=== PATIENT | male | born 1945 | race Caucasian/White ===

== ENCOUNTER 2017-01-25 15:38 | Inpatient (IN) ==
[2017-01-25 17:23] LABS: Hematocrit 27.8 % (37.5-50.1); Immature Granulocytes % 0.4 % (0-4); Immature Platelets 3.8 % (1.1-6.1); Lymphocytes % 5.3 %; Mean Corpuscular HGB Conc 28.8 g/dL (31.6-35.5); Mean Corpuscular Hemoglobin 22.5 pg (28.0-33.3); Mean Corpuscular Volume 78.3 fL (83.0-100.0); Mean Platelet Volume 9.2 fL (9.4-12.4); Monocytes % 10.8 %; Platelet Count 487 K/mcL (140-400); Red Blood Count 3.55 M/mcL (4.19-5.50); Red Cell Distribution Width 17.9 % (11.5-14.5)
[2017-01-25 17:24] LABS: Basophils # 0.1 K/mcL (0.0-0.2); Basophils % 0.6 %; Eosinophils # 0.2 K/mcL (0.0-0.6); Eosinophils % 1.9 %; Lymphocytes # 0.5 K/mcL (0.6-4.6); Monocytes # 1.1 K/mcL (0.0-1.3); Neutrophils # 8.1 K/mcL (1.6-8.9); Nucleated Red Blood Cells 0.3 /100 WBC (0)
--- NOTE | 2017-01-25 17:31 | Emergency Department Note ---
Disposition Clinical Impression: Acute congestive heart failure Qualifiers: Congestive heart failure type: unspecified congestive heart failure type Qualified Code(s): I50.9 - Heart failure, unspecified Disposition: Admitted As Inpatient Condition: Critical General Adult HPI - General Chief complaint: ED Shortness of Breath/Dyspnea Stated complaint: Chest Pain Time Seen by Provider: 01/25/17 15:53 Source: patient, family Nursing Notes Reviewed: Yes Vital Signs Reviewed: Yes - History of Present Illness HPI Narrative: Mr. Diaz, 71-year-old male, presents from home by POV with chief complaint of dyspnea and increased swelling. Both dyspnea and increased edema onset 2 days ago. Patient notes dyspnea with light exertion, improved by rest, not improved with this standard inhaler regimen. Patient and daughter note increased swelling such that he has weeping from his umbilicus. Patient also notes melanotic stools 2 days with increased fatigue, worse with light exertion. Patient is a poor historian with daughter providing history with patient corroborating. PMH: A. fib on Xaralto, CHF, hypertension, hyperlipidemia, COPD, history of noncompliance. Belt Fixer = Dr. Long Pain Scale: 0 - Related Data Home Medications Medication Instructions Recorded Confirmed Amiodarone [Cordarone] 200 mg PO DAILY 04/28/15 01/25/17 Aspirin 81 mg PO DAILY 04/28/15 05/10/16 Atorvastatin [Lipitor] 40 mg PO HS 04/28/15 01/25/17 Citalopram [CeleXA] 40 mg PO DAILY 04/28/15 01/25/17 Docosahexanoic Acid/Epa [Fish Oil 1 each PO DAILY 04/28/15 05/10/16 Concentrate Softgel] Ferrous Sulfate 325 mg PO BIDWM 04/28/15 05/10/16 Furosemide [Lasix] 40 mg PO DAILY 04/28/15 01/25/17 Garlic 1,000 mg PO DAILY 04/28/15 05/10/16 GlipiZIDE XL (24 HR) [Glucotrol XL] 20 mg PO QAM 04/28/15 01/25/17 Insulin DETEMIR [Levemir] 70 units SQ QAM AND QHS 04/28/15 01/25/17 Meclizine [Antivert] 12.5 - 25 tab PO Q4HR PRN 04/28/15 01/25/17 Rivaroxaban [Xarelto] 20 mg PO 1700 04/28/15 01/25/17 SitaGLIPtin [Januvia] 100 mg PO DAILY 04/28/15 01/25/17 Solifenacin Succinate [Vesicare] 5 mg PO DAILY 04/28/15 01/25/17 Albuterol Sulfate [Proair Hfa] 2 puff IH Q4H PRN 01/25/17 01/25/17 Budesonide/Formoterol 160/4.5 2 puff IH BIDR 01/25/17 01/25/17 [Symbicort 160/4.5] Metformin HCl [Glucophage] 1,000 mg PO BIDWM 01/25/17 01/25/17 Metoprolol Succinate 200 mg PO DAILY 01/25/17 01/25/17 Tiotropium [Spiriva] 18 mcg IH 0700 01/25/17 01/25/17 Allergies Allergy/AdvReac Type Severity Reaction Status Date / Time bupropion [From Wellbutrin] Allergy Difficulty Verified 04/28/15 08:53 Breathing codeine Allergy Difficulty Verified 04/28/15 08:53 Breathing Opioids-Meperidine and Allergy Difficulty Verified 04/28/15 08:53 Related Breathing [Opioids-Meperidine & Related] All systems ED: reviewed and negative except as stated. Constitutional: Reports: weakness. Denies: fever, chills Cardiovascular: Reports: chest pain, palpitations, dyspnea on exertion, edema. Denies: syncope Respiratory: Reports: cough. Denies: dyspnea, wheezes, hemoptysis Gastrointestinal: Reports: abdominal pain, nausea, melena. Denies: vomiting, diarrhea, constipation, hematemesis, hematochezia Genitourinary: Denies: urgency, dysuria Musculoskeletal: Denies: back pain Neurological: Reports: weakness. Denies: headache, numbness, paresthesias, vertigo Past Medical History - Past Medical History Medical history: Reports: arthritis, atrial fibrillation, CHF, COPD, diabetes, hyperlipidemia, hypertension Surgical history: Reports: pacemaker/AICD Psychiatric history: Reports: no psych history - Social History Smoking Status: Current every day smoker Smokeless Tobacco Status: No Alcohol use: Reports: none Drug use: Reports: none Physical Exam Vital signs reviewed: Patient tachycardic, tachypneic, systolic of 101, appropriate O2 saturation on room air. General: Patient is alert, oriented, and in moderate distress. 5-6 word conversational dyspnea. HEENT: No facial asymmetry. Head is normocephalic and atraumatic. Trachea midline. Cardiovascular: Heart regular rate and rhythm without clicks, rubs, gallops, or murmurs. No JVD. 3+ pitting edema in the bilateral lower extremities this extends just above the umbilicus with weeping evident from the umbilicus. Respiratory: Symmetric chest rise with poor respiratory effort. Bilateral breath sounds have diffuse wheeze without crackles or rhonchi. Abdomen: Morbidly obese. Bowel sounds present normoactive x-4 quadrants. Abdomen is soft, nondistended, and nontender. Able to assess organomegaly given patient's body habitus. Psych: Patient's affect is appropriate for situation. - General General appearance: alert Course Course Narrative: Initial concern was for congestive heart failure with possible component of pulmonary edema as well as upper GI bleed from xaralto. With assistance, patient was laid supine for rectal exam. He became dyspneic but O2 saturation stayed above 92. When raised to a seated position with heavy assistance, patient was dyspneic, O2 saturations drops to the high 80s. He was placed on 2 L nasal cannula where his O2 sats improved to 97-98%. Informal FOBT positive. formal FOBT negative. Patient is anemic with hemoglobin 8.0. BNP 599. Echo O05/11/2016: Technically suboptimal due to body habitus. Normal LV systolic function with LVEF 55-60%. Mild pulmonary hypertension. Patient vital signs remained stable and O2 saturation is maintained on 2 L nasal cannula. Spoke with the hospitalist, , who agrees to accept the patient. Vital Signs Temperature 97.6 F 01/25/17 15:39 Pulse Rate 106 01/25/17 15:39 Respiratory Rate 20 01/25/17 15:39 Blood Pressure 106/71 01/25/17 15:39 O2 Sat by Pulse Oximetry 95 01/25/17 15:39 Temperature 97.6 F 01/25/17 15:39 Pulse Rate 88 01/25/17 20:00 Respiratory Rate 12 01/25/17 20:00 Blood Pressure 111/65 01/25/17 20:00 O2 Sat by Pulse Oximetry 95 01/25/17 20:00 Oxygen Delivery Oxygen Delivery Nasal Cannula Medical Decision Making - Medical Records Medical records reviewed: Yes I reviewed the patient's medical records. - Lab Data Lab results reviewed: Yes I reviewed the patient's lab results. Result diagrams: 01/25/17 17:03 01/25/17 17:03 Lab Results 01/25/17 01/25/17 01/25/17 Range/Units 17:03 17:03 17:03 WBC 10.0 (4.3-11.1) K/mcL RBC 3.55 L (4.19-5.50) M/mcL Hgb 8.0 L (12.9-16.9) g/dL Hct 27.8 L (37.5-50.1) % MCV 78.3 L (83.0-100.0) fL MCH 22.5 L (28.0-33.3) pg MCHC 28.8 L (31.6-35.5) g/dL RDW 17.9 H (11.5-14.5) % Plt Count 487 H (140-400) K/mcL MPV 9.2 L (9.4-12.4) fL Immature Gran % 0.4 (0-4) % Seg Neutrophils % 81.0 % Lymphocytes % 5.3 % Monocytes % 10.8 % Eosinophils % 1.9 % Basophils % 0.6 % Neutrophils # 8.1 (1.6-8.9) K/mcL Lymphocytes # 0.5 L (0.6-4.6) K/mcL Monocytes # 1.1 (0.0-1.3) K/mcL Eosinophils # 0.2 (0.0-0.6) K/mcL Basophils # 0.1 (0.0-0.2) K/mcL Nucleated RBCs/100 WBC 0.3 H (0) /100 WBC Immature Plt Fraction 3.8 (1.1-6.1) % Sodium 140 (136-145) mEq/L Potassium 3.3 L (3.5-4.5) mEq/L Chloride 103 (98-109) mEq/L Carbon Dioxide 27 (19-29) mEq/L BUN 38 H (8-26) mg/dL Creatinine 1.16 (0.72-1.25) mg/dL Est GFR ( Amer) > 60 (> 60) Est GFR (Non-Af Amer) > 60 (> 60) BUN/Creatinine Ratio 33 H (6-26) Glucose 176 H (70-99) mg/dL Calculated Osmolality 303 H (280-300) Calcium 8.4 L (8.6-10.8) mg/dL Troponin I 0.02 (0-0.03) ng/mL B-Natriuretic Peptide (0-100) pg/mL Stool Occult Blood (Negative) Blood Type Antibody Screen 01/25/17 01/25/17 01/25/17 Range/Units 17:03 17:10 18:33 WBC (4.3-11.1) K/mcL RBC (4.19-5.50) M/mcL Hgb (12.9-16.9) g/dL Hct (37.5-50.1) % MCV (83.0-100.0) fL MCH (28.0-33.3) pg MCHC (31.6-35.5) g/dL RDW (11.5-14.5) % Plt Count (140-400) K/mcL MPV (9.4-12.4) fL Immature Gran % (0-4) % Seg Neutrophils % % Lymphocytes % % Monocytes % % Eosinophils % % Basophils % % Neutrophils # (1.6-8.9) K/mcL Lymphocytes # (0.6-4.6) K/mcL Monocytes # (0.0-1.3) K/mcL Eosinophils # (0.0-0.6) K/mcL Basophils # (0.0-0.2) K/mcL Nucleated RBCs/100 WBC (0) /100 WBC Immature Plt Fraction (1.1-6.1) % Sodium (136-145) mEq/L Potassium (3.5-4.5) mEq/L Chloride (98-109) mEq/L Carbon Dioxide (19-29) mEq/L BUN (8-26) mg/dL Creatinine (0.72-1.25) mg/dL Est GFR ( Amer) (> 60) Est GFR (Non-Af Amer) (> 60) BUN/Creatinine Ratio (6-26) Glucose (70-99) mg/dL Calculated Osmolality (280-300) Calcium (8.6-10.8) mg/dL Troponin I (0-0.03) ng/mL B-Natriuretic Peptide 599 H (0-100) pg/mL Stool Occult Blood Negative (Negative) Blood Type O POSITIVE Antibody Screen NEGATIVE - Radiology Data Radiology results reviewed: Yes I reviewed the patient's radiology results. - EKG Data EKG #1 EKG attestation: Yes I reviewed and interpreted this EKG. EKG results narrative: EKG gated 01/25/17 at 15:44 interpreted as sinus tachycardia with rate of 104. [place] deviation with right bundle branch block. Nonspecific ST T changes. Compared to previous dated 05/10/16 shows no acute ischemic changes comparison. Attestation Statement - Attestation Attestation: I examined this patient and my medical decision-making was reviewed with the DIAMOND SETTER/PA/Advanced Practice Nurse/Resident Physician. I agree with the documented findings, disposition and treatment plan as described except to the extent set forth below. 71 yo male presents with SOB and weakness. Pt reports eating a large meal with a large amt of salt 3 days ago. Pt has since developed bilateral LE edema which has reached his abdomen. Family became concerned when his abdomen started to weep fluid. Pt reports loose stools for the past month which are described as dark but denies hematochezia or melena. Rectal exam by resident revealed an empty rectal vault with guiac positive stool. PE shows bilateral + 3 pitting edema to the LE and +2 pitting edema to the lower abdomen. Hgb 8.0. trop negative. elevated BNP. Pt given lasix in the ED and admitted for CHF and GI bleeding on xarelto.
[2017-01-25 17:36] LABS: BUN/Creatinine Ratio 33 (6-26); Blood Urea Nitrogen 38 mg/dL (8-26); Calcium 8.4 mg/dL (8.6-10.8); Carbon Dioxide 27 mEq/L (19-29); Chloride 103 mEq/L (98-109); Glucose 176 mg/dL (70-99); Osmolality,Calculated 303 (280-300); Potassium 3.3 mEq/L (3.5-4.5); Sodium 140 mEq/L (136-145); eGFR For African Americans > 60 (> 60); eGFR For Non-African Americans > 60 (> 60)
[2017-01-25] MEDS ORDERED: Furosemide 40 MG/4 ML VIAL IVP ONE (19:45)
[2017-01-25] MEDS ORDERED: Acetaminophen 325 MG TABLET PO PRN (21:52)
[2017-01-25] MEDS ORDERED: Ondansetron 4 MG/2 ML VIAL IVP PRN (21:52)
[2017-01-25] MEDS ORDERED: Naloxone 0.4 MG/ML INJ IVP PRN (21:52)
[2017-01-25] MEDS ORDERED: *HR* Dextrose 50 % in Water (Syg) 50 ML SYRINGE IVP PRN (21:57)
[2017-01-25] MEDS ORDERED: D5% in Water 1,000 ML IVC PRN (21:57)
[2017-01-25] MEDS ORDERED: Dextrose Gel 15 GM PO PRN ×2 (21:57)
--- NOTE | 2017-01-25 22:15 | Internal Med History&Physical ---
Date of Encounter: 01/25/17 Time of Encounter: 21:00 Assessment and Plan (1) Congestive heart failure Current visit: Yes Status: Acute presents with weight gain, dyspnea, orthopnea, hypoxia, elevated BNP; start IV Lasix along with fluid restriction, urine output monitoring and daily weights. Continue beta june and check 2D Echocardiogram to assess LVEF. Telemetry monitoring and serial Troponin trending; last Echo from 04/2016 shows 55-60% EF , mild concentric LVH, mild LAD, mild-moderate , indeterminate diastolic function; Qualifiers: Congestive heart failure type: diastolic Congestive heart failure chronicity: acute on chronic Qualified Code(s): I50.33 - Acute on chronic diastolic (congestive) heart failure (2) Anemia Current visit: Yes Status: Acute Microcytic anemia, noted to have baseline Hb around 11-12 last year. Fecal occult blood testing negative. Check iron profile, ferritin levels. May benefit from colonoscopy as outpatient; noted to be on ferrous sulfate supplements as outpatient; continue anticoagulation cautiously; Qualifiers: Anemia type: unspecified type Qualified Code(s): D64.9 - Anemia, unspecified (3) Essential hypertension Current visit: Yes Status: Chronic monitor BP closely and continue home meds; (4) COPD (chronic obstructive pulmonary disease) Current visit: Yes Status: Chronic not noted to be in acute exacerbation; continue PRN bronchodilators, inhaled corticosteroids and supplemental O2 as needed; Qualifiers: COPD type: unspecified COPD Qualified Code(s): J44.9 - Chronic obstructive pulmonary disease, unspecified (5) Afib Current visit: Yes Status: Chronic rate-controlled; continue Metoprolol, 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, 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; s/p PPM placement; Qualifiers: Atrial fibrillation type: chronic Qualified Code(s): I48.2 - Chronic atrial fibrillation (6) Nicotine dependence Current visit: Yes Status: Chronic patient not motivated to quit smoking at this time, smoking cessation counseling done; requests Nicotine transdermal patch; Qualifiers: Nicotine product type: cigarettes Substance use status: uncomplicated Qualified Code(s): F17.210 - Nicotine dependence, cigarettes, uncomplicated (7) Diabetes mellitus Current visit: Yes Status: Chronic Check HbA1C; Accucheck blood glucose monitoring with basal bolus insulin regimen ; diabetic diet; Qualifiers: Diabetes mellitus type: type 2 Diabetes mellitus complication status: with unspecified complications Diabetes mellitus custodial insulin use: with custodial use Qualified Code(s): E11.8 - Type 2 diabetes mellitus with unspecified complications; Z79.4 - group home (current) use of insulin Internal Medicine - H&P: HPI Chief complaint: Shortness of breath Admitted From: Emergency Dept Plans for Post Hospital Care: Home History of present illness: Mr. Diaz is a 71 year old male with history of A. fib status post pacemaker placement, congestive heart failure presents with 2 day history of worsening shortness of breath associated with leg swelling and anasarca. Patient reports no associated chest pain, fever/chills, cough but he does have shortness of breath both at rest and on minimal exertion. He does not use oxygen at home, however he will use an active smoker, with at least 120 pack years of smoking history. He reports taking Lasix at home, however does not remember to take all his medications every day. He does have significant weight gain in the last few days. His last cardiac catheterization has been 2 years ago which has been normal according to the patient. Past Med Surg Social Fam HX - Past Medical History Medical history: arthritis, atrial fibrillation, CHF, COPD, diabetes, hyperlipidemia, hypertension Psychiatric history: no psych history - Past Surgical History Surgical History: orthopedic, other (left femoral ORIF), pacemaker/AICD - Social History Smoking Status: Current every day smoker Packs per day: 2 packs per day for at least 60years Smokeless Tobacco Status: No Alcohol use: none Drug use: none Occupational status: retired Current living situation: Home, With Family Activity Level: Uses cane/walker Recent Out of Country Travel Within the Last 8 Weeks: No Exposure or Possible Exposure to Illness During Travel: No - Family History Mother Family Member Ethnicity: Non- Living Status: Father Hx Family Cardiac Disorders: Yes Internal Medicine - H&P: Meds Amiodarone [Cordarone] 200 mg PO DAILY 04/28/15 [History] Aspirin 81 mg PO DAILY 04/28/15 [History] Atorvastatin [Lipitor] 40 mg PO HS 04/28/15 [History] Citalopram [CeleXA] 40 mg PO DAILY 04/28/15 [History] Docosahexanoic Acid/Epa [Fish Oil Concentrate Softgel] 1 each PO DAILY 04/28/15 [History] Ferrous Sulfate 325 mg PO BIDWM 04/28/15 [History] Furosemide [Lasix] 40 mg PO DAILY 04/28/15 [History] Garlic 1,000 mg PO DAILY 04/28/15 [History] GlipiZIDE XL (24 HR) [Glucotrol XL] 20 mg PO QAM 04/28/15 [History] Insulin DETEMIR [Levemir] 70 units SQ QAM AND QHS 04/28/15 [History] Meclizine [Antivert] 12.5 - 25 tab PO Q4HR PRN 04/28/15 [History] Rivaroxaban [Xarelto] 20 mg PO 1700 04/28/15 [History] SitaGLIPtin [Januvia] 100 mg PO DAILY 04/28/15 [History] Solifenacin Succinate [Vesicare] 5 mg PO DAILY 04/28/15 [History] Albuterol Sulfate [Proair Hfa] 2 puff IH Q4H PRN 01/25/17 [History] Budesonide/Formoterol 160/4.5 [Symbicort 160/4.5] 2 puff IH BIDR 01/25/17 [ History] Metformin HCl [Glucophage] 1,000 mg PO BIDWM 01/25/17 [History] Metoprolol Succinate 200 mg PO DAILY 01/25/17 [History] Tiotropium [Spiriva] 18 mcg IH 0700 01/25/17 [History] Allergies bupropion [From Wellbutrin] Allergy (Verified 04/28/15 08:53) Difficulty Breathing codeine Allergy (Verified 04/28/15 08:53) Difficulty Breathing Opioids-Meperidine and Related [Opioids-Meperidine & Related] Allergy (Verified 04/28/15 08:53) Difficulty Breathing All Systems PM: A 10-system review of systems was performed and is negative for pertinent findings except as documented above in the HPI. - Constitutional Constitutional: weight gain - EENT Eyes: no change in vision, no discharge, no pain, no photophobia Ears: no ear discharge, no ear pain, no tinnitus Nose, mouth and throat: no dysphagia, no nasal discharge, no neck pain, no sore throat - Cardiovascular Cardiovascular ROS IM: dyspnea, dyspnea on exertion, edema, orthopnea - Respiratory Respiratory: dyspnea on exertion - Gastrointestinal Gastrointestinal: no abdominal pain, no diarrhea, no hematemesis, no hematochezia, no melena, no nausea, no vomiting - Musculoskeletal Musculoskeletal ROS IM: no numbness, no tingling - Integumentary Integumentary IM: no rash, no unusual bruising - Neurological Neurological ROS: no confusion, no convulsions, no focal weakness, no numbness, no tingling, no tremor(s) - Hematologic/Lymphatic Hematologic/Lymphatic: no easy bruising - Constitutional Vitals: Temp Pulse Resp BP Pulse Ox 97.6 F 88 20 117/72 95 01/25/17 15:39 01/25/17 20:00 01/25/17 21:39 01/25/17 21:39 01/25/17 20:00 General appearance: Present: mild distress, A&O X 3, morbidly obese (sitting up in chair due to orthopnea), answers questions appropriately - Respiratory Respiratory exam: Present: CTAB (coarse breth sounds B/L, decreased at B/L bases ). Absent: accessory muscle use, rales, rhonchi, wheezes - Cardiovascular Cardiovascular exam: Present: RRR, +S1, +S2. Absent: diastolic murmur, gallop, rubs, systolic murmur - GI/Abdominal GI/Abdominal exam: Present: normal bowel sounds, soft (obese, nontender), no peritoneal signs. Absent: distended, tenderness - Extremities Exam Extremities exam: Present: full ROM, pedal edema (3+ pedal edema B/L), warm, radial pulses palpable and symetrical. Absent: calf tenderness, cyanotic - Neurological Exam Neurological exam: Present: CN II-XII intact, oriented X3, no focal deficits. Absent: pronater drift, facial droop, speech deficit - Skin Skin exam: Present: dry (B/L legs stasis dermatitis), intact Internal Med - H&P Results - Labs CBC & Chem 7: 01/25/17 17:03 01/25/17 17:03 - Diagnostic Studies Chest x-ray Status: image reviewed by me (cardiomegaly, PPM device leads in place, B/L trace pleural effusions, pulmonary edema)
[2017-01-25] MEDS ORDERED: Albuterol 2.5 MG/3 ML NEBULIZER IH PRN (22:33)
[2017-01-25 23:10] LABS: Hemoglobin A1C 6.9 %
[2017-01-26] MEDS ORDERED: *HR* Heparin 5,000 UNIT/ML VIAL SQ SCH
[2017-01-26] MEDS ORDERED: Potassium Chloride Elixir 20 MEQ/15 ML UDC PO ONE (01:19)
[2017-01-26] MEDS: Nicotine 21 MG PATCH.TD24 TD SCH ×2 (01:40→07:42)
[2017-01-26] MEDS: Budesonide/Formoterol 160/4.5 MDI IH SCH ×3 (04:17→19:47)
[2017-01-26 06:00] LABS: Eosinophils % 1.9 %; Hemoglobin 7.3 g/dL (12.9-16.9); Red Cell Distribution Width 17.8 % (11.5-14.5)
[2017-01-26 06:02] LABS: Basophils # 0.1 K/mcL (0.0-0.2); Basophils % 0.6 %; Eosinophils # 0.2 K/mcL (0.0-0.6); Hematocrit 25.4 % (37.5-50.1); Immature Granulocytes % 0.4 % (0-4); Lymphocytes # 0.7 K/mcL (0.6-4.6); Lymphocytes % 7.4 %; Mean Corpuscular HGB Conc 28.7 g/dL (31.6-35.5); Mean Corpuscular Hemoglobin 22.5 pg (28.0-33.3); Mean Corpuscular Volume 78.2 fL (83.0-100.0); Mean Platelet Volume 9.8 fL (9.4-12.4); Monocytes # 1.3 K/mcL (0.0-1.3); Monocytes % 13.3 %; Nucleated Red Blood Cells 0.6 /100 WBC (0); Platelet Count 433 K/mcL (140-400); Red Blood Count 3.25 M/mcL (4.19-5.50); Segmented Neutrophils % 76.4 %
[2017-01-26 06:21] LABS: % Iron Saturation 4 % (20-55); BUN/Creatinine Ratio 34 (6-26); Blood Urea Nitrogen 40 mg/dL (8-26); Calcium 8.2 mg/dL (8.6-10.8); Carbon Dioxide 28 mEq/L (19-29); Chloride 103 mEq/L (98-109); Chol/HDL Ratio 5.2 (0-4.9); Cholesterol 93 mg/dL (< 200); Glucose 147 mg/dL (70-99); HDL Cholesterol 18 mg/dL (40-59); Iron 15 mcg/dL (65-175); LDL Cholesterol,Calculated 44 mg/dL (0-99); Magnesium 1.9 mg/dL (1.6-2.6); Neutrophils # 7.3 K/mcL (1.6-8.9); Osmolality,Calculated 300 (280-300); Potassium 3.2 mEq/L (3.5-4.5); Sodium 139 mEq/L (136-145); Transferrin 305 mg/dL (174-364); Triglycerides 155 mg/dL (< 150); eGFR For African Americans > 60 (> 60); eGFR For Non-African Americans 60 (> 60)
[2017-01-26 06:43] LABS: Ferritin 44 ng/ml (22-275)
[2017-01-26 06:58] LABS: Hypochromasia Present (Not Present)
[2017-01-26 06:59] LABS: Anisocytosis 1+ (Not Present); Poikilocytosis 1+ (Not Present)
[2017-01-26] MEDS: Insulin LISPRO 300 UNITS/3 ML VIAL SQ SCH ×4 (07:27→21:31)
[2017-01-26] MEDS: Tiotropium 18 MCG inhalation IH SCH (07:30)
[2017-01-26] MEDS: Metoprolol XL (24 HR) Succ 50 MG TAB.ER.24H PO SCH (07:42)
[2017-01-26] MEDS: *HR* Amiodarone 200 MG TABLET PO SCH (07:42)
[2017-01-26] MEDS: Insulin DETEMIR 100 UNIT/ML X5UNITS SQ SCH ×2 (07:42→21:31)
[2017-01-26] MEDS ORDERED: Furosemide 40 MG/4 ML VIAL IVP SCH (09:00)
[2017-01-26] MEDS ORDERED: Perflutren Lipid Microsphere 1.3 ML in 0.9 % Sodium Chloride 8.7 ML IVP ONE (10:04)
--- NOTE | 2017-01-26 12:00 | Gastroenterology Consult Note ---
<GuerreroJarad snell Jayashree - Last Filed: 01/26/17 11:57> Date of Encounter: 01/26/17 Time of Encounter: 11:00 - Assessment and plan (1) Anemia Current Visit: Yes Status: Acute Assessment and plan: Hgb 8 on admission and this morning Hgb 7.3. Fecal occult blood test was negative. Iron low at 15 and ferritin 44. Continue to monitor CBC and transfuse PRBC as needed. Plan for EGD and colonoscopy tomorrow. Clear liquid diet today, no red or purple. NPO at midnight. If unable tolerate NuLytely please use MiraLAX prep. If not clear by 6 AM, give 2 tap water enemas. Qualifiers: Anemia type: unspecified type Qualified Code(s): D64.9 - Anemia, unspecified (2) Congestive heart failure Current Visit: Yes Status: Acute Assessment and plan: Management per primary team. Qualifiers: Congestive heart failure type: diastolic Congestive heart failure chronicity: acute on chronic Qualified Code(s): I50.33 - Acute on chronic diastolic (congestive) heart failure (3) COPD (chronic obstructive pulmonary disease) Current Visit: Yes Status: Chronic Assessment and plan: Management per primary team. Qualifiers: COPD type: unspecified COPD Qualified Code(s): J44.9 - Chronic obstructive pulmonary disease, unspecified - Time Spent With Patient Total time spent is greater than 50% in coordination of care (as documented) at patient's floor/unit and/or counseling patient: GI History of Present Illness - Data of Consult Patient: new to practice Consult date: 01/26/17 Requesting Physician: Jaime Bautista - Consult Narrative Reason for consult: Anemia History of present illness: Mr. Diaz is a 71 year old male with PMHx of Afib s/p pacemaker insertion, CHF, COPD, DM, HLD, and HTN who presented to the ED with 2 day history of worsening shortness of breath associated with leg swelling and anasarca. He denies fever, chills, chest pain, abdominal pain, nausea, vomiting, melena, or hematochezia. He uses oxygen at homoe, but also continues to smoke. We have been consulted to evaluate his anemia. Hgb 8 on admission and dropped to 7.3 this AM, baseline Hgb 12-13 last year. Fecal occult blood test negative. Procedures: None NSAIDs: None Anticoagulation: Xarelto Past Med Surg Social Fam HX - Past Medical History Medical history: arthritis, atrial fibrillation, CHF, COPD, diabetes, hyperlipidemia, hypertension Psychiatric history: no psych history - Past Surgical History Surgical History: orthopedic, other, pacemaker/AICD - Social History Smoking Status: Current every day smoker Packs per day: 2 packs per day for at least 60years Smokeless Tobacco Status: No Alcohol use: none Drug use: none - Family History Father Hx Family Cardiac Disorders: Yes Mother Name: Maty Diaz Family Member Ethnicity: Non- Living Status: Age at : 96 Cause of : old age - Gastrointestinal Gastrointestinal: Present: as per HPI - Constitutional Constitutional: as per HPI - EENT Eyes: as per HPI Ears: Present: as per HPI Nose, mouth and throat: Present: as per HPI - Cardiovascular Cardiovascular ROS: Present: as per HPI - Respiratory Respiratory IM: Present: as per HPI - Genitourinary Genitourinary: Absent: change in color, Urinary frequency - Neurological ROS Neurological GI: Present: as per HPI - Hematologic/Lymphatic Hematologic/Lymphatic pediatric: Present: as per HPI - Musculoskeletal Musculoskeletal ROS GI: Present: as per HPI - Integumentary Integumentary GI: Present: as per HPI - Psychiatric ROS Psychiatric GI: Present: as per HPI - Endocrine Endocrine IM: Present: as per HPI - Constitutional Vitals: Temp Pulse Resp BP Pulse Ox 97.5 F L 103 20 113/70 98 01/26/17 11:16 01/26/17 11:16 01/26/17 11:16 01/26/17 11:16 01/26/17 11:16 General appearance: Present: cooperative, A&O X 3, no acute distress, answers questions appropriately - Head Head exam: Present: atraumatic, normocephalic - Eye Eye exam: Present: normal appearance, sclera anicteric - ENT ENT exam: Present: mucous membranes moist - Neck Neck exam general surgery: Present: normal inspection, trachea midline - Respiratory Respiratory exam: Present: decreased breath sounds, rhonchi - Cardiovascular Cardiovascular exam: Present: RRR, +S1, +S2 - GI/Abdominal GI/Abdominal exam: Present: soft, no peritoneal signs. Absent: distended, firm , guarding, tenderness Additional comments: obese - Rectal Rectal exam: Present: deferred - Extremities Exam Extremities exam: Present: warm - Neurological Exam Neurological exam: Present: no focal deficits - Psychiatric Psychiatric exam: Present: normal affect, normal mood - Skin Skin exam: Present: dry, intact, normal color, warm Results - Labs CBC & Chem 7: 01/26/17 04:55 01/26/17 04:55 Labs: Last Result Calcium 8.2 mg/dL (8.6-10.8) L 01/26/17 04:55 Iron 15 mcg/dL (65-175) L 01/26/17 04:55 % Saturation 4 % (20-55) L 01/26/17 04:55 Transferrin 305 mg/dL (174-364) 01/26/17 04:55 Ferritin 44 ng/ml (22-275) 01/26/17 04:55 Troponin I 0.01 ng/mL (0-0.03) 01/26/17 04:55 Triglycerides 155 mg/dL (< 150) H 01/26/17 04:55 Stool Occult Blood Negative (Negative) 01/25/17 17:10 Entire Visit Hgb 7.3 g/dL (12.9-16.9) L 01/26/17 04:55 Hct 25.4 % (37.5-50.1) L 01/26/17 04:55 Ferritin 44 ng/ml (22-275) 01/26/17 04:55 Consult Discharge Plan - Plan Referrals: N/A [Outside] - 02/08/17 10:00 am (PT HAS APPT WITH [facility] ) <Katiana Woodard - Last Filed: 01/26/17 18:02> Date of Encounter: 01/26/17 Time of Encounter: 17:00 - Time Spent With Patient Total time spent is greater than 50% in coordination of care (as documented) at patient's floor/unit and/or counseling patient: GI History of Present Illness - Data of Consult Requesting Physician: Jaime Bautista - Consult Narrative History of present illness: Mr. Diaz is a 71 year old male - Constitutional Vitals: Temp Pulse Resp BP Pulse Ox 97.6 F 98 18 118/78 100 01/26/17 15:08 01/26/17 15:08 01/26/17 15:08 01/26/17 15:08 01/26/17 15:08 Results - Labs CBC & Chem 7: 01/26/17 04:55 01/26/17 17:17 Labs: Last Result Calcium 8.4 mg/dL (8.6-10.8) L 01/26/17 17:17 Iron 15 mcg/dL (65-175) L 01/26/17 04:55 % Saturation 4 % (20-55) L 01/26/17 04:55 Transferrin 305 mg/dL (174-364) 01/26/17 04:55 Ferritin 44 ng/ml (22-275) 01/26/17 04:55 Troponin I 0.01 ng/mL (0-0.03) 01/26/17 11:04 Triglycerides 155 mg/dL (< 150) H 01/26/17 04:55 Stool Occult Blood Negative (Negative) 01/25/17 17:10 Entire Visit Hgb 7.3 g/dL (12.9-16.9) L 01/26/17 04:55 Hct 25.4 % (37.5-50.1) L 01/26/17 04:55 Ferritin 44 ng/ml (22-275) 01/26/17 04:55 - Attending Attestation I examined this patient and my medical decision-making was reviewed with the PHYSICIAN PRACTICE MANAGER/PA/Advanced Practice Nurse/Resident Physician. I agree with the documented findings, disposition and treatment plan as described except to the extent set forth below.
--- NOTE | 2017-01-26 13:49 | ECHO - Doppler Report ---
Echo with Imaging Enhancement Agent Name: Jaime Diaz Date of Study: 01/26/2017 Date: 1945 Ht: 72.0 in Medical Record#: [id number] Age: 71 Wt: 337.0 lb Gender: Male BSA: 2.66 Order #: [id number] Location: [facility] Room #: 2A26 Reading Physician: Jarad Long MD, [facility] Electrician Apprentice: Freddie Collazo RN Ordering Physician: Meredith Rojo MD Primary Physician: Damian Seymour MD Indications: Shortness of breath Impressions: Mild LV systolic dysfunction, LVEF 45%. There is mild global LV hypokinesis. Mild concentric left ventricular hypertrophy. Normal right ventricular size. Mild RV hypokinesis. A device lead was visualized in the right atrium and right ventricle. Mildly dilated left atrium. Moderately calcified aortic valve leaflets. Valve morphology not well visualized. Mild-moderate aortic stenosis. Mild pulmonary hypertension. Estimated RVSP = 45 mmHg. Left Ventricular Wall Motion: Rest Echo Findings The apex, apical inferior, mid inferior, basal inferior, apical anterior, mid anterior, basal anterior, apical septal, mid inferior septal, basal inferior septal, apical lateral, mid anterior lateral, basal anterior lateral, mid anterior septal, mid inferior lateral, basal anterior septal and basal inferior lateral mcconnell were hypokinetic. Findings: Study Quality * Technically sub-optimal due to poor echocardiographic windows. Echo contrast was used. ECG Findings * Sinus tachycardia. Left Ventricle * Mild LV systolic dysfunction, LVEF 45%. There is mild global LV hypokinesis. * Normal LV chamber size. * Mild concentric left ventricular hypertrophy. * Indeterminate diastolic function. Right Ventricle * Normal right ventricular size. Mild RV hypokinesis. Device lead * A device lead was visualized in the right atrium and right ventricle. Left Atrium * Mildly dilated left atrium. Right Atrium * Normal right atrial size. Aorta * Normally sized aortic root. Pericardium * There is no pericardial effusion present. IVC * The IVC is dilated. * < 50% respiratory change. Aortic Valve * Moderately calcified aortic valve leaflets. Valve morphology not well visualized. * Mild-moderate aortic stenosis. * Trace aortic regurgitation. Mitral Valve * Mild mitral annular calcification * No mitral stenosis. * Trace mitral regurgitation. Tricuspid Valve * Tricuspid valve not well visualized. * No tricuspid stenosis. * Trace tricuspid regurgitation. * Mild pulmonary hypertension. Estimated RVSP = 45 mmHg. Pulmonic Valve * Pulmonic valve not well visualized. * No pulmonic stenosis. * Trace pulmonic regurgitation. History Hypertension Diabetes Hypercholesteremia History of Smoking Years 61 Packs 2 Family History of CAD Congestive Heart Failure Pacer/ICD Implant 05/11/2016 a Previous Echo was performed. Contrast: Definity 1.3 ml in 8.7 ml of saline 2 ml. Measurements: BP: 116/ 79 2D Normal Values RVIDd: 3.40 cm IVSd: 1.20 cm 0.6 - 1.0 cm LVIDd: 5.40 cm 3.7 - 5.6 cm LVPWd: 1.20 cm 0.6 - 1.1 cm LVIDs: 4.20 cm 1.5 - 3.6 cm AO: 3.60 cm < 4.0 cm LVOT Diam: 2.00 cm LA volume: 96 Aortic Valve Peak Gal:2.43 m/sec Mean Gal:1.68 m/sec Peak Grad:24.00 mmHg Mean Grad:13.00 mmHg Valve Area:1.38 cm2 Tricuspid Valve TV Regurg Peak Grad: 30.00mmHg TV Regurg Peak Gal: 2.73m/sec Updated by Jarad Long MD, [facility] on 01/26/2017 1:44:31 PM electronically signed on 01/26/2017 1:45:09 PM with status of Final Wall Motion Lopez: 1=Normal, 2=Hypokinesis, 3=Akinesis, 4=Dyskinesis, 5=Aneurysmal, 6=Hyperkinetic, X=Not Visualized (Blank)=Missing
[2017-01-26] MEDS ORDERED: SODIUM CHLORIDE/NAHCO3/KCL/PEG 4,000 ML SOLN.RECON PO ONE (17:00)
[2017-01-26] MEDS ORDERED: *HR* Rivaroxaban 10 MG TABLET PO SCH (17:00)
[2017-01-26] MEDS ORDERED: Polyethylene Glycol 3350 255 GM POWDER PO ONE (17:07)
--- NOTE | 2017-01-26 17:08 | Internal Med Progress Note ---
Date of Encounter: 01/26/17 Time of Encounter: 11:05 - Assessment and plan (1) Congestive heart failure Current Visit: Yes Status: Acute Assessment and plan: Fluid overload with shortness of breath and clear signs of congestion with bilateral pitting edema of lower extremities. Continue with IV Lasix, monitor input and output. Fluid restriction to Repeat echo has been ordered. 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 Continue with amiodarone. Xarelto on hold due to significant anemia and possible endoscopic studies. Qualifiers: Atrial fibrillation type: chronic Qualified Code(s): I48.2 - Chronic atrial fibrillation (4) Diabetes mellitus Current Visit: Yes Status: Chronic Assessment and plan: Continue with insulin therapy. Monitor fingersticks. Qualifiers: Diabetes mellitus type: type 2 Diabetes mellitus complication status: with unspecified complications Diabetes mellitus termite technician insulin use: with termite technician use Qualified Code(s): E11.8 - Type 2 diabetes mellitus with unspecified complications; Z79.4 - detention (current) use of insulin (5) Essential hypertension Current Visit: Yes Status: Chronic (6) Anemia Current Visit: Yes Status: Acute Assessment and plan: A consultation with gastroenterology has been requested, patient to undergo endoscopic studies tomorrow. Colon prep today. Qualifiers: Anemia type: unspecified type Qualified Code(s): D64.9 - Anemia, unspecified (7) Hypokalemia Current Visit: Yes Status: Acute Assessment and plan: Will supplement potassium today, monitor potassium levels. - Subjective Interval history: First encounter with the patient. Patient is complaining of shortness of breath, he is breathing with a nasal cannula. He has gained significant weight. He states that has had black colored stools at home, he is also taking iron pills. - Constitutional Vitals: Temp Pulse Resp BP Pulse Ox 97.6 F 98 18 118/78 100 01/26/17 15:08 01/26/17 15:08 01/26/17 15:08 01/26/17 15:08 01/26/17 15:08 General appearance: Present: mild distress, A&O X 3, morbidly obese (sitting up in chair due to orthopnea), answers questions appropriately - Head Head exam: Present: atraumatic, normocephalic - Eye Eye exam: Present: PERRL, conjuntiva pink, sclera anicteric Pupils: Present: PERRL - Neck Neck exam general surgery: Present: supple, trachea midline. Absent: lymphadenopathy - Respiratory Respiratory exam: Present: decreased breath sounds, rales. Absent: accessory muscle use, rhonchi, wheezes - Cardiovascular Cardiovascular exam: Present: RRR, +S1, +S2. Absent: diastolic murmur, gallop, rubs, systolic murmur - GI/Abdominal GI/Abdominal exam: Present: normal bowel sounds, soft, no peritoneal signs. Absent: distended, tenderness - Extremities Exam Extremities exam: Present: pedal edema, warm, radial pulses palpable and symetrical. Absent: calf tenderness, cyanotic - Neurological Exam Neurological exam: Present: CN II-XII intact, oriented X3, no focal deficits. Absent: pronater drift, facial droop, speech deficit - Skin Skin exam: Present: dry, intact Internal Medicine: Result - Labs CBC & Chem 7: 01/26/17 04:55 01/26/17 04:55 Labs: Short CBC 01/26/17 Range/Units 04:55 WBC 9.6 (4.3-11.1) K/mcL Hgb 7.3 L (12.9-16.9) g/dL Hct 25.4 L (37.5-50.1) % Plt Count 433 H (140-400) K/mcL Neutrophils # 7.3 (1.6-8.9) K/mcL BMP 01/26/17 04:55 Sodium 139 Potassium 3.2 L Chloride 103 Carbon Dioxide 28 BUN 40 H Creatinine 1.19 Glucose 147 H Calcium 8.2 L Cardiac Enzymes 01/25/17 01/26/17 01/26/17 Range/Units 22:11 04:55 11:04 Troponin I 0.01 0.01 0.01 (0-0.03) ng/mL Consult Discharge Plan - Plan Referrals: N/A [Outside] - 02/08/17 10:00 am (PT HAS APPT WITH [facility] )
[2017-01-26] MEDS: Furosemide 40 MG/4 ML VIAL IVP SCH (17:28)
[2017-01-26 17:55] LABS: BUN/Creatinine Ratio 32 (6-26); Blood Urea Nitrogen 37 mg/dL (8-26); Calcium 8.4 mg/dL (8.6-10.8); Carbon Dioxide 24 mEq/L (19-29); Chloride 104 mEq/L (98-109); Glucose 150 mg/dL (70-99); Osmolality,Calculated 302 (280-300); Sodium 140 mEq/L (136-145); eGFR For African Americans > 60 (> 60); eGFR For Non-African Americans > 60 (> 60)
[2017-01-27 05:44] LABS: BUN/Creatinine Ratio 33 (6-26); Blood Urea Nitrogen 31 mg/dL (8-26); Calcium 8.1 mg/dL (8.6-10.8); Carbon Dioxide 23 mEq/L (19-29); Chloride 105 mEq/L (98-109); Glucose 76 mg/dL (70-99); Magnesium 1.8 mg/dL (1.6-2.6); Osmolality,Calculated 293 (280-300); Potassium 3.8 mEq/L (3.5-4.5); Sodium 139 mEq/L (136-145); eGFR For African Americans > 60 (> 60); eGFR For Non-African Americans > 60 (> 60)
[2017-01-27 06:47] LABS: Basophils # 0.1 K/mcL (0.0-0.2); Basophils % 0.5 %; Eosinophils # 0.3 K/mcL (0.0-0.6); Eosinophils % 2.1 %; Hematocrit 25.7 % (37.5-50.1); Hemoglobin 7.7 g/dL (12.9-16.9); Immature Granulocytes % 0.7 % (0-4); Lymphocytes # 0.8 K/mcL (0.6-4.6); Lymphocytes % 6.8 %; Mean Corpuscular Hemoglobin 23.3 pg (28.0-33.3); Mean Corpuscular Volume 77.6 fL (83.0-100.0); Mean Platelet Volume 10.7 fL (9.4-12.4); Monocytes # 1.5 K/mcL (0.0-1.3); Monocytes % 12.7 %; Neutrophils # 9.3 K/mcL (1.6-8.9); Nucleated Red Blood Cells 0.3 /100 WBC (0); Platelet Count 412 K/mcL (140-400); Red Blood Count 3.31 M/mcL (4.19-5.50); Red Cell Distribution Width 17.8 % (11.5-14.5); Segmented Neutrophils % 77.2 %
[2017-01-27] MEDS: Insulin LISPRO 300 UNITS/3 ML VIAL SQ SCH ×4 (07:48→21:24)
[2017-01-27] MEDS: Tiotropium 18 MCG inhalation IH SCH (08:02)
[2017-01-27] MEDS: Budesonide/Formoterol 160/4.5 MDI IH SCH ×2 (08:04→20:09)
[2017-01-27] MEDS: Furosemide 40 MG/4 ML VIAL IVP SCH ×2 (09:20→17:51)
[2017-01-27] MEDS: Nicotine 21 MG PATCH.TD24 TD SCH (09:22)
[2017-01-27] MEDS: *HR* Amiodarone 200 MG TABLET PO SCH (09:22)
[2017-01-27] MEDS: Insulin DETEMIR 100 UNIT/ML X5UNITS SQ SCH ×2 (09:22→21:24)
[2017-01-27] MEDS: Metoprolol XL (24 HR) Succ 50 MG TAB.ER.24H PO SCH (09:23)
[2017-01-27] MEDS ORDERED: *HR* Etomidate 20 MG/10 ML AMPUL IVP ONE (11:04)
[2017-01-27] MEDS ORDERED: *HR* Phenylephrine 10 MG/ML VIAL IVC ONE (11:04)
--- NOTE | 2017-01-27 11:21 | Anesthesia Evaluation PreOp ---
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 History: Syncope (H/O syncope S/P pacemaker) Other Medical History: Diabetes Type II Anesthesia History: No Prior Anesthetic Complications, Past Anesthesia Alcohol Use: none Drug use: marijuana Medications and Allergies Amiodarone [Cordarone] 200 mg PO DAILY 04/28/15 [History] Aspirin 81 mg PO DAILY 04/28/15 [History] Atorvastatin [Lipitor] 40 mg PO HS 04/28/15 [History] Citalopram [CeleXA] 40 mg PO DAILY 04/28/15 [History] Docosahexanoic Acid/Epa [Fish Oil Concentrate Softgel] 1 each PO DAILY 04/28/15 [History] Ferrous Sulfate 325 mg PO BIDWM 04/28/15 [History] Furosemide [Lasix] 40 mg PO DAILY 04/28/15 [History] Garlic 1,000 mg PO DAILY 04/28/15 [History] GlipiZIDE XL (24 HR) [Glucotrol XL] 20 mg PO QAM 04/28/15 [History] Insulin DETEMIR [Levemir] 70 units SQ QAM AND QHS 04/28/15 [History] Meclizine [Antivert] 12.5 - 25 tab PO Q4HR PRN 04/28/15 [History] Rivaroxaban [Xarelto] 20 mg PO 1700 04/28/15 [History] SitaGLIPtin [Januvia] 100 mg PO DAILY 04/28/15 [History] Solifenacin Succinate [Vesicare] 5 mg PO DAILY 04/28/15 [History] Albuterol Sulfate [Proair Hfa] 2 puff IH Q4H PRN 01/25/17 [History] Budesonide/Formoterol 160/4.5 [Symbicort 160/4.5] 2 puff IH BIDR 01/25/17 [ History] Metformin HCl [Glucophage] 1,000 mg PO BIDWM 01/25/17 [History] Metoprolol Succinate 200 mg PO DAILY 01/25/17 [History] Tiotropium [Spiriva] 18 mcg IH 0700 01/25/17 [History] Allergies bupropion [From Wellbutrin] Allergy (Verified 04/28/15 08:53) Difficulty Breathing codeine Allergy (Verified 04/28/15 08:53) Difficulty Breathing Opioids-Meperidine and Related [Opioids-Meperidine & Related] Allergy (Verified 04/28/15 08:53) Difficulty Breathing - Meds/Allergy Pre-op Review Medications Reviewed: Yes Allergies Reviewed: Yes Beta Blockers on Current Med List: Yes If Beta Blockers taken, Date/Time (Last Dose taken): 01/27/2017 at 0923 Anesthesia Results - Labs 01/27/17 04:28 01/27/17 04:28 - Imaging EKG: report reviewed (05/11/2016 electronic ventricular pacemaker, RBBB, LAFB, ST deviation and T wave abnormality) Additional studies: 01/26/2017 Echo LVEF 45% mild LV systolic dysfunction mild global LV hypokinesis mild concentric LVH mild RV hypokinesis device lead visualized in the RA and RV mildly dilated LA mild-moderate Aortic Stenosis moderately calcified AV leaflets mild pulmonary HTN 02/10/2015 Echo Impressions: Technically sub-optimal due to body habitus and clinical status. Difficult to assess LV function despite use of echo contrast. LVEF estimated at 55-60%. There is atypical septal motion consistent with bundle branch block. Moderate concentric left ventricular hypertrophy. Indeterminate diastolic function. Right ventricle not well seen. Appears grossly normal in size and function. Left atrium not well seen. Appears mildly dilated. Aortic valve not well visualized, but appears moderately calcified with restricted motion. No evidence of significant aortic stenosis based on doppler evaluation. Unable to estimate RVSP due to lack of TR jet. 01/22/2015 Stress Impression: Resting ECG demonstrated atrial fibrillation, RBBB. No significant ECG changes with regadenoson. Gated LVEF = 55%. The left ventricle is borderline dilated. Perfusion imaging was negative for ischemia or infarct. Anesthesia Exam Vital Signs/O2 Sat/Glucose, Most Recent Temp Pulse Resp BP Pulse Ox 97.8 F 103 16 108/71 92 01/27/17 07:01 01/27/17 07:01 01/27/17 08:02 01/27/17 08:02 01/27/17 08:02 Blood Glucose* 89 Height: 6'/1.83 m Weight: 337 lbs/153.2 kg NPO (# of Hours): 8 Pain Scale: 0 Pain Scale Used: Numeric (1 - 10) - HEENT Pupil (Motor): EOMI Mallampati: II Teeth: Missing, Poor dentition (multiple broken teeth) Oral Opening: Greater than 3 - MICROWAVE RADIO TECHNICIAN LOC: Oriented MICROWAVE RADIO TECHNICIAN Motor: Normal RUE, Normal LUE, Normal RLE, Normal LLE, Normal Face MICROWAVE RADIO TECHNICIAN Sensory: Normal: RUE, LUE, Face, Deficit: RLE, LLE - Cardiac Rhythm: Regular Murmur: None - Pulmonary Breath Sounds: bilateral Rhonchi Respiratory Effort: Symmetrical Anesthesia Assess/Plan ASA Score: 4 Modified Jeremiah Scale for Level of Consciousness: Cooperative, oriented, and tranquil Anesthetic Plan: MAC Monitoring Plan: Standard Monitors
--- NOTE | 2017-01-27 13:32 | Electrocardiograph Report ---
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
--- NOTE | 2017-01-27 16:51 | Internal Med Progress Note ---
Date of Encounter: 01/27/17 Time of Encounter: 10:50 - Assessment and plan (1) Congestive heart failure Current Visit: Yes Status: Acute Assessment and plan: Fluid overload with shortness of breath and clear signs of congestion with bilateral pitting edema of lower extremities. Continue with IV Lasix, monitor input and output. Fluid restriction Repeat echo revelaed a decreased EF compared to 2016, ef 45%,. 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 Continue with amiodarone. Xarelto restarted. Qualifiers: Atrial fibrillation type: chronic Qualified Code(s): I48.2 - Chronic atrial fibrillation (4) Diabetes mellitus Current Visit: Yes Status: Chronic Qualifiers: Diabetes mellitus type: type 2 Diabetes mellitus complication status: with unspecified complications Diabetes mellitus retirement insulin use: with retirement use Qualified Code(s): E11.8 - Type 2 diabetes mellitus with unspecified complications; Z79.4 - terminal operations manager (current) use of insulin (5) Essential hypertension Current Visit: Yes Status: Chronic (6) Anemia Current Visit: Yes Status: Acute Assessment and plan: A consultation with gastroenterology has been requested, patient had endoscopic studies today, multiple polyps removed, plan to repeat colonoscopy in 3-6 months. EGD revealed normal stomach and duodenum. Will resume xarelto. Continue mointoring hb and for sings of bleeding. Qualifiers: Anemia type: unspecified type Qualified Code(s): D64.9 - Anemia, unspecified (7) Hypokalemia Current Visit: Yes Status: Acute Assessment and plan: resolved, continue to monitor potassium levels. - Subjective Interval history: Patient is complaining of shortness of breath, he is breathing with a nasal cannula. He has gained significant weight. He states that has had black colored stools at home, he is also taking iron pills. feels just abbout the same compared to yesterday. - Constitutional Vitals: Temp Pulse Resp BP Pulse Ox 98.0 F 98 17 98/61 98 01/27/17 16:14 01/27/17 16:14 01/27/17 16:14 01/27/17 16:14 01/27/17 16:14 General appearance: Present: mild distress, A&O X 3, morbidly obese (sitting up in chair due to orthopnea), answers questions appropriately - Head Head exam: Present: atraumatic, normocephalic - Eye Eye exam: Present: PERRL, conjuntiva pink, sclera anicteric Pupils: Present: PERRL - Neck Neck exam general surgery: Present: supple, trachea midline. Absent: lymphadenopathy - Respiratory Respiratory exam: Present: decreased breath sounds. Absent: accessory muscle use, rales, rhonchi, wheezes - Cardiovascular Cardiovascular exam: Present: RRR, +S1, +S2. Absent: diastolic murmur, gallop, rubs, systolic murmur - GI/Abdominal GI/Abdominal exam: Present: normal bowel sounds, soft, no peritoneal signs. Absent: distended, tenderness - Extremities Exam Extremities exam: Present: pedal edema, warm, radial pulses palpable and symetrical. Absent: calf tenderness, cyanotic - Neurological Exam Neurological exam: Present: CN II-XII intact, oriented X3, no focal deficits. Absent: pronater drift, facial droop, speech deficit - Skin Skin exam: Present: dry, intact Internal Medicine: Result - Labs CBC & Chem 7: 01/27/17 04:28 01/27/17 04:28 Labs: Short CBC 01/27/17 Range/Units 04:28 WBC 12.1 H (4.3-11.1) K/mcL Hgb 7.7 L (12.9-16.9) g/dL Hct 25.7 L (37.5-50.1) % Plt Count 412 H (140-400) K/mcL Neutrophils # 9.3 H (1.6-8.9) K/mcL BMP 01/26/17 01/27/17 17:17 04:28 Sodium 140 139 Potassium 4.0 3.8 Chloride 104 105 Carbon Dioxide 24 23 BUN 37 H 31 H Creatinine 1.17 0.93 Glucose 150 H 76 Calcium 8.4 L 8.1 L Consult Discharge Plan - Plan Referrals: CE QUINONES MD [Other] - 02/08/17 10:00 am
[2017-01-27] MEDS: *HR* Rivaroxaban 10 MG TABLET PO SCH (17:52)
[2017-01-27] MEDS: 0.9 % Sodium Chloride 1,000 ML IVC SCH (21:10)
[2017-01-28 03:22] LABS: Basophils # 0.1 K/mcL (0.0-0.2); Basophils % 0.5 %; Eosinophils # 0.2 K/mcL (0.0-0.6); Eosinophils % 1.2 %; Hematocrit 26.9 % (37.5-50.1); Hemoglobin 7.8 g/dL (12.9-16.9); Immature Granulocytes % 0.4 % (0-4); Lymphocytes # 0.8 K/mcL (0.6-4.6); Lymphocytes % 6.3 %; Mean Corpuscular Hemoglobin 22.6 pg (28.0-33.3); Mean Platelet Volume 9.7 fL (9.4-12.4); Monocytes # 1.4 K/mcL (0.0-1.3); Monocytes % 11.7 %; Neutrophils # 9.6 K/mcL (1.6-8.9); Nucleated Red Blood Cells 0.4 /100 WBC (0); Platelet Count 395 K/mcL (140-400); Red Blood Count 3.45 M/mcL (4.19-5.50); Red Cell Distribution Width 17.9 % (11.5-14.5); Segmented Neutrophils % 79.9 %
[2017-01-28 03:38] LABS: BUN/Creatinine Ratio 27 (6-26); Blood Urea Nitrogen 28 mg/dL (8-26); Calcium 8.2 mg/dL (8.6-10.8); Carbon Dioxide 20 mEq/L (19-29); Chloride 107 mEq/L (98-109); Glucose 145 mg/dL (70-99); Osmolality,Calculated 298 (280-300); Potassium 4.4 mEq/L (3.5-4.5); Sodium 140 mEq/L (136-145); eGFR For African Americans > 60 (> 60); eGFR For Non-African Americans > 60 (> 60)
[2017-01-28] MEDS: Tiotropium 18 MCG inhalation IH SCH (07:45)
[2017-01-28] MEDS: Budesonide/Formoterol 160/4.5 MDI IH SCH ×2 (07:45→21:53)
[2017-01-28] MEDS: Insulin LISPRO 300 UNITS/3 ML VIAL SQ SCH ×4 (08:13→21:56)
[2017-01-28] MEDS: Furosemide 40 MG/4 ML VIAL IVP SCH ×2 (08:13→17:39)
[2017-01-28] MEDS: *HR* Amiodarone 200 MG TABLET PO SCH (08:14)
[2017-01-28] MEDS: Insulin DETEMIR 100 UNIT/ML X5UNITS SQ SCH ×2 (08:14→20:40)
[2017-01-28] MEDS: Nicotine 21 MG PATCH.TD24 TD SCH (08:14)
[2017-01-28] MEDS: Metoprolol XL (24 HR) Succ 50 MG TAB.ER.24H PO SCH (08:14)
[2017-01-28] MEDS: 0.9 % Sodium Chloride 1,000 ML IVC SCH (08:15)
--- NOTE | 2017-01-28 15:48 | Internal Med Progress Note ---
Date of Encounter: 01/28/17 Time of Encounter: 13:00 - Assessment and plan (1) Congestive heart failure Current Visit: Yes Status: Acute Assessment and plan: Fluid overload with shortness of breath and clear signs of congestion with bilateral pitting edema of lower extremities. Continue with IV Lasix, monitor input and output. Fluid restriction. Repeat echo revelaed a decreased EF compared to 2016, ef 45%,. continue heart failure management will try to wean him off oxygen and monitor today. pssible discharge tomorrow if stable. monitor weight daily. He was educated in regards to the importance of fluid restriction. 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 Continue with amiodarone. Xarelto restarted. Qualifiers: Atrial fibrillation type: chronic Qualified Code(s): I48.2 - Chronic atrial fibrillation (4) Diabetes mellitus Current Visit: Yes Status: Chronic Assessment and plan: Continue with insulin therapy. Monitor fingersticks. Qualifiers: Diabetes mellitus type: type 2 Diabetes mellitus complication status: with unspecified complications Diabetes mellitus jail insulin use: with jail use Qualified Code(s): E11.8 - Type 2 diabetes mellitus with unspecified complications; Z79.4 - [facility] (current) use of insulin (5) Essential hypertension Current Visit: Yes Status: Chronic (6) Anemia Current Visit: Yes Status: Acute Assessment and plan: A patient had endoscopic studies yesterday, multiple polyps removed, plan to repeat colonoscopy in 3-6 months. EGD revealed normal stomach and duodenum. back on xarelto. Continue mointoring hb and for sings of bleeding. Qualifiers: Anemia type: unspecified type Qualified Code(s): D64.9 - Anemia, unspecified (7) Hypokalemia Current Visit: Yes Status: Acute Assessment and plan: resolved, continue to monitor potassium levels. - Subjective Interval history: Patient is feeling better today, however he is breathing with a nasal cannula and is not on hoe oxygen He has gained significant weight. He states that has had black colored stools at home, he is also taking iron pills. - Constitutional Vitals: Temp Pulse Resp BP Pulse Ox 98.5 F 104 16 94/61 97 01/28/17 15:39 01/28/17 15:39 01/28/17 15:39 01/28/17 15:39 01/28/17 15:39 General appearance: Present: mild distress, A&O X 3, morbidly obese (sitting up in chair due to orthopnea), answers questions appropriately - Head Head exam: Present: atraumatic, normocephalic - Eye Eye exam: Present: PERRL, conjuntiva pink, sclera anicteric Pupils: Present: PERRL - Neck Neck exam general surgery: Present: supple, trachea midline. Absent: lymphadenopathy - Respiratory Respiratory exam: Present: decreased breath sounds. Absent: accessory muscle use, rales, rhonchi, wheezes - Cardiovascular Cardiovascular exam: Present: RRR, +S1, +S2. Absent: diastolic murmur, gallop, rubs, systolic murmur - GI/Abdominal GI/Abdominal exam: Present: normal bowel sounds, soft, no peritoneal signs. Absent: distended, tenderness - Extremities Exam Extremities exam: Present: pedal edema, warm, radial pulses palpable and symetrical. Absent: calf tenderness, cyanotic - Neurological Exam Neurological exam: Present: CN II-XII intact, oriented X3, no focal deficits. Absent: pronater drift, facial droop, speech deficit - Skin Skin exam: Present: dry, intact Internal Medicine: Result - Labs CBC & Chem 7: 01/28/17 02:54 01/28/17 02:54 Labs: Short CBC 01/28/17 Range/Units 02:54 WBC 12.1 H (4.3-11.1) K/mcL Hgb 7.8 L (12.9-16.9) g/dL Hct 26.9 L (37.5-50.1) % Plt Count 395 (140-400) K/mcL Neutrophils # 9.6 H (1.6-8.9) K/mcL BMP 01/28/17 02:54 Sodium 140 Potassium 4.4 Chloride 107 Carbon Dioxide 20 BUN 28 H Creatinine 1.04 Glucose 145 H Calcium 8.2 L - VTE Documentation of Mechanical Device: Intermittent pneumatic compression device Consult Discharge Plan - Plan Referrals: CE QUINONES MD [Other] - 02/08/17 10:00 am
[2017-01-28] MEDS: *HR* Rivaroxaban 10 MG TABLET PO SCH (17:39)
[2017-01-29 04:19] LABS: Nucleated Red Blood Cells 0.3 /100 WBC (0)
[2017-01-29 04:20] LABS: Basophils % 0.3 %; Eosinophils # 0.2 K/mcL (0.0-0.6); Eosinophils % 1.9 %; Hematocrit 25.1 % (37.5-50.1); Hemoglobin 7.3 g/dL (12.9-16.9); Immature Granulocytes % 0.4 % (0-4); Lymphocytes # 0.7 K/mcL (0.6-4.6); Lymphocytes % 5.7 %; Mean Corpuscular HGB Conc 29.1 g/dL (31.6-35.5); Mean Corpuscular Hemoglobin 23.1 pg (28.0-33.3); Mean Corpuscular Volume 79.4 fL (83.0-100.0); Mean Platelet Volume 10.4 fL (9.4-12.4); Monocytes # 1.4 K/mcL (0.0-1.3); Monocytes % 11.7 %; Platelet Count 402 K/mcL (140-400); Red Blood Count 3.16 M/mcL (4.19-5.50)
[2017-01-29 04:26] LABS: Neutrophils # 9.3 K/mcL (1.6-8.9)
[2017-01-29 04:30] LABS: BUN/Creatinine Ratio 24 (6-26); Blood Urea Nitrogen 30 mg/dL (8-26); Calcium 8.1 mg/dL (8.6-10.8); Carbon Dioxide 24 mEq/L (19-29); Chloride 106 mEq/L (98-109); Glucose 229 mg/dL (70-99); Osmolality,Calculated 303 (280-300); Sodium 140 mEq/L (136-145); eGFR For African Americans > 60 (> 60); eGFR For Non-African Americans 57 (> 60)
[2017-01-29 05:38] LABS: Anisocytosis 2+ (Not Present); Hypochromasia Present (Not Present); Microcytosis Present (Not Present); Poikilocytosis 1+ (Not Present)
[2017-01-29 07:39] VITALS: BP 107/56
[2017-01-29] MEDS: Tiotropium 18 MCG inhalation IH SCH (07:43)
[2017-01-29] MEDS: Budesonide/Formoterol 160/4.5 MDI IH SCH (07:43)
[2017-01-29] MEDS: Insulin LISPRO 300 UNITS/3 ML VIAL SQ SCH ×2 (08:51→12:42)
[2017-01-29] MEDS: Insulin DETEMIR 100 UNIT/ML X5UNITS SQ SCH (08:51)
[2017-01-29] MEDS: *HR* Amiodarone 200 MG TABLET PO SCH (08:51)
[2017-01-29] MEDS: Furosemide 40 MG/4 ML VIAL IVP SCH (08:52)
[2017-01-29] MEDS: Metoprolol XL (24 HR) Succ 50 MG TAB.ER.24H PO SCH (08:52)
[2017-01-29] MEDS: Nicotine 21 MG PATCH.TD24 TD SCH (08:52)
--- NOTE | 2017-01-29 11:38 | Discharge Summary ---
Date of Encounter: 01/29/17 Time of Encounter: 11:37 - Discharge Diagnosis (1) Congestive heart failure Priority: Primary Status: Acute Qualifiers: Congestive heart failure type: diastolic Congestive heart failure chronicity: acute on chronic Qualified Code(s): I50.33 - Acute on chronic diastolic (congestive) heart failure (2) DVT prophylaxis Priority: Secondary Status: Acute (3) Afib Priority: Secondary Status: Chronic Qualifiers: Atrial fibrillation type: chronic Qualified Code(s): I48.2 - Chronic atrial fibrillation (4) Diabetes mellitus Priority: Secondary Status: Chronic Qualifiers: Diabetes mellitus type: type 2 Diabetes mellitus complication status: with unspecified complications Diabetes mellitus halfway insulin use: with termination clerk use Qualified Code(s): E11.8 - Type 2 diabetes mellitus with unspecified complications; Z79.4 - termination clerk (current) use of insulin (5) Essential hypertension Priority: Secondary Status: Chronic (6) Anemia Priority: Secondary Status: Acute Qualifiers: Anemia type: unspecified type Qualified Code(s): D64.9 - Anemia, unspecified (7) Hypokalemia Priority: Secondary Status: Acute - Discharge Medications Prescriptions: Furosemide [Lasix] 40 mg PO BID 7 Days Oxygen 1 each .ROUTE AD #1 each Home Medications: Amiodarone [Cordarone] 200 mg PO DAILY 04/28/15 [History] Aspirin 81 mg PO DAILY 04/28/15 [History] Atorvastatin [Lipitor] 40 mg PO HS 04/28/15 [History] Citalopram [CeleXA] 40 mg PO DAILY 04/28/15 [History] Docosahexanoic Acid/Epa [Fish Oil Concentrate Softgel] 1 each PO DAILY 04/28/15 [History] Ferrous Sulfate 325 mg PO BIDWM 04/28/15 [History] Garlic 1,000 mg PO DAILY 04/28/15 [History] GlipiZIDE XL (24 HR) [Glucotrol XL] 20 mg PO QAM 04/28/15 [History] Insulin DETEMIR [Levemir] 70 units SQ QAM AND QHS 04/28/15 [History] Meclizine [Antivert] 12.5 - 25 tab PO Q4HR PRN 04/28/15 [History] Rivaroxaban [Xarelto] 20 mg PO 1700 04/28/15 [History] SitaGLIPtin [Januvia] 100 mg PO DAILY 04/28/15 [History] Solifenacin Succinate [Vesicare] 5 mg PO DAILY 04/28/15 [History] Albuterol Sulfate [Proair Hfa] 2 puff IH Q4H PRN 01/25/17 [History] Budesonide/Formoterol 160/4.5 [Symbicort 160/4.5] 2 puff IH BIDR 01/25/17 [ History] Metformin HCl [Glucophage] 1,000 mg PO BIDWM 01/25/17 [History] Metoprolol Succinate 200 mg PO DAILY 01/25/17 [History] Tiotropium [Spiriva] 18 mcg IH 0700 01/25/17 [History] Furosemide [Lasix] 40 mg PO BID 7 Days 01/29/17 [Rx] Oxygen 1 each .ROUTE AD #1 each 01/29/17 [Rx] Allergies/Adverse Reactions: Allergies bupropion [From Wellbutrin] Allergy (Verified 04/28/15 08:53) Difficulty Breathing codeine Allergy (Verified 04/28/15 08:53) Difficulty Breathing Opioids-Meperidine and Related [Opioids-Meperidine & Related] Allergy (Verified 04/28/15 08:53) Difficulty Breathing Procedures/tests Complete & Pending: Procedures Performed prior 72 hours Category Date Time Status EV echocardiogram w enhance Routine Y 01/26/17 22:02 Completed Date of admission: 01/25/17 21:52 Primary care physician: Ce Quinones, Consults: 01/26/17 08:46 Consult to Gastroenterology [CONS] Routine Consulting Provider: Gastroenterology Margaret Reason for Consult: anemia, hb drop on xarelto Call Completed: No 01/26/17 11:54 Consult to Occupational Therapy [CONS] Stat Comment: Evaluate, develop and implement POC Reason for Consult: eval and tx Consult to Physical Therapy [CONS] Routine Comment: Evaluate, develop and implement POC Reason for Consult: eval and tx 01/27/17 07:05 Consult to Welding Rod Coater [CONS] Routine Reason for SW Consult: therapy rec ecf Discharging clinician: Jaime Bautista Anticipated date of discharge: 01/29/17 - Patient Status Disposition: Home Health Service Condition: Critical Functional capacity at discharge: uses cane/walker Overall status at discharge: patient is progressing back to baseline - Discharge Instructions Follow Up With: CE QUINONES MD [Other] - 02/08/17 10:00 am Additional Instructions: Follow-up with gastroenterology for a repeat colonoscopy in 3-6 months. Follow-up with PCP within a week. Follow-up with cardiology for evaluation of heart failure. - Diet and Activity Activity: as per physical therapy Diet: low salt diet (fluid restriction ) Interval History: Mr. Diaz is a 71 year old male with history of A. fib status post pacemaker placement, congestive heart failure presents with 2 day history of worsening shortness of breath associated with leg swelling and anasarca. Patient reports no associated chest pain, fever/chills, cough but he does have shortness of breath both at rest and on minimal exertion. He does not use oxygen at home, however he will use an active smoker, with at least 120 pack years of smoking history. He reports taking Lasix at home, however does not remember to take all his medications every day. He does have significant weight gain in the last few days. His last cardiac catheterization has been 2 years ago which has been normal according to the patient. Hospital course: Mr. Diaz is a 71 year old male admitted due to fluid overload and shortness of breath with patient who has an underlying diastolic CHF. He did receive Lasix and his urine output has been acceptable. He is not compliant with his fluid restriction, she does not also adhere to his dietary restrictions. He was a story located about importance of diet and fluid restriction during this admission. He had an ejection fraction of 45% during this admission, he is in heart failure management including beta blockers and diuretics. He is a use of noninvasive mechanical ventilation, we continued with his CPAP during this admission. The patient has improved, he bleeding pattern is better now, however he still needs oxygen supplementation, he qualified for long-term oxygen therapy. We will discharge him home with oxygen supplementation via nasal cannula at 2 L/m. We will continue with Lasix 40 mg by mouth twice a day. He has underlying fibrillation and is on Septra for anticoagulation, he is also on amiodarone. We have continue with both medications during this admission. Incidentally, he was found to be anemic, we did anemia workup including both EGD and colonoscopy. Multiple polyps were removed and the colonoscopy and the plan was to repeat the colonoscopy in 3-6 months. His EGD revealed a normal stomach and duodenum. We continue monitoring his hemoglobin and signs of bleeding, his hemoglobin had remained stable. The patient will be discharged home today, she was offered to go to a rehabilitation center, however he declined. He will go home with home services and supplemental oxygen. The patient is at high risk of hospital readmission due to his heart failure, COPD, morbid obesity, obstructive sleep apnea and his poor adherence with dietary and fluid restrictions. - Time Spent with Patient Total time spent providing and/or coordinating discharge services: - Constitutional Vitals: Temp Pulse Resp BP Pulse Ox 97.8 F 107 18 107/56 97 01/29/17 07:30 01/29/17 07:30 01/29/17 07:30 01/29/17 07:30 01/29/17 10:49 General appearance: Present: mild distress, A&O X 3, morbidly obese (sitting up in chair due to orthopnea), answers questions appropriately - Head Head exam: Present: atraumatic, normocephalic - Eye Eye exam: Present: PERRL, conjuntiva pink, sclera anicteric Pupils: Present: PERRL - Neck Neck exam general surgery: Present: supple, trachea midline. Absent: lymphadenopathy - Respiratory Respiratory exam: Present: CTAB. Absent: accessory muscle use, rales, rhonchi, wheezes - Cardiovascular Cardiovascular exam: Present: RRR, +S1, +S2. Absent: diastolic murmur, gallop, rubs, systolic murmur - GI/Abdominal GI/Abdominal exam: Present: normal bowel sounds, soft, no peritoneal signs. Absent: distended, tenderness - Extremities Exam Extremities exam: Present: pedal edema, warm, radial pulses palpable and symetrical. Absent: calf tenderness, cyanotic - Neurological Exam Neurological exam: Present: CN II-XII intact, oriented X3, no focal deficits. Absent: pronater drift, facial droop, speech deficit - Skin Skin exam: Present: dry, intact - VTE Documentation of Mechanical Device: Intermittent pneumatic compression device
--- NOTE | 2017-01-29 12:23 | Physician Discharge Referral ---
Home Health/Hosp Referral Info Transfer to: Home Health - Diagnosis (1) Congestive heart failure Status: Acute (2) DVT prophylaxis Status: Acute (3) Afib Status: Chronic (4) Diabetes mellitus Status: Chronic (5) Essential hypertension Status: Chronic (6) Anemia Status: Acute (7) Hypokalemia Status: Acute - Respiratory Orders Oxygen / L per min (2) Smoking Cessation: Smoking cessation has been advised. For more information, call the [place] Tobacco Quit Line at 5-651-SIYD-NOW. - Diet/Nutrition Diet/Nutrition Orders: Cardiac (fluid restriction) - Activity Activity Orders: Ambulate - Services Needed Following services are medically necessary services: Nursing, Home Health Aide, Physical Therapy - Transfer Medications Prescriptions: Furosemide [Lasix] 40 mg PO BID 7 Days Oxygen 1 each .ROUTE AD #1 each Home Medications: Amiodarone [Cordarone] 200 mg PO DAILY 04/28/15 [History] Aspirin 81 mg PO DAILY 04/28/15 [History] Atorvastatin [Lipitor] 40 mg PO HS 04/28/15 [History] Citalopram [CeleXA] 40 mg PO DAILY 04/28/15 [History] Docosahexanoic Acid/Epa [Fish Oil Concentrate Softgel] 1 each PO DAILY 04/28/15 [History] Ferrous Sulfate 325 mg PO BIDWM 04/28/15 [History] Garlic 1,000 mg PO DAILY 04/28/15 [History] GlipiZIDE XL (24 HR) [Glucotrol XL] 20 mg PO QAM 04/28/15 [History] Insulin DETEMIR [Levemir] 70 units SQ QAM AND QHS 04/28/15 [History] Meclizine [Antivert] 12.5 - 25 tab PO Q4HR PRN 04/28/15 [History] Rivaroxaban [Xarelto] 20 mg PO 1700 04/28/15 [History] SitaGLIPtin [Januvia] 100 mg PO DAILY 04/28/15 [History] Solifenacin Succinate [Vesicare] 5 mg PO DAILY 04/28/15 [History] Albuterol Sulfate [Proair Hfa] 2 puff IH Q4H PRN 01/25/17 [History] Budesonide/Formoterol 160/4.5 [Symbicort 160/4.5] 2 puff IH BIDR 01/25/17 [ History] Metformin HCl [Glucophage] 1,000 mg PO BIDWM 01/25/17 [History] Metoprolol Succinate 200 mg PO DAILY 01/25/17 [History] Tiotropium [Spiriva] 18 mcg IH 0700 01/25/17 [History] Furosemide [Lasix] 40 mg PO BID 7 Days 01/29/17 [Rx] Oxygen 1 each .ROUTE AD #1 each 01/29/17 [Rx] Allergies/Adverse Reactions: Allergies bupropion [From Wellbutrin] Allergy (Verified 04/28/15 08:53) Difficulty Breathing codeine Allergy (Verified 04/28/15 08:53) Difficulty Breathing Opioids-Meperidine and Related [Opioids-Meperidine & Related] Allergy (Verified 04/28/15 08:53) Difficulty Breathing Certification: Further, I certify that my clinical findings support that this patient is homebound (i.e. absences from home require considerable and taxing effort and are for medical reasons or confucianist services or infrequently or short duration when for other reasons) because: Homebound Reason: Leaving home requires considerable and taxing effort due to condition, Severity of cardiac or pulmonary status limits activity tolerance Attestation: My signature below is to certify that this patient is under my care and that I, or nurse practitioner, or a physician's behavioral health assistant working with me, has a face-to -face encounter with this patient.
== END 2017-01-29 13:28 | disposition home health service (06) | DRG 292 ==
LOC: EMEROO 15:38 → 2ANU 15:38
PROVIDERS: ADMIT Internal Medicine; ATTEND Internal Medicine

== ENCOUNTER 2017-02-03 15:06 | Inpatient (IN) ==
[2017-02-03] MEDS ORDERED: Furosemide 40 MG/4 ML VIAL IVP ONE ×2 (15:16→22:09)
--- NOTE | 2017-02-03 15:18 | Emergency Department Note ---
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 use Qualified Code(s): E11.649 - Type 2 diabetes mellitus with hypoglycemia without coma Disposition: Admitted As Inpatient Condition: Good SOB HPI - General Chief Complaint: ED Shortness of Breath/Dyspnea Stated Complaint: SOB / Edema Time Seen by Provider: 02/03/17 15:10 Source: patient Limitations: no limitations Nursing Notes Reviewed: Yes Vital Signs Reviewed: Yes - Related Data Home Medications Medication Instructions Recorded Confirmed Amiodarone [Cordarone] 200 mg PO DAILY 04/28/15 02/03/17 Aspirin 81 mg PO DAILY 04/28/15 02/03/17 Atorvastatin [Lipitor] 40 mg PO HS 04/28/15 02/03/17 Citalopram [CeleXA] 40 mg PO DAILY 04/28/15 02/03/17 Docosahexanoic Acid/Epa [Fish Oil 1 each PO DAILY 04/28/15 02/03/17 Concentrate Softgel] Ferrous Sulfate 325 mg PO BIDWM 04/28/15 02/03/17 Garlic 1,000 mg PO DAILY 04/28/15 02/03/17 GlipiZIDE XL (24 HR) [Glucotrol XL] 20 mg PO QAM 04/28/15 02/03/17 Insulin DETEMIR [Levemir] 70 units SQ QAM AND QHS 04/28/15 02/03/17 Meclizine [Antivert] 12.5 - 25 tab PO Q4HR PRN 04/28/15 02/03/17 Rivaroxaban [Xarelto] 20 mg PO 1700 04/28/15 02/03/17 SitaGLIPtin [Januvia] 100 mg PO DAILY 04/28/15 02/03/17 Albuterol Sulfate [Proair Hfa] 2 puff IH Q4H PRN 01/25/17 02/03/17 Budesonide/Formoterol 160/4.5 2 puff IH BIDR 01/25/17 02/03/17 [Symbicort 160/4.5] Metformin HCl [Glucophage] 1,000 mg PO BIDWM 01/25/17 02/03/17 Metoprolol Succinate 200 mg PO DAILY 01/25/17 02/03/17 Tiotropium [Spiriva] 18 mcg IH 0700 01/25/17 02/03/17 Oxygen 2 l NS CONT 02/03/17 02/03/17 Previous Rx's Medication Instructions Recorded Furosemide [Lasix] 40 mg PO BID 7 Days 01/29/17 Allergies Allergy/AdvReac Type Severity Reaction Status Date / Time bupropion [From Wellbutrin] Allergy Difficulty Verified 04/28/15 08:53 Breathing codeine Allergy Difficulty Verified 04/28/15 08:53 Breathing Opioids-Meperidine and Allergy Difficulty Verified 04/28/15 08:53 Related Breathing [Opioids-Meperidine & Related] Past Medical History - Past Medical History Medical history: Reports: arthritis, atrial fibrillation, CHF, COPD, diabetes, hyperlipidemia, hypertension Surgical history: Reports: orthopedic, other, pacemaker/AICD Psychiatric history: Reports: no psych history - Social History Smoking Status: Current every day smoker Smokeless Tobacco Status: No Alcohol use: Reports: none Drug use: Reports: marijuana Physical Exam - General Limitations: no limitations General appearance: alert Course Vital Signs Temperature 98.9 F 02/03/17 15:10 Pulse Rate 75 02/03/17 15:10 Respiratory Rate 22 02/03/17 15:10 Blood Pressure 137/80 02/03/17 15:10 O2 Sat by Pulse Oximetry 93 02/03/17 15:10 Temperature 98.9 F 02/03/17 15:10 Pulse Rate 68 02/03/17 17:06 Respiratory Rate 20 02/03/17 17:58 Blood Pressure 125/71 02/03/17 17:58 O2 Sat by Pulse Oximetry 92 02/03/17 17:06 Oxygen Delivery Oxygen Delivery Room Air Shortness of Breath/Dyspnea - MDM Narrative Medical decision making narrative: I examined this patient and my medical decision-making was reviewed with the LITIGATION ASSISTANT/PA/Advanced Practice Nurse/Resident Physician. I agree with the documented findings, disposition and treatment plan as described except to the extent set forth below. I evaluated this patient with Dr. Beaulieu, on arrival with EMS, I agree with her evaluation and management plan, supervise care the patient had stay. Patient was just released from the hospital with CHF and he is continuing the same symptoms dyspnea he has edema in his lower extremities he states she is hungry denies any chest pain or fevers no cough here. We will order a chest x-ray and labs review his previous notes from his last admission to review his progress from the last time used during the hospital and most likely he will need admission. He is in agreement with this plan. Chest X-Ray 02/03/17 15:16 IMPRESSION: 1. Stable pulmonary edema, consistent with CHF. 2. Mild increase in size of a small right pleural effusion. D/ / Julio Musa MD / Julio Musa MD Interpreting Provider: Julio Musa MD 1630 hrs. Patient's blood sugar comes back at 28 were given him some D50 his slightly altered but is awake and talking to us. No one getting some food also. 1647 hrs. patient doing better after getting D50. Labs are back he has chronic anemia. His INR is elevated due to Coumadin. He does have congestive heart failure on his chest x-ray and his BNP is elevated. We will Bring him into the hospital. #1 is acute exacerbation of CHF, she has pulmonary edema, number threes hypoglycemia. Patient's agreement with this plan. His critical care time exclusive of billable procedures is 30 minutes. 1720 hrs.: Social workers talk with family. The patient is on home health care to be a senior care. Patient did not eat today but did have his diabetic meds. Hence the reason for his low blood sugar. Which is struck on the 40s again. We gave him a diet but he did not really eat much of that. Another dose of D50 here talked with the hospital spine will be metastatic from floor and he can be seen there and encourage him to eat or might need a dextrose infusion. His creatinine is normal. 1805 hrs. patient's eat and his mentation has done well. He is agreeing with the admission. - Lab Data Result diagrams: 02/03/17 15:57 02/03/17 15:57 Lab Results 02/03/17 02/03/17 02/03/17 Range/Units 15:57 15:57 15:57 WBC 13.1 H (4.3-11.1) K/mcL RBC 3.45 L (4.19-5.50) M/mcL Hgb 7.6 L (12.9-16.9) g/dL Hct 26.1 L (37.5-50.1) % MCV 75.7 L (83.0-100.0) fL MCH 22.0 L (28.0-33.3) pg MCHC 29.1 L (31.6-35.5) g/dL RDW 17.7 H (11.5-14.5) % Plt Count 513 H (140-400) K/mcL MPV 9.2 L (9.4-12.4) fL Immature Gran % 0.5 (0-4) % Seg Neutrophils % 82.2 % Lymphocytes % 4.6 % Monocytes % 11.6 % Eosinophils % 0.8 % Basophils % 0.3 % Neutrophils # 10.8 H (1.6-8.9) K/mcL Lymphocytes # 0.6 (0.6-4.6) K/mcL Monocytes # 1.5 H (0.0-1.3) K/mcL Eosinophils # 0.1 (0.0-0.6) K/mcL Basophils # 0.0 (0.0-0.2) K/mcL Nucleated RBCs/100 WBC 0.5 H (0) /100 WBC PT (9.4-12.1) Seconds INR APTT (26.0-36.0) Seconds Sodium 142 (136-145) mEq/L Potassium 2.9 L (3.5-4.5) mEq/L Chloride 105 (98-109) mEq/L Carbon Dioxide 26 (19-29) mEq/L BUN 39 H (8-26) mg/dL Creatinine 1.03 (0.72-1.25) mg/dL Est GFR ( Amer) > 60 (> 60) Est GFR (Non-Af Amer) > 60 (> 60) BUN/Creatinine Ratio 38 H (6-26) Glucose 24 L* (70-99) mg/dL POC Glucose (58-89) Calculated Osmolality 299 (280-300) Lactic Acid 1.9 (0.5-2.2) mmol/L Calcium 8.4 L (8.6-10.8) mg/dL Total Bilirubin 0.4 (0.2-1.2) mg/dL Direct Bilirubin 0.3 (0.0-0.5) mg/dL Indirect Bilirubin 0.1 (0.0-1.2) mg/dL AST 31 (5-34) Units/L ALT 23 (0-55) Units/L Alkaline Phosphatase 93 (38-126) Units/L Troponin I (0-0.03) ng/mL B-Natriuretic Peptide (0-100) pg/mL Serum Total Protein 6.1 (6.0-8.3) g/dL Albumin 2.4 L (3.5-5.0) g/dL Globulin 3.7 H (2.4-3.5) g/dL Albumin/Globulin Ratio 0.6 L (1.1-2.2) Urine Color (Yellow) Urine Clarity (Clear) Urine pH (5.0-8.0) pH Units Ur Specific [place] (1.010-1.025) Urine Protein (Neg-Trace) mg/dL Urine Glucose (UA) (Normal) mg/dL Urine Ketones (Negative) mg/dL Urine Blood (Negative) Urine Nitrite (Negative) Urine Bilirubin (Negative) Urine Urobilinogen (Normal) mg/dL Ur Leukocyte Esterase (Negative) Ur Culture Indicated? (NO) 02/03/17 02/03/17 02/03/17 Range/Units 15:57 15:57 15:57 WBC (4.3-11.1) K/mcL RBC (4.19-5.50) M/mcL Hgb (12.9-16.9) g/dL Hct (37.5-50.1) % MCV (83.0-100.0) fL MCH (28.0-33.3) pg MCHC (31.6-35.5) g/dL RDW (11.5-14.5) % Plt Count (140-400) K/mcL MPV (9.4-12.4) fL Immature Gran % (0-4) % Seg Neutrophils % % Lymphocytes % % Monocytes % % Eosinophils % % Basophils % % Neutrophils # (1.6-8.9) K/mcL Lymphocytes # (0.6-4.6) K/mcL Monocytes # (0.0-1.3) K/mcL Eosinophils # (0.0-0.6) K/mcL Basophils # (0.0-0.2) K/mcL Nucleated RBCs/100 WBC (0) /100 WBC PT 34.1 H (9.4-12.1) Seconds INR 3.1 APTT 36.1 H (26.0-36.0) Seconds Sodium (136-145) mEq/L Potassium (3.5-4.5) mEq/L Chloride (98-109) mEq/L Carbon Dioxide (19-29) mEq/L BUN (8-26) mg/dL Creatinine (0.72-1.25) mg/dL Est GFR ( Amer) (> 60) Est GFR (Non-Af Amer) (> 60) BUN/Creatinine Ratio (6-26) Glucose (70-99) mg/dL POC Glucose (58-89) Calculated Osmolality (280-300) Lactic Acid (0.5-2.2) mmol/L Calcium (8.6-10.8) mg/dL Total Bilirubin (0.2-1.2) mg/dL Direct Bilirubin (0.0-0.5) mg/dL Indirect Bilirubin (0.0-1.2) mg/dL AST (5-34) Units/L ALT (0-55) Units/L Alkaline Phosphatase (38-126) Units/L Troponin I 0.01 (0-0.03) ng/mL B-Natriuretic Peptide 676 H (0-100) pg/mL Serum Total Protein (6.0-8.3) g/dL Albumin (3.5-5.0) g/dL Globulin (2.4-3.5) g/dL Albumin/Globulin Ratio (1.1-2.2) Urine Color (Yellow) Urine Clarity (Clear) Urine pH (5.0-8.0) pH Units Ur Specific [place] (1.010-1.025) Urine Protein (Neg-Trace) mg/dL Urine Glucose (UA) (Normal) mg/dL Urine Ketones (Negative) mg/dL Urine Blood (Negative) Urine Nitrite (Negative) Urine Bilirubin (Negative) Urine Urobilinogen (Normal) mg/dL Ur Leukocyte Esterase (Negative) Ur Culture Indicated? (NO) 02/03/17 02/03/17 02/03/17 Range/Units 16:29 16:31 16:47 WBC (4.3-11.1) K/mcL RBC (4.19-5.50) M/mcL Hgb (12.9-16.9) g/dL Hct (37.5-50.1) % MCV (83.0-100.0) fL MCH (28.0-33.3) pg MCHC (31.6-35.5) g/dL RDW (11.5-14.5) % Plt Count (140-400) K/mcL MPV (9.4-12.4) fL Immature Gran % (0-4) % Seg Neutrophils % % Lymphocytes % % Monocytes % % Eosinophils % % Basophils % % Neutrophils # (1.6-8.9) K/mcL Lymphocytes # (0.6-4.6) K/mcL Monocytes # (0.0-1.3) K/mcL Eosinophils # (0.0-0.6) K/mcL Basophils # (0.0-0.2) K/mcL Nucleated RBCs/100 WBC (0) /100 WBC PT (9.4-12.1) Seconds INR APTT (26.0-36.0) Seconds Sodium (136-145) mEq/L Potassium (3.5-4.5) mEq/L Chloride (98-109) mEq/L Carbon Dioxide (19-29) mEq/L BUN (8-26) mg/dL Creatinine (0.72-1.25) mg/dL Est GFR ( Amer) (> 60) Est GFR (Non-Af Amer) (> 60) BUN/Creatinine Ratio (6-26) Glucose (70-99) mg/dL POC Glucose 24 L* 23 L* 104 H (58-89) Calculated Osmolality (280-300) Lactic Acid (0.5-2.2) mmol/L Calcium (8.6-10.8) mg/dL Total Bilirubin (0.2-1.2) mg/dL Direct Bilirubin (0.0-0.5) mg/dL Indirect Bilirubin (0.0-1.2) mg/dL AST (5-34) Units/L ALT (0-55) Units/L Alkaline Phosphatase (38-126) Units/L Troponin I (0-0.03) ng/mL B-Natriuretic Peptide (0-100) pg/mL Serum Total Protein (6.0-8.3) g/dL Albumin (3.5-5.0) g/dL Globulin (2.4-3.5) g/dL Albumin/Globulin Ratio (1.1-2.2) Urine Color (Yellow) Urine Clarity (Clear) Urine pH (5.0-8.0) pH Units Ur Specific [place] (1.010-1.025) Urine Protein (Neg-Trace) mg/dL Urine Glucose (UA) (Normal) mg/dL Urine Ketones (Negative) mg/dL Urine Blood (Negative) Urine Nitrite (Negative) Urine Bilirubin (Negative) Urine Urobilinogen (Normal) mg/dL Ur Leukocyte Esterase (Negative) Ur Culture Indicated? (NO) 02/03/17 Range/Units 17:03 WBC (4.3-11.1) K/mcL RBC (4.19-5.50) M/mcL Hgb (12.9-16.9) g/dL Hct (37.5-50.1) % MCV (83.0-100.0) fL MCH (28.0-33.3) pg MCHC (31.6-35.5) g/dL RDW (11.5-14.5) % Plt Count (140-400) K/mcL MPV (9.4-12.4) fL Immature Gran % (0-4) % Seg Neutrophils % % Lymphocytes % % Monocytes % % Eosinophils % % Basophils % % Neutrophils # (1.6-8.9) K/mcL Lymphocytes # (0.6-4.6) K/mcL Monocytes # (0.0-1.3) K/mcL Eosinophils # (0.0-0.6) K/mcL Basophils # (0.0-0.2) K/mcL Nucleated RBCs/100 WBC (0) /100 WBC PT (9.4-12.1) Seconds INR APTT (26.0-36.0) Seconds Sodium (136-145) mEq/L Potassium (3.5-4.5) mEq/L Chloride (98-109) mEq/L Carbon Dioxide (19-29) mEq/L BUN (8-26) mg/dL Creatinine (0.72-1.25) mg/dL Est GFR ( Amer) (> 60) Est GFR (Non-Af Amer) (> 60) BUN/Creatinine Ratio (6-26) Glucose (70-99) mg/dL POC Glucose (58-89) Calculated Osmolality (280-300) Lactic Acid (0.5-2.2) mmol/L Calcium (8.6-10.8) mg/dL Total Bilirubin (0.2-1.2) mg/dL Direct Bilirubin (0.0-0.5) mg/dL Indirect Bilirubin (0.0-1.2) mg/dL AST (5-34) Units/L ALT (0-55) Units/L Alkaline Phosphatase (38-126) Units/L Troponin I (0-0.03) ng/mL B-Natriuretic Peptide (0-100) pg/mL Serum Total Protein (6.0-8.3) g/dL Albumin (3.5-5.0) g/dL Globulin (2.4-3.5) g/dL Albumin/Globulin Ratio (1.1-2.2) Urine Color Yellow (Yellow) Urine Clarity Clear (Clear) Urine pH 6.0 (5.0-8.0) pH Units Ur Specific [place] 1.011 (1.010-1.025) Urine Protein Negative (Neg-Trace) mg/dL Urine Glucose (UA) Normal (Normal) mg/dL Urine Ketones Negative (Negative) mg/dL Urine Blood Negative (Negative) Urine Nitrite Negative (Negative) Urine Bilirubin Negative (Negative) Urine Urobilinogen Normal (Normal) mg/dL Ur Leukocyte Esterase Negative (Negative) Ur Culture Indicated? NO (NO)
--- NOTE | 2017-02-03 15:25 | Emergency Department Note ---
Disposition Clinical Impression: Hypokalemia Acute congestive heart failure Qualifiers: Congestive heart failure type: systolic Qualified Code(s): I50.21 - Acute systolic (congestive) heart failure Diabetes mellitus Qualifiers: Diabetes mellitus type: type 2 Diabetes mellitus complication status: with hypoglycemia Diabetes mellitus complication detail: without coma Diabetes mellitus ferry terminal agent insulin use: without ferry terminal agent use Qualified Code(s): E11.649 - Type 2 diabetes mellitus with hypoglycemia without coma Disposition: Admitted As Inpatient Condition: Good Referrals: NO,PCP [Non-Partnered Physician] - Forms: ED Satisfaction Letter Time of Disposition: 16:36 General Adult HPI - General Chief complaint: ED Shortness of Breath/Dyspnea Stated complaint: SOB / Edema Time Seen by Provider: 02/03/17 15:10 Source: patient Limitations: no limitations Nursing Notes Reviewed: Yes Vital Signs Reviewed: Yes - History of Present Illness HPI Narrative: Two-day history of increasing shortness of breath. Dyspnea on exertion as well as resting. Denies any chest pain. 7 history of CHF with an ejection fraction of 45%. Was recently discharged and felt better on Tuesday 6 days ago. Does have a nonproductive cough. Pain Scale: 0 - Related Data Home Medications Medication Instructions Recorded Confirmed Amiodarone [Cordarone] 200 mg PO DAILY 04/28/15 02/03/17 Aspirin 81 mg PO DAILY 04/28/15 02/03/17 Atorvastatin [Lipitor] 40 mg PO HS 04/28/15 02/03/17 Citalopram [CeleXA] 40 mg PO DAILY 04/28/15 02/03/17 Docosahexanoic Acid/Epa [Fish Oil 1 each PO DAILY 04/28/15 02/03/17 Concentrate Softgel] Ferrous Sulfate 325 mg PO BIDWM 04/28/15 02/03/17 Garlic 1,000 mg PO DAILY 04/28/15 02/03/17 GlipiZIDE XL (24 HR) [Glucotrol XL] 20 mg PO QAM 04/28/15 02/03/17 Insulin DETEMIR [Levemir] 70 units SQ QAM AND QHS 04/28/15 02/03/17 Meclizine [Antivert] 12.5 - 25 tab PO Q4HR PRN 04/28/15 02/03/17 Rivaroxaban [Xarelto] 20 mg PO 1700 04/28/15 02/03/17 SitaGLIPtin [Januvia] 100 mg PO DAILY 04/28/15 02/03/17 Albuterol Sulfate [Proair Hfa] 2 puff IH Q4H PRN 01/25/17 02/03/17 Budesonide/Formoterol 160/4.5 2 puff IH BIDR 01/25/17 02/03/17 [Symbicort 160/4.5] Metformin HCl [Glucophage] 1,000 mg PO BIDWM 01/25/17 02/03/17 Metoprolol Succinate 200 mg PO DAILY 01/25/17 02/03/17 Tiotropium [Spiriva] 18 mcg IH 0700 01/25/17 02/03/17 Oxygen 2 l NS CONT 02/03/17 02/03/17 Previous Rx's Medication Instructions Recorded Furosemide [Lasix] 40 mg PO BID 7 Days 01/29/17 Allergies Allergy/AdvReac Type Severity Reaction Status Date / Time bupropion [From Wellbutrin] Allergy Difficulty Verified 04/28/15 08:53 Breathing codeine Allergy Difficulty Verified 04/28/15 08:53 Breathing Opioids-Meperidine and Allergy Difficulty Verified 04/28/15 08:53 Related Breathing [Opioids-Meperidine & Related] All systems ED: reviewed and negative except as stated. Constitutional: Denies: fever, chills ENT ED: Denies: congestion Cardiovascular: Reports: dyspnea on exertion. Denies: chest pain, palpitations , syncope Respiratory: Reports: cough (Nonproductive), dyspnea (2 days) Gastrointestinal: Denies: abdominal pain, nausea, vomiting, diarrhea, hematemesis, melena, hematochezia Genitourinary: Denies: urgency, dysuria, frequency, hematuria Musculoskeletal: Denies: back pain, neck pain, joint swelling Neurological: Denies: headache Past Medical History - Past Medical History Medical history: Reports: arthritis, atrial fibrillation, CHF, COPD, diabetes, hyperlipidemia, hypertension Surgical history: Reports: orthopedic, other, pacemaker/AICD Psychiatric history: Reports: no psych history - Social History Smoking Status: Current every day smoker Smokeless Tobacco Status: No Alcohol use: Reports: none Drug use: Reports: marijuana Physical Exam - General Limitations: no limitations General appearance: alert, in distress (In mild respiratory distress) - Head Head exam: atraumatic, normocephalic - Eye Eye exam: Present: normal appearance, PERRL, EOMI, periorbital swelling (Mild). Absent: scleral icterus - ENT ENT exam: normal exam, normal oropharynx, mucous membranes moist - Neck Neck exam: Present: normal inspection, full ROM, trachea midline. Absent: tenderness, meningismus - Chest Chest inspection: Present: normal inspection, symmetric chest wall rise. Absent : tenderness - Respiratory Respiratory exam: Present: respiratory distress ( lung field. mild ), other ( Rales in right lung yanez Are and lower. Rales and lower left) - Cardiovascular Cardiovascular exam: Present: regular rate, normal rhythm, normal heart sounds - Abdominal Exam Abdominal exam: Present: soft, Non-Tender, normal bowel sounds, other (Edema to umbilicus) - Extremities Exam Extremities exam: Present: full ROM, pedal edema (From pedal to umbilicus pitting edema), other (Skin changes consistent with venous stasis.). Absent: tenderness - Back Exam Back exam: Present: normal inspection, full ROM. Absent: tenderness - Neurological Exam Neurological exam: Present: alert, oriented X3 - Psychiatric Psychiatric exam: Present: normal affect, normal mood - Skin Skin exam: Present: warm, dry, intact, normal color. Absent: rash, cyanosis, diaphoresis Course Course Narrative: Male patient presented to the emergency department by EMS. He is complaining of increasing shortness of breath over the past 2 days. Does have a history of CHF. Was recently discharged from this hospital for a CHF exacerbation 6 days ago. States that he initially felt better however has declined over the past 2 days. He states that he is taking his medication as prescribed is unaware of what his medication is. He also states he wears a BiPAP occasionally while at home during the day and night. He does appear edematous on arrival to the room. She also appears mildly dyspneic. He has several requests while I am in there. He is requesting water ice and ice cream. We discussed that we will hold off on feeding him until we get some lab work back. He has rales in his right lung yanez upper and lower. He also has rails in his left lower lung base. Patient is edematous to his umbilicus. His heart tones are normal. His abdomen is soft however does have pitting edema. We will get a cardiac workup on patient as well as a chest x-ray. Will provide him with 40 mg of IV Lasix at this time. I anticipate admission. - Reevaluation(s) Reevaluation #1: Patient is resting at bedside drooling. He is able to make eye contact however is not mentating appropriately. Blood sugar was checked and found to be 24. We will give an amp of D50 in order him a cardiac diet tray. Time: 16:32 Reevaluation #2: Patient appears to be having a CHF exacerbation. He is hypokalemic. We will give him potassium orally is here as well as Lasix due to the fluid overload. We have also provided him with a diet due to his hypoglycemia. We will admit him for this CHF exacerbation. Our health care social worker spoke with the family. They stated that he was given his Levemir and has not been eating very well prior to leaving the house. His blood sugars dropped to 46 again. We did provide him with a diet that he keeps going to go to sleep before he is eating. We have a nurse at bedside and will give him another amp of D50 and encourage him to eat. The to the hospital. Time: 17:22 - Consultations Consultation #1: Natty Mcmanus nurse practitioner except patient stable condition. Time: 17:27 Vital Signs Temperature 98.9 F 02/03/17 15:10 Pulse Rate 75 02/03/17 15:10 Respiratory Rate 22 02/03/17 15:10 Blood Pressure 137/80 02/03/17 15:10 O2 Sat by Pulse Oximetry 93 02/03/17 15:10 Temperature 98.9 F 02/03/17 15:10 Pulse Rate 68 02/03/17 17:06 Respiratory Rate 20 02/03/17 17:06 Blood Pressure 120/47 02/03/17 17:06 O2 Sat by Pulse Oximetry 92 02/03/17 17:06 Oxygen Delivery Oxygen Delivery Room Air Medical Decision Making - Lab Data Result diagrams: 02/03/17 15:57 02/03/17 15:57 Lab Results 02/03/17 02/03/17 02/03/17 Range/Units 15:57 15:57 15:57 WBC 13.1 H (4.3-11.1) K/mcL RBC 3.45 L (4.19-5.50) M/mcL Hgb 7.6 L (12.9-16.9) g/dL Hct 26.1 L (37.5-50.1) % MCV 75.7 L (83.0-100.0) fL MCH 22.0 L (28.0-33.3) pg MCHC 29.1 L (31.6-35.5) g/dL RDW 17.7 H (11.5-14.5) % Plt Count 513 H (140-400) K/mcL MPV 9.2 L (9.4-12.4) fL Immature Gran % 0.5 (0-4) % Seg Neutrophils % 82.2 % Lymphocytes % 4.6 % Monocytes % 11.6 % Eosinophils % 0.8 % Basophils % 0.3 % Neutrophils # 10.8 H (1.6-8.9) K/mcL Lymphocytes # 0.6 (0.6-4.6) K/mcL Monocytes # 1.5 H (0.0-1.3) K/mcL Eosinophils # 0.1 (0.0-0.6) K/mcL Basophils # 0.0 (0.0-0.2) K/mcL Nucleated RBCs/100 WBC 0.5 H (0) /100 WBC PT (9.4-12.1) Seconds INR APTT (26.0-36.0) Seconds Sodium 142 (136-145) mEq/L Potassium 2.9 L (3.5-4.5) mEq/L Chloride 105 (98-109) mEq/L Carbon Dioxide 26 (19-29) mEq/L BUN 39 H (8-26) mg/dL Creatinine 1.03 (0.72-1.25) mg/dL Est GFR ( Amer) > 60 (> 60) Est GFR (Non-Af Amer) > 60 (> 60) BUN/Creatinine Ratio 38 H (6-26) Glucose 24 L* (70-99) mg/dL POC Glucose (58-89) Calculated Osmolality 299 (280-300) Lactic Acid 1.9 (0.5-2.2) mmol/L Calcium 8.4 L (8.6-10.8) mg/dL Total Bilirubin 0.4 (0.2-1.2) mg/dL Direct Bilirubin 0.3 (0.0-0.5) mg/dL Indirect Bilirubin 0.1 (0.0-1.2) mg/dL AST 31 (5-34) Units/L ALT 23 (0-55) Units/L Alkaline Phosphatase 93 (38-126) Units/L Troponin I (0-0.03) ng/mL B-Natriuretic Peptide (0-100) pg/mL Serum Total Protein 6.1 (6.0-8.3) g/dL Albumin 2.4 L (3.5-5.0) g/dL Globulin 3.7 H (2.4-3.5) g/dL Albumin/Globulin Ratio 0.6 L (1.1-2.2) Urine Color (Yellow) Urine Clarity (Clear) Urine pH (5.0-8.0) pH Units Ur Specific [place] (1.010-1.025) Urine Protein (Neg-Trace) mg/dL Urine Glucose (UA) (Normal) mg/dL Urine Ketones (Negative) mg/dL Urine Blood (Negative) Urine Nitrite (Negative) Urine Bilirubin (Negative) Urine Urobilinogen (Normal) mg/dL Ur Leukocyte Esterase (Negative) Ur Culture Indicated? (NO) 02/03/17 02/03/17 02/03/17 Range/Units 15:57 15:57 15:57 WBC (4.3-11.1) K/mcL RBC (4.19-5.50) M/mcL Hgb (12.9-16.9) g/dL Hct (37.5-50.1) % MCV (83.0-100.0) fL MCH (28.0-33.3) pg MCHC (31.6-35.5) g/dL RDW (11.5-14.5) % Plt Count (140-400) K/mcL MPV (9.4-12.4) fL Immature Gran % (0-4) % Seg Neutrophils % % Lymphocytes % % Monocytes % % Eosinophils % % Basophils % % Neutrophils # (1.6-8.9) K/mcL Lymphocytes # (0.6-4.6) K/mcL Monocytes # (0.0-1.3) K/mcL Eosinophils # (0.0-0.6) K/mcL Basophils # (0.0-0.2) K/mcL Nucleated RBCs/100 WBC (0) /100 WBC PT 34.1 H (9.4-12.1) Seconds INR 3.1 APTT 36.1 H (26.0-36.0) Seconds Sodium (136-145) mEq/L Potassium (3.5-4.5) mEq/L Chloride (98-109) mEq/L Carbon Dioxide (19-29) mEq/L BUN (8-26) mg/dL Creatinine (0.72-1.25) mg/dL Est GFR ( Amer) (> 60) Est GFR (Non-Af Amer) (> 60) BUN/Creatinine Ratio (6-26) Glucose (70-99) mg/dL POC Glucose (58-89) Calculated Osmolality (280-300) Lactic Acid (0.5-2.2) mmol/L Calcium (8.6-10.8) mg/dL Total Bilirubin (0.2-1.2) mg/dL Direct Bilirubin (0.0-0.5) mg/dL Indirect Bilirubin (0.0-1.2) mg/dL AST (5-34) Units/L ALT (0-55) Units/L Alkaline Phosphatase (38-126) Units/L Troponin I 0.01 (0-0.03) ng/mL B-Natriuretic Peptide 676 H (0-100) pg/mL Serum Total Protein (6.0-8.3) g/dL Albumin (3.5-5.0) g/dL Globulin (2.4-3.5) g/dL Albumin/Globulin Ratio (1.1-2.2) Urine Color (Yellow) Urine Clarity (Clear) Urine pH (5.0-8.0) pH Units Ur Specific [place] (1.010-1.025) Urine Protein (Neg-Trace) mg/dL Urine Glucose (UA) (Normal) mg/dL Urine Ketones (Negative) mg/dL Urine Blood (Negative) Urine Nitrite (Negative) Urine Bilirubin (Negative) Urine Urobilinogen (Normal) mg/dL Ur Leukocyte Esterase (Negative) Ur Culture Indicated? (NO) 02/03/17 02/03/17 02/03/17 Range/Units 16:29 16:31 16:47 WBC (4.3-11.1) K/mcL RBC (4.19-5.50) M/mcL Hgb (12.9-16.9) g/dL Hct (37.5-50.1) % MCV (83.0-100.0) fL MCH (28.0-33.3) pg MCHC (31.6-35.5) g/dL RDW (11.5-14.5) % Plt Count (140-400) K/mcL MPV (9.4-12.4) fL Immature Gran % (0-4) % Seg Neutrophils % % Lymphocytes % % Monocytes % % Eosinophils % % Basophils % % Neutrophils # (1.6-8.9) K/mcL Lymphocytes # (0.6-4.6) K/mcL Monocytes # (0.0-1.3) K/mcL Eosinophils # (0.0-0.6) K/mcL Basophils # (0.0-0.2) K/mcL Nucleated RBCs/100 WBC (0) /100 WBC PT (9.4-12.1) Seconds INR APTT (26.0-36.0) Seconds Sodium (136-145) mEq/L Potassium (3.5-4.5) mEq/L Chloride (98-109) mEq/L Carbon Dioxide (19-29) mEq/L BUN (8-26) mg/dL Creatinine (0.72-1.25) mg/dL Est GFR ( Amer) (> 60) Est GFR (Non-Af Amer) (> 60) BUN/Creatinine Ratio (6-26) Glucose (70-99) mg/dL POC Glucose 24 L* 23 L* 104 H (58-89) Calculated Osmolality (280-300) Lactic Acid (0.5-2.2) mmol/L Calcium (8.6-10.8) mg/dL Total Bilirubin (0.2-1.2) mg/dL Direct Bilirubin (0.0-0.5) mg/dL Indirect Bilirubin (0.0-1.2) mg/dL AST (5-34) Units/L ALT (0-55) Units/L Alkaline Phosphatase (38-126) Units/L Troponin I (0-0.03) ng/mL B-Natriuretic Peptide (0-100) pg/mL Serum Total Protein (6.0-8.3) g/dL Albumin (3.5-5.0) g/dL Globulin (2.4-3.5) g/dL Albumin/Globulin Ratio (1.1-2.2) Urine Color (Yellow) Urine Clarity (Clear) Urine pH (5.0-8.0) pH Units Ur Specific [place] (1.010-1.025) Urine Protein (Neg-Trace) mg/dL Urine Glucose (UA) (Normal) mg/dL Urine Ketones (Negative) mg/dL Urine Blood (Negative) Urine Nitrite (Negative) Urine Bilirubin (Negative) Urine Urobilinogen (Normal) mg/dL Ur Leukocyte Esterase (Negative) Ur Culture Indicated? (NO) 02/03/17 Range/Units 17:03 WBC (4.3-11.1) K/mcL RBC (4.19-5.50) M/mcL Hgb (12.9-16.9) g/dL Hct (37.5-50.1) % MCV (83.0-100.0) fL MCH (28.0-33.3) pg MCHC (31.6-35.5) g/dL RDW (11.5-14.5) % Plt Count (140-400) K/mcL MPV (9.4-12.4) fL Immature Gran % (0-4) % Seg Neutrophils % % Lymphocytes % % Monocytes % % Eosinophils % % Basophils % % Neutrophils # (1.6-8.9) K/mcL Lymphocytes # (0.6-4.6) K/mcL Monocytes # (0.0-1.3) K/mcL Eosinophils # (0.0-0.6) K/mcL Basophils # (0.0-0.2) K/mcL Nucleated RBCs/100 WBC (0) /100 WBC PT (9.4-12.1) Seconds INR APTT (26.0-36.0) Seconds Sodium (136-145) mEq/L Potassium (3.5-4.5) mEq/L Chloride (98-109) mEq/L Carbon Dioxide (19-29) mEq/L BUN (8-26) mg/dL Creatinine (0.72-1.25) mg/dL Est GFR ( Amer) (> 60) Est GFR (Non-Af Amer) (> 60) BUN/Creatinine Ratio (6-26) Glucose (70-99) mg/dL POC Glucose (58-89) Calculated Osmolality (280-300) Lactic Acid (0.5-2.2) mmol/L Calcium (8.6-10.8) mg/dL Total Bilirubin (0.2-1.2) mg/dL Direct Bilirubin (0.0-0.5) mg/dL Indirect Bilirubin (0.0-1.2) mg/dL AST (5-34) Units/L ALT (0-55) Units/L Alkaline Phosphatase (38-126) Units/L Troponin I (0-0.03) ng/mL B-Natriuretic Peptide (0-100) pg/mL Serum Total Protein (6.0-8.3) g/dL Albumin (3.5-5.0) g/dL Globulin (2.4-3.5) g/dL Albumin/Globulin Ratio (1.1-2.2) Urine Color Yellow (Yellow) Urine Clarity Clear (Clear) Urine pH 6.0 (5.0-8.0) pH Units Ur Specific [place] 1.011 (1.010-1.025) Urine Protein Negative (Neg-Trace) mg/dL Urine Glucose (UA) Normal (Normal) mg/dL Urine Ketones Negative (Negative) mg/dL Urine Blood Negative (Negative) Urine Nitrite Negative (Negative) Urine Bilirubin Negative (Negative) Urine Urobilinogen Normal (Normal) mg/dL Ur Leukocyte Esterase Negative (Negative) Ur Culture Indicated? NO (NO) - EKG Data EKG #1 EKG attestation: Yes I reviewed and interpreted this EKG. EKG results narrative: Atrial rhythm at a rate of 76. Voodoo is 216. QT is 525. QTC is 555. No signs of acute ischemia. No significant changes from previous EKG dated .
[2017-02-03 16:04] LABS: Basophils % 0.3 %; Eosinophils # 0.1 K/mcL (0.0-0.6); Eosinophils % 0.8 %; Hematocrit 26.1 % (37.5-50.1); Immature Granulocytes % 0.5 % (0-4); Lymphocytes # 0.6 K/mcL (0.6-4.6); Lymphocytes % 4.6 %; Mean Corpuscular HGB Conc 29.1 g/dL (31.6-35.5); Mean Corpuscular Volume 75.7 fL (83.0-100.0); Mean Platelet Volume 9.2 fL (9.4-12.4); Monocytes # 1.5 K/mcL (0.0-1.3); Monocytes % 11.6 %; Neutrophils # 10.8 K/mcL (1.6-8.9); Nucleated Red Blood Cells 0.5 /100 WBC (0); Platelet Count 513 K/mcL (140-400); Red Blood Count 3.45 M/mcL (4.19-5.50); Red Cell Distribution Width 17.7 % (11.5-14.5); Segmented Neutrophils % 82.2 %
[2017-02-03 16:13] LABS: INR 3.1; Prothrombin Time 34.1 Seconds (9.4-12.1)
[2017-02-03 16:15] LABS: Activated Partial Thrombo Time 36.1 Seconds (26.0-36.0)
[2017-02-03 16:25] LABS: Alanine Aminotransferase 23 Units/L (0-55); Albumin 2.4 g/dL (3.5-5.0); Albumin/Globulin Ratio 0.6 (1.1-2.2); Alkaline Phosphatase 93 Units/L (38-126); Aspartate Amino Transferase 31 Units/L (5-34); BUN/Creatinine Ratio 38 (6-26); Bilirubin,Direct 0.3 mg/dL (0.0-0.5); Bilirubin,Indirect 0.1 mg/dL (0.0-1.2); Bilirubin,Total 0.4 mg/dL (0.2-1.2); Blood Urea Nitrogen 39 mg/dL (8-26); Calcium 8.4 mg/dL (8.6-10.8); Carbon Dioxide 26 mEq/L (19-29); Chloride 105 mEq/L (98-109); Globulin 3.7 g/dL (2.4-3.5); Osmolality,Calculated 299 (280-300); Potassium 2.9 mEq/L (3.5-4.5); Sodium 142 mEq/L (136-145); Total Protein 6.1 g/dL (6.0-8.3); eGFR For African Americans > 60 (> 60); eGFR For Non-African Americans > 60 (> 60)
[2017-02-03] MEDS ORDERED: *HR* Dextrose 50 % in Water (Syg) 50 ML SYRINGE IVP ONE (16:30)
[2017-02-03 16:31] LABS: Glucose 24 mg/dL (70-99); Hemoglobin 7.6 g/dL (12.9-16.9)
[2017-02-03] MEDS ORDERED: *HR* Dextrose 50 % in Water (Syg) 50 ML SYRINGE ONE (16:32)
[2017-02-03 17:16] LABS: Bilirubin,Urine Negative (Negative); Blood,Urine Negative (Negative); Clarity,Urine Clear (Clear); Color,Urine Yellow (Yellow); Glucose,Urine (UA) Normal (Normal); Ketones,Urine Negative (Negative); Leukocyte Esterase,Urine Negative (Negative); Nitrite,Urine Negative (Negative); Protein,Urine Negative (Neg-Trace); Specific Gravity,Urine 1.011 (1.010-1.025); Urobilinogen,Urine Normal (Normal)
[2017-02-03] MEDS ORDERED: Naloxone 0.4 MG/ML INJ IVP PRN (19:37)
[2017-02-03 20:31] LABS: Amphetamine Screen,Urine Negative ng/mL (Cutoff=1000); Barbiturate Screen,Urine Negative ng/mL (Cutoff=200); Benzodiazepines Screen,Urine Negative ng/mL (Cutoff=200); Cannabinoid Screen,Urine Positive ng/mL (Cutoff = 50); Cocaine Screen,Urine Negative ng/mL (Cutoff= 300); Opiate Screen,Urine Negative ng/mL (Cutoff=300); Phencyclidine Screen,Urine Negative ng/mL (Cutoff=25)
--- NOTE | 2017-02-03 21:01 | Internal Med History&Physical ---
Date of Encounter: 02/03/17 Time of Encounter: 19:30 Assessment and Plan (1) Encephalopathy acute Current visit: Yes Status: Acute Apparently was alert and oriented 4 on arrival in the ED. On my exam he is lethargic and drowsy and difficult to arouse. Etiology unknown at this time, suspect multifactorial with hypoglycemia possibly CO2 retention. He is on Zaroxolyn has elevated INR, we will check stat head CT, stat ABG, stat ammonia. Urine drug screen pending (2) Acute exacerbation of chronic obstructive airways disease Current visit: No Status: Acute Suspected with wheezing on exam. WBC 13 K, lactic acid elevated. Start IV steroids, IV azithromycin and IV Rocephin. De-escalate ATBs is clinically improves. (3) Lactic acid acidosis Current visit: Yes Status: Acute Initial lactic acid 1.9. Repeated for unknown reason but repeat lactic acid 3.3. Possibly secondary to acute COPD exacerbation, gentle IV fluids, repeat lactic acid level. (4) Diabetes mellitus Current visit: Yes Status: Chronic Per history but apparently hypoglycemic in the ED with blood sugars in the 20s to 40s. Received 2 A of dextrose in the ED. Sugars stable on the floor in the 120s. Per ED patient did not eat today but did diabetes medication and insulin. Hold all diabetes medications and insulin at this time monitor blood sugar when necessary dextrose resume insulin once blood sugar stabilized Qualifiers: Diabetes mellitus type: type 2 Diabetes mellitus complication status: with hypoglycemia Diabetes mellitus complication detail: without coma Diabetes mellitus longterm insulin use: without longterm use Qualified Code(s): E11.649 - Type 2 diabetes mellitus with hypoglycemia without coma (5) Congestive heart failure Current visit: No Status: Acute Chronic diastolic heart failure. 01/26/2017 echo with EF 45% and evidence of diastolic dysfunction. He does have significant lower extremity edema on exam, BNP is 676. Chest x-ray with evidence of right pleural effusion and CHF. Does not appear overtly overloaded. Hold home Lasix, IV diuresis for now. Daily weights and I's and O's. Qualifiers: Congestive heart failure type: diastolic Congestive heart failure chronicity: acute on chronic Qualified Code(s): I50.33 - Acute on chronic diastolic (congestive) heart failure (6) Anemia Current visit: No Status: Acute Hgb 7.6 on admission, previous Hgb and 04/2016. Has been slowly decreasing since then. No obvious bleeding on exam. He is on anticoagulation for A. fib. Holding Eliquis, check occult stools. Unclear if he has had previous GI workup in the past. We will consult GI (GI will need to be notified of consult) . Qualifiers: Anemia type: unspecified type Qualified Code(s): D64.9 - Anemia, unspecified (7) Afib Current visit: No Status: Chronic Per history, rate controlled. Continue home beta june and amiodarone. Holding home Eliquis with possible GI bleed and elevated INR. Continue to monitor on telemetry. Resume anticoagulation when able. Qualifiers: Atrial fibrillation type: chronic Qualified Code(s): I48.2 - Chronic atrial fibrillation (8) Hypokalemia Current visit: No Status: Acute Potassium 2.9 in the ED. Replaced, monitor repeat potassium (9) DVT prophylaxis Current visit: No Status: Acute SCDs Internal Medicine - H&P: HPI Chief complaint: shortness of breath Admitted From: Home History of present illness: Mr. Diaz is a 71 year old male with past medical history A. fib, diabetes and GRAZYNA who presented to [facility] on 02/03/2017 with complaints of worsening shortness of breath. He was found to be in any acute CHF exacerbation, hypoglycemic and hypokalemic. He was admitted for IV diuresis and further workup and treatment. Information obtained mostly from chart review as patient has lethargic and does not provide details. Per chart review patient was recently discharged for Theatre F exacerbation went home details are unclear but now patient back with worsening shortness of breath on exam patient was lethargic and drowsy difficult to keep awake he does not answer full sentences and he does shake his head yes when asked having chest pain also shakes his head yes when asked by shortness of breath, he does wears CPAP at home. No other information able to be obtained at this time Past Med Surg Social Fam HX - Past Medical History Medical history: arthritis, atrial fibrillation, CHF, COPD, diabetes, hyperlipidemia, hypertension Psychiatric history: no psych history - Past Surgical History Surgical History: orthopedic, other, pacemaker/AICD - Social History Smoking Status: Current every day smoker Smokeless Tobacco Status: No Alcohol use: none Drug use: marijuana - Family History Father Hx Family Cardiac Disorders: Yes Mother Family Member Ethnicity: Non- Living Status: Internal Medicine - H&P: Meds Amiodarone [Cordarone] 200 mg PO DAILY 04/28/15 [History] Aspirin 81 mg PO DAILY 04/28/15 [History] Atorvastatin [Lipitor] 40 mg PO HS 04/28/15 [History] Citalopram [CeleXA] 40 mg PO DAILY 04/28/15 [History] Docosahexanoic Acid/Epa [Fish Oil Concentrate Softgel] 1 each PO DAILY 04/28/15 [History] Ferrous Sulfate 325 mg PO BIDWM 04/28/15 [History] Garlic 1,000 mg PO DAILY 04/28/15 [History] GlipiZIDE XL (24 HR) [Glucotrol XL] 20 mg PO QAM 04/28/15 [History] Insulin DETEMIR [Levemir] 70 units SQ QAM AND QHS 04/28/15 [History] Meclizine [Antivert] 12.5 - 25 tab PO Q4HR PRN 04/28/15 [History] Rivaroxaban [Xarelto] 20 mg PO 1700 04/28/15 [History] SitaGLIPtin [Januvia] 100 mg PO DAILY 04/28/15 [History] Albuterol Sulfate [Proair Hfa] 2 puff IH Q4H PRN 01/25/17 [History] Budesonide/Formoterol 160/4.5 [Symbicort 160/4.5] 2 puff IH BIDR 01/25/17 [ History] Metformin HCl [Glucophage] 1,000 mg PO BIDWM 01/25/17 [History] Metoprolol Succinate 200 mg PO DAILY 01/25/17 [History] Tiotropium [Spiriva] 18 mcg IH 0700 01/25/17 [History] Furosemide [Lasix] 40 mg PO BID 7 Days 01/29/17 [Rx] Oxygen 2 l NS CONT 02/03/17 [History] Allergies bupropion [From Wellbutrin] Allergy (Verified 04/28/15 08:53) Difficulty Breathing codeine Allergy (Verified 04/28/15 08:53) Difficulty Breathing Opioids-Meperidine and Related [Opioids-Meperidine & Related] Allergy (Verified 04/28/15 08:53) Difficulty Breathing ROS unobtainable: due to mental status All Systems PM: A 10-system review of systems was performed and is negative for pertinent findings except as documented above in the HPI. - Cardiovascular Cardiovascular ROS IM: dyspnea, edema - Constitutional Vitals: Temp Pulse Resp BP Pulse Ox 98.9 F 83 16 124/82 100 02/03/17 15:10 02/03/17 19:37 02/03/17 19:37 02/03/17 19:37 02/03/17 19:37 General appearance: Present: A&O X 1, morbidly obese - Head Head exam: Present: atraumatic, normocephalic - Eye Eye exam: Present: PERRL, conjuntiva pink, sclera anicteric Pupils: Present: PERRL - Neck Neck exam general surgery: Present: supple, trachea midline. Absent: lymphadenopathy - Respiratory Respiratory exam: Present: CTAB, wheezes. Absent: accessory muscle use, rales, rhonchi - Cardiovascular Cardiovascular exam: Present: distant heart sounds, RRR, +S1, +S2. Absent: diastolic murmur, gallop, rubs, systolic murmur Additional comments: bilateral lower ext pitting edema - GI/Abdominal GI/Abdominal exam: Present: normal bowel sounds, soft, no peritoneal signs. Absent: distended, tenderness Additional comments: obese - Additional comments: navarrete - Extremities Exam Extremities exam: Present: warm, radial pulses palpable and symetrical. Absent : calf tenderness, cyanotic, pedal edema - Neurological Exam Neurological exam: Present: CN II-XII intact, oriented X3, no focal deficits. Absent: pronater drift, facial droop, speech deficit - Skin Skin exam: Present: dry, intact Internal Med - H&P Results - Labs CBC & Chem 7: 02/03/17 15:57 02/03/17 15:57 Labs: Cardiac Enzymes 02/03/17 Range/Units 20:08 Troponin I 0.01 (0-0.03) ng/mL - Impressions ITS Impressions Head CT 02/03/17 19:44 IMPRESSION: No acute intracranial abnormality. [id number] cerebral atrophy appropriate for age. Mild to moderate chronic ischemic white matter changes also appropriate for age. No significant change from the prior study. D/ / Chauncey Brown MD / Chauncey Brown MD Interpreting Provider: Chauncey Brown MD
[2017-02-03] MEDS ORDERED: 0.9 % Sodium Chloride 1,000 ML IVC SCH (21:15)
[2017-02-03] MEDS ORDERED: Azithromycin 500 MG in D5% in Water 250 ML IVPB SCH (22:00)
[2017-02-03] MEDS: Budesonide/Formoterol 160/4.5 MDI IH SCH (22:06)
[2017-02-03] MEDS ORDERED: Magnesium Sulfate 2 GM in D5% in Water 100 ML IVPB ONE (22:08)
[2017-02-03] MEDS ORDERED: Potassium Chloride Elixir 20 MEQ/15 ML UDC PO ONE (22:10)
[2017-02-03] MEDS ORDERED: D10% in Water 500 ML IVC SCH (22:15)
[2017-02-03] MEDS: Pantoprazole 40 MG VIAL IVP SCH (22:44)
[2017-02-03] MEDS: MethylPREDNISolone 40 MG/ML VIAL IVP SCH (22:45)
--- NOTE | 2017-02-03 22:46 | Event Note ---
Date of Encounter: 02/03/17 Time of Encounter: 22:42 Patient seen and examined with nurse practitioner. Agree with assessment and plan. Patient presents with acute congestive heart failure exacerbation due to diastolic dysfunction and acute COPD exacerbation. He had severe hypoglycemia on arrival and he is currently on a D10 drip 20 mls an hour. Patient will be started on IV Lasix 60 mg twice a day. Strict intake and output and daily weight. I will also give the patient steroids nebulizer treatment and azithromycin for acute bronchitis. K 2.9 and Mg 1.6 and these will be replaced. Continous telemetry monitoring. Arterial blood gas will be checked. Patient is full code. Inpatient admission
[2017-02-04 00:28] LABS: ABG HCO3 29.8 mEQ/L (21-27); ABG PCO2 46 mmHg (35-45); ABG PH 7.42 pH Units (7.32-7.45); ABG PO2 24 mmHg (85-104)
[2017-02-04 00:29] LABS: ABG Base Excess 4.8 mEq/L (-2.0 to 3.0); ABG Oxygen Saturation 44 % (95-98); ABG TCO2 31.2 mEq/L (20-26); Blood Gas FiO2 36 %; Blood Gas Liter Flow 4 L/MIN
--- NOTE | 2017-02-04 00:42 | Event Note ---
Date of Encounter: 02/04/17 Time of Encounter: 00:39 I was paged by respiratory therapy due to a critical lab results on an ABG. The result reported showed a PaO2 of 24 with an oxygen saturation of 44%. I when examined the patient and the patient was awake, alert, sitting on the side of the bed and was able to converse with me appropriately. Patient had no dyspnea or other signs of respiratory distress and patient did not complain of dyspnea. At the time I examined the patient his SPO2 monitor showed 100% on 4 L of oxygen via nasal cannula with a good waveform. The result that was reported as an ABG appears to be a venous sample.
[2017-02-04 03:25] LABS: Alanine Aminotransferase 22 Units/L (0-55); Albumin 2.3 g/dL (3.5-5.0); Albumin/Globulin Ratio 0.6 (1.1-2.2); Alkaline Phosphatase 89 Units/L (38-126); Aspartate Amino Transferase 29 Units/L (5-34); BUN/Creatinine Ratio 29 (6-26); Bilirubin,Total 0.3 mg/dL (0.2-1.2); Blood Urea Nitrogen 35 mg/dL (8-26); Calcium 8.2 mg/dL (8.6-10.8); Carbon Dioxide 25 mEq/L (19-29); Chloride 104 mEq/L (98-109); Globulin 3.7 g/dL (2.4-3.5); Glucose 122 mg/dL (70-99); Osmolality,Calculated 299 (280-300); Potassium 3.6 mEq/L (3.5-4.5); Sodium 140 mEq/L (136-145); eGFR For African Americans > 60 (> 60); eGFR For Non-African Americans 58 (> 60)
[2017-02-04] MEDS: Ipratropium/Albuterol Neb 3 ML IH SCH ×6 (03:41→20:22)
[2017-02-04 03:42] LABS: Eosinophils % 0.1 %; Immature Granulocytes % 0.4 % (0-4); Lymphocytes % 2.1 %; Nucleated Red Blood Cells 0.7 /100 WBC (0)
[2017-02-04 03:43] LABS: Hematocrit 24.4 % (37.5-50.1); Lymphocytes # 0.3 K/mcL (0.6-4.6); Mean Corpuscular HGB Conc 28.7 g/dL (31.6-35.5); Mean Corpuscular Hemoglobin 21.9 pg (28.0-33.3); Mean Corpuscular Volume 76.5 fL (83.0-100.0); Mean Platelet Volume 10.2 fL (9.4-12.4); Monocytes # 0.2 K/mcL (0.0-1.3); Neutrophils # 11.5 K/mcL (1.6-8.9); Platelet Count 432 K/mcL (140-400); Red Blood Count 3.19 M/mcL (4.19-5.50); Red Cell Distribution Width 17.9 % (11.5-14.5); Segmented Neutrophils % 95.4 %
[2017-02-04 04:17] LABS: Anisocytosis 1+ (Not Present); Hypochromasia Present (Not Present); Platelet Estimate Normal (Normal); Poikilocytosis 1+ (Not Present)
[2017-02-04] MEDS: MethylPREDNISolone 40 MG/ML VIAL IVP SCH ×4 (05:21→22:57)
[2017-02-04] MEDS: Pantoprazole 40 MG VIAL IVP SCH ×2 (05:21→17:38)
[2017-02-04] MEDS ORDERED: Tiotropium 18 MCG inhalation IH SCH (07:00)
[2017-02-04] MEDS: Metoprolol XL (24 HR) Succ 50 MG TAB.ER.24H PO SCH (07:52)
[2017-02-04] MEDS: *HR* Amiodarone 200 MG TABLET PO SCH (07:52)
[2017-02-04] MEDS: Aspirin 81 MG TAB.CHEW PO SCH (07:52)
[2017-02-04] MEDS: Furosemide 20 MG/2 ML VIAL IVP SCH ×2 (07:55→17:37)
[2017-02-04] MEDS: Budesonide/Formoterol 160/4.5 MDI IH SCH ×2 (08:12→20:22)
[2017-02-04] MEDS ORDERED: Metoprolol XL (24 HR) Succ 50 MG TAB.ER.24H PO SCH (09:00)
[2017-02-04] MEDS ORDERED: Furosemide 20 MG/2 ML VIAL IVP SCH (09:00)
[2017-02-04] MEDS ORDERED: 0.9 % Sodium Chloride 500 ML ONE ×2 (11:27→18:18)
--- NOTE | 2017-02-04 13:12 | Internal Med Progress Note ---
<Demond Mcgraw P - Last Filed: 02/04/17 13:46> Date of Encounter: 02/04/17 - Constitutional Vitals: Temp Pulse Resp BP Pulse Ox 97.7 F 94 18 97/66 97 02/04/17 12:02 02/04/17 12:02 02/04/17 12:02 02/04/17 12:02 02/04/17 12:02 Internal Medicine: Result - Labs CBC & Chem 7: 02/04/17 03:04 02/04/17 03:04 Labs: Short CBC 02/04/17 Range/Units 03:04 WBC 12.1 H (4.3-11.1) K/mcL Hgb 7.0 L (12.9-16.9) g/dL Hct 24.4 L (37.5-50.1) % Plt Count 432 H (140-400) K/mcL Neutrophils # 11.5 H (1.6-8.9) K/mcL BMP 02/04/17 03:04 Sodium 140 Potassium 3.6 Chloride 104 Carbon Dioxide 25 BUN 35 H Creatinine 1.22 Glucose 122 H Calcium 8.2 L Cardiac Enzymes 02/04/17 02/04/17 Range/Units 03:04 08:54 Troponin I 0.01 0.01 (0-0.03) ng/mL Liver Function 02/04/17 Range/Units 03:04 Total Bilirubin 0.3 (0.2-1.2) mg/dL AST 29 (5-34) Units/L ALT 22 (0-55) Units/L Alkaline Phosphatase 89 (38-126) Units/L Albumin 2.3 L (3.5-5.0) g/dL - ABG Interpretation ABG results: ABG ABG pH 7.42 pH Units (7.32-7.45) 02/04/17 00:07 ABG pCO2 46 mmHg (35-45) H 02/04/17 00:07 ABG pO2 24 mmHg (85-104) L* 02/04/17 00:07 ABG O2 Saturation 44 % (95-98) L 02/04/17 00:07 PT/INR, D-dimer PT 34.1 Seconds (9.4-12.1) H 02/03/17 15:57 Consult Discharge Plan - Plan Referrals: Damian Seymour MD [Primary Care Provider] - - Attending Attestation I examined this patient and my medical decision-making was reviewed with the KEY ACCOUNT COORDINATOR/PA/Advanced Practice Nurse/Resident Physician. I agree with the documented findings, disposition and treatment plan as described except to the extent set forth below. <Sonja Pickett - Last Filed: 02/04/17 15:29> Date of Encounter: 02/04/17 Time of Encounter: 09:00 - Assessment and plan (1) Acute and chronic respiratory failure Current Visit: No Status: Acute Assessment and plan: - With worsening shortness of breath requiring supplemental oxygen in ED. ( Patient is not on oxygen at home). - Likely secondary to CHF exacerbation and anemia in the setting of COPD and GRAZYNA. - Improves as patient reports breathing much better today compared to yesterday. - Continue diuresis with Lasix for CHF exacerbation. - Will 2 units of pRBC transfusion for anemia. - Bronchodilators, Symbicort and supplemental oxygen for COPD. - CPAP use at night or sleep for GRAZYNA. - Continue to monitor. Qualifiers: Respiratory failure complication: hypoxia Qualified Code(s): J96.21 - Acute and chronic respiratory failure with hypoxia (2) Acute exacerbation of CHF (congestive heart failure) Current Visit: Yes Status: Acute Assessment and plan: - With worsening shortness of breath, bilateral lower extremity edema and significant recent weight gain on initial presentation. - CXR on admission suggests worsening pulmonary edema compared to prior CXR 9 days ago. - Echo on 01/26/17 found LVEF 45% with mild global LV hypokinesis. - Improves as patient reports better breathing after aggressive diuresis with IV Lasix. - Continue diuresis with Lasix. - Continue to monitor. Qualifiers: Congestive heart failure type: systolic Qualified Code(s): I50.23 - Acute on chronic systolic (congestive) heart failure (3) Anemia Current Visit: No Status: Acute Assessment and plan: - Hgb dropped from 7.6 on admission to 7.0 today. - Symptomatic with worsening lightheadedness and shortness of breath. - Concern of GI bleed. Patient had unremarkable EGD and colonoscopy finding of multiple non-bleeding colon polyps on 01/27/17. Patient may need capsule endoscopy for further evaluation. Plan to consult GI once the service is available. - Will type & cross and transfuse 2 units of pRBC. - Closely monitor H&H. Qualifiers: Anemia type: unspecified type Qualified Code(s): D64.9 - Anemia, unspecified (4) Hypokalemia Current Visit: No Status: Acute Assessment and plan: - K as low as 2.9. - Improves after KCl supplement and K 3.6 today. - Continue to monitor and replenish if needed. (5) Afib Current Visit: No Status: Chronic Assessment and plan: - Chronic A-fib s/p pace maker placement. - Currently rate controlled. Continue metoprolol. - Was on Xarelto but will hold anticoagulation at this time given the concern of anemia from GI bleed. Qualifiers: Atrial fibrillation type: chronic Qualified Code(s): I48.2 - Chronic atrial fibrillation (6) COPD (chronic obstructive pulmonary disease) Current Visit: No Status: Chronic Assessment and plan: - Continue bronchodilators, Symbicort and supplemental oxygen. Qualifiers: COPD type: unspecified COPD Qualified Code(s): J44.9 - Chronic obstructive pulmonary disease, unspecified (7) Diabetes mellitus Current Visit: Yes Status: Chronic Assessment and plan: - Patient was noted to have glucose as low as 24 in ED and was started on D10. - Likely secondary to insulin use in the setting of missing meal. - Glucose > 150 as patient tolerates oral food intake. - Continue to monitor glucose closely. - Hold insulin for now and may resume if patient's blood glucose remains elevated without episode of hypoglycemia. Qualifiers: Diabetes mellitus type: type 2 Diabetes mellitus complication status: with hypoglycemia Diabetes mellitus complication detail: without coma Diabetes mellitus flagman insulin use: without halfway use Qualified Code(s): E11.649 - Type 2 diabetes mellitus with hypoglycemia without coma (8) Nicotine dependence Current Visit: No Status: Chronic Assessment and plan: - Patient admits recent smoking and marijuana use. - Smoking cessation counseling. - Okay to give nicotine patch. Qualifiers: Nicotine product type: cigarettes Substance use status: uncomplicated Qualified Code(s): F17.210 - Nicotine dependence, cigarettes, uncomplicated (9) Sleep apnea with use of continuous positive airway pressure (CPAP) Current Visit: Yes Status: Acute Assessment and plan: - With home CPAP use at night. - Continue CPAP use at night or sleep during patient's hospital stay. - Subjective Interval history: Patient was seen and examined this morning. Patient reports breathing much better compared to yesterday. Patient also recalls more lightheadedness recently but denies syncope, chest pain/discomfort, palpitation, fever, chills, nausea, vomiting. - Constitutional Vitals: Temp Pulse Resp BP Pulse Ox 97.7 F 94 18 97/66 97 02/04/17 12:02 02/04/17 12:02 02/04/17 12:02 02/04/17 12:02 02/04/17 12:02 General appearance: Present: cooperative, A&O X 2, morbidly obese, obese - Head Head exam: Present: atraumatic, normocephalic - Eye Eye exam: Present: EOMI, PERRL, conjuntiva pink, sclera anicteric - Neck Neck exam general surgery: Present: supple, trachea midline. Absent: lymphadenopathy - Respiratory Respiratory exam: Present: rales. Absent: accessory muscle use, rhonchi, wheezes - Cardiovascular Cardiovascular exam: Present: irregular rhythm, +S1, +S2. Absent: diastolic murmur, gallop, rubs, systolic murmur - GI/Abdominal GI/Abdominal exam: Present: normal bowel sounds, soft, no peritoneal signs. Absent: distended, tenderness - Extremities Exam Extremities exam: Present: warm, radial pulses palpable and symetrical. Absent : cyanotic Additional comments: Moderate bilateral lower extremity pitting edema - Neurological Exam Neurological exam: Present: CN II-XII intact, no focal deficits. Absent: pronater drift, facial droop, speech deficit - Skin Skin exam: Present: dry, intact, warm Internal Medicine: Result - Labs CBC & Chem 7: 02/04/17 03:04 02/04/17 03:04 Labs: Short CBC 02/04/17 Range/Units 03:04 WBC 12.1 H (4.3-11.1) K/mcL Hgb 7.0 L (12.9-16.9) g/dL Hct 24.4 L (37.5-50.1) % Plt Count 432 H (140-400) K/mcL Neutrophils # 11.5 H (1.6-8.9) K/mcL BMP 02/04/17 03:04 Sodium 140 Potassium 3.6 Chloride 104 Carbon Dioxide 25 BUN 35 H Creatinine 1.22 Glucose 122 H Calcium 8.2 L Cardiac Enzymes 02/04/17 02/04/17 Range/Units 03:04 08:54 Troponin I 0.01 0.01 (0-0.03) ng/mL Liver Function 02/04/17 Range/Units 03:04 Total Bilirubin 0.3 (0.2-1.2) mg/dL AST 29 (5-34) Units/L ALT 22 (0-55) Units/L Alkaline Phosphatase 89 (38-126) Units/L Albumin 2.3 L (3.5-5.0) g/dL - ABG Interpretation ABG results: ABG ABG pH 7.42 pH Units (7.32-7.45) 02/04/17 00:07 ABG pCO2 46 mmHg (35-45) H 02/04/17 00:07 ABG pO2 24 mmHg (85-104) L* 02/04/17 00:07 ABG O2 Saturation 44 % (95-98) L 02/04/17 00:07 PT/INR, D-dimer PT 34.1 Seconds (9.4-12.1) H 02/03/17 15:57
[2017-02-04] MEDS ORDERED: Furosemide 20 MG/2 ML VIAL IVP ONE (14:41)
[2017-02-04] MEDS ORDERED: *HR* Dextrose 50 % in Water (Syg) 50 ML SYRINGE IVP PRN (16:45)
[2017-02-04] MEDS ORDERED: D5% in Water 1,000 ML IVC PRN (16:45)
[2017-02-04] MEDS ORDERED: Dextrose Gel 15 GM PO PRN ×2 (16:45)
[2017-02-04] MEDS: Insulin LISPRO 300 UNITS/3 ML VIAL SQ SCH (17:38)
[2017-02-04] MEDS ORDERED: Insulin LISPRO 300 UNITS/3 ML VIAL SQ SCH (21:00)
[2017-02-05] MEDS: Ipratropium/Albuterol Neb 3 ML IH SCH ×6 (00:11→20:06)
[2017-02-05 04:43] LABS: Hematocrit 27.5 % (37.5-50.1); Hemoglobin 8.2 g/dL (12.9-16.9); Immature Granulocytes % 0.6 % (0-4); Lymphocytes # 0.3 K/mcL (0.6-4.6); Lymphocytes % 2.5 %; Mean Corpuscular HGB Conc 29.8 g/dL (31.6-35.5); Mean Corpuscular Hemoglobin 22.8 pg (28.0-33.3); Mean Corpuscular Volume 76.4 fL (83.0-100.0); Monocytes # 0.4 K/mcL (0.0-1.3); Monocytes % 3.3 %; Neutrophils # 10.5 K/mcL (1.6-8.9); Nucleated Red Blood Cells 1.2 /100 WBC (0); Platelet Count 401 K/mcL (140-400); Segmented Neutrophils % 93.6 %
[2017-02-05 05:00] LABS: Calcium 8.2 mg/dL (8.6-10.8); Potassium 3.5 mEq/L (3.5-4.5)
[2017-02-05] MEDS: MethylPREDNISolone 40 MG/ML VIAL IVP SCH ×4 (05:29→23:00)
[2017-02-05] MEDS: Pantoprazole 40 MG VIAL IVP SCH ×2 (05:29→17:48)
[2017-02-05] MEDS: Budesonide/Formoterol 160/4.5 MDI IH SCH ×2 (08:00→20:07)
[2017-02-05] MEDS: Furosemide 20 MG/2 ML VIAL IVP SCH ×2 (08:02→17:48)
[2017-02-05] MEDS: Metoprolol XL (24 HR) Succ 50 MG TAB.ER.24H PO SCH (08:02)
[2017-02-05] MEDS: Insulin LISPRO 300 UNITS/3 ML VIAL SQ SCH ×4 (08:02→20:19)
[2017-02-05] MEDS: Aspirin 81 MG TAB.CHEW PO SCH (08:03)
[2017-02-05] MEDS: Nicotine 21 MG PATCH.TD24 TD SCH (08:03)
[2017-02-05] MEDS: *HR* Amiodarone 200 MG TABLET PO SCH (08:03)
--- NOTE | 2017-02-05 12:20 | Internal Med Progress Note ---
Date of Encounter: 02/05/17 Time of Encounter: 12:18 - Assessment and plan (1) Acute and chronic respiratory failure Current Visit: No Status: Acute Assessment and plan: - With worsening shortness of breath requiring supplemental oxygen in ED. ( Patient is not on oxygen at home). - Likely secondary to CHF exacerbation and anemia in the setting of COPD and GRAZYNA. - Improves as patient reports breathing much better today compared to yesterday. - Continue diuresis with Lasix for CHF exacerbation. - Will 2 units of pRBC transfusion for anemia. - Bronchodilators, Symbicort and supplemental oxygen for COPD. - CPAP use at night or sleep for GRAZYNA. - Continue to monitor. 02/05/2017 This is likely his admission of CHF exacerbation, secondary to noncompliance. Patient is approaching to his baseline status. We will continue diuresis for now. We will monitor renal function. Noted that creatinine has a port present. Diuresis is Essential. Qualifiers: Respiratory failure complication: hypoxia Qualified Code(s): J96.21 - Acute and chronic respiratory failure with hypoxia (2) Acute congestive heart failure Current Visit: Yes Status: Acute Assessment and plan: exacerbation of her congestive heart failure which is systolic in origin. Patient has issues with his noncompliance. Patient was recently discharged from the hospital. At this point cardiology is on the board. We will follow the recommendation. Qualifiers: Congestive heart failure type: systolic Qualified Code(s): I50.21 - Acute systolic (congestive) heart failure (3) Anemia Current Visit: No Status: Acute Assessment and plan: - Hgb dropped from 7.6 on admission to 7.0 today. - Symptomatic with worsening lightheadedness and shortness of breath. - Concern of GI bleed. Patient had unremarkable EGD and colonoscopy finding of multiple non-bleeding colon polyps on 01/27/17. Patient may need capsule endoscopy for further evaluation. Plan to consult GI once the service is available. - Will type & cross and transfuse 2 units of pRBC. - Closely monitor H&H. 02/05/2017 Hemoglobin stable. We will not transfuse him at this point. Close monitoring of hemoglobin/hematocrit. We will recheck labs tomorrow Qualifiers: Anemia type: unspecified type Qualified Code(s): D64.9 - Anemia, unspecified (4) Diabetes mellitus Current Visit: Yes Status: Chronic Assessment and plan: - Patient was noted to have glucose as low as 24 in ED and was started on D10. - Likely secondary to insulin use in the setting of missing meal. - Glucose > 150 as patient tolerates oral food intake. - Continue to monitor glucose closely. - Hold insulin for now and may resume if patient's blood glucose remains elevated without episode of hypoglycemia. 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 Chart reviewed. Patient is comfortably lying in the bed. Patient denies any shortness of breath, chest pain, dizziness, diarrhea or abdominal pain - Constitutional Vitals: Temp Pulse Resp BP Pulse Ox 97.4 F L 70 16 121/67 97 02/05/17 10:58 02/05/17 10:58 02/05/17 10:58 02/05/17 10:58 02/05/17 10:58 General appearance: Present: cooperative, A&O X 2, morbidly obese, obese - Head Head exam: Present: atraumatic, normocephalic - Eye Eye exam: Present: PERRL, conjuntiva pink, sclera anicteric Pupils: Present: PERRL - Neck Neck exam general surgery: Present: supple, trachea midline. Absent: lymphadenopathy - Respiratory Respiratory exam: Present: CTAB. Absent: accessory muscle use, rales, rhonchi, wheezes - Cardiovascular Cardiovascular exam: Present: RRR, +S1, +S2. Absent: diastolic murmur, gallop, rubs, systolic murmur - GI/Abdominal GI/Abdominal exam: Present: normal bowel sounds, soft, no peritoneal signs. Absent: distended, tenderness - Extremities Exam Extremities exam: Present: warm, radial pulses palpable and symetrical. Absent : calf tenderness, cyanotic, pedal edema - Neurological Exam Neurological exam: Present: CN II-XII intact, oriented X3, no focal deficits. Absent: pronater drift, facial droop, speech deficit - Skin Skin exam: Present: dry, intact Internal Medicine: Result - Labs CBC & Chem 7: 02/05/17 03:48 02/05/17 03:48 Labs: Short CBC 02/05/17 Range/Units 03:48 WBC 11.2 H (4.3-11.1) K/mcL Hgb 8.2 L (12.9-16.9) g/dL Hct 27.5 L (37.5-50.1) % Plt Count 401 H (140-400) K/mcL Neutrophils # 10.5 H (1.6-8.9) K/mcL BMP 02/05/17 03:48 Sodium 134 L Potassium 3.5 Chloride 100 Carbon Dioxide 23 BUN 43 H Creatinine 1.57 H Glucose 456 H Calcium 8.2 L - ABG Interpretation ABG results: ABG ABG pH 7.42 pH Units (7.32-7.45) 02/04/17 00:07 ABG pCO2 46 mmHg (35-45) H 02/04/17 00:07 ABG pO2 24 mmHg (85-104) L* 02/04/17 00:07 ABG O2 Saturation 44 % (95-98) L 02/04/17 00:07 PT/INR, D-dimer PT 34.1 Seconds (9.4-12.1) H 02/03/17 15:57 Consult Discharge Plan - Plan Referrals: Damian Seymour MD [Primary Care Provider] -
[2017-02-05] MEDS ORDERED: *HR* Metformin 500 MG TABLET PO SCH (20:48)
[2017-02-05] MEDS: Insulin DETEMIR 100 UNIT/ML X5UNITS SQ SCH (22:59)
[2017-02-06] MEDS: Ipratropium/Albuterol Neb 3 ML IH SCH ×6 (00:06→20:22)
[2017-02-06] MEDS: MethylPREDNISolone 40 MG/ML VIAL IVP SCH ×3 (05:40→16:54)
[2017-02-06] MEDS: Pantoprazole 40 MG VIAL IVP SCH ×2 (05:40→16:54)
[2017-02-06] MEDS: Budesonide/Formoterol 160/4.5 MDI IH SCH ×2 (07:52→20:22)
[2017-02-06] MEDS: Insulin LISPRO 300 UNITS/3 ML VIAL SQ SCH ×4 (08:21→21:27)
[2017-02-06] MEDS: Furosemide 20 MG/2 ML VIAL IVP SCH ×2 (08:22→16:54)
[2017-02-06] MEDS: Nicotine 21 MG PATCH.TD24 TD SCH (08:23)
[2017-02-06] MEDS: *HR* Amiodarone 200 MG TABLET PO SCH (08:23)
[2017-02-06] MEDS: *HR* SitaGLIPtin 100 MG TABLET PO SCH (08:23)
[2017-02-06] MEDS: Aspirin 81 MG TAB.CHEW PO SCH (08:23)
[2017-02-06] MEDS: Metoprolol XL (24 HR) Succ 50 MG TAB.ER.24H PO SCH (08:23)
[2017-02-06] MEDS: Insulin DETEMIR 100 UNIT/ML X5UNITS SQ SCH ×2 (08:26→21:26)
--- NOTE | 2017-02-06 15:17 | Internal Med Progress Note ---
Date of Encounter: 02/06/17 Time of Encounter: 15:15 - Assessment and plan (1) Acute and chronic respiratory failure Current Visit: No Status: Acute Assessment and plan: - With worsening shortness of breath requiring supplemental oxygen in ED. ( Patient is not on oxygen at home). - Likely secondary to CHF exacerbation and anemia in the setting of COPD and GRAZYNA. - Improves as patient reports breathing much better today compared to yesterday. - Continue diuresis with Lasix for CHF exacerbation. - Will 2 units of pRBC transfusion for anemia. - Bronchodilators, Symbicort and supplemental oxygen for COPD. - CPAP use at night or sleep for GRAZYNA. - Continue to monitor. 02/05/2017 This is likely his admission of CHF exacerbation, secondary to noncompliance. Patient is approaching to his baseline status. We will continue diuresis for now. We will monitor renal function. Noted that creatinine mildly elevated Diuresis is Essential. 02/06/2017 Likely CHF exacerbation. Was recently hospitalized and was discharged prematurely. We will continue diuresis. We will monitor her renal function. Labs for tomorrow. Qualifiers: Respiratory failure complication: hypoxia Qualified Code(s): J96.21 - Acute and chronic respiratory failure with hypoxia (2) Acute congestive heart failure Current Visit: Yes Status: Acute Assessment and plan: exacerbation of her congestive heart failure which is systolic in origin. Patient has issues with his noncompliance. Patient was recently discharged from the hospital. At this point cardiology is on the board. We will follow the recommendation. Qualifiers: Congestive heart failure type: systolic Qualified Code(s): I50.21 - Acute systolic (congestive) heart failure (3) Anemia Current Visit: No Status: Acute Assessment and plan: - Hgb dropped from 7.6 on admission to 7.0 today. - Symptomatic with worsening lightheadedness and shortness of breath. - Concern of GI bleed. Patient had unremarkable EGD and colonoscopy finding of multiple non-bleeding colon polyps on 01/27/17. Patient may need capsule endoscopy for further evaluation. Plan to consult GI once the service is available. - Will type & cross and transfuse 2 units of pRBC. - Closely monitor H&H. 02/05/2017 Hemoglobin stable. We will not transfuse him at this point. Close monitoring of hemoglobin/hematocrit. We will recheck labs tomorrow Qualifiers: Anemia type: unspecified type Qualified Code(s): D64.9 - Anemia, unspecified (4) Diabetes mellitus Current Visit: Yes Status: Chronic Assessment and plan: - Patient was noted to have glucose as low as 24 in ED and was started on D10. - Likely secondary to insulin use in the setting of missing meal. - Glucose > 150 as patient tolerates oral food intake. - Continue to monitor glucose closely. - Hold insulin for now and may resume if patient's blood glucose remains elevated without episode of hypoglycemia. Qualifiers: Diabetes mellitus type: type 2 Diabetes mellitus complication status: with hypoglycemia Diabetes mellitus complication detail: without coma Diabetes mellitus fpc insulin use: without fpc use Qualified Code(s): E11.649 - Type 2 diabetes mellitus with hypoglycemia without coma (5) Essential hypertension Current Visit: No Status: Chronic Assessment and plan: Stable - Subjective Interval history: Seen and examined. Chart reviewed. Patient is comfortably lying in the bed. Patient denies any shortness of breath, chest pain, dizziness, diarrhea or abdominal pain 02/06/2017 Seen and examined. Chart reviewed. Patient is comfortably sitting up in updated. Patient denies any chest pain, abdominal pain, dizziness or diarrhea. - Constitutional Vitals: Temp Pulse Resp BP Pulse Ox 98.0 F 80 16 152/79 98 02/06/17 11:30 02/06/17 11:30 02/06/17 11:30 02/06/17 11:30 02/06/17 11:30 General appearance: Present: cooperative, A&O X 2, morbidly obese, obese - Head Head exam: Present: atraumatic, normocephalic - Eye Eye exam: Present: PERRL, conjuntiva pink, sclera anicteric Pupils: Present: PERRL - Neck Neck exam general surgery: Present: supple, trachea midline. Absent: lymphadenopathy - Respiratory Respiratory exam: Present: CTAB. Absent: accessory muscle use, rales, rhonchi, wheezes - Cardiovascular Cardiovascular exam: Present: RRR, +S1, +S2. Absent: diastolic murmur, gallop, rubs, systolic murmur - GI/Abdominal GI/Abdominal exam: Present: normal bowel sounds, soft, no peritoneal signs. Absent: distended, tenderness - Extremities Exam Extremities exam: Present: warm, radial pulses palpable and symetrical. Absent : calf tenderness, cyanotic, pedal edema - Neurological Exam Neurological exam: Present: CN II-XII intact, oriented X3, no focal deficits. Absent: pronater drift, facial droop, speech deficit - Skin Skin exam: Present: dry, intact Internal Medicine: Result - Labs CBC & Chem 7: 02/05/17 03:48 02/05/17 03:48 - ABG Interpretation ABG results: ABG ABG pH 7.42 pH Units (7.32-7.45) 02/04/17 00:07 ABG pCO2 46 mmHg (35-45) H 02/04/17 00:07 ABG pO2 24 mmHg (85-104) L* 02/04/17 00:07 ABG O2 Saturation 44 % (95-98) L 02/04/17 00:07 PT/INR, D-dimer PT 34.1 Seconds (9.4-12.1) H 02/03/17 15:57 - VTE Documentation of Mechanical Device: Graduated compression elastic hosiery Consult Discharge Plan - Plan Referrals: Damian Seymour MD [Primary Care Provider] -
[2017-02-07] MEDS: Ipratropium/Albuterol Neb 3 ML IH SCH ×7 (00:08→23:32)
[2017-02-07] MEDS: MethylPREDNISolone 40 MG/ML VIAL IVP SCH ×2 (01:16→05:12)
[2017-02-07] MEDS: Pantoprazole 40 MG VIAL IVP SCH ×2 (05:12→18:09)
[2017-02-07 06:10] LABS: Basophils % 0.1 %; Hematocrit 28.3 % (37.5-50.1); Hemoglobin 8.2 g/dL (12.9-16.9); Immature Granulocytes % 0.9 % (0-4); Lymphocytes # 0.2 K/mcL (0.6-4.6); Lymphocytes % 1.4 %; Mean Corpuscular Hemoglobin 22.6 pg (28.0-33.3); Mean Platelet Volume 9.6 fL (9.4-12.4); Monocytes # 0.8 K/mcL (0.0-1.3); Monocytes % 4.8 %; Neutrophils # 15.8 K/mcL (1.6-8.9); Nucleated Red Blood Cells 0.4 /100 WBC (0); Platelet Count 416 K/mcL (140-400); Red Blood Count 3.63 M/mcL (4.19-5.50); Red Cell Distribution Width 18.2 % (11.5-14.5); Segmented Neutrophils % 92.8 %
[2017-02-07 06:28] LABS: Alanine Aminotransferase 26 Units/L (0-55); Albumin 2.4 g/dL (3.5-5.0); Albumin/Globulin Ratio 0.7 (1.1-2.2); Alkaline Phosphatase 86 Units/L (38-126); Aspartate Amino Transferase 17 Units/L (5-34); BUN/Creatinine Ratio 33 (6-26); Bilirubin,Total 0.4 mg/dL (0.2-1.2); Blood Urea Nitrogen 43 mg/dL (8-26); Calcium 8.6 mg/dL (8.6-10.8); Carbon Dioxide 27 mEq/L (19-29); Chloride 99 mEq/L (98-109); Globulin 3.5 g/dL (2.4-3.5); Glucose 300 mg/dL (70-99); Osmolality,Calculated 308 (280-300); Potassium 3.2 mEq/L (3.5-4.5); Sodium 138 mEq/L (136-145); Total Protein 5.9 g/dL (6.0-8.3); eGFR For African Americans > 60 (> 60); eGFR For Non-African Americans 55 (> 60)
[2017-02-07] MEDS: Budesonide/Formoterol 160/4.5 MDI IH SCH ×2 (07:39→19:59)
[2017-02-07 08:13] LABS: Magnesium 2.3 mg/dL (1.6-2.6)
[2017-02-07] MEDS: Insulin LISPRO 300 UNITS/3 ML VIAL SQ SCH ×4 (08:32→19:49)
[2017-02-07] MEDS: *HR* Amiodarone 200 MG TABLET PO SCH (08:33)
[2017-02-07] MEDS: Aspirin 81 MG TAB.CHEW PO SCH (08:33)
[2017-02-07] MEDS: *HR* SitaGLIPtin 100 MG TABLET PO SCH (08:33)
[2017-02-07] MEDS: Metoprolol XL (24 HR) Succ 50 MG TAB.ER.24H PO SCH (08:34)
[2017-02-07] MEDS: Insulin DETEMIR 100 UNIT/ML X5UNITS SQ SCH ×2 (08:35→19:49)
[2017-02-07] MEDS: Nicotine 21 MG PATCH.TD24 TD SCH (08:36)
[2017-02-07] MEDS: Furosemide 20 MG/2 ML VIAL IVP SCH ×2 (08:37→18:12)
--- NOTE | 2017-02-07 10:49 | Discharge Summary ---
<Sonja Pickett - Last Filed: 02/08/17 08:16> Date of Encounter: 02/08/17 Time of Encounter: 07:30 - Discharge Diagnosis (1) Acute and chronic respiratory failure Priority: Primary Status: Acute Qualifiers: Respiratory failure complication: hypoxia Qualified Code(s): J96.21 - Acute and chronic respiratory failure with hypoxia (2) Acute exacerbation of CHF (congestive heart failure) Priority: Secondary Status: Acute Qualifiers: Congestive heart failure type: systolic Qualified Code(s): I50.23 - Acute on chronic systolic (congestive) heart failure (3) Anemia Priority: Secondary Status: Acute Qualifiers: Anemia type: unspecified type Qualified Code(s): D64.9 - Anemia, unspecified (4) Hypokalemia Priority: Secondary Status: Acute (5) Afib Priority: Secondary Status: Chronic Qualifiers: Atrial fibrillation type: chronic Qualified Code(s): I48.2 - Chronic atrial fibrillation (6) COPD (chronic obstructive pulmonary disease) Priority: Secondary Status: Chronic Qualifiers: COPD type: unspecified COPD Qualified Code(s): J44.9 - Chronic obstructive pulmonary disease, unspecified (7) Diabetes mellitus Priority: Secondary Status: Chronic Qualifiers: Diabetes mellitus type: type 2 Diabetes mellitus complication status: with hypoglycemia Diabetes mellitus complication detail: without coma Diabetes mellitus terminal carman insulin use: without terminal carman use Qualified Code(s): E11.649 - Type 2 diabetes mellitus with hypoglycemia without coma (8) Nicotine dependence Priority: Secondary Status: Chronic Qualifiers: Nicotine product type: cigarettes Substance use status: uncomplicated Qualified Code(s): F17.210 - Nicotine dependence, cigarettes, uncomplicated (9) Sleep apnea with use of continuous positive airway pressure (CPAP) Priority: Secondary Status: Acute - Discharge Medications Prescriptions: Furosemide [Lasix] 60 mg PO BID #180 tab predniSONE [PredniSONE] See Taper PO TAPER #21 tablet Home Medications: Amiodarone [Cordarone] 200 mg PO DAILY 04/28/15 [History] Aspirin 81 mg PO DAILY 04/28/15 [History] Atorvastatin [Lipitor] 40 mg PO HS 04/28/15 [History] Citalopram [CeleXA] 40 mg PO DAILY 04/28/15 [History] Docosahexanoic Acid/Epa [Fish Oil Concentrate Softgel] 1 each PO DAILY 04/28/15 [History] Ferrous Sulfate 325 mg PO BIDWM 04/28/15 [History] Garlic 1,000 mg PO DAILY 04/28/15 [History] GlipiZIDE XL (24 HR) [Glucotrol XL] 20 mg PO QAM 04/28/15 [History] Insulin DETEMIR [Levemir] 70 units SQ QAM AND QHS 04/28/15 [History] Meclizine [Antivert] 12.5 - 25 tab PO Q4HR PRN 04/28/15 [History] SitaGLIPtin [Januvia] 100 mg PO DAILY 04/28/15 [History] Albuterol Sulfate [Proair Hfa] 2 puff IH Q4H PRN 01/25/17 [History] Budesonide/Formoterol 160/4.5 [Symbicort 160/4.5] 2 puff IH BIDR 01/25/17 [ History] Metformin HCl [Glucophage] 1,000 mg PO BIDWM 01/25/17 [History] Metoprolol Succinate 200 mg PO DAILY 01/25/17 [History] Tiotropium [Spiriva] 18 mcg IH 0700 01/25/17 [History] Oxygen 2 l NS CONT 02/03/17 [History] Furosemide [Lasix] 60 mg PO BID #180 tab 02/08/17 [Rx] predniSONE [PredniSONE] See Taper PO TAPER #21 tablet 02/08/17 [Rx] Allergies/Adverse Reactions: Allergies bupropion [From Wellbutrin] Allergy (Verified 04/28/15 08:53) Difficulty Breathing codeine Allergy (Verified 04/28/15 08:53) Difficulty Breathing Opioids-Meperidine and Related [Opioids-Meperidine & Related] Allergy (Verified 04/28/15 08:53) Difficulty Breathing Date of admission: 02/03/17 21:38 Primary care physician: Damian Seymour, Consults: 02/04/17 08:41 Consult to Occupational Therapy [CONS] Routine Comment: Evaluate, develop and implement POC Reason for Consult: Referral to [facility] Consult to Physical Therapy [CONS] Routine Comment: Evaluate, develop and implement POC Reason for Consult: Referral to [facility] [facility] 02/04/17 08:43 Consult to Cartographic Engineer [CONS] Routine Reason for SW Consult: Referral to [place] [facility] Discharging clinician: Bor-Waite Nieves Anticipated date of discharge: 02/08/17 - Patient Status Disposition: Transfer Inpatient Rehab Fac Condition: Good Functional capacity at discharge: uses cane/walker Overall status at discharge: patient is progressing back to baseline - Discharge Instructions Follow Up With: Damian Seymour MD [Primary Care Provider] - (Within a week) [facility] [Provider Group] (Unremarkable EGD & colonoscopy finding of multiple non-bleeding colon polyps on 01/27/17. Possible need of capsule endoscopy. Xarelto has been discontinued.) Additional Instructions: Please take by mouth prednisone taper: 40 mg daily for 3 days, then 20 mg daily for 3 days and finally 10 mg daily for 3 days. Please take Lasix 60 mg by mouth twice a day. Please be aware that your Xarelto has been discontinued due to the concern of GI bleed. Please follow up with your primary care physician Dr. Seymour within a week regarding your hospitalization for CHF exacerbation and hypoglycemia. Please follow up with [facility] for possible capsule endoscopy as further work-up for anemia. - Diet and Activity Activity: as per physical therapy Diet: diabetic diet, low fat, low cholesterol, low salt diet Hospital course: Mr. Diaz is a 71 year old male with PMH of A-fib, dCHF, COPD (no home oxygen use), DM and GRAZYNA on home CPAP use. Patient presented with complaint of worsening shortness of breath and was noted to have Hgb 7.6 and glucose 24 in ED with CXR showing pulmonary edema suggestive of CHF. Patient was admitted on for hypoglycemia and acute on chronic respiratory failure with hypoxia secondary to acute CHF exacerbation in the setting of anemia. Patient's Hgb dropped to 7.0 on 02/04/17 but increased to 8.2 on 02/05/17 after receiving 2 units of pRBC transfusion. Xarelto has been held for the concern of possible GI bleed. Patient's respiratory status continues to improve with diuresis using Lasix for CHF (net negative 10.4 L so far), steroid & bronchodilators for COPD and CPAP use for GRAZYNA. Given patient is able to maintain good saturation on room air and remains hemodynamically stable, patient will be discharged to [facility] as recommended by PT/OT. Patient will have his Lasix PO increased to 60 mg PO BID. Patient will also finish PO prednisone taper: 40 mg daily for 3 days, then 20 mg daily for 3 days and finally 10 mg daily for 3 days. Patient's Xarelto will be discontinued at this time for the concern of GI bleed. Patient is instructed to follow up with primary care physician Dr. Seymour within a week regarding his hospitalization for CHF exacerbation and hypoglycemia. Patient will also be referred to [facility] for possible capsule endoscopy as further work-up for anemia/GI bleed. - Time Spent with Patient Total time spent providing and/or coordinating discharge services: Greater than 30 minutes - Constitutional Vitals: Temp Pulse Resp BP Pulse Ox 98.3 F 99 16 138/79 96 02/07/17 05:02 02/07/17 05:02 02/07/17 05:02 02/07/17 05:02 02/07/17 05:02 General appearance: Present: cooperative, A&O X 3, morbidly obese, obese - Head Head exam: Present: atraumatic, normocephalic - Eye Eye exam: Present: EOMI, PERRL, conjuntiva pink, sclera anicteric - Neck Neck exam general surgery: Present: supple, trachea midline. Absent: lymphadenopathy - Respiratory Respiratory exam: Present: CTAB. Absent: accessory muscle use, rales, rhonchi, wheezes - Cardiovascular Cardiovascular exam: Present: +S1, +S2, tachycardia. Absent: diastolic murmur, gallop, rubs, systolic murmur - GI/Abdominal GI/Abdominal exam: Present: normal bowel sounds, soft, no peritoneal signs. Absent: distended, tenderness - Extremities Exam Extremities exam: Present: pedal edema (Moderate BLE pitting edema), warm, radial pulses palpable and symetrical. Absent: calf tenderness, cyanotic - Neurological Exam Neurological exam: Present: CN II-XII intact, oriented X3, no focal deficits. Absent: pronater drift, facial droop, speech deficit - Skin Skin exam: Present: dry, intact, warm - VTE Documentation of Mechanical Device: Venous foot pump, device <Demond Mcgraw P - Last Filed: 02/08/17 17:25> Date of Encounter: 02/08/17 - Discharge Diagnosis (1) Acute and chronic respiratory failure Status: Acute Qualifiers: Respiratory failure complication: hypoxia Qualified Code(s): J96.21 - Acute and chronic respiratory failure with hypoxia (2) Acute congestive heart failure Status: Acute Qualifiers: Congestive heart failure type: systolic Qualified Code(s): I50.21 - Acute systolic (congestive) heart failure (3) Anemia Status: Acute Qualifiers: Anemia type: unspecified type Qualified Code(s): D64.9 - Anemia, unspecified (4) Diabetes mellitus Status: Chronic Qualifiers: Diabetes mellitus type: type 2 Diabetes mellitus complication status: with hypoglycemia Diabetes mellitus complication detail: without coma Diabetes mellitus detention insulin use: without terminal carman use Qualified Code(s): E11.649 - Type 2 diabetes mellitus with hypoglycemia without coma (5) Essential hypertension Status: Chronic Date of admission: 02/03/17 21:38 Primary care physician: Damian Seymour, Consults: 02/04/17 08:41 Consult to Occupational Therapy [CONS] Routine Comment: Evaluate, develop and implement POC Reason for Consult: Referral to [facility] Consult to Physical Therapy [CONS] Routine Comment: Evaluate, develop and implement POC Reason for Consult: Referral to [facility] 02/04/17 08:43 Consult to Cartographic Engineer [CONS] Routine Reason for SW Consult: Referral to [facility] Hospital course: Mr. Diaz is a 71 year old male - Time Spent with Patient Total time spent providing and/or coordinating discharge services: - Constitutional Vitals: Temp Pulse Resp BP Pulse Ox 98.0 F 96 16 113/83 96 02/08/17 11:21 02/08/17 11:21 02/08/17 16:18 02/08/17 11:21 02/08/17 16:18 - Attending Attestation I examined this patient and my medical decision-making was reviewed with the FACILITIES OPERATOR/PA/Advanced Practice Nurse/Resident Physician. I agree with the documented findings, disposition and treatment plan as described except to the extent set forth below.
--- NOTE | 2017-02-07 14:13 | Internal Med Progress Note ---
<Sonja Pickett - Last Filed: 02/07/17 14:36> Date of Encounter: 02/07/17 Time of Encounter: 09:00 - Assessment and plan (1) Acute and chronic respiratory failure Current Visit: No Status: Acute Assessment and plan: - With worsening shortness of breath requiring supplemental oxygen in ED. ( Patient is not on oxygen at home). - Likely secondary to CHF exacerbation (due to non-compliance) and anemia in the setting of COPD and GRAZYNA. - Improves as patient breathes well and is able to maintain good saturation on room air. - Continue diuresis with Lasix for CHF exacerbation while monitoring kidney function. - S/p 2 units of pRBC transfusion for anemia and Hgb stable since. - Steroid, bronchodilators, Symbicort and as needed supplemental oxygen for COPD. - CPAP use at night or sleep for GRAZYNA. - Continue to monitor. - Possible discharge to [facility] tomorrow once it's arranged and the facility is ready to take patient. Qualifiers: Respiratory failure complication: hypoxia Qualified Code(s): J96.21 - Acute and chronic respiratory failure with hypoxia (2) Acute exacerbation of CHF (congestive heart failure) Current Visit: Yes Status: Acute Assessment and plan: - With worsening shortness of breath, bilateral lower extremity edema and significant recent weight gain on initial presentation. - CXR on admission suggests worsening pulmonary edema compared to prior CXR 9 days ago. - Echo on 01/26/17 found LVEF 45% with mild global LV hypokinesis. - Improves as patient reports better breathing after aggressive diuresis with IV Lasix. - SCr improves form 1.57 yesterday to 1.29 today. - Continue diuresis with Lasix. - Continue to monitor respiratory status and kidney function. Qualifiers: Congestive heart failure type: systolic Qualified Code(s): I50.23 - Acute on chronic systolic (congestive) heart failure (3) Anemia Current Visit: No Status: Acute Assessment and plan: - Hgb dropped from 7.6 on admission to 7.0 on 02/04/17 - Symptomatic with worsening lightheadedness and shortness of breath. - Concern of GI bleed. Patient had unremarkable EGD and colonoscopy finding of multiple non-bleeding colon polyps on 01/27/17. Will refer to outpatient GI for possible need of capsule endoscopy as further evaluation. - Status post 2 units of pRBC transfusion on 02/04/17. - Hgb stable at 8.2 today. - Closely monitor H&H. Qualifiers: Anemia type: unspecified type Qualified Code(s): D64.9 - Anemia, unspecified (4) Hypokalemia Current Visit: No Status: Acute Assessment and plan: - K as low as 2.9 on 02/03/17 - K 3.2 today. - Continue to monitor and replenish as needed. (5) Afib Current Visit: No Status: Chronic Assessment and plan: - Chronic A-fib s/p pace maker placement. - Currently rate controlled. Continue metoprolol. - Was on Xarelto but will hold anticoagulation at this time given the concern of anemia from GI bleed. Continue aspirin. - Will have patient follow up with his PCP to discuss about further anticoagulation choice. Qualifiers: Atrial fibrillation type: chronic Qualified Code(s): I48.2 - Chronic atrial fibrillation (6) COPD (chronic obstructive pulmonary disease) Current Visit: No Status: Chronic Assessment and plan: - Continue bronchodilators, Symbicort and as needed supplemental oxygen. - Will switch from Solu-Medrol to prednisone 40 mg PO daily. Will have prednisone taper if patient gets discharged. Qualifiers: COPD type: unspecified COPD Qualified Code(s): J44.9 - Chronic obstructive pulmonary disease, unspecified (7) Diabetes mellitus Current Visit: Yes Status: Chronic Assessment and plan: - Patient was noted to have glucose as low as 24 in ED and was started on D10. - That hypoglycemia episode is likely secondary to insulin use in the setting of missing meal. - Glucose in 300s most of time. Expected to improve as decrease in steroid use. - Continue basal & sliding scale insulin with routine glucose monitoring. Qualifiers: Diabetes mellitus type: type 2 Diabetes mellitus complication status: with hypoglycemia Diabetes mellitus complication detail: without coma Diabetes mellitus prison insulin use: without rat exterminator use Qualified Code(s): E11.649 - Type 2 diabetes mellitus with hypoglycemia without coma (8) Nicotine dependence Current Visit: No Status: Chronic Assessment and plan: - Patient admits recent smoking and marijuana use. - Smoking cessation counseling. - Okay to give nicotine patch. Qualifiers: Nicotine product type: cigarettes Substance use status: uncomplicated Qualified Code(s): F17.210 - Nicotine dependence, cigarettes, uncomplicated (9) Sleep apnea with use of continuous positive airway pressure (CPAP) Current Visit: Yes Status: Acute Assessment and plan: - With home CPAP use at night. - Continue CPAP use at night or sleep during patient's hospital stay. - Subjective Interval history: No significant event noted overnight. Patient was seen and examined this morning. Patient reports breathing well and is able to maintain good saturation on room air throughout this morning. Patient denies syncope, chest pain/ discomfort, palpitation, fever, chills, nausea, vomiting. - Constitutional Vitals: Temp Pulse Resp BP Pulse Ox 98.3 F 99 16 138/79 96 02/07/17 05:02 02/07/17 05:02 02/07/17 11:01 02/07/17 05:02 02/07/17 11:01 General appearance: Present: cooperative, A&O X 2, morbidly obese, obese - Head Head exam: Present: atraumatic, normocephalic - Eye Eye exam: Present: EOMI, PERRL, conjuntiva pink, sclera anicteric - Neck Neck exam general surgery: Present: supple, trachea midline. Absent: lymphadenopathy - Respiratory Respiratory exam: Present: CTAB. Absent: accessory muscle use, rales, rhonchi, wheezes - Cardiovascular Cardiovascular exam: Present: RRR, +S1, +S2. Absent: diastolic murmur, gallop, rubs, systolic murmur - GI/Abdominal GI/Abdominal exam: Present: normal bowel sounds, soft, no peritoneal signs. Absent: distended, tenderness - Extremities Exam Extremities exam: Present: pedal edema (Mild BLE edema), warm, radial pulses palpable and symetrical. Absent: calf tenderness, cyanotic - Neurological Exam Neurological exam: Present: CN II-XII intact, oriented X3, no focal deficits. Absent: pronater drift, facial droop, speech deficit - Skin Skin exam: Present: dry, intact, warm Internal Medicine: Result - Labs CBC & Chem 7: 02/07/17 05:35 02/07/17 05:35 Labs: Short CBC 02/07/17 Range/Units 05:35 WBC 17.0 H D (4.3-11.1) K/mcL Hgb 8.2 L (12.9-16.9) g/dL Hct 28.3 L (37.5-50.1) % Plt Count 416 H (140-400) K/mcL Neutrophils # 15.8 H (1.6-8.9) K/mcL BMP 02/07/17 05:35 Sodium 138 Potassium 3.2 L Chloride 99 Carbon Dioxide 27 BUN 43 H Creatinine 1.29 H Glucose 300 H Calcium 8.6 Liver Function 02/07/17 Range/Units 05:35 Total Bilirubin 0.4 (0.2-1.2) mg/dL AST 17 (5-34) Units/L ALT 26 (0-55) Units/L Alkaline Phosphatase 86 (38-126) Units/L Albumin 2.4 L (3.5-5.0) g/dL - ABG Interpretation ABG results: ABG ABG pH 7.42 pH Units (7.32-7.45) 02/04/17 00:07 ABG pCO2 46 mmHg (35-45) H 02/04/17 00:07 ABG pO2 24 mmHg (85-104) L* 02/04/17 00:07 ABG O2 Saturation 44 % (95-98) L 02/04/17 00:07 PT/INR, D-dimer PT 34.1 Seconds (9.4-12.1) H 02/03/17 15:57 - VTE Documentation of Mechanical Device: Venous foot pump, device Consult Discharge Plan - Plan Referrals: Damian Seymour MD [Primary Care Provider] - <Demond Mcgraw P - Last Filed: 02/07/17 16:54> Date of Encounter: 02/07/17 - Assessment and plan (1) Acute and chronic respiratory failure Current Visit: No Status: Acute Qualifiers: Respiratory failure complication: hypoxia Qualified Code(s): J96.21 - Acute and chronic respiratory failure with hypoxia (2) Acute congestive heart failure Current Visit: Yes Status: Acute Qualifiers: Congestive heart failure type: systolic Qualified Code(s): I50.21 - Acute systolic (congestive) heart failure (3) Anemia Current Visit: No Status: Acute Qualifiers: Anemia type: unspecified type Qualified Code(s): D64.9 - Anemia, unspecified (4) Diabetes mellitus Current Visit: Yes Status: Chronic Qualifiers: Diabetes mellitus type: type 2 Diabetes mellitus complication status: with hypoglycemia Diabetes mellitus complication detail: without coma Diabetes mellitus rat exterminator insulin use: without rat exterminator use Qualified Code(s): E11.649 - Type 2 diabetes mellitus with hypoglycemia without coma (5) Essential hypertension Current Visit: No Status: Chronic - Constitutional Vitals: Temp Pulse Resp BP Pulse Ox 98.3 F 89 12 138/79 99 02/07/17 05:02 02/07/17 15:00 02/07/17 15:48 02/07/17 15:48 02/07/17 15:48 Internal Medicine: Result - Labs CBC & Chem 7: 02/07/17 05:35 02/07/17 05:35 Labs: Short CBC 02/07/17 Range/Units 05:35 WBC 17.0 H D (4.3-11.1) K/mcL Hgb 8.2 L (12.9-16.9) g/dL Hct 28.3 L (37.5-50.1) % Plt Count 416 H (140-400) K/mcL Neutrophils # 15.8 H (1.6-8.9) K/mcL BMP 02/07/17 05:35 Sodium 138 Potassium 3.2 L Chloride 99 Carbon Dioxide 27 BUN 43 H Creatinine 1.29 H Glucose 300 H Calcium 8.6 Liver Function 02/07/17 Range/Units 05:35 Total Bilirubin 0.4 (0.2-1.2) mg/dL AST 17 (5-34) Units/L ALT 26 (0-55) Units/L Alkaline Phosphatase 86 (38-126) Units/L Albumin 2.4 L (3.5-5.0) g/dL - ABG Interpretation ABG results: ABG ABG pH 7.42 pH Units (7.32-7.45) 02/04/17 00:07 ABG pCO2 46 mmHg (35-45) H 02/04/17 00:07 ABG pO2 24 mmHg (85-104) L* 02/04/17 00:07 ABG O2 Saturation 44 % (95-98) L 02/04/17 00:07 PT/INR, D-dimer PT 34.1 Seconds (9.4-12.1) H 02/03/17 15:57 - Attending Attestation I examined this patient and my medical decision-making was reviewed with the SEMIAUTOMATIC STITCHER OPERATOR/PA/Advanced Practice Nurse/Resident Physician. I agree with the documented findings, disposition and treatment plan as described except to the extent set forth below.
[2017-02-08] MEDS: Ipratropium/Albuterol Neb 3 ML IH SCH ×4 (03:56→16:16)
[2017-02-08] MEDS: Pantoprazole 40 MG VIAL IVP SCH (04:46)
[2017-02-08 05:14] LABS: Basophils % 0.1 %; Eosinophils % 0.2 %; Hematocrit 27.7 % (37.5-50.1); Hemoglobin 8.3 g/dL (12.9-16.9); Lymphocytes # 0.5 K/mcL (0.6-4.6); Lymphocytes % 2.8 %; Mean Corpuscular Hemoglobin 23.1 pg (28.0-33.3); Mean Corpuscular Volume 76.9 fL (83.0-100.0); Mean Platelet Volume 9.3 fL (9.4-12.4); Monocytes # 1.5 K/mcL (0.0-1.3); Monocytes % 9.1 %; Neutrophils # 14.4 K/mcL (1.6-8.9); Nucleated Red Blood Cells 0.3 /100 WBC (0); Platelet Count 387 K/mcL (140-400); Red Cell Distribution Width 18.3 % (11.5-14.5); Segmented Neutrophils % 86.8 %
[2017-02-08 05:38] LABS: Alanine Aminotransferase 33 Units/L (0-55); Albumin 2.5 g/dL (3.5-5.0); Albumin/Globulin Ratio 0.8 (1.1-2.2); Alkaline Phosphatase 85 Units/L (38-126); Aspartate Amino Transferase 24 Units/L (5-34); BUN/Creatinine Ratio 36 (6-26); Bilirubin,Total 0.4 mg/dL (0.2-1.2); Blood Urea Nitrogen 37 mg/dL (8-26); Calcium 8.5 mg/dL (8.6-10.8); Carbon Dioxide 31 mEq/L (19-29); Chloride 101 mEq/L (98-109); Globulin 3.3 g/dL (2.4-3.5); Glucose 162 mg/dL (70-99); Osmolality,Calculated 302 (280-300); Potassium 3.3 mEq/L (3.5-4.5); Sodium 140 mEq/L (136-145); Total Protein 5.8 g/dL (6.0-8.3); eGFR For African Americans > 60 (> 60); eGFR For Non-African Americans > 60 (> 60)
[2017-02-08] MEDS: Budesonide/Formoterol 160/4.5 MDI IH SCH (07:58)
[2017-02-08] MEDS: Nicotine 21 MG PATCH.TD24 TD SCH (08:23)
[2017-02-08] MEDS: *HR* SitaGLIPtin 100 MG TABLET PO SCH (08:23)
[2017-02-08] MEDS: Furosemide 20 MG/2 ML VIAL IVP SCH (08:23)
[2017-02-08] MEDS: Aspirin 81 MG TAB.CHEW PO SCH (08:24)
[2017-02-08] MEDS: Metoprolol XL (24 HR) Succ 50 MG TAB.ER.24H PO SCH (08:24)
[2017-02-08] MEDS: *HR* Amiodarone 200 MG TABLET PO SCH (08:24)
[2017-02-08] MEDS: Insulin DETEMIR 100 UNIT/ML X5UNITS SQ SCH (08:25)
[2017-02-08] MEDS: Insulin LISPRO 300 UNITS/3 ML VIAL SQ SCH ×3 (08:26→17:18)
[2017-02-08] MEDS ORDERED: predniSONE 20 MG TABLET PO SCH (09:00)
--- NOTE | 2017-02-08 09:00 | Physician Discharge Referral ---
<Sonja Pickett - Last Filed: 02/08/17 10:21> ExtendedCare Referral Info Transfer To: [facility] Provider in Charge after Transfer: PCP Institutional Level of Care: Skilled - Diagnosis (1) Acute and chronic respiratory failure Priority: Primary Status: Acute (2) Acute exacerbation of CHF (congestive heart failure) Priority: Secondary Status: Acute (3) Anemia Priority: Secondary Status: Acute (4) Hypokalemia Priority: Secondary Status: Acute (5) Afib Priority: Secondary Status: Chronic (6) COPD (chronic obstructive pulmonary disease) Priority: Secondary Status: Chronic (7) Diabetes mellitus Priority: Secondary Status: Chronic (8) Nicotine dependence Priority: Secondary Status: Chronic (9) Sleep apnea with use of continuous positive airway pressure (CPAP) Priority: Secondary Status: Acute Prognosis: Fair Aware of Diagnosis: Patient Aware of Prognosis: Patient - Transfer Medications Prescriptions: Furosemide [Lasix] 60 mg PO BID #180 tab predniSONE [PredniSONE] See Taper PO TAPER #21 tablet Home Medications: Amiodarone [Cordarone] 200 mg PO DAILY 04/28/15 [History] Aspirin 81 mg PO DAILY 04/28/15 [History] Atorvastatin [Lipitor] 40 mg PO HS 04/28/15 [History] Citalopram [CeleXA] 40 mg PO DAILY 04/28/15 [History] Docosahexanoic Acid/Epa [Fish Oil Concentrate Softgel] 1 each PO DAILY 04/28/15 [History] Ferrous Sulfate 325 mg PO BIDWM 04/28/15 [History] Garlic 1,000 mg PO DAILY 04/28/15 [History] GlipiZIDE XL (24 HR) [Glucotrol XL] 20 mg PO QAM 04/28/15 [History] Insulin DETEMIR [Levemir] 70 units SQ QAM AND QHS 04/28/15 [History] Meclizine [Antivert] 12.5 - 25 tab PO Q4HR PRN 04/28/15 [History] SitaGLIPtin [Januvia] 100 mg PO DAILY 04/28/15 [History] Albuterol Sulfate [Proair Hfa] 2 puff IH Q4H PRN 01/25/17 [History] Budesonide/Formoterol 160/4.5 [Symbicort 160/4.5] 2 puff IH BIDR 01/25/17 [ History] Metformin HCl [Glucophage] 1,000 mg PO BIDWM 01/25/17 [History] Metoprolol Succinate 200 mg PO DAILY 01/25/17 [History] Tiotropium [Spiriva] 18 mcg IH 0700 01/25/17 [History] Oxygen 2 l NS CONT 02/03/17 [History] Furosemide [Lasix] 60 mg PO BID #180 tab 02/08/17 [Rx] predniSONE [PredniSONE] See Taper PO TAPER #21 tablet 02/08/17 [Rx] Allergies/Adverse Reactions: Allergies bupropion [From Wellbutrin] Allergy (Verified 04/28/15 08:53) Difficulty Breathing codeine Allergy (Verified 04/28/15 08:53) Difficulty Breathing Opioids-Meperidine and Related [Opioids-Meperidine & Related] Allergy (Verified 04/28/15 08:53) Difficulty Breathing - Respiratory Orders Smoking Cessation: Smoking cessation has been advised. For more information, call the [employer] Line at 4-130-EJEM-NOW. - Mobility Orders Ambulate (With walker) - Rehabiliation Orders Rehab Potential: Good Rehab Orders: Evaluation for Physical Therapy, Evaluation for Occupational Therapy - Diet Orders No Added Salt (LAMINE) (Fluid restriction of 1.5L/day), No Concentrated Sweets, Cardiac CERTIFICATION: I certify that the transfer of the above named patient to an Extended Care Facility is necessary for the continuing treatment of the diagnosis listed. The above information is true and accurate reflection of patient's current condition. Confidential - Redisclosure prohibited without a patient's written consent. <Demond Mcgraw P - Last Filed: 02/08/17 17:26> - Diagnosis (1) Acute and chronic respiratory failure Status: Acute (2) Acute congestive heart failure Status: Acute (3) Anemia Status: Acute (4) Diabetes mellitus Status: Chronic (5) Essential hypertension Status: Chronic - Respiratory Orders Smoking Cessation: Smoking cessation has been advised. For more information, call the [employer] Quit Line at 6-084-VDXB-NOW. CERTIFICATION: I certify that the transfer of the above named patient to an Extended Care Facility is necessary for the continuing treatment of the diagnosis listed. The above information is true and accurate reflection of patient's current condition. Confidential - Redisclosure prohibited without a patient's written consent.
[2017-02-08 11:26] VITALS: BP 113/83
--- NOTE | 2017-02-08 16:53 | Electrocardiograph Report ---
[address] [place], [place] [address] Test Date: 2017-02-03 Pat Name: Jaime Diaz Department: 102 Room: 2NE24 Gender: M Charge Master Coordinator: Kit : 1945 Requested By: Diya Patricio Order Number: [id number] Reading MD: Damian Calderon Measurements Intervals [place] Rate: 76 P: OK: 0 QRS: 118 QRSD: 216 T: -39 QT: 525 QTc: 555 Interpretive Statements ATRIAL FLUTTER/TACHYCARDIA MARKED RIGHT AXIS DEVIATION RIGHT BUNDLE BRANCH BLOCK ST DEPRESSION, CONSIDER SUBENDOCARDIAL INJURY Electronically Signed On 02-08-2017 16:51:34 EDT by Damian Calderon
== END 2017-02-08 18:02 | DRG 291 ==
LOC: 2NENU 15:06 → EMEROO 15:06 → 2NENU 18:56
PROVIDERS: ADMIT Registered Nurse; ATTEND Internal Medicine

== ENCOUNTER 2017-03-15 04:43 | Inpatient (IN) ==
--- NOTE | 2017-03-15 04:51 | Emergency Department Note ---
Disposition Clinical Impression: Pulmonary edema, Hypokalemia Acute exacerbation of CHF (congestive heart failure) Qualifiers: Congestive heart failure type: unspecified congestive heart failure type Qualified Code(s): I50.9 - Heart failure, unspecified GI bleed Qualifiers: GI bleed type/associated pathology: melena Qualified Code(s): K92.1 - Melena Disposition: Admitted As Inpatient Condition: Fair Referrals: NO,PCP [Non-Partnered Physician] - Forms: ED Satisfaction Letter Time of Disposition: 05:59 SOB HPI - General Chief Complaint: ED Shortness of Breath/Dyspnea Stated Complaint: Difficulty in breathing Time Seen by Provider: 03/15/17 04:49 Source: patient, EMS Mode of arrival: EMS Limitations: age Nursing Notes Reviewed: Yes Vital Signs Reviewed: Yes - History of Present Illness Patient presents to the ED via EMS with the chief complaint of shortness of breath. EMS reports that they see this patient often and that he called them this morning for difficulty in breathing. When they arrived they noticed that he was having difficulty breathing and got him in the truck and noticed his oxygen saturations were in the upper 80s. They placed him on increased oxygen from baseline. Noted that he was somewhat confused, which prompted them to check her blood sugar which was in the low 60s. They gave him some orange juice which did not help, so they have then gave him glucagon and his repeat sugar was in the 80s. Patient is a poor historian but does know his name, year and hospital. He states that earlier today he had an episode of melena. Does have a history of GI bleeds. He is unsure if he is on any blood thinners or anticoagulants other than a baby aspirin. He denies any chest pain, but is unsure if he is having any previous coronary artery disease. Denies any headaches. No fevers. No vomiting. States that he takes insulin twice a day, but he is unsure when he ate last. - Related Data Home Medications Medication Instructions Recorded Confirmed Amiodarone [Cordarone] 200 mg PO DAILY 04/28/15 02/08/17 Aspirin 81 mg PO DAILY 04/28/15 02/08/17 Atorvastatin [Lipitor] 40 mg PO HS 04/28/15 02/08/17 Citalopram [CeleXA] 40 mg PO DAILY 04/28/15 02/08/17 Docosahexanoic Acid/Epa [Fish Oil 1 each PO DAILY 04/28/15 02/08/17 Concentrate Softgel] Ferrous Sulfate 325 mg PO BIDWM 04/28/15 02/08/17 Garlic 1,000 mg PO DAILY 04/28/15 02/08/17 GlipiZIDE XL (24 HR) [Glucotrol XL] 20 mg PO QAM 04/28/15 02/08/17 Insulin DETEMIR [Levemir] 70 units SQ QAM AND QHS 04/28/15 02/08/17 Meclizine [Antivert] 12.5 - 25 tab PO Q4HR PRN 04/28/15 02/08/17 SitaGLIPtin [Januvia] 100 mg PO DAILY 04/28/15 02/08/17 Albuterol Sulfate [Proair Hfa] 2 puff IH Q4H PRN 01/25/17 02/08/17 Budesonide/Formoterol 160/4.5 2 puff IH BIDR 01/25/17 02/08/17 [Symbicort 160/4.5] Metformin HCl [Glucophage] 1,000 mg PO BIDWM 01/25/17 02/08/17 Metoprolol Succinate 200 mg PO DAILY 01/25/17 02/08/17 Tiotropium [Spiriva] 18 mcg IH 0700 01/25/17 02/08/17 Oxygen 2 l NS CONT 02/03/17 02/03/17 Previous Rx's Medication Instructions Recorded Furosemide [Lasix] 60 mg PO BID #180 tab 02/08/17 predniSONE [PredniSONE] See Taper PO TAPER #21 tablet 02/08/17 Albuterol Sulfate [Albuterol 2 puff IH Q4H PRN #0 inhaler 02/23/17 Inhaler] Dextrose Gel [Gluctose] 30 gm PO ONCE PRN #0 gel..gram. 02/23/17 GlipiZIDE XL (24 HR) [Glucotrol XL] 20 mg PO QAM tab.er.24 02/23/17 Glucagon, Human Recombinant 1 mg IM ONCE PRN #0 vial 02/23/17 [Glucagen] Insulin DETEMIR [Levemir] 70 unit SQ 0900 [id number] 02/23/17 Insulin LISPRO [HumaLOG] 0 units SQ TIDAC vial 02/23/17 Meclizine [Antivert] 25 mg PO Q4HR PRN #0 tablet 02/23/17 Nicotine Patch [Nicoderm] 21 mg TD DAILY #30 patch.td24 02/23/17 Nitroglycerin 0.4 mg SL Q5MIN PRN #0 tab.subl 02/23/17 Patient Taking Own Medication 0 each PO DAILY each 02/23/17 Patient Taking Own Medication 0 each PO DAILY each 02/23/17 Potassium Chloride 8 meq PO DAILY tablet.er 02/23/17 Tiotropium [Spiriva] 18 mcg IH 0800 #30 inh 02/23/17 metFORMIN [Glucophage] 1,000 mg PO BIDWM tablet 02/23/17 Allergies Allergy/AdvReac Type Severity Reaction Status Date / Time bupropion [From Wellbutrin] Allergy Difficulty Verified 04/28/15 08:53 Breathing codeine Allergy Difficulty Verified 04/28/15 08:53 Breathing Opioids-Meperidine and Allergy Difficulty Verified 04/28/15 08:53 Related Breathing [Opioids-Meperidine & Related] Constitutional: Denies: fever Cardiovascular: Denies: chest pain Gastrointestinal: Reports: melena. Denies: abdominal pain Integumentary: Denies: rash Past Medical History - Past Medical History Attestation: Yes The following information was validated with the patient. Source: old records reviewed Medical history: Reports: arthritis, atrial fibrillation, CHF, COPD, diabetes, hyperlipidemia, hypertension Surgical history: Reports: orthopedic, other, pacemaker/AICD Psychiatric history: Reports: no psych history - Social History Smoking Status: Current every day smoker Smokeless Tobacco Status: No Alcohol use: Reports: none Drug use: Reports: marijuana Physical Exam - General Limitations: age General appearance: alert, in no apparent distress, obese - Head Head exam: atraumatic, normocephalic, normal inspection - Eye Eye exam: Present: normal appearance, PERRL, EOMI - ENT ENT exam: normal exam, normal oropharynx, mucous membranes moist - Chest Chest inspection: Present: normal inspection, symmetric chest wall rise - Respiratory Respiratory exam: Absent: normal lung sounds bilaterally (Decreased breath sounds bilaterally, likely related to body habitus), respiratory distress - Cardiovascular Cardiovascular exam: Present: tachycardia. Absent: systolic murmur - Abdominal Exam Abdominal exam: Present: soft, Non-Tender, distention (The patient's baseline) - Rectal Exam Consulting It Architect present during exam: Yes Rectal exam: Present: normal rectal tone, heme (+) stool, hemorrhoids. Absent: black stool, bloody stool - Extremities Exam Extremities exam: Present: normal capillary refill, pedal edema - Neurological Exam Neurological exam: Present: alert, oriented X3 (Oriented to name, year and hospital) - Skin Skin exam: Present: warm, dry, intact, normal color Course Course Narrative: 71-year-old male presenting with shortness of breath. History of COPD and is on oxygen at home. Also hypoglycemic. Patient is complaining of one episode of melena. We will check labs. Hemoccult chest x-ray, EKG. Disposition pending - Reevaluation(s) Reevaluation #1: Will add on a lactic acid due to his potential pneumonia. He will not get a fluid bolus due to his pulmonary edema. No need for transfusion at this time. We will replace potassium and admitted. Vital Signs Temperature 97.8 F 03/15/17 04:46 Pulse Rate 116 03/15/17 04:46 Respiratory Rate 22 03/15/17 04:46 Blood Pressure 122/74 03/15/17 04:46 O2 Sat by Pulse Oximetry 95 03/15/17 04:46 Temperature 97.8 F 03/15/17 04:46 Pulse Rate 115 03/15/17 04:54 Respiratory Rate 22 03/15/17 04:54 Blood Pressure 122/74 03/15/17 04:54 O2 Sat by Pulse Oximetry 95 03/15/17 05:11 Oxygen Delivery Oxygen Delivery Nasal Cannula Shortness of Breath/Dyspnea - Medical Records Medical records reviewed: Yes I reviewed the patient's medical records. - Lab Data Lab results reviewed: Yes I reviewed the patient's lab results. Result diagrams: 03/15/17 04:55 03/15/17 04:55 Lab Results 03/15/17 03/15/17 03/15/17 Range/Units 04:55 04:55 04:55 WBC 12.5 H (4.3-11.1) K/mcL RBC 3.77 L (4.19-5.50) M/mcL Hgb 9.3 L (12.9-16.9) g/dL Hct 31.7 L (37.5-50.1) % MCV 84.1 (83.0-100.0) fL MCH 24.7 L (28.0-33.3) pg MCHC 29.3 L (31.6-35.5) g/dL RDW 25.1 H (11.5-14.5) % Plt Count 434 H (140-400) K/mcL MPV 8.7 L (9.4-12.4) fL Immature Gran % 0.6 (0-4) % Seg Neutrophils % 81.6 % Lymphocytes % 6.4 % Monocytes % 10.2 % Eosinophils % 0.6 % Basophils % 0.6 % Neutrophils # 10.2 H (1.6-8.9) K/mcL Lymphocytes # 0.8 (0.6-4.6) K/mcL Monocytes # 1.3 (0.0-1.3) K/mcL Eosinophils # 0.1 (0.0-0.6) K/mcL Basophils # 0.1 (0.0-0.2) K/mcL Platelet Estimate Increased H (Normal) Large Platelets Present A (Not Present) Anisocytosis 2+ A (Not Present) PT 15.6 H (9.4-12.1) Seconds INR 1.4 APTT 31.0 (26.0-36.0) Seconds Sodium 139 (136-145) mEq/L Potassium 2.8 L (3.5-4.5) mEq/L Chloride 101 (98-109) mEq/L Carbon Dioxide 26 (19-29) mEq/L BUN 27 H (8-26) mg/dL Creatinine 1.04 (0.72-1.25) mg/dL Est GFR ( Amer) > 60 (> 60) Est GFR (Non-Af Amer) > 60 (> 60) BUN/Creatinine Ratio 26 (6-26) Glucose 79 (70-99) mg/dL Calculated Osmolality 292 (280-300) Calcium 8.4 L (8.6-10.8) mg/dL Troponin I (0-0.03) ng/mL B-Natriuretic Peptide (0-100) pg/mL 03/15/17 03/15/17 Range/Units 04:55 04:55 WBC (4.3-11.1) K/mcL RBC (4.19-5.50) M/mcL Hgb (12.9-16.9) g/dL Hct (37.5-50.1) % MCV (83.0-100.0) fL MCH (28.0-33.3) pg MCHC (31.6-35.5) g/dL RDW (11.5-14.5) % Plt Count (140-400) K/mcL MPV (9.4-12.4) fL Immature Gran % (0-4) % Seg Neutrophils % % Lymphocytes % % Monocytes % % Eosinophils % % Basophils % % Neutrophils # (1.6-8.9) K/mcL Lymphocytes # (0.6-4.6) K/mcL Monocytes # (0.0-1.3) K/mcL Eosinophils # (0.0-0.6) K/mcL Basophils # (0.0-0.2) K/mcL Platelet Estimate (Normal) Large Platelets (Not Present) Anisocytosis (Not Present) PT (9.4-12.1) Seconds INR APTT (26.0-36.0) Seconds Sodium (136-145) mEq/L Potassium (3.5-4.5) mEq/L Chloride (98-109) mEq/L Carbon Dioxide (19-29) mEq/L BUN (8-26) mg/dL Creatinine (0.72-1.25) mg/dL Est GFR ( Amer) (> 60) Est GFR (Non-Af Amer) (> 60) BUN/Creatinine Ratio (6-26) Glucose (70-99) mg/dL Calculated Osmolality (280-300) Calcium (8.6-10.8) mg/dL Troponin I 0.03 (0-0.03) ng/mL B-Natriuretic Peptide 294 H (0-100) pg/mL - Radiology Data Radiology results reviewed: Yes I reviewed the patient's radiology results. - EKG Data EKG attestation: Yes I reviewed and interpreted this EKG. EKG results narrative: Ectopic atrial tachycardia, rate 1:15, NM interval 157, QRS 190, QTC 411 right axis deviation, right bundle branch block, similar morphology to previous
[2017-03-15 05:04] LABS: Basophils # 0.1 K/mcL (0.0-0.2); Basophils % 0.6 %; Eosinophils # 0.1 K/mcL (0.0-0.6); Eosinophils % 0.6 %; Hematocrit 31.7 % (37.5-50.1); Hemoglobin 9.3 g/dL (12.9-16.9); Immature Granulocytes % 0.6 % (0-4); Lymphocytes # 0.8 K/mcL (0.6-4.6); Lymphocytes % 6.4 %; Mean Corpuscular HGB Conc 29.3 g/dL (31.6-35.5); Mean Corpuscular Hemoglobin 24.7 pg (28.0-33.3); Mean Platelet Volume 8.7 fL (9.4-12.4); Monocytes # 1.3 K/mcL (0.0-1.3); Monocytes % 10.2 %; Neutrophils # 10.2 K/mcL (1.6-8.9); Platelet Count 434 K/mcL (140-400); Red Blood Count 3.77 M/mcL (4.19-5.50); Red Cell Distribution Width 25.1 % (11.5-14.5); Segmented Neutrophils % 81.6 %
[2017-03-15 05:07] LABS: Mean Corpuscular Volume 84.1 fL (83.0-100.0)
[2017-03-15 05:10] LABS: INR 1.4; Prothrombin Time 15.6 Seconds (9.4-12.1)
--- NOTE | 2017-03-15 05:12 | Emergency Department Note ---
START Narrative - START START: I examined this patient and my medical decision-making was reviewed with the MAJOR ASSEMBLY LINEMAN/PA/Advanced Practice Nurse/Resident Physician. I agree with the documented findings, disposition and treatment plan as described except to the extent set forth below. ED attending note: Patient seen with emergency medicine resident . Please see a copy of his note for details of the H&P, evaluation, management and disposition of this patient. We independently had [id number] contact with the patient Briefly: 71-year-old male by EMS for shortness of breath and hypoglycemia. Patient has history of GI bleed COPD diabetes was in the low 60s at home was feeling more weak. Takes insulin twice a day but has not been eating too much. Also was complaining of some dark stools. Abdomen surgically benign expiratory wheezing he is hypoxic. ED 6% on room air improved. Monitor oxygen. EKG shows sinus tachycardia dysrhythmia which is not new compared to prior EKG. He she will get a guaiac study for occult fecal blood chest x-ray breathing treatments abnormal oxygen screening labs troponin. Chest x-ray. Disposition pending but admission anticipated. He shows Accu-Chek in the ED was 92.
[2017-03-15 05:17] LABS: BUN/Creatinine Ratio 26 (6-26); Blood Urea Nitrogen 27 mg/dL (8-26); Calcium 8.4 mg/dL (8.6-10.8); Carbon Dioxide 26 mEq/L (19-29); Chloride 101 mEq/L (98-109); Glucose 79 mg/dL (70-99); Osmolality,Calculated 292 (280-300); Potassium 2.8 mEq/L (3.5-4.5); Sodium 139 mEq/L (136-145); eGFR For African Americans > 60 (> 60); eGFR For Non-African Americans > 60 (> 60)
[2017-03-15] MEDS ORDERED: Potassium Chloride 40 MEQ, Lidocaine 1% 2 ML in D5% in Water 500 ML IVPB ONE (05:23)
[2017-03-15 05:26] LABS: Anisocytosis 2+ (Not Present); Large Platelets Present (Not Present); Platelet Estimate Increased (Normal)
[2017-03-15] MEDS ORDERED: Naloxone 0.4 MG/ML INJ IVP PRN (07:09)
[2017-03-15] MEDS ORDERED: Acetaminophen 325 MG TABLET PO PRN (07:09)
[2017-03-15] MEDS ORDERED: Ondansetron 4 MG/2 ML VIAL IVP PRN (07:09)
[2017-03-15] MEDS ORDERED: Nitroglycerin 0.4 MG TAB.SUBL SL PRN (07:18)
[2017-03-15] MEDS ORDERED: *HR* Dextrose 50 % in Water (Syg) 50 ML SYRINGE IVP PRN (07:29)
[2017-03-15] MEDS ORDERED: D5% in Water 1,000 ML IVC PRN (07:29)
[2017-03-15] MEDS ORDERED: Dextrose Gel 15 GM PO PRN ×2 (07:29)
[2017-03-15] MEDS ORDERED: NON-FORMULARY MEDICATION 1 EACH EACH (Oxygen [Oxygen] 2 L) NS SCH (07:30)
[2017-03-15] MEDS: Budesonide/Formoterol 160/4.5 MDI IH SCH ×2 (07:46→21:10)
[2017-03-15] MEDS: Tiotropium 18 MCG inhalation IH SCH (07:46)
[2017-03-15] MEDS: Ipratropium/Albuterol Neb 3 ML IH SCH ×5 (07:46→23:53)
--- NOTE | 2017-03-15 07:49 | Internal Med History&Physical ---
Date of Encounter: 03/15/17 Time of Encounter: 07:20 Assessment and Plan (1) Acute exacerbation of CHF (congestive heart failure) Current visit: Yes Status: Acute Acute exacerbation of systolic CHF with LVEF of 45% Continue IV Lasix, metoprolol Strict I's and O's, fluid restriction, daily weight Ultrasound Doppler of both lower legs for severe edema, rule out DVT Qualifiers: Congestive heart failure type: systolic Qualified Code(s): I50.23 - Acute on chronic systolic (congestive) heart failure (2) Acute exacerbation of chronic obstructive airways disease Current visit: No Status: Acute Acute exacerbation Continue DuoNeb breathing treatment and BiPAP Continue Symbicort (3) Hypokalemia Current visit: No Status: Acute Potassium being replaced (4) Type 2 diabetes mellitus Current visit: Yes Status: Acute Type II, insulin-dependent, hypoglycemia Sliding scale insulin, Levemir, glucose checks Qualifiers: Diabetes mellitus complication status: with unspecified complications Diabetes mellitus long-term insulin use: with strategic planning specialist use Qualified Code(s) : E11.8 - Type 2 diabetes mellitus with unspecified complications; Z79.4 - snf (current) use of insulin (5) Anemia Current visit: No Status: Chronic Chronic anemia - secondary to iron deficiency H&H stable, monitor History of GI bleed - fecal Hemoccult pending Qualifiers: Anemia type: unspecified type Qualified Code(s): D64.9 - Anemia, unspecified (6) Sleep apnea with use of continuous positive airway pressure (CPAP) Current visit: No Status: Chronic Obstructive sleep apnea continue CPAP use Morbid obesity with obesity hypoventilation Continue BiPAP in hospital (7) Afib Current visit: No Status: Chronic Chronic A. fib, with tachycardia Unclear if patient is on anticoagulation Continue home medications including amiodarone and metoprolol Qualifiers: Atrial fibrillation type: chronic Qualified Code(s): I48.2 - Chronic atrial fibrillation (8) Essential hypertension Current visit: No Status: Chronic Controlled, monitor, continue home meds (9) GI bleed Current visit: Yes Status: Chronic Recent colonoscopy by - multiple nonbleeding polyps resected, advised repeat colonoscopy in 3-6 months Qualifiers: GI bleed type/associated pathology: unspecified gastrointestinal hemorrhage type Qualified Code(s): K92.2 - Gastrointestinal hemorrhage, unspecified (10) Physical deconditioning Current visit: No Status: Chronic Needs physical therapy eval (11) Morbid obesity with BMI of 40.0-44.9, adult Current visit: Yes Status: Chronic (12) DVT prophylaxis Current visit: No Status: Acute Continue heparin subcutaneous Internal Medicine - H&P: HPI Chief complaint: Shortness of breath Admitted From: Emergency Dept History of present illness: Mr. Diaz is a 71 year old male with past medical history of CHF, COPD, hypertension, atrial fibrillation, obstructive sleep apnea, diabetes, arthritis , morbid obesity and hyperlipidemia. He presents to the ED with complaints of shortness of breath that started about 24 hours ago. Shortness of breath is worse when lying flat and when he is not on CPAP. No alleviating factors. No other associated symptoms. On examination patient is awake and alert, and able to provide some history. He is not in any acute distress. No family members at bedside. Patient is oriented to place, time and person. Patient does fall asleep during conversation, but wakes up easily. Patient was brought to ED via EMS. Initially his O2 saturation was in the 80s. He was initially placed on increased oxygen from baseline. He was apparently initially confused and his blood sugar was low 60s. He was given glucagon and his blood sugar improved. Patient does have a history of atrial fibrillation but it is unclear whether he is on any anticoagulants. He is unable to provide this history. Patient does also have a history of GI bleeds and is possibly not on anticoagulation because of this. Patient denies chest pain today, denies palpitations denies headaches and denies lightheadedness. Patient denies cough. He states his shortness of breath is worse when he takes his CPAP off. EKG done initially shows atrial tachycardia with right axis deviation and right bundle branch block, which is similar to previous EKG. Patient will be admitted for CHF exacerbation. Initial chest x-ray shows edema. Patient will be on IV Lasix, strict I's and O' s and fluid restriction. Patient has been explained about his guarded condition and plan of care. He understood and agreed. No family members at the time of admission. Past Med Surg Social Fam HX - Past Medical History Medical history: arthritis, atrial fibrillation, CHF, COPD, diabetes, hyperlipidemia, hypertension Psychiatric history: no psych history - Past Surgical History Surgical History: orthopedic, other, pacemaker/AICD - Social History Smoking Status: Current every day smoker Smokeless Tobacco Status: No Alcohol use: none Drug use: marijuana - Family History Father Hx Family Cardiac Disorders: Yes Mother Family Member Ethnicity: Non- Living Status: Internal Medicine - H&P: Meds Amiodarone [Cordarone] 200 mg PO DAILY 04/28/15 [History] Aspirin 81 mg PO DAILY 04/28/15 [History] Atorvastatin [Lipitor] 40 mg PO HS 04/28/15 [History] Citalopram [CeleXA] 40 mg PO DAILY 04/28/15 [History] Docosahexanoic Acid/Epa [Fish Oil Concentrate Softgel] 1 each PO DAILY 04/28/15 [History] Ferrous Sulfate 325 mg PO BIDWM 04/28/15 [History] Garlic 1,000 mg PO DAILY 04/28/15 [History] GlipiZIDE XL (24 HR) [Glucotrol XL] 20 mg PO QAM 04/28/15 [History] Insulin DETEMIR [Levemir] 70 units SQ QAM AND QHS 04/28/15 [History] Meclizine [Antivert] 12.5 - 25 tab PO Q4HR PRN 04/28/15 [History] SitaGLIPtin [Januvia] 100 mg PO DAILY 04/28/15 [History] Albuterol Sulfate [Proair Hfa] 2 puff IH Q4H PRN 01/25/17 [History] Budesonide/Formoterol 160/4.5 [Symbicort 160/4.5] 2 puff IH BIDR 01/25/17 [ History] Metformin HCl [Glucophage] 1,000 mg PO BIDWM 01/25/17 [History] Metoprolol Succinate 200 mg PO DAILY 01/25/17 [History] Tiotropium [Spiriva] 18 mcg IH 0700 01/25/17 [History] Oxygen 2 l NS CONT 02/03/17 [History] Furosemide [Lasix] 60 mg PO BID #180 tab 02/08/17 [Rx] predniSONE [PredniSONE] See Taper PO TAPER #21 tablet 02/08/17 [Rx] Albuterol Sulfate [Albuterol Inhaler] 2 puff IH Q4H PRN #0 inhaler 02/23/17 [Rx] Dextrose Gel [Gluctose] 30 gm PO ONCE PRN #0 gel..gram. 02/23/17 [Rx] GlipiZIDE XL (24 HR) [Glucotrol XL] 20 mg PO QAM tab.er.24 02/23/17 [Rx] Glucagon, Human Recombinant [Glucagen] 1 mg IM ONCE PRN #0 vial 02/23/17 [Rx] Insulin DETEMIR [Levemir] 70 unit SQ 0900 [id number] 02/23/17 [Rx] Insulin LISPRO [HumaLOG] 0 units SQ TIDAC vial 02/23/17 [Rx] Meclizine [Antivert] 25 mg PO Q4HR PRN #0 tablet 02/23/17 [Rx] Nicotine Patch [Nicoderm] 21 mg TD DAILY #30 patch.td24 02/23/17 [Rx] Nitroglycerin 0.4 mg SL Q5MIN PRN #0 tab.subl 02/23/17 [Rx] Patient Taking Own Medication 0 each PO DAILY each 02/23/17 [Rx] Patient Taking Own Medication 0 each PO DAILY each 02/23/17 [Rx] Potassium Chloride 8 meq PO DAILY tablet.er 02/23/17 [Rx] Tiotropium [Spiriva] 18 mcg IH 0800 #30 inh 02/23/17 [Rx] metFORMIN [Glucophage] 1,000 mg PO BIDWM tablet 02/23/17 [Rx] Allergies bupropion [From Wellbutrin] Allergy (Verified 04/28/15 08:53) Difficulty Breathing codeine Allergy (Verified 04/28/15 08:53) Difficulty Breathing Opioids-Meperidine and Related [Opioids-Meperidine & Related] Allergy (Verified 04/28/15 08:53) Difficulty Breathing All Systems PM: A 10-system review of systems was performed and is negative for pertinent findings except as documented above in the HPI. Review of systems: Poor historian - Constitutional Constitutional: fatigue, weakness, no fever(s) - EENT Eyes: no blurry vision - Cardiovascular Cardiovascular ROS IM: dyspnea, dyspnea on exertion, orthopnea, no chest pain, no lightheadedness, no syncope - Respiratory Respiratory: cough, dyspnea, dyspnea on exertion, wheezing, chest congestion, no hemoptysis - Gastrointestinal Gastrointestinal: melena, no abdominal pain, no bloating, no cramping, no diarrhea, no hematochezia, no vomiting - Genitourinary Genitourinary ROS male: no dysuria - Musculoskeletal Musculoskeletal ROS IM: arthralgias - Neurological Neurological ROS: no abnormal gait, no confusion, no dizziness, no focal weakness, no numbness - Constitutional Vitals: Temp Pulse Resp BP Pulse Ox 97.7 F 107 16 120/71 94 03/15/17 07:19 03/15/17 07:19 03/15/17 07:19 03/15/17 07:19 03/15/17 07:19 General appearance: Present: mild distress, A&O X 3, morbidly obese, answers questions appropriately - Head Head exam: Present: atraumatic - Eye Eye exam: Present: EOMI - Neck Neck exam general surgery: Present: supple - Respiratory Respiratory exam: Present: rales (Mild bilateral). Absent: chest wall tenderness, wheezes, tachypnea - Cardiovascular Cardiovascular exam: Present: irregular rhythm, +S1, +S2, systolic murmur, tachycardia - GI/Abdominal GI/Abdominal exam: Present: distended (Obese), soft, no peritoneal signs. Absent: firm, guarding, tenderness - Extremities Exam Extremities exam: Present: pedal edema (Bilateral 4+ pitting), radial pulses palpable and symetrical. Absent: cyanotic, tenderness - Neurological Exam Neurological exam: Present: alert, oriented X3, no focal deficits Internal Med - H&P Results - Labs CBC & Chem 7: 03/15/17 04:55 03/15/17 04:55
[2017-03-15] MEDS ORDERED: INSULIN DETEMIR 70 UNIT SQ SCH (09:00)
[2017-03-15] MEDS ORDERED: *HR* Amiodarone 200 MG TABLET PO SCH (09:00)
[2017-03-15] MEDS: Aspirin 81 MG TAB.CHEW PO SCH (09:30)
[2017-03-15] MEDS: Metoprolol XL (24 HR) Succ 50 MG TAB.ER.24H PO SCH (09:30)
[2017-03-15] MEDS: Nicotine 21 MG PATCH.TD24 TD SCH (09:30)
[2017-03-15] MEDS: Famotidine 20 MG TABLET PO SCH ×2 (09:30→20:16)
[2017-03-15] MEDS: Furosemide 40 MG/4 ML VIAL IVP SCH ×2 (09:31→20:16)
[2017-03-15] MEDS: Insulin DETEMIR 100 UNIT/ML X5UNITS SQ SCH ×2 (09:31→22:58)
--- NOTE | 2017-03-15 09:46 | Cardiology Consult Note ---
Date of Encounter: 03/15/17 Time of Encounter: 09:41 Assessment and Plan (1) Acute exacerbation of CHF (congestive heart failure) Current Visit: Yes Status: Acute Acute on chronic systolic and diastolic CHF exacerbation. Echo 01/2017 EF mildly reduced 45%. (Previously 55-60% 04/2016). CXR edema vs. PNA. BNP only mildly elevated--294. Suspect respiratory component as well. Pt reports worsening dyspnea since yesterday and worsening lower extremity edema. Education discussed. Pt admits to "salting everything". Agree with IV Lasix 40mg BID. Troponin negative x 1. Recommend Strict I/Os, daily weights, Na and fluid restriction. Check limited echo to re-evaluate EF. Qualifiers: Congestive heart failure type: combined Qualified Code(s): I50.43 - Acute on chronic combined systolic (congestive) and diastolic (congestive) heart failure (2) Hypokalemia Current Visit: Yes Status: Acute K 2.8--replace. (3) Afib Current Visit: No Status: Chronic Known hx of A-Fib, on Amiodarone and previously on Xarelto--pt unsure if he has been taking. Current rhythm appears to be atrial tach--HR 110s. On Toprol XL 200mg daily, Amiodarone 200mg daily. H&H currently appear improved from his baseline. However, pt reports dark black stool this AM and he thinks he is bleeding. Hx of GI bleed with recent GI evaluation in January 2017. Hold Xarelto until GI bleed is ruled out. Will discuss with Dr. Rubi regarding any medication changes. Qualifiers: Atrial fibrillation type: unspecified Qualified Code(s): I48.91 - Unspecified atrial fibrillation (4) Cardiomyopathy Current Visit: Yes Status: Acute EF previously 55-60% 04/2016, found to be 45%, mild global hypokinesis 01/2017. NICMP vs. ICMP. Could be tachycardia induced? Although pt does have multiple risk factors for CAD: Morbid obesity, HTN, HLD, DM, tobacco abuse. No known hx of CAD or LHC. Recheck limited echo to re-evaluate EF. Will likely warrant ischemic evaluation at some point once current clinical status improves/possible GI bleeding is addressed. Ischemic evaluation can also be done as outpt. Pt denies any chest pain. Continue BB. Recommend adding JOSE-I after IV diuresis if BP and renal function tolerate. Qualifiers: Cardiomyopathy type: unspecified Qualified Code(s): I42.9 - Cardiomyopathy , unspecified (5) Aortic stenosis Current Visit: Yes Status: Acute Mild-moderate on echo 01/2017. Qualifiers: Cardiac valve disease etiology: nonrheumatic Qualified Code(s): I35.0 - Nonrheumatic aortic (valve) stenosis Discussion w patient/family: The assessment and plan as outlined above was discussed with the patient and/or family members who expressed understanding and agreement. All questions were answered. Thank you for involving us in the care of your patient. Please call with any questions. History of Present Illness Consult date: 03/15/17 Consult reason: CHF Chief complaint: dyspnea History of present illness: Mr. Diaz is a 71 year old male with PMH of CHF, COPD, hypertension, atrial fibrillation, obstructive sleep apnea, diabetes, arthritis, PPM, morbid obesity diastolic CHF, mild CMP, and hyperlipidemia. He presents to the ED with complaints of shortness of breath that started about 24 hours ago. He reports worsened lower extremity edema as well. Shortness of breath is worse when lying flat and when he is not on CPAP. Initially his O2 saturation was in the 80s on arrival. He reports episode of black diarrhea this AM and feels like he may be "bleeding inside". Patient denies chest pain today, denies palpitations. EKG done initially appears to be atrial tachycardia with right axis deviation and right bundle branch block, which is similar to previous EKG. Patient was admitted for CHF exacerbation. Initial chest x-ray shows pna vs edema. Pt reports that he salts "everything". BNP 294, K 2.8. Echo 01/2017 EF 45%, mild LV global systolic dysfunction, mild concentric LVH, mild RV hypokinesis, mild-moderate . Past Med Surg Social Fam HX - Past Medical History Medical history: arthritis, atrial fibrillation, CHF, COPD, diabetes, hyperlipidemia, hypertension Psychiatric history: no psych history - Past Surgical History Surgical History: orthopedic, other, pacemaker/AICD - Social History Smoking Status: Current every day smoker Smokeless Tobacco Status: No Alcohol use: none Drug use: marijuana - Family History Father Hx Family Cardiac Disorders: Yes Mother Family Member Ethnicity: Non- Living Status: Medications and Allergies Amiodarone [Cordarone] 200 mg PO DAILY 04/28/15 [History] Aspirin 81 mg PO DAILY 04/28/15 [History] Atorvastatin [Lipitor] 40 mg PO HS 04/28/15 [History] Citalopram [CeleXA] 40 mg PO DAILY 04/28/15 [History] Docosahexanoic Acid/Epa [Fish Oil Concentrate Softgel] 1 each PO DAILY 04/28/15 [History] Ferrous Sulfate 325 mg PO BIDWM 04/28/15 [History] Garlic 1,000 mg PO DAILY 04/28/15 [History] GlipiZIDE XL (24 HR) [Glucotrol XL] 20 mg PO QAM 04/28/15 [History] Insulin DETEMIR [Levemir] 70 units SQ QAM AND QHS 04/28/15 [History] Meclizine [Antivert] 12.5 - 25 tab PO Q4HR PRN 04/28/15 [History] SitaGLIPtin [Januvia] 100 mg PO DAILY 04/28/15 [History] Albuterol Sulfate [Proair Hfa] 2 puff IH Q4H PRN 01/25/17 [History] Budesonide/Formoterol 160/4.5 [Symbicort 160/4.5] 2 puff IH BIDR 01/25/17 [ History] Metformin HCl [Glucophage] 1,000 mg PO BIDWM 01/25/17 [History] Metoprolol Succinate 200 mg PO DAILY 01/25/17 [History] Tiotropium [Spiriva] 18 mcg IH 0700 01/25/17 [History] Oxygen 2 l NS CONT 02/03/17 [History] Furosemide [Lasix] 60 mg PO BID #180 tab 02/08/17 [Rx] predniSONE [PredniSONE] See Taper PO TAPER #21 tablet 02/08/17 [Rx] Albuterol Sulfate [Albuterol Inhaler] 2 puff IH Q4H PRN #0 inhaler 02/23/17 [Rx] Dextrose Gel [Gluctose] 30 gm PO ONCE PRN #0 gel..gram. 02/23/17 [Rx] GlipiZIDE XL (24 HR) [Glucotrol XL] 20 mg PO QAM tab.er.24 02/23/17 [Rx] Glucagon, Human Recombinant [Glucagen] 1 mg IM ONCE PRN #0 vial 02/23/17 [Rx] Insulin DETEMIR [Levemir] 70 unit SQ 0900 [id number] 02/23/17 [Rx] Insulin LISPRO [HumaLOG] 0 units SQ TIDAC vial 02/23/17 [Rx] Meclizine [Antivert] 25 mg PO Q4HR PRN #0 tablet 02/23/17 [Rx] Nicotine Patch [Nicoderm] 21 mg TD DAILY #30 patch.td24 02/23/17 [Rx] Nitroglycerin 0.4 mg SL Q5MIN PRN #0 tab.subl 02/23/17 [Rx] Patient Taking Own Medication 0 each PO DAILY each 02/23/17 [Rx] Patient Taking Own Medication 0 each PO DAILY each 02/23/17 [Rx] Potassium Chloride 8 meq PO DAILY tablet.er 02/23/17 [Rx] Tiotropium [Spiriva] 18 mcg IH 0800 #30 inh 02/23/17 [Rx] metFORMIN [Glucophage] 1,000 mg PO BIDWM tablet 02/23/17 [Rx] Allergies bupropion [From Wellbutrin] Allergy (Verified 04/28/15 08:53) Difficulty Breathing codeine Allergy (Verified 04/28/15 08:53) Difficulty Breathing Opioids-Meperidine and Related [Opioids-Meperidine & Related] Allergy (Verified 04/28/15 08:53) Difficulty Breathing All Systems Review: A 10-system review of systems was performed and is negative for pertinent findings except as documented above in the HPI. - Cardiovascular Cardiovascular: as per HPI, dyspnea at rest, dyspnea on exertion, leg edema, lightheadedness - Respiratory Respiratory: dyspnea Physical Examination Vital Signs, Last 4 Hours Temp Pulse Resp BP Pulse Ox 03/15/17 07:19 97.7 F 107 16 120/71 94 Vital Signs Temp Pulse Resp BP Pulse Ox 03/15/17 07:42 94 03/15/17 07:19 97.7 F 107 16 120/71 94 03/15/17 06:19 22 122/74 03/15/17 05:11 95 03/15/17 04:54 115 22 122/74 95 03/15/17 04:46 97.8 F 116 22 122/74 95 Intake and Output 03/14/17 03/15/17 03/15/17 23:59 07:59 15:59 Other: Weight 145.15 kg Blood Glucose* 61 Patient Weight 03/15/17 23:59 Weight 145.15 kg General: Conversant HEENT: Atraumatic, Normocephaly, Mucus Membranes Moist Neck: Normal carotid pulses Cardiac: Reg Rate and Rhythm, Other (2/6 JIN) Lungs: Other (mild bibasilar rales) Neuro: Alert and responsive, No focal deficits noted Abdomen: Soft, Non-Tender Skin: No rashes noted on visualized skin Musculoskeletal: No Chest Wall Tenderness Extremities: Other (3+ BLE edema) Results 03/15/17 04:55 03/15/17 04:55 Short CBC 03/15/17 Range/Units 04:55 WBC 12.5 H (4.3-11.1) K/mcL Hgb 9.3 L (12.9-16.9) g/dL Hct 31.7 L (37.5-50.1) % Plt Count 434 H (140-400) K/mcL Neutrophils # 10.2 H (1.6-8.9) K/mcL BMP 03/15/17 Range/Units 04:55 Sodium 139 (136-145) mEq/L Potassium 2.8 L (3.5-4.5) mEq/L Chloride 101 (98-109) mEq/L Carbon Dioxide 26 (19-29) mEq/L BUN 27 H (8-26) mg/dL Creatinine 1.04 (0.72-1.25) mg/dL Glucose 79 (70-99) mg/dL Calcium 8.4 L (8.6-10.8) mg/dL Cardiac Enzymes 03/15/17 Range/Units 04:55 Troponin I 0.03 (0-0.03) ng/mL Impressions Chest X-Ray 03/15/17 04:49 IMPRESSION: Cardiomegaly and interstitial prominence compatible with edema. Patchy right mid lung zone pneumonia versus confluent edema. Small right pleural effusion. Recommend follow-up chest radiograph after treatment to verify improvement. D/ / Marin Scott MD / Marin Scott MD Interpreting Provider: Marin Scott MD Active Medications Acetaminophen (Tylenol) 650 mg PO Q6HR PRN PRN Reason: Mild Pain (1-3) Stop: 09/14/17 07:10 Albuterol/Ipratropium (Duoneb) 3 ml IH [id number] VERONIQUE PRN Reason: Protocol Stop: 09/14/17 08:01 Last Admin: 03/15/17 07:46 Dose: 3 ml Amiodarone HCl (Cordarone) 200 mg PO DAILY [facility] Stop: 09/14/17 09:01 Last Admin: 03/15/17 09:30 Dose: 200 mg Aspirin (Aspirin) 81 mg PO DAILY [facility] Stop: 09/14/17 09:01 Last Admin: 03/15/17 09:30 Dose: 81 mg Atorvastatin Calcium (Lipitor) 40 mg PO HS [facility] Stop: 09/14/17 21:01 Budesonide/Formoterol Fumarate (Symbicort) 2 puff IH BIDR [facility] PRN Reason: Protocol Stop: 09/14/17 10:01 Last Admin: 03/15/17 07:46 Dose: 2 puff Citalopram Hydrobromide (Celexa) 40 mg PO DAILY [facility] Stop: 09/14/17 09:01 Last Admin: 03/15/17 09:30 Dose: 40 mg Dextrose/Water (Dextrose 50% (Syg)) 25 ml IVP AD PRN PRN Reason: Hypoglycemia Stop: 09/14/17 07:30 Famotidine (Pepcid) 20 mg PO BID [facility] Stop: 09/14/17 09:01 Last Admin: 03/15/17 09:30 Dose: 20 mg Ferrous Sulfate (Ferrous Sulfate) 325 mg PO BIDWM [facility] Stop: 09/14/17 08:01 Last Admin: 03/15/17 09:30 Dose: 325 mg Furosemide (Lasix) 40 mg IVP BID [facility] Stop: 09/14/17 09:01 Last Admin: 03/15/17 09:31 Dose: 40 mg Glucagon (Glucagen) 1 mg IM ONCE PRN PRN Reason: Hypoglycemia Stop: 09/14/17 07:30 Glucose (Gluctose) 15 gm PO ONCE PRN PRN Reason: Hypoglycemia Stop: 09/14/17 07:30 Glucose (Gluctose) 30 gm PO ONCE PRN PRN Reason: Hypoglycemia Stop: 09/14/17 07:30 Heparin Sodium (Porcine) (Heparin) 5,000 unit SQ Q12HR [facility] Stop: 09/14/17 18:01 Ceftriaxone Sodium 1,000 mg/ (Dextrose) 100 mls @ 200 mls/hr IVPB DAILY [facility] Stop: 09/14/17 09:01 Last Admin: 03/15/17 09:31 Dose: 200 mls/hr Dextrose (Dextrose 5%) 1,000 mls @ 100 mls/hr IVC .Q10H PRN PRN Reason: HYPOGLYCEMIA Stop: 09/14/17 07:30 Insulin Detemir (Levemir) 70 unit SQ BID [facility] Stop: 09/14/17 09:01 Last Admin: 03/15/17 09:31 Dose: 70 unit Insulin Human Lispro (Humalog) 0 units SQ Q6HR [facility] PRN Reason: Protocol Stop: 09/14/17 12:01 Meclizine HCl (Antivert) 25 mg PO Q4HR PRN PRN Reason: Vertigo Stop: 09/14/17 07:19 Metoprolol Succinate (Toprol Xl) 200 mg PO DAILY [facility] Stop: 09/14/17 09:01 Last Admin: 03/15/17 09:30 Dose: 200 mg Naloxone HCl (Narcan) 0.4 mg IVP Q2MIN PRN PRN Reason: Opioid Reversal Stop: 09/14/17 07:10 Nicotine (Nicoderm) 21 mg TD DAILY [facility] PRN Reason: Protocol Stop: 09/14/17 09:01 Last Admin: 03/15/17 09:30 Dose: 21 mg Nitroglycerin (Nitroglycerin) 0.4 mg SL Q5MIN PRN PRN Reason: Chest Pain Stop: 09/14/17 07:19 Ondansetron HCl (Zofran) 4 mg IVP Q8HR PRN PRN Reason: Nausea And Vomiting Stop: 09/14/17 07:10 Potassium Chloride (Potassium Chloride) 8 meq PO DAILY [facility] PRN Reason: Protocol Stop: 09/14/17 09:01 Tiotropium Green (Spiriva) 18 mcg IH 0800 [facility] PRN Reason: Protocol Stop: 09/14/17 08:01 Last Admin: 03/15/17 07:46 Dose: Not Given - Imaging and Cardiology Echo: report reviewed - EKG Interpretation EKG results cardiology: personally reviewed (Atrial tach) Consult Discharge Plan - Plan Referrals: Damian Seymour MD [Primary Care Provider] -
[2017-03-15] MEDS ORDERED: Insulin LISPRO 300 UNITS/3 ML VIAL SQ SCH (12:00)
[2017-03-15] MEDS: Diltiazem CD (24hr) 120 MG CAPSULE PO SCH (12:48)
[2017-03-15] MEDS ORDERED: Perflutren Lipid Microsphere 1.3 ML in 0.9 % Sodium Chloride 8.7 ML IVP ONE (13:32)
[2017-03-15] MEDS: *HR* Heparin 5,000 UNIT/ML VIAL SQ SCH (17:16)
[2017-03-15] MEDS: Insulin LISPRO 300 UNITS/3 ML VIAL SQ SCH ×2 (17:17→23:00)
[2017-03-16] MEDS: Ipratropium/Albuterol Neb 3 ML IH SCH ×5 (04:56→20:01)
[2017-03-16] MEDS: *HR* Heparin 5,000 UNIT/ML VIAL SQ SCH ×2 (05:30→17:47)
[2017-03-16 06:12] LABS: Basophils # 0.1 K/mcL (0.0-0.2); Basophils % 0.7 %; Eosinophils # 0.1 K/mcL (0.0-0.6); Eosinophils % 1.1 %; Hematocrit 29.5 % (37.5-50.1); Hemoglobin 8.7 g/dL (12.9-16.9); Immature Granulocytes % 0.4 % (0-4); Lymphocytes # 0.9 K/mcL (0.6-4.6); Lymphocytes % 8.7 %; Mean Corpuscular HGB Conc 29.5 g/dL (31.6-35.5); Mean Corpuscular Hemoglobin 25.4 pg (28.0-33.3); Mean Corpuscular Volume 86.3 fL (83.0-100.0); Mean Platelet Volume 9.1 fL (9.4-12.4); Monocytes # 1.3 K/mcL (0.0-1.3); Monocytes % 12.2 %; Neutrophils # 8.2 K/mcL (1.6-8.9); Nucleated Red Blood Cells 0.2 /100 WBC (0); Platelet Count 418 K/mcL (140-400); Red Blood Count 3.42 M/mcL (4.19-5.50); Red Cell Distribution Width 24.9 % (11.5-14.5); Segmented Neutrophils % 76.9 %
[2017-03-16 06:15] LABS: BUN/Creatinine Ratio 25 (6-26); Blood Urea Nitrogen 22 mg/dL (8-26); Calcium 8.2 mg/dL (8.6-10.8); Carbon Dioxide 29 mEq/L (19-29); Chloride 105 mEq/L (98-109); Glucose 49 mg/dL (70-99); Osmolality,Calculated 293 (280-300); Potassium 2.9 mEq/L (3.5-4.5); Sodium 141 mEq/L (136-145); eGFR For African Americans > 60 (> 60); eGFR For Non-African Americans > 60 (> 60)
[2017-03-16 06:46] LABS: Anisocytosis 2+ (Not Present); Platelet Clumps Few (Not Present); Platelet Estimate Normal (Normal)
[2017-03-16] MEDS: Insulin LISPRO 300 UNITS/3 ML VIAL SQ SCH ×4 (07:29→22:12)
[2017-03-16] MEDS: Budesonide/Formoterol 160/4.5 MDI IH SCH ×2 (07:39→20:01)
--- NOTE | 2017-03-16 07:45 | Venous Imaging Report ---
LE Venous Duplex Patient Name:Jaime Diaz Order Number:[id number] Procedure Date:03/15/2017 Date:4Age:71 yrs Gender:Male Location:[facility] Room #: 2NE31 Laborer [place]:Anabel Wan RVT Referring MD:Rajendra Rojo MD food and beverage order clerk:Damian Seymour MD Reading MD:Prosper Zavala MD Secondary Indications: Risk Factors Yes/No Anticoagulants Yes Impressions: Normal bilateral lower extremity deep and superficial venous exam. Recommendations: After imaging the patient returned to their room. Test completed on 03/15/2017 at 10:16:01 am. Critical findings reported to Melissa DANIEL in person at 10:16:06 am on 03/15/2017 by Anabel Wan RVT. Findings Venous Duplex Results: Right: Venous imaging of the lower extremity reveals full patency and normal vessel compressibility of the right distal iliac, right common femoral, right superficial femoral, right popliteal, right posterior tibial, right peroneal, right great saphenous and right lesser saphenous. Doppler signals in the evaluated veins were normal. Left: Venous imaging of the lower extremity reveals full patency and normal vessel compressibility of the left distal iliac, left common femoral, left superficial femoral, left popliteal, left posterior tibial, left peroneal, left great saphenous and left lesser saphenous. Doppler signals in the evaluated veins were normal. Updated by Prosper Zavala MD on 03/16/2017 7:39:22 AM electronically signed on 03/16/2017 7:39:36 AM with status of Final
[2017-03-16] MEDS: Tiotropium 18 MCG inhalation IH SCH (07:49)
[2017-03-16] MEDS ORDERED: Potassium Chloride 40 MEQ, Lidocaine 1% 2 ML in D5% in Water 500 ML IVPB ONE (08:33)
[2017-03-16] MEDS: Furosemide 40 MG/4 ML VIAL IVP SCH ×2 (09:22→17:42)
[2017-03-16] MEDS: Aspirin 81 MG TAB.CHEW PO SCH (09:22)
[2017-03-16] MEDS: Diltiazem CD (24hr) 120 MG CAPSULE PO SCH (09:22)
[2017-03-16] MEDS: Insulin DETEMIR 100 UNIT/ML X5UNITS SQ SCH ×2 (09:26→22:11)
[2017-03-16] MEDS: Nicotine 21 MG PATCH.TD24 TD SCH (09:26)
[2017-03-16] MEDS: Famotidine 20 MG TABLET PO SCH ×2 (09:28→22:11)
[2017-03-16] MEDS: Metoprolol XL (24 HR) Succ 50 MG TAB.ER.24H PO SCH (09:31)
--- NOTE | 2017-03-16 10:02 | Internal Med Progress Note ---
Date of Encounter: 03/16/17 Time of Encounter: 08:35 - Assessment and plan (1) Acute exacerbation of CHF (congestive heart failure) Current Visit: Yes Status: Acute Assessment and plan: Good response to IV Lasix with -1.2 L fluid balance. Continue Lasix. Monitor blood pressure closely. Cardiology consulted and we will follow recommendations. Moderate risk for complications. Qualifiers: Congestive heart failure type: combined Qualified Code(s): I50.43 - Acute on chronic combined systolic (congestive) and diastolic (congestive) heart failure (2) Acute exacerbation of chronic obstructive airways disease Current Visit: Yes Status: Acute Assessment and plan: Continue bronchodilators. Clinically getting better. (3) Afib Current Visit: Yes Status: Chronic Assessment and plan: Rate controlled. Not on anticoagulation due to anemia. On metoprolol and Cardizem. Qualifiers: Atrial fibrillation type: unspecified Qualified Code(s): I48.91 - Unspecified atrial fibrillation (4) Anemia Current Visit: Yes Status: Chronic Assessment and plan: Hemoglobin 8.7 today. Around baseline. Already evaluated with recent colonoscopy. We will monitor blood counts.continue iron supplements. Qualifiers: Anemia type: unspecified type Qualified Code(s): D64.9 - Anemia, unspecified (5) Essential hypertension Current Visit: Yes Status: Chronic Assessment and plan: Blood pressure is currently on the lower side. Will hold antihypertensives for now. Monitor blood pressure closely. (6) GI bleed Current Visit: Yes Status: Suspected Assessment and plan: Possible GI bleed but patient underwent colonoscopy recently without any acute bleeding identified. He did have multiple nonbleeding polyps. Place on PPI. Has been recommended capsule endoscopy as outpatient. Monitor blood counts. Qualifiers: GI bleed type/associated pathology: unspecified gastrointestinal hemorrhage type Qualified Code(s): K92.2 - Gastrointestinal hemorrhage, unspecified (7) Hypokalemia Current Visit: No Status: Acute Assessment and plan: Potassium levels remained low. Will replete orally and intravenously. (8) Morbid obesity with BMI of 40.0-44.9, adult Current Visit: Yes Status: Chronic (9) Physical deconditioning Current Visit: Yes Status: Chronic Assessment and plan: Await evaluation by physical therapy (10) Sleep apnea with use of continuous positive airway pressure (CPAP) Current Visit: Yes Status: Chronic Assessment and plan: Use CPAP at bedtime (11) Type 2 diabetes mellitus Current Visit: Yes Status: Chronic Assessment and plan: Blood sugars are well controlled. We will continue to monitor. Continue current sliding scale insulin Qualifiers: Diabetes mellitus complication status: with unspecified complications Diabetes mellitus fci insulin use: with fci use Qualified Code(s) : E11.8 - Type 2 diabetes mellitus with unspecified complications; Z79.4 - MCFP (current) use of insulin (12) DVT prophylaxis Current Visit: No Status: Acute Assessment and plan: On subcutaneous heparin for prophylaxis - Subjective Interval history: Patient is feeling somewhat better today. Sitting up in chair. Denies any chest pain. Shortness of breath is improving. No dizziness or lightheadedness. No other acute issues overnight. - Constitutional Vitals: Temp Pulse Resp BP Pulse Ox 97.7 F 61 16 91/52 98 03/16/17 07:23 03/16/17 07:23 03/16/17 07:23 03/16/17 07:23 03/16/17 07:23 General appearance: Present: mild distress, A&O X 3, morbidly obese, answers questions appropriately - Neck Neck exam general surgery: Present: supple, trachea midline. Absent: lymphadenopathy - Respiratory Respiratory exam: Present: CTAB, rales. Absent: accessory muscle use, rhonchi, wheezes - Cardiovascular Cardiovascular exam: Present: irregular rhythm, +S1, +S2. Absent: diastolic murmur, gallop, rubs, systolic murmur - GI/Abdominal GI/Abdominal exam: Present: normal bowel sounds, soft, no peritoneal signs. Absent: distended, tenderness - Extremities Exam Extremities exam: Present: pedal edema, warm, radial pulses palpable and symetrical. Absent: calf tenderness, cyanotic - Neurological Exam Neurological exam: Present: alert, CN II-XII intact, oriented X3, no focal deficits, strengths equal and symetr throughout. Absent: facial droop, speech deficit - Skin Skin exam: Present: dry, intact Internal Medicine: Result - Labs CBC & Chem 7: 03/16/17 05:40 03/16/17 05:40 Labs: Short CBC 03/16/17 Range/Units 05:40 WBC 10.7 (4.3-11.1) K/mcL Hgb 8.7 L (12.9-16.9) g/dL Hct 29.5 L (37.5-50.1) % Plt Count 418 H (140-400) K/mcL Neutrophils # 8.2 (1.6-8.9) K/mcL BMP 03/16/17 05:40 Sodium 141 Potassium 2.9 L Chloride 105 Carbon Dioxide 29 BUN 22 Creatinine 0.89 Glucose 49 L Calcium 8.2 L - ABG Interpretation ABG results: PT/INR, D-dimer PT 15.6 Seconds (9.4-12.1) H 03/15/17 04:55 Consult Discharge Plan - Plan Referrals: Damian Seymour MD [Primary Care Provider] -
[2017-03-16] MEDS ORDERED: Perflutren Lipid Microsphere 1.3 ML in 0.9 % Sodium Chloride 8.7 ML IVP ONE (10:42)
--- NOTE | 2017-03-16 12:17 | Cardiology Progress Note ---
Date of Encounter: 03/16/17 Time of Encounter: 12:11 Assessment and Plan (1) Acute exacerbation of CHF (congestive heart failure) Current Visit: Yes Status: Acute Acute on chronic systolic and diastolic CHF exacerbation. Echo 01/2017 EF mildly reduced 45%. (Previously 55-60% 04/2016). Echo yesterday shows EF 45-50%. CXR edema vs. PNA. BNP only mildly elevated--294. Suspect respiratory component as well. Cumulative I/O net negative 1200mL. Pt reports symptoms are improving. Education discussed. Pt admits to "salting everything". Agree with IV Lasix 40mg BID. Troponin negative x 1. Recommend Strict I/Os, daily weights, Na and fluid restriction. \\ Qualifiers: Congestive heart failure type: combined Qualified Code(s): I50.43 - Acute on chronic combined systolic (congestive) and diastolic (congestive) heart failure (2) Hypokalemia Current Visit: Yes Status: Acute K 2.9--replace. (3) Afib Current Visit: Yes Status: Chronic Known hx of A-Fib, on Amiodarone on admission and previously on Xarelto--pt unsure if he has been taking. Current rhythm appears to be atrial tach vs. atypical A-Flutter--HR 110s. On Toprol XL 200mg daily. Yesterday, added Cardizem 120mg daily and stopped Amiodarone. No recent drug monitoring and holding anticoagulation, so rate control strategy recommended. Increase Cardizem. H&H currently near his baseline. However, pt reports dark black stool yesterday AM and he thinks he is bleeding. Hx of GI bleed with recent GI evaluation in January 2017. Outpt capsule endoscopy was recommended. Recommend holding anticoagulation until follows-up/okay with GI. Recommend resuming Xarelto when able. Consult EP as well for his tachycardia and further recommendations. Interrogate PPM. Qualifiers: Atrial fibrillation type: unspecified Qualified Code(s): I48.91 - Unspecified atrial fibrillation (4) Cardiomyopathy Current Visit: Yes Status: Acute EF previously 55-60% 04/2016, found to be 45%, mild global hypokinesis 01/2017. Current limited echo 45-50%, only mildly reduced. NICMP vs. ICMP. Could be tachycardia induced? Although pt does have multiple risk factors for CAD: Morbid obesity, HTN, HLD, DM, tobacco abuse. No known hx of CAD or LHC. Pt denies chest pain. Recommend stress test as outpt after evaluated further by GI. Continue BB. Recommend adding JOSE-I after IV diuresis if BP and renal function tolerate. Qualifiers: Cardiomyopathy type: unspecified Qualified Code(s): I42.9 - Cardiomyopathy , unspecified (5) Aortic stenosis Current Visit: Yes Status: Acute Mild-moderate on echo 01/2017. Qualifiers: Cardiac valve disease etiology: nonrheumatic Qualified Code(s): I35.0 - Nonrheumatic aortic (valve) stenosis (6) Atrial tachycardia Current Visit: Yes Status: Acute Rhythm appears to be atrial tach vs atypical atrial flutter, HR 110s at bedside , 12 hr tele AVG HR 97. Rate control strategy. Attempt to increase Cardizem to 240mg. Continue Toprol XL 200mg daily. Single chamber PPM in place. Has not been interrogated since implant in 2014. Will interrogate. Consult EP for further recommendations. Appreciate their recommendations. (7) Pacemaker Current Visit: Yes Status: Acute Single chamber PPM inserted in 2014. No interrogation since that time. Will interrogate. Discussion w patient/family: The assessment and plan as outlined above was discussed with the patient and/or family members who expressed understanding and agreement. All questions were answered. Thank you for involving us in the care of your patient. Please call with any questions. I will discuss all the above with Dr. Sinclair and make changes as necessary. Subjective Principal diagnosis: CHF Interval history: Limited echo resulted EF 45-50%. Pt denies chest pain. 12 hr tele AVG HR 97, appears to be atrial tach vs atypical atrial flutter. Objective Vital Signs, Last 4 Hours Temp Pulse Resp BP Pulse Ox 03/16/17 12:06 98.2 F 106 16 118/87 99 Vital Signs Temp Pulse Resp BP Pulse Ox 03/16/17 12:06 98.2 F 106 16 118/87 99 03/16/17 07:23 97.7 F 61 16 91/52 98 03/16/17 04:56 22 93 03/16/17 04:00 97.7 F 89 19 113/75 95 03/16/17 00:00 97.9 F 108 18 119/86 92 03/15/17 23:53 19 98 03/15/17 21:11 20 97 03/15/17 18:33 97.8 F 110 18 118/75 97 03/15/17 15:46 98.1 F 109 17 113/72 99 03/15/17 15:35 18 98 Intake and Output 03/15/17 03/16/17 03/16/17 23:59 07:59 15:59 Intake Total 50 / 50 130 / 130 240 / 240 Output Total 150 / 150 1350 / 1350 150 / 150 Balance -100 / -100 -1220 / -1220 90 / 90 Intake: IV Fluids 100 / 100 Rocephin 1,000 MG In 100 / 100 Dextrose 5% (Minibag+) 100 ML 100 ML @ 200 mls/ hr IVPB DAILY [facility] Rx#: [id number] Oral 50 / 50 30 / 30 240 / 240 Output: Urine 150 / 150 Catheter 150 / 150 1350 / 1350 Other: Meal Dinner Breakfast Percent of Meal Consumed 100% 100% Weight 148 kg Blood Glucose* 221 137 164 Patient Weight 03/16/17 23:59 Weight 148 kg General: Conversant, No Apparent Distress HEENT: Atraumatic, Normocephaly, Mucus Membranes Moist Neck: Normal carotid pulses Cardiac: Reg Rate and Rhythm, Normal S1 and S2 Lungs: Normal Breath Sounds, No Wheeze, Rales, Rhonchi Neuro: Alert and responsive, No focal deficits noted Abdomen: Soft, Non-Tender Skin: No rashes noted on visualized skin Musculoskeletal: No Chest Wall Tenderness Extremities: Other (+2 BLE edema) Results 03/16/17 05:40 03/16/17 05:40 Lab Results 03/16/17 03/16/17 05:40 05:40 WBC 10.7 Hgb 8.7 L Hct 29.5 L Plt Count 418 H Sodium 141 Potassium 2.9 L Chloride 105 Carbon Dioxide 29 BUN 22 Creatinine 0.89 Glucose 49 L Calcium 8.2 L - Imaging and Cardiology Echo: report reviewed - EKG Interpretation EKG results cardiology: other (12 hr tele AVG HR 97, atrial tach vs. atypical atrial flutter) Consult Discharge Plan - Plan Referrals: Damian Seymour MD [Primary Care Provider] -
[2017-03-16] MEDS ORDERED: Diltiazem CD (24hr) 120 MG CAPSULE PO ONE (12:54)
[2017-03-16] MEDS ORDERED: Azithromycin 500 MG in D5% in Water 250 ML IVPB SCH (13:00)
--- NOTE | 2017-03-16 13:28 | Electrocardiograph Report ---
[address] [address] Test Date: 2017-03-15 Pat Name: Jaime Diaz Department: 105 Room: [facility] Gender: M Bottle Tester: SHELLI : 1945 Requested By: Keegan Long Order Number: [id number] Reading MD: Michele Santana MD Measurements Intervals [place] Rate: 115 P: 144 ND: 157 QRS: 116 QRSD: 190 T: -68 QT: 343 QTc: 411 Interpretive Statements PROBABLY ATRIAL TACHYCARDIA VERSUS ATYPICAL ATRIAL FLUTTER MARKED RIGHT AXIS DEVIATION IVCD Electronically Signed On 03-16-2017 13:26:36 EDT by Michele Santana MD
--- NOTE | 2017-03-16 15:41 | Cardiology Consult Note ---
Date of Encounter: 03/16/17 Time of Encounter: 15:39 Assessment and Plan (1) Atrial tachycardia Current Visit: Yes Status: Acute Per electrophysiology: EKg reviewed with Dr. Damian Calderon. Atrial tachycardia, HR 115. HR currently 110 bpm. PPM interrogation showed single lead PPM. Implated 02/2015. Last device check was 11/2015. He is 35% paced. HR 110-120 30% of the time. TTE- EF 45-50%%. Mild LVH. Limited study. Echo 01/2017 EF 45%, mild LV global systolic dysfunction, mild concentric LVH, mild RV hypokinesis, mild-moderate . Agree with rate control strategy. Cardizem increased today to 240 mg daily. Increase as tolerated. Continue toprol XL 200 mg daily. H/o afib on xarelto. Restart Xarelto once okay from GI standpoint. Also noted to have blood in urine. May be secondary to navarrete trauma. Hgb currently stable. (2) Afib Current Visit: Yes Status: Chronic EKG shows atrial tachycardia. H/o afib. Started on Amiodarone in 2014 (monitored by [facility]). Amio discontinued during this stay. Continue cardizem and toprol XL. CHADS VASc=5 for CHF, HTN, age 1, DM. Recommend restarting xarelto for CVA prevention once cleared by GI from a bleeding standpoint. Qualifiers: Atrial fibrillation type: paroxysmal Qualified Code(s): I48.0 - Paroxysmal atrial fibrillation (3) Pacemaker Current Visit: Yes Status: Acute Single chamber PPM inserted in 2014. PPM check shows normal functioning device. 35% pacing. Device check report from 2015 states PPM placed for atrial arrhythmia. Discussion w patient/family: The assessment and plan as outlined above was discussed with the patient and/or family members who expressed understanding and agreement. All questions were answered. Thank you for involving us in the care of your patient. Please call with any questions. History of Present Illness Consult date: 03/16/17 Requesting physician: Ludy Sinclair Consult reason: EP consult for atrial tachycardia Chief complaint: SOB, BLE edema, orthopnea History of present illness: Mr. Diaz is a 71 year old male with a history of CHF , atrial fibrillation on xarelto, COPD, hypertension, obstructive sleep apnea, diabetes, arthritis, PPM, morbid obesity, and hyperlipidemia who presented with SOB, orthopnea, and BLE edema for 2 days. He was admitted and is currently being treated for CHF. Electrophysiology consulted for atrial tachycardia. EKG shows atrial tachycardia , RBBB, HR 115 bpm. Unchanged from previous EKG. HR continue to be in the 110' s. He denies chest pain or palpitations. Reports having tachycardia since he was a teenager. States he was unable to play sports due to tachycardia. History of atrial fibrillation on xarelto. Denies previous cardioversion or ablation. Xarelto recently stopped three months ago. Currently on hold d/t black tarry stools. He is awaiting GI work-up. Echo 01/2017 EF 45%, mild LV global systolic dysfunction, mild concentric LVH, mild RV hypokinesis, mild-moderate . Echo this admission, EF 40-45%. Mild LVH. No history of LHC. Past Med Surg Social Fam HX - Past Medical History Medical history: arthritis, atrial fibrillation, CHF, COPD, diabetes, hyperlipidemia, hypertension Psychiatric history: no psych history - Past Surgical History Surgical History: orthopedic, other, pacemaker/AICD - Social History Smoking Status: Current every day smoker Smokeless Tobacco Status: No Alcohol use: none Drug use: marijuana - Family History Father Hx Family Cardiac Disorders: Yes Mother Family Member Ethnicity: Non- Living Status: Medications and Allergies Amiodarone [Cordarone] 200 mg PO DAILY 04/28/15 [History] Aspirin 81 mg PO DAILY 04/28/15 [History] Atorvastatin [Lipitor] 40 mg PO HS 04/28/15 [History] Citalopram [CeleXA] 40 mg PO DAILY 04/28/15 [History] Docosahexanoic Acid/Epa [Fish Oil Concentrate Softgel] 1 each PO DAILY 04/28/15 [History] Ferrous Sulfate 325 mg PO BIDWM 04/28/15 [History] Garlic 1,000 mg PO DAILY 04/28/15 [History] GlipiZIDE XL (24 HR) [Glucotrol XL] 20 mg PO QAM 04/28/15 [History] Insulin DETEMIR [Levemir] 70 units SQ BID 04/28/15 [History] Meclizine [Antivert] 12.5 - 25 tab PO Q4HR PRN 04/28/15 [History] SitaGLIPtin [Januvia] 100 mg PO DAILY 04/28/15 [History] Albuterol Sulfate [Proair Hfa] 2 puff IH Q4H PRN 01/25/17 [History] Budesonide/Formoterol 160/4.5 [Symbicort 160/4.5] 2 puff IH BIDR 01/25/17 [ History] Metformin HCl [Glucophage] 1,000 mg PO BIDWM 01/25/17 [History] Metoprolol Succinate 200 mg PO DAILY 01/25/17 [History] Oxygen 2 l NS CONT 02/03/17 [History] Furosemide [Lasix] 60 mg PO BID #180 tab 02/08/17 [Rx] Dextrose Gel [Gluctose] 30 gm PO ONCE PRN #0 gel..gram. 02/23/17 [Rx] Glucagon, Human Recombinant [Glucagen] 1 mg IM ONCE PRN #0 vial 02/23/17 [Rx] Insulin LISPRO [HumaLOG] 0 units SQ TIDAC vial 02/23/17 [Rx] Nicotine Patch [Nicoderm] 21 mg TD DAILY #30 patch.td24 02/23/17 [Rx] Nitroglycerin 0.4 mg SL Q5MIN PRN #0 tab.subl 02/23/17 [Rx] Potassium Chloride 8 meq PO DAILY tablet.er 02/23/17 [Rx] Tiotropium [Spiriva] 18 mcg IH 0800 #30 inh 02/23/17 [Rx] metFORMIN [Glucophage] 1,000 mg PO BIDWM tablet 02/23/17 [Rx] Allergies bupropion [From Wellbutrin] Allergy (Verified 04/28/15 08:53) Difficulty Breathing codeine Allergy (Verified 04/28/15 08:53) Difficulty Breathing Opioids-Meperidine and Related [Opioids-Meperidine & Related] Allergy (Verified 04/28/15 08:53) Difficulty Breathing All Systems Review: A 10-system review of systems was performed and is negative for pertinent findings except as documented above in the HPI. Physical Examination Vital Signs, Last 4 Hours Temp Pulse Resp BP Pulse Ox 03/16/17 12:06 98.2 F 106 16 118/87 99 General: Conversant, No Apparent Distress, Other (obese male) HEENT: Atraumatic, Normocephaly, Mucus Membranes Moist Neck: No JVD, Normal carotid pulses Cardiac: Normal S1 and S2, No Murmur, Other (atrial tachycardia on telemetry) Lungs: Normal Breath Sounds, No Wheeze, Rales, Rhonchi Neuro: Alert and responsive, No focal deficits noted Abdomen: Soft, Non-Tender Skin: No rashes noted on visualized skin Musculoskeletal: No Chest Wall Tenderness Extremities: No Clubbing, No Cyanosis, Normal Pulses, Other (1+ edema up to his thighs) Results 03/16/17 05:40 03/16/17 05:40 Lab Results 03/16/17 03/16/17 05:40 05:40 WBC 10.7 Hgb 8.7 L Hct 29.5 L Plt Count 418 H Sodium 141 Potassium 2.9 L Chloride 105 Carbon Dioxide 29 BUN 22 Creatinine 0.89 Glucose 49 L Calcium 8.2 L - Imaging and Cardiology Echo: report reviewed - EKG Interpretation EKG results cardiology: personally reviewed, right bundle branch block Consult Discharge Plan - Plan Referrals: Damian Seymour MD [Primary Care Provider] -
[2017-03-17] MEDS: Ipratropium/Albuterol Neb 3 ML IH SCH ×7 (00:34→23:26)
[2017-03-17 05:47] LABS: Basophils # 0.1 K/mcL (0.0-0.2); Basophils % 0.7 %; Eosinophils # 0.2 K/mcL (0.0-0.6); Eosinophils % 1.4 %; Hematocrit 29.7 % (37.5-50.1); Hemoglobin 8.8 g/dL (12.9-16.9); Immature Granulocytes % 0.4 % (0-4); Lymphocytes # 0.9 K/mcL (0.6-4.6); Lymphocytes % 8.1 %; Mean Corpuscular HGB Conc 29.6 g/dL (31.6-35.5); Mean Corpuscular Hemoglobin 25.7 pg (28.0-33.3); Mean Corpuscular Volume 86.8 fL (83.0-100.0); Mean Platelet Volume 9.3 fL (9.4-12.4); Monocytes # 1.3 K/mcL (0.0-1.3); Monocytes % 11.5 %; Neutrophils # 8.7 K/mcL (1.6-8.9); Nucleated Red Blood Cells 0.2 /100 WBC (0); Platelet Count 420 K/mcL (140-400); Red Blood Count 3.42 M/mcL (4.19-5.50); Segmented Neutrophils % 77.9 %
[2017-03-17 06:00] LABS: BUN/Creatinine Ratio 22 (6-26); Blood Urea Nitrogen 22 mg/dL (8-26); Calcium 8.4 mg/dL (8.6-10.8); Carbon Dioxide 27 mEq/L (19-29); Chloride 103 mEq/L (98-109); Glucose 166 mg/dL (70-99); Osmolality,Calculated 295 (280-300); Potassium 3.6 mEq/L (3.5-4.5); Sodium 139 mEq/L (136-145); eGFR For African Americans > 60 (> 60); eGFR For Non-African Americans > 60 (> 60)
[2017-03-17] MEDS: *HR* Heparin 5,000 UNIT/ML VIAL SQ SCH ×2 (06:00→17:11)
[2017-03-17 06:44] LABS: Anisocytosis 3+ (Not Present); Hypochromasia Present (Not Present); Platelet Estimate Normal (Normal); Polychromasia 1+ (Not Present)
[2017-03-17] MEDS: Budesonide/Formoterol 160/4.5 MDI IH SCH ×2 (08:02→20:02)
[2017-03-17] MEDS ORDERED: Diltiazem CD (24hr) 120 MG CAPSULE PO SCH (09:00)
[2017-03-17] MEDS: Furosemide 40 MG/4 ML VIAL IVP SCH ×2 (09:48→16:24)
[2017-03-17] MEDS: Metoprolol XL (24 HR) Succ 50 MG TAB.ER.24H PO SCH (09:48)
[2017-03-17] MEDS: Insulin DETEMIR 100 UNIT/ML X5UNITS SQ SCH ×2 (09:48→20:37)
[2017-03-17] MEDS: Nicotine 21 MG PATCH.TD24 TD SCH (09:49)
[2017-03-17] MEDS: Famotidine 20 MG TABLET PO SCH (09:49)
[2017-03-17] MEDS: Aspirin 81 MG TAB.CHEW PO SCH (09:49)
[2017-03-17] MEDS: Insulin LISPRO 300 UNITS/3 ML VIAL SQ SCH ×4 (09:50→20:38)
[2017-03-17] MEDS ORDERED: Diltiazem CD (24hr) 120 MG CAPSULE PO ONE (12:10)
--- NOTE | 2017-03-17 15:23 | Cardiology Progress Note ---
Date of Encounter: 03/17/17 Time of Encounter: 15:21 Assessment and Plan (1) Atrial tachycardia Current Visit: Yes Status: Acute Per cardiology: EKg reviewed with Dr. Damian Calderon. Atrial tachycardia vs atrial flutter, HR 115. Telemetry review shows avg HR over last 12hr was 109 bpm. HR currently 98-100 bpm. PPM interrogation showed single lead PPM. Implated 02/2015. Last device check was 11/2015. He is 35% paced. HR 110-120 30% of the time. TTE- EF 45-50%%. Mild LVH. Limited study. Echo 01/2017 EF 45%, mild LV global systolic dysfunction, mild concentric LVH, mild RV hypokinesis, mild-moderate . Rate control strategy recommended. Cardizem increased to 360 mg daily. Continue toprol XL 200 mg daily. Goal to keep HR 100 bpm or less. Out-patient f/u with Dr. Calderon and device clinic will be coordinated by [facility]. H/o afib on xarelto. Restart Xarelto once okay from GI standpoint. Also noted to have blood in urine. May be secondary to navarrete trauma. Hgb currently stable. Cardiology will sign off. Please call with questions. (2) Afib Current Visit: Yes Status: Chronic EKG shows atrial tachycardia vs atrial flutter. H/o afib. Started on Amiodarone in 2014 (monitored by [facility]). Amio discontinued during this stay. Continue cardizem and toprol XL. CHADS VASc=5 for CHF, HTN, age 1, DM. Recommend restarting xarelto for CVA prevention once cleared by GI from a bleeding standpoint. Qualifiers: Atrial fibrillation type: paroxysmal Qualified Code(s): I48.0 - Paroxysmal atrial fibrillation (3) Pacemaker Current Visit: Yes Status: Acute Single chamber PPM inserted in 2014. PPM check shows normal functioning device. 35% pacing. Device check report from 2015 states PPM placed for atrial arrhythmia. (4) Acute exacerbation of CHF (congestive heart failure) Current Visit: Yes Status: Acute Acute on chronic systolic and diastolic CHF exacerbation. Echo 01/2017 EF mildly reduced 45%. (Previously 55-60% 04/2016). Echo yesterday shows EF 45-50%. CXR edema vs. PNA. BNP only mildly elevated--294. Suspect respiratory component as well. Negative 2500ml for 24 hours. Symptoms improved. Will need low dose maintenance lasix at discharge. CHF education reviewed. Recommend Strict I/Os, daily weights, Na and fluid restriction. \ Qualifiers: Congestive heart failure type: combined Qualified Code(s): I50.43 - Acute on chronic combined systolic (congestive) and diastolic (congestive) heart failure Discussion w patient/family: The assessment and plan as outlined above was discussed with the patient and/or family members who expressed understanding and agreement. All questions were answered. Thank you for involving us in the care of your patient. Please call with any questions. Subjective Principal diagnosis: CHF, atrial tachycardia Interval history: Mr. Diaz is sitting up in his chair. Denies chest pain or palpitations. SOB improved. Objective Vital Signs, Last 4 Hours Temp Pulse Resp BP Pulse Ox 03/17/17 13:46 108 03/17/17 12:08 98.1 F 81 18 119/64 99 03/17/17 11:38 18 98 General: Conversant, No Apparent Distress HEENT: Atraumatic, Normocephaly, Mucus Membranes Moist Neck: No JVD, Normal carotid pulses Cardiac: Reg Rate and Rhythm, Normal S1 and S2, No Murmur, Other (SR-ST on telemetry) Lungs: Normal Breath Sounds, No Wheeze, Rales, Rhonchi Neuro: Alert and responsive, No focal deficits noted Abdomen: Soft, Non-Tender Skin: No rashes noted on visualized skin Musculoskeletal: No Chest Wall Tenderness Extremities: No Clubbing, No Cyanosis, Normal Pulses, Other (1+ BLE edema with brownish discoloration. ) Results 03/17/17 04:55 03/17/17 04:55 Lab Results 03/17/17 03/17/17 04:55 04:55 WBC 11.1 Hgb 8.8 L Hct 29.7 L Plt Count 420 H Sodium 139 Potassium 3.6 Chloride 103 Carbon Dioxide 27 BUN 22 Creatinine 1.02 Glucose 166 H Calcium 8.4 L Consult Discharge Plan - Plan Referrals: Damian Seymour MD [Primary Care Provider] - 03/28/17 2:30 pm
--- NOTE | 2017-03-17 15:43 | Internal Med Progress Note ---
Date of Encounter: 03/17/17 Time of Encounter: 15:41 - Assessment and plan (1) Acute exacerbation of CHF (congestive heart failure) Current Visit: Yes Status: Acute Assessment and plan: Good response to Lasix. We will change to by mouth Lasix. Continue aspirin, statin and beta june. Has had -2.3 L fluid output since admission. Moderate risk for complications Qualifiers: Qualified Code(s): I50.43 - Acute on chronic combined systolic (congestive) and diastolic (congestive) heart failure (2) Acute exacerbation of chronic obstructive airways disease Current Visit: Yes Status: Acute Assessment and plan: With chronic respiratory failure. Improving. Continue bronchodilators. On chronic home oxygen. Initial x-ray in the ED showed right mid lobe confluent edema versus infiltrate. We will repeat chest x-ray to look for improvement. (3) Afib Current Visit: Yes Status: Chronic Assessment and plan: Uncontrolled. Heart rate has worsened since I saw him yesterday and has been mostly in the 110s. Cardiology and EP are following patient. Patient's Cardizem was increased to 240 yesterday. As heart rate remained uncontrolled, cardiology recommends increasing Cardizem to 360. Patient is not on anticoagulation due to history of anemia needing further GI workup with capsule endoscopy. Qualifiers: Qualified Code(s): I48.0 - Paroxysmal atrial fibrillation (4) Anemia Current Visit: Yes Status: Chronic Assessment and plan: Hemoglobin levels are stable. 8.8 today. On iron supplements. Will need outpatient follow-up with GI for capsule endoscopy. Qualifiers: Qualified Code(s): D64.9 - Anemia, unspecified (5) Essential hypertension Current Visit: Yes Status: Chronic Assessment and plan: Blood pressure is well controlled. (6) GI bleed Current Visit: Yes Status: Suspected Assessment and plan: On PPI. Follow up outpatient with GI for capsule endoscopy. Currently not having any active GI bleed. Hemoglobin levels are stable. Qualifiers: Qualified Code(s): K92.2 - Gastrointestinal hemorrhage, unspecified (7) Hypokalemia Current Visit: No Status: Acute Assessment and plan: Improved with oral and IV repletion. (8) Morbid obesity with BMI of 40.0-44.9, adult Current Visit: Yes Status: Chronic (9) Physical deconditioning Current Visit: Yes Status: Chronic Assessment and plan: Evaluated by physical therapy. Recommended home health. (10) Sleep apnea with use of continuous positive airway pressure (CPAP) Current Visit: Yes Status: Chronic Assessment and plan: Use CPAP while patient is lying down. (11) Type 2 diabetes mellitus Current Visit: Yes Status: Chronic Assessment and plan: No new episodes of hypoglycemia. Overall blood sugars are improving. We will adjust insulin regimen accordingly. 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 Denies any new complaints. Shortness of breath and lower extremity swelling improving. No palpitations. Heart rate has been ranging in the 110s since yesterday afternoon. No chest pain. - Constitutional Vitals: Temp Pulse Resp BP Pulse Ox 98.1 F 108 18 119/64 99 03/17/17 12:08 03/17/17 13:46 03/17/17 15:22 03/17/17 12:08 03/17/17 15:22 General appearance: Present: mild distress, A&O X 3, morbidly obese, answers questions appropriately - Neck Neck exam general surgery: Present: supple, trachea midline. Absent: lymphadenopathy - Respiratory Respiratory exam: Present: CTAB. Absent: accessory muscle use, rales, rhonchi, wheezes - Cardiovascular Cardiovascular exam: Present: irregular rhythm, +S1, +S2, tachycardia. Absent: diastolic murmur, gallop, rubs, systolic murmur - GI/Abdominal GI/Abdominal exam: Present: normal bowel sounds, soft, no peritoneal signs. Absent: distended, tenderness - Extremities Exam Extremities exam: Present: pedal edema, warm, radial pulses palpable and symetrical. Absent: calf tenderness, cyanotic - Neurological Exam Neurological exam: Present: CN II-XII intact, oriented X3, no focal deficits. Absent: facial droop, speech deficit - Skin Skin exam: Present: dry, intact Internal Medicine: Result - Labs CBC & Chem 7: 03/17/17 04:55 03/17/17 04:55 Labs: Short CBC 03/17/17 Range/Units 04:55 WBC 11.1 (4.3-11.1) K/mcL Hgb 8.8 L (12.9-16.9) g/dL Hct 29.7 L (37.5-50.1) % Plt Count 420 H (140-400) K/mcL Neutrophils # 8.7 (1.6-8.9) K/mcL BMP 03/17/17 04:55 Sodium 139 Potassium 3.6 Chloride 103 Carbon Dioxide 27 BUN 22 Creatinine 1.02 Glucose 166 H Calcium 8.4 L - ABG Interpretation ABG results: PT/INR, D-dimer PT 15.6 Seconds (9.4-12.1) H 03/15/17 04:55 Consult Discharge Plan - Plan Referrals: Damian Seymour MD [Primary Care Provider] - 03/28/17 2:30 pm
[2017-03-18] MEDS: Ipratropium/Albuterol Neb 3 ML IH SCH ×5 (04:07→21:02)
[2017-03-18] MEDS: *HR* Heparin 5,000 UNIT/ML VIAL SQ SCH ×2 (05:08→17:39)
[2017-03-18] MEDS: Budesonide/Formoterol 160/4.5 MDI IH SCH ×2 (07:51→21:02)
[2017-03-18] MEDS: Aspirin 81 MG TAB.CHEW PO SCH (08:40)
[2017-03-18] MEDS: Furosemide 40 MG/4 ML VIAL IVP SCH ×3 (08:42→16:31)
[2017-03-18] MEDS: Insulin LISPRO 300 UNITS/3 ML VIAL SQ SCH ×3 (08:42→17:09)
[2017-03-18] MEDS: Metoprolol XL (24 HR) Succ 50 MG TAB.ER.24H PO SCH (08:42)
[2017-03-18] MEDS: Nicotine 21 MG PATCH.TD24 TD SCH (08:43)
[2017-03-18] MEDS ORDERED: Diltiazem CD (24hr) 120 MG CAPSULE PO SCH (09:00)
[2017-03-18] MEDS ORDERED: levoFLOXacin 500 MG TABLET PO SCH (09:00)
[2017-03-18] MEDS: Insulin DETEMIR 100 UNIT/ML X5UNITS SQ SCH ×2 (10:17→20:21)
--- NOTE | 2017-03-18 12:56 | Discharge Summary ---
Date of Encounter: 03/18/17 Time of Encounter: 08:35 - Discharge Diagnosis (1) Acute exacerbation of CHF (congestive heart failure) Priority: Primary Status: Acute Qualifiers: Congestive heart failure type: combined Qualified Code(s): I50.43 - Acute on chronic combined systolic (congestive) and diastolic (congestive) heart failure (2) Acute exacerbation of chronic obstructive airways disease Priority: Secondary Status: Acute (3) Afib Priority: Secondary Status: Chronic Qualifiers: Atrial fibrillation type: paroxysmal Qualified Code(s): I48.0 - Paroxysmal atrial fibrillation (4) Anemia Priority: Secondary Status: Chronic Qualifiers: Anemia type: unspecified type Qualified Code(s): D64.9 - Anemia, unspecified (5) Essential hypertension Priority: Secondary Status: Chronic (6) GI bleed Priority: Secondary Status: Suspected Qualifiers: GI bleed type/associated pathology: unspecified gastrointestinal hemorrhage type Qualified Code(s): K92.2 - Gastrointestinal hemorrhage, unspecified (7) Hypokalemia Priority: Secondary Status: Acute (8) Morbid obesity with BMI of 40.0-44.9, adult Priority: Secondary Status: Chronic (9) Physical deconditioning Priority: Secondary Status: Chronic (10) Sleep apnea with use of continuous positive airway pressure (CPAP) Priority: Secondary Status: Chronic (11) Type 2 diabetes mellitus Priority: Secondary Status: Chronic Qualifiers: Diabetes mellitus complication status: with unspecified complications Diabetes mellitus penitentiary insulin use: with home health aide use Qualified Code(s) : E11.8 - Type 2 diabetes mellitus with unspecified complications; Z79.4 - nursing home (current) use of insulin (12) DVT prophylaxis Priority: Secondary Status: Acute (13) Chronic respiratory failure Priority: Secondary Status: Chronic Qualifiers: Respiratory failure complication: hypoxia Qualified Code(s): J96.11 - Chronic respiratory failure with hypoxia - Discharge Medications Prescriptions: Diltiazem CD (24hr) [Cardizem CD] 360 mg PO DAILY #60 cap.er.24h levoFLOXacin [Levaquin] 500 mg PO DAILY #5 tablet Home Medications: Amiodarone [Cordarone] 200 mg PO DAILY 04/28/15 [History] Aspirin 81 mg PO DAILY 04/28/15 [History] Atorvastatin [Lipitor] 40 mg PO HS 04/28/15 [History] Citalopram [CeleXA] 40 mg PO DAILY 04/28/15 [History] Docosahexanoic Acid/Epa [Fish Oil Concentrate Softgel] 1 each PO DAILY 04/28/15 [History] Ferrous Sulfate 325 mg PO BIDWM 04/28/15 [History] Garlic 1,000 mg PO DAILY 04/28/15 [History] GlipiZIDE XL (24 HR) [Glucotrol XL] 20 mg PO QAM 04/28/15 [History] Insulin DETEMIR [Levemir] 70 units SQ BID 04/28/15 [History] Meclizine [Antivert] 12.5 - 25 tab PO Q4HR PRN 04/28/15 [History] SitaGLIPtin [Januvia] 100 mg PO DAILY 04/28/15 [History] Albuterol Sulfate [Proair Hfa] 2 puff IH Q4H PRN 01/25/17 [History] Budesonide/Formoterol 160/4.5 [Symbicort 160/4.5] 2 puff IH BIDR 01/25/17 [ History] Metformin HCl [Glucophage] 1,000 mg PO BIDWM 01/25/17 [History] Metoprolol Succinate 200 mg PO DAILY 01/25/17 [History] Oxygen 2 l NS CONT 02/03/17 [History] Furosemide [Lasix] 60 mg PO BID #180 tab 02/08/17 [Rx] Dextrose Gel [Gluctose] 30 gm PO ONCE PRN #0 gel..gram. 02/23/17 [Rx] Glucagon, Human Recombinant [Glucagen] 1 mg IM ONCE PRN #0 vial 02/23/17 [Rx] Insulin LISPRO [HumaLOG] 0 units SQ TIDAC vial 02/23/17 [Rx] Nicotine Patch [Nicoderm] 21 mg TD DAILY #30 patch.td24 02/23/17 [Rx] Nitroglycerin 0.4 mg SL Q5MIN PRN #0 tab.subl 02/23/17 [Rx] Potassium Chloride 8 meq PO DAILY tablet.er 02/23/17 [Rx] Tiotropium [Spiriva] 18 mcg IH 0800 #30 inh 02/23/17 [Rx] metFORMIN [Glucophage] 1,000 mg PO BIDWM tablet 02/23/17 [Rx] Diltiazem CD (24hr) [Cardizem CD] 360 mg PO DAILY #60 cap.er.24h 03/18/17 [Rx] levoFLOXacin [Levaquin] 500 mg PO DAILY #5 tablet 03/18/17 [Rx] Allergies/Adverse Reactions: Allergies bupropion [From Wellbutrin] Allergy (Verified 04/28/15 08:53) Difficulty Breathing codeine Allergy (Verified 04/28/15 08:53) Difficulty Breathing Opioids-Meperidine and Related [Opioids-Meperidine & Related] Allergy (Verified 04/28/15 08:53) Difficulty Breathing Procedures/tests Complete & Pending: Procedures Performed prior 72 hours Category Date Time Status EV limited echo w enhance Routine Y 03/16/17 10:18 Completed Date of admission: 03/15/17 07:09 Primary care physician: Damian Seymour, Consults: 03/15/17 08:29 Consult to Cardiology [CONS] Routine Comment: Consulting Provider: [facility] [place] Reason for Consult: atrial fibrillation, chf Call Completed: No 03/16/17 12:55 Consult to Electrophysiology (EP) [CONS] Routine Consulting Provider: Electrophys[facility] [place] Reason for Consult: Atrial tach Call Completed: Yes 03/16/17 13:23 Consult to Occupational Therapy [CONS] Routine Comment: Evaluate, develop and implement POC Reason for Consult: Gen weakness Discharging clinician: Santino Mosquera Anticipated date of discharge: 03/18/17 - Patient Status Disposition: Home Health Service Condition: Good Functional capacity at discharge: uses cane/walker Overall status at discharge: patient is progressing back to baseline - Discharge Instructions Instructions: Diltiazem (By mouth), Levofloxacin (By mouth), Heart Failure (DC) , Rectal Bleeding (DC), Rectal Bleeding (GEN), Chronic Obstructive Pulmonary Disease (DC), Fluid Restriction (DC), Fluid Restriction (GEN), Anemia (GEN), Fluid Restriction, Baby Attendant (GEN) Follow Up With: Damian Seymour MD [Primary Care Provider] - 03/28/17 2:30 pm Katiana Woodard MD [Partnered Physician] - Additional Instructions: Follow-up with GI in 1-2 weeks for further evaluation of anemia and possible GI bleed. Plan was to undergo capsule endoscopy as outpatient - Diet and Activity Activity: as per physical therapy, wear oxygen at all times Diet: diabetic diet, low fat, low cholesterol, low salt diet, other (Fluid restriction to 1.5 L per day) Hospital course: Mr. Diaz is a 71 year old male patient with a history of congestive heart failure, COPD, atrial fibrillation, diabetes mellitus type 2, anemia was admitted here with acute congestive heart failure along with A. fib with RVR. He was treated for these conditions with intravenous Lasix and intravenous Cardizem. After his heart rate was controlled, he was placed on oral Cardizem. Cardiology was consulted. As the patient's heart rate had been in the 110s per his pacemaker interrogation, his Cardizem dose was up titrated and he is currently on 360 mg of Cardizem. His heart rate is now better controlled. His congestive heart failure has improved and he has had good response to Lasix. He was also treated for COPD exacerbation with bronchodilators and that has also improved now. At this time, patient is stable to be discharged home and will follow up with cardiology as outpatient for further management of his A. fib and congestive heart failure. Patient is not on anticoagulation at this time for his A. fib due to his history of possible GI bleed and anemia. Patient has had workup with upper GI endoscopy and colonoscopy in the past and was recommended capsule endoscopy as outpatient. As the patient remains anemic, he will continue to stay off anticoagulation until GI workup is completed. Patient was evaluated with physical therapy and recommended home health. This will be arranged for the patient. Patient also has chronic respiratory failure and will continue to use home oxygen. - Time Spent with Patient Total time spent providing and/or coordinating discharge services: Greater than 30 minutes (40 min) - Constitutional Vitals: Temp Pulse Resp BP Pulse Ox 97.8 F 90 16 114/70 97 03/18/17 11:13 03/18/17 11:13 03/18/17 11:52 03/18/17 11:13 03/18/17 11:52 General appearance: Present: mild distress, A&O X 3, morbidly obese, answers questions appropriately - Neck Neck exam general surgery: Present: supple, trachea midline. Absent: lymphadenopathy - Respiratory Respiratory exam: Present: CTAB. Absent: accessory muscle use, rales, rhonchi, wheezes - Cardiovascular Cardiovascular exam: Present: RRR, +S1, +S2. Absent: diastolic murmur, gallop, rubs, systolic murmur - GI/Abdominal GI/Abdominal exam: Present: normal bowel sounds, soft, no peritoneal signs. Absent: distended, tenderness - Extremities Exam Extremities exam: Present: pedal edema, warm, radial pulses palpable and symetrical. Absent: calf tenderness, cyanotic - Neurological Exam Neurological exam: Present: CN II-XII intact, oriented X3, no focal deficits. Absent: facial droop, speech deficit - Skin Skin exam: Present: dry, intact
--- NOTE | 2017-03-18 13:04 | Physician Discharge Referral ---
Home Health/Hosp Referral Info Transfer to: Home Health Provider in Charge Post Discharge: PCP - Diagnosis (1) Acute exacerbation of CHF (congestive heart failure) Priority: Primary Status: Acute (2) Acute exacerbation of chronic obstructive airways disease Priority: Secondary Status: Acute (3) Afib Priority: Secondary Status: Chronic (4) Anemia Priority: Secondary Status: Chronic (5) Essential hypertension Priority: Secondary Status: Chronic (6) GI bleed Priority: Secondary Status: Suspected (7) Hypokalemia Priority: Secondary Status: Acute (8) Morbid obesity with BMI of 40.0-44.9, adult Priority: Secondary Status: Chronic (9) Physical deconditioning Priority: Secondary Status: Chronic (10) Sleep apnea with use of continuous positive airway pressure (CPAP) Priority: Secondary Status: Chronic (11) Type 2 diabetes mellitus Priority: Secondary Status: Chronic (12) DVT prophylaxis Priority: Secondary Status: Acute - Respiratory Orders Oxygen / L per min Smoking Cessation: Smoking cessation has been advised. For more information, call the [place] Tobacco Quit Line at 6-132-IRSF-NOW. - Diet/Nutrition Diet/Nutrition Orders: Cardiac, No Concentrated Sweets (diabetic) Diet/Nutrition: List: Fluid restriction to 1.5 L per day - Activity Activity Orders: Walker - Services Needed Following services are medically necessary services: Nursing, Physical Therapy, Occupational Therapy - Transfer Medications Prescriptions: Diltiazem CD (24hr) [Cardizem CD] 360 mg PO DAILY #60 cap.er.24h levoFLOXacin [Levaquin] 500 mg PO DAILY #5 tablet Home Medications: Amiodarone [Cordarone] 200 mg PO DAILY 04/28/15 [History] Aspirin 81 mg PO DAILY 04/28/15 [History] Atorvastatin [Lipitor] 40 mg PO HS 04/28/15 [History] Citalopram [CeleXA] 40 mg PO DAILY 04/28/15 [History] Docosahexanoic Acid/Epa [Fish Oil Concentrate Softgel] 1 each PO DAILY 04/28/15 [History] Ferrous Sulfate 325 mg PO BIDWM 04/28/15 [History] Garlic 1,000 mg PO DAILY 04/28/15 [History] GlipiZIDE XL (24 HR) [Glucotrol XL] 20 mg PO QAM 04/28/15 [History] Insulin DETEMIR [Levemir] 70 units SQ BID 04/28/15 [History] Meclizine [Antivert] 12.5 - 25 tab PO Q4HR PRN 04/28/15 [History] SitaGLIPtin [Januvia] 100 mg PO DAILY 04/28/15 [History] Albuterol Sulfate [Proair Hfa] 2 puff IH Q4H PRN 01/25/17 [History] Budesonide/Formoterol 160/4.5 [Symbicort 160/4.5] 2 puff IH BIDR 01/25/17 [ History] Metformin HCl [Glucophage] 1,000 mg PO BIDWM 01/25/17 [History] Metoprolol Succinate 200 mg PO DAILY 01/25/17 [History] Oxygen 2 l NS CONT 02/03/17 [History] Furosemide [Lasix] 60 mg PO BID #180 tab 02/08/17 [Rx] Dextrose Gel [Gluctose] 30 gm PO ONCE PRN #0 gel..gram. 02/23/17 [Rx] Glucagon, Human Recombinant [Glucagen] 1 mg IM ONCE PRN #0 vial 02/23/17 [Rx] Insulin LISPRO [HumaLOG] 0 units SQ TIDAC vial 02/23/17 [Rx] Nicotine Patch [Nicoderm] 21 mg TD DAILY #30 patch.td24 02/23/17 [Rx] Nitroglycerin 0.4 mg SL Q5MIN PRN #0 tab.subl 02/23/17 [Rx] Potassium Chloride 8 meq PO DAILY tablet.er 02/23/17 [Rx] Tiotropium [Spiriva] 18 mcg IH 0800 #30 inh 02/23/17 [Rx] metFORMIN [Glucophage] 1,000 mg PO BIDWM tablet 02/23/17 [Rx] Diltiazem CD (24hr) [Cardizem CD] 360 mg PO DAILY #60 cap.er.24h 03/18/17 [Rx] levoFLOXacin [Levaquin] 500 mg PO DAILY #5 tablet 03/18/17 [Rx] Allergies/Adverse Reactions: Allergies bupropion [From Wellbutrin] Allergy (Verified 04/28/15 08:53) Difficulty Breathing codeine Allergy (Verified 04/28/15 08:53) Difficulty Breathing Opioids-Meperidine and Related [Opioids-Meperidine & Related] Allergy (Verified 04/28/15 08:53) Difficulty Breathing Certification: Further, I certify that my clinical findings support that this patient is homebound (i.e. absences from home require considerable and taxing effort and are for medical reasons or jewish services or infrequently or short duration when for other reasons) because: Homebound Reason: Patient requires assistance of a person or device to safely leave home, Severity of cardiac or pulmonary status limits activity tolerance Attestation: My signature below is to certify that this patient is under my care and that I, or nurse practitioner, or a physician's library services assistant working with me, has a face-to -face encounter with this patient.
[2017-03-18 16:36] VITALS: BP 122/52
== END 2017-03-18 20:40 | disposition home health service (06) | DRG 292 ==
LOC: EMEROO 04:43 → 2NENU 04:43 → SUATTDRO 07:09
PROVIDERS: ADMIT Internal Medicine; ATTEND Internal Medicine

== ENCOUNTER 2017-04-06 15:07 | Inpatient (IN) ==
[2017-04-06] MEDS ORDERED: Ipratropium/Albuterol Neb 3 ML IH ONE (15:16)
[2017-04-06] MEDS ORDERED: Furosemide 40 MG/4 ML VIAL IVP ONE (15:16)
[2017-04-06 15:50] LABS: Bilirubin,Urine Negative (Negative); Blood,Urine Negative (Negative); Clarity,Urine Clear (Clear); Color,Urine Yellow (Yellow); Glucose,Urine (UA) Normal (Normal); Ketones,Urine Negative (Negative); Leukocyte Esterase,Urine Negative (Negative); Nitrite,Urine Negative (Negative); PH,Urine 5.5 pH Units (5.0-8.0); Protein,Urine Negative (Neg-Trace); Specific Gravity,Urine 1.014 (1.010-1.025); Urobilinogen,Urine Normal (Normal)
--- NOTE | 2017-04-06 15:51 | Emergency Department Note ---
Disposition Clinical Impression: Morbid obesity with BMI of 40.0-44.9, adult, Pacemaker Congestive heart failure Qualifiers: Congestive heart failure type: unspecified congestive heart failure type Congestive heart failure chronicity: unspecified congestive heart failure chronicity Qualified Code(s): I50.9 - Heart failure, unspecified Disposition: Admitted As Inpatient Condition: Fair Forms: ED Satisfaction Letter Time of Disposition: 17:31 General Adult HPI - General Chief complaint: ED Shortness of Breath/Dyspnea Stated complaint: CHF/Hypotension Time Seen by Provider: 04/06/17 15:15 Source: EMS Mode of arrival: EMS Limitations: physical limitation Nursing Notes Reviewed: Yes Vital Signs Reviewed: Yes - History of Present Illness HPI Narrative: Patient presents to emergency room with complaints of shortness of breath and weight gain at home. Family was concerned because he said persistently worsening shortness of breath and called squad brought him here to the ED for evaluation. Patient has multiple long-standing medical issues including heart arrhythmia with pacemaker in place congestive heart failure and coronary disease hypertension hyperlipidemia. Patient denies any recent trauma or illness. Denies any medication change. Denies any chest pain fevers chills nausea vomiting or diarrhea. He did disclose that he fell last night and does not remember why and does not remember the fall. No other complaints or symptoms this time. He does say that he is on a blood thinner. Onset (ago): day(s) Location: head, left, right, lower extremity Radiation: non-radiation Pain Severity: moderate Pain Scale: 0 Quality: aching Consistency: constant Worsens with: movement Associated symptoms: Reports: shortness of breath. Denies: confusion, chest pain, cough, diaphoresis, fever/chills, headaches, loss of appetite, malaise, nausea/vomiting, rash, syncope, weakness - Related Data Home Medications Medication Instructions Recorded Confirmed Amiodarone [Cordarone] 200 mg PO DAILY 04/28/15 03/15/17 Aspirin 81 mg PO DAILY 04/28/15 03/15/17 Atorvastatin [Lipitor] 40 mg PO HS 04/28/15 03/15/17 Citalopram [CeleXA] 40 mg PO DAILY 04/28/15 03/15/17 Docosahexanoic Acid/Epa [Fish Oil 1 each PO DAILY 04/28/15 03/15/17 Concentrate Softgel] Ferrous Sulfate 325 mg PO BIDWM 04/28/15 03/15/17 Garlic 1,000 mg PO DAILY 04/28/15 03/15/17 GlipiZIDE XL (24 HR) [Glucotrol XL] 20 mg PO QAM 04/28/15 03/15/17 Insulin DETEMIR [Levemir] 70 units SQ BID 04/28/15 03/15/17 SitaGLIPtin [Januvia] 100 mg PO DAILY 04/28/15 03/15/17 Albuterol Sulfate [Proair Hfa] 2 puff IH Q4H PRN 01/25/17 03/15/17 Budesonide/Formoterol 160/4.5 2 puff IH BIDR 01/25/17 03/15/17 [Symbicort 160/4.5] Metoprolol Succinate 200 mg PO DAILY 01/25/17 03/15/17 Oxygen 2 l NS CONT 02/03/17 03/15/17 Diltiazem HCl [Diltiazem 24Hr Cd] 180 mg PO BID 04/06/17 04/06/17 Insulin LISPRO [HumaLOG] 4 - 16 units SQ TIDAC 04/06/17 04/06/17 Meclizine HCl [Verticalm] 25 - 50 mg PO Q4H PRN 04/06/17 04/06/17 Rivaroxaban [Xarelto] 20 mg PO DAILY 04/06/17 04/06/17 Previous Rx's Medication Instructions Recorded Furosemide [Lasix] 60 mg PO BID #180 tab 02/08/17 Dextrose Gel [Gluctose] 30 gm PO ONCE PRN #0 gel..gram. 02/23/17 Glucagon, Human Recombinant 1 mg IM ONCE PRN #0 vial 02/23/17 [Glucagen] Nicotine Patch [Nicoderm] 21 mg TD DAILY #30 patch.td24 02/23/17 Nitroglycerin 0.4 mg SL Q5MIN PRN #0 tab.subl 02/23/17 Potassium Chloride 8 meq PO DAILY tablet.er 02/23/17 Tiotropium [Spiriva] 18 mcg IH 0800 #30 inh 02/23/17 metFORMIN [Glucophage] 1,000 mg PO BIDWM tablet 02/23/17 Allergies Allergy/AdvReac Type Severity Reaction Status Date / Time bupropion [From Wellbutrin] Allergy Difficulty Verified 04/28/15 08:53 Breathing codeine Allergy Difficulty Verified 04/28/15 08:53 Breathing Opioids-Meperidine and Allergy Difficulty Verified 04/28/15 08:53 Related Breathing [Opioids-Meperidine & Related] All systems ED: reviewed and negative except as stated. Review of Systems: As Per HPI Constitutional: Reports: weight change. Denies: fever, chills, weakness Cardiovascular: Denies: chest pain, palpitations, dyspnea on exertion, orthopnea , edema Respiratory: Denies: cough, dyspnea, wheezes Gastrointestinal: Denies: abdominal pain, nausea, vomiting, diarrhea, constipation Genitourinary: Reports: dysuria, frequency. Denies: urgency Musculoskeletal: Denies: back pain, neck pain Neurological: Denies: headache Psychiatric: Denies: anxiety, depression Hematological/Lymphatic: Denies: easy bleeding Past Medical History - Past Medical History Attestation: Yes The following information was validated with the patient. Source: patient Medical history: Reports: arthritis, atrial fibrillation, CHF, COPD, diabetes, hyperlipidemia, hypertension Surgical history: Reports: orthopedic, other, pacemaker/AICD Psychiatric history: Reports: no psych history - Social History Smoking Status: Current every day smoker Smokeless Tobacco Status: No Alcohol use: Reports: none Drug use: Reports: marijuana Physical Exam - General Limitations: physical limitation General appearance: alert, in no apparent distress - Head Head exam: atraumatic, normocephalic, normal inspection - Eye Eye exam: Present: normal appearance, PERRL, EOMI. Absent: miosis, mydriasis, periorbital swelling, periorbital tenderness - ENT ENT exam: normal exam, normal oropharynx, mucous membranes moist - Neck Neck exam: Present: normal inspection, full ROM, trachea midline. Absent: tenderness, lymphadenopathy - Chest Chest inspection: Present: normal inspection, symmetric chest wall rise - Respiratory Respiratory exam: Present: normal lung sounds bilaterally. Absent: respiratory distress, wheezes, accessory muscle use - Cardiovascular Cardiovascular exam: Present: normal rhythm, tachycardia, normal heart sounds - Abdominal Exam Abdominal exam: Present: soft, Non-Tender, distention, normal bowel sounds. Absent: tenderness, guarding, rebound, rigidity, incision, Kingston's sign, Rovsing's sign, tenderness at [place]Bur[place]'s Point, ascites, pulsatile mass - Male exam: Present: normal inspection, normal testicular lie - Extremities Exam Extremities exam: Present: tenderness, pedal edema (Up to the mid thigh and hip. ) - Back Exam Back exam: Present: normal inspection, full ROM. Absent: tenderness, CVA tenderness (R), CVA tenderness (L) - Neurological Exam Neurological exam: Present: alert, oriented X3, CN II-XII intact - Skin Skin exam: Present: warm, dry, intact, normal color Course Course Narrative: Patient seen and examined the time of arrival by EMS. See history of present illness. 71-year-old male presents by squad from home for evaluation of increased work of breathing shortness of breath and 10 pound weight gain. He has noticed his symptoms over last several days. Squad arrived at the house and the gentleman was in some mild respiratory distress. Placed him on his normal oxygen from home and took his vital signs. His blood pressure was hypotensive there as well as his heart rate being tachycardic. He is afebrile. During transport they noticed a sustained run of V. tach and his pacemaker took over eventually returning back to normal rhythm. On arrival here the patient has no specific distressing movements all from the count to the bed without any significant difficulty. He denies any recent fevers. He did disclose that he fell last night and he does not remember the event and does not remember why he fell. Head is atraumatic pupils are equal round reactive to light. He got no tenderness to the cervical or thoracic spine. His oral mucosa is patent his trachea is midline his lungs are clear he has some mild increased work of breathing secondary to truncal obesity. He does have a distended abdomen but no free fluid wave noted on exam. No peritoneal symptoms no guarding no rigidity. He has bilateral pitting edema up to the mid abdomen that is a +2 in presentation. Both his lower extremities are wrapped secondary to wounds. He also has a large hemorrhagic bulla on his left great toe from the fall last night. Imaging to be completed at this time of his head and chest laboratory workup including CHF exacerbation and evaluation to be completed at this time. Breathing treatment steroids and blood cultures ordered as well as EKG chest x-ray and BiPAP machine. Patient also had imaging of his bilateral feet at this time. No fluids to be given at this point. Single dose of Lasix to be given at this time IV administration. Disposition pending workup and treatment course. - Reevaluation(s) Reevaluation #1: Patient had laboratory workup reviewed. His BNP is elevated here today. Chest x-ray is also consistent with primary congestion. Heart rate has been persistently tachycardic at 102. He is anticoagulated with an INR of 2.3. Low clinical suspicion for possible pulmonary emboli this time. No acute signs of infectious etiology. Patient appears to have fluid overload and CHF exacerbation. [place] catheters placed as well as first dose of IV Lasix to be given. Blood pressure and vital signs are otherwise been stable. Admission process to be completed at this time Time: 16:50 Reevaluation #2: Patient reviewed with the hospitalist nurse practitioner Zoila. Review the presentation symptoms medical intervention as well as the labs imaging completed in the emergency room. No acute concerns or symptoms noted this time. Patient is stable and in good medical condition at the time of admission. We will continue to monitor him in the emergency room his admission process is completed Time: 18:10 Vital Signs Temperature 97.4 F L 04/06/17 15:10 Pulse Rate 103 04/06/17 15:10 Respiratory Rate 20 04/06/17 15:10 Blood Pressure 107/75 04/06/17 15:10 O2 Sat by Pulse Oximetry 100 04/06/17 15:10 Temperature 97.4 F L 04/06/17 15:10 Pulse Rate 103 04/06/17 15:10 Respiratory Rate 20 04/06/17 15:45 Blood Pressure 107/75 04/06/17 15:10 O2 Sat by Pulse Oximetry 100 04/06/17 15:45 Oxygen Delivery Oxygen Delivery Nasal Cannula Medical Decision Making - MDM Narrative Medical decision making narrative: Fluid overload, shortness of breath, CHF exacerbation, cardiac arrhythmia - Medical Records Medical records reviewed: Yes I reviewed the patient's medical records. - Lab Data Lab results reviewed: Yes I reviewed the patient's lab results. - Radiology Data Radiology results reviewed: Yes I reviewed the patient's radiology results. - EKG Data EKG #1 EKG attestation: Yes I reviewed and interpreted this EKG. EKG shows normal: sinus rhythm Rate: tachycardia [place]/QRS: right axis deviation, RBBB Voltage: increased voltage throughout When compared to previous EKG there are: no significant changes Interpretation: no acute changes, unchanged when compared to prior tracing (date ) (03/15/17) Critical Care Time Critical Care Time: Yes Total Critical Care Time: 35 Attestation: Critical care performed: Time is exclusive of separately billable procedures. Time includes: direct patient care, patient reassessment, coordination of patient care, interpretation of data (laboratory data, radiology data, and respiratory data), review of patient's medical records, medical consultation and documentation of patient care. Procedures included in critical care time: Procedures excluded from critical care time:
[2017-04-06 16:58] LABS: Basophils % 0.6 %
[2017-04-06 17:00] LABS: Basophils # 0.1 K/mcL (0.0-0.2); Eosinophils # 0.2 K/mcL (0.0-0.6); Eosinophils % 2.3 %; Hematocrit 35.2 % (37.5-50.1); Hemoglobin 10.3 g/dL (12.9-16.9); Immature Granulocytes % 0.4 % (0-4); Lymphocytes # 0.7 K/mcL (0.6-4.6); Lymphocytes % 6.9 %; Mean Corpuscular HGB Conc 29.3 g/dL (31.6-35.5); Mean Corpuscular Hemoglobin 26.3 pg (28.0-33.3); Mean Platelet Volume 9.1 fL (9.4-12.4); Monocytes # 0.9 K/mcL (0.0-1.3); Platelet Count 446 K/mcL (140-400); Red Blood Count 3.91 M/mcL (4.19-5.50); Red Cell Distribution Width 22.6 % (11.5-14.5); Segmented Neutrophils % 80.8 %
[2017-04-06 17:03] LABS: Neutrophils # 8.3 K/mcL (1.6-8.9)
[2017-04-06 17:14] LABS: BUN/Creatinine Ratio 32 (6-26); Blood Urea Nitrogen 36 mg/dL (8-26); Calcium 8.8 mg/dL (8.6-10.8); Carbon Dioxide 29 mEq/L (19-29); Chloride 104 mEq/L (98-109); Creatine Kinase 101 Units/L (30-200); Glucose 124 mg/dL (70-99); Osmolality,Calculated 304 (280-300); Potassium 3.4 mEq/L (3.5-4.5); Sodium 142 mEq/L (136-145); eGFR For African Americans > 60 (> 60); eGFR For Non-African Americans > 60 (> 60)
[2017-04-06 17:18] LABS: INR 2.3; Prothrombin Time 25.6 Seconds (9.4-12.1)
[2017-04-06 17:20] LABS: Activated Partial Thrombo Time 37.6 Seconds (26.0-36.0)
[2017-04-06 17:23] LABS: Anisocytosis 3+ (Not Present); Hypochromasia Present (Not Present)
[2017-04-06] MEDS ORDERED: Dextrose Gel 15 GM PO PRN ×2 (19:59)
[2017-04-06] MEDS ORDERED: Naloxone 0.4 MG/ML INJ IVP PRN (19:59)
[2017-04-06] MEDS ORDERED: *HR* Dextrose 50 % in Water (Syg) 50 ML SYRINGE IVP PRN (19:59)
[2017-04-06] MEDS ORDERED: D5% in Water 1,000 ML IVC PRN (19:59)
--- NOTE | 2017-04-06 20:34 | Internal Med History&Physical ---
Date of Encounter: 04/06/17 Time of Encounter: 20:31 Assessment and Plan (1) Acute congestive heart failure Current visit: No Status: Acute IV Lasix 40 mg twice a day, input and output measurements with diuretics diuretics. Optimize medical management Qualifiers: Congestive heart failure type: systolic Qualified Code(s): I50.21 - Acute systolic (congestive) heart failure (2) Type 2 diabetes mellitus Current visit: No Status: Chronic Continue home Lantus. Insulin sliding scale Qualifiers: Diabetes mellitus complication status: with unspecified complications Diabetes mellitus intermediate teacher insulin use: with intermediate teacher use Qualified Code(s) : E11.8 - Type 2 diabetes mellitus with unspecified complications; Z79.4 - assisted (current) use of insulin (3) Afib Current visit: No Status: Chronic Continue xarelto and cardiac medications Qualifiers: Atrial fibrillation type: paroxysmal Qualified Code(s): I48.0 - Paroxysmal atrial fibrillation (4) Gangrene of toe Current visit: Yes Status: Acute Consult podiatry on a non-emergent basis. Call consult in the morning (5) COPD (chronic obstructive pulmonary disease) Current visit: No Status: Chronic Continue chronic medications Qualifiers: COPD type: unspecified COPD Qualified Code(s): J44.9 - Chronic obstructive pulmonary disease, unspecified (6) Essential hypertension Current visit: No Status: Chronic Chronic hypertension Internal Medicine - H&P: HPI History of present illness: Mr. Diaz is a 71 year old male with a history of diabetes, CHF, COPD, hyperlipidemia, paroxysmal A. fib who presents with acute on chronic respiratory failure from pulmonary edema. He reports several days' history of worsening shortness of breath worse with exertion and better with rest. He uses oxygen at baseline but is unsure of the amount he uses. He has concentrator at home. Of note he had also developed a left toe early gangrene that was notified to him by his grandkids. In the ED CT head was negative foot x-ray was negative but chest x-ray noted pulmonary edema. Past Med Surg Social Fam HX - Past Medical History Medical history: arthritis, atrial fibrillation, CHF, COPD, diabetes, hyperlipidemia, hypertension Psychiatric history: no psych history - Past Surgical History Surgical History: orthopedic, other, pacemaker/AICD - Social History Smoking Status: Former smoker Smokeless Tobacco Status: No Alcohol use: none Drug use: marijuana - Family History Father Hx Family Cardiac Disorders: Yes (Quadruple Bypass) Mother Family Member Ethnicity: Non- Living Status: Internal Medicine - H&P: Meds Amiodarone [Cordarone] 200 mg PO DAILY 04/28/15 [History] Aspirin 81 mg PO DAILY 04/28/15 [History] Atorvastatin [Lipitor] 40 mg PO HS 04/28/15 [History] Citalopram [CeleXA] 40 mg PO DAILY 04/28/15 [History] Docosahexanoic Acid/Epa [Fish Oil Concentrate Softgel] 1 each PO DAILY 04/28/15 [History] Ferrous Sulfate 325 mg PO BIDWM 04/28/15 [History] Garlic 1,000 mg PO DAILY 04/28/15 [History] GlipiZIDE XL (24 HR) [Glucotrol XL] 20 mg PO QAM 04/28/15 [History] Insulin DETEMIR [Levemir] 70 units SQ BID 04/28/15 [History] SitaGLIPtin [Januvia] 100 mg PO DAILY 04/28/15 [History] Albuterol Sulfate [Proair Hfa] 2 puff IH Q4H PRN 01/25/17 [History] Budesonide/Formoterol 160/4.5 [Symbicort 160/4.5] 2 puff IH BIDR 01/25/17 [ History] Metoprolol Succinate 200 mg PO DAILY 01/25/17 [History] Oxygen 2 l NS CONT 02/03/17 [History] Furosemide [Lasix] 60 mg PO BID #180 tab 02/08/17 [Rx] Dextrose Gel [Gluctose] 30 gm PO ONCE PRN #0 gel..gram. 02/23/17 [Rx] Glucagon, Human Recombinant [Glucagen] 1 mg IM ONCE PRN #0 vial 02/23/17 [Rx] Nicotine Patch [Nicoderm] 21 mg TD DAILY #30 patch.td24 02/23/17 [Rx] Nitroglycerin 0.4 mg SL Q5MIN PRN #0 tab.subl 02/23/17 [Rx] Potassium Chloride 8 meq PO DAILY tablet.er 02/23/17 [Rx] Tiotropium [Spiriva] 18 mcg IH 0800 #30 inh 02/23/17 [Rx] metFORMIN [Glucophage] 1,000 mg PO BIDWM tablet 02/23/17 [Rx] Diltiazem HCl [Diltiazem 24Hr Cd] 180 mg PO BID 04/06/17 [History] Insulin LISPRO [HumaLOG] 4 - 16 units SQ TIDAC 04/06/17 [History] Meclizine HCl [Verticalm] 25 - 50 mg PO Q4H PRN 04/06/17 [History] Rivaroxaban [Xarelto] 20 mg PO DAILY 04/06/17 [History] Allergies bupropion [From Wellbutrin] Allergy (Verified 04/28/15 08:53) Difficulty Breathing codeine Allergy (Verified 04/28/15 08:53) Difficulty Breathing Opioids-Meperidine and Related [Opioids-Meperidine & Related] Allergy (Verified 04/28/15 08:53) Difficulty Breathing All Systems PM: A 10-system review of systems was performed and is negative for pertinent findings except as documented above in the HPI. Review of systems: ROS 14 point review of systems reviewed. Pertinent positive or negative as per HPI or otherwise reviewed as negative - Constitutional Vitals: Temp Pulse Resp BP Pulse Ox 0 F L 102 20 114/70 100 04/06/17 18:44 04/06/17 15:59 04/06/17 18:44 04/06/17 18:44 04/06/17 16:04 Exam: General - AAO x 3 Psych - Appropriate affect/speech. No agitation Eyes - LUIZ. Eye lids intact. No scleral icterus ENT - Oral mucosa pink, dentition intact. External ear clear/dry/intact. No thyromegaly Lymphatics - No cervical/inguinal lympadenopathy Neuro - No gross peripheral or central neuro deficits with intact CN 2-12 exam Heart - Sinus. RRR. S1 and S2 present. No added HS/murmurs appreciated. No elevated JVD appreciated. +2 lower extremity edema with bandage wrapped Lung - Adequate air entry b/l, bibasal crackles no wheezes appreciated GI - Soft, non-tender. No hepatosplenomegaly/ascities. BS+ - No CVA/suprapubic tenderness or palpable bladder distension Skin - Intact. No rash/petechiae/ecchymosis. Warm extremities MSK - left big toe gangrene Internal Med - H&P Results - Labs CBC & Chem 7: 04/06/17 16:49 04/06/17 16:49
[2017-04-06] MEDS ORDERED: INSULIN DETEMIR 70 UNIT SQ SCH (21:00)
[2017-04-06] MEDS: Diltiazem CD (24hr) 180 MG CAPSULE PO SCH (21:59)
[2017-04-06] MEDS: Insulin LISPRO 300 UNITS/3 ML VIAL SQ SCH (21:59)
[2017-04-06] MEDS: Furosemide 40 MG/4 ML VIAL IVP SCH (21:59)
[2017-04-06] MEDS: Insulin DETEMIR 100 UNIT/ML X5UNITS SQ SCH (22:00)
[2017-04-07] MEDS: Budesonide/Formoterol 160/4.5 MDI IH SCH ×3 (00:02→20:30)
[2017-04-07 04:51] LABS: Basophils # 0.1 K/mcL (0.0-0.2); Basophils % 0.7 %; Eosinophils # 0.3 K/mcL (0.0-0.6); Eosinophils % 2.9 %; Hematocrit 32.7 % (37.5-50.1); Hemoglobin 9.5 g/dL (12.9-16.9); Immature Granulocytes % 0.4 % (0-4); Lymphocytes # 0.8 K/mcL (0.6-4.6); Lymphocytes % 7.6 %; Mean Corpuscular HGB Conc 29.1 g/dL (31.6-35.5); Mean Corpuscular Volume 89.6 fL (83.0-100.0); Mean Platelet Volume 9.6 fL (9.4-12.4); Monocytes # 1.1 K/mcL (0.0-1.3); Monocytes % 10.8 %; Neutrophils # 7.7 K/mcL (1.6-8.9); Platelet Count 452 K/mcL (140-400); Red Blood Count 3.65 M/mcL (4.19-5.50); Red Cell Distribution Width 22.5 % (11.5-14.5); Segmented Neutrophils % 77.6 %
[2017-04-07 05:01] LABS: BUN/Creatinine Ratio 30 (6-26); Blood Urea Nitrogen 32 mg/dL (8-26); Calcium 8.7 mg/dL (8.6-10.8); Carbon Dioxide 31 mEq/L (19-29); Chloride 105 mEq/L (98-109); Glucose 63 mg/dL (70-99); Osmolality,Calculated 301 (280-300); Potassium 2.9 mEq/L (3.5-4.5); Sodium 143 mEq/L (136-145); eGFR For African Americans > 60 (> 60); eGFR For Non-African Americans > 60 (> 60)
[2017-04-07] MEDS: Tiotropium 18 MCG inhalation IH SCH (08:11)
[2017-04-07] MEDS: Insulin LISPRO 300 UNITS/3 ML VIAL SQ SCH ×4 (08:53→22:09)
[2017-04-07] MEDS ORDERED: *HR* SitaGLIPtin 100 MG TABLET PO SCH (09:00)
[2017-04-07] MEDS: Insulin DETEMIR 100 UNIT/ML X5UNITS SQ SCH ×2 (09:01→22:08)
[2017-04-07] MEDS: Diltiazem CD (24hr) 180 MG CAPSULE PO SCH ×2 (09:01→22:08)
[2017-04-07] MEDS: *HR* Amiodarone 200 MG TABLET PO SCH (09:02)
[2017-04-07] MEDS: Furosemide 40 MG/4 ML VIAL IVP SCH ×2 (09:02→17:46)
[2017-04-07] MEDS: Metoprolol XL (24 HR) Succ 50 MG TAB.ER.24H PO SCH (09:02)
[2017-04-07] MEDS: Aspirin 81 MG TAB.CHEW PO SCH (09:02)
[2017-04-07] MEDS: *HR* Rivaroxaban 10 MG TABLET PO SCH (09:02)
[2017-04-07] MEDS: Potassium Chloride 40 MEQ, Lidocaine 1% 2 ML in D5% in Water 500 ML IVPB SCH ×2 (09:03→13:33)
--- NOTE | 2017-04-07 11:47 | Internal Med Progress Note ---
Date of Encounter: 04/07/17 Time of Encounter: 11:47 - Assessment and plan (1) Acute exacerbation of CHF (congestive heart failure) Current Visit: No Status: Acute Assessment and plan: Respiratory status improved As per patient he is back to his baseline continue O2 supplementation continue IV diuretics monitor I/Os fluid restriction diet monitor daily weight bipap support as needed Qualifiers: Congestive heart failure type: combined Qualified Code(s): I50.43 - Acute on chronic combined systolic (congestive) and diastolic (congestive) heart failure (2) Foot ulcer Current Visit: Yes Status: Acute Assessment and plan: history of diabetes and diabetic foot ulcers s/p trauma to left big toe appears to be edematous with fluid collection Podiatry consultation requested no clinical signs of infection present at this time, will monitor off abx Qualifiers: Laterality: left Non-pressure ulcer stage: unspecified non-pressure ulcer stage Qualified Code(s): L97.529 - Non-pressure chronic ulcer of other part of left foot with unspecified severity (3) Afib Current Visit: No Status: Chronic Assessment and plan: Rate controlled with Amiodarone anticoagulated with Xarelto Qualifiers: Atrial fibrillation type: paroxysmal Qualified Code(s): I48.0 - Paroxysmal atrial fibrillation (4) COPD (chronic obstructive pulmonary disease) Current Visit: No Status: Chronic Assessment and plan: not in acute exacerbation continue bronchodilator support and O2 supplementation as needed Qualifiers: COPD type: unspecified COPD Qualified Code(s): J44.9 - Chronic obstructive pulmonary disease, unspecified (5) Hypokalemia Current Visit: No Status: Acute Assessment and plan: K supplemented continue to monitor electrolytes and replace as needed (6) Sleep apnea with use of continuous positive airway pressure (CPAP) Current Visit: No Status: Chronic (7) Type 2 diabetes mellitus Current Visit: No Status: Chronic Assessment and plan: continue home insulin dosing added ss insulin algorithm as needed monitor FS and BG as needed Qualifiers: Diabetes mellitus complication status: with unspecified complications Diabetes mellitus residential insulin use: with residential use Qualified Code(s) : E11.8 - Type 2 diabetes mellitus with unspecified complications; Z79.4 - group home (current) use of insulin (8) DVT prophylaxis Current Visit: Yes Status: Acute Assessment and plan: anticoagulated with Xarelto (9) Morbid obesity with BMI of 45.0-49.9, adult Current Visit: Yes Status: Chronic - Subjective Interval history: Pt seen and examined at bedside. Resting in bed and reports of feeling better. States his breathing is back to baseline. Reports of falling off his rolator and injuring his left big toe. Currently bruised and edematous. Denies any pain at this time. - Constitutional Vitals: Temp Pulse Resp BP Pulse Ox 97.9 F 74 16 125/67 95 04/07/17 06:59 04/07/17 06:59 04/07/17 08:12 04/07/17 06:59 04/07/17 08:12 General appearance: Present: A&O X 3, morbidly obese, no acute distress, answers questions appropriately - Head Head exam: Present: atraumatic, normocephalic - Eye Eye exam: Present: conjuntiva pink, sclera anicteric - Respiratory Respiratory exam: Present: decreased breath sounds. Absent: respiratory distress, wheezes - Cardiovascular Cardiovascular exam: Present: RRR, +S1, +S2. Absent: diastolic murmur, gallop, rubs, systolic murmur - GI/Abdominal GI/Abdominal exam: Present: normal bowel sounds, soft, no peritoneal signs. Absent: distended, tenderness - Extremities Exam Extremities exam: Present: warm, radial pulses palpable and symetrical. Absent : calf tenderness Additional comments: b/l LE wrapped in dressing, Lt great toe edematous and bruised s/p trauma to the toe - Neurological Exam Neurological exam: Present: alert, oriented X3 - Psychiatric Psychiatric exam: Present: normal affect, normal mood Internal Medicine: Result - Labs CBC & Chem 7: 04/07/17 04:06 04/07/17 04:06 Labs: Short CBC 04/07/17 Range/Units 04:06 WBC 9.9 (4.3-11.1) K/mcL Hgb 9.5 L (12.9-16.9) g/dL Hct 32.7 L (37.5-50.1) % Plt Count 452 H (140-400) K/mcL Neutrophils # 7.7 (1.6-8.9) K/mcL BMP 04/07/17 04:06 Sodium 143 Potassium 2.9 L Chloride 105 Carbon Dioxide 31 H BUN 32 H Creatinine 1.05 Glucose 63 L Calcium 8.7 - ABG Interpretation ABG results: PT/INR, D-dimer PT 25.6 Seconds (9.4-12.1) H 04/06/17 16:47 Consult Discharge Plan - Plan Referrals: NO,PCP [Primary Care Provider] -
--- NOTE | 2017-04-07 14:09 | Electrocardiograph Report ---
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
--- NOTE | 2017-04-07 14:42 | Electrocardiograph Report ---
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
--- NOTE | 2017-04-07 15:23 | Podiatry Consult Note ---
Date of Encounter: 04/07/17 Time of Encounter: 12:20 Assessment and Plan (1) Foot ulcer Current visit: Yes Status: Acute DFU to the plantar aspect of the left foot and posterior lateral aspect of the right heel. 100% yellow slough to both ulcerations, no probe to bone, no evidence of bacterial infection. Wound care ordered for Santyl ointment to both ulcerations with sterile 4x4 gauze and kerlix. Xrays obtained of both feet and no evidence of bony erosion or OM. Qualifiers: Laterality: left Non-pressure ulcer stage: unspecified non-pressure ulcer stage Qualified Code(s): L97.529 - Non-pressure chronic ulcer of other part of left foot with unspecified severity (2) Blister of toe of left foot Current visit: Yes Status: Acute Large blood filled blister encompassing the distal phalanx of the left great toe sparing the nail bed. Pedal pulses palpable. Xrays obtained and no evidence of bony erosion or OM. Plan will be to drain blister and local wound care. Patient will require a post op surgical shoe. 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 insulin use: unspecified middle or intermediate school principal insulin use status Qualified Code(s): E11.40 - Type 2 diabetes mellitus with diabetic neuropathy, unspecified (4) Congestive heart failure Current visit: Yes Status: Chronic Qualifiers: Congestive heart failure type: unspecified congestive heart failure type Congestive heart failure chronicity: unspecified congestive heart failure chronicity Qualified Code(s): I50.9 - Heart failure, unspecified (5) Morbid obesity with BMI of 45.0-49.9, adult Current visit: Yes Status: Chronic (6) Acute and chronic respiratory failure Current visit: No Status: Acute Qualifiers: Respiratory failure complication: hypoxia Qualified Code(s): J96.21 - Acute and chronic respiratory failure with hypoxia (7) Chronic venous insufficiency Current visit: Yes Status: Acute Clear drainage seeping from BLE, recommend cleansing legs daily with mild soap and water. Apply abd pads to anterior tibial regions of BLE with kerlix from toes to tibia BID. (8) Onychomycosis Current visit: Yes Status: Acute Toe nails #3 through #5 right and #2 through #5 left are thick, elongated and mycotic. Recommend diabetic foot care in Podiatry clinic. History of Present Illness HPI: Mr. Diaz is a 71 year old male 218 on 04/06/2017 for shortness of breath. Patient has a medical history significant for diabetes mellitus with neuropathy , CHF, COPD, hyperlipidemia, atrial fibrillation. Podiatry was consulted for discoloration of the left great toe. Patient states 3 days ago he was sitting on his roller walker and it collapsed. Patient states the next day he he was told that his left great toe was discolored. Patient states his feet are numb and has no complaints of pain. Patient states he has had bilateral lower extremity swelling with drainage that has been managed by his PCP in [place]. Patient has an ulceration to both feet. Patient states the ulcer to the right heel started after he bumped his heel on a chair. Patient states he is not sure how the ulcer occurred to the plantar aspect of the left foot. Patient denies any surgery to his feet in the past. He states he has wounds to his feet in the past. He states he does not see a Workers Compensation Claims Specialist. Patient states a few weeks ago his left great toe nail fell off along with toe nail #1 and #2 of the right foot. No c/o fever or chills. Past Med Surg Social Fam HX - Past Medical History Medical history: arthritis, atrial fibrillation, CHF, COPD, diabetes, hyperlipidemia, hypertension Psychiatric history: no psych history - Past Surgical History Surgical History: orthopedic, other, pacemaker/AICD - Social History Smoking Status: Former smoker Smokeless Tobacco Status: No Alcohol use: none Drug use: marijuana - Family History Father Hx Family Cardiac Disorders: Yes (Quadruple Bypass) Mother Family Member Ethnicity: Non- Living Status: Medications and Allergies Amiodarone [Cordarone] 200 mg PO DAILY 04/28/15 [History] Aspirin 81 mg PO DAILY 04/28/15 [History] Atorvastatin [Lipitor] 40 mg PO HS 04/28/15 [History] Citalopram [CeleXA] 40 mg PO DAILY 04/28/15 [History] Docosahexanoic Acid/Epa [Fish Oil Concentrate Softgel] 1 each PO DAILY 04/28/15 [History] Ferrous Sulfate 325 mg PO BIDWM 04/28/15 [History] Garlic 1,000 mg PO DAILY 04/28/15 [History] GlipiZIDE XL (24 HR) [Glucotrol XL] 20 mg PO QAM 04/28/15 [History] Insulin DETEMIR [Levemir] 70 units SQ BID 04/28/15 [History] SitaGLIPtin [Januvia] 100 mg PO DAILY 04/28/15 [History] Albuterol Sulfate [Proair Hfa] 2 puff IH Q4H PRN 01/25/17 [History] Budesonide/Formoterol 160/4.5 [Symbicort 160/4.5] 2 puff IH BIDR 01/25/17 [ History] Metoprolol Succinate 200 mg PO DAILY 01/25/17 [History] Oxygen 2 l NS CONT 02/03/17 [History] Furosemide [Lasix] 60 mg PO BID #180 tab 02/08/17 [Rx] Dextrose Gel [Gluctose] 30 gm PO ONCE PRN #0 gel..gram. 02/23/17 [Rx] Glucagon, Human Recombinant [Glucagen] 1 mg IM ONCE PRN #0 vial 02/23/17 [Rx] Nicotine Patch [Nicoderm] 21 mg TD DAILY #30 patch.td24 02/23/17 [Rx] Nitroglycerin 0.4 mg SL Q5MIN PRN #0 tab.subl 02/23/17 [Rx] Potassium Chloride 8 meq PO DAILY tablet.er 02/23/17 [Rx] Tiotropium [Spiriva] 18 mcg IH 0800 #30 inh 02/23/17 [Rx] metFORMIN [Glucophage] 1,000 mg PO BIDWM tablet 02/23/17 [Rx] Diltiazem HCl [Diltiazem 24Hr Cd] 180 mg PO BID 04/06/17 [History] Insulin LISPRO [HumaLOG] 4 - 16 units SQ TIDAC 04/06/17 [History] Meclizine HCl [Verticalm] 25 - 50 mg PO Q4H PRN 04/06/17 [History] Rivaroxaban [Xarelto] 20 mg PO DAILY 04/06/17 [History] Allergies bupropion [From Wellbutrin] Allergy (Verified 04/28/15 08:53) Difficulty Breathing codeine Allergy (Verified 04/28/15 08:53) Difficulty Breathing Opioids-Meperidine and Related [Opioids-Meperidine & Related] Allergy (Verified 04/28/15 08:53) Difficulty Breathing All Systems Reviewed: A 10-system review of systems was performed and is negative for pertinent findings except as documented above in the HPI. Physical Exam - Constitutional Vitals: Temp Pulse Resp BP Pulse Ox 97.9 F 74 16 125/67 95 04/07/17 06:59 04/07/17 06:59 04/07/17 08:12 04/07/17 06:59 04/07/17 08:12 General appearance: obese - Vascular Capillary Refill: less than 3 seconds (pedal pulses palpable.) - Ankle & Foot Exam: General appearance: alert awake oriented X 3. Calm and pleasant, no acute distress.. Vascular: Pedal pulses +2/4 DP/PT , Edema graded at 1+/4, Skin Temperature warm , capillary refill time is immediate to digits. Neurologic: Sensation diminished with light touch to both feet. Integument: hemosiderin staining to BLE and feet. Clear fluid seeping from anterior tibial region of BLE. Large blood filled blister to the left great toe encompassing the distal phalanx sparing the nail bed. Ulceration #1 to the left foot plantar aspect measuring 1cm in length x 1 cm in width x 0.3 cm in depth with 100% yellow slough, light periwound erythema, no streaking, no pus, no odor, no probe to bone, no fluctuance, no sinus tracts, no tunneling, no warmth. Ulceration #2 to the right posterior heel lateral aspect measuring 1cm in length x 1 cm in width x 0.3 cm in depth with 100% yellow slough, light periwound erythema, no streaking, no pus, no odor, no probe to bone, no fluctuance, no sinus tracts, no tunneling, no warmth. Dried scab to the left lateral foot and dorsal aspect of toe #2 left foot. No nails present to toe #1 bilaterally and #2 right foot. All other toe nails are thick, elongated and mycotic. Results - Labs Result Diagrams: 04/07/17 04:06 04/07/17 04:06 Labs: Abnormal lab results RBC 3.65 M/mcL (4.19-5.50) L 04/07/17 04:06 Hgb 9.5 g/dL (12.9-16.9) L 04/07/17 04:06 Hct 32.7 % (37.5-50.1) L 04/07/17 04:06 MCH 26.0 pg (28.0-33.3) L 04/07/17 04:06 MCHC 29.1 g/dL (31.6-35.5) L 04/07/17 04:06 RDW 22.5 % (11.5-14.5) H 04/07/17 04:06 Plt Count 452 K/mcL (140-400) H 04/07/17 04:06 Platelet Estimate Slight increase (Normal) H 04/06/17 16:49 Hypochromasia Present (Not Present) A 04/06/17 16:49 Anisocytosis 3+ (Not Present) A 04/06/17 16:49 PT 25.6 Seconds (9.4-12.1) H 04/06/17 16:47 APTT 37.6 Seconds (26.0-36.0) H 04/06/17 16:47 Potassium 2.9 mEq/L (3.5-4.5) L 04/07/17 04:06 Carbon Dioxide 31 mEq/L (19-29) H 04/07/17 04:06 BUN 32 mg/dL (8-26) H 04/07/17 04:06 BUN/Creatinine Ratio 30 (6-26) H 04/07/17 04:06 Glucose 63 mg/dL (70-99) L 04/07/17 04:06 POC Glucose 157 (58-89) H 04/06/17 21:56 Calculated Osmolality 301 (280-300) H 04/07/17 04:06 Lactic Acid 2.4 mmol/L (0.5-2.2) H 04/06/17 18:52 B-Natriuretic Peptide 667 pg/mL (0-100) H 04/06/17 16:49 H & H 04/07/17 Range/Units 04:06 Hgb 9.5 L (12.9-16.9) g/dL Hct 32.7 L (37.5-50.1) % All other labs normal. Consult Discharge Plan - Plan Referrals: NO,PCP [Primary Care Provider] -
--- NOTE | 2017-04-07 18:08 | Procedure Note ---
Date of procedure: 04/07/17 Pre-op diagnosis: Blister of left great toe Post-op diagnosis: other (superficial wound to the left great toe.) Procedure: Bullous lesion of left great toe cleansed with alcohol x 3, small open area made to the most dependent aspect of the lesion to the plantar aspect with a sterile tissue nipper. Moderate amount of bloody drainage expressed. Remaining portion of bullous lesion deroofed with tissue nipper, no complications. Base of wound is red, no active bleeding, no pus, no odor, no exposed bone. Toe irrigated with saline, adaptic applied with 4x4 gauze and kerlix. Patient tolerated procedure well, no complaints of pain. Wound care orders written and will f/u with patient tomorrow. Surgeon: Reese Christian Pathology: none sent Condition: stable Disposition: no change
[2017-04-08 06:26] LABS: Basophils # 0.1 K/mcL (0.0-0.2); Basophils % 0.5 %; Eosinophils # 0.3 K/mcL (0.0-0.6); Eosinophils % 2.8 %; Hematocrit 31.9 % (37.5-50.1); Hemoglobin 9.5 g/dL (12.9-16.9); Immature Granulocytes % 0.3 % (0-4); Lymphocytes # 0.7 K/mcL (0.6-4.6); Lymphocytes % 6.7 %; Mean Corpuscular HGB Conc 29.8 g/dL (31.6-35.5); Mean Corpuscular Hemoglobin 26.4 pg (28.0-33.3); Mean Corpuscular Volume 88.6 fL (83.0-100.0); Mean Platelet Volume 9.4 fL (9.4-12.4); Monocytes # 1.2 K/mcL (0.0-1.3); Monocytes % 11.6 %; Neutrophils # 8.1 K/mcL (1.6-8.9); Platelet Count 438 K/mcL (140-400); Red Cell Distribution Width 22.5 % (11.5-14.5); Segmented Neutrophils % 78.1 %
[2017-04-08 06:42] LABS: BUN/Creatinine Ratio 31 (6-26); Blood Urea Nitrogen 40 mg/dL (8-26); Calcium 8.4 mg/dL (8.6-10.8); Carbon Dioxide 25 mEq/L (19-29); Chloride 104 mEq/L (98-109); Glucose 159 mg/dL (70-99); Magnesium 2.1 mg/dL (1.6-2.6); Osmolality,Calculated 301 (280-300); Phosphorous 4.6 mg/dL (2.3-4.7); Potassium 3.7 mEq/L (3.5-4.5); Sodium 139 mEq/L (136-145); eGFR For African Americans > 60 (> 60); eGFR For Non-African Americans 55 (> 60)
[2017-04-08] MEDS: Budesonide/Formoterol 160/4.5 MDI IH SCH ×2 (08:23→22:39)
[2017-04-08] MEDS: Tiotropium 18 MCG inhalation IH SCH (08:23)
[2017-04-08] MEDS: *HR* Rivaroxaban 10 MG TABLET PO SCH (08:37)
[2017-04-08] MEDS: Diltiazem CD (24hr) 180 MG CAPSULE PO SCH ×2 (08:38→21:51)
[2017-04-08] MEDS: *HR* Amiodarone 200 MG TABLET PO SCH (08:38)
[2017-04-08] MEDS: Aspirin 81 MG TAB.CHEW PO SCH (08:38)
[2017-04-08] MEDS: Metoprolol XL (24 HR) Succ 50 MG TAB.ER.24H PO SCH (08:38)
[2017-04-08] MEDS: Insulin DETEMIR 100 UNIT/ML X5UNITS SQ SCH ×2 (08:39→21:52)
[2017-04-08] MEDS: Furosemide 40 MG/4 ML VIAL IVP SCH ×2 (08:40→16:49)
[2017-04-08] MEDS: Insulin LISPRO 300 UNITS/3 ML VIAL SQ SCH ×4 (08:43→21:50)
--- NOTE | 2017-04-08 12:42 | Internal Med Progress Note ---
Date of Encounter: 04/08/17 Time of Encounter: 12:40 - Assessment and plan (1) Acute exacerbation of CHF (congestive heart failure) Current Visit: No Status: Acute Assessment and plan: Respiratory status improved As per patient he is back to his baseline continue O2 supplementation continue IV diuretics monitor I/Os fluid restriction diet monitor daily weight bipap support as needed Qualifiers: Congestive heart failure type: combined Qualified Code(s): I50.43 - Acute on chronic combined systolic (congestive) and diastolic (congestive) heart failure (2) Foot ulcer Current Visit: Yes Status: Acute Assessment and plan: history of diabetes and diabetic foot ulcers s/p trauma to left big toe s/p I&D by podiatry, consultation requested continue wound care as per podiatry likely d/c in am if cleared by podiatry Qualifiers: Laterality: left Non-pressure ulcer stage: unspecified non-pressure ulcer stage Qualified Code(s): L97.529 - Non-pressure chronic ulcer of other part of left foot with unspecified severity (3) Afib Current Visit: No Status: Chronic Assessment and plan: Rate controlled with Amiodarone anticoagulated with Xarelto Qualifiers: Atrial fibrillation type: paroxysmal Qualified Code(s): I48.0 - Paroxysmal atrial fibrillation (4) COPD (chronic obstructive pulmonary disease) Current Visit: No Status: Chronic Assessment and plan: not in acute exacerbation continue bronchodilator support and O2 supplementation as needed Qualifiers: COPD type: unspecified COPD Qualified Code(s): J44.9 - Chronic obstructive pulmonary disease, unspecified (5) Hypokalemia Current Visit: No Status: Resolved (6) Sleep apnea with use of continuous positive airway pressure (CPAP) Current Visit: No Status: Chronic (7) Type 2 diabetes mellitus Current Visit: No Status: Chronic Assessment and plan: continue home insulin dosing increased to high dose ss insulin algorithm as needed monitor FS and BG as needed Qualifiers: Diabetes mellitus complication status: with unspecified complications Diabetes mellitus intermediate teacher insulin use: with intermediate teacher use Qualified Code(s) : E11.8 - Type 2 diabetes mellitus with unspecified complications; Z79.4 - terminal operator (current) use of insulin (8) DVT prophylaxis Current Visit: Yes Status: Acute Assessment and plan: anticoagulated with Xarelto (9) Morbid obesity with BMI of 45.0-49.9, adult Current Visit: Yes Status: Chronic - Subjective Interval history: Pt seen and examined at bedside. Sitting in bed and eating lunch. Reports of feeling better at this time. s/p I&D of the left great toe blister by surgery. Foot wrapped with dressing and patient denies any pain at this time. Patient reports of having home health prior to hospitalization and states he walks well with a walker. - Constitutional Vitals: Temp Pulse Resp BP Pulse Ox 97.3 F L 104 16 126/79 93 04/08/17 11:37 04/08/17 11:37 04/08/17 11:37 04/08/17 11:37 04/08/17 11:37 General appearance: Present: A&O X 3, morbidly obese, no acute distress, answers questions appropriately - Head Head exam: Present: atraumatic, normocephalic - Eye Eye exam: Present: conjuntiva pink, sclera anicteric - Respiratory Respiratory exam: Absent: respiratory distress, wheezes (diminished breath sounds on bilateral bases) - Cardiovascular Cardiovascular exam: Present: RRR, +S1, +S2. Absent: diastolic murmur, gallop, rubs, systolic murmur - GI/Abdominal GI/Abdominal exam: Present: distended (obese), normal bowel sounds, soft, no peritoneal signs. Absent: tenderness - Extremities Exam Extremities exam: Present: warm, radial pulses palpable and symetrical ( bilateral lower extremities wrapped in dressing, left foot dressing intact ) - Neurological Exam Neurological exam: Present: alert, oriented X3 - Psychiatric Psychiatric exam: Present: normal affect, normal mood Internal Medicine: Result - Labs CBC & Chem 7: 04/08/17 05:45 04/08/17 05:45 Labs: Short CBC 04/08/17 Range/Units 05:45 WBC 10.4 (4.3-11.1) K/mcL Hgb 9.5 L (12.9-16.9) g/dL Hct 31.9 L (37.5-50.1) % Plt Count 438 H (140-400) K/mcL Neutrophils # 8.1 (1.6-8.9) K/mcL BMP 04/08/17 05:45 Sodium 139 Potassium 3.7 Chloride 104 Carbon Dioxide 25 BUN 40 H Creatinine 1.29 H Glucose 159 H Calcium 8.4 L - ABG Interpretation ABG results: PT/INR, D-dimer PT 25.6 Seconds (9.4-12.1) H 04/06/17 16:47 Consult Discharge Plan - Plan Referrals: NONE,PCP [Primary Care Provider] -
--- NOTE | 2017-04-08 16:52 | Podiatry Progress Note ---
Date of Encounter: 04/08/17 Time of Encounter: 16:00 - Assessment and Plan (1) Foot ulcer Current Visit: Yes Status: Acute 04/07/17 DFU to the plantar aspect of the left foot and posterior lateral aspect of the right heel. 100% yellow slough to both ulcerations, no probe to bone, no evidence of bacterial infection. Wound care ordered for Santyl ointment to both ulcerations with sterile 4x4 gauze and kerlix. Xrays obtained of both feet and no evidence of bony erosion or OM. 04/08/17 Continue treatment as listed above Patient continues to complain of pain to right heel Has foot lifted on couch cushion in bed Will order prevalon (santiago) boot to be placed to foot for protection Please place aleven dressing as well as santyl as prescribed Call with any issues Continue with dressing changes to left great toe, please do not allow dressings to become saturated due to maceration of skin Please apply skin prep to all areas of macerated skin Will continue to follow. Qualifiers: Laterality: left Non-pressure ulcer stage: unspecified non-pressure ulcer stage Qualified Code(s): L97.529 - Non-pressure chronic ulcer of other part of left foot with unspecified severity (2) Blister of toe of left foot Current Visit: Yes Status: Acute 04/07/2017 Large blood filled blister encompassing the distal phalanx of the left great toe sparing the nail bed. Pedal pulses palpable. Xrays obtained and no evidence of bony erosion or OM. Plan will be to drain blister and local wound care. Patient will require a post op surgical shoe. 04/07/17 Dressing removed. Appears to be healing without issue. There is no clinical signs of infection. Foot continues to weep a large amount. Applied triple antibiotic ointment, 4x4 and kerlex Ordered post op shoe Continue to monitor for signs of infection or poor healing Apply skin prep to any macerated areas, DO NOT APPLY TO EXPOSED OPEN TISSUE Will need to be seen in clinic 1 week after discharge. Qualifiers: Encounter type: initial encounter Qualified Code(s): S90.425A - Blister ( nonthermal), left lesser toe(s), initial encounter Subjective Interval history: Mr. Diaz is a 71 year old male 218 admitted for shortness of breath. He was seen by JENNIFER hernandes and had debridement of a blood filled blister of the left great toe on 04/07/17. Patient has a medical history significant for diabetes mellitus with neuropathy, CHF, COPD, hyperlipidemia, atrial fibrillation. Patient also has a known ulceration of the right heel, patient states he hit it on a table a few days before coming to the hospital. Upon arrival patient is resting comfortably with cpap on. Patient states he is not having any pain. Dressings are intact to LLE and patient is resting in bed with RLE elevated on a couch cushion. Patient states his right heel is painful with palpation but otherwise is having no issues. Patient states he can tell his legs are continuing to drain a lot. Patient denies any fevers, chills, n/v or flu like symptoms. Objective - Vital Signs Vital Signs: Vital Signs Temp Pulse Resp BP Pulse Ox 04/08/17 15:32 96.3 F L 74 16 104/65 94 04/08/17 11:37 97.3 F L 104 16 126/79 93 04/08/17 08:23 16 96 04/08/17 07:49 97.5 F L 79 16 102/89 94 04/08/17 03:43 97.7 F 80 14 112/86 98 04/07/17 23:58 15 98 04/07/17 20:30 16 90 Intake and Output 04/08/17 04/08/17 04/08/17 07:59 15:59 23:59 Intake Total 1080 / 1080 Output Total 1150 / 1150 Balance -1150 / -1150 1080 / 1080 Intake: Oral 1080 / 1080 Output: Catheter 1150 / 1150 Other: Meal Lunch Percent of Meal Consumed 100% Weight 155.9 kg Blood Glucose* 207 199 371 Patient Weight 04/08/17 23:59 Weight 155.9 kg - Exam Exam: Awake alert and oriented Pulses faint but palpable DP/PT Edema is +2/4 to BLE and BLE are weeping a serous fluid, dressings to BLE are saturated Muscle strength 4/5 and equal bilaterally There is minimal sensation to moderate touch No calf pain with manual compression Cap refill <3 seconds Patient is s/p debridement of left toe blood blister. Upon removal of dressing healthy granulation tissue is noted to the toe. There is serous drainage to foot surrounding toe which is causing maceration to webspace between toes #1 and #2 and to medial aspect of toe #2. Cap refill of debrided toe is immediate. There is no pain, no drainage, no odor, no warmth. No appearance of infection at this time There is a 0.3cmx0.3cmx0.1cm area of ulceration to right here- the bed of the ulceration is 100% covered by yellow fibrous tissue. Area is tender to palpation but there is no fluctuance, erythema, edema or appearance of infection. There is no drainage. No warmth. area is not boggy. - Lab Result Diagrams: 04/11/17 05:46 04/11/17 05:46 Labs: Abnormal lab results RBC 3.60 M/mcL (4.19-5.50) L 04/08/17 05:45 Hgb 9.5 g/dL (12.9-16.9) L 04/08/17 05:45 Hct 31.9 % (37.5-50.1) L 04/08/17 05:45 MCH 26.4 pg (28.0-33.3) L 04/08/17 05:45 MCHC 29.8 g/dL (31.6-35.5) L 04/08/17 05:45 RDW 22.5 % (11.5-14.5) H 04/08/17 05:45 Plt Count 438 K/mcL (140-400) H 04/08/17 05:45 Platelet Estimate Slight increase (Normal) H 04/06/17 16:49 Hypochromasia Present (Not Present) A 04/06/17 16:49 Anisocytosis 3+ (Not Present) A 04/06/17 16:49 PT 25.6 Seconds (9.4-12.1) H 04/06/17 16:47 APTT 37.6 Seconds (26.0-36.0) H 04/06/17 16:47 BUN 40 mg/dL (8-26) H 04/08/17 05:45 Creatinine 1.29 mg/dL (0.72-1.25) H 04/08/17 05:45 Est GFR (Non-Af Amer) 55 (> 60) L 04/08/17 05:45 BUN/Creatinine Ratio 31 (6-26) H 04/08/17 05:45 Glucose 159 mg/dL (70-99) H 04/08/17 05:45 POC Glucose 250 (58-89) H 04/07/17 20:34 Calculated Osmolality 301 (280-300) H 04/08/17 05:45 Lactic Acid 2.4 mmol/L (0.5-2.2) H 04/06/17 18:52 Calcium 8.4 mg/dL (8.6-10.8) L 04/08/17 05:45 B-Natriuretic Peptide 667 pg/mL (0-100) H 04/06/17 16:49 Consult Discharge Plan - Plan Referrals: NONE,PCP [Primary Care Provider] -
[2017-04-09 06:22] LABS: Basophils # 0.1 K/mcL (0.0-0.2); Basophils % 0.4 %; Eosinophils # 0.3 K/mcL (0.0-0.6); Eosinophils % 2.3 %; Hematocrit 33.8 % (37.5-50.1); Immature Granulocytes % 0.3 % (0-4); Immature Platelets 2.4 % (1.1-6.1); Lymphocytes # 0.8 K/mcL (0.6-4.6); Lymphocytes % 6.3 %; Mean Corpuscular HGB Conc 29.6 g/dL (31.6-35.5); Mean Corpuscular Hemoglobin 26.7 pg (28.0-33.3); Mean Corpuscular Volume 90.1 fL (83.0-100.0); Mean Platelet Volume 9.4 fL (9.4-12.4); Monocytes # 1.6 K/mcL (0.0-1.3); Monocytes % 12.7 %; Platelet Count 502 K/mcL (140-400); Red Blood Count 3.75 M/mcL (4.19-5.50); Red Cell Distribution Width 22.8 % (11.5-14.5)
[2017-04-09 06:35] LABS: BUN/Creatinine Ratio 33 (6-26); Blood Urea Nitrogen 45 mg/dL (8-26); Calcium 8.4 mg/dL (8.6-10.8); Carbon Dioxide 26 mEq/L (19-29); Chloride 102 mEq/L (98-109); Glucose 128 mg/dL (70-99); Magnesium 2.5 mg/dL (1.6-2.6); Osmolality,Calculated 295 (280-300); Phosphorous 4.3 mg/dL (2.3-4.7); Potassium 3.9 mEq/L (3.5-4.5); eGFR For African Americans > 60 (> 60); eGFR For Non-African Americans 51 (> 60)
[2017-04-09 06:42] LABS: Sodium 136 mEq/L (136-145)
[2017-04-09] MEDS: *HR* Rivaroxaban 10 MG TABLET PO SCH (07:43)
[2017-04-09] MEDS: Aspirin 81 MG TAB.CHEW PO SCH (07:43)
[2017-04-09] MEDS: *HR* Amiodarone 200 MG TABLET PO SCH (07:43)
[2017-04-09] MEDS: Diltiazem CD (24hr) 180 MG CAPSULE PO SCH ×2 (07:43→22:08)
[2017-04-09] MEDS: Metoprolol XL (24 HR) Succ 50 MG TAB.ER.24H PO SCH (07:43)
[2017-04-09] MEDS: Furosemide 40 MG/4 ML VIAL IVP SCH (07:44)
[2017-04-09] MEDS: Insulin LISPRO 300 UNITS/3 ML VIAL SQ SCH ×4 (07:46→22:11)
[2017-04-09] MEDS: Budesonide/Formoterol 160/4.5 MDI IH SCH ×2 (08:01→20:23)
[2017-04-09] MEDS: Tiotropium 18 MCG inhalation IH SCH (08:01)
--- NOTE | 2017-04-09 10:03 | Internal Med Progress Note ---
Date of Encounter: 04/09/17 Time of Encounter: 09:20 - Assessment and plan (1) Acute exacerbation of CHF (congestive heart failure) Current Visit: No Status: Acute Assessment and plan: Respiratory status improved As per patient he is back to his baseline continue O2 supplementation Will switch to home dose of Lasix this evening (Lasix 60mg PO BID) monitor I/Os fluid restriction diet monitor daily weight bipap support as needed Unclear of patient's baseline O2, will closely monitor Given persistent need for high O2 demand along with worsening renal function, will monitor overnight. If clinically improves, likely d/c in am Qualifiers: Congestive heart failure type: combined Qualified Code(s): I50.43 - Acute on chronic combined systolic (congestive) and diastolic (congestive) heart failure (2) Foot ulcer Current Visit: Yes Status: Acute Assessment and plan: history of diabetes and diabetic foot ulcers s/p trauma to left big toe s/p I&D by podiatry, consultation requested continue wound care as per podiatry Qualifiers: Laterality: left Non-pressure ulcer stage: unspecified non-pressure ulcer stage Qualified Code(s): L97.529 - Non-pressure chronic ulcer of other part of left foot with unspecified severity (3) Afib Current Visit: No Status: Chronic Assessment and plan: Rate controlled with Amiodarone anticoagulated with Xarelto Qualifiers: Atrial fibrillation type: paroxysmal Qualified Code(s): I48.0 - Paroxysmal atrial fibrillation (4) COPD (chronic obstructive pulmonary disease) Current Visit: No Status: Chronic Assessment and plan: not in acute exacerbation continue bronchodilator support and O2 supplementation as needed Qualifiers: COPD type: unspecified COPD Qualified Code(s): J44.9 - Chronic obstructive pulmonary disease, unspecified (5) Hypokalemia Current Visit: No Status: Resolved (6) Sleep apnea with use of continuous positive airway pressure (CPAP) Current Visit: No Status: Chronic (7) Type 2 diabetes mellitus Current Visit: No Status: Chronic Assessment and plan: continue home insulin dosing increased to high dose ss insulin algorithm as needed monitor FS and BG as needed Qualifiers: Diabetes mellitus complication status: with unspecified complications Diabetes mellitus skilled nursing insulin use: with skilled nursing use Qualified Code(s) : E11.8 - Type 2 diabetes mellitus with unspecified complications; Z79.4 - shelter (current) use of insulin (8) DVT prophylaxis Current Visit: Yes Status: Acute Assessment and plan: anticoagulated with Xarelto (9) Morbid obesity with BMI of 45.0-49.9, adult Current Visit: Yes Status: Chronic (10) [id number] kidney injury Current Visit: Yes Status: Acute Assessment and plan: Likely secondary to diuretic support will d/c IV lasix and restart home dose of lasix will continue to closely monitor Qualifiers: Acute renal failure type: unspecified Chronic kidney disease stage: stage 3 (moderate) Qualified Code(s): N17.9 - Acute kidney failure, unspecified; N18.3 - Chronic kidney disease, stage 3 (moderate) - Subjective Interval history: Pt seen and examined at bedside. Sitting in bed and eating breakfast. Reports of feeling better. Respiratory status improving, does not recall how much O2 he uses at home. Pain controlled at this time. - Constitutional Vitals: Temp Pulse Resp BP Pulse Ox 98.6 F 71 16 115/76 95 04/09/17 07:16 04/09/17 07:16 04/09/17 08:01 04/09/17 07:16 04/09/17 08:01 General appearance: Present: A&O X 3, morbidly obese, no acute distress, answers questions appropriately - Head Head exam: Present: atraumatic, normocephalic - Eye Eye exam: Present: conjuntiva pink, sclera anicteric - Respiratory Respiratory exam: Absent: respiratory distress, wheezes - Cardiovascular Cardiovascular exam: Present: RRR, +S1, +S2. Absent: diastolic murmur, gallop, rubs, systolic murmur - GI/Abdominal GI/Abdominal exam: Present: distended (obese), normal bowel sounds, soft, no peritoneal signs. Absent: tenderness - Extremities Exam Extremities exam: Present: pedal edema, warm, radial pulses palpable and symetrical. Absent: calf tenderness (b/l LE wrapped in dressing) - Neurological Exam Neurological exam: Present: alert, oriented X3 - Psychiatric Psychiatric exam: Present: normal affect, normal mood Internal Medicine: Result - Labs CBC & Chem 7: 04/09/17 05:23 04/09/17 05:23 Labs: Short CBC 04/09/17 Range/Units 05:23 WBC 12.8 H (4.3-11.1) K/mcL Hgb 10.0 L (12.9-16.9) g/dL Hct 33.8 L (37.5-50.1) % Plt Count 502 H (140-400) K/mcL Neutrophils # 10.0 H (1.6-8.9) K/mcL BMP 04/09/17 05:23 Sodium 136 Potassium 3.9 Chloride 102 Carbon Dioxide 26 BUN 45 H Creatinine 1.38 H Glucose 128 H Calcium 8.4 L - ABG Interpretation ABG results: PT/INR, D-dimer PT 25.6 Seconds (9.4-12.1) H 04/06/17 16:47 Consult Discharge Plan - Plan Referrals: NONE,PCP [Primary Care Provider] -
[2017-04-09] MEDS: Insulin DETEMIR 100 UNIT/ML X5UNITS SQ SCH ×2 (12:40→22:57)
[2017-04-10 04:46] LABS: Basophils # 0.1 K/mcL (0.0-0.2); Basophils % 0.5 %; Eosinophils # 0.2 K/mcL (0.0-0.6); Eosinophils % 1.7 %; Hematocrit 32.6 % (37.5-50.1); Hemoglobin 9.6 g/dL (12.9-16.9); Immature Granulocytes % 0.5 % (0-4); Lymphocytes # 0.6 K/mcL (0.6-4.6); Lymphocytes % 4.7 %; Mean Corpuscular HGB Conc 29.4 g/dL (31.6-35.5); Mean Corpuscular Hemoglobin 26.2 pg (28.0-33.3); Mean Corpuscular Volume 89.1 fL (83.0-100.0); Mean Platelet Volume 9.1 fL (9.4-12.4); Monocytes # 1.4 K/mcL (0.0-1.3); Monocytes % 10.4 %; Neutrophils # 10.9 K/mcL (1.6-8.9); Platelet Count 469 K/mcL (140-400); Red Blood Count 3.66 M/mcL (4.19-5.50); Red Cell Distribution Width 22.2 % (11.5-14.5); Segmented Neutrophils % 82.2 %
[2017-04-10 04:58] LABS: BUN/Creatinine Ratio 34 (6-26); Blood Urea Nitrogen 47 mg/dL (8-26); Calcium 8.4 mg/dL (8.6-10.8); Carbon Dioxide 26 mEq/L (19-29); Chloride 100 mEq/L (98-109); Glucose 163 mg/dL (70-99); Magnesium 2.5 mg/dL (1.6-2.6); Osmolality,Calculated 294 (280-300); Phosphorous 4.9 mg/dL (2.3-4.7); Sodium 134 mEq/L (136-145); eGFR For African Americans > 60 (> 60); eGFR For Non-African Americans 50 (> 60)
[2017-04-10 05:06] LABS: Potassium 4.1 mEq/L (3.5-4.5)
[2017-04-10] MEDS: Budesonide/Formoterol 160/4.5 MDI IH SCH ×2 (08:00→22:32)
[2017-04-10] MEDS: Tiotropium 18 MCG inhalation IH SCH (08:01)
[2017-04-10] MEDS: Insulin LISPRO 300 UNITS/3 ML VIAL SQ SCH ×4 (10:40→21:29)
[2017-04-10] MEDS: Metoprolol XL (24 HR) Succ 50 MG TAB.ER.24H PO SCH (10:52)
[2017-04-10] MEDS: *HR* Rivaroxaban 10 MG TABLET PO SCH (10:53)
[2017-04-10] MEDS: *HR* Amiodarone 200 MG TABLET PO SCH (10:53)
[2017-04-10] MEDS: Insulin DETEMIR 100 UNIT/ML X5UNITS SQ SCH ×2 (10:53→21:31)
[2017-04-10] MEDS: Aspirin 81 MG TAB.CHEW PO SCH (10:53)
[2017-04-10] MEDS: Diltiazem CD (24hr) 180 MG CAPSULE PO SCH ×2 (10:53→21:24)
[2017-04-10] MEDS ORDERED: Vancomycin 1,000 MG in D5% in Water 250 ML IVPB SCH (12:43)
--- NOTE | 2017-04-10 13:29 | Internal Med Progress Note ---
Date of Encounter: 04/10/17 Time of Encounter: 13:05 - Assessment and plan (1) Acute exacerbation of CHF (congestive heart failure) Current Visit: No Status: Acute Assessment and plan: Respiratory status improved As per patient he is back to his baseline continue O2 supplementation Will switch to home dose of Lasix this evening (Lasix 60mg PO BID) will give one time dose of Lasix 40mg IV in addition to the PO lasix given today 's clinical exam monitor I/Os fluid restriction diet monitor daily weight bipap support as needed Unclear of patient's baseline O2, will closely monitor Given persistent need for high O2 demand along with worsening renal function, will monitor overnight. If clinically improves, likely d/c in am Qualifiers: Congestive heart failure type: combined Qualified Code(s): I50.43 - Acute on chronic combined systolic (congestive) and diastolic (congestive) heart failure (2) Foot ulcer Current Visit: Yes Status: Acute Assessment and plan: history of diabetes and diabetic foot ulcers s/p trauma to left big toe s/p I&D by podiatry, consultation requested continue wound care as per podiatry concern for infectious etiology, given persistent drainage from left foot, will start empiric IV abx and closely monitor Qualifiers: Laterality: left Non-pressure ulcer stage: unspecified non-pressure ulcer stage Qualified Code(s): L97.529 - Non-pressure chronic ulcer of other part of left foot with unspecified severity (3) Afib Current Visit: No Status: Chronic Assessment and plan: Rate controlled with Amiodarone anticoagulated with Xarelto Qualifiers: Atrial fibrillation type: paroxysmal Qualified Code(s): I48.0 - Paroxysmal atrial fibrillation (4) COPD (chronic obstructive pulmonary disease) Current Visit: No Status: Chronic Assessment and plan: not in acute exacerbation continue bronchodilator support and O2 supplementation as needed Qualifiers: COPD type: unspecified COPD Qualified Code(s): J44.9 - Chronic obstructive pulmonary disease, unspecified (5) Hypokalemia Current Visit: No Status: Resolved (6) Sleep apnea with use of continuous positive airway pressure (CPAP) Current Visit: No Status: Chronic (7) Type 2 diabetes mellitus Current Visit: No Status: Chronic Assessment and plan: continue home insulin dosing high dose ss insulin algorithm as needed monitor FS and BG as needed Qualifiers: Diabetes mellitus complication status: with unspecified complications Diabetes 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 dedicated intermodal truck driver insulin use: with dedicated intermodal truck driver use Qualified Code(s) : E11.8 - Type 2 diabetes mellitus with unspecified complications; Z79.4 - intermediate manager (current) use of insulin (8) DVT prophylaxis Current Visit: Yes Status: Acute Assessment and plan: anticoagulated with Xarelto (9) Morbid obesity with BMI of 45.0-49.9, adult Current Visit: Yes Status: Chronic (10) [id number] kidney injury Current Visit: Yes Status: Acute Assessment and plan: Likely secondary to diuretic support will continue to closely monitor Qualifiers: Acute renal failure type: unspecified Chronic kidney disease stage: stage 3 (moderate) Qualified Code(s): N17.9 - Acute kidney failure, unspecified; N18.3 - Chronic kidney disease, stage 3 (moderate) - Subjective Interval history: Pt seen and examined at bedside. Sitting in bed and states his breathing is a bit worst compared to previous day. states even with him turning in bed, he gets short of breath. Reports of left great toe still draining. Noted to have worsening leukocytosis, concern for infectious etiology from the foot ulcer. Will start empiric IV abx at this time - Constitutional Vitals: Temp Pulse Resp BP Pulse Ox 98.9 F 87 20 131/81 98 04/10/17 07:23 04/10/17 11:33 04/10/17 11:33 04/10/17 11:33 04/10/17 11:33 General appearance: Present: A&O X 3, morbidly obese, no acute distress, answers questions appropriately - Head Head exam: Present: atraumatic, normocephalic - Eye Eye exam: Present: normal appearance, conjuntiva pink, sclera anicteric - Respiratory Respiratory exam: Absent: respiratory distress, wheezes (dimished breath sounds and bibasilar crackles ) - Cardiovascular Cardiovascular exam: Present: RRR, +S1, +S2. Absent: diastolic murmur, gallop, rubs, systolic murmur - GI/Abdominal GI/Abdominal exam: Present: normal bowel sounds, soft. Absent: tenderness - Extremities Exam Extremities exam: Present: pedal edema (b/l LE wrapped in dressing), warm, radial pulses palpable and symetrical - Neurological Exam Neurological exam: Present: alert, oriented X3 - Psychiatric Psychiatric exam: Present: normal affect, normal mood Internal Medicine: Result - Labs CBC & Chem 7: 04/10/17 04:31 04/10/17 04:31 Labs: Short CBC 04/10/17 Range/Units 04:31 WBC 13.3 H (4.3-11.1) K/mcL Hgb 9.6 L (12.9-16.9) g/dL Hct 32.6 L (37.5-50.1) % Plt Count 469 H (140-400) K/mcL Neutrophils # 10.9 H (1.6-8.9) K/mcL BMP 04/10/17 04:31 Sodium 134 L Potassium 4.1 Chloride 100 Carbon Dioxide 26 BUN 47 H Creatinine 1.40 H Glucose 163 H Calcium 8.4 L - ABG Interpretation ABG results: PT/INR, D-dimer PT 25.6 Seconds (9.4-12.1) H 04/06/17 16:47 - Impressions Impressions Chest X-Ray 04/10/17 08:26 IMPRESSION: 1. Enlarged cardiac silhouette with prominence of the pulmonary vasculature and bibasilar opacification. 2. Bilateral pleural effusions, right greater than left. D/ / Kameron Portillo MD / Kameron Portillo MD Interpreting Provider: Kameron Portillo MD Consult Discharge Plan - Plan Referrals: NONE,PCP [Primary Care Provider] -
[2017-04-10] MEDS ORDERED: Furosemide 40 MG/4 ML VIAL IVP ONE (13:34)
[2017-04-10] MEDS: Vancomycin 2,000 MG in D5% in Water 500 ML IVPB SCH (14:09)
[2017-04-10] MEDS: Piperacillin/Tazobactam 3.375 GM in D5% in Water (Mini-Bag+) 100 ML IVPB SCH ×2 (14:10→21:25)
[2017-04-11] MEDS: Piperacillin/Tazobactam 3.375 GM in D5% in Water (Mini-Bag+) 100 ML IVPB SCH ×3 (01:14→18:41)
[2017-04-11] MEDS: Vancomycin 2,000 MG in D5% in Water 500 ML IVPB SCH (01:18)
[2017-04-11 06:19] LABS: Basophils # 0.1 K/mcL (0.0-0.2); Basophils % 0.7 %; Eosinophils # 0.3 K/mcL (0.0-0.6); Eosinophils % 2.2 %; Hematocrit 32.4 % (37.5-50.1); Hemoglobin 9.4 g/dL (12.9-16.9); Immature Granulocytes % 0.7 % (0-4); Lymphocytes # 0.7 K/mcL (0.6-4.6); Lymphocytes % 5.6 %; Mean Corpuscular Volume 89.5 fL (83.0-100.0); Mean Platelet Volume 8.9 fL (9.4-12.4); Monocytes # 1.5 K/mcL (0.0-1.3); Monocytes % 12.1 %; Neutrophils # 9.6 K/mcL (1.6-8.9); Platelet Count 452 K/mcL (140-400); Red Blood Count 3.62 M/mcL (4.19-5.50); Red Cell Distribution Width 22.1 % (11.5-14.5); Segmented Neutrophils % 78.7 %
[2017-04-11 06:33] LABS: Calcium 8.5 mg/dL (8.6-10.8); Magnesium 2.3 mg/dL (1.6-2.6); Phosphorous 5.3 mg/dL (2.3-4.7); Potassium 3.8 mEq/L (3.5-4.5)
[2017-04-11] MEDS: Tiotropium 18 MCG inhalation IH SCH (09:34)
[2017-04-11] MEDS: Budesonide/Formoterol 160/4.5 MDI IH SCH ×2 (09:34→20:10)
[2017-04-11] MEDS ORDERED: Furosemide 20 MG TABLET PO ONE (10:55)
[2017-04-11] MEDS: Insulin LISPRO 300 UNITS/3 ML VIAL SQ SCH ×4 (11:10→22:42)
[2017-04-11] MEDS: Diltiazem CD (24hr) 180 MG CAPSULE PO SCH ×2 (11:11→22:41)
[2017-04-11] MEDS: *HR* Amiodarone 200 MG TABLET PO SCH (11:12)
[2017-04-11] MEDS: *HR* Rivaroxaban 10 MG TABLET PO SCH (11:12)
[2017-04-11] MEDS: Aspirin 81 MG TAB.CHEW PO SCH (11:15)
[2017-04-11] MEDS: Insulin DETEMIR 100 UNIT/ML X5UNITS SQ SCH ×2 (11:16→22:42)
--- NOTE | 2017-04-11 12:06 | Internal Med Progress Note ---
Date of Encounter: 04/11/17 Time of Encounter: 12:05 - Assessment and plan (1) Acute exacerbation of CHF (congestive heart failure) Current Visit: No Status: Acute Assessment and plan: Respiratory status improved As per patient he is back to his baseline continue O2 supplementation continue home dose of Lasix this evening (Lasix 60mg PO BID) monitor I/Os fluid restriction diet monitor daily weight bipap support as needed As per records, patient has history of noncompliance and does not take his medications and adhere to a Fluid restriction diet after discharge Qualifiers: Congestive heart failure type: combined Qualified Code(s): I50.43 - Acute on chronic combined systolic (congestive) and diastolic (congestive) heart failure (2) Foot ulcer Current Visit: Yes Status: Acute Assessment and plan: history of diabetes and diabetic foot ulcers s/p trauma to left big toe s/p I&D by podiatry-follow up requested continue wound care as per podiatry concern for infectious etiology, given persistent drainage from left foot, will continue empiric abx d/c pending clearance from podiatry given persistent leukocytosis, will closely monitor Qualifiers: Laterality: left Non-pressure ulcer stage: unspecified non-pressure ulcer stage Qualified Code(s): L97.529 - Non-pressure chronic ulcer of other part of left foot with unspecified severity (3) Afib Current Visit: No Status: Chronic Assessment and plan: Rate controlled with Amiodarone anticoagulated with Xarelto Qualifiers: Atrial fibrillation type: paroxysmal Qualified Code(s): I48.0 - Paroxysmal atrial fibrillation (4) COPD (chronic obstructive pulmonary disease) Current Visit: No Status: Chronic Assessment and plan: not in acute exacerbation continue bronchodilator support and O2 supplementation as needed Qualifiers: COPD type: unspecified COPD Qualified Code(s): J44.9 - Chronic obstructive pulmonary disease, unspecified (5) Hypokalemia Current Visit: No Status: Resolved (6) Sleep apnea with use of continuous positive airway pressure (CPAP) Current Visit: No Status: Chronic (7) Type 2 diabetes mellitus Current Visit: No Status: Chronic Assessment and plan: continue home insulin dosing high dose ss insulin algorithm as needed monitor FS and BG as needed Qualifiers: Diabetes mellitus complication status: with unspecified complications Diabetes mellitus watermaster insulin use: with long-term use Qualified Code(s) : E11.8 - Type 2 diabetes mellitus with unspecified complications; Z79.4 - alf (current) use of insulin (8) DVT prophylaxis Current Visit: Yes Status: Acute Assessment and plan: anticoagulated with Xarelto (9) Morbid obesity with BMI of 45.0-49.9, adult Current Visit: Yes Status: Chronic (10) Svxhj-fq-docjazm kidney injury Current Visit: Yes Status: Acute Assessment and plan: Likely secondary to diuretic support will continue to closely monitor Qualifiers: Acute renal failure type: unspecified Chronic kidney disease stage: stage 3 (moderate) Qualified Code(s): N17.9 - Acute kidney failure, unspecified; N18.3 - Chronic kidney disease, stage 3 (moderate) - Subjective Interval history: Pt seen and examined at bedside. Resting in bed and reports of improvement in his breathing. No overnight issues reported Noted to have improvement in his leukocytosis. Will continue abx for infected foot ulcer-podiatry on board. d/c pending clearance from podiatry - Constitutional Vitals: Temp Pulse Resp BP Pulse Ox 97.9 F 81 16 123/89 93 04/11/17 11:57 04/11/17 11:57 04/11/17 11:57 04/11/17 11:57 04/11/17 11:57 General appearance: Present: A&O X 3, morbidly obese, no acute distress, answers questions appropriately - Head Head exam: Present: atraumatic, normocephalic - Eye Eye exam: Present: conjuntiva pink, sclera anicteric - Respiratory Respiratory exam: Absent: respiratory distress, wheezes (diminshed breath sounds on bilateral bases ) - Cardiovascular Cardiovascular exam: Present: RRR, +S1, +S2. Absent: diastolic murmur, gallop, rubs, systolic murmur - GI/Abdominal GI/Abdominal exam: Present: distended (obese), normal bowel sounds, soft, no peritoneal signs. Absent: tenderness - Extremities Exam Extremities exam: Present: pedal edema, warm, radial pulses palpable and symetrical (b/l LE wrapped in dressing) - Neurological Exam Neurological exam: Present: alert, oriented X3 - Psychiatric Psychiatric exam: Present: normal affect, normal mood Internal Medicine: Result - Labs CBC & Chem 7: 04/11/17 05:46 04/11/17 05:46 Labs: Short CBC 04/11/17 Range/Units 05:46 WBC 12.2 H (4.3-11.1) K/mcL Hgb 9.4 L (12.9-16.9) g/dL Hct 32.4 L (37.5-50.1) % Plt Count 452 H (140-400) K/mcL Neutrophils # 9.6 H (1.6-8.9) K/mcL BMP 04/11/17 05:46 Sodium 137 Potassium 3.8 Chloride 102 Carbon Dioxide 29 BUN 47 H Creatinine 1.44 H Glucose 99 Calcium 8.5 L - ABG Interpretation ABG results: PT/INR, D-dimer PT 25.6 Seconds (9.4-12.1) H 04/06/17 16:47 Consult Discharge Plan - Plan Referrals: NONE,PCP [Primary Care Provider] -
[2017-04-11] MEDS: Metoprolol XL (24 HR) Succ 50 MG TAB.ER.24H PO SCH (14:18)
--- NOTE | 2017-04-11 16:09 | Podiatry Progress Note ---
Date of Encounter: 04/11/17 Time of Encounter: 12:15 - Assessment and Plan (1) Foot ulcer Current Visit: Yes Status: Acute DFU to the plantar aspect of the left foot and posterior lateral aspect of the right heel. 100% yellow slough to both ulcerations, no probe to bone, no evidence of bacterial infection. Wound care ordered for Santyl ointment to both ulcerations with sterile 4x4 gauze and kerlix. Xrays obtained of both feet and no evidence of bony erosion or OM. Continue wound care as ordered. Continue Prevalon boot to right foot while in bed. Qualifiers: Laterality: left Non-pressure ulcer stage: unspecified non-pressure ulcer stage Qualified Code(s): L97.529 - Non-pressure chronic ulcer of other part of left foot with unspecified severity (2) Blister of toe of left foot Current Visit: Yes Status: Acute S/p deroofed blister of the left great toe. Left great toe continues to heal. There is a large amount of serous drainage observed to dressing, the surround wound edges and the interdigital webspaces of toes #1, #2, #3 are macerated. Will discontinue use of Bacitracin and start betadine gauze dressing to the left great toe and to the interdigital webspaces between toes #1,#2, #3 every 6 hours or more if dressing is saturated. Due to amount of drainage and elevated WBC of 12.2 patient was started on empiric IV antibiotics. Recommend patient be discharged on oral Keflex for 10 days. The wound does not appear to be infected. Xrays obtained and no evidence of bony erosion or OM. Patient will require a post op surgical shoe to both feet. Continue wound care to DFU of both feet with Santyl ointment upon discharge. Continue use of Prevalon boot to the right foot while in bed to keep pressure alleviated from the right heel. Patient will need to f/u in Podiatry clinic with Reese oconnor in a week of discharge from the hospital. 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 insulin use: unspecified residential insulin use status Qualified Code(s): E11.40 - Type 2 diabetes mellitus with diabetic neuropathy, unspecified (4) Congestive heart failure Current Visit: Yes Status: Chronic Qualifiers: Congestive heart failure type: unspecified congestive heart failure type Congestive heart failure chronicity: unspecified congestive heart failure chronicity Qualified Code(s): I50.9 - Heart failure, unspecified (5) Morbid obesity with BMI of 45.0-49.9, adult Current Visit: Yes Status: Chronic (6) Acute and chronic respiratory failure Current Visit: No Status: Acute Qualifiers: Respiratory failure complication: hypoxia Qualified Code(s): J96.21 - Acute and chronic respiratory failure with hypoxia (7) Chronic venous insufficiency Current Visit: Yes Status: Acute Clear drainage seeping from BLE, recommend cleansing legs daily with mild soap and water. Apply abd pads to anterior tibial regions of BLE with kerlix from toes to tibia BID. (8) Onychomycosis Current Visit: Yes Status: Acute Toe nails #3 through #5 right and #2 through #5 left are thick, elongated and mycotic. Recommend diabetic foot care in Podiatry clinic. Subjective Interval history: Patient is sitting up in bed with dressings intact to both feet. A prevalon boot is on the right foot. Patient denies any pain to his feet. No c/o fever or chills overnight. Patient had the blister deroofed from his left great toe on 04/07/17. Objective - Vital Signs Vital Signs: Vital Signs Temp Pulse Resp BP Pulse Ox 04/11/17 15:40 97.7 F 74 16 119/69 98 04/11/17 11:57 97.9 F 81 16 123/89 93 04/11/17 09:34 16 93 04/11/17 07:29 98 F 74 16 103/65 98 04/11/17 03:43 97.9 F 79 16 110/69 95 04/10/17 22:32 18 97 04/10/17 21:30 98.0 F 82 15 134/78 95 Intake and Output 04/11/17 04/11/17 04/11/17 07:59 15:59 23:59 Intake Total 100 / 100 1300 / 1300 Output Total 1500 / 1500 Balance -1400 / -1400 1300 / 1300 Intake: IV Fluids 100 / 100 100 / 100 Zosyn 3.375 GM In 100 / 100 100 / 100 Dextrose 5% (Minibag+) 100 ML 100 ML @ 25 mls/hr IVPB Q8HR [facility] Rx#: [id number] Oral 1200 / 1200 Output: Catheter 1500 / 1500 Other: Meal Lunch Percent of Meal Consumed 100% Weight 155.9 kg Blood Glucose* 194 232 Patient Weight 04/11/17 23:59 Weight 155.9 kg - Exam Exam: General appearance: alert awake oriented X 3. Calm and pleasant, no acute distress.. Vascular: Pedal pulses +2/4 DP/PT , Edema graded at 1+/4, Skin Temperature warm , capillary refill time is immediate to digits. Neurologic: Sensation diminished with light touch to both feet. Integument: hemosiderin staining to BLE and feet. Clear fluid seeping from anterior tibial region of BLE. Left great toe: s/p deroofed blister, wound is superficial, base of wound is pink with large amount of serous drainage. Macerated wound edges, skin to the interdigital webspace between toes #1,#2,#3 left foot is macerated. Ulceration #1 to the left foot plantar aspect measuring 1cm in length x 1 cm in width x 0.3 cm in depth with 100% yellow slough, light periwound erythema, no streaking, no pus, no odor, no probe to bone, no fluctuance, no sinus tracts, no tunneling, no warmth. Ulceration #2 to the right posterior heel lateral aspect measuring 1cm in length x 1 cm in width x 0.3 cm in depth with 100% yellow slough, light periwound erythema, no streaking, no pus, no odor, no probe to bone, no fluctuance, no sinus tracts, no tunneling, no warmth. Dried scab to the left lateral foot and dorsal aspect of toe #2 left foot. No nails present to toe #1 bilaterally and #2 right foot. All other toe nails are thick, elongated and mycotic. - Lab Result Diagrams: 04/11/17 05:46 04/11/17 05:46 Labs: Abnormal lab results WBC 12.2 K/mcL (4.3-11.1) H 04/11/17 05:46 RBC 3.62 M/mcL (4.19-5.50) L 04/11/17 05:46 Hgb 9.4 g/dL (12.9-16.9) L 04/11/17 05:46 Hct 32.4 % (37.5-50.1) L 04/11/17 05:46 MCH 26.0 pg (28.0-33.3) L 04/11/17 05:46 MCHC 29.0 g/dL (31.6-35.5) L 04/11/17 05:46 RDW 22.1 % (11.5-14.5) H 04/11/17 05:46 Plt Count 452 K/mcL (140-400) H 04/11/17 05:46 MPV 8.9 fL (9.4-12.4) L 04/11/17 05:46 Neutrophils # 9.6 K/mcL (1.6-8.9) H 04/11/17 05:46 Monocytes # 1.5 K/mcL (0.0-1.3) H 04/11/17 05:46 Platelet Estimate Slight increase (Normal) H 04/06/17 16:49 Hypochromasia Present (Not Present) A 04/06/17 16:49 Anisocytosis 3+ (Not Present) A 04/06/17 16:49 PT 25.6 Seconds (9.4-12.1) H 04/06/17 16:47 APTT 37.6 Seconds (26.0-36.0) H 04/06/17 16:47 BUN 47 mg/dL (8-26) H 04/11/17 05:46 Creatinine 1.44 mg/dL (0.72-1.25) H 04/11/17 05:46 Est GFR ( Amer) 58 (> 60) L 04/11/17 05:46 Est GFR (Non-Af Amer) 48 (> 60) L 04/11/17 05:46 BUN/Creatinine Ratio 33 (6-26) H 04/11/17 05:46 POC Glucose 194 (58-89) H 04/11/17 07:31 Lactic Acid 2.4 mmol/L (0.5-2.2) H 04/06/17 18:52 Calcium 8.5 mg/dL (8.6-10.8) L 04/11/17 05:46 Phosphorus 5.3 mg/dL (2.3-4.7) H 04/11/17 05:46 B-Natriuretic Peptide 667 pg/mL (0-100) H 04/06/17 16:49 Consult Discharge Plan - Plan Referrals: NONE,PCP [Primary Care Provider] -
[2017-04-12] MEDS ORDERED: Vancomycin 2,000 MG in D5% in Water 500 ML IVPB SCH (02:00)
[2017-04-12] MEDS: Piperacillin/Tazobactam 3.375 GM in D5% in Water (Mini-Bag+) 100 ML IVPB SCH ×2 (03:50→12:44)
[2017-04-12] MEDS ORDERED: Ipratropium/Albuterol Neb 3 ML IH PRN (09:54)
[2017-04-12] MEDS: Insulin LISPRO 300 UNITS/3 ML VIAL SQ SCH ×4 (09:56→20:52)
[2017-04-12] MEDS: *HR* Rivaroxaban 10 MG TABLET PO SCH (10:26)
[2017-04-12] MEDS: cephALEXin 500 MG CAPSULE PO SCH ×2 (10:26→19:59)
[2017-04-12] MEDS: Aspirin 81 MG TAB.CHEW PO SCH (10:27)
[2017-04-12] MEDS: Diltiazem CD (24hr) 180 MG CAPSULE PO SCH ×2 (10:27→19:59)
[2017-04-12] MEDS: Metoprolol XL (24 HR) Succ 50 MG TAB.ER.24H PO SCH (10:27)
[2017-04-12] MEDS: *HR* Amiodarone 200 MG TABLET PO SCH (10:27)
[2017-04-12] MEDS: Insulin DETEMIR 100 UNIT/ML X5UNITS SQ SCH ×2 (10:27→20:52)
[2017-04-12] MEDS: Tiotropium 18 MCG inhalation IH SCH (11:00)
[2017-04-12] MEDS: Budesonide/Formoterol 160/4.5 MDI IH SCH ×2 (11:00→22:47)
--- NOTE | 2017-04-12 13:23 | Podiatry Progress Note ---
Date of Encounter: 04/12/17 Time of Encounter: 12:00 - Assessment and Plan (1) Foot ulcer Current Visit: Yes Status: Acute DFU to the plantar aspect of the left foot and posterior lateral aspect of the right heel. 100% yellow slough to both ulcerations, no probe to bone, no evidence of bacterial infection. Wound care ordered for Santyl ointment to both ulcerations with sterile 4x4 gauze and kerlix to the left foot and santyl with Allevyn to the right heel ulcer. Xrays obtained of both feet and no evidence of bony erosion or OM. Continue wound care as ordered. Continue Prevalon boot to right foot while in bed. Patient will need post op shoes bilaterally to off load pressure and allow ulcerations to heal. Qualifiers: Laterality: left Non-pressure ulcer stage: unspecified non-pressure ulcer stage Qualified Code(s): L97.529 - Non-pressure chronic ulcer of other part of left foot with unspecified severity (2) Blister of toe of left foot Current Visit: Yes Status: Acute S/p deroofed blister of the left great toe. Left great toe continues to heal. There is a large amount of serous drainage observed to dressing, the surrounding wound edges and the interdigital webspaces of toes #1, #2, #3 are macerated. Will discontinue use of Bacitracin and start betadine gauze dressing to the left great toe and to the interdigital webspaces between toes #1,#2, #3 every 6 hours or more if dressing is saturated. Due to amount of drainage and elevated WBC of 12.2 patient was started on empiric IV antibiotics. Recommend patient be discharged on oral Keflex for 10 days. The wound does not appear to be infected. Xrays obtained and no evidence of bony erosion or OM. Patient will require a post op surgical shoe to both feet. Continue wound care to DFU of both feet with Santyl ointment upon discharge. Continue use of Prevalon boot to the right foot while in bed to keep pressure alleviated from the right heel. Patient will need to f/u in Podiatry clinic with Reese oconnor in a week of discharge from the hospital. 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 2 Diabetes mellitus half-way insulin use: unspecified half-way insulin use status Qualified Code(s): E11.40 - Type 2 diabetes mellitus with diabetic neuropathy, unspecified (4) Congestive heart failure Current Visit: Yes Status: Chronic Qualifiers: Congestive heart failure type: unspecified congestive heart failure type Congestive heart failure chronicity: unspecified congestive heart failure chronicity Qualified Code(s): I50.9 - Heart failure, unspecified (5) Morbid obesity with BMI of 45.0-49.9, adult Current Visit: Yes Status: Chronic (6) Acute and chronic respiratory failure Current Visit: No Status: Acute Qualifiers: Respiratory failure complication: hypoxia Qualified Code(s): J96.21 - Acute and chronic respiratory failure with hypoxia (7) Chronic venous insufficiency Current Visit: Yes Status: Acute Clear drainage seeping from BLE, recommend cleansing legs daily with mild soap and water. Apply abd pads to anterior tibial regions of BLE with kerlix from toes to tibia BID. (8) Onychomycosis Current Visit: Yes Status: Acute Toe nails #3 through #5 right and #2 through #5 left are thick, elongated and mycotic. Recommend diabetic foot care in Podiatry clinic. Subjective Interval history: Patient is sitting up in bed with dressings removed prior to my arrival to the room. Per nurse patients navarrete catheter was removed and he has urinated on his post op shoe. Patient had the blister of the left great toe deroofed on . Betadine dressings have been ordered to the left great toe and to the interdigital webspace between toes #1,#2,#3 of the left foot. Santyl ointment is being applied to both DFU of both feet. Patient has a prevalon boot for the right foot to keep pressure away from the ulcer of the right heel. Patient has a post op shoe in the room for the left foot. No c/o pain, fever or chills overnight. Objective - Vital Signs Vital Signs: Vital Signs Temp Pulse Resp BP Pulse Ox 04/12/17 11:55 98.1 F 92 16 121/81 95 04/12/17 11:00 18 98 04/12/17 07:39 97.7 F 101 18 118/61 98 04/12/17 05:18 98.7 F 89 15 117/90 94 04/11/17 22:41 133/81 04/11/17 21:46 97.6 F 74 14 111/64 100 04/11/17 20:10 20 100 04/11/17 18:34 98 04/11/17 15:40 97.7 F 74 16 119/69 98 Intake and Output 04/11/17 04/12/17 04/12/17 23:59 07:59 15:59 Intake Total 100 / 100 100 / 100 Output Total 1500 / 1500 Balance 100 / 100 -1400 / -1400 Intake: IV Fluids 100 / 100 100 / 100 Zosyn 3.375 GM In 100 / 100 100 / 100 Dextrose 5% (Minibag+) 100 ML 100 ML @ 25 mls/hr IVPB Q8H [facility] Rx#: [id number] Output: Urine 1500 / 1500 Other: Stool Size Moderate Small Stool Consistency soft formed formed Stool Color Brown # Bowel Movements 1 Blood Glucose* 129 121 136 - Exam Exam: General appearance: alert awake oriented X 3. Calm and pleasant, no acute distress.. Vascular: Pedal pulses +2/4 DP/PT , Edema graded at 1+/4, Skin Temperature warm , capillary refill time is immediate to digits. Neurologic: Sensation diminished with light touch to both feet. Integument: hemosiderin staining to BLE and feet. Clear fluid seeping from anterior tibial region of BLE. Left great toe: s/p deroofed blister, wound is superficial, base of wound is pink with large amount of serous drainage. Macerated wound edges, macerated skin to the interdigital webspace between toes #1,#2,#3 left foot. Ulceration #1 to the left foot plantar aspect measuring 1cm in length x 1 cm in width x 0.3 cm in depth with 100% yellow slough, light periwound erythema, no streaking, no pus, no odor, no probe to bone, no fluctuance, no sinus tracts, no tunneling, no warmth. Ulceration #2 to the right posterior heel lateral aspect measuring 1cm in length x 1 cm in width x 0.3 cm in depth with 100% yellow slough, light periwound erythema, no streaking, no pus, no odor, no probe to bone, no fluctuance, no sinus tracts, no tunneling, no warmth. Dried scab to the left lateral foot and dorsal aspect of toe #2 left foot. Abrasion to the dorsal aspect of toe #2 right foot. No nails present to toe #1 bilaterally and #2 right foot. All other toe nails are thick, elongated and mycotic. - Lab Result Diagrams: 04/11/17 05:46 04/11/17 05:46 Labs: Abnormal lab results WBC 12.2 K/mcL (4.3-11.1) H 04/11/17 05:46 RBC 3.62 M/mcL (4.19-5.50) L 04/11/17 05:46 Hgb 9.4 g/dL (12.9-16.9) L 04/11/17 05:46 Hct 32.4 % (37.5-50.1) L 04/11/17 05:46 MCH 26.0 pg (28.0-33.3) L 04/11/17 05:46 MCHC 29.0 g/dL (31.6-35.5) L 04/11/17 05:46 RDW 22.1 % (11.5-14.5) H 04/11/17 05:46 Plt Count 452 K/mcL (140-400) H 04/11/17 05:46 MPV 8.9 fL (9.4-12.4) L 04/11/17 05:46 Neutrophils # 9.6 K/mcL (1.6-8.9) H 04/11/17 05:46 Monocytes # 1.5 K/mcL (0.0-1.3) H 04/11/17 05:46 Platelet Estimate Slight increase (Normal) H 04/06/17 16:49 Hypochromasia Present (Not Present) A 04/06/17 16:49 Anisocytosis 3+ (Not Present) A 04/06/17 16:49 PT 25.6 Seconds (9.4-12.1) H 04/06/17 16:47 APTT 37.6 Seconds (26.0-36.0) H 04/06/17 16:47 BUN 47 mg/dL (8-26) H 04/11/17 05:46 Creatinine 1.44 mg/dL (0.72-1.25) H 04/11/17 05:46 Est GFR ( Amer) 58 (> 60) L 04/11/17 05:46 Est GFR (Non-Af Amer) 48 (> 60) L 04/11/17 05:46 BUN/Creatinine Ratio 33 (6-26) H 04/11/17 05:46 POC Glucose 136 (58-89) H 04/12/17 11:49 Lactic Acid 2.4 mmol/L (0.5-2.2) H 04/06/17 18:52 Calcium 8.5 mg/dL (8.6-10.8) L 04/11/17 05:46 Phosphorus 5.3 mg/dL (2.3-4.7) H 04/11/17 05:46 B-Natriuretic Peptide 667 pg/mL (0-100) H 04/06/17 16:49 Consult Discharge Plan - Plan Referrals: NONE,PCP [Primary Care Provider] -
--- NOTE | 2017-04-12 19:05 | Internal Med Progress Note ---
Date of Encounter: 04/12/17 Time of Encounter: 19:03 - Assessment and plan (1) COPD (chronic obstructive pulmonary disease) Current Visit: No Status: Chronic Assessment and plan: not in acute exacerbation continue bronchodilator support and O2 supplementation as needed Qualifiers: COPD type: unspecified COPD Qualified Code(s): J44.9 - Chronic obstructive pulmonary disease, unspecified (2) Afib Current Visit: No Status: Chronic Assessment and plan: Rate controlled with Amiodarone anticoagulated with Xarelto Qualifiers: Atrial fibrillation type: paroxysmal Qualified Code(s): I48.0 - Paroxysmal atrial fibrillation (3) Cardiomyopathy Current Visit: No Status: Acute Qualifiers: Cardiomyopathy type: unspecified Qualified Code(s): I42.9 - Cardiomyopathy , unspecified (4) Foot ulcer Current Visit: Yes Status: Acute Assessment and plan: history of diabetes and diabetic foot ulcers s/p trauma to left big toe s/p I&D by podiatry-follow up requested continue wound care as per podiatry concern for infectious etiology, given persistent drainage from left foot, will continue empiric abx d/c pending clearance from podiatry given persistent leukocytosis, will closely monitor Qualifiers: Laterality: left Non-pressure ulcer stage: unspecified non-pressure ulcer stage Qualified Code(s): L97.529 - Non-pressure chronic ulcer of other part of left foot with unspecified severity (5) DVT prophylaxis Current Visit: Yes Status: Acute Assessment and plan: anticoagulated with Xarelto (6) Diabetes mellitus with neuropathy Current Visit: Yes Status: Acute Qualifiers: Diabetes mellitus type: type 2 Diabetes mellitus ranch hand insulin use: unspecified shelter insulin use status Qualified Code(s): E11.40 - Type 2 diabetes mellitus with diabetic neuropathy, unspecified (7) Fridh-cn-ypdkwnk kidney injury Current Visit: Yes Status: Acute Assessment and plan: Likely secondary to diuretic support will continue to closely monitor Qualifiers: Acute renal failure type: unspecified Chronic kidney disease stage: stage 3 (moderate) Qualified Code(s): N17.9 - Acute kidney failure, unspecified; N18.3 - Chronic kidney disease, stage 3 (moderate) - Subjective Interval history: Pt seen and examined at bedside. Resting in bed and reports of improvement in his breathing. No overnight issues reported Noted to have improvement in his leukocytosis. Will continue abx for infected foot ulcer-podiatry on board. d/c pending clearance from podiatry - Constitutional Vitals: Temp Pulse Resp BP Pulse Ox 98 F 95 16 119/69 96 04/12/17 15:50 04/12/17 15:50 04/12/17 15:50 04/12/17 15:50 04/12/17 15:50 General appearance: Present: A&O X 3, morbidly obese, no acute distress, answers questions appropriately - Head Head exam: Present: atraumatic, normocephalic - Eye Eye exam: Present: PERRL, conjuntiva pink, sclera anicteric Pupils: Present: PERRL - Neck Neck exam general surgery: Present: supple, trachea midline. Absent: lymphadenopathy - Respiratory Respiratory exam: Present: CTAB. Absent: accessory muscle use, rales, rhonchi, wheezes - Cardiovascular Cardiovascular exam: Present: RRR, +S1, +S2. Absent: diastolic murmur, gallop, rubs, systolic murmur - GI/Abdominal GI/Abdominal exam: Present: normal bowel sounds, soft, no peritoneal signs. Absent: distended, tenderness - Extremities Exam Extremities exam: Absent: calf tenderness, cyanotic, pedal edema Additional comments: per podiatry - Neurological Exam Neurological exam: Present: CN II-XII intact, oriented X3, no focal deficits. Absent: pronater drift, facial droop, speech deficit - Skin Skin exam: Present: dry, intact Internal Medicine: Result - Labs CBC & Chem 7: 04/11/17 05:46 04/11/17 05:46 - ABG Interpretation ABG results: PT/INR, D-dimer PT 25.6 Seconds (9.4-12.1) H 04/06/17 16:47 Consult Discharge Plan - Plan Referrals: NONE,PCP [Primary Care Provider] -
[2017-04-13] MEDS: Tiotropium 18 MCG inhalation IH SCH (07:47)
[2017-04-13] MEDS: Budesonide/Formoterol 160/4.5 MDI IH SCH ×2 (07:47→20:11)
[2017-04-13] MEDS: Insulin LISPRO 300 UNITS/3 ML VIAL SQ SCH ×3 (07:56→17:58)
[2017-04-13] MEDS: Insulin DETEMIR 100 UNIT/ML X5UNITS SQ SCH ×2 (07:57→22:34)
[2017-04-13] MEDS: *HR* Rivaroxaban 10 MG TABLET PO SCH (07:58)
[2017-04-13] MEDS: cephALEXin 500 MG CAPSULE PO SCH ×2 (07:58→22:34)
[2017-04-13] MEDS: Aspirin 81 MG TAB.CHEW PO SCH (07:58)
[2017-04-13] MEDS: Diltiazem CD (24hr) 180 MG CAPSULE PO SCH ×2 (07:58→22:34)
[2017-04-13] MEDS: *HR* Amiodarone 200 MG TABLET PO SCH (07:58)
[2017-04-13] MEDS: Metoprolol XL (24 HR) Succ 50 MG TAB.ER.24H PO SCH (07:59)
[2017-04-13] MEDS ORDERED: Furosemide 40 MG/4 ML VIAL IVP ONE (11:11)
--- NOTE | 2017-04-13 13:26 | Podiatry Progress Note ---
Date of Encounter: 04/13/17 Time of Encounter: 12:15 - Assessment and Plan (1) Foot ulcer Current Visit: Yes Status: Acute DFU to the plantar aspect of the left foot and posterior lateral aspect of the right heel. 100% yellow slough to both ulcerations, no probe to bone, no evidence of bacterial infection. Wound care ordered for Santyl ointment to both ulcerations with sterile 4x4 gauze and kerlix to the left foot and santyl with Allevyn to the right heel ulcer. Xrays obtained of both feet and no evidence of bony erosion or OM. Continue wound care as ordered. Continue Prevalon boot to right foot while in bed. Patient will need post op shoes bilaterally to off load pressure and allow ulcerations to heal. Qualifiers: Laterality: left Non-pressure ulcer stage: unspecified non-pressure ulcer stage Qualified Code(s): L97.529 - Non-pressure chronic ulcer of other part of left foot with unspecified severity (2) Blister of toe of left foot Current Visit: Yes Status: Acute S/p deroofed blister of the left great toe. Overall significant improvement to the left great toe with decreased drainage. Continue calcium alginate dressing to the left great toe and betadine with 4x4 gauze to the interdigital webspaces between toes #1,#2, #3 BID or more if dressing is saturated. Recommend patient be discharged on oral Keflex for 10 days. Xrays obtained and no evidence of bony erosion or OM. Patient will require a post op surgical shoe to both feet. Continue wound care to DFU of both feet with Santyl ointment upon discharge. Continue use of Prevalon boot to the right foot while in bed to keep pressure alleviated from the right heel. Patient will need to f/u in Podiatry clinic with Reese oconnor in a week of discharge from the hospital. 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 2 Diabetes mellitus intermediate insulin use: unspecified intermission coordinator insulin use status Qualified Code(s): E11.40 - Type 2 diabetes mellitus with diabetic neuropathy, unspecified (4) Congestive heart failure Current Visit: Yes Status: Chronic Qualifiers: Congestive heart failure type: unspecified congestive heart failure type Congestive heart failure chronicity: unspecified congestive heart failure chronicity Qualified Code(s): I50.9 - Heart failure, unspecified (5) Morbid obesity with BMI of 45.0-49.9, adult Current Visit: Yes Status: Chronic (6) Acute and chronic respiratory failure Current Visit: No Status: Acute Qualifiers: Respiratory failure complication: hypoxia Qualified Code(s): J96.21 - Acute and chronic respiratory failure with hypoxia (7) Chronic venous insufficiency Current Visit: Yes Status: Acute Clear drainage seeping from BLE, recommend cleansing legs daily with mild soap and water. Apply abd pads to anterior tibial regions of BLE with kerlix from toes to tibia BID. (8) Onychomycosis Current Visit: Yes Status: Acute Toe nails #3 through #5 right and #2 through #5 left are thick, elongated and mycotic. Recommend diabetic foot care in Podiatry clinic. Subjective Interval history: Patient is sitting up in chair with dressings removed. Patient had a blister of the left great toe deroofed on 04/07/17. Calcium alginate and Betadine dressings have been ordered to the left great toe and to the interdigital webspace between toes #1,#2,#3 of the left foot. Santyl ointment is being applied to both DFU of both feet. Patient has a prevalon boot for the right foot to keep pressure away from the ulcer of the right heel. Patient has a post op shoes in the room for both feet. No c/o pain, fever or chills overnight. Objective - Vital Signs Vital Signs: Vital Signs Temp Pulse Resp BP Pulse Ox 04/13/17 12:02 97.3 F L 72 16 104/61 98 04/13/17 08:15 97 04/13/17 07:48 18 97 04/13/17 07:36 98.5 F 73 16 104/65 98 04/13/17 03:38 76 17 111/76 96 04/12/17 22:48 16 93 04/12/17 20:50 97.9 F 88 17 114/66 95 04/12/17 20:00 96 04/12/17 15:50 98 F 95 16 119/69 96 Intake and Output 04/12/17 04/13/17 04/13/17 23:59 07:59 15:59 Intake Total 75 / 75 360 / 360 Balance 75 / 75 360 / 360 Intake: IV Fluids 75 / 75 Zosyn 3.375 GM In 75 / 75 Dextrose 5% (Minibag+) 100 ML 100 ML @ 25 mls/hr IVPB Q8H [facility] Rx#: [id number] Oral 360 / 360 Other: Meal Breakfast Percent of Meal Consumed 100% Weight 155.9 kg 152.875 kg Blood Glucose* 286 181 240 Patient Weight 04/13/17 23:59 Weight 152.875 kg - Exam Exam: General appearance: alert awake oriented X 3. Calm and pleasant, no acute distress.. Vascular: Pedal pulses +2/4 DP/PT , Edema graded at 1+/4, Skin Temperature warm , capillary refill time is immediate to digits. Neurologic: Sensation diminished with light touch to both feet. Integument: hemosiderin staining to BLE and feet. Clear fluid seeping from anterior tibial region of BLE. Left great toe: s/p deroofed blister, wound is superficial, base of wound is pink with moderate amount of serous drainage. Macerated wound edges, decreased macerated skin to the interdigital webspace between toes #1,#2,#3 left foot. Ulceration #1 to the left foot plantar aspect measuring 1cm in length x 1 cm in width x 0.3 cm in depth with 100% yellow slough, light periwound erythema, no streaking, no pus, no odor, no probe to bone, no fluctuance, no sinus tracts, no tunneling, no warmth. Ulceration #2 to the right posterior heel lateral aspect measuring 1cm in length x 1 cm in width x 0.3 cm in depth with 100% yellow slough, light periwound erythema, no streaking, no pus, no odor, no probe to bone, no fluctuance, no sinus tracts, no tunneling, no warmth. Dried scab to the left lateral foot and dorsal aspect of toe #2 left foot. Abrasion to the dorsal aspect of toe #2 right foot. No nails present to toe #1 bilaterally and #2 right foot. All other toe nails are thick, elongated and mycotic. - Lab Result Diagrams: 04/11/17 05:46 04/11/17 05:46 Labs: Abnormal lab results WBC 12.2 K/mcL (4.3-11.1) H 04/11/17 05:46 RBC 3.62 M/mcL (4.19-5.50) L 04/11/17 05:46 Hgb 9.4 g/dL (12.9-16.9) L 04/11/17 05:46 Hct 32.4 % (37.5-50.1) L 04/11/17 05:46 MCH 26.0 pg (28.0-33.3) L 04/11/17 05:46 MCHC 29.0 g/dL (31.6-35.5) L 04/11/17 05:46 RDW 22.1 % (11.5-14.5) H 04/11/17 05:46 Plt Count 452 K/mcL (140-400) H 04/11/17 05:46 MPV 8.9 fL (9.4-12.4) L 04/11/17 05:46 Neutrophils # 9.6 K/mcL (1.6-8.9) H 04/11/17 05:46 Monocytes # 1.5 K/mcL (0.0-1.3) H 04/11/17 05:46 Platelet Estimate Slight increase (Normal) H 04/06/17 16:49 Hypochromasia Present (Not Present) A 04/06/17 16:49 Anisocytosis 3+ (Not Present) A 04/06/17 16:49 PT 25.6 Seconds (9.4-12.1) H 04/06/17 16:47 APTT 37.6 Seconds (26.0-36.0) H 04/06/17 16:47 BUN 47 mg/dL (8-26) H 04/11/17 05:46 Creatinine 1.44 mg/dL (0.72-1.25) H 04/11/17 05:46 Est GFR ( Amer) 58 (> 60) L 04/11/17 05:46 Est GFR (Non-Af Amer) 48 (> 60) L 04/11/17 05:46 BUN/Creatinine Ratio 33 (6-26) H 04/11/17 05:46 POC Glucose 240 (58-89) H 04/13/17 11:12 Lactic Acid 2.4 mmol/L (0.5-2.2) H 04/06/17 18:52 Calcium 8.5 mg/dL (8.6-10.8) L 04/11/17 05:46 Phosphorus 5.3 mg/dL (2.3-4.7) H 04/11/17 05:46 B-Natriuretic Peptide 667 pg/mL (0-100) H 04/06/17 16:49 Consult Discharge Plan - Plan Referrals: NONE,PCP [Primary Care Provider] -
--- NOTE | 2017-04-13 18:23 | Internal Med Progress Note ---
Date of Encounter: 04/13/17 Time of Encounter: 18:20 - Assessment and plan (1) COPD (chronic obstructive pulmonary disease) Current Visit: No Status: Chronic Qualifiers: COPD type: unspecified COPD Qualified Code(s): J44.9 - Chronic obstructive pulmonary disease, unspecified (2) Afib Current Visit: No Status: Chronic Qualifiers: Atrial fibrillation type: paroxysmal Qualified Code(s): I48.0 - Paroxysmal atrial fibrillation (3) Cardiomyopathy Current Visit: No Status: Acute Qualifiers: Cardiomyopathy type: unspecified Qualified Code(s): I42.9 - Cardiomyopathy , unspecified (4) Foot ulcer Current Visit: Yes Status: Acute Qualifiers: Laterality: left Non-pressure ulcer stage: unspecified non-pressure ulcer stage Qualified Code(s): L97.529 - Non-pressure chronic ulcer of other part of left foot with unspecified severity (5) DVT prophylaxis Current Visit: Yes Status: Acute (6) Diabetes mellitus with neuropathy Current Visit: Yes Status: Acute Qualifiers: Diabetes mellitus type: type 2 Diabetes mellitus long-term insulin use: unspecified termite control 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 Resting in bed and reports of improvement in his breathing. No overnight issues reported Noted to have improvement in his leukocytosis. Will continue abx for infected foot ulcer-podiatry on board. d/c pending clearance from podiatry 04/13 patient complaining of water seeping out of abdominal pannus. His skin is slightly indurated. However lungs are clear. IV Lasix one dose given. Repeat CBC CMP in the morning. Patient is awaiting [place] [facility] placement however has some insurance issues. - Constitutional Vitals: Temp Pulse Resp BP Pulse Ox 97.5 F L 75 16 118/73 98 04/13/17 15:52 04/13/17 15:52 04/13/17 15:52 04/13/17 15:52 04/13/17 15:52 General appearance: Present: A&O X 3, morbidly obese, no acute distress, answers questions appropriately - Head Head exam: Present: atraumatic, normocephalic - Eye Eye exam: Present: PERRL, conjuntiva pink, sclera anicteric Pupils: Present: PERRL - Neck Neck exam general surgery: Present: supple, trachea midline. Absent: lymphadenopathy - Respiratory Respiratory exam: Present: CTAB. Absent: accessory muscle use, rales, rhonchi, wheezes - Cardiovascular Cardiovascular exam: Present: RRR, +S1, +S2. Absent: diastolic murmur, gallop, rubs, systolic murmur - GI/Abdominal GI/Abdominal exam: Present: normal bowel sounds, soft, no peritoneal signs. Absent: distended, tenderness Additional comments: abdominal wall is slightly indurated shows some seeping of serous fluid however no redness or signs of infection - Extremities Exam Extremities exam: Present: warm, radial pulses palpable and symetrical. Absent : calf tenderness, cyanotic, pedal edema - Neurological Exam Neurological exam: Present: CN II-XII intact, oriented X3, no focal deficits. Absent: pronater drift, facial droop, speech deficit - Skin Skin exam: Present: dry, intact Internal Medicine: Result - Labs CBC & Chem 7: 04/11/17 05:46 04/11/17 05:46 - ABG Interpretation ABG results: PT/INR, D-dimer PT 25.6 Seconds (9.4-12.1) H 04/06/17 16:47 Consult Discharge Plan - Plan Referrals: NONE,PCP [Primary Care Provider] -
[2017-04-14] MEDS: Insulin LISPRO 300 UNITS/3 ML VIAL SQ SCH ×3 (01:19→12:01)
[2017-04-14 06:22] LABS: Basophils # 0.1 K/mcL (0.0-0.2); Basophils % 0.5 %; Eosinophils # 0.3 K/mcL (0.0-0.6); Eosinophils % 3.5 %; Hematocrit 30.1 % (37.5-50.1); Hemoglobin 8.8 g/dL (12.9-16.9); Immature Granulocytes % 0.5 % (0-4); Lymphocytes # 0.7 K/mcL (0.6-4.6); Lymphocytes % 7.1 %; Mean Corpuscular HGB Conc 29.2 g/dL (31.6-35.5); Mean Corpuscular Hemoglobin 26.3 pg (28.0-33.3); Mean Corpuscular Volume 90.1 fL (83.0-100.0); Monocytes # 1.2 K/mcL (0.0-1.3); Monocytes % 12.8 %; Neutrophils # 7.2 K/mcL (1.6-8.9); Platelet Count 464 K/mcL (140-400); Red Blood Count 3.34 M/mcL (4.19-5.50); Segmented Neutrophils % 75.6 %
[2017-04-14 06:35] LABS: Alanine Aminotransferase 25 Units/L (0-55); Albumin 2.1 g/dL (3.5-5.0); Albumin/Globulin Ratio 0.6 (1.1-2.2); Alkaline Phosphatase 113 Units/L (38-126); Aspartate Amino Transferase 26 Units/L (5-34); BUN/Creatinine Ratio 45 (6-26); Blood Urea Nitrogen 53 mg/dL (8-26); Calcium 8.4 mg/dL (8.6-10.8); Carbon Dioxide 29 mEq/L (19-29); Chloride 104 mEq/L (98-109); Globulin 3.8 g/dL (2.4-3.5); Glucose 132 mg/dL (70-99); Osmolality,Calculated 302 (280-300); Potassium 4.2 mEq/L (3.5-4.5); Sodium 138 mEq/L (136-145); Total Protein 5.9 g/dL (6.0-8.3); eGFR For African Americans > 60 (> 60); eGFR For Non-African Americans > 60 (> 60)
[2017-04-14 06:36] LABS: Bilirubin,Total < 0.3 mg/dL (0.2-1.2)
[2017-04-14 07:26] VITALS: BP 103/61
[2017-04-14] MEDS: Budesonide/Formoterol 160/4.5 MDI IH SCH (08:07)
[2017-04-14] MEDS: Tiotropium 18 MCG inhalation IH SCH (08:08)
[2017-04-14] MEDS: cephALEXin 500 MG CAPSULE PO SCH (08:35)
[2017-04-14] MEDS: Diltiazem CD (24hr) 180 MG CAPSULE PO SCH (08:35)
[2017-04-14] MEDS: *HR* Rivaroxaban 10 MG TABLET PO SCH (08:35)
[2017-04-14] MEDS: Metoprolol XL (24 HR) Succ 50 MG TAB.ER.24H PO SCH (08:35)
[2017-04-14] MEDS: Aspirin 81 MG TAB.CHEW PO SCH (08:35)
[2017-04-14] MEDS: *HR* Amiodarone 200 MG TABLET PO SCH (08:36)
[2017-04-14] MEDS: Insulin DETEMIR 100 UNIT/ML X5UNITS SQ SCH (08:36)
--- NOTE | 2017-04-14 13:04 | Physician Discharge Referral ---
ExtendedCare Referral Info Transfer To: snf Provider in Charge: everardo Provider in Charge after Transfer: PCP Institutional Level of Care: Skilled - Diagnosis (1) COPD (chronic obstructive pulmonary disease) Status: Chronic (2) Afib Status: Chronic (3) Cardiomyopathy Status: Acute (4) Foot ulcer Status: Acute (5) DVT prophylaxis Status: Acute (6) Diabetes mellitus with neuropathy Status: Acute (7) Kdzcn-do-akvfjki kidney injury Status: Acute - Transfer Medications Home Medications: Amiodarone [Cordarone] 200 mg PO DAILY 04/28/15 [History] Aspirin 81 mg PO DAILY 04/28/15 [History] Atorvastatin [Lipitor] 40 mg PO HS 04/28/15 [History] Citalopram [CeleXA] 40 mg PO DAILY 04/28/15 [History] Docosahexanoic Acid/Epa [Fish Oil Concentrate Softgel] 1 each PO DAILY 04/28/15 [History] Ferrous Sulfate 325 mg PO BIDWM 04/28/15 [History] Garlic 1,000 mg PO DAILY 04/28/15 [History] GlipiZIDE XL (24 HR) [Glucotrol XL] 20 mg PO QAM 04/28/15 [History] Insulin DETEMIR [Levemir] 70 units SQ BID 04/28/15 [History] SitaGLIPtin [Januvia] 100 mg PO DAILY 04/28/15 [History] Albuterol Sulfate [Proair Hfa] 2 puff IH Q4H PRN 01/25/17 [History] Budesonide/Formoterol 160/4.5 [Symbicort 160/4.5] 2 puff IH BIDR 01/25/17 [ History] Metoprolol Succinate 200 mg PO DAILY 01/25/17 [History] Oxygen 2 l NS CONT 02/03/17 [History] Furosemide [Lasix] 60 mg PO BID #180 tab 02/08/17 [Rx] Dextrose Gel [Gluctose] 30 gm PO ONCE PRN #0 gel..gram. 02/23/17 [Rx] Glucagon, Human Recombinant [Glucagen] 1 mg IM ONCE PRN #0 vial 02/23/17 [Rx] Nicotine Patch [Nicoderm] 21 mg TD DAILY #30 patch.td24 02/23/17 [Rx] Nitroglycerin 0.4 mg SL Q5MIN PRN #0 tab.subl 02/23/17 [Rx] Potassium Chloride 8 meq PO DAILY tablet.er 02/23/17 [Rx] Tiotropium [Spiriva] 18 mcg IH 0800 #30 inh 02/23/17 [Rx] metFORMIN [Glucophage] 1,000 mg PO BIDWM tablet 02/23/17 [Rx] Diltiazem HCl [Diltiazem 24Hr Cd] 180 mg PO BID 04/06/17 [History] Insulin LISPRO [HumaLOG] 4 - 16 units SQ TIDAC 04/06/17 [History] Meclizine HCl [Verticalm] 25 - 50 mg PO Q4H PRN 04/06/17 [History] Rivaroxaban [Xarelto] 20 mg PO DAILY 04/06/17 [History] Allergies/Adverse Reactions: Allergies bupropion [From Wellbutrin] Allergy (Verified 04/28/15 08:53) Difficulty Breathing codeine Allergy (Verified 04/28/15 08:53) Difficulty Breathing Opioids-Meperidine and Related [Opioids-Meperidine & Related] Allergy (Verified 04/28/15 08:53) Difficulty Breathing - Respiratory Orders Smoking Cessation: Smoking cessation has been advised. For more information, call the [place] Tobacco Quit Line at 7-431-ESIY-NOW. CERTIFICATION: I certify that the transfer of the above named patient to an Extended Care Facility is necessary for the continuing treatment of the diagnosis listed. The above information is true and accurate reflection of patient's current condition. Confidential - Redisclosure prohibited without a patient's written consent.
--- NOTE | 2017-04-14 13:08 | Discharge Summary ---
Date of Encounter: 04/14/17 Time of Encounter: 13:06 - Discharge Diagnosis (1) COPD (chronic obstructive pulmonary disease) Priority: Secondary Status: Chronic Qualifiers: COPD type: unspecified COPD Qualified Code(s): J44.9 - Chronic obstructive pulmonary disease, unspecified (2) Afib Priority: Secondary Status: Chronic Qualifiers: Atrial fibrillation type: paroxysmal Qualified Code(s): I48.0 - Paroxysmal atrial fibrillation (3) Cardiomyopathy Priority: Secondary Status: Acute Qualifiers: Cardiomyopathy type: unspecified Qualified Code(s): I42.9 - Cardiomyopathy , unspecified (4) Foot ulcer Priority: Primary Status: Acute Qualifiers: Laterality: left Non-pressure ulcer stage: unspecified non-pressure ulcer stage Qualified Code(s): L97.529 - Non-pressure chronic ulcer of other part of left foot with unspecified severity (5) DVT prophylaxis Priority: Secondary Status: Acute (6) Diabetes mellitus with neuropathy Priority: Secondary Status: Acute Qualifiers: Diabetes mellitus type: type 2 Diabetes mellitus 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 terminal insulin use: unspecified 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 terminal insulin use status Qualified Code(s): E11.40 - Type 2 diabetes mellitus with diabetic neuropathy, unspecified (7) Cotlj-ep-llihfyg kidney injury Priority: Secondary Status: Acute Qualifiers: Acute renal failure type: unspecified Chronic kidney disease stage: stage 3 (moderate) Qualified Code(s): N17.9 - Acute kidney failure, unspecified; N18.3 - Chronic kidney disease, stage 3 (moderate) - Discharge Medications Home Medications: Amiodarone [Cordarone] 200 mg PO DAILY 04/28/15 [History] Aspirin 81 mg PO DAILY 04/28/15 [History] Atorvastatin [Lipitor] 40 mg PO HS 04/28/15 [History] Citalopram [CeleXA] 40 mg PO DAILY 04/28/15 [History] Docosahexanoic Acid/Epa [Fish Oil Concentrate Softgel] 1 each PO DAILY 04/28/15 [History] Ferrous Sulfate 325 mg PO BIDWM 04/28/15 [History] Garlic 1,000 mg PO DAILY 04/28/15 [History] GlipiZIDE XL (24 HR) [Glucotrol XL] 20 mg PO QAM 04/28/15 [History] Insulin DETEMIR [Levemir] 70 units SQ BID 08/17/15 [History] SitaGLIPtin [Januvia] 100 mg PO DAILY 04/28/15 [History] Albuterol Sulfate [Proair Hfa] 2 puff IH Q4H PRN 01/25/17 [History] Budesonide/Formoterol 160/4.5 [Symbicort 160/4.5] 2 puff IH BIDR 01/25/17 [ History] Metoprolol Succinate 200 mg PO DAILY 01/25/17 [History] Oxygen 2 l NS CONT 02/03/17 [History] Furosemide [Lasix] 60 mg PO BID #180 tab 02/08/17 [Rx] Dextrose Gel [Gluctose] 30 gm PO ONCE PRN #0 gel..gram. 02/23/17 [Rx] Glucagon, Human Recombinant [Glucagen] 1 mg IM ONCE PRN #0 vial 02/23/17 [Rx] Nicotine Patch [Nicoderm] 21 mg TD DAILY #30 patch.td24 02/23/17 [Rx] Nitroglycerin 0.4 mg SL Q5MIN PRN #0 tab.subl 02/23/17 [Rx] Potassium Chloride 8 meq PO DAILY tablet.er 02/23/17 [Rx] Tiotropium [Spiriva] 18 mcg IH 0800 #30 inh 02/23/17 [Rx] metFORMIN [Glucophage] 1,000 mg PO BIDWM tablet 02/23/17 [Rx] Diltiazem HCl [Diltiazem 24Hr Cd] 180 mg PO BID 04/06/17 [History] Insulin LISPRO [HumaLOG] 4 - 16 units SQ TIDAC 04/06/17 [History] Meclizine HCl [Verticalm] 25 - 50 mg PO Q4H PRN 04/06/17 [History] Rivaroxaban [Xarelto] 20 mg PO DAILY 04/06/17 [History] Budesonide/Formoterol 160/4.5 [Symbicort 160/4.5] 2 puff IH BIDR #10 mg [Rx] Collagenase Oint [Santyl] 1 appl TP DAILY 04/14/17 [Rx] cephALEXin [Keflex] 500 mg PO BID #10 mg 04/14/17 [Rx] Allergies/Adverse Reactions: Allergies bupropion [From Wellbutrin] Allergy (Verified 04/28/15 08:53) Difficulty Breathing codeine Allergy (Verified 04/28/15 08:53) Difficulty Breathing Opioids-Meperidine and Related [Opioids-Meperidine & Related] Allergy (Verified 04/28/15 08:53) Difficulty Breathing Date of admission: 04/06/17 19:59 Primary care physician: PCP NONE Consults: 04/06/17 20:06 Consult to Podiatry [CONS] Routine Consulting Provider: Podiatry [facility] Reason for Consult: left big toe gangrene Call Completed: No 04/10/17 13:35 Consult to Occupational Therapy [CONS] Routine Comment: Evaluate, develop and implement POC Reason for Consult: evaluate for need for Rehab Consult to Physical Therapy [CONS] Routine Comment: Evaluate, develop and implement POC Reason for Consult: evaluate for Rehab Discharging clinician: Silvia Ramos Anticipated date of discharge: 04/14/17 - Patient Status Disposition: Transfer SNF Condition: Fair Overall status at discharge: patient is progressing back to baseline - Discharge Instructions Follow Up With: Reese Christian CNP [Partnered Physician] - 04/25/17 2:00 pm Damian Seymour MD [Non-Partnered Physician] - - Diet and Activity Activity: resume usual activities as tolerated Diet: advance to your usual diet, diabetic diet, low fat, low cholesterol, low salt diet Hospital course: Mr. Diaz is a 71 year old male . He has positive medical history significant for diabetes hypertension diastolic congestive heart failure, morbid obesity and chronic kidney disease. He was admitted for left diabetic foot ulcer and please see details in podiatry notes. He was initially treated with vancomycin and Zosyn and then later switched to Keflex which she will finish in next 5 days. His blood cultures were negative. Podiatry feels that with the wound care his wound should improve. He was diuresed during this admission. At this time he is hemodynamically stable and planned to be sent to [facility]. - Time Spent with Patient Total time spent providing and/or coordinating discharge services: Greater than 30 minutes - Constitutional Vitals: Temp Pulse Resp BP Pulse Ox 98.0 F 82 16 103/61 98 04/14/17 07:00 04/14/17 07:00 04/14/17 08:11 04/14/17 07:00 04/14/17 08:46 General appearance: Present: A&O X 3, morbidly obese, no acute distress, answers questions appropriately - Head Head exam: Present: atraumatic, normocephalic - Eye Eye exam: Present: PERRL, conjuntiva pink, sclera anicteric Pupils: Present: PERRL - Neck Neck exam general surgery: Present: supple, trachea midline. Absent: lymphadenopathy - Respiratory Respiratory exam: Present: CTAB. Absent: accessory muscle use, rales, rhonchi, wheezes - Cardiovascular Cardiovascular exam: Present: RRR, +S1, +S2. Absent: diastolic murmur, gallop, rubs, systolic murmur - GI/Abdominal GI/Abdominal exam: Present: normal bowel sounds, soft, no peritoneal signs. Absent: distended, tenderness - Extremities Exam Extremities exam: Present: warm, radial pulses palpable and symetrical. Absent : calf tenderness, cyanotic, pedal edema Additional comments: Left foot as per podiatry - Neurological Exam Neurological exam: Present: CN II-XII intact, oriented X3, no focal deficits. Absent: pronater drift, facial droop, speech deficit - Skin Skin exam: Present: dry, intact
--- NOTE | 2017-04-14 14:42 | Podiatry Progress Note ---
Date of Encounter: 04/14/17 Time of Encounter: 12:15 - Assessment and Plan (1) Foot ulcer Current Visit: Yes Status: Acute DFU to the plantar aspect of the left foot and posterior lateral aspect of the right heel. 100% yellow slough to both ulcerations, no probe to bone, no evidence of bacterial infection. Wound care ordered for Santyl ointment to both ulcerations with sterile 4x4 gauze and kerlix to the left foot and santyl with Allevyn to the right heel ulcer. Xrays obtained of both feet and no evidence of bony erosion or OM. Continue wound care as ordered. Continue Prevalon boot to right foot while in bed. Patient will need post op shoes bilaterally to off load pressure and allow ulcerations to heal. Qualifiers: Laterality: left Non-pressure ulcer stage: unspecified non-pressure ulcer stage Qualified Code(s): L97.529 - Non-pressure chronic ulcer of other part of left foot with unspecified severity (2) Blister of toe of left foot Current Visit: Yes Status: Acute S/p deroofed blister of the left great toe. Overall significant improvement to the left great toe with decreased drainage. Continue calcium alginate dressing to the left great toe and betadine with 4x4 gauze to the interdigital webspaces between toes #1,#2, #3 BID or more if dressing is saturated. Recommend patient be discharged on oral Keflex for 10 days. Xrays obtained and no evidence of bony erosion or OM. Patient will require a post op surgical shoe to both feet. Continue wound care to DFU of both feet with Santyl ointment upon discharge. Continue use of Prevalon boot to the right foot while in bed to keep pressure alleviated from the right heel. Patient will need to f/u in Podiatry clinic with Reese oconnor in a week of discharge from the hospital. 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 2 Diabetes mellitus retirement insulin use: unspecified retirement insulin use status Qualified Code(s): E11.40 - Type 2 diabetes mellitus with diabetic neuropathy, unspecified (4) Congestive heart failure Current Visit: Yes Status: Chronic Qualifiers: Congestive heart failure type: unspecified congestive heart failure type Congestive heart failure chronicity: unspecified congestive heart failure chronicity Qualified Code(s): I50.9 - Heart failure, unspecified (5) Morbid obesity with BMI of 45.0-49.9, adult Current Visit: Yes Status: Chronic (6) Acute and chronic respiratory failure Current Visit: No Status: Acute Qualifiers: Respiratory failure complication: hypoxia Qualified Code(s): J96.21 - Acute and chronic respiratory failure with hypoxia (7) Chronic venous insufficiency Current Visit: Yes Status: Acute Clear drainage seeping from BLE, recommend cleansing legs daily with mild soap and water. Apply abd pads to anterior tibial regions of BLE with kerlix from toes to tibia BID. (8) Onychomycosis Current Visit: Yes Status: Acute Toe nails #3 through #5 right and #2 through #5 left are thick, elongated and mycotic. Recommend diabetic foot care in Podiatry clinic. Subjective Interval history: Patient is sitting up in bed with dressings removed. Patient had a blister of the left great toe deroofed on 04/07/17. Calcium alginate and Betadine dressings have been ordered to the left great toe and to the interdigital webspace between toes #1,#2,#3 of the left foot. Santyl ointment is being applied to both DFU of both feet. Patient has a prevalon boot for the right foot to keep pressure away from the ulcer of the right heel. Patient has a post op shoes in the room for both feet. No c/o pain, fever or chills overnight. Patient states he is waiting to be accepted at an ECF. Per nurse patient will most likely be discharged today. Objective - Vital Signs Vital Signs: Vital Signs Temp Pulse Resp BP Pulse Ox 04/14/17 08:46 98 04/14/17 08:11 16 98 04/14/17 07:00 98.0 F 82 17 103/61 94 04/14/17 03:50 97.5 F L 89 24 117/77 94 04/13/17 22:35 98 04/13/17 20:12 15 98 04/13/17 19:10 97.8 F 81 18 114/83 95 04/13/17 18:45 97.5 F L 99 12 130/77 96 04/13/17 15:52 97.5 F L 75 16 118/73 98 Intake and Output 04/13/17 04/14/17 04/14/17 23:59 07:59 15:59 Intake Total 0 / 0 600 / 600 960 / 960 Output Total 0 / 0 450 / 450 450 / 450 Balance 0 / 0 150 / 150 510 / 510 Intake: Oral 0 / 0 600 / 600 960 / 960 Output: Urine 0 / 0 450 / 450 450 / 450 Other: Meal Tomatoes, seeds Lunch Percent of Meal Consumed 100% # Urine Diapers 6 1 Blood Glucose* 183 151 217 - Exam Exam: General appearance: alert awake oriented X 3. Calm and pleasant, no acute distress.. Vascular: Pedal pulses +2/4 DP/PT , Edema graded at 1+/4, Skin Temperature warm , capillary refill time is immediate to digits. Neurologic: Sensation diminished with light touch to both feet. Integument: hemosiderin staining to BLE and feet. Clear fluid seeping from anterior tibial region of BLE. Left great toe: s/p deroofed blister, wound is superficial, base of wound is pink with moderate amount of serous drainage. Macerated wound edges, decreased macerated skin to the interdigital webspace between toes #1,#2,#3 left foot. Ulceration #1 to the left foot plantar aspect measuring 1cm in length x 1 cm in width x 0.3 cm in depth with 100% yellow slough, light periwound erythema, no streaking, no pus, no odor, no probe to bone, no fluctuance, no sinus tracts, no tunneling, no warmth. Ulceration #2 to the right posterior heel lateral aspect measuring 1cm in length x 1 cm in width x 0.3 cm in depth with 100% yellow slough, light periwound erythema, no streaking, no pus, no odor, no probe to bone, no fluctuance, no sinus tracts, no tunneling, no warmth. Dried scab to the left lateral foot and dorsal aspect of toe #2 left foot. Abrasion to the dorsal aspect of toe #2 right foot. No nails present to toe #1 bilaterally and #2 right foot. All other toe nails are thick, elongated and mycotic. - Lab Result Diagrams: 04/14/17 06:07 04/14/17 06:07 Labs: Abnormal lab results RBC 3.34 M/mcL (4.19-5.50) L 04/14/17 06:07 Hgb 8.8 g/dL (12.9-16.9) L 04/14/17 06:07 Hct 30.1 % (37.5-50.1) L 04/14/17 06:07 MCH 26.3 pg (28.0-33.3) L 04/14/17 06:07 MCHC 29.2 g/dL (31.6-35.5) L 04/14/17 06:07 RDW 21.0 % (11.5-14.5) H 04/14/17 06:07 Plt Count 464 K/mcL (140-400) H 04/14/17 06:07 MPV 9.0 fL (9.4-12.4) L 04/14/17 06:07 Platelet Estimate Slight increase (Normal) H 04/06/17 16:49 Hypochromasia Present (Not Present) A 04/06/17 16:49 Anisocytosis 3+ (Not Present) A 04/06/17 16:49 PT 25.6 Seconds (9.4-12.1) H 04/06/17 16:47 APTT 37.6 Seconds (26.0-36.0) H 04/06/17 16:47 BUN 53 mg/dL (8-26) H 04/14/17 06:07 BUN/Creatinine Ratio 45 (6-26) H 04/14/17 06:07 Glucose 132 mg/dL (70-99) H 04/14/17 06:07 POC Glucose 229 (58-89) H 04/13/17 16:39 Calculated Osmolality 302 (280-300) H 04/14/17 06:07 Lactic Acid 2.4 mmol/L (0.5-2.2) H 04/06/17 18:52 Calcium 8.4 mg/dL (8.6-10.8) L 04/14/17 06:07 Phosphorus 5.3 mg/dL (2.3-4.7) H 04/11/17 05:46 B-Natriuretic Peptide 667 pg/mL (0-100) H 04/06/17 16:49 Serum Total Protein 5.9 g/dL (6.0-8.3) L 04/14/17 06:07 Albumin 2.1 g/dL (3.5-5.0) L 04/14/17 06:07 Globulin 3.8 g/dL (2.4-3.5) H 04/14/17 06:07 Albumin/Globulin Ratio 0.6 (1.1-2.2) L 04/14/17 06:07 Consult Discharge Plan - Plan Instructions: Diabetes Mellitus Type 2 in Adults (DC) Referrals: Reese Christian CNP [Partnered Physician] - 04/25/17 2:00 pm Damian Seymour MD [Non-Partnered Physician] -
[2017-04-14] MEDS ORDERED: Aminoglycoside Consult 1 EACH MC ONE (16:13)
== END 2017-04-14 16:14 | DRG 291 ==
LOC: EMEROO 15:07 → 2NENU 15:07
PROVIDERS: ADMIT Nurse Practitioner Acute Care; ATTEND Internal Medicine

== ENCOUNTER 2017-04-22 18:55 | Inpatient (IN) ==
--- NOTE | 2017-04-22 19:14 | Emergency Department Note ---
Disposition Clinical Impression: Acute congestive heart failure Qualifiers: Congestive heart failure type: unspecified congestive heart failure type Qualified Code(s): I50.9 - Heart failure, unspecified Disposition: Admitted As Inpatient Condition: Fair Referrals: NONE,PCP [Non-Partnered Physician] - Forms: ED Satisfaction Letter Time of Disposition: 20:54 SOB HPI - General Chief Complaint: ED Shortness of Breath/Dyspnea Stated Complaint: WESLEY, Testicular Swelling Time Seen by Provider: 04/22/17 19:08 Source: patient, EMS Mode of arrival: EMS Limitations: no limitations Nursing Notes Reviewed: Yes Vital Signs Reviewed: Yes - History of Present Illness 71-year-old with history CHF comes in with increasing lower extremity edema and swelling of the scrotum does have some of those increase in size of his testicles were left greater than right. Also complains of increasing shortness of breath. Patient is resident of the [facility] had a chest x-ray today showed old right lower lobe pneumonia. Pt Subjective Complaint: shortness of breath, cough Onset (ago): day(s) Severity: moderate Consistency/Duration: constant Improves with: nothing Worsens with: exertion Known history of: congestive heart failure Associated symptoms: Reports: cough. Denies: fever Treatment prior to arrival: none Cough present: Yes Cough Description: Involuntary Cough Frequency: Intermittent - Related Data Home Medications Medication Instructions Recorded Confirmed Amiodarone [Cordarone] 200 mg PO DAILY 04/28/15 04/06/17 Aspirin 81 mg PO DAILY 04/28/15 04/06/17 Atorvastatin [Lipitor] 40 mg PO HS 04/28/15 04/06/17 Citalopram [CeleXA] 40 mg PO DAILY 04/28/15 04/06/17 Docosahexanoic Acid/Epa [Fish Oil 1 each PO DAILY 04/28/15 04/06/17 Concentrate Softgel] Ferrous Sulfate 325 mg PO BIDWM 04/28/15 04/06/17 Garlic 1,000 mg PO DAILY 04/28/15 04/06/17 GlipiZIDE XL (24 HR) [Glucotrol XL] 20 mg PO QAM 04/28/15 04/06/17 Insulin DETEMIR [Levemir] 70 units SQ BID 04/28/15 04/06/17 SitaGLIPtin [Januvia] 100 mg PO DAILY 04/28/15 04/06/17 Albuterol Sulfate [Proair Hfa] 2 puff IH Q4H PRN 01/25/17 04/06/17 Budesonide/Formoterol 160/4.5 2 puff IH BIDR 01/25/17 04/06/17 [Symbicort 160/4.5] Metoprolol Succinate 200 mg PO DAILY 01/25/17 04/06/17 Oxygen 2 l NS CONT 02/03/17 04/06/17 Diltiazem HCl [Diltiazem 24Hr Cd] 180 mg PO BID 04/06/17 04/06/17 Insulin LISPRO [HumaLOG] 4 - 16 units SQ TIDAC 04/06/17 04/06/17 Meclizine HCl [Verticalm] 25 - 50 mg PO Q4H PRN 04/06/17 04/06/17 Rivaroxaban [Xarelto] 20 mg PO DAILY 04/06/17 04/06/17 Previous Rx's Medication Instructions Recorded Furosemide [Lasix] 60 mg PO BID #180 tab 02/08/17 Dextrose Gel [Gluctose] 30 gm PO ONCE PRN #0 gel..gram. 02/23/17 Glucagon, Human Recombinant 1 mg IM ONCE PRN #0 vial 02/23/17 [Glucagen] Nicotine Patch [Nicoderm] 21 mg TD DAILY #30 patch.td24 02/23/17 Nitroglycerin 0.4 mg SL Q5MIN PRN #0 tab.subl 02/23/17 Potassium Chloride 8 meq PO DAILY tablet.er 02/23/17 Tiotropium [Spiriva] 18 mcg IH 0800 #30 inh 02/23/17 metFORMIN [Glucophage] 1,000 mg PO BIDWM tablet 02/23/17 Budesonide/Formoterol 160/4.5 2 puff IH BIDR #10 mg 04/14/17 [Symbicort 160/4.5] Collagenase Oint [Santyl] 1 appl TP DAILY 04/14/17 cephALEXin [Keflex] 500 mg PO BID #10 mg 04/14/17 Allergies Allergy/AdvReac Type Severity Reaction Status Date / Time bupropion [From Wellbutrin] Allergy Difficulty Verified 04/28/15 08:53 Breathing codeine Allergy Difficulty Verified 04/28/15 08:53 Breathing Opioids-Meperidine and Allergy Difficulty Verified 04/28/15 08:53 Related Breathing [Opioids-Meperidine & Related] All systems ED: reviewed and negative except as stated. Constitutional: Denies: fever, chills, weakness, weight change Eyes: Denies: eye pain, eye discharge, vision change ENT ED: Denies: ear pain, throat pain, dental pain, hearing loss, epistaxis, congestion, dysphagia Cardiovascular: Denies: chest pain, palpitations, dyspnea on exertion, edema, syncope Respiratory: Reports: dyspnea. Denies: cough, wheezes, hemoptysis, stridor Gastrointestinal: Denies: abdominal pain, nausea, vomiting, diarrhea, constipation, hematemesis, melena, hematochezia Genitourinary: Denies: urgency, dysuria, frequency, hematuria Musculoskeletal: Reports: other (Lower extremity swelling). Denies: back pain, neck pain, arthralgia, myalgia Integumentary: Denies: rash, abrasion, lesions Neurological: Denies: headache, weakness, numbness, paresthesias, confusion, abnormal gait, vertigo Psychiatric: Denies: anxiety, depression, suicidal thoughts, homicidal thoughts , auditory hallucinations, visual hallucinations Endocrine: Denies: fatigue Hematological/Lymphatic: Denies: easy bleeding, easy bruising Allergic/Immunologic: Denies: facial swelling, urticaria Past Medical History - Past Medical History Medical history: Reports: arthritis, atrial fibrillation, CHF, COPD, diabetes, hyperlipidemia, hypertension Surgical history: Reports: orthopedic, other, pacemaker/AICD Psychiatric history: Reports: no psych history - Social History Smoking Status: Former smoker Smokeless Tobacco Status: No Alcohol use: Reports: none Drug use: Reports: marijuana Physical Exam - General Limitations: no limitations General appearance: alert - Head Head exam: atraumatic - Eye Eye exam: Present: normal appearance - ENT ENT exam: normal exam, normal oropharynx, mucous membranes moist - Neck Neck exam: Present: normal inspection, full ROM, trachea midline - Chest Chest inspection: Present: normal inspection, symmetric chest wall rise - Respiratory Respiratory exam: Present: prolonged expiratory phase, other (Rales present) - Cardiovascular Cardiovascular exam: Present: regular rate, normal rhythm, normal heart sounds - Abdominal Exam Abdominal exam: Present: soft, Non-Tender. Absent: tenderness, distention, guarding, rebound, rigidity - Male Scrotal exam: testicular swelling: bilateral - Extremities Exam Extremities exam: Present: normal inspection, full ROM. Absent: tenderness, pedal edema - Expanded Lower Extremity Exam Neurovascular/Tendon exam: Absent: motor deficit, sensory deficit, tendon deficit Gait: not tested/not observed - Back Exam Back exam: Present: normal inspection, full ROM. Absent: tenderness - Neurological Exam Neurological exam: Present: alert, oriented X3 - Psychiatric Psychiatric exam: Present: normal affect, normal mood - Skin Skin exam: Present: warm, dry, intact, normal color Course - Reevaluation(s) Reevaluation #1: 71-year-old with increasing shortness of breath with a history of CHF. BNP is elevated chest x-ray shows mild failure. No lower extremity edema scrotal edema. He did cover him for antibiotics although his scrotal edema may be related to failure versus a cellulitis. She will be admitted. Time: 20:53 - Consultations Consultation #1: Discussed with , admit. Time: 20:54 Vital Signs Temperature 98.5 F 04/22/17 18:58 Pulse Rate 85 04/22/17 18:58 Respiratory Rate 16 04/22/17 18:58 Blood Pressure 116/65 04/22/17 18:58 O2 Sat by Pulse Oximetry 100 04/22/17 18:58 Temperature 98.5 F 04/22/17 18:58 Pulse Rate 78 04/22/17 19:39 Respiratory Rate 18 04/22/17 19:39 Blood Pressure 100/55 04/22/17 19:39 O2 Sat by Pulse Oximetry 96 04/22/17 19:39 Oxygen Delivery Oxygen Delivery Nasal Cannula Shortness of Breath/Dyspnea - Lab Data Result diagrams: 04/22/17 19:40 04/22/17 19:40 Lab Results 04/22/17 04/22/17 04/22/17 Range/Units 19:40 19:40 19:40 WBC 11.9 H (4.3-11.1) K/mcL RBC 3.03 L (4.19-5.50) M/mcL Hgb 8.1 L (12.9-16.9) g/dL Hct 27.8 L (37.5-50.1) % MCV 91.7 (83.0-100.0) fL MCH 26.7 L (28.0-33.3) pg MCHC 29.1 L (31.6-35.5) g/dL RDW 19.9 H (11.5-14.5) % Plt Count 462 H (140-400) K/mcL MPV 9.0 L (9.4-12.4) fL Immature Gran % 0.3 (0-4) % Seg Neutrophils % 82.2 % Lymphocytes % 4.8 % Monocytes % 9.7 % Eosinophils % 2.5 % Basophils % 0.5 % Neutrophils # 9.8 H (1.6-8.9) K/mcL Lymphocytes # 0.6 (0.6-4.6) K/mcL Monocytes # 1.2 (0.0-1.3) K/mcL Eosinophils # 0.3 (0.0-0.6) K/mcL Basophils # 0.1 (0.0-0.2) K/mcL Immature Plt Fraction 1.7 (1.1-6.1) % Polychromasia 1+ A (Not Present) Hypochromasia Present A (Not Present) Anisocytosis 1+ A (Not Present) Sodium 142 (136-145) mEq/L Potassium 3.1 L (3.5-4.5) mEq/L Chloride 105 (98-109) mEq/L Carbon Dioxide 26 (19-29) mEq/L BUN 40 H (8-26) mg/dL Creatinine 1.22 (0.72-1.25) mg/dL Est GFR ( Amer) > 60 (> 60) Est GFR (Non-Af Amer) 58 L (> 60) BUN/Creatinine Ratio 33 H (6-26) Glucose 62 L (70-99) mg/dL Calculated Osmolality 302 H (280-300) Lactic Acid 2.8 H (0.5-2.2) mmol/L Calcium 8.5 L (8.6-10.8) mg/dL Troponin I (0-0.03) ng/mL B-Natriuretic Peptide (0-100) pg/mL 04/22/17 04/22/17 Range/Units 19:40 19:40 WBC (4.3-11.1) K/mcL RBC (4.19-5.50) M/mcL Hgb (12.9-16.9) g/dL Hct (37.5-50.1) % MCV (83.0-100.0) fL MCH (28.0-33.3) pg MCHC (31.6-35.5) g/dL RDW (11.5-14.5) % Plt Count (140-400) K/mcL MPV (9.4-12.4) fL Immature Gran % (0-4) % Seg Neutrophils % % Lymphocytes % % Monocytes % % Eosinophils % % Basophils % % Neutrophils # (1.6-8.9) K/mcL Lymphocytes # (0.6-4.6) K/mcL Monocytes # (0.0-1.3) K/mcL Eosinophils # (0.0-0.6) K/mcL Basophils # (0.0-0.2) K/mcL Immature Plt Fraction (1.1-6.1) % Polychromasia (Not Present) Hypochromasia (Not Present) Anisocytosis (Not Present) Sodium (136-145) mEq/L Potassium (3.5-4.5) mEq/L Chloride (98-109) mEq/L Carbon Dioxide (19-29) mEq/L BUN (8-26) mg/dL Creatinine (0.72-1.25) mg/dL Est GFR ( Amer) (> 60) Est GFR (Non-Af Amer) (> 60) BUN/Creatinine Ratio (6-26) Glucose (70-99) mg/dL Calculated Osmolality (280-300) Lactic Acid (0.5-2.2) mmol/L Calcium (8.6-10.8) mg/dL Troponin I 0.00 (0-0.03) ng/mL B-Natriuretic Peptide 490 H (0-100) pg/mL - EKG Data EKG attestation: Yes I reviewed and interpreted this EKG. Rate: Reports: normal Rhythm: Reports: A.Fib When compared to previous EKG there are: no significant changes (04/07/2017) Interpretation: Reports: no acute changes
[2017-04-22 19:47] LABS: Basophils % 0.5 %; Eosinophils % 2.5 %; Hemoglobin 8.1 g/dL (12.9-16.9); Immature Granulocytes % 0.3 % (0-4); Immature Platelets 1.7 % (1.1-6.1)
[2017-04-22 19:50] LABS: Basophils # 0.1 K/mcL (0.0-0.2); Eosinophils # 0.3 K/mcL (0.0-0.6); Hematocrit 27.8 % (37.5-50.1); Lymphocytes # 0.6 K/mcL (0.6-4.6); Lymphocytes % 4.8 %; Mean Corpuscular HGB Conc 29.1 g/dL (31.6-35.5); Mean Corpuscular Hemoglobin 26.7 pg (28.0-33.3); Mean Corpuscular Volume 91.7 fL (83.0-100.0); Monocytes # 1.2 K/mcL (0.0-1.3); Monocytes % 9.7 %; Neutrophils # 9.8 K/mcL (1.6-8.9); Platelet Count 462 K/mcL (140-400); Red Blood Count 3.03 M/mcL (4.19-5.50); Red Cell Distribution Width 19.9 % (11.5-14.5); Segmented Neutrophils % 82.2 %
[2017-04-22 19:59] LABS: BUN/Creatinine Ratio 33 (6-26); Blood Urea Nitrogen 40 mg/dL (8-26); Calcium 8.5 mg/dL (8.6-10.8); Carbon Dioxide 26 mEq/L (19-29); Chloride 105 mEq/L (98-109); Glucose 62 mg/dL (70-99); Osmolality,Calculated 302 (280-300); Potassium 3.1 mEq/L (3.5-4.5); Sodium 142 mEq/L (136-145); eGFR For African Americans > 60 (> 60); eGFR For Non-African Americans 58 (> 60)
[2017-04-22 20:08] LABS: Hypochromasia Present (Not Present); Polychromasia 1+ (Not Present)
[2017-04-22 20:09] LABS: Anisocytosis 1+ (Not Present)
[2017-04-22] MEDS ORDERED: Furosemide 40 MG/4 ML VIAL IVP ONE (20:36)
[2017-04-22] MEDS ORDERED: Piperacillin/Tazobactam 3.375 GM in D5% in Water (Mini-Bag+) 100 ML IVPB ONE (20:36)
[2017-04-22] MEDS ORDERED: Nitroglycerin 0.4 MG TAB.SUBL SL PRN (22:32)
[2017-04-22] MEDS ORDERED: NON-FORMULARY MEDICATION 1 EACH EACH (Oxygen [Oxygen] 2 L) NS SCH (22:45)
[2017-04-22] MEDS ORDERED: Dextrose Gel 15 GM PO PRN ×2 (22:54)
[2017-04-22] MEDS ORDERED: D5% in Water 1,000 ML IVC PRN (22:54)
[2017-04-22] MEDS ORDERED: Naloxone 0.4 MG/ML INJ IVP PRN (22:57)
--- NOTE | 2017-04-22 23:14 | Internal Med History&Physical ---
<Luis Sutherland J - Last Filed: 04/22/17 23:22> Date of Encounter: 04/22/17 Time of Encounter: 23:12 Assessment and Plan (1) Acute exacerbation of CHF (congestive heart failure) Current visit: Yes Status: Acute Acute on chronic exacerbation of congestive heart failure. Presented to emergency department with increased lower extremity edema bilaterally difficulty in breathing and scrotal swelling. Chest x-ray revealed mild CHF. EKG obtained in the ED with no changes from prior EKG Troponin and ED -0.00 continue to cycle troponins Additional dose of Lasix given in the ED Maintain home dose of Lasix and add another 40 mg IV push 3 times a day to help with diuresis Continuous telemetry Continuous SPO2 Patient placed on nasal cannula at 2 L Strict I's and O's with a 1500 mL fluid restriction Daily weights Patton catheter for strict I's and O's Consulting social insurance adviser, PT OT, dietary, care for prevention, Additionally, consult and cardiology due to acute on chronic CHF exacerbation and for medication management. Qualifiers: Congestive heart failure type: combined Qualified Code(s): I50.43 - Acute on chronic combined systolic (congestive) and diastolic (congestive) heart failure (2) Iron deficiency anemia Current visit: Yes Status: Chronic History of iron deficiency anemia. Was at [facility] 01/2017 with hemoglobin less than 8. At that time GI had seen patient and colonoscopy was completed revealing multiple benign polyps. 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 We will continue to monitor hemoglobin and hematocrit with CBCs and continue ferrous sulfate Qualifiers: Iron deficiency anemia type: unspecified iron deficiency Qualified Code(s) : D50.9 - Iron deficiency anemia, unspecified (3) Edema extremities Current visit: Yes Status: Acute New bilateral lower extremity weeping edema. Patient is suffering from anasarca wound care consulted for preventative management. (4) Scrotal edema Current visit: Yes Status: Acute Acute scrotal edema with excoriation ongoing over the last 3 weeks and progressively getting worse. Scrotum and groin all throughout her weeping masslike bilateral lower shortness. Appears to be cellulitis Zosyn started in the ED to cover both gram-positive and gram-negative organisms. Plan is to continue Zosyn 3.75 every 8 hours. We will continue to assess for improvement and adjust antibiotics as necessary (5) Type 2 diabetes mellitus Current visit: Yes Status: Chronic Chronic type 2 diabetes being managed with subcutaneous insulin therapy with 3 times a day dosing with meals and long-acting glargine. We will place patient on sliding scale insulin coverage low corrective scale and monitor before meals and at bedtime. Continue long-acting insulin at home dose Qualifiers: Diabetes mellitus complication status: with unspecified complications Diabetes mellitus long term care phlebotomist insulin use: with long term care phlebotomist use Qualified Code(s) : E11.8 - Type 2 diabetes mellitus with unspecified complications; Z79.4 - retirement (current) use of insulin (6) COPD (chronic obstructive pulmonary disease) Current visit: No Status: Chronic History of COPD. Continue to monitor. Place on continuous pulse ox and on 2 L nasal cannula titrate as needed. Continue patient's Symbicort and place on DuoNeb's every 4 Scheduled Qualifiers: COPD type: unspecified COPD Qualified Code(s): J44.9 - Chronic obstructive pulmonary disease, unspecified (7) Hypokalemia Current visit: No Status: Acute Patient is hypokalemic upon this admission with a potassium of 3.1. We will start potassium 20 meq 3 times a day (8) DVT prophylaxis Current visit: Yes Status: Acute High risk for DVT due to prolonged immobility and atrial fibrillation history. will continue xarelto Internal Medicine - H&P: HPI Chief complaint: CHF, increase in lower extremity edema, difficulty breathing Admitted From: Long-term Nursing Facility Plans for Post Hospital Care: Transfer Inp Rehab Fac History of present illness: Mr. Diaz is a 71 year old male with a PMH of arthritis, A. fib, CHF, COPD, DM, HLD, HTN, and a pacemaker. Presented to [facility] on 04-22-17 with an increase in lower extremity edema and shortness of breath and scrotal swelling. Chest x- ray in the ED indicated mild CHF with loculated right pleural effusion. BNP result of 490. Chemistry unremarkable with the exception of a potassium of 3.1. CBC showed an increase in WBCs 11.9 and anemia with hemoglobin 8.1 hematocrit 27.8. The patient is a former smoker, has many medical comorbidities , and is a high risk for a coronary event. Troponin the ED however, resulted 0.00. At this time we will trend troponins. Additionally, Zosyn was started in the ED due to the scrotal swelling and excoriation. Additionally, the patient appears to be suffering from chronic iron deficiency anemia. Colonoscopy was completed in January 2017, multiple benign neoplasms. Plan is continue ferrous sulfate and continue to monitor. The patient is being admitted with a diagnosis of CHF and will be placed inpatient for further observation and workup. Past Med Surg Social Fam HX - Past Medical History Medical history: arthritis, atrial fibrillation, CHF, COPD, diabetes, hyperlipidemia, hypertension Psychiatric history: no psych history - Past Surgical History Surgical History: orthopedic, other, pacemaker/AICD - Social History Smoking Status: Former smoker Smokeless Tobacco Status: No Alcohol use: none Drug use: marijuana - Family History Father Hx Family Cardiac Disorders: Yes (Quadruple Bypass) Mother Family Member Ethnicity: Non- Living Status: Internal Medicine - H&P: Meds Amiodarone [Cordarone] 200 mg PO DAILY 04/28/15 [History] Aspirin 81 mg PO DAILY 04/28/15 [History] Atorvastatin [Lipitor] 40 mg PO HS 04/28/15 [History] Citalopram [CeleXA] 40 mg PO DAILY 04/28/15 [History] Docosahexanoic Acid/Epa [Fish Oil Concentrate Softgel] 1 each PO DAILY 04/28/15 [History] Ferrous Sulfate 325 mg PO BIDWM 04/28/15 [History] Garlic 1,000 mg PO DAILY 04/28/15 [History] GlipiZIDE XL (24 HR) [Glucotrol XL] 20 mg PO QAM 04/28/15 [History] Insulin DETEMIR [Levemir] 70 units SQ BID 04/28/15 [History] SitaGLIPtin [Januvia] 100 mg PO DAILY 04/28/15 [History] Albuterol Sulfate [Proair Hfa] 2 puff IH Q4H PRN 01/25/17 [History] Budesonide/Formoterol 160/4.5 [Symbicort 160/4.5] 2 puff IH BIDR 01/25/17 [ History] Metoprolol Succinate 200 mg PO DAILY 01/25/17 [History] Oxygen 2 l NS CONT 02/03/17 [History] Furosemide [Lasix] 60 mg PO BID #180 tab 02/08/17 [Rx] Dextrose Gel [Gluctose] 30 gm PO ONCE PRN #0 gel..gram. 02/23/17 [Rx] Glucagon, Human Recombinant [Glucagen] 1 mg IM ONCE PRN #0 vial 02/23/17 [Rx] Nicotine Patch [Nicoderm] 21 mg TD DAILY #30 patch.td24 02/23/17 [Rx] Nitroglycerin 0.4 mg SL Q5MIN PRN #0 tab.subl 02/23/17 [Rx] Potassium Chloride 8 meq PO DAILY tablet.er 02/23/17 [Rx] Tiotropium [Spiriva] 18 mcg IH 0800 #30 inh 02/23/17 [Rx] metFORMIN [Glucophage] 1,000 mg PO BIDWM tablet 02/23/17 [Rx] Diltiazem HCl [Diltiazem 24Hr Cd] 180 mg PO BID 04/06/17 [History] Insulin LISPRO [HumaLOG] 4 - 16 units SQ TIDAC 04/06/17 [History] Meclizine HCl [Verticalm] 25 - 50 mg PO Q4H PRN 04/06/17 [History] Rivaroxaban [Xarelto] 20 mg PO DAILY 04/06/17 [History] Collagenase Oint [Santyl] 1 appl TP DAILY 04/14/17 [Rx] Allergies bupropion [From Wellbutrin] Allergy (Verified 04/28/15 08:53) Difficulty Breathing codeine Allergy (Verified 04/28/15 08:53) Difficulty Breathing Opioids-Meperidine and Related [Opioids-Meperidine & Related] Allergy (Verified 04/28/15 08:53) Difficulty Breathing All Systems PM: A 10-system review of systems was performed and is negative for pertinent findings except as documented above in the HPI. - Constitutional Constitutional: fatigue, lethargy, weakness, weight loss (Of 20 pounds in the last 3 months per patient), no anorexia, no chills, no fever(s), no night sweats - EENT Eyes: no change in vision, no discharge, no pain, no photophobia Ears: no ear discharge, no ear pain, no tinnitus Nose, mouth and throat: no dysphagia, no nasal discharge, no neck pain, no sore throat - Cardiovascular Cardiovascular ROS IM: dyspnea, edema, orthopnea, no chest pain, no diaphoresis , no lightheadedness, no palpitations, no syncope - Respiratory Respiratory: dyspnea, dyspnea on exertion, no cough, no wheezing, no chest congestion, no excessive phlegm production - Gastrointestinal Gastrointestinal: no abdominal pain, no diarrhea, no hematemesis, no hematochezia, no melena, no nausea, no vomiting Additional comments: Admitted to decreased appetite - Genitourinary Genitourinary ROS male: scrotal swelling (Starting in the last few weeks and gradually increasing in size), no difficulty urinating, no dysuria - Musculoskeletal Musculoskeletal ROS IM: no numbness, no tingling - Integumentary Integumentary IM: erythema, other, no rash, no unusual bruising Additional comments: Continuous weeping of bilateral lower extremities and lower abdomen - Neurological Neurological ROS: no confusion, no convulsions, no focal weakness, no numbness, no tingling, no tremor(s) - Psychiatric Psychiatric: change in appetite - Hematologic/Lymphatic Hematologic/Lymphatic: no easy bruising - Constitutional Vitals: Temp Pulse Resp BP Pulse Ox 98.5 F 71 18 105/51 99 04/22/17 18:58 04/22/17 21:32 04/22/17 21:32 04/22/17 21:32 04/22/17 21:32 General appearance: Present: mild distress, A&O X 3, morbidly obese, answers questions appropriately - Head Head exam: Present: atraumatic, normocephalic - Eye Eye exam: Present: EOMI, PERRL, conjuntiva pink, sclera anicteric Pupils: Present: PERRL - Neck Neck exam general surgery: Present: supple, trachea midline. Absent: lymphadenopathy - Respiratory Respiratory exam: Present: CTAB, rales (Fine Rales auscultated anterior posterior lungs throughout), respiratory distress (Mild respiratory distress). Absent: accessory muscle use, rhonchi, wheezes - Cardiovascular Cardiovascular exam: Present: RRR, +S1, +S2. Absent: diastolic murmur, gallop, rubs, systolic murmur - GI/Abdominal GI/Abdominal exam: Present: firm (And round), normal bowel sounds, soft, no peritoneal signs. Absent: distended, tenderness - Extremities Exam Extremities exam: Present: warm, radial pulses palpable and symmetrical. Absent : calf tenderness, cyanotic, pedal edema - Expanded Lower Extremities Exam Lower Leg exam: Present: erythema, swelling (Edema noted bilateral lower extremities with excessive weeping) Ankle exam: Present: erythema, swelling Foot/Toe exam: Present: erythema, swelling - Neurological Exam Neurological exam: Present: CN II-XII intact, oriented X3, no focal deficits. Absent: pronater drift, facial droop, speech deficit - Expanded Neurological Exam Neuro motor strength exam: LUE: 4, RUE: 4, LLE: 4, RLE: 4 Coma Scale Eye Opening: Spontaneous Coma Scale Motor Response: Obeys Commands Coma Scale Verbal Response: Oriented Coma Scale Total: 15 - Skin Skin exam: Present: erythema, excoriation (Scrotal excoriation noted. Additionally, excoriation lower abdomen and laterally into folds of Groin), intact. Absent: diaphoretic Internal Med - H&P Results - Labs CBC & Chem 7: 04/22/17 19:40 04/22/17 19:40 - EKG Data When compared to previous EKG: there is no significant change - Diagnostic Studies Chest x-ray Status: image reviewed by me (Mild CHF noted) <Canelo Becerril - Last Filed: 04/23/17 00:00> Date of Encounter: 04/22/17 Internal Medicine - H&P: HPI History of present illness: Mr. Diaz is a 71 year old male All Systems PM: A 10-system review of systems was performed and is negative for pertinent findings except as documented above in the HPI. - Constitutional Vitals: Temp Pulse Resp BP Pulse Ox 98.5 F 71 18 110/67 99 04/22/17 18:58 04/22/17 21:32 04/22/17 23:15 04/22/17 23:15 04/22/17 21:32 Internal Med - H&P Results - Labs CBC & Chem 7: 04/22/17 19:40 04/22/17 19:40 - Attending Attestation I independently obtained history and examined this patient and my medical decision-making was reviewed with the nurse practitioner, Luis Sutherland. I agree with the documented findings, disposition and treatment plan as described. My findings are summarized below: He is in no acute distress. Heart is regular S1-S2. Lung exam reveals bilateral radials. Extremities with seeping and pitting edema, covered with Good wrapping. Plan: IV Lasix, PT OT, Patton catheter third due to urinary incontinence and high risk for skin breakdown. Daily weights and strict I's and O's, fluid restriction of 1500 mL daily.
[2017-04-22] MEDS ORDERED: Insulin DETEMIR 100 UNIT/ML X5UNITS SQ SCH (23:15)
[2017-04-22] MEDS ORDERED: INSULIN DETEMIR 70 UNIT SQ SCH (23:15)
[2017-04-22] MEDS: Ipratropium/Albuterol Neb 3 ML IH SCH (23:48)
[2017-04-23] MEDS: *HR* Dextrose 50 % in Water (Syg) 50 ML SYRINGE IVP PRN ×2 (00:13→00:47)
[2017-04-23 00:39] LABS: Hemoglobin A1C 5.4 %
[2017-04-23] MEDS: Potassium Chloride Elixir 20 MEQ/15 ML UDC PO SCH ×4 (01:42→21:19)
[2017-04-23] MEDS ORDERED: D10% in Water 500 ML IVC ONE (02:11)
[2017-04-23] MEDS ORDERED: D10% in Water 500 ML IVC SCH (02:15)
[2017-04-23 04:02] LABS: Immature Platelets 1.9 % (1.1-6.1); Lymphocytes % 4.1 %; Monocytes % 7.1 %; Red Cell Distribution Width 19.9 % (11.5-14.5)
[2017-04-23 04:04] LABS: Basophils # 0.1 K/mcL (0.0-0.2); Basophils % 0.4 %; Eosinophils # 0.1 K/mcL (0.0-0.6); Eosinophils % 0.7 %; Hematocrit 27.3 % (37.5-50.1); Hemoglobin 7.9 g/dL (12.9-16.9); Immature Granulocytes % 0.5 % (0-4); Lymphocytes # 0.6 K/mcL (0.6-4.6); Mean Corpuscular HGB Conc 28.9 g/dL (31.6-35.5); Mean Corpuscular Hemoglobin 26.6 pg (28.0-33.3); Mean Corpuscular Volume 91.9 fL (83.0-100.0); Mean Platelet Volume 9.2 fL (9.4-12.4); Monocytes # 1.1 K/mcL (0.0-1.3); Platelet Count 449 K/mcL (140-400); Red Blood Count 2.97 M/mcL (4.19-5.50); Segmented Neutrophils % 87.2 %
[2017-04-23] MEDS: Ipratropium/Albuterol Neb 3 ML IH SCH ×5 (04:13→20:31)
[2017-04-23 04:26] LABS: Alanine Aminotransferase 21 Units/L (0-55); Albumin 2.2 g/dL (3.5-5.0); Albumin/Globulin Ratio 0.6 (1.1-2.2); Alkaline Phosphatase 107 Units/L (38-126); Aspartate Amino Transferase 19 Units/L (5-34); BUN/Creatinine Ratio 32 (6-26); Blood Urea Nitrogen 38 mg/dL (8-26); Calcium 8.2 mg/dL (8.6-10.8); Carbon Dioxide 25 mEq/L (19-29); Chloride 104 mEq/L (98-109); Globulin 3.8 g/dL (2.4-3.5); Glucose 72 mg/dL (70-99); Osmolality,Calculated 298 (280-300); Potassium 3.2 mEq/L (3.5-4.5); Sodium 140 mEq/L (136-145); eGFR For African Americans > 60 (> 60); eGFR For Non-African Americans > 60 (> 60)
[2017-04-23 04:28] LABS: Bilirubin,Total < 0.3 mg/dL (0.2-1.2)
[2017-04-23] MEDS: Piperacillin/Tazobactam 3.375 GM in D5% in Water (Mini-Bag+) 100 ML IVPB SCH ×3 (06:34→21:18)
[2017-04-23 06:49] LABS: Hypochromasia Present (Not Present)
[2017-04-23 06:50] LABS: Anisocytosis 1+ (Not Present); Polychromasia 1+ (Not Present)
[2017-04-23] MEDS: Budesonide/Formoterol 160/4.5 MDI IH SCH ×2 (07:41→20:31)
[2017-04-23] MEDS ORDERED: Furosemide 40 MG TABLET PO SCH (08:00)
[2017-04-23] MEDS: Insulin LISPRO 300 UNITS/3 ML VIAL SQ SCH ×4 (09:36→21:21)
[2017-04-23] MEDS: *HR* Amiodarone 200 MG TABLET PO SCH (09:37)
[2017-04-23] MEDS: Metoprolol XL (24 HR) Succ 50 MG TAB.ER.24H PO SCH (09:37)
[2017-04-23] MEDS: Diltiazem CD (24hr) 180 MG CAPSULE PO SCH ×2 (09:37→21:20)
[2017-04-23] MEDS: *HR* Rivaroxaban 10 MG TABLET PO SCH (09:37)
[2017-04-23] MEDS: Nicotine 21 MG PATCH.TD24 TD SCH (09:37)
[2017-04-23] MEDS: Furosemide 40 MG/4 ML VIAL IVP SCH ×2 (09:37→18:15)
[2017-04-23] MEDS: Aspirin 81 MG TAB.CHEW PO SCH (09:37)
--- NOTE | 2017-04-23 13:02 | Cardiology Consult Note ---
Date of Encounter: 04/23/17 Time of Encounter: 12:59 Assessment and Plan (1) Acute congestive heart failure Current Visit: Yes Status: Acute Probably acute on chronic systolic and diastolic heart failure. LVEF in January was 45%, previously 55-60% - was not seen by Cardiology at that time. Repeat LVEF recent visit was also 45-50%. Unfortunately, because of anemia, he may not be a good candidate for [facility]. He is presently on xarelto and blood counts are trending down which will need to be carefully monitored. Consider GI evaluation if not previously done. Recommend continuing BB and statin. Continue aspirin if tolerated. He is presently receiving 40mg IV BID of lasix - strict I/O's and daily weights. Recommend elevation of scrotum. Qualifiers: Congestive heart failure type: unspecified congestive heart failure type Qualified Code(s): I50.9 - Heart failure, unspecified (2) Afib Current Visit: No Status: Chronic History of Afib, previously on amiodarone which was stopped during last visit presumably because of lack of regular follow up and stopping anticoagulation. Presented then with AFL/Atach and medications were maximized. However amiodarone was included on discharge summary and he is presently on this. Will continue at this time. May consider EP consult Tuesday. Rhythm is primarily now V-paced. Continue cardizem, toprol. On xarelto for anticoagulation ( CHADSVASC 5). Recommend careful watch on blood count. Qualifiers: Atrial fibrillation type: paroxysmal Qualified Code(s): I48.0 - Paroxysmal atrial fibrillation Discussion w patient/family: The assessment and plan as outlined above was discussed with the patient and/or family members who expressed understanding and agreement. All questions were answered. Thank you for involving us in the care of your patient. Please call with any questions. History of Present Illness Consult date: 04/23/17 Requesting physician: Canelo Becerril Consult reason: CHF Chief complaint: SOB, scrotal edema History of present illness: Mr. Diaz is a 71 year old male presenting with worsening dyspnea and scrotal edema. Medical history is significant for morbid obesity, insulin-dependent diabetes, GRAZYNA, HTN, SSS s/p PPM and diastolic heart failure. He was last seen in the Cardiology office by Dr. Kaplan 03/31/2016. He was recently seen by Cardiology as an inpatient in March 2017 for atrial tachycardia vs atrial flutter. His medications were maximized and xarelto was restarted (CHADSVASC 5) . His pacemaker was also interrogated demonstrating normal function. Echo demonstrated EF 45-50% (previously 45% in January 2017, 55-60% in 04/2016). He was diuresed during this visit. He presents today for worsening dyspnea and scrotal edema. He feels this has been progressive since last admission. CXR indicated mild pulmonary congestion , BNP 490. Labs demonstrate normal renal function, hypokalemia and anemia which appears chronic but is slowly trending down since last admission. Troponin x3 negative. ECG demonstrates atrial tachycardia/atrial flutter similar to ECG in March 2017. He reports to me that his legs are chronically edematous but he feels they are better than before. He is most concerned about scrotal edema. He denies chest pain, palpitations, pre syncope or syncope. Past Med Surg Social Fam HX - Past Medical History Attestation: Yes The following information was validated with the patient. Medical history: arthritis, atrial fibrillation, CHF, COPD, diabetes, hyperlipidemia, hypertension Psychiatric history: no psych history - Past Surgical History Surgical History: orthopedic, other, pacemaker/AICD - Social History Smoking Status: Former smoker Smokeless Tobacco Status: No Alcohol use: none Drug use: marijuana - Family History Father History Unknown: Yes Hx Family Cardiac Disorders: Yes (Quadruple Bypass) Mother History Unknown: Yes Family Member Ethnicity: Non- Living Status: Medications and Allergies Amiodarone [Cordarone] 200 mg PO DAILY 04/28/15 [History] Aspirin 81 mg PO DAILY 04/28/15 [History] Atorvastatin [Lipitor] 40 mg PO HS 04/28/15 [History] Citalopram [CeleXA] 40 mg PO DAILY 04/28/15 [History] Docosahexanoic Acid/Epa [Fish Oil Concentrate Softgel] 1 each PO DAILY 04/28/15 [History] Ferrous Sulfate 325 mg PO BIDWM 04/28/15 [History] Garlic 1,000 mg PO DAILY 04/28/15 [History] GlipiZIDE XL (24 HR) [Glucotrol XL] 20 mg PO QAM 04/28/15 [History] Insulin DETEMIR [Levemir] 70 units SQ BID 04/28/15 [History] SitaGLIPtin [Januvia] 100 mg PO DAILY 04/28/15 [History] Albuterol Sulfate [Proair Hfa] 2 puff IH Q4H PRN 01/25/17 [History] Budesonide/Formoterol 160/4.5 [Symbicort 160/4.5] 2 puff IH BIDR 01/25/17 [ History] Metoprolol Succinate 200 mg PO DAILY 01/25/17 [History] Oxygen 2 l NS CONT 02/03/17 [History] Furosemide [Lasix] 60 mg PO BID #180 tab 02/08/17 [Rx] Dextrose Gel [Gluctose] 30 gm PO ONCE PRN #0 gel..gram. 02/23/17 [Rx] Glucagon, Human Recombinant [Glucagen] 1 mg IM ONCE PRN #0 vial 02/23/17 [Rx] Nicotine Patch [Nicoderm] 21 mg TD DAILY #30 patch.td24 02/23/17 [Rx] Nitroglycerin 0.4 mg SL Q5MIN PRN #0 tab.subl 02/23/17 [Rx] Potassium Chloride 8 meq PO DAILY tablet.er 02/23/17 [Rx] Tiotropium [Spiriva] 18 mcg IH 0800 #30 inh 02/23/17 [Rx] metFORMIN [Glucophage] 1,000 mg PO BIDWM tablet 02/23/17 [Rx] Diltiazem HCl [Diltiazem 24Hr Cd] 180 mg PO BID 04/06/17 [History] Insulin LISPRO [HumaLOG] 4 - 16 units SQ TIDAC 04/06/17 [History] Meclizine HCl [Verticalm] 25 - 50 mg PO Q4H PRN 04/06/17 [History] Rivaroxaban [Xarelto] 20 mg PO DAILY 04/06/17 [History] Collagenase Oint [Santyl] 1 appl TP DAILY 04/14/17 [Rx] Allergies bupropion [From Wellbutrin] Allergy (Verified 04/28/15 08:53) Difficulty Breathing codeine Allergy (Verified 04/28/15 08:53) Difficulty Breathing Opioids-Meperidine and Related [Opioids-Meperidine & Related] Allergy (Verified 04/28/15 08:53) Difficulty Breathing All Systems Review: A 10-system review of systems was performed and is negative for pertinent findings except as documented above in the HPI. - Cardiovascular Cardiovascular: as per HPI Physical Examination Vital Signs, Last 4 Hours Temp Pulse Resp BP Pulse Ox 04/23/17 12:29 97.6 F 86 16 105/67 98 04/23/17 11:42 12 94 General: Conversant, No Apparent Distress HEENT: Atraumatic, Normocephaly, Mucus Membranes Moist Neck: Other (JVP difficult to appreciate) Cardiac: Reg Rate and Rhythm, Other (no murmur, no gallop) Lungs: Other (breath sounds are clear bilaterally) Neuro: Alert and responsive, No focal deficits noted Abdomen: Soft, Non-Tender, Other (bowel sounds present, obese abdomen) Extremities: Other (significant bilateral LE edema with wounds that are wrapped , distal pulses could not be palpated) Results 04/23/17 03:26 04/23/17 03:26 Lab Results 04/23/17 04/23/17 04/23/17 03:26 03:26 03:26 WBC 14.9 H Hgb 7.9 L Hct 27.3 L Plt Count 449 H Sodium Potassium Chloride Carbon Dioxide BUN Creatinine Glucose Calcium Magnesium 2.0 Total Bilirubin AST ALT Alkaline Phosphatase Troponin I 0.01 04/23/17 04/23/17 03:26 08:23 WBC Hgb Hct Plt Count Sodium 140 Potassium 3.2 L Chloride 104 Carbon Dioxide 25 BUN 38 H Creatinine 1.18 Glucose 72 Calcium 8.2 L Magnesium Total Bilirubin < 0.3 AST 19 ALT 21 Alkaline Phosphatase 107 Troponin I 0.01 - Imaging and Cardiology Chest Xray: report reviewed Echo: report reviewed - EKG Interpretation EKG results cardiology: personally reviewed (Atrial flutter/tach HR 78 bpm), other (24h telemetry demonstrates primarily vpaced, no concerning dysrhythmia) Consult Discharge Plan - Plan Referrals: Damian Seymour MD [Primary Care Provider] -
[2017-04-23] MEDS ORDERED: Perflutren Lipid Microsphere 1.3 ML in 0.9 % Sodium Chloride 8.7 ML IVP ONE (16:03)
--- NOTE | 2017-04-23 18:51 | Internal Med Progress Note ---
Date of Encounter: 04/23/17 Time of Encounter: 11:30 - Assessment and plan (1) Acute and chronic respiratory failure Current Visit: Yes Status: Acute Assessment and plan: Supplemental oxygen Qualifiers: Respiratory failure complication: hypoxia Qualified Code(s): J96.21 - Acute and chronic respiratory failure with hypoxia (2) Congestive heart failure Current Visit: Yes Status: Acute Assessment and plan: Cardiology evaluation. Continue diuresis as ordered. Echo to be done today. Fluid restriction and I/Os. Qualifiers: Congestive heart failure type: systolic Congestive heart failure chronicity : acute on chronic Qualified Code(s): I50.23 - Acute on chronic systolic ( congestive) heart failure (3) Iron deficiency anemia Current Visit: Yes Status: Chronic Assessment and plan: Endoscopy in January. No source of bleeding. Recheck H/H tomorrow. Qualifiers: Iron deficiency anemia type: unspecified iron deficiency Qualified Code(s) : D50.9 - Iron deficiency anemia, unspecified (4) Diabetes mellitus with neuropathy Current Visit: No Status: Chronic Assessment and plan: Continue meds and coverage with accuchecks. 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 (6) COPD (chronic obstructive pulmonary disease) Current Visit: No Status: Chronic Assessment and plan: Continue home meds and oxygen. Qualifiers: COPD type: unspecified COPD Qualified Code(s): J44.9 - Chronic obstructive pulmonary disease, unspecified (7) Hypokalemia Current Visit: No Status: Acute Assessment and plan: Replace again today and recheck tomorrow. (8) Essential hypertension Current Visit: No Status: Chronic Assessment and plan: Continue home meds. - Subjective Interval history: Mr. Diaz is currently admitted for acute volume overload and exacerbation of CHF. He is moderate to high risk due to potential for cardiac and respiratory worsening. Mr Diaz is up at bedside. He feels about the same and says his swelling is a little better. No fever or chills. No GI issues. Breathing is about the same. - Constitutional Vitals: Temp Pulse Resp BP Pulse Ox 97.9 F 100 18 117/75 90 04/23/17 18:33 04/23/17 18:33 04/23/17 18:33 04/23/17 18:33 04/23/17 18:33 General appearance: Present: A&O X 3, morbidly obese, answers questions appropriately - Head Head exam: Present: normocephalic - Eye Eye exam: Present: conjuntiva pink - ENT ENT exam: Present: mucous membranes dry - Respiratory Respiratory exam: Present: decreased breath sounds, rales. Absent: rhonchi, wheezes - Cardiovascular Cardiovascular exam: Present: distant heart sounds, irregular rhythm. Absent: tachycardia - GI/Abdominal GI/Abdominal exam: Present: soft. Absent: tenderness - Extremities Exam Extremities exam: Present: pedal edema, warm - Neurological Exam Neurological exam: Present: alert, oriented X3 - Skin Skin exam: Present: warm Additional comments: Venous stasis changes in lower extremities. Internal Medicine: Result - Labs CBC & Chem 7: 04/23/17 03:26 04/23/17 03:26 Labs: Short CBC 04/23/17 Range/Units 03:26 WBC 14.9 H (4.3-11.1) K/mcL Hgb 7.9 L (12.9-16.9) g/dL Hct 27.3 L (37.5-50.1) % Plt Count 449 H (140-400) K/mcL Neutrophils # 13.0 H (1.6-8.9) K/mcL BMP 04/23/17 03:26 Sodium 140 Potassium 3.2 L Chloride 104 Carbon Dioxide 25 BUN 38 H Creatinine 1.18 Glucose 72 Calcium 8.2 L Cardiac Enzymes 04/23/17 04/23/17 Range/Units 03:26 08:23 Troponin I 0.01 0.01 (0-0.03) ng/mL Liver Function 04/23/17 Range/Units 03:26 Total Bilirubin < 0.3 (0.2-1.2) mg/dL AST 19 (5-34) Units/L ALT 21 (0-55) Units/L Alkaline Phosphatase 107 (38-126) Units/L Albumin 2.2 L (3.5-5.0) g/dL - Impressions Impressions Chest X-Ray 04/23/17 06:00 IMPRESSION: Stable CHF. D/ / 04/23/2017 11:57:29 Pedro Covarrubias MD / rickie Interpreting Provider: Pedro Covarrubias MD Consult Discharge Plan - Plan Referrals: Damian Seymour MD [Primary Care Provider] -
[2017-04-24] MEDS: Ipratropium/Albuterol Neb 3 ML IH SCH ×7 (00:45→23:13)
[2017-04-24] MEDS: Piperacillin/Tazobactam 3.375 GM in D5% in Water (Mini-Bag+) 100 ML IVPB SCH ×3 (03:29→20:11)
[2017-04-24 04:07] LABS: Hematocrit 24.3 % (37.5-50.1); Hemoglobin 7.2 g/dL (12.9-16.9); Mean Corpuscular HGB Conc 29.6 g/dL (31.6-35.5); Mean Corpuscular Hemoglobin 27.3 pg (28.0-33.3); Mean Platelet Volume 9.5 fL (9.4-12.4); Platelet Count 375 K/mcL (140-400); Red Blood Count 2.64 M/mcL (4.19-5.50); Red Cell Distribution Width 19.8 % (11.5-14.5)
[2017-04-24 04:17] LABS: BUN/Creatinine Ratio 28 (6-26); Blood Urea Nitrogen 38 mg/dL (8-26); Calcium 8.1 mg/dL (8.6-10.8); Carbon Dioxide 28 mEq/L (19-29); Chloride 105 mEq/L (98-109); Glucose 151 mg/dL (70-99); Magnesium 1.9 mg/dL (1.6-2.6); Osmolality,Calculated 302 (280-300); Potassium 3.5 mEq/L (3.5-4.5); Sodium 140 mEq/L (136-145); eGFR For African Americans > 60 (> 60); eGFR For Non-African Americans 52 (> 60)
[2017-04-24] MEDS: Budesonide/Formoterol 160/4.5 MDI IH SCH ×2 (07:55→19:38)
[2017-04-24] MEDS: *HR* Rivaroxaban 10 MG TABLET PO SCH (08:25)
[2017-04-24] MEDS: Insulin LISPRO 300 UNITS/3 ML VIAL SQ SCH ×4 (08:25→20:17)
[2017-04-24] MEDS: Potassium Chloride Elixir 20 MEQ/15 ML UDC PO SCH ×3 (08:25→20:13)
[2017-04-24] MEDS: Nicotine 21 MG PATCH.TD24 TD SCH (08:26)
[2017-04-24] MEDS: Diltiazem CD (24hr) 180 MG CAPSULE PO SCH ×2 (08:26→20:13)
[2017-04-24] MEDS: Furosemide 40 MG/4 ML VIAL IVP SCH (08:26)
[2017-04-24] MEDS: Metoprolol XL (24 HR) Succ 50 MG TAB.ER.24H PO SCH (08:26)
[2017-04-24] MEDS: *HR* Amiodarone 200 MG TABLET PO SCH (08:26)
[2017-04-24] MEDS: Aspirin 81 MG TAB.CHEW PO SCH (08:26)
--- NOTE | 2017-04-24 10:01 | Cardiology Progress Note ---
Date of Encounter: 04/24/17 Time of Encounter: 08:30 Assessment and Plan (1) Acute congestive heart failure Current Visit: Yes Status: Acute Most likely acute on chronic systolic and diastolic heart failure. His LVEF in January was 45%, previously 55-60% - was not seen by Cardiology at that time. Repeat LVEF during a recent visit was also 45-50%. Unfortunately, he's been periodically anemic and doesn't appear to be a good candidate for [facility]. He is presently on xarelto and blood counts continue to trend down. He denies bleeding. Consider GI evaluation if not previously done. Recommend continuing BB and statin. Continue aspirin if tolerated. His renal function has declined while on lasix 40mg IV BID. His presenting CXR demonstrated only mild vascular congestion and initial BNP 490. Not sure of accuracy of I/O's or weights. Given decline in renal function, recommend transitioning to PO lasix at this time. Qualifiers: Congestive heart failure type: unspecified congestive heart failure type Qualified Code(s): I50.9 - Heart failure, unspecified (2) Afib Current Visit: No Status: Chronic History of Afib, previously on amiodarone which was stopped during last visit presumably because of lack of regular follow up and stopping anticoagulation. Presented then with AFL/Atach and medications were maximized. However amiodarone was included on discharge summary and he is presently on this. Unfortunately, blood counts continue to trend down. However, there are no signs of bleeding. Recommend continuing anticoagulation and amiodarone at this time. However, if blood count continues to decline and/or bleeding is present will need to consider stopping anticoagulation at which time may also need to discontinue amiodarone. May consider EP consult Tuesday. Rhythm is primarily now V-paced. Continue cardizem, toprol. Qualifiers: Atrial fibrillation type: paroxysmal Qualified Code(s): I48.0 - Paroxysmal atrial fibrillation Discussion w patient/family: The assessment and plan as outlined above was discussed with the patient and/or family members who expressed understanding and agreement. All questions were answered. Thank you for involving us in the care of your patient. Please call with any questions. Subjective Principal diagnosis: CHF, AFIB Interval history: Mr. Diaz has no new complaints this morning. He feels the SOB has improved and his LE swelling. He denies any bleeding. He does admit to little improvement in scrotal swelling. Objective Vital Signs, Last 4 Hours Temp Pulse Resp BP Pulse Ox 04/24/17 07:57 16 89 04/24/17 07:33 98 F 101 15 99/58 100 General: Conversant, No Apparent Distress HEENT: Atraumatic, Mucus Membranes Moist Neck: Other (JVP difficult to appreciate) Cardiac: Reg Rate and Rhythm, No Murmur Lungs: Other (breath sounds appear clear) Abdomen: Soft, Other (bowel sounds present) Extremities: Other (significant bilateral LE edema with chronic venous stasis changes) Results 04/24/17 03:23 04/24/17 03:23 Lab Results 04/24/17 04/24/17 03:23 03:23 WBC 11.0 Hgb 7.2 L Hct 24.3 L Plt Count 375 Sodium 140 Potassium 3.5 Chloride 105 Carbon Dioxide 28 BUN 38 H Creatinine 1.34 H Glucose 151 H Calcium 8.1 L Magnesium 1.9 - EKG Interpretation EKG results cardiology: other (24h telemetry reviewed; primarily v paced, no concerning dysrhythmia) Consult Discharge Plan - Plan Referrals: Damian Seymour MD [Primary Care Provider] -
--- NOTE | 2017-04-24 11:54 | Internal Med Progress Note ---
<Monalisa Jiang - Last Filed: 04/24/17 14:47> Date of Encounter: 04/24/17 Time of Encounter: 11:52 - Assessment and plan (1) Acute and chronic respiratory failure Current Visit: Yes Status: Acute Assessment and plan: Patient is improving, currently on 3L NC Plan: -Continue Supplemental oxygen -Continue duonebs, symbicort, prn albuterol Qualifiers: Respiratory failure complication: hypoxia Qualified Code(s): J96.21 - Acute and chronic respiratory failure with hypoxia (2) Congestive heart failure Current Visit: Yes Status: Acute Assessment and plan: Chronic, Cardiology consulted. Awaiting ECHO Patient continues to have edema of the UE/LE/Scrotum Plan: -Continue Fluid restriction -Continue diuresis, switch to oral lasix -Strict I/Os. -Daily weights Qualifiers: Congestive heart failure type: systolic Congestive heart failure chronicity : acute on chronic Qualified Code(s): I50.23 - Acute on chronic systolic ( congestive) heart failure (3) Iron deficiency anemia Current Visit: Yes Status: Chronic Assessment and plan: Endoscopy in January. No source of bleeding. Hgb 7.2, decreased from 8.1 at admission. Stated hx of melena Current abd pain Per records had EGD in January suggesting Pryor's esophagus Will consult GI to evaluate him in the AM and make recommendations regarding hgb as the patient may require [facility] Plan: -Check H/H in AM -Consult to GI in the morning -NPO at midnight in the event he should require any procedures tomorrow Qualifiers: Iron deficiency anemia type: unspecified iron deficiency Qualified Code(s) : D50.9 - Iron deficiency anemia, unspecified (4) Diabetes mellitus with neuropathy Current Visit: No Status: Chronic Assessment and plan: Plan: -Continue SSI -accuchecks ACHS. Qualifiers: Diabetes mellitus type: type 2 Diabetes mellitus retirement insulin use: unspecified retirement insulin use status Qualified Code(s): E11.40 - Type 2 diabetes mellitus with diabetic neuropathy, unspecified (5) Scrotal edema Current Visit: Yes Status: Acute Assessment and plan: Elevate scrotum. (6) Essential hypertension Current Visit: No Status: Chronic Assessment and plan: Continue home meds. (7) COPD (chronic obstructive pulmonary disease) Current Visit: No Status: Chronic Assessment and plan: Continue home meds and oxygen. Qualifiers: COPD type: unspecified COPD Qualified Code(s): J44.9 - Chronic obstructive pulmonary disease, unspecified (8) Afib Current Visit: No Status: Chronic Assessment and plan: Hx chronic afib, presented on amiodarone and anticoagulation (xarelto) Plan: -Continue amiodarone and xarelto at this time -continue to monitor H/H Qualifiers: Atrial fibrillation type: paroxysmal Qualified Code(s): I48.0 - Paroxysmal atrial fibrillation - Subjective Interval history: Patient seen and examined. He notes that he is breathing much better, although he is not quite back to his baseline. He states that his skin has been very itchy and he has been scratching at it causing sores and bleeding. He denies any pain. - Constitutional Vitals: Temp Pulse Resp BP Pulse Ox 98 F 101 16 99/58 100 04/24/17 07:33 04/24/17 07:33 04/24/17 11:22 04/24/17 07:33 04/24/17 11:22 General appearance: Present: cooperative, A&O X 3, morbidly obese, pleasant, no acute distress, answers questions appropriately - Head Head exam: Present: atraumatic, normocephalic - Neck Neck exam general surgery: Present: supple, trachea midline - Respiratory Respiratory exam: Present: decreased breath sounds, CTAB. Absent: accessory muscle use, rales, respiratory distress, rhonchi, wheezes, tachypnea - Cardiovascular Cardiovascular exam: Present: irregular rhythm, +S1, +S2. Absent: diastolic murmur, gallop, rubs, systolic murmur - GI/Abdominal GI/Abdominal exam: Present: normal bowel sounds, soft, no peritoneal signs. Absent: distended, tenderness - exam: Present: scrotal swelling (with mild erythema and clear drainage) - Extremities Exam Extremities exam: Present: normal capillary refill, pedal edema, warm, radial pulses palpable and symmetrical. Absent: calf tenderness, cyanotic Additional comments: chronic venous stasis changes to b/l LE, patient has thickened skin with dressing in place on left foot - Neurological Exam Neurological exam: Present: oriented X3, no focal deficits. Absent: facial droop, speech deficit - Expanded Neurological Exam Sensory exam: lower extremity light touch: Abnormal Left, Abnormal Right, lower extremity pin prick: Abnormal Left, Abnormal Right - Psychiatric Psychiatric exam: Present: normal affect, normal mood - Skin Additional comments: multiple excoriations in various stages of healing, some bleeding in b/l UE Internal Medicine: Result - Labs CBC & Chem 7: 04/24/17 03:23 04/24/17 03:23 Labs: Short CBC 04/24/17 Range/Units 03:23 WBC 11.0 (4.3-11.1) K/mcL Hgb 7.2 L (12.9-16.9) g/dL Hct 24.3 L (37.5-50.1) % Plt Count 375 (140-400) K/mcL BMP 04/24/17 03:23 Sodium 140 Potassium 3.5 Chloride 105 Carbon Dioxide 28 BUN 38 H Creatinine 1.34 H Glucose 151 H Calcium 8.1 L - Impressions Impressions Chest X-Ray 04/23/17 06:00 IMPRESSION: Stable CHF. D/ / 04/23/2017 11:57:29 Pedro Covarrubias MD / rickie Interpreting Provider: Pedro Covarrubias MD Consult Discharge Plan - Plan Referrals: Damian Seymour MD [Primary Care Provider] - <Naresh Baldwin - Last Filed: 04/24/17 17:29> Date of Encounter: 04/24/17 - Assessment and plan (1) Acute and chronic respiratory failure Current Visit: Yes Status: Acute Qualifiers: Respiratory failure complication: hypoxia Qualified Code(s): J96.21 - Acute and chronic respiratory failure with hypoxia (2) Congestive heart failure Current Visit: Yes Status: Acute Qualifiers: Congestive heart failure type: systolic Congestive heart failure chronicity : acute on chronic Qualified Code(s): I50.23 - Acute on chronic systolic ( congestive) heart failure (3) Iron deficiency anemia Current Visit: Yes Status: Chronic Qualifiers: Iron deficiency anemia type: unspecified iron deficiency Qualified Code(s) : D50.9 - Iron deficiency anemia, unspecified (4) Diabetes mellitus with neuropathy Current Visit: No Status: Chronic Qualifiers: Diabetes mellitus type: type 2 Diabetes mellitus retirement insulin use: unspecified retirement insulin use status Qualified Code(s): E11.40 - Type 2 diabetes mellitus with diabetic neuropathy, unspecified (5) Scrotal edema Current Visit: Yes Status: Acute (6) COPD (chronic obstructive pulmonary disease) Current Visit: No Status: Chronic Qualifiers: COPD type: unspecified COPD Qualified Code(s): J44.9 - Chronic obstructive pulmonary disease, unspecified (7) Hypokalemia Current Visit: No Status: Acute (8) Essential hypertension Current Visit: No Status: Chronic (9) Morbid obesity with BMI of 45.0-49.9, adult Current Visit: Yes Status: Chronic - Constitutional Vitals: Temp Pulse Resp BP Pulse Ox 97.8 F 94 14 107/70 98 04/24/17 16:35 04/24/17 16:35 04/24/17 16:35 04/24/17 16:35 04/24/17 16:35 Internal Medicine: Result - Labs CBC & Chem 7: 04/24/17 03:23 04/24/17 03:23 Labs: Short CBC 04/24/17 Range/Units 03:23 WBC 11.0 (4.3-11.1) K/mcL Hgb 7.2 L (12.9-16.9) g/dL Hct 24.3 L (37.5-50.1) % Plt Count 375 (140-400) K/mcL BMP 04/24/17 03:23 Sodium 140 Potassium 3.5 Chloride 105 Carbon Dioxide 28 BUN 38 H Creatinine 1.34 H Glucose 151 H Calcium 8.1 L - Impressions Impressions Abdomen/Pelvis CT 04/24/17 15:26 IMPRESSION: 1. At least small to moderate right side pleural effusion and small left pleural effusion. Right lower lobe airspace opacification consistent with atelectasis; however, superimposed right lower lobe pneumonia is also possible. 2. Interstitial thickening in the lung bases compatible with pulmonary edema. 3. Hepatic surface nodularity compatible with hepatic cirrhosis. There is small volume abdominopelvic ascites. 4. Multiple enlarged abdominal, retroperitoneal, and inguinal lymph nodes bilaterally are nonspecific, but raise the possibility for underlying lymphoproliferative disorder or metastatic disease. Clinical correlation is recommended. 5. Prostatic enlargement. Correlation with PSA is recommended. 6. Large hydrocele. 7. Diffuse body wall edema. 8. 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 The findings were sent to the Radiology Results Communication Center at 4:21 pm on 04/24/2017to be communicated to a licensed caregiver. D/ / 04/24/2017 16:27:25 Татьяна Collins MD / rickie Interpreting Provider: Татьяна Collins MD - Attending Attestation I examined this patient and my medical decision-making was reviewed with the Resident Physician on 04/24/17. I agree with the documented findings, disposition and treatment plan as described except to the extent set forth below. Mr Diaz is currently admitted for resp failure and fluid overload. He remains moderate to high risk due to potential for worsening respiratory and cardiac status. Mr. Diaz is somewhat less swollen today. Denies pain. Says his bowels always black (iron). Hemoglobin lower again today. No fever or chills. Exam Alert. Comfortable on edge of bed. Mucus membranes dry Heart distant Lungs diminished Abd soft Still with edema but slightly better. I/P 1. Resp failure 2. Anemia - GI consult tomorrow 3. Fluid overload Further diagnoses and plan as above.
--- NOTE | 2017-04-24 12:46 | Electrocardiograph Report ---
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
--- NOTE | 2017-04-24 12:47 | Electrocardiograph Report ---
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
[2017-04-24] MEDS: Furosemide 40 MG TABLET PO SCH (17:25)
[2017-04-25] MEDS: Piperacillin/Tazobactam 3.375 GM in D5% in Water (Mini-Bag+) 100 ML IVPB SCH ×3 (03:56→20:05)
[2017-04-25] MEDS: Ipratropium/Albuterol Neb 3 ML IH SCH ×5 (04:19→19:47)
[2017-04-25 05:48] LABS: Basophils # 0.1 K/mcL (0.0-0.2); Basophils % 0.5 %; Eosinophils # 0.3 K/mcL (0.0-0.6); Eosinophils % 2.7 %; Hematocrit 26.2 % (37.5-50.1); Hemoglobin 7.6 g/dL (12.9-16.9); Immature Granulocytes % 0.4 % (0-4); Lymphocytes # 0.7 K/mcL (0.6-4.6); Lymphocytes % 5.9 %; Mean Corpuscular Hemoglobin 26.3 pg (28.0-33.3); Mean Corpuscular Volume 90.7 fL (83.0-100.0); Mean Platelet Volume 9.4 fL (9.4-12.4); Monocytes # 1.2 K/mcL (0.0-1.3); Neutrophils # 8.9 K/mcL (1.6-8.9); Platelet Count 420 K/mcL (140-400); Red Blood Count 2.89 M/mcL (4.19-5.50); Segmented Neutrophils % 79.5 %
[2017-04-25 06:17] LABS: Calcium 8.3 mg/dL (8.6-10.8); Potassium 3.9 mEq/L (3.5-4.5)
[2017-04-25] MEDS: Insulin LISPRO 300 UNITS/3 ML VIAL SQ SCH ×4 (09:16→20:42)
[2017-04-25] MEDS: Potassium Chloride Elixir 20 MEQ/15 ML UDC PO SCH ×3 (09:17→20:19)
[2017-04-25] MEDS: Furosemide 40 MG TABLET PO SCH ×2 (09:19→16:45)
[2017-04-25] MEDS: Metoprolol XL (24 HR) Succ 50 MG TAB.ER.24H PO SCH (09:19)
[2017-04-25] MEDS: Diltiazem CD (24hr) 180 MG CAPSULE PO SCH ×2 (09:19→20:22)
[2017-04-25] MEDS: Nicotine 21 MG PATCH.TD24 TD SCH (09:19)
[2017-04-25] MEDS: Aspirin 81 MG TAB.CHEW PO SCH (09:19)
[2017-04-25] MEDS: *HR* Rivaroxaban 10 MG TABLET PO SCH (09:20)
[2017-04-25] MEDS: *HR* Amiodarone 200 MG TABLET PO SCH (09:20)
--- NOTE | 2017-04-25 09:29 | Internal Med Progress Note ---
<Monalisa Jiang - Last Filed: 04/25/17 11:51> Date of Encounter: 04/25/17 Time of Encounter: 09:29 - Assessment and plan (1) Acute and chronic respiratory failure Current Visit: Yes Status: Acute Assessment and plan: Patient is improving, currently on 2L NC Plan: -Continue Supplemental oxygen, wean as tolerated -BiPAP at night -Continue duonebs, symbicort, prn albuterol Qualifiers: Respiratory failure complication: hypoxia Qualified Code(s): J96.21 - Acute and chronic respiratory failure with hypoxia (2) Congestive heart failure Current Visit: Yes Status: Acute Assessment and plan: Acute on Chronic systolic and diastolic HF, Cardiology consulted. ECHO 04/23/17: LVEF 50-55%; LV diastolic dysfunction; atypical septal motion, mild concentric LVH;elevated RA pressures Patient continues to have edema of the UE/LE/Scrotum LHC recommended, but pt has been too anemic, GI consulted Patient less edemetous on exam today Plan: -Continue BB, statin, ASA, PO lasix -Continue Fluid restriction -Continue diuresis -Strict I/Os. -Daily weights Qualifiers: Congestive heart failure type: systolic Congestive heart failure chronicity : acute on chronic Qualified Code(s): I50.23 - Acute on chronic systolic ( congestive) heart failure (3) Iron deficiency anemia Current Visit: Yes Status: Chronic Assessment and plan: Endoscopy in January. No source of bleeding. Hgb 7.6, decreased from 8.1 at admission. Stated hx of melena Stated abd pain during admission Per records had EGD in January suggesting Pryor's esophagus No current obvious source of blood loss Will consult GI to evaluate him in the AM and make recommendations regarding hgb as the patient may require LHC Patient may require a transfusion to be able to have LHC Per GI, colonoscopy Plan: -Check H/H in AM -Consult to GI today -Will hold marlys Matos for scope Qualifiers: Iron deficiency anemia type: unspecified iron deficiency Qualified Code(s) : D50.9 - Iron deficiency anemia, unspecified (4) Diabetes mellitus with neuropathy Current Visit: No Status: Chronic Assessment and plan: Plan: -Continue SSI -accuchecks ACHS. Qualifiers: Diabetes mellitus type: type 2 Diabetes mellitus fpc insulin use: unspecified fpc insulin use status Qualified Code(s): E11.40 - Type 2 diabetes mellitus with diabetic neuropathy, unspecified (5) Scrotal edema Current Visit: Yes Status: Acute Assessment and plan: Elevate scrotum. (6) Essential hypertension Current Visit: No Status: Chronic Assessment and plan: Continue home meds. (7) COPD (chronic obstructive pulmonary disease) Current Visit: No Status: Chronic Assessment and plan: Continue home meds and oxygen. Qualifiers: COPD type: unspecified COPD Qualified Code(s): J44.9 - Chronic obstructive pulmonary disease, unspecified (8) Afib Current Visit: No Status: Chronic Assessment and plan: Hx chronic afib, presented on amiodarone and anticoagulation (xarelto) Plan: -Continue amiodarone and xarelto at this time -continue to monitor H/H Qualifiers: Atrial fibrillation type: paroxysmal Qualified Code(s): I48.0 - Paroxysmal atrial fibrillation - Subjective Interval history: Patient seen and examined. He notes that he is breathing much better, and thinks that his swelling has improved slightly. He denies any pain. - Constitutional Vitals: Temp Pulse Resp BP Pulse Ox 97.4 F L 91 16 102/58 95 04/25/17 07:33 04/25/17 07:33 04/25/17 07:33 04/25/17 07:33 04/25/17 07:33 General appearance: Present: cooperative, A&O X 3, morbidly obese, pleasant, no acute distress, answers questions appropriately - Head Head exam: Present: atraumatic, normocephalic - Respiratory Respiratory exam: Present: CTAB. Absent: accessory muscle use, rales, rhonchi, wheezes - Cardiovascular Cardiovascular exam: Present: RRR, +S1, +S2. Absent: diastolic murmur, gallop, rubs, systolic murmur - GI/Abdominal GI/Abdominal exam: Present: firm, normal bowel sounds, no peritoneal signs. Absent: distended, tenderness Additional comments: Anasarca - exam: Present: scrotal swelling - Extremities Exam Extremities exam: Present: pedal edema, radial pulses palpable and symmetrical. Absent: calf tenderness Additional comments: chronic venous stasis changes to b/l LE, patient has thickened skin with dressing in place on left foot Diffuse edema - Back Exam Back exam: Present: normal inspection - Neurological Exam Neurological exam: Present: oriented X3, no focal deficits. Absent: motor sensory deficit, facial droop, speech deficit - Psychiatric Psychiatric exam: Present: normal affect, normal mood - Skin Skin exam: Present: dry, warm. Absent: erythema Additional comments: multiple excoriations in various stages of healing, some bleeding in b/l UE Internal Medicine: Result - Labs CBC & Chem 7: 04/25/17 03:37 04/25/17 05:48 Labs: Short CBC 04/25/17 Range/Units 03:37 WBC 11.2 H (4.3-11.1) K/mcL Hgb 7.6 L (12.9-16.9) g/dL Hct 26.2 L (37.5-50.1) % Plt Count 420 H (140-400) K/mcL Neutrophils # 8.9 (1.6-8.9) K/mcL BMP 04/25/17 05:48 Sodium 137 Potassium 3.9 Chloride 103 Carbon Dioxide 26 BUN 41 H Creatinine 1.42 H Glucose 175 H Calcium 8.3 L - Impressions Impressions Abdomen/Pelvis CT 04/24/17 15:26 IMPRESSION: 1. At least small to moderate right side pleural effusion and small left pleural effusion. Right lower lobe airspace opacification consistent with atelectasis; however, superimposed right lower lobe pneumonia is also possible. 2. Interstitial thickening in the lung bases compatible with pulmonary edema. 3. Hepatic surface nodularity compatible with hepatic cirrhosis. There is small volume abdominopelvic ascites. 4. Multiple enlarged abdominal, retroperitoneal, and inguinal lymph nodes bilaterally are nonspecific, but raise the possibility for underlying lymphoproliferative disorder or metastatic disease. Clinical correlation is recommended. 5. Prostatic enlargement. Correlation with PSA is recommended. 6. Large hydrocele. 7. Diffuse body wall edema. 8. 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 The findings were sent to the Radiology Results Communication Center at 4:21 pm on 04/24/2017to be communicated to a licensed caregiver. D/ / 04/24/2017 16:27:25 Татьяна Collins MD / rickie Interpreting Provider: Татьяна Collins MD Consult Discharge Plan - Plan Referrals: Damian Seymour MD [Primary Care Provider] - <Naresh Baldwin A - Last Filed: 04/25/17 19:22> Date of Encounter: 04/25/17 - Assessment and plan (1) Acute and chronic respiratory failure Current Visit: Yes Status: Acute Qualifiers: Respiratory failure complication: hypoxia Qualified Code(s): J96.21 - Acute and chronic respiratory failure with hypoxia (2) Congestive heart failure Current Visit: Yes Status: Acute Qualifiers: Congestive heart failure type: systolic Congestive heart failure chronicity : acute on chronic Qualified Code(s): I50.23 - Acute on chronic systolic ( congestive) heart failure (3) Iron deficiency anemia Current Visit: Yes Status: Chronic Qualifiers: Iron deficiency anemia type: unspecified iron deficiency Qualified Code(s) : D50.9 - Iron deficiency anemia, unspecified (4) Diabetes mellitus with neuropathy Current Visit: No Status: Chronic Qualifiers: Diabetes mellitus type: type 2 Diabetes mellitus 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 insulin use: unspecified fpc insulin use status Qualified Code(s): E11.40 - Type 2 diabetes mellitus with diabetic neuropathy, unspecified (5) Scrotal edema Current Visit: Yes Status: Acute (6) COPD (chronic obstructive pulmonary disease) Current Visit: No Status: Chronic Qualifiers: COPD type: unspecified COPD Qualified Code(s): J44.9 - Chronic obstructive pulmonary disease, unspecified (7) Hypokalemia Current Visit: No Status: Acute (8) Essential hypertension Current Visit: No Status: Chronic (9) Morbid obesity with BMI of 45.0-49.9, adult Current Visit: Yes Status: Chronic - Constitutional Vitals: Temp Pulse Resp BP Pulse Ox 97.4 F L 96 16 103/51 94 04/25/17 15:47 04/25/17 15:47 04/25/17 16:53 04/25/17 15:47 04/25/17 16:53 Internal Medicine: Result - Labs CBC & Chem 7: 04/25/17 03:37 04/25/17 05:48 Labs: Short CBC 04/25/17 Range/Units 03:37 WBC 11.2 H (4.3-11.1) K/mcL Hgb 7.6 L (12.9-16.9) g/dL Hct 26.2 L (37.5-50.1) % Plt Count 420 H (140-400) K/mcL Neutrophils # 8.9 (1.6-8.9) K/mcL BMP 04/25/17 05:48 Sodium 137 Potassium 3.9 Chloride 103 Carbon Dioxide 26 BUN 41 H Creatinine 1.42 H Glucose 175 H Calcium 8.3 L Liver Function 04/25/17 Range/Units 12:13 Total Bilirubin < 0.3 (0.2-1.2) mg/dL Direct Bilirubin 0.2 (0.0-0.5) mg/dL AST 15 (5-34) Units/L ALT 18 (0-55) Units/L Alkaline Phosphatase 97 (38-126) Units/L Albumin 2.2 L (3.5-5.0) g/dL - ABG Interpretation ABG results: PT/INR, D-dimer PT 28.3 Seconds (9.4-12.1) H 04/25/17 12:13 - Impressions Impressions Abdomen/Pelvis CT 04/24/17 15:26 IMPRESSION: 1. At least small to moderate right side pleural effusion and small left pleural effusion. Right lower lobe airspace opacification consistent with atelectasis; however, superimposed right lower lobe pneumonia is also possible. 2. Interstitial thickening in the lung bases compatible with pulmonary edema. 3. Hepatic surface nodularity compatible with hepatic cirrhosis. There is small volume abdominopelvic ascites. 4. Multiple enlarged abdominal, retroperitoneal, and inguinal lymph nodes bilaterally are nonspecific, but raise the possibility for underlying lymphoproliferative disorder or metastatic disease. Clinical correlation is recommended. 5. Prostatic enlargement. Correlation with PSA is recommended. 6. Large hydrocele. 7. Diffuse body wall edema. 8. 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 The findings were sent to the Radiology Results Communication Center at 4:21 pm on 04/24/2017to be communicated to a licensed caregiver. D/ / 04/24/2017 16:27:25 Татьяна Collins MD / rickie Interpreting Provider: Татьяна Collins MD - Attending Attestation I examined this patient and my medical decision-making was reviewed with the Resident Physician on 04/25/17. I agree with the documented findings, disposition and treatment plan as described except to the extent set forth below. Mr. Diaz is currently admitted for acute exac CHF, anemia and resp failure. He remains moderate to high risk due to continued volume overload and risk for worsening respiratory status. Mr Diaz is having trouble moving to lie in bed. He is still very edematous. No fever or chills. Thinks his swelling may be slightly better. No GI issues. Exam Alert. moderate distress due to swelling Mucus membranes dry Heart reg distant Lungs diminished Abd soft Scrotum swollen Very edematous I/P 1. Acute exac CHF 2. Anasarca
--- NOTE | 2017-04-25 10:59 | Cardiology Progress Note ---
<Jerome Lund - Last Filed: 04/25/17 17:11> Date of Encounter: 04/25/17 Time of Encounter: 09:15 Assessment and Plan (1) Acute congestive heart failure Current Visit: Yes Status: Acute Most likely acute on chronic systolic and diastolic heart failure. His LVEF in January was 45%, previously 55-60% - was not seen by Cardiology at that time. Repeat LVEF during a recent visit was also 45-50%. Unfortunately, he's been periodically anemic and doesn't appear to be a good candidate for [facility]. Patient will be undergoing a colonoscopy on and per recommendation from GI, Xarelto will start being held tomorrow. Recommend continuing BB and statin. Continue aspirin if tolerated. Given decline in renal function, patient has been switched to PO lasix. Qualifiers: Congestive heart failure type: unspecified congestive heart failure type Qualified Code(s): I50.9 - Heart failure, unspecified (2) Afib Current Visit: No Status: Chronic History of Afib, previously on amiodarone which was stopped during last visit presumably because of lack of regular follow up and stopping anticoagulation. Presented then with AFL/Atach and medications were maximized. However amiodarone was included on discharge summary and he is presently on this. Current Hgb went up from 7.2 to 7.6. Recommend continuing amiodarone at this time. Patient has colonoscopy on so Xarelto will be held starting tomorrow. Continue cardizem, toprol. Qualifiers: Atrial fibrillation type: paroxysmal Qualified Code(s): I48.0 - Paroxysmal atrial fibrillation Discussion w patient/family: The assessment and plan as outlined above was discussed with the patient and/or family members who expressed understanding and agreement. All questions were answered. Thank you for involving us in the care of your patient. Please call with any questions. Subjective Principal diagnosis: CHF, AFIB Interval history: When spoken to today, patient denies any chest pain, shortness of breath, dizziness, syncope, light headedness, or coughing. He is complaining of swelling of his legs and scrotum, which he says has been the same since admission. Objective Vital Signs, Last 4 Hours Temp Pulse Resp BP Pulse Ox 04/25/17 07:33 97.4 F L 91 16 102/58 95 General: Conversant Neck: No JVD, Normal carotid pulses Cardiac: Reg Rate and Rhythm, Normal S1 and S2, No Murmur Lungs: Normal Breath Sounds, No Wheeze, Rales, Rhonchi Neuro: Alert and responsive Musculoskeletal: No Chest Wall Tenderness Extremities: No Clubbing, No Cyanosis, Other (+2 pitting edema bilaterally of the lower extremeties. Left toe has wound with no signs of active bleeding, pus , erythema, or infection. ) Other: Patient has swelling of scrotum. Results 04/25/17 03:37 04/25/17 05:48 Lab Results 04/25/17 04/25/17 03:37 05:48 WBC 11.2 H Hgb 7.6 L Hct 26.2 L Plt Count 420 H Sodium 137 Potassium 3.9 Chloride 103 Carbon Dioxide 26 BUN 41 H Creatinine 1.42 H Glucose 175 H Calcium 8.3 L - Imaging and Cardiology Chest Xray: report reviewed (Mid pulmonary congestion.) - EKG Interpretation EKG results cardiology: personally reviewed (No acute changes from previous EKG on 04/07/2017.) Consult Discharge Plan - Plan Referrals: Damian Seymour MD [Primary Care Provider] - <Zack Garcia - Last Filed: 04/26/17 12:52> Date of Encounter: 04/26/17 Assessment and Plan (1) Congestive heart failure Current Visit: Yes Status: Acute Qualifiers: Congestive heart failure type: systolic Congestive heart failure chronicity : acute on chronic Qualified Code(s): I50.23 - Acute on chronic systolic ( congestive) heart failure Discussion w patient/family: The assessment and plan as outlined above was discussed with the patient and/or family members who expressed understanding and agreement. All questions were answered. Thank you for involving us in the care of your patient. Please call with any questions Pt seen and examined independently, chart reviewed, discussed with housestaff, essential findings above confirmed. CC: Shortness of breath, scrotal edema. Pt some improvement in shortness of breath at rest, from dypnea when sitting upright, is now able to lie flat at 45 degrees without provocation of shortness of breath. He reports some improve in scrotal and lower extremity swelling with decreased pain at rest and with minimal activity. IMP/Plan: 1. Acute on chronic combined systolic and diastolic heart failure, responding to IV diuresis, Lasix dose decreased due to worsening renal failure, JOSE on hold, due to renal failure. 2. Paroxysmal A fib, back in A fib with controlled ventricular responsea, amiodarone has been stopped and resumed several times over last several weeks, have resumed, will continue, goal maintaining NSR. 3. Acute on chronic renal failure, JOSE on hold, will resume when blood pressure and renal function allow. 4. Acute on chronic Anemia, eval for blood loss in progress, Objective Vital Signs, Last 4 Hours Temp Pulse Resp BP Pulse Ox 04/26/17 12:17 97.6 F 102 20 108/68 97 04/26/17 09:26 97 04/26/17 09:01 96.8 F L 104 16 102/68 97 Results 04/26/17 05:40 04/26/17 05:40 Lab Results 04/25/17 04/25/17 04/26/17 12:13 12:13 05:40 WBC 11.2 H Hgb 7.3 L Hct 25.2 L Plt Count 397 INR 2.6 Sodium Potassium Chloride Carbon Dioxide BUN Creatinine Glucose Calcium Total Bilirubin < 0.3 AST 15 ALT 18 Alkaline Phosphatase 97 04/26/17 05:40 WBC Hgb Hct Plt Count INR Sodium 136 Potassium 4.3 Chloride 103 Carbon Dioxide 22 BUN 38 H Creatinine 1.22 Glucose 145 H Calcium 8.2 L Total Bilirubin AST ALT Alkaline Phosphatase
[2017-04-25] MEDS: Budesonide/Formoterol 160/4.5 MDI IH SCH ×2 (11:05→19:47)
--- NOTE | 2017-04-25 11:30 | Gastroenterology Consult Note ---
<Jarad Guerrero Jayashree - Last Filed: 04/25/17 11:53> Date of Encounter: 04/25/17 Time of Encounter: 10:30 - Assessment and plan (1) Iron deficiency anemia Current Visit: Yes Status: Chronic Assessment and plan: Pt is taking iron supplement due to hx of ESTEPHANIA, and Hgb on admission was 8.1, decreased to 7.2 on 04/24, and today Hgb 7.6. Continue to monitor CBC and transfuse PRBC as needed. Continue iron supplement. Plan for colonoscopy . Clear liquid diet Tuesday and Tuesday, no red or purple. NPO at midnight Tuesday night. If unable tolerate NuLytely please use MiraLAX prep. If not clear by 6 AM morning, give 2 tap water enemas. (2) Cirrhosis Current Visit: Yes Status: Acute Assessment and plan: Compensated cirrhosis which could be due to SUN. We will complete liver workup (AFP, alpha-1 antitrypsin, AMA, ANCA, ceruloplasmin, F-Actin, ferritin, hepatitis profile, AMA, PT/INR, and liver ultrasound). Start lactulose PRN and titrate to have 2-4 bowel movements per day. (3) Chronic anticoagulation Current Visit: Yes Status: Acute Assessment and plan: Creatinine 1.42 with GFR 49 today. Will need to hold Xarelto 3 days before colonoscopy. Pt received his Xarelto dose this AM, will start holding tomorrow. (4) Adenoma determined by colorectal biopsy Current Visit: Yes Status: Acute Assessment and plan: Last colonoscopy 01/27/[address] Woodard with multiple colon polyps ranging up to 12 mm size including sessile serrated adenoma, tubulovillous adenoma, and hyperplastic polyps with recommendation to repeat colonoscopy in 3-6 months with 2 day prep. Plan for colonoscopy on with 2 day prep. Will need to hold Xarelto for 3 days before cscope. - Time Spent With Patient Total time spent is greater than 50% in coordination of care (as documented) at patient's floor/unit and/or counseling patient: GI History of Present Illness - Data of Consult Patient: known to practice within the last 3 years Consult date: 04/25/17 Requesting Physician: Naresh Baldwin DO - Consult Narrative Reason for consult: Anemia History of present illness: Mr. Diaz is a 71 year old male with PMHx of Afib s/p pacemaker insertion, ESTEPHANIA, CHF, COPD, DM, HLD, and HTN who presented to the ED with increase in lower extremity edema, shortness of breath, and scrotal swelling. Pt is taking iron supplement due to hx of ESTEPHANIA, and Hgb on admission was 8.1, decreased to 7.2 on , and today Hgb 7.6. CT A/P shows hepatic surface nodularity compatible with cirrhosis, small volume abdominopelvic ascites. Multiple enlarged abdominal, retroperitoneal, and inguinal lymph nodes bilaterally raises the possibility for underlying lymphoproliferative disorder or metastatic disease. The patient denies any alcohol use. Procedures: Colonoscopy 01/27/2017 Dr. Woodard: with multiple colon polyps ranging up to 12 mm size including sessile serrated adenoma, tubulovillous adenoma, and hyperplastic polyps with recommendation to repeat colonoscopy in 3-6 months with 2 day prep. EGD 01/27/2017 Dr. Woodard: With one tongue of salmon mucosa in esophagus NSAIDs: ASA Anticoagulation: Xarelto Past Med Surg Social Fam HX - Past Medical History Medical history: arthritis, atrial fibrillation, CHF, COPD, diabetes, hyperlipidemia, hypertension Psychiatric history: no psych history - Past Surgical History Surgical History: orthopedic, other, pacemaker/AICD - Social History Smoking Status: Former smoker Smokeless Tobacco Status: No Alcohol use: none Drug use: marijuana - Family History Father History Unknown: Yes Hx Family Cardiac Disorders: Yes (Quadruple Bypass) Mother History Unknown: Yes Family Member Ethnicity: Non- Living Status: - Gastrointestinal Gastrointestinal: Present: as per HPI - Constitutional Constitutional: as per HPI - EENT Eyes: as per HPI Ears: Present: as per HPI Nose, mouth and throat: Present: as per HPI - Cardiovascular Cardiovascular ROS: Present: as per HPI - Respiratory Respiratory IM: Present: as per HPI - Genitourinary Genitourinary: Absent: change in color, Urinary frequency - Neurological ROS Neurological GI: Present: as per HPI - Hematologic/Lymphatic Hematologic/Lymphatic pediatric: Present: as per HPI - Musculoskeletal Musculoskeletal ROS GI: Present: as per HPI - Integumentary Integumentary GI: Present: as per HPI - Psychiatric ROS Psychiatric GI: Present: as per HPI - Endocrine Endocrine IM: Present: as per HPI - Constitutional Vitals: Temp Pulse Resp BP Pulse Ox 97.4 F L 96 16 111/65 97 04/25/17 11:14 04/25/17 11:14 04/25/17 11:05 04/25/17 11:14 04/25/17 11:14 General appearance: Present: cooperative, A&O X 3, no acute distress, answers questions appropriately - Head Head exam: Present: atraumatic, normocephalic - Eye Eye exam: Present: normal appearance, sclera anicteric - ENT ENT exam: Present: mucous membranes moist - Neck Neck exam general surgery: Present: normal inspection, trachea midline - Respiratory Respiratory exam: Present: decreased breath sounds, CTAB. Absent: rales, rhonchi - Cardiovascular Cardiovascular exam: Present: RRR, +S1, +S2 - GI/Abdominal GI/Abdominal exam: Present: distended, soft, no peritoneal signs. Absent: firm , guarding, hernia, tenderness Additional comments: obese - Rectal Rectal exam: Present: deferred - Extremities Exam Extremities exam: Present: warm Additional comments: LLE with dressing in place. - Neurological Exam Neurological exam: Present: no focal deficits - Psychiatric Psychiatric exam: Present: normal affect, normal mood - Skin Skin exam: Present: dry, intact, warm Additional comments: multiple excoriations in various stages of healing, some bleeding in bilateral UE Results - Labs CBC & Chem 7: 04/25/17 03:37 04/25/17 05:48 Labs: Last Result Calcium 8.3 mg/dL (8.6-10.8) L 04/25/17 05:48 Troponin I 0.01 ng/mL (0-0.03) 04/23/17 08:23 Entire Visit Hgb 7.6 g/dL (12.9-16.9) L 04/25/17 03:37 Hct 26.2 % (37.5-50.1) L 04/25/17 03:37 Total Bilirubin < 0.3 mg/dL (0.2-1.2) 04/23/17 03:26 AST 19 Units/L (5-34) 04/23/17 03:26 ALT 21 Units/L (0-55) 04/23/17 03:26 - Impressions Impressions Abdomen/Pelvis CT 04/24/17 15:26 IMPRESSION: 1. At least small to moderate right side pleural effusion and small left pleural effusion. Right lower lobe airspace opacification consistent with atelectasis; however, superimposed right lower lobe pneumonia is also possible. 2. Interstitial thickening in the lung bases compatible with pulmonary edema. 3. Hepatic surface nodularity compatible with hepatic cirrhosis. There is small volume abdominopelvic ascites. 4. Multiple enlarged abdominal, retroperitoneal, and inguinal lymph nodes bilaterally are nonspecific, but raise the possibility for underlying lymphoproliferative disorder or metastatic disease. Clinical correlation is recommended. 5. Prostatic enlargement. Correlation with PSA is recommended. 6. Large hydrocele. 7. Diffuse body wall edema. 8. 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 The findings were sent to the Radiology Results Communication [facility] at 4:21 pm on 04/24/2017to be communicated to a licensed caregiver. D/ / 04/24/2017 16:27:25 Татьяна Collins MD / [email or web address] Interpreting Provider: Татьяна Collins MD Consult Discharge Plan - Plan Referrals: Damian Seymour MD [Primary Care Provider] - <Katiana Woodard - Last Filed: 04/25/17 18:35> Date of Encounter: 04/25/17 Time of Encounter: 18:00 - Time Spent With Patient Total time spent is greater than 50% in coordination of care (as documented) at patient's floor/unit and/or counseling patient: GI History of Present Illness - Data of Consult Requesting Physician: Naresh Baldwin DO - Consult Narrative History of present illness: Mr. Diaz is a 71 year old male - Constitutional Vitals: Temp Pulse Resp BP Pulse Ox 97.4 F L 96 16 103/51 94 04/25/17 15:47 04/25/17 15:47 04/25/17 16:53 04/25/17 15:47 04/25/17 16:53 Results - Labs CBC & Chem 7: 04/25/17 03:37 04/25/17 05:48 Labs: Last Result Calcium 8.3 mg/dL (8.6-10.8) L 04/25/17 05:48 Ferritin 72 ng/ml (22-275) 04/25/17 12:13 Troponin I 0.01 ng/mL (0-0.03) 04/23/17 08:23 Entire Visit Hgb 7.6 g/dL (12.9-16.9) L 04/25/17 03:37 Hct 26.2 % (37.5-50.1) L 04/25/17 03:37 PT 28.3 Seconds (9.4-12.1) H 04/25/17 12:13 Ferritin 72 ng/ml (22-275) 04/25/17 12:13 Total Bilirubin < 0.3 mg/dL (0.2-1.2) 04/25/17 12:13 AST 15 Units/L (5-34) 04/25/17 12:13 ALT 18 Units/L (0-55) 04/25/17 12:13 - ABG ABG results: PT/INR, D-dimer PT 28.3 Seconds (9.4-12.1) H 04/25/17 12:13 - Impressions Impressions Abdomen/Pelvis CT 04/24/17 15:26 IMPRESSION: 1. At least small to moderate right side pleural effusion and small left pleural effusion. Right lower lobe airspace opacification consistent with atelectasis; however, superimposed right lower lobe pneumonia is also possible. 2. Interstitial thickening in the lung bases compatible with pulmonary edema. 3. Hepatic surface nodularity compatible with hepatic cirrhosis. There is small volume abdominopelvic ascites. 4. Multiple enlarged abdominal, retroperitoneal, and inguinal lymph nodes bilaterally are nonspecific, but raise the possibility for underlying lymphoproliferative disorder or metastatic disease. Clinical correlation is recommended. 5. Prostatic enlargement. Correlation with PSA is recommended. 6. Large hydrocele. 7. Diffuse body wall edema. 8. 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 The findings were sent to the Radiology Results Communication Center at 4:21 pm on 04/24/2017to be communicated to a licensed caregiver. D/ / 04/24/2017 16:27:25 Татьяна Collins MD / rickie Interpreting Provider: Татьяна Collins MD - Attending Attestation I examined this patient and my medical decision-making was reviewed with the Resident Physician. I agree with the documented findings, disposition and treatment plan as described except to the extent set forth below.
[2017-04-25 12:34] LABS: INR 2.6; Prothrombin Time 28.3 Seconds (9.4-12.1)
[2017-04-25 12:43] LABS: Alanine Aminotransferase 18 Units/L (0-55); Albumin 2.2 g/dL (3.5-5.0); Albumin/Globulin Ratio 0.6 (1.1-2.2); Alkaline Phosphatase 97 Units/L (38-126); Aspartate Amino Transferase 15 Units/L (5-34); Bilirubin,Direct 0.2 mg/dL (0.0-0.5); Bilirubin,Indirect 0.1 mg/dL (0.0-1.2); Globulin 3.6 g/dL (2.4-3.5); Total Protein 5.8 g/dL (6.0-8.3)
[2017-04-25 12:44] LABS: Bilirubin,Total < 0.3 mg/dL (0.2-1.2)
[2017-04-25 13:04] LABS: Ferritin 72 ng/ml (22-275)
[2017-04-25 13:07] LABS: Hepatitis A Antibody IgM Nonreactive (Nonreactive); Hepatitis B Core IgM Nonreactive (Nonreactive); Hepatitis B Surface Antigen Nonreactive (Nonreactive); Hepatitis C Virus Antibody Nonreactive (Nonreactive)
--- NOTE | 2017-04-25 16:31 | Podiatry Consult Note ---
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 Overall significant improvement to the left great toe with decreased drainage. No evidence of bacterial infection. Will order daily dressing changes with Santyl ointment. Continue use of post op surgical shoe to both feet. Continue wound care to DFU of both feet with Santyl ointment. Please keep right heel elevated away from direct pressure while in bed. Patient will need to f/u in Podiatry clinic with Reese oconnor in a week of discharge from the hospital. Qualifiers: Encounter type: subsequent encounter Qualified Code(s): S90.425D - Blister (nonthermal), left lesser toe(s), subsequent encounter (3) Chronic venous insufficiency Current visit: No Status: Acute (4) Foot ulcer Current visit: No Status: Acute DFU to the plantar aspect of the left foot and posterior lateral aspect of the right heel. 100% white fibrous tissue to both ulcerations, no probe to bone, no evidence of bacterial infection. Wound care ordered for Santyl ointment to both ulcerations with sterile 4x4 gauze and kerlix to the left foot and santyl with Allevyn to the right heel ulcer. Keep right heel elevated away from direct pressure while in bed. Patient will need post op shoes bilaterally to off load pressure and allow ulcerations to heal. Qualifiers: Laterality: unspecified laterality Non-pressure ulcer stage: unspecified non-pressure ulcer stage Qualified Code(s): L97.509 - Non-pressure chronic ulcer of other part of unspecified foot with unspecified severity History of Present Illness HPI: Mr. Diaz is a 71 year old male admitted for scrotal swelling. Patient has a medical history significant for diabetes mellitus with neuropathy, CHF, COPD, hyperlipidemia, atrial fibrillation. Podiatry was consulted for management of diabetic foot ulcers to both feet and a wound to the left great toe. Patient was evaluated three weeks ago during his last admission for a blister of the left great toe that formed after was sitting on his roller walker and it collapsed. The blister was deroofed during his last admission on 04/07/17. Patient also has ulcerations to both feet. Patient states the ulcer to the right heel started after he bumped his heel on a chair. Patient states he is not sure how the ulcer occurred to the plantar aspect of the left foot. Patient denies any surgery to his feet in the past. He states he has wounds to his feet in the past. He states he does not see a Computer Science Teacher. Betadine wet to dry dressings were ordered for the left great toe and santyl ointment to the ulcers of both feet. The ECF was ordered to continue the dressing changes daily. Patient was discharged on Oral Keflex and was scheduled to follow up in Podiatry clinic today. No c/o fever or chills. Patients son and grandson are at the bedside. Past Med Surg Social Fam HX - Past Medical History Medical history: arthritis, atrial fibrillation, CHF, COPD, diabetes, hyperlipidemia, hypertension Psychiatric history: no psych history - Past Surgical History Surgical History: orthopedic, other, pacemaker/AICD - Social History Smoking Status: Former smoker Smokeless Tobacco Status: No Alcohol use: none Drug use: marijuana - Family History Father History Unknown: Yes Hx Family Cardiac Disorders: Yes (Quadruple Bypass) Mother History Unknown: Yes Family Member Ethnicity: Non- Living Status: Medications and Allergies Amiodarone [Cordarone] 200 mg PO DAILY 04/28/15 [History] Aspirin 81 mg PO DAILY 04/28/15 [History] Atorvastatin [Lipitor] 40 mg PO HS 04/28/15 [History] Citalopram [CeleXA] 40 mg PO DAILY 04/28/15 [History] Docosahexanoic Acid/Epa [Fish Oil Concentrate Softgel] 1 each PO DAILY 04/28/15 [History] Ferrous Sulfate 325 mg PO BIDWM 04/28/15 [History] Garlic 1,000 mg PO DAILY 04/28/15 [History] GlipiZIDE XL (24 HR) [Glucotrol XL] 20 mg PO QAM 04/28/15 [History] Insulin DETEMIR [Levemir] 70 units SQ BID 04/28/15 [History] SitaGLIPtin [Januvia] 100 mg PO DAILY 04/28/15 [History] Albuterol Sulfate [Proair Hfa] 2 puff IH Q4H PRN 01/25/17 [History] Budesonide/Formoterol 160/4.5 [Symbicort 160/4.5] 2 puff IH BIDR 01/25/17 [ History] Metoprolol Succinate 200 mg PO DAILY 01/25/17 [History] Oxygen 2 l NS CONT 02/03/17 [History] Furosemide [Lasix] 60 mg PO BID #180 tab 02/08/17 [Rx] Dextrose Gel [Gluctose] 30 gm PO ONCE PRN #0 gel..gram. 02/23/17 [Rx] Glucagon, Human Recombinant [Glucagen] 1 mg IM ONCE PRN #0 vial 02/23/17 [Rx] Nicotine Patch [Nicoderm] 21 mg TD DAILY #30 patch.td24 02/23/17 [Rx] Nitroglycerin 0.4 mg SL Q5MIN PRN #0 tab.subl 02/23/17 [Rx] Potassium Chloride 8 meq PO DAILY tablet.er 02/23/17 [Rx] Tiotropium [Spiriva] 18 mcg IH 0800 #30 inh 02/23/17 [Rx] metFORMIN [Glucophage] 1,000 mg PO BIDWM tablet 02/23/17 [Rx] Diltiazem HCl [Diltiazem 24Hr Cd] 180 mg PO BID 04/06/17 [History] Insulin LISPRO [HumaLOG] 4 - 16 units SQ TIDAC 04/06/17 [History] Meclizine HCl [Verticalm] 25 - 50 mg PO Q4H PRN 04/06/17 [History] Rivaroxaban [Xarelto] 20 mg PO DAILY 04/06/17 [History] Collagenase Oint [Santyl] 1 appl TP DAILY 04/14/17 [Rx] Allergies bupropion [From Wellbutrin] Allergy (Verified 04/28/15 08:53) Difficulty Breathing codeine Allergy (Verified 04/28/15 08:53) Difficulty Breathing Opioids-Meperidine and Related [Opioids-Meperidine & Related] Allergy (Verified 04/28/15 08:53) Difficulty Breathing All Systems Reviewed: A 10-system review of systems was performed and is negative for pertinent findings except as documented above in the HPI. Physical Exam - Constitutional Vitals: Temp Pulse Resp BP Pulse Ox 97.4 F L 96 17 103/51 98 04/25/17 15:47 04/25/17 15:47 04/25/17 15:47 04/25/17 15:47 04/25/17 15:47 Exam: General appearance: alert awake oriented X 3. Calm and pleasant, no acute distress.. Vascular: Pedal pulses +2/4 DP/PT , Edema graded at 1+/4, Skin Temperature warm , capillary refill time is immediate to digits. Neurologic: Sensation diminished with light touch to both feet. Integument: hemosiderin staining to BLE and feet. Dried blood observe to right anterior tibial region. Left great toe: s/p deroofed blister, wound to plantar aspect of left great toe measuring cm in lenght x 3 cm in width. base of wound with 100% yellow slough , wound edges are pink and connected. No pus, moderate amount of serous drainage. Ulceration #1 to the left foot plantar aspect measuring 1cm in length x 1 cm in width x 0.1 cm in depth with 100% fibrous tissue, no periwound erythema, no streaking, no pus, no odor, no probe to bone, no fluctuance, no sinus tracts, no tunneling, no warmth. Ulceration #2 to the right posterior heel lateral aspect measuring 1cm in length x 1 cm in width x 0.2 cm in depth with 100% fibrous tissue, light periwound erythema, no streaking, no pus, no odor, no probe to bone, no fluctuance, no sinus tracts, no tunneling, no warmth. No nails present to toe #1 bilaterally and #2 right foot. All other toe nails are thick, elongated and mycotic. Results - Labs Result Diagrams: 04/25/17 03:37 04/25/17 05:48 Labs: Abnormal lab results WBC 11.2 K/mcL (4.3-11.1) H 04/25/17 03:37 RBC 2.89 M/mcL (4.19-5.50) L 04/25/17 03:37 Hgb 7.6 g/dL (12.9-16.9) L 04/25/17 03:37 Hct 26.2 % (37.5-50.1) L 04/25/17 03:37 MCH 26.3 pg (28.0-33.3) L 04/25/17 03:37 MCHC 29.0 g/dL (31.6-35.5) L 04/25/17 03:37 RDW 20.0 % (11.5-14.5) H 04/25/17 03:37 Plt Count 420 K/mcL (140-400) H 04/25/17 03:37 Platelet Estimate Slight increase (Normal) H 04/23/17 03:26 Polychromasia 1+ (Not Present) A 04/23/17 03:26 Hypochromasia Present (Not Present) A 04/23/17 03:26 Anisocytosis 1+ (Not Present) A 04/23/17 03:26 PT 28.3 Seconds (9.4-12.1) H 04/25/17 12:13 BUN 41 mg/dL (8-26) H 04/25/17 05:48 Creatinine 1.42 mg/dL (0.72-1.25) H 04/25/17 05:48 Est GFR ( Amer) 59 (> 60) L 04/25/17 05:48 Est GFR (Non-Af Amer) 49 (> 60) L 04/25/17 05:48 BUN/Creatinine Ratio 29 (6-26) H 04/25/17 05:48 Glucose 175 mg/dL (70-99) H 04/25/17 05:48 POC Glucose 256 (58-89) H 04/24/17 20:09 Lactic Acid 2.4 mmol/L (0.5-2.2) H 04/22/17 21:24 Calcium 8.3 mg/dL (8.6-10.8) L 04/25/17 05:48 B-Natriuretic Peptide 490 pg/mL (0-100) H 04/22/17 19:40 Serum Total Protein 5.8 g/dL (6.0-8.3) L 04/25/17 12:13 Albumin 2.2 g/dL (3.5-5.0) L 04/25/17 12:13 Globulin 3.6 g/dL (2.4-3.5) H 04/25/17 12:13 Albumin/Globulin Ratio 0.6 (1.1-2.2) L 04/25/17 12:13 H & H 04/25/17 Range/Units 03:37 Hgb 7.6 L (12.9-16.9) g/dL Hct 26.2 L (37.5-50.1) % All other labs normal. Consult Discharge Plan - Plan Referrals: Damian Seymour MD [Primary Care Provider] -
[2017-04-26] MEDS: Ipratropium/Albuterol Neb 3 ML IH SCH ×7 (00:20→22:39)
[2017-04-26] MEDS: Piperacillin/Tazobactam 3.375 GM in D5% in Water (Mini-Bag+) 100 ML IVPB SCH ×2 (03:49→11:40)
[2017-04-26 06:53] LABS: Red Cell Distribution Width 19.8 % (11.5-14.5)
[2017-04-26 06:55] LABS: Hematocrit 25.2 % (37.5-50.1); Hemoglobin 7.3 g/dL (12.9-16.9); Mean Corpuscular Hemoglobin 26.8 pg (28.0-33.3); Mean Corpuscular Volume 92.6 fL (83.0-100.0); Mean Platelet Volume 9.5 fL (9.4-12.4); Platelet Count 397 K/mcL (140-400); Red Blood Count 2.72 M/mcL (4.19-5.50)
[2017-04-26 07:10] LABS: BUN/Creatinine Ratio 31 (6-26); Blood Urea Nitrogen 38 mg/dL (8-26); Calcium 8.2 mg/dL (8.6-10.8); Carbon Dioxide 22 mEq/L (19-29); Chloride 103 mEq/L (98-109); Glucose 145 mg/dL (70-99); Osmolality,Calculated 294 (280-300); Sodium 136 mEq/L (136-145); eGFR For African Americans > 60 (> 60); eGFR For Non-African Americans 58 (> 60)
[2017-04-26 07:39] LABS: Potassium 4.3 mEq/L (3.5-4.5)
[2017-04-26] MEDS: Diltiazem CD (24hr) 180 MG CAPSULE PO SCH ×2 (09:09→21:27)
[2017-04-26] MEDS: Nicotine 21 MG PATCH.TD24 TD SCH (09:10)
[2017-04-26] MEDS: Aspirin 81 MG TAB.CHEW PO SCH (09:10)
[2017-04-26] MEDS: *HR* Amiodarone 200 MG TABLET PO SCH (09:10)
[2017-04-26] MEDS: Furosemide 40 MG TABLET PO SCH (09:11)
[2017-04-26] MEDS: Metoprolol XL (24 HR) Succ 50 MG TAB.ER.24H PO SCH (09:11)
[2017-04-26] MEDS: Potassium Chloride Elixir 20 MEQ/15 ML UDC PO SCH ×3 (09:11→21:28)
[2017-04-26] MEDS: Insulin LISPRO 300 UNITS/3 ML VIAL SQ SCH ×4 (09:12→21:33)
--- NOTE | 2017-04-26 09:33 | Internal Med Progress Note ---
<Monalisa Jiang - Last Filed: 04/26/17 14:03> Date of Encounter: 04/26/17 Time of Encounter: 09:31 - Assessment and plan (1) Acute and chronic respiratory failure Current Visit: Yes Status: Acute Assessment and plan: Patient is improving, currently on 2L NC Plan: -Continue Supplemental oxygen, wean as tolerated -BiPAP at night -Continue duonebs, symbicort, prn albuterol Qualifiers: Respiratory failure complication: hypoxia Qualified Code(s): J96.21 - Acute and chronic respiratory failure with hypoxia (2) Congestive heart failure Current Visit: Yes Status: Acute Assessment and plan: Acute on Chronic systolic and diastolic HF, Cardiology consulted. ECHO 04/23/17: LVEF 50-55%; LV diastolic dysfunction; atypical septal motion, mild concentric LVH;elevated RA pressures Patient continues to have edema of the UE/LE/Scrotum [facility] recommended, but pt has been too anemic, GI consulted and plan to scope Scr improving, 1.22<1.42 Increased SOB today, repeat CXR shows increased pulmonary edema Plan: -Will change lasix to IV -Continue BB, statin, ASA, PO lasix -Continue Fluid restriction -Continue diuresis -Strict I/Os. -Daily weights Qualifiers: Congestive heart failure type: systolic Congestive heart failure chronicity : acute on chronic Qualified Code(s): I50.23 - Acute on chronic systolic ( congestive) heart failure (3) Iron deficiency anemia Current Visit: Yes Status: Chronic Assessment and plan: Endoscopy in January. No source of bleeding. Hgb 7.2, decreased from 8.1 at admission. Stated hx of melena Stated abd pain during admission Per records had EGD in January suggesting Pryor's esophagus No current obvious source of blood loss GI consulted, plan to have 2 day prep and colonoscopy on Patient may require a transfusion to be able to have [facility] Plan: -Continue to monitor H/H, transfuse as needed -Bowel prep per GI -Will hold Xarelto, planning for scope Qualifiers: Iron deficiency anemia type: unspecified iron deficiency Qualified Code(s) : D50.9 - Iron deficiency anemia, unspecified (4) Diabetes mellitus with neuropathy Current Visit: No Status: Chronic Assessment and plan: Plan: -Continue SSI -accuchecks ACHS. 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 (6) Essential hypertension Current Visit: No Status: Chronic Assessment and plan: Continue home meds. (7) COPD (chronic obstructive pulmonary disease) Current Visit: No Status: Chronic Assessment and plan: Chronic Plan: -Continue home meds -Continue oxygen -BiPAP at night Qualifiers: COPD type: unspecified COPD Qualified Code(s): J44.9 - Chronic obstructive pulmonary disease, unspecified (8) Afib Current Visit: No Status: Chronic Assessment and plan: Hx chronic afib, presented on amiodarone and anticoagulation (xarelto) Plan: -Xarelto on hold starting today for colonoscopy -Continue amiodarone -Continue to monitor H/H Qualifiers: Atrial fibrillation type: paroxysmal Qualified Code(s): I48.0 - Paroxysmal atrial fibrillation - Subjective Interval history: Patient seen and examined. He notes that he feels more short of breath this morning. - Constitutional Vitals: Temp Pulse Resp BP Pulse Ox 96.8 F L 104 16 102/68 97 04/26/17 09:01 04/26/17 09:01 04/26/17 09:01 04/26/17 09:01 04/26/17 09:26 General appearance: Present: cooperative, A&O X 3, morbidly obese, pleasant, no acute distress, answers questions appropriately - Head Head exam: Present: atraumatic, normocephalic - Respiratory Respiratory exam: Present: decreased breath sounds, rales. Absent: accessory muscle use, respiratory distress - Cardiovascular Cardiovascular exam: Present: RRR, tachycardia - GI/Abdominal GI/Abdominal exam: Present: distended, firm, normal bowel sounds Additional comments: diffuse anasarca - Extremities Exam Extremities exam: Present: pedal edema. Absent: tenderness Additional comments: chronic venous stasis changes to b/l LE, patient has thickened skin with dressing in place on left foot Diffuse edema - Neurological Exam Neurological exam: Present: alert, oriented X3, no focal deficits. Absent: facial droop, speech deficit - Psychiatric Psychiatric exam: Present: normal affect, normal mood - Skin Skin exam: Present: dry Additional comments: chronic venous stasis changes to b/l LE Internal Medicine: Result - Labs CBC & Chem 7: 04/26/17 05:40 04/26/17 05:40 Labs: Short CBC 04/26/17 Range/Units 05:40 WBC 11.2 H (4.3-11.1) K/mcL Hgb 7.3 L (12.9-16.9) g/dL Hct 25.2 L (37.5-50.1) % Plt Count 397 (140-400) K/mcL BMP 04/26/17 05:40 Sodium 136 Potassium 4.3 Chloride 103 Carbon Dioxide 22 BUN 38 H Creatinine 1.22 Glucose 145 H Calcium 8.2 L Liver Function 04/25/17 Range/Units 12:13 Total Bilirubin < 0.3 (0.2-1.2) mg/dL Direct Bilirubin 0.2 (0.0-0.5) mg/dL AST 15 (5-34) Units/L ALT 18 (0-55) Units/L Alkaline Phosphatase 97 (38-126) Units/L Albumin 2.2 L (3.5-5.0) g/dL - ABG Interpretation ABG results: PT/INR, D-dimer PT 28.3 Seconds (9.4-12.1) H 04/25/17 12:13 - Impressions Impressions Abdomen/Pelvis CT 04/24/17 15:26 IMPRESSION: 1. At least small to moderate right side pleural effusion and small left pleural effusion. Right lower lobe airspace opacification consistent with atelectasis; however, superimposed right lower lobe pneumonia is also possible. 2. Interstitial thickening in the lung bases compatible with pulmonary edema. 3. Hepatic surface nodularity compatible with hepatic cirrhosis. There is small volume abdominopelvic ascites. 4. Multiple enlarged abdominal, retroperitoneal, and inguinal lymph nodes bilaterally are nonspecific, but raise the possibility for underlying lymphoproliferative disorder or metastatic disease. Clinical correlation is recommended. 5. Prostatic enlargement. Correlation with PSA is recommended. 6. Large hydrocele. 7. Diffuse body wall edema. 8. 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 The findings were sent to the Radiology Results Communication Center at 4:21 pm on 04/24/2017to be communicated to a licensed caregiver. D/ / 04/24/2017 16:27:25 Татьяна Collins MD / bcarter Interpreting Provider: Татьяна Collins MD Liver Ultrasound 04/25/17 17:30 IMPRESSION: Re-demonstration of findings suggesting underlying cirrhosis. Small perihepatic ascites. Minimal sludge within the dependent gallbladder. No acute gallbladder findings. D/ / 04/25/2017 19:21:01 Yann Evans MD / [email or web address] Interpreting Provider: Yann Evans MD Consult Discharge Plan - Plan Referrals: Damian Seymour MD [Primary Care Provider] - <Dutch Kee H - Last Filed: 04/26/17 14:05> Date of Encounter: 04/26/17 - Constitutional Vitals: Temp Pulse Resp BP Pulse Ox 97.6 F 102 20 108/68 97 04/26/17 12:17 04/26/17 12:17 04/26/17 12:17 04/26/17 12:17 04/26/17 12:17 Internal Medicine: Result - Labs CBC & Chem 7: 04/26/17 05:40 04/26/17 05:40 Labs: Short CBC 04/26/17 Range/Units 05:40 WBC 11.2 H (4.3-11.1) K/mcL Hgb 7.3 L (12.9-16.9) g/dL Hct 25.2 L (37.5-50.1) % Plt Count 397 (140-400) K/mcL BMP 04/26/17 05:40 Sodium 136 Potassium 4.3 Chloride 103 Carbon Dioxide 22 BUN 38 H Creatinine 1.22 Glucose 145 H Calcium 8.2 L - ABG Interpretation ABG results: PT/INR, D-dimer PT 28.3 Seconds (9.4-12.1) H 04/25/17 12:13 - Impressions Impressions Liver Ultrasound 04/25/17 17:30 IMPRESSION: Re-demonstration of findings suggesting underlying cirrhosis. Small perihepatic ascites. Minimal sludge within the dependent gallbladder. No acute gallbladder findings. D/ / 04/25/2017 19:21:01 Yann Evans MD / estrella Interpreting Provider: Yann Evans MD Chest X-Ray 04/26/17 10:11 IMPRESSION: Worsening pulmonary edema and increasing pleural effusions consistent with worsening CHF. D/ / Татьяна Collins MD / Татьяна Collins MD Interpreting Provider: Татьяна Collins MD - Attending Attestation Acute on chronic hypoxic respiratory failure secondary to acute systolic and diastolic CHF exacerbation with bilateral pleural effusions and acute pulmonary edema Resume Lasix IV, strict I's and O's, daily weight Left greater toe ulcer, no signs of infection, discontinue Zosyn Followed by podiatry I examined this patient and my medical decision-making was reviewed with the Resident Physician. I agree with the documented findings, disposition and treatment plan as described except to the extent set forth below.
[2017-04-26] MEDS: Budesonide/Formoterol 160/4.5 MDI IH SCH ×2 (11:18→20:00)
[2017-04-26] MEDS: Furosemide 40 MG/4 ML VIAL IVP SCH ×2 (14:02→21:33)
--- NOTE | 2017-04-26 16:09 | Cardiology Progress Note ---
<Jerome Lund - Last Filed: 04/26/17 17:35> Date of Encounter: 04/26/17 Time of Encounter: 15:45 Assessment and Plan (1) Acute congestive heart failure Current Visit: Yes Status: Acute Most likely acute on chronic systolic and diastolic heart failure. His LVEF in January was 45%, previously 55-60% - was not seen by Cardiology at that time. Repeat LVEF during a recent visit was also 45-50%. Unfortunately, he's been periodically anemic and doesn't appear to be a good candidate for [facility]. Patient will be undergoing a colonoscopy on . Xarelto is currently on hold. Recommend continuing BB and statin. Continue aspirin if tolerated. Patient is reporting increasing shortness of breath. Latest Chest X-ray from 04/26/17 shows worsening pulmonary edema. Patient was switched to IV lasix 40 mg BID. Qualifiers: Congestive heart failure type: unspecified congestive heart failure type Qualified Code(s): I50.9 - Heart failure, unspecified (2) Afib Current Visit: No Status: Chronic History of Afib, previously on amiodarone which was stopped during last visit presumably because of lack of regular follow up and stopping anticoagulation. Presented then with AFL/Atach and medications were maximized. However amiodarone was included on discharge summary and he is presently on this. Current Hgb went down from 7.6 to 7.3. Recommend continuing amiodarone at this time. Patient has colonoscopy on . Xarelto on hold. Continue cardizem, toprol. Qualifiers: Atrial fibrillation type: paroxysmal Qualified Code(s): I48.0 - Paroxysmal atrial fibrillation Discussion w patient/family: The assessment and plan as outlined above was discussed with the patient and/or family members who expressed understanding and agreement. All questions were answered. Thank you for involving us in the care of your patient. Please call with any questions. Subjective Principal diagnosis: CHF, AFIB Interval history: When spoken to today, patient says that when he tries to sit up, his shortness of breath has gotten worse, lasting 20-30 min before he can go back to his baseline. He also admits to heart palpitations when trying to sit up as well, which lasts for a few minutes. He denies any chest pain, numbness/tingling, headaches, vision blurriness, syncope, nausea, or vomiting. Objective Vital Signs, Last 4 Hours Temp Pulse Resp BP Pulse Ox 04/26/17 12:17 97.6 F 102 20 108/68 97 General: Conversant, Other (Displayed labored breathing while supine.) Neck: No JVD Cardiac: No Murmur, Other (Heart sounds were distant and difficult to hear. Slight tachycardia appreciated.) Lungs: Normal Breath Sounds, No Wheeze, Rales, Rhonchi, Other (Patient displayed labored breathing. ) Neuro: Alert and responsive Musculoskeletal: No Chest Wall Tenderness Extremities: No Clubbing, No Cyanosis, Other (+2 bilateral pitting edema of lower extremeties. L foot bandaged. +1 pedal pulses bilaterally.) Other: Presence of scrotal edema. Results 04/26/17 05:40 04/26/17 05:40 Lab Results 04/26/17 04/26/17 05:40 05:40 WBC 11.2 H Hgb 7.3 L Hct 25.2 L Plt Count 397 Sodium 136 Potassium 4.3 Chloride 103 Carbon Dioxide 22 BUN 38 H Creatinine 1.22 Glucose 145 H Calcium 8.2 L - Imaging and Cardiology Chest Xray: report reviewed (Worsening pulmonary edema and increasing pleural effusions.) Other Results: Liver U/S: cirrhosis. perihepatic ascites. No acute gallbadder findings. Consult Discharge Plan - Plan Referrals: Damian Seymour MD [Primary Care Provider] - <Zack Garcia - Last Filed: 04/26/17 20:15> Date of Encounter: 04/26/17 Assessment and Plan (1) Congestive heart failure Current Visit: Yes Status: Acute Qualifiers: Congestive heart failure type: systolic Congestive heart failure chronicity : acute on chronic Qualified Code(s): I50.23 - Acute on chronic systolic ( congestive) heart failure Discussion w patient/family: The assessment and plan as outlined above was discussed with the patient and/or family members who expressed understanding and agreement. All questions were answered. Thank you for involving us in the care of your patient. Please call with any questions. Objective Vital Signs, Last 4 Hours Temp Pulse Resp BP Pulse Ox 04/26/17 20:00 19 92 04/26/17 19:34 97.3 F L 102 18 97/61 96 Results 04/26/17 05:40 04/26/17 05:40 Lab Results 04/26/17 04/26/17 05:40 05:40 WBC 11.2 H Hgb 7.3 L Hct 25.2 L Plt Count 397 Sodium 136 Potassium 4.3 Chloride 103 Carbon Dioxide 22 BUN 38 H Creatinine 1.22 Glucose 145 H Calcium 8.2 L - Attending Attestation PT seen and examined independently, chart reviewed, essentially agree with above findings CC Shortness of breath and scotal swelling Pt reports increased lower extremity and scrotal edema. He has not been up to chair. He notes is more short of breath over the last 24 hours. He is now unable to lie flat past 45 degrees without provocation of dyspnea. IMP/Plan 1. Acute on chronic combined systolic and diastolic heart failure, worsening, agree with switch to IV lasix, monitor diuresis, 2. PAF - in NSR, back on amiodarone, cont at 200 mg q d
[2017-04-27] MEDS: Ipratropium/Albuterol Neb 3 ML IH SCH ×6 (04:08→23:08)
[2017-04-27 07:13] LABS: Hemoglobin 7.2 g/dL (12.9-16.9); Immature Platelets 1.7 % (1.1-6.1); Mean Corpuscular HGB Conc 28.8 g/dL (31.6-35.5); Mean Corpuscular Hemoglobin 26.3 pg (28.0-33.3); Mean Corpuscular Volume 91.2 fL (83.0-100.0); Mean Platelet Volume 9.3 fL (9.4-12.4); Red Blood Count 2.74 M/mcL (4.19-5.50); Red Cell Distribution Width 19.4 % (11.5-14.5)
[2017-04-27 07:26] LABS: Alanine Aminotransferase 22 Units/L (0-55); Albumin 2.3 g/dL (3.5-5.0); Albumin/Globulin Ratio 0.7 (1.1-2.2); Alkaline Phosphatase 106 Units/L (38-126); Aspartate Amino Transferase 18 Units/L (5-34); BUN/Creatinine Ratio 33 (6-26); Bilirubin,Total 0.3 mg/dL (0.2-1.2); Blood Urea Nitrogen 30 mg/dL (8-26); Calcium 8.5 mg/dL (8.6-10.8); Carbon Dioxide 28 mEq/L (19-29); Chloride 103 mEq/L (98-109); Globulin 3.5 g/dL (2.4-3.5); Glucose 162 mg/dL (70-99); Osmolality,Calculated 294 (280-300); Potassium 3.7 mEq/L (3.5-4.5); Sodium 137 mEq/L (136-145); Total Protein 5.8 g/dL (6.0-8.3); eGFR For African Americans > 60 (> 60); eGFR For Non-African Americans > 60 (> 60)
[2017-04-27] MEDS: Budesonide/Formoterol 160/4.5 MDI IH SCH ×2 (07:51→19:27)
[2017-04-27 08:25] LABS: AFP Tumor Marker Non-Pregnant 2 ng/mL (0-9); Alpha-1-Antitrypsin 217 mg/dL (90-200); Ceruloplasmin 27 mg/dL (17-54)
[2017-04-27 08:31] LABS: F-Actin (sm muscle) Ab IgG 29 Units (0-19)
--- NOTE | 2017-04-27 08:52 | Internal Med Progress Note ---
<Monalisa Jiang - Last Filed: 04/27/17 10:25> Date of Encounter: 04/27/17 Time of Encounter: 08:48 - Assessment and plan (1) Acute and chronic respiratory failure Current Visit: Yes Status: Acute Assessment and plan: Currently on 2L NC Patient continues to be SOB intermittently Per nursing he would not wear his BiPAP overnight Tachycardic, dizzy, clinically appears more lethargic and worse today Plan: -Will get orthostatic vitals -ABG -Continue Supplemental oxygen, wean as tolerated -BiPAP at night -Continue duonebs, symbicort, prn albuterol Qualifiers: Respiratory failure complication: hypoxia Qualified Code(s): J96.21 - Acute and chronic respiratory failure with hypoxia (2) Congestive heart failure Current Visit: Yes Status: Acute Assessment and plan: Acute on Chronic systolic and diastolic HF, Cardiology consulted. ECHO 04/23/17: LVEF 50-55%; LV diastolic dysfunction; atypical septal motion, mild concentric LVH;elevated RA pressures Patient continues to have edema of the UE/LE/Scrotum [facility] recommended, but pt has been too anemic, GI consulted and plan to scope Scr improving, 0.92<1.22<1.42 Increased SOB yesterday with CXR showing increased pulmonary edema. Lasix was changed to 40mg IV BID Plan: -Continue BB, statin, ASA, PO lasix -Continue Fluid restriction -Continue diuresis -Strict I/Os. -Daily weights Qualifiers: Congestive heart failure type: systolic Congestive heart failure chronicity : acute on chronic Qualified Code(s): I50.23 - Acute on chronic systolic ( congestive) heart failure (3) Iron deficiency anemia Current Visit: Yes Status: Chronic Assessment and plan: Endoscopy in January. No source of bleeding. Hgb 7.2, decreased from 8.1 at admission but stable Stated hx of melena, abd pain during admission Per records had EGD in January suggesting Pryor's esophagus, numerous polyps No current obvious source of blood loss GI consulted, plan to have 2 day prep and colonoscopy on Patient may require a transfusion to be able to have [facility] Plan: -Continue to monitor H/H, transfuse as needed -Bowel prep per GI -Will hold Xarelto, planning for scope Qualifiers: Iron deficiency anemia type: unspecified iron deficiency Qualified Code(s) : D50.9 - Iron deficiency anemia, unspecified (4) Diabetes mellitus with neuropathy Current Visit: No Status: Chronic Assessment and plan: BS stable 140's-200 Plan: -Continue SSI -accuchecks ACHS. Qualifiers: Diabetes mellitus type: type 2 Diabetes mellitus retirement insulin use: unspecified retirement insulin use status Qualified Code(s): E11.40 - Type 2 diabetes mellitus with diabetic neuropathy, unspecified (5) Scrotal edema Current Visit: Yes Status: Acute Assessment and plan: Elevate scrotum. (6) Essential hypertension Current Visit: No Status: Chronic Assessment and plan: Continue home meds. (7) COPD (chronic obstructive pulmonary disease) Current Visit: No Status: Chronic Assessment and plan: Chronic Plan: -Continue home meds -Continue oxygen -BiPAP at night Qualifiers: COPD type: unspecified COPD Qualified Code(s): J44.9 - Chronic obstructive pulmonary disease, unspecified (8) Afib Current Visit: No Status: Chronic Assessment and plan: Hx chronic afib, presented on amiodarone and anticoagulation (xarelto) Plan: -Xarelto on hold starting today for colonoscopy -Continue amiodarone Qualifiers: Atrial fibrillation type: paroxysmal Qualified Code(s): I48.0 - Paroxysmal atrial fibrillation - Subjective Interval history: Patient seen and examined. He notes that he feels less short of breath this morning compared to yesterday, but that he is very dizzy. He states that he was sitting on the edge of his bed and got dizzy and almost fell out of bed trying to lie back down. He continues to feel dizzy in bed. Denies palpitations, cp. He states nursing staff was unable to insert a navarrete yesterday. Nursing states he was not compliant with wearing BiPAP last night. - Constitutional Vitals: Temp Pulse Resp BP Pulse Ox 97.5 F L 105 20 114/72 99 04/27/17 07:28 04/27/17 07:28 04/27/17 07:28 04/27/17 07:28 04/27/17 07:28 General appearance: Present: cooperative, mild distress, A&O X 3, morbidly obese , pleasant, answers questions appropriately - Head Head exam: Present: atraumatic, normocephalic - Eye Eye exam: Present: EOMI, periorbital swelling, PERRL, conjuntiva pink, sclera anicteric Pupils: Present: PERRL - Neck Neck exam general surgery: Present: supple, trachea midline - Respiratory Respiratory exam: Present: decreased breath sounds, rales (b/l bases). Absent: accessory muscle use, respiratory distress, tachypnea - Cardiovascular Cardiovascular exam: Present: tachycardia - GI/Abdominal GI/Abdominal exam: Present: distended, firm, normal bowel sounds. Absent: tenderness Additional comments: anasarca - exam: Present: scrotal swelling - Extremities Exam Extremities exam: Present: normal capillary refill, pedal edema, warm, radial pulses palpable and symmetrical Additional comments: chronic venous stasis changes Ulcer on left heel, dressing in place - Neurological Exam Neurological exam: Present: alert, oriented X3. Absent: facial droop, speech deficit - Psychiatric Psychiatric exam: Present: normal affect, normal mood - Skin Skin exam: Present: dry, warm Additional comments: chronic venous stasis changes b/l LE excoriations that are scabbed over on arms Internal Medicine: Result - Labs CBC & Chem 7: 04/27/17 06:48 04/27/17 06:48 Labs: Short CBC 04/27/17 Range/Units 06:48 WBC 11.0 (4.3-11.1) K/mcL Hgb 7.2 L (12.9-16.9) g/dL Hct 25.0 L (37.5-50.1) % Plt Count 460 H (140-400) K/mcL BMP 04/27/17 06:48 Sodium 137 Potassium 3.7 Chloride 103 Carbon Dioxide 28 BUN 30 H Creatinine 0.92 Glucose 162 H Calcium 8.5 L Liver Function 04/27/17 Range/Units 06:48 Total Bilirubin 0.3 (0.2-1.2) mg/dL AST 18 (5-34) Units/L ALT 22 (0-55) Units/L Alkaline Phosphatase 106 (38-126) Units/L Albumin 2.3 L (3.5-5.0) g/dL - ABG Interpretation ABG results: PT/INR, D-dimer PT 28.3 Seconds (9.4-12.1) H 04/25/17 12:13 - Impressions Impressions Chest X-Ray 04/26/17 10:11 IMPRESSION: Worsening pulmonary edema and increasing pleural effusions consistent with worsening CHF. D/ / Татьяна Collins MD / Татьяна Collins MD Interpreting Provider: Татьяна Collins MD Consult Discharge Plan - Plan Referrals: Damian Seymour MD [Primary Care Provider] - <Dutch Kee H - Last Filed: 04/27/17 10:51> Date of Encounter: 04/27/17 - Constitutional Vitals: Temp Pulse Resp BP Pulse Ox 97.5 F L 105 20 114/72 96 04/27/17 07:28 04/27/17 07:28 04/27/17 09:07 04/27/17 07:28 04/27/17 09:07 Internal Medicine: Result - Labs CBC & Chem 7: 04/27/17 06:48 04/27/17 06:48 Labs: Short CBC 04/27/17 Range/Units 06:48 WBC 11.0 (4.3-11.1) K/mcL Hgb 7.2 L (12.9-16.9) g/dL Hct 25.0 L (37.5-50.1) % Plt Count 460 H (140-400) K/mcL BMP 04/27/17 06:48 Sodium 137 Potassium 3.7 Chloride 103 Carbon Dioxide 28 BUN 30 H Creatinine 0.92 Glucose 162 H Calcium 8.5 L Liver Function 04/27/17 Range/Units 06:48 Total Bilirubin 0.3 (0.2-1.2) mg/dL AST 18 (5-34) Units/L ALT 22 (0-55) Units/L Alkaline Phosphatase 106 (38-126) Units/L Albumin 2.3 L (3.5-5.0) g/dL - ABG Interpretation ABG results: PT/INR, D-dimer PT 28.3 Seconds (9.4-12.1) H 04/25/17 12:13 - Impressions Impressions Chest X-Ray 04/26/17 10:11 IMPRESSION: Worsening pulmonary edema and increasing pleural effusions consistent with worsening CHF. D/ / Татьяна Collins MD / Татьяна Collins MD Interpreting Provider: Татьяна Collins MD - Attending Attestation Acute on chronic hypoxic respiratory failure secondary to acute systolic and diastolic CHF exacerbation with bilateral pleural effusions and acute pulmonary edema continue Lasix IV, strict I's and O's, daily weight Left greater toe ulcer, no signs of infection, discontinued Zosyn Followed by podiatry I examined this patient and my medical decision-making was reviewed with the Resident Physician. I agree with the documented findings, disposition and treatment plan as described except to the extent set forth below.
[2017-04-27] MEDS: Diltiazem CD (24hr) 180 MG CAPSULE PO SCH ×2 (09:32→20:42)
[2017-04-27] MEDS: Aspirin 81 MG TAB.CHEW PO SCH (09:32)
[2017-04-27] MEDS: Metoprolol XL (24 HR) Succ 50 MG TAB.ER.24H PO SCH (09:32)
[2017-04-27] MEDS: Insulin LISPRO 300 UNITS/3 ML VIAL SQ SCH ×4 (09:33→20:42)
[2017-04-27] MEDS: *HR* Amiodarone 200 MG TABLET PO SCH (09:33)
[2017-04-27] MEDS: Nicotine 21 MG PATCH.TD24 TD SCH (09:34)
[2017-04-27] MEDS: Furosemide 40 MG/4 ML VIAL IVP SCH ×2 (09:34→20:42)
[2017-04-27] MEDS: Potassium Chloride Elixir 20 MEQ/15 ML UDC PO SCH ×3 (09:34→20:42)
[2017-04-27 13:06] LABS: ANA IgG by ELISA NONE DETECTED (None Detected)
[2017-04-27] MEDS ORDERED: SODIUM CHLORIDE/NAHCO3/KCL/PEG 4,000 ML SOLN.RECON PO ONE (17:00)
--- NOTE | 2017-04-27 17:35 | Cardiology Progress Note ---
<Jerome Lund - Last Filed: 04/27/17 17:57> Date of Encounter: 04/27/17 Time of Encounter: 09:30 Assessment and Plan (1) Acute congestive heart failure Current Visit: Yes Status: Acute Most likely acute on chronic systolic and diastolic heart failure. His LVEF in January was 45%, previously 55-60% - was not seen by Cardiology at that time. Repeat LVEF during a recent visit was also 45-50%. Unfortunately, he's been periodically anemic and doesn't appear to be a good candidate for [facility]. Patient will be undergoing a colonoscopy on . Xarelto is currently on hold. Patient weight has dropped from 153 kg to 151 kg since yesterday. Recommend continuing BB and statin. Continue aspirin if tolerated. Latest Chest X-ray from 04/26/17 shows worsening pulmonary edema. Patient says his shortness of breath at rest has improved since yesterday. Continue IV lasix 40 mg BID. Qualifiers: Congestive heart failure type: unspecified congestive heart failure type Qualified Code(s): I50.9 - Heart failure, unspecified (2) Afib Current Visit: No Status: Chronic History of Afib, previously on amiodarone which was stopped during last visit presumably because of lack of regular follow up and stopping anticoagulation. Presented then with AFL/Atach and medications were maximized. However amiodarone was included on discharge summary and he is presently on this. Current Hgb went down from 7.3 to 7.2. Recommend continuing amiodarone at this time. Patient has colonoscopy on . Xarelto on hold. Continue cardizem, toprol. Qualifiers: Atrial fibrillation type: paroxysmal Qualified Code(s): I48.0 - Paroxysmal atrial fibrillation Discussion w patient/family: The assessment and plan as outlined above was discussed with the patient and/or family members who expressed understanding and agreement. All questions were answered. Thank you for involving us in the care of your patient. Please call with any questions. Subjective Principal diagnosis: CHF, AFIB Interval history: When spoken to today, patient says that when he is at rest, his shortness of breath has improved since yesterday. He did mention that early in the morning when he tried to sit up, he became short of breath that lasted for 20-30 min and heart palpitations which lasted a few minutes. He denies any chest pain, numbness/tingling, headaches, vision blurriness, syncope, nausea, or vomiting. Objective Vital Signs, Last 4 Hours Temp Pulse Resp BP Pulse Ox 04/27/17 15:45 97.7 F 88 22 100/63 96 04/27/17 15:05 18 97 General: Conversant, No Apparent Distress Neck: No JVD Cardiac: Other (Slighty tachycardic. ) Lungs: Normal Breath Sounds, No Wheeze, Rales, Rhonchi, Other (Patient displayed less dyspnea at rest compared to yesterday.) Neuro: Alert and responsive Musculoskeletal: No Chest Wall Tenderness Extremities: No Clubbing, No Cyanosis, Other (+1 pitting edema bilaterally of lower extremeties. +1 pedal pulses bilaterally.) Results 04/27/17 06:48 04/27/17 06:48 Lab Results 04/27/17 04/27/17 06:48 06:48 WBC 11.0 Hgb 7.2 L Hct 25.0 L Plt Count 460 H Sodium 137 Potassium 3.7 Chloride 103 Carbon Dioxide 28 BUN 30 H Creatinine 0.92 Glucose 162 H Calcium 8.5 L Total Bilirubin 0.3 AST 18 ALT 22 Alkaline Phosphatase 106 Consult Discharge Plan - Plan Referrals: Damian Seymour MD [Primary Care Provider] - <Zack Garcia - Last Filed: 04/28/17 13:17> Date of Encounter: 04/28/17 Time of Encounter: 16:20 Assessment and Plan (1) Congestive heart failure Current Visit: Yes Status: Acute Qualifiers: Congestive heart failure type: systolic Congestive heart failure chronicity : acute on chronic Qualified Code(s): I50.23 - Acute on chronic systolic ( congestive) heart failure Discussion w patient/family: The assessment and plan as outlined above was discussed with the patient and/or family members who expressed understanding and agreement. All questions were answered. Thank you for involving us in the care of your patient. Please call with any questions. Objective Vital Signs, Last 4 Hours Temp Pulse Resp BP Pulse Ox 04/28/17 11:27 18 100 04/28/17 11:14 97.4 F L 103 16 110/70 100 Results 04/28/17 04:06 04/28/17 04:06 Lab Results 04/28/17 04/28/17 04:06 04:06 WBC 9.9 Hgb 7.3 L Hct 25.3 L Plt Count 403 H Sodium 136 Potassium 4.1 Chloride 103 Carbon Dioxide 27 BUN 24 Creatinine 0.84 Glucose 136 H Calcium 8.3 L - Attending Attestation Pt seen and examined independenty, chart reviewed, essentially agree with above , my evaluation as follows, Pt reports shortness of breath has improved, lower extremity and scrotal swelling have also improved. He has been more active, up to chair. He is not elevating legs when out of bed. Imp/Plan 1. Acute on chronic combined systolic and diastolic CHF, responding slowly to IV diuresis, continue Lasix IV q 12 through planned procedure until able to take orals reliably. 2. A fib, back in NSR with PACs and PVCs on oral amiodarone 3. Chronic anemia, eval in progress, anticipate colon prep for planned colonoscopy in AM
[2017-04-28] MEDS: Ipratropium/Albuterol Neb 3 ML IH SCH ×6 (04:14→23:11)
[2017-04-28 04:22] LABS: Basophils # 0.1 K/mcL (0.0-0.2); Basophils % 0.5 %; Eosinophils # 0.3 K/mcL (0.0-0.6); Eosinophils % 3.2 %; Hematocrit 25.3 % (37.5-50.1); Hemoglobin 7.3 g/dL (12.9-16.9); Immature Granulocytes % 0.2 % (0-4); Lymphocytes # 0.5 K/mcL (0.6-4.6); Lymphocytes % 5.4 %; Mean Corpuscular HGB Conc 28.9 g/dL (31.6-35.5); Mean Corpuscular Hemoglobin 26.9 pg (28.0-33.3); Mean Corpuscular Volume 93.4 fL (83.0-100.0); Mean Platelet Volume 9.3 fL (9.4-12.4); Monocytes # 1.1 K/mcL (0.0-1.3); Monocytes % 10.7 %; Neutrophils # 7.9 K/mcL (1.6-8.9); Platelet Count 403 K/mcL (140-400); Red Blood Count 2.71 M/mcL (4.19-5.50); Red Cell Distribution Width 19.7 % (11.5-14.5)
[2017-04-28 04:35] LABS: BUN/Creatinine Ratio 29 (6-26); Blood Urea Nitrogen 24 mg/dL (8-26); Calcium 8.3 mg/dL (8.6-10.8); Carbon Dioxide 27 mEq/L (19-29); Chloride 103 mEq/L (98-109); Glucose 136 mg/dL (70-99); Osmolality,Calculated 288 (280-300); Potassium 4.1 mEq/L (3.5-4.5); Sodium 136 mEq/L (136-145); eGFR For African Americans > 60 (> 60); eGFR For Non-African Americans > 60 (> 60)
[2017-04-28 04:52] LABS: Anisocytosis 1+ (Not Present); Hypochromasia Present (Not Present); Platelet Estimate Normal (Normal); Polychromasia 1+ (Not Present)
[2017-04-28 07:07] LABS: Myeloperoxidase Ab 3 AU/mL (0-19); Serine Protease-3 Antibody 0 AU/mL (0-19); Smooth Muscle Ab Titer IgG <1:20 (<1:20)
[2017-04-28] MEDS: Insulin LISPRO 300 UNITS/3 ML VIAL SQ SCH ×4 (07:32→21:55)
[2017-04-28] MEDS: Budesonide/Formoterol 160/4.5 MDI IH SCH ×2 (08:07→20:05)
--- NOTE | 2017-04-28 08:32 | Internal Med Progress Note ---
<Monalisa Jiang - Last Filed: 04/28/17 08:41> Date of Encounter: 04/28/17 Time of Encounter: 08:30 - Assessment and plan (1) Acute and chronic respiratory failure Current Visit: Yes Status: Acute Assessment and plan: Currently on 2L NC Patient continues to be SOB intermittently Plan: -Continue Supplemental oxygen, wean as tolerated -BiPAP at night -Continue duonebs, symbicort, prn albuterol Qualifiers: Respiratory failure complication: hypoxia Qualified Code(s): J96.21 - Acute and chronic respiratory failure with hypoxia (2) Congestive heart failure Current Visit: Yes Status: Acute Assessment and plan: Acute on Chronic systolic and diastolic HF, Cardiology consulted. ECHO 04/23/17: LVEF 50-55%; LV diastolic dysfunction; atypical septal motion, mild concentric LVH;elevated RA pressures Patient continues to have edema of the UE/LE/Scrotum LHC recommended, but pt has been too anemic, GI consulted and plan to scope Scr improving, 0.84<0.92<1.22 Still volume overloaded, Scr remains stable, will continue diuresis with IV lasix Plan: -Continue BB, statin, ASA, PO lasix -Continue Fluid restriction -Continue diuresis -Strict I/Os. -Daily weights Qualifiers: Congestive heart failure type: systolic Congestive heart failure chronicity : acute on chronic Qualified Code(s): I50.23 - Acute on chronic systolic ( congestive) heart failure (3) Iron deficiency anemia Current Visit: Yes Status: Chronic Assessment and plan: Endoscopy in January. No source of bleeding. Hgb 7.3, decreased from 8.1 at admission but stable Stated hx of melena, abd pain during admission Per records had EGD in January suggesting Pryor's esophagus, numerous polyps No current obvious source of blood loss GI consulted, plan to have colonoscopy today Patient may require a transfusion to be able to have [facility] Plan: -Continue to monitor H/H, transfuse as needed -Bowel prep per GI -Will hold Xarelto, planning for scope today Qualifiers: Iron deficiency anemia type: unspecified iron deficiency Qualified Code(s) : D50.9 - Iron deficiency anemia, unspecified (4) Diabetes mellitus with neuropathy Current Visit: No Status: Chronic Assessment and plan: BS stable 140's-200 Plan: -Continue SSI -accuchecks ACHS. 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 (6) Essential hypertension Current Visit: No Status: Chronic Assessment and plan: Continue home meds. (7) COPD (chronic obstructive pulmonary disease) Current Visit: No Status: Chronic Assessment and plan: Chronic Plan: -Continue home meds -Continue oxygen -BiPAP at night Qualifiers: COPD type: unspecified COPD Qualified Code(s): J44.9 - Chronic obstructive pulmonary disease, unspecified (8) Afib Current Visit: No Status: Chronic Assessment and plan: Hx chronic afib, presented on amiodarone and anticoagulation (xarelto) Plan: -Xarelto on hold for colonoscopy today -Continue amiodarone Qualifiers: Atrial fibrillation type: paroxysmal Qualified Code(s): I48.0 - Paroxysmal atrial fibrillation - Subjective Interval history: Patient seen and examined. He notes that he feels less short of breath this morning with some dizziness with exertion. Denies palpitations, cp. - Constitutional Vitals: Temp Pulse Resp BP Pulse Ox 96.4 F L 97 18 112/66 96 04/28/17 06:31 04/28/17 06:31 04/28/17 08:10 04/28/17 06:31 04/28/17 08:10 General appearance: Present: cooperative, mild distress, A&O X 3, morbidly obese , pleasant, answers questions appropriately - Head Head exam: Present: atraumatic, normocephalic - Eye Eye exam: Present: EOMI, periorbital swelling, conjuntiva pink, sclera anicteric - Neck Neck exam general surgery: Present: normal inspection, supple, trachea midline - Respiratory Respiratory exam: Present: decreased breath sounds, CTAB. Absent: accessory muscle use, respiratory distress, tachypnea - Cardiovascular Cardiovascular exam: Present: tachycardia. Absent: diastolic murmur, gallop, rubs, systolic murmur - GI/Abdominal GI/Abdominal exam: Present: firm, normal bowel sounds, no peritoneal signs. Absent: distended, tenderness Additional comments: anasarca - exam: Present: scrotal swelling External exam: Present: swelling - Extremities Exam Extremities exam: Present: normal capillary refill, pedal edema, warm, radial pulses palpable and symmetrical. Absent: calf tenderness Additional comments: chronic venou stasis changes Ulcer on left heel, dressing in place Excoriation on left great toe posteriorly, no bleeding or erythema noted - Neurological Exam Neurological exam: Present: oriented X3, no focal deficits. Absent: facial droop, speech deficit - Psychiatric Psychiatric exam: Present: normal affect, normal mood - Skin Skin exam: Present: dry, excoriation, warm. Absent: erythema Additional comments: chronic venous stasis changes b/l LE excoriations that are scabbed over on arms Internal Medicine: Result - Labs CBC & Chem 7: 04/28/17 04:06 04/28/17 04:06 Labs: Short CBC 04/28/17 Range/Units 04:06 WBC 9.9 (4.3-11.1) K/mcL Hgb 7.3 L (12.9-16.9) g/dL Hct 25.3 L (37.5-50.1) % Plt Count 403 H (140-400) K/mcL Neutrophils # 7.9 (1.6-8.9) K/mcL BMP 04/28/17 04:06 Sodium 136 Potassium 4.1 Chloride 103 Carbon Dioxide 27 BUN 24 Creatinine 0.84 Glucose 136 H Calcium 8.3 L - ABG Interpretation ABG results: PT/INR, D-dimer PT 28.3 Seconds (9.4-12.1) H 04/25/17 12:13 Consult Discharge Plan - Plan Referrals: Damian Seymour MD [Primary Care Provider] - <Dutch Kee H - Last Filed: 04/28/17 14:36> Date of Encounter: 04/28/17 - Constitutional Vitals: Temp Pulse Resp BP Pulse Ox 97.4 F L 103 18 110/70 100 04/28/17 11:14 04/28/17 11:14 04/28/17 11:27 04/28/17 11:14 04/28/17 11:27 Internal Medicine: Result - Labs CBC & Chem 7: 04/28/17 04:06 04/28/17 04:06 Labs: Short CBC 04/28/17 Range/Units 04:06 WBC 9.9 (4.3-11.1) K/mcL Hgb 7.3 L (12.9-16.9) g/dL Hct 25.3 L (37.5-50.1) % Plt Count 403 H (140-400) K/mcL Neutrophils # 7.9 (1.6-8.9) K/mcL BMP 04/28/17 04:06 Sodium 136 Potassium 4.1 Chloride 103 Carbon Dioxide 27 BUN 24 Creatinine 0.84 Glucose 136 H Calcium 8.3 L - ABG Interpretation ABG results: PT/INR, D-dimer PT 28.3 Seconds (9.4-12.1) H 04/25/17 12:13 - Attending Attestation Acute on chronic hypoxic respiratory failure secondary to acute systolic and diastolic CHF exacerbation with bilateral pleural effusions and acute pulmonary edema continue Lasix IV, strict I's and O's, daily weight Left greater toe ulcer, no signs of infection, discontinued Zosyn Followed by podiatry COlonoscopy and EGD today I examined this patient and my medical decision-making was reviewed with the Resident Physician. I agree with the documented findings, disposition and treatment plan as described except to the extent set forth below.
[2017-04-28] MEDS: Metoprolol XL (24 HR) Succ 50 MG TAB.ER.24H PO SCH (11:41)
[2017-04-28] MEDS: Diltiazem CD (24hr) 180 MG CAPSULE PO SCH ×2 (11:41→19:43)
[2017-04-28] MEDS: *HR* Amiodarone 200 MG TABLET PO SCH (11:41)
[2017-04-28] MEDS: Aspirin 81 MG TAB.CHEW PO SCH (11:41)
[2017-04-28] MEDS: Potassium Chloride Elixir 20 MEQ/15 ML UDC PO SCH ×3 (11:41→19:43)
[2017-04-28] MEDS: Furosemide 40 MG/4 ML VIAL IVP SCH ×2 (11:47→19:44)
[2017-04-28] MEDS: Nicotine 21 MG PATCH.TD24 TD SCH (11:48)
--- NOTE | 2017-04-28 12:58 | Palliative - Consult Note ---
Date of Encounter: 04/28/17 Time of Encounter: 10:45 - Assessment and Plan (1) Goals of care, counseling/discussion Current Visit: Yes Status: Acute Assessment and plan: Patient with EF 45-50% and O2 dependent at home at 3L NC. Patient reports being noncompliant with therapies but still desires to received medical interventions for chronic conditions such as COPD, CHF, Anemia and HTN. Patient desires to remain Full Code. He desires intubation and mechanical ventilation and has stated that if he ever needed a tracheostomy tube that he would want that. He refused to complete Advanced directives as he states that his Yolande knows his wishes. The patient doesn't meet hospice criteria at present with his EF and his desires to have treatment. I called his Maty and had a long phone conversation. She agrees to have patient come home at [place] with Margaret and Palliative outpatient care. I explained that patient still desires treatment and that he wants to remain a full code. Manjinder WATERS will follow- up with Yolande to arrange home care. Patient is scheduled to Colonoscopy later today and desires to return home at [place]. Plan is patient to remain Full Code and DC home at time of [place]. (2) Congestive heart failure Current Visit: Yes Status: Acute Qualifiers: Qualified Code(s): I50.23 - Acute on chronic systolic (congestive) heart failure (3) COPD (chronic obstructive pulmonary disease) Current Visit: No Status: Chronic Qualifiers: Qualified Code(s): J44.9 - Chronic obstructive pulmonary disease, unspecified Palliative-CN HPI - Data of Consult Patient: new to practice Consult date: 04/28/17 Requesting Physician: Dutch Kee Primary Care Provider: Damian Seymour, - Consult Narrative Palliative Care/Comfort Measures: Palliative care Reason for consult: Goals of Care History of present illness: Mr. Diaz is a 71 year old malewith PMH of CHF, COPD, DM, HTN, pacemaker, chronic anemia, and arthritis. Patient admitted on 04/22/17 with generalized swelling and SOB. Upon this consult the patient is sitting at bedside and agrees to talk. The patient is to Yolande of 49 years. He is oxygen dependent on 2L NC. He reports wearing Bipap at night and tolerating this well. This palliative care consult is for [facility] discussion. CC: Dutch Kee Past Med Surg Social Fam HX - Past Medical History Source: patient, old records reviewed, obtained from family, nursing notes reviewed Medical history: arthritis, atrial fibrillation, CHF, COPD, diabetes, hyperlipidemia, hypertension Psychiatric history: no psych history - Past Surgical History Surgical History: orthopedic, other, pacemaker/AICD - Social History Smoking Status: Former smoker Smokeless Tobacco Status: No Alcohol use: none Drug use: marijuana Occupational status: unemployed Current living situation: Home Activity Level: Uses cane/walker Recent Out of Country Travel Within the Last 8 Weeks: No Exposure or Possible Exposure to Illness During Travel: No - Family History Father History Unknown: Yes Hx Family Cardiac Disorders: Yes (Quadruple Bypass) Mother History Unknown: Yes Family Member Ethnicity: Non- Living Status: Medications and Allergies Amiodarone [Cordarone] 200 mg PO DAILY 04/28/15 [History] Aspirin 81 mg PO DAILY 04/28/15 [History] Atorvastatin [Lipitor] 40 mg PO HS 04/28/15 [History] Citalopram [CeleXA] 40 mg PO DAILY 04/28/15 [History] Docosahexanoic Acid/Epa [Fish Oil Concentrate Softgel] 1 each PO DAILY 04/28/15 [History] Ferrous Sulfate 325 mg PO BIDWM 04/28/15 [History] Garlic 1,000 mg PO DAILY 04/28/15 [History] GlipiZIDE XL (24 HR) [Glucotrol XL] 20 mg PO QAM 04/28/15 [History] Insulin DETEMIR [Levemir] 70 units SQ BID 04/28/15 [History] SitaGLIPtin [Januvia] 100 mg PO DAILY 04/28/15 [History] Albuterol Sulfate [Proair Hfa] 2 puff IH Q4H PRN 01/25/17 [History] Budesonide/Formoterol 160/4.5 [Symbicort 160/4.5] 2 puff IH BIDR 01/25/17 [ History] Metoprolol Succinate 200 mg PO DAILY 01/25/17 [History] Oxygen 2 l NS CONT 02/03/17 [History] Furosemide [Lasix] 60 mg PO BID #180 tab 02/08/17 [Rx] Dextrose Gel [Gluctose] 30 gm PO ONCE PRN #0 gel..gram. 02/23/17 [Rx] Glucagon, Human Recombinant [Glucagen] 1 mg IM ONCE PRN #0 vial 02/23/17 [Rx] Nicotine Patch [Nicoderm] 21 mg TD DAILY #30 patch.td24 02/23/17 [Rx] Nitroglycerin 0.4 mg SL Q5MIN PRN #0 tab.subl 02/23/17 [Rx] Potassium Chloride 8 meq PO DAILY tablet.er 02/23/17 [Rx] Tiotropium [Spiriva] 18 mcg IH 0800 #30 inh 02/23/17 [Rx] metFORMIN [Glucophage] 1,000 mg PO BIDWM tablet 02/23/17 [Rx] Diltiazem HCl [Diltiazem 24Hr Cd] 180 mg PO BID 04/06/17 [History] Insulin LISPRO [HumaLOG] 4 - 16 units SQ TIDAC 04/06/17 [History] Meclizine HCl [Verticalm] 25 - 50 mg PO Q4H PRN 04/06/17 [History] Rivaroxaban [Xarelto] 20 mg PO DAILY 04/06/17 [History] Collagenase Oint [Santyl] 1 appl TP DAILY 04/14/17 [Rx] 3 Allergy/AdvReac Type Severity Reaction Status Date / Time bupropion [From Wellbutrin] Allergy Difficulty Verified 04/28/15 08:53 Breathing codeine Allergy Difficulty Verified 04/28/15 08:53 Breathing Opioids-Meperidine and Allergy Difficulty Verified 04/28/15 08:53 Related Breathing [Opioids-Meperidine & Related] All systems: reviewed and no additional remarkable complaints except as stated ( SOB, genralized swelling, foot ulcers and weight gain) - Constitutional Constitutional ROS PAL: fatigue - EENT Eyes: requires corrective lenses - Cardiovascular Cardiovascular ROS: edema, leg edema, orthopnea, pedal edema - Respiratory Respiratory: cough, dyspnea, dyspnea on exertion - Gastrointestinal Gastrointestinal: melena - Genitourinary Genitourinary ROS male: urinary frequency - Musculoskeletal Musculoskeletal ROS IM: arthralgias - Integumentary ROS Integumentary: wounds (DM foot ulcers left foot) - Neurological Neurological ROS: weakness - Psychiatric Psychiatric general PM: irritability Palliative Care-Exam - Constitutional Vitals: Temp Pulse Resp BP Pulse Ox 97.4 F L 103 18 110/70 100 04/28/17 11:14 04/28/17 11:14 04/28/17 11:27 04/28/17 11:14 04/28/17 11:27 General appearance: Present: cooperative, no acute distress Exam: Reports being less SOB. Bedside sats 94% with O2 - Head Head Exam: Present: atraumatic, normal inspection, normocephalic - Eye Eye exam: Present: normal appearance, PERRL - ENT ENT exam: Present: mucous membranes moist - Neck Neck exam: Present: full ROM - Respiratory Respiratory exam: Present: decreased breath sounds - Expanded Respiratory Exam Location: decreased breath sounds: Left, Right, Lower - Cardiovascular Cardiovascular exam: Present: +S1, +S2, tachycardia - Expanded Cardiovascular Exam Peripheral pulses: 1+: Femoral (L) PM, Femoral (R) PM, Posterior Tibialis (L), Posterior Tibialis (R), Dorsalis Pedis (L) PM, Dorsalis Pedis (R) PM, 2+: Carotid (L) PM, Carotid (R) PM, Radial (L), Radial (R) - GI/Abdominal Exam GI/Abdominal exam: Present: normal bowel sounds additional comments: BM this AM - Rectal Rectal Exam: Present: deferred Additional comments: patient to have Colonoscopy this PM - exam: Present: scrotal swelling Additional comments: per urinal. Incontinent - Extremities Exam Extremities exam: Present: pedal edema (2+ pedal and thigh edema) - Expanded Upper Extremities Exam Shoulder exam: Present: full ROM Upper Arm exam: Present: full ROM Forearm wrist exam: Present: full ROM - Expanded Lower Extremities Exam Upper Leg exam: Present: full ROM Lower Leg exam: Present: full ROM - Neurological Exam Neurological exam: Present: alert, oriented X3 - Expanded Neurological Exam Patient oriented to: Present: person, place, time Cranial nerves: gag reflex: Normal Coma Scale Eye Opening: Spontaneous Coma Scale Motor Response: Obeys Commands Coma Scale Verbal Response: Oriented Coma Scale Total: 15 - Skin Skin exam: Present: warm Additional comments: Left foot with dressing. Wound care and podiatry following foot ulcers. Internal Medicine - CN: Reslt - Labs CBC & Chem 7: 04/28/17 04:06 04/28/17 04:06 Labs: Short CBC 04/28/17 Range/Units 04:06 WBC 9.9 (4.3-11.1) K/mcL Hgb 7.3 L (12.9-16.9) g/dL Hct 25.3 L (37.5-50.1) % Plt Count 403 H (140-400) K/mcL Neutrophils # 7.9 (1.6-8.9) K/mcL BMP 04/28/17 04:06 Sodium 136 Potassium 4.1 Chloride 103 Carbon Dioxide 27 BUN 24 Creatinine 0.84 Glucose 136 H Calcium 8.3 L - ABG Interpretation ABG results: PT/INR, D-dimer PT 28.3 Seconds (9.4-12.1) H 04/25/17 12:13 Consult Discharge Plan - Plan Referrals: Damian Seymour MD [Primary Care Provider] - Palliative Quality Palliative Quality: Screen for Code Status: Yes, Screen for Goals of Care: Yes, Screen for Pain: Yes, If Pain Regimen Started, Initiate Bowel Regimen: Yes, Screen for Nausea/Vomitting: Yes
--- NOTE | 2017-04-28 14:55 | Cardiology Progress Note ---
<Jerome Lund - Last Filed: 04/28/17 15:11> Date of Encounter: 04/28/17 Time of Encounter: 10:45 Assessment and Plan (1) Acute congestive heart failure Current Visit: Yes Status: Acute Most likely acute on chronic systolic and diastolic heart failure. His LVEF in January was 45%, previously 55-60% - was not seen by Cardiology at that time. Repeat LVEF during a recent visit was also 45-50%. Unfortunately, he's been periodically anemic and doesn't appear to be a good candidate for [facility]. Patient will be undergoing a colonoscopy today. Xarelto is currently on hold. Patient weight has increased from 151 kg to 153 kg since yesterday. No bowel movements this morning. Recommend continuing BB and statin. Continue aspirin if tolerated. Latest Chest X-ray from 04/26/17 shows worsening pulmonary edema. Patient says his shortness of breath at rest has improved since yesterday. Continue IV lasix 40 mg BID. Qualifiers: Congestive heart failure type: unspecified congestive heart failure type Qualified Code(s): I50.9 - Heart failure, unspecified (2) Afib Current Visit: No Status: Chronic History of Afib, previously on amiodarone which was stopped during last visit presumably because of lack of regular follow up and stopping anticoagulation. Presented then with AFL/Atach and medications were maximized. However amiodarone was included on discharge summary and he is presently on this. Current Hgb went up from 7.2 to 7.3. Recommend continuing amiodarone at this time. Patient has colonoscopy today. Xarelto on hold. Continue cardizem, toprol. Qualifiers: Atrial fibrillation type: paroxysmal Qualified Code(s): I48.0 - Paroxysmal atrial fibrillation Discussion w patient/family: The assessment and plan as outlined above was discussed with the patient and/or family members who expressed understanding and agreement. All questions were answered. Thank you for involving us in the care of your patient. Please call with any questions. Subjective Principal diagnosis: CHF, AFIB Interval history: When spoken to today, patient says that when he is at rest, his shortness of breath has improved since yesterday. He denies any chest pain, numbness/tingling , headaches, vision blurriness, syncope, nausea, or vomiting. Objective Vital Signs, Last 4 Hours Temp Pulse Resp BP Pulse Ox 04/28/17 11:27 18 100 04/28/17 11:14 97.4 F L 103 16 110/70 100 General: Conversant, No Apparent Distress Neck: No JVD Cardiac: Reg Rate and Rhythm, Normal S1 and S2, No Murmur Lungs: Normal Breath Sounds, No Wheeze, Rales, Rhonchi, Other (Patient displayed no dyspnea at rest.) Neuro: Alert and responsive Musculoskeletal: No Chest Wall Tenderness Extremities: No Clubbing, No Cyanosis, Other (+1 pitting edema bilaterally of lower extremeties. +1 pedal pulses bilaterally. ) Results 04/28/17 04:06 04/28/17 04:06 Lab Results 04/28/17 04/28/17 04:06 04:06 WBC 9.9 Hgb 7.3 L Hct 25.3 L Plt Count 403 H Sodium 136 Potassium 4.1 Chloride 103 Carbon Dioxide 27 BUN 24 Creatinine 0.84 Glucose 136 H Calcium 8.3 L Selected Entries 04/27/17 04:21 04/28/17 03:26 Weight 151.364 kg 153.632 kg Consult Discharge Plan - Plan Referrals: Damian Seymour MD [Primary Care Provider] - <Zack Garcia - Last Filed: 04/28/17 16:43> Date of Encounter: 04/28/17 Assessment and Plan (1) Congestive heart failure Current Visit: Yes Status: Acute Less edematous, not elevating lower extremities, both are dependent, discussed elevation at least thirty minutes three times a day, after completes prep for colonoscopy later toda. Qualifiers: Congestive heart failure type: systolic Congestive heart failure chronicity : acute on chronic Qualified Code(s): I50.23 - Acute on chronic systolic ( congestive) heart failure Discussion w patient/family: The assessment and plan as outlined above was discussed with the patient and/or family members who expressed understanding and agreement. All questions were answered. Thank you for involving us in the care of your patient. Please call with any questions. Objective Vital Signs, Last 4 Hours Temp Pulse Resp BP Pulse Ox 04/28/17 16:24 18 95 04/28/17 16:17 97.4 F L 105 17 105/70 96 Abdomen: Other (Severe scotal edema, slightly improved over last 24 hours. ) Results 04/28/17 04:06 04/28/17 04:06 Lab Results 04/28/17 04/28/17 04:06 04:06 WBC 9.9 Hgb 7.3 L Hct 25.3 L Plt Count 403 H Sodium 136 Potassium 4.1 Chloride 103 Carbon Dioxide 27 BUN 24 Creatinine 0.84 Glucose 136 H Calcium 8.3 L - Attending Attestation PT seen and examined independently, chart reviewed, essentially agree with above , my evaluation as below: CC shortness of breath and lower ext/scrotal swelling Pt reports less scrotal edema, less discomfort, legs are slightly less edematous. He reports mild abdominal cramping with colon prep, has not yet had a bowel movement. IMP/Plan 1. Acute on chronic combined diastoilic heart failure, improved on IV lasix, I& Os, daily weights not clearly accurate, but improved clinicalliy. Continue IV lasix until able to take orals, after colonoscopy. 2. Chronic anemia, colonoscopy planned for today. 3. A fib - maintaining NSR on oral amiodarone, continue same.
--- NOTE | 2017-04-28 15:13 | Electrocardiograph Report ---
[address] [place], [place] [address] Test Date: 2017-04-27 Pat Name: Jaime Diaz Department: 113 Room: 3B32 Gender: [employer] Distribution [employer] Operator: : [id number] Requested By: Dutch Kee Order Number: [id number] Reading MD: Michele Santana MD Measurements Intervals [place] Rate: 103 P: -37 WV: 270 QRS: 125 QRSD: 198 T: -43 QT: 441 QTc: 501 Interpretive Statements SINUS TACHYCARDIA WITH FIRST DEGREE AV BLOCK MARKED RIGHT AXIS DEVIATION RIGHT BUNDLE BRANCH BLOCK BASELINE ARTIFACT COMPLICATES ACCURATE INTERPRETATION Electronically Signed On 04-28-2017 15:12:07 EDT by Michele Santana MD
--- NOTE | 2017-04-28 16:28 | Event Note ---
Date of Encounter: 04/28/17 Time of Encounter: 14:00 Long phone conversation with patients daughter and . Manjinder WATERS participated in phone speaker conversation as well. Daughter was very vocal about patients noncompliance with medical care. States that patient doesn't comply with home PT or fluid restrictions and desires patient to be in Hospice care. I informed them that patient verbalized that he desired all medical treatment. Daughter reports that she wants male medical doctor to inform patient about his prognosis. I explained that patient desires medical care and not hospice. She explained that patient needs to hear prognosis is poor and that if he continues poor compliance he will likely . I explained that hospice criteria and goals of hospice care are for comfort care approach that patient is not likely to return to acute care but rather be managed at home. Manjinder discussed setting up meeting with MD to discuss patients desires. Meeting for tomorrow as patient is having Colonoscopy later today. Yolande will call Manjinder in AM to set-up meeting. We will continue to follow.
[2017-04-28] MEDS ORDERED: *HR* FentaNYL (PF) 100 MCG/2 ML VIAL ONE (17:30)
[2017-04-28] MEDS ORDERED: 0.9 % Sodium Chloride 1,000 ML IVC SCH (17:30)
[2017-04-28] MEDS ORDERED: *HR* Midazolam HCl 5 MG/5 ML VIAL IVP ONE (17:30)
[2017-04-28] MEDS ORDERED: Simethicone 40 MG/0.6 ML MLS IR ONE (17:59)
[2017-04-28] MEDS: *HR* Midazolam HCl 5 MG/5 ML VIAL IVP PRN ×2 (18:06→18:12)
[2017-04-28] MEDS: *HR* FentaNYL (PF) 100 MCG/2 ML VIAL IVP PRN ×2 (18:06→18:12)
[2017-04-29] MEDS: Ipratropium/Albuterol Neb 3 ML IH SCH ×6 (03:42→23:10)
[2017-04-29 05:00] LABS: Basophils % 0.5 %; Eosinophils # 0.2 K/mcL (0.0-0.6); Eosinophils % 2.8 %; Hematocrit 25.2 % (37.5-50.1); Hemoglobin 7.3 g/dL (12.9-16.9); Immature Granulocytes % 0.2 % (0-4); Lymphocytes # 0.4 K/mcL (0.6-4.6); Lymphocytes % 5.1 %; Mean Corpuscular Hemoglobin 26.9 pg (28.0-33.3); Mean Platelet Volume 9.4 fL (9.4-12.4); Monocytes # 0.9 K/mcL (0.0-1.3); Monocytes % 10.6 %; Neutrophils # 6.9 K/mcL (1.6-8.9); Platelet Count 403 K/mcL (140-400); Red Blood Count 2.71 M/mcL (4.19-5.50); Red Cell Distribution Width 19.7 % (11.5-14.5); Segmented Neutrophils % 80.8 %
[2017-04-29 05:17] LABS: BUN/Creatinine Ratio 21 (6-26); Blood Urea Nitrogen 18 mg/dL (8-26); Calcium 8.1 mg/dL (8.6-10.8); Carbon Dioxide 26 mEq/L (19-29); Chloride 105 mEq/L (98-109); Glucose 152 mg/dL (70-99); Osmolality,Calculated 293 (280-300); Potassium 3.6 mEq/L (3.5-4.5); Sodium 139 mEq/L (136-145); eGFR For African Americans > 60 (> 60); eGFR For Non-African Americans > 60 (> 60)
[2017-04-29] MEDS: Furosemide 40 MG/4 ML VIAL IVP SCH (08:29)
[2017-04-29] MEDS: Insulin LISPRO 300 UNITS/3 ML VIAL SQ SCH ×4 (08:29→20:45)
[2017-04-29] MEDS: Diltiazem CD (24hr) 180 MG CAPSULE PO SCH ×2 (08:29→20:17)
[2017-04-29] MEDS: Potassium Chloride Elixir 20 MEQ/15 ML UDC PO SCH ×3 (08:32→20:17)
[2017-04-29] MEDS: Nicotine 21 MG PATCH.TD24 TD SCH (08:32)
[2017-04-29] MEDS: Metoprolol XL (24 HR) Succ 50 MG TAB.ER.24H PO SCH (08:32)
[2017-04-29] MEDS: Aspirin 81 MG TAB.CHEW PO SCH (08:33)
[2017-04-29] MEDS: *HR* Amiodarone 200 MG TABLET PO SCH (08:33)
--- NOTE | 2017-04-29 08:34 | Discharge Summary ---
<Monalisa Jiang - Last Filed: 04/29/17 08:49> Date of Encounter: 04/29/17 Time of Encounter: 08:30 - Discharge Diagnosis (1) Acute and chronic respiratory failure Priority: Primary Status: Acute Qualifiers: Respiratory failure complication: hypoxia Qualified Code(s): J96.21 - Acute and chronic respiratory failure with hypoxia (2) Congestive heart failure Priority: Primary Status: Acute Qualifiers: Congestive heart failure type: systolic Congestive heart failure chronicity : acute on chronic Qualified Code(s): I50.23 - Acute on chronic systolic ( congestive) heart failure (3) Iron deficiency anemia Priority: Primary Status: Chronic Qualifiers: Iron deficiency anemia type: unspecified iron deficiency Qualified Code(s) : D50.9 - Iron deficiency anemia, unspecified (4) Diabetes mellitus with neuropathy Priority: Secondary Status: Chronic Qualifiers: Diabetes mellitus type: type 2 Diabetes mellitus intermediate manager insulin use: unspecified intermediate manager insulin use status Qualified Code(s): E11.40 - Type 2 diabetes mellitus with diabetic neuropathy, unspecified (5) Scrotal edema Priority: Primary Status: Acute (6) Essential hypertension Priority: Primary Status: Chronic (7) COPD (chronic obstructive pulmonary disease) Priority: Primary Status: Chronic Qualifiers: COPD type: unspecified COPD Qualified Code(s): J44.9 - Chronic obstructive pulmonary disease, unspecified (8) Afib Priority: Secondary Status: Chronic Qualifiers: Atrial fibrillation type: paroxysmal Qualified Code(s): I48.0 - Paroxysmal atrial fibrillation - Discharge Medications Home Medications: Amiodarone [Cordarone] 200 mg PO DAILY 04/28/15 [History] Aspirin 81 mg PO DAILY 04/28/15 [History] Atorvastatin [Lipitor] 40 mg PO HS 04/28/15 [History] Citalopram [CeleXA] 40 mg PO DAILY 04/28/15 [History] Docosahexanoic Acid/Epa [Fish Oil Concentrate Softgel] 1 each PO DAILY 04/28/15 [History] Ferrous Sulfate 325 mg PO BIDWM 04/28/15 [History] Garlic 1,000 mg PO DAILY 04/28/15 [History] GlipiZIDE XL (24 HR) [Glucotrol XL] 20 mg PO QAM 04/28/15 [History] Insulin DETEMIR [Levemir] 70 units SQ BID 04/28/15 [History] SitaGLIPtin [Januvia] 100 mg PO DAILY 04/28/15 [History] Albuterol Sulfate [Proair Hfa] 2 puff IH Q4H PRN 01/25/17 [History] Budesonide/Formoterol 160/4.5 [Symbicort 160/4.5] 2 puff IH BIDR 01/25/17 [ History] Metoprolol Succinate 200 mg PO DAILY 01/25/17 [History] Oxygen 2 l NS CONT 02/03/17 [History] Furosemide [Lasix] 60 mg PO BID #180 tab 02/08/17 [Rx] Dextrose Gel [Gluctose] 30 gm PO ONCE PRN #0 gel..gram. 02/23/17 [Rx] Glucagon, Human Recombinant [Glucagen] 1 mg IM ONCE PRN #0 vial 02/23/17 [Rx] Nicotine Patch [Nicoderm] 21 mg TD DAILY #30 patch.td24 02/23/17 [Rx] Nitroglycerin 0.4 mg SL Q5MIN PRN #0 tab.subl 02/23/17 [Rx] Potassium Chloride 8 meq PO DAILY tablet.er 02/23/17 [Rx] Tiotropium [Spiriva] 18 mcg IH 0800 #30 inh 02/23/17 [Rx] metFORMIN [Glucophage] 1,000 mg PO BIDWM tablet 02/23/17 [Rx] Diltiazem HCl [Diltiazem 24Hr Cd] 180 mg PO BID 04/06/17 [History] Insulin LISPRO [HumaLOG] 4 - 16 units SQ TIDAC 04/06/17 [History] Meclizine HCl [Verticalm] 25 - 50 mg PO Q4H PRN 04/06/17 [History] Rivaroxaban [Xarelto] 20 mg PO DAILY 04/06/17 [History] Collagenase Oint [Santyl] 1 appl TP DAILY 04/14/17 [Rx] Allergies/Adverse Reactions: 3 Allergy/AdvReac Type Severity Reaction Status Date / Time bupropion [From Wellbutrin] Allergy Difficulty Verified 04/28/15 08:53 Breathing codeine Allergy Difficulty Verified 04/28/15 08:53 Breathing Opioids-Meperidine and Allergy Difficulty Verified 04/28/15 08:53 Related Breathing [Opioids-Meperidine & Related] Procedures/tests Complete & Pending: Procedures Performed prior 72 hours Category Date Time Status ECG 12 lead ECG [ECG] Routine Y 04/27/17 11:44 Completed Date of admission: 04/22/17 22:57 Primary care physician: Damian Seymour, Consults: 04/25/17 06:00 Consult to Gastroenterology [CONS] Routine Consulting Provider: [facility] Reason for Consult: Dr. Woodard pt, dropping hgb, on xarelto with black stool Call Completed: Yes 04/25/17 14:19 Consult to Podiatry [CONS] Routine Consulting Provider: [facility] Reason for Consult: Patient treated by Podiatry on last admission - was D/C - was to have follow-up appointment today (Reese) Time Notified: 02:20 Call Completed: Yes 04/27/17 16:23 Consult to Palliative Care [CONS] Routine Comment: Consulting Provider: [facility] Reason for Consult: end stage CHF Call Completed: No Discharging clinician: Dutch Kee Anticipated date of discharge: 04/29/17 - Patient Status Disposition: Transfer SNF Condition: Fair Functional capacity at discharge: uses cane/walker Overall status at discharge: patient is progressing back to baseline - Discharge Instructions Follow Up With: Damian Seymour MD [Primary Care Provider] - 05/18/17 4:00 pm Additional Instructions: At discharge Cardiology would like you to continue: xarelto, aspirin, lipitor, amidoarone, cardizem and toprol. Follow and cardiac diet and a 2 liter fluid restriction. Take your medications as prescribed. Follow up with your primary care provider within 5 days. - Diet and Activity Activity: as per physical therapy Diet: low fat, low cholesterol, low salt diet, other (2 Liter fluid restriction) Interval History: Patient was seen and examined this morning. It was discussed with the patient that he must be compliant with his diet and fluid restrictions and medications or he will continue to end up returning to the hospital. The patient states that he understands and will comply with these things. He states that he desires discharge with home health. PT recommends ECF/SNF. Hospital course: Mr. Diaz is a 71 year old male who presented to [facility] on 04-22-17 with an increase in lower extremity edema, SOB and scrotal swelling. CXR in the ED indicated mild CHF with loculated right pleural effusion, BNP 490, Chemistry unremarkable with the exception of a potassium of 3.1, CBC showed an increase in WBCs 11.9 and anemia with hemoglobin 8.1 hematocrit 27.8. The patient is a former smoker, has many medical comorbidities, and is a high risk for a coronary event. Troponin the ED however, resulted 0.00. The patient was admitted for diuresis and ACS rule out. Troponins remained negative x3. Zosyn was started in the ED due to the scrotal swelling and excoriation, which was continued for 5 days. The patient has chronic iron deficiency anemia. Colonoscopy was completed in January 2017, multiple benign neoplasms. Cardiology evaluated the patient and felt that this was acute on chronic systolic and diastolic heart failure. His LVEF in January was 45%, previously 55-60%, repeat LVEF at a recent visit was also 45-50%. Unfortunately, because of anemia, he was not a good candidate for [facility] as he is on xarelto and hgb trending down. Recommend continuing BB, statin, aspirin. He was diuresed with 40mg IV BID of lasix, strict I/O's and daily weights. He has a history of Afib, previously on amiodarone which was stopped during last visit presumably because of lack of regular follow up and stopping anticoagulation. Presented then with AFL/Atach and medications were maximized. However amiodarone was included on discharge summary and he is presently on this. Cardiology recommended to continue amiodarone, cardizem and toprol. His rhythm is primarily V-paced. His Hgb on admission was 8.1, decreased to 7.2 on 04/24, and stabilized at 7.3. CT A/P shows hepatic surface nodularity compatible with cirrhosis, small volume abdominopelvic ascites. Multiple enlarged abdominal, retroperitoneal, and inguinal lymph nodes bilaterally raises the possibility for underlying lymphoproliferative disorder or metastatic disease. Colonoscopy 01/27/2017 Dr. Woodard: with multiple colon polyps ranging up to 12 mm size including sessile serrated adenoma, tubulovillous adenoma, and hyperplastic polyps with recommendation to repeat colonoscopy in 3-6 months with 2 day prep. EGD 2016 Dr. 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 GI evaluated the patient and did a 2 day prep with colonoscopy, which revealed 5 polyps that were removed and sent for pathology. No bleeding was found. The patient has stabilized. It was discussed with the patient that he needs to remain compliant with medications, diet and fluid restrictions or he will end up back in the hospital again and again. His family expressed concerns that he does not do this and desired him to go into hospice. He does not wish to do so and currently does not meet criteria for hospice based on EF. The patient desires to be discharged home with home health, although PT recommends ECF/SNF. The patient will continue his xarelto and Aspirin at discharge. Cardiology would like the patient to continue his amiodarone, cardizem and toprol on discharge, which has been done. - Time Spent with Patient Total time spent providing and/or coordinating discharge services: - Constitutional Vitals: Temp Pulse Resp BP Pulse Ox 97.3 F L 103 15 111/68 97 04/29/17 08:06 04/29/17 08:06 04/29/17 08:06 04/29/17 08:06 04/29/17 08:06 General appearance: Present: cooperative, A&O X 3, morbidly obese, pleasant, no acute distress, answers questions appropriately - Head Head exam: Present: atraumatic, normocephalic - Eye Eye exam: Present: EOMI, periorbital swelling, conjuntiva pink, sclera anicteric Pupils: Present: normal accommodation - ENT ENT exam: Present: mucous membranes moist - Neck Neck exam general surgery: Present: supple, trachea midline - Respiratory Respiratory exam: Present: decreased breath sounds, CTAB. Absent: accessory muscle use, rales, rhonchi, wheezes - Cardiovascular Cardiovascular exam: Present: tachycardia. Absent: diastolic murmur, gallop, rubs, systolic murmur - GI/Abdominal GI/Abdominal exam: Present: distended, firm, normal bowel sounds, no peritoneal signs. Absent: tenderness - exam: Present: scrotal swelling External exam: Present: swelling - Extremities Exam Extremities exam: Present: normal capillary refill, pedal edema, radial pulses palpable and symmetrical. Absent: calf tenderness Additional comments: chronic venous stasis changes Ulcer on left heel, dressing in place Excoriation on left great toe posteriorly, no bleeding or erythema noted - Neurological Exam Neurological exam: Present: oriented X3, no focal deficits. Absent: facial droop, speech deficit - Psychiatric Psychiatric exam: Present: normal affect, normal mood - Skin Skin exam: Present: dry Additional comments: chronic venous stasis changes b/l LE excoriations that are scabbed over on arms <ChilangoDutch Kasia - Last Filed: 04/29/17 13:50> Date of Encounter: 04/29/17 Procedures/tests Complete & Pending: Procedures Performed prior 72 hours Category Date Time Status ECG 12 lead ECG [ECG] Routine Y 04/27/17 11:44 Completed Date of admission: 04/22/17 22:57 Primary care physician: Damian Seymour, Consults: 04/25/17 06:00 Consult to Gastroenterology [CONS] Routine Consulting Provider: [facility] [place] Reason for Consult: Dr. Woodard pt, dropping hgb, on xarelto with black stool Call Completed: Yes 04/25/17 14:19 Consult to Podiatry [CONS] Routine Consulting Provider: [facility] Reason for Consult: Patient treated by Podiatry on last admission - was D/C - was to have follow-up appointment today (Reese) Time Notified: 02:20 Call Completed: Yes 04/27/17 16:23 Consult to Palliative Care [CONS] Routine Comment: Consulting Provider: [facility] Reason for Consult: end stage CHF Call Completed: No Hospital course: Mr. Diaz is a 71 year old male - Time Spent with Patient Total time spent providing and/or coordinating discharge services: - Constitutional Vitals: Temp Pulse Resp BP Pulse Ox 97.4 F L 89 18 95/59 94 04/29/17 11:39 04/29/17 11:39 04/29/17 11:39 04/29/17 11:39 04/29/17 11:39 - Attending Attestation Time spent on this discharge: 40 minutes Acute on chronic hypoxic respiratory failure secondary to acute systolic and diastolic CHF exacerbation with bilateral pleural effusions and acute pulmonary edema continue Lasix , strict I's and O's, daily weight The patient was explained the risks of not being compliant with his fluid restriction at home due to his recurrence of CHF exacerbations. Hospice considered at some point for family. Patient refused ECF, risks explained. I examined this patient and my medical decision-making was reviewed with the Resident Physician. I agree with the documented findings, disposition and treatment plan as described except to the extent set forth below.
--- NOTE | 2017-04-29 08:45 | Physician Discharge Referral ---
<BonillamonicaMonalisa gordonn - Last Filed: 04/29/17 08:43> [facility] Referral Info Transfer To: ECF Provider in Charge after Transfer: PCP Institutional Level of Care: Skilled - Diagnosis (1) Acute and chronic respiratory failure Priority: Primary Status: Acute (2) Congestive heart failure Priority: Primary Status: Acute (3) Iron deficiency anemia Priority: Primary Status: Chronic (4) Diabetes mellitus with neuropathy Priority: Primary Status: Chronic (5) Scrotal edema Priority: Primary Status: Acute (6) Essential hypertension Priority: Primary Status: Chronic (7) COPD (chronic obstructive pulmonary disease) Priority: Primary Status: Chronic (8) Afib Priority: Primary Status: Chronic Prognosis: Fair Aware of Diagnosis: Patient, Family Aware of Prognosis: Patient, Family - Transfer Medications Home Medications: Amiodarone [Cordarone] 200 mg PO DAILY 04/28/15 [History] Aspirin 81 mg PO DAILY 04/28/15 [History] Atorvastatin [Lipitor] 40 mg PO HS 04/28/15 [History] Citalopram [CeleXA] 40 mg PO DAILY 04/28/15 [History] Docosahexanoic Acid/Epa [Fish Oil Concentrate Softgel] 1 each PO DAILY 04/28/15 [History] Ferrous Sulfate 325 mg PO BIDWM 04/28/15 [History] Garlic 1,000 mg PO DAILY 04/28/15 [History] GlipiZIDE XL (24 HR) [Glucotrol XL] 20 mg PO QAM 04/28/15 [History] Insulin DETEMIR [Levemir] 70 units SQ BID 04/28/15 [History] SitaGLIPtin [Januvia] 100 mg PO DAILY 04/28/15 [History] Albuterol Sulfate [Proair Hfa] 2 puff IH Q4H PRN 01/25/17 [History] Budesonide/Formoterol 160/4.5 [Symbicort 160/4.5] 2 puff IH BIDR 01/25/17 [ History] Metoprolol Succinate 200 mg PO DAILY 01/25/17 [History] Oxygen 2 l NS CONT 02/03/17 [History] Furosemide [Lasix] 60 mg PO BID #180 tab 02/08/17 [Rx] Dextrose Gel [Gluctose] 30 gm PO ONCE PRN #0 gel..gram. 02/23/17 [Rx] Glucagon, Human Recombinant [Glucagen] 1 mg IM ONCE PRN #0 vial 02/23/17 [Rx] Nicotine Patch [Nicoderm] 21 mg TD DAILY #30 patch.td24 02/23/17 [Rx] Nitroglycerin 0.4 mg SL Q5MIN PRN #0 tab.subl 02/23/17 [Rx] Potassium Chloride 8 meq PO DAILY tablet.er 02/23/17 [Rx] Tiotropium [Spiriva] 18 mcg IH 0800 #30 inh 02/23/17 [Rx] metFORMIN [Glucophage] 1,000 mg PO BIDWM tablet 02/23/17 [Rx] Diltiazem HCl [Diltiazem 24Hr Cd] 180 mg PO BID 04/06/17 [History] Insulin LISPRO [HumaLOG] 4 - 16 units SQ TIDAC 04/06/17 [History] Meclizine HCl [Verticalm] 25 - 50 mg PO Q4H PRN 04/06/17 [History] Rivaroxaban [Xarelto] 20 mg PO DAILY 04/06/17 [History] Collagenase Oint [Santyl] 1 appl TP DAILY 04/14/17 [Rx] Allergies/Adverse Reactions: 3 Allergy/AdvReac Type Severity Reaction Status Date / Time bupropion [From Wellbutrin] Allergy Difficulty Verified 04/28/15 08:53 Breathing codeine Allergy Difficulty Verified 04/28/15 08:53 Breathing Opioids-Meperidine and Allergy Difficulty Verified 04/28/15 08:53 Related Breathing [Opioids-Meperidine & Related] - Respiratory Orders Oxygen / L per min (2L) Smoking Cessation: Smoking cessation has been advised. For more information, call the [place] Tobacco Quit Line at 9-747-ARTU-NOW. - Advance Directives Code Status: Full Code - Mobility Orders Ambulate - Rehabiliation Orders Rehab Potential: Fair Rehab Orders: Evaluation for Physical Therapy, Evaluation for Occupational Therapy - Diet Orders No Added Salt (LAMINE) (2Liter fluid restriction), Cardiac CERTIFICATION: I certify that the transfer of the above named patient to an Extended Care Facility is necessary for the continuing treatment of the diagnosis listed. The above information is true and accurate reflection of patient's current condition. Confidential - Redisclosure prohibited without a patient's written consent. <Dutch Kee H - Last Filed: 04/29/17 13:51> - Respiratory Orders Smoking Cessation: Smoking cessation has been advised. For more information, call the [place] Tobacco Quit Line at 2-406-FMFC-NOW. CERTIFICATION: I certify that the transfer of the above named patient to an Extended Care Facility is necessary for the continuing treatment of the diagnosis listed. The above information is true and accurate reflection of patient's current condition. Confidential - Redisclosure prohibited without a patient's written consent.
--- NOTE | 2017-04-29 08:47 | Physician Discharge Referral ---
<Monalisa Jiang - Last Filed: 04/29/17 08:45> Home Health/Hosp Referral Info Transfer to: Home Health Attending Provider: Dr. eKnt Provider in Charge Post Discharge: PCP - Diagnosis (1) Acute and chronic respiratory failure Priority: Primary Status: Acute (2) Congestive heart failure Priority: Primary Status: Acute (3) Iron deficiency anemia Priority: Primary Status: Chronic (4) Diabetes mellitus with neuropathy Priority: Primary Status: Chronic (5) Scrotal edema Priority: Primary Status: Acute (6) Essential hypertension Priority: Primary Status: Chronic (7) COPD (chronic obstructive pulmonary disease) Priority: Primary Status: Chronic (8) Afib Priority: Primary Status: Chronic - Respiratory Orders Oxygen / L per min (2L) Smoking Cessation: Smoking cessation has been advised. For more information, call the [place] Tobacco Quit Line at 3-555-LXMQ-NOW. - Diet/Nutrition Diet/Nutrition Orders: No Added Salt (LAMINE) (2 Liter fluid retriction), Cardiac - Activity Activity Orders: Ambulate, Walker - Services Needed Following services are medically necessary services: Nursing, Home Health Aide, Physical Therapy, Occupational Therapy - Transfer Medications Home Medications: Amiodarone [Cordarone] 200 mg PO DAILY 04/28/15 [History] Aspirin 81 mg PO DAILY 04/28/15 [History] Atorvastatin [Lipitor] 40 mg PO HS 04/28/15 [History] Citalopram [CeleXA] 40 mg PO DAILY 04/28/15 [History] Docosahexanoic Acid/Epa [Fish Oil Concentrate Softgel] 1 each PO DAILY 04/28/15 [History] Ferrous Sulfate 325 mg PO BIDWM 04/28/15 [History] Garlic 1,000 mg PO DAILY 04/28/15 [History] GlipiZIDE XL (24 HR) [Glucotrol XL] 20 mg PO QAM 04/28/15 [History] Insulin DETEMIR [Levemir] 70 units SQ BID 04/28/15 [History] SitaGLIPtin [Januvia] 100 mg PO DAILY 04/28/15 [History] Albuterol Sulfate [Proair Hfa] 2 puff IH Q4H PRN 01/25/17 [History] Budesonide/Formoterol 160/4.5 [Symbicort 160/4.5] 2 puff IH BIDR 01/25/17 [ History] Metoprolol Succinate 200 mg PO DAILY 01/25/17 [History] Oxygen 2 l NS CONT 02/03/17 [History] Furosemide [Lasix] 60 mg PO BID #180 tab 02/08/17 [Rx] Dextrose Gel [Gluctose] 30 gm PO ONCE PRN #0 gel..gram. 02/23/17 [Rx] Glucagon, Human Recombinant [Glucagen] 1 mg IM ONCE PRN #0 vial 02/23/17 [Rx] Nicotine Patch [Nicoderm] 21 mg TD DAILY #30 patch.td24 02/23/17 [Rx] Nitroglycerin 0.4 mg SL Q5MIN PRN #0 tab.subl 02/23/17 [Rx] Potassium Chloride 8 meq PO DAILY tablet.er 02/23/17 [Rx] Tiotropium [Spiriva] 18 mcg IH 0800 #30 inh 02/23/17 [Rx] metFORMIN [Glucophage] 1,000 mg PO BIDWM tablet 02/23/17 [Rx] Diltiazem HCl [Diltiazem 24Hr Cd] 180 mg PO BID 04/06/17 [History] Insulin LISPRO [HumaLOG] 4 - 16 units SQ TIDAC 04/06/17 [History] Meclizine HCl [Verticalm] 25 - 50 mg PO Q4H PRN 04/06/17 [History] Rivaroxaban [Xarelto] 20 mg PO DAILY 04/06/17 [History] Collagenase Oint [Santyl] 1 appl TP DAILY 04/14/17 [Rx] Allergies/Adverse Reactions: 3 Allergy/AdvReac Type Severity Reaction Status Date / Time bupropion [From Wellbutrin] Allergy Difficulty Verified 04/28/15 08:53 Breathing codeine Allergy Difficulty Verified 04/28/15 08:53 Breathing Opioids-Meperidine and Allergy Difficulty Verified 04/28/15 08:53 Related Breathing [Opioids-Meperidine & Related] Certification: Further, I certify that my clinical findings support that this patient is homebound (i.e. absences from home require considerable and taxing effort and are for medical reasons or yazdanism services or infrequently or short duration when for other reasons) because: Homebound Reason: Leaving home requires considerable and taxing effort due to condition, Severity of cardiac or pulmonary status limits activity tolerance Attestation: My signature below is to certify that this patient is under my care and that I, or nurse practitioner, or a physician's assistant professor of economics working with me, has a face-to -face encounter with this patient. <Dutch Kee - Last Filed: 04/29/17 13:51> - Respiratory Orders Smoking Cessation: Smoking cessation has been advised. For more information, call the [place] Tobacco Quit Line at 7-959-MVBF-NOW. Certification: Further, I certify that my clinical findings support that this patient is homebound (i.e. absences from home require considerable and taxing effort and are for medical reasons or yazdanism services or infrequently or short duration when for other reasons) because: Attestation: My signature below is to certify that this patient is under my care and that I, or nurse practitioner, or a physician's assistant professor of economics working with me, has a face-to -face encounter with this patient.
[2017-04-29] MEDS: Budesonide/Formoterol 160/4.5 MDI IH SCH ×2 (10:51→19:43)
--- NOTE | 2017-04-29 16:10 | Cardiology Progress Note ---
<Jerome Lund - Last Filed: 04/29/17 16:30> Date of Encounter: 04/29/17 Time of Encounter: 10:00 Assessment and Plan (1) Acute congestive heart failure Current Visit: Yes Status: Acute Most likely acute on chronic systolic and diastolic heart failure. His LVEF in January was 45%, previously 55-60% - was not seen by Cardiology at that time. Repeat LVEF during a recent visit was also 45-50%. Unfortunately, he's been periodically anemic and doesn't appear to be a good candidate for [facility]. Patient weight has decreased from 153 to 148 kg since yesterday. Recommend continuing BB and statin. Continue aspirin if tolerated. Continue Lasix. Added Zaroxolyn 5 mg PO daily for 3 days. Colonoscopy report showed removal of three non-bleeding polyps. Awaiting pathology reports. Qualifiers: Congestive heart failure type: unspecified congestive heart failure type Qualified Code(s): I50.9 - Heart failure, unspecified (2) Afib Current Visit: No Status: Chronic History of Afib, previously on amiodarone which was stopped during last visit presumably because of lack of regular follow up and stopping anticoagulation. Presented then with AFL/Atach and medications were maximized. However amiodarone was included on discharge summary and he is presently on this. Current Hgb has stayed at 7.3. Recommend continuing amiodarone at this time. Xarelto resumed today. Continue cardizem, toprol. Qualifiers: Atrial fibrillation type: paroxysmal Qualified Code(s): I48.0 - Paroxysmal atrial fibrillation Discussion w patient/family: The assessment and plan as outlined above was discussed with the patient and/or family members who expressed understanding and agreement. All questions were answered. Thank you for involving us in the care of your patient. Please call with any questions. Subjective Principal diagnosis: CHF, AFIB Interval history: When spoken to today, patient says that when he is at rest, his shortness of breath has stayed the same since yesterday but has improved overall since admission. He denies any chest pain, numbness/tingling, headaches, vision blurriness, syncope, nausea, or vomiting. Objective Vital Signs, Last 4 Hours Temp Pulse Resp BP Pulse Ox 04/29/17 15:48 18 96 04/29/17 15:29 98.1 F 90 18 105/67 96 General: Conversant, No Apparent Distress Neck: No JVD, Normal carotid pulses Cardiac: Normal S1 and S2, No Murmur, Other (Borderline tachy. ) Lungs: Normal Breath Sounds, No Wheeze, Rales, Rhonchi Neuro: Alert and responsive Musculoskeletal: No Chest Wall Tenderness Extremities: No Clubbing, No Cyanosis, Other (+1 pitting edema bilaterally of lower extremeties. ) Other: Scrotal edema has not changed since yesterday. Results 04/29/17 04:21 04/29/17 04:21 Lab Results 04/29/17 04/29/17 04:21 04:21 WBC 8.6 Hgb 7.3 L Hct 25.2 L Plt Count 403 H Sodium 139 Potassium 3.6 Chloride 105 Carbon Dioxide 26 BUN 18 Creatinine 0.87 Glucose 152 H Calcium 8.1 L Consult Discharge Plan - Plan Additional Instructions: At discharge Cardiology would like you to continue: xarelto, aspirin, lipitor, amidoarone, cardizem and toprol. Follow and cardiac diet and a 2 liter fluid restriction. Take your medications as prescribed. Follow up with your primary care provider within 5 days. Referrals: Damian Seymour MD [Primary Care Provider] - 05/18/17 4:00 pm <Zack Garcia - Last Filed: 04/29/17 18:45> Date of Encounter: 04/29/17 Time of Encounter: 03:25 Assessment and Plan (1) Congestive heart failure Current Visit: Yes Status: Acute Qualifiers: Congestive heart failure type: systolic Congestive heart failure chronicity : acute on chronic Qualified Code(s): I50.23 - Acute on chronic systolic ( congestive) heart failure Discussion w patient/family: The assessment and plan as outlined above was discussed with the patient and/or family members who expressed understanding and agreement. All questions were answered. Thank you for involving us in the care of your patient. Please call with any questions. Objective Vital Signs, Last 4 Hours Temp Pulse Resp BP Pulse Ox 04/29/17 15:48 18 96 04/29/17 15:29 98.1 F 90 18 105/67 96 Abdomen: Other (Abdomen mildly distended, tender to palpation epigastrium, no rebound, ) Results 04/29/17 04:21 04/29/17 04:21 Lab Results 04/29/17 04/29/17 04:21 04:21 WBC 8.6 Hgb 7.3 L Hct 25.2 L Plt Count 403 H Sodium 139 Potassium 3.6 Chloride 105 Carbon Dioxide 26 BUN 18 Creatinine 0.87 Glucose 152 H Calcium 8.1 L - Attending Attestation PT seen and examined independently, chart reviewed, colonoscopy note reviewed, essentially agree with above, my evaluation as below: Asked to evaluate pt for chest pain CC chest and abdominal pain. Pt reports a resident at [facility], reports developed mid epigasric chest pain and pressure, after meal, associated with nausea and diaphoresis, lasted approx 30 mins, not relieved with SL ntg, improved in ER on O2 pnc. He reports chest discomfort different from previous anginal symptoms, but with recent PCI was concerned he may be blocking down again. HE has not yet resumed normal activities of daily living, He reports has been chest pain free since admission. He continues to have upper abdominal pain, 3/10 at most severe, resolves with rest/positional change. Pt also reports is compliant with medications at home. He has not felt pain severe enough to take SL ntg. IMP/Plan 1. Chest pain, atypical, much more consistent with GI etiology, continue to eval for non-cardiac causes of chest pain. 2. Elevated troponin, trending down from recent [place], not a new elevation 3. Stable class 1 angina post emergent PCI with MERVAT X 4 RCA 4. 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
[2017-04-29] MEDS ORDERED: *HR* Rivaroxaban 10 MG TABLET PO ONE (17:00)
[2017-04-29] MEDS ORDERED: *HR* Rivaroxaban 10 MG TABLET PO SCH (17:00)
[2017-04-29] MEDS: metOLazone 5 MG TABLET PO SCH (17:09)
[2017-04-29] MEDS: Furosemide 40 MG TABLET PO SCH (17:09)
[2017-04-30] MEDS: Ipratropium/Albuterol Neb 3 ML IH SCH ×3 (03:55→11:15)
[2017-04-30 04:04] LABS: Basophils % 0.4 %; Eosinophils # 0.3 K/mcL (0.0-0.6); Hemoglobin 7.3 g/dL (12.9-16.9); Immature Granulocytes % 0.3 % (0-4); Lymphocytes # 0.6 K/mcL (0.6-4.6); Lymphocytes % 6.1 %; Mean Corpuscular HGB Conc 29.2 g/dL (31.6-35.5); Mean Corpuscular Volume 92.6 fL (83.0-100.0); Mean Platelet Volume 8.7 fL (9.4-12.4); Monocytes # 1.1 K/mcL (0.0-1.3); Monocytes % 12.1 %; Platelet Count 360 K/mcL (140-400); Red Cell Distribution Width 19.7 % (11.5-14.5); Segmented Neutrophils % 78.1 %
[2017-04-30 04:18] LABS: BUN/Creatinine Ratio 17 (6-26); Blood Urea Nitrogen 18 mg/dL (8-26); Calcium 8.2 mg/dL (8.6-10.8); Carbon Dioxide 28 mEq/L (19-29); Chloride 104 mEq/L (98-109); Glucose 199 mg/dL (70-99); Osmolality,Calculated 293 (280-300); Potassium 3.4 mEq/L (3.5-4.5); Sodium 138 mEq/L (136-145); eGFR For African Americans > 60 (> 60); eGFR For Non-African Americans > 60 (> 60)
[2017-04-30] MEDS: Budesonide/Formoterol 160/4.5 MDI IH SCH (07:47)
[2017-04-30] MEDS: Furosemide 40 MG TABLET PO SCH (08:24)
[2017-04-30] MEDS: Insulin LISPRO 300 UNITS/3 ML VIAL SQ SCH ×2 (08:45→12:21)
[2017-04-30] MEDS: Potassium Chloride Elixir 20 MEQ/15 ML UDC PO SCH (10:27)
[2017-04-30] MEDS: *HR* Amiodarone 200 MG TABLET PO SCH (10:27)
[2017-04-30] MEDS: Nicotine 21 MG PATCH.TD24 TD SCH (10:27)
[2017-04-30] MEDS: Metoprolol XL (24 HR) Succ 50 MG TAB.ER.24H PO SCH (10:27)
[2017-04-30] MEDS: Diltiazem CD (24hr) 180 MG CAPSULE PO SCH (10:27)
[2017-04-30] MEDS: metOLazone 5 MG TABLET PO SCH (10:27)
[2017-04-30] MEDS: Aspirin 81 MG TAB.CHEW PO SCH (10:27)
--- NOTE | 2017-04-30 11:21 | Internal Med Progress Note ---
<Duane Lion - Last Filed: 04/30/17 11:19> Date of Encounter: 04/30/17 Time of Encounter: 11:19 - Assessment and plan (1) Acute and chronic respiratory failure Current Visit: Yes Status: Acute Assessment and plan: Currently on 4L BiPap Patient continues to be SOB intermittently -Continue Supplemental oxygen, wean as tolerated -BiPAP at night -Continue duonebs, symbicort, prn albuterol -patient to be discharged home on home health today now that family has obtained his bipap for at home Qualifiers: Respiratory failure complication: hypoxia Qualified Code(s): J96.21 - Acute and chronic respiratory failure with hypoxia (2) Congestive heart failure Current Visit: Yes Status: Acute Assessment and plan: Acute on Chronic systolic and diastolic HF, Cardiology consulted. ECHO 04/23/17: LVEF 50-55%; LV diastolic dysfunction; atypical septal motion, mild concentric LVH;elevated RA pressures Patient continues to have edema of the UE/LE/Scrotum LHC recommended, but pt has been too anemic, GI consulted and perfomred EGD and Colonoscopy yesterday which showed polyps in the colon. Dr. Woodard removed 5 polyps and ere sent to pathology. Still volume overloaded, Scr remains stable, will continue diuresis with IV lasix -Continue BB, statin, ASA, PO lasix -Continue Fluid restriction -Continue diuresis -Strict I/Os. -Daily weights Qualifiers: Congestive heart failure type: systolic Congestive heart failure chronicity : acute on chronic Qualified Code(s): I50.23 - Acute on chronic systolic ( congestive) heart failure (3) COPD (chronic obstructive pulmonary disease) Current Visit: No Status: Chronic Assessment and plan: Chronic -Continue home meds -Continue oxygen -BiPAP at night Qualifiers: COPD type: unspecified COPD Qualified Code(s): J44.9 - Chronic obstructive pulmonary disease, unspecified (4) Afib Current Visit: No Status: Chronic Assessment and plan: Hx chronic afib, presented on amiodarone and anticoagulation (xarelto) -Continue amiodarone -Continue xarelto Qualifiers: Atrial fibrillation type: paroxysmal Qualified Code(s): I48.0 - Paroxysmal atrial fibrillation (5) Essential hypertension Current Visit: No Status: Chronic Assessment and plan: -Continue home meds. (6) Diabetes mellitus with neuropathy Current Visit: No Status: Chronic Assessment and plan: BS stable 140's-200 -Continue SSI -accuchecks ACHS. Qualifiers: Diabetes mellitus type: type 2 Diabetes mellitus long-term insulin use: unspecified termite helper insulin use status Qualified Code(s): E11.40 - Type 2 diabetes mellitus with diabetic neuropathy, unspecified (7) Iron deficiency anemia Current Visit: Yes Status: Chronic Assessment and plan: Endoscopy in January. No source of bleeding. Hgb 7.3, decreased from 8.1 at admission but stable Stated hx of melena, abd pain during admission Per records had EGD in January suggesting Pryor's esophagus, numerous polyps No current obvious source of blood loss GI consulted Had colonoscopy yesterday which showed polyps but no bleeding. Polyps were removed Patient may require a transfusion to be able to have [facility] -Continue to monitor H/H, transfuse as needed Qualifiers: Iron deficiency anemia type: unspecified iron deficiency Qualified Code(s) : D50.9 - Iron deficiency anemia, unspecified (8) Scrotal edema Current Visit: Yes Status: Acute Assessment and plan: continue to Elevate scrotum. - Subjective Interval history: Patient sleeping comfortably. Patient awakes to voice. Patient endorses no complaints at this time. Informed patient that he would be able to go today as his family will have his bipap machine at home by 3pm. Discharge order was placed yesterday. Patient will be discharged home with home health today. - Constitutional Vitals: Temp Pulse Resp BP Pulse Ox 97.7 F 107 18 124/72 100 04/30/17 08:20 04/30/17 08:20 04/30/17 08:20 04/30/17 08:20 04/30/17 08:20 General appearance: Present: cooperative, A&O X 3, morbidly obese, pleasant, no acute distress, answers questions appropriately - Eye Eye exam: Present: periorbital swelling, conjuntiva pink, sclera anicteric - ENT ENT exam: Present: mucous membranes moist - Neck Neck exam general surgery: Present: supple, trachea midline - Respiratory Respiratory exam: Present: decreased breath sounds, CTAB. Absent: rales, rhonchi, wheezes - Cardiovascular Cardiovascular exam: Present: tachycardia. Absent: diastolic murmur, gallop, rubs, systolic murmur - GI/Abdominal GI/Abdominal exam: Present: distended, firm, normal bowel sounds, no peritoneal signs. Absent: tenderness - exam: Present: scrotal swelling - Extremities Exam Extremities exam: Present: pedal edema. Absent: calf tenderness - Neurological Exam Neurological exam: Present: alert, oriented X3, no focal deficits. Absent: facial droop, speech deficit - Psychiatric Psychiatric exam: Present: normal affect, normal mood - Skin Additional comments: Chronic venous stasis changes BLE Ulcer L heel dressing in place: C/D/I Internal Medicine: Result - Labs CBC & Chem 7: 04/30/17 03:54 04/30/17 03:54 Labs: Short CBC 04/30/17 Range/Units 03:54 WBC 9.0 (4.3-11.1) K/mcL Hgb 7.3 L (12.9-16.9) g/dL Hct 25.0 L (37.5-50.1) % Plt Count 360 (140-400) K/mcL Neutrophils # 7.0 (1.6-8.9) K/mcL BMP 04/30/17 03:54 Sodium 138 Potassium 3.4 L Chloride 104 Carbon Dioxide 28 BUN 18 Creatinine 1.06 Glucose 199 H Calcium 8.2 L - ABG Interpretation ABG results: PT/INR, D-dimer PT 28.3 Seconds (9.4-12.1) H 04/25/17 12:13 Consult Discharge Plan - Plan Instructions: Heart Failure (DC), Diabetes Mellitus Type 2 in Adults (DC), Fluid Restriction (DC) Additional Instructions: At discharge Cardiology would like you to continue: xarelto, aspirin, lipitor, amidoarone, cardizem and toprol. Follow and cardiac diet and a 2 liter fluid restriction. Take your medications as prescribed. Follow up with your primary care provider within 5 days. Referrals: Damian Seymour MD [Primary Care Provider] - 05/18/17 4:00 pm <Dutch Kee H - Last Filed: 04/30/17 13:44> Date of Encounter: 04/30/17 - Constitutional Vitals: Temp Pulse Resp BP Pulse Ox 97.4 F L 87 18 127/77 98 04/30/17 11:41 04/30/17 12:28 04/30/17 12:28 04/30/17 12:28 04/30/17 12:28 Internal Medicine: Result - Labs CBC & Chem 7: 04/30/17 03:54 04/30/17 03:54 Labs: Short CBC 04/30/17 Range/Units 03:54 WBC 9.0 (4.3-11.1) K/mcL Hgb 7.3 L (12.9-16.9) g/dL Hct 25.0 L (37.5-50.1) % Plt Count 360 (140-400) K/mcL Neutrophils # 7.0 (1.6-8.9) K/mcL BMP 04/30/17 03:54 Sodium 138 Potassium 3.4 L Chloride 104 Carbon Dioxide 28 BUN 18 Creatinine 1.06 Glucose 199 H Calcium 8.2 L - ABG Interpretation ABG results: PT/INR, D-dimer PT 28.3 Seconds (9.4-12.1) H 04/25/17 12:13 - Attending Attestation Acute on chronic hypoxic respiratory failure secondary to acute systolic and diastolic CHF exacerbation with bilateral pleural effusions and acute pulmonary edema discharged on 04/30/17 , BIPAP not available yesterday at home. I examined this patient and my medical decision-making was reviewed with the Resident Physician. I agree with the documented findings, disposition and treatment plan as described except to the extent set forth below.
[2017-04-30 12:34] VITALS: BP 127/77
== END 2017-04-30 15:18 | disposition home health service (06) | DRG 291 ==
LOC: EMEROO 18:55 → 3BNU 18:55 → SUATTDRO 22:57 → 3BNU 23:19
PROVIDERS: ADMIT Internal Medicine; ATTEND Internal Medicine

== ENCOUNTER 2017-04-30 19:50 | Inpatient (IN) ==
[2017-04-30] MEDS ORDERED: methylPREDNISolone 125 MG/2 ML VIAL IVP ONE (20:29)
[2017-04-30] MEDS ORDERED: Ipratropium/Albuterol Neb 3 ML IH ONE (20:29)
--- NOTE | 2017-04-30 20:43 | Emergency Department Note ---
Disposition Clinical Impression: COPD exacerbation Acute and chronic respiratory failure Qualifiers: Respiratory failure complication: hypoxia Qualified Code(s): J96.21 - Acute and chronic respiratory failure with hypoxia Acute exacerbation of CHF (congestive heart failure) Qualifiers: Congestive heart failure type: systolic Qualified Code(s): I50.23 - Acute on chronic systolic (congestive) heart failure Disposition: Admitted As Inpatient Condition: Good Referrals: Damian Seymour MD [Primary Care Provider] - Forms: ED Satisfaction Letter Time of Disposition: 22:26 SOB HPI - General Chief Complaint: ED Shortness of Breath/Dyspnea Stated Complaint: SOB/WESLEY Time Seen by Provider: 04/30/17 19:53 Source: patient Limitations: no limitations Nursing Notes Reviewed: Yes Vital Signs Reviewed: Yes - History of Present Illness The patient is a 71-year-old male with history of CHF and COPD who was recently discharged from the hospital this morning and was admitted for acute respiratory distress/failure with COPD exacerbation and CHF exacerbation. Patient was on home O2 on 4 L but was having shortness of breath, EMS was called patient was placed on 15 L via nonrebreather and brought to the hospital. Patient O2 sats were brought up to 100% during transport. Patient is tachycardic, but not to keep neck and cannot lay flat without feeling severely short of breath. Patient denies chest pain. Patient has scrotal swelling that was identified prior to discharge from the hospital this morning. When asked why he was discharged, patient states he opted to be discharged home but thinks that that was not the best choice now. - Related Data Home Medications Medication Instructions Recorded Confirmed Amiodarone [Cordarone] 200 mg PO DAILY 04/28/15 04/22/17 Aspirin 81 mg PO DAILY 04/28/15 04/22/17 Atorvastatin [Lipitor] 40 mg PO HS 04/28/15 04/22/17 Citalopram [CeleXA] 40 mg PO DAILY 04/28/15 04/22/17 Docosahexanoic Acid/Epa [Fish Oil 1 each PO DAILY 04/28/15 04/22/17 Concentrate Softgel] Ferrous Sulfate 325 mg PO BIDWM 04/28/15 04/22/17 Garlic 1,000 mg PO DAILY 04/28/15 04/22/17 GlipiZIDE XL (24 HR) [Glucotrol XL] 20 mg PO QAM 04/28/15 04/22/17 Insulin DETEMIR [Levemir] 70 units SQ BID 04/28/15 04/22/17 SitaGLIPtin [Januvia] 100 mg PO DAILY 04/28/15 04/22/17 Albuterol Sulfate [Proair Hfa] 2 puff IH Q4H PRN 01/25/17 04/22/17 Budesonide/Formoterol 160/4.5 2 puff IH BIDR 01/25/17 04/22/17 [Symbicort 160/4.5] Metoprolol Succinate 200 mg PO DAILY 01/25/17 04/22/17 Oxygen 2 l NS CONT 02/03/17 04/22/17 Diltiazem HCl [Diltiazem 24Hr Cd] 180 mg PO BID 04/06/17 04/22/17 Insulin LISPRO [HumaLOG] 4 - 16 units SQ TIDAC 04/06/17 04/22/17 Meclizine HCl [Verticalm] 25 - 50 mg PO Q4H PRN 04/06/17 04/22/17 Rivaroxaban [Xarelto] 20 mg PO DAILY 04/06/17 04/22/17 Previous Rx's Medication Instructions Recorded Furosemide [Lasix] 60 mg PO BID #180 tab 02/08/17 Dextrose Gel [Gluctose] 30 gm PO ONCE PRN #0 gel..gram. 02/23/17 Glucagon, Human Recombinant 1 mg IM ONCE PRN #0 vial 02/23/17 [Glucagen] Nicotine Patch [Nicoderm] 21 mg TD DAILY #30 patch.td24 02/23/17 Nitroglycerin 0.4 mg SL Q5MIN PRN #0 tab.subl 02/23/17 Potassium Chloride 8 meq PO DAILY tablet.er 02/23/17 Tiotropium [Spiriva] 18 mcg IH 0800 #30 inh 02/23/17 metFORMIN [Glucophage] 1,000 mg PO BIDWM tablet 02/23/17 Collagenase Oint [Santyl] 1 appl TP DAILY 04/14/17 Allergies Allergy/AdvReac Type Severity Reaction Status Date / Time bupropion [From Wellbutrin] Allergy Difficulty Verified 04/28/15 08:53 Breathing codeine Allergy Difficulty Verified 04/28/15 08:53 Breathing Opioids-Meperidine and Allergy Difficulty Verified 04/28/15 08:53 Related Breathing [Opioids-Meperidine & Related] All systems ED: reviewed and negative except as stated. Review of Systems: As Per HPI Constitutional: Reports: weakness. Denies: fever, chills Eyes: Denies: vision change Cardiovascular: Denies: chest pain Respiratory: Reports: dyspnea, wheezes. Denies: cough Gastrointestinal: Denies: abdominal pain, nausea, vomiting, diarrhea Genitourinary: Denies: urgency Musculoskeletal: Denies: back pain, neck pain Integumentary: Denies: rash Neurological: Denies: headache Psychiatric: Reports: anxiety Endocrine: Reports: fatigue Hematological/Lymphatic: Denies: easy bleeding Allergic/Immunologic: Denies: facial swelling Past Medical History - Past Medical History Attestation: Yes The following information was validated with the patient. Source: patient Medical history: Reports: arthritis, atrial fibrillation, CHF, COPD, diabetes, hyperlipidemia, hypertension Surgical history: Reports: orthopedic, other, pacemaker/AICD Psychiatric history: Reports: no psych history - Social History Smoking Status: Former smoker Smokeless Tobacco Status: No Alcohol use: Reports: none Drug use: Reports: marijuana Physical Exam - General Limitations: no limitations General appearance: alert - Head Head exam: atraumatic, normocephalic, normal inspection - Eye Eye exam: Present: normal appearance, PERRL, EOMI - ENT ENT exam: normal exam, normal oropharynx, mucous membranes moist - Neck Neck exam: Present: normal inspection, full ROM, trachea midline - Chest Chest inspection: Present: normal inspection, symmetric chest wall rise - Respiratory Respiratory exam: Present: respiratory distress, wheezes - Cardiovascular Cardiovascular exam: Present: tachycardia - Abdominal Exam Abdominal exam: Present: soft, Non-Tender, distention, normal bowel sounds. Absent: tenderness, guarding, rebound, rigidity, trauma - Male exam: Present: scrotal swelling - Extremities Exam Extremities exam: Present: pedal edema - Expanded Lower Extremity Exam Lower leg exam: Present: swelling, other (Venous insufficiency bilaterally) - Back Exam Back exam: Present: normal inspection, full ROM. Absent: tenderness, CVA tenderness (R), CVA tenderness (L) - Neurological Exam Neurological exam: Present: alert, oriented X3, CN II-XII intact - Psychiatric Psychiatric exam: Present: normal affect Course - Reevaluation(s) Reevaluation #1: Patient seen and examined, workup ordered and plan for readmission Time: 20:10 Reevaluation #2: BiPAP being started on patient right now. Patient did well whirl reassessment in 15 minutes or so Time: 21:07 Reevaluation #3: Patient doing well. Patient is admitted to the hospital. Patient's currently has a pulse of 93 beats a minute, O2 sat 90%. Patient states she is comfortable on BiPAP Time: 22:25 - Consultations Consultation #1: Dr. Becerril the hospitalist has accepted patient for admission. Time: 22:24 Vital Signs Temperature 99.0 F 04/30/17 19:57 Pulse Rate 106 04/30/17 19:57 Respiratory Rate 20 04/30/17 19:57 Blood Pressure 122/83 04/30/17 19:57 O2 Sat by Pulse Oximetry 100 04/30/17 19:57 Temperature 99.0 F 04/30/17 19:57 Pulse Rate 105 04/30/17 21:36 Respiratory Rate 14 04/30/17 21:36 Blood Pressure 118/86 04/30/17 21:00 O2 Sat by Pulse Oximetry 95 04/30/17 21:36 Oxygen Delivery Oxygen Delivery Bipap Shortness of Breath/Dyspnea - MDM Narrative Medical decision making narrative: Patient presents with respiratory distress which appears to be recurrent problem from previous admission for acute on chronic respiratory distress/ failure, CHF exacerbation, COPD exacerbation. Recommend readmission. The patient currently comfortable on BiPAP, ABG shows respiratory alkalosis, patient's PaCO2 44, PaO2 133, bicarbonate 31.3. Patient's BNP 658 with a previous of 490. Patient has fluid retention and scrotum and right lateral lower extremities. Wheezing and lungs bilaterally. DuoNeb 3 was ordered as well. Patient's chest x-ray shows improved from residual CHF - Lab Data Lab results reviewed: Yes I reviewed the patient's lab results. Lab results narrative: Short CBC 04/30/17 Range/Units 20:53 WBC 10.3 (4.3-11.1) K/mcL Hgb 7.7 L (12.9-16.9) g/dL Hct 26.4 L (37.5-50.1) % Plt Count 446 H (140-400) K/mcL Neutrophils # 8.4 (1.6-8.9) K/mcL BMP 04/30/17 Range/Units 20:53 Sodium 137 (136-145) mEq/L Potassium 3.6 (3.5-4.5) mEq/L Chloride 99 (98-109) mEq/L Carbon Dioxide 29 (19-29) mEq/L BUN 23 (8-26) mg/dL Creatinine 1.17 (0.72-1.25) mg/dL Glucose 205 H (70-99) mg/dL Calcium 8.4 L (8.6-10.8) mg/dL Cardiac Enzymes 04/30/17 Range/Units 20:53 Troponin I 0.01 (0-0.03) ng/mL Result diagrams: 04/30/17 20:53 04/30/17 20:53 Lab Results 04/30/17 04/30/17 04/30/17 Range/Units 20:53 20:53 20:53 WBC 10.3 (4.3-11.1) K/mcL RBC 2.85 L (4.19-5.50) M/mcL Hgb 7.7 L (12.9-16.9) g/dL Hct 26.4 L (37.5-50.1) % MCV 92.6 (83.0-100.0) fL MCH 27.0 L (28.0-33.3) pg MCHC 29.2 L (31.6-35.5) g/dL RDW 19.1 H (11.5-14.5) % Plt Count 446 H (140-400) K/mcL MPV 8.9 L (9.4-12.4) fL Immature Gran % 0.3 (0-4) % Seg Neutrophils % 81.7 % Lymphocytes % 5.2 % Monocytes % 10.0 % Eosinophils % 2.4 % Basophils % 0.4 % Neutrophils # 8.4 (1.6-8.9) K/mcL Lymphocytes # 0.5 L (0.6-4.6) K/mcL Monocytes # 1.0 (0.0-1.3) K/mcL Eosinophils # 0.3 (0.0-0.6) K/mcL Basophils # 0.0 (0.0-0.2) K/mcL Immature Plt Fraction 1.5 (1.1-6.1) % ABG pH (7.32-7.45) pH Units ABG pCO2 (35-45) mmHg ABG pO2 (85-104) mmHg ABG HCO3 (21-27) mEQ/L ABG Total CO2 (20-26) mEq/L ABG O2 Saturation (95-98) % ABG Base Excess (-2.0 to 3.0) mEq/L Blood Gas Modality Inspired O2 % Sodium 137 (136-145) mEq/L Potassium 3.6 (3.5-4.5) mEq/L Chloride 99 (98-109) mEq/L Carbon Dioxide 29 (19-29) mEq/L BUN 23 (8-26) mg/dL Creatinine 1.17 (0.72-1.25) mg/dL Est GFR ( Amer) > 60 (> 60) Est GFR (Non-Af Amer) > 60 (> 60) BUN/Creatinine Ratio 20 (6-26) Glucose 205 H (70-99) mg/dL Calculated Osmolality 294 (280-300) Lactic Acid 1.2 (0.5-2.2) mmol/L Calcium 8.4 L (8.6-10.8) mg/dL Troponin I (0-0.03) ng/mL B-Natriuretic Peptide (0-100) pg/mL 04/30/17 04/30/17 04/30/17 Range/Units 20:53 20:53 20:57 WBC (4.3-11.1) K/mcL RBC (4.19-5.50) M/mcL Hgb (12.9-16.9) g/dL Hct (37.5-50.1) % MCV (83.0-100.0) fL MCH (28.0-33.3) pg MCHC (31.6-35.5) g/dL RDW (11.5-14.5) % Plt Count (140-400) K/mcL MPV (9.4-12.4) fL Immature Gran % (0-4) % Seg Neutrophils % % Lymphocytes % % Monocytes % % Eosinophils % % Basophils % % Neutrophils # (1.6-8.9) K/mcL Lymphocytes # (0.6-4.6) K/mcL Monocytes # (0.0-1.3) K/mcL Eosinophils # (0.0-0.6) K/mcL Basophils # (0.0-0.2) K/mcL Immature Plt Fraction (1.1-6.1) % ABG pH 7.46 H (7.32-7.45) pH Units ABG pCO2 44 (35-45) mmHg ABG pO2 133 H (85-104) mmHg ABG HCO3 31.3 H (21-27) mEQ/L ABG Total CO2 32.7 H (20-26) mEq/L ABG O2 Saturation 99 H (95-98) % ABG Base Excess 6.8 H (-2.0 to 3.0) mEq/L Blood Gas Modality MASK Inspired O2 100 % Sodium (136-145) mEq/L Potassium (3.5-4.5) mEq/L Chloride (98-109) mEq/L Carbon Dioxide (19-29) mEq/L BUN (8-26) mg/dL Creatinine (0.72-1.25) mg/dL Est GFR ( Amer) (> 60) Est GFR (Non-Af Amer) (> 60) BUN/Creatinine Ratio (6-26) Glucose (70-99) mg/dL Calculated Osmolality (280-300) Lactic Acid (0.5-2.2) mmol/L Calcium (8.6-10.8) mg/dL Troponin I 0.01 (0-0.03) ng/mL B-Natriuretic Peptide 658 H (0-100) pg/mL - Radiology Data Radiology results reviewed: Yes I reviewed the patient's radiology results. Chest X-Ray 04/30/17 20:29 IMPRESSION: 1. Improved with residual congestive heart failure. D/ / Denny Quintanilla MD / Denny Quintanilla MD Interpreting Provider: Denny Quintanilla MD - EKG Data EKG attestation: Yes I reviewed and interpreted this EKG. EKG results narrative: EKG taken 04/30/2017 at 1956 hrs. shows a flutter at a rate of 107 beats. For a flutter RVR. Previous EKG taken 04/27/2017 shows sinus tach with first- degree AV block at a rate of 103 beats a minute right bundle branch block seen on EKG today and on the .
[2017-04-30 21:03] LABS: Basophils % 0.4 %; Eosinophils # 0.3 K/mcL (0.0-0.6); Eosinophils % 2.4 %; Hematocrit 26.4 % (37.5-50.1); Immature Granulocytes % 0.3 % (0-4); Immature Platelets 1.5 % (1.1-6.1); Lymphocytes # 0.5 K/mcL (0.6-4.6); Lymphocytes % 5.2 %; Mean Corpuscular HGB Conc 29.2 g/dL (31.6-35.5); Mean Corpuscular Volume 92.6 fL (83.0-100.0); Mean Platelet Volume 8.9 fL (9.4-12.4); Neutrophils # 8.4 K/mcL (1.6-8.9); Platelet Count 446 K/mcL (140-400); Red Blood Count 2.85 M/mcL (4.19-5.50); Red Cell Distribution Width 19.1 % (11.5-14.5); Segmented Neutrophils % 81.7 %
[2017-04-30 21:07] LABS: ABG Base Excess 6.8 mEq/L (-2.0 to 3.0); ABG HCO3 31.3 mEQ/L (21-27); ABG Oxygen Saturation 99 % (95-98); ABG PCO2 44 mmHg (35-45); ABG PH 7.46 pH Units (7.32-7.45); ABG PO2 133 mmHg (85-104); ABG TCO2 32.7 mEq/L (20-26); Blood Gas FiO2 100 %
--- NOTE | 2017-04-30 21:08 | Emergency Department Note ---
START Narrative - START START: I examined this patient and my medical decision-making was reviewed with the Resident Physician. I agree with the documented findings, disposition and treatment plan as described except to the extent set forth below. Patient was independently seen and evaluated by myself. Patient was seen with the emergency medicine resident Russell Fernandes. Please see copy of her notes for details of this ED encounter management and disposition. Briefly: 71-year-old male via EMS for shortness of breath. Patient was just discharged from [facility] this morning for respiratory failure CHF and COPD flare. Patient was speech dyspnea hypoxic and tachypneic and tachycardic. Currently placed on BiPAP. Patient will have repeat screening labs and x-rays and admission will be pursued. Disposition pending. We have provided 45 minutes of critical care services for this patient.
[2017-04-30 21:16] LABS: BUN/Creatinine Ratio 20 (6-26); Blood Urea Nitrogen 23 mg/dL (8-26); Calcium 8.4 mg/dL (8.6-10.8); Carbon Dioxide 29 mEq/L (19-29); Chloride 99 mEq/L (98-109); Glucose 205 mg/dL (70-99); Osmolality,Calculated 294 (280-300); Potassium 3.6 mEq/L (3.5-4.5); Sodium 137 mEq/L (136-145); eGFR For African Americans > 60 (> 60); eGFR For Non-African Americans > 60 (> 60)
[2017-04-30 21:17] LABS: Hemoglobin 7.7 g/dL (12.9-16.9)
--- NOTE | 2017-05-01 01:56 | Internal Med History&Physical ---
Date of Encounter: 05/01/17 Time of Encounter: 01:55 Assessment and Plan (1) COPD (chronic obstructive pulmonary disease) Current visit: No Status: Chronic We will treat this with inhaled bronchodilators. No evidence of acute exacerbation. No wheezing. Qualifiers: COPD type: unspecified COPD Qualified Code(s): J44.9 - Chronic obstructive pulmonary disease, unspecified (2) Essential hypertension Current visit: No Status: Chronic Continue oral antihypertensive medication per home regimen. (3) Acute exacerbation of CHF (congestive heart failure) Current visit: No Status: Acute IV Lasix 40 mg twice a day. Strict I's and O's. Daily weights. 1500 mL fluid restriction. We will monitor on telemetry. Trend troponin to rule out ACS. Qualifiers: Congestive heart failure type: combined Qualified Code(s): I50.43 - Acute on chronic combined systolic (congestive) and diastolic (congestive) heart failure (4) DVT prophylaxis Current visit: No Status: Acute He is fully anticoagulated with Xarelto (5) Morbid obesity with BMI of 45.0-49.9, adult Current visit: No Status: Chronic Outpatient weight loss regimen and lifestyle modification recommended. (6) Diabetes mellitus with neuropathy Current visit: No Status: Chronic Insulin sliding scale. Qualifiers: Diabetes mellitus type: type 2 Diabetes mellitus care home insulin use: unspecified care home insulin use status Qualified Code(s): E11.40 - Type 2 diabetes mellitus with diabetic neuropathy, unspecified (7) Scrotal edema Current visit: No Status: Acute Likely secondary to CHF. We will recommend elevation of the scrotum and systemic treatment with Lasix. (8) Acute and chronic respiratory failure Current visit: Yes Status: Acute Oxygen by nasal cannula. Check ambulatory oxygen saturation. Qualifiers: Respiratory failure complication: hypoxia Qualified Code(s): J96.21 - Acute and chronic respiratory failure with hypoxia Internal Medicine - H&P: HPI Chief complaint: Swelling of the testicles Admitted From: Emergency Dept Plans for Post Hospital Care: Home History of present illness: Mr. Diaz is a 71 year old male with multiple medical comorbidities including COPD, systolic and diastolic CHF, hypertension and hyperlipidemia, chronic hypoxic respiratory failure, morbid obesity and diabetes who presented to the hospital for testicular swelling. He reports that his testicles are always swollen, more so for the last 3 days. He was discharged home yesterday from the hospital after being treated for 10 days for CHF exacerbation. He went home and presented back to the hospital saying that his testicles were swollen. Per ED report he called an ambulance and was found to be in respiratory distress, however he now says that his breathing is at baseline. Review of systems: Denies chest pain, reports chronic edema and chronic testicular swelling. Denies nausea vomiting diarrhea bleeding bruising, skin rashes depression and anxiety. Past Med Surg Social Fam HX - Past Medical History Medical history: arthritis, atrial fibrillation, CHF, COPD, diabetes, hyperlipidemia, hypertension Psychiatric history: no psych history - Past Surgical History Surgical History: orthopedic, other, pacemaker/AICD - Social History Smoking Status: Former smoker Smokeless Tobacco Status: No Alcohol use: none Drug use: marijuana - Family History Father Hx Family Cardiac Disorders: Yes (Quadruple Bypass) Mother Family Member Ethnicity: Non- Living Status: Internal Medicine - H&P: Meds Amiodarone [Cordarone] 200 mg PO DAILY 04/28/15 [History] Aspirin 81 mg PO DAILY 04/28/15 [History] Atorvastatin [Lipitor] 40 mg PO HS 04/28/15 [History] Citalopram [CeleXA] 40 mg PO DAILY 04/28/15 [History] Docosahexanoic Acid/Epa [Fish Oil Concentrate Softgel] 1 each PO DAILY 04/28/15 [History] Ferrous Sulfate 325 mg PO BIDWM 04/28/15 [History] Garlic 1,000 mg PO DAILY 04/28/15 [History] GlipiZIDE XL (24 HR) [Glucotrol XL] 20 mg PO QAM 04/28/15 [History] Insulin DETEMIR [Levemir] 70 units SQ BID 04/28/15 [History] SitaGLIPtin [Januvia] 100 mg PO DAILY 04/28/15 [History] Albuterol Sulfate [Proair Hfa] 2 puff IH Q4H PRN 01/25/17 [History] Budesonide/Formoterol 160/4.5 [Symbicort 160/4.5] 2 puff IH BIDR 01/25/17 [ History] Metoprolol Succinate 200 mg PO DAILY 01/25/17 [History] Oxygen 2 l NS CONT 02/03/17 [History] Furosemide [Lasix] 60 mg PO BID #180 tab 02/08/17 [Rx] Dextrose Gel [Gluctose] 30 gm PO ONCE PRN #0 gel..gram. 02/23/17 [Rx] Glucagon, Human Recombinant [Glucagen] 1 mg IM ONCE PRN #0 vial 02/23/17 [Rx] Nicotine Patch [Nicoderm] 21 mg TD DAILY #30 patch.td24 02/23/17 [Rx] Nitroglycerin 0.4 mg SL Q5MIN PRN #0 tab.subl 02/23/17 [Rx] Potassium Chloride 8 meq PO DAILY tablet.er 02/23/17 [Rx] Tiotropium [Spiriva] 18 mcg IH 0800 #30 inh 02/23/17 [Rx] metFORMIN [Glucophage] 1,000 mg PO BIDWM tablet 02/23/17 [Rx] Diltiazem HCl [Diltiazem 24Hr Cd] 180 mg PO BID 04/06/17 [History] Insulin LISPRO [HumaLOG] 4 - 16 units SQ TIDAC 04/06/17 [History] Meclizine HCl [Verticalm] 25 - 50 mg PO Q4H PRN 04/06/17 [History] Rivaroxaban [Xarelto] 20 mg PO DAILY 04/06/17 [History] Collagenase Oint [Santyl] 1 appl TP DAILY 04/14/17 [Rx] 3 Allergy/AdvReac Type Severity Reaction Status Date / Time bupropion [From Wellbutrin] Allergy Difficulty Verified 04/28/15 08:53 Breathing codeine Allergy Difficulty Verified 04/28/15 08:53 Breathing Opioids-Meperidine and Allergy Difficulty Verified 04/28/15 08:53 Related Breathing [Opioids-Meperidine & Related] All Systems PM: A 10-system review of systems was performed and is negative for pertinent findings except as documented above in the HPI. - Constitutional Vitals: Temp Pulse Resp BP Pulse Ox 98.0 F 91 16 127/84 96 05/01/17 00:42 05/01/17 00:42 05/01/17 00:42 05/01/17 00:42 05/01/17 01:26 General appearance: Present: A&O X 3 - Eye Eye exam: Present: PERRL, conjuntiva pink, sclera anicteric Pupils: Present: PERRL - Neck Neck exam general surgery: Present: supple, trachea midline. Absent: lymphadenopathy - Respiratory Respiratory exam: Present: CTAB. Absent: accessory muscle use, rales, rhonchi, wheezes - Cardiovascular Cardiovascular exam: Present: irregular rhythm, +S1, +S2. Absent: diastolic murmur, gallop, rubs, systolic murmur - GI/Abdominal GI/Abdominal exam: Present: normal bowel sounds, soft, no peritoneal signs. Absent: distended, tenderness - Additional comments: Large to massive scrotal subcutaneous tissue edema. No lesions. - Extremities Exam Extremities exam: Present: pedal edema, warm, radial pulses palpable and symmetrical. Absent: calf tenderness, cyanotic - Neurological Exam Neurological exam: Present: CN II-XII intact, oriented X3, no focal deficits. Absent: pronater drift, facial droop, speech deficit - Skin Skin exam: Present: dry, intact Internal Med - H&P Results - Labs CBC & Chem 7: 04/30/17 20:53 04/30/17 20:53 - EKG Data EKG comments: 05/01/17 01:59 Telemetry strip reveals mostly ventricularly paced complexes with some [place] complexes.
[2017-05-01] MEDS ORDERED: Ondansetron 4 MG/2 ML VIAL IVP PRN (02:27)
[2017-05-01] MEDS ORDERED: Naloxone 0.4 MG/ML INJ IVP PRN (02:27)
[2017-05-01] MEDS ORDERED: Acetaminophen 325 MG TABLET PO PRN (02:27)
[2017-05-01] MEDS ORDERED: Dextrose Gel 15 GM PO PRN ×2 (02:44)
[2017-05-01] MEDS ORDERED: *HR* Dextrose 50 % in Water (Syg) 50 ML SYRINGE IVP PRN (02:44)
[2017-05-01] MEDS ORDERED: D5% in Water 1,000 ML IVC PRN (02:44)
[2017-05-01 03:18] LABS: Basophils % 0.2 %; Eosinophils % 0.2 %; Hemoglobin 7.9 g/dL (12.9-16.9); Immature Granulocytes % 0.3 % (0-4); Lymphocytes # 0.4 K/mcL (0.6-4.6); Mean Corpuscular HGB Conc 29.3 g/dL (31.6-35.5); Mean Corpuscular Hemoglobin 27.2 pg (28.0-33.3); Mean Corpuscular Volume 93.1 fL (83.0-100.0); Mean Platelet Volume 9.2 fL (9.4-12.4); Monocytes # 0.1 K/mcL (0.0-1.3); Monocytes % 1.1 %; Neutrophils # 8.4 K/mcL (1.6-8.9); Platelet Count 359 K/mcL (140-400); Segmented Neutrophils % 94.2 %
[2017-05-01 03:33] LABS: BUN/Creatinine Ratio 19 (6-26); Blood Urea Nitrogen 21 mg/dL (8-26); Calcium 8.1 mg/dL (8.6-10.8); Carbon Dioxide 28 mEq/L (19-29); Chloride 99 mEq/L (98-109); Glucose 273 mg/dL (70-99); Magnesium 1.9 mg/dL (1.6-2.6); Osmolality,Calculated 297 (280-300); Potassium 3.5 mEq/L (3.5-4.5); Sodium 137 mEq/L (136-145); eGFR For African Americans > 60 (> 60); eGFR For Non-African Americans > 60 (> 60)
[2017-05-01 03:37] LABS: Hemoglobin A1C 5.5 %
[2017-05-01] MEDS: Insulin LISPRO 300 UNITS/3 ML VIAL SQ SCH ×7 (08:14→23:30)
[2017-05-01] MEDS: Diltiazem SR (12hr) 90 MG CAPSULE PO SCH ×2 (08:15→19:54)
[2017-05-01] MEDS: Metoprolol XL (24 HR) Succ 50 MG TAB.ER.24H PO SCH (08:15)
[2017-05-01] MEDS: *HR* Rivaroxaban 10 MG TABLET PO SCH (08:16)
[2017-05-01] MEDS: Aspirin 81 MG TAB.CHEW PO SCH (08:16)
[2017-05-01] MEDS: Insulin DETEMIR 100 UNIT/ML X5UNITS SQ SCH ×2 (08:30→23:31)
[2017-05-01] MEDS ORDERED: INSULIN DETEMIR 30 UNIT SQ SCH (09:00)
[2017-05-01] MEDS ORDERED: Furosemide 40 MG/4 ML VIAL IVP SCH ×2 (09:00→11:15)
[2017-05-01] MEDS ORDERED: Magnesium Sulfate 2 GM in D5% in Water 100 ML IVPB ONE (11:06)
[2017-05-01] MEDS ORDERED: Albuterol 2.5 MG/3 ML NEBULIZER IH PRN (11:07)
[2017-05-01] MEDS ORDERED: Furosemide 40 MG/4 ML VIAL IVP ONE (11:15)
[2017-05-01] MEDS ORDERED: metOLazone 5 MG TABLET PO SCH (11:15)
--- NOTE | 2017-05-01 11:19 | Internal Med Progress Note ---
Date of Encounter: 05/01/17 Time of Encounter: 11:11 - Assessment and plan (1) Acute and chronic respiratory failure Current Visit: No Status: Acute Qualifiers: Respiratory failure complication: hypoxia Qualified Code(s): J96.21 - Acute and chronic respiratory failure with hypoxia (2) Congestive heart failure Current Visit: No Status: Acute Qualifiers: Congestive heart failure type: systolic Congestive heart failure chronicity : acute on chronic Qualified Code(s): I50.23 - Acute on chronic systolic ( congestive) heart failure (3) Scrotal edema Current Visit: No Status: Acute (4) Acute exacerbation of chronic obstructive airways disease Current Visit: No Status: Acute (5) Afib Current Visit: No Status: Chronic Qualifiers: Atrial fibrillation type: paroxysmal Qualified Code(s): I48.0 - Paroxysmal atrial fibrillation (6) Sleep apnea with use of continuous positive airway pressure (CPAP) Current Visit: No Status: Chronic (7) Type 2 diabetes mellitus Current Visit: No Status: Chronic Qualifiers: Diabetes mellitus complication status: with unspecified complications Diabetes mellitus senior living insulin use: with senior living use Qualified Code(s) : E11.8 - Type 2 diabetes mellitus with unspecified complications; 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 (8) Aortic stenosis Current Visit: No Status: Acute Qualifiers: Cardiac valve disease etiology: nonrheumatic Qualified Code(s): I35.0 - Nonrheumatic aortic (valve) stenosis (9) Pacemaker Current Visit: No Status: Acute (10) Cirrhosis Current Visit: No Status: Acute Qualifiers: Hepatic cirrhosis type: unspecified hepatic cirrhosis Ascites presence: with ascites Qualified Code(s): K74.60 - Unspecified cirrhosis of liver (11) Essential hypertension Current Visit: No Status: Chronic (12) Morbid obesity with BMI of 40.0-44.9, adult Current Visit: No Status: Chronic (13) DVT prophylaxis Current Visit: No Status: Acute - Subjective Interval history: Mr. Jaime Diaz is a 71-year-old male who was discharged yesterday from hospitalist service by Dr. Yoli Kelly. He returned with the shortness of breath and is portals were swelling. Patient is morbidly obese, has history of chronic atrial fibrillation and diastolic congestive heart failure with known EF around 50%. Problem list: #1 acute combined systolic and diastolic congestive heart failure with ejection fraction estimated in the range of 45-50% on echocardiogram done this month. He is noted to have elevated RV and RA pressures. He will be aggressively diuresed and Lasix will be increased to 80 twice a day with Zaroxolyn supplementing potassium and rechecking potassium creatinine and magnesium on daily basis. Strict I's and O's. Patient will remain on telemetry. Chest x- ray showed pulmonary edema #5 scrotal edema probably a combination of dependent edema as well as increase intra-abdominal vascular pressure secondary to CHF and obesity. Plan As outlined above #2 acute exacerbation of COPD. Patient will be treated with the nebulizers on regular basis #3 chronic atrial fibrillation, rate controlled with Cardizem and patient is on long-term AC with Xarelto. #4 diabetes, Accu-Chek 4 times a day with sliding scale with daily monitoring - Constitutional Vitals: Temp Pulse Resp BP Pulse Ox 98.9 F 74 19 121/71 97 05/01/17 07:29 05/01/17 07:29 05/01/17 07:29 05/01/17 07:29 05/01/17 08:45 General appearance: Present: A&O X 3 - Head Head exam: Present: atraumatic, normocephalic - Eye Eye exam: Present: PERRL, conjuntiva pink, sclera anicteric Pupils: Present: PERRL - Neck Neck exam general surgery: Present: supple, trachea midline. Absent: lymphadenopathy - Respiratory Respiratory exam: Present: CTAB. Absent: accessory muscle use, rales, rhonchi, wheezes - Cardiovascular Cardiovascular exam: Present: RRR, +S1, +S2. Absent: diastolic murmur, gallop, rubs, systolic murmur - GI/Abdominal GI/Abdominal exam: Present: normal bowel sounds, soft, no peritoneal signs. Absent: distended, tenderness - Extremities Exam Extremities exam: Present: warm, radial pulses palpable and symmetrical. Absent : calf tenderness, cyanotic, pedal edema - Neurological Exam Neurological exam: Present: CN II-XII intact, oriented X3, no focal deficits. Absent: pronater drift, facial droop, speech deficit - Skin Skin exam: Present: dry, intact Internal Medicine: Result - Labs CBC & Chem 7: 05/01/17 02:54 05/01/17 02:54 Labs: Short CBC 05/01/17 Range/Units 02:54 WBC 9.0 (4.3-11.1) K/mcL Hgb 7.9 L (12.9-16.9) g/dL Hct 27.0 L (37.5-50.1) % Plt Count 359 (140-400) K/mcL Neutrophils # 8.4 (1.6-8.9) K/mcL BMP 05/01/17 02:54 Sodium 137 Potassium 3.5 Chloride 99 Carbon Dioxide 28 BUN 21 Creatinine 1.12 Glucose 273 H Calcium 8.1 L Cardiac Enzymes 05/01/17 05/01/17 Range/Units 02:54 08:49 Troponin I 0.00 0.01 (0-0.03) ng/mL - ABG Interpretation ABG results: ABG ABG pH 7.46 pH Units (7.32-7.45) H 04/30/17 20:57 ABG pCO2 44 mmHg (35-45) 04/30/17 20:57 ABG pO2 133 mmHg (85-104) H 04/30/17 20:57 ABG O2 Saturation 99 % (95-98) H 04/30/17 20:57 Consult Discharge Plan - Plan Referrals: Damian Seymour MD [Primary Care Provider] -
[2017-05-01] MEDS: metOLazone 5 MG TABLET PO SCH (12:26)
[2017-05-01] MEDS: Ipratropium/Albuterol Neb 3 ML IH SCH ×2 (15:37→22:26)
[2017-05-01] MEDS: Furosemide 40 MG/4 ML VIAL IVP SCH (18:02)
--- NOTE | 2017-05-01 18:10 | Electrocardiograph Report ---
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
[2017-05-01] MEDS ORDERED: 0.9 % Sodium Chloride 500 ML ONE (18:33)
--- NOTE | 2017-05-01 18:53 | Electrocardiograph Report ---
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
[2017-05-01] MEDS ORDERED: 0.9 % Sodium Chloride 250 ML ONE (23:20)
[2017-05-02] MEDS: Ipratropium/Albuterol Neb 3 ML IH SCH ×4 (05:09→22:45)
[2017-05-02 05:18] LABS: Basophils % 0.1 %; Eosinophils % 0.1 %; Hematocrit 29.5 % (37.5-50.1); Hemoglobin 8.9 g/dL (12.9-16.9); Immature Granulocytes % 0.5 % (0-4); Lymphocytes # 0.5 K/mcL (0.6-4.6); Lymphocytes % 4.3 %; Mean Corpuscular HGB Conc 30.2 g/dL (31.6-35.5); Mean Corpuscular Volume 89.4 fL (83.0-100.0); Mean Platelet Volume 9.3 fL (9.4-12.4); Monocytes # 1.1 K/mcL (0.0-1.3); Monocytes % 8.6 %; Neutrophils # 10.5 K/mcL (1.6-8.9); Platelet Count 415 K/mcL (140-400); Red Cell Distribution Width 18.5 % (11.5-14.5); Segmented Neutrophils % 86.4 %
[2017-05-02 05:35] LABS: Alanine Aminotransferase 20 Units/L (0-55); Albumin 2.4 g/dL (3.5-5.0); Albumin/Globulin Ratio 0.6 (1.1-2.2); Alkaline Phosphatase 116 Units/L (38-126); Aspartate Amino Transferase 21 Units/L (5-34); BUN/Creatinine Ratio 29 (6-26); Bilirubin,Total 0.5 mg/dL (0.2-1.2); Calcium 8.6 mg/dL (8.6-10.8); Carbon Dioxide 31 mEq/L (19-29); Chloride 95 mEq/L (98-109); Globulin 3.9 g/dL (2.4-3.5); Glucose 220 mg/dL (70-99); Magnesium 2.3 mg/dL (1.6-2.6); Osmolality,Calculated 297 (280-300); Phosphorous 3.8 mg/dL (2.3-4.7); Total Protein 6.3 g/dL (6.0-8.3); eGFR For African Americans > 60 (> 60); eGFR For Non-African Americans 59 (> 60)
[2017-05-02 05:38] LABS: Blood Urea Nitrogen 35 mg/dL (8-26); Sodium 136 mEq/L (136-145)
[2017-05-02] MEDS: Insulin LISPRO 300 UNITS/3 ML VIAL SQ SCH ×7 (11:15→20:49)
[2017-05-02] MEDS: Metoprolol XL (24 HR) Succ 50 MG TAB.ER.24H PO SCH (11:27)
[2017-05-02] MEDS: *HR* Rivaroxaban 10 MG TABLET PO SCH (11:28)
[2017-05-02] MEDS: Aspirin 81 MG TAB.CHEW PO SCH (11:28)
[2017-05-02] MEDS: Insulin DETEMIR 100 UNIT/ML X5UNITS SQ SCH ×2 (11:28→20:42)
[2017-05-02] MEDS: Diltiazem SR (12hr) 90 MG CAPSULE PO SCH ×2 (11:28→20:42)
[2017-05-02] MEDS: Furosemide 40 MG/4 ML VIAL IVP SCH ×2 (11:28→16:51)
[2017-05-02] MEDS: metOLazone 5 MG TABLET PO SCH (11:29)
--- NOTE | 2017-05-02 14:25 | Internal Med Progress Note ---
Date of Encounter: 05/02/17 Time of Encounter: 14:23 - Assessment and plan (1) Acute and chronic respiratory failure Current Visit: No Status: Acute Qualifiers: Respiratory failure complication: hypoxia Qualified Code(s): J96.21 - Acute and chronic respiratory failure with hypoxia (2) Congestive heart failure Current Visit: No Status: Acute Qualifiers: Congestive heart failure type: systolic Congestive heart failure chronicity : acute on chronic Qualified Code(s): I50.23 - Acute on chronic systolic ( congestive) heart failure (3) Scrotal edema Current Visit: No Status: Acute (4) Acute exacerbation of chronic obstructive airways disease Current Visit: No Status: Acute (5) Afib Current Visit: No Status: Chronic Qualifiers: Atrial fibrillation type: paroxysmal Qualified Code(s): I48.0 - Paroxysmal atrial fibrillation (6) Sleep apnea with use of continuous positive airway pressure (CPAP) Current Visit: No Status: Chronic (7) Type 2 diabetes mellitus Current Visit: No Status: Chronic Qualifiers: Diabetes mellitus complication status: with unspecified complications Diabetes mellitus residential insulin use: with residential use Qualified Code(s) : E11.8 - Type 2 diabetes mellitus with unspecified complications; 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 (8) Aortic stenosis Current Visit: No Status: Acute Qualifiers: Cardiac valve disease etiology: nonrheumatic Qualified Code(s): I35.0 - Nonrheumatic aortic (valve) stenosis (9) Pacemaker Current Visit: No Status: Acute (10) Cirrhosis Current Visit: No Status: Acute Qualifiers: Hepatic cirrhosis type: unspecified hepatic cirrhosis Ascites presence: with ascites Qualified Code(s): K74.60 - Unspecified cirrhosis of liver (11) Essential hypertension Current Visit: No Status: Chronic (12) Morbid obesity with BMI of 40.0-44.9, adult Current Visit: No Status: Chronic (13) DVT prophylaxis Current Visit: No Status: Acute - Subjective Interval history: Mr. Jaime Diaz is a 71-year-old male who was discharged yesterday from hospitalist service by Dr. Yoli Kelly. He returned with the shortness of breath and is portals were swelling. Patient is morbidly obese, has history of chronic atrial fibrillation and diastolic congestive heart failure with known EF around 50%. Problem list: #1 acute combined systolic and diastolic congestive heart failure with ejection fraction estimated in the range of 45-50% on echocardiogram done this month. He is noted to have elevated RV and RA pressures. He will be aggressively diuresed and Lasix will be increased to 80 twice a day with Zaroxolyn supplementing potassium and rechecking potassium creatinine and magnesium on daily basis. Strict I's and O's. Patient will remain on telemetry. Chest x- ray showed pulmonary edema. No good I's and O's S patient is incontinent. However I suspect he has diuresed very well. Discussed with nursing staff. #5 scrotal edema probably a combination of dependent edema as well as increase intra-abdominal vascular pressure secondary to CHF and obesity. Plan As outlined above #2 acute exacerbation of COPD. Patient will be treated with the nebulizers on regular basis #3 chronic atrial fibrillation, rate controlled with Cardizem and patient is on long-term AC with Xarelto. #4 diabetes, Accu-Chek 4 times a day with sliding scale with daily monitoring #5 hypokalemia supplement and recheck in the morning Overall improving continue diuresis to reduce his steroids consult urology for scrotal edema which is still very prominent - Constitutional Vitals: Temp Pulse Resp BP Pulse Ox 97.6 F 70 18 135/59 100 05/02/17 07:47 05/02/17 07:47 05/02/17 10:45 05/02/17 07:47 05/02/17 10:45 General appearance: Present: A&O X 3 - Head Head exam: Present: atraumatic, normocephalic - Eye Eye exam: Present: PERRL, conjuntiva pink, sclera anicteric Pupils: Present: PERRL - Neck Neck exam general surgery: Present: supple, trachea midline. Absent: lymphadenopathy - Respiratory Respiratory exam: Present: CTAB. Absent: accessory muscle use, rales, rhonchi, wheezes - Cardiovascular Cardiovascular exam: Present: RRR, +S1, +S2. Absent: diastolic murmur, gallop, rubs, systolic murmur - GI/Abdominal GI/Abdominal exam: Present: normal bowel sounds, soft, no peritoneal signs. Absent: distended, tenderness - exam: Present: scrotal swelling Additional comments: Scrotal swelling no redness discharge or lesion - Extremities Exam Extremities exam: Present: warm, radial pulses palpable and symmetrical. Absent : calf tenderness, cyanotic, pedal edema - Neurological Exam Neurological exam: Present: CN II-XII intact, oriented X3, no focal deficits. Absent: pronater drift, facial droop, speech deficit - Skin Skin exam: Present: dry, intact Internal Medicine: Result - Labs CBC & Chem 7: 05/02/17 04:45 05/02/17 04:45 Labs: Short CBC 05/02/17 Range/Units 04:45 WBC 12.2 H (4.3-11.1) K/mcL Hgb 8.9 L (12.9-16.9) g/dL Hct 29.5 L (37.5-50.1) % Plt Count 415 H (140-400) K/mcL Neutrophils # 10.5 H (1.6-8.9) K/mcL BMP 05/02/17 04:45 Sodium 136 Potassium 3.0 L Chloride 95 L Carbon Dioxide 31 H BUN 35 H D Creatinine 1.20 Glucose 220 H Calcium 8.6 Liver Function 05/02/17 Range/Units 04:45 Total Bilirubin 0.5 (0.2-1.2) mg/dL AST 21 (5-34) Units/L ALT 20 (0-55) Units/L Alkaline Phosphatase 116 (38-126) Units/L Albumin 2.4 L (3.5-5.0) g/dL - ABG Interpretation ABG results: ABG ABG pH 7.46 pH Units (7.32-7.45) H 04/30/17 20:57 ABG pCO2 44 mmHg (35-45) 04/30/17 20:57 ABG pO2 133 mmHg (85-104) H 04/30/17 20:57 ABG O2 Saturation 99 % (95-98) H 04/30/17 20:57 Consult Discharge Plan - Plan Referrals: Damian Seymour MD [Primary Care Provider] -
[2017-05-03] MEDS: Ipratropium/Albuterol Neb 3 ML IH SCH ×4 (04:41→22:54)
[2017-05-03 07:23] LABS: Basophils # 0.1 K/mcL (0.0-0.2); Basophils % 0.6 %; Eosinophils # 0.3 K/mcL (0.0-0.6); Eosinophils % 2.9 %; Hematocrit 29.6 % (37.5-50.1); Hemoglobin 8.8 g/dL (12.9-16.9); Immature Granulocytes % 0.3 % (0-4); Lymphocytes # 0.6 K/mcL (0.6-4.6); Lymphocytes % 5.3 %; Mean Corpuscular HGB Conc 29.7 g/dL (31.6-35.5); Mean Corpuscular Hemoglobin 26.4 pg (28.0-33.3); Mean Corpuscular Volume 88.9 fL (83.0-100.0); Mean Platelet Volume 8.9 fL (9.4-12.4); Monocytes # 1.2 K/mcL (0.0-1.3); Monocytes % 10.6 %; Neutrophils # 9.2 K/mcL (1.6-8.9); Nucleated Red Blood Cells 0.2 /100 WBC (0); Platelet Count 418 K/mcL (140-400); Red Blood Count 3.33 M/mcL (4.19-5.50); Red Cell Distribution Width 18.3 % (11.5-14.5); Segmented Neutrophils % 80.3 %
[2017-05-03 07:36] LABS: Alanine Aminotransferase 24 Units/L (0-55); Albumin 2.5 g/dL (3.5-5.0); Albumin/Globulin Ratio 0.7 (1.1-2.2); Alkaline Phosphatase 111 Units/L (38-126); Aspartate Amino Transferase 22 Units/L (5-34); BUN/Creatinine Ratio 38 (6-26); Bilirubin,Total 0.5 mg/dL (0.2-1.2); Blood Urea Nitrogen 44 mg/dL (8-26); Calcium 8.7 mg/dL (8.6-10.8); Carbon Dioxide 36 mEq/L (19-29); Chloride 94 mEq/L (98-109); Globulin 3.7 g/dL (2.4-3.5); Glucose 90 mg/dL (70-99); Magnesium 2.1 mg/dL (1.6-2.6); Osmolality,Calculated 303 (280-300); Sodium 141 mEq/L (136-145); Total Protein 6.2 g/dL (6.0-8.3); eGFR For African Americans > 60 (> 60); eGFR For Non-African Americans > 60 (> 60)
[2017-05-03] MEDS ORDERED: Potassium Chloride 40 MEQ, Lidocaine 1% 2 ML in D5% in Water 500 ML IVPB STA (09:06)
[2017-05-03] MEDS: Insulin LISPRO 300 UNITS/3 ML VIAL SQ SCH ×7 (09:52→20:42)
[2017-05-03] MEDS: Insulin DETEMIR 100 UNIT/ML X5UNITS SQ SCH ×2 (10:04→20:36)
[2017-05-03] MEDS: *HR* Rivaroxaban 10 MG TABLET PO SCH (10:05)
[2017-05-03] MEDS: Diltiazem SR (12hr) 90 MG CAPSULE PO SCH ×2 (10:05→20:37)
[2017-05-03] MEDS: Aspirin 81 MG TAB.CHEW PO SCH (10:05)
[2017-05-03] MEDS: Metoprolol XL (24 HR) Succ 50 MG TAB.ER.24H PO SCH (10:05)
[2017-05-03] MEDS: Furosemide 40 MG/4 ML VIAL IVP SCH ×2 (10:05→17:14)
[2017-05-03] MEDS: metOLazone 5 MG TABLET PO SCH (10:27)
--- NOTE | 2017-05-03 13:03 | Urology - Consult Note ---
Date of Encounter: 05/03/17 Time of Encounter: 13:01 - Assessment and Plan (1) Scrotal edema Current Visit: Yes Status: Acute Assessment and plan: scrotal edema is secondary to overall anasarca and fluid overload. best way to resolve is aggressive diuresis. need to maintain strict scrotal support. when I evaluated the patient he was sitting at bedside and the scrotal was "hanging" off the side of the bed and almost reached the floor. I instructed patient that this position will result in more edema. (2) Urinary catheter insertion/adjustment/removal Current Visit: Yes Status: Acute Assessment and plan: able to place navarrete. see procedure note. keep in place as long as primary service requires. Urology CN:HPI Consult date: 05/03/17 Reason for consult Urology: Difficult Navarrete History of present illness: consult for anasarca, severe scrotal swelling and inability to place navarrete cath for diuresis. Past Med Surg Social Fam HX - Past Medical History Medical history: arthritis, atrial fibrillation, CHF, COPD, diabetes, hyperlipidemia, hypertension Psychiatric history: no psych history - Past Surgical History Surgical History: orthopedic, other, pacemaker/AICD - Social History Smoking Status: Former smoker Smokeless Tobacco Status: No Alcohol use: none Drug use: marijuana - Family History Father Hx Family Cardiac Disorders: Yes (Quadruple Bypass) Mother Family Member Ethnicity: Non- Living Status: Medications and Allergies Amiodarone [Cordarone] 200 mg PO DAILY 04/28/15 [History] Aspirin 81 mg PO DAILY 04/28/15 [History] Atorvastatin [Lipitor] 40 mg PO HS 04/28/15 [History] Citalopram [CeleXA] 40 mg PO DAILY 04/28/15 [History] Docosahexanoic Acid/Epa [Fish Oil Concentrate Softgel] 1 each PO DAILY 04/28/15 [History] Ferrous Sulfate 325 mg PO BIDWM 04/28/15 [History] Garlic 1,000 mg PO DAILY 04/28/15 [History] GlipiZIDE XL (24 HR) [Glucotrol XL] 20 mg PO QAM 04/28/15 [History] Insulin DETEMIR [Levemir] 70 units SQ BID 04/28/15 [History] SitaGLIPtin [Januvia] 100 mg PO DAILY 04/28/15 [History] Albuterol Sulfate [Proair Hfa] 2 puff IH Q4H PRN 01/25/17 [History] Budesonide/Formoterol 160/4.5 [Symbicort 160/4.5] 2 puff IH BIDR 01/25/17 [ History] Metoprolol Succinate 200 mg PO DAILY 01/25/17 [History] Oxygen 2 l NS CONT 02/03/17 [History] Furosemide [Lasix] 60 mg PO BID #180 tab 02/08/17 [Rx] Dextrose Gel [Gluctose] 30 gm PO ONCE PRN #0 gel..gram. 02/23/17 [Rx] Glucagon, Human Recombinant [Glucagen] 1 mg IM ONCE PRN #0 vial 02/23/17 [Rx] Nicotine Patch [Nicoderm] 21 mg TD DAILY #30 patch.td24 02/23/17 [Rx] Nitroglycerin 0.4 mg SL Q5MIN PRN #0 tab.subl 02/23/17 [Rx] Potassium Chloride 8 meq PO DAILY tablet.er 02/23/17 [Rx] Tiotropium [Spiriva] 18 mcg IH 0800 #30 inh 02/23/17 [Rx] metFORMIN [Glucophage] 1,000 mg PO BIDWM tablet 02/23/17 [Rx] Diltiazem HCl [Diltiazem 24Hr Cd] 180 mg PO BID 04/06/17 [History] Insulin LISPRO [HumaLOG] 4 - 16 units SQ TIDAC 04/06/17 [History] Meclizine HCl [Verticalm] 25 - 50 mg PO Q4H PRN 04/06/17 [History] Rivaroxaban [Xarelto] 20 mg PO DAILY 04/06/17 [History] Collagenase Oint [Santyl] 1 appl TP DAILY 04/14/17 [Rx] 3 Allergy/AdvReac Type Severity Reaction Status Date / Time bupropion [From Wellbutrin] Allergy Difficulty Verified 04/28/15 08:53 Breathing codeine Allergy Difficulty Verified 04/28/15 08:53 Breathing Opioids-Meperidine and Allergy Difficulty Verified 04/28/15 08:53 Related Breathing [Opioids-Meperidine & Related] Review of Systems - Constitutional fatigue, no fever(s) - EENT Nose, mouth and throat: no dizziness - Cardiovascular edema, no chest pain - Respiratory dyspnea - Gastrointestinal abdominal pain - Genitourinary difficulty urinating - Musculoskeletal back pain - Integumentary no erythema - Neurological no confusion - Psychiatric no anxiety - Hematologic/Lymphatic no easy bleeding Exam Initial Vital Signs Temp Pulse Resp BP Pulse Ox 99.0 F 106 20 122/83 100 04/30/17 19:57 04/30/17 19:57 04/30/17 19:57 04/30/17 19:57 04/30/17 19:57 - General physical appearance Present: no distress, obese - Eyes Present: PERRL - ENT Present: normal nares - Neck Present: no masses - Respiratory Present: other (labored) - Cardiovascular Cardiovascular exam IM: RRR - Abdomen Abdomen: Present: soft (obese) - Genitourinary Penis: Present: edema, phimosis - Neurologic Absent: disoriented, confused - Additional Findings severe scrotal wall edema. penile edema would not allow retraction of the foreskin. Urology Results - Labs 05/03/17 07:00 05/03/17 07:00 Abnormal lab results WBC 11.4 K/mcL (4.3-11.1) H 05/03/17 07:00 RBC 3.33 M/mcL (4.19-5.50) L 05/03/17 07:00 Hgb 8.8 g/dL (12.9-16.9) L 05/03/17 07:00 Hct 29.6 % (37.5-50.1) L 05/03/17 07:00 MCH 26.4 pg (28.0-33.3) L 05/03/17 07:00 MCHC 29.7 g/dL (31.6-35.5) L 05/03/17 07:00 RDW 18.3 % (11.5-14.5) H 05/03/17 07:00 Plt Count 418 K/mcL (140-400) H 05/03/17 07:00 MPV 8.9 fL (9.4-12.4) L 05/03/17 07:00 Neutrophils # 9.2 K/mcL (1.6-8.9) H 05/03/17 07:00 Nucleated RBCs/100 WBC 0.2 /100 WBC (0) H 05/03/17 07:00 ABG pH 7.46 pH Units (7.32-7.45) H 04/30/17 20:57 ABG pO2 133 mmHg (85-104) H 04/30/17 20:57 ABG HCO3 31.3 mEQ/L (21-27) H 04/30/17 20:57 ABG Total CO2 32.7 mEq/L (20-26) H 04/30/17 20:57 ABG O2 Saturation 99 % (95-98) H 04/30/17 20:57 ABG Base Excess 6.8 mEq/L (-2.0 to 3.0) H 04/30/17 20:57 Potassium 3.0 mEq/L (3.5-4.5) L 05/03/17 07:00 Chloride 94 mEq/L (98-109) L 05/03/17 07:00 Carbon Dioxide 36 mEq/L (19-29) H 05/03/17 07:00 BUN 44 mg/dL (8-26) H 05/03/17 07:00 BUN/Creatinine Ratio 38 (6-26) H 05/03/17 07:00 POC Glucose 100 (58-89) H 05/03/17 07:25 Calculated Osmolality 303 (280-300) H 05/03/17 07:00 B-Natriuretic Peptide 658 pg/mL (0-100) H 04/30/17 20:53 Albumin 2.5 g/dL (3.5-5.0) L 05/03/17 07:00 Globulin 3.7 g/dL (2.4-3.5) H 05/03/17 07:00 Albumin/Globulin Ratio 0.7 (1.1-2.2) L 05/03/17 07:00 Antibody Screen POSITIVE A 05/01/17 02:54 Diabetes panel 05/03/17 Range/Units 07:00 Sodium 141 (136-145) mEq/L Potassium 3.0 L (3.5-4.5) mEq/L Chloride 94 L (98-109) mEq/L Carbon Dioxide 36 H (19-29) mEq/L BUN 44 H (8-26) mg/dL Creatinine 1.17 (0.72-1.25) mg/dL Glucose 90 (70-99) mg/dL Calcium 8.7 (8.6-10.8) mg/dL AST 22 (5-34) Units/L ALT 24 (0-55) Units/L Alkaline Phosphatase 111 (38-126) Units/L Albumin 2.5 L (3.5-5.0) g/dL Calcium panel 05/03/17 Range/Units 07:00 Calcium 8.7 (8.6-10.8) mg/dL Phosphorus 4.0 (2.3-4.7) mg/dL Albumin 2.5 L (3.5-5.0) g/dL Pituitary panel 05/03/17 Range/Units 07:00 Sodium 141 (136-145) mEq/L Potassium 3.0 L (3.5-4.5) mEq/L Chloride 94 L (98-109) mEq/L Carbon Dioxide 36 H (19-29) mEq/L BUN 44 H (8-26) mg/dL Creatinine 1.17 (0.72-1.25) mg/dL Glucose 90 (70-99) mg/dL Calcium 8.7 (8.6-10.8) mg/dL Adrenal panel 05/03/17 Range/Units 07:00 Sodium 141 (136-145) mEq/L Potassium 3.0 L (3.5-4.5) mEq/L Chloride 94 L (98-109) mEq/L Carbon Dioxide 36 H (19-29) mEq/L BUN 44 H (8-26) mg/dL Creatinine 1.17 (0.72-1.25) mg/dL Glucose 90 (70-99) mg/dL Calcium 8.7 (8.6-10.8) mg/dL Total Bilirubin 0.5 (0.2-1.2) mg/dL AST 22 (5-34) Units/L ALT 24 (0-55) Units/L Alkaline Phosphatase 111 (38-126) Units/L Albumin 2.5 L (3.5-5.0) g/dL All other labs normal. Procedures:Urology - Catheter Insertion (Urinary) Prophylactic antibiotics given: No Bladder Scan/Ultrasound used before catheterization: No Estimated amount of urin (mLs): 200 (clear and still flowing. ) Preparation: Povidone-Iodine Type of catheter inserted: 2 way Catheter Georgian Size: 16 Topical anesthesia used: No Results: successfully catheterized-immediate flow Urine Appearance: Clear Patient tolerated procedure: well Complications: none Additional comments: unable to retract foreskin because of massive edema. able to apply pressure to penis for 5 min to relieve some edema. this allowed me to grasp the glans and line up meatus with the phimotic opening. 16 new zealander cath was placed. Consult Discharge Plan - Plan Referrals: Damian Seymour MD [Primary Care Provider] -
[2017-05-03] MEDS: *HR* Amiodarone 200 MG TABLET PO SCH (15:39)
--- NOTE | 2017-05-03 16:23 | Internal Med Progress Note ---
Date of Encounter: 05/03/17 Time of Encounter: 16:21 - Assessment and plan (1) Acute and chronic respiratory failure Current Visit: No Status: Acute Qualifiers: Respiratory failure complication: hypoxia Qualified Code(s): J96.21 - Acute and chronic respiratory failure with hypoxia (2) Congestive heart failure Current Visit: No Status: Acute Qualifiers: Congestive heart failure type: systolic Congestive heart failure chronicity : acute on chronic Qualified Code(s): I50.23 - Acute on chronic systolic ( congestive) heart failure (3) Scrotal edema Current Visit: No Status: Acute (4) Acute exacerbation of chronic obstructive airways disease Current Visit: No Status: Acute (5) Afib Current Visit: No Status: Chronic Qualifiers: Atrial fibrillation type: paroxysmal Qualified Code(s): I48.0 - Paroxysmal atrial fibrillation (6) Sleep apnea with use of continuous positive airway pressure (CPAP) Current Visit: No Status: Chronic (7) Type 2 diabetes mellitus Current Visit: No Status: Chronic Qualifiers: Diabetes mellitus complication status: with unspecified complications Diabetes mellitus care home insulin use: with care home use Qualified Code(s) : E11.8 - Type 2 diabetes mellitus with unspecified complications; 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 (8) Aortic stenosis Current Visit: No Status: Acute Qualifiers: Cardiac valve disease etiology: nonrheumatic Qualified Code(s): I35.0 - Nonrheumatic aortic (valve) stenosis (9) Pacemaker Current Visit: No Status: Acute (10) Cirrhosis Current Visit: No Status: Acute Qualifiers: Hepatic cirrhosis type: unspecified hepatic cirrhosis Ascites presence: with ascites Qualified Code(s): K74.60 - Unspecified cirrhosis of liver (11) Essential hypertension Current Visit: No Status: Chronic (12) Morbid obesity with BMI of 40.0-44.9, adult Current Visit: No Status: Chronic (13) DVT prophylaxis Current Visit: No Status: Acute - Subjective Interval history: Mr. Jaime Diaz is a 71-year-old male who was discharged yesterday from hospitalist service by Dr. Yoli Kelly. He returned with the shortness of breath and is portals were swelling. Patient is morbidly obese, has history of chronic atrial fibrillation and diastolic congestive heart failure with known EF around 50%. Problem list: #1 acute combined systolic and diastolic congestive heart failure with ejection fraction estimated in the range of 45-50% on echocardiogram done this month. He is noted to have elevated RV and RA pressures. He will be aggressively diuresed and Lasix will be increased to 80 twice a day with Zaroxolyn supplementing potassium and rechecking potassium creatinine and magnesium on daily basis. Strict I's and O's. Patient will remain on telemetry. Chest x- ray showed pulmonary edema. No good I's and O's S patient is incontinent. However I suspect he has diuresed very well. Discussed with nursing staff. #5 scrotal edema probably a combination of dependent edema as well as increase intra-abdominal vascular pressure secondary to CHF and obesity. Plan As outlined above #2 acute exacerbation of COPD. Patient will be treated with the nebulizers on regular basis #3 chronic atrial fibrillation, rate controlled with Cardizem and patient is on long-term AC with Xarelto. #4 diabetes, Accu-Chek 4 times a day with sliding scale with daily monitoring #5 hypokalemia supplement and recheck in the morning Overall improving. . Plan to continue diuresis and reduce his steroids. Recheck magnesium. Supplement potassium and recheck it put it. Urology consulted for Patton placement and advice for scrotal edema. - Constitutional Vitals: Temp Pulse Resp BP Pulse Ox 97.7 F 72 18 111/62 93 05/03/17 16:00 05/03/17 16:00 05/03/17 16:04 05/03/17 16:00 05/03/17 16:04 General appearance: Present: A&O X 3 - Head Head exam: Present: atraumatic, normocephalic - Eye Eye exam: Present: PERRL, conjuntiva pink, sclera anicteric Pupils: Present: PERRL - Neck Neck exam general surgery: Present: supple, trachea midline. Absent: lymphadenopathy - Respiratory Respiratory exam: Present: CTAB. Absent: accessory muscle use, rales, rhonchi, wheezes - Cardiovascular Cardiovascular exam: Present: RRR, +S1, +S2. Absent: diastolic murmur, gallop, rubs, systolic murmur - GI/Abdominal GI/Abdominal exam: Present: normal bowel sounds, soft, no peritoneal signs. Absent: distended, tenderness - Extremities Exam Extremities exam: Present: pedal edema, warm, radial pulses palpable and symmetrical. Absent: calf tenderness, cyanotic - Neurological Exam Neurological exam: Present: CN II-XII intact, oriented X3, no focal deficits. Absent: pronater drift, facial droop, speech deficit - Skin Skin exam: Present: dry, intact Internal Medicine: Result - Labs CBC & Chem 7: 05/03/17 07:00 05/03/17 07:00 Labs: Short CBC 05/03/17 Range/Units 07:00 WBC 11.4 H (4.3-11.1) K/mcL Hgb 8.8 L (12.9-16.9) g/dL Hct 29.6 L (37.5-50.1) % Plt Count 418 H (140-400) K/mcL Neutrophils # 9.2 H (1.6-8.9) K/mcL BMP 05/03/17 07:00 Sodium 141 Potassium 3.0 L Chloride 94 L Carbon Dioxide 36 H BUN 44 H Creatinine 1.17 Glucose 90 Calcium 8.7 Liver Function 05/03/17 Range/Units 07:00 Total Bilirubin 0.5 (0.2-1.2) mg/dL AST 22 (5-34) Units/L ALT 24 (0-55) Units/L Alkaline Phosphatase 111 (38-126) Units/L Albumin 2.5 L (3.5-5.0) g/dL - ABG Interpretation ABG results: ABG ABG pH 7.46 pH Units (7.32-7.45) H 04/30/17 20:57 ABG pCO2 44 mmHg (35-45) 04/30/17 20:57 ABG pO2 133 mmHg (85-104) H 04/30/17 20:57 ABG O2 Saturation 99 % (95-98) H 04/30/17 20:57 Consult Discharge Plan - Plan Referrals: Damian Seymour MD [Primary Care Provider] -
[2017-05-04] MEDS: Ipratropium/Albuterol Neb 3 ML IH SCH ×4 (04:55→22:26)
[2017-05-04] MEDS: metOLazone 5 MG TABLET PO SCH (07:30)
[2017-05-04 07:33] LABS: Basophils # 0.1 K/mcL (0.0-0.2); Basophils % 0.5 %; Eosinophils # 0.3 K/mcL (0.0-0.6); Hematocrit 26.8 % (37.5-50.1); Hemoglobin 8.1 g/dL (12.9-16.9); Immature Granulocytes % 0.3 % (0-4); Lymphocytes # 0.6 K/mcL (0.6-4.6); Mean Corpuscular HGB Conc 30.2 g/dL (31.6-35.5); Mean Corpuscular Hemoglobin 26.6 pg (28.0-33.3); Mean Corpuscular Volume 87.9 fL (83.0-100.0); Monocytes # 1.2 K/mcL (0.0-1.3); Neutrophils # 8.1 K/mcL (1.6-8.9); Platelet Count 385 K/mcL (140-400); Red Blood Count 3.05 M/mcL (4.19-5.50); Red Cell Distribution Width 17.6 % (11.5-14.5); Segmented Neutrophils % 78.2 %
[2017-05-04 07:42] LABS: Alanine Aminotransferase 24 Units/L (0-55); Albumin 2.4 g/dL (3.5-5.0); Albumin/Globulin Ratio 0.7 (1.1-2.2); Alkaline Phosphatase 117 Units/L (38-126); Aspartate Amino Transferase 19 Units/L (5-34); BUN/Creatinine Ratio 42 (6-26); Bilirubin,Total 0.4 mg/dL (0.2-1.2); Blood Urea Nitrogen 44 mg/dL (8-26); Calcium 8.7 mg/dL (8.6-10.8); Chloride 90 mEq/L (98-109); Globulin 3.5 g/dL (2.4-3.5); Glucose 66 mg/dL (70-99); Magnesium 1.9 mg/dL (1.6-2.6); Osmolality,Calculated 299 (280-300); Phosphorous 3.8 mg/dL (2.3-4.7); Potassium 2.8 mEq/L (3.5-4.5); Sodium 140 mEq/L (136-145); Total Protein 5.9 g/dL (6.0-8.3); eGFR For African Americans > 60 (> 60); eGFR For Non-African Americans > 60 (> 60)
[2017-05-04 07:45] LABS: Carbon Dioxide 41 mEq/L (19-29)
[2017-05-04] MEDS: Metoprolol XL (24 HR) Succ 50 MG TAB.ER.24H PO SCH (08:53)
[2017-05-04] MEDS: *HR* Rivaroxaban 10 MG TABLET PO SCH (08:53)
[2017-05-04] MEDS: Diltiazem SR (12hr) 90 MG CAPSULE PO SCH ×2 (08:53→20:25)
[2017-05-04] MEDS: Insulin DETEMIR 100 UNIT/ML X5UNITS SQ SCH ×2 (08:53→20:26)
[2017-05-04] MEDS: Aspirin 81 MG TAB.CHEW PO SCH (08:54)
[2017-05-04] MEDS: *HR* Amiodarone 200 MG TABLET PO SCH (08:54)
[2017-05-04] MEDS: Furosemide 40 MG/4 ML VIAL IVP SCH ×2 (08:54→18:05)
[2017-05-04] MEDS: Insulin LISPRO 300 UNITS/3 ML VIAL SQ SCH ×7 (08:55→20:26)
[2017-05-04] MEDS ORDERED: Potassium Chloride 40 MEQ, Lidocaine 1% 2 ML in D5% in Water 500 ML IVPB STA (09:14)
--- NOTE | 2017-05-04 16:40 | Internal Med Progress Note ---
Date of Encounter: 05/04/17 Time of Encounter: 16:39 - Assessment and plan (1) Acute and chronic respiratory failure Current Visit: No Status: Acute Qualifiers: Respiratory failure complication: hypoxia Qualified Code(s): J96.21 - Acute and chronic respiratory failure with hypoxia (2) Congestive heart failure Current Visit: No Status: Acute Qualifiers: Congestive heart failure type: systolic Congestive heart failure chronicity : acute on chronic Qualified Code(s): I50.23 - Acute on chronic systolic ( congestive) heart failure (3) Scrotal edema Current Visit: No Status: Acute (4) Acute exacerbation of chronic obstructive airways disease Current Visit: No Status: Acute (5) Afib Current Visit: No Status: Chronic Qualifiers: Atrial fibrillation type: paroxysmal Qualified Code(s): I48.0 - Paroxysmal atrial fibrillation (6) Sleep apnea with use of continuous positive airway pressure (CPAP) Current Visit: No Status: Chronic (7) Type 2 diabetes mellitus Current Visit: No Status: Chronic Qualifiers: Diabetes mellitus complication status: with unspecified complications Diabetes mellitus nursing home insulin use: with nursing home use Qualified Code(s) : E11.8 - Type 2 diabetes mellitus with unspecified complications; 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 (8) Aortic stenosis Current Visit: No Status: Acute Qualifiers: Cardiac valve disease etiology: nonrheumatic Qualified Code(s): I35.0 - Nonrheumatic aortic (valve) stenosis (9) Pacemaker Current Visit: No Status: Acute (10) Cirrhosis Current Visit: No Status: Acute Qualifiers: Hepatic cirrhosis type: unspecified hepatic cirrhosis Ascites presence: with ascites Qualified Code(s): K74.60 - Unspecified cirrhosis of liver (11) Essential hypertension Current Visit: No Status: Chronic (12) Morbid obesity with BMI of 40.0-44.9, adult Current Visit: No Status: Chronic (13) DVT prophylaxis Current Visit: No Status: Acute - Subjective Interval history: Mr. Jaime Diaz is a 71-year-old male who was discharged yesterday from hospitalist service by Dr. Yoli Kelly. He returned with the shortness of breath and is portals were swelling. Patient is morbidly obese, has history of chronic atrial fibrillation and diastolic congestive heart failure with known EF around 50%. Problem list: #1 acute combined systolic and diastolic congestive heart failure with ejection fraction estimated in the range of 45-50% on echocardiogram done this month. He is noted to have elevated RV and RA pressures. He will be aggressively diuresed and Lasix will be increased to 80 twice a day with Zaroxolyn supplementing potassium and rechecking potassium creatinine and magnesium on daily basis. Strict I's and O's. Patient will remain on telemetry. Chest x- ray showed pulmonary edema. No good I's and O's S patient is incontinent. However I suspect he has diuresed very well. Discussed with nursing staff. #5 scrotal edema probably a combination of dependent edema as well as increase intra-abdominal vascular pressure secondary to CHF and obesity. Plan As outlined above #2 acute exacerbation of COPD. Patient will be treated with the nebulizers on regular basis #3 chronic atrial fibrillation, rate controlled with Cardizem and patient is on long-term AC with Xarelto. #4 diabetes, Accu-Chek 4 times a day with sliding scale with daily monitoring #5 hypokalemia supplement and recheck in the morning Overall improving. . Plan to continue diuresis and reduce his steroids. Recheck magnesium. Supplement potassium and recheck it put it. Urology consulted for Patton placement and advice for scrotal edema. - Constitutional Vitals: Temp Pulse Resp BP Pulse Ox 98.4 F 84 16 88/43 95 05/04/17 15:40 05/04/17 15:40 05/04/17 15:40 05/04/17 15:40 05/04/17 15:40 General appearance: Present: A&O X 3 - Head Head exam: Present: atraumatic, normocephalic - Eye Eye exam: Present: PERRL, conjuntiva pink, sclera anicteric Pupils: Present: PERRL - Neck Neck exam general surgery: Present: supple, trachea midline. Absent: lymphadenopathy - Respiratory Respiratory exam: Present: CTAB. Absent: accessory muscle use, rales, rhonchi, wheezes - Cardiovascular Cardiovascular exam: Present: RRR, +S1, +S2. Absent: diastolic murmur, gallop, rubs, systolic murmur - GI/Abdominal GI/Abdominal exam: Present: normal bowel sounds, soft, no peritoneal signs. Absent: distended, tenderness - Extremities Exam Extremities exam: Present: pedal edema, warm, radial pulses palpable and symmetrical. Absent: calf tenderness, cyanotic - Neurological Exam Neurological exam: Present: CN II-XII intact, oriented X3, no focal deficits. Absent: pronater drift, facial droop, speech deficit - Skin Skin exam: Present: dry, intact Internal Medicine: Result - Labs CBC & Chem 7: 05/04/17 07:21 05/04/17 07:21 - ABG Interpretation ABG results: ABG ABG pH 7.46 pH Units (7.32-7.45) H 04/30/17 20:57 ABG pCO2 44 mmHg (35-45) 04/30/17 20:57 ABG pO2 133 mmHg (85-104) H 04/30/17 20:57 ABG O2 Saturation 99 % (95-98) H 04/30/17 20:57 Consult Discharge Plan - Plan Referrals: Damian Seymour MD [Primary Care Provider] -
[2017-05-04 17:08] LABS: Calcium 8.3 mg/dL (8.6-10.8)
[2017-05-04 17:12] LABS: Potassium 4.2 mEq/L (3.5-4.5)
[2017-05-05 05:10] LABS: Basophils # 0.1 K/mcL (0.0-0.2); Basophils % 0.5 %; Eosinophils # 0.3 K/mcL (0.0-0.6); Eosinophils % 2.7 %; Hematocrit 22.1 % (37.5-50.1); Hemoglobin 6.8 g/dL (12.9-16.9); Immature Granulocytes % 0.7 % (0-4); Lymphocytes # 0.8 K/mcL (0.6-4.6); Lymphocytes % 8.9 %; Mean Corpuscular HGB Conc 30.8 g/dL (31.6-35.5); Mean Corpuscular Hemoglobin 27.1 pg (28.0-33.3); Mean Platelet Volume 9.5 fL (9.4-12.4); Monocytes # 1.2 K/mcL (0.0-1.3); Monocytes % 13.1 %; Neutrophils # 6.8 K/mcL (1.6-8.9); Nucleated Red Blood Cells 0.2 /100 WBC (0); Platelet Count 336 K/mcL (140-400); Red Blood Count 2.51 M/mcL (4.19-5.50); Red Cell Distribution Width 17.3 % (11.5-14.5); Segmented Neutrophils % 74.1 %
[2017-05-05] MEDS: Ipratropium/Albuterol Neb 3 ML IH SCH ×4 (05:10→23:38)
[2017-05-05 05:32] LABS: Alanine Aminotransferase 26 Units/L (0-55); Albumin 2.3 g/dL (3.5-5.0); Albumin/Globulin Ratio 0.7 (1.1-2.2); Alkaline Phosphatase 122 Units/L (38-126); Aspartate Amino Transferase 17 Units/L (5-34); BUN/Creatinine Ratio 49 (6-26); Bilirubin,Total < 0.3 mg/dL (0.2-1.2); Blood Urea Nitrogen 60 mg/dL (8-26); Calcium 8.4 mg/dL (8.6-10.8); Carbon Dioxide 38 mEq/L (19-29); Chloride 90 mEq/L (98-109); Globulin 3.5 g/dL (2.4-3.5); Glucose 163 mg/dL (70-99); Osmolality,Calculated 310 (280-300); Potassium 2.9 mEq/L (3.5-4.5); Sodium 140 mEq/L (136-145); Total Protein 5.8 g/dL (6.0-8.3); eGFR For African Americans > 60 (> 60); eGFR For Non-African Americans 58 (> 60)
[2017-05-05] MEDS: metOLazone 5 MG TABLET PO SCH (07:40)
[2017-05-05] MEDS ORDERED: Potassium Chloride 40 MEQ, Lidocaine 1% 2 ML in D5% in Water 500 ML IVPB STA (08:28)
[2017-05-05] MEDS: Furosemide 40 MG/4 ML VIAL IVP SCH ×2 (08:57→18:15)
[2017-05-05] MEDS: Insulin LISPRO 300 UNITS/3 ML VIAL SQ SCH ×7 (08:57→22:19)
[2017-05-05] MEDS: Insulin DETEMIR 100 UNIT/ML X5UNITS SQ SCH ×2 (08:57→22:17)
[2017-05-05] MEDS: Diltiazem SR (12hr) 90 MG CAPSULE PO SCH ×2 (08:58→21:21)
[2017-05-05] MEDS: *HR* Amiodarone 200 MG TABLET PO SCH (08:59)
[2017-05-05] MEDS: *HR* Rivaroxaban 10 MG TABLET PO SCH (08:59)
[2017-05-05] MEDS: Metoprolol XL (24 HR) Succ 50 MG TAB.ER.24H PO SCH (08:59)
[2017-05-05] MEDS: Aspirin 81 MG TAB.CHEW PO SCH (08:59)
[2017-05-05 09:40] LABS: Hematocrit 24.4 % (37.5-50.1); Hemoglobin 7.4 g/dL (12.9-16.9)
[2017-05-05 11:21] LABS: % Iron Saturation 10 % (20-55); Iron 40 mcg/dL (65-175); Transferrin 298 mg/dL (174-364)
[2017-05-05 11:55] LABS: Folate 5.6 ng/mL (7.0-31.4)
[2017-05-05] MEDS: Pantoprazole 40 MG VIAL IVP SCH ×2 (11:55→22:14)
[2017-05-05] MEDS ORDERED: 0.9 % Sodium Chloride 500 ML ONE ×2 (13:33→18:46)
[2017-05-05] MEDS ORDERED: Ferumoxytol 510 MG in 0.9 % Sodium Chloride 100 ML IVPB ONE (16:04)
--- NOTE | 2017-05-05 17:31 | Internal Med Progress Note ---
Date of Encounter: 05/05/17 Time of Encounter: 17:28 - Assessment and plan (1) Congestive heart failure Current Visit: Yes Status: Acute Qualifiers: Congestive heart failure type: systolic Congestive heart failure chronicity : acute on chronic Qualified Code(s): I50.23 - Acute on chronic systolic ( congestive) heart failure (2) GI bleed Current Visit: Yes Status: Acute Qualifiers: GI bleed type/associated pathology: melena Qualified Code(s): K92.1 - Melena (3) Acute and chronic respiratory failure Current Visit: Yes Status: Acute Qualifiers: Respiratory failure complication: hypoxia Qualified Code(s): J96.21 - Acute and chronic respiratory failure with hypoxia (4) Scrotal edema Current Visit: Yes Status: Acute (5) Acute exacerbation of chronic obstructive airways disease Current Visit: Yes Status: Acute (6) Afib Current Visit: Yes Status: Chronic Qualifiers: Atrial fibrillation type: paroxysmal Qualified Code(s): I48.0 - Paroxysmal atrial fibrillation (7) Sleep apnea with use of continuous positive airway pressure (CPAP) Current Visit: Yes Status: Chronic (8) Type 2 diabetes mellitus Current Visit: Yes Status: Chronic Qualifiers: Diabetes mellitus complication status: with unspecified complications 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 Qualified Code(s) : E11.8 - Type 2 diabetes mellitus with unspecified complications; 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 (9) Aortic stenosis Current Visit: Yes Status: Acute Qualifiers: Cardiac valve disease etiology: nonrheumatic Qualified Code(s): I35.0 - Nonrheumatic aortic (valve) stenosis (10) Pacemaker Current Visit: Yes Status: Acute (11) Cirrhosis Current Visit: Yes Status: Acute Qualifiers: Hepatic cirrhosis type: unspecified hepatic cirrhosis Ascites presence: with ascites Qualified Code(s): K74.60 - Unspecified cirrhosis of liver (12) Essential hypertension Current Visit: Yes Status: Chronic (13) Morbid obesity with BMI of 40.0-44.9, adult Current Visit: Yes Status: Chronic (14) DVT prophylaxis Current Visit: Yes Status: Acute - Subjective Interval history: Mr. Jaime Diaz is a 71-year-old male who was discharged yesterday from hospitalist service by Dr. Yoli Kelly. He returned with the shortness of breath and is portals were swelling. Patient is morbidly obese, has history of chronic atrial fibrillation and diastolic congestive heart failure with known EF around 50%. Problem list: #1 acute combined systolic and diastolic congestive heart failure with ejection fraction estimated in the range of 45-50% on echocardiogram done this month. He is noted to have elevated RV and RA pressures. He will be aggressively diuresed and Lasix will be increased to 80 twice a day with Zaroxolyn supplementing potassium and rechecking potassium creatinine and magnesium on daily basis. Strict I's and O's. Patient will remain on telemetry. Chest x- ray showed pulmonary edema. No good I's and O's S patient is incontinent. However I suspect he has diuresed very well. Discussed with nursing staff. #5 scrotal edema probably a combination of dependent edema as well as increase intra-abdominal vascular pressure secondary to CHF and obesity. Plan As outlined above #2 acute exacerbation of COPD. Patient will be treated with the nebulizers on regular basis #3 chronic atrial fibrillation, rate controlled with Cardizem and patient is on long-term AC with Xarelto. #4 diabetes, Accu-Chek 4 times a day with sliding scale with daily monitoring #5 hypokalemia supplement and recheck in the morning Overall improving. . Plan to continue diuresis and reduce his steroids. Recheck magnesium. Supplement potassium and recheck it put it. Urology consulted for Patton placement and advice for scrotal edema. His hemoglobin has dropped to 6.8. He received 2 units on admission and will go ahead and transfuse him 2 more units. I discussed the case with gas and follow G. Patient had colonoscopy and EGDs this year. Patient will be nothing by mouth after midnight for EGD. He is a started on PPI and his iron profile is pending. - Constitutional Vitals: Temp Pulse Resp BP Pulse Ox 98.0 F 80 12 113/53 97 05/05/17 16:58 05/05/17 16:58 05/05/17 16:58 05/05/17 16:58 05/05/17 16:58 General appearance: Present: A&O X 3 - Head Head exam: Present: atraumatic, normocephalic - Eye Eye exam: Present: PERRL, conjuntiva pink, sclera anicteric Pupils: Present: PERRL - Neck Neck exam general surgery: Present: supple, trachea midline. Absent: lymphadenopathy - Respiratory Respiratory exam: Present: CTAB. Absent: accessory muscle use, rales, rhonchi, wheezes - Cardiovascular Cardiovascular exam: Present: RRR, +S1, +S2. Absent: diastolic murmur, gallop, rubs, systolic murmur - GI/Abdominal GI/Abdominal exam: Present: normal bowel sounds, soft, no peritoneal signs. Absent: distended, tenderness - Extremities Exam Extremities exam: Present: pedal edema, warm, radial pulses palpable and symmetrical. Absent: calf tenderness, cyanotic - Neurological Exam Neurological exam: Present: CN II-XII intact, oriented X3, no focal deficits. Absent: pronater drift, facial droop, speech deficit - Skin Skin exam: Present: dry, intact Internal Medicine: Result - Labs CBC & Chem 7: 05/05/17 09:19 05/05/17 04:17 Labs: Short CBC 05/05/17 05/05/17 Range/Units 04:17 09:19 WBC 9.2 (4.3-11.1) K/mcL Hgb 6.8 L 7.4 L (12.9-16.9) g/dL Hct 22.1 L 24.4 L (37.5-50.1) % Plt Count 336 (140-400) K/mcL Neutrophils # 6.8 (1.6-8.9) K/mcL BMP 05/05/17 04:17 Sodium 140 Potassium 2.9 L D Chloride 90 L Carbon Dioxide 38 H BUN 60 H Creatinine 1.22 Glucose 163 H Calcium 8.4 L Liver Function 05/05/17 Range/Units 04:17 Total Bilirubin < 0.3 (0.2-1.2) mg/dL AST 17 (5-34) Units/L ALT 26 (0-55) Units/L Alkaline Phosphatase 122 (38-126) Units/L Albumin 2.3 L (3.5-5.0) g/dL - ABG Interpretation ABG results: ABG ABG pH 7.46 pH Units (7.32-7.45) H 04/30/17 20:57 ABG pCO2 44 mmHg (35-45) 04/30/17 20:57 ABG pO2 133 mmHg (85-104) H 04/30/17 20:57 ABG O2 Saturation 99 % (95-98) H 04/30/17 20:57 Consult Discharge Plan - Plan Referrals: Damian Seymour MD [Primary Care Provider] -
[2017-05-05] MEDS ORDERED: 0.9 % Sodium Chloride 250 ML ONE (22:01)
[2017-05-06 01:45] LABS: Basophils % 0.4 %; Eosinophils # 0.3 K/mcL (0.0-0.6); Hematocrit 23.5 % (37.5-50.1); Hemoglobin 7.4 g/dL (12.9-16.9); Immature Granulocytes % 0.5 % (0-4); Lymphocytes # 0.8 K/mcL (0.6-4.6); Lymphocytes % 8.9 %; Mean Corpuscular HGB Conc 31.5 g/dL (31.6-35.5); Mean Corpuscular Hemoglobin 27.7 pg (28.0-33.3); Mean Platelet Volume 9.7 fL (9.4-12.4); Monocytes # 1.1 K/mcL (0.0-1.3); Monocytes % 11.9 %; Nucleated Red Blood Cells 0.2 /100 WBC (0); Platelet Count 336 K/mcL (140-400); Red Blood Count 2.67 M/mcL (4.19-5.50); Red Cell Distribution Width 16.5 % (11.5-14.5); Segmented Neutrophils % 75.3 %
[2017-05-06 01:57] LABS: Alanine Aminotransferase 22 Units/L (0-55); Albumin 2.4 g/dL (3.5-5.0); Albumin/Globulin Ratio 0.6 (1.1-2.2); Alkaline Phosphatase 113 Units/L (38-126); Aspartate Amino Transferase 16 Units/L (5-34); BUN/Creatinine Ratio 50 (6-26); Bilirubin,Total 0.5 mg/dL (0.2-1.2); Blood Urea Nitrogen 63 mg/dL (8-26); Calcium 8.5 mg/dL (8.6-10.8); Carbon Dioxide 39 mEq/L (19-29); Chloride 90 mEq/L (98-109); Globulin 3.7 g/dL (2.4-3.5); Glucose 123 mg/dL (70-99); Osmolality,Calculated 307 (280-300); Potassium 3.1 mEq/L (3.5-4.5); Sodium 139 mEq/L (136-145); Total Protein 6.1 g/dL (6.0-8.3); eGFR For African Americans > 60 (> 60); eGFR For Non-African Americans 57 (> 60)
[2017-05-06] MEDS: Ipratropium/Albuterol Neb 3 ML IH SCH (04:25)
[2017-05-06] MEDS: metOLazone 5 MG TABLET PO SCH (06:30)
[2017-05-06] MEDS: Insulin LISPRO 300 UNITS/3 ML VIAL SQ SCH ×7 (07:25→21:02)
[2017-05-06] MEDS ORDERED: Ipratropium/Albuterol Neb 3 ML IH PRN (08:01)
[2017-05-06] MEDS: Insulin DETEMIR 100 UNIT/ML X5UNITS SQ SCH ×2 (10:09→21:26)
[2017-05-06] MEDS: Pantoprazole 40 MG VIAL IVP SCH ×2 (10:16→21:35)
[2017-05-06] MEDS: Furosemide 40 MG/4 ML VIAL IVP SCH ×2 (10:16→17:05)
[2017-05-06] MEDS: Metoprolol XL (24 HR) Succ 50 MG TAB.ER.24H PO SCH (10:16)
[2017-05-06] MEDS: Diltiazem SR (12hr) 90 MG CAPSULE PO SCH ×2 (10:18→21:34)
[2017-05-06] MEDS: *HR* Amiodarone 200 MG TABLET PO SCH (10:18)
--- NOTE | 2017-05-06 12:08 | Gastroenterology Consult Note ---
<Jarad Guerrero - Last Filed: 05/06/17 12:06> Date of Encounter: 05/06/17 Time of Encounter: 10:35 - Assessment and plan (1) Anemia Current Visit: No Status: Chronic Assessment and plan: Hgb on admission was 7.7, which dropped to 6.8 yesterday, and has recived a total of 4 units PRBC since 05/01. Hgb this AM 7.4. Continue to monitor CBC and transfuse PRBC as needed. Recently completed a colonoscopy on 04/28/2017 with no source of bleeding noted. We will plan for EGD today to r/o esophagitis, gastritis, duodenitis, PUD, MW tear, or AVM. Keep NPO. Qualifiers: Anemia type: unspecified type Qualified Code(s): D64.9 - Anemia, unspecified (2) GI bleed Current Visit: No Status: Suspected Assessment and plan: As above Qualifiers: GI bleed type/associated pathology: unspecified gastrointestinal hemorrhage type Qualified Code(s): K92.2 - Gastrointestinal hemorrhage, unspecified (3) Cirrhosis Current Visit: Yes Status: Acute Assessment and plan: Liver ultrasound shows mild cirrhosis. Hepatitis profile negative, AFP normal. The one antitrypsin slightly elevated at 217. AMA elevated to 56.3 and F actin elevated at 29. Will have patient follow up as outpatient in 2-3 weeks. Qualifiers: Hepatic cirrhosis type: unspecified hepatic cirrhosis Ascites presence: with ascites Qualified Code(s): K74.60 - Unspecified cirrhosis of liver (4) Congestive heart failure Current Visit: Yes Status: Acute Assessment and plan: Management per primary team. Qualifiers: Congestive heart failure type: systolic Congestive heart failure chronicity : acute on chronic Qualified Code(s): I50.23 - Acute on chronic systolic ( congestive) heart failure (5) COPD (chronic obstructive pulmonary disease) Current Visit: No Status: Chronic Assessment and plan: Management per primary team. Qualifiers: COPD type: unspecified COPD Qualified Code(s): J44.9 - Chronic obstructive pulmonary disease, unspecified - Time Spent With Patient Total time spent is greater than 50% in coordination of care (as documented) at patient's floor/unit and/or counseling patient: GI History of Present Illness - Data of Consult Patient: known to practice within the last 3 years Consult date: 05/06/17 Requesting Physician: George Kiser MD - Consult Narrative Reason for consult: GI Bleed History of present illness: Mr. Diaz is a 71 year old male with PMHx of Afib s/p pacemaker insertion, ESTEPHANIA, CHF, COPD, DM, HLD, and HTN who presented to the hospital with testicular swelling and shortness of breath. Scrotal edema likely secondary to overall anasarca and fluid overload. We were consulted for possible GI bleed. Hgb on admission was 7.7, which dropped to 6.8 yesterday, and has recived a total of 4 units PRBC since 05/01. Hgb this AM 7.4. Procedures: Colonoscopy 04/28/2017 Dr. Woodard: 12 mm polyp cecum, 3 hyperplastic polyps in the sigmoid, one 10 mm hyperplastic polyp descending colon Colonoscopy 01/27/2017 Dr. Woodard: with multiple colon polyps ranging up to 12 mm size including sessile serrated adenoma, tubulovillous adenoma, and hyperplastic polyps with recommendation to repeat colonoscopy in 3-6 months with 2 day prep. EGD 01/27/2017 Dr. Woodard: With one tongue of salmon mucosa in esophagus NSAIDs: ASA Anticoagulation: Xarelto Past Med Surg Social Fam HX - Past Medical History Medical history: arthritis, atrial fibrillation, CHF, COPD, diabetes, hyperlipidemia, hypertension Psychiatric history: no psych history - Past Surgical History Surgical History: orthopedic, other, pacemaker/AICD - Social History Smoking Status: Former smoker Smokeless Tobacco Status: No Alcohol use: none Drug use: marijuana - Family History Father Hx Family Cardiac Disorders: Yes (Quadruple Bypass) Mother Family Member Ethnicity: Non- Living Status: - Gastrointestinal Gastrointestinal: Present: as per HPI - Constitutional Constitutional: as per HPI - EENT Eyes: as per HPI Ears: Present: as per HPI Nose, mouth and throat: Present: as per HPI - Cardiovascular Cardiovascular ROS: Present: as per HPI - Respiratory Respiratory IM: Present: as per HPI - Genitourinary Genitourinary: Absent: change in color, Urinary frequency - Neurological ROS Neurological GI: Present: as per HPI - Hematologic/Lymphatic Hematologic/Lymphatic pediatric: Present: as per HPI - Musculoskeletal Musculoskeletal ROS GI: Present: as per HPI - Integumentary Integumentary GI: Present: as per HPI - Psychiatric ROS Psychiatric GI: Present: as per HPI - Endocrine Endocrine IM: Present: as per HPI - Constitutional Vitals: Temp Pulse Resp BP Pulse Ox 98.3 F 86 14 113/69 97 05/06/17 11:59 05/06/17 11:59 05/06/17 11:59 05/06/17 11:59 05/06/17 11:59 General appearance: Present: cooperative, A&O X 3, no acute distress, answers questions appropriately - Head Head exam: Present: atraumatic, normocephalic - Eye Eye exam: Present: normal appearance, sclera anicteric - ENT ENT exam: Present: mucous membranes dry - Neck Neck exam general surgery: Present: normal inspection, trachea midline - Respiratory Respiratory exam: Present: decreased breath sounds, CTAB. Absent: rales, rhonchi Additional comments: on BiPAP. - Cardiovascular Cardiovascular exam: Present: RRR, +S1, +S2 - GI/Abdominal GI/Abdominal exam: Present: soft, no peritoneal signs. Absent: distended, firm , guarding, tenderness Additional comments: Obese - Rectal Rectal exam: Present: deferred - Extremities Exam Extremities exam: Present: pedal edema, warm - Neurological Exam Neurological exam: Present: no focal deficits - Psychiatric Psychiatric exam: Present: normal affect, normal mood - Skin Skin exam: Present: dry, intact, normal color, warm Results - Labs CBC & Chem 7: 05/06/17 01:04 05/06/17 01:04 Labs: Last Result Calcium 8.5 mg/dL (8.6-10.8) L 05/06/17 01:04 Iron 40 mcg/dL (65-175) L 05/05/17 09:19 % Saturation 10 % (20-55) L 05/05/17 09:19 Transferrin 298 mg/dL (174-364) 05/05/17 09:19 Troponin I 0.01 ng/mL (0-0.03) 05/01/17 08:49 Vitamin B12 340 pg/mL (213-816) 05/05/17 09:19 Folate 5.6 ng/mL (7.0-31.4) L 05/05/17 09:19 Entire Visit Hgb 7.4 g/dL (12.9-16.9) L 05/06/17 01:04 Hct 23.5 % (37.5-50.1) L 05/06/17 01:04 Total Bilirubin 0.5 mg/dL (0.2-1.2) 05/06/17 01:04 AST 16 Units/L (5-34) 05/06/17 01:04 ALT 22 Units/L (0-55) 05/06/17 01:04 Folate 5.6 ng/mL (7.0-31.4) L 05/05/17 09:19 - ABG ABG results: ABG ABG pH 7.46 pH Units (7.32-7.45) H 04/30/17 20:57 ABG pCO2 44 mmHg (35-45) 04/30/17 20:57 ABG pO2 133 mmHg (85-104) H 04/30/17 20:57 ABG O2 Saturation 99 % (95-98) H 04/30/17 20:57 Consult Discharge Plan - Plan Referrals: Damian Seymour MD [Primary Care Provider] - <Getachew Singer - Last Filed: 05/07/17 14:51> Date of Encounter: 05/06/17 Time of Encounter: 14:35 - Time Spent With Patient Total time spent is greater than 50% in coordination of care (as documented) at patient's floor/unit and/or counseling patient: 25 - 35 minutes (Mr Diaz had a significant drop in hemoglobin in a setting of anemia with multiple medical problems enlisted above. No chest pain but, has shortness of breath. Morbidly obese individual. He had a colonoscopy here recently so will plan an EGD. Discussed risks and benefits. He agreed and signed an informed consent.) GI History of Present Illness - Data of Consult Requesting Physician: George Kiser MD - Consult Narrative History of present illness: Mr. Diaz is a 71 year old male - Constitutional Vitals: Temp Pulse Resp BP Pulse Ox 97.4 F L 105 17 91/77 97 05/07/17 11:53 05/07/17 11:53 05/07/17 11:53 05/07/17 11:53 05/07/17 11:53 Results - Labs CBC & Chem 7: 05/07/17 03:53 05/07/17 06:11 Labs: Last Result Calcium 9.0 mg/dL (8.6-10.8) 05/07/17 06:11 Iron 40 mcg/dL (65-175) L 05/05/17 09:19 % Saturation 10 % (20-55) L 05/05/17 09:19 Transferrin 298 mg/dL (174-364) 05/05/17 09:19 Troponin I 0.01 ng/mL (0-0.03) 05/01/17 08:49 Vitamin B12 340 pg/mL (213-816) 05/05/17 09:19 Folate 5.6 ng/mL (7.0-31.4) L 05/05/17 09:19 Entire Visit Hgb 7.1 g/dL (12.9-16.9) L 05/07/17 03:53 Hct 23.1 % (37.5-50.1) L 05/07/17 03:53 Total Bilirubin 0.5 mg/dL (0.2-1.2) 05/07/17 06:11 AST 17 Units/L (5-34) 05/07/17 06:11 ALT 19 Units/L (0-55) 05/07/17 06:11 Folate 5.6 ng/mL (7.0-31.4) L 05/05/17 09:19 - ABG ABG results: ABG ABG pH 7.46 pH Units (7.32-7.45) H 04/30/17 20:57 ABG pCO2 44 mmHg (35-45) 04/30/17 20:57 ABG pO2 133 mmHg (85-104) H 04/30/17 20:57 ABG O2 Saturation 99 % (95-98) H 04/30/17 20:57
[2017-05-06] MEDS ORDERED: Simethicone 40 MG/0.6 ML MLS IR ONE (13:30)
[2017-05-06] MEDS ORDERED: *HR* Midazolam HCl 5 MG/5 ML VIAL IVP PRN (13:30)
[2017-05-06] MEDS ORDERED: Tetracaine/Benzocaine/Butamben 200MG/SPRAY (100SPY/BOT) MM ONE (13:30)
--- NOTE | 2017-05-06 15:53 | Internal Med Progress Note ---
Date of Encounter: 05/06/17 Time of Encounter: 12:00 - Assessment and plan (1) Congestive heart failure Current Visit: Yes Status: Acute Assessment and plan: Preserved ejection fraction on the echocardiogram. Diastolic dysfunction. Suspected cor pulmonale as the patient has dilated right ventricle. Continue aggressive diuresis. Replace potassium. The patient is high risk due to her carotid abnormalities and risk of lethal arrhythmias. Fluid restriction. Salt restriction. Daily weights. Strict input and output monitoring. Qualifiers: Congestive heart failure type: diastolic Congestive heart failure chronicity: acute on chronic Qualified Code(s): I50.33 - Acute on chronic diastolic (congestive) heart failure (2) Cirrhosis Current Visit: Yes Status: Chronic Assessment and plan: GI has evaluated the patient. Outpatient follow-up with GI in 3-4 weeks for the same. 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 Qualifiers: Hepatic cirrhosis type: other cirrhosis Qualified Code(s): K74.69 - Other cirrhosis of liver (3) GI bleed Current Visit: Yes Status: Acute Assessment and plan: GI on board. Patient going to endoscopy today. We will follow-up on the results of endoscopy. Qualifiers: GI bleed type/associated pathology: melena Qualified Code(s): K92.1 - Melena (4) Afib Current Visit: Yes Status: Chronic Assessment and plan: Rate controlled. Continue current medications. Hold anticoagulation due to suspected bleeding. Qualifiers: Atrial fibrillation type: paroxysmal Qualified Code(s): I48.0 - Paroxysmal atrial fibrillation (5) Essential hypertension Current Visit: Yes Status: Chronic Assessment and plan: Controlled blood pressure. Continue current medications. (6) Sleep apnea with use of continuous positive airway pressure (CPAP) Current Visit: Yes Status: Chronic Assessment and plan: Use Pap therapy whenever he is sleeping. (7) Type 2 diabetes mellitus Current Visit: Yes Status: Chronic Assessment and plan: Controlled blood sugars. Continue current dose of his insulin regimen. Diabetic diet. 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 (9) Morbid obesity with BMI of 40.0-44.9, adult Current Visit: No Status: Chronic - Subjective Interval history: Patient is scheduled for endoscopy today by GI for evaluating the cause of his anemia. He states that his swelling is better. He states that his breathing is better when he wears a BiPAP. - Constitutional Vitals: Temp Pulse Resp BP Pulse Ox 98.3 F 78 17 114/64 97 05/06/17 11:59 05/06/17 14:00 05/06/17 14:00 05/06/17 14:00 05/06/17 11:59 General appearance: Present: A&O X 3 Exam: Gen.: Lying in bed. No acute distress. Chest: Clear to auscultation bilaterally. No adventitious sounds present. CVS: First and second heart sounds present. No murmurs, rubs or gallops. Abdomen: Soft, nontender, obese. Bowel sounds present. No hepatosplenomegaly. Distended scrotum. Patton catheter in place. Skin: No decubitus ulcers appreciated. Internal Medicine: Result - Labs CBC & Chem 7: 05/06/17 01:04 05/06/17 01:04 Labs: Short CBC 05/06/17 Range/Units 01:04 WBC 9.3 (4.3-11.1) K/mcL Hgb 7.4 L (12.9-16.9) g/dL Hct 23.5 L (37.5-50.1) % Plt Count 336 (140-400) K/mcL Neutrophils # 7.0 (1.6-8.9) K/mcL BMP 05/06/17 01:04 Sodium 139 Potassium 3.1 L Chloride 90 L Carbon Dioxide 39 H BUN 63 H Creatinine 1.25 Glucose 123 H Calcium 8.5 L Liver Function 05/06/17 Range/Units 01:04 Total Bilirubin 0.5 (0.2-1.2) mg/dL AST 16 (5-34) Units/L ALT 22 (0-55) Units/L Alkaline Phosphatase 113 (38-126) Units/L Albumin 2.4 L (3.5-5.0) g/dL - ABG Interpretation ABG results: ABG ABG pH 7.46 pH Units (7.32-7.45) H 04/30/17 20:57 ABG pCO2 44 mmHg (35-45) 04/30/17 20:57 ABG pO2 133 mmHg (85-104) H 04/30/17 20:57 ABG O2 Saturation 99 % (95-98) H 04/30/17 20:57 Consult Discharge Plan - Plan Referrals: Damian Seymour MD [Primary Care Provider] -
[2017-05-06] MEDS ORDERED: *HR* Midazolam HCl 5 MG/5 ML VIAL IVP ONE (17:29)
[2017-05-06] MEDS ORDERED: *HR* FentaNYL (PF) 100 MCG/2 ML VIAL ONE (17:30)
[2017-05-06] MEDS ORDERED: 0.9 % Sodium Chloride 500 ML IVC SCH (18:15)
[2017-05-07 04:37] LABS: Basophils # 0.1 K/mcL (0.0-0.2); Basophils % 0.7 %; Eosinophils # 0.2 K/mcL (0.0-0.6); Eosinophils % 2.7 %; Hematocrit 23.1 % (37.5-50.1); Hemoglobin 7.1 g/dL (12.9-16.9); Immature Granulocytes % 0.3 % (0-4); Lymphocytes # 0.6 K/mcL (0.6-4.6); Lymphocytes % 6.9 %; Mean Corpuscular HGB Conc 30.7 g/dL (31.6-35.5); Mean Corpuscular Hemoglobin 27.6 pg (28.0-33.3); Mean Corpuscular Volume 89.9 fL (83.0-100.0); Mean Platelet Volume 9.7 fL (9.4-12.4); Monocytes # 1.1 K/mcL (0.0-1.3); Monocytes % 12.4 %; Neutrophils # 6.8 K/mcL (1.6-8.9); Platelet Count 336 K/mcL (140-400); Red Blood Count 2.57 M/mcL (4.19-5.50); Red Cell Distribution Width 16.8 % (11.5-14.5)
[2017-05-07 07:39] LABS: Alanine Aminotransferase 19 Units/L (0-55); Albumin 2.5 g/dL (3.5-5.0); Albumin/Globulin Ratio 0.7 (1.1-2.2); Alkaline Phosphatase 116 Units/L (38-126); Aspartate Amino Transferase 17 Units/L (5-34); BUN/Creatinine Ratio 42 (6-26); Bilirubin,Total 0.5 mg/dL (0.2-1.2); Blood Urea Nitrogen 56 mg/dL (8-26); Chloride 87 mEq/L (98-109); Globulin 3.6 g/dL (2.4-3.5); Glucose 152 mg/dL (70-99); Osmolality,Calculated 306 (280-300); Potassium 3.4 mEq/L (3.5-4.5); Sodium 139 mEq/L (136-145); Total Protein 6.1 g/dL (6.0-8.3); eGFR For African Americans > 60 (> 60); eGFR For Non-African Americans 53 (> 60)
[2017-05-07 07:47] LABS: Carbon Dioxide 43 mEq/L (19-29)
[2017-05-07] MEDS: Insulin LISPRO 300 UNITS/3 ML VIAL SQ SCH ×7 (10:34→22:16)
[2017-05-07] MEDS: *HR* Amiodarone 200 MG TABLET PO SCH (10:41)
[2017-05-07] MEDS: Diltiazem SR (12hr) 90 MG CAPSULE PO SCH ×2 (10:41→22:16)
[2017-05-07] MEDS: Insulin DETEMIR 100 UNIT/ML X5UNITS SQ SCH ×2 (10:41→22:16)
[2017-05-07] MEDS: Metoprolol XL (24 HR) Succ 50 MG TAB.ER.24H PO SCH (10:41)
--- NOTE | 2017-05-07 12:41 | Internal Med Progress Note ---
Date of Encounter: 05/07/17 Time of Encounter: 12:38 - Assessment and plan (1) Congestive heart failure Current Visit: Yes Status: Acute Assessment and plan: Suspected cor pulmonale as the patient has dilated right ventricle. Discontinue diuresis as he appears to have low blood pressure and is starting to sustain mild kidney injury. Replace potassium. The patient is high risk due to his electrolyte abnormalities and risk of lethal arrhythmias. Fluid restriction. Salt restriction. Daily weights. Strict input and output monitoring. Qualifiers: Congestive heart failure type: diastolic Congestive heart failure chronicity: acute on chronic Qualified Code(s): I50.33 - Acute on chronic diastolic (congestive) heart failure (2) Cirrhosis Current Visit: Yes Status: Chronic Assessment and plan: GI has evaluated the patient. Outpatient follow-up with GI in 3-4 weeks for the same. 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 Qualifiers: Hepatic cirrhosis type: other cirrhosis Qualified Code(s): K74.69 - Other cirrhosis of liver (3) GI bleed Current Visit: Yes Status: Acute Assessment and plan: Status post-endoscopy which revealed esophageal ulcers and gastritis. Continue proton pump inhibitor. Change to by mouth route. Qualifiers: GI bleed type/associated pathology: melena Qualified Code(s): K92.1 - Melena (4) Afib Current Visit: Yes Status: Chronic Assessment and plan: Rate controlled. Continue current medications. Continue to hold anticoagulation due to esophageal ulcers and gastritis. Qualifiers: Atrial fibrillation type: paroxysmal Qualified Code(s): I48.0 - Paroxysmal atrial fibrillation (5) Essential hypertension Current Visit: Yes Status: Chronic Assessment and plan: Borderline low blood pressure. Discontinue diuretics. (6) Sleep apnea with use of continuous positive airway pressure (CPAP) Current Visit: Yes Status: Chronic Assessment and plan: Continue Pap therapy (7) Type 2 diabetes mellitus Current Visit: Yes Status: Chronic Assessment and plan: Stable. Continue current dose of his insulin regimen. Diabetic diet. Qualifiers: Diabetes mellitus complication status: with kidney complications Diabetes mellitus complication detail: with chronic kidney disease Diabetes mellitus retirement insulin use: with retirement use Chronic kidney disease stage: stage 3 (moderate) Qualified Code(s): E11.22 - Type 2 diabetes mellitus with diabetic chronic kidney disease; N18.3 - Chronic kidney disease, stage 3 ( moderate); Z79.4 - watermaster (current) use of insulin (8) Hypokalemia Current Visit: Yes Status: Acute Assessment and plan: Continue by mouth replacement. (9) Morbid obesity with BMI of 40.0-44.9, adult Current Visit: No Status: Chronic (10) Anemia Current Visit: Yes Status: Acute Assessment and plan: Due to GI bleeding. Status post PRBC transfusion. Continue to monitor hemoglobin and hematocrit. Hold anticoagulation. Qualifiers: Anemia type: other cause Other causes of anemia: acute posthemorrhagic Qualified Code(s): D62 - Acute posthemorrhagic anemia - Subjective Interval history: Pt. underwent endoscopy yesterday. Today, he states that his swelling is much better. No N/V/D/C. States that his breathing is good too. - Constitutional Vitals: Temp Pulse Resp BP Pulse Ox 97.4 F L 105 17 91/77 97 05/07/17 11:53 05/07/17 11:53 05/07/17 11:53 05/07/17 11:53 05/07/17 11:53 Exam: Gen.: Lying in bed. No acute distress. Chest: Clear to auscultation bilaterally. No adventitious sounds present. CVS: First and second heart sounds present. No murmurs, rubs or gallops. Abdomen: Soft, nontender, obese. Bowel sounds present. No hepatosplenomegaly. Scrotal edema much reduced. Patton in place. Skin: No decubitus ulcers appreciated. Internal Medicine: Result - Labs CBC & Chem 7: 05/07/17 03:53 05/07/17 06:11 Labs: Short CBC 05/07/17 Range/Units 03:53 WBC 8.8 (4.3-11.1) K/mcL Hgb 7.1 L (12.9-16.9) g/dL Hct 23.1 L (37.5-50.1) % Plt Count 336 (140-400) K/mcL Neutrophils # 6.8 (1.6-8.9) K/mcL BMP 05/07/17 06:11 Sodium 139 Potassium 3.4 L Chloride 87 L Carbon Dioxide 43 H* BUN 56 H Creatinine 1.32 H Glucose 152 H Calcium 9.0 Liver Function 05/07/17 Range/Units 06:11 Total Bilirubin 0.5 (0.2-1.2) mg/dL AST 17 (5-34) Units/L ALT 19 (0-55) Units/L Alkaline Phosphatase 116 (38-126) Units/L Albumin 2.5 L (3.5-5.0) g/dL - ABG Interpretation ABG results: ABG ABG pH 7.46 pH Units (7.32-7.45) H 04/30/17 20:57 ABG pCO2 44 mmHg (35-45) 04/30/17 20:57 ABG pO2 133 mmHg (85-104) H 04/30/17 20:57 ABG O2 Saturation 99 % (95-98) H 04/30/17 20:57 Consult Discharge Plan - Plan Referrals: Damian Seymour MD [Primary Care Provider] -
[2017-05-08 04:08] LABS: Basophils # 0.1 K/mcL (0.0-0.2); Basophils % 0.7 %; Eosinophils # 0.3 K/mcL (0.0-0.6); Eosinophils % 3.9 %; Hematocrit 22.7 % (37.5-50.1); Immature Granulocytes % 0.2 % (0-4); Lymphocytes # 0.7 K/mcL (0.6-4.6); Lymphocytes % 8.4 %; Mean Corpuscular HGB Conc 30.8 g/dL (31.6-35.5); Mean Corpuscular Hemoglobin 27.6 pg (28.0-33.3); Mean Corpuscular Volume 89.4 fL (83.0-100.0); Mean Platelet Volume 9.9 fL (9.4-12.4); Monocytes # 1.3 K/mcL (0.0-1.3); Monocytes % 15.9 %; Platelet Count 355 K/mcL (140-400); Red Blood Count 2.54 M/mcL (4.19-5.50); Red Cell Distribution Width 16.6 % (11.5-14.5); Segmented Neutrophils % 70.9 %
[2017-05-08 04:19] LABS: Calcium 8.7 mg/dL (8.6-10.8); Potassium 2.9 mEq/L (3.5-4.5)
[2017-05-08] MEDS ORDERED: 0.9 % Sodium Chloride 1,000 ML IVC SCH (07:45)
[2017-05-08] MEDS: Insulin LISPRO 300 UNITS/3 ML VIAL SQ SCH ×7 (09:17→21:11)
[2017-05-08] MEDS: Insulin DETEMIR 100 UNIT/ML X5UNITS SQ SCH ×2 (09:31→21:10)
[2017-05-08] MEDS: *HR* Amiodarone 200 MG TABLET PO SCH (09:31)
[2017-05-08] MEDS: Potassium Chloride Elixir 20 MEQ/15 ML UDC PO SCH ×2 (09:31→21:10)
[2017-05-08] MEDS: Diltiazem SR (12hr) 90 MG CAPSULE PO SCH ×2 (09:31→21:10)
[2017-05-08] MEDS: Metoprolol XL (24 HR) Succ 50 MG TAB.ER.24H PO SCH (09:32)
--- NOTE | 2017-05-08 12:22 | Internal Med Progress Note ---
Date of Encounter: 05/08/17 Time of Encounter: 08:15 - Assessment and plan (1) Congestive heart failure Current Visit: Yes Status: Acute Assessment and plan: Continue to hold diuretics. Gentle hydration due to his acute kidney injury. The patient is high risk due to his electrolyte abnormalities and risk of lethal arrhythmias. Daily weights. Strict input and output monitoring. Qualifiers: Congestive heart failure type: diastolic Congestive heart failure chronicity: acute on chronic Qualified Code(s): I50.33 - Acute on chronic diastolic (congestive) heart failure (2) Cirrhosis Current Visit: Yes Status: Chronic Assessment and plan: Outpatient follow-up with GI in 3-4 weeks. Qualifiers: Hepatic cirrhosis type: other cirrhosis Qualified Code(s): K74.69 - Other cirrhosis of liver (3) GI bleed Current Visit: Yes Status: Acute Assessment and plan: Debora Capito revealed esophageal ulcers and gastritis. Continue proton pump inhibitor. Qualifiers: GI bleed type/associated pathology: melena Qualified Code(s): K92.1 - Melena (4) Afib Current Visit: Yes Status: Chronic Assessment and plan: Rate controlled. Continue to hold anticoagulation due to esophageal ulcers and gastritis. Qualifiers: Atrial fibrillation type: paroxysmal Qualified Code(s): I48.0 - Paroxysmal atrial fibrillation (5) Essential hypertension Current Visit: Yes Status: Chronic Assessment and plan: Continue to hold diuretics. Monitor blood pressure closely. (6) Sleep apnea with use of continuous positive airway pressure (CPAP) Current Visit: Yes Status: Chronic Assessment and plan: Continue Pap therapy (7) Type 2 diabetes mellitus Current Visit: Yes Status: Chronic Assessment and plan: Stable. Continue current dose of his insulin regimen. Diabetic diet. Qualifiers: Diabetes mellitus complication status: with kidney complications Diabetes mellitus complication detail: with chronic kidney disease Diabetes mellitus shelter insulin use: with shelter use Chronic kidney disease stage: stage 3 (moderate) Qualified Code(s): E11.22 - Type 2 diabetes mellitus with diabetic chronic kidney disease; N18.3 - Chronic kidney disease, stage 3 ( moderate); Z79.4 - assisted (current) use of insulin (8) Hypokalemia Current Visit: Yes Status: Acute Assessment and plan: Replace by mouth (9) Morbid obesity with BMI of 40.0-44.9, adult Current Visit: No Status: Chronic (10) Anemia Current Visit: Yes Status: Acute Assessment and plan: Due to GI bleeding. Status post PRBC transfusion. Continue to hold anticoagulation. Transfuse 2 more units of packed red blood cells due to drop in hemoglobin to 7. Continue to monitor hemoglobin and hematocrit. Qualifiers: Anemia type: other cause Other causes of anemia: acute posthemorrhagic Qualified Code(s): D62 - Acute posthemorrhagic anemia (11) ARF (acute renal failure) Current Visit: Yes Status: Acute Assessment and plan: Likely due to over diuresis. Hold diuretics. Avoid hypotension and nephrotoxic medications. Blood transfusion today. Gentle hydration. Qualifiers: Acute renal failure type: with other specified pathological lesion Qualified Code(s): N17.8 - Other acute kidney failure - Subjective Interval history: Patient states that he feels well. He states that his breathing is better. He also reports that the swelling in his legs are better. - Constitutional Vitals: Temp Pulse Resp BP Pulse Ox 97.7 F 50 16 102/44 82 05/08/17 07:02 05/08/17 07:02 05/08/17 07:02 05/08/17 07:02 05/08/17 07:02 General appearance: Present: A&O X 3 Exam: Gen.: Lying in bed. No acute distress. Chest: Clear to auscultation bilaterally. No adventitious sounds present. CVS: First and second heart sounds present. No murmurs, rubs or gallops. Abdomen: Soft, nontender, nondistended. Bowel sounds present. Scrotal edema. Patton catheter in place. Internal Medicine: Result - Labs CBC & Chem 7: 05/08/17 02:59 05/08/17 02:59 Labs: Short CBC 05/08/17 Range/Units 02:59 WBC 8.4 (4.3-11.1) K/mcL Hgb 7.0 L (12.9-16.9) g/dL Hct 22.7 L (37.5-50.1) % Plt Count 355 (140-400) K/mcL Neutrophils # 6.0 (1.6-8.9) K/mcL BMP 05/08/17 02:59 Sodium 135 L Potassium 2.9 L Chloride 87 L Carbon Dioxide 37 H BUN 56 H Creatinine 1.64 H Glucose 80 Calcium 8.7 - ABG Interpretation ABG results: ABG ABG pH 7.46 pH Units (7.32-7.45) H 04/30/17 20:57 ABG pCO2 44 mmHg (35-45) 04/30/17 20:57 ABG pO2 133 mmHg (85-104) H 04/30/17 20:57 ABG O2 Saturation 99 % (95-98) H 04/30/17 20:57 Consult Discharge Plan - Plan Referrals: Damian Seymour MD [Primary Care Provider] -
[2017-05-08] MEDS ORDERED: 0.9 % Sodium Chloride 250 ML ONE (15:59)
[2017-05-09 04:07] LABS: Basophils # 0.1 K/mcL (0.0-0.2); Basophils % 0.6 %; Eosinophils # 0.3 K/mcL (0.0-0.6); Eosinophils % 3.3 %; Hematocrit 27.8 % (37.5-50.1); Hemoglobin 8.6 g/dL (12.9-16.9); Immature Granulocytes % 0.5 % (0-4); Lymphocytes # 0.6 K/mcL (0.6-4.6); Mean Corpuscular HGB Conc 30.9 g/dL (31.6-35.5); Mean Corpuscular Hemoglobin 27.7 pg (28.0-33.3); Mean Corpuscular Volume 89.7 fL (83.0-100.0); Monocytes # 1.2 K/mcL (0.0-1.3); Neutrophils # 6.1 K/mcL (1.6-8.9); Platelet Count 362 K/mcL (140-400); Red Cell Distribution Width 16.3 % (11.5-14.5); Segmented Neutrophils % 74.6 %
[2017-05-09 04:21] LABS: BUN/Creatinine Ratio 34 (6-26); Calcium 8.8 mg/dL (8.6-10.8); Carbon Dioxide 35 mEq/L (19-29); Chloride 94 mEq/L (98-109); Glucose 101 mg/dL (70-99); Osmolality,Calculated 296 (280-300); Potassium 2.9 mEq/L (3.5-4.5); Sodium 138 mEq/L (136-145); eGFR For African Americans > 60 (> 60); eGFR For Non-African Americans 59 (> 60)
[2017-05-09 04:22] LABS: Blood Urea Nitrogen 41 mg/dL (8-26)
[2017-05-09 06:31] LABS: Magnesium 2.5 mg/dL (1.6-2.6)
[2017-05-09] MEDS: *HR* Amiodarone 200 MG TABLET PO SCH (09:28)
[2017-05-09] MEDS: Diltiazem SR (12hr) 90 MG CAPSULE PO SCH ×2 (09:28→22:26)
[2017-05-09] MEDS: Potassium Chloride Elixir 20 MEQ/15 ML UDC PO SCH (09:28)
[2017-05-09] MEDS: Insulin DETEMIR 100 UNIT/ML X5UNITS SQ SCH (09:29)
[2017-05-09] MEDS: Metoprolol XL (24 HR) Succ 50 MG TAB.ER.24H PO SCH (09:29)
[2017-05-09] MEDS: Insulin LISPRO 300 UNITS/3 ML VIAL SQ SCH ×5 (09:30→22:26)
[2017-05-09 12:45] LABS: Basophils # 0.1 K/mcL (0.0-0.2); Basophils % 0.6 %; Eosinophils # 0.3 K/mcL (0.0-0.6); Eosinophils % 3.4 %; Hemoglobin 8.8 g/dL (12.9-16.9); Immature Granulocytes % 0.5 % (0-4); Lymphocytes # 0.7 K/mcL (0.6-4.6); Lymphocytes % 7.4 %; Mean Corpuscular HGB Conc 30.3 g/dL (31.6-35.5); Mean Corpuscular Hemoglobin 27.9 pg (28.0-33.3); Mean Corpuscular Volume 92.1 fL (83.0-100.0); Mean Platelet Volume 9.4 fL (9.4-12.4); Monocytes # 1.3 K/mcL (0.0-1.3); Monocytes % 14.4 %; Neutrophils # 6.5 K/mcL (1.6-8.9); Platelet Count 375 K/mcL (140-400); Red Blood Count 3.15 M/mcL (4.19-5.50); Segmented Neutrophils % 73.7 %
--- NOTE | 2017-05-09 13:38 | Internal Med Progress Note ---
Date of Encounter: 05/09/17 Time of Encounter: 10:50 - Assessment and plan (1) Congestive heart failure Current Visit: Yes Status: Acute Assessment and plan: Patient is at his lowest weight which is likely his dry weight currently of 133 kg. Continue to hold diuretics. He received 2 units of packed blood cells yesterday. The patient is high risk due to his electrolyte abnormalities and risk of lethal arrhythmias. He also had a hypoglycemic episode this morning and received his basal insulin today. He needs to be monitored for further episodes of hypoglycemia. Daily weights. Strict input and output monitoring. Qualifiers: Congestive heart failure type: diastolic Congestive heart failure chronicity: acute on chronic Qualified Code(s): I50.33 - Acute on chronic diastolic (congestive) heart failure (2) Cirrhosis Current Visit: Yes Status: Chronic Assessment and plan: Outpatient follow-up with GI in 3-4 weeks. Qualifiers: Hepatic cirrhosis type: other cirrhosis Qualified Code(s): K74.69 - Other cirrhosis of liver (3) GI bleed Current Visit: Yes Status: Acute Assessment and plan: Endoscopy revealed esophageal ulcers and gastritis. Continue proton pump inhibitor. Status post transfusion. Monitor for further episodes of GI bleed. Hold anticoagulation. Qualifiers: GI bleed type/associated pathology: melena Qualified Code(s): K92.1 - Melena (4) Afib Current Visit: Yes Status: Chronic Assessment and plan: Rate controlled. Continue to hold anticoagulation due to esophageal ulcers and gastritis. Qualifiers: Atrial fibrillation type: paroxysmal Qualified Code(s): I48.0 - Paroxysmal atrial fibrillation (5) Essential hypertension Current Visit: Yes Status: Chronic Assessment and plan: Borderline low blood pressure. Continue to hold blood pressure medications except rate controller medications. (6) Sleep apnea with use of continuous positive airway pressure (CPAP) Current Visit: Yes Status: Chronic Assessment and plan: Continue Pap therapy (7) Type 2 diabetes mellitus Current Visit: Yes Status: Chronic Assessment and plan: Borderline hypoglycemia. Discontinue basal and pre-meal insulins. Monitor blood sugars and resume gradually. 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 Status post PRBC transfusion. Continue to hold anticoagulation. Bhavana to monitor hemoglobin and hematocrit. Qualifiers: Anemia type: other cause Other causes of anemia: acute posthemorrhagic Qualified Code(s): D62 - Acute posthemorrhagic anemia (11) ARF (acute renal failure) Current Visit: Yes Status: Acute Qualifiers: Acute renal failure type: with other specified pathological lesion Qualified Code(s): N17.8 - Other acute kidney failure - Subjective Interval history: This morning, patient stated that he was feeling lightheaded with a heavy head. He denied any headache, abdominal pain. He did report nausea. He denied any palpitations. Denied any chest pain or short of breath. - Constitutional Vitals: Temp Pulse Resp BP Pulse Ox 98.5 F 81 18 97/80 94 05/09/17 10:56 05/09/17 10:56 05/09/17 10:56 05/09/17 10:56 05/09/17 10:56 Exam: Gen.: Lying in bed. Mild to moderate distress. Chest: Clear to auscultation bilaterally. No adventitious sounds present. CVS: First and second heart sounds present. No murmurs, rubs or gallops. Abdomen: Soft, nontender, obese. Bowel sounds present. Eldred scrotum with a Patton catheter in place Skin: No decubitus ulcers appreciated. Internal Medicine: Result - Labs CBC & Chem 7: 05/09/17 12:24 05/09/17 03:41 Labs: Short CBC 05/09/17 05/09/17 Range/Units 03:41 12:24 WBC 8.2 8.8 (4.3-11.1) K/mcL Hgb 8.6 L D 8.8 L (12.9-16.9) g/dL Hct 27.8 L 29.0 L (37.5-50.1) % Plt Count 362 375 (140-400) K/mcL Neutrophils # 6.1 6.5 (1.6-8.9) K/mcL BMP 05/09/17 03:41 Sodium 138 Potassium 2.9 L Chloride 94 L Carbon Dioxide 35 H BUN 41 H D Creatinine 1.21 Glucose 101 H Calcium 8.8 - ABG Interpretation ABG results: ABG ABG pH 7.46 pH Units (7.32-7.45) H 04/30/17 20:57 ABG pCO2 44 mmHg (35-45) 04/30/17 20:57 ABG pO2 133 mmHg (85-104) H 04/30/17 20:57 ABG O2 Saturation 99 % (95-98) H 04/30/17 20:57 Consult Discharge Plan - Plan Referrals: Damian Seymour MD [Primary Care Provider] -
[2017-05-09 16:23] LABS: Hematocrit 28.9 % (37.5-50.1); Hemoglobin 9.1 g/dL (12.9-16.9); Mean Corpuscular HGB Conc 31.5 g/dL (31.6-35.5); Mean Corpuscular Hemoglobin 28.8 pg (28.0-33.3); Mean Corpuscular Volume 91.5 fL (83.0-100.0); Mean Platelet Volume 9.2 fL (9.4-12.4); Red Blood Count 3.16 M/mcL (4.19-5.50)
[2017-05-10 06:16] LABS: Basophils # 0.1 K/mcL (0.0-0.2); Basophils % 0.6 %; Eosinophils # 0.3 K/mcL (0.0-0.6); Eosinophils % 3.5 %; Hematocrit 29.3 % (37.5-50.1); Hemoglobin 8.8 g/dL (12.9-16.9); Immature Granulocytes % 0.4 % (0-4); Lymphocytes # 0.7 K/mcL (0.6-4.6); Lymphocytes % 8.8 %; Mean Corpuscular Hemoglobin 27.7 pg (28.0-33.3); Mean Corpuscular Volume 92.1 fL (83.0-100.0); Mean Platelet Volume 9.3 fL (9.4-12.4); Monocytes % 12.9 %; Neutrophils # 5.7 K/mcL (1.6-8.9); Platelet Count 384 K/mcL (140-400); Red Blood Count 3.18 M/mcL (4.19-5.50); Red Cell Distribution Width 17.2 % (11.5-14.5); Segmented Neutrophils % 73.8 %
[2017-05-10 06:31] LABS: BUN/Creatinine Ratio 28 (6-26); Blood Urea Nitrogen 35 mg/dL (8-26); Calcium 8.7 mg/dL (8.6-10.8); Carbon Dioxide 32 mEq/L (19-29); Chloride 98 mEq/L (98-109); Glucose 117 mg/dL (70-99); Osmolality,Calculated 299 (280-300); Potassium 3.5 mEq/L (3.5-4.5); Sodium 140 mEq/L (136-145); eGFR For African Americans > 60 (> 60); eGFR For Non-African Americans 58 (> 60)
[2017-05-10] MEDS: Diltiazem SR (12hr) 90 MG CAPSULE PO SCH ×2 (09:27→22:26)
[2017-05-10] MEDS: *HR* Amiodarone 200 MG TABLET PO SCH (09:27)
[2017-05-10] MEDS: Insulin LISPRO 300 UNITS/3 ML VIAL SQ SCH ×4 (09:28→22:26)
[2017-05-10] MEDS: Metoprolol XL (24 HR) Succ 50 MG TAB.ER.24H PO SCH (09:32)
--- NOTE | 2017-05-10 13:44 | Discharge Summary ---
Date of Encounter: 05/10/17 Time of Encounter: 11:00 - Discharge Diagnosis (1) Congestive heart failure Priority: Primary Status: Acute Qualifiers: Congestive heart failure type: diastolic Congestive heart failure chronicity: acute on chronic Qualified Code(s): I50.33 - Acute on chronic diastolic (congestive) heart failure (2) Cirrhosis Priority: Secondary Status: Chronic Qualifiers: Hepatic cirrhosis type: other cirrhosis Qualified Code(s): K74.69 - Other cirrhosis of liver (3) GI bleed Priority: Secondary Status: Resolved Qualifiers: GI bleed type/associated pathology: melena Qualified Code(s): K92.1 - Melena (4) Afib Priority: Secondary Status: Chronic Qualifiers: Atrial fibrillation type: paroxysmal Qualified Code(s): I48.0 - Paroxysmal atrial fibrillation (5) Essential hypertension Priority: Secondary Status: Chronic (6) Sleep apnea with use of continuous positive airway pressure (CPAP) Priority: Secondary Status: Chronic (7) Type 2 diabetes mellitus Priority: Secondary Status: Chronic Qualifiers: Diabetes mellitus complication status: with hypoglycemia Diabetes mellitus complication detail: without coma 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 use: with petroleum terminal plant operator use Qualified Code(s): E11.649 - Type 2 diabetes mellitus with hypoglycemia without coma; 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 (8) Hypokalemia Priority: Secondary Status: Resolved (9) Morbid obesity with BMI of 40.0-44.9, adult Priority: Secondary Status: Chronic (10) Anemia Priority: Secondary Status: Chronic Qualifiers: Anemia type: other cause Other causes of anemia: acute posthemorrhagic Qualified Code(s): D62 - Acute posthemorrhagic anemia (11) ARF (acute renal failure) Priority: Secondary Status: Resolved Qualifiers: Acute renal failure type: with other specified pathological lesion Qualified Code(s): N17.8 - Other acute kidney failure - Discharge Medications Home Medications: Amiodarone [Cordarone] 200 mg PO DAILY 04/28/15 [History] Aspirin 81 mg PO DAILY 04/28/15 [History] Atorvastatin [Lipitor] 40 mg PO HS 04/28/15 [History] Citalopram [CeleXA] 40 mg PO DAILY 04/28/15 [History] Docosahexanoic Acid/Epa [Fish Oil Concentrate Softgel] 1 each PO DAILY 04/28/15 [History] Ferrous Sulfate 325 mg PO BIDWM 04/28/15 [History] Insulin DETEMIR [Levemir] 70 units SQ BID 04/28/15 [History] SitaGLIPtin [Januvia] 100 mg PO DAILY 04/28/15 [History] Albuterol Sulfate [Proair Hfa] 2 puff IH Q4H PRN 01/25/17 [History] Budesonide/Formoterol 160/4.5 [Symbicort 160/4.5] 2 puff IH BIDR 01/25/17 [ History] Metoprolol Succinate 200 mg PO DAILY 01/25/17 [History] Oxygen 2 l NS CONT 02/03/17 [History] Furosemide [Lasix] 60 mg PO BID #180 tab 02/08/17 [Rx] Dextrose Gel [Gluctose] 30 gm PO ONCE PRN #0 gel..gram. 02/23/17 [Rx] Glucagon, Human Recombinant [Glucagen] 1 mg IM ONCE PRN #0 vial 02/23/17 [Rx] Nicotine Patch [Nicoderm] 21 mg TD DAILY #30 patch.td24 02/23/17 [Rx] Nitroglycerin 0.4 mg SL Q5MIN PRN #0 tab.subl 02/23/17 [Rx] Potassium Chloride 8 meq PO DAILY tablet.er 02/23/17 [Rx] Tiotropium [Spiriva] 18 mcg IH 0800 #30 inh 02/23/17 [Rx] metFORMIN [Glucophage] 1,000 mg PO BIDWM tablet 02/23/17 [Rx] Diltiazem HCl [Diltiazem 24Hr Cd] 180 mg PO BID 04/06/17 [History] Insulin LISPRO [HumaLOG] 4 - 16 units SQ TIDAC 04/06/17 [History] Meclizine HCl [Verticalm] 25 - 50 mg PO Q4H PRN 04/06/17 [History] Rivaroxaban [Xarelto] 20 mg PO DAILY 04/06/17 [History] Collagenase Oint [Santyl] 1 appl TP DAILY 04/14/17 [Rx] Allergies/Adverse Reactions: 3 Allergy/AdvReac Type Severity Reaction Status Date / Time bupropion [From Wellbutrin] Allergy Difficulty Verified 04/28/15 08:53 Breathing codeine Allergy Difficulty Verified 04/28/15 08:53 Breathing Opioids-Meperidine and Allergy Difficulty Verified 04/28/15 08:53 Related Breathing [Opioids-Meperidine & Related] Date of admission: 05/04/17 14:08 Primary care physician: Damian Seymour, Consults: 05/05/17 14:43 Consult to Gastroenterology [CONS] Routine Consulting Provider: Sree Robles Reason for Consult: GI bleed Time Notified: 14:43 Call Completed: Yes 05/08/17 18:17 Consult to Wound Care [CONS] Routine Reason for Consult: Left great toe diabetic wound/ surgery wound Call Completed: No Discharging clinician: George Kiser Anticipated date of discharge: 05/10/17 - Patient Status Disposition: Home Health Service Condition: Fair Functional capacity at discharge: uses cane/walker Overall status at discharge: patient is progressing back to baseline - Discharge Instructions Follow Up With: Damian Seymour MD [Primary Care Provider] - - Diet and Activity Activity: as per physical therapy, increase activity as tolerated, resume usual activities as tolerated Diet: diabetic diet, low fat, low cholesterol, low salt diet, other (1.5L fluid restricted diet) Hospital course: Mr. Diaz is a 71 year old male with a history of COPD, congestive heart failure , hypertension and dyslipidemia, hypoxic respiratory failure, morbid obesity and diabetes who presented to the hospital due to swelling in his scrotum. That worsened about 3 days prior to visitation to the emergency department. In the emergency department, he was found to have acute exacerbation of his congestive heart failure. He was admitted to the hospital for the same. He was placed on intravenous diuretics. The patient had significant weight loss and diuresis during hospital stay and his anasarca resolved. His dry weight was found to be 132 kg. As his renal function began to deteriorate, his diuretics were stopped. At the time of presentation, he was also found to have anemia and is physical active blood test was positive. Hence, his anticoagulation was held and GI was consulted. The patient underwent endoscopy and it revealed esophageal ulcers and some gastritis. Proton inhibitor discontinuation was recommended by GI. The patient is 5 days after discrimination of his attic regulation and has not any further bleeding. Hence , at the time of discharge, he has been instructed to resume his anticoagulation for atrial fibrillation. He was transfused packed red blood cells for his anemia during hospital stay. As the patient is currently back to his baseline close to his dry weight and has been adequately diuresed, he has been deemed stable to be discharged home. - Time Spent with Patient Total time spent providing and/or coordinating discharge services: Greater than 30 minutes (50 min) - Constitutional Vitals: Temp Pulse Resp BP Pulse Ox 98.4 F 86 16 108/68 93 05/10/17 11:00 05/10/17 11:00 05/10/17 11:00 05/10/17 11:00 05/10/17 11:00 General appearance: Present: A&O X 3 Exam: Gen.: Lying in bed. No acute distress. Chest: Clear to auscultation bilaterally. No adventitious sounds present. CVS: First and second heart sounds present. No murmurs, rubs or gallops. Abdomen: Soft, nontender, nondistended. Bowel sounds present. Mild scrotal edema present.
--- NOTE | 2017-05-10 13:49 | Physician Discharge Referral ---
Home Health/Hosp Referral Info Transfer to: Home Health Attending Provider: Dr. George Kiser Provider in Charge Post Discharge: PCP - Diagnosis (1) Congestive heart failure Priority: Primary Status: Acute (2) Cirrhosis Priority: Secondary Status: Chronic (3) GI bleed Priority: Secondary Status: Resolved (4) Afib Priority: Secondary Status: Chronic (5) Essential hypertension Priority: Secondary Status: Chronic (6) Sleep apnea with use of continuous positive airway pressure (CPAP) Priority: Secondary Status: Chronic (7) Type 2 diabetes mellitus Priority: Secondary Status: Chronic (8) Hypokalemia Priority: Secondary Status: Resolved (9) Morbid obesity with BMI of 40.0-44.9, adult Priority: Secondary Status: Chronic (10) Anemia Priority: Secondary Status: Chronic (11) ARF (acute renal failure) Priority: Secondary Status: Resolved - Respiratory Orders Oxygen / L per min (4) Smoking Cessation: Smoking cessation has been advised. For more information, call the [place] Tobacco Quit Line at 4-326-ATSE-NOW. - Diet/Nutrition Diet/Nutrition Orders: No Added Salt (LAMINE), Cardiac, No Concentrated Sweets - Activity Activity Orders: Up ad andrea, Chair, Walker - Services Needed Following services are medically necessary services: Nursing, Home Health Aide, Physical Therapy, Occupational Therapy - Transfer Medications Home Medications: Amiodarone [Cordarone] 200 mg PO DAILY 04/28/15 [History] Aspirin 81 mg PO DAILY 04/28/15 [History] Atorvastatin [Lipitor] 40 mg PO HS 04/28/15 [History] Citalopram [CeleXA] 40 mg PO DAILY 04/28/15 [History] Docosahexanoic Acid/Epa [Fish Oil Concentrate Softgel] 1 each PO DAILY 04/28/15 [History] Ferrous Sulfate 325 mg PO BIDWM 04/28/15 [History] Insulin DETEMIR [Levemir] 70 units SQ BID 04/28/15 [History] SitaGLIPtin [Januvia] 100 mg PO DAILY 04/28/15 [History] Albuterol Sulfate [Proair Hfa] 2 puff IH Q4H PRN 01/25/17 [History] Budesonide/Formoterol 160/4.5 [Symbicort 160/4.5] 2 puff IH BIDR 01/25/17 [ History] Metoprolol Succinate 200 mg PO DAILY 01/25/17 [History] Oxygen 2 l NS CONT 02/03/17 [History] Furosemide [Lasix] 60 mg PO BID #180 tab 02/08/17 [Rx] Dextrose Gel [Gluctose] 30 gm PO ONCE PRN #0 gel..gram. 02/23/17 [Rx] Glucagon, Human Recombinant [Glucagen] 1 mg IM ONCE PRN #0 vial 02/23/17 [Rx] Nicotine Patch [Nicoderm] 21 mg TD DAILY #30 patch.td24 02/23/17 [Rx] Nitroglycerin 0.4 mg SL Q5MIN PRN #0 tab.subl 02/23/17 [Rx] Potassium Chloride 8 meq PO DAILY tablet.er 02/23/17 [Rx] Tiotropium [Spiriva] 18 mcg IH 0800 #30 inh 02/23/17 [Rx] metFORMIN [Glucophage] 1,000 mg PO BIDWM tablet 02/23/17 [Rx] Diltiazem HCl [Diltiazem 24Hr Cd] 180 mg PO BID 04/06/17 [History] Insulin LISPRO [HumaLOG] 4 - 16 units SQ TIDAC 04/06/17 [History] Meclizine HCl [Verticalm] 25 - 50 mg PO Q4H PRN 04/06/17 [History] Rivaroxaban [Xarelto] 20 mg PO DAILY 04/06/17 [History] Collagenase Oint [Santyl] 1 appl TP DAILY 04/14/17 [Rx] Allergies/Adverse Reactions: 3 Allergy/AdvReac Type Severity Reaction Status Date / Time bupropion [From Wellbutrin] Allergy Difficulty Verified 04/28/15 08:53 Breathing codeine Allergy Difficulty Verified 04/28/15 08:53 Breathing Opioids-Meperidine and Allergy Difficulty Verified 04/28/15 08:53 Related Breathing [Opioids-Meperidine & Related] Certification: Further, I certify that my clinical findings support that this patient is homebound (i.e. absences from home require considerable and taxing effort and are for medical reasons or evangelical services or infrequently or short duration when for other reasons) because: Homebound Reason: Patient requires assistance of a person or device to safely leave home, Leaving home requires considerable and taxing effort due to condition, Severity of cardiac or pulmonary status limits activity tolerance Attestation: My signature below is to certify that this patient is under my care and that I, or nurse practitioner, or a physician's assistant cross country coach working with me, has a face-to -face encounter with this patient.
[2017-05-10] MEDS ORDERED: *HR* Rivaroxaban 10 MG TABLET PO SCH (17:00)
[2017-05-10] MEDS: Furosemide 20 MG TABLET PO SCH (17:41)
[2017-05-10] MEDS: *HR* Metformin 500 MG TABLET PO SCH (17:42)
[2017-05-10] MEDS: Budesonide/Formoterol 160/4.5 MDI IH SCH (20:38)
[2017-05-11] MEDS: Furosemide 20 MG TABLET PO SCH (08:50)
[2017-05-11] MEDS: Diltiazem SR (12hr) 90 MG CAPSULE PO SCH (08:50)
[2017-05-11] MEDS: *HR* Metformin 500 MG TABLET PO SCH (08:50)
[2017-05-11] MEDS: Insulin LISPRO 300 UNITS/3 ML VIAL SQ SCH ×2 (08:50→11:32)
[2017-05-11] MEDS: *HR* Amiodarone 200 MG TABLET PO SCH (08:50)
[2017-05-11] MEDS: Metoprolol XL (24 HR) Succ 50 MG TAB.ER.24H PO SCH (08:50)
[2017-05-11] MEDS ORDERED: *HR* SitaGLIPtin 100 MG TABLET PO SCH (09:00)
[2017-05-11] MEDS ORDERED: Tiotropium 18 MCG inhalation IH SCH (10:00)
[2017-05-11] MEDS: Budesonide/Formoterol 160/4.5 MDI IH SCH (10:43)
[2017-05-11] MEDS ORDERED: Insulin DETEMIR 100 UNIT/ML X5UNITS SQ SCH (10:45)
[2017-05-11 10:57] VITALS: BP 100/63
== END 2017-05-11 13:24 | disposition home health service (06) | DRG 291 ==
LOC: EMEROO 19:50 → 2NENU 19:50 → SUATTDRO 05-04 14:08
PROVIDERS: ADMIT Internal Medicine; ATTEND Internal Medicine Sleep Medicine

== ENCOUNTER 2017-06-17 00:10 | Inpatient (IN) ==
[2017-06-17] MEDS ORDERED: methylPREDNISolone 125 MG/2 ML VIAL IVP ONE (00:25)
[2017-06-17] MEDS ORDERED: Ipratropium/Albuterol Neb 3 ML IH ONE (00:25)
[2017-06-17] MEDS ORDERED: Furosemide 40 MG/4 ML VIAL IVP ONE (00:25)
--- NOTE | 2017-06-17 00:45 | Emergency Department Note ---
START Narrative - START START: I examined this patient and my medical decision-making was reviewed with the Resident Physician. I agree with the documented findings, disposition and treatment plan as described except to the extent set forth below. 71 year old male with hx of liver cirrhosis and CHF/COPD and states that he had a paracentesis about 3 days ago and is fluid overloaded again and taht now he is havign icnreased shortness of breath and believes it is due to his fluid overload and it is aggravating his COPD. Patient states that this is reucring problems. We will do a cardaic workup and bryce admit to [facility].
[2017-06-17 00:56] LABS: Bilirubin,Urine Negative (Negative); Blood,Urine Negative (Negative); Clarity,Urine Cloudy (Clear); Color,Urine Yellow (Yellow); Glucose,Urine (UA) Normal (Normal); Ketones,Urine Negative (Negative); Leukocyte Esterase,Urine Negative (Negative); Nitrite,Urine Negative (Negative); Protein,Urine Negative (Neg-Trace); Specific Gravity,Urine 1.016 (1.010-1.025); Urobilinogen,Urine Normal (Normal)
[2017-06-17 00:58] LABS: Bacteria,Urine None Seen per hpf (None-Few); Hyaline Casts,Urine None Seen per lpf (None-Few); RBC,Urine 0-3 per hpf (0-3); Squamous Epithelial Cell,Urine Few per lpf (None-Few); WBC,Urine 0-3 per hpf (0-3)
[2017-06-17 01:10] LABS: Basophils # 0.1 K/mcL (0.0-0.2); Basophils % 0.6 %; Eosinophils # 0.2 K/mcL (0.0-0.6); Eosinophils % 1.8 %; Hematocrit 28.1 % (37.5-50.1); Hemoglobin 8.2 g/dL (12.9-16.9); Immature Granulocytes % 0.3 % (0-4); Immature Platelets 1.4 % (1.1-6.1); Lymphocytes # 0.6 K/mcL (0.6-4.6); Lymphocytes % 6.4 %; Mean Corpuscular HGB Conc 29.2 g/dL (31.6-35.5); Mean Corpuscular Hemoglobin 25.1 pg (28.0-33.3); Mean Platelet Volume 8.9 fL (9.4-12.4); Monocytes # 0.9 K/mcL (0.0-1.3); Monocytes % 8.8 %; Platelet Count 559 K/mcL (140-400); Red Blood Count 3.27 M/mcL (4.19-5.50); Segmented Neutrophils % 82.1 %
--- NOTE | 2017-06-17 01:10 | Emergency Department Note ---
Disposition Clinical Impression: Acute exacerbation of chronic obstructive airways disease, Pleural effusion, right Acute exacerbation of CHF (congestive heart failure) Qualifiers: Congestive heart failure type: unspecified congestive heart failure type Qualified Code(s): I50.9 - Heart failure, unspecified Disposition: Admitted As Inpatient Condition: Fair Referrals: aDmian Seymour MD [Primary Care Provider] - Forms: ED Satisfaction Letter Time of Disposition: 00:14 SOB HPI - General Chief Complaint: ED Shortness of Breath/Dyspnea Stated Complaint: SOB Time Seen by Provider: 06/17/17 00:15 Source: patient, EMS Limitations: no limitations Nursing Notes Reviewed: Yes Vital Signs Reviewed: Yes - History of Present Illness Patient is a 71-year-old male who presents to [facility] ED with a chief complaint of difficulty breathing. States his symptoms have been ongoing over the last couple days. However it worsened earlier today when he took off his 5 L nasal cannula oxygen and then forgot to put it back on. Patient was just discharged from the intermediate this morning. Past medical history significant for history of COPD, congestive heart failure, hypertension and dyslipidemia, hypoxic respiratory failure, morbid obesity and diabetes. Last echocardiogram backon 04/23/17 showed EF of 50-55%. Patient just had a paracentesis done on June 14. Patient does state he has felt more full lately but denies any abdominal pain, nausea, vomiting, fever or chills. Pt Subjective Complaint: shortness of breath Onset (ago): hour(s) Severity: moderate Consistency/Duration: gradually worsening Improves with: nothing Worsens with: nothing Known history of: COPD, congestive heart failure Associated symptoms: Reports: denies other symptoms. Denies: chest pain, fever , cough, abdominal pain Treatment prior to arrival: oxygen Cough present: No - Related Data Home oxygen amount: other (5 liter) Home Medications Medication Instructions Recorded Confirmed Amiodarone [Cordarone] 200 mg PO DAILY 04/28/15 06/06/17 Aspirin 81 mg PO DAILY 04/28/15 06/06/17 Atorvastatin [Lipitor] 40 mg PO HS 04/28/15 06/06/17 Citalopram [CeleXA] 40 mg PO DAILY 04/28/15 06/06/17 Docosahexanoic Acid/Epa [Fish Oil 1 each PO DAILY 04/28/15 06/06/17 Concentrate Softgel] Ferrous Sulfate 325 mg PO BIDWM 04/28/15 06/06/17 SitaGLIPtin [Januvia] 100 mg PO DAILY 04/28/15 06/06/17 Albuterol Sulfate [Proair Hfa] 2 puff IH Q4H PRN 01/25/17 06/06/17 Budesonide/Formoterol 160/4.5 2 puff IH BIDR 01/25/17 06/06/17 [Symbicort 160/4.5] Metoprolol Succinate 200 mg PO DAILY 01/25/17 06/06/17 Oxygen 2 l NS CONT 02/03/17 06/06/17 Diltiazem HCl [Diltiazem 24Hr Cd] 180 mg PO BID 04/06/17 06/06/17 Insulin LISPRO [HumaLOG] 4 - 16 units SQ TIDAC 04/06/17 06/06/17 Meclizine HCl [Verticalm] 25 - 50 mg PO Q4H PRN 04/06/17 06/06/17 Rivaroxaban [Xarelto] 20 mg PO DAILY 04/06/17 06/06/17 Previous Rx's Medication Instructions Recorded Furosemide [Lasix] 60 mg PO BID #180 tab 02/08/17 Dextrose Gel [Gluctose] 30 gm PO ONCE PRN #0 gel..gram. 02/23/17 Glucagon, Human Recombinant 1 mg IM ONCE PRN #0 vial 02/23/17 [Glucagen] Nicotine Patch [Nicoderm] 21 mg TD DAILY #30 patch.td24 02/23/17 Nitroglycerin 0.4 mg SL Q5MIN PRN #0 tab.subl 02/23/17 Potassium Chloride 8 meq PO DAILY tablet.er 02/23/17 Tiotropium [Spiriva] 18 mcg IH 0800 #30 inh 02/23/17 metFORMIN [Glucophage] 1,000 mg PO BIDWM tablet 02/23/17 Insulin DETEMIR [Levemir Flextouch] 35 unit SQ BID #2 pack 05/11/17 Omeprazole [PriLOSEC] 40 mg PO DAILY #120 cap 05/11/17 Allergies Allergy/AdvReac Type Severity Reaction Status Date / Time bupropion [From Wellbutrin] Allergy Difficulty Verified 06/17/17 00:14 Breathing codeine Allergy Difficulty Verified 06/17/17 00:14 Breathing Opioids-Meperidine and Allergy Difficulty Verified 06/17/17 00:14 Related Breathing [Opioids-Meperidine & Related] All systems ED: reviewed and negative except as stated. Past Medical History - Past Medical History Attestation: Yes The following information was validated with the patient. Source: patient Medical history: Reports: arthritis, atrial fibrillation, CHF, COPD, diabetes, hyperlipidemia, hypertension, liver disease, renal disease Surgical history: Reports: orthopedic, other, pacemaker/AICD Psychiatric history: Reports: no psych history - Social History Smoking Status: Former smoker Smokeless Tobacco Status: No Alcohol use: Reports: none Drug use: Reports: none Physical Exam - General Limitations: no limitations General appearance: alert - Head Head exam: atraumatic, normocephalic, normal inspection - Eye Eye exam: Present: normal appearance, EOMI - ENT ENT exam: normal exam, normal oropharynx, mucous membranes moist - Neck Neck exam: Present: normal inspection, full ROM, trachea midline - Chest Chest inspection: Present: normal inspection, symmetric chest wall rise - Respiratory Respiratory exam: Present: wheezes, other (decreased breath sounds throughout) - Cardiovascular Cardiovascular exam: Present: normal rhythm, tachycardia, normal heart sounds - Abdominal Exam Abdominal exam: Present: soft, Non-Tender, distention, diminished bowel sounds. Absent: tenderness, guarding, rebound, rigidity - Extremities Exam Extremities exam: Present: normal inspection, full ROM. Absent: tenderness, pedal edema - Back Exam Back exam: Present: normal inspection, full ROM. Absent: tenderness - Neurological Exam Neurological exam: Present: alert - Psychiatric Psychiatric exam: Present: normal affect, normal mood - Skin Skin exam: Present: warm, dry, intact, normal color Course Course Narrative: Patient seen and examined. Worsening shortness of breath over the evening. Chronic COPD here on 5 L of oxygen. Denies any chest pain or abdominal pain. He does feel more distended in his abdomen again even though he just got a paracentesis approximately 3 days ago. Cardiopulmonary workup initiated. We will give 40 of IV Lasix as well as continuous DuoNeb treatment and Solu-Medrol. - Reevaluation(s) Reevaluation #1: Lab work shows mildly elevated creatinine. The patient is anemic but this appears to be around baseline. His chest x-ray shows a right-sided pleural effusion. His abdomen is distended and likely has fluid build up again as well. We will admit for CHF/COPD exacerbation. Discussed with hospitalist Dr. Swain who has accepted patient for admission. Time: 00:14 Vital Signs Temperature 98.2 F 06/17/17 00:14 Pulse Rate 104 06/17/17 00:14 Respiratory Rate 20 06/17/17 00:14 Blood Pressure 125/83 06/17/17 00:14 O2 Sat by Pulse Oximetry 94 06/17/17 00:14 Temperature 98.2 F 06/17/17 00:14 Pulse Rate 104 06/17/17 01:25 Respiratory Rate 22 06/17/17 01:25 Blood Pressure 129/79 06/17/17 01:25 O2 Sat by Pulse Oximetry 91 06/17/17 01:25 Oxygen Delivery Oxygen Delivery Nasal Cannula Shortness of Breath/Dyspnea - Medical Records Medical records reviewed: Yes I reviewed the patient's medical records. - Lab Data Lab results reviewed: Yes I reviewed the patient's lab results. Result diagrams: 06/17/17 01:03 06/17/17 01:03 Lab Results 06/17/17 06/17/17 06/17/17 Range/Units 00:45 01:03 01:03 WBC (4.3-11.1) K/mcL RBC (4.19-5.50) M/mcL Hgb (12.9-16.9) g/dL Hct (37.5-50.1) % MCV (83.0-100.0) fL MCH (28.0-33.3) pg MCHC (31.6-35.5) g/dL RDW (11.5-14.5) % Plt Count (140-400) K/mcL MPV (9.4-12.4) fL Immature Gran % (0-4) % Seg Neutrophils % % Lymphocytes % % Monocytes % % Eosinophils % % Basophils % % Neutrophils # (1.6-8.9) K/mcL Lymphocytes # (0.6-4.6) K/mcL Monocytes # (0.0-1.3) K/mcL Eosinophils # (0.0-0.6) K/mcL Basophils # (0.0-0.2) K/mcL Immature Plt Fraction (1.1-6.1) % PT 17.3 H (9.4-12.1) Seconds INR 1.6 APTT 35.4 (26.0-36.0) Seconds Sodium (136-145) mEq/L Potassium (3.5-4.5) mEq/L Chloride (98-109) mEq/L Carbon Dioxide (19-29) mEq/L BUN (8-26) mg/dL Creatinine (0.72-1.25) mg/dL Est GFR ( Amer) (> 60) Est GFR (Non-Af Amer) (> 60) BUN/Creatinine Ratio (6-26) Glucose (70-99) mg/dL Calculated Osmolality (280-300) Calcium (8.6-10.8) mg/dL Total Bilirubin 0.4 (0.2-1.2) mg/dL Direct Bilirubin 0.2 (0.0-0.5) mg/dL Indirect Bilirubin 0.2 (0.0-1.2) mg/dL AST 9 (5-34) Units/L ALT 8 (0-55) Units/L Alkaline Phosphatase 136 H (38-126) Units/L Troponin I (0-0.03) ng/mL B-Natriuretic Peptide (0-100) pg/mL Serum Total Protein 7.5 (6.0-8.3) g/dL Albumin 2.9 L (3.5-5.0) g/dL Globulin 4.6 H (2.4-3.5) g/dL Albumin/Globulin Ratio 0.6 L (1.1-2.2) Lipase 19 (8-78) Units/L Urine Color Yellow (Yellow) Urine Clarity Cloudy A (Clear) Urine pH 6.0 (5.0-8.0) pH Units Ur Specific [place] 1.016 (1.010-1.025) Urine Protein Negative (Neg-Trace) mg/dL Urine Glucose (UA) Normal (Normal) mg/dL Urine Ketones Negative (Negative) mg/dL Urine Blood Negative (Negative) Urine Nitrite Negative (Negative) Urine Bilirubin Negative (Negative) Urine Urobilinogen Normal (Normal) mg/dL Ur Leukocyte Esterase Negative (Negative) Urine Microscopic RBC 0-3 (0-3) per hpf Urine Microscopic WBC 0-3 (0-3) per hpf Ur Squamous Epith Cells Few (None-Few) per lpf Urine Bacteria None Seen (None-Few) per hpf Hyaline Casts None Seen (None-Few) per lpf Ur Culture Indicated? NO (NO) 06/17/17 06/17/17 06/17/17 Range/Units 01:03 01:03 01:03 WBC 9.7 (4.3-11.1) K/mcL RBC 3.27 L (4.19-5.50) M/mcL Hgb 8.2 L (12.9-16.9) g/dL Hct 28.1 L (37.5-50.1) % MCV 85.9 (83.0-100.0) fL MCH 25.1 L (28.0-33.3) pg MCHC 29.2 L (31.6-35.5) g/dL RDW 17.0 H (11.5-14.5) % Plt Count 559 H (140-400) K/mcL MPV 8.9 L (9.4-12.4) fL Immature Gran % 0.3 (0-4) % Seg Neutrophils % 82.1 % Lymphocytes % 6.4 % Monocytes % 8.8 % Eosinophils % 1.8 % Basophils % 0.6 % Neutrophils # 8.0 (1.6-8.9) K/mcL Lymphocytes # 0.6 (0.6-4.6) K/mcL Monocytes # 0.9 (0.0-1.3) K/mcL Eosinophils # 0.2 (0.0-0.6) K/mcL Basophils # 0.1 (0.0-0.2) K/mcL Immature Plt Fraction 1.4 (1.1-6.1) % PT (9.4-12.1) Seconds INR APTT (26.0-36.0) Seconds Sodium 138 (136-145) mEq/L Potassium 4.3 (3.5-4.5) mEq/L Chloride 101 (98-109) mEq/L Carbon Dioxide 23 (19-29) mEq/L BUN 36 H D (8-26) mg/dL Creatinine 1.55 H (0.72-1.25) mg/dL Est GFR ( Amer) 54 L (> 60) Est GFR (Non-Af Amer) 44 L (> 60) BUN/Creatinine Ratio 23 (6-26) Glucose 139 H (70-99) mg/dL Calculated Osmolality 297 (280-300) Calcium 9.0 (8.6-10.8) mg/dL Total Bilirubin (0.2-1.2) mg/dL Direct Bilirubin (0.0-0.5) mg/dL Indirect Bilirubin (0.0-1.2) mg/dL AST (5-34) Units/L ALT (0-55) Units/L Alkaline Phosphatase (38-126) Units/L Troponin I (0-0.03) ng/mL B-Natriuretic Peptide 434 H (0-100) pg/mL Serum Total Protein (6.0-8.3) g/dL Albumin (3.5-5.0) g/dL Globulin (2.4-3.5) g/dL Albumin/Globulin Ratio (1.1-2.2) Lipase (8-78) Units/L Urine Color (Yellow) Urine Clarity (Clear) Urine pH (5.0-8.0) pH Units Ur Specific [place] (1.010-1.025) Urine Protein (Neg-Trace) mg/dL Urine Glucose (UA) (Normal) mg/dL Urine Ketones (Negative) mg/dL Urine Blood (Negative) Urine Nitrite (Negative) Urine Bilirubin (Negative) Urine Urobilinogen (Normal) mg/dL Ur Leukocyte Esterase (Negative) Urine Microscopic RBC (0-3) per hpf Urine Microscopic WBC (0-3) per hpf Ur Squamous Epith Cells (None-Few) per lpf Urine Bacteria (None-Few) per hpf Hyaline Casts (None-Few) per lpf Ur Culture Indicated? (NO) 06/17/17 Range/Units 01:03 WBC (4.3-11.1) K/mcL RBC (4.19-5.50) M/mcL Hgb (12.9-16.9) g/dL Hct (37.5-50.1) % MCV (83.0-100.0) fL MCH (28.0-33.3) pg MCHC (31.6-35.5) g/dL RDW (11.5-14.5) % Plt Count (140-400) K/mcL MPV (9.4-12.4) fL Immature Gran % (0-4) % Seg Neutrophils % % Lymphocytes % % Monocytes % % Eosinophils % % Basophils % % Neutrophils # (1.6-8.9) K/mcL Lymphocytes # (0.6-4.6) K/mcL Monocytes # (0.0-1.3) K/mcL Eosinophils # (0.0-0.6) K/mcL Basophils # (0.0-0.2) K/mcL Immature Plt Fraction (1.1-6.1) % PT (9.4-12.1) Seconds INR APTT (26.0-36.0) Seconds Sodium (136-145) mEq/L Potassium (3.5-4.5) mEq/L Chloride (98-109) mEq/L Carbon Dioxide (19-29) mEq/L BUN (8-26) mg/dL Creatinine (0.72-1.25) mg/dL Est GFR ( Amer) (> 60) Est GFR (Non-Af Amer) (> 60) BUN/Creatinine Ratio (6-26) Glucose (70-99) mg/dL Calculated Osmolality (280-300) Calcium (8.6-10.8) mg/dL Total Bilirubin (0.2-1.2) mg/dL Direct Bilirubin (0.0-0.5) mg/dL Indirect Bilirubin (0.0-1.2) mg/dL AST (5-34) Units/L ALT (0-55) Units/L Alkaline Phosphatase (38-126) Units/L Troponin I 0.02 (0-0.03) ng/mL B-Natriuretic Peptide (0-100) pg/mL Serum Total Protein (6.0-8.3) g/dL Albumin (3.5-5.0) g/dL Globulin (2.4-3.5) g/dL Albumin/Globulin Ratio (1.1-2.2) Lipase (8-78) Units/L Urine Color (Yellow) Urine Clarity (Clear) Urine pH (5.0-8.0) pH Units Ur Specific [place] (1.010-1.025) Urine Protein (Neg-Trace) mg/dL Urine Glucose (UA) (Normal) mg/dL Urine Ketones (Negative) mg/dL Urine Blood (Negative) Urine Nitrite (Negative) Urine Bilirubin (Negative) Urine Urobilinogen (Normal) mg/dL Ur Leukocyte Esterase (Negative) Urine Microscopic RBC (0-3) per hpf Urine Microscopic WBC (0-3) per hpf Ur Squamous Epith Cells (None-Few) per lpf Urine Bacteria (None-Few) per hpf Hyaline Casts (None-Few) per lpf Ur Culture Indicated? (NO) - Radiology Data Radiology results reviewed: Yes I reviewed the patient's radiology results. Chest X-Ray 06/17/17 00:25 IMPRESSION: Pulmonary edema with progressive right sided pleuroparenchymal disease. D/ / Kobi Bond MD / Kobi Bond MD Interpreting Provider: Kobi Bond MD - EKG Data EKG attestation: Yes I reviewed and interpreted this EKG. EKG results narrative: EKG done at 00 17 shows sinus tachycardia with a rate of 104 beats per minutes and EKG unchanged from prior one done 05/01/2017 a first-degree AV block. Patient has pacemaker in place. Right axis deviation.
[2017-06-17 01:11] LABS: Mean Corpuscular Volume 85.9 fL (83.0-100.0)
[2017-06-17 01:16] LABS: INR 1.6; Prothrombin Time 17.3 Seconds (9.4-12.1)
[2017-06-17 01:18] LABS: Activated Partial Thrombo Time 35.4 Seconds (26.0-36.0)
[2017-06-17 01:23] LABS: Albumin 2.9 g/dL (3.5-5.0); Albumin/Globulin Ratio 0.6 (1.1-2.2); Bilirubin,Direct 0.2 mg/dL (0.0-0.5); Bilirubin,Indirect 0.2 mg/dL (0.0-1.2); Bilirubin,Total 0.4 mg/dL (0.2-1.2); Globulin 4.6 g/dL (2.4-3.5); Potassium 4.3 mEq/L (3.5-4.5); Total Protein 7.5 g/dL (6.0-8.3)
[2017-06-17] MEDS ORDERED: *HR* LORazepam 2 MG/ML VIAL IVP ONE (01:29)
[2017-06-17] MEDS ORDERED: NON-FORMULARY MEDICATION 1 EACH EACH (Oxygen [Oxygen] 2 L) NS SCH (07:45)
--- NOTE | 2017-06-17 07:50 | Internal Med History&Physical ---
Date of Encounter: 06/17/17 Time of Encounter: 07:47 Assessment and Plan (1) Diabetes mellitus Current visit: Yes Status: Acute Sliding scale insulin Q4 hours. Qualifiers: Qualified Code(s): E11.9 - Type 2 diabetes mellitus without complications (2) Congestive heart failure Current visit: No Status: Acute I will start the patient on Lasix 80 mg twice daily. Strict intake and output. Daily weight. Qualifiers: Congestive heart failure type: diastolic Congestive heart failure chronicity: acute on chronic Qualified Code(s): I50.33 - Acute on chronic diastolic (congestive) heart failure (3) Acute and chronic respiratory failure Current visit: No Status: Acute Due to CHF mainly and mild COPD exacerbation. Patient is awake during my interview. Use BiPAP during nighttime and periods when he is more sleepy/ lethargic Qualifiers: Respiratory failure complication: hypoxia Qualified Code(s): J96.21 - Acute and chronic respiratory failure with hypoxia (4) COPD (chronic obstructive pulmonary disease) Current visit: No Status: Chronic Will continue [id number] nebulizer treatment. I suspect the main pathology is volume overload. there are some expiratory wheeze probably due to congestion. Will keep on small dose of oral prednisone 40 mg. Re-examine after diuresis Qualifiers: COPD type: unspecified COPD Qualified Code(s): J44.9 - Chronic obstructive pulmonary disease, unspecified (5) Afib Current visit: No Status: Chronic Continue Xarelto Qualifiers: Atrial fibrillation type: paroxysmal Qualified Code(s): I48.0 - Paroxysmal atrial fibrillation (6) Sleep apnea with use of continuous positive airway pressure (CPAP) Current visit: No Status: Chronic CPAP Internal Medicine - H&P: HPI Chief complaint: sob History of present illness: Mr. Diaz is a 71 year old male with multiple medical problems including COPD on 3 L home oxygen, congestive heart failure, obstructive sleep apnea on CPAP, liver cirrhosis just had paracentesis 3 days ago presents to the emergency room with a complain of shortness of breath. For the past few days patient has been noticing progressive shortness of breath to the point where he was short of breath test. He notices swelling in both lower extremities. He has difficulty laying flat because worsening shortness of breath. He denies increased call for sputum production. No fever or chills. Patient also mentioned that he has been more lethargic and confused than usual Past Med Surg Social Fam HX - Past Medical History Medical history: arthritis, atrial fibrillation, CHF, COPD, diabetes, hyperlipidemia, hypertension, liver disease, renal disease Psychiatric history: no psych history - Past Surgical History Surgical History: orthopedic, other, pacemaker/AICD - Social History Smoking Status: Former smoker Smokeless Tobacco Status: No Alcohol use: none Drug use: none - Family History Father Hx Family Cardiac Disorders: Yes (Triple Bypass) Hx Family Endocrine Disorder: Yes (DM) Mother Family Member Ethnicity: Non- Living Status: Internal Medicine - H&P: Meds Amiodarone [Cordarone] 200 mg PO DAILY 04/28/15 [History] Aspirin 81 mg PO DAILY 04/28/15 [History] Atorvastatin [Lipitor] 40 mg PO HS 04/28/15 [History] Citalopram [CeleXA] 40 mg PO DAILY 04/28/15 [History] Docosahexanoic Acid/Epa [Fish Oil Concentrate Softgel] 1 each PO DAILY 04/28/15 [History] Ferrous Sulfate 325 mg PO BIDWM 04/28/15 [History] SitaGLIPtin [Januvia] 100 mg PO DAILY 04/28/15 [History] Albuterol Sulfate [Proair Hfa] 2 puff IH Q4H PRN 01/25/17 [History] Budesonide/Formoterol 160/4.5 [Symbicort 160/4.5] 2 puff IH BIDR 01/25/17 [ History] Metoprolol Succinate 200 mg PO DAILY 01/25/17 [History] Oxygen 2 l NS CONT 02/03/17 [History] Furosemide [Lasix] 60 mg PO BID #180 tab 02/08/17 [Rx] Dextrose Gel [Gluctose] 30 gm PO ONCE PRN #0 gel..gram. 02/23/17 [Rx] Glucagon, Human Recombinant [Glucagen] 1 mg IM ONCE PRN #0 vial 02/23/17 [Rx] Nicotine Patch [Nicoderm] 21 mg TD DAILY #30 patch.td24 02/23/17 [Rx] Nitroglycerin 0.4 mg SL Q5MIN PRN #0 tab.subl 02/23/17 [Rx] Potassium Chloride 8 meq PO DAILY tablet.er 02/23/17 [Rx] Tiotropium [Spiriva] 18 mcg IH 0800 #30 inh 02/23/17 [Rx] metFORMIN [Glucophage] 1,000 mg PO BIDWM tablet 02/23/17 [Rx] Diltiazem HCl [Diltiazem 24Hr Cd] 180 mg PO BID 04/06/17 [History] Insulin LISPRO [HumaLOG] 4 - 16 units SQ TIDAC 04/06/17 [History] Meclizine HCl [Verticalm] 25 - 50 mg PO Q4H PRN 04/06/17 [History] Rivaroxaban [Xarelto] 20 mg PO DAILY 04/06/17 [History] Insulin DETEMIR [Levemir Flextouch] 35 unit SQ BID #2 pack 05/11/17 [Rx] Omeprazole [PriLOSEC] 40 mg PO DAILY #120 cap 05/11/17 [Rx] 3 Allergy/AdvReac Type Severity Reaction Status Date / Time bupropion [From Wellbutrin] Allergy Difficulty Verified 06/17/17 00:14 Breathing codeine Allergy Difficulty Verified 06/17/17 00:14 Breathing Opioids-Meperidine and Allergy Difficulty Verified 06/17/17 00:14 Related Breathing [Opioids-Meperidine & Related] All Systems PM: A 10-system review of systems was performed and is negative for pertinent findings except as documented above in the HPI. Review of systems: 10 point review of systems is negative except for HPI - Constitutional Vitals: Temp Pulse Resp BP Pulse Ox 98.2 F 101 17 132/75 96 06/17/17 06:33 06/17/17 06:33 06/17/17 06:33 06/17/17 06:33 06/17/17 06:33 Exam: Gen.: patient is alert oriented times 3 cardiac: normal S1 S2 no additional sounds or murmurs chest: bilateral crackles. minimal expiratory wheeze abdomen soft nontender nondistended normal bowel sounds lower extremity no swelling. Neuro: no new focal deficits Internal Med - H&P Results - Labs CBC & Chem 7: 06/17/17 01:03 06/17/17 01:03
[2017-06-17 08:10] LABS: Hematocrit 27.1 % (37.5-50.1); Hemoglobin 8.1 g/dL (12.9-16.9); Red Blood Count 3.18 M/mcL (4.19-5.50)
[2017-06-17 08:11] LABS: Basophils % 0.2 %; Eosinophils % 0.1 %; Immature Granulocytes % 0.6 % (0-4); Immature Platelets 1.5 % (1.1-6.1); Lymphocytes # 0.4 K/mcL (0.6-4.6); Lymphocytes % 2.8 %; Mean Corpuscular HGB Conc 29.9 g/dL (31.6-35.5); Mean Corpuscular Hemoglobin 25.5 pg (28.0-33.3); Mean Corpuscular Volume 85.2 fL (83.0-100.0); Monocytes # 0.1 K/mcL (0.0-1.3); Monocytes % 0.6 %; Neutrophils # 11.8 K/mcL (1.6-8.9); Platelet Count 512 K/mcL (140-400); Segmented Neutrophils % 95.7 %
[2017-06-17 08:21] LABS: Magnesium 2.2 mg/dL (1.6-2.6)
[2017-06-17 08:22] LABS: Potassium 4.6 mEq/L (3.5-4.5)
[2017-06-17] MEDS: Insulin LISPRO 300 UNITS/3 ML VIAL SQ SCH ×4 (09:00→22:18)
[2017-06-17] MEDS: Furosemide 100 MG/10 ML VIAL IVP SCH ×3 (09:00→22:19)
[2017-06-17] MEDS: *HR* Amiodarone 200 MG TABLET PO SCH (09:01)
[2017-06-17] MEDS: Diltiazem CD (24hr) 180 MG CAPSULE PO SCH ×2 (09:01→22:19)
[2017-06-17] MEDS: Aspirin 81 MG TAB.CHEW PO SCH (09:01)
[2017-06-17] MEDS: predniSONE 20 MG TABLET PO SCH (09:01)
[2017-06-17] MEDS: Metoprolol XL (24 HR) Succ 50 MG TAB.ER.24H PO SCH (09:01)
[2017-06-17] MEDS: Ipratropium/Albuterol Neb 3 ML IH SCH ×4 (10:06→20:21)
[2017-06-17] MEDS: Budesonide/Formoterol 160/4.5 MDI IH SCH ×2 (11:05→20:21)
[2017-06-18] MEDS: Ipratropium/Albuterol Neb 3 ML IH SCH ×7 (00:03→23:24)
[2017-06-18] MEDS: Insulin LISPRO 300 UNITS/3 ML VIAL SQ SCH ×6 (02:19→20:08)
[2017-06-18] MEDS: Budesonide/Formoterol 160/4.5 MDI IH SCH ×2 (07:44→19:39)
[2017-06-18] MEDS: Furosemide 100 MG/10 ML VIAL IVP SCH ×2 (10:01→19:57)
[2017-06-18] MEDS: Diltiazem CD (24hr) 180 MG CAPSULE PO SCH ×2 (10:04→19:57)
[2017-06-18] MEDS: predniSONE 20 MG TABLET PO SCH (10:04)
[2017-06-18] MEDS: Aspirin 81 MG TAB.CHEW PO SCH (10:04)
[2017-06-18] MEDS: *HR* Amiodarone 200 MG TABLET PO SCH (10:05)
[2017-06-18] MEDS: Metoprolol XL (24 HR) Succ 50 MG TAB.ER.24H PO SCH (10:05)
[2017-06-18] MEDS ORDERED: D5% in Water 1,000 ML IVC PRN (16:43)
[2017-06-18] MEDS ORDERED: Dextrose Gel 15 GM PO PRN ×2 (16:43)
[2017-06-18] MEDS ORDERED: *HR* Dextrose 50 % in Water (Syg) 50 ML SYRINGE IVP PRN (16:43)
--- NOTE | 2017-06-18 18:27 | Internal Med Progress Note ---
Date of Encounter: 06/18/17 Time of Encounter: 10:00 - Assessment and plan (1) Acute and chronic respiratory failure Current Visit: Yes Status: Acute Assessment and plan: Currently seems to be doing somewhat better. Off bipap and eating breakfast. Continue bipap as at home and diuresis. Qualifiers: Respiratory failure complication: hypoxia and hypercapnia Qualified Code(s) : J96.21 - Acute and chronic respiratory failure with hypoxia; J96.22 - Acute and chronic respiratory failure with hypercapnia; J96.22 - Acute and chronic respiratory failure with hypercapnia; J96.22 - Acute and chronic respiratory failure with hypercapnia (2) Congestive heart failure Current Visit: No Status: Acute Assessment and plan: Continue diuresis tonight. Reassess tomorrow. Qualifiers: Congestive heart failure type: diastolic Congestive heart failure chronicity: acute on chronic Qualified Code(s): I50.33 - Acute on chronic diastolic (congestive) heart failure (3) COPD (chronic obstructive pulmonary disease) Current Visit: No Status: Chronic Assessment and plan: Mild exacerbation. Slowly improving as well. Continue aerosols, steroids and supportive care. Qualifiers: COPD type: COPD with acute exacerbation Qualified Code(s): J44.1 - Chronic obstructive pulmonary disease with (acute) exacerbation (4) Afib Current Visit: No Status: Chronic Assessment and plan: On Xarelto. Qualifiers: Atrial fibrillation type: paroxysmal Qualified Code(s): I48.0 - Paroxysmal atrial fibrillation (5) Type 2 diabetes mellitus Current Visit: No Status: Chronic Assessment and plan: Continue accucheck and coverage. 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 Qualifiers: Anemia type: other cause Other causes of anemia: chronic disease, other Qualified Code(s): D63.8 - Anemia in other chronic diseases classified elsewhere - Subjective Interval history: Mr Diaz is currently admitted for acute on chronic resp failure due to exac CHF. He remains moderate to high risk due to potential for worsening resp status. Mr Diaz is up eating breakfast. He feels he is breathing OK. No CP. SOB about the same. No fever or chills. - Constitutional Vitals: Temp Pulse Resp BP Pulse Ox 97.9 F 105 19 108/71 94 06/18/17 07:00 06/18/17 16:48 06/18/17 16:48 06/18/17 16:48 06/18/17 16:48 General appearance: Present: A&O X 3, obese, answers questions appropriately - Head Head exam: Present: normocephalic - Eye Eye exam: Present: conjuntiva pink - ENT ENT exam: Present: mucous membranes moist - Respiratory Respiratory exam: Present: rales. Absent: rhonchi, wheezes - Cardiovascular Cardiovascular exam: Present: irregular rhythm. Absent: tachycardia - GI/Abdominal GI/Abdominal exam: Present: soft. Absent: tenderness - Extremities Exam Extremities exam: Present: warm Additional comments: Wraps intact - Neurological Exam Neurological exam: Present: alert, oriented X3 - Skin Skin exam: Present: warm. Absent: rash Internal Medicine: Result - Labs CBC & Chem 7: 06/17/17 08:03 06/17/17 08:03 - ABG Interpretation ABG results: PT/INR, D-dimer PT 17.3 Seconds (9.4-12.1) H 06/17/17 01:03 Consult Discharge Plan - Plan Referrals: Damian Seymour MD [Primary Care Provider] -
[2017-06-19] MEDS: Ipratropium/Albuterol Neb 3 ML IH SCH ×5 (04:33→20:32)
[2017-06-19] MEDS: Budesonide/Formoterol 160/4.5 MDI IH SCH ×2 (07:38→20:32)
[2017-06-19] MEDS: Insulin LISPRO 300 UNITS/3 ML VIAL SQ SCH ×4 (07:55→21:00)
[2017-06-19] MEDS: Furosemide 100 MG/10 ML VIAL IVP SCH ×2 (08:01→19:58)
[2017-06-19] MEDS: Metoprolol XL (24 HR) Succ 50 MG TAB.ER.24H PO SCH (08:03)
[2017-06-19] MEDS: predniSONE 20 MG TABLET PO SCH (08:03)
[2017-06-19] MEDS: Aspirin 81 MG TAB.CHEW PO SCH (08:03)
[2017-06-19] MEDS: Diltiazem CD (24hr) 180 MG CAPSULE PO SCH ×2 (08:03→19:58)
[2017-06-19] MEDS: *HR* Amiodarone 200 MG TABLET PO SCH (08:03)
[2017-06-19 08:11] LABS: Hematocrit 26.5 % (37.5-50.1); Hemoglobin 7.7 g/dL (12.9-16.9); Mean Corpuscular HGB Conc 29.1 g/dL (31.6-35.5); Mean Corpuscular Hemoglobin 25.1 pg (28.0-33.3); Mean Corpuscular Volume 86.3 fL (83.0-100.0); Mean Platelet Volume 9.6 fL (9.4-12.4); Platelet Count 437 K/mcL (140-400); Red Blood Count 3.07 M/mcL (4.19-5.50); Red Cell Distribution Width 17.4 % (11.5-14.5)
[2017-06-19 08:27] LABS: Calcium 9.1 mg/dL (8.6-10.8); Magnesium 2.3 mg/dL (1.6-2.6); Potassium 4.1 mEq/L (3.5-4.5)
--- NOTE | 2017-06-19 14:14 | Internal Med Progress Note ---
Date of Encounter: 06/19/17 Time of Encounter: 10:30 - Assessment and plan (1) Acute and chronic respiratory failure Current Visit: Yes Status: Acute Assessment and plan: Continues to slowly improve with treatment. Wean oxygen as able. Continue bipap at night. Qualifiers: Respiratory failure complication: hypoxia and hypercapnia Qualified Code(s) : J96.21 - Acute and chronic respiratory failure with hypoxia; J96.22 - Acute and chronic respiratory failure with hypercapnia; J96.22 - Acute and chronic respiratory failure with hypercapnia; J96.22 - Acute and chronic respiratory failure with hypercapnia (2) Congestive heart failure Current Visit: No Status: Acute Assessment and plan: Seems to be slowly improving. Feels somewhat dizzy. Will decrease dosing. Qualifiers: Congestive heart failure type: diastolic Congestive heart failure chronicity: acute on chronic Qualified Code(s): I50.33 - Acute on chronic diastolic (congestive) heart failure (3) COPD (chronic obstructive pulmonary disease) Current Visit: No Status: Chronic Assessment and plan: Mild exacerbation. Slowly improving. Continue aerosols, steroids and supportive care. Qualifiers: COPD type: COPD with acute exacerbation Qualified Code(s): J44.1 - Chronic obstructive pulmonary disease with (acute) exacerbation (4) Anemia Current Visit: No Status: Chronic Assessment and plan: H/H lower today. Will recheck tomorrow. Had esophageal ulcers on EGD in April. May need transfusion. Continue PPI. Qualifiers: Anemia type: other cause Other causes of anemia: chronic disease, other Qualified Code(s): D63.8 - Anemia in other chronic diseases classified elsewhere (5) Afib Current Visit: No Status: Chronic Assessment and plan: On Xarelto. Qualifiers: Atrial fibrillation type: paroxysmal Qualified Code(s): I48.0 - Paroxysmal atrial fibrillation (6) Type 2 diabetes mellitus Current Visit: No Status: Chronic Assessment and plan: Continue accucheck and coverage. Qualifiers: Diabetes mellitus complication status: with hyperglycemia Diabetes mellitus [facility] insulin use: with historical site guide use Qualified Code(s): E11.65 - Type 2 diabetes mellitus with hyperglycemia; Z79.4 - long-term (current) use of insulin; Z79.4 - long-term (current) use of insulin; Z79.4 - survey coordinator ( current) use of insulin; Z79.4 - long-term (current) use of insulin (7) Morbid obesity with BMI of 40.0-44.9, adult Current Visit: No Status: Chronic Assessment and plan: Chronic issues - Subjective Interval history: Mr Diaz is currently admitted for acute on chronic resp failure due to exac CHF. He remains moderate to high risk due to potential for worsening resp status. Mr Diaz is up in chair. He says he is breathing OK but is dizzy when up and moving. Slept OK. No fever or chills. No GI issues. - Constitutional Vitals: Temp Pulse Resp BP Pulse Ox 97.6 F 76 16 101/73 96 06/19/17 03:49 06/19/17 07:00 06/19/17 11:16 06/19/17 07:00 06/19/17 11:16 General appearance: Present: A&O X 3, obese, answers questions appropriately - Head Head exam: Present: normocephalic - Eye Eye exam: Present: EOMI, conjuntiva pink - ENT ENT exam: Present: mucous membranes dry - Respiratory Respiratory exam: Present: decreased breath sounds, rales. Absent: rhonchi, wheezes - Cardiovascular Cardiovascular exam: Present: distant heart sounds. Absent: tachycardia - GI/Abdominal GI/Abdominal exam: Present: soft. Absent: tenderness - Extremities Exam Extremities exam: Present: warm. Absent: tenderness - Neurological Exam Neurological exam: Present: alert, oriented X3 - Skin Skin exam: Present: warm. Absent: rash Internal Medicine: Result - Labs CBC & Chem 7: 06/19/17 07:23 06/19/17 07:23 Labs: Short CBC 06/19/17 Range/Units 07:23 WBC 12.5 H (4.3-11.1) K/mcL Hgb 7.7 L (12.9-16.9) g/dL Hct 26.5 L (37.5-50.1) % Plt Count 437 H (140-400) K/mcL BMP 06/19/17 07:23 Sodium 138 Potassium 4.1 Chloride 99 Carbon Dioxide 29 BUN 46 H D Creatinine 1.58 H Glucose 303 H Calcium 9.1 - ABG Interpretation ABG results: PT/INR, D-dimer PT 17.3 Seconds (9.4-12.1) H 06/17/17 01:03 Consult Discharge Plan - Plan Referrals: Damian Seymour MD [Primary Care Provider] -
[2017-06-20] MEDS: Ipratropium/Albuterol Neb 3 ML IH SCH ×5 (00:08→15:59)
[2017-06-20 03:43] LABS: Hematocrit 26.1 % (37.5-50.1); Hemoglobin 7.8 g/dL (12.9-16.9); Mean Corpuscular HGB Conc 29.9 g/dL (31.6-35.5); Mean Corpuscular Hemoglobin 25.4 pg (28.0-33.3); Mean Platelet Volume 9.6 fL (9.4-12.4); Platelet Count 374 K/mcL (140-400); Red Blood Count 3.07 M/mcL (4.19-5.50); Red Cell Distribution Width 17.3 % (11.5-14.5)
[2017-06-20 03:53] LABS: Calcium 8.9 mg/dL (8.6-10.8); Magnesium 2.1 mg/dL (1.6-2.6); Potassium 3.9 mEq/L (3.5-4.5)
[2017-06-20] MEDS: Furosemide 100 MG/10 ML VIAL IVP SCH (07:38)
[2017-06-20] MEDS: Metoprolol XL (24 HR) Succ 50 MG TAB.ER.24H PO SCH (07:39)
[2017-06-20] MEDS: *HR* Amiodarone 200 MG TABLET PO SCH (07:39)
[2017-06-20] MEDS: Diltiazem CD (24hr) 180 MG CAPSULE PO SCH (07:39)
[2017-06-20] MEDS: predniSONE 20 MG TABLET PO SCH (07:39)
[2017-06-20] MEDS: Aspirin 81 MG TAB.CHEW PO SCH (07:40)
[2017-06-20] MEDS: Insulin LISPRO 300 UNITS/3 ML VIAL SQ SCH (07:48)
[2017-06-20] MEDS: Budesonide/Formoterol 160/4.5 MDI IH SCH (07:52)
[2017-06-20] MEDS ORDERED: Insulin LISPRO 300 UNITS/3 ML VIAL SQ SCH (09:59)
--- NOTE | 2017-06-20 10:12 | Discharge Summary ---
<Jarad Steen - Last Filed: 06/20/17 13:57> Date of Encounter: 06/20/17 Time of Encounter: 10:10 - Discharge Diagnosis (1) Acute and chronic respiratory failure Priority: Primary Status: Acute Qualifiers: Respiratory failure complication: hypoxia and hypercapnia Qualified Code(s) : J96.21 - Acute and chronic respiratory failure with hypoxia; J96.22 - Acute and chronic respiratory failure with hypercapnia; J96.22 - Acute and chronic respiratory failure with hypercapnia; J96.22 - Acute and chronic respiratory failure with hypercapnia (2) Congestive heart failure Priority: Secondary Status: Acute Qualifiers: Congestive heart failure type: diastolic Congestive heart failure chronicity: acute on chronic Qualified Code(s): I50.33 - Acute on chronic diastolic (congestive) heart failure (3) COPD (chronic obstructive pulmonary disease) Priority: Secondary Status: Chronic Qualifiers: COPD type: COPD with acute exacerbation Qualified Code(s): J44.1 - Chronic obstructive pulmonary disease with (acute) exacerbation (4) Anemia Priority: Secondary Status: Chronic Qualifiers: Anemia type: other cause Other causes of anemia: chronic disease, other Qualified Code(s): D63.8 - Anemia in other chronic diseases classified elsewhere (5) Afib Priority: Secondary Status: Chronic Qualifiers: Atrial fibrillation type: paroxysmal Qualified Code(s): I48.0 - Paroxysmal atrial fibrillation (6) Type 2 diabetes mellitus Priority: Secondary Status: Chronic Qualifiers: Diabetes mellitus complication status: with hyperglycemia Diabetes mellitus snf insulin use: with extermination inspector use Qualified Code(s): E11.65 - Type 2 diabetes mellitus with hyperglycemia; Z79.4 - long-term (current) use of insulin; Z79.4 - extermination inspector (current) use of insulin; Z79.4 - long-term ( current) use of insulin; Z79.4 - long-term (current) use of insulin (7) Morbid obesity with BMI of 40.0-44.9, adult Priority: Secondary Status: Chronic - Discharge Medications Prescriptions: predniSONE [PredniSONE] 40 mg PO DAILY #4 tablet Home Medications: Amiodarone [Cordarone] 200 mg PO DAILY 04/28/15 [History] Aspirin 81 mg PO DAILY 04/28/15 [History] Atorvastatin [Lipitor] 40 mg PO HS 04/28/15 [History] Citalopram [CeleXA] 20 mg PO DAILY 04/28/15 [History] Ferrous Sulfate 325 mg PO DAILY 04/28/15 [History] Albuterol Sulfate [Proair Hfa] 2 puff IH Q4H PRN 01/25/17 [History] Metoprolol Succinate 200 mg PO DAILY 01/25/17 [History] Oxygen 2 l NS CONT 02/03/17 [History] Dextrose Gel [Gluctose] 30 gm PO ONCE PRN #0 gel..gram. 02/23/17 [Rx] Glucagon, Human Recombinant [Glucagen] 1 mg IM ONCE PRN #0 vial 02/23/17 [Rx] Nitroglycerin 0.4 mg SL Q5MIN PRN #0 tab.subl 02/23/17 [Rx] Tiotropium [Spiriva] 18 mcg IH 0800 #30 inh 02/23/17 [Rx] metFORMIN [Glucophage] 1,000 mg PO BIDWM tablet 02/23/17 [Rx] Diltiazem HCl [Diltiazem 24Hr Cd] 180 mg PO BID 04/06/17 [History] Insulin LISPRO [HumaLOG] 4 - 8 units SQ TIDWM 04/06/17 [History] Meclizine HCl [Verticalm] 25 mg PO QID PRN 04/06/17 [History] Rivaroxaban [Xarelto] 20 mg PO DAILY 04/06/17 [History] Ergocalciferol (VITAMIN D2) [Vitamin D2] 50,000 unit PO QWEEK 06/17/17 [History] Fluticasone/Vilanterol [Breo Ellipta 100-25 Mcg INH] 1 each IH DAILY 06/17/17 [ History] Furosemide [Lasix] 80 mg PO BID 06/17/17 [History] Insulin Glargine,Hum.rec.anlog [Basaglar Kwikpen U-100] 35 unit SQ BID 06/17/17 [History] Linagliptin [Tradjenta] 5 mg PO DAILY 06/17/17 [History] Loperamide HCl [Imodium A-D] 2 mg PO Q6H PRN 06/17/17 [History] [place]-3/Dha/Epa/Fish Oil [Fish Oil 1,000 mg Softgel] 1,000 mg PO DAILY 06/17/17 [History] Omeprazole [PriLOSEC] 40 mg PO BID 06/17/17 [History] Potassium Chloride 8 meq PO BID 06/17/17 [History] Spironolactone [Aldactone] 25 mg PO DAILY 06/17/17 [History] Tolnaftate [Antifungal Cream] 1 appl TP BID PRN 06/17/17 [History] Budesonide/Formoterol 160/4.5 [Symbicort 160/4.5] 2 puff IH BIDR inhaler [Rx] Omeprazole [PriLOSEC] 40 mg PO DAILY capsule. 06/20/17 [Rx] predniSONE [PredniSONE] 40 mg PO DAILY #4 tablet 06/20/17 [Rx] Allergies/Adverse Reactions: 3 Allergy/AdvReac Type Severity Reaction Status Date / Time bupropion [From Wellbutrin] Allergy Difficulty Verified 06/17/17 00:14 Breathing codeine Allergy Difficulty Verified 06/17/17 00:14 Breathing Opioids-Meperidine and Allergy Difficulty Verified 06/17/17 00:14 Related Breathing [Opioids-Meperidine & Related] Date of admission: 06/17/17 07:41 Primary care physician: Damian Seymour, Consults: 06/17/17 07:46 Consult to Occupational Therapy [CONS] Routine Comment: Evaluate, develop and implement POC Reason for Consult: weakness Consult to Physical Therapy [CONS] Routine Comment: Evaluate, develop and implement POC Reason for Consult: weakness Discharging clinician: Jarad Steen Anticipated date of discharge: 06/20/17 - Patient Status Disposition: Home Health Service Condition: Fair Functional capacity at discharge: uses cane/walker Overall status at discharge: patient is not back to baseline - Discharge Instructions Follow Up With: Damian Seymour MD [Primary Care Provider] - Additional Instructions: Patient should follow up with primary care provider within 1-2 weeks May need adjustment of furosemide dose, as well as insulin regimen Patient should avoid sodium in his diet - Diet and Activity Activity: as per physical therapy Diet: diabetic diet, low salt diet Hospital course: Mr. Diaz is a 71 year old male with multiple medical problems including COPD on 3 L O2, congestive heart prayer, obstructive sleep apnea on CPAP, liver cirrhosis status post paracentesis 3 days ago. The patient presented to the emergency room with complaint of shortness of breath and increased swelling in lower extremities bilaterally. Also complaining that he was having difficulty laying flat without becoming short of breath. She received chest x-ray in the ED demonstrated pulmonary edema with progressive right-sided pleuroparenchymal disease. He was admitted to the hospital for treatment of acute exacerbation of CHF. In the hospital he received aggressive fluid diuresis, as well as BiPAP therapy. Over the course of his stay his breathing became increasingly easier with diuresis, is now stable for discharge. - Time Spent with Patient Total time spent providing and/or coordinating discharge services: - Constitutional Vitals: Temp Pulse Resp BP Pulse Ox 98.2 F 77 20 129/79 98 06/20/17 04:05 06/20/17 04:05 06/20/17 07:52 06/20/17 04:05 06/20/17 07:52 General appearance: Present: A&O X 3, obese, answers questions appropriately Exam: - Head Head exam: Present: normocephalic - Eye Eye exam: Present: EOMI, conjuntiva pink - ENT ENT exam: Present: mucous membranes dry - Respiratory Respiratory exam: Present: decreased breath sounds, rales. Absent: rhonchi, wheezes - Cardiovascular Cardiovascular exam: Present: distant heart sounds. Absent: tachycardia - GI/Abdominal GI/Abdominal exam: Present: soft. Absent: tenderness - Extremities Exam Extremities exam: Present: warm. Absent: tenderness - Neurological Exam Neurological exam: Present: alert, oriented X3 - Skin Skin exam: Present: warm. Absent: rash <Naresh Baldwin - Last Filed: 06/20/17 15:02> Date of Encounter: 06/20/17 - Discharge Diagnosis (1) Acute and chronic respiratory failure Status: Acute Qualifiers: Respiratory failure complication: hypoxia and hypercapnia Qualified Code(s) : J96.21 - Acute and chronic respiratory failure with hypoxia; J96.22 - Acute and chronic respiratory failure with hypercapnia; J96.22 - Acute and chronic respiratory failure with hypercapnia; J96.22 - Acute and chronic respiratory failure with hypercapnia (2) Congestive heart failure Status: Acute Qualifiers: Congestive heart failure type: diastolic Congestive heart failure chronicity: acute on chronic Qualified Code(s): I50.33 - Acute on chronic diastolic (congestive) heart failure (3) COPD (chronic obstructive pulmonary disease) Status: Chronic Qualifiers: COPD type: COPD with acute exacerbation Qualified Code(s): J44.1 - Chronic obstructive pulmonary disease with (acute) exacerbation (4) Anemia Status: Chronic Qualifiers: Anemia type: other cause Other causes of anemia: chronic disease, other Qualified Code(s): D63.8 - Anemia in other chronic diseases classified elsewhere (5) Afib Status: Chronic Qualifiers: Atrial fibrillation type: paroxysmal Qualified Code(s): I48.0 - Paroxysmal atrial fibrillation (6) Type 2 diabetes mellitus Status: Chronic Qualifiers: Diabetes mellitus complication status: with hyperglycemia Diabetes mellitus snf insulin use: with extermination inspector use Qualified Code(s): E11.65 - Type 2 diabetes mellitus with hyperglycemia; Z79.4 - extermination inspector (current) use of insulin; Z79.4 - long-term (current) use of insulin; Z79.4 - extermination inspector ( current) use of insulin; Z79.4 - extermination inspector (current) use of insulin (7) Morbid obesity with BMI of 40.0-44.9, adult Status: Chronic Date of admission: 06/17/17 07:41 Primary care physician: Damian Seymuor, Consults: 06/17/17 07:46 Consult to Occupational Therapy [CONS] Routine Comment: Evaluate, develop and implement POC Reason for Consult: weakness Consult to Physical Therapy [CONS] Routine Comment: Evaluate, develop and implement POC Reason for Consult: weakness Hospital course: Mr. Diaz is a 71 year old male - Time Spent with Patient Total time spent providing and/or coordinating discharge services: 39min - Constitutional Vitals: Temp Pulse Resp BP Pulse Ox 98.2 F 82 16 100/77 93 06/20/17 10:33 06/20/17 10:33 06/20/17 11:38 06/20/17 10:33 06/20/17 11:38 - Attending Attestation I examined this patient and my medical decision-making was reviewed with the Resident Physician on 06/20/17. I agree with the documented findings, disposition and treatment plan as described except to the extent set forth below. Mr Diaz has been admitted for acute resp failure due to exac CHF/COPD. He has improved with diuresis and feels like he is about near his baseline. He is afebrile with stable vitals. He has been seen by PT and OT and has been recommended to have home care. Exam Alert. Comfortable up in chair. Mucus membranes dry Heart distant and not tachy Lungs diminished without rales, rhonchi, wheeze Abd soft Edema present. Plan D/C home today with HHC Follow up with PCP.
[2017-06-20 10:34] VITALS: BP 100/77
--- NOTE | 2017-06-20 13:57 | Physician Discharge Referral ---
Home Health/Hosp Referral Info Transfer to: Hospice Attending Provider: Naresh Baldwin Provider in Charge Post Discharge: Email Specialist - Diagnosis (1) Acute and chronic respiratory failure Priority: Primary Status: Acute (2) Congestive heart failure Priority: Secondary Status: Acute (3) COPD (chronic obstructive pulmonary disease) Priority: Secondary Status: Chronic (4) Anemia Priority: Secondary Status: Chronic (5) Afib Priority: Secondary Status: Chronic (6) Type 2 diabetes mellitus Priority: Secondary Status: Chronic (7) Morbid obesity with BMI of 40.0-44.9, adult Priority: Secondary Status: Chronic - Respiratory Orders Oxygen / L per min (continue home dose) Smoking Cessation: Smoking cessation has been advised. For more information, call the [place] Tobacco Quit Line at 0-775-GSJB-NOW. - Diet/Nutrition Diet/Nutrition Orders: No Added Salt (LAMINE), No Concentrated Sweets - Activity Activity Orders: Walker - Services Needed Following services are medically necessary services: Home Health Aide, Physical Therapy, Occupational Therapy - Transfer Medications Prescriptions: predniSONE [PredniSONE] 40 mg PO DAILY #4 tablet Home Medications: Amiodarone [Cordarone] 200 mg PO DAILY 04/28/15 [History] Aspirin 81 mg PO DAILY 04/28/15 [History] Atorvastatin [Lipitor] 40 mg PO HS 04/28/15 [History] Citalopram [CeleXA] 20 mg PO DAILY 04/28/15 [History] Ferrous Sulfate 325 mg PO DAILY 04/28/15 [History] Albuterol Sulfate [Proair Hfa] 2 puff IH Q4H PRN 01/25/17 [History] Metoprolol Succinate 200 mg PO DAILY 01/25/17 [History] Oxygen 2 l NS CONT 02/03/17 [History] Dextrose Gel [Gluctose] 30 gm PO ONCE PRN #0 gel..gram. 02/23/17 [Rx] Glucagon, Human Recombinant [Glucagen] 1 mg IM ONCE PRN #0 vial 02/23/17 [Rx] Nitroglycerin 0.4 mg SL Q5MIN PRN #0 tab.subl 02/23/17 [Rx] Tiotropium [Spiriva] 18 mcg IH 0800 #30 inh 02/23/17 [Rx] metFORMIN [Glucophage] 1,000 mg PO BIDWM tablet 02/23/17 [Rx] Diltiazem HCl [Diltiazem 24Hr Cd] 180 mg PO BID 04/06/17 [History] Insulin LISPRO [HumaLOG] 4 - 8 units SQ TIDWM 04/06/17 [History] Meclizine HCl [Verticalm] 25 mg PO QID PRN 04/06/17 [History] Rivaroxaban [Xarelto] 20 mg PO DAILY 04/06/17 [History] Ergocalciferol (VITAMIN D2) [Vitamin D2] 50,000 unit PO QWEEK 06/17/17 [History] Fluticasone/Vilanterol [Breo Ellipta 100-25 Mcg INH] 1 each IH DAILY 06/17/17 [ History] Furosemide [Lasix] 80 mg PO BID 06/17/17 [History] Insulin Glargine,Hum.rec.anlog [Basaglar Kwikpen U-100] 35 unit SQ BID 06/17/17 [History] Linagliptin [Tradjenta] 5 mg PO DAILY 06/17/17 [History] Loperamide HCl [Imodium A-D] 2 mg PO Q6H PRN 06/17/17 [History] [place]-3/Dha/Epa/Fish Oil [Fish Oil 1,000 mg Softgel] 1,000 mg PO DAILY 06/17/17 [History] Omeprazole [PriLOSEC] 40 mg PO BID 06/17/17 [History] Potassium Chloride 8 meq PO BID 06/17/17 [History] Spironolactone [Aldactone] 25 mg PO DAILY 06/17/17 [History] Tolnaftate [Antifungal Cream] 1 appl TP BID PRN 06/17/17 [History] Budesonide/Formoterol 160/4.5 [Symbicort 160/4.5] 2 puff IH BIDR inhaler [Rx] Omeprazole [PriLOSEC] 40 mg PO DAILY capsule. 06/20/17 [Rx] predniSONE [PredniSONE] 40 mg PO DAILY #4 tablet 06/20/17 [Rx] Allergies/Adverse Reactions: 3 Allergy/AdvReac Type Severity Reaction Status Date / Time bupropion [From Wellbutrin] Allergy Difficulty Verified 06/17/17 00:14 Breathing codeine Allergy Difficulty Verified 06/17/17 00:14 Breathing Opioids-Meperidine and Allergy Difficulty Verified 06/17/17 00:14 Related Breathing [Opioids-Meperidine & Related] Certification: Further, I certify that my clinical findings support that this patient is homebound (i.e. absences from home require considerable and taxing effort and are for medical reasons or adventist services or infrequently or short duration when for other reasons) because: Homebound Reason: Severity of cardiac or pulmonary status limits activity tolerance Attestation: My signature below is to certify that this patient is under my care and that I, or nurse practitioner, or a physician's mechanic's assistant working with me, has a face-to -face encounter with this patient.
--- NOTE | 2017-06-20 17:51 | Electrocardiograph Report ---
[address] [address] Test Date: 2017-06-17 Pat Name: Jaime Diaz Department: 103 Room: 2NE32 Gender: M [employer]: [facility] : 1945 Requested By: Agnieszka Linder Order Number: [id number] Reading MD: Michele Santana MD Measurements Intervals [place] Rate: 104 P: 4 IN: 275 QRS: 119 QRSD: 196 T: -53 QT: 433 QTc: 493 Interpretive Statements SINUS TACHYCARDIA WITH FIRST DEGREE AV BLOCK LEFT ATRIAL ABNORMALITY MARKED RIGHT AXIS DEVIATION MARKED RIGHT BUNDLE BRANCH BLOCK Electronically Signed On 06-20-2017 17:49:48 EDT by Michele Santana MD
== END 2017-06-20 16:20 | disposition home health service (06) | DRG 291 ==
LOC: 2NENU 00:10 → EMEROO 00:10 → 2NENU 02:52
PROVIDERS: ADMIT Family Medicine; ATTEND Internal Medicine

== ENCOUNTER 2017-06-30 23:29 | Inpatient (IN) ==
[2017-06-30] MEDS ORDERED: Ipratropium/Albuterol Neb 3 ML IH ONE (23:59)
[2017-07-01] LABS: Basophils % 0.2 %; Eosinophils # 0.2 K/mcL (0.0-0.6); Eosinophils % 1.5 %; Hematocrit 28.1 % (37.5-50.1); Hemoglobin 8.4 g/dL (12.9-16.9); Immature Granulocytes % 0.4 % (0-4); Lymphocytes # 0.7 K/mcL (0.6-4.6); Lymphocytes % 5.5 %; Mean Corpuscular HGB Conc 29.9 g/dL (31.6-35.5); Mean Corpuscular Hemoglobin 25.5 pg (28.0-33.3); Mean Corpuscular Volume 85.4 fL (83.0-100.0); Mean Platelet Volume 10.4 fL (9.4-12.4); Monocytes % 8.1 %; Neutrophils # 10.4 K/mcL (1.6-8.9); Platelet Count 323 K/mcL (140-400); Red Blood Count 3.29 M/mcL (4.19-5.50); Red Cell Distribution Width 18.1 % (11.5-14.5); Segmented Neutrophils % 84.3 %
[2017-07-01 00:08] LABS: BUN/Creatinine Ratio 18 (6-26); Blood Urea Nitrogen 24 mg/dL (8-26); Calcium 8.7 mg/dL (8.6-10.8); Carbon Dioxide 24 mEq/L (19-29); Chloride 99 mEq/L (98-109); Glucose 363 mg/dL (70-99); Osmolality,Calculated 297 (280-300); Sodium 134 mEq/L (136-145); eGFR For African Americans > 60 (> 60); eGFR For Non-African Americans 53 (> 60)
[2017-07-01 00:11] LABS: INR 1.4; Prothrombin Time 15.6 Seconds (9.4-12.1)
[2017-07-01 00:12] LABS: Potassium 4.5 mEq/L (3.5-4.5)
[2017-07-01 00:14] LABS: Activated Partial Thrombo Time 28.7 Seconds (26.0-36.0)
[2017-07-01 00:20] LABS: Bilirubin,Urine Negative (Negative); Blood,Urine Small (Negative); Clarity,Urine Cloudy (Clear); Color,Urine Yellow (Yellow); Glucose,Urine (UA) 250 mg/dL (Normal); Ketones,Urine Negative (Negative); Leukocyte Esterase,Urine Moderate (Negative); Nitrite,Urine Positive (Negative); PH,Urine 6.5 pH Units (5.0-8.0); Protein,Urine Negative (Neg-Trace); Specific Gravity,Urine 1.014 (1.010-1.025)
[2017-07-01] MEDS ORDERED: 0.9 % Sodium Chloride 1,000 ML IVC ONE (00:26)
[2017-07-01 00:31] LABS: Bacteria,Urine Many per hpf (None-Few); Hyaline Casts,Urine Few per lpf (None-Few); WBC,Urine 15-30 per hpf (0-3)
[2017-07-01 00:32] LABS: Squamous Epithelial Cell,Urine Few per lpf (None-Few)
--- NOTE | 2017-07-01 00:39 | Emergency Department Note ---
START Narrative - START START: I examined this patient and my medical decision-making was reviewed with the Resident Physician. I agree with the documented findings, disposition and treatment plan as described except to the extent set forth below. 71-year-old male presents emergency room for shortness of breath. History of COPD. On home oxygen. Patient presents with worsening shortness of breath and some chest pressure as well as increasing peripheral swelling specifically in his legs. He has got some leg wounds that are wrapped up at this time. He does wear home oxygen again at 3 L. His chest x-ray was concerning for pulmonary edema as well as some possible airspace disease in the right side. We have ordered a CT of the chest to evaluate this. Patient will need to be admitted for further workup of this pulmonary edema as well as shortness of breath and potential congestive heart failure picture.
--- NOTE | 2017-07-01 00:52 | Emergency Department Note ---
Disposition Clinical Impression: Community acquired pneumonia, Acute exacerbation of chronic obstructive airways disease Acute congestive heart failure Qualifiers: Congestive heart failure type: unspecified congestive heart failure type Qualified Code(s): I50.9 - Heart failure, unspecified Chronic respiratory failure Qualifiers: Respiratory failure complication: hypoxia Qualified Code(s): J96.11 - Chronic respiratory failure with hypoxia Afib Qualifiers: Atrial fibrillation type: paroxysmal Qualified Code(s): I48.0 - Paroxysmal atrial fibrillation Disposition: Admitted As Inpatient Condition: Fair Time of Disposition: 02:37 SOB HPI - General Chief Complaint: ED Shortness of Breath/Dyspnea Stated Complaint: WESLEY Time Seen by Provider: 06/30/17 23:31 Source: patient, EMS Limitations: no limitations Nursing Notes Reviewed: Yes Vital Signs Reviewed: Yes - History of Present Illness Patient presenting to the ED via EMS for shortness of breath. Patient presenting from home with a history of COPD and CHF. Patient states that he started feeling more short of breath today than usual despite his normal 3 L of oxygen. Otherwise patient is a relatively poor historian and does not know any of his medications or his medical history. States he has been more forgetful over the last year or so. Denies any pain in his chest. - Related Data Home Medications Medication Instructions Recorded Confirmed Amiodarone [Cordarone] 200 mg PO DAILY 04/28/15 06/17/17 Aspirin 81 mg PO DAILY 04/28/15 06/17/17 Atorvastatin [Lipitor] 40 mg PO HS 04/28/15 06/17/17 Citalopram [CeleXA] 20 mg PO DAILY 04/28/15 06/17/17 Ferrous Sulfate 325 mg PO DAILY 04/28/15 06/17/17 Albuterol Sulfate [Proair Hfa] 2 puff IH Q4H PRN 01/25/17 06/17/17 Metoprolol Succinate 200 mg PO DAILY 01/25/17 06/17/17 Oxygen 2 l NS CONT 02/03/17 06/17/17 Diltiazem HCl [Diltiazem 24Hr Cd] 180 mg PO BID 04/06/17 06/17/17 Insulin LISPRO [HumaLOG] 4 - 8 units SQ TIDWM 04/06/17 06/17/17 Meclizine HCl [Verticalm] 25 mg PO QID PRN 04/06/17 06/17/17 Rivaroxaban [Xarelto] 20 mg PO DAILY 04/06/17 06/17/17 Ergocalciferol (VITAMIN D2) 50,000 unit PO QWEEK 06/17/17 06/17/17 [Vitamin D2] Fluticasone/Vilanterol [Breo 1 each IH DAILY 06/17/17 06/17/17 Ellipta 100-25 Mcg INH] Furosemide [Lasix] 80 mg PO BID 06/17/17 06/17/17 Insulin Glargine,Hum.rec.anlog 35 unit SQ BID 06/17/17 06/17/17 [Basaglar Kwikpen U-100] Linagliptin [Tradjenta] 5 mg PO DAILY 06/17/17 06/17/17 Loperamide HCl [Imodium A-D] 2 mg PO Q6H PRN 06/17/17 06/17/17 [place]-3/Dha/Epa/Fish Oil [Fish Oil 1,000 mg PO DAILY 06/17/17 06/17/17 1,000 mg Softgel] Omeprazole [PriLOSEC] 40 mg PO BID 06/17/17 06/17/17 Potassium Chloride 8 meq PO BID 06/17/17 06/17/17 Spironolactone [Aldactone] 25 mg PO DAILY 06/17/17 06/17/17 Tolnaftate [Antifungal Cream] 1 appl TP BID PRN 06/17/17 06/17/17 Previous Rx's Medication Instructions Recorded Dextrose Gel [Gluctose] 30 gm PO ONCE PRN #0 gel..gram. 02/23/17 Glucagon, Human Recombinant 1 mg IM ONCE PRN #0 vial 02/23/17 [Glucagen] Nitroglycerin 0.4 mg SL Q5MIN PRN #0 tab.subl 02/23/17 Tiotropium [Spiriva] 18 mcg IH 0800 #30 inh 02/23/17 metFORMIN [Glucophage] 1,000 mg PO BIDWM tablet 02/23/17 Budesonide/Formoterol 160/4.5 2 puff IH BIDR inhaler 06/20/17 [Symbicort 160/4.5] Omeprazole [PriLOSEC] 40 mg PO DAILY capsule. 06/20/17 predniSONE [PredniSONE] 40 mg PO DAILY #4 tablet 06/20/17 Allergies Allergy/AdvReac Type Severity Reaction Status Date / Time bupropion [From Wellbutrin] Allergy Difficulty Verified 06/17/17 00:14 Breathing codeine Allergy Difficulty Verified 06/17/17 00:14 Breathing Opioids-Meperidine and Allergy Difficulty Verified 06/17/17 00:14 Related Breathing [Opioids-Meperidine & Related] All systems ED: reviewed and negative except as stated. Constitutional: Denies: fever Cardiovascular: Reports: dyspnea on exertion, edema, other (Swelling in his bilateral lower extremities, chronic venous stasis ulcers). Denies: chest pain , palpitations Respiratory: Reports: cough, dyspnea Gastrointestinal: Denies: vomiting Past Medical History - Past Medical History Attestation: Yes The following information was validated with the patient. Source: old records reviewed Medical history: Reports: arthritis, atrial fibrillation, CHF, COPD, diabetes, hyperlipidemia, hypertension, liver disease, renal disease Surgical history: Reports: orthopedic, other, pacemaker/AICD Psychiatric history: Reports: no psych history - Social History Smoking Status: Former smoker Smokeless Tobacco Status: No Alcohol use: Reports: none Drug use: Reports: none Physical Exam - General Limitations: no limitations General appearance: alert, in no apparent distress, obese - Head Head exam: atraumatic, normocephalic, normal inspection - Eye Eye exam: Present: normal appearance, PERRL, EOMI, other (Slight exophthalmus) - ENT ENT exam: normal exam, normal oropharynx, mucous membranes moist - Neck Neck exam: Present: normal inspection, full ROM, trachea midline - Chest Chest inspection: Present: normal inspection, symmetric chest wall rise - Respiratory Respiratory exam: Present: other (Decreased breath sounds bilaterally, trace Rales bilateral bases). Absent: normal lung sounds bilaterally, respiratory distress - Cardiovascular Cardiovascular exam: Present: normal rhythm, tachycardia, normal heart sounds - Abdominal Exam Abdominal exam: Present: soft, other (Morbid obesity). Absent: tenderness - Extremities Exam Extremities exam: Present: pedal edema (Significant bilateral pitting edema with rapid wounds, wounds were unwrapped and evaluated, chronic-appearing ulcerations present. Patient states at baseline) - Neurological Exam Neurological exam: Present: alert. Absent: oriented X3 (Oriented to person and place but not time) - Psychiatric Psychiatric exam: Present: normal affect, normal mood - Skin Skin exam: Present: warm, dry. Absent: intact (Scattered ulcerations to lower extremity) Course Course Narrative: Patient presenting with shortness breath. Differential including CHF, COPD, pneumonia and PE. We will check labs and likely CTA chest. - Reevaluation(s) Reevaluation #1: Chest x-ray shows possible pneumonia. Patient still short of breath, slightly tachycardic and hypoxic. We will CTA to rule out PE CTA is negative for PE but does show pneumonia. We will start on antibiotics and admit for CHF exacerbation, pneumonia, urinary tract infection. Patient has chronic A. fib Vital Signs Temperature 97.9 F 06/30/17 23:33 Pulse Rate 101 06/30/17 23:33 Respiratory Rate 20 06/30/17 23:33 Blood Pressure 120/101 06/30/17 23:33 O2 Sat by Pulse Oximetry 95 06/30/17 23:33 Temperature 97.9 F 06/30/17 23:33 Pulse Rate 103 07/01/17 01:01 Respiratory Rate 22 07/01/17 01:01 Blood Pressure 131/88 07/01/17 01:01 O2 Sat by Pulse Oximetry 95 07/01/17 01:01 Oxygen Delivery Oxygen Delivery Nasal Cannula Shortness of Breath/Dyspnea - Medical Records Medical records reviewed: Yes I reviewed the patient's medical records. - Lab Data Lab results reviewed: Yes I reviewed the patient's lab results. Result diagrams: 06/30/17 23:25 06/30/17 23:25 Lab Results 06/30/17 06/30/17 06/30/17 Range/Units 23:25 23:25 23:25 WBC 12.3 H (4.3-11.1) K/mcL RBC 3.29 L (4.19-5.50) M/mcL Hgb 8.4 L (12.9-16.9) g/dL Hct 28.1 L (37.5-50.1) % MCV 85.4 (83.0-100.0) fL MCH 25.5 L (28.0-33.3) pg MCHC 29.9 L (31.6-35.5) g/dL RDW 18.1 H (11.5-14.5) % Plt Count 323 (140-400) K/mcL MPV 10.4 (9.4-12.4) fL Immature Gran % 0.4 (0-4) % Seg Neutrophils % 84.3 % Lymphocytes % 5.5 % Monocytes % 8.1 % Eosinophils % 1.5 % Basophils % 0.2 % Neutrophils # 10.4 H (1.6-8.9) K/mcL Lymphocytes # 0.7 (0.6-4.6) K/mcL Monocytes # 1.0 (0.0-1.3) K/mcL Eosinophils # 0.2 (0.0-0.6) K/mcL Basophils # 0.0 (0.0-0.2) K/mcL PT (9.4-12.1) Seconds INR APTT (26.0-36.0) Seconds Sodium 134 L (136-145) mEq/L Potassium 4.5 (3.5-4.5) mEq/L Chloride 99 (98-109) mEq/L Carbon Dioxide 24 (19-29) mEq/L BUN 24 (8-26) mg/dL Creatinine 1.33 H (0.72-1.25) mg/dL Est GFR ( Amer) > 60 (> 60) Est GFR (Non-Af Amer) 53 L (> 60) BUN/Creatinine Ratio 18 (6-26) Glucose 363 H (70-99) mg/dL Calculated Osmolality 297 (280-300) Lactic Acid (0.5-2.2) mmol/L Calcium 8.7 (8.6-10.8) mg/dL Troponin I 0.01 (0-0.03) ng/mL B-Natriuretic Peptide (0-100) pg/mL Urine Color (Yellow) Urine Clarity (Clear) Urine pH (5.0-8.0) pH Units Ur Specific [place] (1.010-1.025) Urine Protein (Neg-Trace) mg/dL Urine Glucose (UA) (Normal) mg/dL Urine Ketones (Negative) mg/dL Urine Blood (Negative) Urine Nitrite (Negative) Urine Bilirubin (Negative) Urine Urobilinogen (Normal) mg/dL Ur Leukocyte Esterase (Negative) Urine Microscopic RBC (0-3) per hpf Urine Microscopic WBC (0-3) per hpf Ur Squamous Epith Cells (None-Few) per lpf Urine Bacteria (None-Few) per hpf Hyaline Casts (None-Few) per lpf Ur Culture Indicated? (NO) 06/30/17 06/30/1707/01/17 Range/Units 23:25 23:25 00:13 WBC (4.3-11.1) K/mcL RBC (4.19-5.50) M/mcL Hgb (12.9-16.9) g/dL Hct (37.5-50.1) % MCV (83.0-100.0) fL MCH (28.0-33.3) pg MCHC (31.6-35.5) g/dL RDW (11.5-14.5) % Plt Count (140-400) K/mcL MPV (9.4-12.4) fL Immature Gran % (0-4) % Seg Neutrophils % % Lymphocytes % % Monocytes % % Eosinophils % % Basophils % % Neutrophils # (1.6-8.9) K/mcL Lymphocytes # (0.6-4.6) K/mcL Monocytes # (0.0-1.3) K/mcL Eosinophils # (0.0-0.6) K/mcL Basophils # (0.0-0.2) K/mcL PT 15.6 H (9.4-12.1) Seconds INR 1.4 APTT 28.7 (26.0-36.0) Seconds Sodium (136-145) mEq/L Potassium (3.5-4.5) mEq/L Chloride (98-109) mEq/L Carbon Dioxide (19-29) mEq/L BUN (8-26) mg/dL Creatinine (0.72-1.25) mg/dL Est GFR ( Amer) (> 60) Est GFR (Non-Af Amer) (> 60) BUN/Creatinine Ratio (6-26) Glucose (70-99) mg/dL Calculated Osmolality (280-300) Lactic Acid 2.5 H (0.5-2.2) mmol/L Calcium (8.6-10.8) mg/dL Troponin I (0-0.03) ng/mL B-Natriuretic Peptide 674 H (0-100) pg/mL Urine Color (Yellow) Urine Clarity (Clear) Urine pH (5.0-8.0) pH Units Ur Specific [place] (1.010-1.025) Urine Protein (Neg-Trace) mg/dL Urine Glucose (UA) (Normal) mg/dL Urine Ketones (Negative) mg/dL Urine Blood (Negative) Urine Nitrite (Negative) Urine Bilirubin (Negative) Urine Urobilinogen (Normal) mg/dL Ur Leukocyte Esterase (Negative) Urine Microscopic RBC (0-3) per hpf Urine Microscopic WBC (0-3) per hpf Ur Squamous Epith Cells (None-Few) per lpf Urine Bacteria (None-Few) per hpf Hyaline Casts (None-Few) per lpf Ur Culture Indicated? (NO) 07/01/17 Range/Units 00:13 WBC (4.3-11.1) K/mcL RBC (4.19-5.50) M/mcL Hgb (12.9-16.9) g/dL Hct (37.5-50.1) % MCV (83.0-100.0) fL MCH (28.0-33.3) pg MCHC (31.6-35.5) g/dL RDW (11.5-14.5) % Plt Count (140-400) K/mcL MPV (9.4-12.4) fL Immature Gran % (0-4) % Seg Neutrophils % % Lymphocytes % % Monocytes % % Eosinophils % % Basophils % % Neutrophils # (1.6-8.9) K/mcL Lymphocytes # (0.6-4.6) K/mcL Monocytes # (0.0-1.3) K/mcL Eosinophils # (0.0-0.6) K/mcL Basophils # (0.0-0.2) K/mcL PT (9.4-12.1) Seconds INR APTT (26.0-36.0) Seconds Sodium (136-145) mEq/L Potassium (3.5-4.5) mEq/L Chloride (98-109) mEq/L Carbon Dioxide (19-29) mEq/L BUN (8-26) mg/dL Creatinine (0.72-1.25) mg/dL Est GFR ( Amer) (> 60) Est GFR (Non-Af Amer) (> 60) BUN/Creatinine Ratio (6-26) Glucose (70-99) mg/dL Calculated Osmolality (280-300) Lactic Acid (0.5-2.2) mmol/L Calcium (8.6-10.8) mg/dL Troponin I (0-0.03) ng/mL B-Natriuretic Peptide (0-100) pg/mL Urine Color Yellow (Yellow) Urine Clarity Cloudy A (Clear) Urine pH 6.5 (5.0-8.0) pH Units Ur Specific [place] 1.014 (1.010-1.025) Urine Protein Negative (Neg-Trace) mg/dL Urine Glucose (UA) 250 H (Normal) mg/dL Urine Ketones Negative (Negative) mg/dL Urine Blood Small H (Negative) Urine Nitrite Positive A (Negative) Urine Bilirubin Negative (Negative) Urine Urobilinogen 2.0 H (Normal) mg/dL Ur Leukocyte Esterase Moderate H (Negative) Urine Microscopic RBC 3-5 H (0-3) per hpf Urine Microscopic WBC 15-30 H (0-3) per hpf Ur Squamous Epith Cells Few (None-Few) per lpf Urine Bacteria Many H (None-Few) per hpf Hyaline Casts Few (None-Few) per lpf Ur Culture Indicated? YES A (NO) - Radiology Data Radiology results reviewed: Yes I reviewed the patient's radiology results. Chest X-Ray 06/30/17 23:52 IMPRESSION: Persistent right basilar pleuroparenchymal disease and pulmonary edema. D/ / Kobi Bond MD / Kobi Bond MD Interpreting Provider: Kobi Bond MD Chest CTA 07/01/17 00:26 IMPRESSION: 1. No evidence of pulmonary embolism or aortic dissection. 2. Moderate to large right pleural effusion with adjacent airspace disease, atelectasis versus pneumonia. 3. Diffuse alveolar ground-glass opacity throughout both lungs, with interlobular septal thickening, nonspecific but correlate with clinical evidence of pulmonary edema. D/ / Aki Hanna MD / Aki Hanna MD Interpreting Provider: Aki Hanna MD - EKG Data EKG attestation: Yes I reviewed and interpreted this EKG. EKG results narrative: A. fib with aberrant conduction, rate 94, QRS 188, right axis deviation with right bundle branch block. EKG morphology similar to previous S.Brittni.A.Horace - Ric Situation: Demographics, MOA Background: Presenting Complaint, Relevant PMH, Meds, & Allergies Assessment: Vital Signs, Course and respsone to treatment, Exam Concerns, Patient/Family Expectation, Pertinant Lab Results, Outstanding Labs Recommendation: Barrier(s) to disposition, Recommendation based on pending studies, treatments, or consults S.Brittni.AAditya Report Given to: Dr. Tee Larios Repor Time: 02:37
[2017-07-01] MEDS ORDERED: Vancomycin 2,000 MG in D5% in Water 500 ML IVPB ONE (01:18)
[2017-07-01] MEDS ORDERED: Piperacillin/Tazobactam 4.5 GM in D5% in Water (Mini-Bag+) 100 ML IVPB ONE (01:18)
--- NOTE | 2017-07-01 02:07 | Internal Med History&Physical ---
<Yann Carrasco - Last Filed: 07/01/17 03:08> Date of Encounter: 07/01/17 Time of Encounter: 02:07 Assessment and Plan (1) Sepsis Current visit: Yes Status: Acute Met SIRS criteria with tachycardia HR 103, tachypnea RR 25, WBC 12.3, and Lactic acid 2.5 Repeat lactic acid pending Source: PNA vs UTI. Chronic venous stasis changes bilateral legs, no evidence of cellulitis at this time. Patient given sepsis bolus in ED Cautious hydration due to concurrent CHF exacerbation Continue Vanc, Zosyn, and Levaquin Blood and sputum cultures pending Qualifiers: Sepsis type: sepsis due to unspecified organism Qualified Code(s): A41.9 - Sepsis, unspecified organism (2) Hospital acquired PNA Current visit: Yes Status: Acute Patient with recent 3 day hospitalization 10 days ago Chest x-ray concerning for pulmonary edema and CTA chest revealed moderate to large right pleural effusion with adjacent airspace disease, atelectasis versus pneumonia. Continue Vanc, Zosyn, and Levaquin De-escalate antibiotics when cultures resulted Blood and sputum cultures pending (3) Acute exacerbation of CHF (congestive heart failure) Current visit: Yes Status: Acute Echo 04/23/17 revealed LVEF 50-55%. Indeterminate left ventricular diastolic function. Atypical septal motion. Mild concentric hypertrophy of the left ventricle. RV is dilated with mild reduction in function. Suboptimal aortic valve Doppler signal. Suboptimal TR signal to estimate RVSP. IVC is dilated lacking respiratory collapse suggesting elevated RA pressures. BNP 674 Fluid restriction 1500cc daily Continue Lasix Qualifiers: Congestive heart failure type: diastolic Qualified Code(s): I50.33 - Acute on chronic diastolic (congestive) heart failure (4) Pleural effusion, right Current visit: Yes Status: Acute Continue diuresis Continue to monitor (5) Acute exacerbation of chronic obstructive airways disease Current visit: Yes Status: Acute Continue steroids, antibiotics, and Duonebs (6) UTI (urinary tract infection) Current visit: Yes Status: Acute Continue antibiotics Urine culture pending Qualifiers: Urinary tract infection type: acute cystitis Hematuria presence: with hematuria Qualified Code(s): N30.01 - Acute cystitis with hematuria (7) Chronic respiratory failure Current visit: Yes Status: Chronic Patient wears 3L continuous home O2 at baseline Qualifiers: Respiratory failure complication: hypoxia Qualified Code(s): J96.11 - Chronic respiratory failure with hypoxia (8) Essential hypertension Current visit: Yes Status: Chronic Continue home meds (9) Afib Current visit: No Status: Chronic CHADS-VASc Score 5 Continue home Xarelto Qualifiers: Atrial fibrillation type: paroxysmal Qualified Code(s): I48.0 - Paroxysmal atrial fibrillation (10) Diabetes mellitus with neuropathy Current visit: Yes Status: Chronic HGB a1c 5.5 on 05/01/27 Continue accuchecks and SSI Qualifiers: Diabetes mellitus type: type 2 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 mellitus 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 insulin 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: with half-way use Qualified Code(s): E11.40 - Type 2 diabetes mellitus with diabetic neuropathy, unspecified; Z79.4 - nursing home (current) use of insulin; Z79.4 - nursing home (current) use of insulin; Z79.4 - nursing home (current) use of insulin; Z79.4 - medical terminologist (current) use of insulin (11) 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 Current visit: Yes Status: Chronic Wound care consulted (12) Chronic kidney disease (CKD), stage III (moderate) Current visit: Yes Status: Acute Avoid nephrotoxins (13) Iron deficiency anemia Current visit: No Status: Chronic Continue to monitor Qualifiers: Iron deficiency anemia type: unspecified iron deficiency Qualified Code(s) : D50.9 - Iron deficiency anemia, unspecified (14) Morbid obesity with BMI of 40.0-44.9, adult Current visit: Yes Status: Chronic (15) DVT prophylaxis Current visit: Yes Status: Acute Continue home Xarelto Internal Medicine - H&P: HPI Chief complaint: SOB Admitted From: Home History of present illness: Mr. Diaz is a 71 year old male with a PMH of cirrhosis, oxygen dependence COPD , CHF, A-fib on Xarelto, DM Type 2, HTN, HLD, CKD Stage III, and recent 3 day hospitalization 10 days ago presents c/o worsening shortness of breath, chills, non-productive cough, and leg edema for the past 2 days. He reports associated weeping from left lg and abd distension. Of note, patient had paracentesis on for ascites and has ulcer on his left leg. He wears continuous home oxygen at 3 L and reports significant dyspnea at home despite using oxygen concentrator. patient has conversational dyspnea during exam. In the ED, chest x-ray was concerning for pulmonary edema and CTA chest revealed moderate to large right pleural effusion with adjacent airspace disease , atelectasis versus pneumonia. Lactic acid was 2.5 and patient was started on IVF, Vanc and Zosyn. Past Med Surg Social Fam HX - Past Medical History Medical history: arthritis, atrial fibrillation, CHF, COPD, diabetes, hyperlipidemia, hypertension, liver disease, renal disease Psychiatric history: no psych history - Past Surgical History Surgical History: orthopedic, other, pacemaker/AICD - Social History Smoking Status: Former smoker Smokeless Tobacco Status: No Alcohol use: none Drug use: none Current living situation: Home - Family History Father Hx Family Cardiac Disorders: Yes (Triple Bypass) Hx Family Endocrine Disorder: Yes (DM) Mother Family Member Ethnicity: Non- Living Status: Internal Medicine - H&P: Meds Amiodarone [Cordarone] 200 mg PO DAILY 04/28/15 [History] Aspirin 81 mg PO DAILY 04/28/15 [History] Atorvastatin [Lipitor] 40 mg PO HS 04/28/15 [History] Citalopram [CeleXA] 20 mg PO DAILY 04/28/15 [History] Ferrous Sulfate 325 mg PO DAILY 04/28/15 [History] Albuterol Sulfate [Proair Hfa] 2 puff IH Q4H PRN 01/25/17 [History] Metoprolol Succinate 200 mg PO DAILY 01/25/17 [History] Oxygen 2 l NS CONT 02/03/17 [History] Dextrose Gel [Gluctose] 30 gm PO ONCE PRN #0 gel..gram. 02/23/17 [Rx] Glucagon, Human Recombinant [Glucagen] 1 mg IM ONCE PRN #0 vial 02/23/17 [Rx] Nitroglycerin 0.4 mg SL Q5MIN PRN #0 tab.subl 02/23/17 [Rx] Tiotropium [Spiriva] 18 mcg IH 0800 #30 inh 02/23/17 [Rx] metFORMIN [Glucophage] 1,000 mg PO BIDWM tablet 02/23/17 [Rx] Diltiazem HCl [Diltiazem 24Hr Cd] 180 mg PO BID 04/06/17 [History] Insulin LISPRO [HumaLOG] 4 - 8 units SQ TIDWM 04/06/17 [History] Meclizine HCl [Verticalm] 25 mg PO QID PRN 04/06/17 [History] Rivaroxaban [Xarelto] 20 mg PO DAILY 04/06/17 [History] Ergocalciferol (VITAMIN D2) [Vitamin D2] 50,000 unit PO QWEEK 06/17/17 [History] Fluticasone/Vilanterol [Breo Ellipta 100-25 Mcg INH] 1 each IH DAILY 06/17/17 [ History] Furosemide [Lasix] 80 mg PO BID 06/17/17 [History] Insulin Glargine,Hum.rec.anlog [Basaglar Kwikpen U-100] 35 unit SQ BID 06/17/17 [History] Linagliptin [Tradjenta] 5 mg PO DAILY 06/17/17 [History] Loperamide HCl [Imodium A-D] 2 mg PO Q6H PRN 06/17/17 [History] [place]-3/Dha/Epa/Fish Oil [Fish Oil 1,000 mg Softgel] 1,000 mg PO DAILY 06/17/17 [History] Omeprazole [PriLOSEC] 40 mg PO BID 06/17/17 [History] Potassium Chloride 8 meq PO BID 06/17/17 [History] Spironolactone [Aldactone] 25 mg PO DAILY 06/17/17 [History] Tolnaftate [Antifungal Cream] 1 appl TP BID PRN 06/17/17 [History] Budesonide/Formoterol 160/4.5 [Symbicort 160/4.5] 2 puff IH BIDR inhaler [Rx] Omeprazole [PriLOSEC] 40 mg PO DAILY capsule. 06/20/17 [Rx] predniSONE [PredniSONE] 40 mg PO DAILY #4 tablet 06/20/17 [Rx] 3 Allergy/AdvReac Type Severity Reaction Status Date / Time bupropion [From Wellbutrin] Allergy Difficulty Verified 06/17/17 00:14 Breathing codeine Allergy Difficulty Verified 06/17/17 00:14 Breathing Opioids-Meperidine and Allergy Difficulty Verified 06/17/17 00:14 Related Breathing [Opioids-Meperidine & Related] All Systems PM: A 10-system review of systems was performed and is negative for pertinent findings except as documented above in the HPI. - Constitutional Constitutional: chills, fatigue, lethargy, weakness, weight gain, no fever(s), no weight loss - EENT Eyes: no change in vision Nose, mouth and throat: no nasal congestion, no sore throat - Cardiovascular Cardiovascular ROS IM: dyspnea, orthopnea, palpitations, paroxysmal nocturnal dyspnea, no chest pain - Respiratory Respiratory: cough, dyspnea on exertion, chest congestion, no wheezing, no excessive phlegm production, no change in phlegm color, no pain with cough - Gastrointestinal Gastrointestinal: bloating, no abdominal pain, no constipation, no cramping, no diarrhea, no nausea, no vomiting - Genitourinary Genitourinary ROS male: no difficulty urinating, no scrotal swelling, no urinary frequency, no urinary urgency - Musculoskeletal Musculoskeletal ROS IM: no back pain, no muscle weakness, no numbness, no tingling - Integumentary Integumentary IM: erythema, non-healing lesions, skin ulcer - Neurological Neurological ROS: weakness, no confusion, no dizziness, no numbness, no tingling - Psychiatric Psychiatric: no anxiety, no depression - Endocrine Endocrine IM: no polydipsia, no polyphagia, no polyuria - Hematologic/Lymphatic Hematologic/Lymphatic: no easy bleeding, no easy bruising - Constitutional Vitals: Temp Pulse Resp BP Pulse Ox 97.9 F 103 22 131/88 95 06/30/17 23:33 07/01/17 01:01 07/01/17 01:01 07/01/17 01:01 07/01/17 01:01 General appearance: Present: cooperative, A&O X 3, morbidly obese, pleasant, answers questions appropriately Exam: conversational dyspnea on 3L supplemental O2 - Head Head exam: Present: atraumatic, normal inspection, normocephalic - Eye Eye exam: Present: EOMI, PERRL - ENT ENT exam: Present: mucous membranes moist, normal oropharynx - Neck Neck exam general surgery: Present: normal inspection, supple. Absent: tenderness - Respiratory Respiratory exam: Present: decreased breath sounds (R>L). Absent: accessory muscle use, respiratory distress Additional comments: conversational dyspnea on 3L supplemental O2 - Cardiovascular Cardiovascular exam: Present: +S1, +S2, tachycardia - GI/Abdominal GI/Abdominal exam: Present: distended, firm, normal bowel sounds. Absent: guarding, soft, tenderness - Additional comments: no navarrete - Extremities Exam Extremities exam: Present: pedal edema (4+ pitting edema with weeping from LLL > RLL, stage 2 ulcer above left lateral malleolus), warm. Absent: normal inspection - Back Exam Back exam: Present: normal inspection. Absent: tenderness - Neurological Exam Neurological exam: Present: alert, oriented X3, no focal deficits. Absent: altered, motor sensory deficit, facial droop, speech deficit - Psychiatric Psychiatric exam: Present: normal affect, normal mood - Skin Skin exam: Present: erythema ( chronic venous stasis changes bilateral legs, stage 2 ulcer above left lateral malleolus), warm. Absent: pallor Internal Med - H&P Results - Labs CBC & Chem 7: 06/30/17 23:25 06/30/17 23:25 Labs: Short CBC 06/30/17 Range/Units 23:25 WBC 12.3 H (4.3-11.1) K/mcL Hgb 8.4 L (12.9-16.9) g/dL Hct 28.1 L (37.5-50.1) % Plt Count 323 (140-400) K/mcL Neutrophils # 10.4 H (1.6-8.9) K/mcL BMP 06/30/17 23:25 Sodium 134 L Potassium 4.5 Chloride 99 Carbon Dioxide 24 BUN 24 Creatinine 1.33 H Glucose 363 H Calcium 8.7 Cardiac Enzymes 06/30/17 Range/Units 23:25 Troponin I 0.01 (0-0.03) ng/mL Urine 07/01/17 Range/Units 00:13 Urine Color Yellow (Yellow) Urine Clarity Cloudy A (Clear) Urine pH 6.5 (5.0-8.0) pH Units Ur Specific [place] 1.014 (1.010-1.025) Urine Protein Negative (Neg-Trace) mg/dL Urine Glucose (UA) 250 H (Normal) mg/dL - EKG Data -: EKG Interpreted by Myself Rate: tachycardia (A. fib with aberrant conduction, rate 94, QRS 188, right axis deviation with RBBB) - EKG Data Prior EKG available for review: yes When compared to previous EKG: there is no significant change - Impressions ITS Impressions Chest X-Ray 06/30/17 23:52 IMPRESSION: Persistent right basilar pleuroparenchymal disease and pulmonary edema. D/ / Kobi Bond MD / Kobi Bond MD Interpreting Provider: Kobi Bond MD Chest CTA 07/01/17 00:26 IMPRESSION: 1. No evidence of pulmonary embolism or aortic dissection. 2. Moderate to large right pleural effusion with adjacent airspace disease, atelectasis versus pneumonia. 3. Diffuse alveolar ground-glass opacity throughout both lungs, with interlobular septal thickening, nonspecific but correlate with clinical evidence of pulmonary edema. D/ / Aki Hanna MD / Aki Hanna MD Interpreting Provider: Aki Hanna MD <Thomas Oliveira - Last Filed: 07/01/17 04:26> Date of Encounter: 07/01/17 Internal Medicine - H&P: HPI History of present illness: Mr. Diaz is a 71 year old male All Systems PM: A 10-system review of systems was performed and is negative for pertinent findings except as documented above in the HPI. - Constitutional Vitals: Temp Pulse Resp BP Pulse Ox 98.1 F 82 24 115/72 95 07/01/17 04:09 07/01/17 04:09 07/01/17 04:09 07/01/17 04:09 07/01/17 04:09 Internal Med - H&P Results - Labs CBC & Chem 7: 06/30/17 23:25 06/30/17 23:25 - Attending Attestation I have seen and examined the patient independently. I have discussed with resident DR Carrasco regarding the management plan. Agree with the documentation. Patient presented with shortness of breath. Imaging study shows pneumonia. Patient had elevated BNP with increased leg swelling. Also consider CHF exacerbation. Will treat patient with antibiotic and Lasix IV. Continue supportive treatment with oxygen. BiPAP as needed.
[2017-07-01] MEDS ORDERED: *HR* Promethazine 25 MG/ML VIAL IVP PRN (02:22)
[2017-07-01] MEDS ORDERED: Naloxone 0.4 MG/ML INJ IVP PRN (02:22)
[2017-07-01] MEDS ORDERED: Ondansetron 4 MG/2 ML VIAL IVP PRN (02:22)
[2017-07-01] MEDS ORDERED: methylPREDNISolone 125 MG/2 ML VIAL IVP ONE (02:41)
[2017-07-01] MEDS ORDERED: Vancomycin (wt based) 1,000 MG VIAL IVPB SCH (03:00)
[2017-07-01] MEDS ORDERED: Nitroglycerin 0.4 MG TAB.SUBL SL PRN (03:17)
[2017-07-01] MEDS ORDERED: *HR* Dextrose 50 % in Water (Syg) 50 ML SYRINGE IVP PRN (03:24)
[2017-07-01] MEDS ORDERED: Dextrose Gel 15 GM PO PRN ×2 (03:24)
[2017-07-01] MEDS ORDERED: D5% in Water 1,000 ML IVC PRN (03:24)
[2017-07-01] MEDS: Ipratropium/Albuterol Neb 3 ML IH SCH ×5 (03:25→21:36)
[2017-07-01 04:15] LABS: Basophils % 0.3 %; Eosinophils # 0.2 K/mcL (0.0-0.6); Eosinophils % 1.8 %; Hemoglobin 8.5 g/dL (12.9-16.9); Immature Granulocytes % 0.4 % (0-4); Lymphocytes # 0.7 K/mcL (0.6-4.6); Lymphocytes % 5.6 %; Mean Corpuscular HGB Conc 29.3 g/dL (31.6-35.5); Mean Corpuscular Volume 85.3 fL (83.0-100.0); Mean Platelet Volume 9.6 fL (9.4-12.4); Monocytes # 1.1 K/mcL (0.0-1.3); Monocytes % 8.8 %; Neutrophils # 10.3 K/mcL (1.6-8.9); Platelet Count 320 K/mcL (140-400); Red Cell Distribution Width 18.2 % (11.5-14.5); Segmented Neutrophils % 83.1 %
[2017-07-01] MEDS: Furosemide 40 MG/4 ML VIAL IVP SCH ×2 (04:17→16:58)
[2017-07-01] MEDS: Insulin LISPRO 300 UNITS/3 ML VIAL SQ SCH ×7 (04:17→20:02)
[2017-07-01 04:30] LABS: Alanine Aminotransferase 17 Units/L (0-55); Albumin 3.1 g/dL (3.5-5.0); Albumin/Globulin Ratio 0.8 (1.1-2.2); Alkaline Phosphatase 127 Units/L (38-126); Aspartate Amino Transferase 8 Units/L (5-34); BUN/Creatinine Ratio 17 (6-26); Bilirubin,Total 0.7 mg/dL (0.2-1.2); Blood Urea Nitrogen 21 mg/dL (8-26); Calcium 8.7 mg/dL (8.6-10.8); Carbon Dioxide 24 mEq/L (19-29); Chloride 101 mEq/L (98-109); Globulin 4.1 g/dL (2.4-3.5); Glucose 336 mg/dL (70-99); Magnesium 2.2 mg/dL (1.6-2.6); Osmolality,Calculated 296 (280-300); Potassium 4.3 mEq/L (3.5-4.5); Sodium 135 mEq/L (136-145); Total Protein 7.2 g/dL (6.0-8.3); eGFR For African Americans > 60 (> 60); eGFR For Non-African Americans 56 (> 60)
[2017-07-01] MEDS ORDERED: Tiotropium 18 MCG inhalation IH SCH (08:00)
[2017-07-01] MEDS: Budesonide/Formoterol 160/4.5 MDI IH SCH ×2 (08:06→21:36)
[2017-07-01] MEDS: *HR* Rivaroxaban 10 MG TABLET PO SCH (08:27)
[2017-07-01] MEDS: Diltiazem CD (24hr) 180 MG CAPSULE PO SCH ×2 (08:27→20:00)
[2017-07-01] MEDS: *HR* Amiodarone 200 MG TABLET PO SCH (08:27)
[2017-07-01] MEDS: Metoprolol XL (24 HR) Succ 50 MG TAB.ER.24H PO SCH (08:27)
[2017-07-01] MEDS: Aspirin 81 MG TAB.CHEW PO SCH (08:27)
[2017-07-01] MEDS: Levofloxacin 750 MG/150 ML 750 MG/150 ML BAG IVPB SCH (08:28)
[2017-07-01] MEDS: Spironolactone 25 MG TABLET PO SCH (08:28)
[2017-07-01] MEDS ORDERED: Aminoglycoside Consult 1 EACH MC ONE (08:56)
[2017-07-01] MEDS ORDERED: NON-FORMULARY MEDICATION 1 EACH EACH (Insulin Glargine,Hum.Rec.Anlog [Basaglar Kwikpen U-1 SQ SCH (09:00)
[2017-07-01] MEDS ORDERED: Insulin DETEMIR 100 UNIT/ML X5UNITS SQ SCH ×2 (09:00→21:00)
[2017-07-01] MEDS ORDERED: FISH OIL 1000 MG PO SCH (09:00)
[2017-07-01] MEDS ORDERED: MethylPREDNISolone 40 MG/ML VIAL IVP SCH (10:00)
[2017-07-01] MEDS: Piperacillin/Tazobactam 3.375 GM in D5% in Water (Mini-Bag+) 100 ML IVPB SCH ×3 (10:07→23:04)
--- NOTE | 2017-07-01 10:07 | Internal Med Progress Note ---
Date of Encounter: 07/01/17 Time of Encounter: 10:03 - Assessment and plan (1) Sepsis Current Visit: Yes Status: Acute Assessment and plan: On admission, he met SIRS criteria with tachycardia HR 103, tachypnea RR 25, WBC 12.3, and Lactic acid 2.5 Repeat lactate 3.0 Patient is on diuresis for pulm edema and CHF ,as well as hx of liver cirrhosis which may impede clearance of lactate Will continue to monitor Source: PNA vs UTI. Chronic venous stasis changes bilateral legs, no evidence of cellulitis at this time. NO IVF hydration at this time, BP is acceptable, will monitor closely Continue Vanc, Zosyn, and Levaquin Blood and sputum cultures pending Qualifiers: Sepsis type: sepsis due to unspecified organism Qualified Code(s): A41.9 - Sepsis, unspecified organism (2) Acute exacerbation of CHF (congestive heart failure) Current Visit: Yes Status: Acute Assessment and plan: Patient with worsening leg edema, >20 lbs weight gain in 2 months and shortness of breath Evidence of pulmonary edema on CXR Echo 04/23/17 revealed LVEF 50-55%. Indeterminate left ventricular diastolic function. Atypical septal motion. Mild concentric hypertrophy of the left ventricle. RV is dilated with mild reduction in function. Suboptimal aortic valve Doppler signal. Suboptimal TR signal to estimate RVSP. IVC is dilated lacking respiratory collapse suggesting elevated RA pressures. BNP 674 Fluid restriction 1500cc daily Continue Lasix IV BID patient is incontinent of urine, measure daily weights to asses output Qualifiers: Congestive heart failure type: diastolic Qualified Code(s): I50.33 - Acute on chronic diastolic (congestive) heart failure (3) Acute exacerbation of chronic obstructive airways disease Current Visit: Yes Status: Acute Assessment and plan: Continue steroids, antibiotics, and Duonebs (4) Chronic kidney disease (CKD), stage III (moderate) Current Visit: Yes Status: Chronic Assessment and plan: Avoid nephrotoxins (5) Pleural effusion, right Current Visit: Yes Status: Acute Assessment and plan: Mutifactorial: Parapneumonic vs fluid overload Continue diuresis for now Will repeat CXR and assess for need to thoracentensis Patient also has liver cirrhosis and this may be contributory as well Continue BiPAP as tolerated (6) UTI (urinary tract infection) Current Visit: Yes Status: Acute Assessment and plan: UA noted Follow urine culture On antibiotics Qualifiers: Urinary tract infection type: acute cystitis Hematuria presence: with hematuria Qualified Code(s): N30.01 - Acute cystitis with hematuria (7) Chronic respiratory failure Current Visit: Yes Status: Chronic Assessment and plan: Patient is on home O2, continue same BIPAP as tolerated with breaks for meal time Qualifiers: Respiratory failure complication: hypoxia Qualified Code(s): J96.11 - Chronic respiratory failure with hypoxia (8) Diabetes mellitus with neuropathy Current Visit: Yes Status: Chronic Assessment and plan: Uncontrolled, also on steroids now HGB a1c 5.5 on 05/01/27 Increase levemir, add prandial glucose Continue FS ACHS monitoring Monitor closely Qualifiers: Diabetes mellitus type: type 2 Diabetes mellitus penitentiary insulin use: with penitentiary use Qualified Code(s): E11.40 - Type 2 diabetes mellitus with diabetic neuropathy, unspecified; Z79.4 - terminal operations supervisor (current) 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 of insulin; Z79.4 - terminal operations supervisor (current) use of insulin; Z79.4 - assisted (current) use of insulin; Z79.4 - assisted (current) use of insulin (9) Essential hypertension Current Visit: Yes Status: Chronic Assessment and plan: Controlled, continue current meds (10) 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0 - Paroxysmal atrial fibrillation (14) Anemia Current Visit: Yes Status: Chronic Assessment and plan: Chronic, Hb is stable. Continue to monitor Qualifiers: Anemia type: other cause Other causes of anemia: chronic disease, other Qualified Code(s): D63.8 - Anemia in other chronic diseases classified elsewhere (15) Cirrhosis Current Visit: Yes Status: Chronic Assessment and plan: LFT stable Continue diuresis No abdominal symptoms Qualifiers: Hepatic cirrhosis type: other cirrhosis Qualified Code(s): K74.69 - Other cirrhosis of liver (16) Pneumonia Current Visit: Yes Status: Acute Assessment and plan: Patient with recent 3 day hospitalization 10 days ago Chest x-ray concerning for pulmonary edema and CTA chest revealed moderate to large right pleural effusion with adjacent airspace disease, atelectasis versus pneumonia. Continue Vanc, Zosyn, and Levaquin De-escalate antibiotics when cultures resulted Blood and sputum cultures pending Qualifiers: Pneumonia type: due to unspecified organism Laterality: right Lung location: unspecified part of lung Qualified Code(s): J18.9 - Pneumonia, unspecified organism (17) DVT prophylaxis Current Visit: Yes Status: Acute Assessment and plan: Continue home Xarelto - Subjective Interval history: initial eval 71 M with PMH of CHFpEF, Afib on Xaelto , COPD with chronic resp failure on home O2, HLD, DM, Neuropathy, chronic venous stasis, morbid obesity, ACFD and [place], he also has liver cirrhosis he is admitted and being managed for sepsis secondary to suspected UTI, probable HAP, lactic acidosis, pulmonary edema, CHFE and COPDE he is seen and evaluated at bedside sleepng soundly on BiPAP but rousable. Patient is incontinent of urine, per RN, patient made large amount of urine Patient is resident at home He denies new complains - Constitutional Vitals: Temp Pulse Resp BP Pulse Ox 98.3 F 90 15 105/82 96 07/01/17 06:38 07/01/17 08:47 07/01/17 08:06 07/01/17 06:38 07/01/17 08:06 General appearance: Present: cooperative, A&O X 3, morbidly obese, pleasant, answers questions appropriately - Head Head exam: Present: atraumatic, normocephalic - Eye Eye exam: Present: PERRL, conjuntiva pink, sclera anicteric Pupils: Present: PERRL - Neck Neck exam general surgery: Present: supple, trachea midline. Absent: lymphadenopathy - Respiratory Respiratory exam: Present: rhonchi, wheezes. Absent: accessory muscle use, rales - Cardiovascular Cardiovascular exam: Present: irregular rhythm, +S1, +S2. Absent: diastolic murmur, gallop, rubs, systolic murmur - GI/Abdominal GI/Abdominal exam: Present: normal bowel sounds, soft, no peritoneal signs. Absent: distended, tenderness - Extremities Exam Extremities exam: Present: pedal edema, warm, radial pulses palpable and symmetrical. Absent: calf tenderness, cyanotic Additional comments: Bilateral pitting 3+ edema, with associated superficial ulcers on the legs L>R, weeping of the superficial ulcer on the L leg, also some erythema and differential warrmth. calves are not tender - Neurological Exam Neurological exam: Present: alert, CN II-XII intact, oriented X3, no focal deficits. Absent: pronater drift, facial droop, speech deficit - Skin Skin exam: Present: dry Internal Medicine: Result - Labs CBC & Chem 7: 07/01/17 04:06 07/01/17 04:06 - ABG Interpretation ABG results: PT/INR, D-dimer PT 15.6 Seconds (9.4-12.1) H 06/30/17 23:25 Consult Discharge Plan - Plan Referrals: Damian Seymour MD [Primary Care Provider] - 07/11/17 1:30 pm
[2017-07-01] MEDS ORDERED: Vancomycin 2,000 MG in D5% in Water 500 ML IVPB SCH (14:00)
--- NOTE | 2017-07-01 18:38 | Electrocardiograph Report ---
[place] [id number] Test Date: 2017-06-30 Pat Name: Jaime Diaz Department: 103 Room: 2N15 Gender: M Applications Chemist: SHELLI : 1945 Requested By: Keegan Long Order Number: [id number] Reading MD: Julian Rubi DO Measurements Intervals [place] Rate: 94 P: ME: 0 QRS: 122 QRSD: 188 T: -66 QT: 414 QTc: 466 Interpretive Statements ATRIAL FIBRILLATION WITH ABERRANT CONDUCTION OR VENTRICULAR PREMATURE COMPLEXES RIGHT BUNDLE BRANCH BLOCK Electronically Signed On 07-01-2017 18:36:48 EDT by Julian Rubi DO
[2017-07-02] MEDS: Ipratropium/Albuterol Neb 3 ML IH SCH ×6 (00:41→20:31)
[2017-07-02] MEDS ORDERED: Vancomycin 1,500 MG in D5% in Water 250 ML IVPB SCH (05:00)
[2017-07-02 05:41] LABS: Basophils % 0.1 %; Hematocrit 25.2 % (37.5-50.1); Hemoglobin 7.5 g/dL (12.9-16.9); Immature Granulocytes % 0.7 % (0-4); Lymphocytes # 0.4 K/mcL (0.6-4.6); Lymphocytes % 2.5 %; Mean Corpuscular HGB Conc 29.8 g/dL (31.6-35.5); Mean Corpuscular Hemoglobin 25.3 pg (28.0-33.3); Mean Corpuscular Volume 85.1 fL (83.0-100.0); Mean Platelet Volume 9.7 fL (9.4-12.4); Monocytes # 0.9 K/mcL (0.0-1.3); Monocytes % 5.8 %; Neutrophils # 13.7 K/mcL (1.6-8.9); Platelet Count 278 K/mcL (140-400); Red Blood Count 2.96 M/mcL (4.19-5.50); Red Cell Distribution Width 18.1 % (11.5-14.5); Segmented Neutrophils % 90.9 %
[2017-07-02 05:52] LABS: Calcium 9.2 mg/dL (8.6-10.8); Potassium 4.5 mEq/L (3.5-4.5)
[2017-07-02] MEDS: Furosemide 40 MG/4 ML VIAL IVP SCH ×2 (08:08→08:44)
[2017-07-02] MEDS: Levofloxacin 750 MG/150 ML 750 MG/150 ML BAG IVPB SCH (08:10)
[2017-07-02] MEDS: Spironolactone 25 MG TABLET PO SCH (08:12)
[2017-07-02] MEDS: Insulin LISPRO 300 UNITS/3 ML VIAL SQ SCH ×8 (08:12→20:32)
[2017-07-02] MEDS: Metoprolol XL (24 HR) Succ 50 MG TAB.ER.24H PO SCH (08:12)
[2017-07-02] MEDS: Aspirin 81 MG TAB.CHEW PO SCH (08:12)
[2017-07-02] MEDS: Diltiazem CD (24hr) 180 MG CAPSULE PO SCH ×2 (08:12→20:31)
[2017-07-02] MEDS: predniSONE 20 MG TABLET PO SCH (08:12)
[2017-07-02] MEDS: *HR* Amiodarone 200 MG TABLET PO SCH (08:12)
[2017-07-02] MEDS: *HR* Rivaroxaban 10 MG TABLET PO SCH (08:13)
[2017-07-02] MEDS: Insulin DETEMIR 100 UNIT/ML X5UNITS SQ SCH ×2 (09:49→20:32)
[2017-07-02] MEDS: Piperacillin/Tazobactam 3.375 GM in D5% in Water (Mini-Bag+) 100 ML IVPB SCH ×3 (09:49→23:06)
--- NOTE | 2017-07-02 11:05 | Internal Med Progress Note ---
Date of Encounter: 07/02/17 Time of Encounter: 10:30 - Assessment and plan (1) CHERRIE (acute kidney injury) Current Visit: Yes Status: Acute Assessment and plan: Creatinine 1.26, CFR 53 on admission This morning Cr 1.74 and GFR 39 patient is on 80mg daily lasix for fluid overload Will decrease to 40mg daily Will stop Vancomycin Renally dose levaquin Avoid nephrotoxins Will hold off on IVF due to patient in current fluid overload Strict I/O monitoring (2) Sepsis Current Visit: Yes Status: Acute Assessment and plan: On admission, he met SIRS criteria with tachycardia HR 103, tachypnea RR 25, WBC 12.3, and Lactic acid 2.5 Lactate i improving slowly, 2.7 this morning, from 3.0 07/01 Patient is on diuresis for pulm edema and CHF ,as well as hx of liver cirrhosis which may impede clearance of lactate Will continue to monitor Source: PNA and UTI. Chronic venous stasis changes bilateral legs, no evidence of cellulitis at this time. NO IVF hydration at this time, BP is acceptable, will monitor closely D/C Vanc Continue Zosyn and Lavequin Prelim blood culture neagtive Qualifiers: Sepsis type: sepsis due to unspecified organism Qualified Code(s): A41.9 - Sepsis, unspecified organism (3) Acute exacerbation of CHF (congestive heart failure) Current Visit: Yes Status: Acute Assessment and plan: Patient with worsening leg edema, >20 lbs weight gain in 2 months and shortness of breath Evidence of pulmonary edema on CXR Echo 04/23/17 revealed LVEF 50-55%. Indeterminate left ventricular diastolic function. Atypical septal motion. Mild concentric hypertrophy of the left ventricle. RV is dilated with mild reduction in function. Suboptimal aortic valve Doppler signal. Suboptimal TR signal to estimate RVSP. IVC is dilated lacking respiratory collapse suggesting elevated RA pressures. BNP 674 Fluid restriction 1500cc daily Continue Lasix IV 40mg daily patient is incontinent of urine, measure daily weights to asses output Qualifiers: Congestive heart failure type: diastolic Qualified Code(s): I50.33 - Acute on chronic diastolic (congestive) heart failure (4) Acute exacerbation of chronic obstructive airways disease Current Visit: Yes Status: Acute Assessment and plan: Continue steroids, antibiotics, and Duonebs (5) Chronic kidney disease (CKD), stage III (moderate) Current Visit: Yes Status: Chronic Assessment and plan: Avoid nephrotoxins (6) Pleural effusion, right Current Visit: Yes Status: Acute Assessment and plan: Mutifactorial: Parapneumonic vs fluid overload Continue diuresis for now Will repeat CXR -2 views this morning Patient also has liver cirrhosis and this may be contributory as well Continue BiPAP as tolerated (7) UTI (urinary tract infection) Current Visit: Yes Status: Acute Assessment and plan: UA noted Urine culture growing GNR, will follow final culture report Continue current antibiotics Qualifiers: Urinary tract infection type: acute cystitis Hematuria presence: with hematuria Qualified Code(s): N30.01 - Acute cystitis with hematuria (8) Chronic respiratory failure Current Visit: Yes Status: Chronic Assessment and plan: Patient is on home O2, continue same BIPAP as tolerated with breaks for meal time Qualifiers: Respiratory failure complication: hypoxia Qualified Code(s): J96.11 - Chronic respiratory failure with hypoxia (9) Diabetes mellitus with neuropathy Current Visit: Yes Status: Chronic Assessment and plan: Uncontrolled, also on steroids now HGB a1c 5.5 on 05/01/27 Increase levemir, add prandial glucose Continue FS ACHS monitoring Monitor closely Qualifiers: Diabetes mellitus type: type 2 Diabetes mellitus snf insulin use: with terminal carman use Qualified Code(s): E11.40 - Type 2 diabetes mellitus with diabetic neuropathy, unspecified; Z79.4 - retirement (current) use of insulin; Z79.4 - retirement (current) use of insulin; Z79.4 - retirement (current) use of insulin; Z79.4 - retirement (current) use of insulin (10) Essential hypertension Current Visit: Yes Status: Chronic Assessment and plan: Controlled, continue current meds (11) 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 Current Visit: Yes Status: Chronic Assessment and plan: regroover input appreciated (12) Morbid obesity with BMI of 40.0-44.9, adult Current Visit: Yes Status: Chronic Assessment and plan: Lifestyle changes encouraged (13) Aortic stenosis Current Visit: Yes Status: Chronic Assessment and plan: Chronic, stable Qualifiers: Cardiac valve disease etiology: nonrheumatic Qualified Code(s): I35.0 - Nonrheumatic aortic (valve) stenosis (14) Afib Current Visit: Yes Status: Chronic Assessment and plan: HR controlled, CHADS-VASc Score 5 Continue home Xarelto Qualifiers: Atrial fibrillation type: paroxysmal Qualified Code(s): I48.0 - Paroxysmal atrial fibrillation (15) Anemia Current Visit: Yes Status: Chronic Assessment and plan: Chronic, Hb drop today from 8.5 to 7.5 No signs of bleeding Continue to monitor Qualifiers: Anemia type: other cause Other causes of anemia: chronic disease, other Qualified Code(s): D63.8 - Anemia in other chronic diseases classified elsewhere (16) Cirrhosis Current Visit: Yes Status: Chronic Assessment and plan: LFT stable Continue diuresis No abdominal symptoms Qualifiers: Hepatic cirrhosis type: other cirrhosis Qualified Code(s): K74.69 - Other cirrhosis of liver (17) Pneumonia Current Visit: Yes Status: Acute Assessment and plan: Patient with recent 3 day hospitalization 10 days ago Chest x-ray concerning for pulmonary edema and CTA chest revealed moderate to large right pleural effusion with adjacent airspace disease, atelectasis versus pneumonia. Blood culture preliminary no growth Will discontinue vancomycin Continue Levaquin and Zosyn, dose renally Qualifiers: Pneumonia type: due to unspecified organism Laterality: right Lung location: unspecified part of lung Qualified Code(s): J18.9 - Pneumonia, unspecified organism (18) DVT prophylaxis Current Visit: Yes Status: Acute Assessment and plan: Continue home Xarelto - Subjective Interval history: 71 M with PMH of CHFpEF, Afib on Xaelto , COPD with chronic resp failure on home O2, HLD, DM, Neuropathy, chronic venous stasis, morbid obesity, ACFD and ESTEPHANIA, he also has liver cirrhosis he is admitted and being managed for sepsis secondary to suspected UTI, probable HAP, lactic acidosis, pulmonary edema, CHFE and COPDE he is seen and evaluated at bedside sitting out of bed to chair Denies new complains States he ambulates at hoe with a walker and is wanting to walk Awaiting PTOT eval His renal function is worse than admission I/O inaccurate as patient is incontinent, some weight gain reported per chart between 07/01 and 07/02 - Constitutional Vitals: Temp Pulse Resp BP Pulse Ox 97.7 F 100 20 108/70 89 07/02/17 07:13 07/02/17 08:38 07/02/17 08:09 07/02/17 08:09 07/02/17 08:09 General appearance: Present: cooperative, A&O X 3, morbidly obese, pleasant, answers questions appropriately - Head Head exam: Present: atraumatic, normocephalic - Eye Eye exam: Present: PERRL, conjuntiva pink, sclera anicteric Pupils: Present: PERRL - Neck Neck exam general surgery: Present: supple, trachea midline. Absent: lymphadenopathy - Respiratory Respiratory exam: Present: rhonchi. Absent: accessory muscle use, rales, wheezes Additional comments: Wheezing has improved remarkably - Cardiovascular Cardiovascular exam: Present: irregular rhythm, +S1, +S2. Absent: diastolic murmur, gallop, rubs, systolic murmur - GI/Abdominal GI/Abdominal exam: Present: normal bowel sounds, soft, no peritoneal signs. Absent: distended, tenderness Additional comments: Obese, soft , not tender - Extremities Exam Additional comments: Bilateral pitting 3+ edema, with associated superficial ulcers on the legs L>R, weeping of the superficial ulcer on the L leg, also some erythema and differential warrmth. calves are not tender - Neurological Exam Neurological exam: Present: alert, CN II-XII intact, oriented X3, no focal deficits. Absent: pronater drift, facial droop, speech deficit - Skin Skin exam: Present: dry Internal Medicine: Result - Labs CBC & Chem 7: 07/02/17 05:33 07/02/17 05:33 Labs: Short CBC 07/02/17 Range/Units 05:33 WBC 15.1 H (4.3-11.1) K/mcL Hgb 7.5 L (12.9-16.9) g/dL Hct 25.2 L (37.5-50.1) % Plt Count 278 (140-400) K/mcL Neutrophils # 13.7 H (1.6-8.9) K/mcL BMP 07/02/17 05:33 Sodium 133 L Potassium 4.5 Chloride 98 Carbon Dioxide 25 BUN 27 H Creatinine 1.74 H Glucose 386 H Calcium 9.2 Cardiac Enzymes 07/01/17 Range/Units 16:05 Troponin I 0.00 (0-0.03) ng/mL - ABG Interpretation ABG results: PT/INR, D-dimer PT 15.6 Seconds (9.4-12.1) H 06/30/17 23:25 Consult Discharge Plan - Plan Referrals: Damian Seymour MD [Primary Care Provider] - 07/11/17 1:30 pm
[2017-07-02] MEDS: Budesonide/Formoterol 160/4.5 MDI IH SCH ×2 (11:32→20:31)
[2017-07-02] MEDS ORDERED: Vancomycin 2,000 MG in D5% in Water 500 ML IVPB SCH (14:00)
[2017-07-03] MEDS: Ipratropium/Albuterol Neb 3 ML IH SCH ×6 (00:26→20:43)
[2017-07-03 06:14] LABS: Basophils % 0.1 %; Eosinophils % 0.2 %; Hemoglobin 7.5 g/dL (12.9-16.9); Immature Granulocytes % 0.6 % (0-4); Lymphocytes # 0.5 K/mcL (0.6-4.6); Lymphocytes % 3.3 %; Mean Corpuscular HGB Conc 28.8 g/dL (31.6-35.5); Mean Corpuscular Volume 86.7 fL (83.0-100.0); Mean Platelet Volume 9.8 fL (9.4-12.4); Monocytes # 1.3 K/mcL (0.0-1.3); Monocytes % 8.2 %; Neutrophils # 13.7 K/mcL (1.6-8.9); Platelet Count 315 K/mcL (140-400); Red Cell Distribution Width 18.4 % (11.5-14.5); Segmented Neutrophils % 87.6 %
[2017-07-03 06:24] LABS: Calcium 9.2 mg/dL (8.6-10.8); Potassium 4.6 mEq/L (3.5-4.5)
[2017-07-03 06:30] LABS: Anisocytosis 1+ (Not Present); Microcytosis Present (Not Present); Platelet Estimate Normal (Normal)
[2017-07-03 06:31] LABS: Polychromasia 1+ (Not Present)
[2017-07-03] MEDS: Furosemide 40 MG/4 ML VIAL IVP SCH (07:39)
[2017-07-03] MEDS: Piperacillin/Tazobactam 3.375 GM in D5% in Water (Mini-Bag+) 100 ML IVPB SCH (07:41)
[2017-07-03] MEDS: Metoprolol XL (24 HR) Succ 50 MG TAB.ER.24H PO SCH (07:41)
[2017-07-03] MEDS: *HR* Amiodarone 200 MG TABLET PO SCH (07:41)
[2017-07-03] MEDS: Aspirin 81 MG TAB.CHEW PO SCH (07:41)
[2017-07-03] MEDS: predniSONE 20 MG TABLET PO SCH (07:41)
[2017-07-03] MEDS: Diltiazem CD (24hr) 180 MG CAPSULE PO SCH ×2 (07:41→19:53)
[2017-07-03] MEDS: Spironolactone 25 MG TABLET PO SCH (07:41)
[2017-07-03] MEDS: *HR* Rivaroxaban 10 MG TABLET PO SCH (07:41)
[2017-07-03] MEDS: Insulin LISPRO 300 UNITS/3 ML VIAL SQ SCH ×7 (07:42→19:53)
[2017-07-03] MEDS: Budesonide/Formoterol 160/4.5 MDI IH SCH ×2 (07:53→20:43)
[2017-07-03] MEDS: Insulin DETEMIR 100 UNIT/ML X5UNITS SQ SCH ×2 (08:22→19:53)
--- NOTE | 2017-07-03 09:09 | Internal Med Progress Note ---
Date of Encounter: 07/03/17 Time of Encounter: 09:09 - Assessment and plan (1) CHERRIE (acute kidney injury) Current Visit: Yes Status: Acute Assessment and plan: Creatinine 1.26, CFR 53 on admission 07/02 Cr 1.74 and GFR 39, slightly improved this a.m Vancomycin has been held Continue lasix 40mg daily Avoid nephrotoxins Will hold off on IVF due to patient in current fluid overload Strict I/O monitoring -documented as positive 5L, however, patient is incontinent of urine and output may not be measured accurately Measure daily weight (2) Sepsis Current Visit: Yes Status: Acute Assessment and plan: On admission, he met SIRS criteria with tachycardia HR 103, tachypnea RR 25, WBC 12.3, and Lactic acid 2.5 Lactate is improving slowly, cpntinue to monitor Patient is on diuresis for pulm edema and CHF ,as well as hx of liver cirrhosis which may impede clearance of lactate Will continue to monitor Source: PNA and UTI. Chronic venous stasis changes bilateral legs, no evidence of cellulitis at this time. NO IVF hydration at this time, BP is acceptable, will monitor closely D/C Vanc 07/02 Prelim blood culture neagtive urine culture with citrobacter fruendi intermediate sensitivity to Zosyn D/C Zosyn , change to cefepime, continue levaquin Qualifiers: Sepsis type: sepsis due to unspecified organism Qualified Code(s): A41.9 - Sepsis, unspecified organism (3) Acute exacerbation of CHF (congestive heart failure) Current Visit: Yes Status: Acute Assessment and plan: Patient with worsening leg edema, >20 lbs weight gain in 2 months and shortness of breath Evidence of pulmonary edema on CXR Echo 04/23/17 revealed LVEF 50-55%. Indeterminate left ventricular diastolic function. Atypical septal motion. Mild concentric hypertrophy of the left ventricle. RV is dilated with mild reduction in function. Suboptimal aortic valve Doppler signal. Suboptimal TR signal to estimate RVSP. IVC is dilated lacking respiratory collapse suggesting elevated RA pressures. BNP 674 Fluid restriction 1500cc daily Continue Lasix IV 40mg daily patient is incontinent of urine, measure daily weights to asses output Qualifiers: Congestive heart failure type: diastolic Qualified Code(s): I50.33 - Acute on chronic diastolic (congestive) heart failure (4) Acute exacerbation of chronic obstructive airways disease Current Visit: Yes Status: Acute Assessment and plan: Continue steroids, antibiotics, and Duonebs (5) Chronic kidney disease (CKD), stage III (moderate) Current Visit: Yes Status: Chronic Assessment and plan: Avoid nephrotoxins (6) Pleural effusion, right Current Visit: Yes Status: Acute Assessment and plan: Mutifactorial: Parapneumonic vs fluid overload Continue diuresis for now Repeat CXR no change from prior Patient also has liver cirrhosis and this may be contributory as well Continue BiPAP as tolerated (7) UTI (urinary tract infection) Current Visit: Yes Status: Acute Assessment and plan: Due to citrobacter, sensitivity noted D/C Zosyn, change to cefepime, continue levaquin Qualifiers: Urinary tract infection type: acute cystitis Hematuria presence: with hematuria Qualified Code(s): N30.01 - Acute cystitis with hematuria (8) Chronic respiratory failure Current Visit: Yes Status: Chronic Assessment and plan: Patient is on home O2, continue same BIPAP as tolerated with breaks for meal time Qualifiers: Respiratory failure complication: hypoxia Qualified Code(s): J96.11 - Chronic respiratory failure with hypoxia (9) Diabetes mellitus with neuropathy Current Visit: Yes Status: Chronic Assessment and plan: Uncontrolled, also on steroids now HGB a1c 5.5 on 05/01/27 Increase levemir, increase prandial glucose Continue FS ACHS monitoring Monitor closely Qualifiers: Diabetes mellitus type: type 2 Diabetes mellitus harness mender insulin use: with care home use Qualified Code(s): E11.40 - Type 2 diabetes mellitus with diabetic neuropathy, unspecified; Z79.4 - long-term (current) use of insulin; Z79.4 - long-term (current) use of insulin; Z79.4 - vitreo retinal surgeon (current) use of insulin; Z79.4 - vitreo retinal surgeon (current) use of insulin (10) Essential hypertension Current Visit: Yes Status: Chronic Assessment and plan: Controlled, continue current meds (11) 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 Current Visit: Yes Status: Chronic Assessment and plan: clinical operations specialist input appreciated (12) Morbid obesity with BMI of 40.0-44.9, adult Current Visit: Yes Status: Chronic Assessment and plan: Lifestyle changes encouraged (13) Aortic stenosis Current Visit: Yes Status: Chronic Assessment and plan: Chronic, stable Qualifiers: Cardiac valve disease etiology: nonrheumatic Qualified Code(s): I35.0 - Nonrheumatic aortic (valve) stenosis (14) Afib Current Visit: Yes Status: Chronic Assessment and plan: HR controlled, CHADS-VASc Score 5 Continue home Xarelto Qualifiers: Atrial fibrillation type: paroxysmal Qualified Code(s): I48.0 - Paroxysmal atrial fibrillation (15) Anemia Current Visit: Yes Status: Chronic Assessment and plan: Chronic, Hb stable between 7.5-8.5 No signs of bleeding Continue to monitor Qualifiers: Anemia type: other cause Other causes of anemia: chronic disease, other Qualified Code(s): D63.8 - Anemia in other chronic diseases classified elsewhere (16) Cirrhosis Current Visit: Yes Status: Chronic Assessment and plan: LFT stable Continue diuresis No abdominal symptoms Qualifiers: Hepatic cirrhosis type: other cirrhosis Qualified Code(s): K74.69 - Other cirrhosis of liver (17) Pneumonia Current Visit: Yes Status: Acute Assessment and plan: Patient with recent 3 day hospitalization 10 days ago Chest x-ray concerning for pulmonary edema and CTA chest revealed moderate to large right pleural effusion with adjacent airspace disease, atelectasis versus pneumonia. Blood culture preliminary no growth Continue Levaquin and Cefepime Qualifiers: Pneumonia type: due to unspecified organism Laterality: right Lung location: unspecified part of lung Qualified Code(s): J18.9 - Pneumonia, unspecified organism (18) DVT prophylaxis Current Visit: Yes Status: Acute Assessment and plan: Continue home Xarelto - Subjective Interval history: 71 M with PMH of CHFpEF, Afib on Xaelto , COPD with chronic resp failure on home O2, HLD, DM, Neuropathy, chronic venous stasis, morbid obesity, ACFD and ESTEPHANIA, he also has liver cirrhosis he is admitted and being managed for sepsis secondary to suspected UTI, probable HAP, lactic acidosis, pulmonary edema, CHFE and COPDE he is seen and evaluated at bedside sitting out of bed to chair Awaiting PTOT eval Reports he thinks he might have short term memory impairment and this may have been going on for sometime He has never been worked up for same - Constitutional Vitals: Temp Pulse Resp BP Pulse Ox 98.0 F 107 18 133/94 99 07/03/17 07:12 07/03/17 07:51 07/03/17 07:53 07/03/17 07:12 07/03/17 07:53 General appearance: Present: cooperative, A&O X 3, morbidly obese, pleasant, answers questions appropriately - Head Head exam: Present: atraumatic, normocephalic - Eye Eye exam: Present: PERRL, conjuntiva pink, sclera anicteric Pupils: Present: PERRL - Neck Neck exam general surgery: Present: supple, trachea midline. Absent: lymphadenopathy - Respiratory Respiratory exam: Present: CTAB. Absent: accessory muscle use, rales, rhonchi, wheezes - Cardiovascular Cardiovascular exam: Present: RRR, +S1, +S2. Absent: diastolic murmur, gallop, rubs, systolic murmur - GI/Abdominal GI/Abdominal exam: Present: normal bowel sounds, soft, no peritoneal signs. Absent: distended, tenderness - Extremities Exam Additional comments: Bilateral pitting 3+ edema, with associated superficial ulcers on the legs L>R, weeping of the superficial ulcer on the L leg, also some erythema and differential warrmth. calves are not tender - Neurological Exam Neurological exam: Present: alert, CN II-XII intact, oriented X3, no focal deficits. Absent: pronater drift, facial droop, speech deficit - Skin Skin exam: Present: dry Internal Medicine: Result - Labs CBC & Chem 7: 07/03/17 06:02 07/03/17 06:02 Labs: Short CBC 07/03/17 Range/Units 06:02 WBC 15.6 H (4.3-11.1) K/mcL Hgb 7.5 L (12.9-16.9) g/dL Hct 26.0 L (37.5-50.1) % Plt Count 315 (140-400) K/mcL Neutrophils # 13.7 H (1.6-8.9) K/mcL BMP 07/03/17 06:02 Sodium 138 Potassium 4.6 H Chloride 103 Carbon Dioxide 25 BUN 34 H Creatinine 1.70 H Glucose 300 H Calcium 9.2 - ABG Interpretation ABG results: PT/INR, D-dimer PT 15.6 Seconds (9.4-12.1) H 06/30/17 23:25 - Impressions Impressions Chest X-Ray 07/02/17 11:09 IMPRESSION: No change in edema and right pleural effusion. D/ / 07/02/2017 13:54:37 Howard Johns MD / [email or web address] Interpreting Provider: Howard Johns MD Consult Discharge Plan - Plan Referrals: Damian Seymour MD [Primary Care Provider] - 07/11/17 1:30 pm
[2017-07-03] MEDS: Cefepime HCl 1,000 MG in D5% in Water (Mini-Bag+) 100 ML IVPB SCH (16:49)
[2017-07-04] MEDS: Ipratropium/Albuterol Neb 3 ML IH SCH ×7 (00:09→23:24)
[2017-07-04 03:50] LABS: Basophils % 0.1 %; Eosinophils # 0.1 K/mcL (0.0-0.6); Eosinophils % 0.6 %; Hematocrit 25.2 % (37.5-50.1); Hemoglobin 7.4 g/dL (12.9-16.9); Immature Granulocytes % 0.4 % (0-4); Lymphocytes # 0.6 K/mcL (0.6-4.6); Lymphocytes % 4.3 %; Mean Corpuscular HGB Conc 29.4 g/dL (31.6-35.5); Mean Corpuscular Hemoglobin 25.3 pg (28.0-33.3); Mean Platelet Volume 9.8 fL (9.4-12.4); Monocytes # 1.2 K/mcL (0.0-1.3); Monocytes % 8.2 %; Neutrophils # 12.5 K/mcL (1.6-8.9); Platelet Count 297 K/mcL (140-400); Red Blood Count 2.93 M/mcL (4.19-5.50); Red Cell Distribution Width 18.6 % (11.5-14.5); Segmented Neutrophils % 86.4 %
[2017-07-04 04:01] LABS: Potassium 4.8 mEq/L (3.5-4.5)
[2017-07-04] MEDS: Cefepime HCl 1,000 MG in D5% in Water (Mini-Bag+) 100 ML IVPB SCH ×2 (06:51→16:54)
[2017-07-04] MEDS: Budesonide/Formoterol 160/4.5 MDI IH SCH ×2 (07:39→20:32)
[2017-07-04] MEDS: Spironolactone 25 MG TABLET PO SCH (08:32)
[2017-07-04] MEDS: Aspirin 81 MG TAB.CHEW PO SCH (08:32)
[2017-07-04] MEDS: Diltiazem CD (24hr) 180 MG CAPSULE PO SCH ×2 (08:33→21:26)
[2017-07-04] MEDS: *HR* Amiodarone 200 MG TABLET PO SCH (08:34)
[2017-07-04] MEDS: Levofloxacin 500 MG/100 ML 500 MG/100 ML BAG IVPB SCH (08:36)
[2017-07-04] MEDS: Metoprolol XL (24 HR) Succ 50 MG TAB.ER.24H PO SCH (08:38)
[2017-07-04] MEDS: predniSONE 20 MG TABLET PO SCH (08:38)
[2017-07-04] MEDS: Insulin DETEMIR 100 UNIT/ML X5UNITS SQ SCH ×2 (08:39→21:26)
[2017-07-04] MEDS: *HR* Rivaroxaban 10 MG TABLET PO SCH (08:39)
[2017-07-04] MEDS: Insulin LISPRO 300 UNITS/3 ML VIAL SQ SCH ×7 (08:40→21:25)
--- NOTE | 2017-07-04 11:11 | Internal Med Progress Note ---
Date of Encounter: 07/04/17 Time of Encounter: 11:06 - Assessment and plan (1) CHERRIE (acute kidney injury) Current Visit: Yes Status: Acute Assessment and plan: Creatinine 1.26, CFR 53 on admission Continue to worsen Hold Lasix for today and continue to monitor Avoid nephrotoxins Will hold off on IVF due to patient in current fluid overload Strict I/O monitoring -documented as positive 6L, however, patient is incontinent of urine and output may not be measured accurately Measure daily weight May consult to nephrology if patient is not improving by a.m. (2) Sepsis Current Visit: Yes Status: Acute Assessment and plan: On admission, he met SIRS criteria with tachycardia HR 103, tachypnea RR 25, WBC 12.3, and Lactic acid 2.5 Lactic acidosis has resolved Patient is on diuresis for pulm edema and CHF ,as well as hx of liver cirrhosis Will continue to monitor Source: PNA and UTI. Chronic venous stasis changes bilateral legs, no evidence of cellulitis at this time. NO IVF hydration at this time, BP is acceptable, will monitor closely D/C Vanc 07/02 Prelim blood culture negative urine culture with citrobacter fruendi intermediate sensitivity to Zosyn D/C Zosyn , on 07/03, changed to cefepime, continue levaquin Qualifiers: Sepsis type: sepsis due to unspecified organism Qualified Code(s): A41.9 - Sepsis, unspecified organism (3) Acute exacerbation of CHF (congestive heart failure) Current Visit: Yes Status: Acute Assessment and plan: Patient with worsening leg edema, >20 lbs weight gain in 2 months and shortness of breath Evidence of pulmonary edema on CXR Echo 04/23/17 revealed LVEF 50-55%. Indeterminate left ventricular diastolic function. Atypical septal motion. Mild concentric hypertrophy of the left ventricle. RV is dilated with mild reduction in function. Suboptimal aortic valve Doppler signal. Suboptimal TR signal to estimate RVSP. IVC is dilated lacking respiratory collapse suggesting elevated RA pressures. BNP 674 Fluid restriction 1500cc daily Lasix due to worsening renal failure. May need albumin and Lasix infusion. patient is incontinent of urine, measure daily weights to asses output Qualifiers: Congestive heart failure type: diastolic Qualified Code(s): I50.33 - Acute on chronic diastolic (congestive) heart failure (4) Acute exacerbation of chronic obstructive airways disease Current Visit: Yes Status: Acute Assessment and plan: Continue steroids, antibiotics, and Duonebs (5) Chronic kidney disease (CKD), stage III (moderate) Current Visit: Yes Status: Chronic Assessment and plan: Avoid nephrotoxins (6) Pleural effusion, right Current Visit: Yes Status: Acute Assessment and plan: Mutifactorial: Parapneumonic vs fluid overload Continue diuresis for now Repeat CXR no change from prior Patient also has liver cirrhosis and this may be contributory as well Continue BiPAP as tolerated (7) UTI (urinary tract infection) Current Visit: Yes Status: Acute Assessment and plan: Due to citrobacter, sensitivity noted Continue cefepime, continue levaquin Qualifiers: Urinary tract infection type: acute cystitis Hematuria presence: with hematuria Qualified Code(s): N30.01 - Acute cystitis with hematuria (8) Chronic respiratory failure Current Visit: Yes Status: Chronic Assessment and plan: Patient is on home O2, continue same BIPAP as tolerated with breaks for meal time Qualifiers: Respiratory failure complication: hypoxia Qualified Code(s): J96.11 - Chronic respiratory failure with hypoxia (9) Diabetes mellitus with neuropathy Current Visit: Yes Status: Chronic Assessment and plan: Uncontrolled, also on steroids now HGB a1c 5.5 on 05/01/27 Increase levemir, increase prandial glucose Continue FS ACHS monitoring Monitor closely Qualifiers: Diabetes mellitus type: type 2 Diabetes mellitus emt intermediate insulin use: with assisted use Qualified Code(s): E11.40 - Type 2 diabetes mellitus with diabetic neuropathy, unspecified; Z79.4 - termite exterminator helper (current) use of insulin; Z79.4 - termite exterminator helper (current) use of insulin; Z79.4 - care home (current) use of insulin; Z79.4 - termite exterminator helper (current) use of insulin (10) Essential hypertension Current Visit: Yes Status: Chronic Assessment and plan: Controlled, continue current meds (11) 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 Current Visit: Yes Status: Chronic Assessment and plan: rollout manager input appreciated (12) Morbid obesity with BMI of 40.0-44.9, adult Current Visit: Yes Status: Chronic Assessment and plan: Lifestyle changes encouraged (13) Aortic stenosis Current Visit: Yes Status: Chronic Assessment and plan: Chronic, stable Qualifiers: Cardiac valve disease etiology: nonrheumatic Qualified Code(s): I35.0 - Nonrheumatic aortic (valve) stenosis (14) Afib Current Visit: Yes Status: Chronic Assessment and plan: HR controlled, CHADS-VASc Score 5 Continue home Xarelto, adjust due to abnormal renal function Qualifiers: Atrial fibrillation type: paroxysmal Qualified Code(s): I48.0 - Paroxysmal atrial fibrillation (15) Anemia Current Visit: Yes Status: Chronic Assessment and plan: Chronic, Hb stable between 7.5-8.5 No signs of bleeding Continue to monitor Qualifiers: Anemia type: other cause Other causes of anemia: chronic disease, other Qualified Code(s): D63.8 - Anemia in other chronic diseases classified elsewhere (16) Cirrhosis Current Visit: Yes Status: Chronic Assessment and plan: LFT stable Continue diuresis No abdominal symptoms Qualifiers: Hepatic cirrhosis type: other cirrhosis Qualified Code(s): K74.69 - Other cirrhosis of liver (17) Pneumonia Current Visit: Yes Status: Acute Assessment and plan: Patient with recent 3 day hospitalization 10 days ago Chest x-ray concerning for pulmonary edema and CTA chest revealed moderate to large right pleural effusion with adjacent airspace disease, atelectasis versus pneumonia. Blood culture preliminary no growth Continue Levaquin and Cefepime Qualifiers: Pneumonia type: due to unspecified organism Laterality: right Lung location: unspecified part of lung Qualified Code(s): J18.9 - Pneumonia, unspecified organism (18) DVT prophylaxis Current Visit: Yes Status: Acute Assessment and plan: Continue home Xarelto - Subjective Interval history: 71 M with PMH of CHFpEF, Afib on Xaelto , COPD with chronic resp failure on home O2, HLD, DM, Neuropathy, chronic venous stasis, morbid obesity, ACFD and ESTEPH[place]IA, he also has liver cirrhosis he is admitted and being managed for sepsis secondary to UTI, probable HAP, lactic acidosis, pulmonary edema, CHFE and COPDE he is seen and evaluated at bedside sitting out of bed to chair Awaiting PTOT eval No new complains Renal function is worsening, I/O not accurate due to patient being incontinent of urine - Constitutional Vitals: Temp Pulse Resp BP Pulse Ox 97.8 F 85 20 122/81 95 07/04/17 07:35 07/04/17 08:18 07/04/17 07:39 07/04/17 07:35 07/04/17 07:39 General appearance: Present: cooperative, A&O X 3, morbidly obese, pleasant, answers questions appropriately - Head Head exam: Present: atraumatic, normocephalic - Eye Eye exam: Present: PERRL, conjuntiva pink, sclera anicteric Pupils: Present: PERRL - Neck Neck exam general surgery: Present: supple, trachea midline. Absent: lymphadenopathy - Respiratory Respiratory exam: Present: CTAB. Absent: accessory muscle use, rales, rhonchi, wheezes - Cardiovascular Cardiovascular exam: Present: RRR, +S1, +S2. Absent: diastolic murmur, gallop, rubs, systolic murmur - GI/Abdominal GI/Abdominal exam: Present: normal bowel sounds, soft, no peritoneal signs. Absent: distended, tenderness - Extremities Exam Extremities exam: Present: pedal edema, warm, radial pulses palpable and symmetrical. Absent: calf tenderness, cyanotic Additional comments: Bilateral pitting 3+ edema, with associated superficial ulcers on the legs L>R, weeping of the superficial ulcer on the L leg, also some erythema and differential warrmth. calves are not tender - Neurological Exam Neurological exam: Present: alert, CN II-XII intact, oriented X3, no focal deficits. Absent: pronater drift, facial droop, speech deficit - Skin Skin exam: Present: dry Internal Medicine: Result - Labs CBC & Chem 7: 07/04/17 03:41 07/04/17 03:41 Labs: Short CBC 07/04/17 Range/Units 03:41 WBC 14.5 H (4.3-11.1) K/mcL Hgb 7.4 L (12.9-16.9) g/dL Hct 25.2 L (37.5-50.1) % Plt Count 297 (140-400) K/mcL Neutrophils # 12.5 H (1.6-8.9) K/mcL BMP 07/04/17 03:41 Sodium 136 Potassium 4.8 H Chloride 102 Carbon Dioxide 25 BUN 43 H Creatinine 1.93 H Glucose 217 H Calcium 9.0 - ABG Interpretation ABG results: PT/INR, D-dimer PT 15.6 Seconds (9.4-12.1) H 06/30/17 23:25 Consult Discharge Plan - Plan Referrals: Damian Seymour MD [Primary Care Provider] - 07/11/17 1:30 pm
[2017-07-05] MEDS: Ipratropium/Albuterol Neb 3 ML IH SCH ×5 (04:42→20:11)
[2017-07-05] MEDS: Cefepime HCl 1,000 MG in D5% in Water (Mini-Bag+) 100 ML IVPB SCH ×2 (06:29→17:25)
[2017-07-05 06:53] LABS: Basophils % 0.2 %; Immature Granulocytes % 0.6 % (0-4); Nucleated Red Blood Cells 0.2 /100 WBC (0); Red Cell Distribution Width 18.8 % (11.5-14.5)
[2017-07-05 06:54] LABS: Eosinophils # 0.1 K/mcL (0.0-0.6); Eosinophils % 0.6 %; Hematocrit 24.2 % (37.5-50.1); Hemoglobin 6.8 g/dL (12.9-16.9); Lymphocytes # 0.6 K/mcL (0.6-4.6); Lymphocytes % 4.5 %; Mean Corpuscular HGB Conc 28.1 g/dL (31.6-35.5); Mean Corpuscular Hemoglobin 25.2 pg (28.0-33.3); Mean Corpuscular Volume 89.6 fL (83.0-100.0); Mean Platelet Volume 10.2 fL (9.4-12.4); Monocytes # 1.1 K/mcL (0.0-1.3); Monocytes % 8.8 %; Neutrophils # 10.5 K/mcL (1.6-8.9); Platelet Count 298 K/mcL (140-400); Segmented Neutrophils % 85.3 %
[2017-07-05 06:58] LABS: Potassium 4.7 mEq/L (3.5-4.5)
[2017-07-05] MEDS: Budesonide/Formoterol 160/4.5 MDI IH SCH ×2 (07:40→20:11)
[2017-07-05 08:00] LABS: Anisocytosis 1+ (Not Present); Burr Cells 1+ (Not Present); Hypochromasia Present (Not Present); Platelet Estimate Normal (Normal)
[2017-07-05] MEDS: Insulin LISPRO 300 UNITS/3 ML VIAL SQ SCH ×7 (08:36→20:47)
[2017-07-05] MEDS: Spironolactone 25 MG TABLET PO SCH (08:37)
[2017-07-05] MEDS: predniSONE 20 MG TABLET PO SCH (08:37)
[2017-07-05] MEDS: *HR* Amiodarone 200 MG TABLET PO SCH (08:37)
[2017-07-05] MEDS: Metoprolol XL (24 HR) Succ 50 MG TAB.ER.24H PO SCH (08:37)
[2017-07-05] MEDS: Diltiazem CD (24hr) 180 MG CAPSULE PO SCH ×2 (08:37→20:47)
[2017-07-05] MEDS: Aspirin 81 MG TAB.CHEW PO SCH (08:37)
[2017-07-05] MEDS ORDERED: Neosporin OINT 15 GM TUBE TP PRN (09:17)
[2017-07-05] MEDS ORDERED: 0.9 % Sodium Chloride 250 ML ONE (09:37)
[2017-07-05] MEDS: Insulin DETEMIR 100 UNIT/ML X5UNITS SQ SCH ×2 (10:00→20:47)
[2017-07-05 14:13] LABS: Basophils % 0.2 %; Eosinophils % 0.3 %; Hematocrit 26.7 % (37.5-50.1); Hemoglobin 7.9 g/dL (12.9-16.9); Immature Granulocytes % 0.5 % (0-4); Lymphocytes # 0.4 K/mcL (0.6-4.6); Lymphocytes % 2.9 %; Mean Corpuscular HGB Conc 29.6 g/dL (31.6-35.5); Mean Corpuscular Hemoglobin 25.5 pg (28.0-33.3); Mean Corpuscular Volume 86.1 fL (83.0-100.0); Mean Platelet Volume 9.9 fL (9.4-12.4); Monocytes # 0.4 K/mcL (0.0-1.3); Monocytes % 2.9 %; Neutrophils # 12.3 K/mcL (1.6-8.9); Nucleated Red Blood Cells 0.3 /100 WBC (0); Platelet Count 303 K/mcL (140-400); Red Cell Distribution Width 18.5 % (11.5-14.5); Segmented Neutrophils % 93.2 %
[2017-07-05 14:19] LABS: INR 1.5
--- NOTE | 2017-07-05 16:39 | Internal Med Progress Note ---
Date of Encounter: 07/05/17 Time of Encounter: 09:45 - Assessment and plan (1) Sepsis Current Visit: Yes Status: Acute Assessment and plan: Present On admission, he met SIRS criteria with tachycardia HR 103, tachypnea RR 25, WBC 12.3, and Lactic acid 2.5 Lactic acidosis has resolved Patient is on diuresis for pulm edema and CHF ,as well as hx of liver cirrhosis Will continue to monitor Source: PNA and UTI. Chronic venous stasis changes bilateral legs, no evidence of cellulitis at this time. NO IVF hydration at this time, BP is acceptable, will monitor closely Prelim blood culture negative urine culture with citrobacter fruendi intermediate sensitivity to Zosyn on 07/03, changed to cefepime, continue levaquin Qualifiers: Sepsis type: sepsis due to unspecified organism Qualified Code(s): A41.9 - Sepsis, unspecified organism (2) Acute exacerbation of chronic obstructive airways disease Current Visit: Yes Status: Acute Assessment and plan: Continue steroids, Symbicort, antibiotics, and Duonebs (3) Afib Current Visit: Yes Status: Chronic Assessment and plan: HR controlled, CHADS-VASc Score 5 Continue home Xarelto, adjust due to abnormal renal function Qualifiers: Atrial fibrillation type: paroxysmal Qualified Code(s): I48.0 - Paroxysmal atrial fibrillation (4) Acute congestive heart failure Current Visit: No Status: Acute Assessment and plan: Acute exacerbation of diastolic CHF, LVEF 50-55% Continue Lasix, Aldactone, Toprol-XL Qualifiers: Congestive heart failure type: unspecified congestive heart failure type Qualified Code(s): I50.9 - Heart failure, unspecified (5) Type 2 diabetes mellitus Current Visit: No Status: Chronic Assessment and plan: Type 2 diabetes mellitus, insulin independent, hyperglycemia Continue insulin sliding scale, glucose checks Qualifiers: Diabetes mellitus complication status: with hyperglycemia Diabetes mellitus long term care social worker insulin use: with long term care social worker use Qualified Code(s): E11.65 - Type 2 diabetes mellitus with hyperglycemia; Z79.4 - 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 terminal (current) use of insulin; Z79.4 - USP (current) use of insulin; Z79.4 - USP ( current) use of insulin; Z79.4 - 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 terminal (current) use of insulin (6) Cirrhosis Current Visit: Yes Status: Chronic Assessment and plan: Patient does have massive ascites, abdomen is from, no signs of SBP Continue empiric IV antibiotics, IV Lasix, spironolactone Interventional radiology consult for paracentesis Qualifiers: Hepatic cirrhosis type: other cirrhosis Qualified Code(s): K74.69 - Other cirrhosis of liver (7) Morbid obesity with BMI of 40.0-44.9, adult Current Visit: Yes Status: Chronic Assessment and plan: Lifestyle changes encouraged, BMI 45.3 (8) DVT prophylaxis Current Visit: Yes Status: Acute Assessment and plan: Continue home dose of Xarelto - Time Spent With Patient 25 - 35 minutes - Subjective Interval history: Eczematous morning. Patient is awake and alert. Not in any distress. Sitting up in chair. Denies chest pain or shortness breath. No fever. Hemodynamically stable. Patient was admitted for CHF exacerbation and COPD exacerbation. Also has ascites due to cirrhosis. Patient also has sepsis secondary to UTI and probable versus pneumonia. No other acute events or complaints. - Constitutional Vitals: Temp Pulse Resp BP Pulse Ox 97.6 F 103 18 125/73 96 07/05/17 15:49 07/05/17 15:49 07/05/17 15:49 07/05/17 15:49 07/05/17 15:49 General appearance: Present: cooperative, A&O X 3, morbidly obese, pleasant, no acute distress, answers questions appropriately - Head Head exam: Present: atraumatic - Eye Eye exam: Present: EOMI - ENT ENT exam: Present: mucous membranes moist - Respiratory Respiratory exam: Present: CTAB. Absent: rales, rhonchi, wheezes, tachypnea - Cardiovascular Cardiovascular exam: Present: RRR, +S1, +S2 - GI/Abdominal GI/Abdominal exam: Present: distended (Massive ascites), firm ( secondary to ascites), no peritoneal signs. Absent: guarding, soft, tenderness - Extremities Exam Extremities exam: Present: pedal edema (Bilateral leg 3+ pitting edema up to the thighs bilaterally), radial pulses palpable and symmetrical. Absent: calf tenderness, cyanotic - Neurological Exam Neurological exam: Present: alert, oriented X3, no focal deficits. Absent: facial droop, speech deficit Internal Medicine: Result - Labs CBC & Chem 7: 07/05/17 13:43 07/05/17 06:23 Labs: Short CBC 07/05/17 07/05/17 Range/Units 06:23 13:43 WBC 12.3 H 13.2 H (4.3-11.1) K/mcL Hgb 6.8 L 7.9 L (12.9-16.9) g/dL Hct 24.2 L 26.7 L (37.5-50.1) % Plt Count 298 303 (140-400) K/mcL Neutrophils # 10.5 H 12.3 H (1.6-8.9) K/mcL BMP 07/05/17 06:23 Sodium 138 Potassium 4.7 H Chloride 105 Carbon Dioxide 23 BUN 54 H D Creatinine 1.76 H Glucose 321 H Calcium 9.0 - ABG Interpretation ABG results: PT/INR, D-dimer PT 16.0 Seconds (9.4-12.1) H 07/05/17 13:43 - Impressions Impressions Abdomen Ultrasound 07/05/17 15:00 IMPRESSION: Ascites within all 4 quadrants. D/ / Howard Johns MD / Howard Johns MD Interpreting Provider: Howard Johns MD Consult Discharge Plan - Plan Referrals: Damian Seymour MD [Primary Care Provider] - 07/11/17 1:30 pm
[2017-07-05] MEDS ORDERED: *HR* Rivaroxaban 15 MG TABLET PO SCH (18:00)
[2017-07-06] MEDS: Ipratropium/Albuterol Neb 3 ML IH SCH ×7 (00:18→23:41)
[2017-07-06 05:44] LABS: Basophils % 0.1 %; Eosinophils # 0.1 K/mcL (0.0-0.6); Eosinophils % 1.1 %; Hematocrit 24.7 % (37.5-50.1); Hemoglobin 7.3 g/dL (12.9-16.9); Immature Granulocytes % 0.6 % (0-4); Lymphocytes # 0.5 K/mcL (0.6-4.6); Lymphocytes % 4.4 %; Mean Corpuscular HGB Conc 29.6 g/dL (31.6-35.5); Mean Corpuscular Hemoglobin 25.4 pg (28.0-33.3); Mean Corpuscular Volume 86.1 fL (83.0-100.0); Mean Platelet Volume 9.8 fL (9.4-12.4); Monocytes # 1.1 K/mcL (0.0-1.3); Monocytes % 9.1 %; Neutrophils # 10.1 K/mcL (1.6-8.9); Nucleated Red Blood Cells 0.2 /100 WBC (0); Platelet Count 288 K/mcL (140-400); Red Blood Count 2.87 M/mcL (4.19-5.50); Red Cell Distribution Width 18.5 % (11.5-14.5); Segmented Neutrophils % 84.7 %
[2017-07-06 05:52] LABS: Albumin 2.8 g/dL (3.5-5.0); Albumin/Globulin Ratio 0.8 (1.1-2.2); Bilirubin,Total 0.4 mg/dL (0.2-1.2); Calcium 8.9 mg/dL (8.6-10.8); Globulin 3.6 g/dL (2.4-3.5); Potassium 4.6 mEq/L (3.5-4.5); Total Protein 6.4 g/dL (6.0-8.3)
[2017-07-06] MEDS: Cefepime HCl 1,000 MG in D5% in Water (Mini-Bag+) 100 ML IVPB SCH (06:17)
[2017-07-06] MEDS: Budesonide/Formoterol 160/4.5 MDI IH SCH ×2 (07:58→20:35)
[2017-07-06] MEDS: Aspirin 81 MG TAB.CHEW PO SCH (08:37)
[2017-07-06] MEDS: *HR* Amiodarone 200 MG TABLET PO SCH (08:37)
[2017-07-06] MEDS: Metoprolol XL (24 HR) Succ 50 MG TAB.ER.24H PO SCH (08:37)
[2017-07-06] MEDS: Spironolactone 25 MG TABLET PO SCH (08:37)
[2017-07-06] MEDS: Diltiazem CD (24hr) 180 MG CAPSULE PO SCH ×2 (08:37→20:56)
[2017-07-06] MEDS: Levofloxacin 500 MG/100 ML 500 MG/100 ML BAG IVPB SCH (08:38)
[2017-07-06] MEDS: Insulin LISPRO 300 UNITS/3 ML VIAL SQ SCH ×7 (08:39→22:36)
--- NOTE | 2017-07-06 11:29 | IR Procedure Note ---
Date of procedure: 07/06/17 Consent Obtained: Verbal consent, Written consent Timeout: Correct patient and procedure verified, Correct site verified, Time out performed, Skin prep completed Local anesthetic: Lidocaine 1% Indications: ascites Procedure Performed: paracentesis Site/Technique: RLQ Results/Findings: serous ascites Estimated blood loss (cc): 1 Complications: None; Tolerated procedure well
[2017-07-06] MEDS: Insulin DETEMIR 100 UNIT/ML X5UNITS SQ SCH ×2 (12:21→22:36)
[2017-07-06] MEDS: Albumin 25% 25gram/100mL 25 GM/100 ML IV.SOLN IVC SCH ×2 (15:28→17:09)
--- NOTE | 2017-07-06 15:52 | Internal Med Progress Note ---
Date of Encounter: 07/06/17 Time of Encounter: 10:20 - Assessment and plan (1) Sepsis Current Visit: Yes Status: Acute Assessment and plan: Present On admission, he met SIRS criteria with tachycardia, tachypnea, WBC 12.3 , and Lactic acid 2.5 - slowly improving Patient is on diuresis for pulm edema and CHF ,as well as hx of liver cirrhosis Will continue to monitor Source - PNA and UTI Chronic venous stasis changes bilateral legs, no evidence of cellulitis at this time NO IVF hydration at this time, BP is acceptable, will monitor closely Prelim blood culture negative urine culture with citrobacter fruendi - continue Levaquin Repeat labs in a.m., monitor closely Qualifiers: Sepsis type: sepsis due to unspecified organism Qualified Code(s): A41.9 - Sepsis, unspecified organism (2) Acute exacerbation of chronic obstructive airways disease Current Visit: Yes Status: Acute Assessment and plan: Continue steroids, Symbicort, antibiotics, and Duonebs - slowly improving (3) Afib Current Visit: Yes Status: Chronic Assessment and plan: HR controlled, CHADS-VASc Score 5 Continue home Xarelto, adjust due to abnormal renal function Restart anticoagulation today Qualifiers: Atrial fibrillation type: paroxysmal Qualified Code(s): I48.0 - Paroxysmal atrial fibrillation (4) Acute congestive heart failure Current Visit: No Status: Acute Assessment and plan: Acute exacerbation of diastolic CHF, LVEF 50-55% - slowly improving Continue, Lasix, Aldactone, Toprol-XL Qualifiers: Congestive heart failure type: unspecified congestive heart failure type Qualified Code(s): I50.9 - Heart failure, unspecified (5) Type 2 diabetes mellitus Current Visit: No Status: Chronic Assessment and plan: Type 2 diabetes mellitus, insulin independent, hyperglycemia Continue insulin sliding scale, glucose checks Qualifiers: Diabetes mellitus complication status: with hyperglycemia Diabetes mellitus mcfp insulin use: with adjunct faculty for medical terminology use Qualified Code(s): E11.65 - Type 2 diabetes mellitus with hyperglycemia; Z79.4 - senior living (current) use of insulin; Z79.4 - termite control technician (current) use of insulin; Z79.4 - termite control technician ( current) use of insulin; Z79.4 - senior living (current) use of insulin (6) Cirrhosis Current Visit: Yes Status: Chronic Assessment and plan: Patient does have massive ascites, abdomen is from, no signs of SBP Continue empiric IV antibiotics, IV Lasix, spironolactone Interventional radiology consult - paracentesis done today Ascitic Fluid for analysis (7) Morbid obesity with BMI of 40.0-44.9, adult Current Visit: Yes Status: Chronic Assessment and plan: Lifestyle changes encouraged, BMI 45.3 (8) DVT prophylaxis Current Visit: Yes Status: Acute Assessment and plan: Continue home dose of Xarelto - Time Spent With Patient 25 - 35 minutes - Subjective Interval history: Examined this morning. Patient is awake and alert. Not in any distress. Sitting up in chair. Denies chest pain or shortness breath. No fever. Hemodynamically stable. Patient was admitted for CHF exacerbation and COPD exacerbation. Also has ascites due to cirrhosis. Paracentesis done today. Patient also has sepsis secondary to UTI and probable versus pneumonia. No other acute events or complaints. - Constitutional Vitals: Temp Pulse Resp BP Pulse Ox 97.7 F 72 18 116/72 98 07/06/17 11:47 07/06/17 15:17 07/06/17 11:47 07/06/17 11:47 07/06/17 11:47 General appearance: Present: cooperative, A&O X 3, morbidly obese, pleasant, no acute distress, answers questions appropriately - Head Head exam: Present: atraumatic - Eye Eye exam: Present: EOMI - ENT ENT exam: Present: mucous membranes moist - Respiratory Respiratory exam: Present: decreased breath sounds (Slightly decreased in both bases, otherwise clear). Absent: rales, rhonchi, wheezes, tachypnea - Cardiovascular Cardiovascular exam: Present: RRR, +S1, +S2 - GI/Abdominal GI/Abdominal exam: Present: distended (Ascites), soft, no peritoneal signs. Absent: firm, guarding, tenderness - Extremities Exam Extremities exam: Present: pedal edema (Bilateral lower leg 3+ pitting edema up to the thighs bilaterally), radial pulses palpable and symmetrical. Absent: calf tenderness, cyanotic Additional comments: Patient has chronic venous stasis ulcers of both lower legs - Neurological Exam Neurological exam: Present: alert, oriented X3, no focal deficits. Absent: facial droop, speech deficit Internal Medicine: Result - Labs CBC & Chem 7: 07/06/17 05:15 07/06/17 05:15 Labs: Short CBC 07/06/17 Range/Units 05:15 WBC 11.9 H (4.3-11.1) K/mcL Hgb 7.3 L (12.9-16.9) g/dL Hct 24.7 L (37.5-50.1) % Plt Count 288 (140-400) K/mcL Neutrophils # 10.1 H (1.6-8.9) K/mcL BMP 07/06/17 05:15 Sodium 139 Potassium 4.6 H Chloride 107 Carbon Dioxide 26 BUN 55 H Creatinine 1.54 H Glucose 206 H Calcium 8.9 Liver Function 07/06/17 Range/Units 05:15 Total Bilirubin 0.4 (0.2-1.2) mg/dL AST 9 (5-34) Units/L ALT 17 (0-55) Units/L Alkaline Phosphatase 87 (38-126) Units/L Albumin 2.8 L (3.5-5.0) g/dL - ABG Interpretation ABG results: PT/INR, D-dimer PT 16.0 Seconds (9.4-12.1) H 07/05/17 13:43 - Impressions Impressions Paracentesis Ultrasound 07/06/17 00:00 IMPRESSION: Successful ultrasound guided paracentesis. D/ / Maximiliano Stanton MD / Maximiliano Stanton MD Interpreting Provider: Maximiliano Stanton MD - VTE Documentation of Mechanical Device: Intermittent pneumatic compression device Consult Discharge Plan - Plan Referrals: Damian Seymour MD [Primary Care Provider] - 07/11/17 1:30 pm
[2017-07-06] MEDS ORDERED: 0.9 % Sodium Chloride 250 ML ONE (17:29)
[2017-07-06 17:50] LABS: RBC,Peritoneal Fluid 0.006 M/mcL
[2017-07-06] MEDS ORDERED: *HR* Rivaroxaban 15 MG TABLET PO SCH (18:00)
[2017-07-06 18:23] LABS: LDH,Peritoneal Fluid 79 Units/L (No Ref Range)
[2017-07-06 18:34] LABS: Total Protein,Peritoneal Fluid 3.8 g/dL (No Ref Range)
[2017-07-06 19:23] LABS: Appearance of Peritoneal Fl CLOUDY (Clear)
[2017-07-07] MEDS: Ipratropium/Albuterol Neb 3 ML IH SCH ×3 (03:38→11:39)
[2017-07-07 07:46] LABS: Basophils % 0.2 %; Eosinophils # 0.3 K/mcL (0.0-0.6); Hematocrit 28.4 % (37.5-50.1); Hemoglobin 8.6 g/dL (12.9-16.9); Immature Granulocytes % 0.4 % (0-4); Lymphocytes # 0.6 K/mcL (0.6-4.6); Lymphocytes % 6.1 %; Mean Corpuscular HGB Conc 30.3 g/dL (31.6-35.5); Mean Corpuscular Hemoglobin 26.1 pg (28.0-33.3); Mean Corpuscular Volume 86.1 fL (83.0-100.0); Mean Platelet Volume 9.6 fL (9.4-12.4); Monocytes # 0.9 K/mcL (0.0-1.3); Monocytes % 9.4 %; Nucleated Red Blood Cells 0.3 /100 WBC (0); Platelet Count 324 K/mcL (140-400); Red Cell Distribution Width 18.6 % (11.5-14.5); Segmented Neutrophils % 80.9 %
[2017-07-07] MEDS: Budesonide/Formoterol 160/4.5 MDI IH SCH (07:48)
[2017-07-07 07:59] LABS: Calcium 8.8 mg/dL (8.6-10.8); Potassium 4.7 mEq/L (3.5-4.5)
[2017-07-07] MEDS: Metoprolol XL (24 HR) Succ 50 MG TAB.ER.24H PO SCH (08:37)
[2017-07-07] MEDS: *HR* Amiodarone 200 MG TABLET PO SCH (08:37)
[2017-07-07] MEDS: Spironolactone 25 MG TABLET PO SCH (08:37)
[2017-07-07] MEDS: Diltiazem CD (24hr) 180 MG CAPSULE PO SCH (08:37)
[2017-07-07] MEDS: Aspirin 81 MG TAB.CHEW PO SCH (08:37)
[2017-07-07] MEDS: Insulin LISPRO 300 UNITS/3 ML VIAL SQ SCH ×4 (08:38→13:17)
[2017-07-07] MEDS: Insulin DETEMIR 100 UNIT/ML X5UNITS SQ SCH (10:38)
[2017-07-07 11:24] VITALS: BP 102/64
--- NOTE | 2017-07-07 12:14 | Discharge Summary ---
Date of Encounter: 07/07/17 Time of Encounter: 09:40 - Discharge Diagnosis (1) Sepsis Priority: Primary Status: Acute Comments: Present On admission, he met SIRS criteria with tachycardia, tachypnea, WBC 12.3 , and Lactic acid 2.5 - now improved Patient is on diuresis for pulm edema and CHF ,as well as hx of liver cirrhosis Source - PNA and UTI Chronic venous stasis changes bilateral legs, no evidence of cellulitis at this time Prelim blood culture negative urine culture with citrobacter fruendi - continue Levaquin Repeat labs at [facility] Return symptoms worsen, advised to follow-up with primary care physician Qualifiers: Sepsis type: sepsis due to unspecified organism Qualified Code(s): A41.9 - Sepsis, unspecified organism (2) Acute exacerbation of chronic obstructive airways disease Priority: Primary Status: Acute Comments: Acute COPD exacerbation now improved Continue DuoNeb breathing treatment as needed, Symbicort and tapering dose of steroids Continue O2 via nasal cannula at 3 L (3) Chronic venous insufficiency Priority: Secondary Status: Chronic Comments: Chronic bilateral lower extremity venous stasis - no evidence of cellulitis Chronic venous stasis ulcers over both lower legs with bilateral 3+ pitting edema Continue dressing change daily, continue diuretics (4) Afib Priority: Primary Status: Chronic Comments: HR controlled, CHADS-VASc Score 5 Continue home Xarelto, adjust due to abnormal renal function Qualifiers: Atrial fibrillation type: paroxysmal Qualified Code(s): I48.0 - Paroxysmal atrial fibrillation (5) Acute congestive heart failure Priority: Primary Status: Acute Comments: Acute exacerbation of diastolic CHF, LVEF 50-55% - slowly improved Continue, Lasix, Aldactone, Toprol-XL Qualifiers: Congestive heart failure type: unspecified congestive heart failure type Qualified Code(s): I50.9 - Heart failure, unspecified (6) Type 2 diabetes mellitus Priority: Secondary Status: Chronic Comments: Type 2 diabetes mellitus, insulin independent, hyperglycemia Continue home dose of insulin Qualifiers: Diabetes mellitus complication status: with hyperglycemia Diabetes mellitus care home insulin use: with care home use Qualified Code(s): E11.65 - Type 2 diabetes mellitus with hyperglycemia; Z79.4 - care home (current) use of insulin; 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; Z79.4 - care home ( current) use of insulin; 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 (7) Cirrhosis Priority: Secondary Status: Chronic Comments: Patient does have massive ascites, abdomen is firm, no signs of SBP Continue empiric PO antibiotics, PO Lasix, Spironolactone Interventional radiology consult - paracentesis done, 6.5 L drained Ascitic Fluid analysis reviewed Qualifiers: Hepatic cirrhosis type: other cirrhosis Qualified Code(s): K74.69 - Other cirrhosis of liver (8) Morbid obesity with BMI of 40.0-44.9, adult Priority: Secondary Status: Chronic Comments: Lifestyle changes encouraged, BMI 45.3 - Discharge Medications Prescriptions: Haloperidol Oral Conc [Haldol] 0.5 mg PO Q2H PRN #10 udc PRN Reason: TERMINAL AGITATION levoFLOXacin [Levaquin] 500 mg PO DAILY 7 Days #7 tablet LORazepam [Ativan] 0.5 mg PO BID PRN #7 tablet PRN Reason: Anxiety Home Medications: Amiodarone [Cordarone] 200 mg PO DAILY 04/28/15 [History] Aspirin 81 mg PO DAILY 04/28/15 [History] Atorvastatin [Lipitor] 40 mg PO HS 04/28/15 [History] Ferrous Sulfate 325 mg PO BID 04/28/15 [History] Albuterol Sulfate [Proair Hfa] 2 puff IH Q4H PRN 01/25/17 [History] Metoprolol Succinate 200 mg PO DAILY 01/25/17 [History] Oxygen 3 l NS CONT 02/03/17 [History] Nitroglycerin 0.4 mg SL Q5MIN PRN #0 tab.subl 02/23/17 [Rx] metFORMIN [Glucophage] 1,000 mg PO BIDWM tablet 02/23/17 [Rx] Diltiazem HCl [Diltiazem 24Hr Cd] 180 mg PO BID 04/06/17 [History] Insulin LISPRO [HumaLOG] 4 - 8 units SQ TIDWM PRN 04/06/17 [History] Rivaroxaban [Xarelto] 20 mg PO DAILY 04/06/17 [History] Furosemide [Lasix] 80 mg PO BID 06/17/17 [History] Potassium Chloride 8 meq PO BID 06/17/17 [History] Spironolactone [Aldactone] 25 mg PO DAILY 06/17/17 [History] Budesonide/Formoterol 160/4.5 [Symbicort 160/4.5] 2 puff IH BIDR inhaler [Rx] Acetaminophen [Tylenol 650mg SUPP] 650 mg RC Q4H PRN 07/01/17 [History] Citalopram Hydrobromide [Celexa] 40 mg PO DAILY 07/01/17 [History] Hyoscyamine SL [Levsin Sl] 0.125 - 0.25 mg SL Q2H PRN 07/01/17 [History] Insulin DETEMIR [Levemir] 70 unit SQ BID 07/01/17 [History] Ipratropium/Albuterol Neb [Duoneb] 3 ml IH Q4HR PRN 07/01/17 [History] Linagliptin [Tradjenta] 5 mg PO DAILY 07/01/17 [History] Promethazine HCl [Phenadoz] 25 mg RC Q6H PRN 07/01/17 [History] Citalopram [CeleXA] 20 mg PO DAILY tablet 07/07/17 [Rx] Haloperidol Oral Conc [Haldol] 0.5 mg PO Q2H PRN #10 udc 07/07/17 [Rx] LORazepam [Ativan] 0.5 mg PO BID PRN #7 tablet 07/07/17 [Rx] Loperamide [Imodium] 2 mg PO Q6H PRN capsule 07/07/17 [Rx] Meclizine [Antivert] 25 mg PO QID PRN tablet 07/07/17 [Rx] Emeterio/Poly/Lalita OINT [Triple Antibiotic Ointment] 1 appl TP BID PRN tube 07/07/17 [Rx] levoFLOXacin [Levaquin] 500 mg PO DAILY 7 Days #7 tablet 07/07/17 [Rx] Allergies/Adverse Reactions: 3 Allergy/AdvReac Type Severity Reaction Status Date / Time bupropion [From Wellbutrin] Allergy Difficulty Verified 06/17/17 00:14 Breathing codeine Allergy Difficulty Verified 06/17/17 00:14 Breathing Opioids-Meperidine and Allergy Difficulty Verified 06/17/17 00:14 Related Breathing [Opioids-Meperidine & Related] Procedures/tests Complete & Pending: Procedures Performed prior 72 hours Category Date Time Status US abdomen limited [US] Stat Exams 07/05/17 15:00 Completed IR paracentesis ultrasound [IR] Routine IR 07/06/17 Completed Date of admission: 07/01/17 04:22 Primary care physician: Damian Seymour, Consults: 07/05/17 16:33 Consult to Interventional Radiology [CONS] Routine Consulting Provider: Radiology Interventional Cols Reason for Consult: Paracentesis for severe ascites. Please note that patient is on Xarelto for anticoagulation Call Completed: No Anticipated date of discharge: 07/07/17 - Patient Status Disposition: Transfer SNF Condition: Fair Functional capacity at discharge: uses cane/walker Overall status at discharge: patient is progressing back to baseline - Discharge Instructions Instructions: Heart Failure (DC), Chronic Obstructive Pulmonary Disease (DC), Meal Planning with Diabetes Exchanges (DC), Fluid Restriction (DC) Follow Up With: Damian Seymour MD [Primary Care Provider] - (Patient is going to [facility] no PCP appointment needed) Additional Instructions: Follow-up appointments: If there is not an appointment listed below, please call your physician and schedule a follow-up appointment. If you have congestive heart failure and your symptoms return, make an appointment with your physician. Medication List: Carry an up to date list of medications you are taking at all time. We have given you an updated medication list including any new medications that you have been prescribed. Please provide that list to your primary provider Symptoms: If your condition changes or you experience any of the following symptoms, notify your physician immediately: Unusual or worsening pain, fever, persistent nausea and vomiting, bleeding, increase in swelling (especially in your legs), sudden weight gain, extreme dizziness, chest pain, increased drainage or redness from a wound or incision. Go to the emergency department if you experience a problem with breathing. Weights: If you have a history of swelling or shortness of breath, weigh yourself daily and notify your physician if you have a weight gain of two or more pounds in one day or 5 or more pounds in a week. If you experience any of the warning signs for stroke: Sudden numbness or weakness of the face, arm or leg; especially on one side of the body, sudden confusion, trouble speaking or understanding, sudden trouble seeing in one or both eyes, sudden trouble walking, dizziness, loss of balance or coordination, sudden sever headache with no cause; Call 911 or go to the emergency room. Stroke is a medical emergency. Some risk factors for stroke: Age, cigarette smoking, diabetes, excessive alcohol consumption, family history , high blood pressure, overweight, physical inactivity, prior stroke, heart attack, diagnosis of carotid artery stenosis or other artery disease. If you smoke, STOP: Smoking or tobacco use significantly increases your risk of heart and lung disease. Your chance of disease greatly increases if you continue to smoke. For more information, call the [place] tobacco quit line for smoking cessation -NOW ( ) - Diet and Activity Activity: as per physical therapy, increase activity as tolerated, resume usual activities as tolerated, wear oxygen at all times Diet: diabetic diet, low fat, low cholesterol, low salt diet Hospital course: Mr. Diaz is a 71 year old male with past medical history of atrial fibrillation , arthritis, CHF, COPD, cirrhosis, diabetes, hyperlipidemia, hypertension and chronic kidney disease. Patient presented to the ED with complaints of shortness of breath and worsening bilateral lower leg edema. Patient is admitted for sepsis and hospital-acquired pneumonia with acute exacerbation of CHF. He was also diagnosed with acute exacerbation of COPD. Patient was started on IV Lasix and continued on Aldactone. He is also started on IV empiric antibiotics and also on DuoNeb breathing treatment. His shortness of breath and edema slowly improved. Patient does have chronic bilateral venous stasis ulcers on bilateral severe edema in his lower legs. Patient needs dressing change daily. He was continued on regular nebs and antibiotics and Symbicort as well. We continued his home dose of Xarelto for anticoagulation. Patient did have massive ascites and interventional radiology was consulted. Patient underwent paracentesis and 6.5 L of ascitic fluid was drained. Patient tolerated procedure well. Patient did not have any other acute events or complications during his stay in the hospital. He has been explained about his condition and plan of care in detail. He understood and agreed. No unanswered questions. He has been advised to continue oxygen use via nasal cannula at 3 L continuously. He will also need to use BiPAP at night. Advised to return if symptoms worsen. Patient is now tolerating oral diet well and as able to ambulate well. He is being discharged in a stable condition. - Time Spent with Patient Total time spent providing and/or coordinating discharge services: Greater than 30 minutes - Constitutional Vitals: Temp Pulse Resp BP Pulse Ox 97.6 F 107 18 102/64 97 10/26/17 11:21 07/07/17 11:21 07/07/17 11:40 07/07/17 11:21 07/07/17 11:40 General appearance: Present: cooperative, A&O X 3, morbidly obese, pleasant, no acute distress, answers questions appropriately - Head Head exam: Present: atraumatic - Eye Eye exam: Present: EOMI - ENT ENT exam: Present: mucous membranes moist - Respiratory Respiratory exam: Present: decreased breath sounds (Slightly decreased in both bases, otherwise clear). Absent: rales, rhonchi, wheezes, tachypnea - Cardiovascular Cardiovascular exam: Present: RRR, +S1, +S2 - GI/Abdominal GI/Abdominal exam: Present: distended (Patient does have significant ascites), firm (Secondary to ascites), no peritoneal signs. Absent: guarding, soft, tenderness - Extremities Exam Extremities exam: Present: pedal edema (Bilateral lower leg 3+ pitting edema up to the thighs), radial pulses palpable and symmetrical. Absent: calf tenderness , cyanotic Additional comments: Chronic venous stasis ulcers of both legs, dressing present over both legs - Neurological Exam Neurological exam: Present: alert, oriented X3, no focal deficits. Absent: facial droop, speech deficit - VTE Documentation of Mechanical Device: Intermittent pneumatic compression device
--- NOTE | 2017-07-07 12:35 | Physician Discharge Referral ---
ExtendedCare Referral Info Provider in Charge after Transfer: PCP Institutional Level of Care: Skilled - Diagnosis (1) Sepsis Priority: Primary Status: Acute (2) Acute exacerbation of chronic obstructive airways disease Priority: Primary Status: Acute (3) Chronic venous insufficiency Priority: Primary Status: Chronic (4) Afib Priority: Primary Status: Chronic (5) Acute congestive heart failure Priority: Primary Status: Acute (6) Type 2 diabetes mellitus Priority: Secondary Status: Chronic (7) Cirrhosis Priority: Secondary Status: Chronic (8) Morbid obesity with BMI of 40.0-44.9, adult Priority: Secondary Status: Chronic - Transfer Medications Prescriptions: Haloperidol Oral Conc [Haldol] 0.5 mg PO Q2H PRN #10 udc PRN Reason: TERMINAL AGITATION levoFLOXacin [Levaquin] 500 mg PO DAILY 7 Days #7 tablet LORazepam [Ativan] 0.5 mg PO BID PRN #7 tablet PRN Reason: Anxiety Home Medications: Amiodarone [Cordarone] 200 mg PO DAILY 04/28/15 [History] Aspirin 81 mg PO DAILY 04/28/15 [History] Atorvastatin [Lipitor] 40 mg PO HS 04/28/15 [History] Ferrous Sulfate 325 mg PO BID 04/28/15 [History] Albuterol Sulfate [Proair Hfa] 2 puff IH Q4H PRN 01/25/17 [History] Metoprolol Succinate 200 mg PO DAILY 01/25/17 [History] Oxygen 3 l NS CONT 02/03/17 [History] Nitroglycerin 0.4 mg SL Q5MIN PRN #0 tab.subl 02/23/17 [Rx] metFORMIN [Glucophage] 1,000 mg PO BIDWM tablet 02/23/17 [Rx] Diltiazem HCl [Diltiazem 24Hr Cd] 180 mg PO BID 04/06/17 [History] Insulin LISPRO [HumaLOG] 4 - 8 units SQ TIDWM PRN 04/06/17 [History] Rivaroxaban [Xarelto] 20 mg PO DAILY 04/06/17 [History] Furosemide [Lasix] 80 mg PO BID 06/17/17 [History] Potassium Chloride 8 meq PO BID 06/17/17 [History] Spironolactone [Aldactone] 25 mg PO DAILY 06/17/17 [History] Budesonide/Formoterol 160/4.5 [Symbicort 160/4.5] 2 puff IH BIDR inhaler [Rx] Acetaminophen [Tylenol 650mg SUPP] 650 mg RC Q4H PRN 07/01/17 [History] Citalopram Hydrobromide [Celexa] 40 mg PO DAILY 07/01/17 [History] Hyoscyamine SL [Levsin Sl] 0.125 - 0.25 mg SL Q2H PRN 07/01/17 [History] Insulin DETEMIR [Levemir] 70 unit SQ BID 07/01/17 [History] Ipratropium/Albuterol Neb [Duoneb] 3 ml IH Q4HR PRN 07/01/17 [History] Linagliptin [Tradjenta] 5 mg PO DAILY 07/01/17 [History] Promethazine HCl [Phenadoz] 25 mg RC Q6H PRN 07/01/17 [History] Citalopram [CeleXA] 20 mg PO DAILY tablet 07/07/17 [Rx] Haloperidol Oral Conc [Haldol] 0.5 mg PO Q2H PRN #10 udc 07/07/17 [Rx] LORazepam [Ativan] 0.5 mg PO BID PRN #7 tablet 07/07/17 [Rx] Loperamide [Imodium] 2 mg PO Q6H PRN capsule 07/07/17 [Rx] Meclizine [Antivert] 25 mg PO QID PRN tablet 07/07/17 [Rx] Emeterio/Poly/Lalita OINT [Triple Antibiotic Ointment] 1 appl TP BID PRN tube 07/07/17 [Rx] levoFLOXacin [Levaquin] 500 mg PO DAILY 7 Days #7 tablet 07/07/17 [Rx] Allergies/Adverse Reactions: 3 Allergy/AdvReac Type Severity Reaction Status Date / Time bupropion [From Wellbutrin] Allergy Difficulty Verified 06/17/17 00:14 Breathing codeine Allergy Difficulty Verified 06/17/17 00:14 Breathing Opioids-Meperidine and Allergy Difficulty Verified 06/17/17 00:14 Related Breathing [Opioids-Meperidine & Related] - Respiratory Orders Oxygen / L per min (3 L/m) Smoking Cessation: Smoking cessation has been advised. For more information, call the [place] Tobacco Quit Line at 4-370-PHWG-NOW. - Lab Orders Lab Orders: CBC (In 3 days), Other (include drug levels w/frequency) (CMP in 3 days) - Ancillary Orders May use pressure relief devices daily prn - Advance Directives Code Status: Full Code - Mobility Orders Ambulate - Rehabiliation Orders Rehab Potential: Fair Rehab Orders: Evaluation for Physical Therapy, Evaluation for Occupational Therapy - Treatments Skin tear care topically daily PRN per policy List/Other: Change dressing to both legs daily, chronic venous insufficiency with stasis ulcers - Diet Orders No Added Salt (LAMINE), Cardiac CERTIFICATION: I certify that the transfer of the above named patient to an Extended Care Facility is necessary for the continuing treatment of the diagnosis listed. The above information is true and accurate reflection of patient's current condition. Confidential - Redisclosure prohibited without a patient's written consent.
== END 2017-07-07 14:47 | DRG 871 ==
LOC: EMEROO 23:29 → 2NNU 23:29
PROVIDERS: ADMIT Internal Medicine; ATTEND Internal Medicine

== ENCOUNTER 2017-08-24 23:54 | Inpatient (IN) ==
[2017-08-25] MEDS ORDERED: Piperacillin/Tazobactam 4.5 GM in Water for inj. (sterile) 20 ML IVP ONE (00:32)
[2017-08-25] MEDS ORDERED: Vancomycin 1,000 MG in D5% in Water 250 ML IVPB ONE ×2 (00:32→03:00)
[2017-08-25] MEDS ORDERED: Levofloxacin 750 MG/150 ML 750 MG/150 ML BAG IVPB ONE (00:33)
[2017-08-25 00:35] LABS: Basophils # 0.1 K/mcL (0.0-0.2); Basophils % 0.5 %; Eosinophils # 0.2 K/mcL (0.0-0.6); Eosinophils % 1.4 %; Hematocrit 25.9 % (37.5-50.1); Immature Granulocytes % 0.6 % (0-4); Lymphocytes # 0.5 K/mcL (0.6-4.6); Lymphocytes % 4.3 %; Mean Corpuscular HGB Conc 29.7 g/dL (31.6-35.5); Mean Corpuscular Hemoglobin 26.3 pg (28.0-33.3); Mean Corpuscular Volume 88.4 fL (83.0-100.0); Mean Platelet Volume 9.2 fL (9.4-12.4); Monocytes # 0.9 K/mcL (0.0-1.3); Neutrophils # 9.8 K/mcL (1.6-8.9); Platelet Count 380 K/mcL (140-400); Red Blood Count 2.93 M/mcL (4.19-5.50); Red Cell Distribution Width 17.4 % (11.5-14.5); Segmented Neutrophils % 85.2 %
[2017-08-25 00:37] LABS: Hemoglobin 7.7 g/dL (12.9-16.9)
[2017-08-25 00:40] LABS: INR 1.4; Prothrombin Time 15.6 Seconds (9.4-12.1)
[2017-08-25] MEDS ORDERED: Propofol 500 MG/50 ML INFUS..BTL ONE (00:42)
[2017-08-25 00:48] LABS: Albumin 2.9 g/dL (3.5-5.0); Albumin/Globulin Ratio 0.6 (1.1-2.2); Bilirubin,Direct 0.4 mg/dL (0.0-0.5); Bilirubin,Indirect 0.3 mg/dL (0.0-1.2); Bilirubin,Total 0.7 mg/dL (0.2-1.2); Calcium 9.1 mg/dL (8.6-10.8); Globulin 5.1 g/dL (2.4-3.5)
[2017-08-25] MEDS ORDERED: *HR* Etomidate 20 MG/10 ML AMPUL IVP ONE (00:51)
[2017-08-25] MEDS ORDERED: *HR* Rocuronium Bromide 50 MG/5 ML VIAL IVP ONE (00:52)
[2017-08-25] MEDS ORDERED: Piperacillin/Tazobactam 3.375 GM in Water for inj. (sterile) 20 ML IVP ONE (01:00)
--- NOTE | 2017-08-25 01:13 | Emergency Department Note ---
Disposition Clinical Impression: Acute respiratory failure with hypoxia, Ascites, CHERRIE (acute kidney injury), Anemia, Acute congestive heart failure, Pneumonia Disposition: Admitted As Inpatient Condition: Serious General Adult HPI - General Chief complaint: ED Shortness of Breath/Dyspnea Stated complaint: WESLEY Time Seen by Provider: 08/24/17 23:56 Source: patient, EMS Limitations: no limitations Nursing Notes Reviewed: Yes Vital Signs Reviewed: Yes - History of Present Illness HPI Narrative: 71-year-old male with a past medical history of cirrhosis, ascites, diabetes, congestive heart failure, atrial fibrillation. The report from EMS was that the patient was having difficulty breathing and his SPO2 was in the 70s while on oxygen so EMS was called. There initially was concerned that he was comfort care only. On arrival however the patient said this is not true and he wants to be a full code. On arrival he admits to shortness of breath and fatigue. He is unable to give a detailed history as he falls asleep during questioning and has significant dyspnea. He is unable to answer whether he has had any fever or abdominal pain or any other significant medical complaints over the last few days. Pain Scale: 0 Consistency: constant Improves with: nothing Worsens with: nothing Associated symptoms: Reports: denies other symptoms Treatments Prior to Arrival: none - Related Data Home Medications Medication Instructions Recorded Confirmed Amiodarone [Cordarone] 200 mg PO DAILY 04/28/15 07/18/17 Aspirin 81 mg PO DAILY 04/28/15 07/18/17 Atorvastatin [Lipitor] 40 mg PO HS 04/28/15 07/18/17 Ferrous Sulfate 325 mg PO BID 04/28/15 07/18/17 Albuterol Sulfate [Proair Hfa] 2 puff IH Q4H PRN 01/25/17 07/18/17 Metoprolol Succinate 200 mg PO DAILY 01/25/17 07/18/17 Oxygen 3 l NS CONT 02/03/17 07/18/17 Diltiazem HCl [Diltiazem 24Hr Cd] 180 mg PO BID 04/06/17 07/18/17 Insulin LISPRO [HumaLOG] 4 - 8 units SQ TIDWM PRN 04/06/17 07/18/17 Rivaroxaban [Xarelto] 20 mg PO DAILY 04/06/17 07/18/17 Furosemide [Lasix] 80 mg PO BID 06/17/17 07/18/17 Potassium Chloride 8 meq PO BID 06/17/17 07/18/17 Spironolactone [Aldactone] 25 mg PO DAILY 06/17/17 07/18/17 Acetaminophen [Tylenol 650mg SUPP] 650 mg RC Q4H PRN 07/01/17 07/18/17 Hyoscyamine SL [Levsin Sl] 0.125 - 0.25 mg SL Q2H PRN 07/01/17 07/18/17 Insulin DETEMIR [Levemir] 70 unit SQ BID 07/01/17 07/18/17 Ipratropium/Albuterol Neb [Duoneb] 3 ml IH Q4HR PRN 07/01/17 07/18/17 Linagliptin [Tradjenta] 5 mg PO DAILY 07/01/17 07/18/17 Promethazine HCl [Phenadoz] 25 mg RC Q6H PRN 07/01/17 07/18/17 Previous Rx's Medication Instructions Recorded Nitroglycerin 0.4 mg SL Q5MIN PRN #0 tab.subl 02/23/17 metFORMIN [Glucophage] 1,000 mg PO BIDWM tablet 02/23/17 Budesonide/Formoterol 160/4.5 2 puff IH BIDR inhaler 06/20/17 [Symbicort 160/4.5] Citalopram [CeleXA] 20 mg PO DAILY tablet 07/07/17 Haloperidol Oral Conc [Haldol] 0.5 mg PO Q2H PRN #10 udc 07/07/17 LORazepam [Ativan] 0.5 mg PO BID PRN #7 tablet 07/07/17 Loperamide [Imodium] 2 mg PO Q6H PRN capsule 07/07/17 Meclizine [Antivert] 25 mg PO QID PRN tablet 07/07/17 Emeterio/Poly/Lalita OINT [Triple 1 appl TP BID PRN tube 07/07/17 Antibiotic Ointment] Allergies Allergy/AdvReac Type Severity Reaction Status Date / Time bupropion [From Wellbutrin] Allergy Difficulty Verified 06/17/17 00:14 Breathing codeine Allergy Difficulty Verified 06/17/17 00:14 Breathing Opioids-Meperidine and Allergy Difficulty Verified 06/17/17 00:14 Related Breathing [Opioids-Meperidine & Related] Limitations: ROS unobtainable due to patients medical condition Past Medical History - Past Medical History Medical history: Reports: arthritis, atrial fibrillation, CHF, COPD, diabetes, hyperlipidemia, hypertension, liver disease, renal disease Surgical history: Reports: orthopedic, other, pacemaker/AICD Psychiatric history: Reports: no psych history - Social History Smoking Status: Former smoker Smokeless Tobacco Status: No Alcohol use: Reports: none Drug use: Reports: none Physical Exam - General Limitations: no limitations General appearance: alert, lethargic - Head Head exam: atraumatic - Eye Eye exam: Present: normal appearance - ENT ENT exam: normal exam, normal oropharynx - Neck Neck exam: Present: normal inspection - Chest Chest inspection: Present: normal inspection - Respiratory Respiratory exam: Present: other (Diminished breath sounds throughout with coarse rhonchi.) - Cardiovascular Cardiovascular exam: Present: normal rhythm, tachycardia - Abdominal Exam Abdominal exam: Present: soft, distention (Ascites) - Extremities Exam Extremities exam: Present: other (Chronic venous stasis without overt cellulitis ) - Neurological Exam Neurological exam: Present: alert, other (Anxious. Moves all extremities.) - Skin Skin exam: Present: warm, dry Course Course Narrative: On my physical exam he was falling asleep during the entire questioning. He was unable to give answers to most of my questions. Due to this I was concerned about his airway. Eventually he became quite agitated and took off his oxygen and his oxygen saturations went down to 80%. He was trying to get out of the bed and was unable to tell me where he was going. Due to his hypoxia and my concern for safety I felt it was best to secure his airway so that we could start his treatment. He could not tolerate a bipap. Endotracheal intubation was performed by myself. Chest x-ray showing infiltrates which we will initially treat with vancomycin, Zosyn, Levaquin. Sedation with propofol/fentanyl. Vital Signs Temperature 97.7 F 08/24/17 23:56 Pulse Rate 100 08/24/17 23:56 Respiratory Rate 20 08/24/17 23:56 Blood Pressure 143/98 08/24/17 23:56 O2 Sat by Pulse Oximetry 100 08/24/17 23:56 Temperature 97.7 F 08/24/17 23:56 Pulse Rate 94 08/25/17 02:43 Respiratory Rate 16 08/25/17 02:43 Blood Pressure 127/84 08/25/17 02:43 O2 Sat by Pulse Oximetry 88 08/25/17 02:43 Oxygen Delivery Oxygen Delivery Ventilator Procedures - Intubation Time out performed: No (Emergent) sedative: Etomidate Mg Given: 40 paralytic: Rocuronium Mg Given: 100 Laryngoscope: fiber optic video scope ET Tube Size: 8 ET Tube Uncuffed: No Tube Secured Location: lips Tube Placement Confirmation: visualized tube passing through cords, equal breath sounds bilaterally, no breath sounds over epigastrium, confirmation by capnometry Patient Tolerated Procedure: other (Intubation started at 80% SPO2. He did desaturate during the intubation, but immediately returned to 95% after the tube was placed and ventilations started) Intubation Complications: hypoxia Medical Decision Making - Medical Records Medical records reviewed: Yes I reviewed the patient's medical records. - Lab Data Lab results reviewed: Yes I reviewed the patient's lab results. Result diagrams: 08/25/17 00:28 08/25/17 00:28 Lab Results 08/25/17 08/25/17 08/25/17 Range/Units 00:28 00:28 00:28 WBC 11.5 H (4.3-11.1) K/mcL RBC 2.93 L (4.19-5.50) M/mcL Hgb 7.7 L (12.9-16.9) g/dL Hct 25.9 L (37.5-50.1) % MCV 88.4 (83.0-100.0) fL MCH 26.3 L (28.0-33.3) pg MCHC 29.7 L (31.6-35.5) g/dL RDW 17.4 H (11.5-14.5) % Plt Count 380 (140-400) K/mcL MPV 9.2 L (9.4-12.4) fL Immature Gran % 0.6 (0-4) % Seg Neutrophils % 85.2 % Lymphocytes % 4.3 % Monocytes % 8.0 % Eosinophils % 1.4 % Basophils % 0.5 % Neutrophils # 9.8 H (1.6-8.9) K/mcL Lymphocytes # 0.5 L (0.6-4.6) K/mcL Monocytes # 0.9 (0.0-1.3) K/mcL Eosinophils # 0.2 (0.0-0.6) K/mcL Basophils # 0.1 (0.0-0.2) K/mcL PT 15.6 H (9.4-12.1) Seconds INR 1.4 Sample Site ABG pH (7.32-7.45) pH Units ABG pCO2 (35-45) mmHg ABG pO2 (85-104) mmHg ABG HCO3 (21-27) mEq/L ABG Total CO2 (20-26) mEq/L ABG O2 Saturation (95-98) % ABG Base Excess (-2 to 3) mEq/L Jayce Test Respiration Rate O2 Delivery Device Blood Gas Modality Inspired O2 (1-15=lpm [id number]=%) Tidal Volume cc PEEP cm H2O Sodium 135 L (136-145) mEq/L Potassium 5.0 H (3.5-4.5) mEq/L Chloride 96 L (98-109) mEq/L Carbon Dioxide 28 (19-29) mEq/L BUN 52 H (8-26) mg/dL Creatinine 2.16 H (0.72-1.25) mg/dL Est GFR ( Amer) 37 L (> 60) Est GFR (Non-Af Amer) 30 L (> 60) BUN/Creatinine Ratio 24 (6-26) Glucose 62 L (70-99) mg/dL Calculated Osmolality 292 (280-300) Lactic Acid (0.5-2.2) mmol/L Calcium 9.1 (8.6-10.8) mg/dL Total Bilirubin 0.7 (0.2-1.2) mg/dL Direct Bilirubin 0.4 (0.0-0.5) mg/dL Indirect Bilirubin 0.3 (0.0-1.2) mg/dL AST 20 (5-34) Units/L ALT 15 (0-55) Units/L Alkaline Phosphatase 109 (38-126) Units/L Ammonia (18-72) mcmol/L Troponin I (0-0.03) ng/mL B-Natriuretic Peptide (0-100) pg/mL Serum Total Protein 8.0 (6.0-8.3) g/dL Albumin 2.9 L (3.5-5.0) g/dL Globulin 5.1 H (2.4-3.5) g/dL Albumin/Globulin Ratio 0.6 L (1.1-2.2) 08/25/17 08/25/17 08/25/17 Range/Units 00:28 00:28 00:28 WBC (4.3-11.1) K/mcL RBC (4.19-5.50) M/mcL Hgb (12.9-16.9) g/dL Hct (37.5-50.1) % MCV (83.0-100.0) fL MCH (28.0-33.3) pg MCHC (31.6-35.5) g/dL RDW (11.5-14.5) % Plt Count (140-400) K/mcL MPV (9.4-12.4) fL Immature Gran % (0-4) % Seg Neutrophils % % Lymphocytes % % Monocytes % % Eosinophils % % Basophils % % Neutrophils # (1.6-8.9) K/mcL Lymphocytes # (0.6-4.6) K/mcL Monocytes # (0.0-1.3) K/mcL Eosinophils # (0.0-0.6) K/mcL Basophils # (0.0-0.2) K/mcL PT (9.4-12.1) Seconds INR Sample Site ABG pH (7.32-7.45) pH Units ABG pCO2 (35-45) mmHg ABG pO2 (85-104) mmHg ABG HCO3 (21-27) mEq/L ABG Total CO2 (20-26) mEq/L ABG O2 Saturation (95-98) % ABG Base Excess (-2 to 3) mEq/L Jayce Test Respiration Rate O2 Delivery Device Blood Gas Modality Inspired O2 (1-15=lpm [id number]=%) Tidal Volume cc PEEP cm H2O Sodium (136-145) mEq/L Potassium (3.5-4.5) mEq/L Chloride (98-109) mEq/L Carbon Dioxide (19-29) mEq/L BUN (8-26) mg/dL Creatinine (0.72-1.25) mg/dL Est GFR ( Amer) (> 60) Est GFR (Non-Af Amer) (> 60) BUN/Creatinine Ratio (6-26) Glucose (70-99) mg/dL Calculated Osmolality (280-300) Lactic Acid 0.8 (0.5-2.2) mmol/L Calcium (8.6-10.8) mg/dL Total Bilirubin (0.2-1.2) mg/dL Direct Bilirubin (0.0-0.5) mg/dL Indirect Bilirubin (0.0-1.2) mg/dL AST (5-34) Units/L ALT (0-55) Units/L Alkaline Phosphatase (38-126) Units/L Ammonia (18-72) mcmol/L Troponin I 0.01 (0-0.03) ng/mL B-Natriuretic Peptide 930 H (0-100) pg/mL Serum Total Protein (6.0-8.3) g/dL Albumin (3.5-5.0) g/dL Globulin (2.4-3.5) g/dL Albumin/Globulin Ratio (1.1-2.2) 08/25/17 08/25/17 08/25/17 Range/Units 00:28 00:55 01:12 WBC (4.3-11.1) K/mcL RBC (4.19-5.50) M/mcL Hgb (12.9-16.9) g/dL Hct (37.5-50.1) % MCV (83.0-100.0) fL MCH (28.0-33.3) pg MCHC (31.6-35.5) g/dL RDW (11.5-14.5) % Plt Count (140-400) K/mcL MPV (9.4-12.4) fL Immature Gran % (0-4) % Seg Neutrophils % % Lymphocytes % % Monocytes % % Eosinophils % % Basophils % % Neutrophils # (1.6-8.9) K/mcL Lymphocytes # (0.6-4.6) K/mcL Monocytes # (0.0-1.3) K/mcL Eosinophils # (0.0-0.6) K/mcL Basophils # (0.0-0.2) K/mcL PT (9.4-12.1) Seconds INR Sample Site R Radial ABG pH 7.34 (7.32-7.45) pH Units ABG pCO2 57 H (35-45) mmHg ABG pO2 70 L (85-104) mmHg ABG HCO3 31 H (21-27) mEq/L ABG Total CO2 32 H (20-26) mEq/L ABG O2 Saturation 92 L (95-98) % ABG Base Excess 4 H (-2 to 3) mEq/L Jayce Test N/A Respiration Rate 16 O2 Delivery Device Adult Vent Blood Gas Modality VC Inspired O2 100.0 (1-15=lpm [id number]=%) Tidal Volume 550 cc PEEP 5 cm H2O Sodium (136-145) mEq/L Potassium (3.5-4.5) mEq/L Chloride (98-109) mEq/L Carbon Dioxide (19-29) mEq/L BUN (8-26) mg/dL Creatinine (0.72-1.25) mg/dL Est GFR ( Amer) (> 60) Est GFR (Non-Af Amer) (> 60) BUN/Creatinine Ratio (6-26) Glucose (70-99) mg/dL Calculated Osmolality (280-300) Lactic Acid 0.9 (0.5-2.2) mmol/L Calcium (8.6-10.8) mg/dL Total Bilirubin (0.2-1.2) mg/dL Direct Bilirubin (0.0-0.5) mg/dL Indirect Bilirubin (0.0-1.2) mg/dL AST (5-34) Units/L ALT (0-55) Units/L Alkaline Phosphatase (38-126) Units/L Ammonia 27 (18-72) mcmol/L Troponin I (0-0.03) ng/mL B-Natriuretic Peptide (0-100) pg/mL Serum Total Protein (6.0-8.3) g/dL Albumin (3.5-5.0) g/dL Globulin (2.4-3.5) g/dL Albumin/Globulin Ratio (1.1-2.2) - Radiology Data Radiology results reviewed: Yes I reviewed the patient's radiology results. - EKG Data EKG #1 EKG attestation: Yes I reviewed and interpreted this EKG. Interpretation: other (Heart rate of 100. There is slight QT prolongation at 50. His prior EKG showed QT prolongation also of 457. QRS duration of 204 which is similar to 189 on prior EKG.) Attestation Statement - Attestation Attestation: I examined this patient and my medical decision-making was reviewed with the Resident Physician. I agree with the documented findings, disposition and treatment plan as described except to the extent set forth below. Findings consistent with respiratory failure. Patient presented acutely hypoxic, agitated, noncompliant with BiPAP or attempts of resuscitation. Patient was not able to make his decisions but Expressing his desire to be intubated and have acute resuscitation performed despite him being previously on hospice. He said he never agreed to hospice care. He wants to be able to breathe. He is not agreeable to DNR status. The patient was intubated emergently and successfully with first pass intubation. Patient was subsequently sedated with propofol. Remains intubated with ongoing intermittent hypoxia related to bilateral infiltrates as well as possible loculated pleural effusion. The patient will be admitted after initiation of broad-spectrum antibiotic therapy. The patient has baseline widened QRS and prolonged QT. Potassium level was stable. I spent greater than 120 minutes of critical care time resuscitating this acutely ill patient suffering from respiratory failure requiring emergent intubation and ongoing bed management. This was excluding billable procedures. The patient remained in my care for over 2 hours.
[2017-08-25 01:17] LABS: ABG Base Excess 4 mEq/L (-2 to 3); ABG HCO3 31 mEq/L (21-27); ABG Oxygen Saturation 92 % (95-98); ABG PCO2 57 mmHg (35-45); ABG PH 7.34 pH Units (7.32-7.45); ABG PO2 70 mmHg (85-104); ABG TCO2 32 mEq/L (20-26); Blood Gas Modality VC; Blood Gas PEEP 5 cm H2O; Blood Gas Respiration Rate 16; Blood Gas VT 550 cc
[2017-08-25] MEDS ORDERED: Furosemide 40 MG/4 ML VIAL IVP ONE (01:38)
--- NOTE | 2017-08-25 02:17 | Internal Med History&Physical ---
<Ang Segovia - Last Filed: 08/25/17 04:31> Date of Encounter: 08/25/17 Time of Encounter: 02:15 Assessment and Plan (1) Acute hypercapnic respiratory failure Current visit: Yes Status: Acute EMS states his spO2 - 70s at the [facility]. Improved with non-rebreather but patient persisting removed from his face and O2 dropped to 80s. Endotracheal intubation was performed in the ED Initial ABG shows hypercapnic respiratory acidosis with renal compensation - pH 7.34, pCO2 57, pO2 70 and HCO3 31 - Vent - RR 12, Inspir O2 80, TV 550 and PEEP 5 Goal will be back to baseline with patient using 3L O2 NC at home Plan: Sedation - Fentanyl and Propofol Repeat ABG shows pH 7.26, pCO2 70, pO2 69 and HCO3 33 - Increased minute volume with increasing TV to 600 and RR to 16 - Repeating ABG at 0800 Oral and Eye care q2 turns Patient does not appear to be septic with vital signs stable We will continue to follow closely overnight Plan for morning team to start the extubation process if indicated (2) Pneumonia Current visit: Yes Status: Acute CXR shows bilateral infiltrates with moderate right pleural effusion WBC 11.5 VSS Lactic acid 0.8 ED gave Vanco, Zosyn and Levaquin Exam - wheezing and rhonchi throughout Plan: We will treat the PNA as HCAP as he is a resident of [facility] and recently admitted here at [facility] Abx - Cefepime and Vancomycin Solu-Medrol Duo-nebs Blood cultures taken Repeat am labs Qualifiers: Pneumonia type: due to unspecified organism Laterality: bilateral Lung location: unspecified part of lung Qualified Code(s): J18.9 - Pneumonia, unspecified organism (3) Acute exacerbation of CHF (congestive heart failure) Current visit: No Status: Acute Last known ECHO showed EF 50-55% on 04/23/17 BNP 930 2+ pitting edema LE bilateral CXR shows bilateral infiltrates with moderate right pleural effusion and pulmonary edema Takes Toprol and Spironolactone at home Plan: Lasix 40mg IV BID Daily weight Strict I&Os Elevate head of bed Patton IV Lopressor 5mg q6hr PRN if HR >100 Qualifiers: Congestive heart failure type: combined Qualified Code(s): I50.43 - Acute on chronic combined systolic (congestive) and diastolic (congestive) heart failure (4) Pulmonary edema Current visit: No Status: Acute See above Qualifiers: Chronicity: acute Qualified Code(s): J81.0 - Acute pulmonary edema (5) Cirrhosis Current visit: No Status: Chronic Patient to have significant ascites on examination IR consult for paracentesis Lasix 40mg IV BID Patient did have mental status alterations in the ED without abdominal tenderness. Cefepime and Vancomycin for PNA and empiric coverage for SBP Qualifiers: Hepatic cirrhosis type: unspecified hepatic cirrhosis Ascites presence: with ascites Qualified Code(s): K74.60 - Unspecified cirrhosis of liver (6) [id number] kidney injury Current visit: No Status: Acute BUN 52 and Cr 2.16 Slightly above baseline Will monitor for diuresis toleration Qualifiers: Acute renal failure type: unspecified Chronic kidney disease stage: unspecified stage Qualified Code(s): N17.9 - Acute kidney failure, unspecified ; N18.9 - Chronic kidney disease, unspecified; N18.9 - Chronic kidney disease, unspecified (7) Afib Current visit: No Status: Chronic Heart rate is controlled at this time (90s). Takes Xarelto at home. Cardiac monitoring Likely transition to extubation tomorrow and will resume PO medications at that time. Will hold anticoagulation for now Qualifiers: Atrial fibrillation type: paroxysmal Qualified Code(s): I48.0 - Paroxysmal atrial fibrillation (8) Chronic venous insufficiency Current visit: No Status: Chronic Chronic venous statis ulcers on bilateral lower extremities Bilateral LE 2+ pitting edema PT pulses intact Dressing changes Lasix 40mg IV BID (9) Diabetes mellitus Current visit: No Status: Acute LDSS for now Qualifiers: Diabetes mellitus type: type 2 Diabetes mellitus complication status: with circulatory complication Diabetes mellitus complication detail: with other circulatory complications Diabetes mellitus assisted insulin use: with telephone clerk telegraph office use Qualified Code(s): E11.59 - Type 2 diabetes mellitus with other circulatory complications; 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 Diaz is a 71 year old male with a past medical history of cirrhosis, ascites, DM, CHF, atrial fibrillation and COPD who presented via EMS to the [facility] with a chief complaint of difficulty breathing. Per EMS and ER physician, patient was hypoxic with O2 in the 70s with nursing placing him on oxygen at the facility. He was unable to tolerate Bipap along with decline in mental status, agitation and hypoxia prompted endotracheal intubation. Therefore, patient was unable to give adequate history for this HPI. Initial workup shows WBC 11.5, Hgb 7.7, K 5.0, BUN 52, Cr 2.16, Lactic acid 0.8 and BNP 930. ABG showed pH 7.34, pCO2 57, pO2 70 and HCO3 31. CXR showed bilateral infiltrates with moderate right pleural effusion. Vitals signs are stable. ED gave Vancomycin, Zosyn and Levaquin with Lasix 40 IV. Blood cultures taken. On evaluation, patient was sedated while on the ventilator. We admit patient to the ICU for further workup and management. Past Med Surg Social Fam HX - Past Medical History Medical history: arthritis, atrial fibrillation, CHF, COPD, diabetes, hyperlipidemia, hypertension, liver disease, renal disease Psychiatric history: no psych history - Past Surgical History Surgical History: orthopedic, other, pacemaker/AICD - Social History Smoking Status: Former smoker Smokeless Tobacco Status: No Alcohol use: none Drug use: none - Family History Father Hx Family Cardiac Disorders: Yes (Triple Bypass) Hx Family Endocrine Disorder: Yes (DM) Mother Family Member Ethnicity: Non- Living Status: Internal Medicine - H&P: Meds Amiodarone [Cordarone] 200 mg PO DAILY 04/28/15 [History] Aspirin 81 mg PO DAILY 04/28/15 [History] Atorvastatin [Lipitor] 40 mg PO HS 04/28/15 [History] Ferrous Sulfate 325 mg PO BID 04/28/15 [History] Albuterol Sulfate [Proair Hfa] 2 puff IH Q4H PRN 01/25/17 [History] Metoprolol Succinate 200 mg PO DAILY 01/25/17 [History] Oxygen 3 l NS CONT 02/03/17 [History] Nitroglycerin 0.4 mg SL Q5MIN PRN #0 tab.subl 02/23/17 [Rx] metFORMIN [Glucophage] 1,000 mg PO BIDWM tablet 02/23/17 [Rx] Diltiazem HCl [Diltiazem 24Hr Cd] 180 mg PO BID 04/06/17 [History] Insulin LISPRO [HumaLOG] 4 - 8 units SQ TIDWM PRN 04/06/17 [History] Rivaroxaban [Xarelto] 20 mg PO DAILY 04/06/17 [History] Furosemide [Lasix] 80 mg PO BID 06/17/17 [History] Potassium Chloride 8 meq PO BID 06/17/17 [History] Spironolactone [Aldactone] 25 mg PO DAILY 06/17/17 [History] Budesonide/Formoterol 160/4.5 [Symbicort 160/4.5] 2 puff IH BIDR inhaler [Rx] Acetaminophen [Tylenol 650mg SUPP] 650 mg RC Q4H PRN 07/01/17 [History] Hyoscyamine SL [Levsin Sl] 0.125 - 0.25 mg SL Q2H PRN 07/01/17 [History] Insulin DETEMIR [Levemir] 70 unit SQ BID 07/01/17 [History] Ipratropium/Albuterol Neb [Duoneb] 3 ml IH Q4HR PRN 07/01/17 [History] Linagliptin [Tradjenta] 5 mg PO DAILY 07/01/17 [History] Promethazine HCl [Phenadoz] 25 mg RC Q6H PRN 07/01/17 [History] Citalopram [CeleXA] 20 mg PO DAILY tablet 07/07/17 [Rx] Haloperidol Oral Conc [Haldol] 0.5 mg PO Q2H PRN #10 udc 07/07/17 [Rx] LORazepam [Ativan] 0.5 mg PO BID PRN #7 tablet 07/07/17 [Rx] Loperamide [Imodium] 2 mg PO Q6H PRN capsule 07/07/17 [Rx] Meclizine [Antivert] 25 mg PO QID PRN tablet 07/07/17 [Rx] Emeterio/Poly/Lalita OINT [Triple Antibiotic Ointment] 1 appl TP BID PRN tube 07/07/17 [Rx] 3 Allergy/AdvReac Type Severity Reaction Status Date / Time bupropion [From Wellbutrin] Allergy Difficulty Verified 06/17/17 00:14 Breathing codeine Allergy Difficulty Verified 06/17/17 00:14 Breathing Opioids-Meperidine and Allergy Difficulty Verified 06/17/17 00:14 Related Breathing [Opioids-Meperidine & Related] ROS unobtainable: due to endotracheal tube All Systems PM: A 10-system review of systems was performed and is negative for pertinent findings except as documented above in the HPI. - Constitutional Vitals: Temp Pulse Resp BP Pulse Ox 97.7 F 96 13 148/96 89 08/24/17 23:56 08/25/17 01:57 08/25/17 01:57 08/25/17 01:57 08/25/17 01:57 Exam: sedated with intubation - Head Head exam: Present: atraumatic, normocephalic - Eye Eye exam: Present: PERRL - ENT ENT exam: Present: mucous membranes moist - Neck Neck exam general surgery: Present: trachea midline - Respiratory Additional comments: On vent, wheezing heard throughout with rales heard with mild rales - Cardiovascular Cardiovascular exam: Present: +S1, +S2, tachycardia - GI/Abdominal GI/Abdominal exam: Present: diminished bowel sounds Additional comments: ascites - Extremities Exam Additional comments: stasis dermatitis with 2+ pitting edema, padding around lower legs, PT pulses b/ l 1+ - Neurological Exam Additional comments: unable to assess - Skin Skin exam: Present: dry, warm Internal Med - H&P Results - Labs CBC & Chem 7: 08/25/17 00:28 08/25/17 00:28 Labs: Short CBC 08/25/17 Range/Units 00:28 WBC 11.5 H (4.3-11.1) K/mcL Hgb 7.7 L (12.9-16.9) g/dL Hct 25.9 L (37.5-50.1) % Plt Count 380 (140-400) K/mcL Neutrophils # 9.8 H (1.6-8.9) K/mcL BMP 08/25/17 00:28 Sodium 135 L Potassium 5.0 H Chloride 96 L Carbon Dioxide 28 BUN 52 H Creatinine 2.16 H Glucose 62 L Calcium 9.1 Cardiac Enzymes 08/25/17 Range/Units 00:28 Troponin I 0.01 (0-0.03) ng/mL Liver Function 08/25/17 Range/Units 00:28 Total Bilirubin 0.7 (0.2-1.2) mg/dL Direct Bilirubin 0.4 (0.0-0.5) mg/dL AST 20 (5-34) Units/L ALT 15 (0-55) Units/L Alkaline Phosphatase 109 (38-126) Units/L Albumin 2.9 L (3.5-5.0) g/dL - ABG Interpretation ABG results: 08/25/17 01:12 ABG pH 7.34 ABG pCO2 57 H ABG pO2 70 L ABG HCO3 31 H ABG Total CO2 32 H ABG O2 Saturation 92 L ABG Base Excess 4 H - Impressions ITS Impressions Chest X-Ray 08/25/17 00:45 IMPRESSION: Endotracheal tube tip 4.5 cm above the lidia. Otherwise, stable exam. D/ / Maximiliano Stanton MD / Maximiliano Stanton MD Interpreting Provider: Maximiliano Stanton MD Chest X-Ray 08/25/17 23:56 IMPRESSION: Increased bilateral perihilar infiltrates, CHF versus pneumonia. Moderate loculated right pleural effusion with right basilar volume loss. D/ / Yann Evans MD / Yann Evans MD Interpreting Provider: aYnn Evans MD <Kimi Swain - Last Filed: 08/25/17 05:23> Date of Encounter: 08/25/17 Internal Medicine - H&P: HPI History of present illness: Mr. Diaz is a 71 year old male All Systems PM: A 10-system review of systems was performed and is negative for pertinent findings except as documented above in the HPI. - Constitutional Vitals: Temp Pulse Resp BP Pulse Ox 96.2 F L 95 18 135/87 96 08/25/17 03:00 08/25/17 05:00 08/25/17 05:00 08/25/17 05:00 08/25/17 05:00 Internal Med - H&P Results - Labs CBC & Chem 7: 08/25/17 00:28 08/25/17 00:28 - ABG Interpretation ABG results: 08/25/17 04:17 ABG pH 7.26 L ABG pCO2 70 H* ABG pO2 69 L ABG HCO3 31 H ABG Total CO2 33 H ABG O2 Saturation 89 L ABG Base Excess 3 - Impressions ITS Impressions Chest X-Ray 08/25/17 23:56 IMPRESSION: Increased bilateral perihilar infiltrates, CHF versus pneumonia. Moderate loculated right pleural effusion with right basilar volume loss. D/ / Yann Evans MD / Yann Evans MD Interpreting Provider: Yann Evans MD - Attending Attestation I examined this patient and my medical decision-making was reviewed with the Resident Physician Dr. Segovia. I agree with the documented findings, disposition and treatment plan as described except to the extent set forth below. Mr. Diaz is a 71 year old male with a past medical history of cirrhosis, ascites, DM, CHF, atrial fibrillation and COPD who presented via EMS to the [facility] Department with a chief complaint of difficulty breathing. Per EMS and ER physician, patient was hypoxic with O2 in the 70s with nursing placing him on oxygen at the facility. He was unable to tolerate Bipap along with decline in mental status, agitation and hypoxia prompted endotracheal intubation in the ER. He is currently on Propafolol and fentanyl gtt for sedation Gne; Sedated Chest: Diminished BS, Severe diffuse wheezing Heart; S1S2+ RRR No murmurs Abd; Distended.. Edematous abdomen wall Ext: 2 + Pitting edema a/p 1. Acute VDRF 2. Acute on chronic hypoxic and hypercapneic resp failure 3. Diffuse Anasarca 4. Acute Pulm edema due to CHF exacerbation 5. Acute on chronic diastolic CHF exacerbation 6. Acute MLL Pneumonia - mostly bacterial 7. CHERRIE Reviewed repeat ABG -- Worsening Resp acidosis so inc TV to 600 and RR to 16 repeat ABG in few hrs Critical care team consulted Empirical abx IV Lasix Strict I & O IV steroids + Duoneb IR consulted for possible paracentesis
[2017-08-25] MEDS ORDERED: Naloxone 0.4 MG/ML INJ IVP PRN (02:42)
[2017-08-25] MEDS ORDERED: Dextrose Gel 15 GM PO PRN ×2 (02:49)
[2017-08-25] MEDS ORDERED: D5% in Water 1,000 ML IVC PRN (02:49)
[2017-08-25] MEDS ORDERED: *HR* Dextrose 50 % in Water (Syg) 50 ML SYRINGE IVP PRN (02:49)
[2017-08-25] MEDS ORDERED: Vancomycin 2,000 MG in D5% in Water 250 ML IVPB SCH (03:00)
[2017-08-25] MEDS ORDERED: Lacri-Lube 3.5 GM TUBE BOTH EYES PRN (03:01)
[2017-08-25] MEDS ORDERED: *HR* Metoprolol 5 MG/5 ML VIAL IVP PRN (04:04)
[2017-08-25] MEDS: FentaNYL (PF) 1,000 MCG in 0.9 % Sodium Chloride 80 ML IVC SCH (04:09)
[2017-08-25] MEDS: Lacri-Lube 3.5 GM TUBE BOTH EYES SCH ×5 (04:11→22:10)
[2017-08-25] MEDS: Ipratropium/Albuterol Neb 3 ML IH SCH ×4 (04:18→22:01)
[2017-08-25 04:24] LABS: ABG Base Excess 3 mEq/L (-2 to 3); ABG HCO3 31 mEq/L (21-27); ABG Oxygen Saturation 89 % (95-98); ABG PCO2 70 mmHg (35-45); ABG PH 7.26 pH Units (7.32-7.45); ABG PO2 69 mmHg (85-104); ABG TCO2 33 mEq/L (20-26); Blood Gas Modality VC; Blood Gas Respiration Rate 12; Blood Gas VT 550 cc
[2017-08-25] MEDS: methylPREDNISolone 125 MG/2 ML VIAL IVP SCH ×4 (05:13→22:08)
[2017-08-25] MEDS: Cefepime HCl 1,000 MG in Water for inj. (sterile) 10 ML IVP SCH ×2 (05:30→17:14)
[2017-08-25] MEDS ORDERED: Cefepime HCl 1,000 MG in D5% in Water (Mini-Bag+) 100 ML IVPB SCH (06:00)
[2017-08-25] MEDS ORDERED: Insulin LISPRO 300 UNITS/3 ML VIAL SQ SCH (07:30)
--- NOTE | 2017-08-25 08:25 | Pulmonology Consult Note ---
<Sonja Pickett - Last Filed: 08/25/17 15:59> Date of Encounter: 08/25/17 Time of Encounter: 07:00 Assessment and Plan (1) Acute and chronic respiratory failure Current Visit: No Status: Acute - Respiratory distress unable to tolerate BiPAP and intubated in ED. - With hypoxia (reported O2 sat drop to 70% at home) and hypercapnia (pCO2 as high as 70). - Likely multifactorial including CHF, significant ascites, COPD and questionable pneumonia. - S/p paracentesis for ascites. Continue diuresis for CHF, steroid & bronchodilators for COPD and antibiotics for pneumonia. - Currently intubated and on ventilation support. Will likely try spontaneous breathing trial and possible extubation if appropriated tomorrow. - Continue close monitoring in ICU. Qualifiers: Respiratory failure complication: hypoxia and hypercapnia Qualified Code(s) : J96.21 - Acute and chronic respiratory failure with hypoxia; J96.22 - Acute and chronic respiratory failure with hypercapnia; J96.22 - Acute and chronic respiratory failure with hypercapnia; J96.22 - Acute and chronic respiratory failure with hypercapnia (2) Acute exacerbation of CHF (congestive heart failure) Current Visit: No Status: Acute - Elevated BNP at 930 on admission. - Likely contributes to his current respiratory failure. - Echo from 04/23/17: LVEF 50-55% with indeterminate LV diastolic function. Dilated IVC lacking respiratory collapse suggesting elevated RA pressure. - Continue diuresis with Lasix. - Strict I/O and daily weight. Qualifiers: Congestive heart failure type: combined Qualified Code(s): I50.43 - Acute on chronic combined systolic (congestive) and diastolic (congestive) heart failure (3) Ascites Current Visit: Yes Status: Chronic - Significant ascites noted on exam and likely contributes to patient's current respiratory failure. - S/p paracentesis by IR at bedside with more than 10L ascites fluid drained today. - Ascites fluid study does not suggest SBP (Total nuclear cells 229 with 54% neutrophils). - SAAG 1.5 but ascites fluid total protein 4.6 suggests more likely cardiac ascites than cirrhosis. Qualifiers: Ascites type: other type Qualified Code(s): R18.8 - Other ascites (4) COPD (chronic obstructive pulmonary disease) Current Visit: No Status: Chronic - Continue steroid and Duoneb. Qualifiers: COPD type: COPD with acute exacerbation Qualified Code(s): J44.1 - Chronic obstructive pulmonary disease with (acute) exacerbation (5) Pneumonia Current Visit: Yes Status: Acute - CXR found increased bilateral perihilar infiltrates concerning of CHF versus pneumonia. - Feel more likely pulmonary edema rather than pneumonia but patient did have leukocytosis on admission so will continue IV vancomycin and vefepime for now. - Blood culture pending and will obtain sputum culture if possible. Further de- escalation based on clinical picture and culture result. Qualifiers: Pneumonia type: due to unspecified organism Laterality: bilateral Lung location: unspecified part of lung Qualified Code(s): J18.9 - Pneumonia, unspecified organism (6) Fdxap-po-ziqtyfi kidney injury Current Visit: No Status: Acute - SCr 2.16 / eGFR 30 on admission, worsen compared to Scr 1.41 / eGFR 49 on . - Avoid nephrotoxin. - Continue to monitor renal function and electrolytes closely. Qualifiers: Acute renal failure type: unspecified Chronic kidney disease stage: unspecified stage Qualified Code(s): N17.9 - Acute kidney failure, unspecified ; N18.9 - Chronic kidney disease, unspecified; N18.9 - Chronic kidney disease, unspecified (7) Hyperkalemia Current Visit: Yes Status: Acute - K 5.0 on admission. - Likely secondary to home potassium use in the setting of current renal insufficiency. - K increased to 5.3 this morning. - Will give one dose of Kayexalate 30 gram. - Continue to monitor. (8) Afib Current Visit: No Status: Chronic - Currently rate controlled and continue metoprolol. - On Xarelto at home and will resume once patient is able to take PO medications. Qualifiers: Atrial fibrillation type: paroxysmal Qualified Code(s): I48.0 - Paroxysmal atrial fibrillation (9) Diabetes mellitus Current Visit: No Status: Acute - Continue insulin sliding scale with glucose monitoring. Qualifiers: Diabetes mellitus type: type 2 Diabetes mellitus complication status: with circulatory complication Diabetes mellitus complication detail: with other circulatory complications Diabetes mellitus care home insulin use: with care home use Qualified Code(s): E11.59 - Type 2 diabetes mellitus with other circulatory complications; Z79.4 - FDC (current) use of insulin; Z79.4 - FDC (current) use of insulin; Z79.4 - soup person (current) use of insulin; Z79.4 - soup person (current) use of insulin (10) DVT prophylaxis Current Visit: No Status: Acute - Continue SQ heparin. GI prophylaxis: Protonix IV. (11) Goals of care, counseling/discussion Current Visit: Yes Status: Acute - Given patient's current status, will need to verify patient's code status. Per nurse, patient's who is also his POA has difficulty to travel here. Plan to have palliative care team involved to discuss with patient's POA and family regarding goal of care. History of Present Illness Consult date: 08/25/17 Requesting physician: Ang Segovia Reason for consult: dyspnea (Acute on chronic respiratory failure, CHF exacerbation, ventilation support) Chief complaint: Shortness of breath History of present illness: Mr. Diaz is a 71 year-old male with a PMH of cirrhosis, ascites, CHF, A-fib, COPD and DM who presented with the complaint of difficulty breathing as patient was noted to be hypoxic with O2 sat in the 70s at home. Per ED note, patient could not tolerate BiPAP and had decline in mental status, agitation & hypoxia so was eventually intubated. Patient was admitted to ICU on 08/25/17 for acute respiratory failure and pneumonia, for which patient was started on IV vancomycin and cefepime. Critical care is consulted for further management. Patient was seen and examined this morning. Patient is still intubated & sedated so much of history was obtained from review of medical records. CXR found increased bilateral perihilar infiltrates, concerning of CHF versus pneumonia. Moderate loculated right pleural effusion with right basilar volume loss also noted. Per patient's daughter at bedside, patient has dementia and is well-known for non-compliance. Patient was just discharged from Geriatric psych unit to home yesterday and it's the hospice nurse visiting his place found him to be hypoxic and sent him to ED. Per patient's daughter, patient's is his POA and as far as she knows, patient is full code. Past Med Surg Social Fam HX - Past Medical History Medical history: arthritis, atrial fibrillation, CHF, COPD, diabetes, hyperlipidemia, hypertension, liver disease, renal disease Psychiatric history: no psych history - Past Surgical History Surgical History: orthopedic, other, pacemaker/AICD - Social History Smoking Status: Former smoker Smokeless Tobacco Status: No Alcohol use: none Drug use: none - Family History Father Hx Family Cardiac Disorders: Yes (Triple Bypass) Hx Family Endocrine Disorder: Yes (DM) Mother Family Member Ethnicity: Non- Living Status: Medications and Allergies Amiodarone [Cordarone] 200 mg PO DAILY 04/28/15 [History] Aspirin 81 mg PO DAILY 04/28/15 [History] Atorvastatin [Lipitor] 40 mg PO HS 04/28/15 [History] Ferrous Sulfate 325 mg PO BID 04/28/15 [History] Albuterol Sulfate [Proair Hfa] 2 puff IH Q4H PRN 01/25/17 [History] Metoprolol Succinate 200 mg PO DAILY 01/25/17 [History] Oxygen 3 l NS CONT 02/03/17 [History] Nitroglycerin 0.4 mg SL Q5MIN PRN #0 tab.subl 02/23/17 [Rx] metFORMIN [Glucophage] 1,000 mg PO BIDWM tablet 02/23/17 [Rx] Diltiazem HCl [Diltiazem 24Hr Cd] 180 mg PO BID 04/06/17 [History] Insulin LISPRO [HumaLOG] 4 - 8 units SQ TIDWM PRN 04/06/17 [History] Rivaroxaban [Xarelto] 20 mg PO DAILY 04/06/17 [History] Furosemide [Lasix] 80 mg PO BID 06/17/17 [History] Potassium Chloride 8 meq PO BID 06/17/17 [History] Spironolactone [Aldactone] 25 mg PO DAILY 06/17/17 [History] Budesonide/Formoterol 160/4.5 [Symbicort 160/4.5] 2 puff IH BIDR inhaler [Rx] Acetaminophen [Tylenol 650mg SUPP] 650 mg RC Q4H PRN 07/01/17 [History] Hyoscyamine SL [Levsin Sl] 0.125 - 0.25 mg SL Q2H PRN 07/01/17 [History] Insulin DETEMIR [Levemir] 70 unit SQ BID 07/01/17 [History] Ipratropium/Albuterol Neb [Duoneb] 3 ml IH Q4HR PRN 07/01/17 [History] Linagliptin [Tradjenta] 5 mg PO DAILY 07/01/17 [History] Promethazine HCl [Phenadoz] 25 mg RC Q6H PRN 07/01/17 [History] Citalopram [CeleXA] 20 mg PO DAILY tablet 07/07/17 [Rx] Haloperidol Oral Conc [Haldol] 0.5 mg PO Q2H PRN #10 udc 07/07/17 [Rx] LORazepam [Ativan] 0.5 mg PO BID PRN #7 tablet 07/07/17 [Rx] Loperamide [Imodium] 2 mg PO Q6H PRN capsule 07/07/17 [Rx] Meclizine [Antivert] 25 mg PO QID PRN tablet 07/07/17 [Rx] Emeterio/Poly/Lalita OINT [Triple Antibiotic Ointment] 1 appl TP BID PRN tube 07/07/17 [Rx] 3 Allergy/AdvReac Type Severity Reaction Status Date / Time bupropion [From Wellbutrin] Allergy Difficulty Verified 06/17/17 00:14 Breathing codeine Allergy Difficulty Verified 06/17/17 00:14 Breathing Opioids-Meperidine and Allergy Difficulty Verified 06/17/17 00:14 Related Breathing [Opioids-Meperidine & Related] ROS unobtainable: due to endotracheal tube, due to mental status Physical Examination Vital Signs: Vital Signs, Last 4 Hours Temp Pulse Resp BP Pulse Ox 08/25/17 07:57 16 97 08/25/17 07:55 96 08/25/17 07:50 96 08/25/17 07:29 96.2 F L 08/25/17 07:00 96 16 94/74 96 08/25/17 06:00 84 17 95/79 99 08/25/17 05:19 16 135/87 99 08/25/17 05:00 95 18 135/87 96 General appearance: comatose Eyes: nonicteric ENT: other (Intubated) Neck: supple Effort: normal Inspection: normal Auscultation: bilateral: rales Cardiovascular: other (Tachycardia) Gastrointestinal: hypoactive bowel sounds, soft, other (Significant ascites noted on palpation wit positive wave. ) Integumentary: normal Extremities: no cyanosis unable to assess due to mental status Ventilator Settings Ventilator Settings: Ventilator Settings, Last 8 Hours Ventilator Mode VC+ Ventilator Mode VC+ Ventilator Mode VC+ Ventilator Mode VC+ Ventilator Mode VC+ Ventilator Mode VC+ Ventilator Mode VC+ Ventilator Mode VC+ Ventilator Mode VC+ Ventilator Mode VC+ Ventilator Tidal Volume 600 Setting Ventilator Tidal Volume 600 Setting Ventilator Tidal Volume 600 Setting Ventilator Tidal Volume 600 Setting Ventilator Tidal Volume 600 Setting Ventilator Tidal Volume 600 Setting Ventilator Tidal Volume 550 Setting Ventilator Tidal Volume 550 Setting Ventilator Tidal Volume 550 Setting Ventilator Tidal Volume 550 Setting Ventilator Respiratory Rate 16 Setting Ventilator Respiratory Rate 16 Setting Ventilator Respiratory Rate 16 Setting Ventilator Respiratory Rate 16 Setting Ventilator Respiratory Rate 16 Setting Ventilator Respiratory Rate 16 Setting Ventilator Respiratory Rate 12 Setting Ventilator Respiratory Rate 12 Setting Ventilator Respiratory Rate 12 Setting Ventilator Respiratory Rate 12 Setting Actual Respiratory Rate 16 Actual Respiratory Rate 16 Actual Respiratory Rate 16 Actual Respiratory Rate 16 Actual Respiratory Rate 18 Actual Respiratory Rate 16 Actual Respiratory Rate 12 Actual Respiratory Rate 12 Actual Respiratory Rate 12 Positive End Expiratory 5 Pressure Positive End Expiratory 5 Pressure Positive End Expiratory 5 Pressure Positive End Expiratory 5 Pressure Positive End Expiratory 5 Pressure Positive End Expiratory 5 Pressure Positive End Expiratory 5 Pressure Positive End Expiratory 5 Pressure Positive End Expiratory 5 Pressure Positive End Expiratory 5 Pressure Peak Inspiratory Airway 32 Pressure Peak Inspiratory Airway 29 Pressure Peak Inspiratory Airway 33 Pressure Peak Inspiratory Airway 33 Pressure Peak Inspiratory Airway 33 Pressure Peak Inspiratory Airway 33 Pressure Peak Inspiratory Airway 31 Pressure Peak Inspiratory Airway 37 Pressure Peak Inspiratory Airway 31 Pressure Results - Laboratory Findings CBC and BMP: 08/25/17 08:41 08/25/17 08:41 ABG ABG pH 7.26 pH Units (7.32-7.45) L 08/25/17 04:17 ABG pCO2 70 mmHg (35-45) H* 08/25/17 04:17 ABG pO2 69 mmHg (85-104) L 08/25/17 04:17 ABG O2 Saturation 89 % (95-98) L 08/25/17 04:17 PT/INR, D-dimer PT 15.6 Seconds (9.4-12.1) H 08/25/17 00:28 Abnormal lab findings: Abnormal lab results WBC 11.5 K/mcL (4.3-11.1) H 08/25/17 00:28 RBC 2.93 M/mcL (4.19-5.50) L 08/25/17 00:28 Hgb 7.7 g/dL (12.9-16.9) L 08/25/17 00:28 Hct 25.9 % (37.5-50.1) L 08/25/17 00:28 MCH 26.3 pg (28.0-33.3) L 08/25/17 00:28 MCHC 29.7 g/dL (31.6-35.5) L 08/25/17 00:28 RDW 17.4 % (11.5-14.5) H 08/25/17 00:28 MPV 9.2 fL (9.4-12.4) L 08/25/17 00:28 Neutrophils # 9.8 K/mcL (1.6-8.9) H 08/25/17 00:28 Lymphocytes # 0.5 K/mcL (0.6-4.6) L 08/25/17 00:28 PT 15.6 Seconds (9.4-12.1) H 08/25/17 00:28 ABG pH 7.26 pH Units (7.32-7.45) L 08/25/17 04:17 ABG pCO2 70 mmHg (35-45) H* 08/25/17 04:17 ABG pO2 69 mmHg (85-104) L 08/25/17 04:17 ABG HCO3 31 mEq/L (21-27) H 08/25/17 04:17 ABG Total CO2 33 mEq/L (20-26) H 08/25/17 04:17 ABG O2 Saturation 89 % (95-98) L 08/25/17 04:17 Sodium 135 mEq/L (136-145) L 08/25/17 00:28 Potassium 5.0 mEq/L (3.5-4.5) H 08/25/17 00:28 Chloride 96 mEq/L (98-109) L 08/25/17 00:28 BUN 52 mg/dL (8-26) H 08/25/17 00:28 Creatinine 2.16 mg/dL (0.72-1.25) H 08/25/17 00:28 Est GFR ( Amer) 37 (> 60) L 08/25/17 00:28 Est GFR (Non-Af Amer) 30 (> 60) L 08/25/17 00:28 Glucose 62 mg/dL (70-99) L 08/25/17 00:28 POC Glucose 130 (58-89) H 08/25/17 05:44 B-Natriuretic Peptide 930 pg/mL (0-100) H 08/25/17 00:28 Albumin 2.9 g/dL (3.5-5.0) L 08/25/17 00:28 Globulin 5.1 g/dL (2.4-3.5) H 08/25/17 00:28 Albumin/Globulin Ratio 0.6 (1.1-2.2) L 08/25/17 00:28 - Diagnostic Findings Chest x-ray: report reviewed, image reviewed - Clinical Findings Intake & Output: Intake & Output 08/24/17 08/25/17 08/25/17 23:59 07:59 15:59 Intake Total 150 / 150 Output Total 150 / 150 Balance 0 / 0 Weight 152.5 kg Consult Discharge Plan - Plan Referrals: Damian Seymour MD [Primary Care Provider] - <Alana Camacho - Last Filed: 08/25/17 17:15> Date of Encounter: 08/25/17 All Systems: A 10-system review of systems was performed and is negative for pertinent findings except as documented above in the HPI. Physical Examination Vital Signs: Vital Signs, Last 4 Hours Temp Pulse Resp BP Pulse Ox 08/25/17 17:00 98 16 88/61 100 08/25/17 16:00 96 16 90/61 100 08/25/17 15:52 16 100 08/25/17 15:38 95.7 F L 08/25/17 15:16 94 08/25/17 15:00 94 20 100/67 100 08/25/17 14:00 94 16 92/65 100 Ventilator Settings Ventilator Settings: Ventilator Settings, Last 8 Hours Ventilator Mode VC+ Ventilator Mode VC+ Ventilator Mode VC+ Ventilator Mode VC+ Ventilator Mode VC+ Ventilator Mode VC+ Ventilator Tidal Volume 600 Setting Ventilator Tidal Volume 600 Setting Ventilator Tidal Volume 600 Setting Ventilator Tidal Volume 600 Setting Ventilator Tidal Volume 600 Setting Ventilator Tidal Volume 600 Setting Ventilator Respiratory Rate 16 Setting Ventilator Respiratory Rate 16 Setting Ventilator Respiratory Rate 16 Setting Ventilator Respiratory Rate 16 Setting Ventilator Respiratory Rate 16 Setting Ventilator Respiratory Rate 16 Setting Actual Respiratory Rate 16 Actual Respiratory Rate 16 Actual Respiratory Rate 19 Actual Respiratory Rate 20 Actual Respiratory Rate 20 Actual Respiratory Rate 17 Positive End Expiratory 5 Pressure Positive End Expiratory 5 Pressure Positive End Expiratory 5 Pressure Positive End Expiratory 5 Pressure Positive End Expiratory 5 Pressure Positive End Expiratory 5 Pressure Peak Inspiratory Airway 25 Pressure Peak Inspiratory Airway 24 Pressure Peak Inspiratory Airway 31 Pressure Peak Inspiratory Airway 33 Pressure Peak Inspiratory Airway 34 Pressure Peak Inspiratory Airway 30 Pressure Results - Laboratory Findings CBC and BMP: 08/25/17 08:41 08/25/17 08:41 ABG ABG pH 7.46 pH Units (7.32-7.45) H D 08/25/17 08:40 ABG pCO2 38 mmHg (35-45) D 08/25/17 08:40 ABG pO2 49 mmHg (85-104) L* 08/25/17 08:40 ABG O2 Saturation 86 % (95-98) L 08/25/17 08:40 PT/INR, D-dimer PT 15.6 Seconds (9.4-12.1) H 08/25/17 00:28 Abnormal lab findings: Abnormal lab results RBC 2.98 M/mcL (4.19-5.50) L 08/25/17 08:41 Hgb 7.8 g/dL (12.9-16.9) L 08/25/17 08:41 Hct 26.7 % (37.5-50.1) L 08/25/17 08:41 MCH 26.2 pg (28.0-33.3) L 08/25/17 08:41 MCHC 29.2 g/dL (31.6-35.5) L 08/25/17 08:41 RDW 17.7 % (11.5-14.5) H 08/25/17 08:41 MPV 8.8 fL (9.4-12.4) L 08/25/17 08:41 Neutrophils # 9.5 K/mcL (1.6-8.9) H 08/25/17 08:41 Lymphocytes # 0.3 K/mcL (0.6-4.6) L 08/25/17 08:41 Nucleated RBCs/100 WBC 0.2 /100 WBC (0) H 08/25/17 08:41 PT 15.6 Seconds (9.4-12.1) H 08/25/17 00:28 ABG pH 7.46 pH Units (7.32-7.45) H D 08/25/17 08:40 ABG pO2 49 mmHg (85-104) L* 08/25/17 08:40 ABG Total CO2 28 mEq/L (20-26) H 08/25/17 08:40 ABG O2 Saturation 86 % (95-98) L 08/25/17 08:40 Potassium 5.3 mEq/L (3.5-4.5) H 08/25/17 08:41 BUN 52 mg/dL (8-26) H 08/25/17 08:41 Creatinine 2.23 mg/dL (0.72-1.25) H 08/25/17 08:41 Est GFR ( Amer) 35 (> 60) L 08/25/17 08:41 Est GFR (Non-Af Amer) 29 (> 60) L 08/25/17 08:41 Glucose 112 mg/dL (70-99) H 08/25/17 08:41 POC Glucose 137 (58-89) H 08/25/17 11:24 Calcium 8.4 mg/dL (8.6-10.8) L 08/25/17 08:41 B-Natriuretic Peptide 930 pg/mL (0-100) H 08/25/17 00:28 Albumin 2.9 g/dL (3.5-5.0) L 08/25/17 00:28 Globulin 5.1 g/dL (2.4-3.5) H 08/25/17 00:28 Albumin/Globulin Ratio 0.6 (1.1-2.2) L 08/25/17 00:28 Peritoneal RBC 0.006 M/mcL (0.000-0.002) H 08/25/17 11:10 - Clinical Findings Intake & Output: Intake & Output 08/25/17 08/25/17 08/25/17 07:59 15:59 23:59 Intake Total 160 / 160 200 / 200 200 / 200 Output Total 150 / 150 36956 / 87580 Balance -00264 / -10529 200 / 200 Weight 152.5 kg 144.2 kg - Attending Attestation I examined this patient and my medical decision-making was reviewed with the Resident Physician. I agree with the documented findings, disposition and treatment plan as described except to the extent set forth below. Patient seen and examined. Labs, radiology, chart personally reviewed. 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 I have made some changes on the vent setting and follow-up ABG is improved. Patient will be intubated until his overall condition improved with needing of draining copious ascitic fluid. We were not able to reach the family and had to sign the procedure to be done with the interventional radiologist. Cardiovascular: Suspect heart failure possibly diastolic and need diuresis as much as possible GI: Nutrition per dietary and GI prophylaxis per routine Heme: DVT prophylaxis per routine ID: Continue antibiotics and plan to de-escalation Renal; urine out put and renal funtion reviewed Endorcine: blood glucose is monitored Lines: all lines checked and no evidence of infections Skin: skin care to prevent pressure ulcers per nursing routine care Patient feels overall prognosis is poor and when family is available that perhaps a discussion with palliative care would be important. I spent 35 min of Critical Care time with this patient. It involved decision making of high complexity to assess, manipulate, and support vital organ system failure and/or to prevent further life threatening deterioration of the patient' s condition. The time involved in the performance of separately reportable procedures was not counted toward critical care time.
[2017-08-25 08:31] LABS: Thyroid Stimulating Hormone 1.592 mcIU/mL (0.350-4.840)
[2017-08-25 08:50] LABS: Basophils % 0.3 %; Eosinophils # 0.1 K/mcL (0.0-0.6); Eosinophils % 0.5 %; Hematocrit 26.7 % (37.5-50.1); Hemoglobin 7.8 g/dL (12.9-16.9); Immature Granulocytes % 0.5 % (0-4); Lymphocytes # 0.3 K/mcL (0.6-4.6); Mean Corpuscular HGB Conc 29.2 g/dL (31.6-35.5); Mean Corpuscular Hemoglobin 26.2 pg (28.0-33.3); Mean Corpuscular Volume 89.6 fL (83.0-100.0); Mean Platelet Volume 8.8 fL (9.4-12.4); Monocytes # 0.5 K/mcL (0.0-1.3); Monocytes % 4.7 %; Neutrophils # 9.5 K/mcL (1.6-8.9); Nucleated Red Blood Cells 0.2 /100 WBC (0); Platelet Count 348 K/mcL (140-400); Red Blood Count 2.98 M/mcL (4.19-5.50); Red Cell Distribution Width 17.7 % (11.5-14.5)
[2017-08-25 08:59] LABS: ABG Base Excess 3 mEq/L (-2 to 3); ABG HCO3 27 mEq/L (21-27); ABG Oxygen Saturation 86 % (95-98); ABG PCO2 38 mmHg (35-45); ABG PH 7.46 pH Units (7.32-7.45); ABG PO2 49 mmHg (85-104); ABG TCO2 28 mEq/L (20-26); Blood Gas Modality ASSIST CONTROL; Blood Gas PEEP 5 cm H2O; Blood Gas Respiration Rate 16; Blood Gas VT 600 cc
[2017-08-25 09:00] LABS: Calcium 8.4 mg/dL (8.6-10.8); Potassium 5.3 mEq/L (3.5-4.5)
[2017-08-25] MEDS: Furosemide 40 MG/4 ML VIAL IVP SCH ×2 (09:25→16:40)
[2017-08-25] MEDS: Chlorhexidine Rinse 15 ML MOUTHWASH MM SCH ×2 (09:26→22:08)
[2017-08-25] MEDS: Pantoprazole 40 MG VIAL IVP SCH (11:27)
[2017-08-25] MEDS: Insulin LISPRO 300 UNITS/3 ML VIAL SQ SCH ×2 (11:28→18:02)
--- NOTE | 2017-08-25 11:39 | IR Procedure Note ---
Date of procedure: 08/25/17 Consent Obtained: Written consent (2 physician emergent consent) Timeout: Correct patient and procedure verified, Correct site verified, Time out performed, Skin prep completed Local anesthetic: Lidocaine 1% Indications: Ascites Procedure Performed: Paracentesis Site/Technique: Paracentesis performed Results/Findings: Large ascites Estimated blood loss (cc): 1 Complications: None; Tolerated procedure well Post Procedure Treatment Plan: Continue ICU care
[2017-08-25] MEDS: Albumin 25% 25gram/100mL 25 GM/100 ML IV.SOLN IVC SCH ×4 (13:05→17:49)
[2017-08-25 14:34] LABS: RBC,Peritoneal Fluid 0.006 M/mcL
[2017-08-25 14:35] LABS: Appearance of Peritoneal Fl CLOUDY (Clear)
[2017-08-25] MEDS: *HR* Heparin 5,000 UNIT/ML VIAL SQ SCH ×2 (15:01→22:08)
--- NOTE | 2017-08-25 16:25 | Electrocardiograph Report ---
[address] [place] [address] Test Date: 2017-08-25 Pat Name: Jaime Diaz Department: 104 Room: [facility] Gender: Supervisor Paper Testing: ROBIN : 1945 Requested By: Kameron Ramirez Order Number: [id number] Reading MD: Ludy Sinclair Measurements Intervals [place] Rate: 100 P: 11 NE: 285 QRS: 122 QRSD: 204 T: -51 QT: 450 QTc: 507 Interpretive Statements PROBABLY AFIB/FLUTTER WITH RBBB POSSIBLE LATERAL MYOCARDIAL INFARCTION, OLD Electronically Signed On 08-25-2017 16:23:09 EST by Ludy Sinclair
[2017-08-26] MEDS: Lacri-Lube 3.5 GM TUBE BOTH EYES SCH ×3 (00:25→08:46)
[2017-08-26] MEDS: Insulin LISPRO 300 UNITS/3 ML VIAL SQ SCH ×4 (00:25→21:16)
[2017-08-26 03:00] LABS: Basophils % 0.1 %; Hematocrit 24.3 % (37.5-50.1); Hemoglobin 7.2 g/dL (12.9-16.9); Immature Granulocytes % 0.7 % (0-4); Lymphocytes # 0.2 K/mcL (0.6-4.6); Mean Corpuscular HGB Conc 29.6 g/dL (31.6-35.5); Mean Corpuscular Hemoglobin 26.6 pg (28.0-33.3); Mean Corpuscular Volume 89.7 fL (83.0-100.0); Mean Platelet Volume 9.2 fL (9.4-12.4); Monocytes # 0.2 K/mcL (0.0-1.3); Monocytes % 2.6 %; Neutrophils # 7.2 K/mcL (1.6-8.9); Platelet Count 313 K/mcL (140-400); Red Blood Count 2.71 M/mcL (4.19-5.50); Red Cell Distribution Width 17.4 % (11.5-14.5); Segmented Neutrophils % 93.6 %
[2017-08-26] MEDS ORDERED: Vancomycin 1,500 MG in D5% in Water 250 ML IVPB SCH (03:00)
[2017-08-26 03:13] LABS: Calcium 8.5 mg/dL (8.6-10.8); Magnesium 2.9 mg/dL (1.6-2.6); Phosphorous 7.7 mg/dL (2.3-4.7)
[2017-08-26 03:22] LABS: Potassium 3.7 mEq/L (3.5-4.5)
[2017-08-26] MEDS: Ipratropium/Albuterol Neb 3 ML IH SCH ×4 (03:43→22:30)
[2017-08-26] MEDS: Cefepime HCl 1,000 MG in Water for inj. (sterile) 10 ML IVP SCH ×2 (05:16→21:08)
[2017-08-26] MEDS: *HR* Heparin 5,000 UNIT/ML VIAL SQ SCH ×3 (05:17→21:12)
[2017-08-26] MEDS: methylPREDNISolone 125 MG/2 ML VIAL IVP SCH (05:17)
[2017-08-26] MEDS: FentaNYL (PF) 1,000 MCG in 0.9 % Sodium Chloride 80 ML IVC SCH (08:49)
[2017-08-26] MEDS: Pantoprazole 40 MG VIAL IVP SCH (08:54)
[2017-08-26] MEDS: Furosemide 40 MG/4 ML VIAL IVP SCH ×2 (08:55→17:27)
[2017-08-26] MEDS: Chlorhexidine Rinse 15 ML MOUTHWASH MM SCH (08:55)
--- NOTE | 2017-08-26 08:56 | Pulmonology Progress Note ---
<Alana Camacho M - Last Filed: 08/26/17 11:17> Date of Encounter: 08/26/17 Objective PUL Vital signs: Last Vital Signs Temp 98.5 F 08/26/17 11:00 Pulse 105 08/26/17 11:08 Resp 18 08/26/17 11:00 BP 112/68 08/26/17 11:00 Pulse Ox 97 08/26/17 11:00 Ventilator Settings Ventilator Settings: Ventilator Settings, Last 8 Hours Ventilator Mode CPAP Ventilator Mode CPAP Ventilator Mode CPAP Ventilator Mode VC+ Ventilator Mode VC+ Ventilator Mode VC+ Ventilator Mode VC+ Ventilator Mode VC+ Ventilator Tidal Volume 600 Setting Ventilator Tidal Volume 600 Setting Ventilator Tidal Volume 600 Setting Ventilator Tidal Volume 600 Setting Ventilator Tidal Volume 600 Setting Ventilator Respiratory Rate 16 Setting Ventilator Respiratory Rate 16 Setting Ventilator Respiratory Rate 16 Setting Ventilator Respiratory Rate 16 Setting Ventilator Respiratory Rate 16 Setting Actual Respiratory Rate 10 Actual Respiratory Rate 13 Actual Respiratory Rate 12 Actual Respiratory Rate 19 Actual Respiratory Rate 19 Actual Respiratory Rate 19 Actual Respiratory Rate 19 Actual Respiratory Rate 20 Positive End Expiratory 5 Pressure Positive End Expiratory 5 Pressure Positive End Expiratory 5 Pressure Positive End Expiratory 5 Pressure Positive End Expiratory 5 Pressure Positive End Expiratory 5 Pressure Positive End Expiratory 5 Pressure Positive End Expiratory 5 Pressure Peak Inspiratory Airway 11 Pressure Peak Inspiratory Airway 11 Pressure Peak Inspiratory Airway 11 Pressure Peak Inspiratory Airway 23 Pressure Peak Inspiratory Airway 24 Pressure Peak Inspiratory Airway 25 Pressure Peak Inspiratory Airway 21 Pressure Peak Inspiratory Airway 22 Pressure Results - Laboratory Findings CBC and BMP: 08/26/17 02:36 08/26/17 02:36 ABG ABG pH 7.46 pH Units (7.32-7.45) H D 08/25/17 08:40 ABG pCO2 38 mmHg (35-45) D 08/25/17 08:40 ABG pO2 49 mmHg (85-104) L* 08/25/17 08:40 ABG O2 Saturation 86 % (95-98) L 08/25/17 08:40 PT/INR, D-dimer PT 15.6 Seconds (9.4-12.1) H 08/25/17 00:28 Abnormal lab findings: Abnormal lab results RBC 2.71 M/mcL (4.19-5.50) L 08/26/17 02:36 Hgb 7.2 g/dL (12.9-16.9) L 08/26/17 02:36 Hct 24.3 % (37.5-50.1) L 08/26/17 02:36 MCH 26.6 pg (28.0-33.3) L 08/26/17 02:36 MCHC 29.6 g/dL (31.6-35.5) L 08/26/17 02:36 RDW 17.4 % (11.5-14.5) H 08/26/17 02:36 MPV 9.2 fL (9.4-12.4) L 08/26/17 02:36 Lymphocytes # 0.2 K/mcL (0.6-4.6) L 08/26/17 02:36 Nucleated RBCs/100 WBC 0.2 /100 WBC (0) H 08/25/17 08:41 PT 15.6 Seconds (9.4-12.1) H 08/25/17 00:28 ABG pH 7.46 pH Units (7.32-7.45) H D 08/25/17 08:40 ABG pO2 49 mmHg (85-104) L* 08/25/17 08:40 ABG Total CO2 28 mEq/L (20-26) H 08/25/17 08:40 ABG O2 Saturation 86 % (95-98) L 08/25/17 08:40 BUN 57 mg/dL (8-26) H 08/26/17 02:36 Creatinine 2.03 mg/dL (0.72-1.25) H 08/26/17 02:36 Est GFR ( Amer) 39 (> 60) L 08/26/17 02:36 Est GFR (Non-Af Amer) 32 (> 60) L 08/26/17 02:36 BUN/Creatinine Ratio 28 (6-26) H 08/26/17 02:36 Glucose 226 mg/dL (70-99) H 08/26/17 02:36 POC Glucose 265 (58-89) H 08/26/17 00:14 Calculated Osmolality 311 (280-300) H 08/26/17 02:36 Calcium 8.5 mg/dL (8.6-10.8) L 08/26/17 02:36 Phosphorus 7.7 mg/dL (2.3-4.7) H 08/26/17 02:36 Magnesium 2.9 mg/dL (1.6-2.6) H 08/26/17 02:36 B-Natriuretic Peptide 930 pg/mL (0-100) H 08/25/17 00:28 Albumin 2.9 g/dL (3.5-5.0) L 08/25/17 00:28 Globulin 5.1 g/dL (2.4-3.5) H 08/25/17 00:28 Albumin/Globulin Ratio 0.6 (1.1-2.2) L 08/25/17 00:28 Peritoneal RBC 0.006 M/mcL (0.000-0.002) H 08/25/17 11:10 - Clinical Findings Intake & Output: Intake & Output 08/25/17 08/26/17 08/26/17 23:59 07:59 15:59 Intake Total 410 / 410 592 / 592 0 / 0 Output Total 450 / 450 1100 / 1100 400 / 400 Balance -40 / -40 -508 / -508 -400 / -400 Consult Discharge Plan - Plan Referrals: Damian Seymour MD [Primary Care Provider] - - Attending Attestation I examined this patient and my medical decision-making was reviewed with the Resident Physician. I agree with the documented findings, disposition and treatment plan as described except to the extent set forth below. Patient seen and examined. Labs, radiology, chart personally reviewed. 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 Patient will remain at risks for complications in the future if his underlying comorbidities not treated and patient is not compliant. If remains stable he can be transferred to the floor. Cardiovascular: stable GI: Nutrition per dietary and GI prophylaxis per routine patient will need to follow-up with network contract manager/high school admissions representative. Optimize his treatment for cirrhosis. Heme: DVT prophylaxis per routine ID: Continue antibiotics and plan to de-escalation Renal; urine out put and renal funtion reviewed. Patient with acute kidney injury and his chronic kidney disease looking at previous creatinine possibly was stage III. Endorcine: blood glucose is monitored Lines: all lines checked and no evidence of infections Skin: skin care to prevent pressure ulcers per nursing routine care <Sonja Pickett - Last Filed: 08/26/17 11:50> Date of Encounter: 08/26/17 Time of Encounter: 07:45 Assessment and Plan (1) Acute and chronic respiratory failure Current Visit: No Status: Acute - Respiratory distress unable to tolerate BiPAP and intubated in ED. - With hypoxia (reported O2 sat drop to 70% at home) and hypercapnia (pCO2 as high as 70). - Likely multifactorial including CHF, significant ascites, COPD and questionable pneumonia. - S/p paracentesis for ascites. Continue diuresis for CHF, steroid & bronchodilators for COPD and antibiotics for pneumonia. - Patient was successfully extubated this morning. Currently maintains good O2 sat on 4L Oxym[place]. - Given patient improves clinically and remains hemodynamically stable, patient can be transferred to medical floor for further care. Qualifiers: Respiratory failure complication: hypoxia and hypercapnia Qualified Code(s) : J96.21 - Acute and chronic respiratory failure with hypoxia; J96.22 - Acute and chronic respiratory failure with hypercapnia; J96.22 - Acute and chronic respiratory failure with hypercapnia; J96.22 - Acute and chronic respiratory failure with hypercapnia (2) Acute exacerbation of CHF (congestive heart failure) Current Visit: No Status: Acute - Elevated BNP at 930 on admission. - Likely contributes to his respiratory failure on initial presentation. - Echo from 04/23/17: LVEF 50-55% with indeterminate LV diastolic function. Dilated IVC lacking respiratory collapse suggesting elevated RA pressure. - Continue diuresis with Lasix. - Strict I/O and daily weight. Qualifiers: Congestive heart failure type: combined Qualified Code(s): I50.43 - Acute on chronic combined systolic (congestive) and diastolic (congestive) heart failure (3) Ascites Current Visit: Yes Status: Chronic - Significant ascites noted on exam and likely contributes to patient's current respiratory failure. - S/p paracentesis by IR at bedside with more than 10L ascites fluid drained on 08/25. - Ascites fluid study does not suggest SBP (Total nuclear cells 229 with 54% neutrophils). - SAAG 1.5 but ascites fluid total protein 4.6 suggests more likely cardiac ascites than cirrhosis. Qualifiers: Ascites type: other type Qualified Code(s): R18.8 - Other ascites (4) COPD (chronic obstructive pulmonary disease) Current Visit: No Status: Chronic - Continue steroid and Duoneb. Qualifiers: COPD type: COPD with acute exacerbation Qualified Code(s): J44.1 - Chronic obstructive pulmonary disease with (acute) exacerbation (5) Pneumonia Current Visit: Yes Status: Acute - CXR found increased bilateral perihilar infiltrates concerning of CHF versus pneumonia. - Feel more likely pulmonary edema rather than pneumonia but patient did have leukocytosis on admission so will continue IV vancomycin and cefepime for now. - Blood culture pending and will obtain sputum culture if possible. Further de- escalation based on clinical picture and culture result. Qualifiers: Pneumonia type: due to unspecified organism Laterality: bilateral Lung location: unspecified part of lung Qualified Code(s): J18.9 - Pneumonia, unspecified organism (6) [id number] kidney injury Current Visit: No Status: Acute - SCr 2.16 / eGFR 30 on admission, worsen compared to Scr 1.41 / eGFR 49 on . - Avoid nephrotoxin. - Improves as SCr 2.03 / eGFR 32 today. - Continue to monitor renal function and electrolytes closely. Qualifiers: Acute renal failure type: unspecified Chronic kidney disease stage: unspecified stage Qualified Code(s): N17.9 - Acute kidney failure, unspecified ; N18.9 - Chronic kidney disease, unspecified; N18.9 - Chronic kidney disease, unspecified (7) Hyperkalemia Current Visit: Yes Status: Chronic - K 5.0 on admission and then elevated to 5.3. - Likely secondary to home potassium use in the setting of current renal insufficiency. - Patient received one dose of Kayexalate 30 gram on 08/25/17. - Resolved as K 3.7 today. - Continue to monitor. (8) Afib Current Visit: No Status: Chronic - Currently rate controlled and continue metoprolol. - Question regarding Xarelto use at home and may resume once it's confirmed and patient is able to take PO medications. Qualifiers: Atrial fibrillation type: paroxysmal Qualified Code(s): I48.0 - Paroxysmal atrial fibrillation (9) Diabetes mellitus Current Visit: No Status: Acute - Continue insulin sliding scale with glucose monitoring. Qualifiers: Diabetes mellitus type: type 2 Diabetes mellitus complication status: with circulatory complication Diabetes mellitus complication detail: with other circulatory complications Diabetes mellitus halfway insulin use: with halfway use Qualified Code(s): E11.59 - Type 2 diabetes mellitus with other circulatory complications; Z79.4 - technician terminal and repeater (current) use of insulin; Z79.4 - technician terminal and repeater (current) use of insulin; Z79.4 - technician terminal and repeater (current) use of insulin; Z79.4 - residential (current) use of insulin (10) Goals of care, counseling/discussion Current Visit: Yes Status: Acute - Palliative care consulted to discuss goal of care with patient and his significant another who is also his POA (11) DVT prophylaxis Current Visit: No Status: Acute - Continue SQ heparin. GI prophylaxis: Protonix IV. Subjective Principal diagnosis: Respiratory failure Interval history: Patient was seen and examined this morning. Patient was intubated but alert. Given patient tolerated CPAP mode well, patient was successfully extubated this morning. Upon encounter after extubation, patient is alert and orient to person , place and year. Patient denies chest pain, abdominal pain or shortness of breath. Objective PUL Vital signs: Last Vital Signs Temp 97.4 F L 08/26/17 08:23 Pulse 100 08/26/17 08:00 Resp 16 08/26/17 08:00 BP 120/70 08/26/17 08:00 Pulse Ox 98 08/26/17 08:00 General appearance: no acute distress, alert Eyes: nonicteric ENT: oropharynx dry Neck: supple Effort: normal Auscultation: bilateral: diminished breath sounds Cardiovascular: regular rate and rhythm Gastrointestinal: normoactive bowel sounds, soft, non-tender Integumentary: normal Extremities: no cyanosis, edema Musculoskeletal: no deformities normal mental status, non-focal exam mood appropriate, affect normal Ventilator Settings Ventilator Settings: Ventilator Settings, Last 8 Hours Ventilator Mode CPAP Ventilator Mode CPAP Ventilator Mode CPAP Ventilator Mode VC+ Ventilator Mode VC+ Ventilator Mode VC+ Ventilator Mode VC+ Ventilator Mode VC+ Ventilator Mode VC+ Ventilator Mode VC+ Ventilator Mode VC+ Ventilator Mode VC+ Ventilator Tidal Volume 600 Setting Ventilator Tidal Volume 600 Setting Ventilator Tidal Volume 600 Setting Ventilator Tidal Volume 600 Setting Ventilator Tidal Volume 600 Setting Ventilator Tidal Volume 600 Setting Ventilator Tidal Volume 600 Setting Ventilator Tidal Volume 600 Setting Ventilator Tidal Volume 600 Setting Ventilator Respiratory Rate 16 Setting Ventilator Respiratory Rate 16 Setting Ventilator Respiratory Rate 16 Setting Ventilator Respiratory Rate 16 Setting Ventilator Respiratory Rate 16 Setting Ventilator Respiratory Rate 16 Setting Ventilator Respiratory Rate 16 Setting Ventilator Respiratory Rate 16 Setting Ventilator Respiratory Rate 16 Setting Actual Respiratory Rate 10 Actual Respiratory Rate 13 Actual Respiratory Rate 12 Actual Respiratory Rate 19 Actual Respiratory Rate 19 Actual Respiratory Rate 19 Actual Respiratory Rate 19 Actual Respiratory Rate 20 Actual Respiratory Rate 19 Actual Respiratory Rate 19 Actual Respiratory Rate 19 Actual Respiratory Rate 19 Positive End Expiratory 5 Pressure Positive End Expiratory 5 Pressure Positive End Expiratory 5 Pressure Positive End Expiratory 5 Pressure Positive End Expiratory 5 Pressure Positive End Expiratory 5 Pressure Positive End Expiratory 5 Pressure Positive End Expiratory 5 Pressure Positive End Expiratory 5 Pressure Positive End Expiratory 5 Pressure Positive End Expiratory 5 Pressure Positive End Expiratory 5 Pressure Peak Inspiratory Airway 11 Pressure Peak Inspiratory Airway 11 Pressure Peak Inspiratory Airway 11 Pressure Peak Inspiratory Airway 23 Pressure Peak Inspiratory Airway 24 Pressure Peak Inspiratory Airway 25 Pressure Peak Inspiratory Airway 21 Pressure Peak Inspiratory Airway 22 Pressure Peak Inspiratory Airway 25 Pressure Peak Inspiratory Airway 22 Pressure Peak Inspiratory Airway 21 Pressure Peak Inspiratory Airway 21 Pressure Results - Laboratory Findings CBC and BMP: 08/26/17 02:36 08/26/17 02:36 ABG ABG pH 7.46 pH Units (7.32-7.45) H D 08/25/17 08:40 ABG pCO2 38 mmHg (35-45) D 08/25/17 08:40 ABG pO2 49 mmHg (85-104) L* 08/25/17 08:40 ABG O2 Saturation 86 % (95-98) L 08/25/17 08:40 PT/INR, D-dimer PT 15.6 Seconds (9.4-12.1) H 08/25/17 00:28 Abnormal lab findings: Abnormal lab results RBC 2.71 M/mcL (4.19-5.50) L 08/26/17 02:36 Hgb 7.2 g/dL (12.9-16.9) L 08/26/17 02:36 Hct 24.3 % (37.5-50.1) L 08/26/17 02:36 MCH 26.6 pg (28.0-33.3) L 08/26/17 02:36 MCHC 29.6 g/dL (31.6-35.5) L 08/26/17 02:36 RDW 17.4 % (11.5-14.5) H 08/26/17 02:36 MPV 9.2 fL (9.4-12.4) L 08/26/17 02:36 Lymphocytes # 0.2 K/mcL (0.6-4.6) L 08/26/17 02:36 Nucleated RBCs/100 WBC 0.2 /100 WBC (0) H 08/25/17 08:41 PT 15.6 Seconds (9.4-12.1) H 08/25/17 00:28 ABG pH 7.46 pH Units (7.32-7.45) H D 08/25/17 08:40 ABG pO2 49 mmHg (85-104) L* 08/25/17 08:40 ABG Total CO2 28 mEq/L (20-26) H 08/25/17 08:40 ABG O2 Saturation 86 % (95-98) L 08/25/17 08:40 BUN 57 mg/dL (8-26) H 08/26/17 02:36 Creatinine 2.03 mg/dL (0.72-1.25) H 08/26/17 02:36 Est GFR ( Amer) 39 (> 60) L 08/26/17 02:36 Est GFR (Non-Af Amer) 32 (> 60) L 08/26/17 02:36 BUN/Creatinine Ratio 28 (6-26) H 08/26/17 02:36 Glucose 226 mg/dL (70-99) H 08/26/17 02:36 POC Glucose 265 (58-89) H 08/26/17 00:14 Calculated Osmolality 311 (280-300) H 08/26/17 02:36 Calcium 8.5 mg/dL (8.6-10.8) L 08/26/17 02:36 Phosphorus 7.7 mg/dL (2.3-4.7) H 08/26/17 02:36 Magnesium 2.9 mg/dL (1.6-2.6) H 08/26/17 02:36 B-Natriuretic Peptide 930 pg/mL (0-100) H 08/25/17 00:28 Albumin 2.9 g/dL (3.5-5.0) L 08/25/17 00:28 Globulin 5.1 g/dL (2.4-3.5) H 08/25/17 00:28 Albumin/Globulin Ratio 0.6 (1.1-2.2) L 08/25/17 00:28 Peritoneal RBC 0.006 M/mcL (0.000-0.002) H 08/25/17 11:10 - Clinical Findings Intake & Output: Intake & Output 08/25/17 08/26/17 08/26/17 23:59 07:59 15:59 Intake Total 410 / 410 592 / 592 0 / 0 Output Total 450 / 450 1100 / 1100 400 / 400 Balance -40 / -40 -508 / -508 -400 / -400
--- NOTE | 2017-08-26 09:17 | Palliative - Consult Note ---
<Rodriguez Steward - Last Filed: 08/26/17 09:15> Date of Encounter: 08/26/17 Time of Encounter: 09:00 - Assessment and Plan (1) Goals of care, counseling/discussion Current Visit: Yes Status: Acute Assessment and plan: Spoke with patient and he clearly stated his CODE STATUS as FULL CODE He wants "everything done" to "be around as long as possible." I spoke to his /POA, Aide Diaz ([phone] Home, Cell), who confirmed this code status and the patient's previously stated wishes. The patient stated that he ultimately wants to go home under hospice, as was his plan initially. (2) Acute respiratory failure with hypoxia Current Visit: Yes Status: Acute Assessment and plan: Combination of COPD, CHF, massive ascites, and possible PNA. Greatly improved since starting treatment. Management per primary team. Palliative-CN HPI - Data of Consult Patient: new to practice Consult date: 08/26/17 Requesting Physician: Santino Mosquera MD Primary Care Provider: Damian Seymour, - Consult Narrative Reason for consult: Goal of Care discussion History of present illness: Mr. Diaz is a 71 year old male with past medical history of COPD, cirrhosis, DM , CHF, and afib who presented with increasing dyspnea. His states that he was at an [facility] just before coming home under [facility] with the primary diagnosis of COPD. Despite his hospice status the states via phone that he is full code. The patient was hypoxic into the 70s and, with decline in mental status and increasing agitation, went on to require intubation. Paracentesis was performed for ascites (10.2 L removed) and he received diuresis for CHF, steroid & bronchodilators for COPD, and antibiotics for pneumonia. He has since been extubated and his mental status has greatly improved. He confirms that his code status is full code and that he wants "everything done" so he can "be around as long as possible." CC: Santino Mosquera MD Past Med Surg Social Fam HX - Past Medical History Medical history: arthritis, atrial fibrillation, CHF, COPD, diabetes, hyperlipidemia, hypertension, liver disease, renal disease Psychiatric history: no psych history - Past Surgical History Surgical History: orthopedic, other, pacemaker/AICD - Social History Smoking Status: Former smoker Smokeless Tobacco Status: No Alcohol use: none Drug use: none - Family History Father Hx Family Cardiac Disorders: Yes (Triple Bypass) Hx Family Endocrine Disorder: Yes (DM) Mother Family Member Ethnicity: Non- Living Status: Medications and Allergies Amiodarone [Cordarone] 200 mg PO DAILY 04/28/15 [History] Aspirin 81 mg PO DAILY 04/28/15 [History] Atorvastatin [Lipitor] 40 mg PO HS 04/28/15 [History] Ferrous Sulfate 325 mg PO BID 04/28/15 [History] Albuterol Sulfate [Proair Hfa] 2 puff IH Q4H PRN 01/25/17 [History] Metoprolol Succinate 200 mg PO DAILY 01/25/17 [History] Oxygen 3 l NS CONT 02/03/17 [History] Nitroglycerin 0.4 mg SL Q5MIN PRN #0 tab.subl 02/23/17 [Rx] metFORMIN [Glucophage] 1,000 mg PO BIDWM tablet 02/23/17 [Rx] Diltiazem HCl [Diltiazem 24Hr Cd] 180 mg PO BID 04/06/17 [History] Insulin LISPRO [HumaLOG] 4 - 8 units SQ TIDWM PRN 04/06/17 [History] Rivaroxaban [Xarelto] 20 mg PO DAILY 04/06/17 [History] Furosemide [Lasix] 80 mg PO BID 06/17/17 [History] Potassium Chloride 8 meq PO BID 06/17/17 [History] Spironolactone [Aldactone] 25 mg PO DAILY 06/17/17 [History] Budesonide/Formoterol 160/4.5 [Symbicort 160/4.5] 2 puff IH BIDR inhaler [Rx] Acetaminophen [Tylenol 650mg SUPP] 650 mg RC Q4H PRN 07/01/17 [History] Hyoscyamine SL [Levsin Sl] 0.125 - 0.25 mg SL Q2H PRN 07/01/17 [History] Insulin DETEMIR [Levemir] 70 unit SQ BID 07/01/17 [History] Ipratropium/Albuterol Neb [Duoneb] 3 ml IH Q4HR PRN 07/01/17 [History] Linagliptin [Tradjenta] 5 mg PO DAILY 07/01/17 [History] Promethazine HCl [Phenadoz] 25 mg RC Q6H PRN 07/01/17 [History] Citalopram [CeleXA] 20 mg PO DAILY tablet 07/07/17 [Rx] Haloperidol Oral Conc [Haldol] 0.5 mg PO Q2H PRN #10 udc 07/07/17 [Rx] LORazepam [Ativan] 0.5 mg PO BID PRN #7 tablet 07/07/17 [Rx] Loperamide [Imodium] 2 mg PO Q6H PRN capsule 07/07/17 [Rx] Meclizine [Antivert] 25 mg PO QID PRN tablet 07/07/17 [Rx] Emeterio/Poly/Lalita OINT [Triple Antibiotic Ointment] 1 appl TP BID PRN tube 07/07/17 [Rx] 3 Allergy/AdvReac Type Severity Reaction Status Date / Time bupropion [From Wellbutrin] Allergy Difficulty Verified 06/17/17 00:14 Breathing codeine Allergy Difficulty Verified 06/17/17 00:14 Breathing Opioids-Meperidine and Allergy Difficulty Verified 06/17/17 00:14 Related Breathing [Opioids-Meperidine & Related] - Constitutional Constitutional ROS PAL: no chills, no fever(s) - Cardiovascular Cardiovascular ROS: no chest pain, no palpitations - Respiratory Respiratory: cough, dyspnea (improved) - Gastrointestinal Gastrointestinal: no abdominal pain, no nausea, no vomiting Palliative Care-Exam - Constitutional Vitals: Temp Pulse Resp BP Pulse Ox 97.4 F L 105 16 124/60 97 08/26/17 08:23 08/26/17 09:00 08/26/17 09:00 08/26/17 09:00 08/26/17 09:00 - Head Head Exam: Present: atraumatic, normal inspection, normocephalic - ENT ENT exam: Present: mucous membranes moist - Respiratory Respiratory exam: Present: decreased breath sounds, rhonchi, wheezes - Cardiovascular Cardiovascular exam: Present: +S1, +S2 - GI/Abdominal Exam GI/Abdominal exam: Present: diminished bowel sounds, distended (improved compared to yesterday), soft. Absent: tenderness - Neurological Exam Neurological exam: Present: alert - Psychiatric Psychiatric exam: Present: normal affect, normal mood - Skin Skin exam: Present: dry, warm Internal Medicine - CN: Reslt - Labs CBC & Chem 7: 08/26/17 02:36 08/26/17 02:36 Labs: Short CBC 08/26/17 Range/Units 02:36 WBC 7.7 (4.3-11.1) K/mcL Hgb 7.2 L (12.9-16.9) g/dL Hct 24.3 L (37.5-50.1) % Plt Count 313 (140-400) K/mcL Neutrophils # 7.2 (1.6-8.9) K/mcL BMP 08/26/17 02:36 Sodium 139 Potassium 3.7 D Chloride 98 Carbon Dioxide 25 BUN 57 H Creatinine 2.03 H Glucose 226 H Calcium 8.5 L - ABG Interpretation ABG results: ABG ABG pH 7.46 pH Units (7.32-7.45) H D 08/25/17 08:40 ABG pCO2 38 mmHg (35-45) D 08/25/17 08:40 ABG pO2 49 mmHg (85-104) L* 08/25/17 08:40 ABG O2 Saturation 86 % (95-98) L 08/25/17 08:40 PT/INR, D-dimer PT 15.6 Seconds (9.4-12.1) H 08/25/17 00:28 Consult Discharge Plan - Plan Referrals: Damian Seymour MD [Primary Care Provider] - Palliative Quality Palliative Quality: Screen for Code Status: Yes, Screen for Goals of Care: Yes, Screen for Pain: Yes, If Pain Regimen Started, Initiate Bowel Regimen: NA, Screen for Nausea/Vomitting: Yes Code Status: 08/25/17 02:42 Resuscitation Status: Active [RES] Routine Comment: Resuscitation Status: Full Code <Nicholas Mcnamara L - Last Filed: 08/26/17 10:38> Date of Encounter: 08/26/17 Palliative-CN HPI - Data of Consult Requesting Physician: Santino Mosquera MD Primary Care Provider: Damian Seymour, - Consult Narrative History of present illness: Mr. Diaz is a 71 year old male CC: Santino Mosquera MD Palliative Care-Exam - Constitutional Vitals: Temp Pulse Resp BP Pulse Ox 97.4 F L 100 16 119/74 100 08/26/17 08:23 08/26/17 10:00 08/26/17 10:17 08/26/17 10:00 08/26/17 10:17 Internal Medicine - CN: Reslt - Labs CBC & Chem 7: 08/26/17 02:36 08/26/17 02:36 Labs: Short CBC 08/26/17 Range/Units 02:36 WBC 7.7 (4.3-11.1) K/mcL Hgb 7.2 L (12.9-16.9) g/dL Hct 24.3 L (37.5-50.1) % Plt Count 313 (140-400) K/mcL Neutrophils # 7.2 (1.6-8.9) K/mcL BMP 08/26/17 02:36 Sodium 139 Potassium 3.7 D Chloride 98 Carbon Dioxide 25 BUN 57 H Creatinine 2.03 H Glucose 226 H Calcium 8.5 L - ABG Interpretation ABG results: ABG ABG pH 7.46 pH Units (7.32-7.45) H D 08/25/17 08:40 ABG pCO2 38 mmHg (35-45) D 08/25/17 08:40 ABG pO2 49 mmHg (85-104) L* 08/25/17 08:40 ABG O2 Saturation 86 % (95-98) L 08/25/17 08:40 PT/INR, D-dimer PT 15.6 Seconds (9.4-12.1) H 08/25/17 00:28 - Attending Attestation I examined this patient and my medical decision-making was reviewed with the Resident Physician. I agree with the documented findings, disposition and treatment plan as described except to the extent set forth below. I have had lately independent conversation with the patient regarding his overall status. He back for the record is clear the patient has had trouble with being compliant with medical care in the past. He is to be is #1 problem. He asked if he was dying. Even the fact he just came off the ventilator, I do not believe that he is actively dying, however I did tell him in no uncertain terms if he does not comply with medical therapy he will undoubtedly from his heart and his lungs. I do not believe that his mental status is such for him that he should be making decisions for himself at this point in time, however rethinking that he is saying to be is consistent with his status currently, and at least when he was evaluated by palliative care back in April this year. also confirmed these facts with my resident when he is conversed with her earlier. At this point what is needed as for the family to have their own conversation. Palliative we will continue to follow but at a distance. Palliative Quality Code Status: 08/25/17 02:42 Resuscitation Status: Active [RES] Routine Comment: Resuscitation Status: Full Code
[2017-08-26] MEDS ORDERED: Insulin LISPRO 300 UNITS/3 ML VIAL SQ SCH (10:42)
[2017-08-26] MEDS ORDERED: D5% in Water 1,000 ML IVC PRN (11:01)
[2017-08-26] MEDS ORDERED: *HR* Metoprolol 5 MG/5 ML VIAL IVP PRN (11:01)
[2017-08-26] MEDS ORDERED: Dextrose Gel 15 GM PO PRN ×2 (11:01)
[2017-08-26] MEDS ORDERED: Naloxone 0.4 MG/ML INJ IVP PRN (11:01)
[2017-08-26] MEDS ORDERED: *HR* Dextrose 50 % in Water (Syg) 50 ML SYRINGE IVP PRN (11:01)
[2017-08-26] MEDS: *HR* Metoprolol 5 MG/5 ML VIAL IVP SCH ×3 (12:19→23:48)
[2017-08-26] MEDS ORDERED: methylPREDNISolone 125 MG/2 ML VIAL IVP SCH (16:00)
[2017-08-26] MEDS: MethylPREDNISolone 40 MG/ML VIAL IVP SCH ×2 (17:27→23:39)
[2017-08-27 02:23] LABS: Hematocrit 24.7 % (37.5-50.1); Hemoglobin 7.4 g/dL (12.9-16.9); Immature Granulocytes % 0.6 % (0-4); Lymphocytes # 0.2 K/mcL (0.6-4.6); Lymphocytes % 1.9 %; Mean Corpuscular Hemoglobin 26.1 pg (28.0-33.3); Monocytes # 0.6 K/mcL (0.0-1.3); Monocytes % 5.6 %; Platelet Count 359 K/mcL (140-400); Red Blood Count 2.84 M/mcL (4.19-5.50); Red Cell Distribution Width 17.7 % (11.5-14.5); Segmented Neutrophils % 91.9 %
[2017-08-27 02:35] LABS: Calcium 8.7 mg/dL (8.6-10.8); Magnesium 3.1 mg/dL (1.6-2.6); Phosphorous 6.1 mg/dL (2.3-4.7); Potassium 4.1 mEq/L (3.5-4.5)
[2017-08-27] MEDS ORDERED: Vancomycin 1,500 MG in D5% in Water 250 ML IVPB SCH (03:00)
[2017-08-27] MEDS: Ipratropium/Albuterol Neb 3 ML IH SCH ×4 (04:50→21:09)
[2017-08-27] MEDS: *HR* Heparin 5,000 UNIT/ML VIAL SQ SCH ×3 (04:53→22:29)
[2017-08-27] MEDS: *HR* Metoprolol 5 MG/5 ML VIAL IVP SCH ×3 (04:57→17:40)
[2017-08-27] MEDS: Cefepime HCl 1,000 MG in Water for inj. (sterile) 10 ML IVP SCH ×2 (05:01→17:44)
[2017-08-27] MEDS: Insulin LISPRO 300 UNITS/3 ML VIAL SQ SCH ×6 (05:10→20:23)
[2017-08-27] MEDS ORDERED: Aminoglycoside Consult 1 EACH MC ONE (08:32)
[2017-08-27] MEDS: Furosemide 40 MG/4 ML VIAL IVP SCH ×2 (10:11→16:46)
[2017-08-27] MEDS: MethylPREDNISolone 40 MG/ML VIAL IVP SCH ×2 (10:11→16:14)
[2017-08-27] MEDS: Pantoprazole 40 MG VIAL IVP SCH (10:12)
[2017-08-27] MEDS: Insulin DETEMIR 100 UNIT/ML X5UNITS SQ SCH ×2 (10:12→20:24)
--- NOTE | 2017-08-27 10:23 | Internal Med Progress Note ---
Date of Encounter: 08/27/17 Time of Encounter: 09:50 - Assessment and plan (1) Acute and chronic respiratory failure Current Visit: Yes Status: Acute Assessment and plan: improving; likely secondary to suspected Pneumonia, acute CHF, COPD, underlying GRAZYNA/OHS; Qualifiers: Respiratory failure complication: hypoxia and hypercapnia Qualified Code(s) : J96.21 - Acute and chronic respiratory failure with hypoxia; J96.22 - Acute and chronic respiratory failure with hypercapnia; J96.22 - Acute and chronic respiratory failure with hypercapnia; J96.22 - Acute and chronic respiratory failure with hypercapnia (2) Acute congestive heart failure Current Visit: Yes Status: Acute Assessment and plan: Acute on chronic diastolic CHF with GRAZYNA/OHS and possible pulmonary HTN; continue IV Lasix and fluid restriction; monitor urine output closely; medication reconciliation is incomplete; probably on beta june at home; Qualifiers: Congestive heart failure type: diastolic Qualified Code(s): I50.31 - Acute diastolic (congestive) heart failure (3) Qugty-he-toiryxz kidney injury Current Visit: Yes Status: Chronic Assessment and plan: serum creatinine stable, around 1.7; avoid nephrotoxic agents and monitor serum creatinine closely; Qualifiers: Acute renal failure type: unspecified Chronic kidney disease stage: stage 3 (moderate) Qualified Code(s): N17.9 - Acute kidney failure, unspecified; N18.9 - Chronic kidney disease, unspecified; N18.9 - Chronic kidney disease, unspecified (4) Pneumonia Current Visit: Yes Status: Acute Assessment and plan: suspected Pneumonia; continue Cefepime and hold Vancomycin for now; blood and ascitic fluid cultures remain negative so far; supportive care and supplemental O2; Qualifiers: Pneumonia type: due to unspecified organism Laterality: bilateral Lung location: unspecified part of lung Qualified Code(s): J18.9 - Pneumonia, unspecified organism (5) Ascites Current Visit: Yes Status: Acute Assessment and plan: s/p paracentesis; gram stain and culture of ascitic fluid negative; suggestive of transudative ascites related to CHF; continue diuresis; Qualifiers: Ascites type: other type Qualified Code(s): R18.8 - Other ascites (6) Acute exacerbation of chronic obstructive airways disease Current Visit: Yes Status: Acute Assessment and plan: continue IV steroids, taper down as tolerated; continue PRN bronchodilators and supplemental O2; (7) GRAZYNA (obstructive sleep apnea) Current Visit: Yes Status: Chronic (8) Afib Current Visit: Yes Status: Chronic Assessment and plan: currently rate-controlled; to obtain accurate home med list; Qualifiers: Atrial fibrillation type: paroxysmal Qualified Code(s): I48.0 - Paroxysmal atrial fibrillation (9) Essential hypertension Current Visit: Yes Status: Chronic (10) Anemia Current Visit: Yes Status: Chronic Assessment and plan: unlcear etiology; check serum iron profile, Vit B12 and folate levels; given his h/o- CAD, and Hb<8, will transfuse 1unit PRBC today; Qualifiers: Anemia type: unspecified type Qualified Code(s): D64.9 - Anemia, unspecified (11) Type 2 diabetes mellitus Current Visit: Yes Status: Chronic Assessment and plan: steroid-induced hyperglycemia; will start basal insulin and add nutritional insulin, continue sliding scale ACHS; diabetic diet; Qualifiers: Diabetes mellitus complication status: with hyperglycemia Diabetes mellitus penitentiary insulin use: with penitentiary use Qualified Code(s): E11.65 - Type 2 diabetes mellitus with hyperglycemia; Z79.4 - tank terminal gauger (current) use of insulin; Z79.4 - long-term (current) use of insulin; Z79.4 - tank terminal gauger ( current) use of insulin; Z79.4 - tank terminal gauger (current) use of insulin (12) Morbid obesity with BMI of 40.0-44.9, adult Current Visit: Yes Status: Chronic (13) Aortic stenosis Current Visit: Yes Status: Chronic Qualifiers: Cardiac valve disease etiology: nonrheumatic Qualified Code(s): I35.0 - Nonrheumatic aortic (valve) stenosis - Subjective Interval history: Reports feeling better, says he is somewhat confused since being in the hospital , does not exactly know what is going on with him; appears chronically sick with puffy face; denies chest pain, shortness of breath, chest pain, cough at this time; requests for more breakfast and would like to go home; - Constitutional Vitals: Temp Pulse Resp BP Pulse Ox 98.5 F 80 12 100/58 96 08/27/17 07:32 08/27/17 07:32 08/27/17 07:32 08/27/17 07:32 08/27/17 07:32 General appearance: Present: A&O X 2 (chronically ill-appearing), morbidly obese , answers questions appropriately - Respiratory Respiratory exam: Present: decreased breath sounds (B/L decreased air entry), CTAB. Absent: accessory muscle use, rales, rhonchi, wheezes - Cardiovascular Cardiovascular exam: Present: irregular rhythm, +S1, +S2. Absent: diastolic murmur, gallop, rubs, systolic murmur - GI/Abdominal GI/Abdominal exam: Present: normal bowel sounds, soft (obese), no peritoneal signs. Absent: distended, tenderness - Extremities Exam Extremities exam: Present: pedal edema (2+ pedal edema with stasis dermatitis B/ L legs), warm, radial pulses palpable and symmetrical. Absent: calf tenderness , cyanotic - Neurological Exam Neurological exam: Present: CN II-XII intact, no focal deficits. Absent: pronater drift, facial droop, speech deficit - Skin Skin exam: Present: dry, intact Internal Medicine: Result - Labs CBC & Chem 7: 08/27/17 01:59 08/27/17 01:59 Labs: Short CBC 08/27/17 Range/Units 01:59 WBC 10.9 (4.3-11.1) K/mcL Hgb 7.4 L (12.9-16.9) g/dL Hct 24.7 L (37.5-50.1) % Plt Count 359 (140-400) K/mcL Neutrophils # 10.0 H (1.6-8.9) K/mcL BMP 08/27/17 01:59 Sodium 139 Potassium 4.1 Chloride 99 Carbon Dioxide 27 BUN 63 H Creatinine 1.76 H Glucose 244 H Calcium 8.7 - ABG Interpretation ABG results: ABG ABG pH 7.46 pH Units (7.32-7.45) H D 08/25/17 08:40 ABG pCO2 38 mmHg (35-45) D 08/25/17 08:40 ABG pO2 49 mmHg (85-104) L* 08/25/17 08:40 ABG O2 Saturation 86 % (95-98) L 08/25/17 08:40 PT/INR, D-dimer PT 15.6 Seconds (9.4-12.1) H 08/25/17 00:28 - VTE Documentation of Mechanical Device: Intermittent pneumatic compression device Consult Discharge Plan - Plan Referrals: Damian Seymour MD [Primary Care Provider] -
[2017-08-27 11:04] LABS: Hemoglobin A1C 5.7 %
[2017-08-27 11:07] LABS: % Iron Saturation 6 % (20-55); Iron 20 mcg/dL (65-175); Transferrin 225 mg/dL (174-364)
[2017-08-27 11:28] LABS: Ferritin 154 ng/ml (22-275)
[2017-08-27 14:23] LABS: Folate 7.9 ng/mL (7.0-31.4)
[2017-08-27] MEDS ORDERED: 0.9 % Sodium Chloride 250 ML ONE (16:02)
[2017-08-27] MEDS ORDERED: Furosemide 40 MG/4 ML VIAL IVP ONE (19:51)
[2017-08-28] MEDS: *HR* Metoprolol 5 MG/5 ML VIAL IVP SCH ×5 (00:05→23:29)
[2017-08-28] MEDS: Ipratropium/Albuterol Neb 3 ML IH SCH ×4 (04:06→22:00)
[2017-08-28] MEDS: MethylPREDNISolone 40 MG/ML VIAL IVP SCH (05:00)
[2017-08-28 05:23] LABS: Basophils % 0.1 %; Hematocrit 27.9 % (37.5-50.1); Hemoglobin 8.2 g/dL (12.9-16.9); Immature Granulocytes % 0.9 % (0-4); Lymphocytes # 0.2 K/mcL (0.6-4.6); Lymphocytes % 1.7 %; Mean Corpuscular HGB Conc 29.4 g/dL (31.6-35.5); Mean Corpuscular Hemoglobin 25.7 pg (28.0-33.3); Mean Corpuscular Volume 87.5 fL (83.0-100.0); Mean Platelet Volume 9.1 fL (9.4-12.4); Monocytes # 1.1 K/mcL (0.0-1.3); Monocytes % 8.6 %; Neutrophils # 11.4 K/mcL (1.6-8.9); Nucleated Red Blood Cells 0.2 /100 WBC (0); Platelet Count 338 K/mcL (140-400); Red Blood Count 3.19 M/mcL (4.19-5.50); Red Cell Distribution Width 17.2 % (11.5-14.5); Segmented Neutrophils % 88.7 %
[2017-08-28 05:38] LABS: Calcium 8.5 mg/dL (8.6-10.8); Potassium 3.9 mEq/L (3.5-4.5)
[2017-08-28] MEDS ORDERED: Insulin LISPRO 300 UNITS/3 ML VIAL SQ ONE (06:01)
[2017-08-28] MEDS: Cefepime HCl 1,000 MG in Water for inj. (sterile) 10 ML IVP SCH ×2 (06:17→17:28)
[2017-08-28] MEDS: *HR* Heparin 5,000 UNIT/ML VIAL SQ SCH ×3 (06:18→23:29)
[2017-08-28] MEDS: Insulin DETEMIR 100 UNIT/ML X5UNITS SQ SCH ×3 (08:44→20:08)
[2017-08-28] MEDS: Insulin LISPRO 300 UNITS/3 ML VIAL SQ SCH ×7 (08:45→21:21)
[2017-08-28] MEDS: Pantoprazole 40 MG VIAL IVP SCH (08:50)
[2017-08-28] MEDS: Furosemide 40 MG/4 ML VIAL IVP SCH ×2 (08:50→17:28)
--- NOTE | 2017-08-28 12:06 | Internal Med Progress Note ---
Date of Encounter: 08/28/17 Time of Encounter: 11:30 - Assessment and plan (1) Acute and chronic respiratory failure Current Visit: Yes Status: Resolved Assessment and plan: improving; likely secondary to suspected Pneumonia, acute CHF, COPD, underlying GRAZYNA/OHS; Qualifiers: Respiratory failure complication: hypoxia and hypercapnia Qualified Code(s) : J96.21 - Acute and chronic respiratory failure with hypoxia; J96.22 - Acute and chronic respiratory failure with hypercapnia; J96.22 - Acute and chronic respiratory failure with hypercapnia; J96.22 - Acute and chronic respiratory failure with hypercapnia (2) Acute congestive heart failure Current Visit: Yes Status: Acute Assessment and plan: Acute on chronic diastolic CHF with GRAZYNA/OHS and possible pulmonary HTN; continue IV Lasix and fluid restriction; monitor urine output closely; medication reconciliation is incomplete; probably on beta june at home; Qualifiers: Congestive heart failure type: diastolic Qualified Code(s): I50.31 - Acute diastolic (congestive) heart failure (3) Madvq-ic-tnrmwis kidney injury Current Visit: Yes Status: Chronic Assessment and plan: serum creatinine stable, around 2; avoid nephrotoxic agents and monitor serum creatinine closely; Qualifiers: Acute renal failure type: unspecified Chronic kidney disease stage: stage 3 (moderate) Qualified Code(s): N17.9 - Acute kidney failure, unspecified; N18.3 - Chronic kidney disease, stage 3 (moderate); N18.3 - Chronic kidney disease, stage 3 (moderate) (4) Pneumonia Current Visit: Yes Status: Acute Assessment and plan: suspected Pneumonia; continue Cefepime- day 3; blood and ascitic fluid cultures remain negative so far; supportive care and supplemental O2; Qualifiers: Pneumonia type: due to unspecified organism Laterality: bilateral Lung location: unspecified part of lung Qualified Code(s): J18.9 - Pneumonia, unspecified organism (5) Ascites Current Visit: Yes Status: Resolved Assessment and plan: s/p paracentesis; gram stain and culture of ascitic fluid negative; suggestive of transudative ascites related to CHF; continue diuresis; Qualifiers: Ascites type: other type Qualified Code(s): R18.8 - Other ascites (6) Acute exacerbation of chronic obstructive airways disease Current Visit: Yes Status: Acute Assessment and plan: improving; will change to enteral steroids due to hyperglycemia; continue PRN bronchodilators and supplemental O2; (7) GRAZYNA (obstructive sleep apnea) Current Visit: Yes Status: Chronic (8) Afib Current Visit: Yes Status: Chronic Assessment and plan: currently rate-controlled; to obtain accurate home med list; Qualifiers: Atrial fibrillation type: paroxysmal Qualified Code(s): I48.0 - Paroxysmal atrial fibrillation (9) Essential hypertension Current Visit: Yes Status: Chronic (10) Anemia Current Visit: Yes Status: Chronic Assessment and plan: unlcear etiology; serum iron profile, Vit B12 and folate levels reviewed- iron level low; HB improved to 8.2 s/p 1unit PRBC transfusion; Qualifiers: Anemia type: unspecified type Qualified Code(s): D64.9 - Anemia, unspecified (11) Type 2 diabetes mellitus Current Visit: Yes Status: Chronic Assessment and plan: steroid-induced hyperglycemia; will increase basal insulin and nutritional insulin, continue sliding scale ACHS; diabetic diet; will change to oral steroids; Qualifiers: Diabetes mellitus complication status: with hyperglycemia Diabetes mellitus nursing home insulin use: with intermodal customer service use Qualified Code(s): E11.65 - Type 2 diabetes mellitus with hyperglycemia; Z79.4 - terminal operator (current) use of insulin; Z79.4 - terminal operator (current) use of insulin; Z79.4 - FPC ( current) use of insulin; Z79.4 - terminal operator (current) use of insulin (12) Morbid obesity with BMI of 40.0-44.9, adult Current Visit: Yes Status: Chronic (13) Aortic stenosis Current Visit: Yes Status: Chronic Qualifiers: Cardiac valve disease etiology: nonrheumatic Qualified Code(s): I35.0 - Nonrheumatic aortic (valve) stenosis - Subjective Interval history: Feels better; has issues with short term memory, worsening recently per him; continues to have leg swelling and facial puffiness, probably his baseline; blood sugars are elevated; denies fever/chills, nausea/vomiting, abdominal or chest pain; - Constitutional Vitals: Temp Pulse Resp BP Pulse Ox 97.5 F L 104 18 129/76 96 08/28/17 11:31 08/28/17 11:31 08/28/17 11:31 08/28/17 11:31 08/28/17 11:31 General appearance: Present: A&O X 3, morbidly obese, answers questions appropriately - Respiratory Respiratory exam: Present: CTAB. Absent: accessory muscle use, rales, rhonchi, wheezes - Cardiovascular Cardiovascular exam: Present: irregular rhythm, +S1, +S2. Absent: diastolic murmur, gallop, rubs, systolic murmur - GI/Abdominal GI/Abdominal exam: Present: normal bowel sounds, soft (obese with significant subcutaneous edema), no peritoneal signs. Absent: distended, tenderness - Extremities Exam Extremities exam: Present: pedal edema (3+ tense pedal edema), warm, radial pulses palpable and symmetrical. Absent: calf tenderness, cyanotic - Neurological Exam Neurological exam: Present: CN II-XII intact, oriented X3, no focal deficits. Absent: pronater drift, facial droop, speech deficit Internal Medicine: Result - Labs CBC & Chem 7: 08/28/17 04:49 08/28/17 04:49 Labs: Short CBC 08/28/17 Range/Units 04:49 WBC 12.8 H (4.3-11.1) K/mcL Hgb 8.2 L (12.9-16.9) g/dL Hct 27.9 L (37.5-50.1) % Plt Count 338 (140-400) K/mcL Neutrophils # 11.4 H (1.6-8.9) K/mcL BMP 08/28/17 04:49 Sodium 133 L Potassium 3.9 Chloride 95 L Carbon Dioxide 23 BUN 65 H Creatinine 2.13 H Glucose 563 H* Calcium 8.5 L - ABG Interpretation ABG results: ABG ABG pH 7.46 pH Units (7.32-7.45) H D 08/25/17 08:40 ABG pCO2 38 mmHg (35-45) D 08/25/17 08:40 ABG pO2 49 mmHg (85-104) L* 08/25/17 08:40 ABG O2 Saturation 86 % (95-98) L 08/25/17 08:40 PT/INR, D-dimer PT 15.6 Seconds (9.4-12.1) H 08/25/17 00:28 - VTE Documentation of Mechanical Device: Intermittent pneumatic compression device Consult Discharge Plan - Plan Referrals: Damian Seymour MD [Primary Care Provider] -
[2017-08-28] MEDS: dilTIAZem HCl 60 MG TABLET PO SCH (21:21)
[2017-08-29] MEDS: Ipratropium/Albuterol Neb 3 ML IH SCH ×4 (03:43→21:16)
[2017-08-29] MEDS: dilTIAZem HCl 60 MG TABLET PO SCH ×2 (04:02→08:12)
[2017-08-29] MEDS: *HR* Metoprolol 5 MG/5 ML VIAL IVP SCH (06:29)
[2017-08-29] MEDS: Cefepime HCl 1,000 MG in Water for inj. (sterile) 10 ML IVP SCH (06:29)
[2017-08-29] MEDS: *HR* Heparin 5,000 UNIT/ML VIAL SQ SCH ×3 (06:30→21:51)
[2017-08-29] MEDS: predniSONE 20 MG TABLET PO SCH (08:12)
[2017-08-29] MEDS: Pantoprazole 40 MG VIAL IVP SCH (08:12)
[2017-08-29] MEDS: Furosemide 40 MG/4 ML VIAL IVP SCH (08:12)
[2017-08-29] MEDS: Insulin LISPRO 300 UNITS/3 ML VIAL SQ SCH ×7 (08:16→21:58)
[2017-08-29] MEDS: Insulin DETEMIR 100 UNIT/ML X5UNITS SQ SCH ×2 (10:52→21:54)
[2017-08-29] MEDS ORDERED: Diltiazem CD (24hr) 180 MG CAPSULE PO STA (11:55)
[2017-08-29] MEDS ORDERED: *HR* Amiodarone 200 MG TABLET PO SCH (12:00)
--- NOTE | 2017-08-29 12:10 | Palliative Progress Note ---
Date of Encounter: 08/29/17 Time of Encounter: 07:15 - Assessment and plan (1) Acute exacerbation of chronic obstructive airways disease Current Visit: Yes Status: Acute Assessment and plan: Patient off then doing much better now. Juan hospitalist team (2) Congestive heart failure Current Visit: No Status: Acute Assessment and plan: Much improved at this time patient did have 10.2 L of ascitic fluid removed from his abdomen. The fluid appears to be consistent with congestive heart failure Qualifiers: Congestive heart failure type: diastolic Congestive heart failure chronicity: acute on chronic Qualified Code(s): I50.33 - Acute on chronic diastolic (congestive) heart failure (3) Diabetes mellitus with neuropathy Current Visit: No Status: Chronic Assessment and plan: Patient continues to be very noncompliant. Plan per hospitalist team Qualifiers: Diabetes mellitus type: type 2 Diabetes mellitus supervisor looping insulin use: with supervisor looping use Qualified Code(s): E11.40 - Type 2 diabetes mellitus with diabetic neuropathy, unspecified; Z79.4 - alf (current) use of insulin; Z79.4 - information assoc (current) use of insulin; Z79.4 - alf (current) use of insulin; Z79.4 - information assoc (current) use of insulin (4) Goals of care, counseling/discussion Current Visit: Yes Status: Acute Assessment and plan: Agent has been clear in the past was clear with me last week and continues to be clear with me this CODE STATUS is full. This is also been confirmed with his was his medical power of assistant attorney general. I am of the hospitalization the patient was being signed out by [facility]. I am sure that they will continue to be willing to follow him, however I am not completely convinced that he truly meets hospice criteria. They have determined that he does, I will not interfere with their making. I have had a honest conversation with the patient not once but twice and told him that if he is not compliant in care of his heart and his diabetes he will surely . He stated that in very blunt terms. Family had requested that be done in the past is now been done. Since the patient is have the conversation that was requested by his family in the past, changed any of his ideas, and he is clear on what his goals are. Palliative care will sign off at this time please feel free to reconsult if we can help. (5) Pulmonary edema Current Visit: No Status: Acute Qualifiers: Chronicity: acute Qualified Code(s): J81.0 - Acute pulmonary edema - Time Spent With Patient Total time spent is greater than 50% in coordination of care (as documented) at patient's floor/unit and/or counseling patient: - Subjective Interval history: She states she feels well, does state he remembers me from last week. He states his breathing is much improved and has no complaint of pain at this time he does wish to go home soon as possible. The patient states he does recall the conversation she had with me on Tuesday, states that he still wishes to a full code, I did go back over with him the need to be compliant states that he understands and will attempt to do so. During that conversation I did tell him pointed manner, that if he did not see a pain in his medical therapy as requested by us, that he would in fact from lack of compliance, therefore progression of his disease. - Constitutional Vitals: Abnormal lab results WBC 12.8 K/mcL (4.3-11.1) H 08/28/17 04:49 RBC 3.19 M/mcL (4.19-5.50) L 08/28/17 04:49 Hgb 8.2 g/dL (12.9-16.9) L 08/28/17 04:49 Hct 27.9 % (37.5-50.1) L 08/28/17 04:49 MCH 25.7 pg (28.0-33.3) L 08/28/17 04:49 MCHC 29.4 g/dL (31.6-35.5) L 08/28/17 04:49 RDW 17.2 % (11.5-14.5) H 08/28/17 04:49 MPV 9.1 fL (9.4-12.4) L 08/28/17 04:49 Neutrophils # 11.4 K/mcL (1.6-8.9) H 08/28/17 04:49 Lymphocytes # 0.2 K/mcL (0.6-4.6) L 08/28/17 04:49 Nucleated RBCs/100 WBC 0.2 /100 WBC (0) H 08/28/17 04:49 PT 15.6 Seconds (9.4-12.1) H 08/25/17 00:28 ABG pH 7.46 pH Units (7.32-7.45) H D 08/25/17 08:40 ABG pO2 49 mmHg (85-104) L* 08/25/17 08:40 ABG Total CO2 28 mEq/L (20-26) H 08/25/17 08:40 ABG O2 Saturation 86 % (95-98) L 08/25/17 08:40 Sodium 133 mEq/L (136-145) L 08/28/17 04:49 Chloride 95 mEq/L (98-109) L 08/28/17 04:49 BUN 65 mg/dL (8-26) H 08/28/17 04:49 Creatinine 2.13 mg/dL (0.72-1.25) H 08/28/17 04:49 Est GFR ( Amer) 37 (> 60) L 08/28/17 04:49 Est GFR (Non-Af Amer) 31 (> 60) L 08/28/17 04:49 BUN/Creatinine Ratio 31 (6-26) H 08/28/17 04:49 Glucose 563 mg/dL (70-99) H* 08/28/17 04:49 POC Glucose 387 (58-89) H 08/29/17 11:27 Hemoglobin A1c 5.7 % (-5.6) H 08/27/17 10:10 Calculated Osmolality 320 (280-300) H 08/28/17 04:49 Calcium 8.5 mg/dL (8.6-10.8) L 08/28/17 04:49 Phosphorus 6.1 mg/dL (2.3-4.7) H 08/27/17 01:59 Magnesium 3.1 mg/dL (1.6-2.6) H 08/27/17 01:59 Iron 20 mcg/dL (65-175) L 08/27/17 10:41 % Saturation 6 % (20-55) L 08/27/17 10:41 B-Natriuretic Peptide 930 pg/mL (0-100) H 08/25/17 00:28 Albumin 2.9 g/dL (3.5-5.0) L 08/25/17 00:28 Globulin 5.1 g/dL (2.4-3.5) H 08/25/17 00:28 Albumin/Globulin Ratio 0.6 (1.1-2.2) L 08/25/17 00:28 Peritoneal RBC 0.006 M/mcL (0.000-0.002) H 08/25/17 11:10 Vancomycin Trough 21.5 mcg/mL (10-20) H* 08/27/17 01:59 General appearance: Present: no acute distress - Head Head exam: Present: atraumatic, normal inspection - Respiratory Respiratory exam: Present: decreased breath sounds - Cardiovascular Cardiovascular exam: Present: RRR, tachycardia - GI/Abdominal GI/Abdominal exam: Present: normal bowel sounds, soft. Absent: tenderness - Extremities Exam Extremities exam: Present: pedal edema. Absent: tenderness - Neurological Exam Neurological exam: Present: alert, oriented X3 - Psychiatric Psychiatric exam: Absent: agitated, anxious - Skin Skin exam: Present: dry, warm Palliative Quality Palliative Quality: Screen for Code Status: Yes, Screen for Goals of Care: Yes, Screen for Pain: Yes, If Pain Regimen Started, Initiate Bowel Regimen: NA, Screen for Nausea/Vomitting: Yes Code Status: 08/25/17 02:42 Resuscitation Status: Active [RES] Routine Comment: Resuscitation Status: Full Code - Labs CBC & Chem 7: 08/28/17 04:49 08/28/17 04:49 Labs: Laboratory Results - last 24 hr 08/28/17 08/28/17 08/29/17 16:50 21:18 07:38 POC Glucose 352 H 286 H 379 H 08/29/17 11:27 POC Glucose 387 H - ABG Interpretation ABG results: ABG ABG pH 7.46 pH Units (7.32-7.45) H D 08/25/17 08:40 ABG pCO2 38 mmHg (35-45) D 08/25/17 08:40 ABG pO2 49 mmHg (85-104) L* 08/25/17 08:40 ABG O2 Saturation 86 % (95-98) L 08/25/17 08:40 PT/INR, D-dimer PT 15.6 Seconds (9.4-12.1) H 08/25/17 00:28 Consult Discharge Plan - Plan Referrals: Damian Seymour MD [Primary Care Provider] -
--- NOTE | 2017-08-29 12:22 | Internal Med Progress Note ---
Date of Encounter: 08/29/17 Time of Encounter: 12:18 - Assessment and plan (1) Acute and chronic respiratory failure Current Visit: Yes Status: Resolved Assessment and plan: improving; likely secondary to suspected Pneumonia, acute CHF, COPD, underlying GRAZYNA/OHS; Reviewed and summarized records from [facility] from Jul 2017; he was discharged home on 07/30/17; treated for acute decompensated HFpEF, GI bleed due to upper GI AVMs s/p argon photocoagulation and 6units PRBC transfusion. He was on Xarelto which was held after this hospitalization. He is at risk for readmissions due to multiple medical problems and poor patient and family education/knowledge; per notes, patient has not been on appropriate meds prior to this admission as was confused regarding the meds ; patient is currently not agreeable to being placed in ECF although he owns one ; health and social care teacher on the case; he did have home Hospice services at one time, he desires Full Code; Qualifiers: Respiratory failure complication: hypoxia and hypercapnia Qualified Code(s) : J96.21 - Acute and chronic respiratory failure with hypoxia; J96.22 - Acute and chronic respiratory failure with hypercapnia; J96.22 - Acute and chronic respiratory failure with hypercapnia; J96.22 - Acute and chronic respiratory failure with hypercapnia (2) Acute congestive heart failure Current Visit: Yes Status: Acute Assessment and plan: Acute on chronic diastolic CHF with GRAZYNA/OHS and possible pulmonary HTN; improving; will change to PO Torsemide; continue beta june, fluid restriction ; monitor urine output closely; medication reconciliation completed today; Qualifiers: Congestive heart failure type: diastolic Qualified Code(s): I50.31 - Acute diastolic (congestive) heart failure (3) Cvcos-qg-atzpovq kidney injury Current Visit: Yes Status: Chronic Assessment and plan: serum creatinine stable, around 2; avoid nephrotoxic agents and monitor serum creatinine closely; Qualifiers: Acute renal failure type: unspecified Chronic kidney disease stage: stage 3 (moderate) Qualified Code(s): N17.9 - Acute kidney failure, unspecified; N18.3 - Chronic kidney disease, stage 3 (moderate); N18.3 - Chronic kidney disease, stage 3 (moderate) (4) Pneumonia Current Visit: Yes Status: Acute Assessment and plan: suspected Pneumonia; completed 3 days of Cefepime; will change to Levaquin; blood and ascitic fluid cultures remain negative so far; supportive care and supplemental O2; Qualifiers: Pneumonia type: due to unspecified organism Laterality: bilateral Lung location: unspecified part of lung Qualified Code(s): J18.9 - Pneumonia, unspecified organism (5) Ascites Current Visit: Yes Status: Resolved Assessment and plan: 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 continue Torsemide, Spironolactone and Lactulose; [facility] recommends outpatient f/up with GI/Hepatology; check serum ammonia due to confusion; Qualifiers: Ascites type: other type Qualified Code(s): R18.8 - Other ascites (6) Acute exacerbation of chronic obstructive airways disease Current Visit: Yes Status: Acute Assessment and plan: improving; no prior diagnosis of COPD per [facility] records? continue enteral steroids to complete a 5-day course; continue PRN bronchodilators and supplemental O2; (7) GRAZYNA (obstructive sleep apnea) Current Visit: Yes Status: Chronic Assessment and plan: unclear if he has CPAP at home; (8) Afib Current Visit: Yes Status: Chronic Assessment and plan: noted to have RVR since last evening; obtained home meds today and d/w Pharmacist; restart Diltiazem CD and Metoprolol XL; anticoagulation with Xarelto has been on hold since recent [facility] admission due to melena; Hb currently around 7-8; may be restarted at a later date; Qualifiers: Atrial fibrillation type: paroxysmal Qualified Code(s): I48.0 - Paroxysmal atrial fibrillation (9) Essential hypertension Current Visit: Yes Status: Chronic (10) Anemia Current Visit: Yes Status: Chronic Assessment and plan: unlcear etiology; serum iron profile, Vit B12 and folate levels reviewed- iron level low; continue ferrous sulfate supplements; HB improved to 8.2 s/p 1unit PRBC transfusion; Qualifiers: Anemia type: iron deficiency Iron deficiency anemia type: unspecified iron deficiency Qualified Code(s): D50.9 - Iron deficiency anemia, unspecified (11) Type 2 diabetes mellitus Current Visit: Yes Status: Chronic Assessment and plan: steroid-induced hyperglycemia?; will increase basal insulin and continue nutritional insulin, continue sliding scale ACHS; diabetic diet; Qualifiers: Diabetes mellitus complication status: with hyperglycemia Diabetes mellitus shelter insulin use: with lifestyle consultant use Qualified Code(s): E11.65 - Type 2 diabetes mellitus with hyperglycemia; Z79.4 - [facility] (current) use of insulin; Z79.4 - [facility] (current) use of insulin; Z79.4 - cool roofing installer ( current) use of insulin; Z79.4 - cool roofing installer (current) use of insulin (12) Morbid obesity with BMI of 40.0-44.9, adult Current Visit: Yes Status: Chronic - Subjective Interval history: Continues to have issues with memory, otherwise oriented; no chest pain, cough, shortness of breath; has chronic leg swelling; blood sugars continue to be elevated; - Constitutional Vitals: Temp Pulse Resp BP Pulse Ox 97.7 F 117 16 101/58 98 08/29/17 11:29 08/29/17 11:29 08/29/17 11:29 08/29/17 11:29 08/29/17 11:29 General appearance: Present: A&O X 2 (appears chronically ill), morbidly obese, answers questions appropriately - Respiratory Respiratory exam: Present: CTAB. Absent: accessory muscle use, rales, rhonchi, wheezes - Cardiovascular Cardiovascular exam: Present: irregular rhythm, +S1, +S2, tachycardia. Absent: diastolic murmur, gallop, rubs, systolic murmur - GI/Abdominal GI/Abdominal exam: Present: normal bowel sounds, soft (obese), no peritoneal signs. Absent: distended, tenderness - Extremities Exam Extremities exam: Present: pedal edema (3+ pedal edema and stasis dermatitis B/ L anterior legs), warm, radial pulses palpable and symmetrical. Absent: calf tenderness, cyanotic - Neurological Exam Neurological exam: Present: altered, CN II-XII intact, no focal deficits. Absent: pronater drift, facial droop, speech deficit Internal Medicine: Result - Labs CBC & Chem 7: 08/28/17 04:49 08/28/17 04:49 - ABG Interpretation ABG results: ABG ABG pH 7.46 pH Units (7.32-7.45) H D 08/25/17 08:40 ABG pCO2 38 mmHg (35-45) D 08/25/17 08:40 ABG pO2 49 mmHg (85-104) L* 08/25/17 08:40 ABG O2 Saturation 86 % (95-98) L 08/25/17 08:40 PT/INR, D-dimer PT 15.6 Seconds (9.4-12.1) H 08/25/17 00:28 - VTE Documentation of Mechanical Device: Intermittent pneumatic compression device Consult Discharge Plan - Plan Referrals: Damian Seymour MD [Primary Care Provider] -
[2017-08-29] MEDS: *HR* Metoprolol 5 MG/5 ML VIAL IVP PRN (14:46)
[2017-08-29] MEDS ORDERED: Levofloxacin 750 MG/150 ML 750 MG/150 ML BAG IVPB SCH (16:00)
--- NOTE | 2017-08-29 16:52 | Electrocardiograph Report ---
[address] [place], [place] [address] Test Date: 2017-08-26 Pat Name: Jaime Diaz Department: [id number] Room: 3A45 Gender: M Student Accounts Coordinator: : 1945 Requested By: Sonja Pickett Order Number: [id number] Reading MD: Damian Calderon Measurements Intervals [place] Rate: 101 P: ND: 0 QRS: 123 QRSD: 210 T: -60 QT: 444 QTc: 502 Interpretive Statements ATRIAL FLUTTER/TACHYCARDIA WITH RAPID VENTRICULAR RESPONSE MARKED RIGHT AXIS DEVIATION RIGHT BUNDLE BRANCH BLOCK ST DEVIATION AND MODERATE T-WAVE ABNORMALITY, CONSIDER LATERAL ISCHEMIA ST DEVIATION AND MODERATE T-WAVE ABNORMALITY, CONSIDER INFERIOR ISCHEMIA Electronically Signed On 08-29-2017 16:50:29 EST by Damian Calderon
[2017-08-29] MEDS: Torsemide 20 MG TABLET PO SCH (17:13)
[2017-08-30] MEDS: *HR* Metoprolol 5 MG/5 ML VIAL IVP PRN (02:47)
[2017-08-30] MEDS: Ipratropium/Albuterol Neb 3 ML IH SCH ×4 (03:30→23:25)
[2017-08-30] MEDS: *HR* Heparin 5,000 UNIT/ML VIAL SQ SCH ×3 (06:19→20:59)
[2017-08-30] MEDS: Metoprolol XL (24 HR) Succ 50 MG TAB.ER.24H PO SCH (08:31)
[2017-08-30] MEDS: Lactulose Oral Soln 20 GM/30 ML UDC PO SCH (08:31)
[2017-08-30] MEDS: Insulin LISPRO 300 UNITS/3 ML VIAL SQ SCH ×7 (08:32→21:00)
[2017-08-30] MEDS: Torsemide 20 MG TABLET PO SCH ×2 (08:32→16:31)
[2017-08-30] MEDS: Diltiazem CD (24hr) 180 MG CAPSULE PO SCH ×2 (08:32→20:59)
[2017-08-30] MEDS: Spironolactone 25 MG TABLET PO SCH (08:33)
[2017-08-30] MEDS: Insulin DETEMIR 100 UNIT/ML X5UNITS SQ SCH ×3 (08:33→21:01)
[2017-08-30] MEDS: predniSONE 20 MG TABLET PO SCH (08:35)
[2017-08-30] MEDS ORDERED: Diltiazem CD (24hr) 180 MG CAPSULE PO SCH (09:00)
--- NOTE | 2017-08-30 10:42 | Internal Med Progress Note ---
Date of Encounter: 08/30/17 Time of Encounter: 10:40 - Assessment and plan (1) Acute and chronic respiratory failure Current Visit: Yes Status: Resolved Assessment and plan: Patient has been extubated. He is on about 4 L of oxygen. His is multifactorial. He is being treated for CHF exacerbation as well as healthcare associated pneumonia. He also had a ascites that was contributing to his breathing issues which was drained. We will continue with diuresis with oral torsemide. Continue spironolactone. Continue prednisone. He will need to be on a taper at discharge. Continue to wean down oxygen as tolerated. Continue with nebulizers. Qualifiers: Respiratory failure complication: hypoxia and hypercapnia Qualified Code(s) : J96.21 - Acute and chronic respiratory failure with hypoxia; J96.22 - Acute and chronic respiratory failure with hypercapnia; J96.22 - Acute and chronic respiratory failure with hypercapnia; J96.22 - Acute and chronic respiratory failure with hypercapnia (2) Afib Current Visit: Yes Status: Chronic Assessment and plan: Continue with Cardizem and Toprol-XL. He is rate controlled. He is not on any anticoagulation due to low hemoglobin and melena. Qualifiers: Atrial fibrillation type: paroxysmal Qualified Code(s): I48.0 - Paroxysmal atrial fibrillation (3) Essential hypertension Current Visit: Yes Status: Chronic Assessment and plan: Blood pressure stable continue with Cardizem and beta june. (4) Acute exacerbation of CHF (congestive heart failure) Current Visit: No Status: Acute Qualifiers: Congestive heart failure type: combined Qualified Code(s): I50.43 - Acute on chronic combined systolic (congestive) and diastolic (congestive) heart failure (5) Type 2 diabetes mellitus Current Visit: Yes Status: Chronic Assessment and plan: Continue with insulin sliding scale as well as Levemir 45 units twice a day. Continue the Accu-Cheks. Qualifiers: Diabetes mellitus complication status: with hyperglycemia Diabetes mellitus jail insulin use: with boiler house operator use Qualified Code(s): E11.65 - Type 2 diabetes mellitus with hyperglycemia; Z79.4 - [facility] (current) use of insulin; Z79.4 - dope pourer (current) use of insulin; Z79.4 - [facility] ( current) use of insulin; Z79.4 - dope pourer (current) use of insulin (6) Morbid obesity with BMI of 40.0-44.9, adult Current Visit: Yes Status: Chronic Assessment and plan: Patient has been counseled. (7) COPD exacerbation Current Visit: No Status: Acute Assessment and plan: Continue nebulizers. The patient is on prednisone. This needs to be tapered at discharge. Continue Levaquin. (8) Chronic kidney disease (CKD), stage III (moderate) Current Visit: No Status: Chronic Assessment and plan: Seems to be around baseline. We will check labs this morning. Avoid nephrotoxins that are not necessary. (9) GRAZYNA (obstructive sleep apnea) Current Visit: Yes Status: Chronic Assessment and plan: unclear if he has CPAP at home; (10) DVT prophylaxis Current Visit: No Status: Acute Assessment and plan: Heparin subcutaneous. (11) HCAP (healthcare-associated pneumonia) Current Visit: Yes Status: Acute Assessment and plan: Continue Levaquin. The patient was on cefepime and vancomycin at some point while he was hospitalized here. Cultures have been negative. We will continue to follow. - Subjective Interval history: No acute events. The patient continues to improve. He says his breathing is much improved. He does still get short of breath with some exertion in bed. He is not really worked with therapy however. He tells me he lives with his . He uses oxygen on and off. He is about 3-4 L at home. He has been afebrile. - Constitutional Vitals: Temp Pulse Resp BP Pulse Ox 98.5 F 115 14 108/70 98 08/30/17 10:31 08/30/17 10:31 08/30/17 10:31 08/30/17 10:31 08/30/17 10:31 General appearance: Present: A&O X 2 (appears chronically ill), morbidly obese, answers questions appropriately Exam: GEN: NAD CVS: RRR. S1, S2, No m/r/g RESP: diminshed. crackles at bases. Has expiratory wheezes in frontal lung yanez ABD: distended , NT, ND, +BS EXT: Chronic LE ulceration and venous statis noted. 2+ DP, No rashes NEURO: Nonfocal Internal Medicine: Result - Labs CBC & Chem 7: 08/28/17 04:49 08/28/17 04:49 - ABG Interpretation ABG results: ABG ABG pH 7.46 pH Units (7.32-7.45) H D 08/25/17 08:40 ABG pCO2 38 mmHg (35-45) D 08/25/17 08:40 ABG pO2 49 mmHg (85-104) L* 08/25/17 08:40 ABG O2 Saturation 86 % (95-98) L 08/25/17 08:40 PT/INR, D-dimer PT 15.6 Seconds (9.4-12.1) H 08/25/17 00:28 - VTE Documentation of Mechanical Device: Intermittent pneumatic compression device Consult Discharge Plan - Plan Referrals: Damian Seymour MD [Primary Care Provider] -
[2017-08-30 10:54] LABS: Eosinophils # 0.3 K/mcL (0.0-0.6); Eosinophils % 1.8 %; Hematocrit 28.4 % (37.5-50.1); Hemoglobin 8.6 g/dL (12.9-16.9); Immature Granulocytes % 0.5 % (0-4); Lymphocytes # 0.3 K/mcL (0.6-4.6); Lymphocytes % 2.2 %; Mean Corpuscular HGB Conc 30.3 g/dL (31.6-35.5); Mean Corpuscular Hemoglobin 26.7 pg (28.0-33.3); Mean Corpuscular Volume 88.2 fL (83.0-100.0); Mean Platelet Volume 9.5 fL (9.4-12.4); Monocytes % 7.2 %; Neutrophils # 12.7 K/mcL (1.6-8.9); Nucleated Red Blood Cells 0.2 /100 WBC (0); Platelet Count 315 K/mcL (140-400); Red Blood Count 3.22 M/mcL (4.19-5.50); Red Cell Distribution Width 16.8 % (11.5-14.5); Segmented Neutrophils % 88.3 %
[2017-08-30 11:11] LABS: Calcium 8.6 mg/dL (8.6-10.3); Potassium 4.1 mEq/L (3.5-5.1)
[2017-08-30] MEDS ORDERED: Insulin LISPRO 300 UNITS/3 ML VIAL SQ ONE (22:01)
[2017-08-31] MEDS: Ipratropium/Albuterol Neb 3 ML IH SCH ×2 (03:37→10:40)
[2017-08-31] MEDS: *HR* Heparin 5,000 UNIT/ML VIAL SQ SCH (04:52)
[2017-08-31 06:30] LABS: Basophils % 0.1 %; Eosinophils # 0.3 K/mcL (0.0-0.6); Eosinophils % 1.7 %; Hematocrit 29.8 % (37.5-50.1); Hemoglobin 8.9 g/dL (12.9-16.9); Immature Granulocytes % 0.5 % (0-4); Lymphocytes # 0.5 K/mcL (0.6-4.6); Lymphocytes % 3.5 %; Mean Corpuscular HGB Conc 29.9 g/dL (31.6-35.5); Mean Corpuscular Hemoglobin 25.8 pg (28.0-33.3); Mean Corpuscular Volume 86.4 fL (83.0-100.0); Mean Platelet Volume 9.2 fL (9.4-12.4); Monocytes # 1.3 K/mcL (0.0-1.3); Monocytes % 9.1 %; Neutrophils # 12.5 K/mcL (1.6-8.9); Nucleated Red Blood Cells 0.1 /100 WBC (0); Platelet Count 322 K/mcL (140-400); Red Blood Count 3.45 M/mcL (4.19-5.50); Red Cell Distribution Width 16.7 % (11.5-14.5); Segmented Neutrophils % 85.1 %
[2017-08-31 07:11] LABS: Calcium 8.7 mg/dL (8.6-10.3); Potassium 3.6 mEq/L (3.5-5.1)
[2017-08-31] MEDS: Lactulose Oral Soln 20 GM/30 ML UDC PO SCH (08:40)
[2017-08-31] MEDS: Diltiazem CD (24hr) 180 MG CAPSULE PO SCH (08:41)
[2017-08-31] MEDS: Metoprolol XL (24 HR) Succ 50 MG TAB.ER.24H PO SCH (08:41)
[2017-08-31] MEDS: predniSONE 20 MG TABLET PO SCH (08:41)
[2017-08-31] MEDS: Spironolactone 25 MG TABLET PO SCH (08:41)
[2017-08-31] MEDS: Torsemide 20 MG TABLET PO SCH (08:42)
[2017-08-31] MEDS: Insulin LISPRO 300 UNITS/3 ML VIAL SQ SCH ×4 (08:44→11:32)
[2017-08-31] MEDS: Insulin DETEMIR 100 UNIT/ML X5UNITS SQ SCH (08:47)
[2017-08-31] MEDS ORDERED: Insulin DETEMIR 100 UNIT/ML X5UNITS SQ ONE (09:54)
[2017-08-31] MEDS ORDERED: *HR* Rivaroxaban 10 MG TABLET PO SCH (10:00)
--- NOTE | 2017-08-31 10:11 | Discharge Summary ---
Date of Encounter: 08/31/17 Time of Encounter: 10:00 - Discharge Diagnosis (1) Acute and chronic respiratory failure Priority: Primary Status: Resolved Qualifiers: Respiratory failure complication: hypoxia and hypercapnia Qualified Code(s) : J96.21 - Acute and chronic respiratory failure with hypoxia; J96.22 - Acute and chronic respiratory failure with hypercapnia; J96.22 - Acute and chronic respiratory failure with hypercapnia; J96.22 - Acute and chronic respiratory failure with hypercapnia (2) Afib Priority: Secondary Status: Chronic Qualifiers: Atrial fibrillation type: paroxysmal Qualified Code(s): I48.0 - Paroxysmal atrial fibrillation (3) Essential hypertension Priority: Secondary Status: Chronic (4) Acute exacerbation of CHF (congestive heart failure) Priority: Primary Status: Acute Qualifiers: Congestive heart failure type: combined Qualified Code(s): I50.43 - Acute on chronic combined systolic (congestive) and diastolic (congestive) heart failure (5) Type 2 diabetes mellitus Priority: Secondary Status: Chronic Qualifiers: Diabetes mellitus complication status: with hyperglycemia Diabetes mellitus medical terminologist insulin use: with alf use Qualified Code(s): E11.65 - Type 2 diabetes mellitus with hyperglycemia; Z79.4 - medical terminologist (current) use of insulin; Z79.4 - medical terminologist (current) use of insulin; Z79.4 - snf ( current) use of insulin; Z79.4 - snf (current) use of insulin (6) Morbid obesity with BMI of 40.0-44.9, adult Priority: Secondary Status: Chronic (7) COPD exacerbation Priority: Primary Status: Acute (8) Chronic kidney disease (CKD), stage III (moderate) Priority: Secondary Status: Chronic (9) GRAZYNA (obstructive sleep apnea) Priority: Secondary Status: Chronic (10) HCAP (healthcare-associated pneumonia) Priority: Primary Status: Acute - Discharge Medications Prescriptions: Insulin DETEMIR [Levemir] 55 unit SQ BID #30 mls predniSONE [PredniSONE] 20 mg PO DAILY #3 tablet Home Medications: Aspirin 81 mg PO DAILY 04/28/15 [History] Atorvastatin [Lipitor] 40 mg PO HS 04/28/15 [History] Ferrous Sulfate 325 mg PO BID 04/28/15 [History] Albuterol Sulfate [Proair Hfa] 2 puff IH Q4H PRN 01/25/17 [History] Metoprolol Succinate 200 mg PO DAILY 05/16/17 [History] Oxygen 3 l NS CONT 02/03/17 [History] Diltiazem HCl [Diltiazem 24Hr Cd] 180 mg PO BID 04/06/17 [History] Insulin LISPRO [HumaLOG] 6 units SQ TIDWM PRN 04/06/17 [History] Spironolactone [Aldactone] 12.5 mg PO DAILY 06/17/17 [History] Ipratropium/Albuterol Neb [Duoneb] 3 ml IH Q4HR PRN 07/01/17 [History] Lactulose 10 gm PO DAILY 08/30/17 [History] Pantoprazole Sodium [Protonix] 40 mg PO BID 08/30/17 [History] Potassium Chloride Elixir [Potassium Chloride] 0 meq PO DAILY 08/30/17 [History] Sennosides [Senokot] 8.6 mg PO DAILY 08/30/17 [History] SitaGLIPtin [Januvia] 100 mg PO DAILY 08/30/17 [History] Torsemide [Demadex] 40 mg PO BID 08/30/17 [History] Insulin DETEMIR [Levemir] 55 unit SQ BID #30 mls 08/31/17 [Rx] predniSONE [PredniSONE] 20 mg PO DAILY #3 tablet 08/31/17 [Rx] Allergies/Adverse Reactions: 3 Allergy/AdvReac Type Severity Reaction Status Date / Time bupropion [From Wellbutrin] Allergy Difficulty Verified 06/17/17 00:14 Breathing codeine Allergy Difficulty Verified 06/17/17 00:14 Breathing Opioids-Meperidine and Allergy Difficulty Verified 06/17/17 00:14 Related Breathing [Opioids-Meperidine & Related] Procedures/tests Complete & Pending: Procedures Performed prior 72 hours Category Date Time Status ECG 12 lead ECG [ECG] Stat Y 08/28/17 19:19 Completed Date of admission: 08/25/17 02:14 Primary care physician: Damian Seymour, Consults: 08/25/17 02:50 Consult to Interventional Radiology [CONS] Routine Consulting Provider: Radiology Interventional Cols Reason for Consult: paracentesis Call Completed: Yes 08/25/17 03:08 Consult to Pulmonology [CONS] Routine Consulting Provider: Pulm Crit Care & Sleep Margaret Reason for Consult: acute on chronic respiratory failure, CHF exacerbation, ventilator support Call Completed: Yes 08/26/17 08:36 Consult to Palliative Care [CONS] Routine Comment: Consulting Provider: Palliative Care Bonnyman Reason for Consult: goal of care discussion Call Completed: Yes 08/29/17 11:35 Consult to Occupational Therapy [CONS] Routine Comment: Evaluate, develop and implement POC Reason for Consult: Generalized weakness, deconditioning Consult to Physical Therapy [CONS] Routine Comment: Evaluate, develop and implement POC Reason for Consult: Generalized weakness, deconditioning Consult to On Car Supervisor [CONS] Routine Reason for SW Consult: safe discharge plan; multiple medical problems, at risk for readmission, seems to have confusion and memory lapses at baseline - Patient Status Disposition: Home, Self-Care Condition: Fair Overall status at discharge: patient is progressing back to baseline - Discharge Instructions Instructions: Prednisone (By mouth), Insulin Detemir (Injection), Heart Failure (DC), Chronic Obstructive Pulmonary Disease (DC), Chronic Hypertension ( DC), Anemia (GEN) Follow Up With: Damian Seymour MD [Primary Care Provider] - (Hospice. No appointment necessary.) - Diet and Activity Activity: wear oxygen at all times Diet: diabetic diet Hospital course: Mr. Diaz is a 71 year old male with past medical history of cirrhosis, ascites , DM, CHF, atrial fibrillation and COPD who presented via EMS to the [facility] Emergency Department with a chief complaint of difficulty breathing. Per EMS and ER physician, patient was hypoxic with O2 in the 70s with nursing placing him on oxygen at the facility. He was unable to tolerate Bipap along with decline in mental status, agitation and hypoxia prompting endotracheal intubation. Initial workup shows WBC 11.5, Hgb 7.7, K 5.0, BUN 52, Cr 2.16, Lactic acid 0.8 and BNP 930. ABG showed pH 7.34, pCO2 57 , pO2 70 and HCO3 31. CXR showed bilateral infiltrates with moderate right pleural effusion. Vitals signs are stable. ED gave Vancomycin, Zosyn and Levaquin with Lasix 40 IV. Blood cultures were collected. He was admitted to the ICU and was eventually extubated while being treated for pneumonia. Also underwent paracentesis with fluids coming back likely from cardiac. He was diuresed. He was also on steroids for wheezing and was tapered at discharged. He was eventually stable for discharge on 08/31/2017 after treating pneumonia, COPD exacerbation, and acute exacerbation of combined CHF. Of note, he did have elevated creatinine compared to baseline on admission but was back to around baseline on discharge. We encountered significant hyperglycemia while on steroids and I anticipate his glucose would be better controlled with him being tapered off steroids. - Time Spent with Patient Total time spent providing and/or coordinating discharge services: Greater than 30 minutes - Constitutional Vitals: Temp Pulse Resp BP Pulse Ox 97.9 F 116 18 129/74 100 08/31/17 07:00 08/31/17 07:00 08/31/17 07:00 08/31/17 07:00 08/31/17 07:00 General appearance: Present: A&O X 2 (appears chronically ill), morbidly obese, answers questions appropriately Exam: GEN: NAD CVS: RRR. S1, S2, No m/r/g RESP: diminshed. crackles at bases. No wheezes ABD: distended , NT, ND, +BS EXT: Chronic LE ulceration and venous statis noted. 2+ DP, No rashes NEURO: Nonfocal - VTE Documentation of Mechanical Device: Intermittent pneumatic compression device
--- NOTE | 2017-08-31 10:12 | Physician Discharge Referral ---
Home Health/Hosp Referral Info Transfer to: Home Health, Hospice - Diagnosis (1) Acute and chronic respiratory failure Status: Resolved (2) Afib Priority: Secondary Status: Chronic (3) Essential hypertension Priority: Secondary Status: Chronic (4) Acute exacerbation of CHF (congestive heart failure) Priority: Primary Status: Acute (5) Type 2 diabetes mellitus Priority: Secondary Status: Chronic (6) Morbid obesity with BMI of 40.0-44.9, adult Status: Chronic (7) COPD exacerbation Priority: Primary Status: Acute (8) Chronic kidney disease (CKD), stage III (moderate) Priority: Secondary Status: Chronic (9) GRAZYNA (obstructive sleep apnea) Priority: Secondary Status: Chronic (10) HCAP (healthcare-associated pneumonia) Priority: Primary Status: Acute - Respiratory Orders Oxygen / L per min (3L) Smoking Cessation: Smoking cessation has been advised. For more information, call the [employer] Tobacco Quit Line at 4-846-HBJN-NOW. - Diet/Nutrition Diet/Nutrition Orders: Cardiac (diabetic) - Activity Activity Orders: Up ad andrea - Services Needed Following services are medically necessary services: Home Health Aide, Physical Therapy, Occupational Therapy - Transfer Medications Prescriptions: Insulin DETEMIR [Levemir] 55 unit SQ BID #30 mls predniSONE [PredniSONE] 20 mg PO DAILY #3 tablet Home Medications: Aspirin 81 mg PO DAILY 04/28/15 [History] Atorvastatin [Lipitor] 40 mg PO HS 04/28/15 [History] Ferrous Sulfate 325 mg PO BID 04/28/15 [History] Albuterol Sulfate [Proair Hfa] 2 puff IH Q4H PRN 01/25/17 [History] Metoprolol Succinate 200 mg PO DAILY 01/25/17 [History] Oxygen 3 l NS CONT 02/03/17 [History] Diltiazem HCl [Diltiazem 24Hr Cd] 180 mg PO BID 04/06/17 [History] Insulin LISPRO [HumaLOG] 6 units SQ TIDWM PRN 04/06/17 [History] Spironolactone [Aldactone] 12.5 mg PO DAILY 06/17/17 [History] Ipratropium/Albuterol Neb [Duoneb] 3 ml IH Q4HR PRN 07/01/17 [History] Lactulose 10 gm PO DAILY 08/30/17 [History] Pantoprazole Sodium [Protonix] 40 mg PO BID 08/30/17 [History] Potassium Chloride Elixir [Potassium Chloride] 0 meq PO DAILY 08/30/17 [History] Sennosides [Senokot] 8.6 mg PO DAILY 08/30/17 [History] SitaGLIPtin [Januvia] 100 mg PO DAILY 08/30/17 [History] Torsemide [Demadex] 40 mg PO BID 08/30/17 [History] Insulin DETEMIR [Levemir] 55 unit SQ BID #30 mls 08/31/17 [Rx] predniSONE [PredniSONE] 20 mg PO DAILY #3 tablet 08/31/17 [Rx] Allergies/Adverse Reactions: 3 Allergy/AdvReac Type Severity Reaction Status Date / Time bupropion [From Wellbutrin] Allergy Difficulty Verified 06/17/17 00:14 Breathing codeine Allergy Difficulty Verified 06/17/17 00:14 Breathing Opioids-Meperidine and Allergy Difficulty Verified 06/17/17 00:14 Related Breathing [Opioids-Meperidine & Related] Certification: Further, I certify that my clinical findings support that this patient is homebound (i.e. absences from home require considerable and taxing effort and are for medical reasons or evangelical services or infrequently or short duration when for other reasons) because: Homebound Reason: Patient requires assistance of a person or device to safely leave home Attestation: My signature below is to certify that this patient is under my care and that I, or nurse practitioner, or a physician's assistant boiler operator working with me, has a face-to -face encounter with this patient.
[2017-08-31 14:13] VITALS: BP 97/53
[2017-08-31] MEDS ORDERED: Insulin DETEMIR 100 UNIT/ML X5UNITS SQ SCH (21:00)
[2017-09-01] MEDS ORDERED: predniSONE 20 MG TABLET PO SCH (09:00)
== END 2017-08-31 14:47 | disposition hospice, home (50) | DRG 208 ==
LOC: EMEROO 23:54 → ICNU 08-25 02:14 → SUATTDRO 08-25 02:14 → ICNU 08-25 03:03 → 3ANU 08-26 15:57
PROVIDERS: ADMIT Internal Medicine Hematology & Oncology; ATTEND Internal Medicine

== ENCOUNTER 2017-09-20 07:10 | Inpatient (IN) ==
[2017-09-20 07:52] LABS: Basophils # 0.1 K/mcL (0.0-0.2); Basophils % 0.6 %; Eosinophils # 0.2 K/mcL (0.0-0.6); Eosinophils % 1.7 %; Hematocrit 31.4 % (37.5-50.1); Hemoglobin 9.2 g/dL (12.9-16.9); Immature Granulocytes % 0.7 % (0-4); Lymphocytes # 0.4 K/mcL (0.6-4.6); Mean Corpuscular HGB Conc 29.3 g/dL (31.6-35.5); Mean Corpuscular Hemoglobin 24.6 pg (28.0-33.3); Monocytes % 11.1 %; Platelet Count 447 K/mcL (140-400); Red Blood Count 3.74 M/mcL (4.19-5.50); Red Cell Distribution Width 16.8 % (11.5-14.5); Segmented Neutrophils % 80.9 %
[2017-09-20 08:03] LABS: Calcium 8.7 mg/dL (8.6-10.3); Potassium 3.2 mEq/L (3.5-5.1)
[2017-09-20] MEDS ORDERED: Nitroglycerin 1 INCH/GM PACKET TP ONE (08:34)
--- NOTE | 2017-09-20 08:37 | Emergency Department Note ---
Disposition Clinical Impression: Scrotal swelling, Acute kidney injury Congestive heart failure Qualifiers: Congestive heart failure type: diastolic Congestive heart failure chronicity: acute on chronic Qualified Code(s): I50.33 - Acute on chronic diastolic ( congestive) heart failure Anemia Qualifiers: Anemia type: unspecified type Qualified Code(s): D64.9 - Anemia, unspecified Disposition: Admitted As Inpatient Condition: Fair Time of Disposition: 08:50 SOB HPI - General Chief Complaint: ED Shortness of Breath/Dyspnea Stated Complaint: WESLEY Time Seen by Provider: 09/20/17 07:17 Source: patient, EMS Mode of arrival: ambulatory Limitations: no limitations Nursing Notes Reviewed: Yes Vital Signs Reviewed: Yes - History of Present Illness 71-year-old male with history of CHF, COPD presents for evaluation of dyspnea. Symptom onset was yesterday. Patient states dyspnea is worse with a nonproductive cough. Patient denies any chest pain. Patient typically requires 2 L nasal cannula. Patient reports that he has been taking his medications as prescribed. Patient continues to produce urine. Patient also noted some increased swelling in his scrotum. Patient denies any fever. States that he was admitted last month with similar complaints. Typically sleeps with head of bed raised. Denies any history of increased oral fluid intake. - Related Data Home Medications Medication Instructions Recorded Confirmed Aspirin 81 mg PO DAILY 04/28/15 09/20/17 Atorvastatin [Lipitor] 40 mg PO HS 04/28/15 09/20/17 Ferrous Sulfate 325 mg PO BID 04/28/15 09/20/17 Albuterol Sulfate [Proair Hfa] 2 puff IH Q4H PRN 01/25/17 09/20/17 Metoprolol Succinate 200 mg PO DAILY 01/25/17 09/20/17 Oxygen 3 l NS CONT 02/03/17 09/20/17 Insulin LISPRO [HumaLOG] 0 units SQ TIDWM 04/06/17 09/20/17 Spironolactone [Aldactone] 12.5 mg PO DAILY 06/17/17 09/20/17 Ipratropium/Albuterol Neb [Duoneb] 3 ml IH Q4HR PRN 07/01/17 09/20/17 Lactulose 10 gm PO DAILY 08/30/17 09/20/17 Pantoprazole Sodium [Protonix] 40 mg PO DAILY 08/30/17 09/20/17 Sennosides [Senokot] 8.6 mg PO DAILY 08/30/17 09/20/17 SitaGLIPtin [Januvia] 100 mg PO DAILY 08/30/17 09/20/17 Torsemide [Demadex] 40 mg PO BID 08/30/17 09/20/17 Diltiazem CD (24hr) [Cardizem CD] 120 mg PO DAILY 09/20/17 09/20/17 Insulin DETEMIR [Levemir] 35 unit SQ BID 09/20/17 09/20/17 Allergies Allergy/AdvReac Type Severity Reaction Status Date / Time bupropion [From Wellbutrin] Allergy Difficulty Verified 06/17/17 00:14 Breathing codeine Allergy Difficulty Verified 06/17/17 00:14 Breathing Opioids-Meperidine and Allergy Difficulty Verified 06/17/17 00:14 Related Breathing [Opioids-Meperidine & Related] All systems ED: reviewed and negative except as stated. Constitutional: Reports: as per HPI. Denies: fever Eyes: Reports: as per HPI ENT ED: Reports: as per HPI Cardiovascular: Reports: as per HPI. Denies: chest pain Respiratory: Reports: as per HPI. Denies: cough Gastrointestinal: Reports: as per HPI. Denies: abdominal pain, nausea, vomiting Genitourinary: Reports: as per HPI Musculoskeletal: Reports: as per HPI Integumentary: Reports: as per HPI Neurological: Reports: as per HPI Psychiatric: Reports: as per HPI Endocrine: Reports: as per HPI Hematological/Lymphatic: Reports: as per HPI Allergic/Immunologic: Reports: as per HPI Past Medical History - Past Medical History Medical history: Reports: arthritis, atrial fibrillation, CHF, COPD, diabetes, hyperlipidemia, hypertension, liver disease, renal disease Surgical history: Reports: orthopedic, other, pacemaker/AICD Psychiatric history: Reports: no psych history - Social History Smoking Status: Former smoker Smokeless Tobacco Status: No Alcohol use: Reports: none Drug use: Reports: none Physical Exam - General Limitations: no limitations General appearance: alert, in no apparent distress, obese, other (Sitting up in bed.) - Head Head exam: atraumatic, normocephalic, normal inspection - Eye Eye exam: Present: normal appearance - ENT ENT exam: normal exam - Neck Neck exam: Present: normal inspection - Chest Chest inspection: Present: normal inspection, symmetric chest wall rise - Respiratory Respiratory exam: Present: normal lung sounds bilaterally, other (Diminished by basilar) - Cardiovascular Cardiovascular exam: Present: regular rate. Absent: systolic murmur - Abdominal Exam Abdominal exam: Present: soft, Non-Tender - Male exam: Present: scrotal swelling - Extremities Exam Extremities exam: Present: normal inspection, pedal edema (2-3+ b/l with lower extremities wrapped) - Neurological Exam Neurological exam: Present: alert, oriented X3 - Skin Skin exam: Present: warm, dry, intact, normal color Course Course Narrative: Patient seen and examined. Patient is in no acute distress. Patient sitting up in bed. Patient does have a history of congestive heart failure. Patient's chest x-ray reveals pulmonary edema and findings consistent with heart failure. Patient's physical exam is consistent with heart failure. Patient will get diuresed, nitroglycerin paste and admission. Vital Signs Temperature 98.1 F 09/20/17 07:17 Pulse Rate 101 09/20/17 07:17 Respiratory Rate 20 09/20/17 07:17 Blood Pressure 131/82 09/20/17 07:17 O2 Sat by Pulse Oximetry 94 09/20/17 07:17 Temperature 97.3 F L 09/21/17 07:43 Pulse Rate 95 09/21/17 07:43 Respiratory Rate 18 09/21/17 07:43 Blood Pressure 119/71 09/21/17 07:43 O2 Sat by Pulse Oximetry 97 09/21/17 07:43 Oxygen Delivery Oxygen Delivery Nasal Cannula Shortness of Breath/Dyspnea - [facility] Narrative Medical decision making narrative: 71 male presents for dyspnea. Patient's records review does show that he had an echo performed in April of last year with an EF of 50-55%. Patient's records also reveal that he has had admission for this in the past. Patient appears to be fluid overloaded. Patient has pedal edema as well as scrotal edema with diminished breath sounds consistent with congestive heart failure. Patient denying any chest pain. Patient was treated with nitroglycerin as well as diuresis. Patient was repleted potassium as well as Lasix. Patient's scrotal edema is likely secondary to volume status. Discussed scrotal support. And positioning. Patient will be admitted to the hospital service for continued diuresis. Patient's labs reviewed show that he has chronic anemia. Patient does have acute kidney injury from prior lab evaluations. Patient will likely need monitoring of electrolytes and continue diuresis. Disposition will be admission. Patient agreed with plan of care. - Lab Data Lab results reviewed: Yes I reviewed the patient's lab results. Result diagrams: 09/20/17 07:39 09/21/17 04:37 Lab Results 09/20/17 09/20/17 09/20/17 Range/Units 07:39 07:39 07:39 WBC 8.6 (4.3-11.1) K/mcL RBC 3.74 L (4.19-5.50) M/mcL Hgb 9.2 L (12.9-16.9) g/dL Hct 31.4 L (37.5-50.1) % MCV 84.0 (83.0-100.0) fL MCH 24.6 L (28.0-33.3) pg MCHC 29.3 L (31.6-35.5) g/dL RDW 16.8 H (11.5-14.5) % Plt Count 447 H (140-400) K/mcL MPV 9.0 L (9.4-12.4) fL Immature Gran % 0.7 (0-4) % Seg Neutrophils % 80.9 % Lymphocytes % 5.0 % Monocytes % 11.1 % Eosinophils % 1.7 % Basophils % 0.6 % Neutrophils # 7.0 (1.6-8.9) K/mcL Lymphocytes # 0.4 L (0.6-4.6) K/mcL Monocytes # 1.0 (0.0-1.3) K/mcL Eosinophils # 0.2 (0.0-0.6) K/mcL Basophils # 0.1 (0.0-0.2) K/mcL Sodium 138 (136-145) mEq/L Potassium 3.2 L (3.5-5.1) mEq/L Chloride 99 (98-107) mEq/L Carbon Dioxide 28 (23-29) mEq/L BUN 27 H (8-23) mg/dL Creatinine 1.57 H (0.70-1.30) mg/dL Est GFR ( Amer) 53 L (> 60) Est GFR (Non-Af Amer) 44 L (> 60) BUN/Creatinine Ratio 17 (6-26) Glucose 205 H (70-105) mg/dL Calculated Osmolality 297 (280-300) Lactic Acid 1.8 (0.5-2.2) mmol/L Calcium 8.7 (8.6-10.3) mg/dL Troponin I (< 0.04) ng/mL B-Natriuretic Peptide (Less than 100) pg/mL 09/20/17 09/20/17 Range/Units 07:39 07:39 WBC (4.3-11.1) K/mcL RBC (4.19-5.50) M/mcL Hgb (12.9-16.9) g/dL Hct (37.5-50.1) % MCV (83.0-100.0) fL MCH (28.0-33.3) pg MCHC (31.6-35.5) g/dL RDW (11.5-14.5) % Plt Count (140-400) K/mcL MPV (9.4-12.4) fL Immature Gran % (0-4) % Seg Neutrophils % % Lymphocytes % % Monocytes % % Eosinophils % % Basophils % % Neutrophils # (1.6-8.9) K/mcL Lymphocytes # (0.6-4.6) K/mcL Monocytes # (0.0-1.3) K/mcL Eosinophils # (0.0-0.6) K/mcL Basophils # (0.0-0.2) K/mcL Sodium (136-145) mEq/L Potassium (3.5-5.1) mEq/L Chloride (98-107) mEq/L Carbon Dioxide (23-29) mEq/L BUN (8-23) mg/dL Creatinine (0.70-1.30) mg/dL Est GFR ( Amer) (> 60) Est GFR (Non-Af Amer) (> 60) BUN/Creatinine Ratio (6-26) Glucose (70-105) mg/dL Calculated Osmolality (280-300) Lactic Acid (0.5-2.2) mmol/L Calcium (8.6-10.3) mg/dL Troponin I < 0.03 (< 0.04) ng/mL B-Natriuretic Peptide 498 H (Less than 100) pg/mL - Radiology Data Radiology results reviewed: Yes I reviewed the patient's radiology results. Chest X-Ray 09/20/17 07:19 IMPRESSION: Stable appearance to the chest from prior exam 09/15/2017 with findings concerning for CHF with pulmonary vascular congestion, mild diffuse interstitial prominence as well as possible mild degree of pulmonary edema. There is also stable right pleural effusion with associated atelectasis or infiltrate. D/ / 09/20/2017 08:27:15 Alo Porras MD / estrella Interpreting Provider: Alo Porras MD - EKG Data EKG attestation: Yes I reviewed and interpreted this EKG. Rate: Reports: normal Rhythm: Reports: A.Fib [place]/QRS: Reports: right axis deviation, IVCD Q waves: Reports: I, aVL Interpretation: Reports: unchanged when compared to prior tracing (date), nonspecific ST-T wave changes S.B.A.R. - S.B.A.REmily Situation: Demographics Background: Presenting Complaint Assessment: Vital Signs, Course and respsone to treatment, Patient/Family Expectation Recommendation: Barrier(s) to disposition, Recommendation based on pending studies, treatments, or consults S.B.A.REmily Report Given to: Dr. Mariluz Larios Repor Time: 09:16 Attestation Statement - Attestation Attestation: I examined this patient and my medical decision-making was reviewed with the Resident Physician. I agree with the documented findings, disposition and treatment plan as described except to the extent set forth below. 71 yo M with SOB and also scrotal swelling. Pt had similar presentation within the past year which was secondary to CHF exacerbation. Pt reports inability to lay flat, increased DELVALLE. On exam, pt has significant swelling of the bilateral scrotum which pt states has occurred intermittently over the past year. Swelling present for the past 2-3 days prior to arrival. On previous eval, swelling was secondary to fluid overload after eval by urology. Pt given diuretic and admitted to hospital for further care.
[2017-09-20] MEDS ORDERED: Furosemide 40 MG/4 ML VIAL IVP ONE (08:40)
[2017-09-20] MEDS ORDERED: Acetaminophen 325 MG TABLET PO PRN (10:13)
[2017-09-20] MEDS ORDERED: Ipratropium/Albuterol Neb 3 ML IH PRN (10:13)
[2017-09-20] MEDS ORDERED: *HR* OxyCODONE Immed Rel 5 MG TABLET PO PRN (10:17)
[2017-09-20] MEDS ORDERED: Dextrose Gel 15 GM/37.5 ML TUBE PO PRN ×2 (10:17)
[2017-09-20] MEDS ORDERED: *HR* Morphine 2 MG/ML SYRINGE IVP PRN (10:17)
[2017-09-20] MEDS ORDERED: Ondansetron 4 MG/2 ML VIAL IVP PRN (10:17)
[2017-09-20] MEDS ORDERED: *HR* Dextrose 50 % in Water (Syg) 50 ML SYRINGE IVP PRN (10:17)
[2017-09-20] MEDS ORDERED: Naloxone 0.4 MG/ML INJ IVP PRN (10:17)
[2017-09-20] MEDS ORDERED: D5% in Water 1,000 ML IVC PRN (10:17)
--- NOTE | 2017-09-20 10:25 | Internal Med History&Physical ---
Date of Encounter: 09/20/17 Time of Encounter: 10:23 Assessment and Plan (1) Congestive heart failure Current visit: Yes Status: Acute Acute on chronic hypoxic respiratory failure secondary to acute pulmonary edema due to acute diastolic CHF exacerbation/right stable pleural effusion Fluid restriction Consider paracentesis Start Bumex 1 mg IV 3 times a day, strict I's and O's and daily weight Omeprazole for GI prophylaxis and Xarelto for DVT prophylaxis. The patient will be admitted for observation. Full code. Time spent on this admission 40 minutes. High risk due to respiratory failure and prior history of intubation Qualifiers: Congestive heart failure type: diastolic Congestive heart failure chronicity: acute on chronic Qualified Code(s): I50.33 - Acute on chronic diastolic (congestive) heart failure (2) Pulmonary edema Current visit: No Status: Acute Qualifiers: Chronicity: acute Qualified Code(s): J81.0 - Acute pulmonary edema (3) Acute and chronic respiratory failure Current visit: No Status: Resolved Qualifiers: Respiratory failure complication: hypoxia Qualified Code(s): J96.21 - Acute and chronic respiratory failure with hypoxia (4) COPD (chronic obstructive pulmonary disease) Current visit: No Status: Chronic No exacerbation, Qualifiers: COPD type: COPD with acute exacerbation Qualified Code(s): J44.1 - Chronic obstructive pulmonary disease with (acute) exacerbation (5) Afib Current visit: No Status: Chronic Resume Xarelto, resume Cardizem in the morning Qualifiers: Atrial fibrillation type: paroxysmal Qualified Code(s): I48.0 - Paroxysmal atrial fibrillation (6) Hypokalemia Current visit: No Status: Resolved Repeat as needed (7) Type 2 diabetes mellitus Current visit: No Status: Chronic Continue insulin Qualifiers: Diabetes mellitus complication status: with hyperglycemia Diabetes mellitus alf insulin use: with intermission coordinator use Qualified Code(s): E11.65 - Type 2 diabetes mellitus with hyperglycemia; Z79.4 - [facility] (current) use of insulin; Z79.4 - 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 Diaz is a 71 year old male with a past medical history of diastolic CHF, severe scrotal swelling discharged from this hospital on 08/31/2017 when he was treated for acute respiratory failure and was intubated. Patient was discharged home on torsemide 40 mg twice a day, has used Lasix unsuccessfully in the past and has been admitted multiple times. He became more short of breath yesterday, complaining of a dry cough. Creatinine is 1.57 slightly increased from 1.24. Hemoglobin is 9.2 platelets 447 glucose 205 BNP 498, heart rate 106. Chest x-ray shows CHF with vascular congestion and acute pulmonary edema with a stable right pleural effusion. His scrotal swelling has become worse. Denies any other complaints. The patient says that he has been drinking lots of fluids on and off, does not know whether he is on Xarelto are not at the moment. Past Med Surg Social Fam HX - Past Medical History Medical history: arthritis, atrial fibrillation (Possibly an Xarelto, diltiazem) , CHF (Diastolic), COPD (Oxygen dependent with chronic respiratory failure), diabetes (Insulin-dependent), hyperlipidemia, hypertension, liver disease, renal disease (Chronic kidney disease stage III), other (Paroxysmal A. fib, osteoarthritis, cirrhosis, ascites, severe chronic scrotal edema, iron deficiency anemia) Psychiatric history: no psych history - Past Surgical History Surgical History: orthopedic, other, pacemaker/AICD (Pacemaker), other ( Echocardiogram from April 2017 shows an ejection fraction from 50-55%, history of paracenteses) - Social History Smoking Status: Former smoker Smokeless Tobacco Status: No Alcohol use: none Drug use: none - Family History Father Hx Family Cardiac Disorders: Yes (Triple Bypass) Hx Family Endocrine Disorder: Yes (DM) Mother Family Member Ethnicity: Non- Living Status: - Additional Family History Additional family history: Father with CABG and diabetes Internal Medicine - H&P: Meds Aspirin 81 mg PO DAILY 04/28/15 [History] Atorvastatin [Lipitor] 40 mg PO HS 04/28/15 [History] Ferrous Sulfate 325 mg PO BID 04/28/15 [History] Albuterol Sulfate [Proair Hfa] 2 puff IH Q4H PRN 01/25/17 [History] Metoprolol Succinate 200 mg PO DAILY 01/25/17 [History] Oxygen 3 l NS CONT 02/03/17 [History] Insulin LISPRO [HumaLOG] 0 units SQ TIDWM 04/06/17 [History] Spironolactone [Aldactone] 12.5 mg PO DAILY 06/17/17 [History] Ipratropium/Albuterol Neb [Duoneb] 3 ml IH Q4HR PRN 07/01/17 [History] Lactulose 10 gm PO DAILY 08/30/17 [History] Pantoprazole Sodium [Protonix] 40 mg PO DAILY 08/30/17 [History] Sennosides [Senokot] 8.6 mg PO DAILY 08/30/17 [History] SitaGLIPtin [Januvia] 100 mg PO DAILY 08/30/17 [History] Torsemide [Demadex] 40 mg PO BID 08/30/17 [History] Diltiazem CD (24hr) [Cardizem CD] 120 mg PO DAILY 09/20/17 [History] Insulin DETEMIR [Levemir] 35 unit SQ BID 09/20/17 [History] 3 Allergy/AdvReac Type Severity Reaction Status Date / Time bupropion [From Wellbutrin] Allergy Difficulty Verified 06/17/17 00:14 Breathing codeine Allergy Difficulty Verified 06/17/17 00:14 Breathing Opioids-Meperidine and Allergy Difficulty Verified 06/17/17 00:14 Related Breathing [Opioids-Meperidine & Related] All Systems PM: A 10-system review of systems was performed and is negative for pertinent findings except as documented above in the HPI. Review of systems: Denies any chest pain or fevers, other systems out of the 10 reviewed were negative - Constitutional Vitals: Temp Pulse Resp BP Pulse Ox 98.1 F 106 14 120/67 98 09/20/17 07:17 09/20/17 08:50 09/20/17 08:50 09/20/17 08:50 09/20/17 08:50 General appearance: Present: A&O X 3, morbidly obese - Head Head exam: Present: atraumatic, normocephalic - Eye Eye exam: Present: PERRL, conjuntiva pink, sclera anicteric Pupils: Present: PERRL - Neck Neck exam general surgery: Present: supple, trachea midline. Absent: lymphadenopathy - Respiratory Respiratory exam: Present: CTAB, rales. Absent: accessory muscle use, rhonchi, wheezes Additional comments: Blunted breath sounds in the right base, diffuse crackles - Cardiovascular Cardiovascular exam: Present: RRR, +S1, +S2. Absent: diastolic murmur, gallop, rubs, systolic murmur - GI/Abdominal GI/Abdominal exam: Present: distended, normal bowel sounds, soft, no peritoneal signs. Absent: tenderness Additional comments: Ascites noticed - Extremities Exam Extremities exam: Present: pedal edema (+3 pitting edema in both lower extremities, severe scrotal edema with a small laceration on the left side of the scrotum), warm, radial pulses palpable and symmetrical. Absent: calf tenderness, cyanotic - Neurological Exam Neurological exam: Present: CN II-XII intact, oriented X3, no focal deficits. Absent: pronater drift, facial droop, speech deficit - Skin Skin exam: Present: dry, intact Internal Med - H&P Results - Labs CBC & Chem 7: 09/20/17 07:39 09/20/17 07:39 Labs: Short CBC 09/20/17 Range/Units 07:39 WBC 8.6 (4.3-11.1) K/mcL Hgb 9.2 L (12.9-16.9) g/dL Hct 31.4 L (37.5-50.1) % Plt Count 447 H (140-400) K/mcL Neutrophils # 7.0 (1.6-8.9) K/mcL BMP 09/20/17 07:39 Sodium 138 Potassium 3.2 L Chloride 99 Carbon Dioxide 28 BUN 27 H Creatinine 1.57 H Glucose 205 H Calcium 8.7 Cardiac Enzymes 09/20/17 Range/Units 07:39 Troponin I < 0.03 (< 0.04) ng/mL - Impressions ITS Impressions Chest X-Ray 09/20/17 07:19 IMPRESSION: Stable appearance to the chest from prior exam 09/15/2017 with findings concerning for CHF with pulmonary vascular congestion, mild diffuse interstitial prominence as well as possible mild degree of pulmonary edema. There is also stable right pleural effusion with associated atelectasis or infiltrate. D/ / 09/20/2017 08:27:15 Alo Porras MD / estrella Interpreting Provider: Alo Porras MD
--- NOTE | 2017-09-20 16:57 | Electrocardiograph Report ---
[email or web address] Test Date: 2017-09-20 Pat Name: Jaime Diaz Department: 102 Room: 3B43 Gender: M Infection Control Manager: : [id number] Requested By: Damian Linder Order Number: [id number] Reading MD: Vitaly Lorenzana DO Measurements Intervals [place] Rate: 92 P: NM: 0 QRS: 122 QRSD: 189 T: -38 QT: 400 QTc: 450 Interpretive Statements ATRIAL FIBRILLATION INTRAVENTRICULAR CONDUCTION DELAY [130+ ms QRS DURATION] RIGHT VENTRICULAR HYPERTROPHY [SOME/ALL OF: PROMINENT R IN V1, LATE TRANSITION, RAD, TRACIE, SSS] Electronically Signed On 09-20-2017 16:55:35 EST by Vitaly Lorenzana DO
[2017-09-20] MEDS: Insulin LISPRO 300 UNITS/3 ML VIAL SQ SCH ×3 (17:25→21:05)
[2017-09-20] MEDS: Bumetanide 1 MG/4 ML VIAL IVP SCH ×2 (18:03→21:03)
[2017-09-20] MEDS ORDERED: NON-FORMULARY MEDICATION 1 EACH EACH (Insulin Detemir 35 UNIT) SQ SCH (21:00)
[2017-09-20] MEDS: Insulin DETEMIR 100 UNIT/ML X5UNITS SQ SCH (21:04)
[2017-09-21 06:08] LABS: Calcium 8.4 mg/dL (8.6-10.3); Magnesium 2.2 mg/dL (1.6-2.6); Potassium 3.3 mEq/L (3.5-5.1)
[2017-09-21] MEDS: *HR* Rivaroxaban 10 MG TABLET PO SCH (06:46)
[2017-09-21] MEDS: Insulin LISPRO 300 UNITS/3 ML VIAL SQ SCH ×4 (08:11→20:57)
--- NOTE | 2017-09-21 08:14 | Internal Med Progress Note ---
Date of Encounter: 09/21/17 Time of Encounter: 08:12 - Assessment and plan (1) Congestive heart failure Current Visit: Yes Status: Acute Assessment and plan: Acute on chronic hypoxic respiratory failure secondary to acute pulmonary edema due to acute diastolic CHF exacerbation/right stable pleural effusion Fluid restriction COnsult IR for paracentesis Continue Bumex 1 mg IV 3 times a day, strict I's and O's and daily weight Qualifiers: Congestive heart failure type: diastolic Congestive heart failure chronicity: acute on chronic Qualified Code(s): I50.33 - Acute on chronic diastolic (congestive) heart failure (2) Pulmonary edema Current Visit: No Status: Acute Qualifiers: Chronicity: acute Qualified Code(s): J81.0 - Acute pulmonary edema (3) Acute and chronic respiratory failure Current Visit: No Status: Resolved Qualifiers: Respiratory failure complication: hypoxia Qualified Code(s): J96.21 - Acute and chronic respiratory failure with hypoxia (4) COPD (chronic obstructive pulmonary disease) Current Visit: No Status: Chronic Assessment and plan: no exacerbation Qualifiers: COPD type: COPD with acute exacerbation Qualified Code(s): J44.1 - Chronic obstructive pulmonary disease with (acute) exacerbation (5) Afib Current Visit: No Status: Chronic Assessment and plan: Xarelto, Cardizem , Toprol Qualifiers: Atrial fibrillation type: paroxysmal Qualified Code(s): I48.0 - Paroxysmal atrial fibrillation (6) Hypokalemia Current Visit: No Status: Resolved (7) Type 2 diabetes mellitus Current Visit: No Status: Chronic Assessment and plan: Metamucil 30 units twice a day, continue insulin sliding scale Qualifiers: Diabetes mellitus complication status: with hyperglycemia Diabetes mellitus fci insulin use: with fci use Qualified Code(s): E11.65 - Type 2 diabetes mellitus with hyperglycemia; Z79.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 Complains of abdominal distention, no nausea or vomiting. No headaches - Constitutional Vitals: Temp Pulse Resp BP Pulse Ox 97.3 F L 95 18 119/71 97 09/21/17 07:43 09/21/17 07:43 09/21/17 07:43 09/21/17 07:43 09/21/17 07:43 General appearance: Present: A&O X 3, morbidly obese Exam: - Head Head exam: Present: atraumatic, normocephalic - Eye Eye exam: Present: PERRL, conjuntiva pink, sclera anicteric Pupils: Present: PERRL - Neck Neck exam general surgery: Present: supple, trachea midline. Absent: lymphadenopathy - Respiratory Respiratory exam: Present: CTAB, rales. Absent: accessory muscle use, rhonchi, wheezes Additional comments: Blunted breath sounds in the right base, diffuse crackles - Cardiovascular Cardiovascular exam: Present: RRR, +S1, +S2. Absent: diastolic murmur, gallop, rubs, systolic murmur - GI/Abdominal GI/Abdominal exam: Present: distended, normal bowel sounds, soft, no peritoneal signs. Absent: tenderness Additional comments: Ascites noticed - Extremities Exam Extremities exam: Present: pedal edema (+3 pitting edema in both lower extremities, severe scrotal edema with a small laceration on the left side of the scrotum), warm, radial pulses palpable and symmetrical. Absent: calf tenderness, cyanotic - Neurological Exam Neurological exam: Present: CN II-XII intact, oriented X3, no focal deficits. Absent: pronater drift, facial droop, speech deficit - Skin Skin exam: Present: dry, intact Internal Medicine: Result - Labs CBC & Chem 7: 09/20/17 07:39 09/21/17 04:37 Labs: BMP 09/21/17 04:37 Sodium 139 Potassium 3.3 L Chloride 104 Carbon Dioxide 30 H BUN 26 H Creatinine 1.42 H Glucose 117 H Calcium 8.4 L Consult Discharge Plan - Plan Referrals: Damian Seymour MD [Primary Care Provider] -
[2017-09-21] MEDS: Spironolactone 25 MG TABLET PO SCH (09:42)
[2017-09-21] MEDS: Aspirin 81 MG TAB.CHEW PO SCH (09:43)
[2017-09-21] MEDS: Insulin DETEMIR 100 UNIT/ML X5UNITS SQ SCH ×2 (09:43→20:56)
[2017-09-21] MEDS: Bumetanide 1 MG/4 ML VIAL IVP SCH ×3 (09:43→20:52)
[2017-09-21] MEDS: Diltiazem CD (24hr) 120 MG CAPSULE PO SCH (09:43)
[2017-09-21] MEDS: Metoprolol XL (24 HR) Succ 50 MG TAB.ER.24H PO SCH (09:43)
--- NOTE | 2017-09-21 10:48 | IR Procedure Note ---
Date of procedure: 09/21/17 Consent Obtained: Verbal consent Timeout: Correct patient and procedure verified, Correct site verified, Time out performed, Skin prep completed Local anesthetic: Lidocaine 1% Indications: Ascites Procedure Performed: Paracentesis Was there an rehabilitation assistant present: Yes Reimbursement Auditor: eJnnyfer Gann Site/Technique: U/S guided paracentesis Results/Findings: Ascites Estimated blood loss (cc): 2 Complications: None; Tolerated procedure well Post Procedure Treatment Plan: Continue inpatient care Specimen: Serous ascites
[2017-09-21] MEDS: Silvasorb 44.4 ML TUBE TP SCH (16:05)
[2017-09-21 18:40] LABS: RBC,Peritoneal Fluid 0.005 M/mcL
[2017-09-21 18:41] LABS: Appearance of Peritoneal Fl HAZY (Clear)
[2017-09-21 18:43] LABS: Amylase,Peritoneal Fluid 11 Units/L (No Ref Range); Glucose,Peritoneal Fluid 146 mg/dL (No Ref Range); LDH,Peritoneal Fluid 110 Units/L (No Ref Range); Total Protein,Peritoneal Fluid 4.2 g/dL (No Ref Range)
[2017-09-21 19:18] LABS: ABG Base Excess 4 mEq/L (-2 to 3); ABG HCO3 29 mEq/L (21-27); ABG Oxygen Saturation 96 % (95-98); ABG PCO2 47 mmHg (35-45); ABG PO2 84 mmHg (85-104); ABG TCO2 30 mEq/L (20-26)
[2017-09-22] MEDS: *HR* Rivaroxaban 10 MG TABLET PO SCH (06:18)
[2017-09-22] MEDS: Bumetanide 1 MG/4 ML VIAL IVP SCH ×3 (07:59→21:00)
[2017-09-22] MEDS: Insulin LISPRO 300 UNITS/3 ML VIAL SQ SCH ×4 (07:59→21:09)
[2017-09-22] MEDS: Spironolactone 25 MG TABLET PO SCH (07:59)
[2017-09-22] MEDS: Diltiazem CD (24hr) 120 MG CAPSULE PO SCH (08:00)
[2017-09-22] MEDS: Metoprolol XL (24 HR) Succ 50 MG TAB.ER.24H PO SCH (08:00)
[2017-09-22] MEDS: Aspirin 81 MG TAB.CHEW PO SCH (08:00)
[2017-09-22] MEDS: Silvasorb 44.4 ML TUBE TP SCH (08:02)
[2017-09-22] MEDS: Insulin DETEMIR 100 UNIT/ML X5UNITS SQ SCH ×2 (08:02→21:00)
--- NOTE | 2017-09-22 09:39 | Internal Med Progress Note ---
Date of Encounter: 09/22/17 Time of Encounter: 09:37 - Assessment and plan (1) Congestive heart failure Current Visit: Yes Status: Acute Assessment and plan: Acute on chronic hypoxic respiratory failure secondary to acute pulmonary edema due to acute diastolic CHF exacerbation/right stable pleural effusion Fluid restriction COnsulted IR for paracentesis, 6 L were removed, no evidence of spontaneous bacterial peritonitis Peritoneal fluid was sent for cytology, report is pending Continue Bumex 1 mg IV 3 times a day, strict I's and O's and daily weight Qualifiers: Congestive heart failure type: diastolic Congestive heart failure chronicity: acute on chronic Qualified Code(s): I50.33 - Acute on chronic diastolic (congestive) heart failure (2) Pulmonary edema Current Visit: No Status: Acute Qualifiers: Chronicity: acute Qualified Code(s): J81.0 - Acute pulmonary edema (3) Acute and chronic respiratory failure Current Visit: No Status: Resolved Qualifiers: Respiratory failure complication: hypoxia Qualified Code(s): J96.21 - Acute and chronic respiratory failure with hypoxia (4) COPD (chronic obstructive pulmonary disease) Current Visit: No Status: Chronic Assessment and plan: no exacerbation Qualifiers: COPD type: COPD with acute exacerbation Qualified Code(s): J44.1 - Chronic obstructive pulmonary disease with (acute) exacerbation (5) Afib Current Visit: No Status: Chronic Assessment and plan: Rhiannon Matos Toprol Qualifiers: Atrial fibrillation type: paroxysmal Qualified Code(s): I48.0 - Paroxysmal atrial fibrillation (6) Hypokalemia Current Visit: No Status: Resolved (7) Type 2 diabetes mellitus Current Visit: No Status: Chronic Assessment and plan: Metamucil 30 units twice a day, continue insulin sliding scale Qualifiers: Diabetes mellitus complication status: with hyperglycemia Diabetes mellitus snf insulin use: with petroleum terminal plant operator use Qualified Code(s): E11.65 - Type 2 diabetes mellitus with hyperglycemia; Z79.4 - superintendent container terminal (current) use of insulin; Z79.4 - [facility] (current) use of insulin; Z79.4 - superintendent container terminal ( current) use of insulin; Z79.4 - [facility] (current) use of insulin (8) Scrotal edema Current Visit: No Status: Acute (9) Ascites Current Visit: No Status: Resolved Qualifiers: Ascites type: other type Qualified Code(s): R18.8 - Other ascites - Subjective Interval history: Feeling slightly better, less short of breath, less scrotal edema, normal fevers , no chills, no chest pain. Complains of less abdominal distention, no nausea or vomiting. No headaches - Constitutional Vitals: Temp Pulse Resp BP Pulse Ox 97.5 F L 93 18 111/74 99 09/22/17 07:06 09/22/17 07:06 09/22/17 07:06 09/22/17 07:06 09/22/17 07:06 General appearance: Present: A&O X 3, morbidly obese Exam: - Head Head exam: Present: atraumatic, normocephalic - Eye Eye exam: Present: PERRL, conjuntiva pink, sclera anicteric Pupils: Present: PERRL - Neck Neck exam general surgery: Present: supple, trachea midline. Absent: lymphadenopathy - Respiratory Respiratory exam: Present: CTAB, rales. Absent: accessory muscle use, rhonchi, wheezes Additional comments: Blunted breath sounds in the right base, fine diffuse crackles improving - Cardiovascular Cardiovascular exam: Present: RRR, +S1, +S2. Absent: diastolic murmur, gallop, rubs, systolic murmur - GI/Abdominal GI/Abdominal exam: Present: distended, normal bowel sounds, soft, no peritoneal signs. Absent: tenderness Additional comments: Ascites noticed - Extremities Exam Extremities exam: Present: pedal edema (+3 pitting edema in both lower extremities, severe scrotal edema with a small laceration on the left side of the scrotum), warm, radial pulses palpable and symmetrical. Absent: calf tenderness, cyanotic - Neurological Exam Neurological exam: Present: CN II-XII intact, oriented X3, no focal deficits. Absent: pronater drift, facial droop, speech deficit - Skin Skin exam: Present: dry, intact Internal Medicine: Result - Labs CBC & Chem 7: 09/20/17 07:39 09/21/17 04:37 - ABG Interpretation ABG results: ABG ABG pH 7.40 pH Units (7.32-7.45) 09/21/17 19:14 ABG pCO2 47 mmHg (35-45) H 09/21/17 19:14 ABG pO2 84 mmHg (85-104) L 09/21/17 19:14 ABG O2 Saturation 96 % (95-98) 09/21/17 19:14 Consult Discharge Plan - Plan Referrals: Damian Seymour MD [Primary Care Provider] - 09/29/17 3:45 pm
[2017-09-23 06:31] LABS: Calcium 8.5 mg/dL (8.6-10.3); Potassium 3.9 mEq/L (3.5-5.1)
[2017-09-23] MEDS: Insulin LISPRO 300 UNITS/3 ML VIAL SQ SCH ×2 (07:49→11:33)
[2017-09-23] MEDS: Spironolactone 25 MG TABLET PO SCH (07:49)
[2017-09-23] MEDS: Metoprolol XL (24 HR) Succ 50 MG TAB.ER.24H PO SCH (07:50)
[2017-09-23] MEDS: Aspirin 81 MG TAB.CHEW PO SCH (07:50)
[2017-09-23] MEDS: Diltiazem CD (24hr) 120 MG CAPSULE PO SCH (07:50)
[2017-09-23] MEDS: Silvasorb 44.4 ML TUBE TP SCH (07:51)
[2017-09-23] MEDS: Insulin DETEMIR 100 UNIT/ML X5UNITS SQ SCH (08:19)
[2017-09-23] MEDS: Bumetanide 1 MG TABLET PO SCH ×2 (08:21→15:19)
--- NOTE | 2017-09-23 08:36 | Discharge Summary ---
Date of Encounter: 09/23/17 Time of Encounter: 08:33 - Discharge Diagnosis (1) Congestive heart failure Priority: Primary Status: Acute Comments: Acute on chronic hypoxic respiratory failure secondary to acute pulmonary edema due to acute diastolic CHF exacerbation/right stable pleural effusion Severe scrotal edema Qualifiers: Congestive heart failure type: diastolic Congestive heart failure chronicity: acute on chronic Qualified Code(s): I50.33 - Acute on chronic diastolic (congestive) heart failure (2) Pulmonary edema Priority: Primary Status: Acute Qualifiers: Chronicity: acute Qualified Code(s): J81.0 - Acute pulmonary edema (3) Acute and chronic respiratory failure Priority: Primary Status: Resolved Qualifiers: Respiratory failure complication: hypoxia Qualified Code(s): J96.21 - Acute and chronic respiratory failure with hypoxia (4) COPD (chronic obstructive pulmonary disease) Priority: Secondary Status: Chronic Qualifiers: COPD type: COPD with acute exacerbation Qualified Code(s): J44.1 - Chronic obstructive pulmonary disease with (acute) exacerbation (5) Afib Priority: Secondary Status: Chronic Comments: Will not be discharged on anticoagulation, Xarelto will be discontinued due to prior history of severe GI bleed Qualifiers: Atrial fibrillation type: paroxysmal Qualified Code(s): I48.0 - Paroxysmal atrial fibrillation (6) Hypokalemia Priority: Secondary Status: Resolved (7) Type 2 diabetes mellitus Priority: Secondary Status: Chronic Qualifiers: Diabetes mellitus complication status: with hyperglycemia Diabetes mellitus senior living insulin use: with eastern philosophy professor use Qualified Code(s): E11.65 - Type 2 diabetes mellitus with hyperglycemia; Z79.4 - FPC (current) use of insulin; Z79.4 - industrial relations analyst (current) use of insulin; Z79.4 - industrial relations analyst ( current) use of insulin; Z79.4 - industrial relations analyst (current) use of insulin (8) Scrotal edema Priority: Primary Status: Acute (9) Ascites Priority: Primary Status: Resolved Qualifiers: Ascites type: other type Qualified Code(s): R18.8 - Other ascites - Discharge Medications Prescriptions: OxyCODONE Immed Rel [Roxicodone 5 MG] 5 mg PO Q6HR PRN #20 tablet PRN Reason: Moderate Pain (4-6) Bumetanide [Bumex] 1 mg PO TID #90 tablet Potassium Chloride 20 meq PO DAILY 30 Days tab.er.prt Home Medications: Aspirin 81 mg PO DAILY 04/28/15 [History] Atorvastatin [Lipitor] 40 mg PO HS 04/28/15 [History] Ferrous Sulfate 325 mg PO BID 04/28/15 [History] Albuterol Sulfate [Proair Hfa] 2 puff IH Q4H PRN 01/25/17 [History] Metoprolol Succinate 200 mg PO DAILY 01/25/17 [History] Oxygen 3 l NS CONT 02/03/17 [History] Insulin LISPRO [HumaLOG] 0 units SQ TIDWM 04/06/17 [History] Spironolactone [Aldactone] 12.5 mg PO DAILY 06/17/17 [History] Ipratropium/Albuterol Neb [Duoneb] 3 ml IH Q4HR PRN 07/01/17 [History] Lactulose 10 gm PO DAILY 08/30/17 [History] Pantoprazole Sodium [Protonix] 40 mg PO DAILY 08/30/17 [History] Sennosides [Senokot] 8.6 mg PO DAILY 08/30/17 [History] SitaGLIPtin [Januvia] 100 mg PO DAILY 08/30/17 [History] Diltiazem CD (24hr) [Cardizem CD] 120 mg PO DAILY 09/20/17 [History] Insulin DETEMIR [Levemir] 35 unit SQ BID 09/20/17 [History] Bumetanide [Bumex] 1 mg PO TID #90 tablet 09/23/17 [Rx] OxyCODONE Immed Rel [Roxicodone 5 MG] 5 mg PO Q6HR PRN #20 tablet 09/23/17 [Rx] Potassium Chloride 20 meq PO DAILY 30 Days tab.er.prt 09/23/17 [Rx] Allergies/Adverse Reactions: 3 Allergy/AdvReac Type Severity Reaction Status Date / Time bupropion [From Wellbutrin] Allergy Difficulty Verified 06/17/17 00:14 Breathing codeine Allergy Difficulty Verified 06/17/17 00:14 Breathing Opioids-Meperidine and Allergy Difficulty Verified 06/17/17 00:14 Related Breathing [Opioids-Meperidine & Related] Date of admission: 09/21/17 18:59 Primary care physician: Damian Seymour, Consults: 09/22/17 09:36 Consult to Occupational Therapy [CONS] Routine Comment: Evaluate, develop and implement POC Reason for Consult: eval Consult to Physical Therapy [CONS] Routine Comment: Evaluate, develop and implement POC Reason for Consult: eval - Patient Status Disposition: Transfer SNF Condition: Fair Overall status at discharge: patient is progressing back to baseline - Discharge Instructions Follow Up With: Damian Seymour MD [Primary Care Provider] - 09/29/17 3:45 pm Additional Instructions: Continue Bumex 1 mg 3 times a day, potassium 20 meq Daily. Stop Xarelto due to history of GI bleed. Follow-up with primary care physician after being discharged from rehabilitation, may require an additional paracenteses in the near future - Diet and Activity Activity: increase activity as tolerated Diet: low fat, low cholesterol, low salt diet Hospital course: Mr. Diaz is a 71 year old male with a past medical history of rthritis, atrial fibrillation (not on Xarelto anymore due to severe GI bleed in the past, diltiazem), CHF (Diastolic), COPD (Oxygen dependent with chronic respiratory failure), diabetes (Insulin-dependent), hyperlipidemia, hypertension, liver disease, renal disease (Chronic kidney disease stage III), other (Paroxysmal A. fib, osteoarthritis, cirrhosis, ascites, severe chronic scrotal edema, iron deficiency anemia) severe scrotal swelling discharged from this hospital on when he was treated for acute respiratory failure and was intubated. Patient was discharged home on torsemide 40 mg twice a day, has used Lasix unsuccessfully in the past and has been admitted multiple times. He became more short of breath , complaining of a dry cough. Creatinine was 1.57 slightly increased from 1.24. Hemoglobin is 9.2 platelets 447 glucose 205 BNP 498, heart rate 106. Chest x-ray showed CHF with vascular congestion and acute pulmonary edema with a stable right pleural effusion. His scrotal swelling has become worse. Denies any other complaints. COnsulted IR for paracentesis, 6 L were removed, no evidence of spontaneous bacterial peritonitis Peritoneal fluid was sent for cytology, report is pending stage 2 pressure ulcer right gluteal fold, and stage 2 pressure ulcer left gluteal fold. The patient's condition has improved on Bumex, he was given the option to stay another day but prefers to be discharged on the moment. He has refused going to an ECF in the past but at the moment he is in agreement with it - Time Spent with Patient Total time spent providing and/or coordinating discharge services: Greater than 30 minutes (40 min) - Constitutional Vitals: Temp Pulse Resp BP Pulse Ox 97.5 F L 74 16 101/58 96 09/23/17 07:41 09/23/17 07:41 09/23/17 07:41 09/23/17 07:41 09/23/17 07:41 General appearance: Present: A&O X 3, morbidly obese Exam: - Head Head exam: Present: atraumatic, normocephalic - Eye Eye exam: Present: PERRL, conjuntiva pink, sclera anicteric Pupils: Present: PERRL - Neck Neck exam general surgery: Present: supple, trachea midline. Absent: lymphadenopathy - Respiratory Respiratory exam: Present: CTAB, rales. Absent: accessory muscle use, rhonchi, wheezes Additional comments: Blunted breath sounds in the right base, fine diffuse crackles improving - Cardiovascular Cardiovascular exam: Present: RRR, +S1, +S2. Absent: diastolic murmur, gallop, rubs, systolic murmur - GI/Abdominal GI/Abdominal exam: Present: distended, normal bowel sounds, soft, no peritoneal signs. Absent: tenderness Additional comments: Ascites noticed - Extremities Exam Extremities exam: Present: pedal edema (+3 pitting edema in both lower extremities slightly improved, severe scrotal edema with a small laceration on the left side of the scrotum), warm, radial pulses palpable and symmetrical. Absent: calf tenderness, cyanotic - Neurological Exam Neurological exam: Present: CN II-XII intact, oriented X3, no focal deficits. Absent: pronater drift, facial droop, speech deficit stage 2 pressure ulcer right gluteal fold, and stage 2 pressure ulcer left gluteal fold.
--- NOTE | 2017-09-23 08:44 | Physician Discharge Referral ---
ExtendedCare Referral Info Provider in Charge after Transfer: PCP Institutional Level of Care: Skilled - Diagnosis (1) Congestive heart failure Status: Acute (2) Pulmonary edema Status: Acute (3) Acute and chronic respiratory failure Status: Resolved (4) COPD (chronic obstructive pulmonary disease) Status: Chronic (5) Afib Status: Chronic (6) Hypokalemia Status: Resolved (7) Type 2 diabetes mellitus Status: Chronic (8) Scrotal edema Status: Acute (9) Ascites Status: Resolved - Transfer Medications Prescriptions: OxyCODONE Immed Rel [Roxicodone 5 MG] 5 mg PO Q6HR PRN #20 tablet PRN Reason: Moderate Pain (4-6) Bumetanide [Bumex] 1 mg PO TID #90 tablet Potassium Chloride 20 meq PO DAILY 30 Days tab.er.prt Home Medications: Aspirin 81 mg PO DAILY 04/28/15 [History] Atorvastatin [Lipitor] 40 mg PO HS 04/28/15 [History] Ferrous Sulfate 325 mg PO BID 04/28/15 [History] Albuterol Sulfate [Proair Hfa] 2 puff IH Q4H PRN 01/25/17 [History] Metoprolol Succinate 200 mg PO DAILY 01/25/17 [History] Oxygen 3 l NS CONT 02/03/17 [History] Insulin LISPRO [HumaLOG] 0 units SQ TIDWM 04/06/17 [History] Spironolactone [Aldactone] 12.5 mg PO DAILY 06/17/17 [History] Ipratropium/Albuterol Neb [Duoneb] 3 ml IH Q4HR PRN 07/01/17 [History] Lactulose 10 gm PO DAILY 08/30/17 [History] Pantoprazole Sodium [Protonix] 40 mg PO DAILY 08/30/17 [History] Sennosides [Senokot] 8.6 mg PO DAILY 08/30/17 [History] SitaGLIPtin [Januvia] 100 mg PO DAILY 08/30/17 [History] Diltiazem CD (24hr) [Cardizem CD] 120 mg PO DAILY 09/20/17 [History] Insulin DETEMIR [Levemir] 35 unit SQ BID 09/20/17 [History] Bumetanide [Bumex] 1 mg PO TID #90 tablet 01/12/18 [Rx] OxyCODONE Immed Rel [Roxicodone 5 MG] 5 mg PO Q6HR PRN #20 tablet 09/23/17 [Rx] Potassium Chloride 20 meq PO DAILY 30 Days tab.er.prt 09/23/17 [Rx] Allergies/Adverse Reactions: 3 Allergy/AdvReac Type Severity Reaction Status Date / Time bupropion [From Wellbutrin] Allergy Difficulty Verified 06/17/17 00:14 Breathing codeine Allergy Difficulty Verified 06/17/17 00:14 Breathing Opioids-Meperidine and Allergy Difficulty Verified 06/17/17 00:14 Related Breathing [Opioids-Meperidine & Related] - Respiratory Orders Smoking Cessation: Smoking cessation has been advised. For more information, call the [place] Tobacco Quit Line at 1-000-YZRP-NOW. - Advance Directives Code Status: Full Code - Rehabiliation Orders Other: Continue Bumex 1 mg 3 times a day, potassium 20 meq Daily. Stop Xarelto due to history of GI bleed. Follow-up with primary care physician after being discharged from rehabilitation, may require an additional paracenteses in the near future. Fluid restriction of 1500 mL a day - Diet Orders No Added Salt (LAMINE) CERTIFICATION: I certify that the transfer of the above named patient to an Extended Care Facility is necessary for the continuing treatment of the diagnosis listed. The above information is true and accurate reflection of patient's current condition. Confidential - Redisclosure prohibited without a patient's written consent.
--- NOTE | 2017-09-23 15:18 | Physician Discharge Referral ---
Home Health/Hosp Referral Info Transfer to: Home Health, Hospice Provider in Charge Post Discharge: Visual Effects Editor - Diagnosis (1) Congestive heart failure Status: Acute (2) Pulmonary edema Status: Acute (3) Acute and chronic respiratory failure Status: Resolved (4) COPD (chronic obstructive pulmonary disease) Status: Chronic (5) Afib Status: Chronic (6) Hypokalemia Status: Resolved (7) Type 2 diabetes mellitus Status: Chronic (8) Scrotal edema Status: Acute (9) Ascites Status: Resolved - Respiratory Orders Smoking Cessation: Smoking cessation has been advised. For more information, call the [place] Tobacco Quit Line at 6-688-GSOV-NOW. - Diet/Nutrition Diet/Nutrition Orders: No Added Salt (LAMINE) - Services Needed Following services are medically necessary services: Nursing, Home Health Aide, Physical Therapy, Occupational Therapy Home Care Orders: Continue Bumex 1 mg 3 times a day, potassium 20 meq Daily. Stop Xarelto due to history of GI bleed. Follow-up with primary care physician after being discharged from rehabilitation, may require an additional paracenteses in the near future. Fluid restriction of 1500 mL a day - Transfer Medications Prescriptions: OxyCODONE Immed Rel [Roxicodone 5 MG] 5 mg PO Q6HR PRN #20 tablet PRN Reason: Moderate Pain (4-6) Bumetanide [Bumex] 1 mg PO TID #90 tablet Potassium Chloride 20 meq PO DAILY 30 Days tab.er.prt Home Medications: Aspirin 81 mg PO DAILY 04/28/15 [History] Atorvastatin [Lipitor] 40 mg PO HS 04/28/15 [History] Ferrous Sulfate 325 mg PO BID 04/28/15 [History] Albuterol Sulfate [Proair Hfa] 2 puff IH Q4H PRN 01/25/17 [History] Metoprolol Succinate 200 mg PO DAILY 01/25/17 [History] Oxygen 3 l NS CONT 02/03/17 [History] Insulin LISPRO [HumaLOG] 0 units SQ TIDWM 04/06/17 [History] Spironolactone [Aldactone] 12.5 mg PO DAILY 06/17/17 [History] Ipratropium/Albuterol Neb [Duoneb] 3 ml IH Q4HR PRN 07/01/17 [History] Lactulose 10 gm PO DAILY 08/30/17 [History] Pantoprazole Sodium [Protonix] 40 mg PO DAILY 08/30/17 [History] Sennosides [Senokot] 8.6 mg PO DAILY 08/30/17 [History] SitaGLIPtin [Januvia] 100 mg PO DAILY 08/30/17 [History] Diltiazem CD (24hr) [Cardizem CD] 120 mg PO DAILY 09/20/17 [History] Insulin DETEMIR [Levemir] 35 unit SQ BID 09/20/17 [History] Bumetanide [Bumex] 1 mg PO TID #90 tablet 09/23/17 [Rx] OxyCODONE Immed Rel [Roxicodone 5 MG] 5 mg PO Q6HR PRN #20 tablet 09/23/17 [Rx] Potassium Chloride 20 meq PO DAILY 30 Days tab.er.prt 09/23/17 [Rx] Allergies/Adverse Reactions: 3 Allergy/AdvReac Type Severity Reaction Status Date / Time bupropion [From Wellbutrin] Allergy Difficulty Verified 06/17/17 00:14 Breathing codeine Allergy Difficulty Verified 06/17/17 00:14 Breathing Opioids-Meperidine and Allergy Difficulty Verified 06/17/17 00:14 Related Breathing [Opioids-Meperidine & Related] Certification: Further, I certify that my clinical findings support that this patient is homebound (i.e. absences from home require considerable and taxing effort and are for medical reasons or jew services or infrequently or short duration when for other reasons) because: Homebound Reason: Patient requires assistance of a person or device to safely leave home Attestation: My signature below is to certify that this patient is under my care and that I, or nurse practitioner, or a physician's assistant financial accountant working with me, has a face-to -face encounter with this patient.
[2017-09-23 15:56] VITALS: BP 100/59
== END 2017-09-23 17:44 | disposition hospice, home (50) | DRG 291 ==
LOC: 2ANU 07:10 → EMEROO 07:10 → 2ANU 13:15 → SUATTDRO 13:45 → 3BNU 15:08
PROVIDERS: ADMIT Hospitalist; ATTEND Internal Medicine

== ENCOUNTER 2017-10-03 14:39 | Inpatient (IN) ==
[2017-10-03] MEDS ORDERED: methylPREDNISolone 125 MG/2 ML VIAL IVP ONE (14:49)
[2017-10-03] MEDS ORDERED: Ipratropium/Albuterol Neb 3 ML IH ONE (14:49)
--- NOTE | 2017-10-03 14:54 | Emergency Department Note ---
START Narrative - START START: I examined this patient and my medical decision-making was reviewed with the emergency medicine resident. I agree with the documented findings, disposition and treatment plan as described except to the extent set forth below. Patient seen with emergency medicine resident Dr. Russell Fernandes Please see a copy of his note for details of the H&P, ED evaluation, management and disposition. I have independently evaluated the patient and confirmed appropriate portions of the history and physical exam. Briefly: 71-year-old male end-stage COPD pulse ox in the low 80s pertinent for shortness of breath and difficulty breathing. Was seen just a week or so ago was on BiPAP for a prolonged period of time felt that had be intubated. Patient arrives somnolent. Was immediately placed upon arrival on BiPAP. O2 sats went up to 100. We will give the patient a short period of time of observation along with CVG measurements to see if intubation is indicated at this time. Patient was had a VBG results which showed pH is 7.37 PCO2 of only 49 bicarbonate 28 which is slightly elevated. Patient is looking better he sitting upright in bed he is periodically taking the mask on and off for comfort. Awaiting chest x-ray results and labs patient will then be admitted and there are transferred.Providing 45 minutes of critical care service for this patient. Disposition pending but admission to an ICU for transfer to ICU strongly anticipated
--- NOTE | 2017-10-03 15:05 | Emergency Department Note ---
Disposition Clinical Impression: COPD exacerbation, Acute respiratory distress, CHERRIE (acute kidney injury), Signs and symptoms of severe respiratory distress, Hypoxia CHF exacerbation Qualifiers: Congestive heart failure type: unspecified Qualified Code(s): I50.9 - Heart failure, unspecified Disposition: Admitted As Inpatient Time of Disposition: 18:00 SOB HPI - General Chief Complaint: ED Shortness of Breath/Dyspnea Stated Complaint: WESLEY Time Seen by Provider: 10/03/17 14:48 Source: patient, EMS Limitations: no limitations Nursing Notes Reviewed: Yes Vital Signs Reviewed: Yes - History of Present Illness Patient is a 71-year-old male complains of difficulty in breathing 1 day. Patient complains of severe orthopnea, and was sitting in the upright position while being wheeled in by EMS. EMS states that when they arrived the patient had an O2 sat of 73 and was transferred onto the O2 system on 3 L, which brought patient's O2 sat to 92. Patient states that just leaning back makes him short of breath. Patient has a history of CHF and COPD with recent admission where he was intubated for difficulty in breathing secondary to CHF exacerbation. Patient denies any chest pain, headache, fevers, chills. Patient is on BiPAP in the evenings and is on 3.5 L via nasal cannula at home. - Related Data Home Medications Medication Instructions Recorded Confirmed Aspirin 81 mg PO DAILY 04/28/15 09/20/17 Atorvastatin [Lipitor] 40 mg PO HS 04/28/15 09/20/17 Ferrous Sulfate 325 mg PO BID 04/28/15 09/20/17 Albuterol Sulfate [Proair Hfa] 2 puff IH Q4H PRN 01/25/17 09/20/17 Metoprolol Succinate 200 mg PO DAILY 01/25/17 09/20/17 Oxygen 3 l NS CONT 02/03/17 09/20/17 Insulin LISPRO [HumaLOG] 0 units SQ TIDWM 04/06/17 09/20/17 Spironolactone [Aldactone] 12.5 mg PO DAILY 06/17/17 09/20/17 Ipratropium/Albuterol Neb [Duoneb] 3 ml IH Q4HR PRN 07/01/17 09/20/17 Lactulose 10 gm PO DAILY 08/30/17 09/20/17 Pantoprazole Sodium [Protonix] 40 mg PO DAILY 08/30/17 09/20/17 Sennosides [Senokot] 8.6 mg PO DAILY 08/30/17 09/20/17 SitaGLIPtin [Januvia] 100 mg PO DAILY 08/30/17 09/20/17 Diltiazem CD (24hr) [Cardizem CD] 120 mg PO DAILY 09/20/17 09/20/17 Insulin DETEMIR [Levemir] 35 unit SQ BID 09/20/17 09/20/17 Previous Rx's Medication Instructions Recorded Bumetanide [Bumex] 1 mg PO TID #90 tablet 09/23/17 OxyCODONE Immed Rel [Roxicodone 5 5 mg PO Q6HR PRN #20 tablet 09/23/17 MG] Potassium Chloride 20 meq PO DAILY 30 Days tab.er.prt 09/23/17 Allergies Allergy/AdvReac Type Severity Reaction Status Date / Time bupropion [From Wellbutrin] Allergy Difficulty Verified 06/17/17 00:14 Breathing codeine Allergy Difficulty Verified 06/17/17 00:14 Breathing Opioids-Meperidine and Allergy Difficulty Verified 06/17/17 00:14 Related Breathing [Opioids-Meperidine & Related] All systems ED: reviewed and negative except as stated. Review of Systems: As Per HPI Constitutional: Denies: fever, chills ENT ED: Reports: congestion Cardiovascular: Reports: orthopnea. Denies: chest pain, palpitations, syncope Respiratory: Reports: dyspnea. Denies: cough, hemoptysis Gastrointestinal: Denies: abdominal pain, nausea, vomiting, diarrhea Musculoskeletal: Denies: back pain Past Medical History - Past Medical History Attestation: Yes The following information was validated with the patient. Source: patient, nursing notes reviewed Medical history: Reports: arthritis, atrial fibrillation, CHF, COPD, diabetes, hyperlipidemia, hypertension, liver disease, renal disease Surgical history: Reports: orthopedic, other, pacemaker/AICD Psychiatric history: Reports: no psych history - Social History Smoking Status: Former smoker Smokeless Tobacco Status: No Alcohol use: Reports: none Drug use: Reports: none Physical Exam Vital Signs Temperature 98.3 F 10/03/17 14:40 Pulse Rate 72 10/03/17 14:40 Respiratory Rate 16 10/03/17 14:40 Blood Pressure 130/69 10/03/17 14:40 O2 Sat by Pulse Oximetry 93 10/03/17 14:40 Temperature 98.3 F 10/03/17 14:40 Pulse Rate 77 10/03/17 14:59 Respiratory Rate 18 10/03/17 14:59 Blood Pressure 130/69 10/03/17 14:59 O2 Sat by Pulse Oximetry 100 10/03/17 14:59 Oxygen Delivery Oxygen Delivery Bipap 71-year-old male who presents sitting up on the EMS cot in extremis, working hard to breathe. - General General appearance: lethargic, in distress - Head Head exam: atraumatic, normocephalic, normal inspection - Eye Eye exam: Present: normal appearance, PERRL, EOMI - ENT ENT exam: normal exam, normal oropharynx, mucous membranes moist - Neck Neck exam: Present: normal inspection, full ROM, trachea midline - Chest Chest inspection: Present: normal inspection, symmetric chest wall rise. Absent : tenderness - Respiratory Respiratory exam: Present: respiratory distress. Absent: wheezes - Cardiovascular Cardiovascular exam: Present: regular rate, normal rhythm - Abdominal Exam Abdominal exam: Present: soft, Non-Tender, distention - Back Exam Back exam: Present: normal inspection, full ROM, other (Pressure ulcer along the gluteal cleft and superior right left buttock region. Stage I). Absent: tenderness, CVA tenderness (R), CVA tenderness (L) Course - Reevaluation(s) Reevaluation #1: BiPAP ordered Time: 14:49 Reevaluation #2: BiPAP was initiated and patient started showing improvement in breathing and mentation after 5 minutes. After 10 minutes of being on the BiPAP patient is alert and oriented 3 Time: 15:10 Reevaluation #3: Patient is stating that he wants to go home. Patient states she is very tired and wants to sleep. He came to an agreement with us that if we got a better bed for him to relax and that he would stay. Time: 16:09 Additional Reevaluation(s): 1620 hrs.: The patient was placed into a full bed and is currently comfortable and agreeable to stay. Lasix ordered 40 mg IV Vital Signs Temperature 98.3 F 10/03/17 14:40 Pulse Rate 72 10/03/17 14:40 Respiratory Rate 16 10/03/17 14:40 Blood Pressure 130/69 10/03/17 14:40 O2 Sat by Pulse Oximetry 93 10/03/17 14:40 Temperature 97.5 F L 10/03/17 20:00 Pulse Rate 74 10/03/17 20:00 Respiratory Rate 14 10/03/17 20:38 Blood Pressure 100/47 10/03/17 20:38 O2 Sat by Pulse Oximetry 97 10/03/17 20:38 Oxygen Delivery Oxygen Delivery Nasal Cannula Shortness of Breath/Dyspnea - [facility] Narrative Medical decision making narrative: COPD and CHF exacerbation requiring BiPAP on arrival, secondary to somnolence possibly from bacterial or viral infection. Labs drawn to include cultures, CBC , BNP, lactic acid. Chest x-ray ordered as well. 1500 hrs.: Patient's breathing and level of discomfort has improved after 10 minutes on BiPAP. Patient's mentation perked up and is no longer lethargic. Patient has agreed to intubation if he goes into worsening respiratory distress/ respiratory failure. 1503 hrs. Chest x-ray shows worsening pleural effusion on the right which most likely is leading factor exacerbating patient's symptoms 1520 hrs.: Labs: CBC shows patient's anemia is at baseline, VBG shows compensated respiratory acidosis, no CO2 retention. BMP shows insignificant elevations of the patient's creatinine today of 1.69 with a previous 1.66. And , patient's troponin is negative for elevation BNP today 817 with previous of 760 1 day ago which is also acutely insignificant , and does not fully correlate with patient's clinical presentation of being on the cusp of respiratory failure at initial presentation. Current plan is for admission. Patient accepts this decision for admission. Of note patient presented with preexistent pressure ulcers to his sacrum area. His watch and monitor for acute worsening. Wound care has been ordered to assess and treat accordingly. Dr. Coats the hospitalist as accepted patient for admission at 1626hrs. patient admitted to telemetry bed - Lab Data Lab results reviewed: Yes I reviewed the patient's lab results. Lab results narrative: Short CBC 10/03/17 Range/Units 14:48 WBC 7.5 (4.3-11.1) K/mcL Hgb 8.7 L (12.9-16.9) g/dL Hct 29.6 L (37.5-50.1) % Plt Count 426 H (140-400) K/mcL Neutrophils # 5.8 (1.6-8.9) K/mcL BMP 10/03/17 Range/Units 14:48 Sodium 136 (136-145) mEq/L Potassium 3.5 (3.5-5.1) mEq/L Chloride 100 (98-107) mEq/L Carbon Dioxide 26 (23-29) mEq/L BUN 32 H (8-23) mg/dL Creatinine 1.69 H (0.70-1.30) mg/dL Glucose 167 H (70-105) mg/dL Calcium 8.3 L (8.6-10.3) mg/dL Cardiac Enzymes 10/03/17 Range/Units 14:48 Troponin I < 0.03 (< 0.04) ng/mL Result diagrams: 10/03/17 14:48 10/03/17 14:48 Lab Results 10/03/17 10/03/17 10/03/17 Range/Units 14:48 14:48 14:48 WBC 7.5 (4.3-11.1) K/mcL RBC 3.59 L (4.19-5.50) M/mcL Hgb 8.7 L (12.9-16.9) g/dL Hct 29.6 L (37.5-50.1) % MCV 82.5 L (83.0-100.0) fL MCH 24.2 L (28.0-33.3) pg MCHC 29.4 L (31.6-35.5) g/dL RDW 17.3 H (11.5-14.5) % Plt Count 426 H (140-400) K/mcL MPV 9.0 L (9.4-12.4) fL Immature Gran % 0.5 (0-4) % Seg Neutrophils % 76.9 % Lymphocytes % 8.0 % Monocytes % 13.5 % Eosinophils % 0.4 % Basophils % 0.7 % Neutrophils # 5.8 (1.6-8.9) K/mcL Lymphocytes # 0.6 (0.6-4.6) K/mcL Monocytes # 1.0 (0.0-1.3) K/mcL Eosinophils # 0.0 (0.0-0.6) K/mcL Basophils # 0.1 (0.0-0.2) K/mcL VBG pH (7.32-7.42) pH Units VBG pCO2 (41-51) mmHg VBG pO2 (25-50) mmHg VBG HCO3 (21-27) mEq/L Sodium 136 (136-145) mEq/L Potassium 3.5 (3.5-5.1) mEq/L Chloride 100 (98-107) mEq/L Carbon Dioxide 26 (23-29) mEq/L BUN 32 H (8-23) mg/dL Creatinine 1.69 H (0.70-1.30) mg/dL Est GFR ( Amer) 48 L (> 60) Est GFR (Non-Af Amer) 40 L (> 60) BUN/Creatinine Ratio 19 (6-26) Glucose 167 H (70-105) mg/dL Calculated Osmolality 293 (280-300) Lactic Acid 1.0 (0.5-2.2) mmol/L Calcium 8.3 L (8.6-10.3) mg/dL Troponin I (< 0.04) ng/mL B-Natriuretic Peptide (Less than 100) pg/mL 10/03/17 10/03/17 10/03/17 Range/Units 14:48 14:48 15:02 WBC (4.3-11.1) K/mcL RBC (4.19-5.50) M/mcL Hgb (12.9-16.9) g/dL Hct (37.5-50.1) % MCV (83.0-100.0) fL MCH (28.0-33.3) pg MCHC (31.6-35.5) g/dL RDW (11.5-14.5) % Plt Count (140-400) K/mcL MPV (9.4-12.4) fL Immature Gran % (0-4) % Seg Neutrophils % % Lymphocytes % % Monocytes % % Eosinophils % % Basophils % % Neutrophils # (1.6-8.9) K/mcL Lymphocytes # (0.6-4.6) K/mcL Monocytes # (0.0-1.3) K/mcL Eosinophils # (0.0-0.6) K/mcL Basophils # (0.0-0.2) K/mcL VBG pH 7.37 (7.32-7.42) pH Units VBG pCO2 49 (41-51) mmHg VBG pO2 47 (25-50) mmHg VBG HCO3 28 H (21-27) mEq/L Sodium (136-145) mEq/L Potassium (3.5-5.1) mEq/L Chloride (98-107) mEq/L Carbon Dioxide (23-29) mEq/L BUN (8-23) mg/dL Creatinine (0.70-1.30) mg/dL Est GFR ( Amer) (> 60) Est GFR (Non-Af Amer) (> 60) BUN/Creatinine Ratio (6-26) Glucose (70-105) mg/dL Calculated Osmolality (280-300) Lactic Acid (0.5-2.2) mmol/L Calcium (8.6-10.3) mg/dL Troponin I < 0.03 (< 0.04) ng/mL B-Natriuretic Peptide 817 H (Less than 100) pg/mL - Radiology Data Radiology results reviewed: Yes I reviewed the patient's radiology results. Chest X-Ray 10/03/17 14:49 IMPRESSION: Small to moderate right pleural effusion, stable to slightly increased. D/ / Nancy Garza MD / Nancy Garza MD Interpreting Provider: Nancy Garza MD - EKG Data EKG attestation: Yes I reviewed and interpreted this EKG. EKG results narrative: EKG taken 10/03/2017 shows sinus rhythm at a rate of 70 bpm with frequent PVCs but no signs of ischemia. His EKG for comparison taken 1 day ago shows similar morphology.
[2017-10-03 15:08] LABS: Basophils # 0.1 K/mcL (0.0-0.2); Basophils % 0.7 %; Eosinophils % 0.4 %; Hematocrit 29.6 % (37.5-50.1); Hemoglobin 8.7 g/dL (12.9-16.9); Immature Granulocytes % 0.5 % (0-4); Lymphocytes # 0.6 K/mcL (0.6-4.6); Mean Corpuscular HGB Conc 29.4 g/dL (31.6-35.5); Mean Corpuscular Hemoglobin 24.2 pg (28.0-33.3); Mean Corpuscular Volume 82.5 fL (83.0-100.0); Monocytes % 13.5 %; Neutrophils # 5.8 K/mcL (1.6-8.9); Platelet Count 426 K/mcL (140-400); Red Blood Count 3.59 M/mcL (4.19-5.50); Red Cell Distribution Width 17.3 % (11.5-14.5); Segmented Neutrophils % 76.9 %
[2017-10-03 15:10] LABS: VBG HCO3 28 mEq/L (21-27); VBG PCO2 49 mmHg (41-51); VBG PH 7.37 pH Units (7.32-7.42); VBG PO2 47 mmHg (25-50)
[2017-10-03 15:14] LABS: Calcium 8.3 mg/dL (8.6-10.3); Potassium 3.5 mEq/L (3.5-5.1)
[2017-10-03] MEDS ORDERED: Furosemide 40 MG/4 ML VIAL IVP ONE (16:28)
--- NOTE | 2017-10-03 19:57 | Internal Med History&Physical ---
Date of Encounter: 10/04/17 Time of Encounter: 19:56 Assessment and Plan (1) Acute exacerbation of CHF (congestive heart failure) Current visit: No Status: Acute BiPAP on at all times except for at meals; will wean as able Continue nasal O2 to maintain SpO2 between 88-92% maintain on continuous pulse ox and cardiac telemetry IV Lasix 40mg daily; hold usual bumex diet order placed for salt restriction, fluid restriction to 1.5L, and diabetic diet most recent ECHO was April 2017 Qualifiers: Congestive heart failure type: combined Qualified Code(s): I50.43 - Acute on chronic combined systolic (congestive) and diastolic (congestive) heart failure (2) COPD (chronic obstructive pulmonary disease) Current visit: No Status: Chronic No fevers or wheezes heard on exam doubt acute exacerbation particularly infection Scheduled duonebs and PRN albuterol nebs ordered other orders as above consider steroids if further exam demonstrates findings of acute COPD exacerbation Qualifiers: COPD type: COPD with acute exacerbation Qualified Code(s): J44.1 - Chronic obstructive pulmonary disease with (acute) exacerbation (3) Acute and chronic respiratory failure Current visit: No Status: Resolved most likely due to acute CHF exacerbation chronic respiratory failure requiring 3.5L nasal O2 at home other plans as above Qualifiers: Respiratory failure complication: hypoxia Qualified Code(s): J96.21 - Acute and chronic respiratory failure with hypoxia (4) Pleural effusion, right Current visit: No Status: Acute uncertain etiology will repeat CXR in AM to assess for change (5) Diabetes mellitus Current visit: No Status: Chronic diabetic diet Med dose SSI Qualifiers: Diabetes mellitus type: type 2 Diabetes mellitus complication status: with circulatory complication Diabetes mellitus complication detail: with other circulatory complications Diabetes mellitus cardiac nurse specialist insulin use: with cardiac nurse specialist use Qualified Code(s): E11.59 - Type 2 diabetes mellitus with other circulatory complications; Z79.4 - assisted (current) use of insulin; 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; 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; 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 (6) [id number] kidney injury Current visit: No Status: Chronic continue to monitor Qualifiers: Acute renal failure type: unspecified Chronic kidney disease stage: stage 3 (moderate) Qualified Code(s): N17.9 - Acute kidney failure, unspecified; N18.3 - Chronic kidney disease, stage 3 (moderate); N18.3 - Chronic kidney disease, stage 3 (moderate) (7) DVT prophylaxis Current visit: No Status: Acute subcutaneous heparin fall risk, so ambulation discouraged at present compromised up to chair at bedside with chair alarm Internal Medicine - H&P: HPI Chief complaint: worsening shortness of breath Admitted From: Emergency Dept History of present illness: Mr. Diaz is a 71 year old male with known history of CHF as well as 02 dependent COPD. Uses BiPAP and night and 3.5 L of O2 by nasal cannula at home. Initial history is limited due to patient somnolence. Per emergency dept, patient has been having worsening shortness of breath over the last few days including severe orthopnea. Patient was brought in by EMS and was apparently saturating in the low 70s on arrival. Patient was quickly responsive to 3 L via nasal cannula. Patient placed on BiPAP and was apparently subjectively responsive to this. Work up in ED revealed right pleural effusion and elevated BNP. Admitted for acute CHF exacerbation. Patient did attend to my presence when addressed verbally, but did not answer any questions; appeared quite somnolent and refused to interact. Did not seem lethargic. No further medical history was obtained obtainable at that time. RT did attend patients BiPAP settings considering that he was saturated 100% at that time. Patient regained baseline mentation shortly after, was poorly cooperative with further history. Later visited patient at nursing request due to insistence on being able to independently sit at bedside despite somnolence and fall risk. Patient offers little recent history except to emphasize worsening SOA and orthopnea and to tell me that his home health nurse called EMS on his behalf. Denies fevers, body aches, chest pains, vomiting, dysuria, or any other new symptoms. Past Med Surg Social Fam HX - Past Medical History Medical history: arthritis, atrial fibrillation, CHF, COPD, diabetes, hyperlipidemia, hypertension, liver disease, renal disease Psychiatric history: no psych history - Past Surgical History Surgical History: orthopedic, other, pacemaker/AICD - Social History Smoking Status: Former smoker Smokeless Tobacco Status: No Alcohol use: none Drug use: none - Family History Father Hx Family Cardiac Disorders: Yes (Triple Bypass) Hx Family Endocrine Disorder: Yes (DM) Mother Family Member Ethnicity: Non- Living Status: Internal Medicine - H&P: Meds Aspirin 81 mg PO DAILY 04/28/15 [History] Atorvastatin [Lipitor] 40 mg PO HS 04/28/15 [History] Ferrous Sulfate 325 mg PO BID 04/28/15 [History] Albuterol Sulfate [Proair Hfa] 2 puff IH Q4H PRN 01/25/17 [History] Metoprolol Succinate 200 mg PO DAILY 01/25/17 [History] Oxygen 3 l NS CONT 02/03/17 [History] Insulin LISPRO [HumaLOG] 0 units SQ TIDWM 04/06/17 [History] Spironolactone [Aldactone] 12.5 mg PO DAILY 06/17/17 [History] Ipratropium/Albuterol Neb [Duoneb] 3 ml IH Q4HR PRN 07/01/17 [History] Lactulose 10 gm PO DAILY 08/30/17 [History] Pantoprazole Sodium [Protonix] 40 mg PO DAILY 08/30/17 [History] Sennosides [Senokot] 8.6 mg PO DAILY 08/30/17 [History] SitaGLIPtin [Januvia] 100 mg PO DAILY 08/30/17 [History] Diltiazem CD (24hr) [Cardizem CD] 120 mg PO DAILY 09/20/17 [History] Insulin DETEMIR [Levemir] 35 unit SQ BID 09/20/17 [History] Bumetanide [Bumex] 1 mg PO TID #90 tablet 09/23/17 [Rx] OxyCODONE Immed Rel [Roxicodone 5 MG] 5 mg PO Q6HR PRN #20 tablet 09/23/17 [Rx] Potassium Chloride 20 meq PO DAILY 30 Days tab.er.prt 09/23/17 [Rx] 3 Allergy/AdvReac Type Severity Reaction Status Date / Time bupropion [From Wellbutrin] Allergy Difficulty Verified 06/17/17 00:14 Breathing codeine Allergy Difficulty Verified 06/17/17 00:14 Breathing Opioids-Meperidine and Allergy Difficulty Verified 06/17/17 00:14 Related Breathing [Opioids-Meperidine & Related] ROS unobtainable: due to mental status All Systems PM: A 10-system review of systems was performed and is negative for pertinent findings except as documented above in the HPI. - Constitutional Vitals: Temp Pulse Resp BP Pulse Ox 97.5 F L 85 14 100/47 98 10/03/17 18:05 10/03/17 18:05 10/03/17 18:05 10/03/17 18:05 10/03/17 18:05 General appearance: Present: A&O X 0 (On initial contact; AOx3 on repeat contact approximately one hour after initial contact), A&O X 3, no acute distress Exam: CONSTITUTIONAL: comfortably supine inclined to about 45 degrees in bed, on BiPAP somnolent but responsive to verbal stimulus, does not answer questions, SpO2 100% -- later quite agitated with nursing staff calling them obscenities and attempting to get out of bed HEAD: Normocephalic; atraumatic. EYES: PERRL, no scleral icterus, no drainage, no conjunctival injection NOSE: The nose is normal in appearance without rhinorrhea Oropharynx: pink/moist, no tonsillar edema/erythema/exudates RESP: at rest, no respiratory distress or use of accessory muscles. Coarse crackles heard at right lung base. CARD: Regular rhythm, without murmurs, rubs, or gallop ABD: grossly normal, soft, non-tender, no guarding/distention/rigidity SKIN: normal appearance, no pallor/diaphoresis,mottling,jaundice,cyanosis EXT: bilateral LE edema 2-3+ pitting PSYCH: though initially somnolent and non-verbal, patient is later verbal despite ongoing somnolence; AOx3 at best and agitated. Lucid without signs of delirium despite agitation. Internal Med - H&P Results - Labs CBC & Chem 7: 10/03/17 14:48 10/03/17 14:48
[2017-10-03] MEDS ORDERED: Acetaminophen 325 MG TABLET PO PRN (21:01)
[2017-10-03] MEDS ORDERED: Ondansetron ODT 4 MG TAB.RAPDIS SL PRN (21:01)
[2017-10-03] MEDS ORDERED: Naloxone 0.4 MG/ML INJ IVP PRN (21:01)
[2017-10-03] MEDS ORDERED: *HR* HYDROcodone/Acet 5/325 mg TABLET PO PRN (21:01)
[2017-10-03] MEDS ORDERED: Albuterol 2.5 MG/3 ML NEBULIZER IH PRN (21:04)
[2017-10-03] MEDS ORDERED: Haloperidol Lactate 5 MG/ML VIAL IVP ONE (22:04)
[2017-10-03] MEDS ORDERED: Haloperidol Lactate 5 MG/ML VIAL ONE (22:07)
[2017-10-04] MEDS: Ipratropium/Albuterol Neb 3 ML IH SCH ×7 (00:03→23:13)
[2017-10-04] MEDS ORDERED: D5% in Water 1,000 ML IVC PRN (00:55)
[2017-10-04] MEDS ORDERED: Dextrose Gel 15 GM/37.5 ML TUBE PO PRN ×2 (00:55)
[2017-10-04] MEDS ORDERED: *HR* Dextrose 50 % in Water (Syg) 50 ML SYRINGE IVP PRN (00:55)
[2017-10-04] MEDS: Insulin LISPRO 300 UNITS/3 ML VIAL SQ SCH ×5 (01:36→21:58)
[2017-10-04] MEDS ORDERED: *HR* Heparin 5,000 UNIT/ML VIAL SQ SCH (06:00)
[2017-10-04 07:43] LABS: Calcium 8.3 mg/dL (8.6-10.3); Potassium 3.5 mEq/L (3.5-5.1)
[2017-10-04 08:07] LABS: Hemoglobin 8.4 g/dL (12.9-16.9)
[2017-10-04 08:09] LABS: Basophils % 0.2 %; Hematocrit 28.6 % (37.5-50.1); Immature Granulocytes % 0.8 % (0-4); Lymphocytes # 0.4 K/mcL (0.6-4.6); Lymphocytes % 5.8 %; Mean Corpuscular HGB Conc 29.4 g/dL (31.6-35.5); Mean Corpuscular Hemoglobin 24.3 pg (28.0-33.3); Mean Corpuscular Volume 82.7 fL (83.0-100.0); Mean Platelet Volume 9.1 fL (9.4-12.4); Monocytes # 0.4 K/mcL (0.0-1.3); Monocytes % 5.6 %; Neutrophils # 5.8 K/mcL (1.6-8.9); Platelet Count 378 K/mcL (140-400); Red Blood Count 3.46 M/mcL (4.19-5.50); Red Cell Distribution Width 17.2 % (11.5-14.5); Segmented Neutrophils % 87.6 %
[2017-10-04 08:36] LABS: Platelet Estimate Normal (Normal)
[2017-10-04 08:37] LABS: Hypochromasia Present (Not Present); Poikilocytosis 1+ (Not Present); Polychromasia 1+ (Not Present)
[2017-10-04] MEDS ORDERED: Furosemide 40 MG/4 ML VIAL IVP SCH (09:00)
[2017-10-04 09:47] LABS: Magnesium 2.2 mg/dL (1.6-2.6)
[2017-10-04] MEDS: Silvasorb 44.4 ML TUBE TP SCH (19:00)
[2017-10-04] MEDS: *HR* Heparin 5,000 UNIT/ML VIAL SQ SCH (19:00)
--- NOTE | 2017-10-04 19:06 | Event Note ---
Date of Encounter: 10/04/17 Time of Encounter: 10:00 I examined this patient and my medical decision-making was reviewed with the Resident Physician on 10/04/17. I agree with the documented findings, disposition and treatment plan as described except to the extent set forth below. Mr Diaz is currently admitted for acute exac CHF. He remains moderate to high risk due to potential for worsening clinical status. Mr Diaz is breathing a little better at this time. He has been off and on bipap. No CP. No fever or chills. Exam Alert. Mild distress Mucus membranes dry Heart distant Decreased breath sounds Abd soft I/P 1. Acute on chronic hypoxic resp failure 2. CHF exac 3. Morbid obesity 4. COPD exac 5. R pleural effusion 6. CKD 3 Further diagnoses and plan per progress note of today.
--- NOTE | 2017-10-04 21:23 | Internal Med Progress Note ---
<Vitaly Jiang - Last Filed: 10/05/17 17:38> Date of Encounter: 10/05/17 Time of Encounter: 09:30 - Assessment and plan (1) Acute and chronic respiratory failure Current Visit: No Status: Resolved Assessment and plan: Acute exacerbation of chronic respiratory disease in the setting of Diastolic CHF exacerbation, GRAZYNA, A-fib, COPD. Plan: - Continue Diuresis with Lasix 40 mg 3 times a day to reduce pulmonary edema - Continue BiPAP at night and rest - Wean oxygen requirements as tolerated, Continue nasal O2 to maintain SpO2 between 88-92% - Continue scheduled Bronchodilators Qualifiers: Respiratory failure complication: hypoxia Qualified Code(s): J96.21 - Acute and chronic respiratory failure with hypoxia (2) Pulmonary edema Current Visit: No Status: Acute Assessment and plan: Secondary to acute exacerbation of diastolic heart failure. -Plan as listed above. Qualifiers: Chronicity: acute Qualified Code(s): J81.0 - Acute pulmonary edema (3) COPD (chronic obstructive pulmonary disease) Current Visit: No Status: Chronic Assessment and plan: Plan as above. - Base line 3.5 liters NC oxygen. Qualifiers: COPD type: COPD with acute exacerbation Qualified Code(s): J44.1 - Chronic obstructive pulmonary disease with (acute) exacerbation (4) Afib Current Visit: No Status: Chronic Assessment and plan: Known hx of atrial fibrillation - continue anticoagulation - continue current rate control - Continue cardiac monitoring. Qualifiers: Atrial fibrillation type: paroxysmal Qualified Code(s): I48.0 - Paroxysmal atrial fibrillation (5) Acute exacerbation of CHF (congestive heart failure) Current Visit: No Status: Acute Assessment and plan: Patient presents with increased b/l LE edema, acute on chronic respiratory status requiring BiPAP with clinical exam associated with vascular overload. BNP 817. March 2017: Echocardiogram LVEF 50-55%. Indeterminate left ventricular diastolic function. Atypical septal motion. Mild concentric hypertrophy of the left ventricle. RV is dilated with mild reduction in function. Suboptimal aortic valve Doppler signal. Suboptimal TR signal to estimate RVSP. IVC is dilated lacking respiratory collapse suggesting elevated RA pressures. Plan: - 1.5L fluid restrictions, 2g sodium restrictions - daily weights - Strict intake and output monitoring - IV lasix 40mg BID Qualifiers: Congestive heart failure type: combined Qualified Code(s): I50.43 - Acute on chronic combined systolic (congestive) and diastolic (congestive) heart failure (6) Type 2 diabetes mellitus Current Visit: No Status: Chronic Assessment and plan: Hyperglycemia in the setting of Type II DM. Plan: Levemir 20 units BID Medium dose insulin sliding scale. ACHS glucose checks. Qualifiers: Diabetes mellitus complication status: with hyperglycemia Diabetes mellitus carbon electrodes supervisor insulin use: with carbon electrodes supervisor use Qualified Code(s): E11.65 - Type 2 diabetes mellitus with hyperglycemia; Z79.4 - [facility] (current) use of insulin; Z79.4 - [facility] (current) use of insulin; Z79.4 - [facility] ( current) use of insulin; Z79.4 - guyline operator (current) use of insulin (7) GRAZYNA (obstructive sleep apnea) Current Visit: No Status: Chronic Assessment and plan: Known Hx COPD and GRAZYNA. CPAP while sleeping at night or at rest. (8) DVT prophylaxis Current Visit: No Status: Acute Assessment and plan: SQ heparin Q12hrs - Subjective Interval history: Mr. Diaz has been seen and evaluated this morning. He is on BiPAP and sitting at bed side. He does not feel his breathing has improved very much. He continues to complain of orthopnea. He focuses more on the TV remote and calling home. Denies any other problems at this time. - Constitutional Vitals: Temp Pulse Resp BP Pulse Ox 98.1 F 74 16 107/64 97 10/04/17 15:06 10/04/17 15:06 10/04/17 19:54 10/04/17 15:06 10/04/17 19:54 General appearance: Present: A&O X 0 (On initial contact; AOx3 on repeat contact approximately one hour after initial contact), A&O X 3, no acute distress Exam: GEN: Alert, awake interactive in no acute distress tolerating BiPAP HEENT: NC/AT, Pupil are equal and reactive, oral mucosa moist, BiPAP without leak, neck supple trachea midline Cardiac: RRR, radial pulses 2+ bilateral Resp: diffuse rhonchi Abdominal: Distended, +BS, mild soft tissue edema LE: 2+pittin edema, wit chronic venous stasis changes, Multiple scrapes and small wounds on bilateral LE Internal Medicine: Result - Labs CBC & Chem 7: 10/05/17 04:32 10/05/17 04:32 Labs: Short CBC 10/04/17 Range/Units 07:05 WBC 6.6 (4.3-11.1) K/mcL Hgb 8.4 L (12.9-16.9) g/dL Hct 28.6 L (37.5-50.1) % Plt Count 378 (140-400) K/mcL Neutrophils # 5.8 (1.6-8.9) K/mcL BMP 10/04/17 07:05 Sodium 136 Potassium 3.5 Chloride 102 Carbon Dioxide 24 BUN 33 H Creatinine 1.45 H Glucose 322 H Calcium 8.3 L Consult Discharge Plan - Plan Referrals: Damian Seymour MD [Primary Care Provider] - <Naresh Baldwin - Last Filed: 10/05/17 18:19> Date of Encounter: 10/04/17 - Constitutional Vitals: Temp Pulse Resp BP Pulse Ox 98.1 F 96 20 110/89 96 10/05/17 15:04 10/05/17 15:04 10/05/17 16:09 10/05/17 15:04 10/05/17 16:09 Internal Medicine: Result - Labs CBC & Chem 7: 10/05/17 04:32 10/05/17 04:32 Labs: Short CBC 10/05/17 Range/Units 04:32 WBC 10.9 D (4.3-11.1) K/mcL Hgb 8.4 L (12.9-16.9) g/dL Hct 28.8 L (37.5-50.1) % Plt Count 456 H (140-400) K/mcL Neutrophils # 9.3 H (1.6-8.9) K/mcL BMP 10/05/17 04:32 Sodium 137 Potassium 3.6 Chloride 101 Carbon Dioxide 25 BUN 39 H Creatinine 1.54 H Glucose 250 H Calcium 8.4 L Liver Function 10/05/17 Range/Units 04:32 Total Bilirubin 0.4 (0.3-1.0) mg/dL AST 12 L (13-39) Units/L ALT 11 (7-52) Units/L Alkaline Phosphatase 92 (34-104) Units/L Albumin 3.3 L (3.5-5.7) g/dL - Attending Attestation I examined this patient and my medical decision-making was reviewed with the Resident Physician on 1/24/18. I agree with the documented findings, disposition and treatment plan as described except to the extent set forth below. Please see event note of this date.
[2017-10-04] MEDS: Insulin DETEMIR 100 UNIT/ML X5UNITS SQ SCH (21:57)
[2017-10-04] MEDS: Furosemide 40 MG/4 ML VIAL IVP SCH (21:58)
[2017-10-05] MEDS: Ipratropium/Albuterol Neb 3 ML IH SCH ×5 (04:07→20:19)
[2017-10-05 05:05] LABS: Basophils % 0.3 %; Eosinophils % 0.2 %; Hematocrit 28.8 % (37.5-50.1); Hemoglobin 8.4 g/dL (12.9-16.9); Immature Granulocytes % 0.6 % (0-4); Lymphocytes # 0.4 K/mcL (0.6-4.6); Lymphocytes % 3.7 %; Mean Corpuscular HGB Conc 29.2 g/dL (31.6-35.5); Mean Corpuscular Hemoglobin 24.1 pg (28.0-33.3); Mean Corpuscular Volume 82.8 fL (83.0-100.0); Monocytes # 1.1 K/mcL (0.0-1.3); Monocytes % 10.2 %; Neutrophils # 9.3 K/mcL (1.6-8.9); Nucleated Red Blood Cells 0.2 /100 WBC (0); Platelet Count 456 K/mcL (140-400); Red Blood Count 3.48 M/mcL (4.19-5.50); Red Cell Distribution Width 17.3 % (11.5-14.5)
[2017-10-05 05:42] LABS: Albumin 3.3 g/dL (3.5-5.7); Albumin/Globulin Ratio 0.8 (1.1-2.2); Bilirubin,Total 0.4 mg/dL (0.3-1.0); Calcium 8.4 mg/dL (8.6-10.3); Potassium 3.6 mEq/L (3.5-5.1); Total Protein 7.3 g/dL (6.4-8.9)
[2017-10-05] MEDS: *HR* Heparin 5,000 UNIT/ML VIAL SQ SCH ×2 (06:57→17:12)
[2017-10-05] MEDS: Aspirin 81 MG TAB.CHEW PO SCH (08:38)
[2017-10-05] MEDS: Diltiazem CD (24hr) 120 MG CAPSULE PO SCH (08:39)
[2017-10-05] MEDS: Metoprolol XL (24 HR) Succ 50 MG TAB.ER.24H PO SCH (08:39)
[2017-10-05] MEDS: Insulin LISPRO 300 UNITS/3 ML VIAL SQ SCH ×4 (08:40→20:07)
[2017-10-05] MEDS: Furosemide 40 MG/4 ML VIAL IVP SCH ×3 (08:40→17:13)
[2017-10-05] MEDS: Insulin DETEMIR 100 UNIT/ML X5UNITS SQ SCH ×2 (08:40→20:06)
[2017-10-05 11:48] LABS: VBG HCO3 30 mEq/L (21-27); VBG PCO2 56 mmHg (41-51); VBG PH 7.34 pH Units (7.32-7.42); VBG PO2 26 mmHg (25-50)
--- NOTE | 2017-10-05 19:05 | Event Note ---
Date of Encounter: 10/05/17 Time of Encounter: 09:30 I examined this patient and my medical decision-making was reviewed with the Resident Physician on 10/05/17. I agree with the documented findings, disposition and treatment plan as described except to the extent set forth below. Mr Diaz is currently admitted for resp failure and CHF. He remains moderate to high risk due to potential for worsening clinical status. Mr Diaz was very confused last night. He continues to be fluid overloaded. No CP. Remains on bipap intermittently. No feverl Exam Alert. Mod distress Mucus membranes dry Heart distant Lungs with wheeze Edema present I/P 1. Resp failure 2. Stage 2 decub on coccyx, stage 2 decub to bilateral buttocks 3. Leg abrasions 4. Pulmonary edema 5. COPD exacerbation 6. Parox a fib 7. CHF exac 8. DM 9. GRAZYNA Further diagnoses and plan as per progress note of today.
[2017-10-05] MEDS: Silvasorb 44.4 ML TUBE TP SCH (19:11)
[2017-10-06] MEDS: Ipratropium/Albuterol Neb 3 ML IH SCH ×7 (00:19→23:14)
[2017-10-06 05:01] LABS: Basophils % 0.3 %; Mean Platelet Volume 8.7 fL (9.4-12.4); Nucleated Red Blood Cells 0.2 /100 WBC (0); Red Cell Distribution Width 17.2 % (11.5-14.5)
[2017-10-06 05:03] LABS: Eosinophils # 0.1 K/mcL (0.0-0.6); Eosinophils % 1.2 %; Hemoglobin 8.9 g/dL (12.9-16.9); Immature Granulocytes % 0.3 % (0-4); Lymphocytes # 0.7 K/mcL (0.6-4.6); Lymphocytes % 7.6 %; Mean Corpuscular HGB Conc 29.7 g/dL (31.6-35.5); Mean Corpuscular Hemoglobin 24.1 pg (28.0-33.3); Mean Corpuscular Volume 81.1 fL (83.0-100.0); Monocytes % 10.7 %; Neutrophils # 7.2 K/mcL (1.6-8.9); Platelet Count 435 K/mcL (140-400); Segmented Neutrophils % 79.9 %
[2017-10-06 05:45] LABS: Alanine Aminotransferase 12 Units/L (7-52); Albumin 3.3 g/dL (3.5-5.7); Alkaline Phosphatase 84 Units/L (34-104); Aspartate Amino Transferase 15 Units/L (13-39); BUN/Creatinine Ratio 27 (6-26); Bilirubin,Total 0.5 mg/dL (0.3-1.0); Blood Urea Nitrogen 33 mg/dL (8-23); Calcium 8.5 mg/dL (8.6-10.3); Carbon Dioxide 29 mEq/L (23-29); Chloride 102 mEq/L (98-107); Globulin 3.4 g/dL (2.4-3.5); Glucose 94 mg/dL (70-105); Osmolality,Calculated 295 (280-300); Potassium 3.3 mEq/L (3.5-5.1); Sodium 139 mEq/L (136-145); Total Protein 6.7 g/dL (6.4-8.9); eGFR For African Americans > 60 (> 60); eGFR For Non-African Americans 58 (> 60)
[2017-10-06] MEDS: *HR* Heparin 5,000 UNIT/ML VIAL SQ SCH ×2 (06:40→18:50)
[2017-10-06] MEDS: Insulin LISPRO 300 UNITS/3 ML VIAL SQ SCH ×4 (08:04→20:16)
[2017-10-06] MEDS: Furosemide 40 MG/4 ML VIAL IVP SCH ×4 (08:18→20:16)
[2017-10-06] MEDS: Metoprolol XL (24 HR) Succ 50 MG TAB.ER.24H PO SCH (08:18)
[2017-10-06] MEDS: Diltiazem CD (24hr) 120 MG CAPSULE PO SCH (08:19)
[2017-10-06] MEDS: Aspirin 81 MG TAB.CHEW PO SCH (08:19)
--- NOTE | 2017-10-06 11:01 | Discharge Summary ---
<Vitaly Jiang - Last Filed: 10/07/17 19:08> Date of Encounter: 10/07/17 Time of Encounter: 10:58 - Discharge Diagnosis (1) Acute and chronic respiratory failure Priority: Primary Status: Resolved Qualifiers: Respiratory failure complication: hypoxia Qualified Code(s): J96.21 - Acute and chronic respiratory failure with hypoxia (2) Pulmonary edema Priority: Primary Status: Acute Qualifiers: Chronicity: acute Qualified Code(s): J81.0 - Acute pulmonary edema (3) COPD (chronic obstructive pulmonary disease) Priority: Secondary Status: Chronic Qualifiers: COPD type: COPD with acute exacerbation Qualified Code(s): J44.1 - Chronic obstructive pulmonary disease with (acute) exacerbation (4) Afib Priority: Secondary Status: Chronic Qualifiers: Atrial fibrillation type: paroxysmal Qualified Code(s): I48.0 - Paroxysmal atrial fibrillation (5) Acute exacerbation of CHF (congestive heart failure) Priority: Primary Status: Acute Qualifiers: Congestive heart failure type: combined Qualified Code(s): I50.43 - Acute on chronic combined systolic (congestive) and diastolic (congestive) heart failure (6) Type 2 diabetes mellitus Priority: Primary Status: Chronic Qualifiers: Diabetes mellitus complication status: with hyperglycemia Diabetes mellitus senior living insulin use: with longitudinal float operator use Qualified Code(s): E11.65 - Type 2 diabetes mellitus with hyperglycemia; Z79.4 - senior care (current) use of insulin; Z79.4 - buttermaker continuous churn (current) use of insulin; Z79.4 - senior care ( current) use of insulin; Z79.4 - buttermaker continuous churn (current) use of insulin (7) GRAZYNA (obstructive sleep apnea) Priority: Secondary Status: Chronic (8) DVT prophylaxis Priority: Secondary Status: Acute - Discharge Medications Home Medications: Aspirin 81 mg PO DAILY 04/28/15 [History] Atorvastatin [Lipitor] 40 mg PO HS 04/28/15 [History] Ferrous Sulfate 325 mg PO BID 04/28/15 [History] Albuterol Sulfate [Proair Hfa] 2 puff IH Q4H PRN 01/25/17 [History] Metoprolol Succinate 200 mg PO DAILY 01/25/17 [History] Oxygen 3 l NS CONT 02/03/17 [History] Insulin LISPRO [HumaLOG] 0 units SQ TIDWM 04/06/17 [History] Spironolactone [Aldactone] 12.5 mg PO DAILY 06/17/17 [History] Ipratropium/Albuterol Neb [Duoneb] 3 ml IH Q4HR PRN 07/01/17 [History] Lactulose 10 gm PO DAILY 08/30/17 [History] Pantoprazole Sodium [Protonix] 40 mg PO DAILY 08/30/17 [History] Sennosides [Senokot] 8.6 mg PO DAILY 08/30/17 [History] SitaGLIPtin [Januvia] 100 mg PO DAILY 08/30/17 [History] Diltiazem CD (24hr) [Cardizem CD] 120 mg PO DAILY 09/20/17 [History] Insulin DETEMIR [Levemir] 35 unit SQ BID 09/20/17 [History] Bumetanide [Bumex] 1 mg PO TID #90 tablet 09/23/17 [Rx] OxyCODONE Immed Rel [Roxicodone 5 MG] 5 mg PO Q6HR PRN #20 tablet 09/23/17 [Rx] Potassium Chloride 20 meq PO DAILY 30 Days tab.er.prt 09/23/17 [Rx] Acetaminophen [Tylenol 650mg SUPP] 650 mg RC Q4HR 10/04/17 [History] Haloperidol 0.5 mg PO Q2H PRN 10/04/17 [History] Hyoscyamine SL [Levsin Sl] 1 - 2 tab SL Q2H PRN 10/04/17 [History] LORazepam [Ativan] 0.5 mg PO TID 10/04/17 [History] Promethazine [Phenergan] 25 mg RC Q6HR PRN 10/04/17 [History] Allergies/Adverse Reactions: 3 Allergy/AdvReac Type Severity Reaction Status Date / Time bupropion [From Wellbutrin] Allergy Difficulty Verified 06/17/17 00:14 Breathing codeine Allergy Difficulty Verified 06/17/17 00:14 Breathing Opioids-Meperidine and Allergy Difficulty Verified 06/17/17 00:14 Related Breathing [Opioids-Meperidine & Related] Date of admission: 10/03/17 20:00 Primary care physician: Damian Seymour, Consults: 10/04/17 01:19 Consult to Wound Care [CONS] Routine Reason for Consult: diabetic wounds to bilateral LE Call Completed: No Discharging clinician: Vitaly Jiang Anticipated date of discharge: 10/06/17 - Patient Status Disposition: Hospice - Home Condition: Good Overall status at discharge: patient is progressing back to baseline - Discharge Instructions Instructions: Heart Failure (DC), Chronic Obstructive Pulmonary Disease (DC) Follow Up With: Damian Seymour MD [Primary Care Provider] - (OFFICE IS CLSOED UNTIL Tuesday, PLEASE CALL TUESDAY TO SCHEDULE YOUR HOSPITAL FOLLOW UP ) Additional Instructions: follow up with PCP within 3-5 day for post hospital follow up Follow fluid restrictions and sodium restrictions Return to the emergency department if you have recurrence of shortness of breath or any other medical concerns. - Diet and Activity Activity: increase activity as tolerated Diet: low fat, low cholesterol, low salt diet Hospital course: Mr. Diaz is a 71 year old male - Time Spent with Patient Total time spent providing and/or coordinating discharge services: - Constitutional Vitals: Temp Pulse Resp BP Pulse Ox 98.1 F 113 15 105/59 93 10/06/17 06:46 10/06/17 06:46 10/06/17 07:55 10/06/17 06:46 10/06/17 08:28 General appearance: Present: A&O X 0 (On initial contact; AOx3 on repeat contact approximately one hour after initial contact), A&O X 3, no acute distress Exam: GEN: Alert, awake interactive in no acute distress tolerating BiPAP HEENT: NC/AT, Pupil are equal and reactive, oral mucosa moist, BiPAP without leak, neck supple trachea midline Cardiac: RRR, radial pulses 2+ bilateral Resp: rhonchi appreciated in bilateral lung bases. Abdominal: Distended, +BS, mild soft tissue edema LE: 2+pitting edema, wit chronic venous stasis changes, Multiple scrapes and small wounds on bilateral LE <Naresh Baldwin - Last Filed: 10/07/17 19:14> Date of Encounter: 10/07/17 - Discharge Diagnosis (1) Acute and chronic respiratory failure Priority: Primary Status: Resolved Qualifiers: Respiratory failure complication: hypoxia and hypercapnia Qualified Code(s) : J96.21 - Acute and chronic respiratory failure with hypoxia; J96.22 - Acute and chronic respiratory failure with hypercapnia; J96.22 - Acute and chronic respiratory failure with hypercapnia; J96.22 - Acute and chronic respiratory failure with hypercapnia (2) Acute exacerbation of CHF (congestive heart failure) Priority: Secondary Status: Resolved Qualifiers: Congestive heart failure type: diastolic Qualified Code(s): I50.33 - Acute on chronic diastolic (congestive) heart failure (3) Scrotal edema Priority: Secondary Status: Chronic (4) Afib Status: Chronic Qualifiers: Atrial fibrillation type: paroxysmal Qualified Code(s): I48.0 - Paroxysmal atrial fibrillation (5) Chronic kidney disease (CKD), stage III (moderate) Priority: Secondary Status: Chronic (6) Diabetes mellitus with neuropathy Priority: Secondary Status: Chronic Qualifiers: Diabetes mellitus type: type 2 Diabetes mellitus senior living insulin use: with senior living use Qualified Code(s): E11.40 - Type 2 diabetes mellitus with diabetic neuropathy, unspecified; Z79.4 - senior care (current) use of insulin; Z79.4 - senior care (current) use of insulin; Z79.4 - buttermaker continuous churn (current) use of insulin; Z79.4 - buttermaker continuous churn (current) use of insulin (7) Essential hypertension Priority: Secondary Status: Chronic (8) Decubitus ulcer of coccyx, stage 2 Priority: Secondary Status: Chronic (9) Decubitus ulcer of left buttock, stage 2 Priority: Secondary Status: Chronic (10) Decubitus ulcer of right buttock, stage 2 Priority: Secondary Status: Chronic (11) Leg abrasion Priority: Secondary Status: Chronic Qualifiers: Encounter type: sequela Laterality: unspecified laterality Qualified Code (s): S80.819S - Abrasion, unspecified lower leg, sequela Date of admission: 10/03/17 20:00 Primary care physician: Damian Seymour, Consults: 10/04/17 01:19 Consult to Wound Care [CONS] Routine Reason for Consult: diabetic wounds to bilateral LE Call Completed: No 10/06/17 15:05 Consult to [employer] An[employer] [CONS] Routine Reason for SW Consult: Patient's spouse wants patient to go to rehab not home Hospital course: Mr. Diaz is a 71 year old male - Time Spent with Patient Total time spent providing and/or coordinating discharge services: 39min - Constitutional Vitals: Temp Pulse Resp BP Pulse Ox 97.8 F 84 16 123/55 96 10/07/17 12:00 10/07/17 12:00 10/07/17 12:00 10/07/17 12:00 10/07/17 12:00 - Attending Attestation I examined this patient and my medical decision-making was reviewed with the Resident Physician on 10/07/17. I agree with the documented findings, disposition and treatment plan as described except to the extent set forth below. Mr Diaz has been admitted for acute resp failure and CHF. He is now afebrile. He is at baseline breathing. His requested SNF but patient refuses and he is competent. Exam Alert. Comfortable Mucus membranes dry Heart distant Lungs diminished Abd soft Edema Plan D/C home today
[2017-10-06] MEDS: Insulin DETEMIR 100 UNIT/ML X5UNITS SQ SCH ×2 (11:24→20:16)
--- NOTE | 2017-10-06 11:27 | Physician Discharge Referral ---
<Vitaly Jiang - Last Filed: 10/06/17 11:25> Home Health/Hosp Referral Info Transfer to: Hospice Provider in Charge Post Discharge: PCP - Diagnosis (1) Acute and chronic respiratory failure Priority: Primary Status: Resolved (2) Pulmonary edema Priority: Primary Status: Acute (3) COPD (chronic obstructive pulmonary disease) Priority: Secondary Status: Chronic (4) Afib Priority: Primary Status: Chronic (5) Acute exacerbation of CHF (congestive heart failure) Priority: Primary Status: Acute (6) Type 2 diabetes mellitus Priority: Secondary Status: Chronic (7) GRAZYNA (obstructive sleep apnea) Priority: Secondary Status: Chronic (8) DVT prophylaxis Priority: Secondary Status: Acute - Respiratory Orders Oxygen / L per min (return to home requirements, wear BiPAP at rest and sleeping ) Smoking Cessation: Smoking cessation has been advised. For more information, call the [place] [employer] Quit Line at 1-565-VSKW-NOW. - Diet/Nutrition Diet/Nutrition Orders: Cardiac - Activity Activity Orders: Ambulate - Services Needed Following services are medically necessary services: Nursing, Home Health Aide, Physical Therapy, Med Social Work - Transfer Medications Home Medications: Aspirin 81 mg PO DAILY 04/28/15 [History] Atorvastatin [Lipitor] 40 mg PO HS 04/28/15 [History] Ferrous Sulfate 325 mg PO BID 04/28/15 [History] Albuterol Sulfate [Proair Hfa] 2 puff IH Q4H PRN 01/25/17 [History] Metoprolol Succinate 200 mg PO DAILY 01/25/17 [History] Oxygen 3 l NS CONT 02/03/17 [History] Insulin LISPRO [HumaLOG] 0 units SQ TIDWM 04/06/17 [History] Spironolactone [Aldactone] 12.5 mg PO DAILY 06/17/17 [History] Ipratropium/Albuterol Neb [Duoneb] 3 ml IH Q4HR PRN 07/01/17 [History] Lactulose 10 gm PO DAILY 08/30/17 [History] Pantoprazole Sodium [Protonix] 40 mg PO DAILY 08/30/17 [History] Sennosides [Senokot] 8.6 mg PO DAILY 08/30/17 [History] SitaGLIPtin [Januvia] 100 mg PO DAILY 08/30/17 [History] Diltiazem CD (24hr) [Cardizem CD] 120 mg PO DAILY 09/20/17 [History] Insulin DETEMIR [Levemir] 35 unit SQ BID 09/20/17 [History] Bumetanide [Bumex] 1 mg PO TID #90 tablet 09/23/17 [Rx] OxyCODONE Immed Rel [Roxicodone 5 MG] 5 mg PO Q6HR PRN #20 tablet 09/23/17 [Rx] Potassium Chloride 20 meq PO DAILY 30 Days tab.er.prt 09/23/17 [Rx] Acetaminophen [Tylenol 650mg SUPP] 650 mg RC Q4HR 10/04/17 [History] Haloperidol 0.5 mg PO Q2H PRN 10/04/17 [History] Hyoscyamine SL [Levsin Sl] 1 - 2 tab SL Q2H PRN 10/04/17 [History] LORazepam [Ativan] 0.5 mg PO TID 10/04/17 [History] Promethazine [Phenergan] 25 mg RC Q6HR PRN 10/04/17 [History] Allergies/Adverse Reactions: 3 Allergy/AdvReac Type Severity Reaction Status Date / Time bupropion [From Wellbutrin] Allergy Difficulty Verified 06/17/17 00:14 Breathing codeine Allergy Difficulty Verified 06/17/17 00:14 Breathing Opioids-Meperidine and Allergy Difficulty Verified 06/17/17 00:14 Related Breathing [Opioids-Meperidine & Related] Certification: Further, I certify that my clinical findings support that this patient is homebound (i.e. absences from home require considerable and taxing effort and are for medical reasons or scientologist services or infrequently or short duration when for other reasons) because: Homebound Reason: Patient requires assistance of a person or device to safely leave home, Leaving home requires considerable and taxing effort due to condition, Severity of cardiac or pulmonary status limits activity tolerance Attestation: My signature below is to certify that this patient is under my care and that I, or nurse practitioner, or a physician's assistant baseball coach working with me, has a face-to -face encounter with this patient. <Naresh Baldwin - Last Filed: 10/06/17 12:29> - Respiratory Orders Smoking Cessation: Smoking cessation has been advised. For more information, call the [place] [employer] Quit Line at 0-968-ARVD-NOW. Certification: Further, I certify that my clinical findings support that this patient is homebound (i.e. absences from home require considerable and taxing effort and are for medical reasons or scientologist services or infrequently or short duration when for other reasons) because: Attestation: My signature below is to certify that this patient is under my care and that I, or nurse practitioner, or a physician's assistant baseball coach working with me, has a face-to -face encounter with this patient.
--- NOTE | 2017-10-06 13:59 | Electrocardiograph Report ---
[address] [address] Test Date: 2017-10-03 Pat Name: Jaime Diaz Department: 104 Room: 2NE29 Gender: M Interior Design Coordinator: : 1945 Requested By: Gregg Pena Order Number: [id number] Reading MD: Michele Santana MD Measurements Intervals [place] Rate: 77 P: -11 [place]: 174 QRS: 116 QRSD: 186 T: -40 QT: 487 QTc: 519 Interpretive Statements PROBABLY SINUS RHYTHM WITH OCCASIONAL ECTOPIC PREMATURE COMPLEXES INTRAVENTRICULAR CONDUCTION DELAY RIGHT VENTRICULAR HYPERTROPHY BASELINE ARTIFACT COMPLICATES ACCURATE INTERPRETATION Electronically Signed On 10-06-2017 13:57:59 EST by Michele Santana MD
[2017-10-06] MEDS: Silvasorb 44.4 ML TUBE TP SCH (14:17)
--- NOTE | 2017-10-06 17:28 | Internal Med Progress Note ---
<Vitaly Jiang - Last Filed: 10/06/17 17:26> Date of Encounter: 10/06/17 Time of Encounter: 07:20 - Assessment and plan (1) Acute and chronic respiratory failure Current Visit: No Status: Resolved Assessment and plan: Acute exacerbation of chronic respiratory disease in the setting of Diastolic CHF exacerbation, GRAZYNA, A-fib, COPD. 10/06: improving today. Patient is able to lay flat without orthopnea, lung yanez improved. diuresing appropriately. Plan: - Continue Diuresis with Lasix 40 mg two times a day to reduce pulmonary edema - Continue BiPAP at night and rest - Wean oxygen requirements as tolerated, Continue nasal O2 to maintain SpO2 between 88-92% - Continue scheduled Bronchodilators Qualifiers: Respiratory failure complication: hypoxia Qualified Code(s): J96.21 - Acute and chronic respiratory failure with hypoxia (2) Pulmonary edema Current Visit: No Status: Acute Assessment and plan: Secondary to acute exacerbation of diastolic heart failure. Improved today -Plan as listed above. Qualifiers: Chronicity: acute Qualified Code(s): J81.0 - Acute pulmonary edema (3) COPD (chronic obstructive pulmonary disease) Current Visit: No Status: Chronic Assessment and plan: Plan as above. - Base line 3.5 liters NC oxygen. Qualifiers: COPD type: COPD with acute exacerbation Qualified Code(s): J44.1 - Chronic obstructive pulmonary disease with (acute) exacerbation (4) Afib Current Visit: No Status: Chronic Assessment and plan: Known hx of atrial fibrillation - continue anticoagulation - continue current rate control - Continue cardiac monitoring. Qualifiers: Atrial fibrillation type: paroxysmal Qualified Code(s): I48.0 - Paroxysmal atrial fibrillation (5) Acute exacerbation of CHF (congestive heart failure) Current Visit: No Status: Acute Assessment and plan: Patient presents with increased b/l LE edema, acute on chronic respiratory status requiring BiPAP with clinical exam associated with vascular overload. BNP 817. March 2017: Echocardiogram LVEF 50-55%. Indeterminate left ventricular diastolic function. Atypical septal motion. Mild concentric hypertrophy of the left ventricle. RV is dilated with mild reduction in function. Suboptimal aortic valve Doppler signal. Suboptimal TR signal to estimate RVSP. IVC is dilated lacking respiratory collapse suggesting elevated RA pressures. Plan: - 1.5L fluid restrictions, 2g sodium restrictions - daily weights - Strict intake and output monitoring - IV lasix 40mg BID Qualifiers: Congestive heart failure type: combined Qualified Code(s): I50.43 - Acute on chronic combined systolic (congestive) and diastolic (congestive) heart failure (6) Type 2 diabetes mellitus Current Visit: No Status: Chronic Assessment and plan: Hyperglycemia in the setting of Type II DM. Plan: Levemir 20 units BID Medium dose insulin sliding scale. ACHS glucose checks. Qualifiers: Diabetes mellitus complication status: with hyperglycemia Diabetes mellitus usp insulin use: with oysterman use Qualified Code(s): E11.65 - Type 2 diabetes mellitus with hyperglycemia; Z79.4 - intermediate (current) use of insulin; Z79.4 - termite treater (current) use of insulin; Z79.4 - intermediate ( current) use of insulin; Z79.4 - termite treater (current) use of insulin (7) GRAZYNA (obstructive sleep apnea) Current Visit: No Status: Chronic Assessment and plan: Known Hx COPD and GRAZYNA. CPAP while sleeping at night or at rest. (8) DVT prophylaxis Current Visit: No Status: Acute Assessment and plan: SQ heparin Q12hrs - Subjective Interval history: Mr. Diaz has been seen and evaluated this morning. He is on BiPAP and sitting at bed side. He denies any discomfort or problems. Tolerating diuresis and respiratory therapy. Voiding without difficulty. - Constitutional Vitals: Temp Pulse Resp BP Pulse Ox 98.1 F 98 15 115/62 94 10/06/17 16:29 10/06/17 16:29 10/06/17 16:29 10/06/17 16:29 10/06/17 16:29 General appearance: Present: A&O X 0 (On initial contact; AOx3 on repeat contact approximately one hour after initial contact), A&O X 3, no acute distress Exam: GEN: Alert, awake interactive in no acute distress tolerating BiPAP HEENT: NC/AT, Pupil are equal and reactive, oral mucosa moist, BiPAP without leak, neck supple trachea midline Cardiac: RRR, radial pulses 2+ bilateral Resp: CTABL on bipap Abdominal: Distended, +BS, mild soft tissue edema LE: 2+pittin edema, wit chronic venous stasis changes, Multiple scrapes and small wounds on bilateral LE Internal Medicine: Result - Labs CBC & Chem 7: 10/06/17 04:28 10/06/17 04:28 Labs: Short CBC 10/06/17 Range/Units 04:28 WBC 9.0 (4.3-11.1) K/mcL Hgb 8.9 L (12.9-16.9) g/dL Hct 30.0 L (37.5-50.1) % Plt Count 435 H (140-400) K/mcL Neutrophils # 7.2 (1.6-8.9) K/mcL BMP 10/06/17 04:28 Sodium 139 Potassium 3.3 L Chloride 102 Carbon Dioxide 29 BUN 33 H Creatinine 1.23 Glucose 94 Calcium 8.5 L Liver Function 10/06/17 Range/Units 04:28 Total Bilirubin 0.5 (0.3-1.0) mg/dL AST 15 (13-39) Units/L ALT 12 (7-52) Units/L Alkaline Phosphatase 84 (34-104) Units/L Albumin 3.3 L (3.5-5.7) g/dL Consult Discharge Plan - Plan Instructions: Heart Failure (DC), Chronic Obstructive Pulmonary Disease (DC) Additional Instructions: follow up with PCP within 3-5 day for post hospital follow up Follow fluid restrictions and sodium restrictions Return to the emergency department if you have recurrence of shortness of breath or any other medical concerns. Referrals: Damian Seymour MD [Primary Care Provider] - <Naresh Baldwin - Last Filed: 10/06/17 19:16> Date of Encounter: 10/06/17 - Assessment and plan (1) Acute and chronic respiratory failure Current Visit: No Status: Acute Qualifiers: Respiratory failure complication: hypoxia and hypercapnia Qualified Code(s) : J96.21 - Acute and chronic respiratory failure with hypoxia; J96.22 - Acute and chronic respiratory failure with hypercapnia; J96.22 - Acute and chronic respiratory failure with hypercapnia; J96.22 - Acute and chronic respiratory failure with hypercapnia (2) Acute exacerbation of CHF (congestive heart failure) Current Visit: Yes Status: Acute Qualifiers: Congestive heart failure type: diastolic Qualified Code(s): I50.33 - Acute on chronic diastolic (congestive) heart failure (3) Scrotal edema Current Visit: No Status: Acute (4) Afib Current Visit: No Status: Chronic Qualifiers: Atrial fibrillation type: paroxysmal Qualified Code(s): I48.0 - Paroxysmal atrial fibrillation (5) Chronic kidney disease (CKD), stage III (moderate) Current Visit: No Status: Chronic (6) Diabetes mellitus with neuropathy Current Visit: No Status: Chronic Qualifiers: Diabetes mellitus type: type 2 Diabetes mellitus oysterman insulin use: with oysterman use Qualified Code(s): E11.40 - Type 2 diabetes mellitus with diabetic neuropathy, unspecified; Z79.4 - termite treater (current) use of insulin; Z79.4 - intermediate (current) use of insulin; Z79.4 - intermediate (current) use of insulin; Z79.4 - termite treater (current) use of insulin (7) Essential hypertension Current Visit: No Status: Chronic - Constitutional Vitals: Temp Pulse Resp BP Pulse Ox 98.1 F 98 15 115/62 94 10/06/17 16:29 10/06/17 16:29 10/06/17 16:29 10/06/17 16:29 10/06/17 16:29 Internal Medicine: Result - Labs CBC & Chem 7: 10/06/17 04:28 10/06/17 04:28 Labs: Short CBC 10/06/17 Range/Units 04:28 WBC 9.0 (4.3-11.1) K/mcL Hgb 8.9 L (12.9-16.9) g/dL Hct 30.0 L (37.5-50.1) % Plt Count 435 H (140-400) K/mcL Neutrophils # 7.2 (1.6-8.9) K/mcL BMP 10/06/17 04:28 Sodium 139 Potassium 3.3 L Chloride 102 Carbon Dioxide 29 BUN 33 H Creatinine 1.23 Glucose 94 Calcium 8.5 L Liver Function 10/06/17 Range/Units 04:28 Total Bilirubin 0.5 (0.3-1.0) mg/dL AST 15 (13-39) Units/L ALT 12 (7-52) Units/L Alkaline Phosphatase 84 (34-104) Units/L Albumin 3.3 L (3.5-5.7) g/dL - Attending Attestation I examined this patient and my medical decision-making was reviewed with the Resident Physician on 10/06/17. I agree with the documented findings, disposition and treatment plan as described except to the extent set forth below. Mr Diaz is currently admitted for resp failure and CHF. He remains moderate to high risk due to potential for worsening clinical status. Mr Diaz is doing better. His breathing is about baseline. No fever or chills. Exam Alert. Comfortable Mucus membranes dry Heart irreg Lungs diminished I/P 1. Resp failure 2. CHF Planned to discharge today but does not feel he can go home as he would be alone. Wants him in a SNF. Further diagnoses and plan as above.
[2017-10-07 04:05] LABS: Immature Granulocytes % 0.4 % (0-4); Red Blood Count 3.41 M/mcL (4.19-5.50); Red Cell Distribution Width 17.2 % (11.5-14.5)
[2017-10-07 04:06] LABS: Basophils % 0.4 %; Eosinophils # 0.1 K/mcL (0.0-0.6); Eosinophils % 1.3 %; Hemoglobin 8.1 g/dL (12.9-16.9); Lymphocytes # 0.7 K/mcL (0.6-4.6); Lymphocytes % 8.7 %; Mean Corpuscular HGB Conc 28.9 g/dL (31.6-35.5); Mean Corpuscular Hemoglobin 23.8 pg (28.0-33.3); Mean Corpuscular Volume 82.1 fL (83.0-100.0); Mean Platelet Volume 8.9 fL (9.4-12.4); Monocytes # 0.8 K/mcL (0.0-1.3); Monocytes % 10.7 %; Platelet Count 391 K/mcL (140-400); Segmented Neutrophils % 78.5 %
[2017-10-07 04:11] LABS: Neutrophils # 6.1 K/mcL (1.6-8.9)
[2017-10-07] MEDS: Ipratropium/Albuterol Neb 3 ML IH SCH ×3 (04:22→11:47)
[2017-10-07 04:30] LABS: Alanine Aminotransferase 12 Units/L (7-52); Albumin 3.1 g/dL (3.5-5.7); Alkaline Phosphatase 86 Units/L (34-104); Aspartate Amino Transferase 12 Units/L (13-39); BUN/Creatinine Ratio 22 (6-26); Bilirubin,Total 0.4 mg/dL (0.3-1.0); Blood Urea Nitrogen 30 mg/dL (8-23); Calcium 8.2 mg/dL (8.6-10.3); Carbon Dioxide 30 mEq/L (23-29); Chloride 104 mEq/L (98-107); Globulin 3.1 g/dL (2.4-3.5); Glucose 193 mg/dL (70-105); Osmolality,Calculated 301 (280-300); Potassium 3.6 mEq/L (3.5-5.1); Sodium 140 mEq/L (136-145); Total Protein 6.2 g/dL (6.4-8.9); eGFR For African Americans > 60 (> 60); eGFR For Non-African Americans 51 (> 60)
[2017-10-07 04:33] LABS: Anisocytosis 1+ (Not Present); Hypochromasia Present (Not Present); Microcytosis Present (Not Present); Platelet Estimate Normal (Normal)
[2017-10-07] MEDS: *HR* Heparin 5,000 UNIT/ML VIAL SQ SCH (05:09)
[2017-10-07] MEDS: Insulin LISPRO 300 UNITS/3 ML VIAL SQ SCH ×2 (08:29→12:18)
[2017-10-07] MEDS: Aspirin 81 MG TAB.CHEW PO SCH (08:32)
[2017-10-07] MEDS: Metoprolol XL (24 HR) Succ 50 MG TAB.ER.24H PO SCH (08:32)
[2017-10-07] MEDS: Furosemide 40 MG/4 ML VIAL IVP SCH (08:33)
[2017-10-07] MEDS: Insulin DETEMIR 100 UNIT/ML X5UNITS SQ SCH (08:33)
[2017-10-07] MEDS: Diltiazem CD (24hr) 120 MG CAPSULE PO SCH (08:33)
[2017-10-07] MEDS: Silvasorb 44.4 ML TUBE TP SCH (14:23)
[2017-10-07 14:29] VITALS: BP 123/55
--- NOTE | 2017-10-07 19:04 | Internal Med Progress Note ---
Date of Encounter: 10/07/17 Time of Encounter: 10:00 - Assessment and plan (1) Acute and chronic respiratory failure Status: Resolved Assessment and plan: Breathing is at baseline at this time. Continue home support. D/C home today. Qualifiers: Respiratory failure complication: hypoxia and hypercapnia Qualified Code(s) : J96.21 - Acute and chronic respiratory failure with hypoxia; J96.22 - Acute and chronic respiratory failure with hypercapnia; J96.22 - Acute and chronic respiratory failure with hypercapnia; J96.22 - Acute and chronic respiratory failure with hypercapnia (2) Acute exacerbation of CHF (congestive heart failure) Status: Resolved Assessment and plan: Continue home meds. Qualifiers: Congestive heart failure type: diastolic Qualified Code(s): I50.33 - Acute on chronic diastolic (congestive) heart failure (3) Scrotal edema Status: Chronic Assessment and plan: Supportive care. (4) Afib Status: Chronic Assessment and plan: Known hx of atrial fibrillation - continue anticoagulation - continue current rate control Qualifiers: Atrial fibrillation type: paroxysmal Qualified Code(s): I48.0 - Paroxysmal atrial fibrillation (5) Chronic kidney disease (CKD), stage III (moderate) Status: Chronic Assessment and plan: Supportive care. (6) Diabetes mellitus with neuropathy Status: Chronic Assessment and plan: Home meds. Qualifiers: Diabetes mellitus type: type 2 Diabetes mellitus snf insulin use: with manager long term care use Qualified Code(s): E11.40 - Type 2 diabetes mellitus with diabetic neuropathy, unspecified; Z79.4 - intermediate teacher (current) use of insulin; Z79.4 - intermediate teacher (current) use of insulin; Z79.4 - intermediate teacher (current) use of insulin; Z79.4 - care home (current) use of insulin (7) Essential hypertension Status: Chronic Assessment and plan: Continue home meds. (8) Decubitus ulcer of coccyx, stage 2 Status: Acute - Subjective Interval history: Mr Diaz is currently admitted for respiratory failure. He was to be discharged yesterday and his insisted on SNF. Mr Diaz feels at baseline at this time. His breathing is doing OK. No fever. He insists he is not going to a SNF. He feels he has help at home and he wants to go home. He is competent on exam. - Constitutional Vitals: Temp Pulse Resp BP Pulse Ox 97.8 F 84 16 123/55 96 10/07/17 12:00 10/07/17 12:00 10/07/17 12:00 10/07/17 12:00 10/07/17 12:00 General appearance: Present: A&O X 3, no acute distress - Head Head exam: Present: atraumatic, normocephalic - Eye Eye exam: Present: EOMI, conjuntiva pink - ENT ENT exam: Present: mucous membranes dry - Respiratory Respiratory exam: Present: decreased breath sounds, rhonchi. Absent: wheezes - Cardiovascular Cardiovascular exam: Present: distant heart sounds, irregular rhythm - GI/Abdominal GI/Abdominal exam: Present: soft. Absent: tenderness - Extremities Exam Extremities exam: Present: pedal edema, warm - Neurological Exam Neurological exam: Present: alert, oriented X3 - Skin Skin exam: Present: warm Internal Medicine: Result - Labs CBC & Chem 7: 10/07/17 03:44 10/07/17 03:44 Labs: Short CBC 10/07/17 Range/Units 03:44 WBC 7.8 (4.3-11.1) K/mcL Hgb 8.1 L (12.9-16.9) g/dL Hct 28.0 L (37.5-50.1) % Plt Count 391 (140-400) K/mcL Neutrophils # 6.1 (1.6-8.9) K/mcL BMP 10/07/17 03:44 Sodium 140 Potassium 3.6 Chloride 104 Carbon Dioxide 30 H BUN 30 H Creatinine 1.36 H Glucose 193 H Calcium 8.2 L Liver Function 10/07/17 Range/Units 03:44 Total Bilirubin 0.4 (0.3-1.0) mg/dL AST 12 L (13-39) Units/L ALT 12 (7-52) Units/L Alkaline Phosphatase 86 (34-104) Units/L Albumin 3.1 L (3.5-5.7) g/dL Consult Discharge Plan - Plan Instructions: Heart Failure (DC), Chronic Obstructive Pulmonary Disease (DC) Additional Instructions: follow up with PCP within 3-5 day for post hospital follow up Follow fluid restrictions and sodium restrictions Return to the emergency department if you have recurrence of shortness of breath or any other medical concerns. Referrals: Damian Seymour MD [Primary Care Provider] - (OFFICE IS CLSOED UNTIL Tuesday, PLEASE CALL TUESDAY TO SCHEDULE YOUR HOSPITAL FOLLOW UP )
== END 2017-10-07 15:26 | disposition hospice, home (50) | DRG 291 ==
LOC: EMEROO 14:39 → 2NENU 14:39
PROVIDERS: ADMIT Internal Medicine; ATTEND Internal Medicine

== ENCOUNTER 2017-11-15 00:43 | Inpatient (IN) ==
[2017-11-15 01:32] LABS: Eosinophils % 3.6 %; Immature Granulocytes % 0.4 % (0-4); Mean Corpuscular Hemoglobin 22.5 pg (28.0-33.3)
[2017-11-15 01:33] LABS: Basophils % 0.4 %; Eosinophils # 0.3 K/mcL (0.0-0.6); Hematocrit 30.1 % (37.5-50.1); Hemoglobin 8.5 g/dL (12.9-16.9); Lymphocytes # 0.5 K/mcL (0.6-4.6); Lymphocytes % 5.8 %; Mean Corpuscular HGB Conc 28.2 g/dL (31.6-35.5); Mean Corpuscular Volume 79.6 fL (83.0-100.0); Monocytes # 0.9 K/mcL (0.0-1.3); Monocytes % 11.6 %; Neutrophils # 6.3 K/mcL (1.6-8.9); Nucleated Red Blood Cells 0.4 /100 WBC (0); Platelet Count 404 K/mcL (140-400); Red Blood Count 3.78 M/mcL (4.19-5.50); Red Cell Distribution Width 18.2 % (11.5-14.5); Segmented Neutrophils % 78.2 %
[2017-11-15 01:57] LABS: INR 1.3; Prothrombin Time 14.2 Seconds (9.4-12.1)
[2017-11-15 01:59] LABS: Activated Partial Thrombo Time 31.4 Seconds (26.0-36.0)
--- NOTE | 2017-11-15 01:59 | Emergency Department Note ---
START Narrative - START START: I, Alvarado Zavala DO have provided [id number] time during the care of this patient. Detailed review the presentation, symptoms, medical history were discussed and reviewed with the mid-level provider Sarai Day PA-C/JENNIFER. Medical intervention labs and imaging studies were reviewed in detail. See full documentation of physical exam and course of care in the mid-level provider 's note. I agree with the determined course of care, medical intervention and disposition put forth by the mid-level provider. See below documentation for changes or alterations in documentation. 72-year-old male presents emergency room with what appears to be a syncopal event at home. Patient lives by himself. He got up from his chair to go to bed tonight and does not remember anything after that event. On the floor after hitting his face. Head appears to be atraumatic except for looks like a small abrasion/skin tear to the apex of the nasal bridge. Patient has no tenderness to palpation over the orbital ridges bilaterally. His pupils are reactive. His glucoses.. Trachea is midline. He is slightly somnolent at the bedside evaluation. His lungs are clear heart is irregular consistent with his known atrial fibrillation. Patient does not have any visible signs of trauma to the extremities.. His diminished breath sounds in the right side. Patient currently is on xarelto. Patient will be evaluated for syncopal event and closed head injury while being on a blood thinner. CT of the head and cervical spine along with CBC chemistry, BNP and troponin will be collected. EKG shows stable A. fib. Patient is otherwise showing no acute signs of respiratory decompensation or other injuries. His last tetanus within the last year. He is conversational but somnolent. See detailed documentation of the physical exam, medical intervention, medical decision-making and disposition and the mid- level provider's note. No critical care provider this patient's treatment course at this time 0245 Patient found a right-sided pleural effusion. Labs are otherwise unremarkable. Patient was hypoxic. He did have a syncopal event at home of unknown etiology. Patient will be admitted for definitive management. No other acute pathology noted at this time. Patient is otherwise stable.
[2017-11-15 02:00] LABS: Hypochromasia Present (Not Present); Platelet Estimate Normal (Normal)
[2017-11-15 02:16] LABS: Calcium 8.9 mg/dL (8.6-10.3); Potassium 3.4 mEq/L (3.5-5.1)
--- NOTE | 2017-11-15 02:25 | Emergency Department Note ---
Disposition Clinical Impression: Syncopal episodes Qualifiers: Encounter type: initial encounter Disposition: Admitted As Inpatient Condition: Undetermined General Adult HPI - General Chief complaint: ED Fall Stated complaint: Fall Time Seen by Provider: 11/15/17 00:45 Source: patient Mode of arrival: ambulatory Limitations: no limitations Nursing Notes Reviewed: Yes Vital Signs Reviewed: Yes - History of Present Illness HPI Narrative: Patient presents with EMS after falling while climbing out of bed. Patient states that he remembered being in the bed to stand up and then he woke up on the floor. He denies loss of CONSCIOUSNESS, however he does have a laceration to his nasal septum as well as dried blood to his nostrils. He does not remember if he felt dizzy, lightheaded, and had a syncopal episode. He states he has not been sick recently. He lives alone and functions independently. History includes CHF, hypertension, hyperlipidemia, COPD, diabetes, diabetic foot ulcers, GI bleed, conic kidney disease stage III, previous syncopal episodes, A. fib. Onset (ago): Just [employer] Location: head Pain Scale: 0 Improves with: nothing Worsens with: nothing Associated symptoms: Denies: confusion, chest pain, cough, diaphoresis, fever/ chills, headaches, loss of appetite, malaise, nausea/vomiting, rash, seizure, shortness of breath, syncope, weakness Treatments Prior to Arrival: none - Related Data Home Medications Medication Instructions Recorded Confirmed Aspirin 81 mg PO DAILY 04/28/15 10/04/17 Atorvastatin [Lipitor] 40 mg PO HS 04/28/15 10/04/17 Ferrous Sulfate 325 mg PO BID 04/28/15 10/04/17 Albuterol Sulfate [Proair Hfa] 2 puff IH Q4H PRN 01/25/17 10/04/17 Metoprolol Succinate 200 mg PO DAILY 01/25/17 10/04/17 Oxygen 3 l NS CONT 02/03/17 10/04/17 Insulin LISPRO [HumaLOG] 0 units SQ TIDWM 04/06/17 10/04/17 Spironolactone [Aldactone] 12.5 mg PO DAILY 06/17/17 10/04/17 Ipratropium/Albuterol Neb [Duoneb] 3 ml IH Q4HR PRN 07/01/17 10/04/17 Lactulose 10 gm PO DAILY 08/30/17 10/04/17 Pantoprazole Sodium [Protonix] 40 mg PO DAILY 08/30/17 10/04/17 Sennosides [Senokot] 8.6 mg PO DAILY 08/30/17 10/04/17 SitaGLIPtin [Januvia] 100 mg PO DAILY 08/30/17 10/04/17 Diltiazem CD (24hr) [Cardizem CD] 120 mg PO DAILY 09/20/17 10/04/17 Insulin DETEMIR [Levemir] 35 unit SQ BID 09/20/17 10/04/17 Acetaminophen [Tylenol 650mg SUPP] 650 mg RC Q4HR 10/04/17 10/04/17 Haloperidol 0.5 mg PO Q2H PRN 10/04/17 10/04/17 Hyoscyamine SL [Levsin Sl] 1 - 2 tab SL Q2H PRN 10/04/17 10/04/17 LORazepam [Ativan] 0.5 mg PO TID 10/04/17 10/04/17 Promethazine [Phenergan] 25 mg RC Q6HR PRN 10/04/17 10/04/17 Previous Rx's Medication Instructions Recorded Bumetanide [Bumex] 1 mg PO TID #90 tablet 09/23/17 OxyCODONE Immed Rel [Roxicodone 5 5 mg PO Q6HR PRN #20 tablet 09/23/17 MG] Potassium Chloride 20 meq PO DAILY 30 Days tab.er.prt 09/23/17 Allergies Allergy/AdvReac Type Severity Reaction Status Date / Time bupropion [From Wellbutrin] Allergy Difficulty Verified 06/17/17 00:14 Breathing codeine Allergy Difficulty Verified 06/17/17 00:14 Breathing Opioids-Meperidine and Allergy Difficulty Verified 06/17/17 00:14 Related Breathing [Opioids-Meperidine & Related] All systems ED: reviewed and negative except as stated. Review of Systems: As Per HPI Constitutional: Denies: fever, chills, weakness Eyes: Denies: eye pain, eye discharge, vision change ENT ED: Reports: epistaxis. Denies: ear pain, throat pain, dental pain, hearing loss, congestion, dysphagia Cardiovascular: Denies: chest pain, palpitations, edema, syncope Respiratory: Denies: cough, dyspnea, wheezes, hemoptysis Gastrointestinal: Denies: abdominal pain, nausea, vomiting, diarrhea, constipation Genitourinary: Denies: urgency, dysuria, frequency Musculoskeletal: Denies: back pain Integumentary: Reports: abrasion (Septum of the nose). Denies: rash, lesions Neurological: Denies: headache, weakness, numbness, paresthesias Past Medical History - Past Medical History Attestation: Yes The following information was validated with the patient. Source: patient Medical history: Reports: arthritis, atrial fibrillation, CHF, COPD, diabetes, hyperlipidemia, hypertension, liver disease, renal disease Surgical history: Reports: orthopedic, other, pacemaker/AICD Psychiatric history: Reports: anxiety, depression - Social History Smoking Status: Former smoker Smokeless Tobacco Status: No Alcohol use: Reports: none Drug use: Reports: none Physical Exam - General Limitations: no limitations General appearance: alert - Head Head exam: atraumatic, normocephalic, normal inspection - Eye Eye exam: Present: normal appearance, PERRL, EOMI - ENT ENT exam: mucous membranes moist - Expanded ENT Exam Nose exam: sinus tenderness, laceration - Neck Neck exam: Present: normal inspection, full ROM, trachea midline - Chest Chest inspection: Present: normal inspection, symmetric chest wall rise - Respiratory Respiratory exam: Present: prolonged expiratory phase - Expanded Respiratory Exam Location: decreased breath sounds: Left, Right, Lower - Cardiovascular Cardiovascular exam: Present: regular rate, normal rhythm, normal heart sounds - Abdominal Exam Abdominal exam: Present: Non-Tender, distention, normal bowel sounds. Absent: guarding, rebound, rigidity - Expanded Lower Extremity Exam Gait: not tested/not observed - Neurological Exam Neurological exam: Present: alert, oriented X3, CN II-XII intact - Psychiatric Psychiatric exam: Present: normal affect, normal mood, flat affect - Skin Skin exam: Present: warm, dry, pallor Course Course Narrative: Patient presents with EMS after falling while climbing out of bed. Patient states that he remembered being in the bed to stand up and then he woke up on the floor. He denies loss of CONSCIOUSNESS, however he does have a laceration to his nasal septum as well as dried blood to his nostrils. He does not remember if he felt dizzy, lightheaded, and had a syncopal episode. He states he has not been sick recently. He lives alone and functions independently. History of hypertension, hyperlipidemia, COPD, diabetes, diabetic foot ulcers, GI bleed, conic kidney disease stage III, previous syncopal episodes, A. fib. He is on many medications he does comorbidities. Patient has a known history of syncopal episodes, just as he is well-known to this facility. He does not look well at this time. He is way more subdued and lethargic than normal. He is answering questions appropriately he is alert and oriented 3. He follows commands, however he does not appear to be himself and he looks ill. Exam revealed diminished breath sounds to bilateral lower lobes, abdomen extremely distended, without tenderness. Bilateral lower extremities wrapped them wound care for diabetic ulcers. Patient typically on room air is now requiring 4 L of oxygen to maintain saturation around 94-96%. He was hypoxic upon presentation with the squad with a sat of 77%. Due to patient's multiple comorbidities, hypoxic state we will obtain basic labs as well as head and neck CT, and a chest x-ray. Cause of the fall could be syncopal episode however could be an infectious process as well. - Reevaluation(s) Reevaluation #1: Chest x-ray shows pulmonary edema, labs are pretty close to baseline for patient , CT of the head and neck negative for injury. Patient without any change in his status since previous assessment. Due to comorbidities, pulmonary edema, physical presentation we will admit to the hospitalist team for medical management. Patient is still requiring 4 L of oxygen. When discussing staying with him and he states that he will stay at this time for he knows he needs to. Patient states he does not feel good and is unsure what is going on. We will when hospitalist. Time: 02:45 Reevaluation #2: Dr. Mcgraw except patient under hospitalist services. Dr. Mcgraw discussed having him on a critical floor the management was notified of need for critical floor. Patient will go to the intensive care unit. Patient notified and agreeable. Patient will be transferred accordingly. Assessment has not changed. Patient states that on the side of the bed covered in blankets complaining of being chilly. Vitals have remained consistent. He still is requiring 4 L of oxygen at this time. Time: 03:34 Vital Signs Temperature 97.5 F L 11/15/17 00:59 Pulse Rate 83 11/15/17 00:59 Respiratory Rate 20 11/15/17 00:59 Blood Pressure 118/61 11/15/17 00:59 O2 Sat by Pulse Oximetry 95 11/15/17 00:59 Temperature 97.5 F L 11/15/17 00:59 Pulse Rate 83 11/15/17 00:59 Respiratory Rate 20 11/15/17 00:59 Blood Pressure 118/61 11/15/17 00:59 O2 Sat by Pulse Oximetry 95 11/15/17 01:06 Oxygen Delivery Oxygen Delivery Nasal Cannula Medical Decision Making - Lab Data Result diagrams: 11/15/17 01:15 11/15/17 01:15 Lab Results 11/15/17 11/15/17 11/15/17 Range/Units 01:15 01:15 01:15 WBC 8.0 (4.3-11.1) K/mcL RBC 3.78 L (4.19-5.50) M/mcL Hgb 8.5 L (12.9-16.9) g/dL Hct 30.1 L (37.5-50.1) % MCV 79.6 L (83.0-100.0) fL MCH 22.5 L (28.0-33.3) pg MCHC 28.2 L (31.6-35.5) g/dL RDW 18.2 H (11.5-14.5) % Plt Count 404 H (140-400) K/mcL MPV 9.0 L (9.4-12.4) fL Immature Gran % 0.4 (0-4) % Seg Neutrophils % 78.2 % Lymphocytes % 5.8 % Monocytes % 11.6 % Eosinophils % 3.6 % Basophils % 0.4 % Neutrophils # 6.3 (1.6-8.9) K/mcL Lymphocytes # 0.5 L (0.6-4.6) K/mcL Monocytes # 0.9 (0.0-1.3) K/mcL Eosinophils # 0.3 (0.0-0.6) K/mcL Basophils # 0.0 (0.0-0.2) K/mcL Nucleated RBCs/100 WBC 0.4 H (0) /100 WBC Platelet Estimate Normal (Normal) Hypochromasia Present A (Not Present) PT 14.2 H (9.4-12.1) Seconds INR 1.3 APTT 31.4 (26.0-36.0) Seconds Sodium 139 (136-145) mEq/L Potassium 3.4 L (3.5-5.1) mEq/L Chloride 99 (98-107) mEq/L Carbon Dioxide 30 H (23-29) mEq/L BUN 32 H (8-23) mg/dL Creatinine 1.57 H (0.70-1.30) mg/dL Est GFR ( Amer) 53 L (> 60) Est GFR (Non-Af Amer) 43 L (> 60) BUN/Creatinine Ratio 20 (6-26) Glucose 140 H (70-105) mg/dL Calculated Osmolality 297 (280-300) Lactic Acid (0.5-2.2) mmol/L Calcium 8.9 (8.6-10.3) mg/dL 11/15/17 Range/Units 01:15 WBC (4.3-11.1) K/mcL RBC (4.19-5.50) M/mcL Hgb (12.9-16.9) g/dL Hct (37.5-50.1) % MCV (83.0-100.0) fL MCH (28.0-33.3) pg MCHC (31.6-35.5) g/dL RDW (11.5-14.5) % Plt Count (140-400) K/mcL MPV (9.4-12.4) fL Immature Gran % (0-4) % Seg Neutrophils % % Lymphocytes % % Monocytes % % Eosinophils % % Basophils % % Neutrophils # (1.6-8.9) K/mcL Lymphocytes # (0.6-4.6) K/mcL Monocytes # (0.0-1.3) K/mcL Eosinophils # (0.0-0.6) K/mcL Basophils # (0.0-0.2) K/mcL Nucleated RBCs/100 WBC (0) /100 WBC Platelet Estimate (Normal) Hypochromasia (Not Present) PT (9.4-12.1) Seconds INR APTT (26.0-36.0) Seconds Sodium (136-145) mEq/L Potassium (3.5-5.1) mEq/L Chloride (98-107) mEq/L Carbon Dioxide (23-29) mEq/L BUN (8-23) mg/dL Creatinine (0.70-1.30) mg/dL Est GFR ( Amer) (> 60) Est GFR (Non-Af Amer) (> 60) BUN/Creatinine Ratio (6-26) Glucose (70-105) mg/dL Calculated Osmolality (280-300) Lactic Acid 0.8 (0.5-2.2) mmol/L Calcium (8.6-10.3) mg/dL
[2017-11-15] MEDS ORDERED: Naloxone 0.4 MG/ML INJ IVP PRN (03:32)
[2017-11-15] MEDS ORDERED: *HR* OxyCODONE Immed Rel 5 MG TABLET PO PRN (03:41)
[2017-11-15] MEDS ORDERED: Ipratropium/Albuterol Neb 3 ML IH PRN (03:41)
[2017-11-15] MEDS ORDERED: NON-FORMULARY MEDICATION 1 EACH EACH (Oxygen [Oxygen] 3 L) NS SCH (03:45)
[2017-11-15] MEDS ORDERED: 0.9 % Sodium Chloride 1,000 ML IVC SCH (03:45)
--- NOTE | 2017-11-15 03:50 | Internal Med History&Physical ---
Date of Encounter: 11/15/17 Time of Encounter: 03:49 Assessment and Plan (1) Syncope Current visit: Yes Status: Acute Patient had a syncopal episode. Patient had a fall and nasal laceration. With the compression patient's nasal laceration/bleeding is under very well controlled. ENT was consulted as patient was concern about his nasal bridge bleeding. Imaging does not show any fracture. Likely cause of syncope his underlying COPD exacerbation. Plan: Management of COPD exacerbation. ENT evaluation for nasal bridge bleeding Hold Xarelto as there is a new bleeding noted. SCD for DVT prophylaxis. Once the bleeding is completely stop then Xarelto can be restarted. I examined this patient in ICU #8. Plan of care explained to the patient. Qualifiers: Syncope type: unspecified Qualified Code(s): R55 - Syncope and collapse (2) Pneumonia Current visit: Yes Status: Acute Possibility of early development of pneumonia cannot be ruled out. We will continue ceftriaxone/azithromycin. Qualifiers: Pneumonia type: due to unspecified organism Laterality: bilateral Lung location: unspecified part of lung Qualified Code(s): J18.9 - Pneumonia, unspecified organism (3) COPD exacerbation Current visit: Yes Status: Acute Patient does have a COPD exacerbation. We will treat with ceftriaxone/azithromycin. We will give intravenous or limit her 40 mg every 8 hours. We will get patient inhaled bronchodilators every 4 hours. (4) CHERRIE (acute kidney injury) Current visit: Yes Status: Acute Patient's creatinine is 1.5. This is a little worse than his baseline. Patient will get benefit from IV fluids (5) Afib Current visit: No Status: Chronic Patient is known to have atrial fibrillation. Patient's rate control is with metoprolol/Cardizem. Patient's anticoagulation is awake Xarelto. At this point Xarelto is on hold because of the nasal bridge laceration/bleeding Qualifiers: Atrial fibrillation type: paroxysmal Qualified Code(s): I48.0 - Paroxysmal atrial fibrillation (6) Cirrhosis Current visit: No Status: Chronic Patient is known to have a cirrhosis of liver. Patient has a elevated a bowel movement. Patient has a follow-up with GI. Qualifiers: Hepatic cirrhosis type: unspecified hepatic cirrhosis Ascites presence: with ascites Qualified Code(s): K74.60 - Unspecified cirrhosis of liver (7) Diabetes mellitus Current visit: No Status: Chronic Patient is known to have a type 2 diabetes mellitus. Patient is presently on insulin. We will follow the directions from the [facility] insulin order set. 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 We will resume all his antihypertensive medications. (9) Morbid obesity with BMI of 40.0-44.9, adult Current visit: No Status: Chronic Patient is morbidly obese. Patient's BMI is 43. Patient will get beneficial advantage from outpatient bariatric surgery. (10) DVT prophylaxis Current visit: No Status: Acute SCD Patient takes Xarelto as anticoagulation for Afib In view of recent nasal bridge laceration his Xarelto Internal Medicine - H&P: HPI Chief complaint: Syncopal event Admitted From: Emergency Dept Plans for Post Hospital Care: Home History of present illness: PCP: Dr. Damian Seymour Brief past medical history: Diabetes, hypertension, hyperlipidemia, chronic liver disease, CKD stage III, atrial fibrillation on Xarelto, has a AICD/ pacemaker, known to have a congestive heart failure, bilateral lower limb cellulitis. History of present medical illness: Patient uses home by himself. Patient came to emergency room as he had a multiple episodes of syncopal/presyncopal event. Patient was able to get up from the bed by himself and at that time he felt dizzy and he had a fall. Patient had a small laceration over his nasal area and he had a profuse bleeding from the same. In the emergency room the bleeding was controlled. Patient was comfortable after the bleeding was controlled. Patient denies chest pain, nausea, vomiting, abdominal pain or diarrhea. Workup in the emergency room: Patient was evaluated in the emergency room. Acute/profuse bleeding from the laceration over the nasal bridge was managed with the help of pressure compression technique. Imaging of the head CAD/ cervical spine CT was negative for any acute fracture. Patient is very concerned about this bleeding. Chest x-ray was suggestive of possibility of early development of pneumonia. Reason for admission: Syncopal/presyncopal event secondary to possibly underlying pneumonia in a patient who has multiple comorbid conditions. Family history: Noncontributory Past Med Surg Social Fam HX - Past Medical History Medical history: arthritis, atrial fibrillation, CHF, COPD, diabetes, hyperlipidemia, hypertension, liver disease, renal disease Psychiatric history: anxiety, depression - Past Surgical History Surgical History: orthopedic, other, pacemaker/AICD - Social History Smoking Status: Former smoker Smokeless Tobacco Status: No Alcohol use: none Drug use: none - Family History Father Hx Family Cardiac Disorders: Yes (Triple Bypass) Hx Family Endocrine Disorder: Yes (DM) Mother Family Member Ethnicity: Non- Living Status: Internal Medicine - H&P: Meds Aspirin 81 mg PO DAILY 04/28/15 [History] Atorvastatin [Lipitor] 40 mg PO HS 04/28/15 [History] Ferrous Sulfate 325 mg PO BID 04/28/15 [History] Albuterol Sulfate [Proair Hfa] 2 puff IH Q4H PRN 01/25/17 [History] Metoprolol Succinate 200 mg PO DAILY 01/25/17 [History] Oxygen 3 l NS CONT 02/03/17 [History] Insulin LISPRO [HumaLOG] 0 units SQ TIDWM 04/06/17 [History] Spironolactone [Aldactone] 12.5 mg PO DAILY 06/17/17 [History] Ipratropium/Albuterol Neb [Duoneb] 3 ml IH Q4HR PRN 07/01/17 [History] Lactulose 10 gm PO DAILY 08/30/17 [History] Pantoprazole Sodium [Protonix] 40 mg PO DAILY 08/30/17 [History] Sennosides [Senokot] 8.6 mg PO DAILY 08/30/17 [History] SitaGLIPtin [Januvia] 100 mg PO DAILY 08/30/17 [History] Diltiazem CD (24hr) [Cardizem CD] 120 mg PO DAILY 09/20/17 [History] Insulin DETEMIR [Levemir] 35 unit SQ BID 09/20/17 [History] Bumetanide [Bumex] 1 mg PO TID #90 tablet 09/23/17 [Rx] OxyCODONE Immed Rel [Roxicodone 5 MG] 5 mg PO Q6HR PRN #20 tablet 09/23/17 [Rx] Potassium Chloride 20 meq PO DAILY 30 Days tab.er.prt 09/23/17 [Rx] Acetaminophen [Tylenol 650mg SUPP] 650 mg RC Q4HR 10/04/17 [History] Haloperidol 0.5 mg PO Q2H PRN 10/04/17 [History] Hyoscyamine SL [Levsin Sl] 1 - 2 tab SL Q2H PRN 10/04/17 [History] LORazepam [Ativan] 0.5 mg PO TID 10/04/17 [History] Promethazine [Phenergan] 25 mg RC Q6HR PRN 10/04/17 [History] 3 Allergy/AdvReac Type Severity Reaction Status Date / Time bupropion [From Wellbutrin] Allergy Difficulty Verified 06/17/17 00:14 Breathing codeine Allergy Difficulty Verified 06/17/17 00:14 Breathing Opioids-Meperidine and Allergy Difficulty Verified 06/17/17 00:14 Related Breathing [Opioids-Meperidine & Related] All Systems PM: A 10-system review of systems was performed and is negative for pertinent findings except as documented above in the HPI. - Constitutional Constitutional: fatigue, falls, lethargy, malaise, no chills, no fever(s), no night sweats - EENT Eyes: no change in vision, no discharge, no pain, no photophobia Ears: no ear discharge, no ear pain, no tinnitus Nose, mouth and throat: no dysphagia, no nasal discharge, no neck pain, no sore throat - Cardiovascular Cardiovascular ROS IM: no chest pain, no diaphoresis, no dyspnea, no lightheadedness, no palpitations, no syncope - Respiratory Respiratory: no cough, no dyspnea, no wheezing, no excessive phlegm production - Gastrointestinal Gastrointestinal: no abdominal pain, no diarrhea, no hematemesis, no hematochezia, no melena, no nausea, no vomiting - Musculoskeletal Musculoskeletal ROS IM: no numbness, no tingling - Integumentary Integumentary IM: no rash, no unusual bruising - Neurological Neurological ROS: no confusion, no convulsions, no focal weakness, no numbness, no tingling, no tremor(s) - Hematologic/Lymphatic Hematologic/Lymphatic: no easy bruising - Constitutional Vitals: Temp Pulse Resp BP Pulse Ox 97.5 F L 78 22 136/114 97 11/15/17 00:59 11/15/17 03:09 11/15/17 03:09 11/15/17 03:09 11/15/17 03:09 General appearance: Present: A&O X 3, pleasant, no acute distress, answers questions appropriately - Head Head exam: Present: atraumatic, normocephalic - Eye Eye exam: Present: PERRL, conjuntiva pink, sclera anicteric Pupils: Present: PERRL - Neck Neck exam general surgery: Present: supple, trachea midline. Absent: lymphadenopathy - Respiratory Respiratory exam: Present: CTAB. Absent: accessory muscle use, rales, rhonchi, wheezes - Cardiovascular Cardiovascular exam: Present: RRR, +S1, +S2. Absent: diastolic murmur, gallop, rubs, systolic murmur - GI/Abdominal GI/Abdominal exam: Present: normal bowel sounds, soft, no peritoneal signs. Absent: distended, tenderness - Extremities Exam Extremities exam: Present: warm, radial pulses palpable and symmetrical. Absent : calf tenderness, cyanotic, pedal edema - Neurological Exam Neurological exam: Present: CN II-XII intact, oriented X3, no focal deficits. Absent: pronater drift, facial droop, speech deficit - Skin Skin exam: Present: dry, intact Internal Med - H&P Results - Labs CBC & Chem 7: 11/15/17 04:25 11/15/17 04:25
[2017-11-15] MEDS ORDERED: Acetaminophen 650 MG RECTAL SUPP RC SCH (04:00)
[2017-11-15 04:52] LABS: INR 1.3; Prothrombin Time 14.2 Seconds (9.4-12.1)
[2017-11-15 04:53] LABS: Basophils % 0.6 %
[2017-11-15 04:55] LABS: Activated Partial Thrombo Time 30.4 Seconds (26.0-36.0); Basophils # 0.1 K/mcL (0.0-0.2); Eosinophils # 0.3 K/mcL (0.0-0.6); Eosinophils % 3.8 %; Hemoglobin 8.5 g/dL (12.9-16.9); Immature Granulocytes % 0.4 % (0-4); Lymphocytes # 0.5 K/mcL (0.6-4.6); Lymphocytes % 6.2 %; Mean Corpuscular HGB Conc 29.3 g/dL (31.6-35.5); Mean Corpuscular Volume 78.4 fL (83.0-100.0); Mean Platelet Volume 9.2 fL (9.4-12.4); Monocytes % 12.2 %; Neutrophils # 6.2 K/mcL (1.6-8.9); Platelet Count 376 K/mcL (140-400); Red Cell Distribution Width 17.9 % (11.5-14.5); Segmented Neutrophils % 76.8 %
[2017-11-15] MEDS: cefTRIAXone 1,000 MG in Water for inj. (sterile) 20 ML 10 ML IVPB SCH (04:59)
[2017-11-15] MEDS: Azithromycin 500 MG in D5% in Water 250 ML IVPB SCH (05:04)
[2017-11-15 05:08] LABS: Albumin 3.5 g/dL (3.5-5.7); Albumin/Globulin Ratio 0.9 (1.1-2.2); Bilirubin,Total 0.6 mg/dL (0.3-1.0); Calcium 8.9 mg/dL (8.6-10.3); Chol/HDL Ratio 4.5 (0-4.9); Globulin 3.9 g/dL (2.4-3.5); Magnesium 2.4 mg/dL (1.6-2.6); Phosphorous 4.1 mg/dL (2.7-4.5); Potassium 3.5 mEq/L (3.5-5.1); Total Protein 7.4 g/dL (6.4-8.9)
[2017-11-15 05:47] LABS: Anisocytosis 1+ (Not Present); Hypochromasia Present (Not Present); Platelet Estimate Normal (Normal); Poikilocytosis 1+ (Not Present)
[2017-11-15] MEDS ORDERED: MethylPREDNISolone 40 MG/ML VIAL IVP SCH (08:00)
[2017-11-15] MEDS ORDERED: Lidocaine/EPI 1:100k 1% 20 ML VIAL ONE (08:14)
--- NOTE | 2017-11-15 08:30 | Event Note ---
Date of Encounter: 11/15/17 Time of Encounter: 08:28 Patient was seen and evaluated the bedside for possible suture of the nasal dorsum. Patient with abrasion of the superior dorsum after fall. This area is slightly crusted with dried blood 2 distinct abrasions measuring approximately 3 mm each. No active bleeding at this time. This appears to be just in preparation across the dorsum of the nose and does not appear to require repair. Patient's nasal bones appear symmetric on palpation as well. This was discussed with the hospitalist service at the bedside. Will defer formal consult his ENT intervention is not needed at this time and hospitalist does agree with this.
[2017-11-15] MEDS ORDERED: *HR* SitaGLIPtin 100 MG TABLET PO SCH (09:00)
[2017-11-15] MEDS ORDERED: NON-FORMULARY MEDICATION 1 EACH EACH (Insulin Detemir 35 UNIT) SQ SCH (09:00)
[2017-11-15] MEDS: Insulin DETEMIR 100 UNIT/ML X5UNITS SQ SCH ×2 (09:09→21:48)
[2017-11-15] MEDS: Spironolactone 25 MG TABLET PO SCH (09:13)
[2017-11-15] MEDS: Aspirin 81 MG TAB.CHEW PO SCH (09:14)
[2017-11-15] MEDS: Diltiazem CD (24hr) 120 MG CAPSULE PO SCH (09:14)
[2017-11-15] MEDS: Insulin LISPRO 300 UNITS/3 ML VIAL SQ SCH ×3 (09:14→16:56)
[2017-11-15 09:16] LABS: ABG Base Excess 7 mEq/L (-2 to 3); ABG HCO3 31 mEq/L (21-27); ABG Oxygen Saturation 94 % (95-98); ABG PCO2 43 mmHg (35-45); ABG PH 7.47 pH Units (7.32-7.45); ABG PO2 67 mmHg (85-104); ABG TCO2 32 mEq/L (20-26)
--- NOTE | 2017-11-15 09:30 | Event Note ---
<Jarad Correa - Last Filed: 11/15/17 09:24> Date of Encounter: 11/15/17 Time of Encounter: 09:24 Patient seen and examined at bedside. Patient is somewhat sleepy but otherwise has no complaints. He states that he is hungry. He states that he is breathing just fine. He denies shortness of breath, cough, congestion. On physical exam the patient is somewhat somnolent but easily arousable and will answer questions appropriately. His heart is regular rate and rhythm with no murmurs, rubs, gallops. Lungs sounds are diminished but no rales, rhonchi, wheezes are noted. He does have 1+ lower extremity edema bilaterally Assessment and plan: Syncope: Possibly related to COPD exacerbation. CT of the head was negative, patient recently had an echo in April that was unremarkable. Continue cardiac telemetry, will obtain bilateral carotid duplex. Acute exacerbation of COPD: Continue IV steroids, wheezing has resolved therefore will decrease steroids to Solu-Medrol 40 mg IV every 12. Continue bronchodilators and antibiotics. <Naresh Baldwin - Last Filed: 11/15/17 18:12> Date of Encounter: 11/15/17 Pt admitted earlier today with acute syncopal episode. Has been admitted with syncope and COPD exacerbation. Currently doing somewhat better. No wheeze at this time Agree with above assessment and plan.
[2017-11-15] MEDS: Bumetanide 1 MG TABLET PO SCH ×3 (09:47→20:27)
[2017-11-15] MEDS: Metoprolol XL (24 HR) Succ 50 MG TAB.ER.24H PO SCH (10:03)
[2017-11-15] MEDS: MethylPREDNISolone 40 MG/ML VIAL IVP SCH (16:56)
--- NOTE | 2017-11-15 17:22 | Electrocardiograph Report ---
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
[2017-11-16] MEDS: MethylPREDNISolone 40 MG/ML VIAL IVP SCH (05:22)
[2017-11-16] MEDS: cefTRIAXone 1,000 MG in Water for inj. (sterile) 20 ML 10 ML IVPB SCH (05:22)
[2017-11-16] MEDS: Azithromycin 500 MG in D5% in Water 250 ML IVPB SCH (05:23)
[2017-11-16 05:54] LABS: Mean Corpuscular Hemoglobin 22.3 pg (28.0-33.3); Red Cell Distribution Width 17.7 % (11.5-14.5)
[2017-11-16 05:55] LABS: Hematocrit 28.5 % (37.5-50.1); Immature Granulocytes % 0.7 % (0-4); Lymphocytes # 0.3 K/mcL (0.6-4.6); Lymphocytes % 4.6 %; Mean Corpuscular HGB Conc 28.1 g/dL (31.6-35.5); Mean Corpuscular Volume 79.6 fL (83.0-100.0); Mean Platelet Volume 9.3 fL (9.4-12.4); Monocytes # 0.3 K/mcL (0.0-1.3); Monocytes % 3.9 %; Neutrophils # 6.1 K/mcL (1.6-8.9); Platelet Count 375 K/mcL (140-400); Red Blood Count 3.58 M/mcL (4.19-5.50); Segmented Neutrophils % 90.8 %
[2017-11-16 06:17] LABS: Calcium 8.9 mg/dL (8.6-10.3); Magnesium 2.3 mg/dL (1.6-2.6); Potassium 3.7 mEq/L (3.5-5.1)
[2017-11-16 06:18] LABS: Anisocytosis 1+ (Not Present); Microcytosis Present (Not Present); Platelet Estimate Normal (Normal)
[2017-11-16] MEDS: Diltiazem CD (24hr) 120 MG CAPSULE PO SCH (07:41)
[2017-11-16] MEDS: Aspirin 81 MG TAB.CHEW PO SCH (07:41)
[2017-11-16] MEDS: Bumetanide 1 MG TABLET PO SCH ×3 (07:42→17:24)
[2017-11-16] MEDS: Metoprolol XL (24 HR) Succ 50 MG TAB.ER.24H PO SCH (07:42)
[2017-11-16] MEDS: Spironolactone 25 MG TABLET PO SCH (07:42)
[2017-11-16] MEDS: Insulin LISPRO 300 UNITS/3 ML VIAL SQ SCH ×6 (07:52→21:21)
[2017-11-16] MEDS: Insulin DETEMIR 100 UNIT/ML X5UNITS SQ SCH ×2 (07:53→21:22)
[2017-11-16] MEDS ORDERED: *HR* LORazepam 1 MG TABLET PO PRN (09:23)
[2017-11-16] MEDS ORDERED: *HR* Dextrose 50 % in Water (Syg) 50 ML SYRINGE IVP PRN (09:48)
[2017-11-16] MEDS ORDERED: Dextrose Gel 15 GM/37.5 ML TUBE PO PRN ×2 (09:48)
[2017-11-16] MEDS ORDERED: D5% in Water 1,000 ML IVC PRN (09:48)
--- NOTE | 2017-11-16 10:25 | Internal Med Progress Note ---
<Jarad Correa - Last Filed: 11/16/17 10:22> Date of Encounter: 11/16/17 Time of Encounter: 10:22 - Assessment and plan (1) Acute exacerbation of chronic obstructive airways disease Current Visit: No Status: Acute Assessment and plan: Patient appears to be improving. Symptomatically he states he feels much better. We will discontinue azithromycin given his prolonged QT. Continue with Rocephin, day 2. We will transition to oral prednisone today. (2) Syncope Current Visit: Yes Status: Acute Assessment and plan: Likely related to hypoxia and COPD exacerbation. Syncope workup was unremarkable including carotid duplex. Qualifiers: Syncope type: unspecified Qualified Code(s): R55 - Syncope and collapse (3) Chronic respiratory failure Current Visit: No Status: Chronic Assessment and plan: Patient reports intermittent oxygen use at home and he is unsure if he is supposed to wear oxygen 24 7. I suspect that does require oxygen around the clock. Continue oxygen therapy while admitted, we will complete 6 minute walk test tomorrow. Qualifiers: Respiratory failure complication: hypoxia Qualified Code(s): J96.11 - Chronic respiratory failure with hypoxia (4) Congestive heart failure Current Visit: No Status: Acute Assessment and plan: No evidence of acute exacerbation. Continue Bumex. Qualifiers: Qualified Code(s): I50.33 - Acute on chronic diastolic (congestive) heart failure (5) Essential hypertension Current Visit: No Status: Chronic Assessment and plan: Blood pressure stable. Continue home medications. (6) Anemia Current Visit: No Status: Chronic Assessment and plan: Stable. No evidence of active bleeding. Patient is on iron supplementation, will check iron panel morning. Qualifiers: Anemia type: unspecified type Qualified Code(s): D64.9 - Anemia, unspecified (7) Sleep apnea with use of continuous positive airway pressure (CPAP) Current Visit: No Status: Chronic Assessment and plan: Continue CPAP at night. (8) Type 2 diabetes mellitus Current Visit: No Status: Chronic Assessment and plan: Blood sugars are elevated despite his home Levemir and mealtime dosing, will add sliding scale insulin and adjust based on blood sugar readings. Qualifiers: Diabetes mellitus complication status: with hyperglycemia Diabetes mellitus fdc insulin use: with fdc use Qualified Code(s): E11.65 - Type 2 diabetes mellitus with hyperglycemia; Z79.4 - long term care social worker (current) use of insulin; Z79.4 - group home (current) use of insulin; Z79.4 - long term care social worker ( current) use of insulin; Z79.4 - group home (current) use of insulin (9) CKD (chronic kidney disease) stage 3, GFR 30-59 ml/min Current Visit: Yes Status: Acute Assessment and plan: Creatinine at baseline. Continue to monitor. - Subjective Interval history: Patient seen and examined at bedside. Patient states that he feels much better today. He feels like his breathing is improved. He denies any chest pain, shortness of breath, cough. - Constitutional Vitals: Temp Pulse Resp BP Pulse Ox 98.2 F 86 16 128/70 94 11/16/17 07:00 11/16/17 07:00 11/16/17 07:00 11/16/17 07:00 11/16/17 07:59 General appearance: Present: A&O X 3, pleasant, no acute distress, answers questions appropriately - Respiratory Respiratory exam: Present: CTAB. Absent: rales, rhonchi, wheezes - Cardiovascular Cardiovascular exam: Present: RRR. Absent: gallop, rubs, systolic murmur - GI/Abdominal GI/Abdominal exam: Present: normal bowel sounds, soft. Absent: distended, tenderness - Neurological Exam Neurological exam: Present: alert, CN II-XII intact, oriented X3, no focal deficits Internal Medicine: Result - Labs CBC & Chem 7: 11/16/17 05:32 11/16/17 05:32 Labs: Short CBC 11/16/17 Range/Units 05:32 WBC 6.7 (4.3-11.1) K/mcL Hgb 8.0 L (12.9-16.9) g/dL Hct 28.5 L (37.5-50.1) % Plt Count 375 (140-400) K/mcL Neutrophils # 6.1 (1.6-8.9) K/mcL BMP 11/16/17 05:32 Sodium 136 Potassium 3.7 Chloride 98 Carbon Dioxide 29 BUN 32 H Creatinine 1.55 H Glucose 309 H Calcium 8.9 Cardiac Enzymes 11/15/17 11/15/17 Range/Units 10:38 15:36 Troponin I < 0.03 < 0.03 (< 0.04) ng/mL - ABG Interpretation ABG results: ABG ABG pH 7.47 pH Units (7.32-7.45) H 11/15/17 09:13 ABG pCO2 43 mmHg (35-45) 11/15/17 09:13 ABG pO2 67 mmHg (85-104) L 11/15/17 09:13 ABG O2 Saturation 94 % (95-98) L 11/15/17 09:13 PT/INR, D-dimer PT 14.2 Seconds (9.4-12.1) H 11/15/17 04:25 - VTE Documentation of Mechanical Device: Graduated compression elastic hosiery Consult Discharge Plan - Plan Referrals: Damian Seymour MD [Primary Care Provider] - <Naresh Baldwin - Last Filed: 11/16/17 17:33> Date of Encounter: 11/16/17 - Assessment and plan (1) Acute and chronic respiratory failure Current Visit: No Status: Acute Assessment and plan: Pt remains on 4 liters. Weaning as able. Qualifiers: Respiratory failure complication: hypoxia Qualified Code(s): J96.21 - Acute and chronic respiratory failure with hypoxia (2) Acute exacerbation of CHF (congestive heart failure) Current Visit: No Status: Acute Qualifiers: Heart failure type: diastolic Qualified Code(s): I50.33 - Acute on chronic diastolic (congestive) heart failure (3) COPD exacerbation Current Visit: Yes Status: Acute (4) Syncope Current Visit: Yes Status: Resolved Qualifiers: Syncope type: unspecified Qualified Code(s): R55 - Syncope and collapse (5) Essential hypertension Current Visit: No Status: Chronic (6) CKD (chronic kidney disease) stage 3, GFR 30-59 ml/min Current Visit: Yes Status: Acute (7) Diabetes mellitus Current Visit: No Status: Chronic Qualifiers: Diabetes mellitus type: type 2 Diabetes mellitus complication status: with circulatory complication Diabetes mellitus complication detail: with other circulatory complications Diabetes mellitus fdc insulin use: with fdc use Qualified Code(s): E11.59 - Type 2 diabetes mellitus with other circulatory complications; Z79.4 - group home (current) use of insulin; Z79.4 - group home (current) use of insulin; Z79.4 - group home (current) use of insulin; Z79.4 - long term care social worker (current) use of insulin - Constitutional Vitals: Temp Pulse Resp BP Pulse Ox 96.6 F L 88 17 159/64 98 11/16/17 10:26 11/16/17 10:26 11/16/17 10:26 11/16/17 10:26 11/16/17 10:26 Internal Medicine: Result - Labs CBC & Chem 7: 11/16/17 05:32 11/16/17 05:32 Labs: Short CBC 11/16/17 Range/Units 05:32 WBC 6.7 (4.3-11.1) K/mcL Hgb 8.0 L (12.9-16.9) g/dL Hct 28.5 L (37.5-50.1) % Plt Count 375 (140-400) K/mcL Neutrophils # 6.1 (1.6-8.9) K/mcL BMP 11/16/17 05:32 Sodium 136 Potassium 3.7 Chloride 98 Carbon Dioxide 29 BUN 32 H Creatinine 1.55 H Glucose 309 H Calcium 8.9 - ABG Interpretation ABG results: ABG ABG pH 7.47 pH Units (7.32-7.45) H 11/15/17 09:13 ABG pCO2 43 mmHg (35-45) 11/15/17 09:13 ABG pO2 67 mmHg (85-104) L 11/15/17 09:13 ABG O2 Saturation 94 % (95-98) L 11/15/17 09:13 PT/INR, D-dimer PT 14.2 Seconds (9.4-12.1) H 11/15/17 04:25 - Attending Attestation I examined this patient and my medical decision-making was reviewed with the Resident Physician on 11/16/17. I agree with the documented findings, disposition and treatment plan as described except to the extent set forth below. Mr Diaz is currently admitted for acute exac COPD and syncope. He remains moderate to high risk due to potential for worsening clinical status. Mr Diaz is feeling a little better today. No fever or chills. His breathing has improved some but not near baseline. No further episodes of syncope or near syncope. Exam alert Comfortable Mucus membranes dry Heart distant No wheeze at this time Edema noted I/P 1. Exac COPD 2. Syncope Further diagnoses and plan as above.
[2017-11-16] MEDS ORDERED: Furosemide 20 MG/2 ML VIAL IVP ONE (14:29)
[2017-11-17] MEDS: cefTRIAXone 1,000 MG in Water for inj. (sterile) 20 ML 10 ML IVPB SCH (04:28)
[2017-11-17 04:48] LABS: Basophils % 0.1 %; Eosinophils % 0.1 %
[2017-11-17 04:50] LABS: Hematocrit 27.2 % (37.5-50.1); Hemoglobin 7.9 g/dL (12.9-16.9); Immature Granulocytes % 0.4 % (0-4); Lymphocytes # 0.4 K/mcL (0.6-4.6); Lymphocytes % 3.7 %; Mean Corpuscular Hemoglobin 22.6 pg (28.0-33.3); Mean Corpuscular Volume 77.9 fL (83.0-100.0); Mean Platelet Volume 9.3 fL (9.4-12.4); Monocytes # 1.1 K/mcL (0.0-1.3); Monocytes % 9.9 %; Platelet Count 409 K/mcL (140-400); Red Blood Count 3.49 M/mcL (4.19-5.50); Red Cell Distribution Width 17.9 % (11.5-14.5); Segmented Neutrophils % 85.8 %
[2017-11-17 05:11] LABS: % Iron Saturation 4 % (20-55); Iron 15 mcg/dL (65-175); Transferrin 293 mg/dL (203-362)
[2017-11-17 05:12] LABS: Calcium 9.1 mg/dL (8.6-10.3); Magnesium 2.4 mg/dL (1.6-2.6); Potassium 3.6 mEq/L (3.5-5.1)
[2017-11-17 05:15] LABS: Neutrophils # 9.5 K/mcL (1.6-8.9)
[2017-11-17 05:50] LABS: Anisocytosis 1+ (Not Present); Hypochromasia Present (Not Present); Poikilocytosis 1+ (Not Present)
[2017-11-17 05:51] LABS: Microcytosis Present (Not Present)
[2017-11-17] MEDS ORDERED: Azithromycin 250 MG TABLET PO SCH (08:00)
[2017-11-17] MEDS: Metoprolol XL (24 HR) Succ 50 MG TAB.ER.24H PO SCH (08:01)
[2017-11-17] MEDS: Spironolactone 25 MG TABLET PO SCH (08:01)
[2017-11-17] MEDS: Diltiazem CD (24hr) 120 MG CAPSULE PO SCH (08:01)
[2017-11-17] MEDS: Bumetanide 1 MG TABLET PO SCH ×3 (08:01→16:31)
[2017-11-17] MEDS: Aspirin 81 MG TAB.CHEW PO SCH (08:01)
[2017-11-17] MEDS: predniSONE 20 MG TABLET PO SCH (08:02)
[2017-11-17] MEDS: Insulin LISPRO 300 UNITS/3 ML VIAL SQ SCH ×7 (08:02→20:57)
[2017-11-17] MEDS: Lactulose Oral Soln 20 GM/30 ML UDC PO SCH (08:02)
[2017-11-17] MEDS: Insulin DETEMIR 100 UNIT/ML X5UNITS SQ SCH ×2 (08:02→20:58)
[2017-11-17] MEDS: Silvasorb 44.4 ML TUBE TP SCH (16:34)
--- NOTE | 2017-11-17 18:54 | Internal Med Progress Note ---
Date of Encounter: 11/17/17 Time of Encounter: 14:00 - Assessment and plan (1) Acute and chronic respiratory failure Current Visit: No Status: Acute Assessment and plan: Pt remains on 4 liters. Weaning as able. He feels he is slowly improving. Qualifiers: Respiratory failure complication: hypoxia Qualified Code(s): J96.21 - Acute and chronic respiratory failure with hypoxia (2) Acute exacerbation of CHF (congestive heart failure) Current Visit: No Status: Acute Assessment and plan: Slowly improving. Will continue current management at this time. Qualifiers: Heart failure type: diastolic Qualified Code(s): I50.33 - Acute on chronic diastolic (congestive) heart failure (3) COPD exacerbation Current Visit: Yes Status: Resolved Assessment and plan: Breathing has slowly been improving. Will continue current treatment. Anticipate d/c tomorrow. (4) Syncope Current Visit: Yes Status: Resolved Assessment and plan: Likely related to hypoxia and COPD exacerbation. Resolved. Qualifiers: Syncope type: unspecified Qualified Code(s): R55 - Syncope and collapse (5) Essential hypertension Current Visit: No Status: Chronic Assessment and plan: Blood pressure stable. Continue home medications. (6) CKD (chronic kidney disease) stage 3, GFR 30-59 ml/min Current Visit: Yes Status: Chronic Assessment and plan: Creatinine at baseline. Continue to monitor. (7) Diabetes mellitus Current Visit: No Status: Chronic Assessment and plan: Continue monitor glucose and treat. Qualifiers: Diabetes mellitus type: type 2 Diabetes mellitus complication status: with circulatory complication Diabetes mellitus complication detail: with other circulatory complications Diabetes mellitus skilled nursing insulin use: with rat exterminator use Qualified Code(s): E11.59 - Type 2 diabetes mellitus with other circulatory complications; Z79.4 - [facility] (current) use of insulin; Z79.4 - [facility] (current) use of insulin; Z79.4 - [facility] (current) use of insulin; Z79.4 - moth exterminator (current) use of insulin (8) GRAZYNA (obstructive sleep apnea) Current Visit: No Status: Chronic Assessment and plan: Chronic issue. - Subjective Interval history: Mr Diaz is currently admitted for syncope and COPD exac. He remains moderate to high risk due to potential for worsening clinical status. Mr Diaz is beginning to feel somewhat better. He is breathing better today. Still has a lot of edema. No CP. No fever or chills. - Constitutional Vitals: Temp Pulse Resp BP Pulse Ox 98.3 F 74 18 135/70 97 11/17/17 18:37 11/17/17 18:37 11/17/17 18:37 11/17/17 18:37 11/17/17 18:37 General appearance: Present: A&O X 3, morbidly obese, pleasant, answers questions appropriately - Head Head exam: Present: normocephalic - Eye Eye exam: Present: conjuntiva pink - ENT ENT exam: Present: mucous membranes dry - Respiratory Respiratory exam: Present: decreased breath sounds, rhonchi. Absent: rales - Cardiovascular Cardiovascular exam: Present: distant heart sounds. Absent: tachycardia - GI/Abdominal GI/Abdominal exam: Present: soft. Absent: tenderness - Extremities Exam Extremities exam: Present: warm Additional comments: Edema present. Stasis dermatitis noted. - Neurological Exam Neurological exam: Present: alert, oriented X3 - Skin Skin exam: Present: erythema, warm Internal Medicine: Result - Labs CBC & Chem 7: 11/17/17 04:10 11/17/17 04:10 Labs: Short CBC 11/17/17 Range/Units 04:10 WBC 11.1 D (4.3-11.1) K/mcL Hgb 7.9 L (12.9-16.9) g/dL Hct 27.2 L (37.5-50.1) % Plt Count 409 H (140-400) K/mcL Neutrophils # 9.5 H (1.6-8.9) K/mcL BMP 11/17/17 04:10 Sodium 136 Potassium 3.6 Chloride 98 Carbon Dioxide 29 BUN 34 H Creatinine 1.41 H Glucose 173 H Calcium 9.1 - ABG Interpretation ABG results: ABG ABG pH 7.47 pH Units (7.32-7.45) H 11/15/17 09:13 ABG pCO2 43 mmHg (35-45) 11/15/17 09:13 ABG pO2 67 mmHg (85-104) L 11/15/17 09:13 ABG O2 Saturation 94 % (95-98) L 11/15/17 09:13 PT/INR, D-dimer PT 14.2 Seconds (9.4-12.1) H 11/15/17 04:25 - VTE Documentation of Mechanical Device: Graduated compression elastic hosiery Consult Discharge Plan - Plan Referrals: Damian Seymour MD [Primary Care Provider] - (possible placement)
[2017-11-18 04:18] LABS: Mean Platelet Volume 9.5 fL (9.4-12.4)
[2017-11-18 04:20] LABS: Hematocrit 28.5 % (37.5-50.1); Hemoglobin 8.3 g/dL (12.9-16.9); Lymphocytes # 0.5 K/mcL (0.6-4.6); Mean Corpuscular HGB Conc 29.1 g/dL (31.6-35.5); Mean Corpuscular Hemoglobin 22.9 pg (28.0-33.3); Mean Corpuscular Volume 78.7 fL (83.0-100.0); Platelet Count 447 K/mcL (140-400); Red Blood Count 3.62 M/mcL (4.19-5.50)
[2017-11-18 04:39] LABS: BUN/Creatinine Ratio 29 (6-26); Blood Urea Nitrogen 38 mg/dL (8-23); Calcium 9.1 mg/dL (8.6-10.3); Carbon Dioxide 31 mEq/L (23-29); Chloride 98 mEq/L (98-107); Glucose 182 mg/dL (70-105); Magnesium 2.4 mg/dL (1.6-2.6); Osmolality,Calculated 298 (280-300); Potassium 3.7 mEq/L (3.5-5.1); Sodium 137 mEq/L (136-145); eGFR For African Americans > 60 (> 60); eGFR For Non-African Americans 53 (> 60)
[2017-11-18] MEDS: cefTRIAXone 1,000 MG in Water for inj. (sterile) 20 ML 10 ML IVPB SCH (04:42)
[2017-11-18 04:57] LABS: Anisocytosis 1+ (Not Present); Hypochromasia Present (Not Present); Platelet Estimate Increased (Normal); Polychromasia 1+ (Not Present); Toxic Granulation Present (Not Present)
[2017-11-18 06:05] LABS: Basophils % 0.1 %; Eosinophils % 0.1 %; Lymphocytes % 4.4 %; Monocytes # 1.3 K/mcL (0.0-1.3); Monocytes % 11.1 %; Neutrophils # 9.6 K/mcL (1.6-8.9); Segmented Neutrophils % 83.9 %
[2017-11-18 06:06] LABS: Immature Granulocytes % 0.4 % (0-4)
[2017-11-18] MEDS: Metoprolol XL (24 HR) Succ 50 MG TAB.ER.24H PO SCH (08:28)
[2017-11-18] MEDS: predniSONE 20 MG TABLET PO SCH (08:29)
[2017-11-18] MEDS: Spironolactone 25 MG TABLET PO SCH (08:29)
[2017-11-18] MEDS: Aspirin 81 MG TAB.CHEW PO SCH (08:29)
[2017-11-18] MEDS: Bumetanide 1 MG TABLET PO SCH ×2 (08:29→11:55)
[2017-11-18] MEDS: Diltiazem CD (24hr) 120 MG CAPSULE PO SCH (08:29)
[2017-11-18] MEDS: Insulin DETEMIR 100 UNIT/ML X5UNITS SQ SCH (08:30)
[2017-11-18] MEDS: Insulin LISPRO 300 UNITS/3 ML VIAL SQ SCH ×4 (08:30→11:55)
[2017-11-18] MEDS: Lactulose Oral Soln 20 GM/30 ML UDC PO SCH (08:38)
[2017-11-18] MEDS: Silvasorb 44.4 ML TUBE TP SCH (08:40)
--- NOTE | 2017-11-18 11:01 | Discharge Summary ---
Orders not resulted at time of discharge: Pending orders 11/19/17 04:00 Basic Metabolic Panel AM 0400 Complete Blood Count [HEME] AM 0400 Magnesium AM 0400 11/20/17 04:00 Basic Metabolic Panel AM 0400 Complete Blood Count [HEME] AM 0400 Magnesium AM 0400 Date of Encounter: 11/18/17 Time of Encounter: 10:52 - Discharge Diagnosis (1) Acute and chronic respiratory failure Priority: Primary Status: Resolved Qualifiers: Respiratory failure complication: hypoxia Qualified Code(s): J96.21 - Acute and chronic respiratory failure with hypoxia (2) Acute exacerbation of CHF (congestive heart failure) Priority: Primary Status: Resolved Qualifiers: Heart failure type: diastolic Qualified Code(s): I50.33 - Acute on chronic diastolic (congestive) heart failure (3) COPD exacerbation Priority: Primary Status: Resolved (4) Syncope Priority: Secondary Status: Resolved Qualifiers: Syncope type: unspecified Qualified Code(s): R55 - Syncope and collapse (5) Essential hypertension Priority: Secondary Status: Chronic (6) CKD (chronic kidney disease) stage 3, GFR 30-59 ml/min Priority: Secondary Status: Chronic (7) Diabetes mellitus Priority: Secondary Status: Chronic Qualifiers: Diabetes mellitus type: type 2 Diabetes mellitus correction insulin use: with vermin exterminator use Diabetes mellitus complication status: with circulatory complication Diabetes mellitus complication detail: with other circulatory complications Qualified Code(s): E11.59 - Type 2 diabetes mellitus with other circulatory complications; Z79.4 - adjunct faculty for medical terminology (current) use of insulin; Z79.4 - jail (current) use of insulin; Z79.4 - adjunct faculty for medical terminology (current) use of insulin; Z79.4 - jail (current) use of insulin (8) GRAZYNA (obstructive sleep apnea) Priority: Secondary Status: Chronic (9) Morbid obesity with BMI of 40.0-44.9, adult Priority: Secondary Status: Chronic Hospital course: Mr. Diaz is a 72 year old male with hx of chronic respiratory failure presented to ED after syncopal episode. He had fallen forward and hit his nose. He was evaluated and admitted for further treatment. Mr Diaz was admitted to [facility]. He was noted to have COPD exacerbation as well and was started on abx and steroids. Xarelto was held. There was also a concern for pneumonia. On 11/15 he was evaluated by ENT with no need for intervention. His breathing was starting to improved. He had further testing for syncope which was negative. Steroids were tapered. He had slow improvement in his overall breathing. Today he is doing OK on PO steroids. His lungs are clear and he feels he is at baseline. Vitals are stable. He will be discharged home with [facility]. He will complete a Prednisone taper and course of abx. Discharge discussed with: patient - Time Spent with Patient Total time spent providing and/or coordinating discharge services: 42min - Discharge Medications Prescriptions: Cefdinir [Omnicef] 300 mg PO BID #10 capsule predniSONE [PredniSONE] 10 mg PO DAILY #30 tablet Home Medications: Aspirin 81 mg PO DAILY 04/28/15 [History] Atorvastatin [Lipitor] 40 mg PO HS 04/28/15 [History] Ferrous Sulfate 325 mg PO BID 04/28/15 [History] Albuterol Sulfate [Proair Hfa] 2 puff IH Q4H PRN 01/25/17 [History] Metoprolol Succinate 200 mg PO DAILY 01/25/17 [History] Oxygen 3 l NS CONT 02/03/17 [History] Insulin LISPRO [HumaLOG] 0 units SQ TIDWM 04/06/17 [History] Spironolactone [Aldactone] 12.5 mg PO DAILY 06/17/17 [History] Ipratropium/Albuterol Neb [Duoneb] 3 ml IH Q4HR PRN 07/01/17 [History] Lactulose 10 gm PO DAILY 08/30/17 [History] Pantoprazole Sodium [Protonix] 40 mg PO DAILY 08/30/17 [History] Sennosides [Senokot] 8.6 mg PO DAILY 08/30/17 [History] SitaGLIPtin [Januvia] 100 mg PO DAILY 08/30/17 [History] Diltiazem CD (24hr) [Cardizem CD] 120 mg PO DAILY 09/20/17 [History] Insulin DETEMIR [Levemir] 35 unit SQ BID 09/20/17 [History] Bumetanide [Bumex] 1 mg PO TID #90 tablet 09/23/17 [Rx] Potassium Chloride 20 meq PO DAILY 30 Days tab.er.prt 09/23/17 [Rx] Acetaminophen [Tylenol 650mg SUPP] 650 mg RC Q4HR 10/04/17 [History] Haloperidol 0.5 mg PO Q2H PRN 10/04/17 [History] Hyoscyamine SL [Levsin Sl] 1 - 2 tab SL Q2H PRN 10/04/17 [History] LORazepam [Ativan] 0.5 mg PO TID 10/04/17 [History] Promethazine [Phenergan] 25 mg RC Q6HR PRN 10/04/17 [History] Furosemide [Lasix] 80 mg PO DAILY 11/15/17 [History] Oxycodone HCl [Oxaydo] 5 mg PO Q4H PRN 11/15/17 [History] traZODone [TraZODone] 50 mg PO HS 11/15/17 [History] Cefdinir [Omnicef] 300 mg PO BID #10 capsule 11/18/17 [Rx] OxyCODONE Immed Rel [Roxicodone 5 MG] 5 mg PO Q6HR PRN 2 Days #10 tablet [Rx] Silvasorb 1 appl TP DAILY tube 11/18/17 [Rx] predniSONE [PredniSONE] 10 mg PO DAILY #30 tablet 11/18/17 [Rx] Allergies/Adverse Reactions: 3 Allergy/AdvReac Type Severity Reaction Status Date / Time bupropion [From Wellbutrin] Allergy Difficulty Verified 06/17/17 00:14 Breathing codeine Allergy Difficulty Verified 06/17/17 00:14 Breathing Opioids-Meperidine and Allergy Difficulty Verified 06/17/17 00:14 Related Breathing [Opioids-Meperidine & Related] Date of admission: 11/15/17 03:56 Primary care physician: Damian Seymour, Consults: 11/16/17 09:25 Consult to Senior Oracle Database Administrator [CONS] Routine Reason for SW Consult: pt has home hospice and possible ECF placement 11/16/17 09:27 Consult to Occupational Therapy [CONS] Routine Comment: Evaluate, develop and implement POC Reason for Consult: increased falls Consult to Physical Therapy [CONS] Routine Comment: Evaluate, develop and implement POC Reason for Consult: increased weakness and falls 11/16/17 15:50 Consult to Wound Care [CONS] Routine Reason for Consult: bilateral lower leg wounds Time Notified: 15:51 Call Completed: Yes Discharging clinician: Naresh Baldwin Anticipated date of discharge: 11/18/17 - Constitutional Vitals: Temp Pulse Resp BP Pulse Ox 97.6 F 85 16 124/74 95 11/18/17 07:45 11/18/17 07:45 11/18/17 07:45 11/18/17 07:45 11/18/17 07:45 General appearance: Present: A&O X 3, morbidly obese, pleasant, answers questions appropriately - Head Head exam: Present: normocephalic - Eye Eye exam: Present: conjuntiva pink - ENT ENT exam: Present: mucous membranes moist - Respiratory Respiratory exam: Present: CTAB. Absent: rales, rhonchi, wheezes - Cardiovascular Cardiovascular exam: Present: distant heart sounds, RRR. Absent: tachycardia - GI/Abdominal GI/Abdominal exam: Present: soft. Absent: tenderness - Extremities Exam Extremities exam: Present: warm. Absent: tenderness Additional comments: Dressings intact - Neurological Exam Neurological exam: Present: alert, oriented X3 - Skin Skin exam: Present: dry, warm - Patient Status Disposition: Hospice - Home Condition: Undetermined Functional capacity at discharge: uses cane/walker Overall status at discharge: patient is progressing back to baseline - Discharge Instructions Follow Up With: Damian Seymour MD [Primary Care Provider] - 11/28/17 2:15 pm (please follow up as schedule...) - VTE Documentation of Mechanical Device: Graduated compression elastic hosiery
--- NOTE | 2017-11-18 11:05 | Physician Discharge Referral ---
Home Health/Hosp Referral Info Transfer to: Hospice Provider in Charge Post Discharge: PCP - Diagnosis (1) Acute and chronic respiratory failure Priority: Primary Status: Resolved (2) Acute exacerbation of CHF (congestive heart failure) Priority: Primary Status: Resolved (3) COPD exacerbation Priority: Primary Status: Resolved (4) Syncope Priority: Secondary Status: Resolved (5) Essential hypertension Priority: Secondary Status: Chronic (6) CKD (chronic kidney disease) stage 3, GFR 30-59 ml/min Priority: Secondary Status: Chronic (7) Diabetes mellitus Priority: Secondary Status: Chronic (8) GRAZYNA (obstructive sleep apnea) Status: Chronic - Respiratory Orders Oxygen / L per min (As prior) Smoking Cessation: Smoking cessation has been advised. For more information, call the [employer] Quit Line at 4-544-QXPO-NOW. - Dressing/Wound Care Site: Resume wound care as prior - Diet/Nutrition Diet/Nutrition Orders: Cardiac (1200 ml fluid restrict) - Activity Activity Orders: Up ad andrea, Walker - Services Needed Following services are medically necessary services: Nursing, Home Health Aide - Transfer Medications Prescriptions: Cefdinir [Omnicef] 300 mg PO BID #10 capsule predniSONE [PredniSONE] 10 mg PO DAILY #30 tablet Home Medications: Aspirin 81 mg PO DAILY 04/28/15 [History] Atorvastatin [Lipitor] 40 mg PO HS 04/28/15 [History] Ferrous Sulfate 325 mg PO BID 04/28/15 [History] Albuterol Sulfate [Proair Hfa] 2 puff IH Q4H PRN 01/25/17 [History] Metoprolol Succinate 200 mg PO DAILY 01/25/17 [History] Oxygen 3 l NS CONT 02/03/17 [History] Insulin LISPRO [HumaLOG] 0 units SQ TIDWM 04/06/17 [History] Spironolactone [Aldactone] 12.5 mg PO DAILY 06/17/17 [History] Ipratropium/Albuterol Neb [Duoneb] 3 ml IH Q4HR PRN 07/01/17 [History] Lactulose 10 gm PO DAILY 08/30/17 [History] Pantoprazole Sodium [Protonix] 40 mg PO DAILY 08/30/17 [History] Sennosides [Senokot] 8.6 mg PO DAILY 08/30/17 [History] SitaGLIPtin [Januvia] 100 mg PO DAILY 08/30/17 [History] Diltiazem CD (24hr) [Cardizem CD] 120 mg PO DAILY 09/20/17 [History] Insulin DETEMIR [Levemir] 35 unit SQ BID 09/20/17 [History] Bumetanide [Bumex] 1 mg PO TID #90 tablet 09/23/17 [Rx] Potassium Chloride 20 meq PO DAILY 30 Days tab.er.prt 09/23/17 [Rx] Acetaminophen [Tylenol 650mg SUPP] 650 mg RC Q4HR 10/04/17 [History] Haloperidol 0.5 mg PO Q2H PRN 10/04/17 [History] Hyoscyamine SL [Levsin Sl] 1 - 2 tab SL Q2H PRN 10/04/17 [History] LORazepam [Ativan] 0.5 mg PO TID 10/04/17 [History] Promethazine [Phenergan] 25 mg RC Q6HR PRN 10/04/17 [History] Furosemide [Lasix] 80 mg PO DAILY 11/15/17 [History] Oxycodone HCl [Oxaydo] 5 mg PO Q4H PRN 11/15/17 [History] traZODone [TraZODone] 50 mg PO HS 11/15/17 [History] Cefdinir [Omnicef] 300 mg PO BID #10 capsule 11/18/17 [Rx] OxyCODONE Immed Rel [Roxicodone 5 MG] 5 mg PO Q6HR PRN 2 Days #10 tablet [Rx] Silvasorb 1 appl TP DAILY tube 11/18/17 [Rx] predniSONE [PredniSONE] 10 mg PO DAILY #30 tablet 11/18/17 [Rx] Allergies/Adverse Reactions: 3 Allergy/AdvReac Type Severity Reaction Status Date / Time bupropion [From Wellbutrin] Allergy Difficulty Verified 06/17/17 00:14 Breathing codeine Allergy Difficulty Verified 06/17/17 00:14 Breathing Opioids-Meperidine and Allergy Difficulty Verified 06/17/17 00:14 Related Breathing [Opioids-Meperidine & Related] Certification: Further, I certify that my clinical findings support that this patient is homebound (i.e. absences from home require considerable and taxing effort and are for medical reasons or christian services or infrequently or short duration when for other reasons) because: Homebound Reason: Patient requires assistance of a person or device to safely leave home, Severity of cardiac or pulmonary status limits activity tolerance Attestation: My signature below is to certify that this patient is under my care and that I, or nurse practitioner, or a physician's paralegal assistant working with me, has a face-to -face encounter with this patient.
[2017-11-18 11:41] VITALS: BP 114/62
== END 2017-11-18 14:20 | disposition hospice, home (50) | DRG 190 ==
LOC: EMEROO 00:43 → ICNU 00:43 → SUATTDRO 03:56 → ICNU 04:29 → 2ANU 16:17
PROVIDERS: ADMIT Internal Medicine; ATTEND Internal Medicine

== ENCOUNTER 2017-12-02 23:36 | Inpatient (IN) ==
--- NOTE | 2017-12-02 23:54 | Emergency Department Note ---
Disposition Clinical Impression: Altered mental status Anemia Qualifiers: Anemia type: unspecified type Qualified Code(s): D64.9 - Anemia, unspecified Disposition: Admitted As Inpatient Condition: Good Time of Disposition: 02:06 General Adult HPI - General Stated complaint: Fall Time Seen by Provider: 12/02/17 23:41 Nursing Notes Reviewed: Yes Vital Signs Reviewed: Yes - History of Present Illness HPI Narrative: Patient found down at home by EMS. Naked in the floor pinned between his chair and wall. It appears that the patient likely called 911 as he calls 911 while he is here in the emergency department as well. - Related Data Home Medications Medication Instructions Recorded Confirmed Aspirin 81 mg PO DAILY 04/28/15 11/15/17 Atorvastatin [Lipitor] 40 mg PO HS 04/28/15 11/15/17 Ferrous Sulfate 325 mg PO BID 04/28/15 11/15/17 Albuterol Sulfate [Proair Hfa] 2 puff IH Q4H PRN 01/25/17 11/15/17 Metoprolol Succinate 200 mg PO DAILY 01/25/17 11/15/17 Oxygen 3 l NS CONT 02/03/17 11/15/17 Insulin LISPRO [HumaLOG] 0 units SQ TIDWM 04/06/17 11/15/17 Spironolactone [Aldactone] 12.5 mg PO DAILY 06/17/17 11/15/17 Ipratropium/Albuterol Neb [Duoneb] 3 ml IH Q4HR PRN 07/01/17 11/15/17 Lactulose 10 gm PO DAILY 08/30/17 11/15/17 Pantoprazole Sodium [Protonix] 40 mg PO DAILY 08/30/17 11/15/17 Sennosides [Senokot] 8.6 mg PO DAILY 08/30/17 11/15/17 SitaGLIPtin [Januvia] 100 mg PO DAILY 08/30/17 11/15/17 Diltiazem CD (24hr) [Cardizem CD] 120 mg PO DAILY 09/20/17 11/15/17 Insulin DETEMIR [Levemir] 35 unit SQ BID 09/20/17 11/15/17 Acetaminophen [Tylenol 650mg SUPP] 650 mg RC Q4HR 10/04/17 11/15/17 Haloperidol 0.5 mg PO Q2H PRN 10/04/17 11/15/17 Hyoscyamine SL [Levsin Sl] 1 - 2 tab SL Q2H PRN 10/04/17 11/15/17 LORazepam [Ativan] 0.5 mg PO TID 10/04/17 11/15/17 Promethazine [Phenergan] 25 mg RC Q6HR PRN 10/04/17 11/15/17 Furosemide [Lasix] 80 mg PO DAILY 11/15/17 11/15/17 Oxycodone HCl [Oxaydo] 5 mg PO Q4H PRN 11/15/17 11/15/17 traZODone [TraZODone] 50 mg PO HS 11/15/17 11/15/17 Previous Rx's Medication Instructions Recorded Bumetanide [Bumex] 1 mg PO TID #90 tablet 09/23/17 Potassium Chloride 20 meq PO DAILY 30 Days tab.er.prt 09/23/17 Cefdinir [Omnicef] 300 mg PO BID #10 capsule 11/18/17 OxyCODONE Immed Rel [Roxicodone 5 5 mg PO Q6HR PRN 2 Days #10 tablet 11/18/17 MG] Silvasorb 1 appl TP DAILY tube 11/18/17 predniSONE [PredniSONE] 10 mg PO DAILY #30 tablet 11/18/17 Allergies Allergy/AdvReac Type Severity Reaction Status Date / Time bupropion [From Wellbutrin] Allergy Difficulty Verified 06/17/17 00:14 Breathing codeine Allergy Difficulty Verified 06/17/17 00:14 Breathing Opioids-Meperidine and Allergy Difficulty Verified 06/17/17 00:14 Related Breathing [Opioids-Meperidine & Related] Limitations: ROS unobtainable due to patients medical condition Past Medical History - Past Medical History Medical history: Reports: arthritis, atrial fibrillation, CHF, COPD, diabetes, hyperlipidemia, hypertension, liver disease, renal disease Surgical history: Reports: orthopedic, other, pacemaker/AICD Psychiatric history: Reports: anxiety, depression - Social History Smoking Status: Former smoker Smokeless Tobacco Status: No Alcohol use: Reports: none Drug use: Reports: none Physical Exam - General Limitations: altered mental status General appearance: alert, other (Confused) - Head Head exam: atraumatic, normocephalic, normal inspection - Eye Eye exam: Present: normal appearance, PERRL, EOMI - ENT ENT exam: normal exam, normal oropharynx, mucous membranes moist - Neck Neck exam: Present: normal inspection, full ROM, trachea midline - Chest Chest inspection: Present: normal inspection - Respiratory Respiratory exam: Present: normal lung sounds bilaterally. Absent: respiratory distress, accessory muscle use - Cardiovascular Cardiovascular exam: Present: regular rate, normal rhythm, normal heart sounds - Abdominal Exam Abdominal exam: Present: soft, Non-Tender. Absent: distention, rigidity, organomegaly - Back Exam Back exam: Present: normal inspection - Neurological Exam Neurological exam: Present: alert - Psychiatric Psychiatric exam: Present: suicidal ideation (Patient states that he does not care if he lives due to no one comes to see him.) - Skin Skin exam: Present: warm, dry, intact, normal color Course Course Narrative: Male patient brought in by EMS. Patient has an altered mental status at this time. He is unaware of the year. He was found down at home naked in between his chair and the wall. Patient has no complaints at this time. He is maintaining his own airway. He is looking about the room. He has no lateralizing symptoms. He does have both of his lower extremities bandage. He is hyperglycemic. Lung sounds are clear heart tones are normal. He has no signs of trauma to his body. CT of patient's head and neck were grossly normal. While here he is verbally abusive to nursing staff. He is also urinated at bedside in the floor. Patient is anemic with a hemoglobin of 8.9. We will admit patient to the hospital for altered mental status. Vital Signs Temperature 98.6 F 12/02/17 23:44 Pulse Rate 72 12/02/17 23:44 Respiratory Rate 18 12/02/17 23:44 Blood Pressure 123/70 12/02/17 23:44 O2 Sat by Pulse Oximetry 99 12/02/17 23:44 Temperature 97.4 F L 12/03/17 04:13 Pulse Rate 74 12/03/17 04:13 Respiratory Rate 18 12/03/17 04:13 Blood Pressure 144/86 12/03/17 04:13 O2 Sat by Pulse Oximetry 99 12/03/17 04:13 Oxygen Delivery Oxygen Delivery Nasal Cannula Medical Decision Making - Lab Data Result diagrams: 12/02/17 23:49 12/02/17 23:49 Lab Results 12/02/17 12/02/17 12/02/17 Range/Units 00:25 23:46 23:47 WBC (4.3-11.1) K/mcL RBC (4.19-5.50) M/mcL Hgb (12.9-16.9) g/dL Hct (37.5-50.1) % MCV (83.0-100.0) fL MCH (28.0-33.3) pg MCHC (31.6-35.5) g/dL RDW (11.5-14.5) % Plt Count (140-400) K/mcL MPV (9.4-12.4) fL Immature Gran % (0-4) % Seg Neutrophils % % Lymphocytes % % Monocytes % % Eosinophils % % Basophils % % Neutrophils # (1.6-8.9) K/mcL Lymphocytes # (0.6-4.6) K/mcL Monocytes # (0.0-1.3) K/mcL Eosinophils # (0.0-0.6) K/mcL Basophils # (0.0-0.2) K/mcL PT (9.4-12.1) Seconds INR APTT (26.0-36.0) Seconds VBG pH (7.32-7.42) pH Units VBG pCO2 (41-51) mmHg VBG pO2 (25-50) mmHg VBG HCO3 (21-27) mEq/L Sodium (136-145) mEq/L Potassium (3.5-5.1) mEq/L Chloride (98-107) mEq/L Carbon Dioxide (23-29) mEq/L BUN (8-23) mg/dL Creatinine (0.70-1.30) mg/dL Est GFR ( Amer) (> 60) Est GFR (Non-Af Amer) (> 60) BUN/Creatinine Ratio (6-26) Glucose (70-105) mg/dL POC Glucose 515 H* 522 H* (58-89) Calculated Osmolality (280-300) Calcium (8.6-10.3) mg/dL Total Bilirubin (0.3-1.0) mg/dL Direct Bilirubin (0.0-0.2) mg/dL Indirect Bilirubin (0.0-1.2) mg/dL AST (13-39) Units/L ALT (7-52) Units/L Alkaline Phosphatase (34-104) Units/L Ammonia 40 (16-53) mcmol/L Creatine Kinase (30-223) Units/L Troponin I (< 0.04) ng/mL Serum Total Protein (6.4-8.9) g/dL Albumin (3.5-5.7) g/dL Globulin (2.4-3.5) g/dL Albumin/Globulin Ratio (1.1-2.2) TSH (0.340-5.600) mcIU/mL Urine Color (Yellow) Urine Clarity (Clear) Urine pH (5.0-8.0) pH Units Ur Specific [place] (1.010-1.025) Urine Protein (Neg-Trace) mg/dL Urine Glucose (UA) (Normal) mg/dL Urine Ketones (Negative) mg/dL Urine Blood (Negative) Urine Nitrite (Negative) Urine Bilirubin (Negative) Urine Urobilinogen (Normal) mg/dL Ur Leukocyte Esterase (Negative) Ur Culture Indicated? (NO) Urine Opiates Screen (Bogpyj=350) ng/mL Ur Barbiturates Screen (Jluxkk=298) ng/mL Ur Phencyclidine Scrn (Cutoff=25) ng/mL Ur Amphetamines Screen (Tjxyfe=5934) ng/mL U Benzodiazepines Scrn (Ffjero=998) ng/mL Urine Cocaine Screen (Cutoff= 300) ng/mL U Marijuana (THC) Screen (Cutoff = 50) ng/mL Ethyl Alcohol (0-10) mg/dL 12/02/17 12/02/17 12/02/17 Range/Units 23:49 23:49 23:49 WBC 8.8 (4.3-11.1) K/mcL RBC 3.88 L (4.19-5.50) M/mcL Hgb 8.9 L (12.9-16.9) g/dL Hct 30.2 L (37.5-50.1) % MCV 77.8 L (83.0-100.0) fL MCH 22.9 L (28.0-33.3) pg MCHC 29.5 L (31.6-35.5) g/dL RDW 19.1 H (11.5-14.5) % Plt Count 342 (140-400) K/mcL MPV 9.6 (9.4-12.4) fL Immature Gran % 0.5 (0-4) % Seg Neutrophils % 81.0 % Lymphocytes % 6.2 % Monocytes % 10.0 % Eosinophils % 1.8 % Basophils % 0.5 % Neutrophils # 7.1 (1.6-8.9) K/mcL Lymphocytes # 0.5 L (0.6-4.6) K/mcL Monocytes # 0.9 (0.0-1.3) K/mcL Eosinophils # 0.2 (0.0-0.6) K/mcL Basophils # 0.0 (0.0-0.2) K/mcL PT 13.8 H (9.4-12.1) Seconds INR 1.3 APTT 25.9 L (26.0-36.0) Seconds VBG pH (7.32-7.42) pH Units VBG pCO2 (41-51) mmHg VBG pO2 (25-50) mmHg VBG HCO3 (21-27) mEq/L Sodium 132 L (136-145) mEq/L Potassium 4.2 (3.5-5.1) mEq/L Chloride 95 L (98-107) mEq/L Carbon Dioxide 28 (23-29) mEq/L BUN 47 H (8-23) mg/dL Creatinine 1.39 H (0.70-1.30) mg/dL Est GFR ( Amer) > 60 (> 60) Est GFR (Non-Af Amer) 50 L (> 60) BUN/Creatinine Ratio 34 H (6-26) Glucose 471 H (70-105) mg/dL POC Glucose (58-89) Calculated Osmolality 307 H (280-300) Calcium 9.0 (8.6-10.3) mg/dL Total Bilirubin 0.5 (0.3-1.0) mg/dL Direct Bilirubin 0.2 (0.0-0.2) mg/dL Indirect Bilirubin 0.3 (0.0-1.2) mg/dL AST 11 L (13-39) Units/L ALT 19 (7-52) Units/L Alkaline Phosphatase 120 H (34-104) Units/L Ammonia (16-53) mcmol/L Creatine Kinase 32 (30-223) Units/L Troponin I < 0.03 (< 0.04) ng/mL Serum Total Protein 7.9 (6.4-8.9) g/dL Albumin 3.7 (3.5-5.7) g/dL Globulin 4.2 H (2.4-3.5) g/dL Albumin/Globulin Ratio 0.9 L (1.1-2.2) TSH 0.313 L (0.340-5.600) mcIU/mL Urine Color (Yellow) Urine Clarity (Clear) Urine pH (5.0-8.0) pH Units Ur Specific [place] (1.010-1.025) Urine Protein (Neg-Trace) mg/dL Urine Glucose (UA) (Normal) mg/dL Urine Ketones (Negative) mg/dL Urine Blood (Negative) Urine Nitrite (Negative) Urine Bilirubin (Negative) Urine Urobilinogen (Normal) mg/dL Ur Leukocyte Esterase (Negative) Ur Culture Indicated? (NO) Urine Opiates Screen (Sjiryq=571) ng/mL Ur Barbiturates Screen (Jxtdwe=230) ng/mL Ur Phencyclidine Scrn (Cutoff=25) ng/mL Ur Amphetamines Screen (Owtggi=9676) ng/mL U Benzodiazepines Scrn (Vuxygt=048) ng/mL Urine Cocaine Screen (Cutoff= 300) ng/mL U Marijuana (THC) Screen (Cutoff = 50) ng/mL Ethyl Alcohol < 10 (0-10) mg/dL 12/03/17 12/03/17 12/03/17 Range/Units 00:41 00:53 00:53 WBC (4.3-11.1) K/mcL RBC (4.19-5.50) M/mcL Hgb (12.9-16.9) g/dL Hct (37.5-50.1) % MCV (83.0-100.0) fL MCH (28.0-33.3) pg MCHC (31.6-35.5) g/dL RDW (11.5-14.5) % Plt Count (140-400) K/mcL MPV (9.4-12.4) fL Immature Gran % (0-4) % Seg Neutrophils % % Lymphocytes % % Monocytes % % Eosinophils % % Basophils % % Neutrophils # (1.6-8.9) K/mcL Lymphocytes # (0.6-4.6) K/mcL Monocytes # (0.0-1.3) K/mcL Eosinophils # (0.0-0.6) K/mcL Basophils # (0.0-0.2) K/mcL PT (9.4-12.1) Seconds INR APTT (26.0-36.0) Seconds VBG pH 7.42 (7.32-7.42) pH Units VBG pCO2 50 (41-51) mmHg VBG pO2 106 H (25-50) mmHg VBG HCO3 32 H (21-27) mEq/L Sodium (136-145) mEq/L Potassium (3.5-5.1) mEq/L Chloride (98-107) mEq/L Carbon Dioxide (23-29) mEq/L BUN (8-23) mg/dL Creatinine (0.70-1.30) mg/dL Est GFR ( Amer) (> 60) Est GFR (Non-Af Amer) (> 60) BUN/Creatinine Ratio (6-26) Glucose (70-105) mg/dL POC Glucose (58-89) Calculated Osmolality (280-300) Calcium (8.6-10.3) mg/dL Total Bilirubin (0.3-1.0) mg/dL Direct Bilirubin (0.0-0.2) mg/dL Indirect Bilirubin (0.0-1.2) mg/dL AST (13-39) Units/L ALT (7-52) Units/L Alkaline Phosphatase (34-104) Units/L Ammonia (16-53) mcmol/L Creatine Kinase (30-223) Units/L Troponin I (< 0.04) ng/mL Serum Total Protein (6.4-8.9) g/dL Albumin (3.5-5.7) g/dL Globulin (2.4-3.5) g/dL Albumin/Globulin Ratio (1.1-2.2) TSH (0.340-5.600) mcIU/mL Urine Color Yellow (Yellow) Urine Clarity Clear (Clear) Urine pH 6.5 (5.0-8.0) pH Units Ur Specific [place] 1.017 (1.010-1.025) Urine Protein Negative (Neg-Trace) mg/dL Urine Glucose (UA) >=1000 H (Normal) mg/dL Urine Ketones Negative (Negative) mg/dL Urine Blood Negative (Negative) Urine Nitrite Negative (Negative) Urine Bilirubin Negative (Negative) Urine Urobilinogen Normal (Normal) mg/dL Ur Leukocyte Esterase Negative (Negative) Ur Culture Indicated? NO (NO) Urine Opiates Screen Negative (Xwjnmf=043) ng/mL Ur Barbiturates Screen Negative (Flxjiw=460) ng/mL Ur Phencyclidine Scrn Negative (Cutoff=25) ng/mL Ur Amphetamines Screen Negative (Eshmcc=0738) ng/mL U Benzodiazepines Scrn Negative (Izjdmd=680) ng/mL Urine Cocaine Screen Negative (Cutoff= 300) ng/mL U Marijuana (THC) Screen Negative (Cutoff = 50) ng/mL Ethyl Alcohol (0-10) mg/dL - EKG Data EKG #1 EKG attestation: Yes I reviewed and interpreted this EKG. EKG results narrative: Normal sinus rhythm at a rate of 61. VT interval is 153. Castration is 1:15. QT is 452. QTC is 456. No signs of acute ischemia. It is a sinus arrhythmia. Attestation Statement - Attestation Attestation: I examined this patient and my medical decision-making was reviewed with the Resident Physician. I agree with the documented findings, disposition and treatment plan as described except to the extent set forth below. The patient with confusion. Found on the floor. He is agitated, argumentative. On arrival he was upset understaffing giving her nurse's a very challenging time. He then urinated on the floor and called 911. He told us we were giving him Haldol. He is not cognitively capable of making informed decisions at this time. He is confused. He is only alert and oriented to person and place. The patient will be admitted to the hospital for further evaluation of confusion. CT scan shows no acute findings. Chest x-ray shows no evidence of acute findings. Blood gas is unremarkable.
[2017-12-03] MEDS ORDERED: Haloperidol Lactate 5 MG/ML VIAL IVP ONE (00:17)
[2017-12-03 00:41] LABS: Basophils % 0.5 %; Eosinophils # 0.2 K/mcL (0.0-0.6); Eosinophils % 1.8 %; Hematocrit 30.2 % (37.5-50.1); Hemoglobin 8.9 g/dL (12.9-16.9); Immature Granulocytes % 0.5 % (0-4); Lymphocytes # 0.5 K/mcL (0.6-4.6); Lymphocytes % 6.2 %; Mean Corpuscular HGB Conc 29.5 g/dL (31.6-35.5); Mean Corpuscular Hemoglobin 22.9 pg (28.0-33.3); Mean Corpuscular Volume 77.8 fL (83.0-100.0); Mean Platelet Volume 9.6 fL (9.4-12.4); Monocytes # 0.9 K/mcL (0.0-1.3); Neutrophils # 7.1 K/mcL (1.6-8.9); Platelet Count 342 K/mcL (140-400); Red Blood Count 3.88 M/mcL (4.19-5.50); Red Cell Distribution Width 19.1 % (11.5-14.5)
[2017-12-03 00:45] LABS: INR 1.3; Prothrombin Time 13.8 Seconds (9.4-12.1)
[2017-12-03 00:48] LABS: Activated Partial Thrombo Time 25.9 Seconds (26.0-36.0)
[2017-12-03 00:48] LABS: VBG HCO3 32 mEq/L (21-27); VBG PCO2 50 mmHg (41-51); VBG PH 7.42 pH Units (7.32-7.42); VBG PO2 106 mmHg (25-50)
[2017-12-03 00:56] LABS: Ethanol < 10 mg/dL (0-10)
[2017-12-03 01:01] LABS: Alanine Aminotransferase 19 Units/L (7-52); Albumin 3.7 g/dL (3.5-5.7); Albumin/Globulin Ratio 0.9 (1.1-2.2); Alkaline Phosphatase 120 Units/L (34-104); Aspartate Amino Transferase 11 Units/L (13-39); BUN/Creatinine Ratio 34 (6-26); Bilirubin,Direct 0.2 mg/dL (0.0-0.2); Bilirubin,Indirect 0.3 mg/dL (0.0-1.2); Bilirubin,Total 0.5 mg/dL (0.3-1.0); Blood Urea Nitrogen 47 mg/dL (8-23); Carbon Dioxide 28 mEq/L (23-29); Chloride 95 mEq/L (98-107); Creatine Kinase 32 Units/L (30-223); Globulin 4.2 g/dL (2.4-3.5); Glucose 471 mg/dL (70-105); Osmolality,Calculated 307 (280-300); Potassium 4.2 mEq/L (3.5-5.1); Sodium 132 mEq/L (136-145); Total Protein 7.9 g/dL (6.4-8.9); Troponin I < 0.03 ng/mL (< 0.04); eGFR For African Americans > 60 (> 60); eGFR For Non-African Americans 50 (> 60)
[2017-12-03 01:07] LABS: Bilirubin,Urine Negative (Negative); Blood,Urine Negative (Negative); Clarity,Urine Clear (Clear); Color,Urine Yellow (Yellow); Glucose,Urine (UA) >=1000 mg/dL (Normal); Ketones,Urine Negative (Negative); Leukocyte Esterase,Urine Negative (Negative); Nitrite,Urine Negative (Negative); PH,Urine 6.5 pH Units (5.0-8.0); Protein,Urine Negative (Neg-Trace); Specific Gravity,Urine 1.017 (1.010-1.025); Urobilinogen,Urine Normal (Normal)
[2017-12-03 01:13] LABS: Amphetamine Screen,Urine Negative ng/mL (Cutoff=1000); Barbiturate Screen,Urine Negative ng/mL (Cutoff=200); Benzodiazepines Screen,Urine Negative ng/mL (Cutoff=200); Cannabinoid Screen,Urine Negative ng/mL (Cutoff = 50); Cocaine Screen,Urine Negative ng/mL (Cutoff= 300); Opiate Screen,Urine Negative ng/mL (Cutoff=300); Phencyclidine Screen,Urine Negative ng/mL (Cutoff=25)
[2017-12-03 01:15] LABS: Thyroid Stimulating Hormone 0.313 mcIU/mL (0.340-5.600)
[2017-12-03] MEDS ORDERED: D5% in Water 1,000 ML IVC PRN (03:37)
[2017-12-03] MEDS ORDERED: Dextrose Gel 15 GM PO PRN ×2 (03:37)
[2017-12-03] MEDS ORDERED: *HR* Dextrose 50 % in Water (Syg) 50 ML SYRINGE IVP PRN (03:37)
[2017-12-03] MEDS ORDERED: Naloxone 0.4 MG/ML INJ IVP PRN (03:39)
[2017-12-03] MEDS ORDERED: 0.9 % Sodium Chloride 1,000 ML IVC SCH (03:45)
[2017-12-03] MEDS ORDERED: Insulin LISPRO 300 UNITS/3 ML VIAL SQ ONE (03:51)
--- NOTE | 2017-12-03 03:51 | Internal Med History&Physical ---
Date of Encounter: 12/03/17 Time of Encounter: 03:49 Assessment and Plan (1) Hyperglycemia due to type 2 diabetes mellitus Current visit: Yes Status: Acute attempting to spare gtt therapy restart home insulin and adjust as appropriate check A1c Qualifiers: Diabetes mellitus associate project manager insulin use: with associate project manager use Qualified Code( s): E11.65 - Type 2 diabetes mellitus with hyperglycemia; Z79.4 - patient services specialist ( current) use of insulin; Z79.4 - patient services specialist (current) use of insulin; Z79.4 - assisted (current) use of insulin; Z79.4 - patient services specialist (current) use of insulin (2) Encephalopathy Current visit: Yes Status: Acute found down on the floor possible related to medical co-morbidities monitor 24 hours Likely has some deviant personality per report PT/OT (3) Hyponatremia Current visit: Yes Status: Acute hold diuretics for now. home med needs clarified doubt etiology to his AMS (4) Morbid obesity Current visit: Yes Status: Acute (5) Diabetes mellitus with neuropathy Current visit: No Status: Chronic Continue insulin, and we will adjust accordingly based on blood sugar levels this inpatient Qualifiers: Diabetes mellitus type: type 2 Diabetes mellitus associate project manager insulin use: with associate project manager use (6) Essential hypertension Current visit: No Status: Chronic (7) Morbid obesity with BMI of 40.0-44.9, adult Current visit: No Status: Chronic (8) GRAZYNA (obstructive sleep apnea) Current visit: No Status: Chronic (9) Physical deconditioning Current visit: No Status: Chronic Internal Medicine - H&P: HPI Chief complaint: Found naked on the floor at home History of present illness: Mr. Diaz is a 72 year old male was admitted evaluation after he was found naked on the floor at home with decreased mental status. He has a comorbid history of diabetes type 2 on insulin, compensated CHF, possible COPD, hypertension, hyperlipidemia. He apparently lives at home alone. Report suggested that he call the EMS. On arrival he was found to be naked on the floor minimally responsive and was much between his home furniture. On arrival in the ER, he was defiant and urinated on the floor. Due to the agitation he was given a dose of Haldol which helped calm him down but also cause some somnolence Trauma screen in the ER was negative Sepsis screen in the ER involving chest x-ray and UA was unremarkable CT/CT head/brain wo con IMPRESSION: No acute intracranial abnormality. CT/CT cervical spine wo con IMPRESSION: No acute abnormality of the cervical spine. Mild multilevel degenerative changes. Small right-sided pleural effusion. XR/XR chest 1V portable IMPRESSION: Slight interval improvement in right-sided effusion and associated consolidation which could represent atelectasis or pneumonia. Unchanged cardiomegaly. Past Med Surg Social Fam HX - Past Medical History Medical history: arthritis, atrial fibrillation, CHF, COPD, diabetes, hyperlipidemia, hypertension, liver disease, renal disease Psychiatric history: anxiety, depression - Past Surgical History Surgical History: orthopedic, other, pacemaker/AICD - Social History Smoking Status: Former smoker Smokeless Tobacco Status: No Alcohol use: none Drug use: none - Family History Father Living Status: Hx Family Cardiac Disorders: Yes (Triple Bypass) Hx Family Endocrine Disorder: Yes (DM) Mother Family Member Ethnicity: Non- Living Status: Internal Medicine - H&P: Meds Aspirin 81 mg PO DAILY 04/28/15 [History] Atorvastatin [Lipitor] 40 mg PO HS 04/28/15 [History] Ferrous Sulfate 325 mg PO BID 04/28/15 [History] Albuterol Sulfate [Proair Hfa] 2 puff IH Q4H PRN 01/25/17 [History] Metoprolol Succinate 200 mg PO DAILY 01/25/17 [History] Oxygen 3 l NS CONT 02/03/17 [History] Insulin LISPRO [HumaLOG] 0 units SQ TIDWM 04/06/17 [History] Spironolactone [Aldactone] 12.5 mg PO DAILY 06/17/17 [History] Ipratropium/Albuterol Neb [Duoneb] 3 ml IH Q4HR PRN 07/01/17 [History] Lactulose 10 gm PO DAILY 08/30/17 [History] Pantoprazole Sodium [Protonix] 40 mg PO DAILY 08/30/17 [History] Sennosides [Senokot] 8.6 mg PO DAILY 08/30/17 [History] SitaGLIPtin [Januvia] 100 mg PO DAILY 08/30/17 [History] Diltiazem CD (24hr) [Cardizem CD] 120 mg PO DAILY 09/20/17 [History] Insulin DETEMIR [Levemir] 35 unit SQ BID 09/20/17 [History] Bumetanide [Bumex] 1 mg PO TID #90 tablet 09/23/17 [Rx] Potassium Chloride 20 meq PO DAILY 30 Days tab.er.prt 09/23/17 [Rx] Acetaminophen [Tylenol 650mg SUPP] 650 mg RC Q4HR 10/04/17 [History] Haloperidol 0.5 mg PO Q2H PRN 10/04/17 [History] Hyoscyamine SL [Levsin Sl] 1 - 2 tab SL Q2H PRN 10/04/17 [History] LORazepam [Ativan] 0.5 mg PO TID 10/04/17 [History] Promethazine [Phenergan] 25 mg RC Q6HR PRN 10/04/17 [History] Furosemide [Lasix] 80 mg PO DAILY 11/15/17 [History] Oxycodone HCl [Oxaydo] 5 mg PO Q4H PRN 11/15/17 [History] traZODone [TraZODone] 50 mg PO HS 11/15/17 [History] Cefdinir [Omnicef] 300 mg PO BID #10 capsule 11/18/17 [Rx] OxyCODONE Immed Rel [Roxicodone 5 MG] 5 mg PO Q6HR PRN 2 Days #10 tablet [Rx] Silvasorb 1 appl TP DAILY tube 11/18/17 [Rx] predniSONE [PredniSONE] 10 mg PO DAILY #30 tablet 11/18/17 [Rx] 3 Allergy/AdvReac Type Severity Reaction Status Date / Time bupropion [From Wellbutrin] Allergy Difficulty Verified 06/17/17 00:14 Breathing codeine Allergy Difficulty Verified 06/17/17 00:14 Breathing Opioids-Meperidine and Allergy Difficulty Verified 06/17/17 00:14 Related Breathing [Opioids-Meperidine & Related] All Systems PM: A 10-system review of systems was performed and is negative for pertinent findings except as documented above in the HPI. Review of systems: ROS 14 point review of systems reviewed as best as possible given presentation. Pertinent positive or negative as per HPI or otherwise reviewed as negative - Constitutional Vitals: Temp Pulse Resp BP Pulse Ox 98.6 F 76 20 119/65 99 12/02/17 23:44 12/03/17 02:30 12/03/17 03:13 12/03/17 03:13 12/03/17 02:30 Exam: General - somnolent Psych - No agitation Eyes - LUIZ. Eye lids intact. No scleral icterus Neuro - No gross peripheral or central neuro deficits on inspection Heart - Sinus. RRR. S1 and S2 present. No added HS/murmurs appreciated. No elevated JVD appreciated. Lung - Adequate air entry b/l, No crackles/wheezes appreciated GI - Soft, non-tender. No hepatosplenomegaly/ascites. BS+ - No CVA/suprapubic tenderness or palpable bladder distension Skin - Intact. No rash/petechiae/ecchymosis. Warm extremities Internal Med - H&P Results - Labs CBC & Chem 7: 12/02/17 23:49 12/02/17 23:49 - Impressions ITS Impressions Cervical Spine CT 12/03/17 23:50 IMPRESSION: No acute abnormality of the cervical spine. Mild multilevel degenerative changes. Small right-sided pleural effusion. D/ / Denny Cary MD / Denny Cary MD Interpreting Provider: Denny Cary MD Head CT 12/03/17 23:50 IMPRESSION: No acute intracranial abnormality. D/ / Denny Cary MD / Denny Cary MD Interpreting Provider: Denny Cary MD
[2017-12-03] MEDS: Insulin DETEMIR 100 UNIT/ML X5UNITS SQ SCH ×2 (06:05→20:34)
[2017-12-03] MEDS: Insulin LISPRO 300 UNITS/3 ML VIAL SQ SCH ×4 (08:32→20:34)
[2017-12-03] MEDS: *HR* SitaGLIPtin 100 MG TABLET PO SCH (08:33)
[2017-12-03] MEDS: Diltiazem CD (24hr) 120 MG CAPSULE PO SCH (08:33)
[2017-12-03] MEDS: Sennosides 8.6 MG TABLET PO SCH (08:33)
[2017-12-03] MEDS: Aspirin 81 MG TAB.CHEW PO SCH (08:33)
[2017-12-03] MEDS: Spironolactone 25 MG TABLET PO SCH (08:33)
[2017-12-03 10:40] LABS: BUN/Creatinine Ratio 33 (6-26); Blood Urea Nitrogen 43 mg/dL (8-23); Carbon Dioxide 32 mEq/L (23-29); Chloride 99 mEq/L (98-107); Glucose 168 mg/dL (70-105); Osmolality,Calculated 299 (280-300); Potassium 3.5 mEq/L (3.5-5.1); Sodium 137 mEq/L (136-145); eGFR For African Americans > 60 (> 60); eGFR For Non-African Americans 53 (> 60)
--- NOTE | 2017-12-03 16:41 | Event Note ---
Date of Encounter: 12/03/17 Time of Encounter: 16:39 Mr. Diaz was admitted earlier this morning for evaluation and management of altered mental status. Currently he is awake alert oriented 3. He recalls falling yesterday, did not report any injuries, was too weak to get up. On exam he is in no acute distress. Heart is regular. Abdomen is obese, soft, nontender. Skin hyperpigmentation noted on lower extremities. Plan: Frequent neuro checks. Fall precautions. Monitor sodium levels. IV fluids. Continue insulin regimen. PT OT evaluation. May need social work consult for placement.
[2017-12-03] MEDS: traZODone 50 MG TABLET PO SCH (20:35)
[2017-12-04 03:37] LABS: Basophils % 0.5 %; Red Blood Count 3.76 M/mcL (4.19-5.50); Red Cell Distribution Width 19.3 % (11.5-14.5)
[2017-12-04 03:38] LABS: Hematocrit 29.9 % (37.5-50.1); Hemoglobin 8.6 g/dL (12.9-16.9); Mean Corpuscular HGB Conc 28.8 g/dL (31.6-35.5); Mean Corpuscular Hemoglobin 22.9 pg (28.0-33.3); Mean Corpuscular Volume 79.5 fL (83.0-100.0); Mean Platelet Volume 9.6 fL (9.4-12.4); Platelet Count 304 K/mcL (140-400); Segmented Neutrophils % 75.9 %
[2017-12-04 03:39] LABS: Eosinophils # 0.3 K/mcL (0.0-0.6); Eosinophils % 3.2 %; Immature Granulocytes % 0.5 % (0-4); Lymphocytes # 0.7 K/mcL (0.6-4.6); Lymphocytes % 8.6 %; Monocytes % 11.3 %; Neutrophils # 6.4 K/mcL (1.6-8.9)
[2017-12-04 04:47] LABS: Potassium 3.7 mEq/L (3.5-5.1)
[2017-12-04 05:12] LABS: Hypochromasia Present (Not Present); Platelet Estimate Normal (Normal)
[2017-12-04] MEDS: Sennosides 8.6 MG TABLET PO SCH (08:09)
[2017-12-04] MEDS: *HR* SitaGLIPtin 100 MG TABLET PO SCH (08:09)
[2017-12-04] MEDS: Aspirin 81 MG TAB.CHEW PO SCH (08:09)
[2017-12-04] MEDS: Spironolactone 25 MG TABLET PO SCH (08:09)
[2017-12-04] MEDS: Diltiazem CD (24hr) 120 MG CAPSULE PO SCH (08:09)
[2017-12-04] MEDS: Insulin LISPRO 300 UNITS/3 ML VIAL SQ SCH ×4 (08:10→21:01)
[2017-12-04] MEDS: Insulin DETEMIR 100 UNIT/ML X5UNITS SQ SCH ×2 (08:10→21:01)
--- NOTE | 2017-12-04 13:18 | Internal Med Progress Note ---
Date of Encounter: 12/04/17 Time of Encounter: 13:15 - Assessment and plan (1) Multiple falls Current Visit: Yes Status: Acute Assessment and plan: Full precautions. Bed alarm. PT OT evaluation. Social service consult. Patient may benefit from a short course of rehabilitation. He has had multiple falls with several injuries, recently he had fallen at home. She is unsafe for discharge home at this point and therefore well and required continued hospitalization. He meets inpatient criteria due to encephalopathy, uncontrolled diabetes mellitus and a fall. With further risk of injury, worsening diabetes and cardiovascular collapse. For past medical history, family history social history and review of systems please refer to the H&P dictated yesterday at this facility. There are no changes or updates. (2) COPD (chronic obstructive pulmonary disease) Current Visit: Yes Status: Acute Assessment and plan: Inhaled bronchodilators. Supplemental oxygen. Qualifiers: COPD type: emphysema Emphysema type: unspecified Qualified Code(s): J43.9 - Emphysema, unspecified (3) Encephalopathy Current Visit: Yes Status: Acute Assessment and plan: Improved. Avoid sedative medication. Fall precautions. Delirium precautions. (4) Morbid obesity Current Visit: Yes Status: Acute Assessment and plan: Outpatient weight loss regimen. (5) Diabetes mellitus with neuropathy Current Visit: No Status: Chronic Assessment and plan: He presented with hyperglycemia which could have contributed to encephalopathy. Currently blood glucose is better controlled. I suspect some difficulty with medications at home given that he lives alone. We will consult social problems specialist. Qualifiers: Diabetes mellitus type: type 2 Diabetes mellitus half-way insulin use: with half-way use Qualified Code(s): E11.40 - Type 2 diabetes mellitus with diabetic neuropathy, unspecified; Z79.4 - [facility] (current) use of insulin; 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; 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; 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 (6) GRAZYNA (obstructive sleep apnea) Current Visit: No Status: Chronic Assessment and plan: Nighttime CPAP - Subjective Interval history: Patient's mental status has improved today. He denies chest pain and shortness of breath. Denies headache and confusion. He was admitted yesterday after being fine found lying on the floor naked and he was combative and confused. On review of his medical records he has multiple admissions almost monthly for recurrent falls. - Constitutional Vitals: Temp Pulse Resp BP Pulse Ox 97.9 F 74 16 143/82 94 12/04/17 10:15 12/04/17 10:15 12/04/17 10:15 12/04/17 10:15 12/04/17 10:15 General appearance: Present: A&O X 3, no acute distress - Respiratory Respiratory exam: Present: CTAB. Absent: accessory muscle use, rales, rhonchi, wheezes - Cardiovascular Cardiovascular exam: Present: RRR, +S1, +S2. Absent: diastolic murmur, gallop, rubs, systolic murmur - GI/Abdominal GI/Abdominal exam: Present: normal bowel sounds, soft, no peritoneal signs. Absent: distended, tenderness - Extremities Exam Extremities exam: Present: warm, radial pulses palpable and symmetrical. Absent : calf tenderness, cyanotic, pedal edema - Skin Skin exam: Present: dry, intact Internal Medicine: Result - Labs CBC & Chem 7: 12/04/17 02:54 12/04/17 02:54 Labs: Short CBC 12/04/17 Range/Units 02:54 WBC 8.4 (4.3-11.1) K/mcL Hgb 8.6 L (12.9-16.9) g/dL Hct 29.9 L (37.5-50.1) % Plt Count 304 (140-400) K/mcL Neutrophils # 6.4 (1.6-8.9) K/mcL BMP 12/04/17 02:54 Sodium 136 Potassium 3.7 Chloride 100 Carbon Dioxide 29 BUN 42 H Creatinine 1.63 H Glucose 205 H Calcium 9.0 - ABG Interpretation ABG results: PT/INR, D-dimer PT 13.8 Seconds (9.4-12.1) H 12/02/17 23:49 Consult Discharge Plan - Plan
[2017-12-04] MEDS ORDERED: Ipratropium/Albuterol Neb 3 ML IH PRN (13:30)
[2017-12-04] MEDS: Bumetanide 1 MG TABLET PO SCH (16:45)
[2017-12-04] MEDS: traZODone 50 MG TABLET PO SCH (21:01)
[2017-12-05 04:48] LABS: Calcium 9.2 mg/dL (8.6-10.3); Potassium 3.8 mEq/L (3.5-5.1)
[2017-12-05] MEDS: Bumetanide 1 MG TABLET PO SCH ×3 (07:53→17:08)
[2017-12-05] MEDS: Insulin LISPRO 300 UNITS/3 ML VIAL SQ SCH ×4 (07:53→20:41)
[2017-12-05] MEDS ORDERED: predniSONE 10 MG TABLET PO SCH (09:00)
[2017-12-05 09:39] LABS: Estimated Average Glucose 223 mg/dl; Hemoglobin A1C 9.4 %
[2017-12-05] MEDS: Diltiazem CD (24hr) 120 MG CAPSULE PO SCH (09:56)
[2017-12-05] MEDS: Sennosides 8.6 MG TABLET PO SCH (09:56)
[2017-12-05] MEDS: *HR* SitaGLIPtin 100 MG TABLET PO SCH (09:56)
[2017-12-05] MEDS: Aspirin 81 MG TAB.CHEW PO SCH (09:57)
[2017-12-05] MEDS: Spironolactone 25 MG TABLET PO SCH (09:57)
[2017-12-05] MEDS: Insulin DETEMIR 100 UNIT/ML X5UNITS SQ SCH ×2 (09:58→20:41)
--- NOTE | 2017-12-05 13:02 | Internal Med Progress Note ---
Date of Encounter: 12/05/17 Time of Encounter: 13:00 - Assessment and plan (1) Multiple falls Current Visit: Yes Status: Acute Assessment and plan: PT OT evaluation still pending. He remains at very high fall risk. Still very high discharge risk given that he lives alone and he has had multiple falls. We will follow up with PT OT regarding disposition and recommendations. Continue with bed alarm, fall precautions. (2) COPD (chronic obstructive pulmonary disease) Current Visit: Yes Status: Acute Assessment and plan: Inhaled bronchodilators. Supplemental oxygen. Qualifiers: COPD type: emphysema Emphysema type: unspecified Qualified Code(s): J43.9 - Emphysema, unspecified (3) Encephalopathy Current Visit: Yes Status: Acute Assessment and plan: Currently back to baseline. Avoid sedative medication. Fall precautions. Delirium precautions. (4) Morbid obesity Current Visit: Yes Status: Acute Assessment and plan: Outpatient weight loss regimen. (5) Diabetes mellitus with neuropathy Current Visit: No Status: Chronic Assessment and plan: He presented with hyperglycemia which could have contributed to encephalopathy. Currently blood glucose is better controlled. I suspect some difficulty with medications at home given that he lives alone. We will consult social work professor. Qualifiers: Diabetes mellitus type: type 2 Diabetes mellitus fdc insulin use: with long term care social worker use Qualified Code(s): E11.40 - Type 2 diabetes mellitus with diabetic neuropathy, unspecified; Z79.4 - [facility] (current) use of insulin; Z79.4 - [facility] (current) use of insulin; Z79.4 - [facility] (current) use of insulin; Z79.4 - [facility] (current) use of insulin (6) GRAZYNA (obstructive sleep apnea) Current Visit: No Status: Chronic Assessment and plan: Nighttime CPAP - Subjective Interval history: Patient reports being very forgetful. He reports unsteadiness on his feet, he has not had a fall since being hospitalized. Denies chest pain and shortness of breath. - Constitutional Vitals: Temp Pulse Resp BP Pulse Ox 98.0 F 89 18 132/78 93 12/05/17 10:18 12/05/17 10:18 12/05/17 10:18 12/05/17 10:18 12/05/17 10:18 General appearance: Present: A&O X 3, no acute distress - Respiratory Respiratory exam: Present: CTAB. Absent: accessory muscle use, rales, rhonchi, wheezes - Cardiovascular Cardiovascular exam: Present: RRR, +S1, +S2. Absent: diastolic murmur, gallop, rubs, systolic murmur - GI/Abdominal GI/Abdominal exam: Present: normal bowel sounds, soft, no peritoneal signs. Absent: distended, tenderness - Extremities Exam Extremities exam: Present: warm, radial pulses palpable and symmetrical. Absent : calf tenderness, cyanotic, pedal edema Internal Medicine: Result - Labs CBC & Chem 7: 12/04/17 02:54 12/05/17 04:15 Labs: BMP 12/05/17 04:15 Sodium 136 Potassium 3.8 Chloride 102 Carbon Dioxide 28 BUN 35 H Creatinine 1.41 H Glucose 184 H Calcium 9.2 - ABG Interpretation ABG results: PT/INR, D-dimer PT 13.8 Seconds (9.4-12.1) H 12/02/17 23:49 Consult Discharge Plan - Plan Referrals: Damian Seymour MD [Primary Care Provider] -
[2017-12-05] MEDS: Lactulose Oral Soln 20 GM/30 ML UDC PO SCH (17:08)
[2017-12-05] MEDS: Miconazole 2% ointment 114 GM TUBE TP SCH ×2 (17:09→20:39)
[2017-12-05] MEDS: traZODone 50 MG TABLET PO SCH (20:38)
[2017-12-06 08:12] LABS: BUN/Creatinine Ratio 27 (6-26); Blood Urea Nitrogen 34 mg/dL (8-23); Calcium 9.1 mg/dL (8.6-10.3); Carbon Dioxide 30 mEq/L (23-29); Chloride 102 mEq/L (98-107); Glucose 93 mg/dL (70-105); Osmolality,Calculated 293 (280-300); Potassium 3.8 mEq/L (3.5-5.1); Sodium 138 mEq/L (136-145); eGFR For African Americans > 60 (> 60); eGFR For Non-African Americans 56 (> 60)
[2017-12-06] MEDS: Diltiazem CD (24hr) 120 MG CAPSULE PO SCH (09:26)
[2017-12-06] MEDS: Aspirin 81 MG TAB.CHEW PO SCH (09:26)
[2017-12-06] MEDS: Bumetanide 1 MG TABLET PO SCH ×3 (09:26→15:45)
[2017-12-06] MEDS: Sennosides 8.6 MG TABLET PO SCH (09:26)
[2017-12-06] MEDS: Spironolactone 25 MG TABLET PO SCH (09:26)
[2017-12-06] MEDS: *HR* SitaGLIPtin 100 MG TABLET PO SCH (09:26)
[2017-12-06] MEDS: Lactulose Oral Soln 20 GM/30 ML UDC PO SCH (09:26)
[2017-12-06] MEDS: Insulin LISPRO 300 UNITS/3 ML VIAL SQ SCH ×4 (09:27→20:51)
[2017-12-06] MEDS: Insulin DETEMIR 100 UNIT/ML X5UNITS SQ SCH ×2 (09:31→20:50)
[2017-12-06] MEDS: Miconazole 2% ointment 114 GM TUBE TP SCH ×2 (12:29→20:50)
--- NOTE | 2017-12-06 13:21 | Internal Med Progress Note ---
Date of Encounter: 12/06/17 Time of Encounter: 13:17 - Assessment and plan (1) Multiple falls Current Visit: Yes Status: Acute Assessment and plan: PT OT recs SNF. He remains at very high fall risk. Still very high discharge risk given that he lives alone and he has had multiple falls. Continue with bed alarm, fall precautions. Pending placement (2) Acute metabolic encephalopathy Current Visit: Yes Status: Acute Assessment and plan: Currently back to baseline. Avoid sedative medication. Fall precautions. Delirium precautions. (3) COPD (chronic obstructive pulmonary disease) Current Visit: Yes Status: Acute Assessment and plan: Inhaled bronchodilators. Supplemental oxygen. Qualifiers: COPD type: emphysema Emphysema type: unspecified Qualified Code(s): J43.9 - Emphysema, unspecified (4) Hyponatremia Current Visit: Yes Status: Resolved Assessment and plan: resolved (5) Morbid obesity Current Visit: Yes Status: Acute (6) DVT prophylaxis Current Visit: No Status: Acute Assessment and plan: Patient is fall risk, will continue aspirin that he takes at home, will not start heparin or Lovenox because of frequent falls.. - Subjective Interval history: No acute issues overnight. Patient does refuse insulin this morning. He denies fevers/chills, n/v, SOB - Constitutional Vitals: Temp Pulse Resp BP Pulse Ox 98.4 F 89 18 108/68 99 12/06/17 11:01 12/06/17 11:01 12/06/17 11:01 12/06/17 11:01 12/06/17 11:01 General appearance: Present: A&O X 3, no acute distress Exam: - Respiratory Respiratory exam: Present: CTAB. Absent: accessory muscle use, rales, rhonchi, wheezes - Cardiovascular Cardiovascular exam: Present: RRR, +S1, +S2. Absent: diastolic murmur, gallop, rubs, systolic murmur - GI/Abdominal GI/Abdominal exam: Present: normal bowel sounds, soft, no peritoneal signs. Absent: distended, tenderness - Extremities Exam Extremities exam: Present: warm, radial pulses palpable and symmetrical. Absent : calf tenderness, cyanotic, pedal edema Internal Medicine: Result - Labs CBC & Chem 7: 12/04/17 02:54 12/06/17 07:10 Labs: BMP 12/06/17 07:10 Sodium 138 Potassium 3.8 Chloride 102 Carbon Dioxide 30 H BUN 34 H Creatinine 1.25 Glucose 93 Calcium 9.1 - ABG Interpretation ABG results: PT/INR, D-dimer PT 13.8 Seconds (9.4-12.1) H 12/02/17 23:49 Consult Discharge Plan - Plan Referrals: Damian Seymour MD [Primary Care Provider] -
[2017-12-06] MEDS: traZODone 50 MG TABLET PO SCH (20:50)
[2017-12-07] MEDS: Diltiazem CD (24hr) 120 MG CAPSULE PO SCH (09:05)
[2017-12-07] MEDS: Miconazole 2% ointment 114 GM TUBE TP SCH (09:05)
[2017-12-07] MEDS: Sennosides 8.6 MG TABLET PO SCH (09:05)
[2017-12-07] MEDS: Lactulose Oral Soln 20 GM/30 ML UDC PO SCH (09:05)
[2017-12-07] MEDS: Bumetanide 1 MG TABLET PO SCH (09:06)
[2017-12-07] MEDS: Insulin DETEMIR 100 UNIT/ML X5UNITS SQ SCH (09:06)
[2017-12-07] MEDS: Aspirin 81 MG TAB.CHEW PO SCH (09:06)
[2017-12-07] MEDS: *HR* SitaGLIPtin 100 MG TABLET PO SCH (09:06)
[2017-12-07] MEDS: Insulin LISPRO 300 UNITS/3 ML VIAL SQ SCH (09:07)
--- NOTE | 2017-12-07 10:44 | Discharge Summary ---
- NOTES TO OUTPATIENT PROVIDER Notes to Outpatient Provider: - Follow-up blood pressure. - Altered mental status many medications had to be adjusted because of this. - Non-compliant with diet, fluid restricted for 2 L daily. Date of Encounter: 12/07/17 Time of Encounter: 10:35 - Discharge Diagnosis (1) Acute metabolic encephalopathy Priority: Primary Status: Acute (2) Multiple falls Priority: Secondary Status: Acute (3) COPD (chronic obstructive pulmonary disease) Priority: Secondary Status: Acute Qualifiers: COPD type: emphysema Emphysema type: unspecified Qualified Code(s): J43.9 - Emphysema, unspecified (4) Hyponatremia Priority: Secondary Status: Resolved (5) Morbid obesity Priority: Secondary Status: Acute (6) DVT prophylaxis Priority: Secondary Status: Acute Hospital course: Mr. Diaz is a 72 year old male was admitted evaluation after he was found naked on the floor at home with decreased mental status. He has a comorbid history of diabetes type 2 on insulin, compensated CHF, possible COPD, hypertension, hyperlipidemia. He apparently lives at home alone. Report suggested that he call the EMS. On arrival he was found to be naked on the floor minimally responsive and was much between his home furniture. On arrival in the ER, he was defiant and urinated on the floor. Due to the agitation he was given a dose of Haldol which helped calm him down but also cause some somnolence. Trauma screen in the ER was negative. Sepsis screen in the ER involving chest x-ray and UA was unremarkable. Patient has home with hospice orders from past and has many anticholinergic medications as well as benzodiazepines and opiates at home. Patient was admitted for further monitoring and treatment. All sedating medications were held. Patient had hyponatremia and so high dose Lasix was continued and Bumex was rsumed and he was fluid restricted. He did well with this being on one diuretic only. He did want to have increasing fluids and demanded to drink more which would explain why he was on two diuretics. After witholding many medications with adverse side effects patient mental status improved and he was at baseline. Patient required placement to SNF since he was unable to care for himself and also having polypharmacy overdose. He was approved for SNF and discharged to [place] in stable condition. - Time Spent with Patient Total time spent providing and/or coordinating discharge services: - Discharge Medications Prescriptions: Oxycodone HCl [Oxaydo] 5 mg PO Q4H PRN 1 Days #3 tablet.orl PRN Reason: Pain Home Medications: Aspirin 81 mg PO DAILY 04/28/15 [History] Atorvastatin [Lipitor] 40 mg PO HS 04/28/15 [History] Ferrous Sulfate 325 mg PO BID 04/28/15 [History] Albuterol Sulfate [Proair Hfa] 2 puff IH Q4H PRN 01/25/17 [History] Oxygen 3 l NS CONT 02/03/17 [History] Spironolactone [Aldactone] 12.5 mg PO DAILY 06/17/17 [History] Ipratropium/Albuterol Neb [Duoneb] 3 ml IH Q4HR PRN 07/01/17 [History] Lactulose 10 gm PO DAILY 08/30/17 [History] Pantoprazole Sodium [Protonix] 40 mg PO DAILY 08/30/17 [History] Sennosides [Senokot] 8.6 mg PO DAILY 08/30/17 [History] SitaGLIPtin [Januvia] 100 mg PO DAILY 08/30/17 [History] Diltiazem CD (24hr) [Cardizem CD] 120 mg PO DAILY 09/20/17 [History] Insulin DETEMIR [Levemir] 35 unit SQ BID 09/20/17 [History] Bumetanide [Bumex] 1 mg PO TID #90 tablet 09/23/17 [Rx] Acetaminophen [Tylenol 650mg SUPP] 650 mg RC Q4HR 10/04/17 [History] traZODone [TraZODone] 50 mg PO HS 11/15/17 [History] Silvasorb 1 appl TP DAILY tube 11/18/17 [Rx] Miconazole 2% ointment [Aloe [place] Antifungal Ointment] 1 appl TP BID tube [Rx] Oxycodone HCl [Oxaydo] 5 mg PO Q4H PRN 1 Days #3 tablet.orl 12/07/17 [Rx] Potassium Chloride 20 meq PO DAILY tab.er.prt 12/07/17 [Rx] Allergies/Adverse Reactions: 3 Allergy/AdvReac Type Severity Reaction Status Date / Time bupropion [From Wellbutrin] Allergy Difficulty Verified 06/17/17 00:14 Breathing codeine Allergy Difficulty Verified 06/17/17 00:14 Breathing Opioids-Meperidine and Allergy Difficulty Verified 06/17/17 00:14 Related Breathing [Opioids-Meperidine & Related] Date of admission: 12/04/17 13:26 Primary care physician: Damian Seymour, Consults: 12/05/17 08:32 Consult to Nurse Navigator [CONS] Routine Comment: CHF education Discharging clinician: Deb Peña - Constitutional Vitals: Temp Pulse Resp BP Pulse Ox 97.3 F L 102 16 97/58 96 12/07/17 06:42 12/07/17 06:42 12/07/17 06:42 12/07/17 06:42 12/07/17 09:49 General appearance: Present: A&O X 3, no acute distress Exam: - Respiratory Respiratory exam: Present: CTAB. Absent: accessory muscle use, rales, rhonchi, wheezes - Cardiovascular Cardiovascular exam: Present: RRR, +S1, +S2. Absent: diastolic murmur, gallop, rubs, systolic murmur - GI/Abdominal GI/Abdominal exam: Present: normal bowel sounds, soft, no peritoneal signs. Absent: distended, tenderness - Extremities Exam Extremities exam: Present: warm, radial pulses palpable and symmetrical. Absent : calf tenderness, cyanotic, pedal edema - Patient Status Disposition: Transfer SNF Condition: Good Functional capacity at discharge: independent ambulation Overall status at discharge: patient is progressing back to baseline - Discharge Instructions Follow Up With: Damian Seymour MD [Primary Care Provider] - Forms: ED Satisfaction Letter - Diet and Activity Activity: as per physical therapy Diet: diabetic diet (FLUID RESTRICT TO 2 L DAILY)
[2017-12-07 11:13] VITALS: BP 124/76
--- NOTE | 2017-12-07 11:18 | Physician Discharge Referral ---
ExtendedCare Referral Info Institutional Level of Care: Skilled - Diagnosis (1) Acute metabolic encephalopathy Priority: Primary Status: Acute (2) Multiple falls Priority: Secondary Status: Acute (3) COPD (chronic obstructive pulmonary disease) Priority: Secondary Status: Acute (4) Hyponatremia Priority: Secondary Status: Resolved (5) Morbid obesity Priority: Secondary Status: Acute (6) DVT prophylaxis Priority: Secondary Status: Acute - Transfer Medications Prescriptions: Oxycodone HCl [Oxaydo] 5 mg PO Q4H PRN 1 Days #3 tablet.orl PRN Reason: Pain Home Medications: Aspirin 81 mg PO DAILY 04/28/15 [History] Atorvastatin [Lipitor] 40 mg PO HS 04/28/15 [History] Ferrous Sulfate 325 mg PO BID 04/28/15 [History] Albuterol Sulfate [Proair Hfa] 2 puff IH Q4H PRN 01/25/17 [History] Oxygen 3 l NS CONT 02/03/17 [History] Spironolactone [Aldactone] 12.5 mg PO DAILY 06/17/17 [History] Ipratropium/Albuterol Neb [Duoneb] 3 ml IH Q4HR PRN 07/01/17 [History] Lactulose 10 gm PO DAILY 08/30/17 [History] Pantoprazole Sodium [Protonix] 40 mg PO DAILY 08/30/17 [History] Sennosides [Senokot] 8.6 mg PO DAILY 08/30/17 [History] SitaGLIPtin [Januvia] 100 mg PO DAILY 08/30/17 [History] Diltiazem CD (24hr) [Cardizem CD] 120 mg PO DAILY 09/20/17 [History] Insulin DETEMIR [Levemir] 35 unit SQ BID 09/20/17 [History] Bumetanide [Bumex] 1 mg PO TID #90 tablet 09/23/17 [Rx] Acetaminophen [Tylenol 650mg SUPP] 650 mg RC Q4HR 10/04/17 [History] traZODone [TraZODone] 50 mg PO HS 11/15/17 [History] Silvasorb 1 appl TP DAILY tube 11/18/17 [Rx] Miconazole 2% ointment [Aloe [place] Antifungal Ointment] 1 appl TP BID tube [Rx] Oxycodone HCl [Oxaydo] 5 mg PO Q4H PRN 1 Days #3 tablet.orl 12/07/17 [Rx] Potassium Chloride 20 meq PO DAILY tab.er.prt 12/07/17 [Rx] Allergies/Adverse Reactions: 3 Allergy/AdvReac Type Severity Reaction Status Date / Time bupropion [From Wellbutrin] Allergy Difficulty Verified 06/17/17 00:14 Breathing codeine Allergy Difficulty Verified 06/17/17 00:14 Breathing Opioids-Meperidine and Allergy Difficulty Verified 06/17/17 00:14 Related Breathing [Opioids-Meperidine & Related] - Respiratory Orders Oxygen / L per min (3 L) Smoking Cessation: Smoking cessation has been advised. For more information, call the [place] Tobacco Quit Line at 5-061-MYDJ-NOW. - Advance Directives Code Status: Full Code - Rehabiliation Orders Rehab Potential: Fair Rehab Orders: Evaluation for Physical Therapy, Evaluation for Occupational Therapy - Treatments Skin tear care topically daily PRN per policy, May check for fecal impaction rectally daily PRN - Diet Orders No Concentrated Sweets, Cardiac (2 L Fluid restricted, diabetic, cardiac) CERTIFICATION: I certify that the transfer of the above named patient to an Extended Care Facility is necessary for the continuing treatment of the diagnosis listed. The above information is true and accurate reflection of patient's current condition. Confidential - Redisclosure prohibited without a patient's written consent.
--- NOTE | 2017-12-08 06:14 | Electrocardiograph Report ---
[address] [address] Test Date: 2017-12-03 Pat Name: Jaime Diaz Department: 102 Room: 3A12 Gender: M Official Court Reporter: Tayler : 1945 Requested By: Diya Patricio Order Number: [id number] Reading MD: Michele Santana Measurements Intervals [place] Rate: 80 P: 14 FL: 134 QRS: 117 QRSD: 190 T: -50 QT: 491 QTc: 527 Interpretive Statements SINUS RHYTHM WITH OCCASIONAL VENTRICULAR PREMATURE COMPLEXES MARKED RIGHT AXIS DEVIATION RIGHT BUNDLE BRANCH BLOCK BASELINE ARTIFACT, REPEAT EKG BASELINE ARTIFACT COMPLICATES ACCURATE INTERPRETATION Electronically Signed On 12-08-2017 6:13:12 EDT by Michele Santana
== END 2017-12-07 13:20 | DRG 71 ==
LOC: 3BNU 23:36 → EMEROO 23:36 → SUATTDRO 12-03 02:13 → 3ANU 12-03 02:25
PROVIDERS: ADMIT Internal Medicine Hematology & Oncology; ATTEND Internal Medicine

== ENCOUNTER 2018-06-06 17:32 | Inpatient (IN) ==
--- NOTE | 2018-06-06 17:44 | Emergency Department Note ---
Disposition Clinical Impression: Bradycardia, Acute electrocardiography changes Disposition: Admitted As Inpatient Condition: Fair Time of Disposition: 20:15 General Adult HPI - General Stated complaint: WESLEY Time Seen by Provider: 06/06/18 17:34 Source: EMS Mode of arrival: EMS Limitations: no limitations Nursing Notes Reviewed: Yes Vital Signs Reviewed: Yes - History of Present Illness HPI Narrative: Male patient presenting to emergency department complaining of shortness of breath that began this morning while he was at rest. Does have dyspnea on exertion. Patient has history of CHF and COPD. Is chronically on 3 L of oxygen. It was reported at the [facility] that his oxygen saturation decreased to 88% range. Patient denies any chest pain fevers or cough. He denies any nausea vomiting or abdominal pain. He is unaware if he has an increase in the swelling in his lower extremities. He has no other complaints at this time. - Related Data Home Medications Medication Instructions Recorded Confirmed Aspirin 81 mg PO DAILY 04/28/15 03/30/18 Albuterol Sulfate [Proair Hfa] 2 puff IH Q4H PRN 01/25/17 03/30/18 Spironolactone [Aldactone] 25 mg PO TID 06/17/17 03/30/18 Lactulose 10 gm PO DAILY 08/30/17 03/30/18 Sennosides [Senokot] 8.6 mg PO DAILY 08/30/17 03/30/18 SitaGLIPtin [Januvia] 100 mg PO DAILY 08/30/17 03/30/18 Acetaminophen [Tylenol 650mg SUPP] 650 mg RC Q4HR PRN 10/04/17 03/30/18 traZODone [TraZODone] 200 mg PO HS 11/15/17 03/30/18 Furosemide [Lasix] 80 mg PO TID 03/30/18 03/30/18 Insulin LISPRO [HumaLOG] 2 - 14 units SQ TIDWM PRN 03/30/18 03/30/18 Melatonin [Melatin] 6 mg PO HS 03/30/18 03/30/18 OXcarbazepine [Trileptal] 150 mg PO BID 03/30/18 03/30/18 Omeprazole [PriLOSEC] 20 mg PO DAILY 03/30/18 03/30/18 Sertraline [Zoloft] 200 mg PO DAILY 03/30/18 03/30/18 risperiDONE [RisperDAL] 0.25 mg PO TID 03/30/18 03/30/18 Ferrous Sulfate [Iron] 325 mg PO BID 06/06/18 06/06/18 Insulin DETEMIR [Levemir] 35 units SQ BID 06/06/18 06/06/18 Previous Rx's Medication Instructions Recorded Potassium Chloride 20 meq PO DAILY tab.er.prt 12/07/17 LORazepam [Ativan] 0.5 mg PO TID 5 Days #15 tablet 04/05/18 Allergies Allergy/AdvReac Type Severity Reaction Status Date / Time bupropion [From Wellbutrin] Allergy Difficulty Verified 03/30/18 12:42 Breathing codeine Allergy Difficulty Verified 03/30/18 12:42 Breathing Opioids-Meperidine and Allergy Difficulty Verified 03/30/18 12:42 Related Breathing [Opioids-Meperidine & Related] All systems ED: reviewed and negative except as stated. Review of Systems: As Per HPI Constitutional: Denies: fever Cardiovascular: Denies: chest pain, syncope Respiratory: Reports: dyspnea, other (Orthopnea). Denies: cough Gastrointestinal: Denies: abdominal pain, nausea, vomiting, diarrhea Musculoskeletal: Denies: back pain, neck pain Integumentary: Denies: rash Neurological: Reports: weakness Past Medical History - Past Medical History Attestation: Yes The following information was validated with the patient. Source: patient Medical history: Reports: arthritis, atrial fibrillation, CHF, COPD, diabetes, hyperlipidemia, hypertension, liver disease, renal disease Surgical history: Reports: orthopedic, other, pacemaker/AICD Psychiatric history: Reports: anxiety, depression - Social History Smoking Status: Former smoker Smokeless Tobacco Status: No Alcohol use: Reports: none Drug use: Reports: none Physical Exam - General Limitations: no limitations General appearance: alert, in no apparent distress - Head Head exam: atraumatic, normocephalic, normal inspection - Eye Eye exam: Present: normal appearance, PERRL, EOMI - ENT ENT exam: normal exam, normal oropharynx, mucous membranes moist - Neck Neck exam: Present: normal inspection, full ROM, trachea midline - Chest Chest inspection: Present: normal inspection, symmetric chest wall rise - Respiratory Respiratory exam: Present: other (Diminished in the bases.). Absent: respiratory distress - Cardiovascular Cardiovascular exam: Present: regular rate, normal rhythm, normal heart sounds - Abdominal Exam Abdominal exam: Present: soft, Non-Tender, distention (Rounded). Absent: tenderness, guarding, rebound, rigidity, organomegaly - Extremities Exam Extremities exam: Present: normal inspection, full ROM, pedal edema (Pitting to the knees). Absent: tenderness - Neurological Exam Neurological exam: Present: alert, oriented X3 - Psychiatric Psychiatric exam: Present: normal affect, normal mood - Skin Skin exam: Present: warm, dry, intact, normal color. Absent: rash, cyanosis, diaphoresis Course Course Narrative: Patient has ejection fraction of 45-55%. We will get a basic lab workup on patient as well as a chest x-ray. He is well-appearing with an oxygen saturation in the high 90s on his normal 3 L. he has been giving the nurses a hard time. Apical he states he does not want his labs drawn. However, return to the room he is very appropriate with me. He is agreeable to further evaluation. - Reevaluation(s) Reevaluation #1: My attending entered the patient's room and he was diaphoretic and increasingly short of breath. He did have EKG changes with significant ST elevation on the bedside monitor. A STEMI alert was called based on this. Patient was given aspirin. He then reports that he did have episodic chest pain earlier today. He initially denied this. We interrogated patient's pacemaker. He was found to have a single ventricle paced pacemaker with a low rate of 40. They report no malfunctions and no rate reports of an increased rate. - Consultations Consultation #1: Dr. Melissa at bedside. States that he will be taking the patient to the [facility]. Is requesting that the Brilinta be given in the [facility]. He is requesting for heparin at this time. We have given the patient that an aspirin. Time: 19:45 Consultation #2: Dr. Melissa canceled STEMI alert. He is requesting patient be admitted to the hospitalist and to contact him if he has an elevation in his troponins. Time: 20:03 Consultation #3: I confirmed with Dr. Melissa. He states we can withhold the heparin drip at this time. He does want to be made aware if the troponin elevates any above the 0.03 that is at this time. And at that time he will instruct on a heparin drip or not. Time: 20:27 Vital Signs Temperature 98.0 F 06/06/18 17:39 Pulse Rate 41 06/06/18 17:39 Respiratory Rate 16 06/06/18 17:39 Blood Pressure 112/69 06/06/18 17:39 O2 Sat by Pulse Oximetry 99 06/06/18 17:39 Temperature 98.0 F 06/06/18 17:39 Pulse Rate 41 06/06/18 17:39 Respiratory Rate 16 06/06/18 17:39 Blood Pressure 112/69 06/06/18 17:39 O2 Sat by Pulse Oximetry 99 06/06/18 17:39 Oxygen Delivery Oxygen Delivery Nasal Cannula Medical Decision Making - Medical Records Medical records reviewed: Yes I reviewed the patient's medical records. - Lab Data Lab results reviewed: Yes I reviewed the patient's lab results. Result diagrams: 06/06/18 18:40 06/06/18 18:40 Lab Results 06/06/18 06/06/18 06/06/18 Range/Units 18:40 18:40 18:40 WBC 7.9 (4.3-11.1) K/mcL RBC 4.11 L (4.19-5.50) M/mcL Hgb 10.0 L (12.9-16.9) g/dL Hct 32.6 L (37.5-50.1) % MCV 79.3 L (83.0-100.0) fL MCH 24.3 L (28.0-33.3) pg MCHC 30.7 L (31.6-35.5) g/dL RDW 19.1 H (11.5-14.5) % Plt Count 308 (140-400) K/mcL MPV 8.5 L (9.4-12.4) fL Immature Gran % 0.4 (0-4) % Seg Neutrophils % 74.5 % Lymphocytes % 6.8 % Monocytes % 14.8 % Eosinophils % 2.7 % Basophils % 0.8 % Neutrophils # 5.9 (1.6-8.9) K/mcL Lymphocytes # 0.5 L (0.6-4.6) K/mcL Monocytes # 1.2 (0.0-1.3) K/mcL Eosinophils # 0.2 (0.0-0.6) K/mcL Basophils # 0.1 (0.0-0.2) K/mcL PT (9.4-12.1) Seconds INR APTT (26.0-36.0) Seconds VBG pH (7.32-7.42) pH Units VBG pCO2 (41-51) mmHg VBG pO2 (25-50) mmHg VBG HCO3 (21-27) mEq/L Sodium 133 L (136-145) mEq/L Potassium 4.1 (3.5-5.1) mEq/L Chloride 92 L (98-107) mEq/L Carbon Dioxide 30 H (23-29) mEq/L BUN 52 H (8-23) mg/dL Creatinine 1.68 H (0.70-1.30) mg/dL Est GFR ( Amer) 49 L (> 60) Est GFR (Non-Af Amer) 40 L (> 60) BUN/Creatinine Ratio 31 H (6-26) Glucose 188 H (70-105) mg/dL Calculated Osmolality 295 (280-300) Calcium 9.4 (8.6-10.3) mg/dL Magnesium (1.6-2.6) mg/dL Troponin I 0.03 (< 0.04) ng/mL B-Natriuretic Peptide 305 H (Less than 100) pg/mL Beta-Hydroxybutyric Acd (0.02-0.27) mmol/L 06/06/18 06/06/18 06/06/18 Range/Units 18:40 18:49 18:49 WBC (4.3-11.1) K/mcL RBC (4.19-5.50) M/mcL Hgb (12.9-16.9) g/dL Hct (37.5-50.1) % MCV (83.0-100.0) fL MCH (28.0-33.3) pg MCHC (31.6-35.5) g/dL RDW (11.5-14.5) % Plt Count (140-400) K/mcL MPV (9.4-12.4) fL Immature Gran % (0-4) % Seg Neutrophils % % Lymphocytes % % Monocytes % % Eosinophils % % Basophils % % Neutrophils # (1.6-8.9) K/mcL Lymphocytes # (0.6-4.6) K/mcL Monocytes # (0.0-1.3) K/mcL Eosinophils # (0.0-0.6) K/mcL Basophils # (0.0-0.2) K/mcL PT 14.5 H (9.4-12.1) Seconds INR 1.3 APTT 30.7 (26.0-36.0) Seconds VBG pH (7.32-7.42) pH Units VBG pCO2 (41-51) mmHg VBG pO2 (25-50) mmHg VBG HCO3 (21-27) mEq/L Sodium (136-145) mEq/L Potassium (3.5-5.1) mEq/L Chloride (98-107) mEq/L Carbon Dioxide (23-29) mEq/L BUN (8-23) mg/dL Creatinine (0.70-1.30) mg/dL Est GFR ( Amer) (> 60) Est GFR (Non-Af Amer) (> 60) BUN/Creatinine Ratio (6-26) Glucose (70-105) mg/dL Calculated Osmolality (280-300) Calcium (8.6-10.3) mg/dL Magnesium 2.6 (1.6-2.6) mg/dL Troponin I (< 0.04) ng/mL B-Natriuretic Peptide (Less than 100) pg/mL Beta-Hydroxybutyric Acd 0.14 (0.02-0.27) mmol/L 06/06/18 Range/Units 18:56 WBC (4.3-11.1) K/mcL RBC (4.19-5.50) M/mcL Hgb (12.9-16.9) g/dL Hct (37.5-50.1) % MCV (83.0-100.0) fL MCH (28.0-33.3) pg MCHC (31.6-35.5) g/dL RDW (11.5-14.5) % Plt Count (140-400) K/mcL MPV (9.4-12.4) fL Immature Gran % (0-4) % Seg Neutrophils % % Lymphocytes % % Monocytes % % Eosinophils % % Basophils % % Neutrophils # (1.6-8.9) K/mcL Lymphocytes # (0.6-4.6) K/mcL Monocytes # (0.0-1.3) K/mcL Eosinophils # (0.0-0.6) K/mcL Basophils # (0.0-0.2) K/mcL PT (9.4-12.1) Seconds INR APTT (26.0-36.0) Seconds VBG pH 7.40 (7.32-7.42) pH Units VBG pCO2 49 (41-51) mmHg VBG pO2 43 (25-50) mmHg VBG HCO3 31 H (21-27) mEq/L Sodium (136-145) mEq/L Potassium (3.5-5.1) mEq/L Chloride (98-107) mEq/L Carbon Dioxide (23-29) mEq/L BUN (8-23) mg/dL Creatinine (0.70-1.30) mg/dL Est GFR ( Amer) (> 60) Est GFR (Non-Af Amer) (> 60) BUN/Creatinine Ratio (6-26) Glucose (70-105) mg/dL Calculated Osmolality (280-300) Calcium (8.6-10.3) mg/dL Magnesium (1.6-2.6) mg/dL Troponin I (< 0.04) ng/mL B-Natriuretic Peptide (Less than 100) pg/mL Beta-Hydroxybutyric Acd (0.02-0.27) mmol/L - Radiology Data Radiology results reviewed: Yes I reviewed the patient's radiology results. Chest X-Ray 06/06/18 17:41 IMPRESSION: Persistent mild size right pleural effusion with right basilar atelectasis or infiltrate. D/ / 06/06/2018 18:00:49 Paul Cherry MD / [facility] Interpreting Provider: Paul Cherry MD
--- NOTE | 2018-06-06 18:01 | Emergency Department Note ---
Disposition Clinical Impression: Bradycardia Disposition: Admitted As Inpatient General Adult HPI - General Chief complaint: ED Shortness of Breath/Dyspnea Stated complaint: WESLEY Time Seen by Provider: 06/06/18 17:34 Source: EMS Mode of arrival: EMS Limitations: no limitations - History of Present Illness Pain Scale: 0 - Related Data Home Medications Medication Instructions Recorded Confirmed Aspirin 81 mg PO DAILY 04/28/15 03/30/18 Ferrous Sulfate 325 mg PO BID 04/28/15 03/30/18 Albuterol Sulfate [Proair Hfa] 2 puff IH Q4H PRN 01/25/17 03/30/18 Oxygen 3 l NS CONT 02/03/17 03/30/18 Spironolactone [Aldactone] 25 mg PO TID 06/17/17 03/30/18 Lactulose 10 gm PO DAILY 08/30/17 03/30/18 Sennosides [Senokot] 8.6 mg PO DAILY 08/30/17 03/30/18 SitaGLIPtin [Januvia] 100 mg PO DAILY 08/30/17 03/30/18 Diltiazem CD (24hr) [Cardizem CD] 120 mg PO DAILY 09/20/17 03/30/18 Insulin DETEMIR [Levemir] 35 unit SQ BID 09/20/17 03/30/18 Acetaminophen [Tylenol 650mg SUPP] 650 mg RC Q4HR PRN 10/04/17 03/30/18 traZODone [TraZODone] 200 mg PO HS 11/15/17 03/30/18 Furosemide [Lasix] 80 mg PO TID 03/30/18 03/30/18 Hyoscyamine SL [Levsin Sl] 0.125 mg SL Q2H 03/30/18 03/30/18 Insulin LISPRO [HumaLOG] 2 - 14 units SQ TIDWM PRN 03/30/18 03/30/18 Melatonin [Melatin] 6 mg PO HS 03/30/18 03/30/18 OXcarbazepine [Trileptal] 150 mg PO BID 03/30/18 03/30/18 Omeprazole [PriLOSEC] 20 mg PO DAILY 03/30/18 03/30/18 Promethazine [Phenergan] 25 mg PO Q6HR 03/30/18 03/30/18 Sertraline [Zoloft] 200 mg PO DAILY 03/30/18 03/30/18 risperiDONE [RisperDAL] 0.25 mg PO TID 03/30/18 03/30/18 Previous Rx's Medication Instructions Recorded Silvasorb 1 appl TP DAILY tube 11/18/17 Potassium Chloride 20 meq PO DAILY tab.er.prt 12/07/17 Cefdinir [Omnicef] 300 mg PO BID #10 capsule 04/05/18 Doxycycline 100 mg PO BID #10 capsule 04/05/18 LORazepam [Ativan] 0.5 mg PO TID 5 Days #15 tablet 04/05/18 Metoprolol Succinate [Toprol Xl] 100 mg PO DAILY #30 tab.er.24h 04/05/18 Allergies Allergy/AdvReac Type Severity Reaction Status Date / Time bupropion [From Wellbutrin] Allergy Difficulty Verified 03/30/18 12:42 Breathing codeine Allergy Difficulty Verified 03/30/18 12:42 Breathing Opioids-Meperidine and Allergy Difficulty Verified 03/30/18 12:42 Related Breathing [Opioids-Meperidine & Related] Past Medical History - Past Medical History Medical history: Reports: arthritis, atrial fibrillation, CHF, COPD, diabetes, hyperlipidemia, hypertension, liver disease, renal disease Surgical history: Reports: orthopedic, other, pacemaker/AICD Psychiatric history: Reports: anxiety, depression - Social History Smoking Status: Former smoker Smokeless Tobacco Status: No Alcohol use: Reports: none Drug use: Reports: none Physical Exam - General Limitations: no limitations General appearance: alert Course Vital Signs Temperature 98.0 F 06/06/18 17:39 Pulse Rate 41 06/06/18 17:39 Respiratory Rate 16 06/06/18 17:39 Blood Pressure 112/69 06/06/18 17:39 O2 Sat by Pulse Oximetry 99 06/06/18 17:39 Temperature 98.0 F 06/06/18 17:39 Pulse Rate 41 06/06/18 17:39 Respiratory Rate 16 06/06/18 17:39 Blood Pressure 112/69 06/06/18 17:39 O2 Sat by Pulse Oximetry 99 06/06/18 17:39 Oxygen Delivery Oxygen Delivery Nasal Cannula Attestation Statement - Attestation Attestation: I examined this patient and my medical decision-making was reviewed with the Resident Physician. I agree with the documented findings, disposition and treatment plan as described except to the extent set forth below. 72 year old male prsents from home with complaints of WESLEY and appears juandice at bedside in addition to an initial vital sign of 40s and ia ventricularly paced and hypotensive for the squad to 90/60s upon arrival here is normotensive at 112/60 and bradycardiac at 41, patient does appear to be fluid overloaded on exam. WE will continue with workup with cardiopulmoary workup and hepatic/ lipase and DKA workup due to hsitory of diabetes. His ekg does seem to have peaked T waves and widening QRS although it is paced in comparsion to last EKG he appears to be in afiv with rvr and appears to haved had a pacemaker place since then. We will obtain a stat glucose level and potassium, but marlo treat him with calcium gluconate now as a preventive measure. Natalia will be admitted to medicine after workup
[2018-06-06 18:57] LABS: Basophils # 0.1 K/mcL (0.0-0.2); Basophils % 0.8 %; Eosinophils # 0.2 K/mcL (0.0-0.6); Eosinophils % 2.7 %; Hematocrit 32.6 % (37.5-50.1); Immature Granulocytes % 0.4 % (0-4); Lymphocytes # 0.5 K/mcL (0.6-4.6); Lymphocytes % 6.8 %; Mean Corpuscular HGB Conc 30.7 g/dL (31.6-35.5); Mean Corpuscular Hemoglobin 24.3 pg (28.0-33.3); Mean Corpuscular Volume 79.3 fL (83.0-100.0); Mean Platelet Volume 8.5 fL (9.4-12.4); Monocytes # 1.2 K/mcL (0.0-1.3); Monocytes % 14.8 %; Neutrophils # 5.9 K/mcL (1.6-8.9); Platelet Count 308 K/mcL (140-400); Red Blood Count 4.11 M/mcL (4.19-5.50); Red Cell Distribution Width 19.1 % (11.5-14.5); Segmented Neutrophils % 74.5 %
[2018-06-06 19:01] LABS: VBG HCO3 31 mEq/L (21-27); VBG PCO2 49 mmHg (41-51); VBG PO2 43 mmHg (25-50)
[2018-06-06] MEDS ORDERED: Aspirin 325 MG TABLET PO ONE (19:05)
[2018-06-06] MEDS ORDERED: Aspirin 81 MG TAB.CHEW ONE (19:06)
[2018-06-06] MEDS ORDERED: *HR* Ticagrelor 90 MG TABLET ONE (19:07)
[2018-06-06] MEDS ORDERED: *HR* Heparin 5,000 UNIT/ML VIAL ONE (19:07)
[2018-06-06] MEDS ORDERED: 0.9 % Sodium Chloride 1,000 ML ONE (19:07)
[2018-06-06 19:18] LABS: Troponin I 0.03 ng/mL (< 0.04)
[2018-06-06 19:30] LABS: Calcium 9.4 mg/dL (8.6-10.3); Potassium 4.1 mEq/L (3.5-5.1)
[2018-06-06 19:40] LABS: INR 1.3; Prothrombin Time 14.5 Seconds (9.4-12.1)
[2018-06-06 19:43] LABS: Activated Partial Thrombo Time 30.7 Seconds (26.0-36.0)
[2018-06-06] MEDS ORDERED: Ipratropium/Albuterol Neb 3 ML IH ONE (20:35)
[2018-06-06] MEDS ORDERED: Ipratropium/Albuterol Neb 3 ML ONE (20:36)
[2018-06-06] MEDS ORDERED: OXYCODONE Oral CONC 10 MG/0.5 ML ORAL.SYG SL PRN ×2 (21:12)
[2018-06-06] MEDS ORDERED: Naloxone 0.4 MG/ML INJ IVP PRN (21:12)
[2018-06-06] MEDS ORDERED: *HR* LORazepam 0.5 MG TABLET PO PRN (21:15)
[2018-06-06] MEDS ORDERED: Dextrose Gel 15 GM/37.5 ML TUBE PO PRN ×2 (21:19)
[2018-06-06] MEDS ORDERED: *HR* Dextrose 50 % in Water (Syg) 50 ML SYRINGE IVP PRN (21:19)
[2018-06-06] MEDS ORDERED: D5% in Water 1,000 ML IVC PRN (21:19)
--- NOTE | 2018-06-06 21:54 | Internal Med History&Physical ---
<Jarad Correa - Last Filed: 06/06/18 22:24> Date of Encounter: 06/06/18 Time of Encounter: 21:54 Internal Medicine - H&P: HPI Chief complaint: Dyspnea Admitted From: Long-term Nursing Facility Plans for Post Hospital Care: [facility] History of present illness: Mr. Diaz is a 72 year old male with history of cirrhosis, CKD stage III, cardiomyopathy presents from [facility] with dyspnea. Patient is somewhat of a poor historian and is unable to give a complete history. He does report that he felt short of breath prior to transfer to the intensive care unit. At this time he states he feels pretty good, he denies chest pain, abdominal pain, shortness of breath, diaphoresis. Per the ER records patient was brought to the emergency department due to shortness of breath. Upon arrival he was found to have a paced rhythm with bradycardia in the 40s and upon arrival he was normotensive with blood pressure 112/60. During his evaluation emergency department patient became acutely diaphoretic and short of breath, EKG at that time revealed bradycardia with left bundle branch and possible Sgarbossa criteria indicating possible STEMI. Interventional cardiology was consulted and evaluated patient who felt that he needed urgent cardiac catheterization however there was concern whether this would be a safe procedure given the patient's comorbidities with renal failure and liver failure, treated by ascites. Therefore is recommended that the patient be admitted to the ICU where troponins could be followed and patient could be closely monitored. Past Med Surg Social Fam HX - Past Medical History Medical history: arthritis, atrial fibrillation, CHF, COPD, diabetes, hyperlipidemia, hypertension, liver disease, renal disease Additional medical history: ACSITES Psychiatric history: anxiety, depression - Past Surgical History Surgical History: orthopedic, other, pacemaker/AICD Additional surgical history: LEFT BROKEN FEMUR REPAIR. - Social History Smoking Status: Former smoker Smokeless Tobacco Status: No Alcohol use: none Drug use: none - Family History Father History Unknown: Yes Living Status: Hx Family Cardiac Disorders: Yes (Triple Bypass) Hx Family Endocrine Disorder: Yes (DM) Mother History Unknown: Yes Family Member Ethnicity: Non- Living Status: Internal Medicine - H&P: Meds Aspirin 81 mg PO DAILY 04/28/15 [History] Albuterol Sulfate [Proair Hfa] 2 puff IH Q4H PRN 01/25/17 [History] Spironolactone [Aldactone] 25 mg PO TID 06/17/17 [History] Lactulose 15 ml PO BID 08/30/17 [History] Sennosides [Senokot] 8.6 mg PO DAILY 08/30/17 [History] SitaGLIPtin [Januvia] 100 mg PO DAILY 08/30/17 [History] Acetaminophen [Tylenol 650mg SUPP] 650 mg RC Q4HR PRN 10/04/17 [History] traZODone [TraZODone] 300 mg PO HS 11/15/17 [History] Potassium Chloride 20 meq PO DAILY tab.er.prt 12/07/17 [Rx] Furosemide [Lasix] 80 mg PO TID 03/30/18 [History] Insulin LISPRO [HumaLOG] 2 - 14 units SQ TIDWM PRN 03/30/18 [History] Melatonin [Melatin] 6 mg PO HS 03/30/18 [History] OXcarbazepine [Trileptal] 150 mg PO BID 03/30/18 [History] Omeprazole [PriLOSEC] 20 mg PO DAILY 03/30/18 [History] Sertraline [Zoloft] 200 mg PO DAILY 03/30/18 [History] risperiDONE [RisperDAL] 0.25 mg PO TID 03/30/18 [History] LORazepam [Ativan] 0.5 mg PO TID 5 Days #15 tablet 04/05/18 [Rx] Ferrous Sulfate [Iron] 325 mg PO BID 06/06/18 [History] Insulin DETEMIR [Levemir] 35 units SQ BID 06/06/18 [History] 3 Allergy/AdvReac Type Severity Reaction Status Date / Time bupropion [From Wellbutrin] Allergy Difficulty Verified 03/30/18 12:42 Breathing codeine Allergy Difficulty Verified 03/30/18 12:42 Breathing Opioids-Meperidine and Allergy Difficulty Verified 03/30/18 12:42 Related Breathing [Opioids-Meperidine & Related] All Systems PM: A 10-system review of systems was performed and is negative for pertinent findings except as documented above in the HPI. Review of systems: Limited due to patient mental status - Constitutional Constitutional: chills, weight gain, no fever(s) - Cardiovascular Cardiovascular ROS IM: diaphoresis, dyspnea, edema, no chest pain, no lightheadedness - Respiratory Respiratory: dyspnea, no cough, no chest congestion - Gastrointestinal Gastrointestinal: no abdominal pain, no diarrhea, no nausea, no vomiting - Neurological Neurological ROS: confusion, no dizziness - Constitutional Vitals: Temp Pulse Resp BP Pulse Ox 98.0 F 40 18 113/61 99 06/06/18 17:39 06/06/18 20:30 06/06/18 20:38 06/06/18 20:30 06/06/18 20:38 General appearance: Present: A&O X 3 (but poor historian), no acute distress, underweight Exam: . - Head Head exam: Present: atraumatic, normal inspection, normocephalic - Eye Eye exam: Present: EOMI, periorbital swelling (mild) - ENT ENT exam: Present: mucous membranes moist - Neck Neck exam general surgery: Present: full ROM - Respiratory Respiratory exam: Present: decreased breath sounds (bibasilar). Absent: rales, rhonchi, wheezes - Cardiovascular Cardiovascular exam: Present: bradycardia (regular). Absent: diastolic murmur, irregular rhythm, systolic murmur - GI/Abdominal GI/Abdominal exam: Present: diminished bowel sounds, distended (+ fluid wave), soft. Absent: tenderness - Extremities Exam Extremities exam: Present: pedal edema (1+), radial pulses palpable and symmetrical. Absent: tenderness, warm - Neurological Exam Neurological exam: Present: alert, altered, no focal deficits. Absent: facial droop, speech deficit - Psychiatric Psychiatric exam: Present: normal affect, normal mood - Skin Skin exam: Present: dry, intact, warm Internal Med - H&P Results - Labs CBC & Chem 7: 06/06/18 18:40 06/06/18 18:40 Labs: Cardiac Enzymes 06/06/18 Range/Units 20:08 Troponin I < 0.03 (< 0.04) ng/mL - Assessment and plan (1) Acute electrocardiography changes Current Visit: Yes Status: Acute Assessment and plan: Patient became acutely diaphoretic and short of breath in the emergency department with repeat EKG indicative of Sgarbossa Criteria, concerning for STEMI in the setting of left bundle branch. Patient was evaluated by interventional cardiology who was concerned for an acute coronary event however given the patient's comorbidities and current clinical status deferred urgent cardiac catheterization at this time. We will closely monitor the patient in the ICU and trend troponins, initial troponins were negative. If the patient has an elevation in his troponins will discuss with interventional cardiology and likely patient will go for urgent cardiac catheterization. (2) Bradycardia Current Visit: Yes Status: Acute Assessment and plan: Asymptomatic at this time. Heart rate in the 40s. Has a pacer in place however does not appear to be capturing. No indication for treatment at this time as the patient is normotensive and asymptomatic. Cardiology is following, consider pacer interrogation in the morning. (3) Acute kidney injury Current Visit: Yes Status: Acute Assessment and plan: Mild CHERRIE on CKD stage III. Creatinine 1.68, baseline appears to be around 1.4 - 1.5. Possibly related to fluid overload and cardiorenal syndrome versus dehydration. Patient received 1 L of fluid in the emergency department. Patient has mild evidence of fluid overload. We will check BMP in the morning and we will determine at that time whether we will restart his home Lasix. If the patient has evidence of clinical deterioration and respiratory status will give IV Lasix. Closely monitor urine output. (4) Cirrhosis Current Visit: No Status: Chronic Assessment and plan: Meld unable to be calculated this time due to no total bili, we will check LFTs in the morning. Unclear etiology, possibly nonalcoholic fatty liver disease. Patient has evidence of ascites which may be causing the patient's shortness of breath. No indication for acute paracentesis at this time however could be considered during this admission. No belly pain or fever indicative of spontaneous bacterial peritonitis. Continue spironolactone and will plan Lasix regimen based on morning labs as discussed above. Qualifiers: Hepatic cirrhosis type: unspecified hepatic cirrhosis Ascites presence: with ascites Qualified Code(s): K74.60 - Unspecified cirrhosis of liver; R18.8 - Other ascites (5) Diabetes mellitus with neuropathy Current Visit: No Status: Chronic Assessment and plan: Blood sugar at goal for hospitalization as it is 160. Patient is currently nothing by mouth so we will institute sliding scale insulin every 6 hours. Plan to restart patient's home insulin regimen once he is eating. Qualifiers: Diabetes mellitus type: type 2 Diabetes mellitus [facility] insulin use: with superintendent container terminal use Qualified Code(s): E11.40 - Type 2 diabetes mellitus with diabetic neuropathy, unspecified; Z79.4 - buttermaker (current) use of insulin; Z79.4 - buttermaker (current) use of insulin; Z79.4 - [facility] (current) use of insulin; Z79.4 - buttermaker (current) use of insulin (6) Iron deficiency anemia Current Visit: No Status: Chronic Assessment and plan: Chronic for patient. Hemoglobin 10.0 which is actually as high as is been, may be an element of hemoconcentration. No evidence of active bleeding. Continue iron supplementation. Qualifiers: Iron deficiency anemia type: unspecified iron deficiency Qualified Code(s) : D50.9 - Iron deficiency anemia, unspecified (7) COPD (chronic obstructive pulmonary disease) Current Visit: No Status: Acute Assessment and plan: No evidence of acute exacerbation, no wheezing or sputum production on exam. Scheduled DuoNeb's for shortness of breath. Qualifiers: COPD type: emphysema Emphysema type: unspecified Qualified Code(s): J43.9 - Emphysema, unspecified (8) DVT prophylaxis Current Visit: No Status: Acute Assessment and plan: Heparin 5000 units subcutaneous twice a day (9) Acute respiratory failure Current Visit: Yes Status: Acute Assessment and plan: Unclear etiology. Per patient he does not use oxygen normally and is currently on 3 L. Likely related to pleural effusions and pulmonary edema as well is ascites restricting pulmonary function. Cardiac ischemia is also concern. At this time patient appears stable and is 99% on 3 L, we will wean oxygen as tolerated. Will closely monitor the patient's respiratory function, if he becomes more short of breath or hypoxic we will use Lasix for diuresis. We will hold off on the patient's scheduled Lasix until a.m. labs can be evaluated to review creatinine and electrolytes, unless patient clinically deteriorates. Qualifiers: Respiratory failure complication: hypoxia Qualified Code(s): J96.01 - Acute respiratory failure with hypoxia - Time Spent With Patient Total time spent is greater than 50% in coordination of care (as documented) at patient's floor/unit and/or counseling patient: <Luis Alfredo Dai - Last Filed: 06/06/18 22:40> Date of Encounter: 06/06/18 Internal Medicine - H&P: HPI History of present illness: Mr. Diaz is a 72 year old male All Systems PM: A 10-system review of systems was performed and is negative for pertinent findings except as documented above in the HPI. - Constitutional Vitals: Temp Pulse Resp BP Pulse Ox 98.0 F 41 18 111/62 96 06/06/18 17:39 06/06/18 22:00 06/06/18 22:00 06/06/18 22:00 06/06/18 22:00 Internal Med - H&P Results - Labs CBC & Chem 7: 06/06/18 18:40 06/06/18 18:40 Labs: Cardiac Enzymes 06/06/18 Range/Units 20:08 Troponin I < 0.03 (< 0.04) ng/mL - Assessment and plan (1) DVT prophylaxis Current Visit: No Status: Acute (2) Diabetes mellitus with neuropathy Current Visit: No Status: Chronic Qualifiers: Diabetes mellitus type: type 2 Diabetes mellitus superintendent container terminal insulin use: with superintendent container terminal use Qualified Code(s): E11.40 - Type 2 diabetes mellitus with diabetic neuropathy, unspecified; Z79.4 - buttermaker (current) use of insulin; Z79.4 - buttermaker (current) use of insulin; Z79.4 - [facility] (current) use of insulin; Z79.4 - [facility] (current) use of insulin (3) Iron deficiency anemia Current Visit: No Status: Chronic Qualifiers: Iron deficiency anemia type: unspecified iron deficiency Qualified Code(s) : D50.9 - Iron deficiency anemia, unspecified (4) Cirrhosis Current Visit: No Status: Chronic Qualifiers: Hepatic cirrhosis type: unspecified hepatic cirrhosis Ascites presence: with ascites Qualified Code(s): K74.60 - Unspecified cirrhosis of liver; R18.8 - Other ascites (5) COPD (chronic obstructive pulmonary disease) Current Visit: No Status: Acute Qualifiers: COPD type: emphysema Emphysema type: unspecified Qualified Code(s): J43.9 - Emphysema, unspecified (6) Bradycardia Current Visit: Yes Status: Acute (7) Acute electrocardiography changes Current Visit: Yes Status: Acute (8) Acute kidney injury Current Visit: Yes Status: Acute (9) Acute respiratory failure Current Visit: Yes Status: Acute Qualifiers: Respiratory failure complication: hypoxia Qualified Code(s): J96.01 - Acute respiratory failure with hypoxia - Time Spent With Patient Total time spent is greater than 50% in coordination of care (as documented) at patient's floor/unit and/or counseling patient: - Attending Attestation Jaime Lucina Diaz is a 72 year old man with a history of atrial fibrillation, CHF, COPD, hypertension, hyperlipidemia and cirrhosis who resides [facility]. On review of old records he was previously hospitalized as hospitalized here in March 2018 with shortness of breath, diagnosed with acute on chronic congestive heart failure and health care associated pneumonia. He was treated with IV antibiotics and furosemide with slow improvement in his symptoms. He also underwent paracentesis for ascites with findings concerning for peritonitis and also underwent thoracentesis for loculated pleural effusion on the right side. He presents now with the complaint of shortness of breath. Bulk of information obtained from chart review as the patient is a poor historian. He states that his dyspnea commenced today and progressively worsened prompting him to come to the ER via EMS. Here he was noted bradycardic at 41 but normal BP. He then had an acute episode of dyspnea and diaphoresis with ST segment elevation noted on telemetry which prompted concern for ACS and consulting interventional cardiology. His EKG however was not consistent and may represent a confounding LBBB with ongoing ventricular pacing activity. He received loading dose of heparin however. On recommendation of the airline attendant he is admitted to the ICU for observation for stabilization and monitoring with consideration to be given for cardiac cath if needed. On my assessment he was sitting up in bed in [facility]. He says his shortness of breath has improved since arrival. Interestingly he denies a history of any comorbidities and does not know if he has a pacemaker even though he does. No further information could be obtained from him. Physical exam remarkable for obese man, diminished breath sounds in the right base with no wheezing, crackles or rales and either lung yanez. Mildly distended abdomen that is not tender on palpation. 2+ peripheral edema that is firm but without inflammatory signs. Labs reviewed remarkable for sodium of 133 and chloride of 92 with a slight elevation in creatinine to 1.68 from a lower baseline. Troponin negative 2. We will observe in the ICU for shortness of breath which is likely related to fluid overload state from liver disease and also heart failure, grade 1 acute kidney injury and electrolyte abnormalities. He has received 1 L of normal saline and shower recheck BMP in the morning to assess lytes and creatinine. We will continue to trend troponins to ensure this is not an ACS picture given his acute presentation and electrocardiographic changes. Full cardiology consultation to follow. If he becomes dyspneic again in addition to breathing treatments he may benefit from IV diuretics. Chest x-ray reviewed independently by me is not depicted of of worsening right-sided pleural effusion and appears to be unchanged from last March. Anemia appears to be at baseline and she will continue iron supplementation. Need to recheck A1c and TSH.
[2018-06-06 23:20] LABS: Thyroid Stimulating Hormone 1.804 mcIU/mL (0.340-5.600)
[2018-06-07] MEDS: Ipratropium/Albuterol Neb 3 ML IH SCH ×7 (00:08→23:42)
[2018-06-07] MEDS: Insulin LISPRO 300 UNITS/3 ML VIAL SQ SCH ×3 (00:15→13:06)
[2018-06-07 02:14] LABS: Basophils # 0.1 K/mcL (0.0-0.2); Basophils % 0.7 %; Eosinophils # 0.1 K/mcL (0.0-0.6); Eosinophils % 1.7 %; Hematocrit 30.9 % (37.5-50.1); Hemoglobin 9.7 g/dL (12.9-16.9); Immature Granulocytes % 0.3 % (0-4); Lymphocytes # 0.6 K/mcL (0.6-4.6); Lymphocytes % 7.9 %; Mean Corpuscular HGB Conc 31.4 g/dL (31.6-35.5); Mean Corpuscular Hemoglobin 24.8 pg (28.0-33.3); Mean Platelet Volume 8.9 fL (9.4-12.4); Monocytes # 1.1 K/mcL (0.0-1.3); Monocytes % 13.8 %; Neutrophils # 5.8 K/mcL (1.6-8.9); Platelet Count 311 K/mcL (140-400); Red Blood Count 3.91 M/mcL (4.19-5.50); Red Cell Distribution Width 19.1 % (11.5-14.5); Segmented Neutrophils % 75.6 %
[2018-06-07 02:30] LABS: INR 1.4; Prothrombin Time 15.3 Seconds (9.4-12.1)
[2018-06-07 02:39] LABS: Calcium 9.1 mg/dL (8.6-10.3); Magnesium 2.4 mg/dL (1.6-2.6); Potassium 3.8 mEq/L (3.5-5.1)
[2018-06-07 02:40] LABS: Albumin 3.5 g/dL (3.5-5.7); Albumin/Globulin Ratio 0.9 (1.1-2.2); Bilirubin,Direct 0.3 mg/dL (0.0-0.2); Bilirubin,Indirect 0.2 mg/dL (0.0-1.2); Bilirubin,Total 0.5 mg/dL (0.3-1.0); Globulin 4.1 g/dL (2.4-3.5); Total Protein 7.6 g/dL (6.4-8.9)
[2018-06-07] MEDS: *HR* Heparin 5,000 UNIT/ML VIAL SQ SCH ×2 (06:10→17:56)
[2018-06-07 08:10] LABS: Estimated Average Glucose 134 mg/dl; Hemoglobin A1C 6.3 %
[2018-06-07] MEDS: OXcarbazepine 150 MG TABLET PO SCH ×2 (08:24→20:18)
[2018-06-07] MEDS: risperiDONE 0.25 MG TABLET PO SCH ×3 (08:24→20:17)
[2018-06-07] MEDS: Aspirin 81 MG TAB.CHEW PO SCH (08:24)
[2018-06-07] MEDS: Sennosides 8.6 MG TABLET PO SCH (08:24)
[2018-06-07] MEDS: Spironolactone 25 MG TABLET PO SCH ×2 (08:24→15:54)
[2018-06-07] MEDS ORDERED: Albumin 25% 25gram/100mL 25 GM/100 ML IV.SOLN IVPB ONE (10:24)
--- NOTE | 2018-06-07 11:33 | IR Procedure Note ---
Date of procedure: 06/07/18 Consent Obtained: Written consent Timeout: Correct patient and procedure verified, Time out performed, Skin prep completed Local anesthetic: Lidocaine 1% Indications: Ascites Procedure Performed: Paracentesis Was there an marketing operations assistant present: No Estimated blood loss (cc): 0 Complications: None; Tolerated procedure well Post Procedure Treatment Plan: Monitor on floor Specimen: Collected. To check with primary service whether to send for studies.
[2018-06-07 12:20] LABS: Appearance of Peritoneal Fl CLOUDY (Clear)
--- NOTE | 2018-06-07 13:29 | Cardiology Consult Note ---
Date of Encounter: 06/07/18 Time of Encounter: 13:26 Assessment and Plan (1) Dyspnea Current Visit: Yes Status: Acute Presented with chief complaint of dyspnea--currently denies. ECG bradycardic, HR 40, paced complexes. Troponins negative x 3. Successful ultrasound guided paracentesis this AM with 4L removed. Suspect ascites was primary cause of his dyspnea given amount of fluid removed. TTE 04/23/17 EF preserved. Pt is bradycardic with HR 40s. PPM in place, not interrogated since implanted in 2014. Will interrogate. Not on AV sahara blockers. Recheck TTE. Qualifiers: Dyspnea type: unspecified Qualified Code(s): R06.00 - Dyspnea, unspecified (2) Acute electrocardiography changes Current Visit: Yes Status: Acute EKG in ED revealed bradycardia with left bundle branch and possible Sgarbossa criteria, concerning for STEMI. However, troponins have been negative x 3 and pt denies chest pain. TTE to evaluate structure and function. (3) Bradycardia Current Visit: Yes Status: Acute Pt is bradycardic with HR 40s. PPM in place, not interrogated since implanted in 2014. Will interrogate. Not on AV sahara blockers. K, Mag and TSH WNL. Check TTE. (4) A-fib Current Visit: Yes Status: Chronic Known hx of A-Fib. Not on AV sahara blockers. Currently bradycardic. Previously anticoagulated on Xarelto, stopped after GI bleed 04/2017 and due to needing frequent paracenteses. Recommend continuing home 81mg ASA. Qualifiers: Atrial fibrillation type: unspecified Qualified Code(s): I48.91 - Unspecified atrial fibrillation Discussion w patient/family: The assessment and plan as outlined above was discussed with the patient and/or family members who expressed understanding and agreement. All questions were answered. Thank you for involving us in the care of your patient. Please call with any questions. I will discuss all the above with Dr. Rubi and make changes as necessary. History of Present Illness Consult date: 06/07/18 Consult reason: ECG changes Chief complaint: dyspnea History of present illness: Mr. Diaz is a 72 year old male with history PMH of cirrhosis, CKD stage III, hx of mild cardiomyopathy since normalized, A-Fib, SSS s/p PPM, presents from [facility] with dyspnea. Patient is a poor historian, only shakes his head in response to questions. Per hospitalist H&P, reported that he felt short of breath prior to transfer to the intensive care unit. He shakes his head "no" when asked if he is currently having dyspnea or chest pain. Upon arrival he was found to have a paced rhythm with bradycardia in the 40s and upon arrival he was normotensive with blood pressure 112/60. During his evaluation emergency department patient became acutely diaphoretic and short of breath, EKG at that time revealed bradycardia with left bundle branch and possible Sgarbossa criteria, concerning for STEMI. Cardiology consulted for further recs. Pt denies chest pain and troponins have been negative x 3. Prior CV testing: TTE 04/23/17: LVEF 50-55%. Indeterminate left ventricular diastolic function. Atypical septal motion. Mild concentric hypertrophy of the left ventricle. RV is dilated with mild reduction in function. Suboptimal aortic valve Doppler signal. Suboptimal TR signal to estimate RVSP. IVC is dilated lacking respiratory collapse suggesting elevated RA pressures. Past Med Surg Social Fam HX - Past Medical History Medical history: arthritis, atrial fibrillation, CHF, COPD, diabetes, hyperlipidemia, hypertension, liver disease, renal disease Additional medical history: ACSITES Psychiatric history: anxiety, depression - Past Surgical History Surgical History: orthopedic, other, pacemaker/AICD Additional surgical history: LEFT BROKEN FEMUR REPAIR. - Social History Smoking Status: Former smoker Smokeless Tobacco Status: No Alcohol use: none Drug use: none - Family History Father History Unknown: Yes Living Status: Hx Family Cardiac Disorders: Yes (Triple Bypass) Hx Family Endocrine Disorder: Yes (DM) Mother History Unknown: Yes Family Member Ethnicity: Non- Living Status: Medications and Allergies Aspirin 81 mg PO DAILY 04/28/15 [History] Albuterol Sulfate [Proair Hfa] 2 puff IH Q4H PRN 01/25/17 [History] Spironolactone [Aldactone] 25 mg PO TID 06/17/17 [History] Lactulose 15 ml PO BID 08/30/17 [History] Sennosides [Senokot] 8.6 mg PO DAILY 08/30/17 [History] SitaGLIPtin [Januvia] 100 mg PO DAILY 08/30/17 [History] Acetaminophen [Tylenol 650mg SUPP] 650 mg RC Q4HR PRN 10/04/17 [History] traZODone [TraZODone] 300 mg PO HS 11/15/17 [History] Potassium Chloride 20 meq PO DAILY tab.er.prt 12/07/17 [Rx] Furosemide [Lasix] 80 mg PO TID 03/30/18 [History] Insulin LISPRO [HumaLOG] 2 - 14 units SQ TIDWM PRN 03/30/18 [History] Melatonin [Melatin] 6 mg PO HS 03/30/18 [History] OXcarbazepine [Trileptal] 150 mg PO BID 03/30/18 [History] Omeprazole [PriLOSEC] 20 mg PO DAILY 03/30/18 [History] Sertraline [Zoloft] 200 mg PO DAILY 03/30/18 [History] risperiDONE [RisperDAL] 0.25 mg PO TID 03/30/18 [History] LORazepam [Ativan] 0.5 mg PO TID 5 Days #15 tablet 04/05/18 [Rx] Ferrous Sulfate [Iron] 325 mg PO BID 06/06/18 [History] Insulin DETEMIR [Levemir] 35 units SQ BID 06/06/18 [History] 3 Allergy/AdvReac Type Severity Reaction Status Date / Time bupropion [From Wellbutrin] Allergy Difficulty Verified 03/30/18 12:42 Breathing codeine Allergy Difficulty Verified 03/30/18 12:42 Breathing Opioids-Meperidine and Allergy Difficulty Verified 03/30/18 12:42 Related Breathing [Opioids-Meperidine & Related] All Systems Review: The remainder of the systems were reviewed and are negative - Cardiovascular Cardiovascular: as per HPI, dyspnea at rest, dyspnea on exertion Physical Examination Vital Signs, Last 4 Hours Pulse Resp BP Pulse Ox 06/07/18 10:57 16 98 06/07/18 10:00 42 16 130/53 99 Vital Signs Temp Pulse Resp BP Pulse Ox 06/07/18 13:26 97.6 F 06/07/18 10:57 16 98 06/07/18 10:00 42 16 130/53 99 06/07/18 09:00 45 16 113/64 98 06/07/18 08:00 46 16 101/52 97 06/07/18 07:25 16 97 06/07/18 07:00 97.5 F L 45 14 141/127 97 06/07/18 06:00 43 20 126/78 95 06/07/18 05:00 43 18 106/61 97 06/07/18 04:00 98.6 F 45 18 122/72 98 06/07/18 03:55 16 101/70 98 06/07/18 03:00 42 16 101/70 97 06/07/18 02:00 42 16 105/52 96 06/07/18 01:00 44 18 131/111 98 06/07/18 00:08 18 96/65 96 06/07/18 00:00 98.3 F 41 18 96/65 98 06/06/18 23:00 79 20 102/83 93 06/06/18 22:00 41 18 111/62 96 06/06/18 20:38 18 99 06/06/18 20:30 40 15 113/61 100 06/06/18 20:00 40 16 120/68 2 06/06/18 19:30 40 15 119/67 99 06/06/18 19:15 47 12 125/56 99 06/06/18 17:39 98.0 F 41 16 112/69 99 Intake and Output 06/06/18 06/07/18 06/07/18 23:59 07:59 15:59 Intake Total 1110 / 1110 Balance 1110 / 1110 Intake: IV Fluids 1110 / 1110 0.9 % Sodium Chloride 1,000 ML 1000 / 1000 @ 0 mls/hr .ROUTE .STK-MED ONE Rx#:[id number] Calcium Gluconate 1,000 MG In 0 110 / 110 .9 % Sodium Chloride 100 ML @ 220 mls/hr IVPB ONCE ONE Rx#: [id number] Other: # Voids 1 2 # Urine Diapers 2 Weight 114.05 kg 114.05 kg Blood Glucose* 146 161 Patient Weight 06/07/18 23:59 Weight 114.05 kg General: Conversant, No Apparent Distress HEENT: Atraumatic, Normocephaly, Mucus Membranes Moist Neck: No JVD, Normal carotid pulses Cardiac: Other (irregular ) Lungs: Other (diminished) Neuro: Alert and responsive, No focal deficits noted Abdomen: Soft, Non-Tender Skin: No rashes noted on visualized skin Musculoskeletal: No Chest Wall Tenderness Extremities: No Clubbing, No Cyanosis, Other (1+ BLE edema) Results 06/07/18 02:04 06/07/18 02:04 Lab Results 06/06/18 06/07/18 06/07/18 20:08 02:04 02:04 WBC 7.6 Hgb 9.7 L Hct 30.9 L Plt Count 311 INR Sodium Potassium Chloride Carbon Dioxide BUN Creatinine Glucose Calcium Magnesium Total Bilirubin AST ALT Alkaline Phosphatase Troponin I < 0.03 < 0.03 06/07/18 06/07/18 06/07/18 02:04 02:04 02:04 WBC Hgb Hct Plt Count INR 1.4 Sodium 133 L Potassium 3.8 Chloride 95 L Carbon Dioxide 29 BUN 53 H Creatinine 1.63 H Glucose 135 H Calcium 9.1 Magnesium 2.4 Total Bilirubin 0.5 AST 12 L ALT 10 Alkaline Phosphatase 107 H Troponin I 06/07/18 09:28 WBC Hgb Hct Plt Count INR Sodium Potassium Chloride Carbon Dioxide BUN Creatinine Glucose Calcium Magnesium Total Bilirubin AST ALT Alkaline Phosphatase Troponin I < 0.03 Impressions Chest X-Ray 06/06/18 17:41 IMPRESSION: Persistent mild size right pleural effusion with right basilar atelectasis or infiltrate. D/ / 06/06/2018 18:00:49 Paul Cherry MD / [email or web address] Interpreting Provider: Paul Cherry MD Paracentesis Ultrasound 06/07/18 10:17 IMPRESSION: 1. Successful ultrasound guided paracentesis. D/ / José Miguel Cartagena MD / José Miguel Cartagena MD Interpreting Provider: José Miguel Cartagena MD Active Medications Albuterol/Ipratropium (Duoneb) 3 ml IH [id number] VERONIQUE Stop: 12/07/18 00:01 Last Admin: 06/07/18 10:57 Dose: 3 ml Aspirin (Aspirin) 81 mg PO DAILY VERONIQUE Stop: 12/07/18 09:01 Last Admin: 06/07/18 08:24 Dose: 81 mg Dextrose/Water (Dextrose 50% (Syg)) 25 ml IVP AD PRN PRN Reason: Hypoglycemia Stop: 12/06/18 21:20 Ferrous Sulfate (Ferrous Sulfate) 325 mg PO BIDWM [facility] Stop: 12/07/18 08:01 Last Admin: 06/07/18 08:24 Dose: 325 mg Glucagon (Glucagen) 1 mg IM ONCE PRN PRN Reason: Hypoglycemia Stop: 12/06/18 21:20 Glucose (Gluctose) 15 gm PO ONCE PRN PRN Reason: Hypoglycemia Stop: 12/06/18 21:20 Glucose (Gluctose) 30 gm PO ONCE PRN PRN Reason: Hypoglycemia Stop: 12/06/18 21:20 Heparin Sodium (Porcine) (Heparin) 5,000 unit SQ Q12HCO [facility] Stop: 12/07/18 06:01 Last Admin: 06/07/18 06:10 Dose: 5,000 unit Dextrose (Dextrose 5%) 1,000 mls @ 100 mls/hr IVC .Q10H PRN PRN Reason: HYPOGLYCEMIA Stop: 12/06/18 21:20 Cefotaxime Sodium 2,000 mg/ (Dextrose) 100 mls @ 200 mls/hr IVPB Q12H [facility] Stop: 12/07/18 13:01 Insulin Human Lispro (Humalog) 0 units SQ Q6HR VERONIQUE PRN Reason: Protocol Stop: 12/07/18 00:01 Last Admin: 06/07/18 13:06 Dose: Not Given Lorazepam (Ativan) 0.5 mg PO TID PRN PRN Reason: Anxiety Stop: 12/06/18 21:16 Naloxone HCl (Narcan) 0.4 mg IVP Q2MIN PRN PRN Reason: SEE COMMENTS Stop: 12/06/18 21:13 Oxcarbazepine (Trileptal) 150 mg PO BID [facility] Stop: 12/07/18 09:01 Last Admin: 06/07/18 08:24 Dose: 150 mg Risperidone (Risperdal) 0.25 mg PO TID [facility] Stop: 12/07/18 09:01 Last Admin: 06/07/18 08:24 Dose: 0.25 mg Senna (Senna) 8.6 mg PO DAILY [facility] Stop: 12/07/18 09:01 Last Admin: 06/07/18 08:24 Dose: 8.6 mg Sertraline HCl (Zoloft) 200 mg PO DAILY [facility] Stop: 12/07/18 09:01 Last Admin: 06/07/18 08:24 Dose: 200 mg Spironolactone (Aldactone) 25 mg PO TID VERONIQUE Stop: 12/07/18 09:01 Last Admin: 06/07/18 08:24 Dose: 25 mg - Imaging and Cardiology Echo: report reviewed - EKG Interpretation EKG results cardiology: personally reviewed (HR 40), other (12 hr tele AVG HR 44 ) Consult Discharge Plan - Plan Referrals: Damian Seymour MD [Primary Care Provider] -
--- NOTE | 2018-06-07 15:13 | Event Note ---
Date of Encounter: 06/07/18 Time of Encounter: 15:10 Consultation performed earlier today. [employer] will not allow me to provide attestation. Please consider this might attestation to that consultation. Patient and apparently seen and examined. Agree with findings, impressions, and plan as outlined in the consultation. We will discuss settings of device with EP. Currently set at VVI with a heart rate of 40. Given general fatigue/weakness, we will consider increasing racing rate. Repeat TTE pending. Abnormal ECG noted, findings discussed with interventional cardiology yesterday. Symptoms are negative. Patient does not describe any chest discomfort. Continue medical therapy. Of note, history of atrial fibrillation. Patient previously deemed a poor candidate for anticoagulation. Further recommendations to follow.
--- NOTE | 2018-06-07 17:16 | Internal Med Progress Note ---
Hospitalist Progress Note - Encounter Date of Encounter: 06/07/18 Time of Encounter: 09:00 - Subjective Interval History: Pt is somnolent, in no acute distress. Feels cold. Denies chest pain/SOB/nausea /Abd pain. - Exam Vitals: Temp Pulse Resp BP Pulse Ox 96.8 F L 43 16 115/111 91 06/07/18 15:00 06/07/18 15:00 06/07/18 15:45 06/07/18 15:00 06/07/18 15:45 Exam: In NAD, somnolent HEENT: NC/AT, PERRL Lungs: CTA b/l Heart: S1S2, bradycardia Abd: Distended, NT Ext: Mild pedal edema Neuro: No focal deficit. . - Assessment and Plan (1) DVT prophylaxis Current Visit: No Status: Acute Assessment and Plan: Heparin 5000 units subcutaneous twice a day (2) Diabetes mellitus with neuropathy Current Visit: No Status: Chronic Assessment and Plan: Blood sugar at goal for hospitalization as it is 160. basal insulin plus SSI. (3) Iron deficiency anemia Current Visit: No Status: Chronic Assessment and Plan: Chronic for patient. Hemoglobin 10.0 which is actually as high as is been, may be an element of hemoconcentration. No evidence of active bleeding. Continue iron supplementation. (4) Cirrhosis Current Visit: No Status: Chronic Assessment and Plan: Pt has distended abd, IR paracentesis done, 4L fluid drained. Cell count shows PMN 720, consider SBP, cefotaxime iv started. (5) COPD (chronic obstructive pulmonary disease) Current Visit: No Status: Acute Assessment and Plan: No evidence of acute exacerbation, no wheezing or sputum production on exam. Scheduled DuoNeb's for shortness of breath. (6) Bradycardia Current Visit: Yes Status: Acute Assessment and Plan: Asymptomatic at this time. Heart rate in the 40s. Cardio consult saw pt, will increase his pacing setting. (7) Acute electrocardiography changes Current Visit: Yes Status: Acute Assessment and Plan: Pt denies chest pain. 3 sets of troponin negative. Cardio consult appreciated. No further intervention at this point. Cont home meds (8) Acute kidney injury Current Visit: Yes Status: Acute Assessment and Plan: Cont monitor renal function. Albumin iv once after paracentesis. (9) Acute respiratory failure Current Visit: Yes Status: Acute Assessment and Plan: Unclear etiology. Pt denies SOB now. Possibly due to ascites and SBP. Had paracentesis and on abx now. (10) Spontaneous bacterial peritonitis Current Visit: No Status: Acute Assessment and Plan: Pt is somnolent. Paracentesis has been done, shows SBP. Cefotaxime iv started. Cont closely monitor pt. Ammonia level WNL. DVT Prophylaxis: heparin sc - Time Spent with Patient Total time spent is greater than 50% in coordination of care (as documented) at patient's floor/unit and/or counseling patient: 30 min 25 - 35 minutes Plan of Care Discussed with: patient Internal Medicine: Result - Labs CBC & Chem 7: 06/07/18 02:04 06/07/18 02:04 Labs: Short CBC 06/07/18 Range/Units 02:04 WBC 7.6 (4.3-11.1) K/mcL Hgb 9.7 L (12.9-16.9) g/dL Hct 30.9 L (37.5-50.1) % Plt Count 311 (140-400) K/mcL Neutrophils # 5.8 (1.6-8.9) K/mcL BMP 06/07/18 02:04 Sodium 133 L Potassium 3.8 Chloride 95 L Carbon Dioxide 29 BUN 53 H Creatinine 1.63 H Glucose 135 H Calcium 9.1 Cardiac Enzymes 06/06/18 06/07/18 06/07/18 Range/Units 20:08 02:04 09:28 Troponin I < 0.03 < 0.03 < 0.03 (< 0.04) ng/mL Liver Function 06/07/18 Range/Units 02:04 Total Bilirubin 0.5 (0.3-1.0) mg/dL Direct Bilirubin 0.3 H (0.0-0.2) mg/dL AST 12 L (13-39) Units/L ALT 10 (7-52) Units/L Alkaline Phosphatase 107 H (34-104) Units/L Albumin 3.5 (3.5-5.7) g/dL - ABG Interpretation ABG results: PT/INR, D-dimer PT 15.3 Seconds (9.4-12.1) H 06/07/18 02:04 - Impressions Impressions Paracentesis Ultrasound 06/07/18 10:17 IMPRESSION: 1. Successful ultrasound guided paracentesis. D/ / José Miguel Cartagena MD / José Miguel Cartagena MD Interpreting Provider: José Miguel Cartagena MD Consult Discharge Plan - Plan Referrals: Damian Seymour MD [Primary Care Provider] - (2) Diabetes mellitus with neuropathy Qualifiers: Diabetes mellitus type: type 2 Diabetes mellitus adjunct faculty for medical terminology insulin use: with adjunct faculty for medical terminology use Qualified Code(s): E11.40 - Type 2 diabetes mellitus with diabetic neuropathy, unspecified; Z79.4 - long term care phlebotomist (current) use of insulin; Z79.4 - longterm (current) use of insulin; Z79.4 - long term care phlebotomist (current) use of insulin; Z79.4 - long term care phlebotomist (current) use of insulin (3) Iron deficiency anemia Qualifiers: Iron deficiency anemia type: unspecified iron deficiency Qualified Code(s): D50.9 - Iron deficiency anemia, unspecified (4) Cirrhosis Qualifiers: Hepatic cirrhosis type: unspecified hepatic cirrhosis Ascites presence: with ascites Qualified Code(s): K74.60 - Unspecified cirrhosis of liver; R18.8 - Other ascites (5) COPD (chronic obstructive pulmonary disease) Qualifiers: COPD type: emphysema Emphysema type: unspecified Qualified Code(s): J43.9 - Emphysema, unspecified (9) Acute respiratory failure Qualifiers: Respiratory failure complication: hypoxia Qualified Code(s): J96.01 - Acute respiratory failure with hypoxia
[2018-06-07] MEDS ORDERED: Acetaminophen 650 MG RECTAL SUPP RC PRN (17:24)
[2018-06-07] MEDS ORDERED: Insulin LISPRO 300 UNITS/3 ML VIAL SQ ONE (17:58)
[2018-06-07] MEDS: Lactulose Oral Soln 20 GM/30 ML UDC PO SCH (20:17)
[2018-06-07] MEDS ORDERED: NON-FORMULARY MEDICATION 1 EACH EACH (Furosemide [Lasix] 80 MG) PO SCH (21:00)
[2018-06-07] MEDS ORDERED: Insulin LISPRO 300 UNITS/3 ML VIAL SQ SCH (21:00)
[2018-06-07] MEDS ORDERED: Insulin DETEMIR 100 UNIT/ML X5UNITS SQ SCH (21:00)
[2018-06-07] MEDS ORDERED: Melatonin 3 MG TABLET PO SCH (21:00)
[2018-06-07] MEDS ORDERED: Perflutren Lipid Microsphere 1.3 ML in 0.9 % Sodium Chloride 8.7 ML IVP ONE (21:13)
[2018-06-08 03:32] LABS: Basophils # 0.1 K/mcL (0.0-0.2); Basophils % 0.6 %; Eosinophils # 0.2 K/mcL (0.0-0.6); Eosinophils % 2.1 %; Hemoglobin 9.4 g/dL (12.9-16.9); Immature Granulocytes % 0.3 % (0-4); Lymphocytes # 0.6 K/mcL (0.6-4.6); Lymphocytes % 6.4 %; Mean Corpuscular HGB Conc 30.3 g/dL (31.6-35.5); Mean Corpuscular Hemoglobin 24.1 pg (28.0-33.3); Mean Corpuscular Volume 79.5 fL (83.0-100.0); Mean Platelet Volume 8.8 fL (9.4-12.4); Monocytes # 1.3 K/mcL (0.0-1.3); Neutrophils # 6.5 K/mcL (1.6-8.9); Platelet Count 307 K/mcL (140-400); Red Cell Distribution Width 19.1 % (11.5-14.5); Segmented Neutrophils % 75.6 %
[2018-06-08] MEDS: Ipratropium/Albuterol Neb 3 ML IH SCH ×6 (03:45→23:35)
[2018-06-08 03:48] LABS: Albumin 3.6 g/dL (3.5-5.7); Albumin/Globulin Ratio 0.8 (1.1-2.2); Bilirubin,Direct 0.2 mg/dL (0.0-0.2); Bilirubin,Indirect 0.4 mg/dL (0.0-1.2); Bilirubin,Total 0.6 mg/dL (0.3-1.0); Calcium 8.9 mg/dL (8.6-10.3); Globulin 4.3 g/dL (2.4-3.5); Total Protein 7.9 g/dL (6.4-8.9)
[2018-06-08] MEDS: *HR* Heparin 5,000 UNIT/ML VIAL SQ SCH ×2 (06:28→18:00)
[2018-06-08] MEDS ORDERED: Insulin LISPRO 300 UNITS/3 ML VIAL SQ SCH (07:30)
[2018-06-08] MEDS ORDERED: Furosemide 40 MG TABLET PO SCH (08:15)
[2018-06-08] MEDS ORDERED: Spironolactone 25 MG TABLET PO SCH (09:00)
[2018-06-08] MEDS: Aspirin 81 MG TAB.CHEW PO SCH (09:03)
[2018-06-08] MEDS: Lactulose Oral Soln 20 GM/30 ML UDC PO SCH ×2 (09:03→19:41)
[2018-06-08] MEDS: risperiDONE 0.25 MG TABLET PO SCH ×3 (09:04→19:40)
[2018-06-08] MEDS: Sennosides 8.6 MG TABLET PO SCH (09:04)
[2018-06-08] MEDS: OXcarbazepine 150 MG TABLET PO SCH ×2 (09:04→19:41)
[2018-06-08] MEDS ORDERED: *HR* Dextrose 50 % in Water (Syg) 50 ML SYRINGE IVP PRN (09:35)
[2018-06-08] MEDS ORDERED: Acetaminophen 650 MG RECTAL SUPP RC PRN (09:35)
[2018-06-08] MEDS ORDERED: Naloxone 0.4 MG/ML INJ IVP PRN (09:35)
[2018-06-08] MEDS ORDERED: D5% in Water 1,000 ML IVC PRN (09:35)
[2018-06-08] MEDS ORDERED: Dextrose Gel 15 GM/37.5 ML TUBE PO PRN ×2 (09:35)
[2018-06-08] MEDS ORDERED: *HR* LORazepam 0.5 MG TABLET PO PRN (09:35)
[2018-06-08] MEDS: Insulin LISPRO 300 UNITS/3 ML VIAL SQ SCH ×3 (12:35→22:51)
[2018-06-08] MEDS: Furosemide 40 MG TABLET PO SCH ×2 (12:40→18:00)
--- NOTE | 2018-06-08 13:13 | Event Note ---
Date of Encounter: 06/08/18 Time of Encounter: 13:09 - Cardiology Event Note TTE resulted--LVEF 45-50%. Normal left ventricular diastolic function. Normal right ventricular structure and function. Trileaflet aortic valve. Moderate aortic stenosis. The estimated aortic valve area was approximately 1.25 cm2. Peak gradient is 40mmHg and peak aortic velocity is 3.49cm/s. Trace tricuspid regurgitation. Unable to estimate RVSP due to lack of TR jet. A device lead was visualized in the right atrium and right ventricle. Historically EF ranges from mildly reduced/low normal of 45-50% 03/2017, then improved to 50-55%, now 45-50% again. Pt denies chest pain. Dyspnea improved s/ p paracentesis. Troponins negative. PPM was set at VVI 40. Increased rate to 50bpm today after discussion with Dr. Damian Calderon given that HR was persistently in the 40s. Plan for outpt follow-up in 2-3 weeks. Will need to repeat outpt TTE in the future since there is risk of PPM induced CMP with increasing his V pacing rate/ percentage. Cardiology signing off. Reconsult PRN.
[2018-06-08] MEDS: Spironolactone 25 MG TABLET PO SCH ×2 (14:07→19:40)
--- NOTE | 2018-06-08 14:16 | Internal Med Progress Note ---
<Catrachita Knight - Last Filed: 06/08/18 14:11> Hospitalist Progress Note - Encounter Date of Encounter: 06/08/18 Time of Encounter: 10:00 - Subjective Interval History: Mr. Diaz was examined at bedside chair this morning. He was awake and alert and eating his breakfast. He was a poor historian and was unable to provide me with a detained history of his presenting symptoms. He was unsure how long his shortness of breath was ongoing prior to his admission. Additionally, he was not sure if he has been diagnosed with cirrhosis or the cause of his ascites at presentation. He denied shortness of breath, as he was on 2 liters of nasal canula and saturation of 95%. He denied chest pain, fever, chills, nausea, emesis, abdominal pain, paresthesis or recent change in vision. - Exam Vitals: Temp Pulse Resp BP Pulse Ox 98.5 F 43 19 115/73 97 06/08/18 12:00 06/08/18 08:00 06/08/18 11:35 06/08/18 08:00 06/08/18 11:35 Exam: Constitutional: Alert, in no acute distress HEENT: normocephalic, atraumatic Heart: Bradycardic, no murmurs Lungs: breath sounds equal at all lungs lobes, no wheezes, rales, or rhonchi Abdomen: very obese abdomen, bowel sounds active, no ascites noted Extremities: venous stasis of bilateral lower legs, no edema Skin: Skin warm and dry, no lesions, no rashes, no jaundice, vascular changes at bilateral lower legs Neurologic: awake, alert and oriented x3 Psych: Uncooperative with exam, having burst of yelling when answering questions , thought content congruent, flat affect - Assessment and Plan (1) Diabetes mellitus with neuropathy Current Visit: No Status: Chronic Assessment and Plan: Blood sugar at goal for hospitalization as it is 160. Glucose 195 this morning , increased to 12 units of basal insulin plus SSI. At home he is on a much higher dose -Continue to monitor -Continue diabetic diet (2) Iron deficiency anemia Current Visit: No Status: Chronic Assessment and Plan: Chronic for patient. Hemoglobin 9.4 which is slightly higher than his baseline , may be an element of hemoconcentration. No evidence of active bleeding. Continue iron supplementation. (3) Cirrhosis Current Visit: Yes Status: Chronic Assessment and Plan: At presentation had distended abdomen and IR paracentesis done which relieved 4L fluid drained. Cell count shows PMN 720 but analysis shows lymphocytes and there is no white count elevated. There is no fever, no abdominal tenderness. It is likely not SBP. (4) COPD (chronic obstructive pulmonary disease) Current Visit: No Status: Chronic Assessment and Plan: No evidence of acute exacerbation, no wheezing or sputum production on exam. -Scheduled DuoNeb's for shortness of breath. -Wean off oxygen (5) Bradycardia Current Visit: Yes Status: Acute Assessment and Plan: Asymptomatic at this time. Cardiology increased the setting to 50 bpm as it was set at 40. -Outpatient cardiology follow up in 2-3 weeks (6) Acute electrocardiography changes Current Visit: Yes Status: Acute Assessment and Plan: Pt denies chest pain. 3 sets of troponin negative. -Echo shows EF of 45 to 50% with mid anterior and inferior septal wall hypokinesia -Continue home medications -Cardiology also increased the rate of the pacemaker to 50 bpm as it was set at 40. -Outpatient cardiology follow up in 2-3 weeks (7) CHERRIE (acute kidney injury) Current Visit: Yes Status: Chronic Assessment and Plan: His most recent creatinine was 1.53 and at presentation it was 1.68. He has history of chronic elevated creatinine. He is on high home dose of lasix and spironolactone which could be contributing to his elevated creatinine. Continue to monitor. (8) DVT prophylaxis Current Visit: Yes Status: Acute Assessment and Plan: Heparin 5000 units subcutaneous twice a day (9) Acute respiratory failure Current Visit: Yes Status: Acute Assessment and Plan: Resolved. Possibly due to ascites as his shortness of breath has resolved after paracentesis. SBP ruled out according to peritoneal fluid analysis as it is high in lymphocytes and he has no white count. - Time Spent with Patient Total time spent is greater than 50% in coordination of care (as documented) at patient's floor/unit and/or counseling patient: 25 - 35 minutes Plan of Care Discussed with: patient Internal Medicine: Result - Labs CBC & Chem 7: 06/08/18 03:17 06/08/18 03:17 Labs: Short CBC 06/08/18 Range/Units 03:17 WBC 8.6 (4.3-11.1) K/mcL Hgb 9.4 L (12.9-16.9) g/dL Hct 31.0 L (37.5-50.1) % Plt Count 307 (140-400) K/mcL Neutrophils # 6.5 (1.6-8.9) K/mcL BMP 06/08/18 03:17 Sodium 130 L Potassium 4.0 Chloride 93 L Carbon Dioxide 26 BUN 57 H Creatinine 1.53 H Glucose 151 H Calcium 8.9 Liver Function 06/08/18 Range/Units 03:17 Total Bilirubin 0.6 (0.3-1.0) mg/dL Direct Bilirubin 0.2 (0.0-0.2) mg/dL AST 11 L (13-39) Units/L ALT 12 (7-52) Units/L Alkaline Phosphatase 106 H (34-104) Units/L Albumin 3.6 (3.5-5.7) g/dL - ABG Interpretation ABG results: PT/INR, D-dimer PT 15.3 Seconds (9.4-12.1) H 06/07/18 02:04 - Impressions Impressions Echocardiogram 06/08/18 00:00 Impressions: LVEF 45-50%. Normal left ventricular diastolic function. Normal right ventricular structure and function. Trileaflet aortic valve. Moderate aortic stenosis. The estimated aortic valve area was approximately 1.25 cm2. Peak gradient is 40mmHg and peak aortic velocity is 3.49cm/s. Trace tricuspid regurgitation. Unable to estimate RVSP due to lack of TR jet. A device lead was visualized in the right atrium and right ventricle. Left Ventricular Wall Motion: Rest Echo Findings The mid inferior septal and mid anterior septal mcconnell were hypokinetic. All other wall segments showed normal motion. Findings: Study Quality * Technically adequate exam. ECG Findings * Paced rhythm. Left Ventricle * LVEF 45-50%. * Normal left ventricular diastolic function. Right Ventricle * Normal right ventricular structure and function. Left Atrium * Normal left atrial size. Right Atrium * Normal right atrial size. Interatrial Septum * No evidence of PFO by color Doppler. Aortic Valve * Trileaflet aortic valve. * Moderately calcified aortic valve leaflets. * Moderate aortic stenosis. * The estimated aortic valve area was approximately 1.25 cm2. * Peak gradient is 40mmHg and peak aortic velocity is 3.49cm/s. Mitral Valve * Normal mitral valve structure. * No mitral regurgitation. * No mitral stenosis. Tricuspid Valve * Trace tricuspid regurgitation. * Normal tricuspid valve structure. * Unable to estimate RVSP due to lack of TR jet. Pulmonic Valve * Normal pulmonic valve structure. * No pulmonic regurgitation. Aorta * Normally sized aortic root. Pericardium * The pericardium appears normal. IVC * Normal IVC dimensions and inspiratory collapse. Device lead * A device lead was visualized in the right atrium and right ventricle. Pulmonary Artery * Normal visualized portions of the main pulmonary artery. Consult Discharge Plan - Plan Referrals: Damian Seymour MD [Primary Care Provider] - <TeeBongyunior - Last Filed: 06/08/18 15:29> Hospitalist Progress Note - Encounter Date of Encounter: 06/08/18 - Exam Vitals: Temp Pulse Resp BP Pulse Ox 98.5 F 43 19 115/73 97 06/08/18 12:00 06/08/18 08:00 06/08/18 11:35 06/08/18 08:00 06/08/18 11:35 - Assessment and Plan (1) DVT prophylaxis Current Visit: Yes Status: Acute (2) Diabetes mellitus with neuropathy Current Visit: No Status: Chronic (3) Iron deficiency anemia Current Visit: No Status: Chronic (4) Cirrhosis Current Visit: Yes Status: Chronic (5) CHERREI (acute kidney injury) Current Visit: Yes Status: Chronic (6) COPD (chronic obstructive pulmonary disease) Current Visit: No Status: Chronic (7) Bradycardia Current Visit: Yes Status: Acute (8) Acute electrocardiography changes Current Visit: Yes Status: Acute (9) Acute respiratory failure Current Visit: Yes Status: Acute - Time Spent with Patient Total time spent is greater than 50% in coordination of care (as documented) at patient's floor/unit and/or counseling patient: Internal Medicine: Result - Labs CBC & Chem 7: 06/08/18 03:17 06/08/18 03:17 Labs: Short CBC 06/08/18 Range/Units 03:17 WBC 8.6 (4.3-11.1) K/mcL Hgb 9.4 L (12.9-16.9) g/dL Hct 31.0 L (37.5-50.1) % Plt Count 307 (140-400) K/mcL Neutrophils # 6.5 (1.6-8.9) K/mcL BMP 06/08/18 03:17 Sodium 130 L Potassium 4.0 Chloride 93 L Carbon Dioxide 26 BUN 57 H Creatinine 1.53 H Glucose 151 H Calcium 8.9 Liver Function 06/08/18 Range/Units 03:17 Total Bilirubin 0.6 (0.3-1.0) mg/dL Direct Bilirubin 0.2 (0.0-0.2) mg/dL AST 11 L (13-39) Units/L ALT 12 (7-52) Units/L Alkaline Phosphatase 106 H (34-104) Units/L Albumin 3.6 (3.5-5.7) g/dL - ABG Interpretation ABG results: PT/INR, D-dimer PT 15.3 Seconds (9.4-12.1) H 06/07/18 02:04 - Impressions Impressions Echocardiogram 06/08/18 00:00 Impressions: LVEF 45-50%. Normal left ventricular diastolic function. Normal right ventricular structure and function. Trileaflet aortic valve. Moderate aortic stenosis. The estimated aortic valve area was approximately 1.25 cm2. Peak gradient is 40mmHg and peak aortic velocity is 3.49cm/s. Trace tricuspid regurgitation. Unable to estimate RVSP due to lack of TR jet. A device lead was visualized in the right atrium and right ventricle. Left Ventricular Wall Motion: Rest Echo Findings The mid inferior septal and mid anterior septal mcconnell were hypokinetic. All other wall segments showed normal motion. Findings: Study Quality * Technically adequate exam. ECG Findings * Paced rhythm. Left Ventricle * LVEF 45-50%. * Normal left ventricular diastolic function. Right Ventricle * Normal right ventricular structure and function. Left Atrium * Normal left atrial size. Right Atrium * Normal right atrial size. Interatrial Septum * No evidence of PFO by color Doppler. Aortic Valve * Trileaflet aortic valve. * Moderately calcified aortic valve leaflets. * Moderate aortic stenosis. * The estimated aortic valve area was approximately 1.25 cm2. * Peak gradient is 40mmHg and peak aortic velocity is 3.49cm/s. Mitral Valve * Normal mitral valve structure. * No mitral regurgitation. * No mitral stenosis. Tricuspid Valve * Trace tricuspid regurgitation. * Normal tricuspid valve structure. * Unable to estimate RVSP due to lack of TR jet. Pulmonic Valve * Normal pulmonic valve structure. * No pulmonic regurgitation. Aorta * Normally sized aortic root. Pericardium * The pericardium appears normal. IVC * Normal IVC dimensions and inspiratory collapse. Device lead * A device lead was visualized in the right atrium and right ventricle. Pulmonary Artery * Normal visualized portions of the main pulmonary artery. - Attending Attestation I have seen and examined this pt independently. I have discussed with resident physician Dr Knight regarding the management plan. Agree with the documentation. Pt's peritoneal fluid cell count final differential shows neutrophil 8%, absolute count 57.6, SBP ruled out, abx was discontinued. <Catrachita Knight - Last Filed: 06/08/18 14:11> (1) Diabetes mellitus with neuropathy Qualifiers: Diabetes mellitus type: type 2 Diabetes mellitus mohs surgeon/general dermatologist insulin use: with custodial use Qualified Code(s): E11.40 - Type 2 diabetes mellitus with diabetic neuropathy, unspecified; Z79.4 - solution advisor (current) use of insulin; Z79.4 - solution advisor (current) use of insulin; Z79.4 - solution advisor (current) use of insulin; Z79.4 - solution advisor (current) use of insulin (2) Iron deficiency anemia Qualifiers: Iron deficiency anemia type: unspecified iron deficiency Qualified Code(s): D50.9 - Iron deficiency anemia, unspecified (3) Cirrhosis Qualifiers: Hepatic cirrhosis type: unspecified hepatic cirrhosis Ascites presence: with ascites Qualified Code(s): K74.60 - Unspecified cirrhosis of liver; R18.8 - Other ascites (4) COPD (chronic obstructive pulmonary disease) Qualifiers: COPD type: emphysema Emphysema type: unspecified Qualified Code(s): J43.9 - Emphysema, unspecified (9) Acute respiratory failure Qualifiers: Respiratory failure complication: hypoxia Qualified Code(s): J96.01 - Acute respiratory failure with hypoxia <Thomas Oliveira - Last Filed: 06/08/18 15:29> (2) Diabetes mellitus with neuropathy Qualifiers: Diabetes mellitus type: type 2 Diabetes mellitus mohs surgeon/general dermatologist insulin use: with custodial use Qualified Code(s): E11.40 - Type 2 diabetes mellitus with diabetic neuropathy, unspecified; Z79.4 - solution advisor (current) use of insulin; Z79.4 - solution advisor (current) use of insulin; Z79.4 - shelter (current) use of insulin; Z79.4 - shelter (current) use of insulin (3) Iron deficiency anemia Qualifiers: Iron deficiency anemia type: unspecified iron deficiency Qualified Code(s): D50.9 - Iron deficiency anemia, unspecified (4) Cirrhosis Qualifiers: Hepatic cirrhosis type: unspecified hepatic cirrhosis Ascites presence: with ascites Qualified Code(s): K74.60 - Unspecified cirrhosis of liver; R18.8 - Other ascites (6) COPD (chronic obstructive pulmonary disease) Qualifiers: COPD type: emphysema Emphysema type: unspecified Qualified Code(s): J43.9 - Emphysema, unspecified (9) Acute respiratory failure Qualifiers: Respiratory failure complication: hypoxia Qualified Code(s): J96.01 - Acute respiratory failure with hypoxia
[2018-06-08] MEDS: Melatonin 3 MG TABLET PO SCH (19:41)
[2018-06-08] MEDS ORDERED: Insulin DETEMIR 100 UNIT/ML X5UNITS SQ SCH (21:00)
[2018-06-08] MEDS: Insulin DETEMIR 100 UNIT/ML X5UNITS SQ SCH (22:51)
[2018-06-09 01:24] LABS: Fluid Source for Albumin ASCITES
[2018-06-09] MEDS: Ipratropium/Albuterol Neb 3 ML IH SCH ×5 (04:06→20:19)
[2018-06-09 04:41] LABS: Basophils # 0.1 K/mcL (0.0-0.2); Basophils % 0.6 %; Eosinophils # 0.2 K/mcL (0.0-0.6); Eosinophils % 2.7 %; Hematocrit 31.1 % (37.5-50.1); Hemoglobin 9.5 g/dL (12.9-16.9); Immature Granulocytes % 0.5 % (0-4); Lymphocytes # 0.4 K/mcL (0.6-4.6); Lymphocytes % 4.8 %; Mean Corpuscular HGB Conc 30.5 g/dL (31.6-35.5); Mean Corpuscular Hemoglobin 24.2 pg (28.0-33.3); Mean Corpuscular Volume 79.3 fL (83.0-100.0); Mean Platelet Volume 8.6 fL (9.4-12.4); Monocytes # 1.2 K/mcL (0.0-1.3); Neutrophils # 6.9 K/mcL (1.6-8.9); Platelet Count 312 K/mcL (140-400); Red Blood Count 3.92 M/mcL (4.19-5.50); Segmented Neutrophils % 78.4 %
[2018-06-09 04:57] LABS: Calcium 9.3 mg/dL (8.6-10.3); Potassium 3.8 mEq/L (3.5-5.1)
[2018-06-09] MEDS: *HR* Heparin 5,000 UNIT/ML VIAL SQ SCH ×2 (06:46→18:49)
[2018-06-09] MEDS: Insulin LISPRO 300 UNITS/3 ML VIAL SQ SCH ×4 (09:08→21:29)
[2018-06-09] MEDS: Sennosides 8.6 MG TABLET PO SCH (09:09)
[2018-06-09] MEDS: Spironolactone 25 MG TABLET PO SCH ×3 (09:09→21:28)
[2018-06-09] MEDS: risperiDONE 0.25 MG TABLET PO SCH ×3 (09:09→21:29)
[2018-06-09] MEDS ORDERED: Acetaminophen 325 MG TABLET PO PRN (09:14)
[2018-06-09] MEDS: Furosemide 40 MG TABLET PO SCH ×3 (09:14→18:49)
[2018-06-09] MEDS: Aspirin 81 MG TAB.CHEW PO SCH (09:15)
[2018-06-09] MEDS: OXcarbazepine 150 MG TABLET PO SCH ×2 (09:15→21:28)
[2018-06-09] MEDS: Lactulose Oral Soln 20 GM/30 ML UDC PO SCH ×2 (09:15→21:29)
--- NOTE | 2018-06-09 10:32 | Discharge Summary ---
<Catrachita Knight - Last Filed: 06/09/18 11:57> - NOTES TO OUTPATIENT PROVIDER Notes to Outpatient Provider: Mr. Diaz is a 72 year old male who was presented due to shortness of breath. At presentation to the ED he denied any shortness of breath or chest pain. EKG here showed left bundle branch block with bradycardia. Cardiology was consulted and his pacemaker rhythm was increased. His echo did not show any new changes. They recommended outpatient 2-3 week follow up. He also had ascites and paracentesis removed 4 liters of fluid. He is a poor historian and unsure of cirrhosis history. Fluid analysis of the paracentesis showed lymphocytes. He had no PMS, so SBP was ruled out. Also, no abdominal pain, fever or elevated white count. It was suspected the fluid caused increase in intrathoracic pressure leading to difficulty breathing. He is comfortable in room air and has no complaints today. Date of Encounter: 06/09/18 Time of Encounter: 10:15 - Discharge Diagnosis (1) Iron deficiency anemia Priority: Secondary Status: Chronic Qualifiers: Iron deficiency anemia type: unspecified iron deficiency Qualified Code(s) : D50.9 - Iron deficiency anemia, unspecified (2) Diabetes mellitus with neuropathy Priority: Secondary Status: Chronic Qualifiers: Diabetes mellitus type: type 2 Diabetes mellitus long term care administrator insulin use: with fpc use Qualified Code(s): E11.40 - Type 2 diabetes mellitus with diabetic neuropathy, unspecified; Z79.4 - FDC (current) use of insulin (3) Cirrhosis Priority: Secondary Status: Chronic Qualifiers: Hepatic cirrhosis type: unspecified hepatic cirrhosis Ascites presence: with ascites Qualified Code(s): K74.60 - Unspecified cirrhosis of liver; R18.8 - Other ascites (4) COPD (chronic obstructive pulmonary disease) Priority: Secondary Status: Chronic Qualifiers: COPD type: emphysema Emphysema type: unspecified Qualified Code(s): J43.9 - Emphysema, unspecified (5) Bradycardia Priority: Secondary Status: Acute (6) Acute electrocardiography changes Priority: Secondary Status: Acute (7) CHERRIE (acute kidney injury) Priority: Secondary Status: Chronic (8) DVT prophylaxis Priority: Secondary Status: Acute (9) Acute respiratory failure Priority: Primary Status: Acute Qualifiers: Respiratory failure complication: hypoxia Qualified Code(s): J96.01 - Acute respiratory failure with hypoxia Hospital course: Mr. Diaz is a 72 year old female who has past medical history based on chart review of atrial fibrillation, CHF, COPD, diabetes, hyperlipidemia, HTN, liver disease and renal disease. He was a poor historian during his stay here. He was found to the ED for shortness of breath. He had a chest x ray which showed mild right flexural effusion. EKG at the ED showed left bundle branch block with bradycardia. Cardiology was consulted and his pacemaker rhythm was increased from 40 to 50. His echo did not show any new changes. They recommended outpatient 2-3 week follow up. His abdomen was fairly large so untrasound of the abdomen showed fluid for which he had paracentesis and had 4 liters of fluid drained. His labs has also been stable with presence of chronic anemia, he denies any hematemesis, hematochezia or abdominal pain. Since the fluid drainage he denies any shortness of breath, fever, chills, cough, nausea, emesis or abdominal pain. He is comfortable on room air. He will have an outpatient follow up with Gastroenterology for his cirrhosis and cardiology follow up. Discharge discussed with: patient Time spent discussing smoking cessation with patient: more than 10 minutes - Time Spent with Patient Total time spent providing and/or coordinating discharge services: Less than 30 minutes - Discharge Medications Home Medications: Aspirin 81 mg PO DAILY 04/28/15 [History] Albuterol Sulfate [Proair Hfa] 2 puff IH Q4H PRN 01/25/17 [History] Spironolactone [Aldactone] 25 mg PO TID 06/17/17 [History] Lactulose 15 ml PO BID 08/30/17 [History] Sennosides [Senokot] 8.6 mg PO DAILY 08/30/17 [History] SitaGLIPtin [Januvia] 100 mg PO DAILY 08/30/17 [History] Acetaminophen [Tylenol 650mg SUPP] 650 mg RC Q4HR PRN 10/04/17 [History] traZODone [TraZODone] 300 mg PO HS 11/15/17 [History] Potassium Chloride 20 meq PO DAILY tab.er.prt 12/07/17 [Rx] Furosemide [Lasix] 80 mg PO TID 03/30/18 [History] Insulin LISPRO [HumaLOG] 2 - 14 units SQ TIDWM PRN 03/30/18 [History] Melatonin [Melatin] 6 mg PO HS 03/30/18 [History] OXcarbazepine [Trileptal] 150 mg PO BID 03/30/18 [History] Omeprazole [PriLOSEC] 20 mg PO DAILY 03/30/18 [History] Sertraline [Zoloft] 200 mg PO DAILY 03/30/18 [History] risperiDONE [RisperDAL] 0.25 mg PO TID 03/30/18 [History] LORazepam [Ativan] 0.5 mg PO TID 5 Days #15 tablet 04/05/18 [Rx] Ferrous Sulfate [Iron] 325 mg PO BID 06/06/18 [History] Insulin DETEMIR [Levemir] 35 units SQ BID 06/06/18 [History] Allergies/Adverse Reactions: 3 Allergy/AdvReac Type Severity Reaction Status Date / Time bupropion [From Wellbutrin] Allergy Difficulty Verified 03/30/18 12:42 Breathing codeine Allergy Difficulty Verified 03/30/18 12:42 Breathing Opioids-Meperidine and Allergy Difficulty Verified 03/30/18 12:42 Related Breathing [Opioids-Meperidine & Related] Date of admission: 06/07/18 17:46 Primary care physician: Damian Seymour MD Consults: Cardiology and IR for paracentesis Discharging clinician: Catrachita Knight Anticipated date of discharge: 06/09/18 - Constitutional Vitals: Temp Pulse Resp BP Pulse Ox 97.9 F 51 20 133/62 90 06/09/18 08:32 06/09/18 08:32 06/09/18 08:32 06/09/18 08:32 06/09/18 08:32 General appearance: Present: A&O X 3 (but poor historian), no acute distress, underweight Exam: awake and alert - Head Head exam: Present: atraumatic, normocephalic - Eye Eye exam: Present: normal appearance, sclera anicteric. Absent: conjunctival injection - ENT ENT exam: Present: mucous membranes moist - Neck Neck exam general surgery: Present: full ROM - Respiratory Respiratory exam: Present: CTAB. Absent: accessory muscle use, chest wall tenderness, rales, wheezes - Cardiovascular Cardiovascular exam: Present: +S1, +S2. Absent: clicks, gallop Additional comments: no edema - GI/Abdominal GI/Abdominal exam: Present: distended, normal bowel sounds. Absent: tenderness Additional comments: very large abdomen. no tenderness - Extremities Exam Extremities exam: Present: full ROM, warm Additional comments: vascular changes of bilateral lower extremities - Psychiatric Psychiatric exam: Present: agitated - Skin Skin exam: Present: dry, intact, warm Additional comments: vascular changes of bilateral lower legs - Patient Status Disposition: Transfer SNF Condition: Fair Overall status at discharge: patient is progressing back to baseline - Discharge Instructions Follow Up With: Getachew Singer MD [Partnered Physician] - 06/27/18 3:45 pm (Follow up as scheduled. ) Cortes Rajan CNP [Advanced Practice Nurse] - (On the list, they will call the patient with the appointment time. ) Damian Seymour MD [Primary Care Provider] - - Diet and Activity Activity: increase activity as tolerated Diet: diabetic diet <Thomas Oliveira - Last Filed: 06/09/18 13:35> Date of Encounter: 06/09/18 - Discharge Diagnosis (1) DVT prophylaxis Status: Acute (2) Diabetes mellitus with neuropathy Status: Chronic Qualifiers: Diabetes mellitus type: type 2 Diabetes mellitus long term care administrator insulin use: with long term care administrator use Qualified Code(s): E11.40 - Type 2 diabetes mellitus with diabetic neuropathy, unspecified; Z79.4 - intermediate teacher (current) use of insulin (3) Iron deficiency anemia Status: Chronic Qualifiers: Iron deficiency anemia type: unspecified iron deficiency Qualified Code(s) : D50.9 - Iron deficiency anemia, unspecified (4) Cirrhosis Status: Chronic Qualifiers: Hepatic cirrhosis type: unspecified hepatic cirrhosis Ascites presence: with ascites Qualified Code(s): K74.60 - Unspecified cirrhosis of liver; R18.8 - Other ascites (5) CHERRIE (acute kidney injury) Status: Chronic (6) COPD (chronic obstructive pulmonary disease) Status: Chronic Qualifiers: COPD type: emphysema Emphysema type: unspecified Qualified Code(s): J43.9 - Emphysema, unspecified (7) Bradycardia Status: Chronic (8) Acute electrocardiography changes Status: Acute (9) Acute respiratory failure Status: Resolved Qualifiers: Respiratory failure complication: hypoxia Qualified Code(s): J96.01 - Acute respiratory failure with hypoxia Hospital course: Mr. Diaz is a 72 year old male - Time Spent with Patient Total time spent providing and/or coordinating discharge services: Date of admission: 06/07/18 17:46 Primary care physician: Damian Seymour MD - Constitutional Vitals: Temp Pulse Resp BP Pulse Ox 97.4 F L 50 20 112/58 94 06/09/18 11:33 06/09/18 11:33 06/09/18 11:33 06/09/18 11:33 06/09/18 11:33 - Attending Attestation I have seen and examined this pt independently. I have discussed with resident physician Dr Knight regarding the discharge and follow up plan. Agree with the documentation.
--- NOTE | 2018-06-09 13:07 | Physician Discharge Referral ---
ExtendedCare Referral Info Transfer To: [facility] Provider in Charge after Transfer: PCP Institutional Level of Care: Skilled - Diagnosis (1) Acute respiratory failure Priority: Primary Status: Resolved (2) Iron deficiency anemia Priority: Secondary Status: Chronic (3) Diabetes mellitus with neuropathy Priority: Secondary Status: Chronic (4) Cirrhosis Priority: Secondary Status: Chronic (5) COPD (chronic obstructive pulmonary disease) Priority: Secondary Status: Chronic (6) Bradycardia Priority: Secondary Status: Chronic (7) Acute electrocardiography changes Priority: Secondary Status: Acute (8) CHERRIE (acute kidney injury) Priority: Secondary Status: Chronic (9) DVT prophylaxis Priority: Secondary Status: Acute Prognosis: Fair Aware of Diagnosis: Patient Aware of Prognosis: Patient - Transfer Medications Home Medications: Aspirin 81 mg PO DAILY 04/28/15 [History] Albuterol Sulfate [Proair Hfa] 2 puff IH Q4H PRN 01/25/17 [History] Spironolactone [Aldactone] 25 mg PO TID 06/17/17 [History] Lactulose 15 ml PO BID 08/30/17 [History] Sennosides [Senokot] 8.6 mg PO DAILY 08/30/17 [History] SitaGLIPtin [Januvia] 100 mg PO DAILY 08/30/17 [History] Acetaminophen [Tylenol 650mg SUPP] 650 mg RC Q4HR PRN 10/04/17 [History] traZODone [TraZODone] 300 mg PO HS 11/15/17 [History] Potassium Chloride 20 meq PO DAILY tab.er.prt 12/07/17 [Rx] Furosemide [Lasix] 80 mg PO TID 03/30/18 [History] Insulin LISPRO [HumaLOG] 2 - 14 units SQ TIDWM PRN 03/30/18 [History] Melatonin [Melatin] 6 mg PO HS 03/30/18 [History] OXcarbazepine [Trileptal] 150 mg PO BID 03/30/18 [History] Omeprazole [PriLOSEC] 20 mg PO DAILY 03/30/18 [History] Sertraline [Zoloft] 200 mg PO DAILY 03/30/18 [History] risperiDONE [RisperDAL] 0.25 mg PO TID 03/30/18 [History] LORazepam [Ativan] 0.5 mg PO TID 5 Days #15 tablet 04/05/18 [Rx] Ferrous Sulfate [Iron] 325 mg PO BID 06/06/18 [History] Insulin DETEMIR [Levemir] 35 units SQ BID 06/06/18 [History] Allergies/Adverse Reactions: 3 Allergy/AdvReac Type Severity Reaction Status Date / Time bupropion [From Wellbutrin] Allergy Difficulty Verified 03/30/18 12:42 Breathing codeine Allergy Difficulty Verified 03/30/18 12:42 Breathing Opioids-Meperidine and Allergy Difficulty Verified 03/30/18 12:42 Related Breathing [Opioids-Meperidine & Related] - Respiratory Orders None Smoking Cessation: Smoking cessation has been advised. For more information, call the [place] Tobacco Quit Line at 7-241-WZCH-NOW. - Advance Directives Code Status: Full Code - Mobility Orders Other (ambulate as patient finds comfortable and found safe by PT/OT) - Diet Orders No Concentrated Sweets CERTIFICATION: I certify that the transfer of the above named patient to an Extended Care Facility is necessary for the continuing treatment of the diagnosis listed. The above information is true and accurate reflection of patient's current condition. Confidential - Redisclosure prohibited without a patient's written consent.
[2018-06-09] MEDS: Melatonin 3 MG TABLET PO SCH (21:28)
[2018-06-09] MEDS: Insulin DETEMIR 100 UNIT/ML X5UNITS SQ SCH (21:29)
[2018-06-10] MEDS: Ipratropium/Albuterol Neb 3 ML IH SCH ×3 (00:16→07:26)
[2018-06-10] MEDS: *HR* Heparin 5,000 UNIT/ML VIAL SQ SCH (06:05)
[2018-06-10 07:44] VITALS: BP 100/54
[2018-06-10] MEDS: risperiDONE 0.25 MG TABLET PO SCH (08:15)
[2018-06-10] MEDS: Furosemide 40 MG TABLET PO SCH (08:15)
[2018-06-10] MEDS: OXcarbazepine 150 MG TABLET PO SCH (08:15)
[2018-06-10] MEDS: Spironolactone 25 MG TABLET PO SCH (08:15)
[2018-06-10] MEDS: Aspirin 81 MG TAB.CHEW PO SCH (08:16)
[2018-06-10] MEDS: Sennosides 8.6 MG TABLET PO SCH (08:16)
[2018-06-10] MEDS: Insulin LISPRO 300 UNITS/3 ML VIAL SQ SCH (08:16)
[2018-06-10] MEDS: Lactulose Oral Soln 20 GM/30 ML UDC PO SCH (08:16)
--- NOTE | 2018-06-10 11:16 | Event Note ---
<Keegan Hernandez - Last Filed: 06/10/18 11:13> Date of Encounter: 06/10/18 Time of Encounter: 11:13 Discharged and left facility. Patient not seen or evaluated this morning, was discharged prior to entering room for visit. Patient was discharged yesterday evening, but was held overnight pending placement. Patient was admitted due to shortness of breath, ditermined to have bradycardia with left bundle branch block and ascites, suspect increased peritoneal fluid caused increased intrathoracic pressure resulting in some dyspnea. <Thomas Oliveira - Last Filed: 06/10/18 13:27> Date of Encounter: 06/10/18 I have seen and examined this pt. Pt denies SOB, feels fine at his baseline. Physical exam same with yesterday. Not leave to ECF b/o bed issue. Will discharge to ECF this AM.
--- NOTE | 2018-06-11 09:06 | Electrocardiograph Report ---
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
--- NOTE | 2018-06-11 09:08 | Electrocardiograph Report ---
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
--- NOTE | 2018-06-11 09:10 | Electrocardiograph Report ---
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
== END 2018-06-10 10:00 | DRG 371 ==
LOC: ICNU 17:32 → EMEROOARM 17:32 → ICNU 22:05 → SUATTDRO 06-07 17:46 → 2ANU 06-08 19:26
PROVIDERS: ADMIT Internal Medicine; ATTEND Internal Medicine

== ENCOUNTER 2018-08-28 17:17 | Observation (INO) ==
[2018-08-28 18:14] LABS: Nucleated Red Blood Cells 0.3 /100 WBC (0)
[2018-08-28 18:16] LABS: Basophils # 0.1 K/mcL (0.0-0.2); Basophils % 0.5 %; Eosinophils # 0.2 K/mcL (0.0-0.6); Eosinophils % 1.7 %; Hematocrit 16.9 % (37.5-50.1); Immature Granulocytes % 0.4 % (0-4); Lymphocytes # 0.5 K/mcL (0.6-4.6); Lymphocytes % 4.8 %; Mean Corpuscular HGB Conc 30.2 g/dL (31.6-35.5); Mean Corpuscular Hemoglobin 22.2 pg (28.0-33.3); Mean Corpuscular Volume 73.5 fL (83.0-100.0); Mean Platelet Volume 8.8 fL (9.4-12.4); Monocytes # 1.2 K/mcL (0.0-1.3); Monocytes % 10.9 %; Platelet Count 432 K/mcL (140-400); Red Cell Distribution Width 17.5 % (11.5-14.5); Segmented Neutrophils % 81.7 %
[2018-08-28 18:32] LABS: Albumin 3.5 g/dL (3.5-5.7); Albumin/Globulin Ratio 0.9 (1.1-2.2); Bilirubin,Total 0.4 mg/dL (0.3-1.0); Globulin 4.1 g/dL (2.4-3.5); Total Protein 7.6 g/dL (6.4-8.9)
[2018-08-28 18:48] LABS: Hemoglobin 5.1 g/dL (12.9-16.9); Hypochromasia Present (Not Present); Neutrophils # 8.7 K/mcL (1.6-8.9)
[2018-08-28 18:49] LABS: Anisocytosis 1+ (Not Present); Platelet Estimate Normal (Normal)
--- NOTE | 2018-08-28 18:49 | Emergency Department Note ---
Disposition Clinical Impression: Anemia Qualifiers: Anemia type: unspecified type Qualified Code(s): D64.9 - Anemia, unspecified CKD (chronic kidney disease) Qualifiers: Chronic kidney disease stage: stage 3 (moderate) Qualified Code(s): N18.3 - Chronic kidney disease, stage 3 (moderate) Disposition: Admitted As Inpatient Condition: Good General Adult HPI - General Chief complaint: ED Recheck/Abnormal Lab/Rx Stated complaint: low hemoglobin Time Seen by Provider: 08/28/18 17:25 Source: patient, EMS Limitations: no limitations Nursing Notes Reviewed: Yes Vital Signs Reviewed: Yes - History of Present Illness HPI Narrative: 72-year-old male with history of cirrhosis, CKD stage III, cardiomyopathywho presents the emergency department via EMS from nursing facility after reported hemoglobin of 5. He states he has been fatigued over the last several days but denies any melena, hematochezia, hematemesis, nausea, vomiting, diarrhea, abdominal pain, chest pain, shortness of breath. He does appear to be a poor historian as he states he has never had an endoscopy or colonoscopy though records indicate he had an endoscopy in 2017 with evidence of esophageal varices. Pain Scale: 0 - Related Data Home Medications Medication Instructions Recorded Confirmed Aspirin 81 mg PO DAILY 04/28/15 08/28/18 Albuterol Sulfate [Proair Hfa] 2 puff IH Q4H PRN 01/25/17 08/28/18 Spironolactone [Aldactone] 25 mg PO TID 06/17/17 08/28/18 Lactulose 15 ml PO BID 08/30/17 08/28/18 Sennosides [Senokot] 8.6 mg PO DAILY 08/30/17 08/28/18 SitaGLIPtin [Januvia] 100 mg PO DAILY 08/30/17 08/28/18 Acetaminophen [Tylenol 650mg SUPP] 650 mg RC Q4HR PRN 10/04/17 08/28/18 traZODone [TraZODone] 300 mg PO HS 11/15/17 08/28/18 Furosemide [Lasix] 80 mg PO TID 03/30/18 08/28/18 Melatonin [Melatin] 6 mg PO HS 03/30/18 08/28/18 OXcarbazepine [Trileptal] 150 mg PO BID 03/30/18 08/28/18 Sertraline [Zoloft] 200 mg PO DAILY 03/30/18 08/28/18 Insulin DETEMIR [Levemir] 35 units SQ BID 06/06/18 08/28/18 Acetaminophen [Non-Aspirin] 650 mg PO Q4H 08/28/18 08/28/18 Hyoscyamine SL [Levsin Sl] 0.125 mg PO Q2H PRN 08/28/18 08/28/18 Promethazine HCl [Promethegan] 12.5 mg RC Q6H PRN 08/28/18 08/28/18 Promethazine [Phenergan] 25 mg PO Q6H PRN 08/28/18 08/28/18 hydrOXYzine pamoate [Hydroxyzine 100 mg PO HS 08/28/18 08/28/18 Pamoate] risperiDONE [Risperidone] 0.5 mg PO TID 08/28/18 08/28/18 Previous Rx's Medication Instructions Recorded Potassium Chloride 20 meq PO DAILY tab.er.prt 12/07/17 LORazepam [Ativan] 0.5 mg PO TID 5 Days #15 tablet 04/05/18 Allergies Allergy/AdvReac Type Severity Reaction Status Date / Time bupropion [From Wellbutrin] Allergy Difficulty Verified 03/30/18 12:42 Breathing codeine Allergy Difficulty Verified 03/30/18 12:42 Breathing Opioids-Meperidine and Allergy Difficulty Verified 03/30/18 12:42 Related Breathing [Opioids-Meperidine & Related] All systems ED: reviewed and negative except as stated. Review of Systems: As Per HPI Constitutional: Reports: weakness. Denies: fever, chills Eyes: Denies: eye pain, eye discharge, vision change Cardiovascular: Denies: chest pain, palpitations, dyspnea on exertion, edema, syncope Respiratory: Denies: cough, dyspnea, wheezes, hemoptysis, stridor Gastrointestinal: Denies: abdominal pain, nausea, vomiting, diarrhea, constipation, hematemesis, melena, hematochezia Genitourinary: Denies: urgency, dysuria, frequency, hematuria Musculoskeletal: Denies: back pain, neck pain, arthralgia, myalgia Integumentary: Denies: rash, abrasion, lesions Neurological: Reports: weakness. Denies: headache, numbness, paresthesias, confusion, abnormal gait, vertigo Psychiatric: Denies: anxiety, depression, suicidal thoughts, homicidal thoughts, auditory hallucinations, visual hallucinations Endocrine: Reports: fatigue. Denies: heat or cold intolerance, polydipsia, polyuria Hematological/Lymphatic: Denies: easy bleeding, easy bruising Past Medical History - Past Medical History Attestation: Yes The following information was validated with the patient. Source: patient, old records reviewed Medical history: Reports: arthritis, atrial fibrillation, CHF, COPD, diabetes, hyperlipidemia, hypertension, liver disease, renal disease Surgical history: Reports: orthopedic, other, pacemaker/AICD Psychiatric history: Reports: anxiety, depression - Social History Smoking Status: Former smoker Smokeless Tobacco Status: No Alcohol use: Reports: none Drug use: Reports: none Physical Exam - General Limitations: no limitations, other (Poor historian) General appearance: alert - Head Head exam: atraumatic, normocephalic - Eye Eye exam: Present: normal appearance, PERRL, other (Pallor). Absent: scleral icterus, conjunctival injection - ENT ENT exam: normal exam, normal oropharynx, mucous membranes moist - Neck Neck exam: Present: normal inspection, full ROM, trachea midline - Chest Chest inspection: Present: normal inspection, symmetric chest wall rise - Respiratory Respiratory exam: Present: normal lung sounds bilaterally. Absent: respiratory distress, wheezes, stridor - Cardiovascular Cardiovascular exam: Present: regular rate, normal rhythm, systolic murmur - Abdominal Exam Abdominal exam: Present: soft, Non-Tender, normal bowel sounds. Absent: distention, guarding, rebound, rigidity, ascites - Rectal Exam Snuff Grinder And Screener present during exam: Yes Rectal exam: Present: normal inspection, normal rectal tone, heme (+) stool. Absent: hemorrhoids, mass - Extremities Exam Extremities exam: Present: normal inspection - Back Exam Back exam: Present: normal inspection - Neurological Exam Neurological exam: Present: alert, oriented X3 - Psychiatric Psychiatric exam: Present: normal affect, normal mood - Skin Skin exam: Present: warm, dry, intact, pallor Course Course Narrative: Patient sent from [facility] with concern for anemia of unknown source. Upon presentation the patient states he is fatigued but has no other symptoms. His vital signs are stable on arrival. Records indicate he does have a history of GI bleed. While obtain labwork including CBC, BMP, EKG, type and screen, PT/INR and PTT. Pending initial hemoglobin will evaluate for need for transfusion. Likely admission. - Reevaluation(s) Reevaluation #1: Discussed case with hospitalist, Dr. Dai who accepts the patient for admission. Time: 19:35 Vital Signs Temperature 97.6 F 08/28/18 17:30 Pulse Rate 51 08/28/18 17:30 Respiratory Rate 14 08/28/18 17:30 Blood Pressure 129/60 08/28/18 17:30 O2 Sat by Pulse Oximetry 98 08/28/18 17:30 Temperature 97.6 F 08/28/18 23:35 Pulse Rate 53 08/28/18 23:35 Respiratory Rate 20 08/28/18 23:35 Blood Pressure 133/66 08/28/18 23:35 O2 Sat by Pulse Oximetry 95 08/28/18 23:26 Oxygen Delivery Oxygen Delivery Nasal Cannula Medical Decision Making - MDM Narrative Medical decision making narrative: 72-year-old male presenting with anemia, reported hemoglobin of 5. At this time the patient is fatigued and pale but otherwise asymptomatic. He has not a great historian and likely has underlying dementia. Does have a previous endoscopy from 2017 due to anemia which revealed esophageal varices. Otherwise laboratory work revealed anemia of 5.1. CT abdomen revealed no obvious source of bleeding. Stool occult negative. Likely the patient's source of bleeding is still gastrointestinal in origin. 2 units packed red blood cells given here in the emergency department. Discussed the case with Dr. Dai, hospitalist who agrees with plan for admission. Patient agrees with and understands course of treatment plan including plan for admission. All questions answered. - Lab Data Result diagrams: 08/28/18 17:58 08/28/18 17:58 Lab Results 08/28/18 08/28/18 08/28/18 Range/Units 17:58 17:58 17:58 WBC 10.7 (4.3-11.1) K/mcL RBC 2.30 L (4.19-5.50) M/mcL Hgb 5.1 L* (12.9-16.9) g/dL Hct 16.9 L (37.5-50.1) % MCV 73.5 L (83.0-100.0) fL MCH 22.2 L (28.0-33.3) pg MCHC 30.2 L (31.6-35.5) g/dL RDW 17.5 H (11.5-14.5) % Plt Count 432 H (140-400) K/mcL MPV 8.8 L (9.4-12.4) fL Immature Gran % 0.4 (0-4) % Seg Neutrophils % 81.7 % Lymphocytes % 4.8 % Monocytes % 10.9 % Eosinophils % 1.7 % Basophils % 0.5 % Neutrophils # 8.7 (1.6-8.9) K/mcL Lymphocytes # 0.5 L (0.6-4.6) K/mcL Monocytes # 1.2 (0.0-1.3) K/mcL Eosinophils # 0.2 (0.0-0.6) K/mcL Basophils # 0.1 (0.0-0.2) K/mcL Nucleated RBCs/100 WBC 0.3 H (0) /100 WBC Platelet Estimate Normal (Normal) Hypochromasia Present A (Not Present) Anisocytosis 1+ A (Not Present) PT (9.4-12.1) Seconds INR APTT (26.0-36.0) Seconds Sodium 132 L (136-145) mEq/L Potassium 4.0 (3.5-5.1) mEq/L Chloride 91 L (98-107) mEq/L Carbon Dioxide 31 H (23-29) mEq/L BUN 91 H (8-23) mg/dL Creatinine 1.55 H (0.70-1.30) mg/dL Est GFR ( Amer) 53 L (> 60) Est GFR (Non-Af Amer) 44 L (> 60) BUN/Creatinine Ratio 59 H (6-26) Glucose 224 H (70-105) mg/dL Calculated Osmolality 309 H (280-300) Lactic Acid (0.5-2.2) mmol/L Calcium 9.0 (8.6-10.3) mg/dL Total Bilirubin 0.4 (0.3-1.0) mg/dL AST 13 (13-39) Units/L ALT 15 (7-52) Units/L Alkaline Phosphatase 104 (34-104) Units/L Serum Total Protein 7.6 (6.4-8.9) g/dL Albumin 3.5 (3.5-5.7) g/dL Globulin 4.1 H (2.4-3.5) g/dL Albumin/Globulin Ratio 0.9 L (1.1-2.2) Stool Occult Bld Scrn (Negative) Blood Type O POSITIVE Antibody Screen NEGATIVE MTS Gel Crossmatch See Detail 08/28/18 08/28/18 08/28/18 Range/Units 17:58 18:03 18:40 WBC (4.3-11.1) K/mcL RBC (4.19-5.50) M/mcL Hgb (12.9-16.9) g/dL Hct (37.5-50.1) % MCV (83.0-100.0) fL MCH (28.0-33.3) pg MCHC (31.6-35.5) g/dL RDW (11.5-14.5) % Plt Count (140-400) K/mcL MPV (9.4-12.4) fL Immature Gran % (0-4) % Seg Neutrophils % % Lymphocytes % % Monocytes % % Eosinophils % % Basophils % % Neutrophils # (1.6-8.9) K/mcL Lymphocytes # (0.6-4.6) K/mcL Monocytes # (0.0-1.3) K/mcL Eosinophils # (0.0-0.6) K/mcL Basophils # (0.0-0.2) K/mcL Nucleated RBCs/100 WBC (0) /100 WBC Platelet Estimate (Normal) Hypochromasia (Not Present) Anisocytosis (Not Present) PT 13.3 H (9.4-12.1) Seconds INR 1.2 APTT 20.1 L (26.0-36.0) Seconds Sodium (136-145) mEq/L Potassium (3.5-5.1) mEq/L Chloride (98-107) mEq/L Carbon Dioxide (23-29) mEq/L BUN (8-23) mg/dL Creatinine (0.70-1.30) mg/dL Est GFR ( Amer) (> 60) Est GFR (Non-Af Amer) (> 60) BUN/Creatinine Ratio (6-26) Glucose (70-105) mg/dL Calculated Osmolality (280-300) Lactic Acid 1.5 (0.5-2.2) mmol/L Calcium (8.6-10.3) mg/dL Total Bilirubin (0.3-1.0) mg/dL AST (13-39) Units/L ALT (7-52) Units/L Alkaline Phosphatase (34-104) Units/L Serum Total Protein (6.4-8.9) g/dL Albumin (3.5-5.7) g/dL Globulin (2.4-3.5) g/dL Albumin/Globulin Ratio (1.1-2.2) Stool Occult Bld Scrn Negative (Negative) Blood Type Antibody Screen MTS Gel Crossmatch - Radiology Data Radiology results reviewed: Yes I reviewed the patient's radiology results. Chest X-Ray 08/28/18 17:31 IMPRESSION: Stable chest. Persistent loculated right pleural effusion with right basilar opacification and volume loss. D/ / Yann Evans MD / Yann Evans MD Interpreting Provider: Yann Evans MD Abdomen/Pelvis CT 08/28/18 17:34 IMPRESSION: 1. Loculated moderate right pleural effusion minimal improved since 03/30/2018. Stable round areas of atelectasis at the right lung base. 2. No acute findings in the abdomen or pelvis. Possible sludge in the gallbladder. 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 D/ / Linsey Weir MD / Linsey Weir MD Interpreting Provider: Linsey Weir MD - EKG Data EKG #1 EKG attestation: Yes I reviewed and interpreted this EKG. EKG results narrative: Ventricular paced rhythm of 51. No evidence of ST elevation. When compared with previous from 06/11/18 there are no significant changes. Attestation Statement - Attestation Attestation: I, Alvarado Zavala DO, examined this patient [id number] and my medical decision-making was reviewed with Dr. aKren Ku, Resident Physician. I agree with the documented findings, disposition and treatment plan as described except to the extent set forth below. Please see my progress notes for details.
[2018-08-28 19:10] LABS: INR 1.2; Prothrombin Time 13.3 Seconds (9.4-12.1)
[2018-08-28 19:15] LABS: Activated Partial Thrombo Time 20.1 Seconds (26.0-36.0)
--- NOTE | 2018-08-28 19:18 | Emergency Department Note ---
Disposition Clinical Impression: Anemia Disposition: Admitted As Inpatient Condition: Good Forms: ED Satisfaction Letter Time of Disposition: 19:37 General Adult HPI - General Chief complaint: ED Recheck/Abnormal Lab/Rx Stated complaint: low hemoglobin Time Seen by Provider: 08/28/18 17:25 Source: patient, EMS Limitations: no limitations, other (Poor historian) - History of Present Illness Pain Scale: 0 - Related Data Home Medications Medication Instructions Recorded Confirmed Aspirin 81 mg PO DAILY 04/28/15 06/06/18 Albuterol Sulfate [Proair Hfa] 2 puff IH Q4H PRN 01/25/17 06/06/18 Spironolactone [Aldactone] 25 mg PO TID 06/17/17 06/06/18 Lactulose 15 ml PO BID 08/30/17 06/06/18 Sennosides [Senokot] 8.6 mg PO DAILY 08/30/17 06/06/18 SitaGLIPtin [Januvia] 100 mg PO DAILY 08/30/17 06/06/18 Acetaminophen [Tylenol 650mg SUPP] 650 mg RC Q4HR PRN 10/04/17 06/06/18 traZODone [TraZODone] 300 mg PO HS 11/15/17 06/06/18 Furosemide [Lasix] 80 mg PO TID 03/30/18 06/06/18 Insulin LISPRO [HumaLOG] 2 - 14 units SQ TIDWM PRN 03/30/18 06/06/18 Melatonin [Melatin] 6 mg PO HS 03/30/18 06/06/18 OXcarbazepine [Trileptal] 150 mg PO BID 03/30/18 06/06/18 Omeprazole [PriLOSEC] 20 mg PO DAILY 03/30/18 06/06/18 Sertraline [Zoloft] 200 mg PO DAILY 03/30/18 06/06/18 risperiDONE [RisperDAL] 0.25 mg PO TID 03/30/18 06/06/18 Ferrous Sulfate [Iron] 325 mg PO BID 06/06/18 06/06/18 Insulin DETEMIR [Levemir] 35 units SQ BID 06/06/18 06/06/18 Previous Rx's Medication Instructions Recorded Potassium Chloride 20 meq PO DAILY tab.er.prt 12/07/17 LORazepam [Ativan] 0.5 mg PO TID 5 Days #15 tablet 04/05/18 Allergies Allergy/AdvReac Type Severity Reaction Status Date / Time bupropion [From Wellbutrin] Allergy Difficulty Verified 03/30/18 12:42 Breathing codeine Allergy Difficulty Verified 03/30/18 12:42 Breathing Opioids-Meperidine and Allergy Difficulty Verified 03/30/18 12:42 Related Breathing [Opioids-Meperidine & Related] Constitutional: Reports: weakness. Denies: fever, chills Eyes: Denies: eye pain, eye discharge, vision change Cardiovascular: Denies: chest pain, palpitations, dyspnea on exertion, edema, syncope Respiratory: Denies: cough, dyspnea, wheezes, hemoptysis, stridor Gastrointestinal: Denies: abdominal pain, nausea, vomiting, diarrhea, constipation, hematemesis, melena, hematochezia Genitourinary: Denies: urgency, dysuria, frequency, hematuria Musculoskeletal: Denies: back pain, neck pain, arthralgia, myalgia Integumentary: Denies: rash, abrasion, lesions Neurological: Reports: weakness. Denies: headache, numbness, paresthesias, confusion, abnormal gait, vertigo Psychiatric: Denies: anxiety, depression, suicidal thoughts, homicidal thoughts, auditory hallucinations, visual hallucinations Endocrine: Reports: fatigue. Denies: heat or cold intolerance, polydipsia, polyuria Hematological/Lymphatic: Denies: easy bleeding, easy bruising Past Medical History - Past Medical History Medical history: Reports: arthritis, atrial fibrillation, CHF, COPD, diabetes, hyperlipidemia, hypertension, liver disease, renal disease Surgical history: Reports: orthopedic, other, pacemaker/AICD Psychiatric history: Reports: anxiety, depression - Social History Smoking Status: Former smoker Smokeless Tobacco Status: No Alcohol use: Reports: none Drug use: Reports: none Physical Exam - General Limitations: no limitations, other (Poor historian) General appearance: alert Course Vital Signs Temperature 97.6 F 08/28/18 17:30 Pulse Rate 51 08/28/18 17:30 Respiratory Rate 14 08/28/18 17:30 Blood Pressure 129/60 08/28/18 17:30 O2 Sat by Pulse Oximetry 98 08/28/18 17:30 Temperature 97.6 F 08/28/18 17:30 Pulse Rate 51 08/28/18 17:30 Respiratory Rate 14 08/28/18 17:30 Blood Pressure 129/60 08/28/18 17:30 O2 Sat by Pulse Oximetry 98 08/28/18 17:30 Oxygen Delivery Oxygen Delivery Nasal Cannula Medical Decision Making - Lab Data Result diagrams: 08/28/18 17:58 08/28/18 17:58 Lab Results 08/28/18 08/28/1818 Range/Units 17:58 17:58 17:58 WBC 10.7 (4.3-11.1) K/mcL RBC 2.30 L (4.19-5.50) M/mcL Hgb 5.1 L* (12.9-16.9) g/dL Hct 16.9 L (37.5-50.1) % MCV 73.5 L (83.0-100.0) fL MCH 22.2 L (28.0-33.3) pg MCHC 30.2 L (31.6-35.5) g/dL RDW 17.5 H (11.5-14.5) % Plt Count 432 H (140-400) K/mcL MPV 8.8 L (9.4-12.4) fL Immature Gran % 0.4 (0-4) % Seg Neutrophils % 81.7 % Lymphocytes % 4.8 % Monocytes % 10.9 % Eosinophils % 1.7 % Basophils % 0.5 % Neutrophils # 8.7 (1.6-8.9) K/mcL Lymphocytes # 0.5 L (0.6-4.6) K/mcL Monocytes # 1.2 (0.0-1.3) K/mcL Eosinophils # 0.2 (0.0-0.6) K/mcL Basophils # 0.1 (0.0-0.2) K/mcL Nucleated RBCs/100 WBC 0.3 H (0) /100 WBC Platelet Estimate Normal (Normal) Hypochromasia Present A (Not Present) Anisocytosis 1+ A (Not Present) PT (9.4-12.1) Seconds INR APTT (26.0-36.0) Seconds Sodium 132 L (136-145) mEq/L Potassium 4.0 (3.5-5.1) mEq/L Chloride 91 L (98-107) mEq/L Carbon Dioxide 31 H (23-29) mEq/L BUN 91 H (8-23) mg/dL Creatinine 1.55 H (0.70-1.30) mg/dL Est GFR ( Amer) 53 L (> 60) Est GFR (Non-Af Amer) 44 L (> 60) BUN/Creatinine Ratio 59 H (6-26) Glucose 224 H (70-105) mg/dL Calculated Osmolality 309 H (280-300) Lactic Acid (0.5-2.2) mmol/L Calcium 9.0 (8.6-10.3) mg/dL Total Bilirubin 0.4 (0.3-1.0) mg/dL AST 13 (13-39) Units/L ALT 15 (7-52) Units/L Alkaline Phosphatase 104 (34-104) Units/L Serum Total Protein 7.6 (6.4-8.9) g/dL Albumin 3.5 (3.5-5.7) g/dL Globulin 4.1 H (2.4-3.5) g/dL Albumin/Globulin Ratio 0.9 L (1.1-2.2) Stool Occult Bld Scrn (Negative) Blood Type O POSITIVE Antibody Screen NEGATIVE MTS Gel Crossmatch See Detail 08/28/18 08/28/18 08/28/18 Range/Units 17:58 18:03 18:40 WBC (4.3-11.1) K/mcL RBC (4.19-5.50) M/mcL Hgb (12.9-16.9) g/dL Hct (37.5-50.1) % MCV (83.0-100.0) fL MCH (28.0-33.3) pg MCHC (31.6-35.5) g/dL RDW (11.5-14.5) % Plt Count (140-400) K/mcL MPV (9.4-12.4) fL Immature Gran % (0-4) % Seg Neutrophils % % Lymphocytes % % Monocytes % % Eosinophils % % Basophils % % Neutrophils # (1.6-8.9) K/mcL Lymphocytes # (0.6-4.6) K/mcL Monocytes # (0.0-1.3) K/mcL Eosinophils # (0.0-0.6) K/mcL Basophils # (0.0-0.2) K/mcL Nucleated RBCs/100 WBC (0) /100 WBC Platelet Estimate (Normal) Hypochromasia (Not Present) Anisocytosis (Not Present) PT 13.3 H (9.4-12.1) Seconds INR 1.2 APTT 20.1 L (26.0-36.0) Seconds Sodium (136-145) mEq/L Potassium (3.5-5.1) mEq/L Chloride (98-107) mEq/L Carbon Dioxide (23-29) mEq/L BUN (8-23) mg/dL Creatinine (0.70-1.30) mg/dL Est GFR ( Amer) (> 60) Est GFR (Non-Af Amer) (> 60) BUN/Creatinine Ratio (6-26) Glucose (70-105) mg/dL Calculated Osmolality (280-300) Lactic Acid 1.5 (0.5-2.2) mmol/L Calcium (8.6-10.3) mg/dL Total Bilirubin (0.3-1.0) mg/dL AST (13-39) Units/L ALT (7-52) Units/L Alkaline Phosphatase (34-104) Units/L Serum Total Protein (6.4-8.9) g/dL Albumin (3.5-5.7) g/dL Globulin (2.4-3.5) g/dL Albumin/Globulin Ratio (1.1-2.2) Stool Occult Bld Scrn Negative (Negative) Blood Type Antibody Screen MTS Gel Crossmatch Attestation Statement - Attestation Attestation: I, Alvarado Zavala DO, examined this patient [id number] and my medical decision-making was reviewed with Dr. Karen Ku, Resident Physician. I agree with the documented findings, disposition and treatment plan as described except to the extent set forth below. Please see my progress notes for details. 72-year-old male presents to the emergency room with an abnormal lab. Patient is from a long-term care facility. They rechecked his labs today for some unknown reason. Is found to have a hemoglobin of 5. Denies any falls trauma or injury. He denies being on any specific blood thinners at this point. He denies any dark colored stool or hematemesis or hematochezia. Currently is de nying chest pain, shortness headache, vision changes, nausea vomiting or diarrhea. No fevers no chills. Resting in the bed at this time no apparent distress. Vital signs in transport were stable. Patient is otherwise alert oriented and answering questions appropriately. Head is atraumatic. Pupils are equal round reactive. Extraocular muscles are intact. Conjunctiva appears to be normal and stable. Mild pallor noted. Mucous membranes are moist. Lungs are clear. Heart is regular. No murmur noted. Abdomen is soft nontender nondistended no guarding no rigidity and no peritoneal symptoms. Patient denies any other symptoms or complaints. He is acting appropriately. No acute neurol ogic deficits or issues at this time. Hemoccult testing will be completed. Repeat labs will be drawn including a type and screen. Chest x-ray and EKG will be resulted if need be. Patient was CT imaging of the abdomen secondary to the blood loss related description. Underlying etiology is unknown at this time. Review the patient's chart from previous has shown that he has had low hemoglobins in the past that have required transfusion. Patient will most likely require admission for transfusion and evaluation for bladder related source of this time. Physical exam is otherwise unremarkable. Patient has multiple medical issues but denied them on arrival. There is potentially some underlying dementia related symptoms. See detailed documentation the physical exam, medical intervention, medical decision-making and disposition in the resident physician's note. No critical care applied the patient's treatment course at this time. 1900 Patient has a hemoglobin of 5.1. He is asymptomatic here. His BUN is significantly elevated. He also has multiple lab derangements. Most of which appear to be chronic in nature. We will provide him at 2 units of blood here. Will monitor closely for fluid overload secondary to the blood transfusion. Patient will be admitted for continuation of care monitoring. Definitive management will be established in the inpatient setting. 35 minutes of critical care will be provided patient's treatment course secondary to multidisciplinary intervention medical management and transfusion. [address] Dai reviewed the patient's presentation symptoms medical intervention. They are with patient is scheduled to have transfusion of 2 units of blood here in the emergency department. 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 Has never had any acute variceal bleed. Patient has not had any hematemesis or abdominal pain here. CT abdomen is unremarkable. Patient will be admitted for continuation of care management. No other acute findings at this time. Patient will be monitored in emergency room until admission process is completed
[2018-08-28] MEDS ORDERED: Dextrose Gel 15 GM/37.5 ML TUBE PO PRN ×2 (20:48)
--- NOTE | 2018-08-28 22:06 | Internal Med History&Physical ---
Date of Encounter: 08/28/18 Time of Encounter: 22:04 Internal Medicine - H&P: HPI Chief complaint: low hgb Admitted From: Long-term Nursing Facility Plans for Post Hospital Care: Transfer [facility] History of present illness: Jaime Diaz is a 72-year-old man with a plethora of comorbidities including a history of heart failure, atrial fibrillation with pacemaker, CKD, diabetes and liver cirrhosis who was discharged from here about 2 months ago when he was managed for shortness of breath secondary to fluid overload. [facility] his labs [facility] and he was found to have a hemoglobin of 5. Falls, injury and trauma were denied. He is not noted to be on any anticoagulants. He denied any dark stool or hematemesis or hematochezia. No chest pain reported or shortness of breath. No abdominal pain. No fever or chills reported. He was seen resting comfortably in bed in no acute distress. His vitals remained stable and answer questions a ppropriately. Hemoccult testing done in the ER was negative. Hemoglobin here was 5.1 and 2 units of blood have been ordered and is now admitted for further care. On my assessment he is lying comfortably in bed, notably somnolent but in no acute distress. He denies any complaints at this time. Past Med Surg Social Fam HX - Past Medical History Medical history: arthritis, atrial fibrillation, CHF, COPD, diabetes, hy perlipidemia, hypertension, liver disease, renal disease Additional medical history: ACSITES Psychiatric history: anxiety, depression - Past Surgical History Surgical History: orthopedic, other, pacemaker/AICD Additional surgical history: LEFT BROKEN FEMUR REPAIR. - Social History Smoking Status: Former smoker Smokeless Tobacco Status: No Alcohol use: none Drug use: none - Family History Father Living Status: Hx Family Cardiac Disorders: Yes (Triple Bypass) Hx Family Endocrine Disorder: Yes (DM) Mother Family Member Ethnicity: Non- Living Status: Internal Medicine - H&P: Meds Aspirin 81 mg PO DAILY 04/28/15 [History] Albuterol Sulfate [Proair Hfa] 2 puff IH Q4H PRN 01/25/17 [History] Spironolactone [Aldactone] 25 mg PO TID 06/17/17 [History] Lactulose 15 ml PO BID 08/30/17 [History] Sennosides [Senokot] 8.6 mg PO DAILY 08/30/17 [History] SitaGLIPtin [Januvia] 100 mg PO DAILY 08/30/17 [History] Acetaminophen [Tylenol 650mg SUPP] 650 mg RC Q4HR PRN 10/04/17 [History] traZODone [TraZODone] 300 mg PO HS 11/15/17 [History] Potassium Chloride 20 meq PO DAILY tab.er.prt 12/07/17 [Rx] Furosemide [Lasix] 80 mg PO TID 03/30/18 [History] Melatonin [Melatin] 6 mg PO HS 03/30/18 [History] OXcarbazepine [Trileptal] 150 mg PO BID 03/30/18 [History] Sertraline [Zoloft] 200 mg PO DAILY 03/30/18 [History] LORazepam [Ativan] 0.5 mg PO TID 5 Days #15 tablet 04/05/18 [Rx] Insulin DETEMIR [Levemir] 35 units SQ BID 06/06/18 [History] Acetaminophen [Non-Aspirin] 650 mg PO Q4H 08/28/18 [History] Hyoscyamine SL [Levsin Sl] 0.125 mg PO Q2H PRN 08/28/18 [History] Promethazine HCl [Promethegan] 12.5 mg RC Q6H PRN 08/28/18 [History] Promethazine [Phenergan] 25 mg PO Q6H PRN 08/28/18 [History] hydrOXYzine pamoate [Hydroxyzine Pamoate] 100 mg PO HS 08/28/18 [History] risperiDONE [Risperidone] 0.5 mg PO TID 08/28/18 [History] Allergy/AdvReac Type Severity Reaction Status Date / Time bupropion [From Wellbutrin] Allergy Difficulty Verified 03/30/18 12:42 Breathing codeine Allergy Difficulty Verified 03/30/18 12:42 Breathing Opioids-Meperidine and Allergy Difficulty Verified 03/30/18 12:42 Related Breathing [Opioids-Meperidine & Related] All Systems PM: A 10-system review of systems was performed and is negative for pertinent findings except as documented above in the HPI. Family history reviewed and found noncontributory. - Constitutional Vitals: Temp Pulse Resp BP Pulse Ox 97.6 F 64 15 134/60 96 08/28/18 21:30 08/28/18 21:30 08/28/18 21:30 08/28/18 21:30 08/28/18 21:30 Exam: Vitals: Reviewed General: Elderly obese male in no acute distress lying in bed. Skin: warm and supple. HEENT: Moist mucous membranes. + conjunctivae pallor. Neck: No lymphadenopathy. No JVD. No carotid bruits. No palpable thyroid. Chest: Diminished thoracic expansion. Reduced breath sounds. Heart: Irregularly irregular. Abdomen: soft and non-tender to palpation. No peritoneal reaction. Extremities: No clubbing, cyanosis. No calf tenderness. Normal distal pulses. Neurological: Awake, alert and oriented to person but not place and time. No fo funmilayo deficits. Psych: Affect appropriate. Internal Med - H&P Results - Labs CBC & Chem 7: 08/28/18 17:58 08/28/18 17:58 Labs: Short CBC 08/28/18 Range/Units 17:58 WBC 10.7 (4.3-11.1) K/mcL Hgb 5.1 L* (12.9-16.9) g/dL Hct 16.9 L (37.5-50.1) % Plt Count 432 H (140-400) K/mcL Neutrophils # 8.7 (1.6-8.9) K/mcL BMP 08/28/18 17:58 Sodium 132 L Potassium 4.0 Chloride 91 L Carbon Dioxide 31 H BUN 91 H Creatinine 1.55 H Glucose 224 H Calcium 9.0 Liver Function 08/28/18 Range/Units 17:58 Total Bilirubin 0.4 (0.3-1.0) mg/dL AST 13 (13-39) Units/L ALT 15 (7-52) Units/L Alkaline Phosphatase 104 (34-104) Units/L Albumin 3.5 (3.5-5.7) g/dL - Impressions ITS Impressions Chest X-Ray 08/28/18 17:31 IMPRESSION: Stable chest. Persistent loculated right pleural effusion with right basilar opacification and volume loss. D/ / Yann Evans MD / Yann Evans MD Interpreting Provider: Yann Evans MD Abdomen/Pelvis CT 08/28/18 17:34 IMPRESSION: 1. Loculated moderate right pleural effusion minimal improved since 03/30/2018. Stable round areas of atelectasis at the right lung base. 2. No acute findings in the abdomen or pelvis. Possible sludge in the gallbladder. 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 D/ / Linsey Weir MD / Linsey Weir MD Interpreting Provider: Linsey Weir MD - Assessment and plan (1) Anemia Current Visit: Yes Status: Chronic Assessment and plan: Likely secondary to blood loss. Current fecal occult is negative. Will repeat. GI consultation should be considered for endoscopy given his history. Will transfuse 2U pRBC and repeat H/H. Currently hemodynamically stable at this time with no overt source of bleeding. Qualifiers: Anemia type: unspecified type Qualified Code(s): D64.9 - Anemia, uns pecified (2) CKD (chronic kidney disease) Current Visit: Yes Status: Acute Assessment and plan: Stable. Medications to be renally adjusted. Qualifiers: Chronic kidney disease stage: stage 3 (moderate) Qualified Code(s): N18.3 - Chronic kidney disease, stage 3 (moderate) (3) Cardiomyopathy Current Visit: No Status: Acute Assessment and plan: EF 45-50% on last echo. Clinically appears well compensated. Home medications to be resumed once confirmed. Qualifiers: Cardiomyopathy type: unspecified Qualified Code(s): I42.9 - Cardiomyopathy, unspecified (4) A-fib Current Visit: Yes Status: Chronic Assessment and plan: Monitor on telemetry. No anticoagulants. Rate control as needed. Qualifiers: Atrial fibrillation type: unspecified Qualified Code(s): I48.91 - Unspecified atrial fibrillation (5) COPD (chronic obstructive pulmonary disease) Current Visit: Yes Status: Chronic Assessment and plan: Currently asymptomatic and without signs of exacerbation. Qualifiers: COPD type: COPD with acute exacerbation Qualified Code(s): J44.1 - Chronic obstructive pulmonary disease with (acute) exacerbation (6) Cirrhosis Current Visit: Yes Status: Chronic Assessment and plan: No signs of fluid overload at this time. Qualifiers: Hepatic cirrhosis type: unspecified hepatic cirrhosis Ascites presence: with ascites Qualified Code(s): K74.60 - Unspecified cirrhosis of liver; R18.8 - Other ascites (7) Diabetes mellitus Current Visit: Yes Status: Chronic Assessment and plan: Will place on insulin sliding scale for now. 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 Home meds to be resumed once confirmed. (9) DVT prophylaxis Current Visit: Yes Status: Acute Assessment and plan: Will place on IPC. - Time Spent With Patient Total time spent is greater than 50% in coordination of care (as documented) at patient's floor/unit and/or counseling patient: Greater than 35 minutes
[2018-08-28] MEDS ORDERED: 0.9 % Sodium Chloride 250 ML ONE (22:32)
[2018-08-29] MEDS: Insulin LISPRO 300 UNITS/3 ML VIAL SQ SCH ×5 (00:49→23:58)
[2018-08-29] MEDS ORDERED: 0.9 % Sodium Chloride 250 ML ONE (02:47)
[2018-08-29] MEDS: 0.9 % Sodium Chloride 1,000 ML IVC SCH (08:51)
[2018-08-29] MEDS ORDERED: Acetaminophen 325 MG TABLET PO PRN (08:52)
[2018-08-29] MEDS ORDERED: Hyoscyamine SL 0.125 MG TAB.SUBL PO PRN (08:52)
[2018-08-29] MEDS ORDERED: Acetaminophen 650 MG RECTAL SUPP RC PRN (08:52)
[2018-08-29 09:29] LABS: Basophils # 0.1 K/mcL (0.0-0.2); Basophils % 0.5 %; Eosinophils # 0.3 K/mcL (0.0-0.6); Eosinophils % 2.8 %; Hematocrit 22.9 % (37.5-50.1); Immature Granulocytes % 0.4 % (0-4); Lymphocytes # 0.4 K/mcL (0.6-4.6); Lymphocytes % 4.4 %; Mean Corpuscular HGB Conc 30.6 g/dL (31.6-35.5); Mean Corpuscular Hemoglobin 23.6 pg (28.0-33.3); Mean Corpuscular Volume 77.1 fL (83.0-100.0); Mean Platelet Volume 8.7 fL (9.4-12.4); Monocytes # 1.3 K/mcL (0.0-1.3); Neutrophils # 7.3 K/mcL (1.6-8.9); Nucleated Red Blood Cells 0.3 /100 WBC (0); Platelet Count 409 K/mcL (140-400); Red Blood Count 2.97 M/mcL (4.19-5.50); Red Cell Distribution Width 17.3 % (11.5-14.5); Segmented Neutrophils % 77.9 %
[2018-08-29 09:50] LABS: % Iron Saturation 4 % (20-55); BUN/Creatinine Ratio 63 (6-26); Blood Urea Nitrogen 78 mg/dL (8-23); Calcium 8.8 mg/dL (8.6-10.3); Carbon Dioxide 28 mEq/L (23-29); Chloride 96 mEq/L (98-107); Glucose 120 mg/dL (70-105); Iron 19 mcg/dL (65-175); Osmolality,Calculated 307 (280-300); Potassium 3.3 mEq/L (3.5-5.1); Sodium 136 mEq/L (136-145); Transferrin 304 mg/dL (203-362); eGFR For Non-African Americans 58 (> 60)
--- NOTE | 2018-08-29 10:48 | Gastroenterology Consult Note ---
Date of Encounter: 08/29/18 Time of Encounter: 09:45 - Assessment and plan (1) Symptomatic anemia Current Visit: Yes Status: Acute Assessment and plan: symptomatic anemia, hemoglobin 5.1 on arrival Patient is received 2 units PRBC, hemoglobin increased to 7.0 EGD 05/06/17 demonstrated esophageal ulcers Colonoscopy 04/28/17 and 01/27/17 demonstrated multiple polyps which required resection The patient does have atrial fibrillation but is not currently anticoagulated Also has a history of cirrhosis but no evident history of esophageal varices at this time Continue to monitor CBCand transfuse PRBC as needed Plan for EGD today to rule out esophagitis, gastritis, duodenitis, MW tear, AVM, Varices Keep NPO (2) UGI bleed Current Visit: Yes Status: Acute Assessment and plan: As above (3) Cirrhosis Current Visit: Yes Status: Chronic Assessment and plan: Mild cirrhosis as demonstrated on liver ultrasound on 04/25/2017 Patient has negative hepatitis panel in the past, AFP has been normal Qualifiers: Hepatic cirrhosis type: unspecified hepatic cirrhosis Ascites presence: with ascites Qualified Code(s): K74.60 - Unspecified cirrhosis of liver; R18.8 - Other ascites - Time Spent With Patient Total time spent is greater than 50% in coordination of care (as documented) at patient's floor/unit and/or counseling patient: GI History of Present Illness - Data of Consult Patient: known to practice within the last 3 years Consult date: 08/29/18 Requesting Physician: Arcadio Iraheta - Consult Narrative Reason for consult: Anemia History of present illness: Mr. Diaz is a 72 year old male with history of heart failure with reduced ejec tion fraction, A. fib not on anticoagulation, CKD, diabetes mellitus, cirrhosis who presents to the ED from [facility] for low hemoglobin on routine screening. The patient apparently had labs drawn which demonstrated a hemoglobin of 5.1 and was sent to the emergency room. It should be noted that the patient was recently admitted to the hospital about 2 months ago for workup and treatment of shortness of breath.on this admission, the patient does admit to weakness, fatigue and shortness of breath which has been going on for approximately one week, however he has no associated symptoms. He denies any nausea, vomiting, abdominal pain, and he denies any melena or hematochezia to his knowledge. He a lso denies any urinary symptoms or blood in his urine to his knowledge. Overall, he says that he feels generally normal. Of note, the patient has had multiple EGDs and colonoscopies over the past year and a half and he is been noted to have multiple polyps which have required resection as well as nonbleeding esophageal ulcers on EGD on 05/06/17. In the ED, the patient was found to have a hemoglobin of 5.1 for which she received 2 units of packed red blood cells which did raise his hemoglobin to 7.0. He did have CT of his abdomen and pelvis which overall did not demonstrate any acute abdominal findings. Colonoscopy: 04/28/17 EGD: 05/06/17 Past Med Surg Social Fam HX - Past Medical History Medical history: arthritis, atrial fibrillation, CHF, COPD, diabetes, hyperlipidemia, hypertension, liver disease, renal disease Additional medical history: ACSITES Psychiatric history: anxiety, depression - Past Surgical History Surgical History: orthopedic, other, pacemaker/AICD Additional surgical history: LEFT BROKEN FEMUR REPAIR. - Social History Smoking Status: Former smoker Smokeless Tobacco Status: No Alcohol use: none Drug use: none - Family History Father Living Status: Hx Family Cardiac Disorders: Yes (Triple Bypass) Hx Family Endocrine Disorder: Yes (DM) Mother Family Member Ethnicity: Non- Living Status: Review of Systems: Constitutional: Denies fevers, chills, weight loss, admits to generalized fatigue. Head/Neck: Denies [place], neck stiffness EENT: Denies vision changes/blurriness, rhinorrhea, congestion, sore throat CVS: Denies chest pain, palpitations, [place], orthopnea, edema, PND Pulm: Denies cough, sputum, hemoptysis, wheezing. admits to shortness of breath GI: Denies abdominal pain, nausea, vomiting, diarrhea, constipation, melena, hematemasis : Denies dysuria, increased frequency, urgency, hematuria Heme: Denies ease of bleeding or bruising MSK: Denies joint pain, limited ROM Skin: Denies rashes, ulcers, color changes Neuro: Denies BR[place], paresthesias, focal deficits, ataxia - Constitutional Vitals: Temp Pulse Resp BP Pulse Ox 97.5 F L 50 15 119/87 98 08/29/18 06:38 08/29/18 06:38 12/18/18 06:38 08/29/18 06:38 08/29/18 06:38 Exam: Gen: Vitals noted. No acute distress. Eyes: anicteric sclerae, moist conjunctivae; no lid-lag; Pupils equal and reactive to light HENT: Atraumatic; oropharynx clear with moist mucous membranes and no mucosal ulcerations; normal hard and soft palate Neck: Trachea midline; supple, no thyromegaly or lymphadenopathy Cardiac: RRR, no murmur, +S1/S2 Pulmonary: CTA bilaterally, no wheezes, rales or rhonchi, equal chest expansion Abdomen: moderately distended, nontender, no guarding. No masses or hep atosplenomegaly MSK: ROM intact, no joint swelling noted Extremities: 1+ BLE edema, nontender calf, no cyanosis or clubbing, eevidence of stasis Skin: Normal temperature, turgor and texture; no rash, ulcers or subcutaneous nodules Neuro: moves all extremities, no focal deficits. Psych: Appropriate mood and behavior. A&Ox3 but difficult to arouse, the patient is exceptionally somnolent Results - Labs CBC & Chem 7: 08/29/18 08:54 08/29/18 08:54 Labs: Last Result Calcium 8.8 mg/dL (8.6-10.3) 08/29/18 08:54 Iron 19 mcg/dL (65-175) L 08/29/18 08:54 % Saturation 4 % (20-55) L 08/29/18 08:54 Transferrin 304 mg/dL (203-362) 08/29/18 08:54 Entire Visit Hgb 7.0 g/dL (12.9-16.9) L D 08/29/18 08:54 Hct 22.9 % (37.5-50.1) L 08/29/18 08:54 PT 13.3 Seconds (9.4-12.1) H 08/28/18 17:58 Total Bilirubin 0.4 mg/dL (0.3-1.0) 08/28/18 17:58 AST 13 Units/L (13-39) 18 17:58 ALT 15 Units/L (7-52) 08/28/18 17:58 - ABG ABG results: PT/INR, D-dimer PT 13.3 Seconds (9.4-12.1) H 08/28/18 17:58 - Impressions Impressions Chest X-Ray 08/28/18 17:31 IMPRESSION: Stable chest. Persistent loculated right pleural effusion with right basilar opacification and volume loss. D/ / Yann vEans MD / Yann Evans MD Interpreting Provider: Yann Evans MD Abdomen/Pelvis CT 08/28/18 17:34 IMPRESSION: 1. Loculated moderate right pleural effusion minimal improved since 03/30/2018. Stable round areas of atelectasis at the right lung base. 2. No acute findings in the abdomen or pelvis. Possible sludge in the gallbladder. 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 D/ / Linsey Weir MD / Linsey Weir MD Interpreting Provider: Linsey Weir MD Consult Discharge Plan - Plan Referrals: Jhonny Naik MD [Primary Care Provider] -
[2018-08-29] MEDS: Spironolactone 25 MG TABLET PO SCH ×3 (10:55→21:05)
[2018-08-29] MEDS: Sennosides 8.6 MG TABLET PO SCH (10:55)
[2018-08-29] MEDS: risperiDONE 0.25 MG TABLET PO SCH ×3 (10:55→21:04)
[2018-08-29] MEDS: Aspirin 81 MG TAB.CHEW PO SCH (10:55)
[2018-08-29] MEDS: Lactulose Oral Soln 20 GM/30 ML UDC PO SCH ×2 (10:55→21:04)
[2018-08-29] MEDS: OXcarbazepine 150 MG TABLET PO SCH ×2 (10:55→21:04)
[2018-08-29] MEDS: *HR* SitaGLIPtin 100 MG TABLET PO SCH (10:55)
[2018-08-29] MEDS: *HR* LORazepam 0.5 MG TABLET PO SCH ×3 (10:55→21:04)
[2018-08-29] MEDS: Furosemide 40 MG TABLET PO SCH ×2 (10:57→16:11)
[2018-08-29] MEDS ORDERED: SODIUM CHLORIDE/NAHCO3/KCL/PEG 4,000 ML SOLN.RECON PO ONE (13:54)
--- NOTE | 2018-08-29 17:47 | Electrocardiograph Report ---
[address] [address] Test Date: 2018-08-28 Pat Name: Jaime Diaz Department: EXAM10 Room: 3A15 Gender: M [employer]ending [employer] Feeder: : 1945 Requested By: Karen Ku Order Number: [id number] Reading MD: Nenita Piña Measurements Intervals [place] Rate: 51 P: 60 ND: 39 QRS: -81 QRSD: 203 T: 101 QT: 641 QTc: 591 Interpretive Statements Ventricular-paced rhythm No further analysis attempted due to paced rhythm Electronically Signed On 08-29-2018 17:45:24 EST by Nenita Piña
[2018-08-29] MEDS: Melatonin 3 MG TABLET PO SCH (21:04)
[2018-08-29] MEDS: hydrOXYzine pamoate 25 MG CAPSULE PO SCH (21:04)
[2018-08-29] MEDS: traZODone 50 MG TABLET PO SCH (21:05)
[2018-08-29] MEDS: Insulin DETEMIR 100 UNIT/ML X5UNITS SQ SCH (21:15)
[2018-08-29] MEDS: Pantoprazole 40 MG VIAL IVP SCH (21:30)
--- NOTE | 2018-08-29 22:45 | Internal Med Progress Note ---
Hospitalist Progress Note - Encounter Date of Encounter: 08/29/18 Time of Encounter: 19:00 - Subjective Interval History: SUBJECTIVE: The patient feels weak. He does recognize his son by name. He follows simple commands. Denies abdominal pain, nausea and vomiting. He makes good amounts of urine. He had clots in his urine on a couple occasions recently. OBJECTIVE: Skin: Free of rash and discoloration. ENMT: Oral/pharyngeal mucosa is normal in appearance. Eyes: Sclera is white. There is no discharge from eyes. Respiratory: Normal breath sounds; no crackles or wheezes. CV: Heart is regular; no gallop or murmur. GI: Abdomen is obese. It is soft and not tender. There is no palpable mass or visceromegaly. Neuro: There is no focal deficits. ADDITIONAL DATA: His hemoglobin is 7.0; after transfusion of 2 units of packed blood cells (5.1 at admission). He has normal WBC/platelet count. Creatinine is 1.23; 1.55 at admission. Potassium is 3.3; 4.0 at admission. ASSESSMENT AND PLAN: Severe anemia. It is microcytic. GI service is consulted. They want to do EGD tomorrow. We transfused him with 2 units of packed red blood cells. He will get supplemental iron at discharge. Acute kidney injury. Resolved after giving him packed red blood cells and IV fluids. Atrial fibrillation. Rate controlled. He is not a candidate for any antic oagulation at this time. COPD. Stable. He will get supplemental oxygen, if needed. Liver cirrhosis. Compensated. He gets a Protonix. Type 2 diabetes mellitus. To continue when necessary Humalog. Hypertension. Under control. No need for antihypertensives at this time. - Exam Vitals: Temp Pulse Resp BP Pulse Ox 97.5 F L 51 13 150/70 95 08/29/18 19:18 08/29/18 19:18 08/29/18 19:18 08/29/18 19:18 08/29/18 21:33 Exam: xx - Assessment and Plan (1) Anemia Current Visit: Yes Status: Chronic (2) CHERRIE (acute kidney injury) Current Visit: Yes Status: Resolved (3) A-fib Current Visit: Yes Status: Chronic (4) COPD (chronic obstructive pulmonary disease) Current Visit: Yes Status: Chronic (5) Cirrhosis Current Visit: Yes Status: Chronic (6) Diabetes mellitus Current Visit: Yes Status: Chronic (7) Essential hypertension Current Visit: Yes Status: Chronic - Time Spent with Patient Total time spent is greater than 50% in coordination of care (as documented) at patient's floor/unit and/or counseling patient: Internal Medicine: Result - Labs CBC & Chem 7: 08/29/18 08:54 08/29/18 08:54 Labs: Short CBC 08/29/18 Range/Units 08:54 WBC 9.4 (4.3-11.1) K/mcL Hgb 7.0 L D (12.9-16.9) g/dL Hct 22.9 L (37.5-50.1) % Plt Count 409 H (140-400) K/mcL Neutrophils # 7.3 (1.6-8.9) K/mcL BMP 08/29/18 08:54 Sodium 136 Potassium 3.3 L Chloride 96 L Carbon Dioxide 28 BUN 78 H Creatinine 1.23 Glucose 120 H Calcium 8.8 - ABG Interpretation ABG results: PT/INR, D-dimer PT 13.3 Seconds (9.4-12.1) H 08/28/18 17:58 Consult Discharge Plan - Plan Referrals: Jhonny Naik MD [Primary Care Provider] - (1) Anemia Qualifiers: Anemia type: unspecified type Qualified Code(s): D64.9 - Anemia, unspecified (3) A-fib Qualifiers: Atrial fibrillation type: unspecified Qualified Code(s): I48.91 - Unspecified atrial fibrillation (4) COPD (chronic obstructive pulmonary disease) Qualifiers: COPD type: COPD with acute exacerbation Qualified Code(s): J44.1 - Chronic obstructive pulmonary disease with (acute) exacerbation (5) Cirrhosis Qualifiers: Hepatic cirrhosis type: unspecified hepatic cirrhosis Ascites presence: with ascites Qualified Code(s): K74.60 - Unspecified cirrhosis of liver; R18.8 - Other ascites (6) Diabetes mellitus Qualifiers: Diabetes mellitus type: type 2 Diabetes mellitus joint terminal attack controller insulin use: with half-way use Diabetes mellitus complication status: with circulatory complication Diabetes mellitus complication detail: with other circulatory complications Qualified Code(s): E11.59 - Type 2 diabetes mellitus with other circulatory complications; Z79.4 - shelter (current) use of insulin; Z79.4 - oil heaterman (current) use of insulin; Z79.4 - oil heaterman (current) use of insulin; Z79.4 - oil heaterman (current) use of insulin
[2018-08-30] MEDS: 0.9 % Sodium Chloride 1,000 ML IVC SCH ×2 (05:24→22:05)
[2018-08-30] MEDS: Pantoprazole 40 MG VIAL IVP SCH ×2 (05:25→18:02)
[2018-08-30] MEDS: Insulin LISPRO 300 UNITS/3 ML VIAL SQ SCH ×3 (05:25→18:09)
[2018-08-30 07:58] LABS: Basophils # 0.1 K/mcL (0.0-0.2); Basophils % 0.6 %; Eosinophils # 0.3 K/mcL (0.0-0.6); Eosinophils % 3.2 %; Hematocrit 24.2 % (37.5-50.1); Hemoglobin 7.1 g/dL (12.9-16.9); Immature Granulocytes % 0.4 % (0-4); Immature Reticulocyte % 28.8 % (11.0-38.0); Lymphocytes # 0.5 K/mcL (0.6-4.6); Lymphocytes % 5.8 %; Mean Corpuscular HGB Conc 29.3 g/dL (31.6-35.5); Mean Corpuscular Hemoglobin 23.3 pg (28.0-33.3); Mean Corpuscular Volume 79.3 fL (83.0-100.0); Mean Platelet Volume 9.2 fL (9.4-12.4); Monocytes # 1.2 K/mcL (0.0-1.3); Monocytes % 12.8 %; Nucleated Red Blood Cells 0.2 /100 WBC (0); Platelet Count 433 K/mcL (140-400); Red Blood Count 3.05 M/mcL (4.19-5.50); Red Cell Distribution Width 17.5 % (11.5-14.5); Retculocyte # 0.13 M/mcL (0.05-0.10); Reticulocyte % 4.2 % (1.6-2.8); Segmented Neutrophils % 77.2 %
[2018-08-30 08:12] LABS: BUN/Creatinine Ratio 51 (6-26); Blood Urea Nitrogen 62 mg/dL (8-23); Calcium 8.5 mg/dL (8.6-10.3); Carbon Dioxide 33 mEq/L (23-29); Chloride 101 mEq/L (98-107); Glucose 106 mg/dL (70-105); Osmolality,Calculated 308 (280-300); Potassium 3.3 mEq/L (3.5-5.1); Sodium 140 mEq/L (136-145); eGFR For Non-African Americans 59 (> 60)
[2018-08-30] MEDS: Spironolactone 25 MG TABLET PO SCH ×3 (08:21→22:06)
[2018-08-30] MEDS: OXcarbazepine 150 MG TABLET PO SCH ×2 (08:21→22:07)
[2018-08-30] MEDS: risperiDONE 0.25 MG TABLET PO SCH ×3 (08:21→22:07)
[2018-08-30] MEDS: Lactulose Oral Soln 20 GM/30 ML UDC PO SCH ×2 (08:21→22:07)
[2018-08-30] MEDS: *HR* LORazepam 0.5 MG TABLET PO SCH ×3 (08:23→22:07)
[2018-08-30] MEDS: *HR* SitaGLIPtin 100 MG TABLET PO SCH (08:23)
[2018-08-30] MEDS: Aspirin 81 MG TAB.CHEW PO SCH (08:23)
[2018-08-30] MEDS: Sennosides 8.6 MG TABLET PO SCH (08:23)
[2018-08-30] MEDS: Furosemide 40 MG TABLET PO SCH ×2 (08:23→18:02)
[2018-08-30 08:38] LABS: Folate 16.1 ng/mL (3.0-16.0)
[2018-08-30] MEDS ORDERED: Propofol 500 MG/50 ML INFUS..BTL ONE (12:35)
[2018-08-30] MEDS ORDERED: Lidocaine -MPF 2% 2 ML VIAL ONE (12:36)
--- NOTE | 2018-08-30 12:47 | Anesthesia Evaluation PreOp ---
Date of Encounter: 08/30/18 Time of Encounter: 13:00 - Past History Planned Operation: Double Endo Cardiac History: CHF, HTN, Hyperlipidemia, Arrhythmia (AFib), Pacemaker/ICD, Other (Severe Anemia...transfused 2 units PRBC) Pulmonary History: COPD CUSTOMER RETENTION SPECIALIST History: Denies Any Significant HX Other Medical History: Hepatic (Hepatic Cirrhosis), Renal (CKD) Anesthesia History: No Prior Anesthetic Complications Alcohol Use: none Drug use: none Medications and Allergies Aspirin 81 mg PO DAILY 04/28/15 [History] Albuterol Sulfate [Proair Hfa] 2 puff IH Q4H PRN 01/25/17 [History] Spironolactone [Aldactone] 25 mg PO TID 06/17/17 [History] Lactulose 15 ml PO BID 08/30/17 [History] Sennosides [Senokot] 8.6 mg PO DAILY 08/30/17 [History] SitaGLIPtin [Januvia] 100 mg PO DAILY 08/30/17 [History] Acetaminophen [Tylenol 650mg SUPP] 650 mg RC Q4HR PRN 10/04/17 [History] traZODone [TraZODone] 300 mg PO HS 11/15/17 [History] Potassium Chloride 20 meq PO DAILY tab.er.prt 12/07/17 [Rx] Furosemide [Lasix] 80 mg PO TID 03/30/18 [History] Melatonin [Melatin] 6 mg PO HS 03/30/18 [History] OXcarbazepine [Trileptal] 150 mg PO BID 03/30/18 [History] Sertraline [Zoloft] 200 mg PO DAILY 03/30/18 [History] LORazepam [Ativan] 0.5 mg PO TID 5 Days #15 tablet 04/05/18 [Rx] Insulin DETEMIR [Levemir] 35 units SQ BID 06/06/18 [History] Acetaminophen [Non-Aspirin] 650 mg PO Q4H 08/28/18 [History] Hyoscyamine SL [Levsin Sl] 0.125 mg PO Q2H PRN 08/28/18 [History] Promethazine HCl [Promethegan] 12.5 mg RC Q6H PRN 08/28/18 [History] Promethazine [Phenergan] 25 mg PO Q6H PRN 08/28/18 [History] hydrOXYzine pamoate [Hydroxyzine Pamoate] 100 mg PO HS 08/28/18 [History] risperiDONE [Risperidone] 0.5 mg PO TID 08/28/18 [History] Allergy/AdvReac Type Severity Reaction Status Date / Time bupropion [From Wellbutrin] Allergy Difficulty Verified 03/30/18 12:42 Breathing codeine Allergy Difficulty Verified 03/30/18 12:42 Breathing Opioids-Meperidine and Allergy Difficulty Verified 03/30/18 12:42 Related Breathing [Opioids-Meperidine & Related] - Meds/Allergy Pre-op Review Medications Reviewed: Yes Allergies Reviewed: Yes Beta Blockers on Current Med List: No Anesthesia Results - Labs 08/30/18 06:11 08/30/18 06:11 Laboratory Tests 08/28/18 08/30/18 08/30/18 17:58 06:11 06:11 Hgb 7.1 L Hct 24.2 L Plt Count 433 H PT 13.3 H INR 1.2 APTT 20.1 L Sodium 140 Potassium 3.3 L BUN 62 H Creatinine 1.21 - Imaging EKG: report reviewed (Ventricular Pacemaker) Additional studies: ECHO 2018 EF 50%, moderate Anesthesia Exam O2 Sat Weight 115.2 kg O2 Sat by Pulse Oximetry 95 O2 Sat by Pulse Oximetry 97 O2 Sat by Pulse Oximetry 96 O2 Sat by Pulse Oximetry 97 O2 Sat by Pulse Oximetry 97 O2 Sat by Pulse Oximetry 95 O2 Sat by Pulse Oximetry 95 O2 Sat by Pulse Oximetry 99 Vital Signs Temp Pulse Resp BP Pulse Ox 97.6 F 51 14 129/60 98 08/28/18 17:30 08/28/18 17:30 08/28/18 17:30 08/28/18 17:30 08/28/18 17:30 Height: 6'0 Weight: 253 lbs NPO (# of Hours): MN Pain Scale: 0 - HEENT Pupil (Motor): Pupils equal, EOMI Mallampati: III Oral Opening: Less than or equal to 3 - CUSTOMER RETENTION SPECIALIST LOC: Oriented CUSTOMER RETENTION SPECIALIST Motor: Normal RUE, Normal LUE, Normal RLE, Normal LLE, Normal Face CUSTOMER RETENTION SPECIALIST Sensory: Normal: RUE, LUE, RLE, LLE, Face - Cardiac Rhythm: Regular Murmur: None JVD: No Carotid Bruit: No - Pulmonary Breath Sounds: bilateral Clear Respiratory Effort: Symmetrical Anesthesia Assess/Plan ASA Score: 4 (HTN AFib Cardiomyopathy Cirrhosis) Level of consciousness: Cooperative, Oriented Anesthetic Plan: MAC Autologous Blood: No Monitoring Plan: Standard Monitors Recovery Plan: Other (Discussed MAC, agrees to proceed)
[2018-08-30] MEDS ORDERED: EPHEDrine 50 MG/ML VIAL ONE (13:32)
[2018-08-30] MEDS ORDERED: *HR* PHENYLEPHRINE 1,000 MCG/10 ML SYRINGE IVP ONE (13:33)
[2018-08-30] MEDS ORDERED: SODIUM CHLORIDE/NAHCO3/KCL/PEG 4,000 ML SOLN.RECON PO ONE (13:53)
[2018-08-30] MEDS ORDERED: Ethanol\\Acetic Acid\\Na Ace\\Ben 1,000 ML IRRIG.SOLN IR ONE (14:07)
[2018-08-30] MEDS ORDERED: Insulin LISPRO 300 UNITS/3 ML VIAL SQ SCH (21:00)
--- NOTE | 2018-08-30 21:33 | Internal Med Progress Note ---
Hospitalist Progress Note - Encounter Date of Encounter: 08/30/18 Time of Encounter: 19:00 - Subjective Interval History: SUBJECTIVE: I found this patient in good shape today afternoon. His son was sitting next to his bed. We all had a meaningful conversation. The patient had EGD today. It did not show any source of bleeding. He had a colonoscopy in April 2017. He did not show any source of bleeding, either. The patient does not want to have another colonoscopy tomorrow. He has not had any bowel movements recently. Denies abdominal pain, nausea and vomiting. He makes normal urination. Denies chest pain and difficulty breathing. OBJECTIVE: Skin: Free of rash and discoloration. ENMT: Oral/pharyngeal mucosa is normal in appearance. Eyes: Sclera is white. There is no discharge from eyes. Respiratory: Normal breath sounds; no crackles or wheezes. CV: Heart is regular; no gallop or murmur. GI: Abdomen is obese. It is soft and not tender. There is no palpable mass or visceromegaly. Neuro: There is no focal deficits. ADDITIONAL DATA (from yesterday): His hemoglobin is 7.0; after transfusion of 2 units of packed blood cells (5.1 a t admission). He has normal WBC/platelet count. Creatinine is 1.23; 1.55 at admission. Potassium is 3.3; 4.0 at admission. ASSESSMENT AND PLAN: Severe microcytic anemia. The patient was transfused with 2 units of packed red blood cells. He is on IV Protonix. There is no evidence for active GI bleeding at this time. We will repeat his CBC and BMP in the morning. The patient does not want to have an another colonoscopy. The last one was done in April 2017. Acute kidney injury. Resolved after giving him packed red blood cells and IV fluids. Atrial fibrillation. Rate controlled. He is not a candidate for any anticoagulation at this time. COPD. Stable. He will get supplemental oxygen, if needed. Liver cirrhosis. Compensated. He gets IV Protonix. Type 2 diabetes mellitus. To continue when necessary Humalog. Hypertension. Under control. No need for antihypertensives at this time. Disposition: Tentative discharge is tomorrow morning. - Exam Vitals: Temp Pulse Resp BP Pulse Ox 97.8 F 76 12 107/65 95 08/30/18 21:25 08/30/18 21:25 08/30/18 21:25 08/30/18 21:25 08/30/18 21:25 Exam: xx - Assessment and Plan (1) Anemia Current Visit: Yes Status: Chronic (2) CHERRIE (acute kidney injury) Current Visit: Yes Status: Resolved (3) A-fib Current Visit: Yes Status: Chronic (4) COPD (chronic obstructive pulmonary disease) Current Visit: Yes Status: Chronic (5) Cirrhosis Current Visit: Yes Status: Chronic (6) Diabetes mellitus Current Visit: Yes Status: Chronic (7) Essential hypertension Current Visit: Yes Status: Chronic - Time Spent with Patient Total time spent is greater than 50% in coordination of care (as documented) at patient's floor/unit and/or counseling patient: 25 - 35 minutes Plan of Care Discussed with: patient (and family..) Internal Medicine: Result - Labs CBC & Chem 7: 08/30/18 06:11 08/30/18 06:11 Labs: Short CBC 08/30/18 Range/Units 06:11 WBC 9.1 (4.3-11.1) K/mcL Hgb 7.1 L (12.9-16.9) g/dL Hct 24.2 L (37.5-50.1) % Plt Count 433 H (140-400) K/mcL Neutrophils # 7.0 (1.6-8.9) K/mcL BMP 08/30/18 06:11 Sodium 140 Potassium 3.3 L Chloride 101 Carbon Dioxide 33 H BUN 62 H Creatinine 1.21 Glucose 106 H Calcium 8.5 L - ABG Interpretation ABG results: PT/INR, D-dimer PT 13.3 Seconds (9.4-12.1) H 08/28/18 17:58 Consult Discharge Plan - Plan Referrals: Jhonny Naik MD [Primary Care Provider] - (1) Anemia Qualifiers: Anemia type: unspecified type Qualified Code(s): D64.9 - Anemia, unspecified (3) A-fib Qualifiers: Atrial fibrillation type: unspecified Qualified Code(s): I48.91 - Unspecified atrial fibrillation (4) COPD (chronic obstructive pulmonary disease) Qualifiers: COPD type: COPD with acute exacerbation Qualified Code(s): J44.1 - Chronic obstructive pulmonary disease with (acute) exacerbation (5) Cirrhosis Qualifiers: Hepatic cirrhosis type: unspecified hepatic cirrhosis Ascites presence: with ascites Qualified Code(s): K74.60 - Unspecified cirrhosis of liver; R18.8 - Other ascites (6) Diabetes mellitus Qualifiers: Diabetes mellitus type: type 2 Diabetes mellitus longterm insulin use: with lobsterman use Diabetes mellitus complication status: with circulatory complication Diabetes mellitus complication detail: with other circulatory complications Qualified Code(s): E11.59 - Type 2 diabetes mellitus with other circulatory complications; Z79.4 - truck terminal manager (current) use of insulin; Z79.4 - detention (current) use of insulin; Z79.4 - truck terminal manager (current) use of insulin; Z79.4 - truck terminal manager (current) use of insulin
[2018-08-30] MEDS: traZODone 50 MG TABLET PO SCH (22:06)
[2018-08-30] MEDS: hydrOXYzine pamoate 25 MG CAPSULE PO SCH (22:06)
[2018-08-30] MEDS: Melatonin 3 MG TABLET PO SCH (22:07)
[2018-08-30] MEDS: Insulin DETEMIR 100 UNIT/ML X5UNITS SQ SCH (22:08)
[2018-08-31 05:12] LABS: Basophils % 0.5 %; Eosinophils # 0.3 K/mcL (0.0-0.6); Eosinophils % 3.4 %; Hematocrit 23.3 % (37.5-50.1); Hemoglobin 6.9 g/dL (12.9-16.9); Immature Granulocytes % 0.4 % (0-4); Lymphocytes # 0.6 K/mcL (0.6-4.6); Lymphocytes % 6.9 %; Mean Corpuscular HGB Conc 29.6 g/dL (31.6-35.5); Mean Corpuscular Hemoglobin 23.5 pg (28.0-33.3); Mean Corpuscular Volume 79.5 fL (83.0-100.0); Mean Platelet Volume 8.8 fL (9.4-12.4); Monocytes # 1.2 K/mcL (0.0-1.3); Monocytes % 15.3 %; Nucleated Red Blood Cells 0.4 /100 WBC (0); Platelet Count 377 K/mcL (140-400); Red Blood Count 2.93 M/mcL (4.19-5.50); Red Cell Distribution Width 17.7 % (11.5-14.5); Segmented Neutrophils % 73.5 %
[2018-08-31 05:29] LABS: BUN/Creatinine Ratio 40 (6-26); Blood Urea Nitrogen 44 mg/dL (8-23); Calcium 8.4 mg/dL (8.6-10.3); Carbon Dioxide 28 mEq/L (23-29); Chloride 98 mEq/L (98-107); Glucose 122 mg/dL (70-105); Osmolality,Calculated 290 (280-300); Potassium 3.7 mEq/L (3.5-5.1); Sodium 134 mEq/L (136-145); eGFR For Non-African Americans > 60 (> 60)
[2018-08-31] MEDS: Pantoprazole 40 MG VIAL IVP SCH ×2 (05:36→17:27)
[2018-08-31] MEDS: 0.9 % Sodium Chloride 1,000 ML IVC SCH ×2 (07:42→07:43)
[2018-08-31] MEDS: Lactulose Oral Soln 20 GM/30 ML UDC PO SCH (08:22)
[2018-08-31] MEDS: Aspirin 81 MG TAB.CHEW PO SCH (08:23)
[2018-08-31] MEDS: OXcarbazepine 150 MG TABLET PO SCH (08:23)
[2018-08-31] MEDS: *HR* SitaGLIPtin 100 MG TABLET PO SCH (08:23)
[2018-08-31] MEDS: *HR* LORazepam 0.5 MG TABLET PO SCH ×2 (08:23→15:09)
[2018-08-31] MEDS: Sennosides 8.6 MG TABLET PO SCH (08:23)
[2018-08-31] MEDS: Furosemide 40 MG TABLET PO SCH ×2 (08:25→17:27)
[2018-08-31] MEDS: Spironolactone 25 MG TABLET PO SCH ×2 (08:25→15:09)
[2018-08-31] MEDS: risperiDONE 0.25 MG TABLET PO SCH ×2 (08:25→15:09)
[2018-08-31] MEDS: Insulin LISPRO 300 UNITS/3 ML VIAL SQ SCH ×3 (08:26→17:28)
[2018-08-31 17:04] VITALS: BP 133/68
--- NOTE | 2018-08-31 17:13 | Discharge Summary ---
Date of Encounter: 08/31/18 Time of Encounter: 17:11 - Discharge Diagnosis (1) Anemia Priority: Primary Status: Chronic Qualifiers: Anemia type: iron deficiency (2) CHERRIE (acute kidney injury) Priority: Primary Status: Resolved (3) A-fib Priority: Secondary Status: Chronic Qualifiers: Atrial fibrillation type: unspecified Qualified Code(s): I48.91 - Unspecified atrial fibrillation (4) COPD (chronic obstructive pulmonary disease) Priority: Secondary Status: Chronic Qualifiers: COPD type: COPD with acute exacerbation Qualified Code(s): J44.1 - Chronic obstructive pulmonary disease with (acute) exacerbation (5) Cirrhosis Status: Chronic Qualifiers: Hepatic cirrhosis type: unspecified hepatic cirrhosis Ascites presence: with ascites Qualified Code(s): K74.60 - Unspecified cirrhosis of liver; R18.8 - Other ascites (6) Diabetes mellitus Priority: Secondary Status: Chronic Qualifiers: Diabetes mellitus type: type 2 Diabetes mellitus assisted insulin use: with assisted use Diabetes mellitus complication status: with circulatory complication Diabetes mellitus complication detail: with other circulatory complications Qualified Code(s): E11.59 - Type 2 diabetes mellitus with other circulatory complications; Z79.4 - intermediate teacher (current) use of insulin; Z79.4 - intermediate teacher (current) use of insulin; Z79.4 - intermediate teacher (current) use of insulin; Z79.4 - intermediate teacher (current) use of insulin (7) Essential hypertension Status: Chronic Hospital course: Mr. Diaz is a 72 year old male Discharge discussed with: patient, family, nurse - Time Spent with Patient Total time spent providing and/or coordinating discharge services: Greater than 30 minutes (45 minutes..) - Discharge Medications Prescriptions: Ferrous Sulfate 325 mg PO BID #60 tablet Pantoprazole Sodium [Protonix] 40 mg PO QAM #30 Home Medications: Aspirin 81 mg PO DAILY 04/28/15 [History] Albuterol Sulfate [Proair Hfa] 2 puff IH Q4H PRN 01/25/17 [History] Spironolactone [Aldactone] 25 mg PO TID 06/17/17 [History] Lactulose 15 ml PO BID 08/30/17 [History] Sennosides [Senokot] 8.6 mg PO DAILY 08/30/17 [History] SitaGLIPtin [Januvia] 100 mg PO DAILY 08/30/17 [History] Acetaminophen [Tylenol 650mg SUPP] 650 mg RC Q4HR PRN 10/04/17 [History] traZODone [TraZODone] 300 mg PO HS 11/15/17 [History] Potassium Chloride 20 meq PO DAILY tab.er.prt 12/07/17 [Rx] Furosemide [Lasix] 80 mg PO TID 03/30/18 [History] Melatonin [Melatin] 6 mg PO HS 03/30/18 [History] OXcarbazepine [Trileptal] 150 mg PO BID 03/30/18 [History] Sertraline [Zoloft] 200 mg PO DAILY 03/30/18 [History] LORazepam [Ativan] 0.5 mg PO TID 5 Days #15 tablet 04/05/18 [Rx] Insulin DETEMIR [Levemir] 35 units SQ BID 06/06/18 [History] Acetaminophen [Non-Aspirin] 650 mg PO Q4H 08/28/18 [History] Hyoscyamine SL [Levsin Sl] 0.125 mg PO Q2H PRN 08/28/18 [History] Promethazine HCl [Promethegan] 12.5 mg RC Q6H PRN 08/28/18 [History] Promethazine [Phenergan] 25 mg PO Q6H PRN 08/28/18 [History] hydrOXYzine pamoate [Hydroxyzine Pamoate] 100 mg PO HS 08/28/18 [History] risperiDONE [Risperidone] 0.5 mg PO TID 08/28/18 [History] Ferrous Sulfate 325 mg PO BID #60 tablet 08/31/18 [Rx] Pantoprazole Sodium [Protonix] 40 mg PO QAM #30 gran 08/31/18 [Rx] Allergies/Adverse Reactions: Allergy/AdvReac Type Severity Reaction Status Date / Time bupropion [From Wellbutrin] Allergy Difficulty Verified 03/30/18 12:42 Breathing codeine Allergy Difficulty Verified 03/30/18 12:42 Breathing Opioids-Meperidine and Allergy Difficulty Verified 03/30/18 12:42 Related Breathing [Opioids-Meperidine & Related] Date of admission: 08/28/18 19:45 Primary care physician: Jhonny Naik MD Consults: 08/28/18 22:14 Consult to Gastroenterology [CONS] Routine Consulting Provider: [facility] Reason for Consult: LTAC patient with a history of liver cirrhosis who presents with Hgb of 5.1 with no overt source of bleeding. Call Completed: No Discharging clinician: Arcadio Iraheta Anticipated date of discharge: 08/31/18 - Constitutional Vitals: Temp Pulse Resp BP Pulse Ox 97.4 F L 50 15 133/68 98 08/31/18 14:20 08/31/18 14:20 08/31/18 14:20 08/31/18 17:03 08/31/18 14:20 General appearance: Present: no acute distress, answers questions appropriately Exam: xx - Patient Status Disposition: Transfer SNF Condition: Fair Functional capacity at discharge: independent ambulation Overall status at discharge: patient is progressing back to baseline - Discharge Instructions Follow Up With: Jhonny Naik MD [Primary Care Provider] - Additional Instructions: CBC and BMP -- monthly x2 - Diet and Activity Activity: increase activity as tolerated Diet: low fat, low cholesterol - VTE Deep Vein Thrombosis/Pulmonary Embolism Present on Admission: No
--- NOTE | 2018-08-31 18:13 | Physician Discharge Referral ---
ExtendedCare Referral Info Transfer To: [facility] Provider in Charge: Stanley Iraheta MD Provider in Charge after Transfer: Other (An ECF physician..) - Diagnosis (1) Anemia Priority: Primary Status: Acute (2) CHERRIE (acute kidney injury) Priority: Primary Status: Resolved (3) A-fib Priority: Secondary Status: Chronic (4) COPD (chronic obstructive pulmonary disease) Priority: Secondary Status: Chronic (5) Cirrhosis Priority: Secondary Status: Chronic (6) Diabetes mellitus Priority: Secondary Status: Chronic (7) Essential hypertension Status: Chronic Prognosis: Fair Aware of Diagnosis: Patient, Family Aware of Prognosis: Patient, Family - Transfer Medications Prescriptions: Ferrous Sulfate 325 mg PO BID #60 tablet Pantoprazole Sodium [Protonix] 40 mg PO QAM #30 Home Medications: Aspirin 81 mg PO DAILY 04/28/15 [History] Albuterol Sulfate [Proair Hfa] 2 puff IH Q4H PRN 01/25/17 [History] Spironolactone [Aldactone] 25 mg PO TID 06/17/17 [History] Lactulose 15 ml PO BID 08/30/17 [History] Sennosides [Senokot] 8.6 mg PO DAILY 08/30/17 [History] SitaGLIPtin [Januvia] 100 mg PO DAILY 08/30/17 [History] Acetaminophen [Tylenol 650mg SUPP] 650 mg RC Q4HR PRN 10/04/17 [History] traZODone [TraZODone] 300 mg PO HS 11/15/17 [History] Potassium Chloride 20 meq PO DAILY tab.er.prt 12/07/17 [Rx] Furosemide [Lasix] 80 mg PO TID 03/30/18 [History] Melatonin [Melatin] 6 mg PO HS 03/30/18 [History] OXcarbazepine [Trileptal] 150 mg PO BID 03/30/18 [History] Sertraline [Zoloft] 200 mg PO DAILY 03/30/18 [History] LORazepam [Ativan] 0.5 mg PO TID 5 Days #15 tablet 04/05/18 [Rx] Insulin DETEMIR [Levemir] 35 units SQ BID 06/06/18 [History] Acetaminophen [Non-Aspirin] 650 mg PO Q4H 08/28/18 [History] Hyoscyamine SL [Levsin Sl] 0.125 mg PO Q2H PRN 08/28/18 [History] Promethazine HCl [Promethegan] 12.5 mg RC Q6H PRN 08/28/18 [History] Promethazine [Phenergan] 25 mg PO Q6H PRN 08/28/18 [History] hydrOXYzine pamoate [Hydroxyzine Pamoate] 100 mg PO HS 08/28/18 [History] risperiDONE [Risperidone] 0.5 mg PO TID 08/28/18 [History] Ferrous Sulfate 325 mg PO BID #60 tablet 08/31/18 [Rx] Pantoprazole Sodium [Protonix] 40 mg PO QAM #30 josepheladio. 08/31/18 [Rx] Allergies/Adverse Reactions: Allergy/AdvReac Type Severity Reaction Status Date / Time bupropion [From Wellbutrin] Allergy Difficulty Verified 03/30/18 12:42 Breathing codeine Allergy Difficulty Verified 03/30/18 12:42 Breathing Opioids-Meperidine and Allergy Difficulty Verified 03/30/18 12:42 Related Breathing [Opioids-Meperidine & Related] - Respiratory Orders None Smoking Cessation: Smoking cessation has been advised. For more information, call the [place] Tobacco Quit Line at 1-519-YWNC-NOW. - Advance Directives Code Status: Full Code - Mobility Orders Ambulate - Rehabiliation Orders Rehab Potential: Fair - Treatments Skin tear care topically daily PRN per policy - Diet Orders No Concentrated Sweets CERTIFICATION: I certify that the transfer of the above named patient to an Extended Care Facility is necessary for the continuing treatment of the diagnosis listed. The above information is true and accurate reflection of patient's current condition. Confidential - Redisclosure prohibited without a patient's written consent.
== END 2018-08-31 20:00 ==
LOC: EMEROOARM 17:17 → 3ANU 17:17 → SUATTDRO 19:45 → 3ANU 21:09
PROVIDERS: ADMIT Internal Medicine; ATTEND Internal Medicine

== ENCOUNTER 2018-09-13 15:04 | Inpatient (IN) ==
[2018-09-13] MEDS ORDERED: 0.9 % Sodium Chloride 500 ML IVC ONE (15:16)
--- NOTE | 2018-09-13 15:41 | Emergency Department Note ---
Disposition Clinical Impression: Symptomatic anemia GI bleeding Qualifiers: GI bleed type/associated pathology: unspecified gastrointestinal hemorrhage type Qualified Code(s): K92.2 - Gastrointestinal hemorrhage, unspecified Disposition: Admitted As Inpatient Referrals: NONE,PCP [Primary Care Provider] - General Adult HPI - General Chief complaint: ED Recheck/Abnormal Lab/Rx Stated complaint: abnormal lab Time Seen by Provider: 09/13/18 15:11 Source: patient Limitations: no limitations Nursing Notes Reviewed: Yes Vital Signs Reviewed: Yes - History of Present Illness HPI Narrative: Attestation note I examined this patient and my medical decision-making was reviewed with the Resident Physician/ENGRAVER MACHINE/PA. I agree with the documented findings, disposition and treatment plan as described except to the extent set forth below Patient seen with emergency medicine resident Charlene Maldonado, please see copy of his note for details of this patient encounter Briefly: 72-year-old male transferred from longterm facility for "abnormal labs". Patient has a history of GI bleed he is on iron is been having dark stools and chronic. They did laboratory testing a CBC on September 01 his hemoglobin was 6.8 at the time but he refused transfer refused further treatment. Patient is becoming more fatigued weaker here for further evaluation discussed with the patient that if his hemoglobin is 6.8 orally or that he will need to be transfused and admitted patient is agreeable to this plan. Patient's abdominal examination is protuberant surgically benign patient will be getting screening labs digital rectal examination type and screen and likely transfusion of PRBCs 2 units with admission. Providing 45 minutes critical care service for this patient. Disposition pending Pain Scale: 0 - Related Data Home Medications Medication Instructions Recorded Confirmed Aspirin 81 mg PO DAILY 04/28/15 08/28/18 Albuterol Sulfate [Proair Hfa] 2 puff IH Q4H PRN 01/25/17 08/28/18 Spironolactone [Aldactone] 25 mg PO TID 06/17/17 08/28/18 Lactulose 15 ml PO BID 08/30/17 08/28/18 Sennosides [Senokot] 8.6 mg PO DAILY 08/30/17 08/28/18 SitaGLIPtin [Januvia] 100 mg PO DAILY 08/30/17 08/28/18 Acetaminophen [Tylenol 650mg SUPP] 650 mg RC Q4HR PRN 10/04/17 08/28/18 traZODone [TraZODone] 300 mg PO HS 11/15/17 08/28/18 Furosemide [Lasix] 80 mg PO TID 03/30/18 08/28/18 Melatonin [Melatin] 6 mg PO HS 03/30/18 08/28/18 OXcarbazepine [Trileptal] 150 mg PO BID 03/30/18 08/28/18 Sertraline [Zoloft] 200 mg PO DAILY 03/30/18 08/28/18 Insulin DETEMIR [Levemir] 35 units SQ BID 06/06/18 08/28/18 Acetaminophen [Non-Aspirin] 650 mg PO Q4H 08/28/18 08/28/18 Hyoscyamine SL [Levsin Sl] 0.125 mg PO Q2H PRN 08/28/18 08/28/18 Promethazine HCl [Promethegan] 12.5 mg RC Q6H PRN 08/28/18 08/28/18 Promethazine [Phenergan] 25 mg PO Q6H PRN 08/28/18 08/28/18 hydrOXYzine pamoate [Hydroxyzine 100 mg PO HS 08/28/18 08/28/18 Pamoate] risperiDONE [Risperidone] 0.5 mg PO TID 08/28/18 08/28/18 Previous Rx's Medication Instructions Recorded Potassium Chloride 20 meq PO DAILY tab.er.prt 12/07/17 LORazepam [Ativan] 0.5 mg PO TID 5 Days #15 tablet 04/05/18 Ferrous Sulfate 325 mg PO BID #60 tablet 08/31/18 Pantoprazole Sodium [Protonix] 40 mg PO QAM #30 08/31/18 Allergies Allergy/AdvReac Type Severity Reaction Status Date / Time bupropion [From Wellbutrin] Allergy Difficulty Verified 09/13/18 15:12 Breathing codeine Allergy Difficulty Verified 09/13/18 15:12 Breathing Opioids-Meperidine and Allergy Difficulty Verified 09/13/18 15:12 Related Breathing [Opioids-Meperidine & Related] Past Medical History - Past Medical History Medical history: Reports: arthritis, atrial fibrillation, CHF, COPD, diabetes, hyperlipidemia, hypertension, liver disease, renal disease Surgical history: Reports: orthopedic, other, pacemaker/AICD Psychiatric history: Reports: anxiety, depression - Social History Smoking Status: Former smoker Smokeless Tobacco Status: No Alcohol use: Reports: none Drug use: Reports: none Physical Exam - General Limitations: no limitations General appearance: alert, in no apparent distress Course Vital Signs Temperature 97.1 F L 09/13/18 15:12 Pulse Rate 53 09/13/18 15:12 Respiratory Rate 12 09/13/18 15:12 Blood Pressure 132/53 09/13/18 15:12 O2 Sat by Pulse Oximetry 100 09/13/18 15:12 Temperature 97.1 F L 09/13/18 15:12 Pulse Rate 53 09/13/18 15:12 Respiratory Rate 12 09/13/18 15:12 Blood Pressure 132/53 09/13/18 15:12 O2 Sat by Pulse Oximetry 100 09/13/18 15:12 Oxygen Delivery Oxygen Delivery Room Air
--- NOTE | 2018-09-13 15:48 | Emergency Department Note ---
Disposition Clinical Impression: Symptomatic anemia GI bleeding Qualifiers: GI bleed type/associated pathology: unspecified gastrointestinal hemorrhage type Qualified Code(s): K92.2 - Gastrointestinal hemorrhage, unspecified Disposition: Admitted As Inpatient Condition: Fair Referrals: NONE,PCP [Primary Care Provider] - Forms: ED Satisfaction Letter Time of Disposition: 17:02 General Adult HPI - General Chief complaint: ED Recheck/Abnormal Lab/Rx Stated complaint: abnormal lab Time Seen by Provider: 09/13/18 15:11 Source: patient Mode of arrival: EMS Limitations: no limitations Nursing Notes Reviewed: Yes Vital Signs Reviewed: Yes - History of Present Illness HPI Narrative: 72-year-old male with a history of A. fib, diabetes, renal disease present for evaluation of abnormal labs. Patient presents from [facility] facility where they noted low hemoglobin lab test over the past week. Also noted to have blood in his stool. Patient at bedside does not provide an accurate history. It is difficult to say whether this is at the patient's baseline. No prior notable history of GI bleed. Patient is on iron supplementation. Patient not able to provide whether not he is anticoagulated. At time of exam the patient denies any specific complaints. No chest penetrance of breath and abdominal pain or nausea vomiting. Pain Scale: 0 - Related Data Home Medications Medication Instructions Recorded Confirmed Aspirin 81 mg PO DAILY 04/28/15 08/28/18 Albuterol Sulfate [Proair Hfa] 2 puff IH Q4H PRN 01/25/17 08/28/18 Spironolactone [Aldactone] 25 mg PO TID 06/17/17 08/28/18 Lactulose 15 ml PO BID 08/30/17 08/28/18 Sennosides [Senokot] 8.6 mg PO DAILY 08/30/17 08/28/18 SitaGLIPtin [Januvia] 100 mg PO DAILY 08/30/17 08/28/18 Acetaminophen [Tylenol 650mg SUPP] 650 mg RC Q4HR PRN 10/04/17 08/28/18 traZODone [TraZODone] 300 mg PO HS 11/15/17 08/28/18 Furosemide [Lasix] 80 mg PO TID 03/30/18 08/28/18 Melatonin [Melatin] 6 mg PO HS 03/30/18 08/28/18 OXcarbazepine [Trileptal] 150 mg PO BID 03/30/18 08/28/18 Sertraline [Zoloft] 200 mg PO DAILY 03/30/18 08/28/18 Insulin DETEMIR [Levemir] 35 units SQ BID 06/06/18 08/28/18 Acetaminophen [Non-Aspirin] 650 mg PO Q4H 08/28/18 08/28/18 Hyoscyamine SL [Levsin Sl] 0.125 mg PO Q2H PRN 08/28/18 08/28/18 Promethazine HCl [Promethegan] 12.5 mg RC Q6H PRN 08/28/18 08/28/18 Promethazine [Phenergan] 25 mg PO Q6H PRN 08/28/18 08/28/18 hydrOXYzine pamoate [Hydroxyzine 100 mg PO HS 08/28/18 08/28/18 Pamoate] risperiDONE [Risperidone] 0.5 mg PO TID 08/28/18 08/28/18 Previous Rx's Medication Instructions Recorded Potassium Chloride 20 meq PO DAILY tab.er.prt 12/07/17 LORazepam [Ativan] 0.5 mg PO TID 5 Days #15 tablet 04/05/18 Ferrous Sulfate 325 mg PO BID #60 tablet 08/31/18 Pantoprazole Sodium [Protonix] 40 mg PO QAM #30 granpkt. 08/31/18 Allergies Allergy/AdvReac Type Severity Reaction Status Date / Time bupropion [From Wellbutrin] Allergy Difficulty Verified 09/13/18 15:12 Breathing codeine Allergy Difficulty Verified 09/13/18 15:12 Breathing Opioids-Meperidine and Allergy Difficulty Verified 09/13/18 15:12 Related Breathing [Opioids-Meperidine & Related] All systems ED: reviewed and negative except as stated. Constitutional: Denies: fever Cardiovascular: Denies: chest pain Respiratory: Denies: cough, dyspnea Gastrointestinal: Denies: abdominal pain, nausea, vomiting, diarrhea Past Medical History - Past Medical History Source: patient Medical history: Reports: arthritis, atrial fibrillation, CHF, COPD, diabetes, hyperlipidemia, hypertension, liver disease, renal disease Surgical history: Reports: orthopedic, other, pacemaker/AICD Psychiatric history: Reports: anxiety, depression - Social History Smoking Status: Former smoker Smokeless Tobacco Status: No Alcohol use: Reports: none Drug use: Reports: none Physical Exam - General Limitations: no limitations General appearance: alert, in no apparent distress, obese - Head Head exam: atraumatic, normocephalic, normal inspection - Eye Eye exam: Present: normal appearance, PERRL, EOMI. Absent: scleral icterus - ENT ENT exam: normal exam - Neck Neck exam: Present: normal inspection - Chest Chest inspection: Present: normal inspection, symmetric chest wall rise - Respiratory Respiratory exam: Present: normal lung sounds bilaterally. Absent: respiratory distress - Cardiovascular Cardiovascular exam: Present: regular rate, normal rhythm. Absent: systolic murmur - Abdominal Exam Abdominal exam: Present: soft, Non-Tender. Absent: guarding, rebound - Rectal Exam Rectal exam: Present: normal inspection. Absent: bloody stool - Extremities Exam Extremities exam: Present: normal inspection. Absent: pedal edema - Expanded Lower Extremity Exam Neurovascular/Tendon exam: Present: normal capillary refill - Back Exam Back exam: Present: normal inspection - Neurological Exam Neurological exam: Present: alert, CN II-XII intact - Skin Skin exam: Present: warm, dry, intact, normal color Course Course Narrative: Patient seen and examined. Patient will get baseline labs EKG. Disposition pending. - Consultations Consultation #1: Patient's case discussed with Dr. Singer who will evaluate the patient tomorrow morning. Recommend keep the patient on clear liquids likely upper and lower endoscopy on Tuesday. Recommends 2 units of PRBCs. Time: 16:51 Vital Signs Temperature 97.1 F L 09/13/18 15:12 Pulse Rate 53 09/13/18 15:12 Respiratory Rate 12 09/13/18 15:12 Blood Pressure 132/53 09/13/18 15:12 O2 Sat by Pulse Oximetry 100 09/13/18 15:12 Temperature 97.1 F L 09/13/18 15:12 Pulse Rate 53 09/13/18 15:12 Respiratory Rate 12 09/13/18 15:12 Blood Pressure 132/53 09/13/18 15:12 O2 Sat by Pulse Oximetry 100 09/13/18 15:12 Oxygen Delivery Oxygen Delivery Room Air Medical Decision Making - MDM Narrative Medical decision making narrative: 72-year-old male persists for evaluation of GI bleed from the nursing facility. Patient did have recent hospitalization where he was evaluated by GI history of cirrhosis upper GI bleed. Patient was having bloody stools per the nursing staff report for the past week. Patient's been receiving IV iron. On exam the patient does not have any occult grossly bloody stools. Occult stool pending. Patient denies any specific complaints. No chest pain or shortness of breath. No history of anticoagulation besides ASA. Spoke with GI states that they will perform endoscopies likely in the next 2 days anticipated on Tuesday. Recommend clear liquid diet. Patient's hemodynamically stable. 2 units of PRBCs sees ordered with discussion with the blood bank. - Lab Data Lab results reviewed: Yes I reviewed the patient's lab results. Result diagrams: 09/13/18 15:47 09/13/18 15:47 Lab Results 09/13/18 09/13/18 09/13/18 Range/Units 15:47 15:47 15:47 WBC 8.7 (4.3-11.1) K/mcL RBC 2.83 L (4.19-5.50) M/mcL Hgb 6.9 L (12.9-16.9) g/dL Hct 23.3 L (37.5-50.1) % MCV 82.3 L (83.0-100.0) fL MCH 24.4 L (28.0-33.3) pg MCHC 29.6 L (31.6-35.5) g/dL RDW 22.1 H (11.5-14.5) % Plt Count 308 (140-400) K/mcL MPV 8.7 L (9.4-12.4) fL Immature Gran % 0.2 (0-4) % Seg Neutrophils % 79.0 % Lymphocytes % 5.7 % Monocytes % 12.3 % Eosinophils % 2.2 % Basophils % 0.6 % Neutrophils # 6.9 (1.6-8.9) K/mcL Lymphocytes # 0.5 L (0.6-4.6) K/mcL Monocytes # 1.1 (0.0-1.3) K/mcL Eosinophils # 0.2 (0.0-0.6) K/mcL Basophils # 0.1 (0.0-0.2) K/mcL Nucleated RBCs/100 WBC 0.2 H (0) /100 WBC PT (9.4-12.1) Seconds INR Sodium 135 L (136-145) mEq/L Potassium 3.8 (3.5-5.1) mEq/L Chloride 96 L (98-107) mEq/L Carbon Dioxide 32 H (23-29) mEq/L BUN 55 H (8-23) mg/dL Creatinine 1.26 (0.70-1.30) mg/dL Est GFR ( Amer) > 60 (> 60) Est GFR (Non-Af Amer) 56 L (> 60) BUN/Creatinine Ratio 44 H (6-26) Glucose 174 H (70-105) mg/dL Calculated Osmolality 299 (280-300) Calcium 9.0 (8.6-10.3) mg/dL Total Bilirubin 0.4 (0.3-1.0) mg/dL AST 12 L (13-39) Units/L ALT 11 (7-52) Units/L Alkaline Phosphatase 98 (34-104) Units/L Serum Total Protein 7.3 (6.4-8.9) g/dL Albumin 3.6 (3.5-5.7) g/dL Globulin 3.7 H (2.4-3.5) g/dL Albumin/Globulin Ratio 1.0 L (1.1-2.2) Blood Type O POSITIVE Antibody Screen POSITIVE A MTS Gel Crossmatch See Detail 09/13/18 Range/Units 15:48 WBC (4.3-11.1) K/mcL RBC (4.19-5.50) M/mcL Hgb (12.9-16.9) g/dL Hct (37.5-50.1) % MCV (83.0-100.0) fL MCH (28.0-33.3) pg MCHC (31.6-35.5) g/dL RDW (11.5-14.5) % Plt Count (140-400) K/mcL MPV (9.4-12.4) fL Immature Gran % (0-4) % Seg Neutrophils % % Lymphocytes % % Monocytes % % Eosinophils % % Basophils % % Neutrophils # (1.6-8.9) K/mcL Lymphocytes # (0.6-4.6) K/mcL Monocytes # (0.0-1.3) K/mcL Eosinophils # (0.0-0.6) K/mcL Basophils # (0.0-0.2) K/mcL Nucleated RBCs/100 WBC (0) /100 WBC PT 13.2 H (9.4-12.1) Seconds INR 1.2 Sodium (136-145) mEq/L Potassium (3.5-5.1) mEq/L Chloride (98-107) mEq/L Carbon Dioxide (23-29) mEq/L BUN (8-23) mg/dL Creatinine (0.70-1.30) mg/dL Est GFR ( Amer) (> 60) Est GFR (Non-Af Amer) (> 60) BUN/Creatinine Ratio (6-26) Glucose (70-105) mg/dL Calculated Osmolality (280-300) Calcium (8.6-10.3) mg/dL Total Bilirubin (0.3-1.0) mg/dL AST (13-39) Units/L ALT (7-52) Units/L Alkaline Phosphatase (34-104) Units/L Serum Total Protein (6.4-8.9) g/dL Albumin (3.5-5.7) g/dL Globulin (2.4-3.5) g/dL Albumin/Globulin Ratio (1.1-2.2) Blood Type Antibody Screen MTS Gel Crossmatch - EKG Data EKG #1 EKG attestation: Yes I reviewed and interpreted this EKG. EKG results narrative: Ventricular paced rhythm at a rate of 57. Left axis deviation. No signs of Sgarbossa criteria. Ric - Ric Situation: Demographics Background: Presenting Complaint Assessment: Vital Signs, Course and respsone to treatment, Patient/Family Expectation Recommendation: Barrier(s) to disposition, Recommendation based on pending studies, treatments, or consults S.B.Ariadne Report Given to: Hospitalist Ric Hall Time: 17:02
[2018-09-13] MEDS ORDERED: Pantoprazole 40 MG VIAL IVP ONE (15:51)
[2018-09-13 16:04] LABS: Basophils % 0.6 %; Hemoglobin 6.9 g/dL (12.9-16.9)
[2018-09-13 16:05] LABS: Basophils # 0.1 K/mcL (0.0-0.2); Eosinophils # 0.2 K/mcL (0.0-0.6); Eosinophils % 2.2 %; Hematocrit 23.3 % (37.5-50.1); Immature Granulocytes % 0.2 % (0-4); Lymphocytes # 0.5 K/mcL (0.6-4.6); Lymphocytes % 5.7 %; Mean Corpuscular HGB Conc 29.6 g/dL (31.6-35.5); Mean Corpuscular Hemoglobin 24.4 pg (28.0-33.3); Mean Corpuscular Volume 82.3 fL (83.0-100.0); Mean Platelet Volume 8.7 fL (9.4-12.4); Monocytes # 1.1 K/mcL (0.0-1.3); Monocytes % 12.3 %; Neutrophils # 6.9 K/mcL (1.6-8.9); Nucleated Red Blood Cells 0.2 /100 WBC (0); Platelet Count 308 K/mcL (140-400); Red Blood Count 2.83 M/mcL (4.19-5.50); Red Cell Distribution Width 22.1 % (11.5-14.5)
[2018-09-13 16:14] LABS: INR 1.2; Prothrombin Time 13.2 Seconds (9.4-12.1)
[2018-09-13 16:24] LABS: Alanine Aminotransferase 11 Units/L (7-52); Albumin 3.6 g/dL (3.5-5.7); Alkaline Phosphatase 98 Units/L (34-104); Aspartate Amino Transferase 12 Units/L (13-39); BUN/Creatinine Ratio 44 (6-26); Bilirubin,Total 0.4 mg/dL (0.3-1.0); Blood Urea Nitrogen 55 mg/dL (8-23); Carbon Dioxide 32 mEq/L (23-29); Chloride 96 mEq/L (98-107); Globulin 3.7 g/dL (2.4-3.5); Glucose 174 mg/dL (70-105); Osmolality,Calculated 299 (280-300); Potassium 3.8 mEq/L (3.5-5.1); Sodium 135 mEq/L (136-145); Total Protein 7.3 g/dL (6.4-8.9); eGFR For Non-African Americans 56 (> 60)
[2018-09-13] MEDS ORDERED: 0.9 % Sodium Chloride w KCl 20 MEQ/1,000 ML MLS IVC SCH (17:45)
[2018-09-13] MEDS ORDERED: Naloxone 0.4 MG/ML INJ IVP PRN (17:45)
[2018-09-13] MEDS ORDERED: Dextrose Gel 15 GM/37.5 ML TUBE PO PRN ×2 (19:02)
[2018-09-13] MEDS ORDERED: *HR* Dextrose 50 % in Water (Syg) 50 ML SYRINGE IVP PRN (19:02)
[2018-09-13] MEDS ORDERED: D5% in Water 1,000 ML IVC PRN (19:02)
--- NOTE | 2018-09-13 19:05 | Internal Med History&Physical ---
Date of Encounter: 09/13/18 Time of Encounter: 19:00 Internal Medicine - H&P: HPI Chief complaint: [facility] History of present illness: Mr. Diaz is a 72 year old male with pmh of afib, diabetes presenting with complaints of black stools today that was seen at the [facility]. Patient is unable to provide much history other than the fact that he saw black stools. Per ER, records labs at the [facility] had shown him to be progressively more anemic. His daughter observed he had blood in his stools and requested that he be brought to the ER. He denies any acute complaints such as abdominal pain, shortness of breath or light headedness. In the ER,, an order was placed to transfuse 2 units of PRBC and GI was consulted. He is being admitted for further management Past Med Surg Social Fam HX - Past Medical History Medical history: arthritis, atrial fibrillation, CHF, COPD, diabetes, hyperlipidemia, hypertension, liver disease, renal disease Additional medical history: ACSITES Psychiatric history: anxiety, depression - Past Surgical History Surgical History: orthopedic, other, pacemaker/AICD Additional surgical history: LEFT BROKEN FEMUR REPAIR. - Social History Smoking Status: Former smoker Smokeless Tobacco Status: No Alcohol use: none Drug use: none - Family History Father Living Status: Hx Family Cardiac Disorders: Yes (Triple Bypass) Hx Family Endocrine Disorder: Yes (DM) Mother Family Member Ethnicity: Non- Living Status: Internal Medicine - H&P: Meds Aspirin 81 mg PO DAILY 04/28/15 [History] Albuterol Sulfate [Proair Hfa] 2 puff IH Q4H PRN 01/25/17 [History] Spironolactone [Aldactone] 25 mg PO TID 06/17/17 [History] Lactulose 15 ml PO BID 08/30/17 [History] Sennosides [Senokot] 8.6 mg PO DAILY 08/30/17 [History] SitaGLIPtin [Januvia] 100 mg PO DAILY 08/30/17 [History] Acetaminophen [Tylenol 650mg SUPP] 650 mg RC Q4HR PRN 10/04/17 [History] traZODone [TraZODone] 300 mg PO HS 11/15/17 [History] Potassium Chloride 20 meq PO DAILY tab.er.prt 12/07/17 [Rx] Furosemide [Lasix] 80 mg PO TID 03/30/18 [History] Melatonin [Melatin] 6 mg PO HS 03/30/18 [History] OXcarbazepine [Trileptal] 150 mg PO BID 03/30/18 [History] Sertraline [Zoloft] 200 mg PO DAILY 03/30/18 [History] LORazepam [Ativan] 0.5 mg PO TID 5 Days #15 tablet 04/05/18 [Rx] Insulin DETEMIR [Levemir] 35 units SQ BID 06/06/18 [History] Acetaminophen [Non-Aspirin] 650 mg PO Q4H 08/28/18 [History] Hyoscyamine SL [Levsin Sl] 0.125 mg PO Q2H PRN 08/28/18 [History] Promethazine HCl [Promethegan] 12.5 mg RC Q6H PRN 08/28/18 [History] Promethazine [Phenergan] 25 mg PO Q6H PRN 08/28/18 [History] hydrOXYzine pamoate [Hydroxyzine Pamoate] 100 mg PO HS 08/28/18 [History] risperiDONE [Risperidone] 0.5 mg PO TID 08/28/18 [History] Ferrous Sulfate 325 mg PO BID #60 tablet 08/31/18 [Rx] Pantoprazole Sodium [Protonix] 40 mg PO QAM #30 josep 08/31/18 [Rx] Allergy/AdvReac Type Severity Reaction Status Date / Time bupropion [From Wellbutrin] Allergy Difficulty Verified 09/13/18 15:12 Breathing codeine Allergy Difficulty Verified 09/13/18 15:12 Breathing Opioids-Meperidine and Allergy Difficulty Verified 09/13/18 15:12 Related Breathing [Opioids-Meperidine & Related] All Systems PM: A 10-system review of systems was performed and is negative for pertinent findings except as documented above in the HPI. - Constitutional Constitutional: no chills, no fever(s), no night sweats - EENT Eyes: no change in vision, no discharge, no pain, no photophobia Ears: no ear discharge, no ear pain, no tinnitus Nose, mouth and throat: no dysphagia, no nasal discharge, no neck pain, no sore throat - Cardiovascular Cardiovascular ROS IM: no chest pain, no diaphoresis, no dyspnea, no lightheadedness, no palpitations, no syncope - Respiratory Respiratory: no cough, no dyspnea, no wheezing, no excessive phlegm production - Gastrointestinal Gastrointestinal: melena, no abdominal pain, no diarrhea, no hematemesis, no hematochezia, no nausea, no vomiting - Musculoskeletal Musculoskeletal ROS IM: no numbness, no tingling - Integumentary Integumentary IM: no rash, no unusual bruising - Neurological Neurological ROS: no confusion, no convulsions, no focal weakness, no numbness, no tingling, no tremor(s) - Hematologic/Lymphatic Hematologic/Lymphatic: no easy bruising - Constitutional Vitals: Temp Pulse Resp BP Pulse Ox 97.4 F L 54 18 116/66 93 09/13/18 18:48 09/13/18 18:48 09/13/18 18:48 09/13/18 18:48 09/13/18 18:48 Exam: NAD - Head Head exam: Present: atraumatic, normocephalic - Eye Eye exam: Present: PERRL, conjuntiva pink, sclera anicteric Pupils: Present: PERRL - Neck Neck exam general surgery: Present: supple, trachea midline. Absent: lymphadenopathy - Respiratory Respiratory exam: Present: CTAB. Absent: accessory muscle use, rales, rhonchi, wheezes - Cardiovascular Cardiovascular exam: Present: RRR, +S1, +S2. Absent: diastolic murmur, gallop, rubs, systolic murmur - GI/Abdominal GI/Abdominal exam: Present: normal bowel sounds, soft, no peritoneal signs. Absent: distended, tenderness - Extremities Exam Extremities exam: Present: warm, radial pulses palpable and symmetrical. Absent: calf tenderness, cyanotic, pedal edema - Neurological Exam Neurological exam: Present: CN II-XII intact, oriented X3, no focal deficits. Absent: pronater drift, facial droop, speech deficit - Skin Skin exam: Present: dry, intact Internal Med - H&P Results - Labs CBC & Chem 7: 09/13/18 15:47 09/13/18 15:47 Labs: Short CBC 09/13/18 Range/Units 15:47 WBC 8.7 (4.3-11.1) K/mcL Hgb 6.9 L (12.9-16.9) g/dL Hct 23.3 L (37.5-50.1) % Plt Count 308 (140-400) K/mcL Neutrophils # 6.9 (1.6-8.9) K/mcL BMP 09/13/18 15:47 Sodium 135 L Potassium 3.8 Chloride 96 L Carbon Dioxide 32 H BUN 55 H Creatinine 1.26 Glucose 174 H Calcium 9.0 Liver Function 09/13/18 Range/Units 15:47 Total Bilirubin 0.4 (0.3-1.0) mg/dL AST 12 L (13-39) Units/L ALT 11 (7-52) Units/L Alkaline Phosphatase 98 (34-104) Units/L Albumin 3.6 (3.5-5.7) g/dL - Assessment and plan (1) GI bleeding Current Visit: Yes Status: Acute Assessment and plan: Pt comes in with dark stools and low hemoglobin of 6.9 and prior GI bleed Will start on protonix BID and transfuse 2 units PRBC. NPO from midnight. GI consulted and appreciate recs Qualifiers: GI bleed type/associated pathology: unspecified gastrointestinal hemorrhage type Qualified Code(s): K92.2 - Gastrointestinal hemorrhage, unspecified (2) Diabetes mellitus Current Visit: Yes Status: Acute Assessment and plan: will place on sliding scale and reduce dose of daniella acting insulin due to fact pt is NPO Place on D5 at 50cc/ hr while NPO Qualifiers: Diabetes mellitus type: type 2 Diabetes mellitus long goods drier insulin use: with custodial use Diabetes mellitus complication status: with circulatory complication Diabetes mellitus complication detail: with other circulatory complications Qualified Code(s): E11.59 - Type 2 diabetes mellitus with other circulatory complications; Z79.4 - terminal gauger supervisor (current) use of insulin; Z79.4 - terminal gauger supervisor (current) use of insulin; Z79.4 - terminal gauger supervisor (current) use of insulin; Z79.4 - terminal gauger supervisor (current) use of insulin (3) COPD (chronic obstructive pulmonary disease) Current Visit: Yes Status: Acute Assessment and plan: Nebs as needed. No acute exacerbation Qualifiers: COPD type: COPD with acute exacerbation Qualified Code(s): J44.1 - Chronic obstructive pulmonary disease with (acute) exacerbation (4) Cirrhosis Current Visit: Yes Status: Acute Assessment and plan: Continue lactulose as needed. Not acutely decompensated Qualifiers: Qualified Code(s): K74.60 - Unspecified cirrhosis of liver (5) Hypertension Current Visit: Yes Status: Acute Assessment and plan: Stable. Continue home meds Qualifiers: Hypertension type: essential hypertension Qualified Code(s): I10 - Essential (primary) hypertension (6) Afib Current Visit: Yes Status: Acute Assessment and plan: Rate controlled. Not a candidate for anticoagulation at this time due to GI bleed Qualifiers: Atrial fibrillation type: paroxysmal Qualified Code(s): I48.0 - Paroxysmal atrial fibrillation (7) DVT prophylaxis Current Visit: Yes Status: Acute Assessment and plan: SCDS - Time Spent With Patient Total time spent is greater than 50% in coordination of care (as documented) at patient's floor/unit and/or counseling patient:
[2018-09-13] MEDS: Pantoprazole 40 MG VIAL IVP SCH (19:15)
[2018-09-13 19:20] LABS: Estimated Average Glucose 100 mg/dl; Hemoglobin A1C 5.1 %
[2018-09-13] MEDS: D5% in 0.45% NACL 1,000 ML IVC SCH (20:04)
[2018-09-13] MEDS ORDERED: 0.9 % Sodium Chloride 250 ML ONE (20:26)
[2018-09-13] MEDS: Insulin LISPRO 300 UNITS/3 ML VIAL SQ SCH (20:56)
[2018-09-13] MEDS ORDERED: Insulin DETEMIR 100 UNIT/ML X5UNITS SQ SCH (21:00)
[2018-09-13] MEDS: traZODone 50 MG TABLET PO SCH (21:01)
[2018-09-13] MEDS: hydrOXYzine pamoate 25 MG CAPSULE PO SCH (21:01)
[2018-09-13] MEDS: OXcarbazepine 150 MG TABLET PO SCH (21:01)
[2018-09-13] MEDS: Melatonin 3 MG TABLET PO SCH (21:02)
[2018-09-13] MEDS: risperiDONE 0.25 MG TABLET PO SCH (21:02)
[2018-09-14] MEDS ORDERED: 0.9 % Sodium Chloride 250 ML ONE ×2 (00:02→04:24)
[2018-09-14] MEDS ORDERED: Furosemide 20 MG/2 ML VIAL IVP ONE (03:52)
[2018-09-14] MEDS: Insulin LISPRO 300 UNITS/3 ML VIAL SQ SCH ×2 (07:55→11:33)
[2018-09-14] MEDS: risperiDONE 0.25 MG TABLET PO SCH ×3 (09:30→20:33)
[2018-09-14] MEDS: Pantoprazole 40 MG VIAL IVP SCH ×2 (09:30→17:54)
[2018-09-14] MEDS: OXcarbazepine 150 MG TABLET PO SCH ×2 (09:30→20:33)
--- NOTE | 2018-09-14 09:43 | Gastroenterology Consult Note ---
<Jarad Steen - Last Filed: 09/14/18 14:26> Date of Encounter: 09/14/18 Time of Encounter: 10:30 - Assessment and plan (1) GI bleeding Status: Acute Assessment and plan: Continued GI bleeding, unknown source. Likely upper GI Patient reports ongoing melena, frequent problem for him EGD on previous admission was nondiagnostic of source of bleeding although did demonstrate esophagitis On arrival, hemoglobin 6.9 and symptomatic. Patient did receive 2U PRBC which did raise his hemoglobin to 9.6. We will repeat his EGD today with push Continue PPI at this time, maintain nothing by mouth Qualifiers: GI bleed type/associated pathology: unspecified gastrointestinal hemorrhage type Qualified Code(s): K92.2 - Gastrointestinal hemorrhage, unspecified (2) Anemia Status: Acute Assessment and plan: Plan as above Transfusion parameters per primary team Qualifiers: Anemia type: iron deficiency Iron deficiency anemia type: chronic blood loss Qualified Code(s): D50.0 - Iron deficiency anemia secondary to blood loss (chronic) (3) Cirrhosis Status: Chronic Assessment and plan: Cirrhosis, chronic and stable Qualifiers: Hepatic cirrhosis type: unspecified hepatic cirrhosis Ascites presence: with ascites Qualified Code(s): K74.60 - Unspecified cirrhosis of liver; R18.8 - Other ascites - Time Spent With Patient Total time spent is greater than 50% in coordination of care (as documented) at patient's floor/unit and/or counseling patient: GI History of Present Illness - Data of Consult Patient: known to practice within the last 3 years Consult date: 09/14/18 Requesting Physician: Arcadio Iraheta - Consult Narrative Reason for consult: GI bleed History of present illness: Mr. Diaz is a 72 year old male with history of atrial fibrillation not on anticoagulation, diabetes mellitus, cirrhosis of the liver and multiple recent hospitalizations for concerns of GI bleeds in the past couple of months who presented to the hospital from [facility] due to concerns of black tarry stools. The patient states that he was discharged from the hospital about 2 weeks ago at which time he was being worked up for a GI bleed with hemoglobin of 5.2, and seemed to be doing a lot better after discharge until yesterday at which time he noticed a large black tarry bowel movement for the first time since his discharge. He says that he had been relatively asymptomatic up until that time, however since that time he has also been noticing that he is significantly more dizzy and lightheaded. In fact on examination today he also notes that he is extremely lightheaded and feels as though he may fall over. He says that this has been going on continuously over the past couple months and he has been unable to determine where this potential bleeding is coming from. He did have an EGD on his previous admission on 08/30/18 which demonstrated LA grade A esophagitis however was otherwise generally unremarkable. On arrival to the ED, the patient did have a hemoglobin of 6.9 and then received 2 units of packed red blood cells. He had a positive occult blood in his stool. He was placed on Protonix twice a day and a consult to GI was placed for further workup. Colonoscopy: 04/28/17 EGD: 08/30/18 Past Med Surg Social Fam HX - Past Medical History Medical history: arthritis, atrial fibrillation, CHF, COPD, diabetes, hyperlipidemia, hypertension, liver disease, renal disease Additional medical history: ACSITES Psychiatric history: anxiety, depression - Past Surgical History Surgical History: orthopedic, other, pacemaker/AICD Additional surgical history: LEFT BROKEN FEMUR REPAIR. - Social History Smoking Status: Former smoker Smokeless Tobacco Status: No Alcohol use: none Drug use: none - Family History Father Living Status: Hx Family Cardiac Disorders: Yes (Triple Bypass) Hx Family Endocrine Disorder: Yes (DM) Mother Family Member Ethnicity: Non- Living Status: Review of Systems: Constitutional: Denies fevers, chills, weight loss, admits to generalized fatigue Head/Neck: Denies [place], neck stiffness EENT: Denies vision changes/blurriness, rhinorrhea, congestion, sore throat CVS: Denies chest pain, palpitations, [place], orthopnea, edema, PND Pulm: Denies SOB, cough, sputum, hemoptysis, wheezing GI: Denies abdominal pain, nausea, vomiting, diarrhea, constipation, hematemasis. Patient admits to melena. : Denies dysuria, increased frequency, urgency, hematuria Heme: Admits to significantly easy bleeding MSK: Denies joint pain, limited ROM Skin: Denies rashes, ulcers, color changes Neuro: Denies [place], paresthesias, focal deficits, ataxia. Admits to lightheadedness and dizziness. - Constitutional Vitals: Temp Pulse Resp BP Pulse Ox 97.5 F L 69 18 111/66 95 09/14/18 08:40 09/14/18 08:40 09/14/18 08:40 09/14/18 08:40 09/14/18 07:16 Exam: Gen: Vitals noted. No acute distress. Ill-appearing Eyes: anicteric sclerae, moist conjunctivae; no lid-lag; Pupils equal and reactive to light HENT: Atraumatic; oropharynx clear with moist mucous membranes and no mucosal ulcerations; normal hard and soft palate Neck: Trachea midline; supple, no thyromegaly or lymphadenopathy Cardiac: RRR, no murmur, +S1/S2 Pulmonary: CTA bilaterally, no wheezes, rales or rhonchi, equal chest expansion Abdomen: soft, nontender, no guarding. No masses or hepatosplenomegaly MSK: ROM intact, no joint swelling noted Extremities: no BLE edema, nontender calf, no cyanosis or clubbing Skin: Normal temperature, pale-appearing, turgor and texture; no rash, ulcers or subcutaneous nodules Neuro: moves all extremities, no focal deficits. Psych: Appropriate mood and behavior. A&Ox3 Results - Labs CBC & Chem 7: 09/14/18 09:59 09/14/18 09:59 Labs: Last Result Calcium 9.0 mg/dL (8.6-10.3) 09/13/18 15:47 Entire Visit Hgb 6.9 g/dL (12.9-16.9) L 09/13/18 15:47 Hct 23.3 % (37.5-50.1) L 09/13/18 15:47 PT 13.2 Seconds (9.4-12.1) H 09/13/18 15:48 Total Bilirubin 0.4 mg/dL (0.3-1.0) 09/13/18 15:47 AST 12 Units/L (13-39) L 09/13/18 15:47 ALT 11 Units/L (7-52) 09/13/18 15:47 - ABG ABG results: PT/INR, D-dimer PT 13.2 Seconds (9.4-12.1) H 09/13/18 15:48 Consult Discharge Plan - Plan Instructions: Chronic Obstructive Pulmonary Disease (DC) Referrals: NONE,PCP [Primary Care Provider] - Prescriptions: RX: Omeprazole [PriLOSEC] 20 mg PO BIDAC 30 Days #60 cap <Getachew Singer - Last Filed: 09/19/18 07:31> Date of Encounter: 09/14/18 - Time Spent With Patient Total time spent is greater than 50% in coordination of care (as documented) at patient's floor/unit and/or counseling patient: GI History of Present Illness - Data of Consult Requesting Physician: Arcadio Iraheta - Consult Narrative History of present illness: Mr. Diaz is a 72 year old male - Constitutional Vitals: Temp Pulse Resp BP Pulse Ox 98.1 F 53 17 135/55 93 09/15/18 08:30 09/15/18 08:30 09/15/18 08:30 09/15/18 08:30 09/15/18 09:00 Results - Labs CBC & Chem 7: 09/15/18 09:19 09/15/18 09:14 Labs: Last Result Calcium 8.5 mg/dL (8.6-10.3) L 09/15/18 09:14 Entire Visit Hgb 8.7 g/dL (12.9-16.9) L 09/15/18 09:19 Hct 28.4 % (37.5-50.1) L 09/15/18 09:19 PT 13.2 Seconds (9.4-12.1) H 09/13/18 15:48 Total Bilirubin 0.4 mg/dL (0.3-1.0) 09/13/18 15:47 AST 12 Units/L (13-39) L 09/13/18 15:47 ALT 11 Units/L (7-52) 09/13/18 15:47 - ABG ABG results: PT/INR, D-dimer PT 13.2 Seconds (9.4-12.1) H 09/13/18 15:48 - Attending Attestation I examined this patient and my medical decision-making was reviewed with the Resident Physician. I agree with the documented findings, disposition and treatment plan as described except to the extent set forth below.
--- NOTE | 2018-09-14 10:19 | Internal Med Progress Note ---
Hospitalist Progress Note - Encounter Date of Encounter: 09/14/18 Time of Encounter: 10:20 - Subjective Interval History: 72 year old male with pmh of afib, diabetes presenting with complaints of [facility] stools today [facility] Patient is unable to provide much history other than the fact that he saw black stools. Per ER, records labs at the [facility] had shown him to be progressively more anemic. His daughter observed he had blood in his stools and requested that he be brought to the ER. He denies any acute complaints such as abdominal pain, shortness of breath or light headedness. In the ER,, an order was placed to transfuse 2 units of PRBC and GI was consulted - Exam Vitals: Temp Pulse Resp BP Pulse Ox 97.5 F L 69 18 111/66 95 09/14/18 08:40 09/14/18 08:40 09/14/18 08:40 09/14/18 08:40 09/14/18 07:16 Exam: Gen - Awake, alert, oriented x 3, no acute distress HEENT - NCAT, PERRLA, EOMI, hearing grossly intact, oropharynx benign CV - RRR, normal S1 and S2, no M/R/G, no BLE edema Resp - Normal WOB, CTAB, no W/R/R GI - Soft, NT/ND, no masses, normal bowel sounds, Skin - Warm, dry, no rashes/lesions/ulcers Psych - Normal mood and affect, no depression or anxiety - Assessment and Plan (1) GI bleeding Current Visit: Yes Status: Acute Assessment and Plan: Acute blood loss anemia with GI bleed. Pt comes in with dark stools and low hemoglobin of 6.9 and prior GI bleed Will start on protonix BID and transfuse 2 units PRBC. NPO from midnight. GI consulted and plan for endoscopy today (2) Diabetes mellitus Current Visit: Yes Status: Acute Assessment and Plan: will place on sliding scale and reduce dose of daniella acting insulin due to fact pt is NPO Place on D5 at 50cc/ hr while NPO (3) COPD (chronic obstructive pulmonary disease) Current Visit: Yes Status: Acute Assessment and Plan: Nebs as needed. No acute exacerbation (4) Cirrhosis Current Visit: Yes Status: Acute Assessment and Plan: Continue lactulose as needed. Not acutely decompensated (5) Hypertension Current Visit: Yes Status: Acute Assessment and Plan: Stable. Continue home meds (6) Afib Current Visit: Yes Status: Acute Assessment and Plan: Rate controlled. Not a candidate for anticoagulation at this time due to GI bleed (7) DVT prophylaxis Current Visit: Yes Status: Acute Assessment and Plan: SCDS - Time Spent with Patient Total time spent is greater than 50% in coordination of care (as documented) at patient's floor/unit and/or counseling patient: Internal Medicine: Result - Labs CBC & Chem 7: 09/14/18 09:59 09/14/18 09:59 Labs: Short CBC 09/13/18 Range/Units 15:47 WBC 8.7 (4.3-11.1) K/mcL Hgb 6.9 L (12.9-16.9) g/dL Hct 23.3 L (37.5-50.1) % Plt Count 308 (140-400) K/mcL Neutrophils # 6.9 (1.6-8.9) K/mcL BMP 09/13/18 15:47 Sodium 135 L Potassium 3.8 Chloride 96 L Carbon Dioxide 32 H BUN 55 H Creatinine 1.26 Glucose 174 H Calcium 9.0 Liver Function 09/13/18 Range/Units 15:47 Total Bilirubin 0.4 (0.3-1.0) mg/dL AST 12 L (13-39) Units/L ALT 11 (7-52) Units/L Alkaline Phosphatase 98 (34-104) Units/L Albumin 3.6 (3.5-5.7) g/dL - ABG Interpretation ABG results: PT/INR, D-dimer PT 13.2 Seconds (9.4-12.1) H 09/13/18 15:48 Consult Discharge Plan - Plan Referrals: Damian Seymour MD [Non-Partnered Physician] - (1) GI bleeding Qualifiers: GI bleed type/associated pathology: unspecified gastrointestinal hemorrhage type Qualified Code(s): K92.2 - Gastrointestinal hemorrhage, unspecified (2) Diabetes mellitus Qualifiers: Diabetes mellitus type: type 2 Diabetes mellitus penitentiary insulin use: with penitentiary use Diabetes mellitus complication status: with circulatory complica tion Diabetes mellitus complication detail: with other circulatory complic ations Qualified Code(s): E11.59 - Type 2 diabetes mellitus with other cir culatory complications; Z79.4 - extermination supervisor (current) use of insulin; Z79.4 - extermination supervisor (current) use of insulin; Z79.4 - extermination supervisor (current) use of insulin; Z79.4 - extermination supervisor (current) use of insulin (3) COPD (chronic obstructive pulmonary disease) Qualifiers: COPD type: COPD with acute exacerbation Qualified Code(s): J44.1 - Chronic obstructive pulmonary disease with (acute) exacerbation (4) Cirrhosis Qualifiers: Qualified Code(s): K74.60 - Unspecified cirrhosis of liver (5) Hypertension Qualifiers: Hypertension type: essential hypertension Qualified Code(s): I10 - Essential (primary) hypertension (6) Afib Qualifiers: Atrial fibrillation type: paroxysmal Qualified Code(s): I48.0 - Paroxysmal atrial fibrillation
[2018-09-14 10:27] LABS: Basophils % 0.5 %; Eosinophils # 0.2 K/mcL (0.0-0.6); Eosinophils % 2.7 %; Hematocrit 31.6 % (37.5-50.1); Immature Granulocytes % 0.2 % (0-4); Lymphocytes # 0.5 K/mcL (0.6-4.6); Lymphocytes % 5.8 %; Mean Corpuscular HGB Conc 30.4 g/dL (31.6-35.5); Mean Corpuscular Hemoglobin 25.8 pg (28.0-33.3); Mean Corpuscular Volume 84.9 fL (83.0-100.0); Mean Platelet Volume 8.4 fL (9.4-12.4); Neutrophils # 6.3 K/mcL (1.6-8.9); Platelet Count 315 K/mcL (140-400); Red Blood Count 3.72 M/mcL (4.19-5.50); Red Cell Distribution Width 19.6 % (11.5-14.5); Segmented Neutrophils % 78.8 %
[2018-09-14 10:36] LABS: BUN/Creatinine Ratio 41 (6-26); Blood Urea Nitrogen 46 mg/dL (8-23); Calcium 8.7 mg/dL (8.6-10.3); Carbon Dioxide 29 mEq/L (23-29); Chloride 103 mEq/L (98-107); Glucose 98 mg/dL (70-105); Magnesium 2.3 mg/dL (1.6-2.6); Osmolality,Calculated 304 (280-300); Phosphorous 3.4 mg/dL (2.7-4.5); Potassium 3.6 mEq/L (3.5-5.1); Sodium 141 mEq/L (136-145); eGFR For Non-African Americans > 60 (> 60)
[2018-09-14 10:58] LABS: Hemoglobin 9.6 g/dL (12.9-16.9)
--- NOTE | 2018-09-14 12:48 | Anesthesia Evaluation PreOp ---
Date of Encounter: 09/14/18 Time of Encounter: 13:25 - Past History Planned Operation: EGD Cardiac History: CHF, HTN, Hyperlipidemia, Arrhythmia (H/O A-Fib), Pacemaker/ICD (pacemaker) Pulmonary History: Former smoker (quit 10 years ago), COPD [employer] History: Denies Any Significant HX Other Medical History: Hepatic (cirrhosis with ascites), Renal (CKD), Diabetes Type II, Other (anxiety/depression) Anesthesia History: No Prior Anesthetic Complications, Past Anesthesia Alcohol Use: none Drug use: none Medications and Allergies Aspirin 81 mg PO DAILY 04/28/15 [History] Albuterol Sulfate [Proair Hfa] 2 puff IH Q4H PRN 01/25/17 [History] Spironolactone [Aldactone] 25 mg PO TID 06/17/17 [History] Lactulose 15 ml PO BID 08/30/17 [History] Sennosides [Senokot] 8.6 mg PO DAILY 08/30/17 [History] SitaGLIPtin [Januvia] 100 mg PO DAILY 08/30/17 [History] Acetaminophen [Tylenol 650mg SUPP] 650 mg RC Q4HR PRN 10/04/17 [History] traZODone [TraZODone] 300 mg PO HS 11/15/17 [History] Potassium Chloride 20 meq PO DAILY tab.er.prt 12/07/17 [Rx] Furosemide [Lasix] 80 mg PO TID 03/30/18 [History] Melatonin [Melatin] 6 mg PO HS 03/30/18 [History] OXcarbazepine [Trileptal] 150 mg PO BID 03/30/18 [History] Sertraline [Zoloft] 200 mg PO DAILY 03/30/18 [History] LORazepam [Ativan] 0.5 mg PO TID 5 Days #15 tablet 04/05/18 [Rx] Insulin DETEMIR [Levemir] 35 units SQ BID 06/06/18 [History] Acetaminophen [Non-Aspirin] 650 mg PO Q4H 08/28/18 [History] Hyoscyamine SL [Levsin Sl] 0.125 mg PO Q2H PRN 08/28/18 [History] Promethazine HCl [Promethegan] 12.5 mg RC Q6H PRN 08/28/18 [History] Promethazine [Phenergan] 25 mg PO Q6H PRN 08/28/18 [History] hydrOXYzine pamoate [Hydroxyzine Pamoate] 100 mg PO HS 08/28/18 [History] risperiDONE [Risperidone] 0.5 mg PO TID 08/28/18 [History] Ferrous Sulfate 325 mg PO BID #60 tablet 08/31/18 [Rx] Pantoprazole Sodium [Protonix] 40 mg PO QAM #30 granpkt. 08/31/18 [Rx] Allergy/AdvReac Type Severity Reaction Status Date / Time bupropion [From Wellbutrin] Allergy Difficulty Verified 09/13/18 15:12 Breathing codeine Allergy Difficulty Verified 09/13/18 15:12 Breathing Opioids-Meperidine and Allergy Difficulty Verified 09/13/18 15:12 Related Breathing [Opioids-Meperidine & Related] - Meds/Allergy Pre-op Review Medications Reviewed: Yes Allergies Reviewed: Yes Beta Blockers on Current Med List: No Anesthesia Results - Labs 09/14/18 09:59 09/14/18 09:59 - Imaging EKG: report reviewed (08/28/2018 Ventricular-paced rhythm No further analysis attempted due to paced rhythm) Additional studies: 06/08/2018 Echo Impressions: LVEF 45-50%. Normal left ventricular diastolic function. Normal right ventricular structure and function. Trileaflet aortic valve. Moderate aortic stenosis. The estimated aortic valve area was approximately 1.25 cm2. Peak gradient is 40mmHg and peak aortic velocity is 3.49cm/s. Trace tricuspid regurgitation. Unable to estimate RVSP due to lack of TR jet. A device lead was visualized in the right atrium and right ventricle. Aortic Valve Peak Gal: 3.49 m/sec Mean Gal: 2.48 m/sec Peak Grad: 49.00 mmHg Mean Grad: 27.00 mmHg Valve Area: 1.25 cm2 Findings: Study Quality * Technically adequate exam. ECG Findings * Paced rhythm. Left Ventricle * LVEF 45-50%. * Normal left ventricular diastolic function. Right Ventricle * Normal right ventricular structure and function. Left Atrium * Normal left atrial size. Right Atrium * Normal right atrial size. Interatrial Septum * No evidence of PFO by color Doppler. Aortic Valve * Trileaflet aortic valve. * Moderately calcified aortic valve leaflets. * Moderate aortic stenosis. * The estimated aortic valve area was approximately 1.25 cm2. * Peak gradient is 40mmHg and peak aortic velocity is 3.49cm/s. Mitral Valve * Normal mitral valve structure. * No mitral regurgitation. * No mitral stenosis. Tricuspid Valve * Trace tricuspid regurgitation. * Normal tricuspid valve structure. * Unable to estimate RVSP due to lack of TR jet. Pulmonic Valve * Normal pulmonic valve structure. * No pulmonic regurgitation. Aorta * Normally sized aortic root. Pericardium * The pericardium appears normal. IVC * Normal IVC dimensions and inspiratory collapse. Device lead * A device lead was visualized in the right atrium and right ventricle. Pulmonary Artery * Normal visualized portions of the main pulmonary artery. Anesthesia Exam Vital Signs/O2 Sat/Glucose, Most Recent Temp Pulse Resp BP Pulse Ox 97.5 F L 52 19 138/67 96 09/14/18 10:56 09/14/18 10:56 09/14/18 10:56 09/14/18 10:56 09/14/18 10:56 Blood Glucose* 102 Height: 6'/1.83m Weight: 241 lbs/109.5 kg - HEENT Pupil (Motor): EOMI Mallampati: III Teeth: Missing, Poor dentition Oral Opening: Greater than 3 - [employer] LOC: Oriented [employer] Motor: Normal RUE, Normal LUE, Normal RLE, Normal LLE, Normal Face [employer] Sensory: Normal: RUE, LUE, Face, Deficit: RLE, LLE - Cardiac Rhythm: Regular Murmur: Systolic - Pulmonary Breath Sounds: bilateral Clear Respiratory Effort: Symmetrical Anesthesia Assess/Plan ASA Score: 4 Level of consciousness: Cooperative, Oriented, Tranquil Anesthetic Plan: MAC Monitoring Plan: Standard Monitors
[2018-09-14] MEDS ORDERED: Lidocaine -MPF 2% 2 ML VIAL ONE (13:18)
[2018-09-14] MEDS ORDERED: *HR* Propofol 200 MG/20 ML VIAL IVP ONE (13:18)
[2018-09-14] MEDS ORDERED: 0.9 % Sodium Chloride 500 ML IVC SCH (13:30)
[2018-09-14] MEDS ORDERED: Simethicone 40 MG/0.6 ML MLS IR ONE (13:58)
[2018-09-14] MEDS ORDERED: Tetracaine/Benzocaine/Butamben 1 SPRAY AEROSOL MM ONE (13:58)
--- NOTE | 2018-09-14 15:57 | Electrocardiograph Report ---
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
[2018-09-14] MEDS: D5% in 0.45% NACL 1,000 ML IVC SCH (19:42)
[2018-09-14] MEDS: hydrOXYzine pamoate 25 MG CAPSULE PO SCH (20:33)
[2018-09-14] MEDS: traZODone 50 MG TABLET PO SCH (20:33)
[2018-09-14] MEDS: Melatonin 3 MG TABLET PO SCH (20:33)
[2018-09-14] MEDS ORDERED: Insulin DETEMIR 100 UNIT/ML X5UNITS SQ SCH (21:00)
[2018-09-15] MEDS: Pantoprazole 40 MG VIAL IVP SCH (05:33)
[2018-09-15 08:31] VITALS: BP 135/55
[2018-09-15] MEDS: OXcarbazepine 150 MG TABLET PO SCH (08:52)
[2018-09-15] MEDS: risperiDONE 0.25 MG TABLET PO SCH (08:52)
--- NOTE | 2018-09-15 09:01 | Discharge Summary ---
Orders not resulted at time of discharge: Pending orders 09/15/18 08:46 CBC [Complete Blood Count] [HEME] Routine Date of Encounter: 09/15/18 Time of Encounter: 08:50 - Discharge Diagnosis (1) GI bleeding Priority: Primary Status: Acute Assessment and Plan: 72 year old male with pmh of afib, diabetes presenting with complaints of black stools today that was seen at the detention. Patient is unable to provide much history other than the fact that he saw black stools. Per ER, records labs at the detention had shown him to be progressively more anemic. His daughter observed he had blood in his stools and requested that he be brought to the ER. He denies any acute complaints such as abdominal pain, shortness of breath or light headedness. In the ER,, an order was placed to transfuse 2 units of PRBC and GI was consulted. He was assessed with acute blood loss anemia with GI bleed. He came in with dark stools and low hemoglobin of 6.9 and prior GI bleed. He was started on protonix BID and transfuse 2 units PRBC. His hemoglobin responded appropriately. 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 He had coagulation done with a monopolar and bipolar probe by GI which was successful. GI recommend repeat EGD in 6 weeks to ablate the GAVE. He also had a chest xray done showing a stable loculated right sided pleural effusion seen on previous imaging. Discussed with pulmonary (Dr Odonnell) who recommended no thoracentesis and outpatient followup with pulm. He was discharged in a stable condition. 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; Z79.4 - superintendent terminal (current) use of insulin; Z79.4 - superintendent terminal (current) use of insulin; Z79.4 - correction (current) use of insulin; Z79.4 - superintendent terminal (current) use of insulin (3) COPD (chronic obstructive pulmonary disease) Priority: Primary Status: Acute Qualifiers: COPD type: COPD with acute exacerbation Qualified Code(s): J44.1 - Chronic obstructive pulmonary disease with (acute) exacerbation (4) Cirrhosis Priority: Primary Status: Acute Qualifiers: Qualified Code(s): K74.60 - Unspecified cirrhosis of liver (5) Hypertension Priority: Primary Status: Acute Qualifiers: Hypertension type: essential hypertension Qualified Code(s): I10 - Essential (primary) hypertension (6) Afib Priority: Primary Status: Acute Qualifiers: Atrial fibrillation type: paroxysmal Qualified Code(s): I48.0 - Paroxysmal atrial fibrillation (7) DVT prophylaxis Priority: Primary Status: Acute Hospital course: Mr. Diaz is a 72 year old male - Time Spent with Patient Total time spent providing and/or coordinating discharge services: - Discharge Medications Prescriptions: Omeprazole [PriLOSEC] 20 mg PO BIDAC 30 Days #60 cap Home Medications: Aspirin 81 mg PO DAILY 04/28/15 [History] Albuterol Sulfate [Proair Hfa] 2 puff IH Q4H PRN 01/25/17 [History] Spironolactone [Aldactone] 25 mg PO TID 06/17/17 [History] Lactulose 15 ml PO BID 08/30/17 [History] Sennosides [Senokot] 8.6 mg PO DAILY 08/30/17 [History] Acetaminophen [Tylenol 650mg SUPP] 650 mg RC Q4HR PRN 10/04/17 [History] traZODone [TraZODone] 300 mg PO HS 11/15/17 [History] Potassium Chloride 20 meq PO DAILY tab.er.prt 12/07/17 [Rx] Furosemide [Lasix] 80 mg PO TID 03/30/18 [History] Melatonin [Melatin] 6 mg PO HS 03/30/18 [History] OXcarbazepine [Trileptal] 150 mg PO BID 03/30/18 [History] Sertraline [Zoloft] 200 mg PO DAILY 03/30/18 [History] LORazepam [Ativan] 0.5 mg PO TID 5 Days #15 tablet 04/05/18 [Rx] Acetaminophen [Non-Aspirin] 650 mg PO Q4H 08/28/18 [History] Hyoscyamine SL [Levsin Sl] 0.125 mg PO Q2H PRN 08/28/18 [History] Promethazine HCl [Promethegan] 12.5 mg RC Q6H PRN 08/28/18 [History] Promethazine [Phenergan] 25 mg PO Q6H PRN 08/28/18 [History] hydrOXYzine pamoate [Hydroxyzine Pamoate] 100 mg PO HS 08/28/18 [History] risperiDONE [Risperidone] 0.5 mg PO TID 08/28/18 [History] Ferrous Sulfate 325 mg PO BID #60 tablet 08/31/18 [Rx] Omeprazole [PriLOSEC] 20 mg PO BIDAC 30 Days #60 cap 09/15/18 [Rx] Allergies/Adverse Reactions: Allergy/AdvReac Type Severity Reaction Status Date / Time bupropion [From Wellbutrin] Allergy Difficulty Verified 09/13/18 15:12 Breathing codeine Allergy Difficulty Verified 09/13/18 15:12 Breathing Opioids-Meperidine and Allergy Difficulty Verified 09/13/18 15:12 Related Breathing [Opioids-Meperidine & Related] Date of admission: 09/13/18 17:45 Primary care physician: PCP NONE Consults: 09/13/18 16:50 Consult to Gastroenterology [CONS] Stat Consulting Provider: Gastroenterology Margaret Reason for Consult: Gi bleed Call Completed: Yes - Constitutional Vitals: Temp Pulse Resp BP Pulse Ox 98.1 F 53 17 135/55 93 09/15/18 08:30 09/15/18 08:30 09/15/18 08:30 09/15/18 08:30 09/15/18 08:30 Exam: Gen - Awake, alert, oriented x 3, no acute distress HEENT - NCAT, PERRLA, EOMI, hearing grossly intact, oropharynx benign CV - RRR, normal S1 and S2, no M/R/G, no BLE edema Resp - Normal WOB, CTAB, no W/R/R GI - Soft, NT/ND, no masses, normal bowel sounds, Skin - Warm, dry, no rashes/lesions/ulcers Psych - Normal mood and affect, no depression or anxiety - Patient Status Disposition: Home, Self-Care Condition: Good - Discharge Instructions Instructions: Chronic Obstructive Pulmonary Disease (DC) Follow Up With: NONE,PCP [Primary Care Provider] -
[2018-09-15 09:45] LABS: BUN/Creatinine Ratio 33 (6-26); Blood Urea Nitrogen 34 mg/dL (8-23); Calcium 8.5 mg/dL (8.6-10.3); Carbon Dioxide 31 mEq/L (23-29); Chloride 102 mEq/L (98-107); Glucose 164 mg/dL (70-105); Osmolality,Calculated 295 (280-300); Potassium 3.6 mEq/L (3.5-5.1); Sodium 137 mEq/L (136-145); eGFR For Non-African Americans > 60 (> 60)
[2018-09-15 10:17] LABS: Basophils # 0.1 K/mcL (0.0-0.2); Basophils % 0.6 %; Eosinophils # 0.3 K/mcL (0.0-0.6); Eosinophils % 3.2 %; Hematocrit 28.4 % (37.5-50.1); Hemoglobin 8.7 g/dL (12.9-16.9); Immature Granulocytes % 0.3 % (0-4); Lymphocytes # 0.5 K/mcL (0.6-4.6); Lymphocytes % 5.4 %; Mean Corpuscular HGB Conc 30.6 g/dL (31.6-35.5); Mean Corpuscular Hemoglobin 25.7 pg (28.0-33.3); Mean Platelet Volume 8.8 fL (9.4-12.4); Monocytes % 10.9 %; Neutrophils # 7.2 K/mcL (1.6-8.9); Platelet Count 313 K/mcL (140-400); Red Blood Count 3.38 M/mcL (4.19-5.50); Red Cell Distribution Width 20.3 % (11.5-14.5); Segmented Neutrophils % 79.6 %
[2018-09-15] MEDS ORDERED: Furosemide 40 MG/4 ML VIAL IVP ONE (10:25)
--- NOTE | 2018-09-15 15:52 | Physician Discharge Referral ---
- Diagnosis (1) GI bleeding Priority: Primary Status: Acute (2) Diabetes mellitus Priority: Primary Status: Acute (3) COPD (chronic obstructive pulmonary disease) Priority: Primary Status: Acute (4) Cirrhosis Priority: Primary Status: Acute (5) Hypertension Priority: Primary Status: Acute (6) Afib Priority: Primary Status: Acute (7) DVT prophylaxis Status: Acute - Transfer Medications Prescriptions: Omeprazole [PriLOSEC] 20 mg PO BIDAC 30 Days #60 cap Home Medications: Aspirin 81 mg PO DAILY 04/28/15 [History] Albuterol Sulfate [Proair Hfa] 2 puff IH Q4H PRN 01/25/17 [History] Spironolactone [Aldactone] 25 mg PO TID 06/17/17 [History] Lactulose 15 ml PO BID 08/30/17 [History] Sennosides [Senokot] 8.6 mg PO DAILY 08/30/17 [History] Acetaminophen [Tylenol 650mg SUPP] 650 mg RC Q4HR PRN 10/04/17 [History] traZODone [TraZODone] 300 mg PO HS 11/15/17 [History] Potassium Chloride 20 meq PO DAILY tab.er.prt 12/07/17 [Rx] Furosemide [Lasix] 80 mg PO TID 03/30/18 [History] Melatonin [Melatin] 6 mg PO HS 03/30/18 [History] OXcarbazepine [Trileptal] 150 mg PO BID 03/30/18 [History] Sertraline [Zoloft] 200 mg PO DAILY 03/30/18 [History] LORazepam [Ativan] 0.5 mg PO TID 5 Days #15 tablet 04/05/18 [Rx] Acetaminophen [Non-Aspirin] 650 mg PO Q4H 08/28/18 [History] Hyoscyamine SL [Levsin Sl] 0.125 mg PO Q2H PRN 08/28/18 [History] Promethazine HCl [Promethegan] 12.5 mg RC Q6H PRN 08/28/18 [History] Promethazine [Phenergan] 25 mg PO Q6H PRN 08/28/18 [History] hydrOXYzine pamoate [Hydroxyzine Pamoate] 100 mg PO HS 08/28/18 [History] risperiDONE [Risperidone] 0.5 mg PO TID 08/28/18 [History] Ferrous Sulfate 325 mg PO BID #60 tablet 08/31/18 [Rx] Omeprazole [PriLOSEC] 20 mg PO BIDAC 30 Days #60 cap 09/15/18 [Rx] Allergies/Adverse Reactions: Allergy/AdvReac Type Severity Reaction Status Date / Time bupropion [From Wellbutrin] Allergy Difficulty Verified 09/13/18 15:12 Breathing codeine Allergy Difficulty Verified 09/13/18 15:12 Breathing Opioids-Meperidine and Allergy Difficulty Verified 09/13/18 15:12 Related Breathing [Opioids-Meperidine & Related] - Respiratory Orders Smoking Cessation: Smoking cessation has been advised. For more information, call the [place] Tobacco Quit Line at 9-176-NUQA-NOW. - Mobility Orders Ambulate - Rehabiliation Orders Rehab Orders: Evaluation for Physical Therapy - Diet Orders Cardiac CERTIFICATION: I certify that the transfer of the above named patient to an Extended Care Facility is necessary for the continuing treatment of the diagnosis listed. The above information is true and accurate reflection of patient's current condition. Confidential - Redisclosure prohibited without a patient's written consent.
== END 2018-09-15 15:05 | DRG 378 ==
LOC: EMEROOARM 15:04 → 3ANU 15:04
PROVIDERS: ADMIT Internal Medicine; ATTEND Internal Medicine

== ENCOUNTER 2019-07-09 20:22 | Inpatient (IN) ==
[2019-07-09] MEDS ORDERED: Piperacillin/Tazobactam 3.375 GM in Water for inj. (sterile) 20 ML IVP ONE (20:33)
[2019-07-09] MEDS ORDERED: Acetaminophen 650 MG RECTAL SUPP RC ONE (20:35)
[2019-07-09] MEDS ORDERED: Ipratropium/Albuterol Neb 3 ML IH ONE (20:35)
[2019-07-09 20:52] LABS: INR 1.7; Prothrombin Time 18.9 Seconds (9.4-12.1)
[2019-07-09 20:53] LABS: Basophils # 0.1 K/mcL (0.0-0.2); Basophils % 0.2 %; Eosinophils % 0.1 %; Hematocrit 27.9 % (37.5-50.1); Hemoglobin 8.8 g/dL (12.9-16.9); Immature Granulocytes % 0.7 % (0-4); Lymphocytes # 0.3 K/mcL (0.6-4.6); Lymphocytes % 1.2 %; Mean Corpuscular HGB Conc 31.5 g/dL (31.6-35.5); Mean Corpuscular Hemoglobin 23.9 pg (28.0-33.3); Mean Corpuscular Volume 75.8 fL (83.0-100.0); Mean Platelet Volume 8.8 fL (9.4-12.4); Monocytes # 1.5 K/mcL (0.0-1.3); Monocytes % 6.7 %; Neutrophils # 20.7 K/mcL (1.6-8.9); Platelet Count 414 K/mcL (140-400); Red Blood Count 3.68 M/mcL (4.19-5.50); Red Cell Distribution Width 16.3 % (11.5-14.5); Segmented Neutrophils % 91.1 %; White Blood Count 22.7 K/mcL (4.3-11.1)
[2019-07-09 20:55] LABS: Activated Partial Thrombo Time 30.2 Seconds (26.0-36.0)
[2019-07-09 20:56] LABS: Bilirubin,Urine Small (Negative); Blood,Urine Negative (Negative); Clarity,Urine Clear (Clear); Color,Urine Dark Yellow (Yellow); Glucose,Urine (UA) Normal (Normal); Ketones,Urine Negative (Negative); Leukocyte Esterase,Urine Small (Negative); Nitrite,Urine Negative (Negative); PH,Urine 5.5 pH Units (5.0-8.0); Protein,Urine Trace mg/dL (Neg-Trace); Specific Gravity,Urine 1.016 (1.010-1.025)
[2019-07-09 20:59] LABS: Squamous Epithelial Cell,Urine Many per lpf (None-Few)
[2019-07-09 21:01] LABS: VBG HCO3 29 mEq/L (21-27); VBG PCO2 47 mmHg (41-51); VBG PO2 66 mmHg (25-50)
[2019-07-09 21:19] LABS: Albumin 3.2 g/dL (3.5-5.7); Albumin/Globulin Ratio 0.7 (1.1-2.2); Bilirubin,Direct 0.3 mg/dL (0.0-0.2); Bilirubin,Indirect 0.5 mg/dL (0.0-1.0); Bilirubin,Total 0.8 mg/dL (0.3-1.0); Calcium 8.6 mg/dL (8.6-10.3); Globulin 4.5 g/dL (2.4-3.5); Magnesium 2.2 mg/dL (1.6-2.6); Phosphorous 3.2 mg/dL (2.7-4.5); Potassium 4.9 mEq/L (3.5-5.1); Total Protein 7.7 g/dL (6.4-8.9); Troponin I 0.04 ng/mL (< 0.04)
[2019-07-09 22:01] LABS: Bacteria,Urine Few per hpf (None-Few); Hyaline Casts,Urine Moderate per lpf (None-Few); Mucus,Urine Moderate (Few)
[2019-07-09] MEDS ORDERED: 0.9 % Sodium Chloride 1,000 ML IVC ONE (22:42)
[2019-07-10] MEDS ORDERED: Naloxone 0.4 MG/ML INJ IVP PRN (00:37)
[2019-07-10] MEDS ORDERED: Insulin DETEMIR 100 UNIT/ML X5UNITS SQ ONE (00:59)
[2019-07-10] MEDS ORDERED: Dextrose Gel 15 GM/37.5 ML TUBE PO PRN ×2 (01:00)
[2019-07-10] MEDS ORDERED: *HR* Dextrose 50 % in Water (Syg) 50 ML SYRINGE IVP PRN (01:00)
[2019-07-10] MEDS ORDERED: Vancomycin 1,750 MG in 0.9 % Sodium Chloride 250 ML IVPB SCH (01:00)
[2019-07-10] MEDS ORDERED: D5% in Water 1,000 ML IVC PRN (01:00)
[2019-07-10] MEDS ORDERED: Ipratropium/Albuterol Neb 3 ML IH PRN (01:05)
[2019-07-10 02:12] LABS: Basophils % 0.2 %; Hematocrit 26.8 % (37.5-50.1); Immature Granulocytes % 0.7 % (0-4); Lymphocytes % 2.3 %; Mean Corpuscular HGB Conc 29.9 g/dL (31.6-35.5); Mean Corpuscular Volume 80.2 fL (83.0-100.0); Mean Platelet Volume 8.9 fL (9.4-12.4); Monocytes # 1.3 K/mcL (0.0-1.3); Monocytes % 5.3 %; Neutrophils # 21.7 K/mcL (1.6-8.9); Platelet Count 354 K/mcL (140-400); Red Blood Count 3.34 M/mcL (4.19-5.50); Red Cell Distribution Width 16.3 % (11.5-14.5); Segmented Neutrophils % 91.5 %; White Blood Count 23.7 K/mcL (4.3-11.1)
[2019-07-10 02:13] LABS: INR 1.7
[2019-07-10 02:15] LABS: Basophils # 0.1 K/mcL (0.0-0.2); Lymphocytes # 0.6 K/mcL (0.6-4.6)
[2019-07-10 02:30] LABS: Calcium 8.5 mg/dL (8.6-10.3); Magnesium 2.2 mg/dL (1.6-2.6); Phosphorous 3.3 mg/dL (2.7-4.5)
[2019-07-10] MEDS: Ipratropium/Albuterol Neb 3 ML IH SCH ×4 (04:06→22:44)
[2019-07-10] MEDS: Insulin LISPRO 300 UNITS/3 ML VIAL SQ SCH ×4 (05:39→23:55)
[2019-07-10] MEDS: Piperacillin/Tazobactam 3.375 GM in 0.9 % Sodium Chloride Mini Bag 100 ML IVPB SCH ×3 (05:42→22:54)
[2019-07-10 06:05] LABS: Troponin I 0.05 ng/mL (< 0.04)
[2019-07-10 06:30] LABS: Estimated Average Glucose 197 mg/dl
[2019-07-10] MEDS: Loratadine 10 MG TABLET PO SCH (07:40)
[2019-07-10] MEDS: OXcarbazepine 150 MG TABLET PO SCH ×2 (07:40→20:02)
[2019-07-10 08:46] LABS: Albumin 3.1 g/dL (3.5-5.7); Albumin/Globulin Ratio 0.7 (1.1-2.2); Bilirubin,Direct 0.3 mg/dL (0.0-0.2); Bilirubin,Indirect 0.4 mg/dL (0.0-1.0); Bilirubin,Total 0.7 mg/dL (0.3-1.0); Globulin 4.3 g/dL (2.4-3.5); Total Protein 7.4 g/dL (6.4-8.9)
[2019-07-10] MEDS ORDERED: Lactulose 200 GM, Sodium Chloride IRRigation 700 ML RC SCH (09:00)
[2019-07-10] MEDS ORDERED: Lactulose 200 GM/300 ML (for enema) RC SCH (09:00)
[2019-07-10 12:43] LABS: RBC,Pleural Fluid 0.005 M/mcL
[2019-07-10 13:04] LABS: Acinetobacter baumannii by PCR Not Detected (Not Detect); Candida albicans by PCR Not Detected (Not Detect); Candida glabrata by PCR Not Detected (Not Detect); Candida krusei by PCR Not Detected (Not Detect); Candida parapsilosis by PCR Not Detected (Not Detect); Candida tropicalis by PCR Not Detected (Not Detect); Enterobacter cloacae Cmplx PCR Not Detected (Not Detect); Escherichia coli by PCR Not Detected (Not Detect); Klebsiella oxytoca by PCR Not Detected (Not Detect); Klebsiella pneumoniae by PCR Not Detected (Not Detect); Pseudomonas aeruginosa by PCR Not Detected (Not Detect); Serratia marcescens by PCR Not Detected (Not Detect); Staphylococcus aureus by PCR Not Detected (Not Detect); Staphylococcus by PCR Not Detected (Not Detect); Streptococcus agalactiae(B)PCR Not Detected (Not Detect); Streptococcus by PCR Not Detected (Not Detect); Streptococcus pneumoniae PCR Not Detected (Not Detect); Streptococcus pyogenes (A) PCR Not Detected (Not Detect); blaKPC Carbapenem-Resist Gene Not Detected (Not Detect); mecA Methicillin-Resist Gene Not Detected (Not Detect); vanA/B Vancomycin-Resist Genes Not Detected (Not Detect)
[2019-07-10 13:05] LABS: Enterobacteriaceae by PCR DETECTED (Not Detect); Enterococcus by PCR Not Detected (Not Detect); Proteus by PCR DETECTED (Not Detect)
[2019-07-10 13:30] LABS: Appearance of Pleural Fl Cloudy (Clear)
[2019-07-10 13:41] LABS: Retculocyte # 0.06 M/mcL (0.05-0.10); Reticulocyte % 1.6 % (1.6-2.8)
[2019-07-10 14:06] LABS: % Iron Saturation 6 % (20-55); Iron 14 mcg/dL (65-175); Lactate Dehydrogenase 174 Units/L (140-271); Transferrin 175 mg/dL (203-362)
[2019-07-10 14:18] LABS: Prostate Specific Antigen 6.96 ng/mL (Less than 4.00)
[2019-07-10 14:26] LABS: Ferritin 168 ng/mL (20-250)
[2019-07-10 14:31] LABS: Folate 14.3 ng/mL (3.0-16.0)
[2019-07-10] MEDS ORDERED: Haloperidol Lactate 5 MG/ML VIAL IVP PRN (18:32)
[2019-07-10] MEDS ORDERED: *HR* OxyCODONE Oral Soln 5 MG/5 ML UD.LIQ PO PRN (18:33)
[2019-07-10] MEDS ORDERED: Haloperidol Lactate 5 MG/ML VIAL IVP SCH (20:00)
[2019-07-10] MEDS ORDERED: risperiDONE 1 MG TABLET PO SCH (21:00)
[2019-07-10] MEDS ORDERED: traZODone 50 MG TABLET PO SCH (21:00)
[2019-07-11] MEDS: Ipratropium/Albuterol Neb 3 ML IH SCH ×2 (04:49→11:18)
[2019-07-11] MEDS: Insulin LISPRO 300 UNITS/3 ML VIAL SQ SCH (06:25)
[2019-07-11] MEDS: Piperacillin/Tazobactam 3.375 GM in 0.9 % Sodium Chloride Mini Bag 100 ML IVPB SCH (06:28)
[2019-07-11] MEDS ORDERED: Haloperidol Lactate 5 MG/ML VIAL IVP ONE (07:45)
[2019-07-11] MEDS: OXcarbazepine 150 MG TABLET PO SCH (07:53)
[2019-07-11] MEDS: Loratadine 10 MG TABLET PO SCH (07:54)
[2019-07-11 08:02] VITALS: BP 136/68
[2019-07-11] MEDS ORDERED: Aminoglycoside Consult 1 EACH MC ONE (13:36)
[2019-07-12 11:26] LABS: Kappa Qnt Free Light Chains 24.3 mg/dL (0.33-1.94); Lambda Qnt Free Light Chains 11.4 mg/dL (0.57-2.63)
[2019-07-14 06:34] LABS: Beta Globulin (PEP) 0.92 g/dL (0.48-1.10)
[2019-07-14 10:10] LABS: IFE Reflexed IFE Done; Immunoglobulin A 478 mg/dL (68-408); Immunoglobulin G 2290 mg/dL (768-1632); Immunoglobulin M 92 mg/dL (35-263)
== END 2019-07-11 13:37 | disposition hospice, inpatient (51) | DRG 871 ==
LOC: 2NNU 20:22 → EMEROOARM 20:22 → 2NNU 23:40 → SUATTDRO 07-10 02:04
PROVIDERS: ADMIT Internal Medicine; ATTEND Internal Medicine

== ENCOUNTER 2019-08-04 10:59 | Inpatient (IN) ==
[2019-08-04 11:39] LABS: Basophils % 0.2 %; Eosinophils # 0.1 K/mcL (0.0-0.6); Eosinophils % 0.5 %; Hematocrit 27.9 % (37.5-50.1); Hemoglobin 8.4 g/dL (12.9-16.9); Immature Granulocytes % 0.6 % (0-4); Lymphocytes # 0.4 K/mcL (0.6-4.6); Lymphocytes % 2.9 %; Mean Corpuscular HGB Conc 30.1 g/dL (31.6-35.5); Mean Corpuscular Volume 76.4 fL (83.0-100.0); Monocytes # 0.9 K/mcL (0.0-1.3); Monocytes % 7.2 %; Neutrophils # 11.3 K/mcL (1.6-8.9); Platelet Count 395 K/mcL (140-400); Red Blood Count 3.65 M/mcL (4.19-5.50); Red Cell Distribution Width 17.9 % (11.5-14.5); Segmented Neutrophils % 88.6 %; White Blood Count 12.8 K/mcL (4.3-11.1)
[2019-08-04 11:45] LABS: Prothrombin Time 22.5 Seconds (9.4-12.1)
[2019-08-04 11:47] LABS: Activated Partial Thrombo Time 34.3 Seconds (26.0-36.0)
[2019-08-04 12:01] LABS: Bilirubin,Urine Negative (Negative); Blood,Urine Small (Negative); Color,Urine Yellow (Yellow); Glucose,Urine (UA) Normal (Normal); Ketones,Urine Negative (Negative); Leukocyte Esterase,Urine Moderate (Negative); Nitrite,Urine Negative (Negative); Protein,Urine Trace mg/dL (Neg-Trace); Specific Gravity,Urine 1.015 (1.010-1.025); Urobilinogen,Urine Normal (Normal)
[2019-08-04 12:03] LABS: Albumin 2.9 g/dL (3.5-5.7); Albumin/Globulin Ratio 0.6 (1.1-2.2); Bilirubin,Direct 0.2 mg/dL (0.0-0.2); Bilirubin,Indirect 0.3 mg/dL (0.0-1.0); Bilirubin,Total 0.5 mg/dL (0.3-1.0); Calcium 8.5 mg/dL (8.6-10.3); Globulin 4.5 g/dL (2.4-3.5); Potassium 4.4 mEq/L (3.5-5.1); Total Protein 7.4 g/dL (6.4-8.9)
[2019-08-04 12:04] LABS: Bacteria,Urine None Seen per hpf (None-Few); Squamous Epithelial Cell,Urine Many per lpf (None-Few)
[2019-08-04 12:05] LABS: Clarity,Urine Slightly Hazy (Clear)
[2019-08-04 12:08] LABS: Troponin I 0.06 ng/mL (< 0.04)
[2019-08-04 12:12] LABS: Hyaline Casts,Urine Many per lpf (None-Few)
[2019-08-04 12:21] LABS: Amphetamine Screen,Urine Negative ng/mL (Cutoff=1000); Barbiturate Screen,Urine Negative ng/mL (Cutoff=200); Benzodiazepines Screen,Urine Negative ng/mL (Cutoff=200); Cannabinoid Screen,Urine Negative ng/mL (Cutoff = 50); Cocaine Screen,Urine Negative ng/mL (Cutoff= 300); Opiate Screen,Urine Positive ng/mL (Cutoff=300); Phencyclidine Screen,Urine Negative ng/mL (Cutoff=25)
[2019-08-04] MEDS ORDERED: Lido/Epi/Tetra Gel 2 ML SYRINGE TP ONE (12:44)
[2019-08-04] MEDS ORDERED: Piperacillin/Tazobactam 3.375 GM in 0.9 % Sodium Chloride Mini Bag 100 ML IVPB ONE ×2 (13:05→13:20)
[2019-08-04 13:32] LABS: ABG Base Excess 4 mEq/L (-2 to 3); ABG HCO3 28 mEq/L (21-27); ABG Oxygen Saturation 96 % (95-98); ABG PCO2 41 mmHg (35-45); ABG PH 7.44 pH Units (7.32-7.45); ABG PO2 79 mmHg (85-104); ABG TCO2 29 mEq/L (20-26)
[2019-08-04] MEDS ORDERED: Ondansetron 4 MG/2 ML VIAL IVP PRN (16:50)
[2019-08-04] MEDS ORDERED: Naloxone 0.4 MG/ML INJ IVP PRN (16:50)
[2019-08-04] MEDS ORDERED: Vancomycin 1,750 MG in 0.9 % Sodium Chloride 250 ML IVPB SCH (17:00)
[2019-08-04] MEDS ORDERED: *HR* Promethazine 25 MG/ML VIAL IVP ONE (19:52)
[2019-08-04] MEDS ORDERED: Haloperidol Lactate 5 MG/ML VIAL IVP ONE (19:52)
[2019-08-04] MEDS: Piperacillin/Tazobactam 3.375 GM in 0.9 % Sodium Chloride Mini Bag 100 ML IVPB SCH (20:16)
[2019-08-05] MEDS: Piperacillin/Tazobactam 3.375 GM in 0.9 % Sodium Chloride Mini Bag 100 ML IVPB SCH ×4 (02:18→23:49)
[2019-08-05] MEDS ORDERED: Atropine Sulfate 1% 40 DROP/2 ML BOTTLE SL PRN (07:47)
[2019-08-05] MEDS ORDERED: Ipratropium/Albuterol Neb 3 ML IH PRN (07:52)
[2019-08-05] MEDS ORDERED: Ketorolac 15 MG/ML VIAL IVP ONE (08:49)
[2019-08-05] MEDS: *HR* LORazepam 2 MG/ML VIAL IVP PRN ×4 (08:49→23:49)
[2019-08-05 09:08] LABS: Hematocrit 27.2 % (37.5-50.1); Hemoglobin 8.2 g/dL (12.9-16.9); Mean Corpuscular HGB Conc 30.1 g/dL (31.6-35.5); Mean Corpuscular Hemoglobin 23.2 pg (28.0-33.3); Mean Corpuscular Volume 76.8 fL (83.0-100.0); Mean Platelet Volume 9.1 fL (9.4-12.4); Platelet Count 377 K/mcL (140-400); Red Blood Count 3.54 M/mcL (4.19-5.50); Red Cell Distribution Width 18.1 % (11.5-14.5); White Blood Count 11.9 K/mcL (4.3-11.1)
[2019-08-05 09:24] LABS: BUN/Creatinine Ratio 35 (6-26); Blood Urea Nitrogen 44 mg/dL (8-23); Calcium 8.4 mg/dL (8.6-10.3); Carbon Dioxide 26 mEq/L (23-29); Chloride 100 mEq/L (98-107); Glucose 162 mg/dL (70-105); Magnesium 2.4 mg/dL (1.6-2.6); Osmolality,Calculated 301 (280-300); Potassium 3.7 mEq/L (3.5-5.1); Sodium 138 mEq/L (136-145); eGFR For African Americans > 60 (> 60); eGFR For Non-African Americans 56 (> 60)
[2019-08-05] MEDS: Haloperidol Lactate 5 MG/ML VIAL IVP PRN (10:46)
[2019-08-05] MEDS: Morphine Sulfate Oral CONC 10 MG/0.5 ML ORAL.SYG SL PRN ×4 (13:32→23:12)
[2019-08-05] MEDS: risperiDONE 1 MG TABLET PO SCH ×2 (13:37→19:59)
[2019-08-05] MEDS: OXcarbazepine 150 MG TABLET PO SCH ×2 (13:37→19:59)
[2019-08-05] MEDS: traZODone 50 MG TABLET PO SCH ×2 (13:37→19:59)
[2019-08-05] MEDS: Sennosides 8.6 MG TABLET PO SCH (13:37)
[2019-08-05] MEDS ORDERED: Melatonin 3 MG TABLET PO SCH (21:00)
[2019-08-06] MEDS: Morphine Sulfate Oral CONC 10 MG/0.5 ML ORAL.SYG SL PRN ×2 (04:45→10:11)
[2019-08-06] MEDS: OXcarbazepine 150 MG TABLET PO SCH (08:38)
[2019-08-06] MEDS: Sennosides 8.6 MG TABLET PO SCH (08:38)
[2019-08-06] MEDS: traZODone 50 MG TABLET PO SCH (08:38)
[2019-08-06] MEDS: risperiDONE 1 MG TABLET PO SCH (08:38)
[2019-08-06] MEDS: Piperacillin/Tazobactam 3.375 GM in 0.9 % Sodium Chloride Mini Bag 100 ML IVPB SCH ×2 (08:39→15:39)
[2019-08-06] MEDS: Haloperidol Lactate 5 MG/ML VIAL IVP PRN (08:39)
[2019-08-06] MEDS ORDERED: Haloperidol Oral Conc 10 MG/5 ML UDC PO ONE (10:00)
[2019-08-06] MEDS: *HR* LORazepam 2 MG/ML VIAL IVP PRN ×2 (10:10→15:39)
[2019-08-06 14:12] VITALS: BP 137/73
[2019-08-06] MEDS ORDERED: Haloperidol Oral Conc 10 MG/5 ML UDC PO SCH (16:00)
[2019-08-06] MEDS ORDERED: Aminoglycoside Consult 1 EACH MC ONE (17:41)
== END 2019-08-06 17:42 | disposition hospice, inpatient (51) | DRG 199 ==
LOC: 3ANU 10:59 → EMEROOARM 10:59 → SUATTDRO 15:45 → 3ANU 16:10
PROVIDERS: ADMIT Internal Medicine; ATTEND Internal Medicine